=== PATIENT | female | born 1950 | race Caucasian/White ===

== ENCOUNTER 2016-11-29 13:23 | Inpatient (IN) | payer OTHER ==
[~2016-11-29] VITALS: Ht 160 cm; Wt 94.6 kg
[~2016-11-29 13:23] MED LIST: CARV3.122 PO; CLOP1TAB15 PO; DVN80 PO; FENO160T PO; FISH1CAP3 PO; INSU100I2 SC; INSUINJ4 SQ; NRV5 PO; ROSU40TA PO; TRIATAB3 PO
[2016-11-29] MEDS ORDERED: ACETAMINOPHEN 500 MG TAB PO STA ×2 (14:28→14:33)
[2016-11-29] MEDS ORDERED: ONDANSETRON INJ 2 MG/ML 2 ML VIAL IV STA (14:28)
[2016-11-29] MEDS ORDERED: NITROGLYCERIN OINT 2% 1GM PACKET EXT STA (14:33)
--- NOTE | 2016-11-29 14:51 | DIAGNOSTIC IMAGING REPORT ---
SINGLE VIEW CHEST CLINICAL HISTORY: Dyspnea. FINDINGS: An AP, portable, upright chest radiograph is compared to study dated 05/23/2016 and correlated with chest CT dated 07/28/2010. The examination is degraded by portable technique and patient rotation. The heart is top normal for projection and there is atherosclerotic calcification of the thoracic aorta. The pulmonary vasculature is noncongested. Emphysema and chronic interstitial thickening is similar to previous. No airspace consolidation, large pleural effusion, or pneumothorax is seen. There is minimal left basilar atelectasis. The skeletal structures are osteopenic. The bony thorax is grossly intact. IMPRESSION: Emphysema with no acute cardiopulmonary abnormality. Electronically signed by: Carlos A Nazario M.D. 11/29/2016 2:49 PM Dictated Date/Time: 11/29/2016 2:47 PM
[2016-11-29] MEDS ORDERED: OPTIRAY 320 IV PRN (15:00)
[2016-11-29 15:02] LABS: BASO % 0.2 %; BASO ABS # 0.02 K/uL (0-0.2); COMPLETE YES; EOS % 4.4 %; HEMATOCRIT 39.4 % (37-47); IG% 0.2 %; LYMPH % 12.8 %; LYMPH ABS # 1.32 K/uL (1.2-3.4); MEAN CELL VOLUME 82.6 fL (80-100); MEAN CORPUSCULAR HEMOGLOBIN 27.7 pg (25-34); MEAN CORPUSCULAR HGB CONC 33.5 g/dl (32-36); MEAN PLATELET VOLUME 11.7 fL (7.4-10.4); NEUT % 75.4 %; PLATELET COUNT 281 K/uL (130-400); RED BLOOD COUNT 4.77 M/uL (4.2-5.4); WHITE BLOOD COUNT 10.34 K/uL (4.8-10.8)
[2016-11-29 15:13] LABS: INR 1.1 (0.9-1.1); PARTIAL THROMBOPLASTIN RATIO 1.1; PROTHROMBIN TIME (PATIENT) 11.6 SECONDS (9.0-12.0)
[2016-11-29 15:19] LABS: BUN/CREATININE RATIO 29.9 (10-20); CALCIUM 9.3 mg/dl (8.5-10.1); CREATININE 1.8 mg/dl (0.60-1.20); POTASSIUM 4.1 mmol/L (3.5-5.1)
[2016-11-29] MEDS ORDERED: CARV3.122 PO (15:25)
[2016-11-29] MEDS ORDERED: INSU1.2I SQ (15:25)
[2016-11-29] MEDS ORDERED: DVN/160 PO (15:25)
[2016-11-29] MEDS ORDERED: HydrALAZINE HCL 20 MG/ML VIAL IV STA (15:33)
[2016-11-29 15:57] LABS: ALB/GLOB RATIO 0.7 (0.9-2)
[2016-11-29] MEDS ORDERED: NITROGLYCERIN 0.4 MG SL PER TAB CHARGE SL PRN (17:15)
[2016-11-29] MEDS ORDERED: ONDANSETRON INJ 2 MG/ML 2 ML VIAL IV PRN (17:15)
[2016-11-29] MEDS ORDERED: MoRPHine SULFATE 2 MG/ML CARP IV PRN (17:15)
[2016-11-29] MEDS ORDERED: POLYETHYLENE (MIRALAX) 17 GM PACK PO PRN (17:15)
[2016-11-29] MEDS ORDERED: ZOLPIDEM TARTRATE 5 MG TAB PO PRN (17:15)
--- NOTE | 2016-11-29 17:25 | EMERGENCY ROOM VISIT NOTE ---
History Report prepared by Fawn: David Lagos Under the Supervision of: Dr. Carlos A Johnson M.D. First contact with patient: 13:48 Chief Complaint: SHORTNESS OF BREATH Stated Complaint: SHORTNESS OF BREATH Nursing Triage Summary: pt arrived als from home reported sob with cough non productive in route pt developed upper gastric pain/ pt denies History of Present Illness The patient is a 66 year old female with a history of anxiety who presents to the Emergency Room via ambulance with complaints of persistent shortness of breath for the past two days. Today she is unable to lay flat. The patient has noticed increased shortness of breath with exertion. The patient also complains of coughing episodes that produce some phlegm for the past 1.5 weeks. She has not noticed increased leg swelling. She denies chest pain but notes a small area of pressure in her chest, which is worse when she pushes on it. The patient became nauseous en route to the ED. The patient denies any fevers, chills, vomiting, or urinary symptoms. The patient does not wear oxygen at home. The patient had an echocardiogram years ago in [place]. The patient had an ME in the past, which her current symptoms do not resemble. The patient has a history of hypertension. She did not miss her medications this morning. The patient has not had Nitroglycerin recently. She has a left renal artery stent. Source of History: patient Onset: yesterday Position: other (respiratory) Quality: other (short of breath) Timing: other (persistent) Modifying Factors (Worsening): exertion, other (laying flat) Associated Symptoms: + chest pain, + cough, + nausea, No chills, No fevers, No urinary symptoms, No vomiting Review of Systems See HPI for pertinent positives & negatives. A total of 10 systems reviewed and were otherwise negative. Past Medical & Surgical Medical Problems: (1) Chronic kidney disease (2) Diabetes mellitus (3) DVT prophylaxis (4) Hypertension Family History FH: heart disease Social History Smoking Status: Former Smoker Marital Status: Housing Status: lives with family Occupation Status: unemployed Current/Historical Medications Scheduled Carvedilol (Coreg), 3.125 MG PO BID Clopidogrel (Plavix), 75 MG PO DAILY Fenofibrate (Tricor), 160 MG PO DAILY Fish Oil-Cholecalciferol (Fish Oil + D3), 1 CAP PO DAILY Insulin Glargine (Toujeo Solostar), 16 UNITS SQ DAILY Rosuvastatin Calcium (Crestor), 40 MG PO HS Triamterene/Hctz (Triamterene/Hctz 37.5-25MG), 1 TAB PO DAILY Valsartan (Diovan), 160 MG PO DAILY Scheduled PRN Insulin Lispro (Human) (Humalog Kwikpen), UNITS SC UD PRN for BSG Coverage Allergies Coded Allergies: Penicillins (Verified Allergy, Mild, 11/29/16) Sulfa Drugs (Verified Allergy, Mild, RASH, 11/29/16) Meperidine (Verified Adverse Reaction, Intermediate, hallucinates, 11/29/16) Lisinopril (Unverified Adverse Reaction, Unknown, COUGHING, 11/29/16) Physical Exam Vital Signs Date Time Temp Pulse Resp B/P Pulse Ox O2 Delivery O2 Flow Rate FiO2 11/29/16 17:14 167/70 11/29/16 17:10 174/83 11/29/16 17:09 69 14 11/29/16 17:04 63/42 11/29/16 16:59 157/58 11/29/16 16:54 145/59 11/29/16 16:49 146/53 11/29/16 16:44 128/67 11/29/16 16:39 68 28 135/69 96 11/29/16 16:34 148/58 11/29/16 16:29 125/53 11/29/16 16:23 124/51 11/29/16 16:19 120/56 11/29/16 16:16 94 Nasal Cannula 2.0 11/29/16 16:15 119/59 11/29/16 16:14 124/53 11/29/16 16:09 71 22 94 11/29/16 16:09 94 2.0 11/29/16 16:04 70 14 124/61 97 11/29/16 15:59 69 19 140/51 95 11/29/16 15:54 70 18 161/54 96 11/29/16 15:51 152/61 11/29/16 15:49 66 19 169/67 96 11/29/16 15:44 64 20 189/71 96 11/29/16 15:39 64 18 96 11/29/16 15:34 65 22 96 11/29/16 15:29 207/82 11/29/16 15:28 66 19 96 11/29/16 15:23 67 24 97 11/29/16 15:18 66 20 98 11/29/16 15:14 245/115 11/29/16 15:13 73 18 98 11/29/16 15:08 64 18 97 11/29/16 15:03 68 18 98 11/29/16 14:59 237/99 11/29/16 14:58 71 23 97 11/29/16 14:55 233/78 11/29/16 14:43 68 23 94 11/29/16 14:38 72 23 94 11/29/16 14:35 229/98 11/29/16 14:33 69 20 95 11/29/16 14:28 68 21 93 11/29/16 14:23 69 19 94 11/29/16 14:18 70 20 95 11/29/16 14:13 68 24 93 11/29/16 14:08 70 20 94 11/29/16 14:03 70 27 94 11/29/16 13:58 72 20 242/89 94 11/29/16 13:53 73 17 93 11/29/16 13:48 72 17 95 11/29/16 13:43 69 11/29/16 13:43 71 25 93 11/29/16 13:37 36.8 73 20 217/91 93 Room Air 11/29/16 13:33 217/91 Physical Exam GENERAL: Patient is in no acute distress. HEENT: No acute trauma, normocephalic atraumatic, mucous membranes moist, no nasal congestion, no scleral icterus. NECK: No stridor, no adenopathy, no meningismus, trachea is midline. LUNGS: Clear to auscultation bilaterally, no wheeze, no rhonchi, breath sounds equal. HEART: Without murmurs gallops or rubs, regular rate and rhythm. ABDOMEN: Soft, nontender, bowel sounds positive, no hernias, no peritonitis. EXTREMITIES: No cyanosis or edema, full range of motion of all the joints without pain or difficulty, no signs for acute trauma. NEUROLOGIC: Oriented x 3, no acute motor or sensory deficits, no focal weakness. SKIN: No rash, no jaundice, no diaphoresis. Medical Decision & Procedures ER Provider Diagnostic Interpretation: X ray results and stated below per my interpretation and radiologist interpretation. Other radiology results and stated below per my review and radiologist interpretation: SINGLE VIEW CHEST CLINICAL HISTORY: Dyspnea. FINDINGS: An AP, portable, upright chest radiograph is compared to study dated 05/23/2016 and correlated with chest CT dated 07/28/2010. The examination is degraded by portable technique and patient rotation. The heart is top normal for projection and there is atherosclerotic calcification of the thoracic aorta. The pulmonary vasculature is noncongested. Emphysema and chronic interstitial thickening is similar to previous. No airspace consolidation, large pleural effusion, or pneumothorax is seen. There is minimal left basilar atelectasis. The skeletal structures are osteopenic. The bony thorax is grossly intact. IMPRESSION: Emphysema with no acute cardiopulmonary abnormality. Electronically signed by: Carlos A Nazario M.D. 11/29/2016 2:49 PM Dictated Date/Time: 11/29/2016 2:47 PM Laboratory Results 11/29/16 14:50 Red Blood Count 4.77, Mean Corpuscular Volume 82.6, Mean Corpuscular Hemoglobin 27.7, Mean Corpuscular Hemoglobin Concent 33.5, Mean Platelet Volume 11.7, Neutrophils (%) (Auto) 75.4, Lymphocytes (%) (Auto) 12.8, Monocytes (%) (Auto) 7.0, Eosinophils (%) (Auto) 4.4, Basophils (%) (Auto) 0.2, Neutrophils # (Auto) 7.80, Lymphocytes # (Auto) 1.32, Monocytes # (Auto) 0.72, Eosinophils # (Auto) 0.46, Basophils # (Auto) 0.02 11/29/16 14:50 Test 11/29/16 14:50 White Blood Count 10.34 K/uL (4.8-10.8) Red Blood Count 4.77 M/uL (4.2-5.4) Hemoglobin 13.2 g/dL (12.0-16.0) Hematocrit 39.4 % (37-47) Mean Corpuscular Volume 82.6 fL (80-100) Mean Corpuscular Hemoglobin 27.7 pg (25-34) Mean Corpuscular Hemoglobin Concent 33.5 g/dl (32-36) Platelet Count 281 K/uL (130-400) Mean Platelet Volume 11.7 fL (7.4-10.4) Neutrophils (%) (Auto) 75.4 % Lymphocytes (%) (Auto) 12.8 % Monocytes (%) (Auto) 7.0 % Eosinophils (%) (Auto) 4.4 % Basophils (%) (Auto) 0.2 % Neutrophils # (Auto) 7.80 K/uL (1.4-6.5) Lymphocytes # (Auto) 1.32 K/uL (1.2-3.4) Monocytes # (Auto) 0.72 K/uL (0.11-0.59) Eosinophils # (Auto) 0.46 K/uL (0-0.5) Basophils # (Auto) 0.02 K/uL (0-0.2) RDW Standard Deviation 42.6 fL (36.4-46.3) RDW Coefficient of Variation 14.2 % (11.5-14.5) Immature Granulocyte % (Auto) 0.2 % Immature Granulocyte # (Auto) 0.02 K/uL (0.00-0.02) Prothrombin Time 11.6 SECONDS (9.0-12.0) Prothromb Time International Ratio 1.1 (0.9-1.1) Activated Partial Thromboplast Time 28.1 SECONDS (21.0-31.0) Partial Thromboplastin Ratio 1.1 Anion Gap 9.0 mmol/L (3-11) Est Creatinine Clear Calc Drug Dose 33.8 ml/min Estimated GFR () 33.4 Estimated GFR (Non- 28.8 BUN/Creatinine Ratio 29.9 (10-20) Calcium Level 9.3 mg/dl (8.5-10.1) Total Bilirubin 0.4 mg/dl (0.2-1) Aspartate Amino Transf (AST/SGOT) 17 U/L (15-37) Alanine Aminotransferase (ALT/SGPT) 22 U/L (12-78) Alkaline Phosphatase 74 U/L (45-117) Troponin I 0.046 ng/ml (0-0.045) Pro-B-Type Natriuretic Peptide 3492 pg/ml (0-900) Total Protein 8.0 gm/dl (6.4-8.2) Albumin 3.3 gm/dl (3.4-5.0) Globulin 4.7 gm/dl (2.5-4.0) Albumin/Globulin Ratio 0.7 (0.9-2) Laboratory results reviewed by me. Medications Administered Medications (Trade) Dose Ordered Sig/Isaías Route Start Time Stop Time Status Last Admin Dose Admin Acetaminophen (Tylenol Tab) 1,000 mg NOW STAT PO 11/29/16 14:28 11/29/16 14:33 DC 11/29/16 14:28 1,000 MG Ondansetron HCl (Zofran Inj) 4 mg NOW STAT IV 11/29/16 14:28 11/29/16 14:34 DC 11/29/16 14:28 4 MG Nitroglycerin (Nitroglycerin 2% Oint) 1 inch NOW STAT EXT 11/29/16 14:33 11/29/16 14:34 DC 11/29/16 14:33 1 INCH Hydralazine HCl (HydrALAZINE INJ) 10 mg NOW STAT IV 11/29/16 15:33 11/29/16 15:34 DC 11/29/16 15:43 10 MG ECG Indication: SOB/dyspnea Rate (beats per minute): 72 Rhythm: normal sinus Findings: no ectopy, other (LVH) Comparison ECG Date: 25 May 2016 Change: no significant change Change: Unchanged from 25 May 2016. ED Course 1355: The patient was evaluated by my medical student. 1424: The patient was evaluated in room C11b. A complete history and physical exam was performed. 1428: Zofran 4 mg IV, Tylenol 1000 mg PO. 1433: Nitroglycerin 2% 1 inch EXT. 1533: Hydralazine 10 mg IV. 1539: The patient is doing fine. Her blood pressure has improved. 1620: Discussed the case with the [facility]. The patient will be evaluated. 1630: Updated the patient. She verbalized understanding and agreement of the treatment plan. Medical Decision Differential diagnosis includes CHF, acute bronchitis, pneumonia, pneumothorax, cardiac ischemia, ME, anemia, electrolyte imbalance, PE. There is no leukocytosis or worrisome anemia. Renal panel testing shows renal insufficiency but this is baseline. There is no hepatitis or coagulopathy. EKG shows a normal sinus rhythm with LVH, there is a very mild elevation to the cardiac troponin, this could be consistent with cardiac injury or strain. Chest x-ray does not show pneumonia or obvious CHF. BNP is elevated which would be consistent with fluid overload. The patient was given nitro paste, she was given IV hydralazine. She received oral Tylenol. The patient's blood pressure did come down and the nitroglycerin paste was removed. She was given a small amount of IV saline, 250 mL. The patient presents with shortness of breath and some chest pressure. She has a mild elevation to her cardiac troponin. Her blood pressure was high but is now controlled since being medicated. Given the circumstances, admission/ observation is warranted. I spoke with her and case management. The on-call hospitalist was consulted. Consults Time Called: 1615 Consulting Physician: [facility] Returned Call: [phone]: Discussed the case with [facility]. The patient will be evaluated. Impression Primary Impression: SOB (shortness of breath) Additional Impressions: Elevated troponin Precordial chest pain Scribe Attestation The scribe's documentation has been prepared under my direction and personally reviewed by me in its entirety. I confirm that the note above accurately reflects all work, treatment, procedures, and medical decision making performed by me. Departure Information Dispostion Being Evaluated By Hospitalist Referrals Shay Hammond M.D. (PCP) Patient Instructions My [facility] Problem Qualifiers
--- NOTE | 2016-11-29 18:20 | History and Physical ---
History & Physical Date & Time of Service: Nov 29, 2016 at 17:35 Chief Complaint: Shortness Of Breath Primary Care Physician: Shay Hammond M.D. History of Present Illness Source: patient, family Ms. Mcnulty is a 66yo female with a history of CAD s/p PCI with stent in 2009 as well as uncontrolled hypertension and previous renal artery stenting. She was most recently admitted here in April 2016 with a hypertensive emergency. She presented to the ER today complaining of exertional dyspnea and non-productive cough. She says that she actually felt unwell the past couple days. She said she had a sore throat prior to the onset of her shortness of breath. She says the dyspnea initially began with her feeling that she "was slowing down." She also describes having palpitations over the past few days. She denies having any chest pain or discomfort. Today, it became much worse. Even just walking down her hallway, she felt severely dyspneic and felt there "was water in my lungs." On arrival to the ER, she was noted to be hypertensive, with a BP as high as 245/115. Her initial labs were significant for a mildly elevated troponin and an elevated pro-BNP. CXR was read by radiology as showing no pulmonary vascular congestion. She was started on nitroglycerin paste without significant improvement in her symptoms or blood pressure. She was then given IV hydralazine and her blood pressure dropped to as low as 124/61 over the course of an hour. She was then started on a 250cc crystalloid bolus. On my interview, she is complaining of a discomfort in her chest on the left side, which she says is deep inside and "feels like something's not working right." She reports that this feeling is improved with belching and worse with deep breathing. At this point, she is being admitted for further evaluation. 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[email or web address]) Immunizations History of Influenza Vaccine: Yes History of Tetanus Vaccine?: Yes History of Pneumococcal: Yes History of Hepatitis B Vaccine: Unknown Multi-Drug Resistant Organisms History of MDRO: No Allergies Coded Allergies: Penicillins (Verified Allergy, Mild, 2/2/17) Sulfa Drugs (Verified Allergy, Mild, RASH, 11/29/16) Meperidine (Verified Adverse Reaction, Intermediate, hallucinates, 11/29/16) Lisinopril (Unverified Adverse Reaction, Unknown, COUGHING, 11/29/16) Home Medications Scheduled Carvedilol (Coreg), 3.125 MG PO BID Clopidogrel (Plavix), 75 MG PO DAILY Fenofibrate (Tricor), 160 MG PO DAILY Fish Oil-Cholecalciferol (Fish Oil + D3), 1 CAP PO DAILY Insulin Glargine (Toujeo Solostar), 16 UNITS SQ DAILY Rosuvastatin Calcium (Crestor), 40 MG PO HS Triamterene/Hctz (Triamterene/Hctz 37.5-25MG), 1 TAB PO DAILY Valsartan (Diovan), 160 MG PO DAILY Scheduled PRN Insulin Lispro (Human) (Humalog Kwikpen), UNITS SC UD PRN for BSG Coverage Review of Systems Constitutional: No chills, No fever, No sweats Eyes: No problem reported ENT: + sore throat Respiratory: + cough, + dyspnea on exertion, No sputum, No wheezing Cardiovascular: + palpitations, No chest pain, No edema Abdomen: No nausea, No pain, No vomiting Musculoskeletal: No problem reported Genitourinary - Female: No problem reported Neurologic: No numbness/tingling, No weakness Psychiatric: + anxiety (Describes always having a high stress level in her life ) Endocrine: No problem reported Hematologic / Lymphatic: No problem reported Integumentary: No problem reported Physical Exam Vital Signs Date Time Temp Pulse Resp B/P Pulse Ox O2 Delivery O2 Flow Rate FiO2 11/29/16 16:16 94 Nasal Cannula 2.0 11/29/16 16:09 94 2.0 11/29/16 16:04 70 14 124/61 97 11/29/16 15:59 69 19 140/51 95 11/29/16 15:54 70 18 161/54 96 11/29/16 15:51 152/61 11/29/16 15:49 66 19 169/67 96 11/29/16 15:44 64 20 189/71 96 11/29/16 15:39 64 18 96 11/29/16 15:34 65 22 96 11/29/16 15:29 207/82 11/29/16 15:28 66 19 96 11/29/16 15:23 67 24 97 11/29/16 15:18 66 20 98 11/29/16 15:14 245/115 11/29/16 15:13 73 18 98 11/29/16 15:08 64 18 97 11/29/16 15:03 68 18 98 11/29/16 14:59 237/99 11/29/16 14:58 71 23 97 11/29/16 14:55 233/78 11/29/16 14:43 68 23 94 11/29/16 14:38 72 23 94 11/29/16 14:35 229/98 11/29/16 14:33 69 20 95 11/29/16 14:28 68 21 93 11/29/16 14:23 69 19 94 11/29/16 14:18 70 20 95 11/29/16 14:13 68 24 93 11/29/16 14:08 70 20 94 11/29/16 14:03 70 27 94 11/29/16 13:58 72 20 242/89 94 11/29/16 13:53 73 17 93 11/29/16 13:48 72 17 95 11/29/16 13:43 69 11/29/16 13:43 71 25 93 11/29/16 13:37 36.8 73 20 217/91 93 Room Air 11/29/16 13:33 217/91 General Appearance: no apparent distress Eyes: PERRL, sclerae normal ENT: normal ENT inspection Neck: no JVD, no carotid bruits Respiratory/Chest: lungs clear, no respiratory distress Cardiovascular: regular rate, rhythm, no murmur Abdomen/GI: normal bowel sounds, non tender, soft, + pertinent finding (NO abdominal bruit appreciated) Extremities/Musculoskelatal: normal capillary refill, no pedal edema Neurologic/Psych: alert, oriented x 3 Skin: normal color, warm/dry Diagnostics Laboratory Results Results Past 24 Hours Test 11/29/16 14:50 11/29/16 17:20 Range/Units White Blood Count 10.34 4.8-10.8 K/uL Red Blood Count 4.77 4.2-5.4 M/uL Hemoglobin 13.2 12.0-16.0 g/dL Hematocrit 39.4 37-47 % Mean Corpuscular Volume 82.6 80-100 fL Mean Corpuscular Hemoglobin 27.7 25-34 pg Mean Corpuscular Hemoglobin Concent 33.5 32-36 g/dl Platelet Count 281 130-400 K/uL Mean Platelet Volume 11.7 7.4-10.4 fL Neutrophils (%) (Auto) 75.4 % Lymphocytes (%) (Auto) 12.8 % Monocytes (%) (Auto) 7.0 % Eosinophils (%) (Auto) 4.4 % Basophils (%) (Auto) 0.2 % Neutrophils # (Auto) 7.80 1.4-6.5 K/uL Lymphocytes # (Auto) 1.32 1.2-3.4 K/uL Monocytes # (Auto) 0.72 0.11-0.59 K/uL Eosinophils # (Auto) 0.46 0-0.5 K/uL Basophils # (Auto) 0.02 0-0.2 K/uL RDW Standard Deviation 42.6 36.4-46.3 fL RDW Coefficient of Variation 14.2 11.5-14.5 % Immature Granulocyte % (Auto) 0.2 % Immature Granulocyte # (Auto) 0.02 0.00-0.02 K/uL Prothrombin Time 11.6 9.0-12.0 SECONDS Prothromb Time International Ratio 1.1 0.9-1.1 Activated Partial Thromboplast Time 28.1 21.0-31.0 SECONDS Partial Thromboplastin Ratio 1.1 Sodium Level 138 136-145 mmol/L Potassium Level 4.1 3.5-5.1 mmol/L Chloride Level 103 98-107 mmol/L Carbon Dioxide Level 26 21-32 mmol/L Anion Gap 9.0 3-11 mmol/L Blood Urea Nitrogen 54 7-18 mg/dl Creatinine 1.80 0.60-1.20 mg/dl Est Creatinine Clear Calc Drug Dose 33.8 ml/min Estimated GFR () 33.4 Estimated GFR (Non- 28.8 BUN/Creatinine Ratio 29.9 10-20 Random Glucose 167 70-99 mg/dl Calcium Level 9.3 8.5-10.1 mg/dl Total Bilirubin 0.4 0.2-1 mg/dl Aspartate Amino Transf (AST/SGOT) 17 15-37 U/L Alanine Aminotransferase (ALT/SGPT) 22 12-78 U/L Alkaline Phosphatase 74 45-117 U/L Troponin I 0.046 0-0.045 ng/ml Pro-B-Type Natriuretic Peptide 3492 0-900 pg/ml Total Protein 8.0 6.4-8.2 gm/dl Albumin 3.3 3.4-5.0 gm/dl Globulin 4.7 2.5-4.0 gm/dl Albumin/Globulin Ratio 0.7 0.9-2 Diagnostic Radiology SINGLE VIEW CHEST CLINICAL HISTORY: Dyspnea. FINDINGS: An AP, portable, upright chest radiograph is compared to study dated 05/23/2016 and correlated with chest CT dated 07/28/2010. The examination is degraded by portable technique and patient rotation. The heart is top normal for projection and there is atherosclerotic calcification of the thoracic aorta. The pulmonary vasculature is noncongested. Emphysema and chronic interstitial thickening is similar to previous. No airspace consolidation, large pleural effusion, or pneumothorax is seen. There is minimal left basilar atelectasis. The skeletal structures are osteopenic. The bony thorax is grossly intact. IMPRESSION: Emphysema with no acute cardiopulmonary abnormality. EKG Normal sinus rhythm Left atrial enlargement Left ventricular hypertrophy with repolarization abnormality Abnormal ECG When compared with ECG of 25-MAY-2016 06:25, Premature atrial complexes are no longer Present Otherwise no significant change Confirmed by BRANDY RODRIGUEZ ([id number]) on 11/29/2016 3:08:43 PM Impression Assessment and Plan (1) Hypertensive emergency Status: Acute Assessment & Plan: Will avoid dropping blood pressure any further at this point. Will place her back on her usual home medications. She has a history of renal artery stenosis s/p stent. Will check renal artery dopplers now to assure not restenosed. Will check plasma metanephrines given repeated episodes of hypertensive urgency. I also had a long discussion with her regarding the need to exclude untreated sleep apnea as a cause for her uncontrolled BP. She had a sleep study in the past suggestive of mild AVELINO and a nocturnal pulse ox study in 04/2016 indicating she needed nocturnal oxygen. Will ask Nephrology to help guide her work up and management. (2) Elevated troponin Status: Acute Assessment & Plan: I suspect this is related to her uncontrolled hypertension. Doubt ACS at this point, but will trend troponins to exclude. Will ask Cardiology to evaluate her as well. She is already on a beta fartun, statin, ARB and Plavix. She is not on aspirin due to severe epistaxis in the past while on both asa and plavix. (3) SOB (shortness of breath) Status: Acute Assessment & Plan: I suspect this is due to uncontrolled hypertension and underlying lung disease. Her pro-BNP is elevated, but she clinically does not appear to have evidence for heart failure. She says she has never been diagnosed with heart failure in the past. She does have a history of smoking in the past, but is not formally diagnosed with COPD. Her previous CXRs are suggestive of chronic lung disease. She doesn't have any evidence for bronchoconstriction on exam that would need to be treated now, but she should have PFTs on an outpatient basis when her acute issues resolve to further elucidate her suspected pulmonary disease. (4) Chronic kidney disease Status: Chronic Assessment & Plan: Cr is 1.8. She appears to have CKD 3, nearly 4, at baseline. If her renal function remains stable overnight, will continue her ARB. She does not follow up with an outpatient manager stars. She is at very high risk of progression with uncontrolled BP and DM. Will ask Nephro to see. (5) Diabetes mellitus Status: Chronic Assessment & Plan: Will substitute Lantus for her usual Toujeo and aspart sliding scale for her usual lispro sliding scale. Pharm consult for glycemic management. (6) DVT prophylaxis Assessment & Plan: SCDs Level of Care Telemetry Resuscitation Status FULL RESUSCITATION VTE Prophylaxis VTE Risk Assessment Done? Y/N: Yes Risk Level: Low Given or contraindicated: SCD's Social Service Consult None Apply Additional Copies To Shay Hammond M.D.
[2016-11-29] MEDS ORDERED: GLUCOSE 10 TABS/TUBE PO PRN (18:45)
[2016-11-29] MEDS ORDERED: GLUCOSE 40% GEL 15 GM TUBE PO PRN (18:45)
[2016-11-29] MEDS ORDERED: DEXTROSE 50% 50 ML SYR IV PRN (18:45)
[2016-11-29] MEDS ORDERED: GLUCAGON FOR INJ 1 MG VIAL SQ PRN (18:45)
[2016-11-29 19:09] VITALS: BP 211/75; PULSE 73; TEMP 36.6; O2SAT 92
[2016-11-29] MEDS ORDERED: PHARMACY GLYCEMIC MGMT CONSULT PRN (19:52)
--- NOTE | 2016-11-29 20:13 | Pharmacy Progress Note ---
Glycemic Control Intl Consult Date of Service Nov 29, 2016. Scope Glycemic Pharmacist consulted by Dr. Danny De Souza on 11/29/16 for glycemic control and to write orders per LTAC, located within [facility] inpatient glycemic control protocol Objective Weight (Kilograms): 95.500 Accuchecks BSG (last 24hrs): Test 11/29/16 14:50 Random Glucose 167 mg/dl (70-99) Laboratory Data (last 24hrs) Test 11/29/16 14:50 Anion Gap 9.0 mmol/L BUN/Creatinine Ratio 29.9 Blood Urea Nitrogen 54 mg/dl Creatinine 1.80 mg/dl Potassium Level 4.1 mmol/L Sodium Level 138 mmol/L White Blood Count 10.34 K/uL Red Blood Count 4.77 M/uL Hemoglobin 13.2 g/dL Hematocrit 39.4 % Mean Corpuscular Volume 82.6 fL Mean Corpuscular Hemoglobin 27.7 pg Mean Corpuscular Hemoglobin Concent 33.5 g/dl Platelet Count 281 K/uL Mean Platelet Volume 11.7 fL Neutrophils (%) (Auto) 75.4 % Lymphocytes (%) (Auto) 12.8 % Monocytes (%) (Auto) 7.0 % Eosinophils (%) (Auto) 4.4 % Basophils (%) (Auto) 0.2 % Neutrophils # (Auto) 7.80 K/uL Lymphocytes # (Auto) 1.32 K/uL Monocytes # (Auto) 0.72 K/uL Eosinophils # (Auto) 0.46 K/uL Basophils # (Auto) 0.02 K/uL Recent Pertinent Medications Outpatient Anti-diabetic Regimen: * Humalog SS + Toujeo 16 units daily * A1c = 7.6 % from 12/30/15 * An updated A1c is ordered with tomorrow's AM labs Risk Factors for Insulin Resistance: * Diet: AHA, will add DM2 subtype to restrict carb intake Assessment & Plan ASSESSMENT: * ADA & AACE recommend a goal blood sugar range 140-180 mg/dl for the majority of critically ill & non-critically ill patients. However, more stringent targets may be selected in individual cases. * 66 yo female admitted with hypertensive emergency. * Will initiate weight based basal/bolus SQ insulin regimen. * Initial dose of Lantus reduced by 20% to account for transition from Toujeo. Further dosing will be adjusted based upon response. PLAN FOR INPATIENT GLYCEMIC CONTROL: * Start Lantus daily: * 7 units for BSG below 110mg/dl * 13 units for BSG 111mg/dl and greater * Novolog ACHS * Set correction factor to 25 mg/dl/unit * Set carb ratio to 1 unit per 8 grams CHO consumed * Set goal range to Low 110 mg/dL - High 150 mg/dL * Please note that the plan above was derived based on current level of insulin resistance and hospital stress. These recommendations are appropriate for inpatient admission only. Plan of care upon discharge will need to be reassessed to avoid potential outpatient hypo/hyperglycemia. Thank you.
[2016-11-29] MEDS ORDERED: COUGH DROP (SUGAR FREE) LOZ 24 LOZ/1 BOX ONE (20:45)
[2016-11-29] MEDS ORDERED: INSULIN GLARGINE SOLOSTAR 100 UNITS/ML 3 ML PEN SC SCH (21:00)
[2016-11-29] MEDS: INSULIN ASPART 100 UNITS/ML 3 ML PEN SC SCH (21:00)
[2016-11-29] MEDS: ROSUVASTATIN CALCIUM 20 MG TAB PO SCH (21:10)
[2016-11-29] MEDS: CARVEDILOL 3.125 MG TAB PO SCH (21:10)
[2016-11-29 22:29] VITALS: BP 211/75; PULSE 73; TEMP 36.6; O2SAT 92; BMI 37.3
[2016-11-29 23:52] VITALS: BP 113/70; PULSE 76; TEMP 36.5; O2SAT 95
[2016-11-30] VITALS (8 sets, daily range): BP systolic 123–221; BP diastolic 68–104; PULSE 63–77; TEMP 36.6–37; O2SAT 92–94; BMI 36.6
[2016-11-30 06:28] LABS: BASO % 0.4 %; BASO ABS # 0.03 K/uL (0-0.2); COMPLETE YES; EOS % 6.3 %; HEMATOCRIT 35.2 % (37-47); IG% 0.3 %; LYMPH % 17.2 %; LYMPH ABS # 1.23 K/uL (1.2-3.4); MEAN CELL VOLUME 82.4 fL (80-100); MEAN CORPUSCULAR HEMOGLOBIN 27.2 pg (25-34); MEAN PLATELET VOLUME 11.1 fL (7.4-10.4); MONO % 8.8 %; PLATELET COUNT 229 K/uL (130-400); RED BLOOD COUNT 4.27 M/uL (4.2-5.4); WHITE BLOOD COUNT 7.15 K/uL (4.8-10.8)
[2016-11-30 06:57] LABS: ESTIMATED AVERAGE GLUCOSE 206 mg/dl; HA1C FLAG Normal (Normal)
[2016-11-30 07:01] LABS: BUN/CREATININE RATIO 31.8 (10-20); CALCIUM 9.2 mg/dl (8.5-10.1); CREATININE 1.7 mg/dl (0.60-1.20); MAGNESIUM 1.9 mg/dl (1.8-2.4)
[2016-11-30 07:07] LABS: PHOSPHORUS 3.4 mg/dl (2.5-4.9)
[2016-11-30] MEDS ORDERED: INSULIN GLARGINE SQ SCH (09:00)
[2016-11-30] MEDS ORDERED: VALSARTAN 80 MG TAB PO SCH (09:00)
[2016-11-30] MEDS ORDERED: TRIAMTERENE/HCTZ 37.5/25MG TAB PO SCH (09:00)
[2016-11-30] MEDS: INSULIN GLARGINE SOLOSTAR 100 UNITS/ML 3 ML PEN SC SCH (09:55)
[2016-11-30] MEDS: INSULIN ASPART 100 UNITS/ML 3 ML PEN SC SCH ×5 (09:55→20:40)
[2016-11-30] MEDS: OMEGA-3 (PURIFIED FISH OIL) 1 GM CAP PO SCH (09:56)
[2016-11-30] MEDS: CLOPIDOGREL BISULFATE 75 MG TAB PO SCH (09:56)
[2016-11-30] MEDS: CARVEDILOL 3.125 MG TAB PO SCH ×2 (10:00→20:41)
--- NOTE | 2016-11-30 10:52 | DIAGNOSTIC IMAGING REPORT ---
DOPPLER ULTRASOUND OF THE RENAL ARTERIES CLINICAL HISTORY: Hypertensive emergency. COMPARISON STUDY: Abdominal CT dated 10/12/2014. TECHNIQUE: Doppler sonography of the renal arteries was performed to assess renal artery stenosis. Images are reviewed in the transverse and longitudinal planes. The Examination is significantly degraded by large body habitus and overlying bowel. FINDINGS: The kidneys demonstrate mild cortical atrophy and are without hydronephrosis. The right kidney measures 10.4 cm in length and the left kidney measures 10.5 cm in length. A 4 cm cyst arises from the right lower pole. On the right, intrarenal arterial resistive indices range from 0.45 to 0.78. Intrarenal arterial waveforms are normal with brisk upstrokes. The right renal artery was not visualized. On the left, intrarenal arterial resistive indices range from 0.56 to 0.71. Intrarenal arterial waveforms are normal with brisk upstrokes. The proximal and mid portions of the left renal artery were not visualized. The imaged distal left renal arterial waveform is normal, and velocities within the left renal artery measure up to 56 cm/sec. The left renal vein is patent. The abdominal aorta is patent. Velocities within the abdominal aorta measure up to 109 cm/s. IMPRESSION: 1. Nondiagnostic assessment of the right renal artery. The right renal artery was not visualized. 2. Visualized portions of the left renal artery are patent with normal velocities. 3. The kidneys demonstrate mild cortical atrophy. Electronically signed by: Carlos A Nazario M.D. 11/30/2016 10:50 AM Dictated Date/Time: 11/30/2016 10:45 AM
--- NOTE | 2016-11-30 11:02 | Hospitalist Progress Note ---
Hospitalist Progress Note Date of Service Nov 30, 2016. Subjective Pt evaluation today including: conversation w/ patient, physical exam, chart review, lab review, review of studies, review of inpatient medication list Pain: c/o headache this AM Denies chest pain/discomfort. Denies SOB but hasn't really been out of bed to exert herself. Medications Current Inpatient Medications Medications (Trade) Dose Ordered Sig/Isaías Route Start Time Stop Time Status Last Admin Dose Admin Ioversol (Optiray 320) 111 ml UD PRN IV 11/29/16 15:00 12/03/16 14:59 Acetaminophen (Tylenol Tab) 650 mg Q4H PRN PO 11/29/16 17:15 12/29/16 17:14 Zolpidem Tartrate (Ambien Tab) 5 mg HSZ PRN PO 11/29/16 17:15 12/29/16 17:14 Ondansetron HCl (Zofran Inj) 4 mg Q6H PRN IV 11/29/16 17:15 12/29/16 17:14 Nitroglycerin (Nitrostat Tab) 0.4 mg UD PRN SL 11/29/16 17:15 12/29/16 17:14 Morphine Sulfate (MoRPHine SULFATE INJ) 2 mg Q30M PRN IV 11/29/16 17:15 12/13/16 17:14 Polyethylene (Miralax Powder Packet) 17 gm DAILY PRN PO 11/29/16 17:15 12/29/16 17:14 Carvedilol (Coreg Tab) 3.125 mg BID PO 11/29/16 21:00 12/29/16 20:59 11/30/16 10:00 3.125 MG Clopidogrel Bisulfate (plAVix TAB) 75 mg DAILY PO 11/30/16 09:00 12/30/16 08:59 11/30/16 09:56 75 MG Rosuvastatin Calcium (Crestor Tab) 40 mg HS PO 11/29/16 21:00 12/29/16 20:59 11/29/16 21:10 40 MG Triamterene/HCTZ (Maxzide 37.5/25 Tab) 1 tab DAILY PO 11/30/16 09:00 12/30/16 08:59 11/30/16 09:56 1 TAB Miscellaneous Information (Order Awaiting Action) 1 ea QS N/A 11/30/16 00:00 12/30/16 00:00 Fish Oil ([place]-3 (Purified Fish Oil) Cap) 1 gm DAILY PO 11/30/16 09:00 12/30/16 08:59 11/30/16 09:56 1 GM Miscellaneous Information (Consult Glycemic Management Pharmacy) 1 ea UD PRN N/A 11/29/16 19:52 12/29/16 19:51 Insulin Aspart (novoLOG ASPART) SLIDING SCALE G... ACHS SC 11/29/16 21:00 12/29/16 20:59 11/30/16 09:55 5 UNITS Glucose (Glucose 40% Gel) 15-30 GRAMS 15 GRAMS... UD PRN PO 11/29/16 18:45 12/29/16 18:44 Glucose (Glucose Chew Tab) 4-8 Tablets 4 Tabl... UD PRN PO 11/29/16 18:45 12/29/16 18:44 Dextrose (Dextrose 50% 50ML Syringe) 25-50ML OF 50% DW IV FOR... UD PRN IV 11/29/16 18:45 12/29/16 18:44 Glucagon (Glucagon Inj) 1 mg UD PRN SQ 11/29/16 18:45 12/29/16 18:44 Insulin Glargine (Lantus Solostar Pen) 7 UNITS FOR BSG 110MG... DAILY SC 11/30/16 09:00 12/30/16 08:59 11/30/16 09:55 13 UNIT Valsartan (Diovan Tab) 160 mg DAILY PO 11/30/16 09:00 12/30/16 08:59 11/30/16 09:57 160 MG Objective Vital Signs Date Time Temp Pulse Resp B/P Pulse Ox O2 Delivery O2 Flow Rate FiO2 11/30/16 08:00 Room Air 11/30/16 07:35 36.6 66 16 160/81 94 Room Air 11/30/16 04:52 36.8 73 18 145/75 94 Room Air 11/30/16 04:00 Room Air 11/30/16 00:10 Room Air 11/29/16 23:52 36.5 76 16 113/70 95 Room Air 11/29/16 22:29 36.6 73 20 211/75 92 Room Air 11/29/16 19:09 36.6 73 20 211/75 92 Room Air 11/29/16 18:31 36.8 65 16 157/61 96 11/29/16 18:09 65 16 11/29/16 18:03 157/61 11/29/16 17:58 150/62 11/29/16 17:55 156/57 11/29/16 17:49 79/67 11/29/16 17:43 133/72 11/29/16 17:39 67 20 142/54 11/29/16 17:34 149/92 11/29/16 17:29 154/65 11/29/16 17:24 149/57 11/29/16 17:19 155/45 11/29/16 17:14 167/70 11/29/16 17:10 174/83 11/29/16 17:09 69 14 11/29/16 17:04 63/42 11/29/16 16:59 157/58 11/29/16 16:54 145/59 11/29/16 16:49 146/53 11/29/16 16:44 128/67 11/29/16 16:39 68 28 135/69 96 11/29/16 16:34 148/58 11/29/16 16:29 125/53 11/29/16 16:23 124/51 11/29/16 16:19 120/56 11/29/16 16:16 94 Nasal Cannula 2.0 11/29/16 16:15 119/59 11/29/16 16:14 124/53 11/29/16 16:09 71 22 94 11/29/16 16:09 94 2.0 11/29/16 16:04 70 14 124/61 97 11/29/16 15:59 69 19 140/51 95 11/29/16 15:54 70 18 161/54 96 11/29/16 15:51 152/61 11/29/16 15:49 66 19 169/67 96 11/29/16 15:44 64 20 189/71 96 11/29/16 15:39 64 18 96 11/29/16 15:34 65 22 96 11/29/16 15:29 207/82 11/29/16 15:28 66 19 96 11/29/16 15:23 67 24 97 11/29/16 15:18 66 20 98 11/29/16 15:14 245/115 11/29/16 15:13 73 18 98 11/29/16 15:08 64 18 97 11/29/16 15:03 68 18 98 11/29/16 14:59 237/99 11/29/16 14:58 71 23 97 11/29/16 14:55 233/78 11/29/16 14:43 68 23 94 11/29/16 14:38 72 23 94 11/29/16 14:35 229/98 11/29/16 14:33 69 20 95 11/29/16 14:28 68 21 93 11/29/16 14:23 69 19 94 11/29/16 14:18 70 20 95 11/29/16 14:13 68 24 93 11/29/16 14:08 70 20 94 11/29/16 14:03 70 27 94 11/29/16 13:58 72 20 242/89 94 11/29/16 13:53 73 17 93 11/29/16 13:48 72 17 95 11/29/16 13:43 69 11/29/16 13:43 71 25 93 11/29/16 13:37 36.8 73 20 217/91 93 Room Air 11/29/16 13:33 217/91 Physical Exam General Appearance: no apparent distress Eyes: sclerae normal Neck: no JVD Respiratory/Chest: lungs clear, no respiratory distress Cardiovascular: regular rate, rhythm Abdomen: non tender, soft Extremities: no pedal edema Neurologic/Psychiatric: no motor/sensory deficits, alert, oriented x 3 Skin: normal color, warm/dry Laboratory Results Last 24 Hours Test 11/29/16 14:50 11/29/16 20:47 11/29/16 21:10 11/30/16 06:13 White Blood Count 10.34 K/uL 7.15 K/uL Red Blood Count 4.77 M/uL 4.27 M/uL Hemoglobin 13.2 g/dL 11.6 g/dL Hematocrit 39.4 % 35.2 % Mean Corpuscular Volume 82.6 fL 82.4 fL Mean Corpuscular Hemoglobin 27.7 pg 27.2 pg Mean Corpuscular Hemoglobin Concent 33.5 g/dl 33.0 g/dl Platelet Count 281 K/uL 229 K/uL Mean Platelet Volume 11.7 fL 11.1 fL Neutrophils (%) (Auto) 75.4 % 67.0 % Lymphocytes (%) (Auto) 12.8 % 17.2 % Monocytes (%) (Auto) 7.0 % 8.8 % Eosinophils (%) (Auto) 4.4 % 6.3 % Basophils (%) (Auto) 0.2 % 0.4 % Neutrophils # (Auto) 7.80 K/uL 4.79 K/uL Lymphocytes # (Auto) 1.32 K/uL 1.23 K/uL Monocytes # (Auto) 0.72 K/uL 0.63 K/uL Eosinophils # (Auto) 0.46 K/uL 0.45 K/uL Basophils # (Auto) 0.02 K/uL 0.03 K/uL RDW Standard Deviation 42.6 fL 43.2 fL RDW Coefficient of Variation 14.2 % 14.4 % Immature Granulocyte % (Auto) 0.2 % 0.3 % Immature Granulocyte # (Auto) 0.02 K/uL 0.02 K/uL Prothrombin Time 11.6 SECONDS Prothromb Time International Ratio 1.1 Activated Partial Thromboplast Time 28.1 SECONDS Partial Thromboplastin Ratio 1.1 Sodium Level 138 mmol/L 141 mmol/L Potassium Level 4.1 mmol/L 4.0 mmol/L Chloride Level 103 mmol/L 105 mmol/L Carbon Dioxide Level 26 mmol/L 25 mmol/L Anion Gap 9.0 mmol/L 11.0 mmol/L Blood Urea Nitrogen 54 mg/dl 54 mg/dl Creatinine 1.80 mg/dl 1.70 mg/dl Est Creatinine Clear Calc Drug Dose 33.8 ml/min 35.4 ml/min Estimated GFR () 33.4 35.8 Estimated GFR (Non- 28.8 30.9 BUN/Creatinine Ratio 29.9 31.8 Random Glucose 167 mg/dl 154 mg/dl Calcium Level 9.3 mg/dl 9.2 mg/dl Total Bilirubin 0.4 mg/dl Aspartate Amino Transf (AST/SGOT) 17 U/L Alanine Aminotransferase (ALT/SGPT) 22 U/L Alkaline Phosphatase 74 U/L Troponin I 0.046 ng/ml 0.041 ng/ml 0.049 ng/ml Pro-B-Type Natriuretic Peptide 3492 pg/ml Total Protein 8.0 gm/dl Albumin 3.3 gm/dl Globulin 4.7 gm/dl Albumin/Globulin Ratio 0.7 Bedside Glucose 139 mg/dl Hepatitis C Antibody Screen NEG Estimated Average Glucose 206 mg/dl Hemoglobin A1c 8.8 % Phosphorus Level 3.4 mg/dl Magnesium Level 1.9 mg/dl Test 11/30/16 07:28 Bedside Glucose 159 mg/dl Assessment and Plan (1) Hypertensive emergency Assessment & Plan: Await further recommendations from Nephrology regarding need for further work up to exclude secondary cause. Plasma metanephrines and renal artery dopplers are pending. (2) Elevated troponin Assessment & Plan: Troponin elevated, but no MA pattern. This is probably related to severely uncontrolled hypertension. Cardiology consult pending. C/ w Plavix, statin, BB, ARB. She is not on aspirin due to severe epistaxis in the past while on both asa and plavix. (3) SOB (shortness of breath) Assessment & Plan: I suspect this is due to uncontrolled hypertension and possibly undiagnosed underlying lung disease. Her pro-BNP is elevated, but she clinically does not appear to have evidence for heart failure. She says she has never been diagnosed with heart failure in the past. She does have a history of smoking in the past, but is not formally diagnosed with COPD. Her previous CXRs are suggestive of chronic lung disease. She should have PFTs on an outpatient basis when her acute issues resolve to further elucidate her suspected pulmonary disease. (4) Chronic kidney disease Assessment & Plan: Cr stable. ARB continued. Nephro consult pending. (5) Diabetes mellitus Assessment & Plan: Reasonable control with Lantus and sliding scale aspart. Pharm on board for glycemic management. (6) DVT prophylaxis Assessment & Plan: SCDs Continued [facility] stay due to: abnormal vital signs Discharge planning: home
[2016-11-30] MEDS: ACETAMINOPHEN 325 MG TAB PO PRN (13:09)
--- NOTE | 2016-11-30 13:52 | Nephrology Consultation ---
Nephrology Consultation Date & Providers Date of Consultation: Nov 30, 2016. Primary Care Provider: Shay Hammond M.D. Referring Provider: Reason for Consultation Evaluation and management for hypertensive emergency. History of Present Illness Ayana Is a 66-year-old female with past medical history significant for hypertension, history of coronary artery disease, chronic kidney disease, renovascular disease admitted to the hospital with hypertensive emergency. Nephrologic consult was requested for further management. Electronic medical records including labs and imaging are reviewed in detail during patient's visit. Ayana has hypertension for many years, over last few months her blood pressure has been poorly-controlled. recently her Diovan was increased to 180 milligram daily almost 2 months ago, she did notice some improvement but blood pressure still was running high. Yesterday she presented to the ED as she was having significant shortness of breath and her blood pressure was running high. In ED her temp blood pressure was 207/82, she was having shortness of breath and chest x-ray showed no clear pulmonary congestion but emphysema. she was started on nitro home placed and hydralazine significant drop in her blood pressure over a short period of time. Nitro paste was removed and currently she is on p.r.n. hydralazine. she has been continued on Diovan 160, carvedilol 3.125 milligram twice a day and Maxzide. blood pressure still seems to be variable but it has improved. She had renal artery Doppler done, metanephrine was ordered. Creatinine was staying 1.7-1.8 and other electrolyte acceptable. She has history of stage 3 chronic kidney disease side, most likely secondary to renovascular disease. Baseline creatinine has been around 1.5-1.8, on admission creatinine was 1.8 which has been stable and 1.7 this morning. Previously she was seen in the office in 2014 for hypertension, chronic kidney disease and acute kidney injury however after 2 visit she discontinued care and she went to see [facility] nephrology and went for once and has not been seeing anyone since November 2014. Has history of coronary artery disease had a PTCA with stent in 2009. In 2010 as her blood pressure was running high she had an episode of hypertensive emergency with flash pulmonary edema. Cardiac catheterization at that time was unremarkable but she was found to have left renal artery stenosis and had a stent placed with improvement in blood pressure. But lately her blood pressure was again running high, her Diovan was increased to 160 milligram p.o. twice a day 2 months ago without significant improvement in blood pressure. At the beginning of the visit today I asked her whether she would be comfortable to see me or whether she would like to see a different comparative sociology professor but she wanted to continue the care for now. Allergies Coded Allergies: Sulfa Antibiotics (Verified Allergy, Intermediate, RASH, 11/30/16) Penicillins (Verified Allergy, Mild, 11/29/16) Meperidine (Verified Adverse Reaction, Intermediate, hallucinates, 11/29/16) Lisinopril (Verified Adverse Reaction, Mild, COUGHING, 11/30/16) Inpatient Medications Current Inpatient Medications Medications (Trade) Dose Ordered Sig/Isaías Route Start Time Stop Time Status Last Admin Dose Admin Ioversol (Optiray 320) 111 ml UD PRN IV 11/29/16 15:00 12/03/16 14:59 Acetaminophen (Tylenol Tab) 650 mg Q4H PRN PO 11/29/16 17:15 12/29/16 17:14 Zolpidem Tartrate (Ambien Tab) 5 mg HSZ PRN PO 11/29/16 17:15 12/29/16 17:14 Ondansetron HCl (Zofran Inj) 4 mg Q6H PRN IV 11/29/16 17:15 12/29/16 17:14 Nitroglycerin (Nitrostat Tab) 0.4 mg UD PRN SL 11/29/16 17:15 12/29/16 17:14 Morphine Sulfate (MoRPHine SULFATE INJ) 2 mg Q30M PRN IV 11/29/16 17:15 12/13/16 17:14 Polyethylene (Miralax Powder Packet) 17 gm DAILY PRN PO 11/29/16 17:15 12/29/16 17:14 Carvedilol (Coreg Tab) 3.125 mg BID PO 11/29/16 21:00 12/29/16 20:59 11/29/16 21:10 3.125 MG Clopidogrel Bisulfate (plAVix TAB) 75 mg DAILY PO 11/30/16 09:00 12/30/16 08:59 Rosuvastatin Calcium (Crestor Tab) 40 mg HS PO 11/29/16 21:00 12/29/16 20:59 11/29/16 21:10 40 MG Triamterene/HCTZ (Maxzide 37.5/25 Tab) 1 tab DAILY PO 11/30/16 09:00 12/30/16 08:59 Miscellaneous Information (Order Awaiting Action) 1 ea QS N/A 11/30/16 00:00 12/30/16 00:00 Fish Oil (Brice-3 (Purified Fish Oil) Cap) 1 gm DAILY PO 11/30/16 09:00 12/30/16 08:59 Miscellaneous Information (Consult Glycemic Management Pharmacy) 1 ea UD PRN N/A 11/29/16 19:52 12/29/16 19:51 Insulin Aspart (novoLOG ASPART) SLIDING SCALE G... ACHS SC 11/29/16 21:00 12/29/16 20:59 Glucose (Glucose 40% Gel) 15-30 GRAMS 15 GRAMS... UD PRN PO 11/29/16 18:45 12/29/16 18:44 Glucose (Glucose Chew Tab) 4-8 Tablets 4 Tabl... UD PRN PO 11/29/16 18:45 12/29/16 18:44 Dextrose (Dextrose 50% 50ML Syringe) 25-50ML OF 50% DW IV FOR... UD PRN IV 11/29/16 18:45 12/29/16 18:44 Glucagon (Glucagon Inj) 1 mg UD PRN SQ 11/29/16 18:45 12/29/16 18:44 Insulin Glargine (Lantus Solostar Pen) 7 UNITS FOR BSG 110MG... 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 Pertinent positives are noted above. All other systems are negative. Physical Exam Date Time Temp Pulse Resp B/P Pulse Ox O2 Delivery O2 Flow Rate FiO2 11/30/16 07:35 36.6 66 16 160/81 94 Room Air 11/30/16 04:52 36.8 73 18 145/75 94 Room Air 11/30/16 04:00 Room Air 11/30/16 00:10 Room Air 11/29/16 23:52 36.5 76 16 113/70 95 Room Air 11/29/16 22:29 36.6 73 20 211/75 92 Room Air 11/29/16 19:09 36.6 73 20 211/75 92 Room Air 11/29/16 18:31 36.8 65 16 157/61 96 11/29/16 18:09 65 16 11/29/16 18:03 157/61 11/29/16 17:58 150/62 11/29/16 17:55 156/57 11/29/16 17:49 79/67 11/29/16 17:43 133/72 11/29/16 17:39 67 20 142/54 11/29/16 17:34 149/92 11/29/16 17:29 154/65 11/29/16 17:24 149/57 11/29/16 17:19 155/45 11/29/16 17:14 167/70 11/29/16 17:10 174/83 11/29/16 17:09 69 14 11/29/16 17:04 63/42 11/29/16 16:59 157/58 11/29/16 16:54 145/59 11/29/16 16:49 146/53 11/29/16 16:44 128/67 11/29/16 16:39 68 28 135/69 96 11/29/16 16:34 148/58 11/29/16 16:29 125/53 11/29/16 16:23 124/51 11/29/16 16:19 120/56 11/29/16 16:16 94 Nasal Cannula 2.0 11/29/16 16:15 119/59 11/29/16 16:14 124/53 11/29/16 16:09 71 22 94 11/29/16 16:09 94 2.0 11/29/16 16:04 70 14 124/61 97 11/29/16 15:59 69 19 140/51 95 11/29/16 15:54 70 18 161/54 96 11/29/16 15:51 152/61 11/29/16 15:49 66 19 169/67 96 11/29/16 15:44 64 20 189/71 96 11/29/16 15:39 64 18 96 11/29/16 15:34 65 22 96 11/29/16 15:29 207/82 11/29/16 15:28 66 19 96 11/29/16 15:23 67 24 97 11/29/16 15:18 66 20 98 11/29/16 15:14 245/115 11/29/16 15:13 73 18 98 11/29/16 15:08 64 18 97 11/29/16 15:03 68 18 98 11/29/16 14:59 237/99 11/29/16 14:58 71 23 97 11/29/16 14:55 233/78 11/29/16 14:43 68 23 94 11/29/16 14:38 72 23 94 11/29/16 14:35 229/98 11/29/16 14:33 69 20 95 11/29/16 14:28 68 21 93 11/29/16 14:23 69 19 94 11/29/16 14:18 70 20 95 11/29/16 14:13 68 24 93 11/29/16 14:08 70 20 94 11/29/16 14:03 70 27 94 11/29/16 13:58 72 20 242/89 94 11/29/16 13:53 73 17 93 11/29/16 13:48 72 17 95 11/29/16 13:43 69 11/29/16 13:43 71 25 93 11/29/16 13:37 36.8 73 20 217/91 93 Room Air 11/29/16 13:33 217/91 GENERAL: Middle aged female, AAA x 3, healthy-appearing, not in any distress. HEENT: Atraumatic, normocephalic. NECK: Supple, no JVD, no carotid bruit appreciated. ENT: No sinus tenderness MOUTH and THROAT: Moist oral mucosa, no oral ulcer or pharyngeal erythema RESPIRATORY: Normal breathing efforts, no accessory muscle use, clear to auscultation bilaterally, no wheezes or rales. CARDIOVASCULAR: S1, S2 normal, rate rhythm regular. ABDOMEN: Soft, nontender, positive bowel sound. MUSCULOSKELETAL: No joint swelling, erythema or tenderness. Normal range of motion. SKIN: No skin rash EXTREMITY: No lower extremity edema NEURO: No gross focal neurological deficit, speech fluent. PSYCHIATRY: Normal mood and judgment Laboratory Results Last 24 Hours Test 11/29/16 14:50 11/29/16 20:47 11/29/16 21:10 11/30/16 06:13 White Blood Count 10.34 K/uL 7.15 K/uL Red Blood Count 4.77 M/uL 4.27 M/uL Hemoglobin 13.2 g/dL 11.6 g/dL Hematocrit 39.4 % 35.2 % Mean Corpuscular Volume 82.6 fL 82.4 fL Mean Corpuscular Hemoglobin 27.7 pg 27.2 pg Mean Corpuscular Hemoglobin Concent 33.5 g/dl 33.0 g/dl Platelet Count 281 K/uL 229 K/uL Mean Platelet Volume 11.7 fL 11.1 fL Neutrophils (%) (Auto) 75.4 % 67.0 % Lymphocytes (%) (Auto) 12.8 % 17.2 % Monocytes (%) (Auto) 7.0 % 8.8 % Eosinophils (%) (Auto) 4.4 % 6.3 % Basophils (%) (Auto) 0.2 % 0.4 % Neutrophils # (Auto) 7.80 K/uL 4.79 K/uL Lymphocytes # (Auto) 1.32 K/uL 1.23 K/uL Monocytes # (Auto) 0.72 K/uL 0.63 K/uL Eosinophils # (Auto) 0.46 K/uL 0.45 K/uL Basophils # (Auto) 0.02 K/uL 0.03 K/uL RDW Standard Deviation 42.6 fL 43.2 fL RDW Coefficient of Variation 14.2 % 14.4 % Immature Granulocyte % (Auto) 0.2 % 0.3 % Immature Granulocyte # (Auto) 0.02 K/uL 0.02 K/uL Prothrombin Time 11.6 SECONDS Prothromb Time International Ratio 1.1 Activated Partial Thromboplast Time 28.1 SECONDS Partial Thromboplastin Ratio 1.1 Sodium Level 138 mmol/L 141 mmol/L Potassium Level 4.1 mmol/L 4.0 mmol/L Chloride Level 103 mmol/L 105 mmol/L Carbon Dioxide Level 26 mmol/L 25 mmol/L Anion Gap 9.0 mmol/L 11.0 mmol/L Blood Urea Nitrogen 54 mg/dl 54 mg/dl Creatinine 1.80 mg/dl 1.70 mg/dl Est Creatinine Clear Calc Drug Dose 33.8 ml/min 35.4 ml/min Estimated GFR () 33.4 35.8 Estimated GFR (Non- 28.8 30.9 BUN/Creatinine Ratio 29.9 31.8 Random Glucose 167 mg/dl 154 mg/dl Calcium Level 9.3 mg/dl 9.2 mg/dl Total Bilirubin 0.4 mg/dl Aspartate Amino Transf (AST/SGOT) 17 U/L Alanine Aminotransferase (ALT/SGPT) 22 U/L Alkaline Phosphatase 74 U/L Troponin I 0.046 ng/ml 0.041 ng/ml 0.049 ng/ml Pro-B-Type Natriuretic Peptide 3492 pg/ml Total Protein 8.0 gm/dl Albumin 3.3 gm/dl Globulin 4.7 gm/dl Albumin/Globulin Ratio 0.7 Bedside Glucose 139 mg/dl Hepatitis C Antibody Screen NEG Estimated Average Glucose 206 mg/dl Hemoglobin A1c 8.8 % Phosphorus Level 3.4 mg/dl Magnesium Level 1.9 mg/dl Test 11/30/16 07:28 Bedside Glucose 159 mg/dl Impression (1) Stage 3 chronic kidney disease (2) Hypertensive emergency (3) Proteinuria (4) Diabetes mellitus Ayana Is a 66-year-old female with history of hypertension, coronary artery disease, stage 3 chronic kidney disease, renovascular disease status post left renal artery stent admitted to the hospital with hypertensive emergency and SOB. She received nitro paste and hydralazine with improvement in blood pressure but still her blood pressure above goal and has been variable. Currently she is otherwise asymptomatic. She has stage 3 chronic kidney disease , baseline creatinine around 1.5-1.8 and creatinine is at baseline on admission with other electrolyte acceptable. Has history of renovascular disease previously had left renal artery stent placed in 2010. Had coronary artery stent placed in 2009. She has been on carvedilol, of an and Maxzide at home but her blood pressure has been progressively running high over last few months. On admission her troponin was mildly elevated without any significant EKG changes. her shortness of breath resolved and denies any chest pain. Had renal artery Doppler done but the test was inconclusive as right renal artery could not be visualized but at left renal artery without any he stenosis. Also has history of diabetes with proteinuria and diabetes seems to be poorly-controlled. Differentials for hypertensive emergency including left renal artery restenosis or right renal artery stenosis, hyperaldosteronism, pheochromocytoma OR medication noncompliance. Patient reports taking medications serum regularly, other clinical feature is not suggestive of pheochromocytoma. Renal artery Doppler was nondiagnostic. No history of hypokalemia. Recommendations --Suggested increasing carvedilol but patient refused that as she previously could not tolerate higher dose of beta fartun --as blood pressure is seems to be improving, will monitor for now and if her continues to remain significantly elevated, next step would be to increase Diovan to maximum dose. --if needed, discontinue Maxzide and continue on hydrochlorothiazide and add spironolactone --may benefit from Direct vasodilators as blood pressure drops significantly with hydralazine --may need to consider CTA or angiogram for definitive evaluation of renal artery is as Doppler was inconclusive --will check TSH, aldosterone and random cortisol Thank you for allowing me to participate in your patient's care. Will follow. This chart was completed utilizing [employer] Speech and voice recognition software. Grammatical errors, random word insertions, pronoun errors and incomplete sentences are occasional consequences of this system. Any questions or concerns about the content, text or information contained within the body of this dictation should be addressed directly to the physician for clarification.
--- NOTE | 2016-11-30 15:44 | CARDIOLOGY CONSULTATION ---
DATE OF CONSULTATION: 11/30/2016 PRIMARY PHYSICIAN: Shay Hammond MD ATTENDING PHYSICIAN: Danny De Souza MD CONSULTATION: Dionisio Knott MD HISTORY OF PRESENT ILLNESS: The patient is a 66-year-old white female. She has a history of hypertension, dyslipidemia, type 2 diabetes mellitus, coronary artery disease, chronic kidney disease, and renal artery stenosis. The patient states that she was in her normal state of health until a few weeks ago. Since then, she has had progressively worsening dyspnea. Yesterday, the dyspnea markedly worsened. She had dyspnea walking only approximately 10-20 feet. She describes it as a "drowning in water." Because of this, she called emergency medical services and was brought to [facility]. On arrival to the Emergency Department, she was found to have a blood pressure of 217/91. She was given topical nitrates. This had no significant effect on her blood pressure. Subsequent blood pressure was as high as 245/115. She was then given intravenous hydralazine, which lowered her pressure to 124/61. She was subsequently admitted to the telemetry unit. She was placed on her usual outpatient antihypertensive medications and doses. Since admission, she states she has had resolution of her dyspnea. Over the past 2 weeks, she has had worsening orthopnea. Normally, she sleeps with 2 pillows. No definite PND. In the 4-5 days prior to admission, she has been experiencing palpitations. She describes these as premature beats. No sustained palpitations. No lightheadedness or syncope. No cerebrovascular complaints. She was not experiencing any headaches until receiving a topical nitrate yesterday. She denied any chest pain or any other anginal type pains. She states that she has been compliant with her medications. She admits to noncompliance with a low sodium diet. The patient's coronary artery disease history dates to August of 2012. While vacationing in [facility], she developed chest pressure radiating into both shoulders and her neck. She was evaluated at [facility]. She was told that she had elevation of cardiac enzymes. She underwent a cardiac catheterization and subsequent deployment of a coronary artery stent. This stent was deployed in a left posterolateral artery. The stent was a 3 x 23 mm Xience drug-eluting stent. She states that since this stent procedure, she has had no further complaints of any type of chest, shoulder, or neck discomfort. Again, while vacationing in [facility] in August of 2014, she had severe dyspnea. She was again evaluated and hospitalized at [facility]. At first, it was felt that she could have an acute coronary process. Cardiac catheterization was performed. She reports that her stent site was patent and no new coronary artery stenoses or occlusions were noted. She did have markedly elevated blood pressure at that time. Renal angiography was performed. She was found to have a severe ostial left renal artery stenosis. She then underwent deployment of a 5.5 x 15-mm stent in the left renal artery. This was a Herculink Elite stent. She was admitted to [facility] on 05/24/2016 with hypertensive emergency. At that time, her blood pressure was reported to be as high as 259/92 and 239/106. An echocardiogram performed during that admission revealed severe LVH, LV ejection fraction 65%, normal LV wall motion, and no significant valvular regurgitation. Evidence of left ventricular diastolic dysfunction. During the admission, her troponin I was elevated up to 0.050. The patient states that prior to 2 weeks ago, she has been feeling well and in her usual state of health. She was not experiencing any dyspnea at rest or with her normal activities. She did have 2-pillow orthopnea. Over the past several days, she has felt that she has retained fluid. She has swelling of her legs. She feels that she has had an increase in her abdominal girth. PAST MEDICAL HISTORY: 1. Coronary artery disease as above. 2. Renovascular disease as documented above. 3. Type 2 diabetes mellitus, insulin dependent. 4. Hypertension. 5. Dyslipidemia. 6. History of diverticulosis and diverticulitis. PAST SURGICAL HISTORY: 1. As above. 2. Colonoscopy with biopsy in December 2006. ALLERGIES AND ADVERSE DRUG REACTIONS: SULFA, PENICILLIN, LISINOPRIL AND ASPIRIN. WHILE ON DUAL ANTIPLATELET THERAPY WITH ASPIRIN AND CLOPIDOGREL, SHE HAD SEVERE AND RECURRENT NOSEBLEEDS. THESE RESOLVED WITH DISCONTINUATION OF ASPIRIN. EVEN ON A STAGGERED DOSE OF ASPIRIN EVERY FEW DAYS, SHE STILL HAD NOSEBLEEDS. SOCIAL HISTORY: The patient is a . Two adult sons. Former cigarette smoker. She does not drink alcohol. FAMILY HISTORY: She states her mother had a myocardial infarction when she was in her 40s. Family history of hypertension. MEDICATIONS: At time of admission were carvedilol 3.125 mg b.i.d., clopidogrel 75 mg daily, Tricor 160 mg daily, fish oil 1 cap daily, Glargine insulin 16 units subQ daily, rosuvastatin 40 mg at bedtime, triamterene/HCTZ 37.5/25 one daily, and valsartan 160 mg daily. CURRENT MEDICATIONS: Clopidogrel 75 mg daily, triamterene/HCTZ 37.5/25 one daily, fish oil 1 gram daily, Lantus insulin daily, valsartan 160 mg daily, carvedilol 3.125 mg daily, rosuvastatin 40 mg at bedtime, and several p.r.n. medications. REVIEW OF SYSTEMS: 1. As above. 2. No focal motor weakness. No acute visual changes. 3. Sore throat 2 weeks ago. This has since resolved. 4. Nonproductive cough. 5. Occasional nausea. No abdominal pain. 6. No symptoms of GI bleeding. 7. No other bleeding complaints. 8. Nocturia 2-3 times per night. This has been stable for the past 1-1/2 to 2 years. She denies any other urinary complaints. PHYSICAL EXAMINATION: GENERAL: The patient is sitting up in her bed. No distress. VITAL SIGNS: Most recent vital signs show temperature 36.8 orally, pulse 71, blood pressure 123/68, and pulse oximetry on room air 92%. HEAD: Normal. EYES: Pupils equal and round. Anicteric. Conjunctivae normal. NECK: No jugular venous distension. Carotids 2/2 bilaterally. Normal upstroke. No bruits. LUNGS: Clear. No rales or wheezes. Normal respiratory effort. HEART: PMI not palpable. No lifts or heaves. Regular rate and rhythm. S1 and S2 normal. No S3 or S4. Grade 1/6 systolic murmur at the second right intercostal space and left lower sternal border. No diastolic murmur or rub. ABDOMEN: Soft. Nontender. No palpable masses or organomegaly. No bruits. EXTREMITIES: 1+ pretibial edema bilaterally. No calf tenderness. No cyanosis or clubbing. PULSES: Distal pulses in all extremities strongly palpable. NEUROLOGICAL: Alert and oriented x3. Motor grossly intact. PSYCHIATRIC: Affect is normal. DATA: The electrocardiogram on 11/29/2016 reviewed by me. Sinus rhythm, left atrial enlargement, left ventricular hypertrophy with repolarization abnormalities. Prominent T inversions in I, aVL, II, and V4-V6. Chest x-ray reviewed by me. No evidence of congestive heart failure or infiltrate. Renal ultrasound performed today. Report states nondiagnostic assessment of right renal artery. It states that the right renal artery was not visualized. However, it was reported that infrarenal arterial waveforms were normal in the right renal artery. Visualized portions of left renal artery are patent with normal velocities. Mild cortical atrophy noted. LABORATORIES: On admission revealed BUN of 54 and creatinine 1.80. Today, BUN is 54 and creatinine 1.70. Sodium 141, potassium 4.0, carbon dioxide 25, random glucose 154, and magnesium 1.9. Hemoglobin A1c 8.8. Troponin I's have been 0.046, 0.041, and 0.049. Her creatinine in 2009 was as high as 1.5. In 2013, it was 1.67. In 2014, reported to as high as 2.30. In April of 2016, creatinine was 1.70 and 1.90. ASSESSMENT: 1. Severe hypertension on admission yesterday. This was accompanied with severe dyspnea. Physical exams performed by the Emergency Department physician and the admitting physician reported clear lung chaudhry. Chest x-ray without evidence of congestive heart failure. Her ProBNP was elevated at 3492. Since admission, her blood pressure has markedly improved. Most recent blood pressure late this morning was normal. This is on her usual outpatient antihypertensive medications and doses. Prior echocardiogram in April of 2016 revealed severe left ventricular hypertrophy and left ventricular diastolic dysfunction. With the hypertension yesterday, she had no accompanying symptoms of anginal type chest discomfort. No cerebrovascular complaints. 2. Elevated pro-BNP yesterday. This would not be unexpected in light of her known severe left ventricular hypertrophy and the severe hypertension yesterday. As stated above, no evidence of congestive heart failure in regards to pulmonary vascular congestion was noted on exams yesterday. Today, she has no evidence of pulmonary vascular congestion on exam. Chest x-ray without evidence of heart failure. Oxygen saturations are normal on room air. 3. No anginal type chest discomfort. In the past, she has had anginal type symptoms. She has a stent in her left posterolateral artery. Her electrocardiogram shows significant T inversions. However, these are consistent with repolarization abnormality from her left ventricular hypertrophy. She has significant voltage for left ventricular hypertrophy. The T-wave inversions are expected with secondary repolarization abnormalities with severe left ventricular hypertrophy. Her troponin I's are minimally elevated. This would not be unexpected in light of her severe left ventricular hypertrophy and the markedly elevated blood pressure yesterday. Both these would cause a significant myocardial oxygen demand. I do not suspect an acute coronary process. 4. No neurologic symptoms of any significance with her hypertension yesterday. She developed a headache after receiving topical nitrates yesterday. 5. Chronic kidney disease. Her creatinine today is actually at its baseline. 6. History of left renal artery stenosis treated with a stent. Ultrasound performed today shows no evidence of any significant stenosis in the left renal artery. RECOMMENDATIONS: 1. Repeat echocardiogram today. Reassess left ventricular wall thickness and wall motion. 2. Continue clopidogrel. She declines to receive any aspirin therapy. She states that the combination of both to clopidogrel and aspirin caused her to have excessive bleeding from her nose. 3. Continue rosuvastatin. 4. Management of antihypertensive doses by nephrology domestic travel consultant. It has been recommended by the nephrology consult that her valsartan be increased to 320 mg daily and that her diuretic be switched to hydrochlorothiazide/spironolactone. 5. Other than repeating the echocardiogram, no other cardiac testing at this time. 6. The patient requested that she have outpatient cardiology followup with me. She has not seen any assistant research scientist in the area. This will be arranged. Thank you for asking me to see this patient in cardiology consultation. OLVIN
[2016-11-30 17:17] LABS: URINE APPEARANCE CLOUDY (CLEAR); URINE BILIRUBIN NEG (NEG); URINE COLOR YELLOW; URINE NITRITE NEG (NEG); URINE SPECIFIC GRAVITY 1.017 (1.000-1.030); UROBILINOGEN NEG (NEG)
[2016-11-30 17:18] LABS: MANUAL MICROSCOPIC REQUIRED? NO; REVIEW REQ? NO
[2016-11-30 18:11] LABS: URINE PROTIEN/CREAT RATIO 0.7 (0-0.2); URINE TOTAL PROTEIN 58.5 mg/dl (0-11.9)
[2016-11-30] MEDS: ROSUVASTATIN CALCIUM 20 MG TAB PO SCH (20:41)
[2016-12-01] VITALS (11 sets, daily range): BP systolic 107–193; BP diastolic 53–108; PULSE 62–87; TEMP 36.6–37; O2SAT 91–95
[2016-12-01 07:12] LABS: BUN/CREATININE RATIO 31.2 (10-20); CALCIUM 9.5 mg/dl (8.5-10.1); CREATININE 1.7 mg/dl (0.60-1.20); MAGNESIUM 2.1 mg/dl (1.8-2.4); POTASSIUM 3.9 mmol/L (3.5-5.1)
[2016-12-01] MEDS: CARVEDILOL 3.125 MG TAB PO SCH ×2 (07:48→19:10)
[2016-12-01] MEDS: VALSARTAN 80 MG TAB PO SCH (07:48)
[2016-12-01] MEDS: FENOFIBRATE 160 MG TAB PO SCH (07:49)
[2016-12-01] MEDS: OMEGA-3 (PURIFIED FISH OIL) 1 GM CAP PO SCH (07:50)
[2016-12-01] MEDS: CLOPIDOGREL BISULFATE 75 MG TAB PO SCH (07:50)
[2016-12-01] MEDS: INSULIN ASPART 100 UNITS/ML 3 ML PEN SC SCH ×4 (08:12→21:05)
[2016-12-01] MEDS: INSULIN GLARGINE SOLOSTAR 100 UNITS/ML 3 ML PEN SC SCH ×2 (08:13→09:00)
[2016-12-01] MEDS ORDERED: SPIRONOLACTONE/HCTZ 25-25 PO SCH (09:00)
--- NOTE | 2016-12-01 11:50 | Nephrology Progress Note ---
Nephrology Progress Note Date of Service Dec 01, 2016. Chief Complaint F/U for hypertensive urgency. Subjective Ayana was seen and examined room this morning. Blood pressure been extremely variable yesterday she another episode when blood pressure systolic went above 200 and diastolic was 108 which been slightly improving. This morning she received Diovan 320 milligram blood pressure slightly improved after that. Electrolyte remain stable with stable renal function. Currently she asymptomatic, denies any further episode dyspnea or headache. Review of Systems A complete review of systems was performed. Pertinent positives are noted above. All other systems are negative. Vital Signs Last 8 Hrs Date Time Temp Pulse Resp B/P Pulse Ox O2 Delivery O2 Flow Rate FiO2 12/01/16 07:02 36.8 62 18 184/108 95 Room Air 12/01/16 04:25 36.8 72 18 161/92 94 Room Air 12/01/16 04:00 Room Air I & O 24-Hour Column 12/01/16 08:00 Intake Total 1235 ml Output Total 650 ml Balance 585 ml Last Recorded Weight Weight (Kilograms): 94.300 Physical Exam GENERAL: middle aged, female, AAA x 3, not in any distress. NECK: Supple, no JVD. RESPIRATORY: Normal breathing efforts, no accessory muscle use, clear to auscultation bilaterally, no wheezes or rales. CARDIOVASCULAR: S1, S2 normal, rate rhythm regular. EXTREMITY: No lower extremity edema NEURO: speech fluent. . 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[employer]) Laboratory Results Past 24 Hours 12/01/16 06:16 Test 11/30/16 12:18 11/30/16 16:13 11/30/16 16:35 11/30/16 20:07 Bedside Glucose 214 mg/dl (70-90) 149 mg/dl (70-90) 244 mg/dl (70-90) Urine Color YELLOW Urine Appearance CLOUDY (CLEAR) Urine pH 5.0 (4.5-7.5) Urine Specific [place] 1.017 (1.000-1.030) Urine Protein 1+ (NEG) Urine Glucose (UA) 3+ (NEG) Urine Ketones NEG (NEG) Urine Occult Blood NEG (NEG) Urine Nitrite NEG (NEG) Urine Bilirubin NEG (NEG) Urine Urobilinogen NEG (NEG) Urine Leukocyte Esterase NEG (NEG) Urine WBC (Auto) 1-5 /hpf (0-5) Urine RBC (Auto) 0-4 /hpf (0-4) Urine Hyaline Casts (Auto) 1-5 /lpf (0-5) Urine Epithelial Cells (Auto) 10-20 /lpf (0-5) Urine Bacteria (Auto) 1+ (NEG) Urine Random Creatinine 87.0 mg/dl Urine Random Total Protein 58.5 mg/dl (0-11.9) Urine Protein/Creatinine Ratio 0.7 (0-0.2) Test 12/01/16 06:16 12/01/16 07:25 Anion Gap 10.0 mmol/L (3-11) Est Creatinine Clear Calc Drug Dose 35.5 ml/min Estimated GFR () 35.8 Estimated GFR (Non- 30.9 BUN/Creatinine Ratio 31.2 (10-20) Calcium Level 9.5 mg/dl (8.5-10.1) Magnesium Level 2.1 mg/dl (1.8-2.4) Random Cortisol 18.86 mcg/dl Bedside Glucose 143 mg/dl (70-90) Allergies Coded Allergies: Sulfa Antibiotics (Verified Allergy, Intermediate, RASH, 11/30/16) Penicillins (Verified Allergy, Mild, 11/29/16) Meperidine (Verified Adverse Reaction, Intermediate, hallucinates, 11/29/16) Lisinopril (Verified Adverse Reaction, Mild, COUGHING, 11/30/16) Medications Current Inpatient Medications Medications (Trade) Dose Ordered Sig/Isaías Route Start Time Stop Time Status Last Admin Dose Admin Ioversol (Optiray 320) 111 ml UD PRN IV 11/29/16 15:00 12/03/16 14:59 Acetaminophen (Tylenol Tab) 650 mg Q4H PRN PO 11/29/16 17:15 12/29/16 17:14 11/30/16 13:09 650 MG Zolpidem Tartrate (Ambien Tab) 5 mg HSZ PRN PO 11/29/16 17:15 12/29/16 17:14 Ondansetron HCl (Zofran Inj) 4 mg Q6H PRN IV 11/29/16 17:15 12/29/16 17:14 Nitroglycerin (Nitrostat Tab) 0.4 mg UD PRN SL 11/29/16 17:15 12/29/16 17:14 Morphine Sulfate (MoRPHine SULFATE INJ) 2 mg Q30M PRN IV 11/29/16 17:15 12/13/16 17:14 Polyethylene (Miralax Powder Packet) 17 gm DAILY PRN PO 11/29/16 17:15 12/29/16 17:14 Carvedilol (Coreg Tab) 3.125 mg BID PO 11/29/16 21:00 12/29/16 20:59 12/01/16 07:48 3.125 MG Clopidogrel Bisulfate (plAVix TAB) 75 mg DAILY PO 11/30/16 09:00 12/30/16 08:59 12/01/16 07:50 75 MG Rosuvastatin Calcium (Crestor Tab) 40 mg HS PO 11/29/16 21:00 12/29/16 20:59 11/30/16 20:41 40 MG Fish Oil (Thida-3 (Purified Fish Oil) Cap) 1 gm DAILY PO 11/30/16 09:00 12/30/16 08:59 12/01/16 07:50 1 GM Miscellaneous Information (Consult Glycemic Management Pharmacy) 1 ea UD PRN N/A 11/29/16 19:52 12/29/16 19:51 Insulin Aspart (novoLOG ASPART) SLIDING SCALE G... ACHS SC 11/29/16 21:00 12/29/16 20:59 12/01/16 08:12 6 UNITS Glucose (Glucose 40% Gel) 15-30 GRAMS 15 GRAMS... UD PRN PO 11/29/16 18:45 12/29/16 18:44 Glucose (Glucose Chew Tab) 4-8 Tablets 4 Tabl... UD PRN PO 11/29/16 18:45 12/29/16 18:44 Dextrose (Dextrose 50% 50ML Syringe) 25-50ML OF 50% DW IV FOR... UD PRN IV 11/29/16 18:45 12/29/16 18:44 Glucagon (Glucagon Inj) 1 mg UD PRN SQ 11/29/16 18:45 12/29/16 18:44 Fenofibrate (Fenofibrate) 160 mg DAILY PO 12/01/16 09:00 12/31/16 08:59 12/01/16 07:49 160 MG Hydralazine HCl (HydrALAZINE INJ) 5 mg Q6H PRN IV. 12/01/16 00:00 12/31/16 00:00 Valsartan (Diovan Tab) 320 mg DAILY PO 12/01/16 09:00 12/31/16 08:59 12/01/16 07:48 320 MG HCTZ/ Spironolactone (Aldactazide 25/ 25 Tab) 1 tab DAILY PO 12/01/16 09:00 12/31/16 08:59 12/01/16 07:47 1 TAB Insulin Glargine (Lantus Solostar Pen) SEE PROTOCOL TEXT DAILY SC 12/01/16 09:00 12/31/16 08:59 Insulin Glargine (Lantus Solostar Pen) 3 unit TODAY@1200 SC 12/01/16 12:00 12/01/16 14:00 Impression (1) Stage 3 chronic kidney disease (2) Hypertensive emergency (3) Proteinuria (4) Diabetes mellitus Ayana Is a 66-year-old female with history of hypertension, coronary artery disease, stage 3 chronic kidney disease, renovascular disease status post left renal artery stent admitted to the hospital with hypertensive emergency and SOB. She received nitro paste and hydralazine with improvement in blood pressure but still her blood pressure above goal and has been variable. Currently she is otherwise asymptomatic. She has stage 3 chronic kidney disease , baseline creatinine around 1.5-1.8 and creatinine is at baseline on admission with other electrolyte acceptable. Has history of renovascular disease previously had left renal artery stent placed in 2010. Had coronary artery stent placed in 2009. She has been on carvedilol, of an and Maxzide at home but her blood pressure has been progressively running high over last few months. On admission her troponin was mildly elevated without any significant EKG changes. her shortness of breath resolved and denies any chest pain. Had renal artery Doppler done but the test was inconclusive as right renal artery could not be visualized but at left renal artery without any he stenosis. Also has history of diabetes with proteinuria and diabetes seems to be poorly-controlled. Differentials for hypertensive emergency including left renal artery restenosis or right renal artery stenosis, hyperaldosteronism, pheochromocytoma OR medication noncompliance. Patient reports taking medications serum regularly, other clinical feature is not suggestive of pheochromocytoma. Renal artery Doppler was nondiagnostic. No history of hypokalemia. Recommendations --continue on Diovan 320 milligram --start on chlorthalidone 25 milligram and increase spironolactone to 50 mg /d titrate dose to 100 if not controlled, may benefit from Direct vasodilators as blood pressure drops significantly with hydralazine and can be considered in future --may need to consider CTA or angiogram for definitive evaluation of rt renal artery is as Doppler was inconclusive but would considered that only workup for pheochromocytoma and other secondary causes negative and blood pressure continues to be above goal after maximizing optimal medical therapy. --pending aldosterone, workup for pheochromocytoma, normal TSH and random cortisol Will follow.
[2016-12-01] MEDS ORDERED: INSULIN GLARGINE SOLOSTAR 100 UNITS/ML 3 ML PEN SC SCH (12:00)
--- NOTE | 2016-12-01 12:19 | Hospitalist Progress Note ---
Hospitalist Progress Note Date of Service Dec 01, 2016. Subjective Pt evaluation today including: conversation w/ patient, physical exam, lab review, conversation w/ science consultant, review of inpatient medication list Medications Current Inpatient Medications Medications (Trade) Dose Ordered Sig/Isaías Route Start Time Stop Time Status Last Admin Dose Admin Ioversol (Optiray 320) 111 ml UD PRN IV 11/29/16 15:00 12/03/16 14:59 Acetaminophen (Tylenol Tab) 650 mg Q4H PRN PO 11/29/16 17:15 12/29/16 17:14 11/30/16 13:09 650 MG Zolpidem Tartrate (Ambien Tab) 5 mg HSZ PRN PO 11/29/16 17:15 12/29/16 17:14 Ondansetron HCl (Zofran Inj) 4 mg Q6H PRN IV 11/29/16 17:15 12/29/16 17:14 Nitroglycerin (Nitrostat Tab) 0.4 mg UD PRN SL 11/29/16 17:15 12/29/16 17:14 Morphine Sulfate (MoRPHine SULFATE INJ) 2 mg Q30M PRN IV 11/29/16 17:15 12/13/16 17:14 Polyethylene (Miralax Powder Packet) 17 gm DAILY PRN PO 11/29/16 17:15 12/29/16 17:14 Carvedilol (Coreg Tab) 3.125 mg BID PO 11/29/16 21:00 12/29/16 20:59 12/01/16 07:48 3.125 MG Clopidogrel Bisulfate (plAVix TAB) 75 mg DAILY PO 11/30/16 09:00 12/30/16 08:59 12/01/16 07:50 75 MG Rosuvastatin Calcium (Crestor Tab) 40 mg HS PO 11/29/16 21:00 12/29/16 20:59 11/30/16 20:41 40 MG Fish Oil ([place]-3 (Purified Fish Oil) Cap) 1 gm DAILY PO 11/30/16 09:00 12/30/16 08:59 12/01/16 07:50 1 GM Miscellaneous Information (Consult Glycemic Management Pharmacy) 1 ea UD PRN N/A 11/29/16 19:52 12/29/16 19:51 Insulin Aspart (novoLOG ASPART) SLIDING SCALE G... ACHS SC 11/29/16 21:00 12/29/16 20:59 12/01/16 08:12 6 UNITS Glucose (Glucose 40% Gel) 15-30 GRAMS 15 GRAMS... UD PRN PO 11/29/16 18:45 12/29/16 18:44 Glucose (Glucose Chew Tab) 4-8 Tablets 4 Tabl... UD PRN PO 11/29/16 18:45 12/29/16 18:44 Dextrose (Dextrose 50% 50ML Syringe) 25-50ML OF 50% DW IV FOR... UD PRN IV 11/29/16 18:45 12/29/16 18:44 Glucagon (Glucagon Inj) 1 mg UD PRN SQ 11/29/16 18:45 12/29/16 18:44 Fenofibrate (Fenofibrate) 160 mg DAILY PO 12/01/16 09:00 12/31/16 08:59 12/01/16 07:49 160 MG Hydralazine HCl (HydrALAZINE INJ) 5 mg Q6H PRN IV. 12/01/16 00:00 12/31/16 00:00 Valsartan (Diovan Tab) 320 mg DAILY PO 12/01/16 09:00 12/31/16 08:59 12/01/16 07:48 320 MG Insulin Glargine (Lantus Solostar Pen) SEE PROTOCOL TEXT DAILY SC 12/01/16 09:00 12/31/16 08:59 Insulin Glargine (Lantus Solostar Pen) 3 unit TODAY@1200 CA 12/01/16 12:00 12/01/16 14:00 Spironolactone (Aldactone Tab) 50 mg QAM PO 12/02/16 09:00 01/01/17 08:59 UNV Chlorthalidone (Hygroton Tab) 25 mg QAM PO 12/02/16 09:00 01/01/17 08:59 UNV Objective Vital Signs Date Time Temp Pulse Resp B/P Pulse Ox O2 Delivery O2 Flow Rate FiO2 12/01/16 11:20 36.6 64 20 177/91 95 12/01/16 10:37 187/87 12/01/16 08:00 Room Air 12/01/16 07:02 36.8 62 18 184/108 95 Room Air 12/01/16 04:25 36.8 72 18 161/92 94 Room Air 12/01/16 04:00 Room Air 12/01/16 00:17 12/01/16 00:01 62 164/85 12/01/16 00:00 Room Air 11/30/16 23:13 36.7 77 18 208/83 92 Room Air 221/104 11/30/16 23:08 221/104 11/30/16 23:08 208/83 11/30/16 20:36 63 184/83 11/30/16 20:00 Room Air 11/30/16 19:37 36.8 63 18 153/81 92 Room Air 11/30/16 16:00 Room Air 11/30/16 14:48 37.0 68 20 125/74 94 Physical Exam General Appearance: no apparent distress Respiratory/Chest: lungs clear, no respiratory distress Cardiovascular: regular rate, rhythm Abdomen: non tender, soft Extremities: no pedal edema Neurologic/Psychiatric: alert, oriented x 3 Skin: warm/dry Laboratory Results Last 24 Hours Test 11/30/16 12:18 11/30/16 16:13 11/30/16 16:35 11/30/16 20:07 Bedside Glucose 214 mg/dl 149 mg/dl 244 mg/dl Urine Color YELLOW Urine Appearance CLOUDY Urine pH 5.0 Urine Specific [place] 1.017 Urine Protein 1+ Urine Glucose (UA) 3+ Urine Ketones NEG Urine Occult Blood NEG Urine Nitrite NEG Urine Bilirubin NEG Urine Urobilinogen NEG Urine Leukocyte Esterase NEG Urine WBC (Auto) 1-5 /hpf Urine RBC (Auto) 0-4 /hpf Urine Hyaline Casts (Auto) 1-5 /lpf Urine Epithelial Cells (Auto) 10-20 /lpf Urine Bacteria (Auto) 1+ Urine Random Creatinine 87.0 mg/dl Urine Random Total Protein 58.5 mg/dl Urine Protein/Creatinine Ratio 0.7 Test 12/01/16 06:16 12/01/16 07:25 12/01/16 11:37 Sodium Level 141 mmol/L Potassium Level 3.9 mmol/L Chloride Level 105 mmol/L Carbon Dioxide Level 26 mmol/L Anion Gap 10.0 mmol/L Blood Urea Nitrogen 53 mg/dl Creatinine 1.70 mg/dl Est Creatinine Clear Calc Drug Dose 35.5 ml/min Estimated GFR () 35.8 Estimated GFR (Non- 30.9 BUN/Creatinine Ratio 31.2 Random Glucose 158 mg/dl Calcium Level 9.5 mg/dl Magnesium Level 2.1 mg/dl Random Cortisol 18.86 mcg/dl Bedside Glucose 143 mg/dl 191 mg/dl Diagnostic Results DOPPLER ULTRASOUND OF THE RENAL ARTERIES CLINICAL HISTORY: Hypertensive emergency. COMPARISON STUDY: Abdominal CT dated 10/12/2014. TECHNIQUE: Doppler sonography of the renal arteries was performed to assess renal artery stenosis. Images are reviewed in the transverse and longitudinal planes. The Examination is significantly degraded by large body habitus and overlying bowel. FINDINGS: The kidneys demonstrate mild cortical atrophy and are without hydronephrosis. The right kidney measures 10.4 cm in length and the left kidney measures 10.5 cm in length. A 4 cm cyst arises from the right lower pole. On the right, intrarenal arterial resistive indices range from 0.45 to 0.78. Intrarenal arterial waveforms are normal with brisk upstrokes. The right renal artery was not visualized. On the left, intrarenal arterial resistive indices range from 0.56 to 0.71. Intrarenal arterial waveforms are normal with brisk upstrokes. The proximal and mid portions of the left renal artery were not visualized. The imaged distal left renal arterial waveform is normal, and velocities within the left renal artery measure up to 56 cm/sec. The left renal vein is patent. The abdominal aorta is patent. Velocities within the abdominal aorta measure up to 109 cm/s. IMPRESSION: 1. Nondiagnostic assessment of the right renal artery. The right renal artery was not visualized. 2. Visualized portions of the left renal artery are patent with normal velocities. 3. The kidneys demonstrate mild cortical atrophy. Assessment and Plan (1) Hypertensive emergency Assessment & Plan: Metanephrines and marnie still pending. Renal artery dopplers inconclusive. Discussed with Nephro. If she doesn't respond to optimal doses of meds and pheo/marnie work ups negative, we should definitively exclude renal artery stenosis. This could be done with MRA to avoid contrast. (2) Elevated troponin Assessment & Plan: Cardio input appreciated. Troponin elevated due to severely uncontrolled hypertension and severe LVH. C/w Plavix, statin, BB, ARB. She is not on aspirin due to severe epistaxis in the past while on both asa and plavix. (3) Chronic kidney disease Assessment & Plan: Cr stable. She will need outpatient Nephrology follow up. (4) Diabetes mellitus Assessment & Plan: Reasonable control with Lantus and sliding scale aspart. Pharm on board for glycemic management. (5) DVT prophylaxis Assessment & Plan: SCDs Continued [facility] stay due to: abnormal vital signs Discharge planning: home
--- NOTE | 2016-12-01 13:21 | Pharmacy Progress Note ---
Glycemic Control: Progress Nt Date of Service Dec 01, 2016. Scope Glycemic Pharmacist consulted by Dr De Souza on 11/29/16 for glycemic control and to write orders per [facility] inpatient glycemic control protocol. Objective Accuchecks BSG (last 24hrs): Test 11/30/16 16:13 11/30/16 20:07 12/01/16 06:16 12/01/16 07:25 Bedside Glucose 149 mg/dl (70-90) 244 mg/dl (70-90) 143 mg/dl (70-90) Random Glucose 158 mg/dl (70-99) Test 12/01/16 11:37 Bedside Glucose 191 mg/dl (70-90) Laboratory Data (last 24hrs) Test 12/01/16 06:16 Anion Gap 10.0 mmol/L BUN/Creatinine Ratio 31.2 Blood Urea Nitrogen 53 mg/dl Creatinine 1.70 mg/dl Potassium Level 3.9 mmol/L Sodium Level 141 mmol/L HbA1c: Test 11/30/16 06:13 Hemoglobin A1c 8.8 % (4.5-5.6) H Recent Pertinent Medications Outpatient Anti-diabetic Regimen: * Toujeo 16 units SQ Daily * Humalog SSI per scale The patient is currently receiving: * Basal insulin: Lantus 13 units every 24 hours given in the morning * Correctional Insulin: Novolog Correction per scale ACHS Goal Range: Low 110 mg/dL - High 150 mg/dL Correction Factor: 25 mg/dL/unit * Prandial insulin: Per carb ratio of 1 unit per 8 grams CHO consumed Assessment & Plan ASSESSMENT: * 66yo T2DM female with sub-optimal degree of outpatient control per recent A1c of 8.8%, goal A1c should be less than 8% based on age and co-morbidities. * Pt is maintained on SQ basal bolus insulin regimen as an outpatient. Pt uses Toujeo, concentrated insulin glargine {U-300}, which is not-stocked/non- formulary. Pt changed to Lantus, standard concentration insulin glargine {U-100 } insulin for short term inpatient use. * Per the vacuum pan operator recommendation, when changing from Toujeo to Lantus, it is recommended to reduce the initial dose by ~ 20% which was done on 11/30/16 (13 units given). * AM fasting BSG slightly elevated at 143mg/dl --> OK to resume outpatient dosing at this time (16 units) * ADA & AACE recommend a goal blood sugar range 140-180 mg/dl for the majority of critically ill & non-critically ill patients. However, more stringent targets may be selected in individual cases. PLAN FOR INPATIENT GLYCEMIC CONTROL: * Increase Basal insulin with LANTUS 16 units SQ daily in AM * Give 13 units if BSG 120mg/dl or below * Correctional Insulin with NOVOLOG per scale ACHS or Q6hrs while NPO * Goal Range: Low 110 mg/dL - High 140 mg/dL * Correction Factor: 25 mg/dL/unit * Nutritional / Prandial insulin per carb ratio of 1 unit per 8 grams CHO consumed * Please note that the plan above was derived based on current level of insulin resistance and hospital stress. These recommendations are appropriate for inpatient admission only. Plan of care upon discharge will need to be reassessed to avoid potential outpatient hypo/hyperglycemia. Thank you.
--- NOTE | 2016-12-01 14:35 | ECHOCARDIOGRAM REPORT ---
*NOTICE TO RECEIVING [employer] This information is strictly Confidential and protected under [place] law. [place] law prohibits you from making any further disclosure of this information unless further disclosure is expressly permitted by the written consent of the person to whom it pertains or is authorized by law. A general authorization for the release of medical or other information is not sufficient for this purpose. Hospital accepts no responsibility if the information is made available to any other person, INCLUDING THE PATIENT. Interpretation Summary * Name: CAMPOS CRAWFORD Study Date: 12/01/2016 10:27 AM BP: 177/91 mmHg * Patient Location: [facility]\S\N289\S\1 HR: 66 * : 1950 (M/d/yyyy) Gender: Female Height: 63 in * Age: 66 yrs Ethnicity: [place] Weight: 206 lb * Ordering Physician: Dionisio Knott * Referring Physician: Self, Referred * Performed By: Makenna Mcgovern RCS * * Reason For Study: MALIGNANT HTN * BSA: 2.0 m2 * -- Conclusions -- * Compared with 05/24/16 study, mild reduction in LV systolic function, otherwise no significant change. * The left ventricle is normal in size. * Left ventricular systolic function is borderline reduced. * Ejection Fraction = 50-55%. * There is borderline global hypokinesis of the left ventricle. * There is severe concentric left ventricular hypertrophy. * Grade I diastolic dysfunction, (abnormal relaxation pattern). * There is mild mitral annular calcification. * There is mild mitral regurgitation. * The left atrium is borderline dilated. Procedure Details * A complete two-dimensional transthoracic echocardiogram was performed (2D, M-mode, Doppler and color flow Doppler). * The study was technically limited. Left Ventricle * The left ventricle is normal in size. * There is severe concentric left ventricular hypertrophy. * Left ventricular systolic function is borderline reduced. * Ejection Fraction = 50-55%. * There is borderline global hypokinesis of the left ventricle. Right Ventricle * The right ventricle is normal in size and function. Atria * The left atrium is borderline dilated. * Right atrial size is normal. Mitral Valve * There is mild mitral annular calcification. * The mitral valve is grossly normal. * There is mild mitral regurgitation. Tricuspid Valve * The tricuspid valve is normal in structure and function. * Significant tricuspid regurgitation is absent. Aortic Valve * The aortic valve is normal in structure and function. * There is no significant aortic regurgitation. Pulmonic Valve * The pulmonic valve is not well seen, but is grossly normal. * There is no significant pulmonary regurgitation. Great Vessels * The aortic root is normal size. * Aortic arch of normal dimension. * No obvious dissection could be visualized. * The pulmonary artery is normal size. Pericardium/Pleural * There is no pericardial effusion. Great Vessels * Normal inferior vena cava diameter and respiratory variation suggests normal central venous pressure. Left Ventricular Diastolic Function * Grade I diastolic dysfunction, (abnormal relaxation pattern). MMode 2D Measurements and Calculations IVSd 2.3 cm IVSs 2.9 cm LVIDd 5.5 cm LVIDs 3.6 cm LVPWd 1.4 cm LVPWs 1.7 cm IVS/LVPW 1.7 FS 34.3 % EDV(Teich) 147.5 ml ESV(Teich) 54.9 ml EF(Teich) 62.8 % EDV(cubed) 166.6 ml ESV(cubed) 47.2 ml EF(cubed) 71.7 % % IVS thick 22.8 % % LVPW thick 27.2 % LV mass(C)d 511.9 grams LV mass(C)dI 261.4 grams/m\S\2 LV mass(C)s 424.3 grams LV mass(C)sI 216.7 grams/m\S\2 SV(Teich) 92.6 ml SI(Teich) 47.3 ml/m\S\2 SV(cubed) 119.4 ml SI(cubed) 61.0 ml/m\S\2 Ao root diam 3.4 cm Ao root area 9.2 cm\S\2 LA dimension 4.0 cm LA/Ao 1.2 LVOT diam 2.0 cm LVOT area 3.1 cm\S\2 LVAd ap4 30.2 cm\S\2 LVLd ap4 8.8 cm EDV(MOD-sp4) 82.7 ml EDV(sp4-el) 88.0 ml LVAs ap4 22.5 cm\S\2 LVLs ap4 7.5 cm ESV(MOD-sp4) 57.0 ml ESV(sp4-el) 57.3 ml EF(MOD-sp4) 31.1 % EF(sp4-el) 34.9 % LVAd ap2 34.0 cm\S\2 LVLd ap2 8.5 cm EDV(MOD-sp2) 110.3 ml EDV(sp2-el) 115.8 ml LVAs ap2 24.7 cm\S\2 LVLs ap2 8.0 cm ESV(MOD-sp2) 64.3 ml ESV(sp2-el) 64.7 ml EF(MOD-sp2) 41.7 % EF(sp2-el) 44.1 % LVLd %diff -3.87 % EDV(MOD-bp) 98.7 ml LVLs %diff 6.5 % ESV(MOD-bp) 62.7 ml EF(MOD-bp) 36.5 % SV(MOD-sp4) 25.8 ml SI(MOD-sp4) 13.2 ml/m\S\2 SV(MOD-sp2) 46.0 ml SI(MOD-sp2) 23.5 ml/m\S\2 SV(MOD-bp) 36.0 ml SI(MOD-bp) 18.4 ml/m\S\2 SV(sp4-el) 30.7 ml SI(sp4-el) 15.7 ml/m\S\2 SV(sp2-el) 51.1 ml SI(sp2-el) 26.1 ml/m\S\2 Doppler Measurements and Calculations MV E max mercy 105.7 cm/sec MV A max mercy 137.5 cm/sec MV E/A 0.77 MV P1/2t max mercy 108.3 cm/sec MV P1/2t 101.4 msec MVA(P1/2t) 2.2 cm\S\2 MV dec slope 312.6 cm/sec\S\2 MV dec time 0.21 sec Ao V2 max 176.8 cm/sec Ao max PG 12.5 mmHg Ao max PG (full) 4.8 mmHg TRACIE(V,A) 2.4 cm\S\2 TRACIE(V,D) 2.4 cm\S\2 LV V1 max PG 7.7 mmHg LV V1 max 138.7 cm/sec MR max mercy 585.7 cm/sec MR max PG 137.2 mmHg PA V2 max 147.1 cm/sec PA max PG 8.7 mmHg
[2016-12-01] MEDS: ACETAMINOPHEN 325 MG TAB PO PRN (19:08)
[2016-12-01] MEDS: ROSUVASTATIN CALCIUM 20 MG TAB PO SCH (20:57)
[2016-12-02] VITALS (10 sets, daily range): BP systolic 135–212; BP diastolic 73–98; PULSE 65–74; TEMP 36.7; O2SAT 91–95
[2016-12-02] MEDS: HydrALAZINE HCL 20 MG/ML VIAL IV. PRN (04:34)
[2016-12-02 06:07] LABS: BASO % 0.4 %; BASO ABS # 0.03 K/uL (0-0.2); COMPLETE YES; EOS % 6.4 %; HEMATOCRIT 36.7 % (37-47); IG% 0.3 %; LYMPH % 25.4 %; LYMPH ABS # 1.83 K/uL (1.2-3.4); MEAN CELL VOLUME 83.6 fL (80-100); MEAN CORPUSCULAR HEMOGLOBIN 26.9 pg (25-34); MEAN CORPUSCULAR HGB CONC 32.2 g/dl (32-36); MEAN PLATELET VOLUME 11.3 fL (7.4-10.4); MONO % 7.6 %; NEUT % 59.9 %; PLATELET COUNT 237 K/uL (130-400); RED BLOOD COUNT 4.39 M/uL (4.2-5.4)
[2016-12-02] MEDS: ACETAMINOPHEN 325 MG TAB PO PRN ×2 (06:08→17:26)
[2016-12-02 06:42] LABS: BUN/CREATININE RATIO 29.8 (10-20); CALCIUM 8.9 mg/dl (8.5-10.1); CREATININE 1.7 mg/dl (0.60-1.20); MAGNESIUM 1.9 mg/dl (1.8-2.4); POTASSIUM 3.7 mmol/L (3.5-5.1)
[2016-12-02] MEDS: CARVEDILOL 3.125 MG TAB PO SCH ×2 (07:40→22:02)
[2016-12-02] MEDS: VALSARTAN 80 MG TAB PO SCH (07:41)
[2016-12-02] MEDS: FENOFIBRATE 160 MG TAB PO SCH (07:42)
[2016-12-02] MEDS: CHLORTHALIDONE 25 MG TAB PO SCH (07:43)
[2016-12-02] MEDS: OMEGA-3 (PURIFIED FISH OIL) 1 GM CAP PO SCH (07:44)
[2016-12-02] MEDS: CLOPIDOGREL BISULFATE 75 MG TAB PO SCH (07:44)
[2016-12-02] MEDS: INSULIN ASPART 100 UNITS/ML 3 ML PEN SC SCH ×4 (08:08→20:24)
[2016-12-02] MEDS: INSULIN GLARGINE SOLOSTAR 100 UNITS/ML 3 ML PEN SC SCH (08:09)
[2016-12-02] MEDS ORDERED: SPIRONOLACTONE 25 MG TAB PO SCH (09:00)
--- NOTE | 2016-12-02 11:36 | Nephrology Progress Note ---
Nephrology Progress Note Date of Service Dec 02, 2016. Chief Complaint F/U for hypertensive urgency. Subjective Ayana was seen and examined room this morning. Blood pressure continues to be elevated with systolic occasionally above 200 but she remain asymptomatic. Electrolyte remain stable with stable renal function. Currently she asymptomatic, denies any further episode dyspnea or headache. Review of Systems A complete review of systems was performed. Pertinent positives are noted above. All other systems are negative. Vital Signs Last 8 Hrs Date Time Temp Pulse Resp B/P Pulse Ox O2 Delivery O2 Flow Rate FiO2 12/02/16 08:00 Room Air 12/02/16 07:31 212/96 12/02/16 07:20 36.7 65 16 92 Room Air 12/02/16 06:04 66 170/78 12/02/16 04:29 66 190/98 12/02/16 04:19 202/73 12/02/16 04:18 36.7 66 16 210/92 95 Room Air 12/02/16 04:00 Room Air I & O 24-Hour Column 12/02/16 07:59 Intake Total 1315 ml Output Total 275 ml Balance 1040 ml Last Recorded Weight Weight (Kilograms): 94.600 Physical Exam GENERAL: middle aged, female, AAA x 3, not in any distress. NECK: Supple, no JVD. RESPIRATORY: Normal breathing efforts, no accessory muscle use, clear to auscultation bilaterally, no wheezes or rales. CARDIOVASCULAR: S1, S2 normal, rate rhythm regular. EXTREMITY: No lower extremity edema NEURO: speech fluent. 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[employer]) Laboratory Results Past 24 Hours 12/02/16 05:55 Red Blood Count 4.39, Mean Corpuscular Volume 83.6, Mean Corpuscular Hemoglobin 26.9, Mean Corpuscular Hemoglobin Concent 32.2, Mean Platelet Volume 11.3, Neutrophils (%) (Auto) 59.9, Lymphocytes (%) (Auto) 25.4, Monocytes (%) (Auto) 7.6, Eosinophils (%) (Auto) 6.4, Basophils (%) (Auto) 0.4, Neutrophils # (Auto) 4.31, Lymphocytes # (Auto) 1.83, Monocytes # (Auto) 0.55, Eosinophils # (Auto) 0.46, Basophils # (Auto) 0.03 12/02/16 05:55 Test 12/01/16 11:37 12/01/16 16:49 12/01/16 20:40 12/02/16 05:55 Bedside Glucose 191 mg/dl (70-90) 137 mg/dl (70-90) 161 mg/dl (70-90) White Blood Count 7.20 K/uL (4.8-10.8) Red Blood Count 4.39 M/uL (4.2-5.4) Hemoglobin 11.8 g/dL (12.0-16.0) Hematocrit 36.7 % (37-47) Mean Corpuscular Volume 83.6 fL (80-100) Mean Corpuscular Hemoglobin 26.9 pg (25-34) Mean Corpuscular Hemoglobin Concent 32.2 g/dl (32-36) Platelet Count 237 K/uL (130-400) Mean Platelet Volume 11.3 fL (7.4-10.4) Neutrophils (%) (Auto) 59.9 % Lymphocytes (%) (Auto) 25.4 % Monocytes (%) (Auto) 7.6 % Eosinophils (%) (Auto) 6.4 % Basophils (%) (Auto) 0.4 % Neutrophils # (Auto) 4.31 K/uL (1.4-6.5) Lymphocytes # (Auto) 1.83 K/uL (1.2-3.4) Monocytes # (Auto) 0.55 K/uL (0.11-0.59) Eosinophils # (Auto) 0.46 K/uL (0-0.5) Basophils # (Auto) 0.03 K/uL (0-0.2) RDW Standard Deviation 43.0 fL (36.4-46.3) RDW Coefficient of Variation 14.1 % (11.5-14.5) Immature Granulocyte % (Auto) 0.3 % Immature Granulocyte # (Auto) 0.02 K/uL (0.00-0.02) Anion Gap 12.0 mmol/L (3-11) Est Creatinine Clear Calc Drug Dose 35.5 ml/min Estimated GFR () 35.8 Estimated GFR (Non- 30.9 BUN/Creatinine Ratio 29.8 (10-20) Calcium Level 8.9 mg/dl (8.5-10.1) Magnesium Level 1.9 mg/dl (1.8-2.4) Test 12/02/16 07:33 Bedside Glucose 156 mg/dl (70-90) Allergies Coded Allergies: Sulfa Antibiotics (Verified Allergy, Intermediate, RASH, 11/30/16) Penicillins (Verified Allergy, Mild, 11/29/16) Meperidine (Verified Adverse Reaction, Intermediate, hallucinates, 11/29/16) Lisinopril (Verified Adverse Reaction, Mild, COUGHING, 11/30/16) Medications Current Inpatient Medications Medications (Trade) Dose Ordered Sig/Isaías Route Start Time Stop Time Status Last Admin Dose Admin Ioversol (Optiray 320) 111 ml UD PRN IV 11/29/16 15:00 12/03/16 14:59 Acetaminophen (Tylenol Tab) 650 mg Q4H PRN PO 11/29/16 17:15 12/29/16 17:14 12/02/16 06:08 650 MG Zolpidem Tartrate (Ambien Tab) 5 mg HSZ PRN PO 11/29/16 17:15 12/29/16 17:14 Ondansetron HCl (Zofran Inj) 4 mg Q6H PRN IV 11/29/16 17:15 12/29/16 17:14 Nitroglycerin (Nitrostat Tab) 0.4 mg UD PRN SL 11/29/16 17:15 12/29/16 17:14 Morphine Sulfate (MoRPHine SULFATE INJ) 2 mg Q30M PRN IV 11/29/16 17:15 12/13/16 17:14 Polyethylene (Miralax Powder Packet) 17 gm DAILY PRN PO 11/29/16 17:15 12/29/16 17:14 Carvedilol (Coreg Tab) 3.125 mg BID PO 11/29/16 21:00 12/29/16 20:59 12/02/16 07:40 3.125 MG Clopidogrel Bisulfate (plAVix TAB) 75 mg DAILY PO 11/30/16 09:00 12/30/16 08:59 12/02/16 07:44 75 MG Rosuvastatin Calcium (Crestor Tab) 40 mg HS PO 11/29/16 21:00 12/29/16 20:59 12/01/16 20:57 40 MG Fish Oil ([place]-3 (Purified Fish Oil) Cap) 1 gm DAILY PO 11/30/16 09:00 12/30/16 08:59 12/02/16 07:44 1 GM Miscellaneous Information (Consult Glycemic Management Pharmacy) 1 ea UD PRN N/A 11/29/16 19:52 12/29/16 19:51 Insulin Aspart (novoLOG ASPART) SLIDING SCALE G... ACHS SC 11/29/16 21:00 12/29/16 20:59 12/02/16 08:08 10 UNITS Glucose (Glucose 40% Gel) 15-30 GRAMS 15 GRAMS... UD PRN PO 11/29/16 18:45 12/29/16 18:44 Glucose (Glucose Chew Tab) 4-8 Tablets 4 Tabl... UD PRN PO 11/29/16 18:45 12/29/16 18:44 Dextrose (Dextrose 50% 50ML Syringe) 25-50ML OF 50% DW IV FOR... UD PRN IV 11/29/16 18:45 12/29/16 18:44 Glucagon (Glucagon Inj) 1 mg UD PRN SQ 11/29/16 18:45 12/29/16 18:44 Fenofibrate (Fenofibrate) 160 mg DAILY PO 12/01/16 09:00 12/31/16 08:59 12/02/16 07:42 160 MG Hydralazine HCl (HydrALAZINE INJ) 5 mg Q6H PRN IV. 12/01/16 00:00 12/31/16 00:00 12/02/16 04:34 5 MG Valsartan (Diovan Tab) 320 mg DAILY PO 12/01/16 09:00 12/31/16 08:59 12/02/16 07:41 320 MG Insulin Glargine (Lantus Solostar Pen) SEE PROTOCOL TEXT DAILY SC 12/01/16 09:00 12/31/16 08:59 12/02/16 08:09 16 UNIT Spironolactone (Aldactone Tab) 50 mg QAM PO 12/02/16 09:00 01/01/17 08:59 12/02/16 07:39 50 MG Chlorthalidone (Hygroton Tab) 25 mg QAM PO 12/02/16 09:00 01/01/17 08:59 12/02/16 07:43 25 MG Impression (1) Stage 3 chronic kidney disease (2) Hypertensive emergency (3) Proteinuria (4) Diabetes mellitus Ayana Is a 66-year-old female with history of hypertension, coronary artery disease, stage 3 chronic kidney disease, renovascular disease status post left renal artery stent admitted to the hospital with hypertensive emergency and SOB. She received nitro paste and hydralazine with improvement in blood pressure but still her blood pressure above goal and has been variable. Currently she is otherwise asymptomatic. She has stage 3 chronic kidney disease , baseline creatinine around 1.5-1.8 and creatinine is at baseline on admission with other electrolyte acceptable. Has history of renovascular disease previously had left renal artery stent placed in 2013. Had coronary artery stent placed in 2009. She has been on carvedilol, diovan and Maxzide at home but her blood pressure has been progressively running high over last few weeks. On admission her troponin was mildly elevated without any significant EKG changes. her shortness of breath resolved and denies any chest pain. Had renal artery Doppler done but the test was inconclusive as right renal artery could not be visualized but at left renal artery without any he stenosis. Also has history of diabetes with proteinuria and diabetes seems to be poorly-controlled. Echo with normal EF. Random cortisol. Differentials for hypertensive emergency including right renal artery stenosis, hyperaldosteronism, pheochromocytoma OR medication noncompliance. Patient reports taking medications serum regularly, other clinical feature is not suggestive of pheochromocytoma. Renal artery Doppler was nondiagnostic. No history of hypokalemia. Recommendations --continue on Diovan 320 milligram, chlorthalidone 25 milligram and increase spironolactone to 100 mg /d. Continue on prn hydralazine --will consider MRA as pt reluctant to consider CTA or angiogram for definitive evaluation of rt renal artery while we wait for w/u for pheochromocytoma and other secondary causes. Will follow.
--- NOTE | 2016-12-02 12:51 | Hospitalist Progress Note ---
Hospitalist Progress Note Date of Service Dec 02, 2016. Subjective Pt evaluation today including: conversation w/ patient, physical exam, lab review, conversation w/ absence management consultant, review of inpatient medication list BP still elevated this AM, but better at lunch time. She c/o vulvar itching and erythema. She reports multiple prior yeast infections. Medications Current Inpatient Medications Medications (Trade) Dose Ordered Sig/Isaías Route Start Time Stop Time Status Last Admin Dose Admin Ioversol (Optiray 320) 111 ml UD PRN IV 11/29/16 15:00 12/03/16 14:59 Acetaminophen (Tylenol Tab) 650 mg Q4H PRN PO 11/29/16 17:15 12/29/16 17:14 12/02/16 06:08 650 MG Zolpidem Tartrate (Ambien Tab) 5 mg HSZ PRN PO 11/29/16 17:15 12/29/16 17:14 Ondansetron HCl (Zofran Inj) 4 mg Q6H PRN IV 11/29/16 17:15 12/29/16 17:14 Nitroglycerin (Nitrostat Tab) 0.4 mg UD PRN SL 11/29/16 17:15 12/29/16 17:14 Morphine Sulfate (MoRPHine SULFATE INJ) 2 mg Q30M PRN IV 11/29/16 17:15 12/13/16 17:14 Polyethylene (Miralax Powder Packet) 17 gm DAILY PRN PO 11/29/16 17:15 12/29/16 17:14 Carvedilol (Coreg Tab) 3.125 mg BID PO 11/29/16 21:00 12/29/16 20:59 12/02/16 07:40 3.125 MG Clopidogrel Bisulfate (plAVix TAB) 75 mg DAILY PO 11/30/16 09:00 12/30/16 08:59 12/02/16 07:44 75 MG Rosuvastatin Calcium (Crestor Tab) 40 mg HS PO 11/29/16 21:00 12/29/16 20:59 12/01/16 20:57 40 MG Fish Oil (Johnson-3 (Purified Fish Oil) Cap) 1 gm DAILY PO 11/30/16 09:00 12/30/16 08:59 12/02/16 07:44 1 GM Miscellaneous Information (Consult Glycemic Management Pharmacy) 1 ea UD PRN N/A 11/29/16 19:52 12/29/16 19:51 Insulin Aspart (novoLOG ASPART) SLIDING SCALE G... ACHS SC 11/29/16 21:00 12/29/16 20:59 12/02/16 08:08 10 UNITS Glucose (Glucose 40% Gel) 15-30 GRAMS 15 GRAMS... UD PRN PO 11/29/16 18:45 12/29/16 18:44 Glucose (Glucose Chew Tab) 4-8 Tablets 4 Tabl... UD PRN PO 11/29/16 18:45 12/29/16 18:44 Dextrose (Dextrose 50% 50ML Syringe) 25-50ML OF 50% DW IV FOR... UD PRN IV 11/29/16 18:45 12/29/16 18:44 Glucagon (Glucagon Inj) 1 mg UD PRN SQ 11/29/16 18:45 12/29/16 18:44 Fenofibrate (Fenofibrate) 160 mg DAILY PO 12/01/16 09:00 12/31/16 08:59 12/02/16 07:42 160 MG Hydralazine HCl (HydrALAZINE INJ) 5 mg Q6H PRN IV. 12/01/16 00:00 12/31/16 00:00 12/02/16 04:34 5 MG Valsartan (Diovan Tab) 320 mg DAILY PO 12/01/16 09:00 12/31/16 08:59 12/02/16 07:41 320 MG Insulin Glargine (Lantus Solostar Pen) SEE PROTOCOL TEXT DAILY SC 12/01/16 09:00 12/31/16 08:59 12/02/16 08:09 16 UNIT Spironolactone (Aldactone Tab) 50 mg QAM PO 12/02/16 09:00 01/01/17 08:59 12/02/16 07:39 50 MG Chlorthalidone (Hygroton Tab) 25 mg QAM PO 12/02/16 09:00 01/01/17 08:59 12/02/16 07:43 25 MG Objective Vital Signs Date Time Temp Pulse Resp B/P Pulse Ox O2 Delivery O2 Flow Rate FiO2 12/02/16 11:54 36.7 66 16 135/85 95 Room Air 12/02/16 08:00 Room Air 12/02/16 07:31 212/96 12/02/16 07:20 36.7 65 16 92 Room Air 12/02/16 06:04 66 170/78 12/02/16 04:29 66 190/98 12/02/16 04:19 202/73 12/02/16 04:18 36.7 66 16 210/92 95 Room Air 12/02/16 04:00 Room Air 12/02/16 00:00 Room Air 12/01/16 23:08 36.7 73 18 107/53 91 Room Air 12/01/16 20:48 70 169/84 12/01/16 20:00 Room Air 12/01/16 19:00 37.0 79 20 193/98 95 Room Air 12/01/16 18:50 37.0 81 20 193/98 95 Room Air 12/01/16 16:00 Room Air 12/01/16 15:06 36.9 69 20 158/71 94 Physical Exam General Appearance: no apparent distress Eyes: sclerae normal Neck: no JVD Respiratory/Chest: lungs clear, no respiratory distress Cardiovascular: regular rate, rhythm Abdomen: normal bowel sounds, non tender, soft Extremities: no pedal edema Neurologic/Psychiatric: alert, oriented x 3 Skin: warm/dry Laboratory Results Last 24 Hours Test 12/01/16 16:49 12/01/16 20:40 12/02/16 05:55 12/02/16 07:33 Bedside Glucose 137 mg/dl 161 mg/dl 156 mg/dl White Blood Count 7.20 K/uL Red Blood Count 4.39 M/uL Hemoglobin 11.8 g/dL Hematocrit 36.7 % Mean Corpuscular Volume 83.6 fL Mean Corpuscular Hemoglobin 26.9 pg Mean Corpuscular Hemoglobin Concent 32.2 g/dl Platelet Count 237 K/uL Mean Platelet Volume 11.3 fL Neutrophils (%) (Auto) 59.9 % Lymphocytes (%) (Auto) 25.4 % Monocytes (%) (Auto) 7.6 % Eosinophils (%) (Auto) 6.4 % Basophils (%) (Auto) 0.4 % Neutrophils # (Auto) 4.31 K/uL Lymphocytes # (Auto) 1.83 K/uL Monocytes # (Auto) 0.55 K/uL Eosinophils # (Auto) 0.46 K/uL Basophils # (Auto) 0.03 K/uL RDW Standard Deviation 43.0 fL RDW Coefficient of Variation 14.1 % Immature Granulocyte % (Auto) 0.3 % Immature Granulocyte # (Auto) 0.02 K/uL Sodium Level 141 mmol/L Potassium Level 3.7 mmol/L Chloride Level 105 mmol/L Carbon Dioxide Level 24 mmol/L Anion Gap 12.0 mmol/L Blood Urea Nitrogen 51 mg/dl Creatinine 1.70 mg/dl Est Creatinine Clear Calc Drug Dose 35.5 ml/min Estimated GFR () 35.8 Estimated GFR (Non- 30.9 BUN/Creatinine Ratio 29.8 Random Glucose 159 mg/dl Calcium Level 8.9 mg/dl Magnesium Level 1.9 mg/dl Test 12/02/16 12:00 Bedside Glucose 249 mg/dl Assessment and Plan (1) Hypertensive emergency Assessment & Plan: Metanephrines and marnie still pending. Renal artery dopplers inconclusive. Discussed with Nephro. If her BP is still severely elevated tomorrow, will plan for further imaging to exclude renal artery stenosis on the right side. This could be done via MRA to avoid contrast. (2) Elevated troponin Assessment & Plan: Cardio input appreciated. Troponin elevated due to severely uncontrolled hypertension and severe LVH. C/w Plavix, statin, BB, ARB. She is not on aspirin due to severe epistaxis in the past while on both asa and plavix. (3) Chronic kidney disease Assessment & Plan: Cr stable. She will need outpatient Nephrology follow up. (4) Vulvovaginal candidiasis Assessment & Plan: Fluconazole 150mg x 1 dose. (5) Diabetes mellitus Assessment & Plan: Reasonable control with Lantus and sliding scale aspart. Pharm on board for glycemic management. (6) DVT prophylaxis Assessment & Plan: SCDs Continued [facility] stay due to: abnormal vital signs Discharge planning: home
[2016-12-02] MEDS ORDERED: FLUCONAZOLE 50 MG TAB PO ONE (13:30)
--- NOTE | 2016-12-02 15:17 | Pharmacy Progress Note ---
Glycemic Control: Progress Nt Date of Service Dec 02, 2016. Scope Glycemic Pharmacist consulted by Dr De Souza on 11/29/16 for glycemic control and to write orders per [facility] inpatient glycemic control protocol. Objective Accuchecks BSG (last 24hrs): Test 12/01/16 16:49 12/01/16 20:40 12/02/16 05:55 12/02/16 07:33 Bedside Glucose 137 mg/dl (70-90) 161 mg/dl (70-90) 156 mg/dl (70-90) Random Glucose 159 mg/dl (70-99) Test 12/02/16 12:00 Bedside Glucose 249 mg/dl (70-90) Laboratory Data (last 24hrs) Test 12/02/16 05:55 Anion Gap 12.0 mmol/L BUN/Creatinine Ratio 29.8 Blood Urea Nitrogen 51 mg/dl Creatinine 1.70 mg/dl Potassium Level 3.7 mmol/L Sodium Level 141 mmol/L White Blood Count 7.20 K/uL Red Blood Count 4.39 M/uL Hemoglobin 11.8 g/dL Hematocrit 36.7 % Mean Corpuscular Volume 83.6 fL Mean Corpuscular Hemoglobin 26.9 pg Mean Corpuscular Hemoglobin Concent 32.2 g/dl Platelet Count 237 K/uL Mean Platelet Volume 11.3 fL Neutrophils (%) (Auto) 59.9 % Lymphocytes (%) (Auto) 25.4 % Monocytes (%) (Auto) 7.6 % Eosinophils (%) (Auto) 6.4 % Basophils (%) (Auto) 0.4 % Neutrophils # (Auto) 4.31 K/uL Lymphocytes # (Auto) 1.83 K/uL Monocytes # (Auto) 0.55 K/uL Eosinophils # (Auto) 0.46 K/uL Basophils # (Auto) 0.03 K/uL HbA1c: Test 11/30/16 06:13 Hemoglobin A1c 8.8 % (4.5-5.6) H Recent Pertinent Medications Outpatient Anti-diabetic Regimen: * Toujeo 16 units SQ Daily * Humalog SSI per scale The patient is currently receiving: * Basal insulin: Lantus 16 units every 24 hours given in the morning * Correctional Insulin: Novolog Correction per scale ACHS Goal Range: Low 110 mg/dL - High 150 mg/dL Correction Factor: 25 mg/dL/unit * Prandial insulin: Per carb ratio of 1 unit per 8 grams CHO consumed Assessment & Plan ASSESSMENT: * 66yo T2DM female with sub-optimal degree of outpatient control per recent A1c of 8.8%, goal A1c should be less than 8% based on age and co-morbidities. * Pt is maintained on SQ basal bolus insulin regimen as an outpatient. Pt uses Toujeo, concentrated insulin glargine {U-300}, which is not-stocked/non- formulary. Pt changed to Lantus, standard concentration insulin glargine {U-100 } insulin for short term inpatient use. * Per the dye automation operator recommendation, when changing from Toujeo to Lantus, it is recommended to reduce the initial dose by ~ 20% which was done on 11/30/16 (13 units given). * AM fasting BSG slightly elevated at 143mg/dl on 12/01/16--> OK to resume outpatient dosing at this time (16 units) * Post-prandial BSGs slightly elevated --> will tighten CF/CR accordingly. * ADA & AACE recommend a goal blood sugar range 140-180 mg/dl for the majority of critically ill & non-critically ill patients. However, more stringent targets may be selected in individual cases. Will utilize more stringent target of 110-140mg/dl based on pt age. PLAN FOR INPATIENT GLYCEMIC CONTROL: * Continue Basal insulin with LANTUS 16 units SQ daily in AM * Give 13 units if BSG 120mg/dl or below * Tighten Correctional Insulin with NOVOLOG per scale ACHS or Q6hrs while NPO * Goal Range: Low 110 mg/dL - High 140 mg/dL * Correction Factor: 20 mg/dL/unit * Nutritional / Prandial insulin per carb ratio of 1 unit per 7 grams CHO consumed * Please note that the plan above was derived based on current level of insulin resistance and hospital stress. These recommendations are appropriate for inpatient admission only. Plan of care upon discharge will need to be reassessed to avoid potential outpatient hypo/hyperglycemia. Thank you.
[2016-12-02] MEDS: ROSUVASTATIN CALCIUM 20 MG TAB PO SCH (20:20)
[2016-12-03] VITALS (8 sets, daily range): BP systolic 119–200; BP diastolic 75–94; PULSE 66–72; TEMP 36.5–37.2; O2SAT 91–98; Ht 160 cm; Wt 94.6 kg
[2016-12-03] MEDS: ACETAMINOPHEN 325 MG TAB PO PRN (08:10)
[2016-12-03] MEDS: OMEGA-3 (PURIFIED FISH OIL) 1 GM CAP PO SCH (08:13)
[2016-12-03] MEDS: CLOPIDOGREL BISULFATE 75 MG TAB PO SCH (08:13)
[2016-12-03] MEDS: SPIRONOLACTONE 100 MG TAB PO SCH (08:14)
[2016-12-03] MEDS: FENOFIBRATE 160 MG TAB PO SCH (08:15)
[2016-12-03] MEDS: CHLORTHALIDONE 25 MG TAB PO SCH (08:16)
--- NOTE | 2016-12-03 08:22 | Hospitalist Progress Note ---
Hospitalist Progress Note Date of Service Dec 03, 2016. (Rose Rojas ., PALaureenC) Subjective Pt evaluation today including: conversation w/ patient, physical exam, chart review, lab review, review of studies, review of inpatient medication list Voiding: no voiding problems, no incontinence Patient states she is feeling well today. She is scheduled for an MRA sometime this afternoon. She is eating and drinking OK. +mild headache- given Tylenol. Patient denies any fever, chills, sweats, lightheadedness, dizziness, vision changes, CP, palpitations, edema, SOB, wheezing, cough, abdominal pain, nausea, vomiting, diarrhea, urinary symptoms, melena, numbness/tingling, weakness, muscle/joint pain, anxiety/depression, active bleeding, or new skin discoloration/changes. (Rose Rojas ., CED-C) Medications Current Inpatient Medications Medications (Trade) Dose Ordered Sig/Isaías Route Start Time Stop Time Status Last Admin Dose Admin Ioversol (Optiray 320) 111 ml UD PRN IV 11/29/16 15:00 12/03/16 14:59 Acetaminophen (Tylenol Tab) 650 mg Q4H PRN PO 11/29/16 17:15 12/29/16 17:14 12/03/16 08:10 650 MG Zolpidem Tartrate (Ambien Tab) 5 mg HSZ PRN PO 11/29/16 17:15 12/29/16 17:14 Ondansetron HCl (Zofran Inj) 4 mg Q6H PRN IV 11/29/16 17:15 12/29/16 17:14 Nitroglycerin (Nitrostat Tab) 0.4 mg UD PRN SL 11/29/16 17:15 12/29/16 17:14 Morphine Sulfate (MoRPHine SULFATE INJ) 2 mg Q30M PRN IV 11/29/16 17:15 12/13/16 17:14 Polyethylene (Miralax Powder Packet) 17 gm DAILY PRN PO 11/29/16 17:15 12/29/16 17:14 Clopidogrel Bisulfate (plAVix TAB) 75 mg DAILY PO 11/30/16 09:00 12/30/16 08:59 12/03/16 08:13 75 MG Rosuvastatin Calcium (Crestor Tab) 40 mg HS PO 11/29/16 21:00 12/29/16 20:59 12/02/16 20:20 40 MG Fish Oil (Jefferson-3 (Purified Fish Oil) Cap) 1 gm DAILY PO 11/30/16 09:00 12/30/16 08:59 12/03/16 08:13 1 GM Miscellaneous Information (Consult Glycemic Management Pharmacy) 1 ea UD PRN N/A 11/29/16 19:52 12/29/16 19:51 Insulin Aspart (novoLOG ASPART) SLIDING SCALE G... ACHS SC 11/29/16 21:00 12/29/16 20:59 12/03/16 08:31 8 UNITS Glucose (Glucose 40% Gel) 15-30 GRAMS 15 GRAMS... UD PRN PO 11/29/16 18:45 12/29/16 18:44 Glucose (Glucose Chew Tab) 4-8 Tablets 4 Tabl... UD PRN PO 11/29/16 18:45 12/29/16 18:44 Dextrose (Dextrose 50% 50ML Syringe) 25-50ML OF 50% DW IV FOR... UD PRN IV 11/29/16 18:45 12/29/16 18:44 Glucagon (Glucagon Inj) 1 mg UD PRN SQ 11/29/16 18:45 12/29/16 18:44 Fenofibrate (Fenofibrate) 160 mg DAILY PO 12/01/16 09:00 12/31/16 08:59 12/03/16 08:15 160 MG Hydralazine HCl (HydrALAZINE INJ) 5 mg Q6H PRN IV. 12/01/16 00:00 12/31/16 00:00 12/02/16 04:34 5 MG Insulin Glargine (Lantus Solostar Pen) SEE PROTOCOL TEXT DAILY SC 12/01/16 09:00 12/31/16 08:59 12/03/16 08:32 16 UNIT Chlorthalidone (Hygroton Tab) 25 mg QAM PO 12/02/16 09:00 01/01/17 08:59 12/03/16 08:16 25 MG Spironolactone (Aldactone Tab) 100 mg QAM PO 12/03/16 09:00 01/02/17 08:59 12/03/16 08:14 100 MG Valsartan (Diovan Tab) 320 mg DAILY@2000 PO 12/03/16 20:00 12/31/16 08:59 Carvedilol (Coreg Tab) 3.125 mg BID PO 12/03/16 10:00 01/02/17 09:59 12/03/16 09:13 3.125 MG (Rose Rojas, PA-C) Objective Vital Signs Date Time Temp Pulse Resp B/P Pulse Ox O2 Delivery O2 Flow Rate FiO2 12/03/16 07:43 37.2 66 18 120/87 97 Room Air 12/03/16 00:17 36.6 68 18 167/83 94 Room Air 12/03/16 00:00 91 Room Air 12/02/16 20:27 73 164/83 12/02/16 16:00 Room Air 12/02/16 15:59 36.7 74 20 179/85 91 Room Air 12/02/16 15:29 36.7 66 16 95 12/02/16 12:00 Room Air 12/02/16 11:54 36.7 66 16 135/85 95 Room Air (Rose Rojas ., PA-C) Physical Exam General Appearance: no apparent distress, + obese Eyes: normal inspection, PERRL ENT: hearing grossly normal Neck: supple Respiratory/Chest: lungs clear, no respiratory distress, no accessory muscle use Cardiovascular: regular rate, rhythm, + systolic murmur Abdomen: normal bowel sounds, non tender, soft Extremities: no pedal edema, no calf tenderness Neurologic/Psychiatric: alert, normal mood/affect, oriented x 3 Skin: normal color, warm/dry, no rash (Rose Rojas ., PA-C) Laboratory Results Last 24 Hours Test 12/02/16 12:00 12/02/16 16:21 12/02/16 19:55 12/03/16 04:44 Bedside Glucose 249 mg/dl 146 mg/dl 163 mg/dl Test 12/03/16 07:19 Bedside Glucose 150 mg/dl (Rose Rojas, PA-C) Assessment and Plan Hypertensive emergency, hx of renal artery stenosis s/p stent: - Renal artery Dopplers- Nondiagnostic assessment of the right renal artery. The right renal artery was not visualized. Visualized portions of the left renal artery are patent with normal velocities. The kidneys demonstrate mild cortical atrophy. - Consult Nephrology, appreciate recommendations. Will need outpatient f/u. - MRA pending - Continue on Diovan 320 milligram PO HS, Chlorthalidone 25 milligram PO daily, Spironolactone to 100 PO daily. Continue on PRN Hydralazine - Check TSH, aldosterone, metanephrines, and random cortisol AVELINO: - She had a sleep study in the past suggestive of mild AVELINO and a nocturnal pulse ox study in 04/2016 indicating she needed nocturnal oxygen. - Recommend f/u with PCP Elevated troponin, ?2/2 to uncontrolled HTN: - Trended troponin x3 - Consult cardiology, appreciate recommendations. Will need outpatient f/u. - ECHO- mild reduction in LV systolic function, otherwise no significant change. The left ventricle is normal in size. Left ventricular systolic function is borderline reduced. Ejection Fraction = 50-55%. There is borderline global hypokinesis of the left ventricle. There is severe concentric left ventricular hypertrophy. Grade I diastolic dysfunction, (abnormal relaxation pattern). There is mild mitral annular calcification. There is mild mitral regurgitation. The left atrium is borderline dilated. - Beta fartun, statin, ARB, and Plavix. She is not on Aspirin due to severe epistaxis in the past while on both ASA and Plavix. SOB, ?2/2 to uncontrolled HTN and underlying lung disease: - Pro-BNP is elevated, but she clinically does not appear to have evidence for heart failure. CXR- Emphysema with no acute cardiopulmonary abnormality. - hx of smoking, previous CXR suggestive of pulmonary disease. Recommend outpatient PFTs. She says she has never been diagnosed with heart failure in the past. She does have a history of smoking in the past, but is not formally diagnosed with COPD. Her previous CXRs are suggestive of chronic lung disease. She doesn't have any evidence for bronchoconstriction on exam that would need to be treated now, but she should have PFTs on an outpatient basis when her acute issues resolve to further elucidate her suspected pulmonary disease. Chronic kidney disease, stage 3: - Consulted nephrology - Follow BMP Diabetes mellitus: - Substitute Lantus for her usual Toujeo and aspart sliding scale for her usual lispro sliding scale - Pharm consult for glycemic management. - ha1c of 8.8 Vulvovaginal candidiasis: - Fluconazole 150mg x 1 dose Hyperlipidemia: - Continue Crestor and Fenofibrate DVT prophylaxis: - SCDs Code Status: - LEVEL I, FULL Dispo: - Discharge to home once medically stable. MRA today, check kidney function tomorrow AM- hopeful discharge tomorrow (12/04). (Rose Rojas ., PA-C) i personally examined pt and verified all andrews points w Obinna Rojas PAC feeling OK. no new sx. extensive discussion w pt and son in regards to hypertensive urgency, HTN, further w/u and ongoing treatment. >30mins face to face w pt and son answering questions nad, breathing unlabored, vitals noted -improving. MRA not reported when talking with family - later was reported, Obinna Rojas reviewed with them. hypertensive urgency - more stable -suspect refractory essential HTN, w/u for pheo pending -BP improving control w increased meds -strongly suspect psychosocial stressors playing a large role as well occlusive aortic vascular disease -BP control, plavix, crestor -likely ongoing outpt management but with severity of occlusion will ask for vascular opinion prior to discharge hypertensive cardiomyopathy -BP control, wanted to increase beta fartun but she notes excess fatigue at higher doses DVT proph -heparin SQ (Jesus Manuel Flores D.O.)
[2016-12-03] MEDS: INSULIN ASPART 100 UNITS/ML 3 ML PEN SC SCH ×4 (08:31→22:08)
[2016-12-03] MEDS: INSULIN GLARGINE SOLOSTAR 100 UNITS/ML 3 ML PEN SC SCH (08:32)
[2016-12-03 08:54] LABS: BUN/CREATININE RATIO 29.6 (10-20); CALCIUM 9.1 mg/dl (8.5-10.1); CREATININE 1.7 mg/dl (0.60-1.20); MAGNESIUM 1.9 mg/dl (1.8-2.4); POTASSIUM 4.1 mmol/L (3.5-5.1)
[2016-12-03] MEDS ORDERED: CARVEDILOL 3.125 MG TAB PO SCH (09:00)
[2016-12-03] MEDS: CARVEDILOL 3.125 MG TAB PO SCH ×2 (09:13→22:01)
[2016-12-03] MEDS ORDERED: LORAZEPAM INJ 0.5 MG in SYRINGE 0.25 ML IV PRN (10:15)
--- NOTE | 2016-12-03 11:39 | Pharmacy Progress Note ---
Glycemic Control: Progress Nt Date of Service Dec 03, 2016. Scope Glycemic Pharmacist consulted by Dr De Souza on 11/29/16 for glycemic control and to write orders per [facility] inpatient glycemic control protocol. Objective Accuchecks BSG (last 24hrs): Test 12/02/16 12:00 12/02/16 16:21 12/02/16 19:55 12/03/16 07:19 Bedside Glucose 249 mg/dl (70-90) 146 mg/dl (70-90) 163 mg/dl (70-90) 150 mg/dl (70-90) Test 12/03/16 08:00 12/03/16 11:15 Random Glucose 162 mg/dl (70-99) Bedside Glucose 254 mg/dl (70-90) Laboratory Data (last 24hrs) Test 12/03/16 08:00 Anion Gap 12.0 mmol/L BUN/Creatinine Ratio 29.6 Blood Urea Nitrogen 50 mg/dl Creatinine 1.70 mg/dl Potassium Level 4.1 mmol/L Sodium Level 139 mmol/L HbA1c: Test 11/30/16 06:13 Hemoglobin A1c 8.8 %(4.5-5.6) H Recent Pertinent Medications Outpatient Anti-diabetic Regimen: * Humalog sliding scale * Toujeo 16 units SQ daily * A1c = 8.8 % 11/30/16 The patient is currently receiving: * Basal insulin: Lantus 16 units every 24 hours * Correctional Insulin: NovoLog Correction per scale ACHS Goal Range: Low 110 mg/dL - High 140 mg/dL Correction Factor: 20 mg/dL/unit * Prandial insulin: Per carb ratio of 1 unit per 7 grams CHO consumed Risk Factors for Insulin Resistance: * Diet: T2DM/AHA Assessment & Plan Assessment & Plan ASSESSMENT: * 66yo T2DM female with sub-optimal degree of outpatient control per recent A1c of 8.8%, goal A1c should be less than 8% based on age and co-morbidities. * Pt is maintained on SQ basal bolus insulin regimen as an outpatient. Pt uses Toujeo, concentrated insulin glargine {U-300}, which is not-stocked/non- formulary. Pt changed to Lantus, standard concentration insulin glargine {U-100 } insulin for short term inpatient use. * Per the runway model recommendation, when changing from Toujeo to Lantus, it is recommended to reduce the initial dose by ~ 20% which was done on 11/30/16 (13 units given). * AM fasting BSG slightly elevated at 162mg/dl today -> give additional 3 units of Lantus with lunch and increase basal insulin to 19 units SQ daily * pre-lunch BSG elevated regularly, however other BSGs are near-goal. I hesitate to mikey one bsg per day. * ADA & AACE recommend a goal blood sugar range 140-180 mg/dl for the majority of critically ill & non-critically ill patients. However, more stringent targets may be selected in individual cases. Will utilize more stringent target of 110-140mg/dl based on pt age. PLAN FOR INPATIENT GLYCEMIC CONTROL: * Continue Basal insulin with LANTUS * give 3 units SQ x1 now * Increase daily dose to 19 units SQ daily * will need transitioned back to Toujeo at discharge * Correctional Insulin with NOVOLOG per scale ACHS or Q6hrs while NPO * Goal Range: Low 110 mg/dL - High 140 mg/dL * Correction Factor: 20 mg/dL/unit * Nutritional / Prandial insulin per carb ratio of 1 unit per 7 grams CHO consumed RECOMMENDATIONS FOR DISCHARGE: * pending * Please note that the plan above was derived based on current level of insulin resistance and hospital stress. These recommendations are appropriate for inpatient admission only. Plan of care upon discharge will need to be reassessed to avoid potential outpatient hypo/hyperglycemia. Thank you.
[2016-12-03] MEDS ORDERED: INSULIN GLARGINE SOLOSTAR 100 UNITS/ML 3 ML PEN SC SCH (11:45)
--- NOTE | 2016-12-03 11:52 | Nephrology Progress Note ---
Nephrology Progress Note Date of Service Dec 03, 2016. Chief Complaint F/U for hypertensive urgency. Subjective Ayana was seen and examined in her room this morning. Blood pressure seems to be improving but systolic blood pressure most of the time still above 160.. Electrolyte remain stable with stable renal function. Currently she asymptomatic, denies any further episode dyspnea or headache. Review of Systems A complete review of systems was performed. Pertinent positives are noted above. All other systems are negative. Vital Signs Last 8 Hrs Date Time Temp Pulse Resp B/P Pulse Ox O2 Delivery O2 Flow Rate FiO2 12/03/16 07:43 37.2 66 18 120/87 97 Room Air 12/03/16 00:17 36.6 68 18 167/83 94 Room Air I & O 24-Hour Column 12/03/16 08:00 Intake Total 800 ml Output Total 1200 ml Balance -400 ml Last Recorded Weight Weight (Kilograms): 94.600 Physical Exam GENERAL: middle aged, female, AAA x 3, not in any distress. NECK: Supple, no JVD. RESPIRATORY: Normal breathing efforts, no accessory muscle use, clear to auscultation bilaterally, no wheezes or rales. CARDIOVASCULAR: S1, S2 normal, rate rhythm regular. EXTREMITY: No lower extremity edema NEURO: speech fluent. 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[employer]) Laboratory Results Past 24 Hours Test 12/02/16 12:00 12/02/16 16:21 12/02/16 19:55 12/03/16 04:44 Bedside Glucose 249 mg/dl (70-90) 146 mg/dl (70-90) 163 mg/dl (70-90) Test 12/03/16 07:19 Bedside Glucose 150 mg/dl (70-90) Allergies Coded Allergies: Sulfa Antibiotics (Verified Allergy, Intermediate, RASH, 11/30/16) Penicillins (Verified Allergy, Mild, 11/29/16) Meperidine (Verified Adverse Reaction, Intermediate, hallucinates, 11/29/16) Lisinopril (Verified Adverse Reaction, Mild, COUGHING, 11/30/16) Medications Current Inpatient Medications Medications (Trade) Dose Ordered Sig/Isaías Route Start Time Stop Time Status Last Admin Dose Admin Ioversol (Optiray 320) 111 ml UD PRN IV 11/29/16 15:00 12/03/16 14:59 Acetaminophen (Tylenol Tab) 650 mg Q4H PRN PO 11/29/16 17:15 12/29/16 17:14 12/02/16 17:26 650 MG Zolpidem Tartrate (Ambien Tab) 5 mg HSZ PRN PO 11/29/16 17:15 12/29/16 17:14 Ondansetron HCl (Zofran Inj) 4 mg Q6H PRN IV 11/29/16 17:15 12/29/16 17:14 Nitroglycerin (Nitrostat Tab) 0.4 mg UD PRN SL 11/29/16 17:15 12/29/16 17:14 Morphine Sulfate (MoRPHine SULFATE INJ) 2 mg Q30M PRN IV 11/29/16 17:15 12/13/16 17:14 Polyethylene (Miralax Powder Packet) 17 gm DAILY PRN PO 11/29/16 17:15 12/29/16 17:14 Clopidogrel Bisulfate (plAVix TAB) 75 mg DAILY PO 11/30/16 09:00 12/30/16 08:59 12/02/16 07:44 75 MG Rosuvastatin Calcium (Crestor Tab) 40 mg HS PO 11/29/16 21:00 12/29/16 20:59 12/02/16 20:20 40 MG Fish Oil ([place]-3 (Purified Fish Oil) Cap) 1 gm DAILY PO 11/30/16 09:00 12/30/16 08:59 12/02/16 07:44 1 GM Miscellaneous Information (Consult Glycemic Management Pharmacy) 1 ea UD PRN N/A 11/29/16 19:52 12/29/16 19:51 Insulin Aspart (novoLOG ASPART) SLIDING SCALE G... ACHS SC 11/29/16 21:00 12/29/16 20:59 12/02/16 20:24 2 UNITS Glucose (Glucose 40% Gel) 15-30 GRAMS 15 GRAMS... UD PRN PO 11/29/16 18:45 12/29/16 18:44 Glucose (Glucose Chew Tab) 4-8 Tablets 4 Tabl... UD PRN PO 11/29/16 18:45 12/29/16 18:44 Dextrose (Dextrose 50% 50ML Syringe) 25-50ML OF 50% DW IV FOR... UD PRN IV 11/29/16 18:45 12/29/16 18:44 Glucagon (Glucagon Inj) 1 mg UD PRN SQ 11/29/16 18:45 12/29/16 18:44 Fenofibrate (Fenofibrate) 160 mg DAILY PO 12/01/16 09:00 12/31/16 08:59 12/02/16 07:42 160 MG Hydralazine HCl (HydrALAZINE INJ) 5 mg Q6H PRN IV. 12/01/16 00:00 12/31/16 00:00 12/02/16 04:34 5 MG Valsartan (Diovan Tab) 320 mg DAILY PO 12/01/16 09:00 12/31/16 08:59 12/02/16 07:41 320 MG Insulin Glargine (Lantus Solostar Pen) SEE PROTOCOL TEXT DAILY SC 12/01/16 09:00 12/31/16 08:59 12/02/16 08:09 16 UNIT Chlorthalidone (Hygroton Tab) 25 mg QAM PO 12/02/16 09:00 01/01/17 08:59 12/02/16 07:43 25 MG Spironolactone (Aldactone Tab) 100 mg QAM PO 12/03/16 09:00 01/02/17 08:59 Carvedilol (Coreg Tab) 6.25 mg BID PO 12/03/16 09:00 01/02/17 08:59 UNV Impression (1) Stage 3 chronic kidney disease (2) Hypertensive emergency (3) Proteinuria (4) Diabetes mellitus Ayana Is a 66-year-old female with history of hypertension, coronary artery disease, stage 3 chronic kidney disease, renovascular disease status post left renal artery stent admitted to the hospital with hypertensive emergency and SOB. She received nitro paste and hydralazine with improvement in blood pressure but still her blood pressure above goal and has been variable. Currently she is otherwise asymptomatic. She has stage 3 chronic kidney disease , baseline creatinine around 1.5-1.8 and creatinine is at baseline on admission with other electrolyte acceptable. Has history of renovascular disease previously had left renal artery stent placed in 2013. Had coronary artery stent placed in 2009. She has been on carvedilol, diovan and Maxzide at home but her blood pressure has been progressively running high over last few weeks. On admission her troponin was mildly elevated without any significant EKG changes. her shortness of breath resolved and denies any chest pain. Had renal artery Doppler done but the test was inconclusive as right renal artery could not be visualized but at left renal artery without any he stenosis. Also has history of diabetes with proteinuria and diabetes seems to be poorly-controlled. Echo with normal EF. Random cortisol. Differentials for hypertensive emergency including right renal artery stenosis, hyperaldosteronism, pheochromocytoma OR medication noncompliance. Patient reports taking medications serum regularly, other clinical feature is not suggestive of pheochromocytoma. Renal artery Doppler was nondiagnostic. No history of hypokalemia. Recommendations --continue on Diovan 320 milligram, will give in the evening, --continue chlorthalidone 25 milligram and increase spironolactone to 100 mg / d. Continue on prn hydralazine --wait for MRA and w/u for pheochromocytoma and other secondary causes. Will follow.
--- NOTE | 2016-12-03 13:24 | DIAGNOSTIC IMAGING REPORT ---
MR ANGIOGRAM OF THE ABDOMEN COMBO CLINICAL HISTORY: Hypertensive urgency. COMPARISON STUDY: Abdominal CT dated 10/12/2014. Renal artery ultrasound dated 11/30/2016. TECHNIQUE: MR angiogram of the abdomen is performed utilizing various T1 and T2-weighted sequences in the axial and coronal planes. Contrast-enhanced sequences are acquired following the IV administration of 15 cc of Magnevist. The examination is significantly degraded by large body habitus. 3-D reformats are created and assessed. FINDINGS: The abdominal aorta is normal in course and caliber noting advanced atherosclerotic calcification. There is high-grade stenosis seen in the distal abdominal aorta just above the aortic bifurcation. The minimum patent luminal diameter measures up to 5 mm. The iliac vessels are patent as imaged. There is no evidence of aortic dissection. The celiac trunk and superior mesenteric artery appear widely patent. The inferior mesenteric artery is not well visualized and may be occluded. There is susceptibility artifact at the origin of the left renal artery consistent with a known left renal artery stent. The patency of the stent cannot be assessed. The mid to distal left renal artery appear patent. There is atherosclerotic plaque and irregularity at the origin of the right renal artery. No significant stenosis is seen. The renal veins are patent bilaterally. The liver and spleen are grossly normal as visualized. A subcentimeter cyst is identified in the right hepatic lobe. The gallbladder is normal in appearance. No gallstones are identified. The pancreas is atrophic. The adrenal glands are grossly unremarkable. The kidneys demonstrate cortical atrophy and are without hydronephrosis. A 4 cm cyst arises from the lower pole of the right kidney. There is no evidence of abdominal or retroperitoneal lymphadenopathy. No bowel obstruction is seen. There is no pleural effusion. A small hiatal hernia is noted. The bony structures are intact as visualized. IMPRESSION: 1. There is no evidence of right renal artery stenosis. 2. A stent is noted in the proximal left renal artery. Patency of the stent cannot be assessed due to susceptibility artifact. The mid to distal left renal artery is patent. 3. There is advanced atherosclerotic plaque and irregularity throughout the abdominal aorta. There is focal high-grade stenosis in the distal abdominal aorta just above the iliac bifurcation. 4. The kidneys demonstrate cortical atrophy and are without hydronephrosis. 5. Additional findings as above. Dictated: 12/03/2016 12:40 PM Transcribed: 12/03/2016 1:24 PM VALERIA_Isra Electronically signed by: Carlos A Nazario M.D. 12/03/2016 1:42 PM Dictated Date/Time: 12/03/2016 12:40 PM
[2016-12-03] MEDS: VALSARTAN 80 MG TAB PO SCH (20:23)
[2016-12-03] MEDS: ROSUVASTATIN CALCIUM 20 MG TAB PO SCH (22:02)
[2016-12-03] MEDS: HEPARIN SOD 5000 UNIT/0.5 ML CARP SQ SCH (22:03)
[2016-12-04] VITALS (8 sets, daily range): BP systolic 113–191; BP diastolic 73–114; PULSE 70–80; TEMP 36.7–37.2; O2SAT 93–97
[2016-12-04] MEDS: ACETAMINOPHEN 325 MG TAB PO PRN ×2 (07:44→11:38)
[2016-12-04] MEDS: HydrALAZINE HCL 20 MG/ML VIAL IV. PRN (07:44)
[2016-12-04] MEDS: CHLORTHALIDONE 25 MG TAB PO SCH (07:50)
[2016-12-04] MEDS: OMEGA-3 (PURIFIED FISH OIL) 1 GM CAP PO SCH (07:51)
[2016-12-04] MEDS: SPIRONOLACTONE 100 MG TAB PO SCH (07:51)
[2016-12-04] MEDS: CLOPIDOGREL BISULFATE 75 MG TAB PO SCH (07:51)
[2016-12-04] MEDS: CARVEDILOL 3.125 MG TAB PO SCH ×2 (07:51→22:02)
[2016-12-04] MEDS: FENOFIBRATE 160 MG TAB PO SCH (07:52)
[2016-12-04] MEDS: INSULIN ASPART 100 UNITS/ML 3 ML PEN SC SCH ×2 (08:00→14:05)
[2016-12-04 08:44] LABS: BUN/CREATININE RATIO 28.9 (10-20); CALCIUM 9.1 mg/dl (8.5-10.1); CREATININE 1.7 mg/dl (0.60-1.20); POTASSIUM 4.2 mmol/L (3.5-5.1)
--- NOTE | 2016-12-04 10:33 | Surgery Consultation ---
Consultation Date of Service Dec 04, 2016. Chief Complaint distal aortic stenosis, renal art stenosis History of Present Illness The patient is a 66 year old female with hx of severe HTN, ckd, renal art stenosis s/p stent, CAD s/p coronary stent, seen in consultation today for distal aortic stenosis noted on MRA. Pt admitted with hypertensive urgency and SOB. Stent was evaluated by US and non diagnostic, MRA does not visualize stent well. Pt states hx of difficulty ambulating d/t "disc problems." She states she requires a stroller to lean on when ambulating on her block at home and still has to stop 2-3 times before she walks a city block. Describes discomfort as BL leg "tiredness." Denie MANDUJANO, fever, chills, chest pain, SOB presently, abd pain, N/V, rest pain, ulcerations, other complaints. Vitals Vital Signs Past 12 Hours Date Time Temp Pulse Resp B/P Pulse Ox O2 Delivery O2 Flow Rate FiO2 12/04/16 08:17 36.8 80 18 190/106 97 Room Air 191/114 12/04/16 08:00 95 Room Air 12/04/16 03:26 36.7 74 18 146/80 94 Room Air 12/04/16 00:45 96 Room Air 12/04/16 00:00 70 166/73 Allergies Coded Allergies: Sulfa Antibiotics (Verified Allergy, Intermediate, RASH, 11/30/16) Penicillins (Verified Allergy, Mild, 11/29/16) Meperidine (Verified Adverse Reaction, Intermediate, hallucinates, 11/29/16) Lisinopril (Verified Adverse Reaction, Mild, COUGHING, 11/30/16) Home Medications Scheduled Carvedilol (Coreg), 3.125 MG PO BID Clopidogrel (Plavix), 75 MG PO DAILY Fenofibrate (Tricor), 160 MG PO DAILY Fish Oil-Cholecalciferol (Fish Oil + D3), 1 CAP PO DAILY Insulin Glargine (Toujeo Solostar), 16 UNITS SQ DAILY Rosuvastatin Calcium (Crestor), 40 MG PO HS Triamterene/Hctz (Triamterene/Hctz 37.5-25MG), 1 TAB PO DAILY Valsartan (Diovan), 160 MG PO DAILY Scheduled PRN Insulin Lispro (Human) (Humalog Kwikpen), UNITS SC UD PRN for BSG Coverage Problem List Medical Problems: (1) Chronic kidney disease (2) Diabetes mellitus (3) DVT prophylaxis (4) Hypertension (5) Proteinuria (6) Stage 3 chronic kidney disease Surgical / Medical History Hx Cardiac Surgery: Yes (Heart Stent 2009) Hx Abdominal Surgery: No Hx Cancer Surgery: No Hx Thoracic Surgery: No Hx Orthopedic: No Hx Urinary Tract Surgery: No Past Medical/Surgical History: Angioplasty/Stent, Diabetes, High Cholesterol, Hypertension, Kidney Disease Family History FH: heart disease Social History Smoking Status: Former Smoker Hx Tobacco Use In Past Year?: No Hx Alcohol Use - Type & Amnt: No Hx Substance Use -Type & Amnt: No Review of Systems Constitutional: + malaise, No chills, No fever Skin: No change in color Eyes: No visual changes ENMT: No sore throat Respiratory: + BAPTISTE, + orthopnea, + short of breath, No cough, No hemoptysis Cardiovascular: + edema, + intermittent claudication, No chest pain, No palpitations, No syncope Gastrointestinal: No nausea, No vomiting Genitourinary - Female: No dysuria, No hematuria Neurologic: No dizziness, No headache, No numbness, No tingling Physical Exam Constitutional: General Apperance: well-nourished, well-developed, obese Level of Distress: NAD, chronically ill (mildly) Psychiatric: Mental Status: active & alert, normal mood, normal affect Orientation: oriented except where noted, to time, to place, to person Memory: recent memory normal, remote memory normal Head: normocephalic, atraumatic Eyes: EOM: EOMI ENMT: normal ENT inspection, hearing grossly normal Neck: supple, trachea midline Lungs: Respiratory effort: no dyspnea Auscultation: no rales/crackles, no rhonchi, decreased breath sounds Cardiovascular: Apical Impulse: not displaced Heart Auscultation: RRR, no murmurs, no rubs, no gallops Peripheral Pulses: Pulses: full and equal, in all extremities except if noted Bruits: none appreciated Carotid Pulse: normal on the left, normal on the right Radial Pulse: normal on the left, normal on the right Femoral Pulse: normal on the left, decreased on the right Posterior Tibialis Pulse: decreased on the left, decreased on the right Dorsalis Pedis Pulse: decreased on the left, decreased on the right Abdomen: Bowel Sounds: normal Inspection & Palpation: soft, non-distended, no tenderness, guarding & rebound Musculoskeletal: normal strength (5/5 throughout), normal tone Extremities: Upper Right: no cyanosis, no edema, no varicosities Upper Left: no cyanosis, no edema, no varicosities Lower Right: no cyanosis, no varicosities, no palpable cord, edema (+1) Lower Left: no cyanosis, no varicosities, no palpable cord, edema (+1) Neurologic: Cranial Nerves: grossly intact Sensation: grossly intact Assessment and Plan ASSESSMENT and PLAN: Aortoiliac disease Hx renal artery stenosis Carotid stenosis Pt relates hx of carotid stenosis by US, states was 80% on one side 8 yrs ago, and has not been checked since. Will order new US of carotids. Pt's claudication sx significant, may have some element of neuroclaudication as well. Pt's MRA does not visualize her renal stent d/t shadowing, and renal art US nondiagnostic. Recommend BLE arterial US. Will also discuss with Freddy whether reordering renal art US with pt being NPO would be beneficial.
[2016-12-04] MEDS: AMLODIPINE BESYLATE 5 MG TAB PO SCH (10:35)
[2016-12-04] MEDS: INSULIN GLARGINE SOLOSTAR 100 UNITS/ML 3 ML PEN SC SCH (10:39)
[2016-12-04] MEDS: HEPARIN SOD 5000 UNIT/0.5 ML CARP SQ SCH ×3 (10:40→22:03)
[2016-12-04] MEDS ORDERED: CONSULT PHARMACY STA (10:59)
--- NOTE | 2016-12-04 11:09 | Hospitalist Progress Note ---
Hospitalist Progress Note Date of Service Dec 04, 2016. (Rose Rojas ., NEO) Subjective Pt evaluation today including: conversation w/ patient, physical exam, chart review, lab review, conversation w/ valuation consultant, review of inpatient medication list Voiding: no voiding problems, no incontinence Patient states she is feeling well. +headache. She is eating and drinking OK. Patient denies any fever, chills, sweats, lightheadedness, dizziness, vision changes, CP, palpitations, edema, SOB, wheezing, cough, abdominal pain, nausea, vomiting, diarrhea, urinary symptoms, melena, numbness/tingling, weakness, muscle/joint pain, anxiety/depression, active bleeding, or new skin discoloration/changes. (Rose Rojas ., BOBC) Medications Current Inpatient Medications Medications (Trade) Dose Ordered Sig/Isaías Route Start Time Stop Time Status Last Admin Dose Admin Acetaminophen (Tylenol Tab) 650 mg Q4H PRN PO 11/29/16 17:15 12/29/16 17:14 12/04/16 07:44 650 MG Zolpidem Tartrate (Ambien Tab) 5 mg HSZ PRN PO 11/29/16 17:15 12/29/16 17:14 Ondansetron HCl (Zofran Inj) 4 mg Q6H PRN IV 11/29/16 17:15 12/29/16 17:14 Nitroglycerin (Nitrostat Tab) 0.4 mg UD PRN SL 11/29/16 17:15 12/29/16 17:14 Morphine Sulfate (MoRPHine SULFATE INJ) 2 mg Q30M PRN IV 11/29/16 17:15 12/13/16 17:14 Polyethylene (Miralax Powder Packet) 17 gm DAILY PRN PO 11/29/16 17:15 12/29/16 17:14 Clopidogrel Bisulfate (plAVix TAB) 75 mg DAILY PO 11/30/16 09:00 12/30/16 08:59 12/04/16 07:51 75 MG Rosuvastatin Calcium (Crestor Tab) 40 mg HS PO 11/29/16 21:00 12/29/16 20:59 12/03/16 22:02 40 MG Fish Oil ([place]-3 (Purified Fish Oil) Cap) 1 gm DAILY PO 11/30/16 09:00 12/30/16 08:59 2/7/17 07:51 1 GM Miscellaneous Information (Consult Glycemic Management Pharmacy) 1 ea UD PRN N/A 11/29/16 19:52 12/29/16 19:51 Insulin Aspart (novoLOG ASPART) SLIDING SCALE G... ACHS SC 11/29/16 21:00 12/29/16 20:59 12/04/16 08:00 7 UNITS Glucose (Glucose 40% Gel) 15-30 GRAMS 15 GRAMS... UD PRN PO 11/29/16 18:45 12/29/16 18:44 Glucose (Glucose Chew Tab) 4-8 Tablets 4 Tabl... UD PRN PO 11/29/16 18:45 12/29/16 18:44 Dextrose (Dextrose 50% 50ML Syringe) 25-50ML OF 50% DW IV FOR... UD PRN IV 11/29/16 18:45 12/29/16 18:44 Glucagon (Glucagon Inj) 1 mg UD PRN SQ 11/29/16 18:45 12/29/16 18:44 Fenofibrate (Fenofibrate) 160 mg DAILY PO 12/01/16 09:00 12/31/16 08:59 12/04/16 07:52 160 MG Hydralazine HCl (HydrALAZINE INJ) 5 mg Q6H PRN IV. 12/01/16 00:00 12/31/16 00:00 12/04/16 07:44 5 MG Chlorthalidone (Hygroton Tab) 25 mg QAM PO 12/02/16 09:00 01/01/17 08:59 12/04/16 07:50 25 MG Spironolactone (Aldactone Tab) 100 mg QAM PO 12/03/16 09:00 01/02/17 08:59 12/04/16 07:51 100 MG Valsartan (Diovan Tab) 320 mg DAILY@2000 PO 12/03/16 20:00 12/31/16 08:59 12/03/16 20:23 320 MG Carvedilol 3.125 mg 3.125 mg BID PO 12/03/16 10:00 01/02/17 09:59 12/04/16 07:51 3.125 MG Lorazepam/Syringe (Ativan Inj/ Syringe) 0.5 ml @ 0.5 mls/min ONE PRN IV 12/03/16 10:15 01/02/17 10:14 12/03/16 10:59 0.5 MLS/MIN Insulin Glargine (Lantus Solostar Pen) SEE PROTOCOL QAM SC 12/04/16 09:00 01/03/17 08:59 12/04/16 10:39 19 UNIT Heparin Sodium (Porcine) (Heparin Sq 5000 Unit/0.5ml) 5,000 unit Q12 SQ 12/03/16 21:00 01/02/17 20:59 12/04/16 10:40 5,000 UNIT Amlodipine Besylate (Norvasc Tab) 10 mg QAM PO 12/04/16 10:00 01/03/17 09:59 12/04/16 10:35 10 MG Miscellaneous Information (Pharmacy Consult) 1 ea NOW STAT N/A 12/04/16 10:59 12/04/16 11:00 UNV (Rose Rojas PA-C) Objective Vital Signs Date Time Temp Pulse Resp B/P Pulse Ox O2 Delivery O2 Flow Rate FiO2 12/04/16 08:17 36.8 80 18 190/106 97 Room Air 191/114 12/04/16 08:00 95 Room Air 12/04/16 03:26 36.7 74 18 146/80 94 Room Air 12/04/16 00:45 96 Room Air 12/04/16 00:00 70 166/73 12/03/16 21:58 68 192/93 12/03/16 20:22 71 200/94 98 Room Air 12/03/16 16:00 Room Air 12/03/16 15:16 36.5 72 18 119/75 93 Room Air 12/03/16 13:20 36.6 67 16 155/84 96 Room Air (Rose Rojas PA-C) Physical Exam General Appearance: no apparent distress, + obese Eyes: normal inspection, PERRL ENT: hearing grossly normal Neck: supple Respiratory/Chest: lungs clear, no respiratory distress, no accessory muscle use Cardiovascular: regular rate, rhythm, + systolic murmur Abdomen: normal bowel sounds, non tender, soft Extremities: no pedal edema, no calf tenderness Neurologic/Psychiatric: alert, normal mood/affect, oriented x 3 Skin: normal color, warm/dry, no rash (Rose Rojas ., PA-C) Laboratory Results Last 24 Hours Test 12/03/16 11:15 12/03/16 16:17 12/03/16 21:07 12/04/16 07:16 Bedside Glucose 254 mg/dl 280 mg/dl 230 mg/dl 144 mg/dl Test 12/04/16 07:35 Sodium Level 139 mmol/L Potassium Level 4.2 mmol/L Chloride Level 105 mmol/L Carbon Dioxide Level 23 mmol/L Anion Gap 11.0 mmol/L Blood Urea Nitrogen 49 mg/dl Creatinine 1.70 mg/dl Est Creatinine Clear Calc Drug Dose 35.6 ml/min Estimated GFR () 35.8 Estimated GFR (Non- 30.9 BUN/Creatinine Ratio 28.9 Random Glucose 159 mg/dl Calcium Level 9.1 mg/dl (Rose Rojas ., PA-C) Assessment and Plan Hypertensive emergency, hx of renal artery stenosis s/p stent: - Renal artery Dopplers- Nondiagnostic assessment of the right renal artery. The right renal artery was not visualized. Visualized portions of the left renal artery are patent with normal velocities. The kidneys demonstrate mild cortical atrophy. - Consult Nephrology, appreciate recommendations. Will need outpatient f/u. - MRA- There is no evidence of right renal artery stenosis. A stent is noted in the proximal left renal artery. Patency of the stent cannot be assessed due to susceptibility artifact. The mid to distal left renal artery is patent. There is advanced atherosclerotic plaque and irregularity throughout the abdominal aorta. There is focal high-grade stenosis in the distal abdominal aorta just above the iliac bifurcation. The kidneys demonstrate cortical atrophy and are without hydronephrosis. - Consult vascular surgery, appreciate recommendations -- Repeat abdominal U/S. Check carotid U/S as patient reports hx of 80% stenosis. - Continue on Diovan 320 milligram PO HS, Chlorthalidone 25 milligram PO daily, Spironolactone to 100 PO daily. Continue on PRN Hydralazine -- Add Amlodipine 10 mg PO daily due to consistently high BPs (12/04) - Check TSH, aldosterone, metanephrines, and random cortisol AVELINO: - She had a sleep study in the past suggestive of mild AVELINO and a nocturnal pulse ox study in 04/2016 indicating she needed nocturnal oxygen. - Recommend f/u with PCP Elevated troponin, ?2/2 to uncontrolled HTN: - Trended troponin x3 - Consult cardiology, appreciate recommendations. Will need outpatient f/u. - ECHO- mild reduction in LV systolic function, otherwise no significant change. The left ventricle is normal in size. Left ventricular systolic function is borderline reduced. Ejection Fraction = 50-55%. There is borderline global hypokinesis of the left ventricle. There is severe concentric left ventricular hypertrophy. Grade I diastolic dysfunction, (abnormal relaxation pattern). There is mild mitral annular calcification. There is mild mitral regurgitation. The left atrium is borderline dilated. - Beta fartun, statin, ARB, and Plavix. She is not on Aspirin due to severe epistaxis in the past while on both ASA and Plavix. SOB, ?2/2 to uncontrolled HTN and underlying lung disease: - Pro-BNP is elevated, but she clinically does not appear to have evidence for heart failure. CXR- Emphysema with no acute cardiopulmonary abnormality. - hx of smoking, previous CXR suggestive of pulmonary disease. Recommend outpatient PFTs. Chronic kidney disease, stage 3: - Consulted nephrology - Follow BMP Diabetes mellitus: - Substitute Lantus for her usual Toujeo and aspart sliding scale for her usual lispro sliding scale -- Per patient, allergic to NovoLog. Pharmacy consult to switch to Humalog sliding scale coverage (12/04) - Pharm consult for glycemic management. - ha1c of 8.8 Vulvovaginal candidiasis: - Fluconazole 150mg x 1 dose Hyperlipidemia: - Continue Crestor and Fenofibrate DVT prophylaxis: - SCDs Code Status: - LEVEL I, FULL Dispo: - Discharge to home once medically stable. (Rose Rojas ., PA-C) BP noted - added amlodipine - BP improved nicely. dw vascular surgery - input appreciated. d/w Obinna MARKS hypertensive urgency - improving on amlodipine - but since AM pressure still quite high - wnat to follow to ensure stability in improvement (Jesus Manuel Flores, D.Indira.)
--- NOTE | 2016-12-04 12:52 | Nephrology Progress Note ---
Nephrology Progress Note Date of Service Dec 04, 2016. Chief Complaint Accelerated hypertension Subjective No acute events overnight. Ayana was seen and evaluated in her hospital room this morning. She denies shortness of breath. She denies chest pain. She denies palpitations. She has leg cramps at night which wake her from sleep. She denies significant claudication but ambulation is limited due to OA/DJD. Overall, she feels well. She remains frustrated by accelerated blood pressure. She was agreeable to starting amlodipine if BP does not improve. I discussed the plan of care with Dr. Hayes as well. Ayana also states that novolog gives her nausea. Review of Systems A complete review of systems was performed. Pertinent positives are noted above. All other systems are negative. Vital Signs Last 8 Hrs Date Time Temp Pulse Resp B/P Pulse Ox O2 Delivery O2 Flow Rate FiO2 12/04/16 08:17 36.8 80 18 190/106 97 Room Air 191/114 12/04/16 08:00 95 Room Air I & O 24-Hour Column 12/04/16 07:59 Intake Total 2000 ml Balance 2000 ml Last Recorded Weight Weight (Kilograms): 94.600 Physical Exam General Appearance: no apparent distress, + obese Head: normocephalic, atraumatic Eyes: normal inspection, sclerae normal ENT: normal ENT inspection, pharynx normal Neck: supple, no JVD Respiratory/Chest: lungs clear, no respiratory distress, no accessory muscle use Cardiovascular: regular rate, rhythm, no gallop Abdomen/GI: non tender, soft Neurologic/Psych: alert, oriented x 3 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[employer]) Laboratory Results Past 24 Hours 12/04/16 07:35 Test 12/03/16 16:17 12/03/16 21:07 12/04/16 07:16 12/04/16 07:35 Bedside Glucose 280 mg/dl (70-90) 230 mg/dl (70-90) 144 mg/dl (70-90) Anion Gap 11.0 mmol/L (3-11) Est Creatinine Clear Calc Drug Dose 35.6 ml/min Estimated GFR () 35.8 Estimated GFR (Non- 30.9 BUN/Creatinine Ratio 28.9 (10-20) Calcium Level 9.1 mg/dl (8.5-10.1) Test 12/04/16 12:08 Bedside Glucose 260 mg/dl (70-90) Allergies Coded Allergies: Sulfa Antibiotics (Verified Allergy, Intermediate, RASH, 11/30/16) Penicillins (Verified Allergy, Mild, 11/29/16) Meperidine (Verified Adverse Reaction, Intermediate, hallucinates, 11/29/16) Lisinopril (Verified Adverse Reaction, Mild, COUGHING, 11/30/16) Medications Current Inpatient Medications Medications (Trade) Dose Ordered Sig/Isaías Route Start Time Stop Time Status Last Admin Dose Admin Acetaminophen (Tylenol Tab) 650 mg Q4H PRN PO 11/29/16 17:15 12/29/16 17:14 12/04/16 11:38 650 MG Zolpidem Tartrate (Ambien Tab) 5 mg HSZ PRN PO 11/29/16 17:15 12/29/16 17:14 Ondansetron HCl (Zofran Inj) 4 mg Q6H PRN IV 11/29/16 17:15 12/29/16 17:14 Nitroglycerin (Nitrostat Tab) 0.4 mg UD PRN SL 11/29/16 17:15 12/29/16 17:14 Morphine Sulfate (MoRPHine SULFATE INJ) 2 mg Q30M PRN IV 11/29/16 17:15 12/13/16 17:14 Polyethylene (Miralax Powder Packet) 17 gm DAILY PRN PO 11/29/16 17:15 12/29/16 17:14 Clopidogrel Bisulfate (plAVix TAB) 75 mg DAILY PO 11/30/16 09:00 12/30/16 08:59 12/04/16 07:51 75 MG Rosuvastatin Calcium (Crestor Tab) 40 mg HS PO 11/29/16 21:00 12/29/16 20:59 12/03/16 22:02 40 MG Fish Oil (Harvard-3 (Purified Fish Oil) Cap) 1 gm DAILY PO 11/30/16 09:00 12/30/16 08:59 12/04/16 07:51 1 GM Miscellaneous Information (Consult Glycemic Management Pharmacy) 1 ea UD PRN N/A 11/29/16 19:52 12/29/16 19:51 Glucose (Glucose 40% Gel) 15-30 GRAMS 15 GRAMS... UD PRN PO 11/29/16 18:45 12/29/16 18:44 Glucose (Glucose Chew Tab) 4-8 Tablets 4 Tabl... UD PRN PO 11/29/16 18:45 12/29/16 18:44 Dextrose (Dextrose 50% 50ML Syringe) 25-50ML OF 50% DW IV FOR... UD PRN IV 11/29/16 18:45 12/29/16 18:44 Glucagon (Glucagon Inj) 1 mg UD PRN SQ 11/29/16 18:45 12/29/16 18:44 Fenofibrate (Fenofibrate) 160 mg DAILY PO 12/01/16 09:00 12/31/16 08:59 12/04/16 07:52 160 MG Hydralazine HCl (HydrALAZINE INJ) 5 mg Q6H PRN IV. 12/01/16 00:00 12/31/16 00:00 12/04/16 07:44 5 MG Chlorthalidone (Hygroton Tab) 25 mg QAM PO 12/02/16 09:00 01/01/17 08:59 12/04/16 07:50 25 MG Spironolactone (Aldactone Tab) 100 mg QAM PO 12/03/16 09:00 01/02/17 08:59 12/04/16 07:51 100 MG Valsartan (Diovan Tab) 320 mg DAILY@2000 PO 12/03/16 20:00 12/31/16 08:59 12/03/16 20:23 320 MG Carvedilol 3.125 mg 3.125 mg BID PO 12/03/16 10:00 01/02/17 09:59 12/04/16 07:51 3.125 MG Lorazepam/Syringe (Ativan Inj/ Syringe) 0.5 ml @ 0.5 mls/min ONE PRN IV 12/03/16 10:15 01/02/17 10:14 12/03/16 10:59 0.5 MLS/MIN Insulin Glargine (Lantus Solostar Pen) SEE PROTOCOL QAM SC 12/04/16 09:00 01/03/17 08:59 12/04/16 10:39 19 UNIT Heparin Sodium (Porcine) (Heparin Sq 5000 Unit/0.5ml) 5,000 unit Q12 SQ 12/03/16 21:00 01/02/17 20:59 12/04/16 10:40 5,000 UNIT Amlodipine Besylate (Norvasc Tab) 10 mg QAM PO 12/04/16 10:00 01/03/17 09:59 12/04/16 10:35 10 MG Insulin Human Lispro (humaLOG) SLIDING SCALE ACHS SC 12/04/16 16:30 01/03/17 16:29 Impression (1) Stage 3 chronic kidney disease (2) Hypertensive emergency (3) Proteinuria (4) Diabetes mellitus Ayana is a 66-year-old female with history of hypertension, coronary artery disease, stage 3 chronic kidney disease, renovascular disease status post left renal artery stent admitted to the hospital with hypertensive emergency and SOB. She received nitro paste and hydralazine with improvement in blood pressure but still her blood pressure above goal and has been variable. Currently she is otherwise asymptomatic. She has stage 3 chronic kidney disease , baseline creatinine around 1.5-1.8 and creatinine is at baseline on admission with other electrolyte acceptable. Has history of renovascular disease previously had left renal artery stent placed in 2013. Had coronary artery stent placed in 2009. She has been on carvedilol, losartan and Maxzide at home but her blood pressure has been progressively running high over last few weeks. On admission her troponin was mildly elevated without any significant EKG changes. her shortness of breath resolved and denies any chest pain. Had renal artery Doppler done but the test was inconclusive as right renal artery could not be visualized but at left renal artery without any he stenosis. Also has history of diabetes with proteinuria and diabetes seems to be poorly-controlled. Echo with normal EF. Random cortisol. Patient reports taking medications serum regularly, other clinical feature is not suggestive of pheochromocytoma. Renal artery doppler was nondiagnostic. No history of hypokalemia. MRA reviewed this morning suggestive of arterial disease involving the iliacs and distal abdominal aorta with no appreciable YANDEL in areas visualized. Recommendations --Diovan 320 mg/d --Start amlodipine 10 mg daily --Chlorthalidone 25 mg/d and spironolactone 200 mg daily --Sodium restrict diet --Appreciate vascular consult. No renal artery angio pending additional monitoring and medical management.
--- NOTE | 2016-12-04 13:51 | Pharmacy Progress Note ---
Glycemic Control: Progress Nt Date of Service Dec 04, 2016. Scope Glycemic Pharmacist consulted by Dr De Souza on 11/29/16 for glycemic control and to write orders per [facility] inpatient glycemic control protocol. Objective Accuchecks BSG (last 24hrs): Test 12/03/16 16:17 12/03/16 21:07 12/04/16 07:16 12/04/16 07:35 Bedside Glucose 280 mg/dl (70-90) 230 mg/dl (70-90) 144 mg/dl (70-90) Random Glucose 159 mg/dl (70-99) Test 12/04/16 12:08 Bedside Glucose 260 mg/dl (70-90) Laboratory Data (last 24hrs) Test 12/04/16 07:35 Anion Gap 11.0 mmol/L BUN/Creatinine Ratio 28.9 Blood Urea Nitrogen 49 mg/dl Creatinine 1.70 mg/dl Potassium Level 4.2 mmol/L Sodium Level 139 mmol/L HbA1c: Test 11/30/16 06:13 Hemoglobin A1c 8.8 % (4.5-5.6) H Recent Pertinent Medications Outpatient Anti-diabetic Regimen: * Humalog sliding scale * Toujeo 16 units SQ daily * A1c = 8.8 % 11/30/16 The patient is currently receiving: * Basal insulin: Lantus 19 units every 24 hours * Correctional Insulin: NovoLog Correction per scale ACHS Goal Range: Low 110 mg/dL - High 140 mg/dL Correction Factor: 20 mg/dL/unit * Prandial insulin: Per carb ratio of 1 unit per 7 grams CHO consumed Risk Factors for Insulin Resistance: * Diet: T2DM/AHA Assessment & Plan Assessment & Plan ASSESSMENT: * 66yo T2DM female with sub-optimal degree of outpatient control per recent A1c of 8.8%, goal A1c should be less than 8% based on age and co-morbidities. * Pt is maintained on SQ basal bolus insulin regimen as an outpatient. Pt uses Toujeo, concentrated insulin glargine {U-300}, which is not-stocked/non- formulary. Pt changed to Lantus, standard concentration insulin glargine {U-100 } insulin for short term inpatient use. * Per the key entry operator recommendation, when changing from Toujeo to Lantus, it is recommended to reduce the initial dose by ~ 20% which was done on 11/30/16 (13 units given). * AM fasting BSG slightly elevated at 159mg/dl today -> increase basal insulin to 20 units SQ daily * pre-lunch BSG elevated regularly in addition to evening BSGs yesterday - tighten Cf/Cr * Provider would like to change NovoLog --> Humalog per pt request/allergy * ADA & AACE recommend a goal blood sugar range 140-180 mg/dl for the majority of critically ill & non-critically ill patients. However, more stringent targets may be selected in individual cases. Will utilize more stringent target of 110-140mg/dl based on pt age. PLAN FOR INPATIENT GLYCEMIC CONTROL: * Lantus 20 units SQ daily * will need transitioned back to Toujeo at discharge * Correctional Insulin with HUMALOG per scale ACHS or Q6hrs while NPO * Goal Range: Low 110 mg/dL - High 140 mg/dL * Correction Factor: 18 mg/dL/unit * Nutritional / Prandial insulin per carb ratio of 1 unit per 6 grams CHO consumed RECOMMENDATIONS FOR DISCHARGE: * may need additional insulin (basal?) at discharge as she is requiring more than her home dose of Toujeo currently. * Please note that the plan above was derived based on current level of insulin resistance and hospital stress. These recommendations are appropriate for inpatient admission only. Plan of care upon discharge will need to be reassessed to avoid potential outpatient hypo/hyperglycemia. Thank you.
[2016-12-04 14:32] LABS: NORMETANEPHRINE PLASMA 153 pg/mL (<=148); TOTAL METANEPHRINE PLASMA 153 pg/mL (<=205)
[2016-12-04] MEDS: INSULIN HUMAN LISPRO (humaLOG) 100 UNITS/ML VIAL SC SCH ×2 (18:54→21:00)
[2016-12-04] MEDS: VALSARTAN 80 MG TAB PO SCH (22:00)
[2016-12-04] MEDS: ROSUVASTATIN CALCIUM 20 MG TAB PO SCH (22:02)
--- NOTE | 2016-12-04 22:03 | DIAGNOSTIC IMAGING REPORT ---
BILATERAL CAROTID DOPPLER STUDY HISTORY: Carotid stenosis carotid stenosis COMPARISON: None. TECHNIQUE: Real-time, grayscale, and color Doppler sonography of the carotid arteries was performed. Imaging reviewed in the transverse and longitudinal planes. All measurements were calculated based on NASCET criteria. FINDINGS: Antegrade flow is seen in the bilateral vertebral arteries. The brachial pressures are hemodynamically similar. Moderate plaque dimension bilaterally The peak systolic velocity within the right ICA is 226. The right systolic ratio is 1.5. The peak systolic velocity within the left ICA is 127. The left systolic ratio is 0.7. IMPRESSION: 70-80% stenosis right internal carotid artery. 30% stenosis left internal carotid artery. Note is made of retrograde flow within the left vertebral vessel Electronically signed by: Sagar Rooney M.D. 12/04/2016 10:02 PM Dictated Date/Time: 12/04/2016 10:00 PM
--- NOTE | 2016-12-04 22:05 | DIAGNOSTIC IMAGING REPORT ---
ULTRASOUND ART DOP LOWER EXT BILAT CLINICAL HISTORY: PAD hypertension COMPARISON STUDY: None Findings: Biphasic and are triphasic waveforms within the bulk of the thighs. No significant velocity increase characteristics. Monophasic waveforms within the peroneal arteries bilaterally and anterior tibial artery on the right The following blood pressure indices were obtained. On the right, posterior tibial is 0.73 and dorsalis pedis is 0.67. On the left, posterior tibial is 0.68 and dorsalis pedis is 0.66. IMPRESSION: Moderate multifocal arterial occlusive change of the legs bilaterally. No evidence for a critical stenosis. Electronically signed by: Sagar Rooney M.D. 12/04/2016 10:04 PM Dictated Date/Time: 12/04/2016 10:02 PM
[2016-12-05] VITALS: BP 123/67; PULSE 82; TEMP 36.8; O2SAT 94
[2016-12-05 02:30] VITALS: O2SAT 94
[2016-12-05 07:25] VITALS: BP 161/81; PULSE 69; TEMP 36.8; O2SAT 94
[2016-12-05] MEDS: CLOPIDOGREL BISULFATE 75 MG TAB PO SCH (07:51)
[2016-12-05] MEDS: CARVEDILOL 3.125 MG TAB PO SCH (07:51)
[2016-12-05] MEDS: CHLORTHALIDONE 25 MG TAB PO SCH (07:54)
[2016-12-05] MEDS: FENOFIBRATE 160 MG TAB PO SCH (07:54)
[2016-12-05] MEDS: AMLODIPINE BESYLATE 5 MG TAB PO SCH (07:54)
[2016-12-05] MEDS: OMEGA-3 (PURIFIED FISH OIL) 1 GM CAP PO SCH (07:54)
[2016-12-05] MEDS: SPIRONOLACTONE 100 MG TAB PO SCH (07:54)
[2016-12-05] MEDS: HEPARIN SOD 5000 UNIT/0.5 ML CARP SQ SCH (08:36)
[2016-12-05] MEDS: INSULIN HUMAN LISPRO (humaLOG) 100 UNITS/ML VIAL SC SCH ×3 (08:41→17:11)
[2016-12-05] MEDS: INSULIN GLARGINE SOLOSTAR 100 UNITS/ML 3 ML PEN SC SCH (08:41)
[2016-12-05 08:44] LABS: BUN/CREATININE RATIO 28.9 (10-20); CALCIUM 8.9 mg/dl (8.5-10.1); CREATININE 1.8 mg/dl (0.60-1.20); POTASSIUM 4.2 mmol/L (3.5-5.1)
--- NOTE | 2016-12-05 12:55 | Discharge Summary ---
Discharge Summary Admission Date: Nov 29, 2016 at 17:17 Discharge Date: Dec 05, 2016 Discharge Disposition: Home Principal Diagnosis: HTN emergency Problems/Secondary Diagnoses: 1. CKD, stage III 2. Elevated troponin 3. SOB 4. Vulvovaginal candidiasis 5. Diabetes 6. Hyperlipidemia Immunizations: Have You Had Influenza Vaccine: Yes History of Tetanus Vaccine?: Yes History of Pneumococcal: Yes History of Hepatitis B Vaccine: Unknown Procedures: SINGLE VIEW CHEST CLINICAL HISTORY: Dyspnea. FINDINGS: An AP, portable, upright chest radiograph is compared to study dated 05/23/2016 and correlated with chest CT dated 07/28/2010. The examination is degraded by portable technique and patient rotation. The heart is top normal for projection and there is atherosclerotic calcification of the thoracic aorta. The pulmonary vasculature is noncongested. Emphysema and chronic interstitial thickening is similar to previous. No airspace consolidation, large pleural effusion, or pneumothorax is seen. There is minimal left basilar atelectasis. The skeletal structures are osteopenic. The bony thorax is grossly intact. IMPRESSION: Emphysema with no acute cardiopulmonary abnormality. Electronically signed by: Carlos A Nazario M.D. 11/29/2016 2:49 PM Dictated Date/Time: 11/29/2016 2:47 PM The status of this report is Signed. Draft = Not yet reviewed or approved by Radiologist. Signed = Reviewed and approved by Radiologist. DOPPLER ULTRASOUND OF THE RENAL ARTERIES CLINICAL HISTORY: Hypertensive emergency. COMPARISON STUDY: Abdominal CT dated 10/12/2014. TECHNIQUE: Doppler sonography of the renal arteries was performed to assess renal artery stenosis. Images are reviewed in the transverse and longitudinal planes. The Examination is significantly degraded by large body habitus and overlying bowel. FINDINGS: The kidneys demonstrate mild cortical atrophy and are without hydronephrosis. The right kidney measures 10.4 cm in length and the left kidney measures 10.5 cm in length. A 4 cm cyst arises from the right lower pole. On the right, intrarenal arterial resistive indices range from 0.45 to 0.78. Intrarenal arterial waveforms are normal with brisk upstrokes. The right renal artery was not visualized. On the left, intrarenal arterial resistive indices range from 0.56 to 0.71. Intrarenal arterial waveforms are normal with brisk upstrokes. The proximal and mid portions of the left renal artery were not visualized. The imaged distal left renal arterial waveform is normal, and velocities within the left renal artery measure up to 56 cm/sec. The left renal vein is patent. The abdominal aorta is patent. Velocities within the abdominal aorta measure up to 109 cm/s. IMPRESSION: 1. Nondiagnostic assessment of the right renal artery. The right renal artery was not visualized. 2. Visualized portions of the left renal artery are patent with normal velocities. 3. The kidneys demonstrate mild cortical atrophy. Electronically signed by: Carlos A Nazario M.D. 11/30/2016 10:50 AM Dictated Date/Time: 11/30/2016 10:45 AM The status of this report is Signed. Draft = Not yet reviewed or approved by Radiologist. Signed = Reviewed and approved by Radiologist. MR ANGIOGRAM OF THE ABDOMEN COMBO CLINICAL HISTORY: Hypertensive urgency. COMPARISON STUDY: Abdominal CT dated 10/12/2014. Renal artery ultrasound dated 11/30/2016. TECHNIQUE: MR angiogram of the abdomen is performed utilizing various T1 and T2-weighted sequences in the axial and coronal planes. Contrast-enhanced sequences are acquired following the IV administration of 15 cc of Magnevist. The examination is significantly degraded by large body habitus. 3-D reformats are created and assessed. FINDINGS: The abdominal aorta is normal in course and caliber noting advanced atherosclerotic calcification. There is high-grade stenosis seen in the distal abdominal aorta just above the aortic bifurcation. The minimum patent luminal diameter measures up to 5 mm. The iliac vessels are patent as imaged. There is no evidence of aortic dissection. The celiac trunk and superior mesenteric artery appear widely patent. The inferior mesenteric artery is not well visualized and may be occluded. There is susceptibility artifact at the origin of the left renal artery consistent with a known left renal artery stent. The patency of the stent cannot be assessed. The mid to distal left renal artery appear patent. There is atherosclerotic plaque and irregularity at the origin of the right renal artery. No significant stenosis is seen. The renal veins are patent bilaterally. The liver and spleen are grossly normal as visualized. A subcentimeter cyst is identified in the right hepatic lobe. The gallbladder is normal in appearance. No gallstones are identified. The pancreas is atrophic. The adrenal glands are grossly unremarkable. The kidneys demonstrate cortical atrophy and are without hydronephrosis. A 4 cm cyst arises from the lower pole of the right kidney. There is no evidence of abdominal or retroperitoneal lymphadenopathy. No bowel obstruction is seen. There is no pleural effusion. A small hiatal hernia is noted. The bony structures are intact as visualized. IMPRESSION: 1. There is no evidence of right renal artery stenosis. 2. A stent is noted in the proximal left renal artery. Patency of the stent cannot be assessed due to susceptibility artifact. The mid to distal left renal artery is patent. 3. There is advanced atherosclerotic plaque and irregularity throughout the abdominal aorta. There is focal high-grade stenosis in the distal abdominal aorta just above the iliac bifurcation. 4. The kidneys demonstrate cortical atrophy and are without hydronephrosis. 5. Additional findings as above. Dictated: 12/03/2016 12:40 PM Transcribed: 12/03/2016 1:24 PM VALERIA_Isra Electronically signed by: Carlos A Nazario M.D. 12/03/2016 1:42 PM Dictated Date/Time: 12/03/2016 12:40 PM The status of this report is Signed. Draft = Not yet reviewed or approved by Radiologist. Signed = Reviewed and approved by Radiologist. ULTRASOUND ART DOP LOWER EXT BILAT CLINICAL HISTORY: PAD hypertension COMPARISON STUDY: None Findings: Biphasic and are triphasic waveforms within the bulk of the thighs. No significant velocity increase characteristics. Monophasic waveforms within the peroneal arteries bilaterally and anterior tibial artery on the right The following blood pressure indices were obtained. On the right, posterior tibial is 0.73 and dorsalis pedis is 0.67. On the left, posterior tibial is 0.68 and dorsalis pedis is 0.66. IMPRESSION: Moderate multifocal arterial occlusive change of the legs bilaterally. No evidence for a critical stenosis. Electronically signed by: Sagar Rooney M.D. 12/04/2016 10:04 PM Dictated Date/Time: 12/04/2016 10:02 PM The status of this report is Signed. Draft = Not yet reviewed or approved by Radiologist. Signed = Reviewed and approved by Radiologist. BILATERAL CAROTID DOPPLER STUDY HISTORY: Carotid stenosis carotid stenosis COMPARISON: None. TECHNIQUE: Real-time, grayscale, and color Doppler sonography of the carotid arteries was performed. Imaging reviewed in the transverse and longitudinal planes. All measurements were calculated based on NASCET criteria. FINDINGS: Antegrade flow is seen in the bilateral vertebral arteries. The brachial pressures are hemodynamically similar. Moderate plaque dimension bilaterally The peak systolic velocity within the right ICA is 226. The right systolic ratio is 1.5. The peak systolic velocity within the left ICA is 127. The left systolic ratio is 0.7. IMPRESSION: 70-80% stenosis right internal carotid artery. 30% stenosis left internal carotid artery. Note is made of retrograde flow within the left vertebral vessel Electronically signed by: Sagar Rooney M.D. 12/04/2016 10:02 PM Dictated Date/Time: 12/04/2016 10:00 PM The status of this report is Signed. Draft = Not yet reviewed or approved by Radiologist. Signed = Reviewed and approved by Radiologist. ECHOCARDIOGRAM Interpretation Summary * Name: CAMPOS CRAWFORD Study Date: 12/01/2016 10:27 AM BP: 177/91 mmHg * Patient Location: [facility]\S\89\S\1 HR: 66 * : 1950 (M/d/yyyy) Gender: Female Height: 63 in * Age: 66 yrs Ethnicity: [place] Weight: 206 lb * Ordering Physician: Dionisio Knott * Referring Physician: Self, Referred * Performed By: Makenna Mcgovern RCS * * Reason For Study: MALIGNANT HTN * BSA: 2.0 m2 * -- Conclusions -- * Compared with 05/24/16 study, mild reduction in LV systolic function, otherwise no significant change. * The left ventricle is normal in size. * Left ventricular systolic function is borderline reduced. * Ejection Fraction = 50-55%. * There is borderline global hypokinesis of the left ventricle. * There is severe concentric left ventricular hypertrophy. * Grade I diastolic dysfunction, (abnormal relaxation pattern). * There is mild mitral annular calcification. * There is mild mitral regurgitation. * The left atrium is borderline dilated. Procedure Details * A complete two-dimensional transthoracic echocardiogram was performed (2D, M- mode, Doppler and color flow Doppler). * The study was technically limited. Left Ventricle * The left ventricle is normal in size. * There is severe concentric left ventricular hypertrophy. * Left ventricular systolic function is borderline reduced. * Ejection Fraction = 50-55%. * There is borderline global hypokinesis of the left ventricle. Right Ventricle * The right ventricle is normal in size and function. Atria * The left atrium is borderline dilated. * Right atrial size is normal. Mitral Valve * There is mild mitral annular calcification. * The mitral valve is grossly normal. * There is mild mitral regurgitation. Tricuspid Valve * The tricuspid valve is normal in structure and function. * Significant tricuspid regurgitation is absent. Aortic Valve * The aortic valve is normal in structure and function. * There is no significant aortic regurgitation. Pulmonic Valve * The pulmonic valve is not well seen, but is grossly normal. * There is no significant pulmonary regurgitation. Great Vessels * The aortic root is normal size. * Aortic arch of normal dimension. * No obvious dissection could be visualized. * The pulmonary artery is normal size. Pericardium/Pleural * There is no pericardial effusion. Great Vessels * Normal inferior vena cava diameter and respiratory variation suggests normal central venous pressure. Left Ventricular Diastolic Function * Grade I diastolic dysfunction, (abnormal relaxation pattern). MMode 2D Measurements and Calculations IVSd 2.3 cm IVSs 2.9 cm LVIDd 5.5 cm LVIDs 3.6 cm LVPWd 1.4 cm LVPWs 1.7 cm IVS/LVPW 1.7 FS 34.3 % EDV(Teich) 147.5 ml ESV(Teich) 54.9 ml EF(Teich) 62.8 % EDV(cubed) 166.6 ml ESV(cubed) 47.2 ml EF(cubed) 71.7 % % IVS thick 22.8 % % LVPW thick 27.2 % LV mass(C)d 511.9 grams LV mass(C)dI 261.4 grams/m\S\2 LV mass(C)s 424.3 grams LV mass(C)sI 216.7 grams/m\S\2 SV(Teich) 92.6 ml SI(Teich) 47.3 ml/m\S\2 SV(cubed) 119.4 ml SI(cubed) 61.0 ml/m\S\2 Ao root diam 3.4 cm Ao root area 9.2 cm\S\2 LA dimension 4.0 cm LA/Ao 1.2 LVOT diam 2.0 cm LVOT area 3.1 cm\S\2 LVAd ap4 30.2 cm\S\2 LVLd ap4 8.8 cm EDV(MOD-sp4) 82.7 ml EDV(sp4-el) 88.0 ml LVAs ap4 22.5 cm\S\2 LVLs ap4 7.5 cm ESV(MOD-sp4) 57.0 ml ESV(sp4-el) 57.3 ml EF(MOD-sp4) 31.1 % EF(sp4-el) 34.9 % LVAd ap2 34.0 cm\S\2 LVLd ap2 8.5 cm EDV(MOD-sp2) 110.3 ml EDV(sp2-el) 115.8 ml LVAs ap2 24.7 cm\S\2 LVLs ap2 8.0 cm ESV(MOD-sp2) 64.3 ml ESV(sp2-el) 64.7 ml EF(MOD-sp2) 41.7 % EF(sp2-el) 44.1 % LVLd %diff -3.87 % EDV(MOD-bp) 98.7 ml LVLs %diff 6.5 % ESV(MOD-bp) 62.7 ml EF(MOD-bp) 36.5 % SV(MOD-sp4) 25.8 ml SI(MOD-sp4) 13.2 ml/m\S\2 SV(MOD-sp2) 46.0 ml SI(MOD-sp2) 23.5 ml/m\S\2 SV(MOD-bp) 36.0 ml SI(MOD-bp) 18.4 ml/m\S\2 SV(sp4-el) 30.7 ml SI(sp4-el) 15.7 ml/m\S\2 SV(sp2-el) 51.1 ml SI(sp2-el) 26.1 ml/m\S\2 Doppler Measurements and Calculations MV E max mercy 105.7 cm/sec MV A max mercy 137.5 cm/sec MV E/A 0.77 MV P1/2t max mercy 108.3 cm/sec MV P1/2t 101.4 msec MVA(P1/2t) 2.2 cm\S\2 MV dec slope 312.6 cm/sec\S\2 MV dec time 0.21 sec Ao V2 max 176.8 cm/sec Ao max PG 12.5 mmHg Ao max PG (full) 4.8 mmHg TRACIE(V,A) 2.4 cm\S\2 TRACIE(V,D) 2.4 cm\S\2 LV V1 max PG 7.7 mmHg LV V1 max 138.7 cm/sec MR max mercy 585.7 cm/sec MR max PG 137.2 mmHg PA V2 max 147.1 cm/sec PA max PG 8.7 mmHg Created: Initialized: 12/01/16; 1435 <Electronically signed by Adriel Alcazar M.D.> Signed: 12/03/16 1111 Adriel Alcazar M.D. The status of this report is Signed. Draft = Not yet reviewed or approved by Group Worker. Signed = Reviewed and approved by Group Worker. Consultations: Nephrology- Dr. Haile and Dr. Sandoval Vascular surgery- Dr. Hayes and Tess Jiang Cardiology- Dr. Knott (Rose Rojas, PALaureenC) Medication Reconciliation New Medications: Insulin Glargine (Lantus Solostar) 100 Unit/Ml Inj 20 UNITS SC QAM, #600 UNITS Amlodipine Besylate (Amlodipine Besylate) 5 Mg Tab 10 MG PO QAM, #30 TAB brand necessary Chlorthalidone (Chlorthalidone) 25 Mg Tab 25 MG PO QAM for 30 Days, #30 TAB NS Spironolactone (Spironolactone) 100 Mg Tab 100 MG PO QAM for 30 Days, #30 TAB Valsartan (Diovan) 80 Mg Tab 320 MG PO DAILY@2000 for 30 Days, #120 TAB NS Continued Medications: Carvedilol (Coreg) 3.125 Mg Tab 3.125 MG PO BID, TAB Clopidogrel (Plavix) 75 Mg Tab 75 MG PO DAILY Fenofibrate (Tricor) 160 Mg Tab 160 MG PO DAILY, TAB Fish Oil-Cholecalciferol (Fish Oil + D3) 1 Cap Cap 1 CAP PO DAILY Insulin Lispro (Human) (Humalog Kwikpen) 100 Unit/Ml Inj UNITS SC UD PRN for BSG Coverage COVERAGE DIRECTED BY SLIDING SCALE Rosuvastatin Calcium (Crestor) 40 Mg Tab 40 MG PO HS, TAB Discontinued Medications: Insulin Glargine (Toujeo Solostar) 300 Unit/Ml Inj 16 UNITS SQ DAILY Triamterene/Hctz (Triamterene/Hctz 37.5-25MG) 1 Tab Tab 1 TAB PO DAILY, TAB Valsartan (Diovan) 160 Mg Tab 160 MG PO DAILY, TAB Discharge Exam Review of Systems: Constitutional: No chills, No fatigue, No fever, No sweats, No weakness Respiratory: No cough, No hemoptysis, No shortness of breath Cardiovascular: No chest pain, No edema, No palpitations Abdomen: No constipation, No diarrhea, No nausea, No pain, No vomiting Musculoskeletal: No calf pain, No joint pain, No muscle pain, No swelling Genitourinary - Female: No dysuria, No hematuria Neurologic: No numbness/tingling, No weakness Psychiatric: No anxiety, No depression symptoms Hematologic / Lymphatic: No abnormal bleeding/bruising Integumentary: No itch, No new/changing skin lesions, No rash Physical Exam: General Appearance: no apparent distress, + obese Eyes: normal inspection, PERRL ENT: hearing grossly normal Neck: supple Respiratory/Chest: lungs clear, no respiratory distress, no accessory muscle use Cardiovascular: regular rate, rhythm, + systolic murmur Abdomen / GI: normal bowel sounds, non tender, soft Extremities: no calf tenderness, no pedal edema Neurologic/Psychiatric: alert, normal mood/affect, oriented x 3 Skin: normal color, warm/dry, no rash (Rose Rojas, PA-C) Hospital Course Hypertensive emergency, hx of renal artery stenosis s/p stent: - Renal artery Dopplers- Nondiagnostic assessment of the right renal artery. The right renal artery was not visualized. Visualized portions of the left renal artery are patent with normal velocities. The kidneys demonstrate mild cortical atrophy. - Consult Nephrology, appreciate recommendations. Will need outpatient f/u. - MRA- There is no evidence of right renal artery stenosis. A stent is noted in the proximal left renal artery. Patency of the stent cannot be assessed due to susceptibility artifact. The mid to distal left renal artery is patent. There is advanced atherosclerotic plaque and irregularity throughout the abdominal aorta. There is focal high-grade stenosis in the distal abdominal aorta just above the iliac bifurcation. The kidneys demonstrate cortical atrophy and are without hydronephrosis. - Consult vascular surgery, appreciate recommendations -- Check carotid U/S and bilateral lower extremity U/S. - Continue on Diovan 320 milligram PO HS, Chlorthalidone 25 milligram PO daily, Spironolactone to 100 PO daily. Continue on PRN Hydralazine -- Add Amlodipine 10 mg PO daily due to consistently high BPs (12/04) - Check TSH, aldosterone, metanephrines, and random cortisol Prior to discharge, I spoke with Tess Weathers PA-C with vascular surgery; patient OK for discharge, they will arrange 6 month follow-up for patient. Per patient, Nephrology saw patient this AM, and will call patient will follow-up appointment. Patient is to take Diovan 320 milligram PO HS, Chlorthalidone 25 milligram PO daily, Spironolactone to 100 PO daily, and Amlodipine 10 mg PO daily. Discussed all mediations with patient. She expressed full understanding. All questions/concerns were answered. AVELINO: - She had a sleep study in the past suggestive of mild AVELINO and a nocturnal pulse ox study in 04/2016 indicating she needed nocturnal oxygen. - Recommend f/u with PCP to discuss further At discharge, it was highly encouraged patient talk with PCP to further evaluate the diagnosis of AVELINO, which could be contributing to worsening HTN. Elevated troponin, ?2/2 to uncontrolled HTN: - Trended troponin x3 - Consult cardiology, appreciate recommendations. Will need outpatient f/u. - ECHO- mild reduction in LV systolic function, otherwise no significant change. The left ventricle is normal in size. Left ventricular systolic function is borderline reduced. Ejection Fraction = 50-55%. There is borderline global hypokinesis of the left ventricle. There is severe concentric left ventricular hypertrophy. Grade I diastolic dysfunction, (abnormal relaxation pattern). There is mild mitral annular calcification. There is mild mitral regurgitation. The left atrium is borderline dilated. - Beta fartun, statin, ARB, and Plavix. She is not on Aspirin due to severe epistaxis in the past while on both ASA and Plavix. At discharge, patient to continue Coreg 3.125 mg PO BID, Valsartan 320 mg PO daily, and Plavix 75 mg PO daily. Talked with patient about wanting to follow- up with Dr. Knott outpatient, as she does not have a special effects person. Patient verbalized that she will set-up outpatient appointment. SOB, ?2/2 to uncontrolled HTN and underlying lung disease: - Pro-BNP is elevated, but she clinically does not appear to have evidence for heart failure. CXR- Emphysema with no acute cardiopulmonary abnormality. - hx of smoking, previous CXR suggestive of pulmonary disease. Recommend outpatient PFTs. Patient was encouraged to follow-up with her PCP to further evaluate. Chronic kidney disease, stage 3: - Consulted nephrology - Follow BMP Diabetes mellitus: - Substitute Lantus for her usual Toujeo and aspart sliding scale for her usual lispro sliding scale -- Per patient, allergic to NovoLog. Pharmacy consult to switch to Humalog sliding scale coverage (12/04) - Pharm consult for glycemic management. - ha1c of 8.8 At discharge, patient wanted to be switched back to Lantus. She took Lantus in the past with better glycemic control. Script given for 1 month of Lantus. Patient was instructed to follow-up with PCP. Vulvovaginal candidiasis: - Fluconazole 150mg x 1 dose Hyperlipidemia: - Continue Crestor and Fenofibrate Continue medications at discharge DVT prophylaxis: - SCDs Code Status: - LEVEL I, FULL Dispo: - Discharge to home Total Time Spent: Greater than 30 minutes This includes examination of the patient, discharge planning, medication reconciliation, and communication with other providers. (Rose Rojas, PA-C) i personally examined pt and verified all andrews points w Obinna Rojas PAC feeling better wants to go home,all questions answered to the best of my ability. outpt f/u explained vitals noted - see EMR, nad, breathing unlabored. hypertensive urgency - improved. home on meds as above, ambulatory monitoring and ongoing f/u w PCP and nephrology vascular disease - ongoing f/u w PCP and vascular surgery otherwise as above Total Time Spent: Greater than 30 minutes (Jesus Manuel Flores D.O.) Discharge Instructions Please refer to the electronic Patient Visit Report (Discharge Instructions) for additional information. (Rose Rojas, PA-C) Follow-Up Please follow-up with your PCP within 5-7 days Please follow-up with Nephrology as instructed by them Please follow-up with Vascular surgery as instructed by them Please follow-up with Cardiology as instructed by them Please follow-up/keep all of your subspecialty appointments (Rose Rojas, PA-C) Additional Copies To Shay Hammond M.D.
[2016-12-05] MEDS ORDERED: SPRN100 PO (13:13)
[2016-12-05] MEDS ORDERED: HYG25 PO (13:13)
[2016-12-05] MEDS ORDERED: INSDGIPEN SC (13:13)
[2016-12-05] MEDS ORDERED: DVN80 PO (13:13)
--- NOTE | 2016-12-05 13:36 | Discharge Instructions ---
Discharge Instructions Admission Reason for Admission: Hyertensive Emergecy Discharge Discharge Diagnosis / Problem: Hypertensive emergency Discharge Goals Goal(s): Decrease discomfort, Improve function, Improve disease control, Learn about illness, Diagnostic testing, Therapeutic intervention, Prevent Disease Progression Activity Recommendations Activity Limitations: resume your previous activity Instructions / Follow-Up Instructions / Follow-Up Hypertension Medications: 1. Diovan 320 milligram by mouth every night 2. Chlorthalidone 25 milligram by mouth daily 3. Spironolactone to 100 by mouth daily 4. Amlodipine 10 mg by mouth daily 5. DISCONTINUE Maxzide It is recommended you get a sleep study to evaluate if you have obstructive sleep apnea (AVELINO),which could be worsening your hypertension. Please follow-up with your PCP to further discuss/investigate AVELINO. At admission, you had complaints of shortness of breath. This could be due to uncontrolled hypertension, and/or an underlying lung disease due to history of smoking. It is recommended you have pulmonary function test in the future. Please follow-up with your PCP to further discuss/investigate this. Please call to schedule a follow-up appointment with Cardiology. Chronic kidney disease, stage III: You will need to follow-up with Nephrology as instructed by them. Per you, Software Design Analyst, Dr. Sandoval said you will be called for an appointment. If you do not here from their office within a week, please call to follow-up. Please continue to drink plenty of fluids. Drink enough fluids to keep your urine light yellow/clear in color. Diabetes Mellitus: 1. Lantus 20 units SQ daily 2. Continue home Humalog sliding scale 3. STOP Toujeo Our family living educator has given you her information to get in touch with her if ever needed. Please do not hesitate to do so. Carotid artery stenosis (narrowing): Please follow-up with Vascular Surgery as directed by them. Please continue all regular home medications as prescribed to you Please follow-up with your PCP within 5-7 days Please follow-up/keep all of your subspecialty appointments Current Hospital Diet Patient's current hospital diet: AHA Diet (Heart Healthy), Diabetes Type 2 Diet Discharge Diet Recommended Diet: AHA Diet (Heart Healthy), Diabetes Type 2 Diet Procedures Procedures Performed: 1. Chest x-ray 2. Renal ultrasound 3. Abdomen MRA 4. Bilateral lower extremity ultrasound 5. Carotid ultrasound Pending Studies Studies pending at discharge: no Laboratory Results Last 24 Hours Test 12/04/16 16:16 12/04/16 21:52 12/05/16 07:13 12/05/16 07:50 Bedside Glucose 238 mg/dl 139 mg/dl 153 mg/dl Sodium Level 137 mmol/L Potassium Level 4.2 mmol/L Chloride Level 104 mmol/L Carbon Dioxide Level 22 mmol/L Anion Gap 11.0 mmol/L Blood Urea Nitrogen 52 mg/dl Creatinine 1.80 mg/dl Est Creatinine Clear Calc Drug Dose 33.6 ml/min Estimated GFR () 33.4 Estimated GFR (Non- 28.8 BUN/Creatinine Ratio 28.9 Random Glucose 150 mg/dl Calcium Level 8.9 mg/dl Test 12/05/16 11:21 Bedside Glucose 193 mg/dl Hemoglobin A1c Test 11/30/16 06:13 Range/Units Estimated Average Glucose 206 mg/dl Hemoglobin A1c 8.8 H 4.5-5.6 % Medical Emergencies . Who to Call and When: Medical Emergencies: If at any time you feel your situation is an emergency, please call 911 immediately. . Non-Emergent Contact Non-Emergency issues call your: Primary Care Provider Call Non-Emergent contact if: you have a fever, your pain is not controlled, your pain is worsening, your pain is unusual for you, your pain is concerning you, you have any medication questions . . "Provider Documentation" section prepared by Rose Rojas. VTE Core Measure Inpt VTE Proph given/why not?: Unfractionated heparin SQ, SCD's
--- NOTE | 2016-12-05 14:59 | Nephrology Progress Note ---
Nephrology Progress Note Date of Service Dec 05, 2016. Chief Complaint Accelerated hypertension Subjective Ayana was seen and evaluated in her hospital room this morning. Overall, she felt well and denied any acute complaints. She is ambulating in room without difficulty. She denies any lightheadedness of dizziness. Blood pressure improved. She states that she will schedule a sleep study as an outpatient. She would like to follow up with me in the nephrology clinic but would prefer if we make the appointment. Review of Systems A complete review of systems was performed. Pertinent positives are noted above. All other systems are negative. Vital Signs Last 8 Hrs Date Time Temp Pulse Resp B/P Pulse Ox O2 Delivery O2 Flow Rate FiO2 12/05/16 09:54 Room Air 94 12/05/16 08:00 Room Air 12/05/16 07:25 36.8 69 24 161/81 94 Room Air I & O 24-Hour Column 12/05/16 07:59 Output Total 0 ml Balance 0 ml Last Recorded Weight Weight (Kilograms): 94.600 Physical Exam General Appearance: WD/WN, no apparent distress Head: normocephalic, atraumatic Eyes: normal inspection, sclerae normal ENT: normal ENT inspection, pharynx normal Neck: supple, no JVD Respiratory/Chest: lungs clear, no respiratory distress, no accessory muscle use Cardiovascular: regular rate, rhythm, no edema Back: no CVA tenderness Abdomen/GI: non tender, soft Extremities/Musculoskelatal: normal inspection, no pedal edema Neurologic/Psych: alert, oriented x 3 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[employer]) Laboratory Results Past 24 Hours 12/05/16 07:50 Test 12/04/16 16:16 12/04/16 21:52 12/05/16 07:13 12/05/16 07:50 Bedside Glucose 238 mg/dl (70-90) 139 mg/dl (70-90) 153 mg/dl (70-90) Anion Gap 11.0 mmol/L (3-11) Est Creatinine Clear Calc Drug Dose 33.6 ml/min Estimated GFR () 33.4 Estimated GFR (Non- 28.8 BUN/Creatinine Ratio 28.9 (10-20) Calcium Level 8.9 mg/dl (8.5-10.1) Test 2/8/17 11:21 Bedside Glucose 193 mg/dl (70-90) Allergies Coded Allergies: Sulfa Antibiotics (Verified Allergy, Intermediate, RASH, 11/30/16) Penicillins (Verified Allergy, Mild, 11/29/16) Meperidine (Verified Adverse Reaction, Intermediate, hallucinates, 11/29/16) Lisinopril (Verified Adverse Reaction, Mild, COUGHING, 11/30/16) Medications Current Inpatient Medications Medications (Trade) Dose Ordered Sig/Isaías Route Start Time Stop Time Status Last Admin Dose Admin Acetaminophen (Tylenol Tab) 650 mg Q4H PRN PO 11/29/16 17:15 12/29/16 17:14 12/04/16 11:38 650 MG Zolpidem Tartrate (Ambien Tab) 5 mg HSZ PRN PO 11/29/16 17:15 12/29/16 17:14 Ondansetron HCl (Zofran Inj) 4 mg Q6H PRN IV 11/29/16 17:15 12/29/16 17:14 Nitroglycerin (Nitrostat Tab) 0.4 mg UD PRN SL 11/29/16 17:15 12/29/16 17:14 Morphine Sulfate (MoRPHine SULFATE INJ) 2 mg Q30M PRN IV 11/29/16 17:15 12/13/16 17:14 Polyethylene (Miralax Powder Packet) 17 gm DAILY PRN PO 11/29/16 17:15 12/29/16 17:14 Clopidogrel Bisulfate (plAVix TAB) 75 mg DAILY PO 11/30/16 09:00 12/30/16 08:59 12/05/16 07:51 75 MG Rosuvastatin Calcium (Crestor Tab) 40 mg HS PO 11/29/16 21:00 12/29/16 20:59 12/04/16 22:02 40 MG Fish Oil ([place]-3 (Purified Fish Oil) Cap) 1 gm DAILY PO 11/30/16 09:00 12/30/16 08:59 12/05/16 07:54 1 GM Miscellaneous Information (Consult Glycemic Management Pharmacy) 1 ea UD PRN N/A 11/29/16 19:52 12/29/16 19:51 Glucose (Glucose 40% Gel) 15-30 GRAMS 15 GRAMS... UD PRN PO 11/29/16 18:45 12/29/16 18:44 Glucose (Glucose Chew Tab) 4-8 Tablets 4 Tabl... UD PRN PO 11/29/16 18:45 12/29/16 18:44 Dextrose (Dextrose 50% 50ML Syringe) 25-50ML OF 50% DW IV FOR... UD PRN IV 11/29/16 18:45 12/29/16 18:44 Glucagon (Glucagon Inj) 1 mg UD PRN SQ 11/29/16 18:45 12/29/16 18:44 Fenofibrate (Fenofibrate) 160 mg DAILY PO 12/01/16 09:00 12/31/16 08:59 12/05/16 07:54 160 MG Hydralazine HCl (HydrALAZINE INJ) 5 mg Q6H PRN IV. 12/01/16 00:00 12/31/16 00:00 12/04/16 07:44 5 MG Chlorthalidone (Hygroton Tab) 25 mg QAM PO 12/02/16 09:00 01/01/17 08:59 12/05/16 07:54 25 MG Spironolactone (Aldactone Tab) 100 mg QAM PO 12/03/16 09:00 01/02/17 08:59 12/05/16 07:54 100 MG Valsartan (Diovan Tab) 320 mg DAILY@2000 PO 12/03/16 20:00 12/31/16 08:59 12/04/16 22:00 320 MG Carvedilol 3.125 mg 3.125 mg BID PO 12/03/16 10:00 01/02/17 09:59 12/05/16 07:51 3.125 MG Lorazepam/Syringe (Ativan Inj/ Syringe) 0.5 ml @ 0.5 mls/min ONE PRN IV 12/03/16 10:15 01/02/17 10:14 12/03/16 10:59 0.5 MLS/MIN Insulin Glargine (Lantus Solostar Pen) SEE PROTOCOL QAM SC 12/04/16 09:00 01/03/17 08:59 12/05/16 08:41 20 UNIT Heparin Sodium (Porcine) (Heparin Sq 5000 Unit/0.5ml) 5,000 unit Q12 SQ 12/03/16 21:00 01/02/17 20:59 12/04/16 10:40 5,000 UNIT Amlodipine Besylate (Norvasc Tab) 10 mg QAM PO 12/04/16 10:00 01/03/17 09:59 12/05/16 07:54 10 MG Insulin Human Lispro (humaLOG) SLIDING SCALE ACHS SC 12/04/16 16:30 01/03/17 16:29 12/05/16 12:21 14 UNITS Impression (1) Stage 3 chronic kidney disease (2) Hypertensive emergency (3) Proteinuria (4) Diabetes mellitus Ayana is a 66-year-old female with history of hypertension, coronary artery disease, stage 3 chronic kidney disease, renovascular disease status post left renal artery stent admitted to the hospital with hypertensive emergency and SOB. She received nitro paste and hydralazine with improvement in blood pressure but still her blood pressure above goal and has been variable. Currently she is otherwise asymptomatic. She has stage 3 chronic kidney disease , baseline creatinine around 1.5-1.8 and creatinine is at baseline on admission with other electrolyte acceptable. Has history of renovascular disease previously had left renal artery stent placed in 2013. Had coronary artery stent placed in 2009. She has been on carvedilol, losartan and Maxzide at home but her blood pressure has been progressively running high over last few weeks. On admission her troponin was mildly elevated without any significant EKG changes. her shortness of breath resolved and denies any chest pain. Had renal artery Doppler done but the test was inconclusive as right renal artery could not be visualized but at left renal artery without any he stenosis. Also has history of diabetes with proteinuria and diabetes seems to be poorly-controlled. Echo with normal EF. Random cortisol. Patient reports taking medications serum regularly, other clinical feature is not suggestive of pheochromocytoma. Renal artery doppler was nondiagnostic. No history of hypokalemia. MRA suggestive of arterial disease involving the iliacs and distal abdominal aorta with no appreciable YANDEL in areas visualized. Recommendations --Diovan 320 mg/d --Amlodipine 10 mg daily --Chlorthalidone 25 mg/d and spironolactone 200 mg daily --Sodium restrict diet --Appreciate vascular consult. No renal artery angio pending additional monitoring and medical management. --Follow up in the nephrology clinic in 2 weeks (appointment request scheduled)
--- NOTE | 2016-12-05 15:16 | Progress Note ---
Progress Note Date of Service: Dec 05, 2016. Subjective 66 yo f with multiple medical problems, including YANDEL s/p renal stent, carotid stenosis, PAD, aortoiliac disease, seen in f/u today. Pt states feeling much better since HTN under control today. Denies any new complaints and states is looking forward to d/c. Problem List Medical Problems: (1) Abnormal ECG Status: Acute (2) Chronic kidney disease Status: Chronic (3) Elevated troponin Status: Acute (4) Hypertensive emergency Status: Acute (5) Precordial chest pain Status: Acute (6) SOB (shortness of breath) Status: Acute Objective Vital Signs Vital Signs Past 12 Hours Date Time Temp Pulse Resp B/P Pulse Ox O2 Delivery O2 Flow Rate FiO2 12/05/16 09:54 Room Air 94 12/05/16 08:00 Room Air 12/05/16 07:25 36.8 69 24 161/81 94 Room Air Exam CONST: A&O x4, NAD, obese, generally healthy appearing female EXT: +1 distal pulses, brisk cap refill. + femoral pulses. Intake & Output 8-Hour Column 12/04/16 12/05/16 12/05/16 16:00 00:00 08:00 Output Total 0 ml Balance 0 ml 24-Hour Column 12/05/16 08:00 Output Total 0 ml Balance 0 ml Laboratory and Microbiology Results Past 24 Hours Test 12/04/16 16:16 12/04/16 21:52 12/05/16 07:13 12/05/16 07:50 Range/Units Bedside Glucose 238 139 153 70-90 mg/dl Sodium Level 137 136-145 mmol/L Potassium Level 4.2 3.5-5.1 mmol/L Chloride Level 104 98-107 mmol/L Carbon Dioxide Level 22 21-32 mmol/L Anion Gap 11.0 3-11 mmol/L Blood Urea Nitrogen 52 7-18 mg/dl Creatinine 1.80 0.60-1.20 mg/dl Est Creatinine Clear Calc Drug Dose 33.6 ml/min Estimated GFR () 33.4 Estimated GFR (Non- 28.8 BUN/Creatinine Ratio 28.9 10-20 Random Glucose 150 70-99 mg/dl Calcium Level 8.9 8.5-10.1 mg/dl Test 12/05/16 11:21 Range/Units Bedside Glucose 193 70-90 mg/dl ASSESSMENT and PLAN: Carotid stenosis PAD aortoiliac stenosis YANDEL Pt doing much better. OK for d/c home from vascular standpoint. Will see in office in 6 months with carotid US, renal art US and aortoiliac US. All results discussed with pt, she is agreeable to plan. Please call if needed.
[2016-12-05 15:24] VITALS: BP 148/82; PULSE 69; TEMP 36.8; O2SAT 94
[2016-12-05 16:00] VITALS: O2SAT 93
[2016-12-05] MEDS ORDERED: NRV5 PO (16:44)
[2016-12-05 16:48] VITALS: BP 148/82; PULSE 69; TEMP 36.8; O2SAT 94
== END 2016-12-05 17:45 | disposition home or self-care (01) | DRG 305 ==
LOC: ENRESERVTM → ENRESERVDT → EDBD 13:23 → C.EDC 13:24 → C.MED 17:17 → C.MS2W 12-02 13:17
PROVIDERS: ADMIT Hospitalist; ATTEND Family Medicine
DX: I16.1 Hypertensive emergency (principal); N18.3 Chronic kidney disease, stage 3 (moderate); R79.89 Other specified abnormal findings of blood chemistry; B37.3 Candidiasis of vulva and vagina; E11.65 Type 2 diabetes mellitus with hyperglycemia; I25.10 Atherosclerotic heart disease of native coronary artery without angina pectoris; R80.9 Proteinuria, unspecified; Z87.891 Personal history of nicotine dependence; Z79.4 Long term (current) use of insulin; G47.33 Obstructive sleep apnea (adult) (pediatric); E78.5 Hyperlipidemia, unspecified; N28.1 Cyst of kidney, acquired; I13.10 Hypertensive heart and chronic kidney disease without heart failure, with stage 1 through stage 4 chronic kidney disease, or unspecified chronic kidney disease; E78.00 Pure hypercholesterolemia, unspecified; I73.9 Peripheral vascular disease, unspecified; I65.29 Occlusion and stenosis of unspecified carotid artery; I35.0 Nonrheumatic aortic (valve) stenosis

== ENCOUNTER → 2017-01-11 | Outpatient (CLI) | payer OTHER ==
[~2017-01-11] MED LIST changes: +AMLO-114 PO; +CIPR-255 PO; +HYG25 PO; +INSDGIPEN SC; +INSU100I SC; -INSUINJ4 SQ; +METR-163 PO; +ONDA4TAB46 PO; +OXYC-57 PO; +SPRN100 PO
[2017-01-11 14:50] LABS: ALT/SGPT 29 U/L (12-78); AST/SGOT 12 U/L (15-37); BLOOD UREA NITROGEN 56 mg/dl (7-18); BUN/CREATININE RATIO 32.8 (10-20); CALCIUM 9.4 mg/dl (8.5-10.1); CARBON DIOXIDE 24 mmol/L (21-32); CHLORIDE 107 mmol/L (98-107); GLUCOSE 132 mg/dl (70-99); MAGNESIUM 1.6 mg/dl (1.8-2.4); POTASSIUM 4.9 mmol/L (3.5-5.1); SODIUM 139 mmol/L (136-145)
[2017-01-11 14:52] LABS: BASO % 0.4 %; BASO ABS # 0.04 K/uL (0-0.2); COMPLETE YES; EOS % 2.5 %; HEMATOCRIT 38.5 % (37-47); IG% 0.5 %; LYMPH % 17.7 %; LYMPH ABS # 1.88 K/uL (1.2-3.4); MEAN CELL VOLUME 82.3 fL (80-100); MEAN CORPUSCULAR HEMOGLOBIN 27.4 pg (25-34); MEAN CORPUSCULAR HGB CONC 33.2 g/dl (32-36); MONO % 8.9 %; PLATELET COUNT 218 K/uL (130-400); RED BLOOD COUNT 4.68 M/uL (4.2-5.4)
[2017-01-11 14:53] LABS: ALB/GLOB RATIO 0.8 (0.9-2); ALKALINE PHOSPHATASE 94 U/L (45-117); PHOSPHORUS 4.4 mg/dl (2.5-4.9)
== END | disposition home or self-care (01) ==
LOC: C.LAB1850 12:50
PROVIDERS: ATTEND Internal Medicine Nephrology
DX: I12.9 Hypertensive chronic kidney disease with stage 1 through stage 4 chronic kidney disease, or unspecified chronic kidney disease (principal); I25.10 Atherosclerotic heart disease of native coronary artery without angina pectoris; N18.3 Chronic kidney disease, stage 3 (moderate); I70.1 Atherosclerosis of renal artery; E78.5 Hyperlipidemia, unspecified

== ENCOUNTER → 2017-04-18 | Outpatient (CLI) | payer OTHER ==
[2017-04-18 16:35] LABS: BLOOD UREA NITROGEN 88 mg/dl (7-18); BUN/CREATININE RATIO 31.5 (10-20); CALCIUM 9.5 mg/dl (8.5-10.1); CARBON DIOXIDE 17 mmol/L (21-32); CHLORIDE 109 mmol/L (98-107); GLUCOSE 126 mg/dl (70-99); POTASSIUM 5.4 mmol/L (3.5-5.1); SODIUM 136 mmol/L (136-145)
[2017-04-18 16:36] LABS: PHOSPHORUS 4.1 mg/dl (2.5-4.9)
== END | disposition home or self-care (01) ==
LOC: C.LAB1850 15:13
PROVIDERS: ATTEND Internal Medicine Nephrology
DX: N18.3 Chronic kidney disease, stage 3 (moderate) (principal)

== ENCOUNTER → 2017-04-19 | Outpatient (CLI) | payer OTHER ==
[2017-04-19 13:18] LABS: URINE APPEARANCE CLOUDY (CLEAR); URINE BILIRUBIN NEG (NEG); URINE COLOR YELLOW; URINE EPITHELIAL CELL AUTO 20-30 /lpf (0-5); URINE NITRITE NEG (NEG); URINE SPECIFIC GRAVITY 1.022 (1.000-1.030); UROBILINOGEN NEG (NEG); ZZUR CULT IF INDIC CLEAN CATCH YES
[2017-04-19 13:32] LABS: MANUAL MICROSCOPIC REQUIRED? NO; REVIEW REQ? YES
[2017-04-19 14:02] LABS: URINE PATH CASTS 0-3 GRANULAR CASTS /lpf (0)
== END | disposition home or self-care (01) ==
LOC: C.LAB1850 12:15
PROVIDERS: ATTEND Internal Medicine Nephrology
DX: N18.3 Chronic kidney disease, stage 3 (moderate) (principal)

== ENCOUNTER → 2017-04-19 | Outpatient (CLI) | payer OTHER ==
--- NOTE | 2017-04-19 14:15 | DIAGNOSTIC IMAGING REPORT ---
ULTRASOUND KIDNEYS AND BLADDER CLINICAL HISTORY: Acute renal insufficiency. COMPARISON STUDY: Abdominal CT dated 10/12/2014. TECHNIQUE: Real-time, grayscale, and color flow sonography of the kidneys and bladder is performed. Images are reviewed in the transverse and longitudinal planes. FINDINGS: Kidneys: The kidneys demonstrate cortical atrophy. The right kidney measures 10.8 x 5.0 x 5.8 cm and the left kidney measures 10.1 x 4.3 x 3.9 cm. There is no hydronephrosis. No definite shadowing renal calculi are identified. A 5.1 cm exophytic cyst is again seen arising from the right lower pole. There is no sonographic evidence of contour deforming renal mass lesion. No perinephric fluid is identified. Bladder: The bladder is partially decompressed and grossly unremarkable. Ureteral jets were not seen. IMPRESSION: 1. The kidneys are atrophic and without hydronephrosis. 2. The partially decompressed bladder is grossly normal in appearance. Electronically signed by: Carlos A Nazario M.D. 04/19/2017 2:13 PM Dictated Date/Time: 04/19/2017 2:12 PM
== END | disposition home or self-care (01) ==
LOC: C.ULTRBC 13:42
PROVIDERS: ATTEND Internal Medicine Nephrology
DX: N17.9 Acute kidney failure, unspecified (principal)

== ENCOUNTER → 2017-04-24 | Outpatient (CLI) | payer OTHER ==
[2017-04-24 12:42] LABS: BLOOD UREA NITROGEN 63 mg/dl (7-18); BUN/CREATININE RATIO 31.3 (10-20); CALCIUM 9.3 mg/dl (8.5-10.1); CARBON DIOXIDE 20 mmol/L (21-32); CHLORIDE 107 mmol/L (98-107); GLUCOSE 153 mg/dl (70-99); PHOSPHORUS 3.1 mg/dl (2.5-4.9); POTASSIUM 5.5 mmol/L (3.5-5.1); SODIUM 136 mmol/L (136-145)
== END | disposition home or self-care (01) ==
LOC: C.LAB1850 11:20
PROVIDERS: ATTEND Internal Medicine Nephrology
DX: N18.3 Chronic kidney disease, stage 3 (moderate) (principal)

== ENCOUNTER → 2017-05-14 | Outpatient (CLI) | payer OTHER ==
[2017-05-14 13:58] LABS: BLOOD UREA NITROGEN 49 mg/dl (7-18); GLUCOSE 145 mg/dl (70-99)
[2017-05-14 13:59] LABS: CALCIUM 9.4 mg/dl (8.5-10.1); CARBON DIOXIDE 31 mmol/L (21-32); CHLORIDE 102 mmol/L (98-107); POTASSIUM 3.5 mmol/L (3.5-5.1); SODIUM 139 mmol/L (136-145)
[2017-05-14 14:01] LABS: PHOSPHORUS 2.8 mg/dl (2.5-4.9)
== END | disposition home or self-care (01) ==
LOC: C.LAB1850 11:48
PROVIDERS: ATTEND Internal Medicine Nephrology
DX: N18.3 Chronic kidney disease, stage 3 (moderate) (principal)

== ENCOUNTER 2017-06-24 08:57 | Emergency (ER) | payer OTHER ==
[~2017-06-24] VITALS: Ht 161.3 cm; Wt 98.7 kg
[~2017-06-24 08:57] MED LIST changes: -AMLO-114 PO; -CIPR-255 PO; -INSU100I SC; -METR-163 PO; -ONDA4TAB46 PO; -OXYC-57 PO; -TRIATAB3 PO
[2017-06-24 09:00] VITALS: TEMP 36.8; Ht 161.3 cm; Wt 98.7 kg
[2017-06-24] MEDS ORDERED: TRIATAB3 PO (09:31)
[2017-06-24] MEDS ORDERED: INSU100I SC ×2 (09:31)
[2017-06-24] MEDS ORDERED: AMLO-114 PO (09:31)
[2017-06-24] MEDS ORDERED: SODIUM CHLORIDE 0.9% 1000ML 1,000 ML IV STA (09:36)
[2017-06-24] MEDS ORDERED: ONDANSETRON INJ 2 MG/ML 2 ML VIAL IV STA (09:36)
[2017-06-24] MEDS ORDERED: OPTIRAY 320 IV PRN (09:45)
[2017-06-24 10:14] LABS: BASO % 0.4 %; BASO ABS # 0.04 K/uL (0-0.2); COMPLETE YES; EOS % 2.2 %; HEMATOCRIT 36.8 % (37-47); IG% 0.4 %; LYMPH % 14.9 %; LYMPH ABS # 1.69 K/uL (1.2-3.4); MEAN CORPUSCULAR HEMOGLOBIN 26.7 pg (25-34); MEAN CORPUSCULAR HGB CONC 31.8 g/dl (32-36); MEAN PLATELET VOLUME 10.4 fL (7.4-10.4); MONO % 7.9 %; NEUT % 74.2 %; PLATELET COUNT 294 K/uL (130-400); RED BLOOD COUNT 4.38 M/uL (4.2-5.4); WHITE BLOOD COUNT 11.34 K/uL (4.8-10.8)
[2017-06-24 10:22] LABS: BUN/CREATININE RATIO 20.9 (10-20); CALCIUM 9.2 mg/dl (8.5-10.1); CREATININE 1.5 mg/dl (0.60-1.20); POTASSIUM 3.6 mmol/L (3.5-5.1)
[2017-06-24 10:43] LABS: URINE APPEARANCE CLEAR (CLEAR); URINE BILIRUBIN NEG (NEG); URINE COLOR YELLOW; URINE EPITHELIAL CELL AUTO 20-30 /lpf (0-5); URINE NITRITE NEG (NEG); URINE PH 5.5 (4.5-7.5); URINE SPECIFIC GRAVITY 1.015 (1.000-1.030); UROBILINOGEN NEG (NEG)
[2017-06-24] MEDS: MoRPHine SULFATE 10 MG/ML CARP/VIAL IV PRN ×2 (10:53→12:32)
[2017-06-24 11:06] LABS: MANUAL MICROSCOPIC REQUIRED? NO; REVIEW REQ? NO
[2017-06-24 11:19] VITALS: O2SAT 96
--- NOTE | 2017-06-24 13:01 | DIAGNOSTIC IMAGING REPORT ---
ABD/PELVIS IV AND ORAL CONT HISTORY: 67 years-old Female acute abdominal pain with associated nausea. COMPARISON: CT abdomen and pelvis 10/12/2014 TECHNIQUE: Multiple axial CT images of the abdomen and pelvis were obtained following the intravenous administration of 116 mL Optiray 320. Oral contrast also used. A dose lowering technique was used consistent with the principals of GENET. FINDINGS: There is mild dependent bibasilar atelectasis. No pneumoperitoneum is identified. Imaged inferior cardiac chambers are unremarkable with coronary arterial calcifications noted. 6 mm low attenuating lesion involving the posterior right hepatic lobe is unchanged and nonspecific, statistically benign. Spleen, gallbladder and adrenal glands are unremarkable. There is moderate pancreatic atrophy. Low attenuating lesions of the kidneys bilaterally suggests cysts, largest of which is within the inferior pole right kidney, 2.4 x 3.9 cm. The ureters and urinary bladder are unremarkable. Uterus and adnexa are within normal limits. There is moderate mixed plaquing of the abdominal aorta with left renal arterial stent present. There is no bulky adenopathy identified. There is no bowel obstruction. There is wall thickening extending from the mid to distal transverse colon into the splenic flexure to the level of the distal descending colon with mild to moderate surrounding inflammatory stranding. Multiple diverticula are noted within this region. There is mild gaseous distention of the colon. No perforation or abscess identified. Trace fluid tracking along the right paracolic gutter is likely reactive. The appendix appears normal. Note is made of diastases recti. The bones are moderately demineralized. Intervertebral disc space narrowing posterior annular disc bulge is seen at the initial 3. IMPRESSION: 1. Circumferential wall thickening with mild to moderate surrounding inflammatory stranding extends from the mid transverse colon to the distal descending colon with multiple colonic diverticula seen within this distribution. Differential considerations would include acute diverticulitis or colitis, likely from infectious or inflammatory etiology. No associated abscess, perforation or obstruction. 2. Additional incidental findings as above. The above report was generated using voice recognition software. It may contain grammatical, syntax or spelling errors. Electronically signed by: Kenan Fernandez M.D. 06/24/2017 12:59 PM Dictated Date/Time: 06/24/2017 12:51 PM
--- NOTE | 2017-06-24 13:31 | EMERGENCY ROOM VISIT NOTE ---
ED Visit Note First contact with patient: 09:14 I have seen and examined this patient with the PA and generally agree with the treatment plan as discussed. Patient well-appearing, pain controlled, vital signs stable. No evidence of perforation or abscess on CT. Patient requesting admission. No vomiting, no fevers, doubt bacteremia/sepsis.
[2017-06-24] MEDS ORDERED: METRONIDAZOLE 250 MG TAB PO STA (14:06)
[2017-06-24] MEDS ORDERED: CIPROFLOXACIN 500 MG TAB PO STA (14:06)
[2017-06-24] MEDS ORDERED: ONDA4TAB46 PO ×2 (14:22→15:12)
[2017-06-24] MEDS ORDERED: METR-163 PO ×2 (14:22→15:12)
[2017-06-24] MEDS ORDERED: OXYC-57 PO ×2 (14:22→15:12)
[2017-06-24] MEDS ORDERED: CIPR-255 PO ×2 (14:22→15:12)
[2017-06-24 15:17] VITALS: BP 160/71; PULSE 69; O2SAT 91
--- NOTE | 2017-06-24 16:36 | EMERGENCY ROOM VISIT NOTE ---
ED Visit Note First contact with patient: 09:14 Chief Complaint: My stomach hurts. History of Present Illness: Ms. Mcnulty is a 67 year-old white female who is brought into the ED via wheelchair complaining of diffuse lower abdominal pain. Historically patient reports a history of diverticulitis Patient reports a gradual onset of lower abdominal pain that started approximately one week ago. Then on Saturday, 3 days ago, her pain became severe and constant. She describes her pain as a cramping and fullness sensation. She rates her discomfort 10/10. Her pain is nonradiating. Her pain worsens with eating. She has not identified any alleviating factors related to the pain. She has not taken any medications for pain prior to arrival at the hospital. Associated with her pain she reports that she has been nauseated but has not vomited, decreased appetite, she has been having small episodes of watery/mushy stool and she has been having chills no susan fever. Patient denies sweats, skin eruptions, skin color changes, upper respiratory tract symptoms, shortness of breath, chest pain, rectal bleeding, black/tarry stools, urinary symptoms, hematuria, vaginal bleeding, vaginal discharge, back/ flank pain. Review of Systems: As noted above in history of present illness. All body systems were reviewed and found to be negative as noted above. Past Medical History: As previously noted, chronic kidney disease, diabetes, hypertension, stage III chronic kidney disease. Current Medications: Medications Dose Route/Sig Max Daily Dose Days Date Category Dose Instructions Humalog (Insulin Lispro (Human)) 100 Unit/Ml Inj 20 Units SC BID 06/24/17 Reported TAKE IN ADDITION TO SLIDING SCALE WITH LUNCH AND DINNER Humalog (Insulin Lispro (Human)) 100 Unit/Ml Inj 10 Units SC QAM 06/24/17 Reported TAKE IN ADDITION TO SLIDING SCALE WITH BREAKFAST Triamterene/Hctz 37.5-25MG (Triamterene/HCTZ) 1 Tab Tab 1 Tab PO DAILY 06/24/17 Reported BRAND MAXZIDE ONLY Norvasc (Amlodipine Besylate) 10 Mg Tab 10 Mg PO DAILY 06/24/17 Reported BRAND ONLY Lantus Solostar (Insulin Glargine) 100 Unit/Ml Inj 20 Units SC QAM 12/05/16 Rx Chlorthalidone 25 Mg Tab 25 Mg PO QAM 30 12/05/16 Rx Coreg (Carvedilol) 3.125 Mg Tab 3.125 Mg PO BID 11/29/16 Reported Humalog Kwikpen (Insulin Lispro (Human)) 100 Unit/Ml Inj Units SC UD PRN 05/23/16 Reported COVERAGE DIRECTED BY SLIDING SCALE Fish Oil + D3 (Fish Oil-Cholecalciferol) 1 Cap Cap 1 Cap PO DAILY 05/23/16 Reported Crestor (Rosuvastatin Calcium) 40 Mg Tab 40 Mg PO HS 05/23/16 Reported BRAND ONLY Plavix (Clopidogrel Bisulfate) 75 Mg Tab 75 Mg PO DAILY 02/16/11 Reported BRAND ONLY Allergies to Medications: Lisinopril, penicillin, sulfa, meperidine. Social History: Patient is not currently employed; she feels safe in her home environment; she denies tobacco use. Physical Examination: Vital Signs: Date Time Temp Pulse Resp B/P (MAP) Pulse Ox O2 Delivery O2 Flow Rate FiO2 06/24/17 15:17 69 160/71 91 06/24/17 12:34 67 198/76 99 06/24/17 11:19 96 Nasal Cannula 2.0 06/24/17 10:57 63 153/78 94 06/24/17 09:00 36.8 69 20 164/82 98 Room Air GENERAL: 67-year-old female in mild to moderate distress due to pain, nontoxic- appearing, afebrile and hemodynamically stable. NEUROLOGICAL: Awake, alert and oriented to person, place and time. Answering questions appropriately and following commands. Normal gait. Good hand eye coordination. SKIN: Warm, dry and pink. No soft tissue eruptions or trauma noted. HEENT: Atraumatic and normocephalic. PERRLA. Sclera white and conjunctiva pink. Oral cavity moist and pink. Pharynx is nonerythematous or edematous. Speech normal. No lymphadenopathy. Trachea midline. No jugular venous distention. BACK: No tenderness over the bony spine. No CVA tenderness. THORAX: Lungs sounds are clear to auscultation and equal bilaterally with symmetrical chest wall. No wheezing, rales or rhonchi. No crepitus, tenderness , subcutaneous air or deformities noted. HEART: Regular rate and rhythm. No gallops, rubs or murmurs are appreciated. ABDOMEN: Obese and soft moderate tenderness throughout the lower abdomen with slight rightward prominence. Positive bowel sounds in all quadrants. No guarding, rigidity or organomegaly. EXTREMITIES: Moves all extremities well on command and with purpose. All distal neurovascular statuses are intact and equal bilaterally. ED Course: Patient is assessed as noted above. Laboratory Testing: Test 06/24/17 09:17 06/24/17 10:00 Range/Units White Blood Count 11.34 4.8-10.8 K/uL Red Blood Count 4.38 4.2-5.4 M/uL Hemoglobin 11.7 12.0-16.0 g/dL Hematocrit 36.8 37-47 % Mean Corpuscular Volume 84.0 80-100 fL Mean Corpuscular Hemoglobin 26.7 25-34 pg Mean Corpuscular Hemoglobin Concent 31.8 32-36 g/dl Platelet Count 294 130-400 K/uL Mean Platelet Volume 10.4 7.4-10.4 fL Neutrophils (%) (Auto) 74.2 % Lymphocytes (%) (Auto) 14.9 % Monocytes (%) (Auto) 7.9 % Eosinophils (%) (Auto) 2.2 % Basophils (%) (Auto) 0.4 % Neutrophils # (Auto) 8.41 1.4-6.5 K/uL Lymphocytes # (Auto) 1.69 1.2-3.4 K/uL Monocytes # (Auto) 0.90 0.11-0.59 K/uL Eosinophils # (Auto) 0.25 0-0.5 K/uL Basophils # (Auto) 0.04 0-0.2 K/uL RDW Standard Deviation 42.1 36.4-46.3 fL RDW Coefficient of Variation 13.7 11.5-14.5 % Immature Granulocyte % (Auto) 0.4 % Immature Granulocyte # (Auto) 0.05 0.00-0.02 K/uL Sodium Level 137 136-145 mmol/L Potassium Level 3.6 3.5-5.1 mmol/L Chloride Level 104 98-107 mmol/L Carbon Dioxide Level 26 21-32 mmol/L Anion Gap 7.0 3-11 mmol/L Blood Urea Nitrogen 31 7-18 mg/dl Creatinine 1.50 0.60-1.20 mg/dl Est Creatinine Clear Calc Drug Dose 41.1 ml/min Estimated GFR () 41.4 Estimated GFR (Non- 35.7 BUN/Creatinine Ratio 20.9 10-20 Random Glucose 83 70-99 mg/dl Calcium Level 9.2 8.5-10.1 mg/dl Total Bilirubin 0.3 0.2-1 mg/dl Direct Bilirubin 0.1 0-0.2 mg/dl Aspartate Amino Transf (AST/SGOT) 9 15-37 U/L Alanine Aminotransferase (ALT/SGPT) 19 12-78 U/L Alkaline Phosphatase 142 45-117 U/L Total Protein 7.9 6.4-8.2 gm/dl Albumin 3.0 3.4-5.0 gm/dl Lipase 198 73-393 U/L Urine Color YELLOW Urine Appearance CLEAR CLEAR Urine pH 5.5 4.5-7.5 Urine Specific [place] 1.015 1.000-1.030 Urine Protein 2+ NEG Urine Glucose (UA) TRACE NEG Urine Ketones NEG NEG Urine Occult Blood NEG NEG Urine Nitrite NEG NEG Urine Bilirubin NEG NEG Urine Urobilinogen NEG NEG Urine Leukocyte Esterase NEG NEG Urine WBC (Auto) 1-5 0-5 /hpf Urine RBC (Auto) 0-4 0-4 /hpf Urine Hyaline Casts (Auto) 0 0-5 /lpf Urine Epithelial Cells (Auto) 20-30 0-5 /lpf Urine Bacteria (Auto) NEG NEG Contrast Abdominal/Pelvic CT: Was reviewed by myself and read by the radiologist and shows circumferential wall thickening with mild to moderate surrounding inflammatory stranding extends from the mid transverse colon to the distal descending colon with multiple colonic diverticula. No associated abscess, perforation or obstruction. Patient was hydrated with normal saline and she received a total of 8 mg of morphine IV for pain and 4 mg of Zofran IV for nausea. Patient was reassessed multiple times during her stay in the emergency department. Patient's case was reviewed with Dr. Horowitz; we agreed on diagnostic approach , treatment, disposition and plan. Patient was given 500 mg of ciprofloxacin by mouth and 500 mg of Flagyl by mouth. Patient's case was consulted with case management and Ms. Barry Rangel, gastroenterology; she recommended close office follow-up. I lengthy conversation with the patient about hospital observation/admission stay versus home treatment. Patient felt she needed to be brought in the hospital for observation. After discussing this with case management and my attending it was felt she didn't meet criteria for admission. She agreed to treatment at home with close outpatient follow-up. Patient was educated about today's findings and instructed on her treatment plan ; she verbalized understanding and agreement with this plan. Clinical Impression: Acute diverticulitis. Decision-Making: Initially my differential diagnosis I considered diverticulitis , bowel obstruction, constipation, colitis, gastroenteritis, appendicitis and other causes. Disposition: Patient was discharged home in stable condition; prior to departure she was reassessed and subjectively reported she was feeling better but continued to rate her discomfort 10/10. Plan: Patient was prescribed Percocet for pain, Zofran for nausea/vomiting and Cipro and Flagyl for antibiotic coverage; she was educated on the use of all these medications. She was given appropriate narcotic precautions and her name was checked in the state database and no red flags were noted. Patient was encouraged to follow-up with personal physician for recheck. Patient was encouraged return the ED for worsening symptoms, fevers, , bloody stools, bloody vomit or any new/concerning symptoms.
== END 2017-06-24 15:18 | disposition home or self-care (01) ==
LOC: C.EDB 09:00
DX: K57.92 Diverticulitis of intestine, part unspecified, without perforation or abscess without bleeding (principal); N18.3 Chronic kidney disease, stage 3 (moderate); I12.9 Hypertensive chronic kidney disease with stage 1 through stage 4 chronic kidney disease, or unspecified chronic kidney disease; E11.22 Type 2 diabetes mellitus with diabetic chronic kidney disease; Z79.4 Long term (current) use of insulin; Z79.899 Other long term (current) drug therapy; Z79.01 Long term (current) use of anticoagulants; E66.9 Obesity, unspecified; Z68.37 Body mass index [BMI] 37.0-37.9, adult

== ENCOUNTER → 2017-07-27 | Outpatient (CLI) | payer OTHER ==
[~2017-07-27] MED LIST changes: +AMLO-114 PO; +CIPR-255 PO; -DVN80 PO; -FENO160T PO; +INSU100I SC; +METR-163 PO; -NRV5 PO; +ONDA4TAB46 PO; +OXYC-57 PO; -SPRN100 PO; +TRIATAB3 PO
[2017-07-27 12:46] LABS: MEAN CORPUSCULAR HEMOGLOBIN 26.1 pg (25-34); MEAN CORPUSCULAR HGB CONC 31.5 g/dl (32-36); MEAN PLATELET VOLUME 10.8 fL (7.4-10.4); PLATELET COUNT 298 K/uL (130-400); RED BLOOD COUNT 4.94 M/uL (4.2-5.4); WHITE BLOOD COUNT 11.02 K/uL (4.8-10.8)
[2017-07-27 12:47] LABS: URINE APPEARANCE CLEAR (CLEAR); URINE BILIRUBIN NEG (NEG); URINE COLOR YELLOW; URINE NITRITE NEG (NEG); URINE SPECIFIC GRAVITY 1.021 (1.000-1.030); UROBILINOGEN NEG (NEG)
[2017-07-27 13:10] LABS: BLOOD UREA NITROGEN 51 mg/dl (7-18); BUN/CREATININE RATIO 28.4 (10-20); CALCIUM 9.2 mg/dl (8.5-10.1); CARBON DIOXIDE 29 mmol/L (21-32); CHLORIDE 103 mmol/L (98-107); GLUCOSE 80 mg/dl (70-99); PHOSPHORUS 3.3 mg/dl (2.5-4.9); POTASSIUM 3.7 mmol/L (3.5-5.1); SODIUM 139 mmol/L (136-145)
[2017-07-27 13:14] LABS: MANUAL MICROSCOPIC REQUIRED? NO; REVIEW REQ? NO
[2017-07-27 13:23] LABS: URINE PROTIEN/CREAT RATIO 2.4 (0-0.2); URINE TOTAL PROTEIN 151.1 mg/dl (0-11.9)
== END | disposition home or self-care (01) ==
LOC: C.LAB 12:06
PROVIDERS: ATTEND Internal Medicine Nephrology
DX: N18.3 Chronic kidney disease, stage 3 (moderate) (principal); E55.9 Vitamin D deficiency, unspecified; N25.81 Secondary hyperparathyroidism of renal origin; I12.9 Hypertensive chronic kidney disease with stage 1 through stage 4 chronic kidney disease, or unspecified chronic kidney disease

== ENCOUNTER → 2017-08-02 | Outpatient (CLI) | payer OTHER ==
[2017-08-02 13:42] LABS: ALT/SGPT 22 U/L (12-78); AST/SGOT 16 U/L (15-37); BLOOD UREA NITROGEN 49 mg/dl (7-18); BUN/CREATININE RATIO 28.8 (10-20); CALCIUM 9.3 mg/dl (8.5-10.1); CARBON DIOXIDE 30 mmol/L (21-32); CHLORIDE 102 mmol/L (98-107); CHOLESTEROL 148 mg/dl (0-200); GLUCOSE 109 mg/dl (70-99); POTASSIUM 3.9 mmol/L (3.5-5.1); SODIUM 140 mmol/L (136-145); TRIGLYCERIDES 198 mg/dl (0-150); VERY LOW DENSITY LIPOPROT CALC 40 mg/dl
[2017-08-02 13:51] LABS: ALB/GLOB RATIO 0.6 (0.9-2); ALKALINE PHOSPHATASE 138 U/L (45-117); HDL CHOLESTEROL 37 mg/dl; LDL CHOLESTEROL CALCULATED 71 mg/dl; THYROID STIMULATING HORMONE 0.945 uIu/ml (0.300-4.500)
== END | disposition home or self-care (01) ==
LOC: C.LAB1850 12:18
PROVIDERS: ATTEND Internal Medicine Endocrinology, Diabetes & Metabolism
DX: E55.9 Vitamin D deficiency, unspecified (principal); E11.9 Type 2 diabetes mellitus without complications

== ENCOUNTER → 2018-01-17 | Outpatient (CLI) | payer OTHER ==
[~2018-01-17] MED LIST changes: -METR-163 PO; -ONDA4TAB46 PO; -OXYC-57 PO
[2018-01-17 08:29] LABS: HEMATOCRIT 38.8 % (37-47); HEMOGLOBIN 13.1 g/dL (12.0-16.0); MEAN CORPUSCULAR HEMOGLOBIN 27.7 pg (25-34); MEAN CORPUSCULAR HGB CONC 33.8 g/dl (32-36); MEAN PLATELET VOLUME 10.5 fL (7.4-10.4); PLATELET COUNT 219 K/uL (130-400); RED CELL DISTRIBUTION WIDTH CV 14.8 % (11.5-14.5); WHITE BLOOD COUNT 10.22 K/uL (4.8-10.8)
[2018-01-17 08:52] LABS: ALBUMIN 2.7 gm/dl (3.4-5.0); ALKALINE PHOSPHATASE 129 U/L (45-117); ALT/SGPT 20 U/L (12-78); AST/SGOT 17 U/L (15-37); BLOOD UREA NITROGEN 38 mg/dl (7-18); CARBON DIOXIDE 27 mmol/L (21-32); CHOLESTEROL 128 mg/dl (0-200); GLUCOSE 111 mg/dl (70-99); LDL CHOLESTEROL CALCULATED 52 mg/dl; POTASSIUM 3.7 mmol/L (3.5-5.1); SODIUM 139 mmol/L (136-145); TOTAL PROTEIN 7.1 gm/dl (6.4-8.2)
[2018-01-17 09:14] LABS: HEMOGLOBIN A1C 9.2 % (4.5-5.6)
== END | disposition home or self-care (01) ==
LOC: C.LAB 07:56
PROVIDERS: ATTEND Family Medicine
DX: E78.2 Mixed hyperlipidemia (principal); E08.21 Diabetes mellitus due to underlying condition with diabetic nephropathy

== ENCOUNTER 2018-03-07 11:39 | Observation (INO) | payer OTHER ==
[~2018-03-07] VITALS: Ht 162.6 cm; Wt 102.1 kg
[2018-03-07] MEDS ORDERED: ACETAMINOPHEN 500 MG TAB PO STA (12:22)
--- NOTE | 2018-03-07 12:28 | EMERGENCY ROOM VISIT NOTE ---
History Report prepared by Fawn: Jose Saha Under the Supervision of: Dr. Adi Robert M.D. First contact with patient: 12:19 Chief Complaint: CARDIAC ASSESSMENT Stated Complaint: POSS HEART ATTACK Nursing Triage Summary: Pt states sharp stabbing pain on the right side and goes half way up her arm, denies any trama, states pain is a 10. states she has a dry cough. History of Present Illness The patient is a 68 year old female with a history of chronic kidney disease, diabetes, and hypertension who presents to the Emergency Room with complaints of worsening right-sided chest pain that started 2 weeks ago. She states that pain has been constant over the past week, but it waxes and wanes. The patient says that the pain ranges from an ache to a sharp stabbing pain. She notes that recently the pain now radiates down half her right arm. She states that she currently has the aching pain. The patient adds that she has had some nausea, in addition to a dry cough, but she is aware that the cough may be related to seasonal allergies. The patient adds that she currently feels short of breath which is not normal for her. She denies any vomiting or abdominal pain. The patient says that she takes Plavix once daily. She notes that she called her primary care physician's office a few days ago because she has been having some right breast soreness, and would like to schedule a mammogram. She says that she called the office again earlier today, and she noted the persistent pain, and the doctor told the patient to come here for evaluation. The patient states that she has not taken any medication for the pain today. Source of History: patient Onset: 2 weeks ago Position: chest (right) Quality: ache, sharp, stabbing, other (pain) Timing: worsening Associated Symptoms: + cough, + SOB, + nausea, No vomiting, No abdominal pain Note: Associated symptoms: Radiating pain down half of right arm. Right breast soreness. Review of Systems See HPI for pertinent positives and negatives. A total of ten systems were reviewed and were otherwise negative. Past Medical & Surgical Medical Problems: (1) Chronic kidney disease (2) Diabetes mellitus (3) DVT prophylaxis (4) Hypertension (5) Proteinuria (6) Stage 3 chronic kidney disease Family History FH: heart disease Social History Smoking Status: Never Smoker Marital Status: Housing Status: lives with family Occupation Status: other Current/Historical Medications Scheduled Carvedilol (Coreg), 6.25 MG PO HS Clopidogrel (Plavix), 75 MG PO DAILY Fish Oil-Cholecalciferol (Fish Oil + D3), 1 CAP PO DAILY Insulin Glargine (Lantus Solostar), 20 UNITS SC BID Insulin Lispro (Human) (Humalog), 10 UNITS SC QAM Insulin Lispro (Human) (Humalog), 20 UNITS SC BID Rosuvastatin Calcium (Crestor), 40 MG PO HS Triamterene/Hctz (Triamterene/Hctz 37.5-25MG), 1 TAB PO DAILY Scheduled PRN Insulin Lispro (Human) (Humalog Kwikpen), UNITS SC UD PRN for BSG Coverage Allergies Coded Allergies: Sulfa Antibiotics (Verified Allergy, Intermediate, RASH, 03/07/18) Penicillins (Verified Allergy, Mild, 03/07/18) Meperidine (Verified Adverse Reaction, Intermediate, hallucinates, 03/07/18 ) Lisinopril (Verified Adverse Reaction, Mild, COUGHING, 03/07/18) Physical Exam Vital Signs Date Time Temp Pulse Resp B/P (MAP) Pulse Ox O2 Delivery O2 Flow Rate FiO2 03/07/18 15:44 62 20 150/94 98 03/07/18 14:52 62 14 168/74 95 Room Air 03/07/18 13:41 72 24 210/80 98 Room Air 03/07/18 12:26 68 03/07/18 12:20 96 Room Air 03/07/18 12:13 96 Room Air 03/07/18 12:13 69 18 194/93 96 Room Air 03/07/18 11:41 36.8 74 18 210/94 92 Room Air Physical Exam GENERAL: Awake, alert, well-appearing, in no distress HENT: Normocephalic, atraumatic. Dry mucous membranes.. EYES: Normal conjunctiva. Sclera non-icteric. NECK: Supple. No nuchal rigidity. FROM. No JVD. No axillary LAD lymphadenopathy. RESPIRATORY: Clear to auscultation. CARDIAC: Regular rate, normal rhythm. Extremities warm and well perfused. Pulses equal. ABDOMEN: Soft, non-distended. No tenderness to palpation. No rebound or guarding. No masses. RECTAL: Deferred. MUSCULOSKELETAL: Mild reproducible right anterior chest wall tenderness, no appreciable masses or nodules. The back is symmetrical on inspection without obvious abnormality. There is no CVA tenderness to palpation. No joint edema. LOWER EXTREMITIES: Calves are equal size bilaterally and non-tender. No edema. No discoloration. NEURO: Normal sensorium. No sensory or motor deficits noted. SKIN: No rash or jaundice noted. Medical Decision & Procedures ER Provider Diagnostic Interpretation: X-ray: Per my interpretation, radiologist review. CHEST ONE VIEW PORTABLE CLINICAL HISTORY: 68 years-old Female presenting with CHEST PAIN. TECHNIQUE: Portable upright AP view of the chest was obtained. COMPARISON: 11/29/2016. FINDINGS: Atherosclerosis of aortic arch. Cardiac silhouette enlarged. Mild pulmonary vascular prominence. Mild bronchial wall thickening. No focal opacity. No large effusion or pneumothorax. Osseous structures normal. Upper abdomen normal. IMPRESSION: 1. Cardiomegaly with possible mild volume overload/congestive change. No susan pulmonary edema or other evidence of acute cardiopulmonary disease. Electronically signed by: Titi Galvin M.D. 03/07/2018 12:48 PM Dictated Date/Time: 03/07/2018 12:47 PM Laboratory Results 03/07/18 12:05 Red Blood Count 4.73, Mean Corpuscular Volume 83.1, Mean Corpuscular Hemoglobin 27.5, Mean Corpuscular Hemoglobin Concent 33.1, Mean Platelet Volume 11.4, Neutrophils (%) (Auto) 70.6, Lymphocytes (%) (Auto) 17.1, Monocytes (%) (Auto) 8.8, Eosinophils (%) (Auto) 2.8, Basophils (%) (Auto) 0.4, Neutrophils # (Auto) 7.50, Lymphocytes # (Auto) 1.82, Monocytes # (Auto) 0.93, Eosinophils # (Auto) 0.30, Basophils # (Auto) 0.04 03/07/18 12:05 Test 03/07/18 12:05 White Blood Count 10.62 K/uL (4.8-10.8) Red Blood Count 4.73 M/uL (4.2-5.4) Hemoglobin 13.0 g/dL (12.0-16.0) Hematocrit 39.3 % (37-47) Mean Corpuscular Volume 83.1 fL (80-100) Mean Corpuscular Hemoglobin 27.5 pg (25-34) Mean Corpuscular Hemoglobin Concent 33.1 g/dl (32-36) Platelet Count 246 K/uL (130-400) Mean Platelet Volume 11.4 fL (7.4-10.4) Neutrophils (%) (Auto) 70.6 % Lymphocytes (%) (Auto) 17.1 % Monocytes (%) (Auto) 8.8 % Eosinophils (%) (Auto) 2.8 % Basophils (%) (Auto) 0.4 % Neutrophils # (Auto) 7.50 K/uL (1.4-6.5) Lymphocytes # (Auto) 1.82 K/uL (1.2-3.4) Monocytes # (Auto) 0.93 K/uL (0.11-0.59) Eosinophils # (Auto) 0.30 K/uL (0-0.5) Basophils # (Auto) 0.04 K/uL (0-0.2) RDW Standard Deviation 45.3 fL (36.4-46.3) RDW Coefficient of Variation 14.9 % (11.5-14.5) Immature Granulocyte % (Auto) 0.3 % Immature Granulocyte # (Auto) 0.03 K/uL (0.00-0.02) Anion Gap 8.0 mmol/L (3-11) Est Creatinine Clear Calc Drug Dose 27.1 ml/min Estimated GFR () 24.2 Estimated GFR (Non- 20.9 BUN/Creatinine Ratio 23.1 (10-20) Calcium Level 8.6 mg/dl (8.5-10.1) Magnesium Level 1.6 mg/dl (1.8-2.4) Total Bilirubin 0.3 mg/dl (0.2-1) Direct Bilirubin < 0.1 mg/dl (0-0.2) Aspartate Amino Transf (AST/SGOT) 43 U/L (15-37) Alanine Aminotransferase (ALT/SGPT) 65 U/L (12-78) Alkaline Phosphatase 130 U/L (45-117) Pro-B-Type Natriuretic Peptide 1924 pg/ml (0-900) Total Protein 7.7 gm/dl (6.4-8.2) Albumin 3.0 gm/dl (3.4-5.0) Lipase 237 U/L (73-393) Laboratory results reviewed by me Medications Administered Medications (Trade) Dose Ordered Sig/Isaías Route Start Time Stop Time Status Last Admin Dose Admin Acetaminophen (Tylenol Tab) 1,000 mg NOW STAT PO 03/07/18 12:22 03/07/18 12:29 DC 03/07/18 12:50 1,000 MG Magnesium Sulfate (Magnesium Sulfate 1gm / D5W) 2 gm NOW STAT IV 03/07/18 13:17 03/07/18 13:21 DC 03/07/18 13:39 2 GM ECG Per My Interpretation Indication: chest pain Rate (beats per minute): 73 Rhythm: normal sinus Findings: no acute ischemic change, other (LVH with repolarization abnormality) Change: no significant change (from Dec 02 2016) ED Course 1220: The patient was evaluated in room C2B. A complete history and physical exam was performed. 1222: Tylenol Tab 1000 mg PO. 1317: Magnesium Sulfate 1 gm / D5W 2 gm IV. 1326: I reevaluated and updated the patient. 1346: Normodyne IV 10 mg. 1350: Upon reexamination, the patient was resting. I discussed the test results and treatment plan with her. The patient will be evaluated for further management. 1358: I discussed the patient with Dr. Up - [facility] [place] - he will evaluate the patient for further treatment. Medical Decision I reviewed the patient's past medical history, medications, and the nursing notes as described above. Differential diagnosis: Etiologies such as cardiac ischemia, aortic dissection, pulmonary embolism, pneumonia, pneumothorax, musculoskeletal, infections, pericarditis, myocarditis , esophageal rupture, gastrointestinal, as well as others were entertained. The patient is a 68 y/o woman with a pmhx of CAD s/p stent, CKD, renal artery stenosis s/p renal artery stent, uncontrolled HTN who presents to the emergency department with constant right anterior chest pain over the past week per HPI. On arrival the patient is in NAD, Hypertensive to SBP 200s and vital signs otherwise stable. EKG demonstrates known LVH and otherwise not acute ischemia. Cr 2.3 increased from 1.6 in December. Troponin elevated to 0.06 in the setting of prior history of chronic troponin elevation, however, prior elevations were 0.04 -0.05. BNP 1900 improved from prior. CXR with cardiomegaly without susan pulmonary edema. Oxygen saturation wnl on RA. Given patient's elevated BP, sx and lab results possibly related to her uncontrolled HTN. Thus, reasonable to admit patient for further cardiac r/o and BP control. Ordered for 10mg IV Labetolol. Case d/w Dr. Up, [facility] [place], who will evaluate the patient for admission. Medication Reconcilliation Current Medication List: was personally reviewed by me Blood Pressure Screening Patient's blood pressure: Elevated blood pressure Referred to hospitalist. Consults Time Called: [phone] Consulting Physician: Dr. Annel Garduno [facility] [place] [place] Returned Call: [phone] I discussed the patient with Dr. Annel DUENAS swatch paster - he will evaluate the patient for further treatment. Impression Primary Impression: Acute on chronic renal insufficiency Additional Impressions: Chest pain Elevated troponin Scribe Attestation The scribe's documentation has been prepared under my direction and personally reviewed by me in its entirety. I confirm that the note above accurately reflects all work, treatment, procedures, and medical decision making performed by me. Departure Information Dispostion Being Evaluated By Hospitalist Prescriptions Insulin Glargine (Lantus Solostar) 100 Unit/Ml Inj 20 UNITS SC BID, #600 UNITS Prov: Cecelia Mcintyre ., NEO 03/07/18 Referrals Shay Hammond M.D. (PCP) Patient Instructions [facility] Problem Qualifiers Additional Impressions:
[2018-03-07 12:37] LABS: BASO % 0.4 %; BASO ABS # 0.04 K/uL (0-0.2); EOS % 2.8 %; HEMATOCRIT 39.3 % (37-47); IG# 0.03 K/uL (0.00-0.02); LYMPH % 17.1 %; LYMPH ABS # 1.82 K/uL (1.2-3.4); MEAN CELL VOLUME 83.1 fL (80-100); MEAN CORPUSCULAR HEMOGLOBIN 27.5 pg (25-34); MEAN CORPUSCULAR HGB CONC 33.1 g/dl (32-36); MEAN PLATELET VOLUME 11.4 fL (7.4-10.4); MONO % 8.8 %; MONO ABS # 0.93 K/uL (0.11-0.59); NEUT % 70.6 %; PLATELET COUNT 246 K/uL (130-400); RED CELL DISTRIBUTION WIDTH CV 14.9 % (11.5-14.5); RED CELL DISTRIBUTION WIDTH SD 45.3 fL (36.4-46.3); WHITE BLOOD COUNT 10.62 K/uL (4.8-10.8)
[2018-03-07] MEDS ORDERED: CARV6.252 PO (12:44)
--- NOTE | 2018-03-07 12:49 | DIAGNOSTIC IMAGING REPORT ---
CHEST ONE VIEW PORTABLE CLINICAL HISTORY: 68 years-old Female presenting with CHEST PAIN. TECHNIQUE: Portable upright AP view of the chest was obtained. COMPARISON: 11/29/2016. FINDINGS: Atherosclerosis of aortic arch. Cardiac silhouette enlarged. Mild pulmonary vascular prominence. Mild bronchial wall thickening. No focal opacity. No large effusion or pneumothorax. Osseous structures normal. Upper abdomen normal. IMPRESSION: 1. Cardiomegaly with possible mild volume overload/congestive change. No susan pulmonary edema or other evidence of acute cardiopulmonary disease. Electronically signed by: Titi Galvin M.D. 03/07/2018 12:48 PM Dictated Date/Time: 03/07/2018 12:47 PM
[2018-03-07 13:09] LABS: ALKALINE PHOSPHATASE 130 U/L (45-117); ALT/SGPT 65 U/L (12-78); AST/SGOT 43 U/L (15-37); BLOOD UREA NITROGEN 54 mg/dl (7-18); CALCIUM 8.6 mg/dl (8.5-10.1); CARBON DIOXIDE 28 mmol/L (21-32); CREATININE 2.32 mg/dl (0.60-1.20); LIPASE 237 U/L (73-393); POTASSIUM 3.4 mmol/L (3.5-5.1); SODIUM 138 mmol/L (136-145); TOTAL PROTEIN 7.7 gm/dl (6.4-8.2)
[2018-03-07] MEDS ORDERED: MAGNESIUM SULFATE 1GM / D5W 1 GM BAG IV STA (13:17)
[2018-03-07] MEDS ORDERED: LABETALOL HCL IV 5 MG/ML 20ML IV STA (13:46)
[2018-03-07 13:52] LABS: GLUCOSE 249 mg/dl (70-99)
[2018-03-07] MEDS ORDERED: ONDANSETRON INJ 2 MG/ML 2 ML VIAL IV PRN (15:45)
[2018-03-07] MEDS ORDERED: ACETAMINOPHEN 325 MG TAB PO PRN (15:45)
[2018-03-07] MEDS ORDERED: CARBOHYDRATES FOR HYPOGLYCEMIA PO PRN (15:45)
[2018-03-07] MEDS ORDERED: GLUCOSE 10 TABS/TUBE PO PRN (15:45)
[2018-03-07] MEDS ORDERED: GLUCOSE 40% GEL 15 GM TUBE PO PRN (15:45)
[2018-03-07] MEDS ORDERED: GLUCAGON FOR INJ 1 MG VIAL SQ PRN (15:45)
[2018-03-07] MEDS ORDERED: MAGNESIUM HYDROXIDE SUSP 30 ML UDC PO PRN (15:45)
[2018-03-07] MEDS ORDERED: HydrALAZINE HCL 20 MG/ML VIAL IV. PRN (15:45)
[2018-03-07] MEDS ORDERED: POLYETHYLENE (MIRALAX) 17 GM PACK PO PRN (15:45)
[2018-03-07] MEDS ORDERED: ALUMINUM/MAGNESIUM/SIMETH (MAALOX MAX) 30 ML UDC PO PRN (15:45)
[2018-03-07] MEDS ORDERED: DEXTROSE 50% 50 ML SYR IV PRN (15:45)
[2018-03-07] MEDS ORDERED: INSDGIPEN SC (15:47)
--- NOTE | 2018-03-07 16:20 | History and Physical ---
History & Physical Date & Time of Service: March 07, 2018 at 15:59 Chief Complaint: Chest pain Primary Care Physician: Shay Hammond M.D. History of Present Illness Source: patient, family (daughter at bedside), clinic records, hospital records This is a 68 y/o female with a history of CAD, h/o MT s/p stent in 2009, HTN, HLD, DM II w/nephropathy, CKD stage III-IV, h/o renal artery stenosis s/p renal artery stent 2013, and lymphedema who presented to the ED on 03/07 with right sided chest pain. The patient states her chest pain started about 7-10 days ago and has been getting progressively worse. She currently complains of an 8/ 10 sharp pain in her right lateral chest/breast under the axilla. She states that the pain can also sometimes be achy. It at times radiates down her right arm to her elbow. She states the pain makes her short of breath and she has intermittent nausea, but denies diaphoresis, left sided chest pain, numbness and tingling. She states this feels nothing like her previous MT. The patient has a family history of breast cancer, and although she has not felt any lumps on her self breast exams, has been trying to get an outpatient mammogram. The patient notes that she has been very busy/running around a lot in the last few days and she has not been drinking enough water. She also notes increased sodium intake today, although she typically watches her diet. The patient denies fevers, chills, sweats, palpitations, claudication, wheezing, vomiting, abdominal pain, dysuria, hematuria, urinary retention, paralysis, weakness, numbness and tingling. Past Medical/Surgical History Medical Problems: (1) Abnormal ECG (2) Acute diverticulitis (3) Chronic kidney disease (4) Diabetes mellitus (5) DVT prophylaxis (6) Elevated troponin (7) Hypertension (8) Hypertensive emergency (9) Hypertensive emergency (10) Precordial chest pain (11) Proteinuria (12) SOB (shortness of breath) (13) Stage 3 chronic kidney disease (14) Vulvovaginal candidiasis CAD, h/o MT s/p stent HTN HLD DM II CKD stage III-IV h/o YANDEL s/p renal artery stent Lymphedema Family History Cancer (breast, lung) FH: heart disease Hypertension Social History Smoking Status: Former Smoker (remote history) Smokeless Tobacco Use: No Alcohol Use: none Drug Use: none Housing status: lives with family (grandson) Occupational Status: retired Immunizations History of Influenza Vaccine: Yes History of Tetanus Vaccine?: Yes History of Pneumococcal: Yes History of Hepatitis B Vaccine: Unknown Allergies Coded Allergies: Sulfa Antibiotics (Verified Allergy, Intermediate, RASH, 03/07/18) Penicillins (Verified Allergy, Mild, 03/07/18) Meperidine (Verified Adverse Reaction, Intermediate, hallucinates, 03/07/18 ) Lisinopril (Verified Adverse Reaction, Mild, COUGHING, 03/07/18) Home Medications Scheduled Carvedilol (Coreg), 6.25 MG PO HS Clopidogrel (Plavix), 75 MG PO DAILY Fish Oil-Cholecalciferol (Fish Oil + D3), 1 CAP PO DAILY Insulin Glargine (Lantus Solostar), 20 UNITS SC BID Insulin Lispro (Human) (Humalog), 10 UNITS SC QAM Insulin Lispro (Human) (Humalog), 20 UNITS SC BID Rosuvastatin Calcium (Crestor), 40 MG PO HS Triamterene/Hctz (Triamterene/Hctz 37.5-25MG), 1 TAB PO DAILY Scheduled PRN Insulin Lispro (Human) (Humalog Kwikpen), UNITS SC UD PRN for BSG Coverage Review of Systems Constitutional: No fever, No chills, No sweats Eyes: No worsening of vision, No eye pain, No diplopia ENT: No hearing loss, No nasal symptoms, No trouble swallowing Respiratory: +SOB w/pain. Dry, non-productive cough. No wheezing Cardiovascular: +Right chest pain. No claudication, No palpitations Abdomen: No pain, No nausea, No vomiting Musculoskeletal: No joint pain, No muscle pain, No swelling Genitourinary - Female: No dysuria, No urinary retention, No hematuria Neurologic: No paralysis, No weakness, No numbness/tingling Integumentary: No rash, No itch, No color change Physical Exam Vital Signs Date Time Temp Pulse Resp B/P (MAP) Pulse Ox O2 Delivery O2 Flow Rate FiO2 03/07/18 15:44 62 20 150/94 98 03/07/18 14:52 62 14 168/74 95 Room Air 03/07/18 13:41 72 24 210/80 98 Room Air 03/07/18 12:26 68 03/07/18 12:20 96 Room Air 03/07/18 12:13 96 Room Air 03/07/18 12:13 69 18 194/93 96 Room Air 03/07/18 11:41 36.8 74 18 210/94 92 Room Air General appearance: +Obese. Well-developed, well-nourished, no apparent distress Head: Normocephalic, atraumatic Eyes: Normal inspection, PERRL, EOMI ENT: Normal ENT inspection, hearing grossly normal, pharynx normal Neck: Supple, no JVD, trachea midline Respiratory/Chest: +Right lateral chest/breast TTP. Lungs clear to auscultation, normal breath sounds, no respiratory distress Cardiovascular: +Distant heart sounds. Regular rate & rhythm, no gallop, no murmur Abdomen/GI: Normal bowel sounds, non-tender, soft Extremities/Musculoskeletal: Normal inspection, no calf tenderness, no pedal edema Neurological/Psych: Alert, normal mood/affect, oriented x 3 Skin: Normal color, warm/dry, no rash Diagnostics Laboratory Results Results Past 24 Hours Test 03/07/18 12:05 Range/Units White Blood Count 10.62 4.8-10.8 K/uL Red Blood Count 4.73 4.2-5.4 M/uL Hemoglobin 13.0 12.0-16.0 g/dL Hematocrit 39.3 37-47 % Mean Corpuscular Volume 83.1 80-100 fL Mean Corpuscular Hemoglobin 27.5 25-34 pg Mean Corpuscular Hemoglobin Concent 33.1 32-36 g/dl Platelet Count 246 130-400 K/uL Mean Platelet Volume 11.4 7.4-10.4 fL Neutrophils (%) (Auto) 70.6 % Lymphocytes (%) (Auto) 17.1 % Monocytes (%) (Auto) 8.8 % Eosinophils (%) (Auto) 2.8 % Basophils (%) (Auto) 0.4 % Neutrophils # (Auto) 7.50 1.4-6.5 K/uL Lymphocytes # (Auto) 1.82 1.2-3.4 K/uL Monocytes # (Auto) 0.93 0.11-0.59 K/uL Eosinophils # (Auto) 0.30 0-0.5 K/uL Basophils # (Auto) 0.04 0-0.2 K/uL RDW Standard Deviation 45.3 36.4-46.3 fL RDW Coefficient of Variation 14.9 11.5-14.5 % Immature Granulocyte % (Auto) 0.3 % Immature Granulocyte # (Auto) 0.03 0.00-0.02 K/uL Sodium Level 138 136-145 mmol/L Potassium Level 3.4 3.5-5.1 mmol/L Chloride Level 102 98-107 mmol/L Carbon Dioxide Level 28 21-32 mmol/L Anion Gap 8.0 3-11 mmol/L Blood Urea Nitrogen 54 7-18 mg/dl Creatinine 2.32 0.60-1.20 mg/dl Est Creatinine Clear Calc Drug Dose 27.1 ml/min Estimated GFR () 24.2 Estimated GFR (Non- 20.9 BUN/Creatinine Ratio 23.1 10-20 Random Glucose 249 70-99 mg/dl Calcium Level 8.6 8.5-10.1 mg/dl Magnesium Level 1.6 1.8-2.4 mg/dl Total Bilirubin 0.3 0.2-1 mg/dl Direct Bilirubin < 0.1 0-0.2 mg/dl Aspartate Amino Transf (AST/SGOT) 43 15-37 U/L Alanine Aminotransferase (ALT/SGPT) 65 12-78 U/L Alkaline Phosphatase 130 45-117 U/L Troponin I 0.066 0-0.045 ng/ml Pro-B-Type Natriuretic Peptide 1924 0-900 pg/ml Total Protein 7.7 6.4-8.2 gm/dl Albumin 3.0 3.4-5.0 gm/dl Lipase 237 73-393 U/L Diagnostic Radiology Reviewed the following studies and agree with interpretation as follows: CHEST ONE VIEW PORTABLE CLINICAL HISTORY: 68 years-old Female presenting with CHEST PAIN. TECHNIQUE: Portable upright AP view of the chest was obtained. COMPARISON: 11/29/2016. FINDINGS: Atherosclerosis of aortic arch. Cardiac silhouette enlarged. Mild pulmonary vascular prominence. Mild bronchial wall thickening. No focal opacity. No large effusion or pneumothorax. Osseous structures normal. Upper abdomen normal. IMPRESSION: 1. Cardiomegaly with possible mild volume overload/congestive change. No susan pulmonary edema or other evidence of acute cardiopulmonary disease. EKG Reviewed EKG and agree with interpretation as follows: 73 bpm, NSR, LVH Impression Assessment and Plan CAD, h/o MT s/p stent in 2009, HTN, HLD, DM II w/nephropathy, CKD stage III-IV, h/o renal artery stenosis s/p renal artery stent 2013, and lymphedema who presented to the ED on 03/07 with right sided chest pain. Pt hypertensive on arrival with BP 210/94 on arrival. BP did improve on its own w/o intervention to 150/94. CXR shows possible mild fluid overload but no susan pulmonary edema. EKG shows no acute ischemic changes. Troponin mildly elevated at 0.066. Creatinine elevated above baseline at 2.32. Chest pain--appears to be more MSK as this is reproducible but w/elevated trop and h/o MT/CAD, will r/o ACS -Admit to telemetry for observation -Trend cardiac enzymes q8h x 3 -Check resting echocardiogram -Check fasting lipid panel -EKG q am and prn chest pain -Pt does not want any opioids or anything that will make her drowsy for pain. Tylenol prn and Lidoderm to right lateral chest -Could help facilitate outpatient mammogram, will leave to day team TIFFANY on CKD stage III-IV -Baseline creatinine 1.6-1.8 -Creatinine 2.32 on admission -Hold triamterene/HCTZ -Gentle IVF w/NSS + 20 KCl at 75 cc/hr x 2L -Continue to monitor -Elevated troponin may be due to kidney disease HTN urgency--improving -BP improving in ED w/o intervention (did not receive Labetalol dose) -Maxide on hold -Continue Coreg 6.25 mg PO hs (verified dose w/patient) -Cover with hydralazine 10 mg IV q6h prn SBP >180 Hypomagnesemia, mild hypokalemia -Magnesium 1.6 on admission, potassium 3.4 -Given mag sulfate 2 gm IV in ED. IVF as above w/KCl -Continue to monitor CAD, h/o MT s/p stent, HLD -Continue Plavix, Crestor 40 mg PO hs, Coreg DM II--last HgbA1c 9.2 on 01/17/18 -Continue Lantus 20 units SC BID -Insulin sliding scale -Check BSGs q ac and qhs H/o renal artery stenosis s/p renal artery stent--noted DVT prophylaxis -Heparin 5000 units SC q12h -TIFFANY granados and ALICIAs Code Status -Level I, FULL RESUSCITATION STATUS Supervising Note Dr. Yu I performed a history and physical examination on the patient. I reviewed above note and agree with it. I discussed plan with APC and patient. During my face to face encounter with the patient, I answered all of the patient's questions. Will continue to monitor patient's chest pain. However it appears to be musculoskeletal given the history. will trend trop. Resuscitation Status VTE Prophylaxis Will order VTE Prophylaxis: Yes
[2018-03-07 16:55] VITALS: BP 213/90; PULSE 64; TEMP 36.4; O2SAT 97; Ht 162.6 cm; Wt 102.1 kg
[2018-03-07] MEDS: INSULIN ASPART 100 UNITS/ML 3 ML PEN SC SCH ×2 (18:00→21:23)
[2018-03-07] MEDS ORDERED: IV FLUIDS COMPLETED PRN (18:15)
[2018-03-07 18:42] VITALS: BP 199/66; PULSE 65
[2018-03-07] MEDS: NSS + 20MEQ KCL 1000ML 1,000 ML IV SCH (18:44)
[2018-03-07 19:34] VITALS: BP 165/86; PULSE 58; TEMP 36.5; O2SAT 95
[2018-03-07 20:31] LABS: PTT PATIENT 27.3 SECONDS (21.0-31.0)
[2018-03-07 20:58] LABS: CKMB 11.9 ng/ml (0.5-3.6)
[2018-03-07] MEDS ORDERED: CARVEDILOL 6.25 MG TAB PO SCH (21:00)
[2018-03-07] MEDS ORDERED: ROSUVASTATIN CALCIUM 20 MG TAB PO SCH (21:00)
[2018-03-07] MEDS: INSULIN GLARGINE SOLOSTAR 100 UNITS/ML 3 ML PEN SC SCH (21:23)
[2018-03-08 00:08] VITALS: BP 121/84; PULSE 62; TEMP 36.3; O2SAT 93
[2018-03-08 03:39] VITALS: BP 196/78; PULSE 72; TEMP 36.6; O2SAT 94
[2018-03-08 04:50] LABS: HEMATOCRIT 36.4 % (37-47); MEAN PLATELET VOLUME 11.1 fL (7.4-10.4); PLATELET COUNT 198 K/uL (130-400); RED CELL DISTRIBUTION WIDTH CV 14.6 % (11.5-14.5); RED CELL DISTRIBUTION WIDTH SD 43.8 fL (36.4-46.3); WHITE BLOOD COUNT 8.42 K/uL (4.8-10.8)
[2018-03-08 04:51] VITALS: BP 175/78
[2018-03-08 05:21] LABS: CALCIUM 8.1 mg/dl (8.5-10.1); CREATININE 2.01 mg/dl (0.60-1.20); POTASSIUM 3.3 mmol/L (3.5-5.1)
[2018-03-08 05:22] LABS: CKMB 10.6 ng/ml (0.5-3.6)
[2018-03-08 07:02] VITALS: BP 148/91; PULSE 70; TEMP 36.9; O2SAT 93
[2018-03-08] MEDS: INSULIN ASPART 100 UNITS/ML 3 ML PEN SC SCH ×2 (08:06→12:21)
[2018-03-08] MEDS: INSULIN GLARGINE SOLOSTAR 100 UNITS/ML 3 ML PEN SC SCH (08:07)
[2018-03-08] MEDS: NSS + 20MEQ KCL 1000ML 1,000 ML IV SCH (08:08)
[2018-03-08] MEDS ORDERED: POTASSIUM CHLORIDE 20 MEQ TABCR PO ONE (09:00)
[2018-03-08] MEDS ORDERED: CLOPIDOGREL BISULFATE 75 MG TAB PO SCH (09:00)
[2018-03-08] MEDS ORDERED: HEPARIN SOD 5000 UNIT/0.5 ML CARP SQ SCH (09:00)
[2018-03-08] MEDS ORDERED: LIDODERM (LIDOCAINE) PATCH 5% TD SCH (09:00)
--- NOTE | 2018-03-08 12:11 | ECHOCARDIOGRAM REPORT ---
*NOTICE TO RECEIVING LIBERTARIAN AGENCY This information is strictly Confidential and protected under [place] law. [place] law prohibits you from making any further disclosure of this information unless further disclosure is expressly permitted by the written consent of the person to whom it pertains or is authorized by law. A general authorization for the release of medical or other information is not sufficient for this purpose. Hospital accepts no responsibility if the information is made available to any other person, INCLUDING THE PATIENT. Interpretation Summary * Name: CAMPOS CRAWFORD Study Date: 03/08/2018 09:23 AM BP: 175/78 mmHg * Patient Location: [facility] HR: 72 * : 1950 (M/d/yyyy) Gender: Female Height: 64 in * Age: 68 yrs Ethnicity: CA Weight: 225 lb * Ordering Physician: Cecelia Mcintyre * Referring Physician: Shay Hammond * Performed By: Dior Chavez RDCS * * Reason For Study: Chest Pain * BSA: 2.1 m2 * -- Conclusions -- * There is moderate concentric left ventricular hypertrophy. * Left ventricular systolic function is normal. * Grade I diastolic dysfunction, (abnormal relaxation pattern). * There is mild mitral annular calcification. * The inferior vena cava is mildly dilated. * Compared to an echocardiogram from 11/2016, there does not appear to be any significant change. Procedure Details * A complete two-dimensional transthoracic echocardiogram was performed (2D, M-mode, Doppler and color flow Doppler). Left Ventricle * The left ventricle is normal in size. * There is moderate concentric left ventricular hypertrophy. * Ejection Fraction = 50-55%. * Left ventricular systolic function is normal. * Grade I diastolic dysfunction, (abnormal relaxation pattern). * The left ventricular wall motion is normal. Right Ventricle * The right ventricle is normal in size and function. Atria * The left atrial size is normal. * Right atrial size is normal. Mitral Valve * There is mild mitral annular calcification. * Significant mitral regurgitation is absent. Tricuspid Valve * The tricuspid valve is not well visualized, but is grossly normal. * Significant tricuspid regurgitation is absent. Aortic Valve * The aortic valve is normal in structure and function. * No hemodynamically significant valvular aortic stenosis. * There is no significant aortic regurgitation. Pulmonic Valve * The pulmonic valve is not well visualized. Great Vessels * The aortic root is normal size. Pericardium/Pleural * There is no pericardial effusion. Great Vessels * The inferior vena cava is mildly dilated. MMode 2D Measurements and Calculations IVSd 1.8 cm IVSs 1.8 cm LVIDd 4.0 cm LVIDs 2.9 cm LVPWd 1.2 cm LVPWs 2.1 cm IVS/LVPW 1.4 FS 27.6 % EDV(Teich) 69.0 ml ESV(Teich) 31.6 ml EF(Teich) 54.2 % EDV(cubed) 62.9 ml ESV(cubed) 23.8 ml EF(cubed) 62.1 % % IVS thick 3.0 % % LVPW thick 72.1 % LV mass(C)d 229.9 grams LV mass(C)dI 111.8 grams/m\S\2 LV mass(C)s 243.9 grams LV mass(C)sI 118.6 grams/m\S\2 SV(Teich) 37.4 ml SI(Teich) 18.2 ml/m\S\2 SV(cubed) 39.1 ml SI(cubed) 19.0 ml/m\S\2 Ao root diam 2.7 cm Ao root area 5.9 cm\S\2 ACS 1.5 cm LA dimension 3.6 cm asc Aorta Diam 3.1 cm LA/Ao 1.3 LVAd ap4 27.6 cm\S\2 LVLd ap4 9.1 cm EDV(MOD-sp4) 71.1 ml EDV(sp4-el) 71.0 ml LVAs ap4 17.6 cm\S\2 LVLs ap4 7.7 cm ESV(MOD-sp4) 34.4 ml ESV(sp4-el) 34.3 ml EF(MOD-sp4) 51.7 % EF(sp4-el) 51.7 % LVAd ap2 26.1 cm\S\2 LVLd ap2 8.7 cm EDV(MOD-sp2) 65.9 ml EDV(sp2-el) 66.5 ml LVAs ap2 16.3 cm\S\2 LVLs ap2 8.0 cm ESV(MOD-sp2) 30.4 ml ESV(sp2-el) 28.2 ml EF(MOD-sp2) 53.9 % EF(sp2-el) 57.5 % LVLd %diff -4.74 % EDV(MOD-bp) 69.0 ml LVLs %diff 4.2 % ESV(MOD-bp) 33.1 ml EF(MOD-bp) 52.1 % SV(MOD-sp4) 36.7 ml SI(MOD-sp4) 17.9 ml/m\S\2 SV(MOD-sp2) 35.5 ml SI(MOD-sp2) 17.3 ml/m\S\2 SV(MOD-bp) 36.0 ml SI(MOD-bp) 17.5 ml/m\S\2 SV(sp4-el) 36.7 ml SI(sp4-el) 17.9 ml/m\S\2 SV(sp2-el) 38.2 ml SI(sp2-el) 18.6 ml/m\S\2 Doppler Measurements and Calculations MV E max mercy 94.8 cm/sec MV A max mercy 137.0 cm/sec MV E/A 0.69 MV dec time 0.19 sec Ao V2 max 156.2 cm/sec Ao max PG 10.0 mmHg Ao max PG (full) 3.5 mmHg LV V1 max PG 6.5 mmHg LV V1 max 127.5 cm/sec PA V2 max 131.6 cm/sec PA max PG 6.9 mmHg
[2018-03-08 12:14] VITALS: BP_SYST 181; BP_SYST 197; BP_DIAS 93; BP_DIAS 96; PULSE 72; TEMP 36.9; O2SAT 93
--- NOTE | 2018-03-08 13:02 | Discharge Instructions ---
Discharge Instructions Date of Service March 08, 2018. Admission Reason for Admission: Acute On Chroic Renal Insufficiency Discharge Discharge Diagnosis / Problem: Acute on Chronic Renal Insufficiency Discharge Goals Goal(s): Decrease discomfort, Improve function Activity Recommendations Activity Limitations: resume your previous activity . Instructions / Follow-Up Instructions / Follow-Up Follow up with Nephrology in 1 week to recheck lab work Followup with PCP in 1-2 weeks Current Hospital Diet Patient's current hospital diet: Low Sodium Diet (2gm Na), Diabetes Type 2 Diet Discharge Diet Recommended Diet: Low Sodium Diet (2gm Na), Diabetes Type 2 Diet Pending Studies Studies pending at discharge: no Laboratory Results Hemoglobin A1c Test 01/17/18 08:01 Range/Units Estimated Average Glucose 217 mg/dl Hemoglobin A1c 9.2 H 4.5-5.6 % Lipid Panel Test 03/08/18 04:26 Range/Units Triglycerides Level 236 H 0-150 mg/dl Cholesterol Level 105 0-200 mg/dl HDL Cholesterol 28 mg/dl Cholesterol/HDL Ratio 3.8 LDL Cholesterol, Calculated 30 mg/dl Medical Emergencies . Who to Call and When: Medical Emergencies: If at any time you feel your situation is an emergency, please call 911 immediately. . Non-Emergent Contact Non-Emergency issues call your: Primary Care Provider Call Non-Emergent contact if: you have any medication questions . . "Provider Documentation" section prepared by Farhat Yu. .
[2018-03-08 13:12] VITALS: BP 197/96; PULSE 72; TEMP 36.9; O2SAT 93
--- NOTE | 2018-03-11 10:32 | Discharge Summary ---
Discharge Summary Date of Service March 08, 2018. Discharge Summary Admission Date: March 07, 2018 at 15:58 Discharge Date: March 08, 2018 Discharge Disposition: Home Principal Diagnosis: Chest Pain Problems/Secondary Diagnoses: (1) Chronic kidney disease Status: Chronic Immunizations: Have You Had Influenza Vaccine: Yes History of Tetanus Vaccine?: Yes History of Pneumococcal: Yes History of Hepatitis B Vaccine: Unknown Procedures: Echocardiogram -- Conclusions -- * There is moderate concentric left ventricular hypertrophy. * Left ventricular systolic function is normal. * Grade I diastolic dysfunction, (abnormal relaxation pattern). * There is mild mitral annular calcification. * The inferior vena cava is mildly dilated. * Compared to an echocardiogram from 11/2016, there does not appear to be any significant change. Medication Reconciliation Continued Medications: Carvedilol (Coreg) 6.25 Mg Tab 6.25 MG PO HS, TAB Clopidogrel (Plavix) 75 Mg Tab 75 MG PO DAILY BRAND ONLY Fish Oil-Cholecalciferol (Fish Oil + D3) 1 Cap Cap 1 CAP PO DAILY Insulin Glargine (Lantus Solostar) 100 Unit/Ml Inj 20 UNITS SC BID, #600 UNITS Insulin Lispro (Human) (Humalog Kwikpen) 100 Unit/Ml Inj UNITS SC UD PRN for BSG Coverage COVERAGE DIRECTED BY SLIDING SCALE Insulin Lispro (Human) (Humalog) 100 Unit/Ml Inj 10 UNITS SC QAM TAKE IN ADDITION TO SLIDING SCALE WITH BREAKFAST Insulin Lispro (Human) (Humalog) 100 Unit/Ml Inj 20 UNITS SC BID TAKE IN ADDITION TO SLIDING SCALE WITH LUNCH AND DINNER Rosuvastatin Calcium (Crestor) 40 Mg Tab 40 MG PO HS, TAB BRAND ONLY Triamterene/Hctz (Triamterene/Hctz 37.5-25MG) 1 Tab Tab 1 TAB PO DAILY, TAB BRAND MAXZIDE ONLY Discharge Exam Review of Systems Constitutional: No fever, No chills, No sweats Eyes: No worsening of vision, No eye pain, No diplopia ENT: No hearing loss, No nasal symptoms, No trouble swallowing Respiratory: . No wheezing Cardiovascular: +Right chest pain. No claudication, No palpitations Abdomen: No pain, No nausea, No vomiting Musculoskeletal: No joint pain, No muscle pain, No swelling Genitourinary - Female: No dysuria, No urinary retention, No hematuria Neurologic: No paralysis, No weakness, No numbness/tingling Integumentary: No rash, No itch, No color change \ Physical Exam: General appearance: +Obese. Well-developed, well-nourished, no apparent distress Head: Normocephalic, atraumatic Eyes: Normal inspection, PERRL, EOMI ENT: Normal ENT inspection, hearing grossly normal, pharynx normal Neck: Supple, no JVD, trachea midline Respiratory/Chest: +Right lateral chest/breast TTP. Lungs clear to auscultation, normal breath sounds, no respiratory distress Cardiovascular: +Distant heart sounds. Regular rate & rhythm, no gallop, no murmur Abdomen/GI: Normal bowel sounds, non-tender, soft Extremities/Musculoskeletal: Normal inspection, no calf tenderness, no pedal edema Neurological/Psych: Alert, normal mood/affect, oriented x 3 Skin: Normal color, warm/dry, no rash Hospital Course CAD, h/o CO s/p stent in 2009, HTN, HLD, DM II w/nephropathy, CKD stage III-IV, h/o renal artery stenosis s/p renal artery stent 2013, and lymphedema who presented to the ED on 03/07 with right sided chest pain. Pt hypertensive on arrival with BP 210/94 on arrival. BP did improve on its own w/o intervention to 150/94. CXR shows possible mild fluid overload but no susan pulmonary edema. EKG shows no acute ischemic changes. Troponin mildly elevated at 0.066. Creatinine elevated above baseline at 2.32. Chest pain--appears to be more MSK as this is reproducible but w/elevated trop and h/o CO/CAD, will r/o ACS -Admitedt to telemetry for observation -Trended cardiac enzymes q8h x 3 Trop peaked at .07 -Check resting echocardiogram -Check fasting lipid panel -EKG q am and prn chest pain -Pt does not want any opioids or anything that will make her drowsy for pain. Tylenol prn and Lidoderm to right lateral chest -Could help facilitate outpatient mammogram, will defer to PCP -Patient responded to lidocaine patch which likely points more towards musculoskeletal than cardiac TIFFANY on CKD stage III-IV -Baseline creatinine 1.6-1.8 -Creatinine 2.32 on admission -Hold triamterene/HCTZ -Gentle IVF w/NSS + 20 KCl at 75 cc/hr x 2L -Continue to monitor -Elevated troponin may be due to kidney disease HTN urgency--improving -BP improving in ED w/o intervention (did not receive Labetalol dose) -Maxide on hold -Continue Coreg 6.25 mg PO hs (verified dose w/patient) -Cover with hydralazine 10 mg IV q6h prn SBP >180 -Patient refused any increased titration of her bP meds.' -Patient would like this to be deferred to her PCP. Hypomagnesemia, mild hypokalemia -Magnesium 1.6 on admission, potassium 3.4 -Given mag sulfate 2 gm IV in ED. IVF as above w/KCl -Continue to monitor -Resolved CAD, h/o CO s/p stent, HLD -Continue Plavix, Crestor 40 mg PO hs, Coreg DM II--last HgbA1c 9.2 on 01/17/18 -Continue Lantus 20 units SC BID -Insulin sliding scale -Check BSGs q ac and qhs H/o renal artery stenosis s/p renal artery stent--noted DVT prophylaxis -Heparin 5000 units SC q12h -TIFFANY granados and ALICIAs Code Status -Level I, FULL RESUSCITATION STATUS Total Time Spent: Greater than 30 minutes This includes examination of the patient, discharge planning, medication reconciliation, and communication with other providers. Discharge Instructions Please refer to the electronic Patient Visit Report (Discharge Instructions) for additional information. Follow-Up As noted in discharge instructions Additional Copies To Shay Hammond M.D.
== END 2018-03-08 15:20 | disposition home or self-care (01) ==
LOC: C.EDB 11:41 → C.2E 15:58 → ENRESERV 16:07
PROVIDERS: ADMIT Internal Medicine Sports Medicine; ATTEND Internal Medicine Sports Medicine
DX: R07.9 Chest pain, unspecified (principal); E83.42 Hypomagnesemia; E87.6 Hypokalemia; I12.9 Hypertensive chronic kidney disease with stage 1 through stage 4 chronic kidney disease, or unspecified chronic kidney disease; N18.9 Chronic kidney disease, unspecified; I25.10 Atherosclerotic heart disease of native coronary artery without angina pectoris; N18.4 Chronic kidney disease, stage 4 (severe); E11.21 Type 2 diabetes mellitus with diabetic nephropathy; I89.0 Lymphedema, not elsewhere classified; I25.2 Old myocardial infarction; Z98.61 Coronary angioplasty status; Z79.4 Long term (current) use of insulin; Z87.891 Personal history of nicotine dependence; Z88.2 Allergy status to sulfonamides; Z88.0 Allergy status to penicillin; Z82.49 Family history of ischemic heart disease and other diseases of the circulatory system

== ENCOUNTER 2019-11-06 12:53 | Inpatient (IN) ==
[2019-11-06 14:12] LABS: Basophils # (auto) 0.03 K/uL (0-0.2); Basophils % (auto) 0.3 %; Eosinophils # (auto) 0.61 K/uL (0-0.5); Eosinophils % (auto) 6.1 %; Hematocrit (blood only) 32.9 % (37-47); Hemoglobin 10.9 g/dL (12.0-16.0); Immature Granulocytes # (auto) 0.02 K/uL (0.00-0.02); Immature Granulocytes % (auto) 0.2 %; Lymphocytes # (auto) 1.57 K/uL (1.2-3.4); Lymphocytes % (auto) 15.7 %; Mean Corpuscular Hemoglobin 27.8 pg (25-34); Mean Corpuscular Hgb Conc 33.1 g/dL (32-36); Mean Corpuscular Volume 83.9 fL (80-100); Mean Platelet Volume 12.1 fL (7.4-10.4); Monocytes # (auto) 0.53 K/uL (0.11-0.59); Monocytes % (auto) 5.3 %; Neutrophils # (auto) 7.25 K/uL (1.4-6.5); Neutrophils % (auto) 72.4 %; Platelet Count 222 K/uL (130-400); Red Blood Count 3.92 M/uL (4.2-5.4); White Blood Count 10.01 K/uL (4.8-10.8)
[2019-11-06] MEDS ORDERED: cloNIDine HCL 0.1 MG TAB PO ONE (14:18)
--- NOTE | 2019-11-06 14:28 | Emergency Department Note ---
Entered by Cecelia Espinoza acting as a scribe for Danny Duran DO History of Present Illness General Chief complaint: Cardiac Assessment Time Seen by Provider: 11/06/19 13:59 Source: patient History of Present Illness Onset (ago): week(s) 3 Location: chest (central) Radiation: other (jaw (noticed this morning)) Pain Consistency: + constant Quality: + sharp (noticed today ) and + other ("pressure", "shooting") Associated symptoms: + shortness of breath, + weakness and + other (abnormal sensation in right side of abdomen (similar to indigestion during onset), constant belching since stent placement ) The patient is a 69 year old female with a history of [place], CAD, chronic heart failure with preserved ejection fraction, CHF, stent insertion of renal artery, severe left ventricular hypertrophy, stage 3 chronic kidney disease, DM, HTN, and hyperlipidemia who presents to the Emergency Room for a cardiac assessment. The patient states that she has been experiencing constant central chest pressure associated with shortness of breath for the past 3 weeks. Additionally she explains that she has been unable to get out of bed to function due to weakness. This morning, she noticed a sharp chest pain that began shooting into her jaw which prompted her ED visit today. The patient also complains of an abnormal sensation "not a pain, felt similar to indigestion during onset" on the right side of her abdomen. She explains that she has been continuously belching since her cardiac stent placement on 10/12/19 (performed in [place]). Of note, she takes a daily baby ASP and takes medications for hypertension. The patient offers no further concerns at this time. Home Medications Home Medications Medication Instructions Recorded Confirmed Type [id number] oil-D3 [Fish 1 cap PO DAILY 07/12/18 11/06/19 History Oil-Vit D3] pen needle, diabetic 32 gauge x #400 ea 05/29/19 10/23/19 Rx 1/4" insulin lispro 100 unit/mL See Rx Instructions SUBCUT 07/20/19 11/06/19 Rx subcutaneous cartridge .COMPLEX #75 ml rosuvastatin 40 mg tablet 40 mg PO HS 07/29/19 11/06/19 History blood sugar diagnostic #10 ea 08/04/19 10/23/19 History lancets #50 ea 08/04/19 10/23/19 History insulin glargine 100 unit/mL (3 0 units SUBCUT BID ml 10/09/19 11/06/19 History mL) subcutaneous pen furosemide 20 mg tablet 20 mg PO DAILY PRN #90 tab 10/15/19 11/06/19 Rx furosemide 40 mg tablet 40 mg PO DAILY #90 tab 10/15/19 11/06/19 Rx ticagrelor 90 mg tablet 90 mg PO BID 10/23/19 11/06/19 History aspirin [Giselle Chewable Aspirin] 81 mg PO BID 11/06/19 11/06/19 History carvedilol 0 mg PO QAM 11/06/19 11/06/19 History carvedilol 25 mg PO QPM 11/06/19 11/06/19 History Allergies Allergy/AdvReac Type Severity Reaction Status Date / Time Sulfa (Sulfonamide Allergy Intermediate RASH Verified 10/23/19 09:44 Antibiotics) Penicillins Allergy Mild Verified 10/23/19 09:44 meperidine AdvReac Intermediate hallucinate Verified 10/23/19 09:44 s lisinopril AdvReac Mild COUGHING Verified 10/23/19 09:44 Past Med/Surg History Medical History CAD (coronary artery disease) CHF (congestive heart failure) Chronic heart failure with preserved ejection fraction (HFpEF) CKD (chronic kidney disease) stage 3, GFR 30-59 ml/min Diabetes Diverticulosis Elevated troponin History of stent insertion of renal artery 2013 Hyperlipidemia Hypertension Lymphedema Renal artery stenosis Severe left ventricular hypertrophy Status post myocardial infarction Surgical History H/O heart artery stent 2010 Family History Other Hypertension Social History Preferred Language: Divehi Communication Ability: Effective Mail Rider Required: No Beliefs That Will Affect Care: None marital status: / Current Living Situation: Family Current Living Situation Comment: lives with grandson Feels Safe at Home: Yes Smoking Status: Former smoker Second Hand Exposure: No ; Hx Alcohol Use: No Hx Substance Use: No Review of Systems See HPI for pertinent positives & negatives. and A total of 10 systems reviewed and were otherwise negative Physical Exam Vital Signs Vital Signs - 24 hr 11/06/19 13:23 11/06/19 13:37 11/06/19 14:02 Temperature 36.9 C Temperature Source Oral Pulse Rate 51 L Pulse Rate from SpO2 Sensor Pulse Rhythm Regular Pulse Strength Normal Respiratory Rate 17 Respiratory Effort / Characteristics Spontaneous Short of Breath Spontaneous Short of Breath SOB on Exertion Respiratory Depth Normal Respiratory Pattern Regular Blood Pressure 229/83 H Blood Pressure Mean 131 Blood Pressure Position Sitting Pulse Oximetry 97 96 96 Oxygen Delivery Method Room Air Room Air Room Air Sepsis Recent Fever Within 48 Hours No Sepsis New/Unexplained Change in Mental Status No Sepsis Action Taken by Nursing No Action Required 11/06/19 15:00 11/06/19 15:31 11/06/19 16:00 Temperature Temperature Source Pulse Rate 52 L 51 L 53 L Pulse Rate from SpO2 Sensor 52 L 51 L 53 L Pulse Rhythm Pulse Strength Respiratory Rate 16 19 15 Respiratory Effort / Characteristics Respiratory Depth Respiratory Pattern Blood Pressure 220/80 H 134/76 128/62 Blood Pressure Mean 135 104 74 Blood Pressure Position Pulse Oximetry 98 96 96 Oxygen Delivery Method Sepsis Recent Fever Within 48 Hours Sepsis New/Unexplained Change in Mental Status Sepsis Action Taken by Nursing 11/06/19 16:04 11/06/19 16:30 Temperature Temperature Source Pulse Rate 52 L 49 L Pulse Rate from SpO2 Sensor 52 L 50 L Pulse Rhythm Pulse Strength Respiratory Rate 13 15 Respiratory Effort / Characteristics Respiratory Depth Respiratory Pattern Blood Pressure 123/61 110/63 Blood Pressure Mean 80 87 Blood Pressure Position Pulse Oximetry 91 97 Oxygen Delivery Method Sepsis Recent Fever Within 48 Hours Sepsis New/Unexplained Change in Mental Status Sepsis Action Taken by Nursing CONSTITUTIONAL/VITAL SIGNS: Reviewed / noted above. GENERAL: Non-toxic in appearance. INTEGUMENTARY: Warm, dry, and [place]. HEAD: Normocephalic. EYES: without scleral icterus or trauma. ENT/OROPHARYNX: clear and moist. LYMPHADENOPATHY/NECK: Is supple without lymphadenopathy or meningismus. RESPIRATORY: Lungs clear and equal. CARDIOVASCULAR: Regular rate and rhythm. GI/ABDOMEN: Soft and nontender. No organomegaly or pulsatile mass. No rebound or guarding. Normal bowel sounds. EXTREMITIES: Warm and well perfused. BACK: No CVA tenderness. NEUROLOGICAL: Intact without focal deficits. PSYCHIATRIC: normal affect. MUSCULOSKELETAL: Normally developed with good muscle tone. Course Course 1413: Past medical records reviewed. The patient was evaluated in room B05. A complete history and physical exam was performed. 1616: I spoke to Dr. Howell who will further evaluate the patient. 1625: I checked on the patient and updated her on plan to admit. The patient verbally expressed understanding and agreement of the treatment plan. The patient will be evaluated for further treatment. Administered Medications Sodium Chloride (Nss 1000ml) 500 mls @ 999 mls/hr IV .Q31M ONE Stop: 11/06/19 16:47 Last Admin: 11/06/19 16:30 Dose: 999 mls/hr Documented by: [id number] Discontinued Medications Clonidine HCl (Catapres) 0.2 mg PO NOW ONE Stop: 11/06/19 14:19 Last Admin: 11/06/19 14:52 Dose: 0.2 mg Documented by: [id number] Medical Decision Making Differential Diagnosis Differential diagnosis includes but is not limited to Cardiac Ischemia (STEMI, NSTEMI, Unstable Angina, etc), Aortic Dissection, Arrhythmia, Pulmonary Embolism, Pneumonia, Pneumothorax, MSK, Infectious, Pericarditis/Myocarditis, Esophageal Rupture, Gastrointestinal, amongst other pathologies entertained. Medical Records Attestation: I reviewed the patient's medical records. Home Medications Current Medication List: was personally reviewed by me Laboratory Data Attestation: I reviewed the patient's lab results. Result diagrams: 11/06/19 13:31 11/06/19 14:46 Lab Results 11/06/19 11/06/19 11/06/19 Range/Units 13:31 14:46 14:46 WBC 10.01 (4.8-10.8) K/uL RBC 3.92 L (4.2-5.4) M/uL Hgb 10.9 L (12.0-16.0) g/dL Hct 32.9 L (37-47) % MCV 83.9 (80-100) fL MCH 27.8 (25-34) pg MCHC 33.1 (32-36) g/dL RDW Std Deviation 46.0 (36.4-46.3) fL RDW Coeff of Ekaterina 15.0 H (11.5-14.5) % Plt Count 222 (130-400) K/uL MPV 12.1 H (7.4-10.4) fL Immature Gran % (Auto) 0.2 % Neut % (Auto) 72.4 % Lymph % (Auto) 15.7 % Garrard % (Auto) 5.3 % Eos % (Auto) 6.1 % Baso % (Auto) 0.3 % Immature Gran # (Auto) 0.02 (0.00-0.02) K/uL Neut # (Auto) 7.25 H (1.4-6.5) K/uL Lymph # (Auto) 1.57 (1.2-3.4) K/uL Garrard # (Auto) 0.53 (0.11-0.59) K/uL Eos # (Auto) 0.61 H (0-0.5) K/uL Baso # (Auto) 0.03 (0-0.2) K/uL PT 11.0 (9.0-12.0) Seconds INR 1.1 (0.9-1.1) APTT 25.9 (21.0-31.0) Seconds PTT Ratio 1.0 Sodium 140 (136-145) mmol/L Potassium 3.6 (3.5-5.1) mmol/L Chloride 109 H (98-107) mmol/L Carbon Dioxide 24 (21-32) mmol/L Anion Gap 7.0 (3-11) BUN 58 H (7-18) mg/dl Creatinine 2.70 H (0.6-1.2) mg/dl Est Cr Clr Drug Dosing 22.0 ml/min Est GFR ( Amer) 20.0 Est GFR (Non-Af Amer) 17.3 BUN/Creatinine Ratio 21.6 H (10-20) Glucose 128 H (70-99) mg/dl Calcium 9.0 (8.5-10.1) mg/dl Total Bilirubin 0.4 (0.2-1) mg/dl AST 62 H (15-37) U/L ALT 59 (12-78) U/L Alkaline Phosphatase 143 H (45-117) U/L Total Creatine Kinase 1787 H (26-192) U/L Troponin I 0.140 H* (0-0.045) ng/ml Total Protein 7.2 (6.4-8.2) gm/dl Albumin 2.9 L (3.4-5.0) gm/dl Globulin 4.3 H (2.5-4.0) gm/dl Albumin/Globulin Ratio 0.7 L (0.9-2) Lipase 151 (73-393) U/L Imaging Data Radiologist's Impression: Radiology results as stated below per my review and the radiologist's interpretation: XR chest 1V portable HISTORY: Atypical Chest Pain COMPARISON: Chest 09/03/2018. FINDINGS: The lungs are clear. Cardiac silhouette is mildly enlarged. No pleural effusions. No pneumothorax. IMPRESSION: Mild cardiomegaly. Otherwise, no acute process within the chest. ACT 112: Negative or not required by law. Electronically signed by: Donovan Mendez M.D. 11/06/2019 2:36 PM ECG Data Attestation: I personally reviewed and interpreted this ECG as follows: Indication: + chest pain Rate (beats per minute): 52 Rhythm: + sinus bradycardia ECG ST segments: + T-wave inversions (inferior, lateral) ECG Findings: no PVCs Comparison ECG Date: from (07/12/18) Change: the following changes noted (rate is decreased ) Blood Pressure Blood Pressure Findings: Elevated blood pressure Blood Pressure Disposition: further management by hospitalist RODRI Narrative This is a 69-year-old female who presents to the ED with a chief complaint of some pressure in her chest and feeling that she cannot get enough air for about 3 weeks. She states that her symptoms seem to be a little worse with exertion. The patient states that this morning she developed a sharp pain in her chest that radiated into her jaw. For this reason she came into the ED for evaluation. She also states that she has been burping a lot since her last stent was placed in the RCA on October 122018. The patient has an appointment to see Dr. Knott on Saturday. Her initial blood pressure was elevated. 229/83. Heart rate was 50. The patient's physical exam was otherwise unremarkable. She is not in any distress. She was given clonidine 0.2 mg p.o. for her blood pressure. The patient also reports a previous stent in the left circumflex artery?. The patient has an EKG that shows a sinus bradycardia at a rate of 52 with some T wave inversions anterior lateral. Her CBC was unremarkable. BUN is 58 and creatinine is 2.7. This is mostly chronic but slig htly worse than her baseline. Lipase was negative. Chest x-ray is negative for acute disease. Troponin is elevated at 0.140. The patient was significantly hypertensive initially during her stay. She was given clonidine 0.2 mg p.o. Her blood pressure improved with this. She will be seen by the hospitalist for further evaluation and care of her symptoms. Impression & Plan Elevated troponin, Chest pain, CRI (chronic renal insufficiency), Hypertensive emergency Discharge Plan Visit Data Chief Complaint: Cardiac Assessment Other Complaint: Abdominal Pain ED Provider: Danny Duran Discharge Problem: Elevated troponin, Chest pain, CRI (chronic renal insufficiency), Hypertensive emergency Patient Disposition: Being Evaluated by Hospitalist Forms Stand Alone Forms: Call Back Authorization, [facility] Prescriptions Prescriptions: No Action (DME) pen needle, diabetic [Novofine 32] 32 gauge x 1/4" needle See Dose Instructions .ROUTE .MEDSUPPLY Qty: 400 RF: 3 Humalog U-100 Insulin 100 unit/mL cartridge See Patient Comments SUBCUT .COMPLEX Qty: 75 RF: 3 furosemide 20 mg tablet 20 mg PO DAILY PRN (Reason: edema) Qty: 90 RF: 0 furosemide 40 mg tablet 40 mg PO DAILY Qty: 90 RF: 1 rosuvastatin [Crestor] 40 mg tablet 40 mg PO HS RF: 0 Brilinta 90 mg tablet 90 mg PO BID RF: 0 (DME) OneTouch Ultra Blue Test Strip strip See Dose Instructions .ROUTE .MEDSUPPLY Qty: 10 RF: 0 (DME) lancets [OneTouch UltraSoft Lancets] [facility] [place] See Dose Instructions .ROUTE .MEDSUPPLY Qty: 50 RF: 0 Lantus Solostar U-100 Insulin 100 unit/mL (3 mL) insulin pen 0 units SUBCUT BID RF: 0 [id number]-fish oil-D3 [Fish Oil-Vit D3] 360 mg-1,200 mg -1,000 unit Capsule 1 cap PO DAILY RF: 0 carvedilol 25 mg tablet 25 mg PO QPM RF: 0 carvedilol 3.125 mg tablet 0 mg PO QAM RF: 0 aspirin [Giselle Chewable Aspirin] 81 mg Tablet,Chewable 81 mg PO BID RF: 0 Referrals Referrals: Shay Hammond [Primary Care Provider] - Discharge Problem: Chest pain Qualifiers: Chest pain type: precordial pain Qualified Code(s): R07.2 - Precordial pain CRI (chronic renal insufficiency) Qualifiers: Chronic kidney disease stage: stage 4 (severe) Qualified Code(s): N18.4 - Chronic kidney disease, stage 4 (severe) The scribe's documentation has been prepared under my direction and personally reviewed by me in its entirety. I confirm that the note above accurately reflects all work, treatment, procedures, and medical decision making performed by me.
--- NOTE | 2019-11-06 14:38 | XRay Report ---
XR chest 1V portable HISTORY: Atypical Chest Pain COMPARISON: Chest 09/03/2018. FINDINGS: The lungs are clear. Cardiac silhouette is mildly enlarged. No pleural effusions. No pneumo thorax. IMPRESSION: Mild cardiomegaly. Otherwise, no acute process within the chest. ACT 112: Negative or not required by law. Electronically signed by: Donovan Mendez M.D. 11/06/2019 2:36 PM
[2019-11-06 15:14] LABS: INR 1.1 (0.9-1.1); Partial Thromboplastin Time 25.9 Seconds (21.0-31.0)
[2019-11-06 15:19] LABS: Albumin Level 2.9 gm/dl (3.4-5.0); BUN Creatinine Ratio 21.6 (10-20); Est GFR (Non-African American) 17.3; Potassium 3.6 mmol/L (3.5-5.1)
[2019-11-06 15:48] LABS: Albumin Globulin Ratio 0.7 (0.9-2); Bilirubin,Total 0.4 mg/dl (0.2-1); Globulin 4.3 gm/dl (2.5-4.0); Total Protein 7.2 gm/dl (6.4-8.2); Troponin I 0.14 ng/ml (0-0.045)
[2019-11-06] MEDS ORDERED: SODIUM CHLORIDE 0.9% 1000ML 500 ML IV ONE (16:17)
--- NOTE | 2019-11-06 16:51 | Electrocardiogram Report ---
Test Reason : Blood Pressure : / mmHG Vent. Rate : 052 BPM Atrial Rate : 052 BPM P-R Int : 166 ms QRS Dur : 094 ms QT Int : 528 ms P-R-T Axes : 059 -01 185 degrees QTc Int : 491 ms Sinus bradycardia Left ventricular hypertrophy with repolarization abnormality Prolonged QT Abnormal ECG When compared with ECG of 12-JUL-2018 08:12, Vent. rate has decreased BY 29 BPM Confirmed by Chris Ortiz ([id number]) on 11/06/2019 4:51:26 PM Referred By: Confirmed By:Chris Ortiz
[2019-11-06] MEDS ORDERED: CARBOHYDRATES FOR HYPOGLYCEMIA PO PRN (20:25)
[2019-11-06] MEDS ORDERED: GLUCAGON FOR INJ 1 MG VIAL SQ PRN (20:25)
[2019-11-06] MEDS ORDERED: cloNIDine HCL 0.1 MG TAB PO PRN (20:25)
[2019-11-06] MEDS ORDERED: GLUCOSE 40% GEL 15 GM TUBE PO PRN (20:25)
[2019-11-06] MEDS ORDERED: DEXTROSE 50% 50 ML SYRINGE IV PRN (20:25)
[2019-11-06] MEDS ORDERED: FUROSEMIDE 40 MG/4 ML VIAL IV STA (20:25)
[2019-11-06] MEDS ORDERED: GLUCOSE 10 TABS/TUBE PO PRN (20:25)
[2019-11-06] MEDS ORDERED: POLYETHYLENE (MIRALAX) 17 GM PACK PO PRN (20:25)
[2019-11-06] MEDS ORDERED: ALUMINUM/MAGNESIUM SUSP 30 ML UDC PO PRN (20:25)
[2019-11-06] MEDS ORDERED: OXYCODONE/ACETAMINOPHEN 5mg/325mg TAB PO PRN (20:25)
[2019-11-06] MEDS ORDERED: MAGNESIUM HYDROXIDE SUSP 30 ML UDC PO PRN (20:25)
[2019-11-06] MEDS ORDERED: FUROSEMIDE 40 MG in SYRINGE 0 ML IV SCH (20:45)
[2019-11-06 20:51] LABS: Basophils # (auto) 0.03 K/uL (0-0.2); Basophils % (auto) 0.3 %; Eosinophils # (auto) 0.71 K/uL (0-0.5); Hematocrit (blood only) 33.4 % (37-47); Hemoglobin 10.8 g/dL (12.0-16.0); Immature Granulocytes # (auto) 0.03 K/uL (0.00-0.02); Immature Granulocytes % (auto) 0.3 %; Lymphocytes # (auto) 1.73 K/uL (1.2-3.4); Lymphocytes % (auto) 17.1 %; Mean Corpuscular Hemoglobin 27.2 pg (25-34); Mean Corpuscular Hgb Conc 32.3 g/dL (32-36); Mean Corpuscular Volume 84.1 fL (80-100); Mean Platelet Volume 11.3 fL (7.4-10.4); Monocytes # (auto) 0.69 K/uL (0.11-0.59); Monocytes % (auto) 6.8 %; Neutrophils # (auto) 6.95 K/uL (1.4-6.5); Neutrophils % (auto) 68.5 %; Platelet Count 211 K/uL (130-400); RDW Coefficient of Variation 14.8 % (11.5-14.5); RDW Standard Deviation 45.4 fL (36.4-46.3); Red Blood Count 3.97 M/uL (4.2-5.4); White Blood Count 10.14 K/uL (4.8-10.8)
[2019-11-06] MEDS ORDERED: PHARMACY GLYCEMIC MGMT CONSULT PRN (20:53)
[2019-11-06] MEDS ORDERED: INSULIN ASPART 100 UNITS/ML 3 ML PEN SC SCH (21:00)
[2019-11-06] MEDS ORDERED: INSULIN GLARGINE SOLOSTAR 100 UNITS/ML 3 ML PEN SC ONE (21:00)
[2019-11-06 21:36] LABS: Thyroid Stimulating Hormone 1.35 uIu/ml (0.300-4.500); Troponin I 0.131 ng/ml (0-0.045)
--- NOTE | 2019-11-06 22:19 | History & Physical Report ---
Date of Service November 06, 2019 Assessment & Plan (1) Chest pain: Admit to telemetry for observation for chest pain Vital signs every 4 hours Trend troponin x3 with EKG TTE pending Consider consulting cardiology if symptoms persist DVT prophylaxis teds and SCD Full code Present on Admission?: Yes (2) Elevated troponin: Likely elevated due to hypertensive emergency when patient presented in the ER, in addition to poor clearance due to worsening CKD stage III. Demand ischemia. Patient blood pressure was 229/83 on the entrance to the ER. Her blood pressure was controlled with clonidine 0.2 mg x 1 Continue trending down troponin x3 with EKG Continue telemetry. Nitroglycerin 0.4 mg as needed as needed for angina. Present on Admission?: Yes (3) Hypertensive emergency: Patient was treated in the emergency room with clonidine 0.2 mg p.o. x1. That decrease her blood pressure to 134/76. Preferably will try to keep blood pressure below 160 and diastolic below 90. Continue home medicine aspirin 81 mg p.o. twice daily, carvedilol 25 mg p.o. every afternoon, Furosemide switched to 40 mg IV twice daily since patient also has developing exacerbation of congestive heart failure With volume overload. Present on Admission?: Yes (4) Chronic heart failure with preserved ejection fraction (HFpEF): Strict in and out, Daily weight BNP is elevated to 5767 partially due to developing congestive heart failure and due to poor kidney clearance with worsening CKD stage III. Low-salt diet Restrict p.o. fluids to 1200 mils per day P.o. furosemide switched to IV 20 mg twice daily. Monitor kidney function closely since patient on furosemide and if worsening decrease furosemide Present on Admission?: Yes (5) Diabetes mellitus: A1c pending Use two thirds of basal insulin from home dose and sliding scale insulin to prevent developing hypoglycemia while patient in the hospital. Accu-Cheks before meals and at bedtime. Deferred Glycemic control to pharmacy Present on Admission?: Yes (6) Hypertension: As discussed above Present on Admission?: Yes (7) CAD (coronary artery disease): Continue home medicine Carvedilol 25 mg p.o. every afternoon Rosuvastatin 40 mg p.o. nightly Ticagrelor 90 mg p.o. twice daily Fish oil 1 capsule p.o. daily Aspirin 81 mg p.o. twice daily Present on Admission?: Yes (8) Hyperlipidemia: Lipid panel pending Continue rosuvastatin 40 mg p.o. nightly and omega 3 fish oil 1 capsule p.o. daily Present on Admission?: Yes (9) Acute on chronic renal failure: Baseline creatinine/GFR is 2.14/22.9 and today 18 is worsening to 2.7/17.3. Avoid nephrotoxic agents Continue monitoring creatinine and GFR Consider consulting Dr. Danny Sandoval if renal function is worsening. Disposition Home with family Present on Admission?: Yes History of Present Illness Chief Complaint: Chest pain and abdominal pain Primary Care Provider: Shay Hammond The patient is a 69 years old female with past medical history of STEMI, coronary artery disease with [address] [facility] in [place], chronic heart failure with preserved ejection fraction, stent insertion to the left renal artery in 2013, severe left ventricular hypertrophy, stage III CKD, diabetes mellitus type 2, hypertension, and hyperlipidemia, who presents to the emergency room for a chest pain and shortness of breath that she is experiencing for 3 weeks. Patient reports generalized weakness and inability to get out of bed due to it. This morning patient noted a sharp chest pain that was shooting into her jaw and stomach. Patient reports mild digestion and belching since cardiac stent placement on October 12, [address] [facility]. This was a second and third stent that was placed recently and the first stent was placed 10 years ago in [facility]. Denies fever, chills, melena, near syncope, nausea, vomiting, dysuria, hematuria. EKG is reviewed and shows sinus bradycardia, left ventricular hypertrophy, with repolarization abnormality. Prolonged QT interval, abnormal EKG when compared with EKG on July 12, 2018 and decreased ventricular beat by 29 bpm. For patient chronic kidney insufficiency patient sees Dr. Danny Sandoval and last visit occurred on October 23, 2019. 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 Jimenez note he increased carvedilol to 25 mg nightly. He also recommended cardiovascular vascular evaluation and [facility] in [place]. He held angiotensin receptor blockers due to possibility to worsening her renal function. Labs are reviewed: WBC is 10.14, hemoglobin 10.8, hematocrit 33.4 platelets 211, PT 11, INR 1.1, APTT 25.9, sodium 140, potassium 3.6, chloride 109, anion gap 7, BUN 58, creatinine 2.7 from baseline 2.14, and GFR 17.3 from baseline 22.9, hemoglobin A1c as of September 07, 2019 6.5, AST 62, ALT 59, alkaline phosphatase 143, total creatinine kinase 1787, troponin 0.0140--> 0.131, BNP 5767, TSH 1.35, lipase 151 Albumin 2.9. Chest x-rays mild cardiomegaly, otherwise no acute process within the chest. Decision was made to admit patient to telemetry for chest pain for observation Allergies Allergy/AdvReac Type Severity Reaction Status Date / Time Sulfa (Sulfonamide Allergy Intermediate RASH Verified 10/23/19 09:44 Antibiotics) Penicillins Allergy Mild Verified 10/23/19 09:44 meperidine AdvReac Intermediate hallucinate Verified 10/23/19 09:44 s lisinopril AdvReac Mild COUGHING Verified 10/23/19 09:44 Home Medications Home Medications Medication Instructions Recorded Confirmed Type [id number] oil-D3 [Fish 1 cap PO DAILY 07/12/18 11/06/19 History Oil-Vit D3] pen needle, diabetic 32 gauge x #400 ea 05/29/19 10/23/19 Rx 1/4" insulin lispro 100 unit/mL See Rx Instructions SUBCUT 07/20/19 11/06/19 Rx subcutaneous cartridge .COMPLEX #75 ml rosuvastatin 40 mg tablet 40 mg PO HS 07/29/19 11/06/19 History blood sugar diagnostic #10 ea 08/04/19 10/23/19 History lancets #50 ea 08/04/19 10/23/19 History insulin glargine 100 unit/mL (3 0 units SUBCUT BID ml 10/09/19 11/06/19 History mL) subcutaneous pen furosemide 20 mg tablet 20 mg PO DAILY PRN #90 tab 10/15/19 11/06/19 Rx furosemide 40 mg tablet 40 mg PO DAILY #90 tab 10/15/19 11/06/19 Rx ticagrelor 90 mg tablet 90 mg PO BID 10/23/19 11/06/19 History aspirin [Giselle Chewable Aspirin] 81 mg PO BID 11/06/19 11/06/19 History carvedilol 0 mg PO QAM 11/06/19 11/06/19 History carvedilol 25 mg PO QPM 11/06/19 11/06/19 History Past Med/Surg History Medical History CAD (coronary artery disease) CHF (congestive heart failure) Chronic heart failure with preserved ejection fraction (HFpEF) CKD (chronic kidney disease) stage 3, GFR 30-59 ml/min Diabetes Diverticulosis Elevated troponin History of stent insertion of renal artery 2013 Hyperlipidemia Hypertension Lymphedema Renal artery stenosis Severe left ventricular hypertrophy Status post myocardial infarction Surgical History H/O heart artery stent 2010 Family History Other Hypertension Social History Preferred Language: Kenyan Communication Ability: Effective Staff Services Manager Required: No Beliefs That Will Affect Care: Christian Christian Beliefs: PATIENT STATES SHE NEEDS A PRIVATE ROOM FOR HER "CONGREGATION PRAYERS" marital status: / Current Living Situation: Family Current Living Situation Comment: lives with grandson Other Information That Helps Us Care for You: No Feels Safe at Home: Yes Safety Concerns: Feels Safe At This Time Smoking Status: Former smoker Second Hand Exposure: No ; Hx Alcohol Use: No Hx Substance Use: No Review of Systems Review of Systems: All systems reviewed & are unremarkable except as noted in HPI & below Physical Exam Constitutional: WD/WN, vitals as above well developed Eyes: PERRL, conjunctivae normal, anicteric sclerae ENMT: external ear and nose normal, oropharynx normal Neck: trachea midline, no thyromegaly Respiratory: normal respiratory effort, lungs clear to auscultation Cardiovascular: RRR, no murmur, no edema Vessels: dorsalis pedis pulses present Gastrointestinal (Abdomen): Inspection/Auscultation: abdomen normal to inspection and + abdomen distended Percussion/Palpation: + abdomen tender and abdomen soft Right upper quadrant tenderness, positive Hickman sign Musculoskeletal: no cyanosis or clubbing, extremities motor strength 5/5 Skin: no rashes, warm and dry Neurologic: patellar DTR's 2+ bilat, sensation intact Psychiatric: A+Ox3, euthymic affect Lymphatic: no cervical or axillary lymphadenopathy Results & Data Vital Signs (Past 12 Hours) Vital Signs Temp Pulse Resp BP Pulse Ox 11/06/19 18:00 53 L 16 168/77 H 98 11/06/19 17:31 54 L 16 155/69 H 97 11/06/19 17:00 50 L 13 134/61 97 11/06/19 16:42 53 L 18 121/61 98 11/06/19 16:30 49 L 15 110/63 97 11/06/19 16:04 52 L 13 123/61 91 11/06/19 16:00 53 L 15 128/62 96 11/06/19 15:31 51 L 19 134/76 96 11/06/19 15:00 52 L 16 220/80 H 98 11/06/19 14:02 96 11/06/19 13:37 96 11/06/19 13:23 36.9 C 51 L 17 229/83 H 97 Code Status & VTE Plan Code Status Full code VTE Prophylaxis Plan VTE Prophylaxis will be ordered: Yes PG Care Time/CCT Total # of Minutes Spent Total Time Spent with Patient: Total time spent is greater than 50% in coordination of care (as documented) at patient's floor/unit and/or counseling patient: (1) Chest pain Chest pain type: precordial pain Qualified Code(s): R07.2 - Precordial pain (2) CAD (coronary artery disease) Coronary Disease-Associated Artery/Lesion type: [place] artery [place] vs. transplanted heart: [place] heart Associated angina: without angina Qualified Code(s): I25.10 - Atherosclerotic heart disease of [place] coronary artery wit hout angina pectoris (3) Hyperlipidemia Hyperlipidemia type: unspecified Qualified Code(s): E78.5 - Hyperlipidemia, unspecified
[2019-11-06] MEDS ORDERED: NITROGLYCERIN SL 0.4 MG/TAB TAB SL PRN (22:49)
--- NOTE | 2019-11-06 23:04 | CT Scan Report ---
CT SCAN OF THE ABDOMEN AND PELVIS WITHOUT CONTRAST CLINICAL HISTORY: right upper quadrant pain COMPARISON STUDY: April 10, 2019 TECHNIQUE: CT scan of the abdomen and pelvis was performed from the lung bases to the proximal femurs . Images are reviewed in the axial, sagittal, and coronal planes. IV contrast was not administered fo r this examination. A dose lowering technique was utilized adhering to the principles of ALARA. CT DOSE: 1300.49 mGy.cm FINDINGS: Lower chest: There are coronary artery calcifications. There is a small pericardial effusion. There a re no significant pleural effusions. Liver: There is a stable 4 mm hypodensity within the right hepatic lobe. Gallbladder: Unremarkable. Spleen: Normal in size and attenuation. Pancreas: Unremarkable. Adrenal glands: There is minor adrenal gland thickening similar to the prior study. Kidneys: There is a 5 cm lower pole right renal cyst. There is no hydronephrosis. There is a 14 mm le ft renal cyst. There are nonobstructing renal calculi. No ureteral or bladder calculi are visualized. There is a left renal artery stent. Bowel: There are no transition zones to indicate bowel obstruction. The appendix appears normal. Ther e is pancolonic diverticulosis. There is no evidence of acute diverticulitis. Peritoneum: There is no intraperitoneal free air or abdominal ascites. There is a tiny fat-containing umbilical hernia. Vasculature: There is no evidence of abdominal aortic aneurysm. Adenopathy: Peripancreatic lymph nodes are the upper limits of normal in size. Pelvic viscera: The bladder, and pelvic viscera are unremarkable. Skeletal structures: No destructive osseous lesions are seen. IMPRESSION: 1. No acute abdominal or pelvic findings 2. No evidence of bowel obstruction. No evidence of free air 3. Normal appendix 4. Pandiverticulosis. No evidence of acute diverticulitis 5. Bilateral nephrolithiasis. No ureteral calculi identified ACT 112: Negative or not required by law. Electronically signed by: Koko Russell M.D. 11/06/2019 11:02 PM
[2019-11-06] MEDS: TICAGRELOR 90 MG TAB PO SCH (23:32)
[2019-11-06] MEDS: carvediloL 25 MG TAB PO SCH (23:32)
[2019-11-06] MEDS: ROSUVASTATIN CALCIUM 20 MG TAB PO SCH (23:33)
[2019-11-06] MEDS: ASPIRIN 81 MG ECTAB PO SCH (23:33)
[2019-11-07] MEDS ORDERED: INSULIN HUMAN LISPRO (humaLOG) 100 UNITS/ML VIAL SC ONE (00:45)
[2019-11-07 02:36] LABS: Basophils # (auto) 0.02 K/uL (0-0.2); Basophils % (auto) 0.2 %; Eosinophils # (auto) 0.59 K/uL (0-0.5); Eosinophils % (auto) 5.8 %; Hematocrit (blood only) 30.5 % (37-47); Hemoglobin 9.9 g/dL (12.0-16.0); Immature Granulocytes # (auto) 0.02 K/uL (0.00-0.02); Immature Granulocytes % (auto) 0.2 %; Lymphocytes # (auto) 1.59 K/uL (1.2-3.4); Lymphocytes % (auto) 15.7 %; Mean Corpuscular Hemoglobin 27.3 pg (25-34); Mean Corpuscular Hgb Conc 32.5 g/dL (32-36); Mean Corpuscular Volume 84.3 fL (80-100); Mean Platelet Volume 10.9 fL (7.4-10.4); Monocytes # (auto) 0.98 K/uL (0.11-0.59); Monocytes % (auto) 9.7 %; Neutrophils # (auto) 6.91 K/uL (1.4-6.5); Neutrophils % (auto) 68.4 %; Platelet Count 181 K/uL (130-400); RDW Coefficient of Variation 14.7 % (11.5-14.5); RDW Standard Deviation 45.8 fL (36.4-46.3); Red Blood Count 3.62 M/uL (4.2-5.4); White Blood Count 10.11 K/uL (4.8-10.8)
[2019-11-07 03:27] LABS: Albumin Level 2.5 gm/dl (3.4-5.0); BUN Creatinine Ratio 21.7 (10-20); Calcium 8.5 mg/dl (8.5-10.1); Creatinine Clr Calc Pharmacy 22.5 ml/min; Est GFR (African American) 20.5; Est GFR (Non-African American) 17.7; Potassium 3.2 mmol/L (3.5-5.1)
[2019-11-07 03:34] LABS: Albumin Globulin Ratio 0.6 (0.9-2); Bilirubin,Total 0.3 mg/dl (0.2-1); Total Protein 6.5 gm/dl (6.4-8.2); Troponin I 0.139 ng/ml (0-0.045)
--- NOTE | 2019-11-07 05:17 | Communication Note ---
Date of Service: November 07, 2019 S: At approximately 4:15 AM I was alerted to the patient's complaints of chest pressure, and associated right upper quadrant pain. The patient was given 0.4 mg of sublingual nitro prior to my arrival and an EKG was obtained. Upon my arrival the patient was in no acute distress, reporting her chest pressure had resolved, and still endorsing right upper quadrant pain. Patient specifically denied shortness of breath, chest pressure, chest pain, GERD-like symptoms, funny feeling down her left arm, or other concerning signs or symptoms related to a ACS type picture. O: Patient's most recent troponin was 0.139, will continue to trend. AFVSS General: No acute distress resting comfortably watching TV Neck: Trachea midline did not appreciate JVD Cardiac: Regular rate and rhythm, systolic ejection murmur present this is not new, normal S1 normal S2, I did not appreciate rubs or gallops. Negative pedal edema, negative calf tenderness. Upon palpating patient's sternum she responded painfully Respiratory: Clear to auscultation bilaterally without significant wheezes, rales, rhonchi. Symmetrical chest expansion bilaterally. GI: Right upper quadrant tenderness, negative tenderness on deep palpation, negative Hickman sign, negative rebound, negative guarding Neuro: Alert and oriented x4 Psych: Calm and cooperative A/P: 69-year-old female with a complex past medical history including acute on chronic renal failure, chronic heart failure with preserved ejection fraction, diabetes, CAD, who presented for evaluation of hypertensive urgency and chest pain reporting chest pain responsive to nitro and right upper quadrant abdominal pain #Chest pain Cardiac versus costochondritis. The fact that she states the pain is more of a chest pressure leads more towards a cardiac etiology however she did also respond to palpation of her sternum.. Regardless her pain responded to nitroglycerin, her vital signs are stable, there are no acute concerns, I do not believe this represents an ACS type picture. -Continue NTG as needed -Follow-up with cardiology in the morning -Continue to trend troponins #Right upper quadrant abdominal pain Etiology unknown, differential to include gas, gallbladder pain, or muscle spasm. There is no rebound or guarding, there is no peritoneal signs, I do not believe this represents an acute abdomen. -Pain control, patient has PRN oxycodone acetaminophen ordered, has not taken any -Monitor for signs or symptoms of increasing intensity, or progression to overt pain -Primary team can consider GI consult Jim Walker MD PGY 2, FCM This chart was completed utilizing [employer] voice recognition software. Grammatical errors, random word insertions, pronoun errors, and in complete sentences are an occasional consequence of the system. Any questions or concerns about the content, text, or information contained within the body of this dictation should be addressed directly to the physician for clarification. Resident Activity Tracking Resident Involvement: Resident Care Provided Care Provided: Adult Hospital Medicine
[2019-11-07 06:28] LABS: Estimated Average Glucose 146 mg/dl; Hemoglobin A1C 6.7 % (4.5-5.6)
[2019-11-07] MEDS ORDERED: PERFLUTREN LIPID MICROSPHERE (DEFINITY) IV ONE (07:44)
[2019-11-07] MEDS: carvediloL 25 MG TAB PO SCH ×2 (08:49→21:30)
[2019-11-07] MEDS: TICAGRELOR 90 MG TAB PO SCH ×2 (08:49→21:31)
[2019-11-07] MEDS: ASPIRIN 81 MG ECTAB PO SCH ×2 (08:49→21:30)
[2019-11-07] MEDS ORDERED: OMEGA-3 (PURIFIED FISH OIL) 1 GM CAP PO SCH (09:00)
[2019-11-07] MEDS ORDERED: carvediloL 25 MG TAB PO SCH (09:00)
[2019-11-07] MEDS: FUROSEMIDE 20 MG in SYRINGE 0 ML IV SCH ×2 (09:03→17:14)
[2019-11-07] MEDS: INSULIN HUMAN LISPRO (humaLOG) 100 UNITS/ML VIAL SC SCH ×4 (09:15→21:35)
--- NOTE | 2019-11-07 10:49 | Pharmacy Report ---
Glycemic Control Consultation - Date of Service November 07, 2019 - Scope Scope: Glycemic Pharmacist consulted by Dr Arroyo on 11/06 for glycemic control and to write orders per [facility] inpatient glycemic control protocol - Objective Weight: 96.8 kg Accuchecks BSG (last 24hrs): 11/06/19 11/06/19 11/07/19 14:46 23:30 00:29 Glucose 128 H POC Glucose 222 H 225 H 11/07/19 11/07/19 02:25 07:41 Glucose 136 H POC Glucose 116 H Laboratory Data (last 24hrs): 11/06/19 11/07/19 14:46 02:25 Potassium 3.6 3.2 L Carbon Dioxide 24 24 Anion Gap 7.0 4.0 Creatinine 2.70 H 2.65 H Est Cr Clr Drug Dosing 22.0 22.5 HbA1c: Hemoglobin A1c 6.7 % (4.5-5.6) H 11/07/19 02:25 - Recent Pertinent Medications Outpatient Anti-diabetic Regimen: * Humalog 10 units with breakfast, 20 units with lunch and dinner * Lantus BID per sliding scale - per patient, she does not always take this * A1c = 6.7 % 11/07/19 The patient is currently receiving: * Basal insulin: Lantus 20 units last night * Correctional Insulin: Novolog Correction per scale ACHS Goal Range: Low 110 mg/dL - High 140 mg/dL Correction Factor: 25 mg/dL/unit * Prandial insulin: Per carb ratio of 1 unit per 8 grams CHO consumed Risk Factors for Insulin Resistance: * Diet: T2DM - Assessment & Plan Assessment & Plan: ASSESSMENT: * 69 y/o F admitted for CP, hypertensive emergency and abdominal pain. PMH notable for T2DM, HFpEF, CKD. A1c well controlled; however, may not be reliable in CKD. Last dose of Lantus RECONDITIONING ASSOCIATE was 15 units on 11/04. BSGs were in range in the ED but increased to the 200s last night. She received 20 units of Lantus last night with fasting BSG of 116 mg/dL this AM. SCr remains elevated from baseline. * Dietitian notified me that patient refused carb counting and wanted a regular diet. Dietitian was going to speak with patient to obtain more information. Patient will require carb counting for appropriate insulin dosing. PLAN FOR INPATIENT GLYCEMIC CONTROL: * Basal insulin * Lantus qHS per the following scale: * 10 units for BSG < 140 * 20 units for BSG 140 or above (~0.3 units/kg based on adj body weight) * Bolus insulin - no change * Humalog (allergy to Novolog) per scale ACHS or Q6hrs while NPO * Goal Range: Low 110 mg/dL - High 140 mg/dL * Correction Factor: 25 mg/dL/unit * Nutritional / Prandial insulin per carb ratio of 1 unit per 8 grams CHO consumed * Please note that the plan above was derived based on current level of insulin resistance and hospital stress. These recommendations are appropriate for inpatient admission only. Plan of care upon discharge will need to be reassessed to avoid potential outpatient hypo/hyperglycemia. Thank you.
--- NOTE | 2019-11-07 11:10 | Hospitalist Progress Note ---
Date of Service November 07, 2019 Assessment & Plan (1) Chest pain: Continue on telemetry for observation for chest pain Vital signs every 4 hours Trend troponin x3 with EKG, trending down 0.131--> 0.139--> 0.115 TTE result pending Consult cardiology DVT prophylaxis teds and SCD Full code (2) Elevated troponin: Likely elevated due to hypertensive emergency when patient presented in the ER, in addition to poor clearance due to worsening CKD stage III. Demand ischemia. Patient blood pressure was 229/83 on the entrance to the ER. Her blood pressure was controlled with clonidine 0.2 mg x 1 Patient reports that blood pressure was too low with clonidine that she received yesterday Clonidine discontinued and instead started hydralazine 10 mg p.o. 4 times daily as needed for systolic blood pressure over 160 and diastolic blood pressure over 90. Continue telemetry. Nitroglycerin 0.4 mg as needed as needed for angina. (3) Hypertensive emergency: Patient was treated in the emergency room with clonidine 0.2 mg p.o. x1. That decrease her blood pressure to 134/76. Preferably will try to keep blood pressure below 160 and diastolic below 90, without trying to overdo it. Allow permissible hypertension. Continue home medicine aspirin 81 mg p.o. twice daily, carvedilol 25 mg p.o. every afternoon, Furosemide switched to 40 mg IV twice daily since patient also has developing exacerbation of congestive heart failure with volume overload. Continue monitoring strict in and outs and daily weight. (4) Chronic heart failure with preserved ejection fraction (HFpEF): Strict in and out, Daily weight BNP is elevated to 5767 partially due to developing congestive heart failure and due to poor kidney clearance with worsening CKD stage III. Low-salt diet Restrict p.o. fluids to 1200 mils per day P.o. furosemide switched to IV 20 mg twice daily. Monitor kidney function closely since patient on furosemide and if worsening decrease furosemide (5) Diabetes mellitus: A1c 6.7 Use two thirds of basal insulin from home dose and sliding scale insulin to prevent developing hypoglycemia while patient in the hospital. Accu-Cheks before meals and at bedtime. Deferred Glycemic control to pharmacy (6) Hypertension: As discussed above (7) CAD (coronary artery disease): Continue home medicine Carvedilol 25 mg p.o. every afternoon Rosuvastatin 40 mg p.o. nightly Ticagrelor 90 mg p.o. twice daily Fish oil 1 capsule p.o. daily increase to twice a day because patient's triglycerides are elevated. Patient would need tighter glycemic control. Aspirin 81 mg p.o. twice daily (8) Hyperlipidemia: Lipid panel : While patient total cholesterol is low proportion between good and bad cholesterol is 4. Patient would need to work on improving her good cholesterol, with either weight loss exercises and dieting. Placed dietitian consult. Continue rosuvastatin 40 mg p.o. nightly and omega 3 fish oil 1 capsule p.o. daily (9) Acute on chronic renal failure: Creatinine/GFR 2.7/17.3--> 2.65/17.7, improving. Continue current regimen. Avoid nephrotoxic agents Continue monitoring creatinine and GFR Consulted Dr. Danny Sandoval nephrology Disposition Home with family Subjective Patient seen and examined at the bedside. She reports that she is feeling much better this morning but continues to complain of right upper quadrant pain and feeling bloated. Patient reports having bowel movement last night and she states that it was satisfactory. CT scan of the abdomen and pelvis did not relieve any acute issue. Patient is afebrile overnight. P.o. intake is improving. Troponin is trending down. Creatinine is slowly improving as well. Patient denies fever, chills, chest pain, shortness of breath, frequency, urgen cy, syncope, near syncope, melena, hematuria, dysuria. Review of Systems Review of Systems: All systems reviewed & are unremarkable except as noted in HPI & below Physical Exam Constitutional: WD/WN, vitals as above well developed Eyes: PERRL, conjunctivae normal, anicteric sclerae ENMT: external ear and nose normal, oropharynx normal Neck: trachea midline, no thyromegaly Respiratory: normal respiratory effort, lungs clear to auscultation Cardiovascular: RRR, no murmur, no edema Vessels: dorsalis pedis pulses present Gastrointestinal (Abdomen): Inspection/Auscultation: abdomen normal to inspection and + abdomen distended Percussion/Palpation: + abdomen tender and abdomen soft Musculoskeletal: no cyanosis or clubbing, extremities motor strength 5/5 Skin: no rashes, warm and dry Neurologic: patellar DTR's 2+ bilat, sensation intact Psychiatric: A+Ox3, euthymic affect Lymphatic: no cervical or axillary lymphadenopathy Results & Data Vital Signs (Past 12 Hours) Vital Signs Temp Pulse Pulse Resp BP Pulse Ox 11/07/19 10:55 36.8 C 60 18 157/75 H 95 11/07/19 08:07 55 L 11/07/19 07:22 36.7 C 51 L 18 162/83 H 97 11/07/19 04:00 36.5 C 58 L 19 148/70 H 96 11/07/19 01:47 58 L 11/07/19 01:46 55 L PG Care Time/CCT Total # of Minutes Spent Total Time Spent with Patient: Total time spent is greater than 50% in coordination of care (as documented) at patient's floor/unit and/or counseling patient: (1) Chest pain Chest pain type: precordial pain Qualified Code(s): R07.2 - Precordial pain (2) CAD (coronary artery disease) Coronary Disease-Associated Artery/Lesion type: [place] artery [place] vs. transplanted heart: [place] heart Associated angina: without angina Qualified Code(s): I25.10 - Atherosclerotic heart disease of [place] coronary artery without angina pectoris (3) Hyperlipidemia Hyperlipidemia type: unspecified Qualified Code(s): E78.5 - Hyperlipidemia, unspecified
[2019-11-07] MEDS ORDERED: POTASSIUM CHLORIDE 20 MEQ TABCR PO STA (11:23)
[2019-11-07] MEDS: HydrALAZINE 10 MG TAB PO PRN ×2 (16:07→23:03)
--- NOTE | 2019-11-07 17:03 | Cardiology Consultation ---
Date of Consultation November 07, 2019 Assessment & Plan (1) Chest pain: (2) Elevated troponin: (3) Hypertensive emergency: (4) Chronic heart failure with preserved ejection fraction (HFpEF): (5) CAD (coronary artery disease): (6) H/O heart artery stent: (7) LVH (left ventricular hypertrophy): ASSESSMENT/PLAN: 1. Hypertensive emergency: Blood pressure significantly elevated on presentation and remains elevated. With her severe LVH, likely hypertensive heart disease, and known CAD, her severe hypertension is likely playing a role in her chest pain (presenting symptom). Considered calcium channel fartun but per Dr. Sandoval, she has not tolerated amlodipine in the past due to edema. Will defer blood pressure management overall to nephrology, Dr. Sandoval, who follows her closely as an outpatient as well. He plans on seeing her today as well. We have discussed her care. 2. Elevated troponin: She chronically has low level elevated troponin as far back as 2006. She did not present with acute coronary syndrome. Stable findings on echo. It is very unlikely that she thrombosed her RCA stent as she does not have ST elevations, new wall motion abnormalities, and ongoing symptoms. Likely due to her severe LVH, hypertension, and CKD, with underlying CAD. No indication for urgent cardiac catheterization at this time. 3. CAD s/p PCI (Cx and RCA): Chest pain possibly anginal but probably due to severe LVH in the setting of severe hypertension and underlying CAD. This does not likely represent acute coronary syndrome/unstable plaque/stent thrombosis. No indication for urgent cardiac catheterization. Recommend medical therapy with blood pressure optimization. Continue aspirin 81 mg daily indefinitely. Continue Brilinta for at least 1 year given prior PCI in September of 2019. Continue high-intensity statin therapy. She does not tolerate nitrate therapy. 4. Chronic diastolic CHF: She does not appear to be significantly hypervolemic. She did not present with a CHF exacerbation. Would continue diuretic therapy as this will also hopefully improve her blood pressure. Low-sodium diet. 5. Hypertensive heart disease/severe LVH: Blood pressure control important. 6. Chest pain: Plan as above. Recommend optimization of blood pressure. 7. Disposition: Cardiology will continue to follow. Please call with any other questions or concerns. Plan of care discussed with Dr. Sandoval of Nephrology and Dr. Arroyo of the primary hospitalist service. On discharge, she should follow-up with her primary film painter, Dr. Knott. 60 minutes spent, with greater than 50% of that time spent counseling patient, and coordinating care with other providers. Thank you for allowing me to participate in the care of your patient. Please call for any other questions or concerns. Sincerely, Julian Del Cid M.D. History of Present Illness Reason for Consultation: Chest pain Requesting Physician: Marlene Arroyo MD Attending Physician: Marlene Arroyo MD History of Present Illness Mrs. Mcnulty is a 69-year-old female with a history significant for CAD s/p PCI of circumflex (09/20/2010, 3 x 23 mm Xience) and RCA (10/12/2019 Promus 2.5 x 24 mm), renal artery stenosis s/p left renal artery stent (09/05/2014), hypertension, LVH, type 2 diabetes, dyslipidemia, CKD (Dr. Sandoval). Her primary film painter is Dr. Knott locally and Dr. Perez at [place]. She was recently seen by Dr. Perez at [place] and underwent cardiac catheterization on 10/12/2019 which led to mid RCA PCI with a 2.5 x 24 mm Promus DAVID. She states that she develops CKD following initial cardiac catheterization many years ago at [place] leading to circumflex stent on 09/20/2010. She has been experiencing dyspnea with exertion, which improved for only a few days following PCI of her mid RCA but then once again returned. Over the past 2 weeks her exercise tolerance has significantly decreased with increased dyspnea with exertion. She was admitted due to substernal chest pressure, occurring at rest. It has radiated to her jaw on 2 occasions. Symptoms began 2 days ago. She had an episode here as well. She describes the pain as substernal pressure but also has left-sided sharp pain as well. Symptoms would resolve within a few minutes after speaking to God and calming down. She did not take nitroglycerin as she has not tolerated in the past due to headaches. On presentation, she was significantly hypertensive with a blood pressure of 229/83. Her blood pressure drops significantly in the ER after medication for approximately 2 hours before once again becoming elevated throughout the rest of her hospital stay. Her most recent blood pressure was 192/82. She has also been experiencing right upper quadrant pain. She has been belching and feels full. She admits that she has some lower extremity swelling for which she takes Lasix at home. She is prescribed 40 mg daily with an additional 20 mg as needed but she has been taking 20 mg when she feels necessary, 40 mg for more weight gain than usual, and 60 mg for even more weight gain. She denies palpitations, syncope, near-syncope, or bleeding such as melena, hematochezia, or hematuria. She had with her today her stent cards which were reviewed. She has follow-up already scheduled with Dr. Knott and Dr. Perez, later this month. Review of systems: As above. Review of systems otherwise negative/unremarkable. Family history: Father had CAD. Social history: She denies tobacco or alcohol abuse. She is a . She has 2 sons. Her son and his family live with her, including her grandson A ndrew, who is present at the bedside. Allergies Allergy/AdvReac Type Severity Reaction Status Date / Time Sulfa (Sulfonamide Allergy Intermediate RASH Verified 10/23/19 09:44 Antibiotics) Penicillins Allergy Mild Unknown Verified 11/07/19 00:09 insulin aspart Allergy Hives Verified 11/07/19 00:09 [From Novolog U-100 Insulin aspart] meperidine AdvReac Intermediate hallucinate Verified 10/23/19 09:44 s lisinopril AdvReac Mild COUGHING Verified 10/23/19 09:44 Home Medications Home Medications Medication Instructions Recorded Confirmed Type [id number] oil-D3 [Fish 1 cap PO DAILY 07/12/18 11/06/19 History Oil-Vit D3] pen needle, diabetic 32 gauge x #400 ea 05/29/19 10/23/19 Rx 1/4" insulin lispro 100 unit/mL See Rx Instructions SUBCUT 07/20/19 11/06/19 Rx subcutaneous cartridge .COMPLEX #75 ml rosuvastatin 40 mg tablet 40 mg PO HS 07/29/19 11/06/19 History blood sugar diagnostic #10 ea 08/04/19 10/23/19 History lancets #50 ea 08/04/19 10/23/19 History insulin glargine 100 unit/mL (3 0 units SUBCUT BID ml 10/09/19 11/06/19 History mL) subcutaneous pen furosemide 20 mg tablet 20 mg PO DAILY PRN #90 tab 10/15/19 11/06/19 Rx furosemide 40 mg tablet 40 mg PO DAILY #90 tab 10/15/19 11/06/19 Rx ticagrelor 90 mg tablet 90 mg PO BID 10/23/19 11/06/19 History aspirin [Giselle Chewable Aspirin] 81 mg PO BID 11/06/19 11/06/19 History carvedilol 0 mg PO QAM 11/06/19 11/06/19 History carvedilol 25 mg PO QPM 11/06/19 11/06/19 History Patient History Medical History CAD (coronary artery disease) CHF (congestive heart failure) Chronic heart failure with preserved ejection fraction (HFpEF) CKD (chronic kidney disease) stage 3, GFR 30-59 ml/min Diabetes Diverticulosis Elevated troponin History of stent insertion of renal artery 2014 Hyperlipidemia Hypertension LVH (left ventricular hypertrophy) Lymphedema Renal artery stenosis Severe left ventricular hypertrophy Status post myocardial infarction Surgical History H/O heart artery stent Family History Other Hypertension Social History Preferred Language: Irish Communication Ability: Effective Disability Attorney Required: No Beliefs That Will Affect Care: Alevism Alevism Beliefs: PATIENT STATES SHE NEEDS A PRIVATE ROOM FOR HER "MOSQUE PRAYERS" marital status: / Current Living Situation: Family Current Living Situation Comment: lives with grandson Other Information That Helps Us Care for You: No Feels Safe at Home: Yes Safety Concerns: Feels Safe At This Time Smoking Status: Former smoker Second Hand Exposure: No ; Hx Alcohol Use: No Hx Substance Use: No Physical Exam Physical Exam: Gen.: No acute distress. Alert and oriented. HEENT: Anicteric sclera. Neck: No appreciable JVD. No bruits. Normal carotid upstrokes bilaterally. Cardiac: PMI was nondisplaced. No ventricular heave. Regular but bradycardic in the 50s. Normal S1-S2. 2/6 systolic ejection murmur. No rubs, or gallops. Pulmonary: Clear to auscultation bilaterally without wheezes, rales, or rhonchi. Abdomen: Soft, nondistended, with normoactive bowel sounds. No bruits noted. Right upper quadrant tenderness. Extremities: 2+ radial pulses bilaterally. 2+ posterior tibialis pulses bi laterally. Trace bilateral lower extremity edema. No cyanosis. Psychiatric: Affect appears appropriate. Results & Data Vital Signs (Past 12 Hours) Vital Signs Temp Pulse Pulse Resp BP Pulse Ox 11/07/19 16:07 192/82 H 11/07/19 16:02 36.6 C 51 L 18 178/90 H 98 11/07/19 14:54 56 L 11/07/19 10:55 36.8 C 60 18 157/75 H 95 11/07/19 08:07 55 L 11/07/19 07:22 36.7 C 51 L 18 162/83 H 97 Intake & Output 11/05/19 11/06/19 11/07/19 11/08/19 06:59 06:59 06:59 06:59 Intake Total 775 / 775 240 / 240 Output Total 600 / 600 Balance 175 / 175 240 / 240 Weight 96.8 kg Laboratory Results Laboratory Results - last 24 hr 11/06/19 11/06/19 11/06/19 20:41 20:41 23:30 WBC 10.14 RBC 3.97 L Hgb 10.8 L Hct 33.4 L MCV 84.1 MCH 27.2 MCHC 32.3 RDW Std Deviation 45.4 RDW Coeff of Ekaterina 14.8 H Plt Count 211 MPV 11.3 H Immature Gran % (Auto) 0.3 Neut % (Auto) 68.5 Lymph % (Auto) 17.1 [place] % (Auto) 6.8 Eos % (Auto) 7.0 Baso % (Auto) 0.3 Immature Gran # (Auto) 0.03 H Neut # (Auto) 6.95 H Lymph # (Auto) 1.73 [place] # (Auto) 0.69 H Eos # (Auto) 0.71 H Baso # (Auto) 0.03 Sodium Potassium Chloride Carbon Dioxide Anion Gap BUN Creatinine Est Cr Clr Drug Dosing Est GFR ( Amer) Est GFR (Non-Af Amer) BUN/Creatinine Ratio Glucose POC Glucose 222 H Estimat Average Glucose Hemoglobin A1c Calcium Total Bilirubin AST ALT Alkaline Phosphatase Troponin I 0.131 H* NT-Pro-B Natriuret Pep 5767 H Total Protein Albumin Globulin Albumin/Globulin Ratio Triglycerides Cholesterol LDL Cholesterol, Calc VLDL Cholesterol, Calc HDL Cholesterol Cholesterol/HDL Ratio TSH 1.350 11/07/19 11/07/19 11/07/19 00:29 02:25 02:25 WBC 10.11 RBC 3.62 L Hgb 9.9 L Hct 30.5 L MCV 84.3 MCH 27.3 MCHC 32.5 RDW Std Deviation 45.8 RDW Coeff of Ekaterina 14.7 H Plt Count 181 MPV 10.9 H Immature Gran % (Auto) 0.2 Neut % (Auto) 68.4 Lymph % (Auto) 15.7 [place] % (Auto) 9.7 Eos % (Auto) 5.8 Baso % (Auto) 0.2 Immature Gran # (Auto) 0.02 Neut # (Auto) 6.91 H Lymph # (Auto) 1.59 [place] # (Auto) 0.98 H Eos # (Auto) 0.59 H Baso # (Auto) 0.02 Sodium 140 Potassium 3.2 L Chloride 112 H Carbon Dioxide 24 Anion Gap 4.0 BUN 57 H Creatinine 2.65 H Est Cr Clr Drug Dosing 22.5 Est GFR ( Amer) 20.5 Est GFR (Non-Af Amer) 17.7 BUN/Creatinine Ratio 21.7 H Glucose 136 H POC Glucose 225 H Estimat Average Glucose Hemoglobin A1c Calcium 8.5 Total Bilirubin 0.3 AST 53 H ALT 56 Alkaline Phosphatase 120 H Troponin I 0.139 H* NT-Pro-B Natriuret Pep Total Protein 6.5 Albumin 2.5 L Globulin 4.0 Albumin/Globulin Ratio 0.6 L Triglycerides 194 H Cholesterol 84 LDL Cholesterol, Calc 22 VLDL Cholesterol, Calc 39 HDL Cholesterol 23 Cholesterol/HDL Ratio 4 TSH 11/07/19 11/07/19 11/07/19 02:25 07:41 09:16 WBC RBC Hgb Hct MCV MCH MCHC RDW Std Deviation RDW Coeff of Ekaterina Plt Count MPV Immature Gran % (Auto) Neut % (Auto) Lymph % (Auto) [place] % (Auto) Eos % (Auto) Baso % (Auto) Immature Gran # (Auto) Neut # (Auto) Lymph # (Auto) [place] # (Auto) Eos # (Auto) Baso # (Auto) Sodium Potassium Chloride Carbon Dioxide Anion Gap BUN Creatinine Est Cr Clr Drug Dosing Est GFR ( Amer) Est GFR (Non-Af Amer) BUN/Creatinine Ratio Glucose POC Glucose 116 H Estimat Average Glucose 146 Hemoglobin A1c 6.7 H Calcium Total Bilirubin AST ALT Alkaline Phosphatase Troponin I 0.115 H* NT-Pro-B Natriuret Pep Total Protein Albumin Globulin Albumin/Globulin Ratio Triglycerides Cholesterol LDL Cholesterol, Calc VLDL Cholesterol, Calc HDL Cholesterol Cholesterol/HDL Ratio TSH 11/07/19 11/07/19 11/07/19 11:38 14:51 16:20 WBC RBC Hgb Hct MCV MCH MCHC RDW Std Deviation RDW Coeff of Ekaterina Plt Count MPV Immature Gran % (Auto) Neut % (Auto) Lymph % (Auto) [place] % (Auto) Eos % (Auto) Baso % (Auto) Immature Gran # (Auto) Neut # (Auto) Lymph # (Auto) [place] # (Auto) Eos # (Auto) Baso # (Auto) Sodium Potassium Chloride Carbon Dioxide Anion Gap BUN Creatinine Est Cr Clr Drug Dosing Est GFR ( Amer) Est GFR (Non-Af Amer) BUN/Creatinine Ratio Glucose POC Glucose 259 H 126 H Estimat Average Glucose Hemoglobin A1c Calcium Total Bilirubin AST ALT Alkaline Phosphatase Troponin I 0.102 H* NT-Pro-B Natriuret Pep Total Protein Albumin Globulin Albumin/Globulin Ratio Triglycerides Cholesterol LDL Cholesterol, Calc VLDL Cholesterol, Calc HDL Cholesterol Cholesterol/HDL Ratio TSH Diagnostic Findings ECHO personally reviewed. Echo 11/07/2019: Normal LV size and systolic function. EF 65-70%. Severe con centric LVH. Mild aortic stenosis. Mild MR. RVSP 26. Telemetry personally reviewed: Sinus rhythm. No arrhythmia. ECGs personally reviewed: ECG 11/06/2019 at 3:46 p.m.: Sinus bradycardia 48 bpm. LVH with repolarization abnormality. ECG 11/06/2019 at 1:13 p.m.: Sinus bradycardia 52 bpm. LVH with repolarization abnormality ECG 11/07/2019 at 4:22 a.m.: Sinus bradycardia 52 bpm. LVH with repolarization abnormality Chest x-ray 11/06/2019: Mild cardiomegaly. No acute process within the chest per Radiology. Medications Administered Current Inpatient Medications Acetaminophen (Tylenol) 650 mg PO Q4H PRN PRN Reason: Pain or Fever Stop: 12/06/19 20:24 Al Hydrox/Mg Hydrox/Simethicone (Maalox) 15 ml PO Q4H PRN PRN Reason: Dyspepsia Stop: 12/06/19 20:24 Aspirin (Ecotrin Ectab) 81 mg PO BID [facility] Stop: 12/06/19 20:59 Last Admin: 11/07/19 08:49 Dose: 81 mg Documented by: Carvedilol (Coreg) 25 mg PO BID [facility] Stop: 12/06/19 20:59 Last Admin: 11/07/19 08:49 Dose: 6.25 mg Documented by: Dextrose (Dextrose 50%) 25 - 50 ml IV UD PRN; Protocol PRN Reason: Hypoglycemia Protocol Stop: 12/06/19 20:24 Fish Oil ([place]-3 (Purified Fish Oil)) 1 gm PO BID [facility] Stop: 12/07/19 20:59 Glucagon (Glucagen) 1 mg SQ UD PRN; Protocol PRN Reason: Hypoglycemia Protocol Stop: 12/06/19 20:24 Glucose (Dex4 Glucose) 4 - 8 tabs PO UD PRN; Protocol PRN Reason: Hypoglycemia Protocol Stop: 12/06/19 20:24 Glucose (Glucose 40%) 15 - 30 gm PO UD PRN; Protocol PRN Reason: Hypoglycemia Protocol Stop: 12/06/19 20:24 Hydralazine HCl (Apresoline) 10 mg PO QID PRN PRN Reason: bp greater than 160/90 Stop: 12/07/19 09:14 Last Admin: 11/07/19 16:07 Dose: 10 mg Documented by: Furosemide 20 mg/ Syringe 2 mls @ 4 mls/min IV [id number] [facility] Stop: 12/07/19 08:59 Last Admin: 11/07/19 17:14 Dose: 4 mls/min Documented by: Insulin Glargine (Lantus Solostar Pen) 0 units SC HS [facility]; Protocol Stop: 12/07/19 20:59 Insulin Human Lispro (Humalog) 0 units SC ACHS [facility]; Protocol Stop: 12/07/19 07:29 Last Admin: 11/07/19 13:13 Dose: 5 units Documented by: Magnesium Hydroxide (Milk Of Magnesia) 30 ml PO Q12H PRN PRN Reason: Constipation Stop: 12/06/19 20:24 Miscellaneous (Carbohydrates For Hypoglycemia) 15 - 30 gm PO UD PRN PRN Reason: Hypoglycemia Protocol Stop: 12/06/19 20:24 Miscellaneous Information (Consult Glycemic Management Pharmacy) 1 ea N/A UD PRN; Protocol PRN Reason: Consult Stop: 12/06/19 20:52 Nitroglycerin (Nitrostat) 0.4 mg SL PRN PRN PRN Reason: Angina Stop: 12/06/19 22:48 Last Admin: 11/07/19 04:01 Dose: 0.4 mg Documented by: Oxycodone/Acetaminophen (Percocet 5mg/325mg) 1 tab PO Q4H PRN PRN Reason: Pain Stop: 11/20/19 20:24 Polyethylene Glycol (Miralax Powder Packet) 17 gm PO DAILY PRN PRN Reason: Constipation Stop: 12/06/19 20:24 Rosuvastatin Calcium (Crestor) 40 mg PO HS [facility] Stop: 12/06/19 20:59 Last Admin: 11/06/19 23:33 Dose: 40 mg Documented by: Ticagrelor (Brilinta) 90 mg PO BID [facility] Stop: 12/06/19 20:59 Last Admin: 11/07/19 08:49 Dose: 90 mg Documented by: PG Care Time/CCT Total # of Minutes Spent Total Time Spent with Patient: Total time spent is greater than 50% in coordination of care (as documented) at patient's floor/unit and/or counseling patient: (1) Chest pain Chest pain type: precordial pain Qualified Code(s): R07.2 - Precordial pain (2) CAD (coronary artery disease) Coronary Disease-Associated Artery/Lesion type: [place] artery [place] vs. transplanted heart: [place] heart Associated angina: without angina Qualified Code(s): I25.10 - Atherosclerotic heart disease of [place] coronary artery without angina pectoris
--- NOTE | 2019-11-07 17:09 | Nephrology Consultation ---
Date of Consultation November 07, 2019 Assessment & Plan (1) Acute on chronic renal failure: In the setting of accelerated hypertension. Will continue medications as Rx'd and repeat a metabolic profile tomorrow AM. 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 I discussed this in detail today with the patient and her son (Jose). (2) CKD (chronic kidney disease) stage 3, GFR 30-59 ml/min: Ayana has CKD III-IV at baseline. Serum creatinine at baseline is approxim ately 2.2 mg/dL. 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 She follows routinely with me in the CKD clinic. She has had multiple episodes of TIFFANY. In the past, these have often been associated with accelerated hypertension and volume overload. (3) Renal artery stenosis: Follow up evaluation deferred at this time pending additional monitoring and medical management of TIFFANY and elevated creatinine. (4) CAD (coronary artery disease): Plan of care reviewed with Dr. Del Cid. Benefits of maximum tolerated dose of carvedilol reviewed with Aynaa. We are unfortunately limited by bradycardia. Ayana did not tolerate amlodipine well. She had a reasonable response to hydralazine this afternoon. She had responded well to diuretics and hydralazine during her prior admission to [facility]. Risks of increasing angina recognized. Close monitoring will be provided. (5) Chronic heart failure with preserved ejection fraction (HFpEF): Ultimately, will plan to restart losartan but deferred at this time pending improvement in kidney function. Spironolactone likewise deferred. (6) Hypertensive emergency: I have ordered an additional 50 mg PO hydralazine at this time. Will try to introduce scheduled hydralazine as tolerated. Ayana also has PRN clonidine ordered as needed. Ultimately, if we see improvement in renal function, I would like to restart an ARB or possibly spironolactone. We seem to have reached maximum tolerable dose of her beta-fartun. I would also like to continue furosemide to encourage a slightly negative fluid balance. History of Present Illness Reason for Consultation: Acute on chronic renal insufficiency, accelerated hypertension Requesting Physician: Marlene Arroyo MD Attending Physician: Marlene Arroyo MD History of Present Illness Ayana Mcnulty is a 69-year-old female with a significant history of chronic kidney disease, vascular disease, and hypertension. I recently saw Ayana for follow up in the outpatient nephrology clinic. At that time, she was doing reasonably well following recent PCI. Ayana was admitted to [facility] in [place] in early September with chest pain. She was admitted from October 12-. She underwent catheterization with PCI. A reported DAVID was placed to the RCA. She has unfortunately continued to struggle with persistent fatigue and activity limiting dyspnea since the procedure. In September, her daughter expressed concerns that Ayana was spending too much of her time in her room and in bed which is unusual. She was placed on Brilinta and aspirin following the intervention. Dr. Samir Perez performed the procedure and had encouraged Ayana to increase carvedilol to 25 mg twice daily. Ayana had been only taking the medication once daily prior. Taking the medication twice daily in the past had b een associated with what Ayana describes as a "sense of melancholy." She has been taking carvedilol 6.25 mg QAM and 25 mg QPM at home because this is what she has tolerated better. She has been taking furosemide 40 mg daily with an additional 20 mg as needed for weight gain or fluid retention. She states that she has not required more than 40 mg daily because she has continued to lose weight since her PCI. She has had at least a 5 lbs weight loss since early September. She denies any fluid retention. Creatinine javi to 3 mg/dL following her PCI but had improved to baseline 2.1 mg/dL at the end of September. In August, she had been experiencing fluctuations of blood pressure including some accelerated readings typically occur in the evenings. She was using carvedilol once per day. In the past, Ayana had been on amlodipine but was not able to tolerate the medication due to LE edema. She is not able to tolerate BEVERLEY inhibitors due to cough. Losartan was well tolerated previously but has been held due to history of TIFFANY. She does not tolerate nitroglycerin well due to headaches. She has had clonidine in the past and responded well to a dose in the ER yesterday. Unfortunately, she has had dry mouth and somnolence associated with the medication. She was also on spironolactone in the past but this was discontinued during a prior admission in the setting of hyperkalemia and TIFFANY. Renal US was reviewed in early July. 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 Ayana was admitted to [facility] from July 12-2017 with accelerated hypertension and volume overload. She presented with a 10 lbs weight gain, lower extremity edema and dyspnea. Accelerated BP readings improved with IV hydralazine and diuretics. Ayana was admitted to [facility] from 11/29/16-12/05/16 with hypertensive emergency and SOB. She developed TIFFANY consistent with prerenal azotemia and ATN. This has resolved. She had recurrent TIFFANY and hyperkalemia as an outpatient in March. Ayana follows with vascular surgery regarding YANDEL and PAD. She follows with Dr. Knott in the cardiology clinic locally. Cardiology consultation provided today by Dr. Del Cid. Ayana is a 69-year-old female with long-standing hypertension, obesity, diabetes mellitus type 2 without retinopathy, coronary artery disease, peripheral arterial disease, renal artery stenosis, and advanced CKD. Allergies Allergy/AdvReac Type Severity Reaction Status Date / Time Sulfa (Sulfonamide Allergy Intermediate RASH Verified 10/23/19 09:44 Antibiotics) Penicillins Allergy Mild Unknown Verified 11/07/19 00:09 insulin aspart Allergy Hives Verified 11/07/19 00:09 [From Novolog U-100 Insulin aspart] meperidine AdvReac Intermediate hallucinate Verified 10/23/19 09:44 s lisinopril AdvReac Mild COUGHING Verified 10/23/19 09:44 Home Medications Home Medications Medication Instructions Recorded Confirmed Type [id number] oil-D3 [Fish 1 cap PO DAILY 07/12/18 11/06/19 History Oil-Vit D3] pen needle, diabetic 32 gauge x #400 ea 05/29/19 10/23/19 Rx 1/4" insulin lispro 100 unit/mL See Rx Instructions SUBCUT 07/20/19 11/06/19 Rx subcutaneous cartridge .COMPLEX #75 ml rosuvastatin 40 mg tablet 40 mg PO HS 07/29/19 11/06/19 History blood sugar diagnostic #10 ea 08/04/19 10/23/19 History lancets #50 ea 08/04/19 10/23/19 History insulin glargine 100 unit/mL (3 0 units SUBCUT BID ml 10/09/19 11/06/19 History mL) subcutaneous pen furosemide 20 mg tablet 20 mg PO DAILY PRN #90 tab 10/15/19 11/06/19 Rx furosemide 40 mg tablet 40 mg PO DAILY #90 tab 10/15/19 11/06/19 Rx ticagrelor 90 mg tablet 90 mg PO BID 10/23/19 11/06/19 History aspirin [Giselle Chewable Aspirin] 81 mg PO BID 11/06/19 11/06/19 History carvedilol 0 mg PO QAM 11/06/19 11/06/19 History carvedilol 25 mg PO QPM 11/06/19 11/06/19 History Patient History Medical History CAD (coronary artery disease) CHF (congestive heart failure) Chronic heart failure with preserved ejection fraction (HFpEF) CKD (chronic kidney disease) stage 3, GFR 30-59 ml/min Diabetes Diverticulosis Elevated troponin History of stent insertion of renal artery 2013 Hyperlipidemia Hypertension Lymphedema Renal artery stenosis Severe left ventricular hypertrophy Status post myocardial infarction Surgical History H/O heart artery stent 2009 Family History Other Hypertension Social History Preferred Language: Portuguese Communication Ability: Effective Horticultural Technical Officer Required: No Beliefs That Will Affect Care: Yarsanism Yarsanism Beliefs: PATIENT STATES SHE NEEDS A PRIVATE ROOM FOR HER "BUDDHIST PRAYERS" marital status: / Current Living Situation: Family Current Living Situation Comment: lives with grandson Other Information That Helps Us Care for You: No Feels Safe at Home: Yes Safety Concerns: Feels Safe At This Time Smoking Status: Former smoker Second Hand Exposure: No ; Hx Alcohol Use: No Hx Substance Use: No Review of Systems Constitutional: + weight gain; no weight loss Eyes: no problem reported Ear, Nose, Mouth, Throat: no problem reported Respiratory: + dyspnea on exertion; no cough, no chest congestion and no wheezing Cardiovascular: + chest pain and + dyspnea on exertion; no orthopnea, no lightheadedness and no edema Gastrointestinal: + abdominal pain; no nausea, no change in bowel habits and n o diarrhea/loose stools Genitourinary: no problem reported Musculoskeletal: no problem reported Integumentary: no problem reported Neurologic: no dizziness, no headache(s) and no problem reported Psychiatric: no problem reported Endocrine: no problem reported Physical Exam Constitutional: well developed and + morbidly obese; not edematous Eyes: + anicteric sclerae; no conjunctival abnormality ENMT: Mouth: no oral mucosal abnormality and oral mucous membranes not dry Neck: normal visual inspection, trachea midline and + thick neck Respiratory: normal respiratory effort Auscultation: lungs clear to auscultation bilaterally and + diminished lung sounds Cardiovascular: Rate/Rhythm: regular rate Heart Sounds: normal S1 and normal S2 Vessels: + JVD Extremities: + edema Gastrointestinal (Abdomen): Percussion/Palpation: abdomen soft; abdomen nontender Musculoskeletal: Extremities: no cyanosis and no clubbing Skin: normal turgor; no lesions Neurologic: Motor/Sensory: no tremor and no asterixis Psychiatric: Orientation: alert and oriented x 3 Results & Data Vital Signs (Past 12 Hours) Vital Signs Temp Pulse Pulse Resp BP Pulse Ox 11/07/19 16:07 192/82 H 11/07/19 16:02 36.6 C 51 L 18 178/90 H 98 11/07/19 14:54 56 L 11/07/19 10:55 36.8 C 60 18 157/75 H 95 11/07/19 08:07 55 L 11/07/19 07:22 36.7 C 51 L 18 162/83 H 97 Laboratory Results Laboratory Results - last 24 hr 11/06/19 11/06/19 11/06/19 20:41 20:41 23:30 WBC 10.14 RBC 3.97 L Hgb 10.8 L Hct 33.4 L MCV 84.1 MCH 27.2 MCHC 32.3 RDW Std Deviation 45.4 RDW Coeff of Ekaterina 14.8 H Plt Count 211 MPV 11.3 H Immature Gran % (Auto) 0.3 Neut % (Auto) 68.5 Lymph % (Auto) 17.1 [place] % (Auto) 6.8 Eos % (Auto) 7.0 Baso % (Auto) 0.3 Immature Gran # (Auto) 0.03 H Neut # (Auto) 6.95 H Lymph # (Auto) 1.73 [place] # (Auto) 0.69 H Eos # (Auto) 0.71 H Baso # (Auto) 0.03 Sodium Potassium Chloride Carbon Dioxide Anion Gap BUN Creatinine Est Cr Clr Drug Dosing Est GFR ( Amer) Est GFR (Non-Af Amer) BUN/Creatinine Ratio Glucose POC Glucose 222 H Estimat Average Glucose Hemoglobin A1c Calcium Total Bilirubin AST ALT Alkaline Phosphatase Troponin I 0.131 H* NT-Pro-B Natriuret Pep 5767 H Total Protein Albumin Globulin Albumin/Globulin Ratio Triglycerides Cholesterol LDL Cholesterol, Calc VLDL Cholesterol, Calc HDL Cholesterol Cholesterol/HDL Ratio TSH 1.350 11/07/19 11/07/19 11/07/19 00:29 02:25 02:25 WBC 10.11 RBC 3.62 L Hgb 9.9 L Hct 30.5 L MCV 84.3 MCH 27.3 MCHC 32.5 RDW Std Deviation 45.8 RDW Coeff of Ekaterina 14.7 H Plt Count 181 MPV 10.9 H Immature Gran % (Auto) 0.2 Neut % (Auto) 68.4 Lymph % (Auto) 15.7 [place] % (Auto) 9.7 Eos % (Auto) 5.8 Baso % (Auto) 0.2 Immature Gran # (Auto) 0.02 Neut # (Auto) 6.91 H Lymph # (Auto) 1.59 [place] # (Auto) 0.98 H Eos # (Auto) 0.59 H Baso # (Auto) 0.02 Sodium 140 Potassium 3.2 L Chloride 112 H Carbon Dioxide 24 Anion Gap 4.0 BUN 57 H Creatinine 2.65 H Est Cr Clr Drug Dosing 22.5 Est GFR ( Amer) 20.5 Est GFR (Non-Af Amer) 17.7 BUN/Creatinine Ratio 21.7 H Glucose 136 H POC Glucose 225 H Estimat Average Glucose Hemoglobin A1c Calcium 8.5 Total Bilirubin 0.3 AST 53 H ALT 56 Alkaline Phosphatase 120 H Troponin I 0.139 H* NT-Pro-B Natriuret Pep Total Protein 6.5 Albumin 2.5 L Globulin 4.0 Albumin/Globulin Ratio 0.6 L Triglycerides 194 H Cholesterol 84 LDL Cholesterol, Calc 22 VLDL Cholesterol, Calc 39 HDL Cholesterol 23 Cholesterol/HDL Ratio 4 TSH 11/07/19 11/07/19 11/07/19 02:25 07:41 09:16 WBC RBC Hgb Hct MCV MCH MCHC RDW Std Deviation RDW Coeff of Ekaterina Plt Count MPV Immature Gran % (Auto) Neut % (Auto) Lymph % (Auto) [place] % (Auto) Eos % (Auto) Baso % (Auto) Immature Gran # (Auto) Neut # (Auto) Lymph # (Auto) [place] # (Auto) Eos # (Auto) Baso # (Auto) Sodium Potassium Chloride Carbon Dioxide Anion Gap BUN Creatinine Est Cr Clr Drug Dosing Est GFR ( Amer) Est GFR (Non-Af Amer) BUN/Creatinine Ratio Glucose POC Glucose 116 H Estimat Average Glucose 146 Hemoglobin A1c 6.7 H Calcium Total Bilirubin AST ALT Alkaline Phosphatase Troponin I 0.115 H* NT-Pro-B Natriuret Pep Total Protein Albumin Globulin Albumin/Globulin Ratio Triglycerides Cholesterol LDL Cholesterol, Calc VLDL Cholesterol, Calc HDL Cholesterol Cholesterol/HDL Ratio TSH 11/07/19 11/07/19 11/07/19 11:38 14:51 16:20 WBC RBC Hgb Hct MCV MCH MCHC RDW Std Deviation RDW Coeff of Ekaterina Plt Count MPV Immature Gran % (Auto) Neut % (Auto) Lymph % (Auto) [place] % (Auto) Eos % (Auto) Baso % (Auto) Immature Gran # (Auto) Neut # (Auto) Lymph # (Auto) [place] # (Auto) Eos # (Auto) Baso # (Auto) Sodium Potassium Chloride Carbon Dioxide Anion Gap BUN Creatinine Est Cr Clr Drug Dosing Est GFR ( Amer) Est GFR (Non-Af Amer) BUN/Creatinine Ratio Glucose POC Glucose 259 H 126 H Estimat Average Glucose Hemoglobin A1c Calcium Total Bilirubin AST ALT Alkaline Phosphatase Troponin I 0.102 H* NT-Pro-B Natriuret Pep Total Protein Albumin Globulin Albumin/Globulin Ratio Triglycerides Cholesterol LDL Cholesterol, Calc VLDL Cholesterol, Calc HDL Cholesterol Cholesterol/HDL Ratio TSH PG Care Time/CCT Total # of Minutes Spent Total Time Spent with Patient: Total time spent is greater than 50% in coordination of care (as documented) at patient's floor/unit and/or counseling patient: (1) CAD (coronary artery disease) Coronary Disease-Associated Artery/Lesion type: [place] artery [place] vs. transplanted heart: [place] heart Associated angina: without angina Qualified Code(s): I25.10 - Atherosclerotic heart disease of [place] coronary artery without angina pectoris
[2019-11-07] MEDS: HydrALAZINE TAB 50 MG TAB PO SCH (17:55)
[2019-11-07] MEDS ORDERED: HydrALAZINE TAB 50 MG TAB PO SCH (19:00)
[2019-11-07] MEDS ORDERED: NIFEdipine EXTENDED REL 30 MG TABCR PO STA (20:48)
[2019-11-07] MEDS ORDERED: INSULIN GLARGINE SOLOSTAR 100 UNITS/ML 3 ML PEN SC SCH (21:00)
--- NOTE | 2019-11-07 21:24 | Electrocardiogram Report ---
Test Reason : Blood Pressure : / mmHG Vent. Rate : 048 BPM Atrial Rate : 048 BPM P-R Int : 164 ms QRS Dur : 096 ms QT Int : 534 ms P-R-T Axes : 047 -12 165 degrees QTc Int : 477 ms Sinus bradycardia Left ventricular hypertrophy with repolarization abnormality Abnormal ECG When compared with ECG of 06-NOV-2019 13:13, ST no longer depressed in Anterior leads T wave inversion no longer evident in Anterior leads Confirmed by Kayode Del Cid ([id number]) on 11/07/2019 9:23:51 PM Referred By: REFERRED SELF Confirmed By:Kayode Del Cid
[2019-11-07] MEDS: ROSUVASTATIN CALCIUM 20 MG TAB PO SCH (21:31)
[2019-11-07] MEDS: OMEGA-3 (PURIFIED FISH OIL) 1 GM CAP PO SCH (21:31)
--- NOTE | 2019-11-07 21:56 | Electrocardiogram Report ---
Test Reason : Blood Pressure : / mmHG Vent. Rate : 052 BPM Atrial Rate : 052 BPM P-R Int : 168 ms QRS Dur : 098 ms QT Int : 538 ms P-R-T Axes : 066 -02 180 degrees QTc Int : 500 ms Sinus bradycardia Left ventricular hypertrophy with repolarization abnormality Prolonged QT Abnormal ECG When compared with ECG of 06-NOV-2019 15:46, No significant change was found Confirmed by Kayode Del Cid ([id number]) on 11/07/2019 9:56:14 PM Referred By: REFERRED SELF Confirmed By:Kayode Del Cid
[2019-11-08] MEDS: ACETAMINOPHEN 325 MG TAB PO PRN (02:09)
[2019-11-08 06:31] LABS: Basophils # (auto) 0.03 K/uL (0-0.2); Basophils % (auto) 0.3 %; Eosinophils # (auto) 0.64 K/uL (0-0.5); Eosinophils % (auto) 5.9 %; Hematocrit (blood only) 32.4 % (37-47); Hemoglobin 10.4 g/dL (12.0-16.0); Immature Granulocytes # (auto) 0.02 K/uL (0.00-0.02); Immature Granulocytes % (auto) 0.2 %; Lymphocytes # (auto) 1.83 K/uL (1.2-3.4); Lymphocytes % (auto) 16.8 %; Mean Corpuscular Hgb Conc 32.1 g/dL (32-36); Mean Corpuscular Volume 84.2 fL (80-100); Mean Platelet Volume 11.7 fL (7.4-10.4); Monocytes # (auto) 0.74 K/uL (0.11-0.59); Monocytes % (auto) 6.8 %; Neutrophils # (auto) 7.61 K/uL (1.4-6.5); Platelet Count 209 K/uL (130-400); RDW Coefficient of Variation 14.8 % (11.5-14.5); RDW Standard Deviation 45.3 fL (36.4-46.3); Red Blood Count 3.85 M/uL (4.2-5.4); White Blood Count 10.87 K/uL (4.8-10.8)
[2019-11-08 07:12] LABS: Albumin Level 2.6 gm/dl (3.4-5.0); BUN Creatinine Ratio 22.3 (10-20); Calcium 8.8 mg/dl (8.5-10.1); Creatinine Clr Calc Pharmacy 20.4 ml/min; Est GFR (African American) 18.5; Potassium 3.6 mmol/L (3.5-5.1)
[2019-11-08 07:15] LABS: Albumin Globulin Ratio 0.6 (0.9-2); Bilirubin,Total 0.4 mg/dl (0.2-1); Globulin 4.2 gm/dl (2.5-4.0); Total Protein 6.8 gm/dl (6.4-8.2)
[2019-11-08] MEDS: INSULIN HUMAN LISPRO (humaLOG) 100 UNITS/ML VIAL SC SCH ×4 (08:11→20:37)
[2019-11-08] MEDS: FUROSEMIDE 20 MG in SYRINGE 0 ML IV SCH (08:14)
[2019-11-08] MEDS: OMEGA-3 (PURIFIED FISH OIL) 1 GM CAP PO SCH ×2 (08:15→20:33)
[2019-11-08] MEDS: ASPIRIN 81 MG ECTAB PO SCH ×2 (08:15→20:32)
[2019-11-08] MEDS: carvediloL 25 MG TAB PO SCH (08:15)
[2019-11-08] MEDS: TICAGRELOR 90 MG TAB PO SCH ×2 (08:15→20:28)
[2019-11-08] MEDS: HydrALAZINE TAB 50 MG TAB PO SCH (08:16)
--- NOTE | 2019-11-08 10:18 | Pharmacy Report ---
Pharmacy Glycemic Short Note 2 - Date of Service November 08, 2019 - Glycemic Short BSG Results (Last 24 hours): 11/07/19 11/07/19 11/07/19 11:38 16:20 20:19 Glucose POC Glucose 259 H 126 H 168 H 11/08/19 11/08/19 05:58 07:19 Glucose 130 H POC Glucose 152 H OUTPATIENT ANTIDIABETIC REGIMEN: * Humalog 10 units with breakfast, 20 units with lunch and dinner * Lantus BID per sliding scale - per patient, she does not always take this * A1c = 6.7 % 11/07/19 The patient is currently receiving: * Basal insulin: Lantus 20 units qhs (with 1/2 dose for BSG < 140) * Correctional Insulin: Novolog Correction per scale ACHS Goal Range: Low 110 mg/dL - High 140 mg/dL Correction Factor: 25 mg/dL/unit * Prandial insulin: Per carb ratio of 1 unit per 8 grams CHO consumed - Assessment & Plan ASSESSMENT: 11/08 * BSGs stable over the past 24 hours * Patient received 20 units of basal and 13 units of prandial insulin * Clinical dietitian spoke with patient re: carb coverage with meals. Patient amenable to T1DM but did not want carb restriction with T2DM diet. Outpatient Humalog doses use CF 20, CR 7, so this is comparable to current inpatient dosing. She typically does not use correctional at HS but tolerated this last night so will continue for now. 11/07 * 69 y/o F admitted for CP, hypertensive emergency and abdominal pain. PMH notable for T2DM, HFpEF, CKD. A1c well controlled; however, may not be reliable in CKD. 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 BSGs were in range in the ED but increased to the 200s last night. She received 20 units of Lantus last night with fasting BSG of 116 mg/dL this AM. SCr remains elevated from baseline. * Dietitian notified me that patient refused carb counting and wanted a regular diet. Dietitian was going to speak with patient to obtain more information. Patient will require carb counting for appropriate insulin dosing. PLAN FOR INPATIENT GLYCEMIC CONTROL: * Basal insulin - change to set dose * Lantus 20 units SQ qHS * Bolus insulin * NovoLog per scale ACHS or Q6hrs while NPO * Goal Range: Low 110 mg/dL - High 140 mg/dL * Correction Factor: 25 mg/dL/unit * Nutritional / Prandial insulin per carb ratio of 1 unit per 8 grams CHO consumed PLAN FOR DISCHARGE: * A1c = 6.7% on 11/07/19 * Goal A1c < 7% based on age/comorbidities * Recommend to resume outpatient regimen on discharge
--- NOTE | 2019-11-08 11:02 | Cardiology Progress Note ---
Date of Service November 08, 2019 Assessment & Plan (1) Chest pain: (2) Elevated troponin: (3) Hypertensive emergency: (4) Chronic heart failure with preserved ejection fraction (HFpEF): (5) CAD (coronary artery disease): (6) H/O heart artery stent: (7) LVH (left ventricular hypertrophy): ASSESSMENT/PLAN: 1. Hypertensive emergency: Blood pressure improved this morning however she did receive a dose of Procardia overnight, hydralazine, and 25 mg of carvedilol in addition to her diuretic. Carvedilol was held this morning by nursing staff for heart rate of 59 bpm. Because she was not taking 25 mg twice daily at home, reportedly due to intolerance, will reduce carvedilol to 12.5 mg twice daily with first dose now. With her severe LVH, likely hypertensive heart disease, and known CAD, her severe hypertension is likely playing a role in her chest pain (presenting symptom). If she is willing to try low-dose calcium channel fartun as an outpatient such as nifedipine, it may offer antianginal benefit. It did improve her blood pressure here significantly. Nephrology is managing her antihypertensive agents at this time. 2. Elevated troponin: She chronically has low level elevated troponin as far back as 2006. She did not present with acute coronary syndrome. Stable findings on echo. It is very unlikely that she thrombosed her RCA stent as she does not have ST elevations, new wall motion abnormalities, and ongoing symptoms. Likely due to her severe LVH, hypertension, and CKD, with underlying CAD. No indication for urgent cardiac catheterization at this time. Continue to optimize her blood pressure. 3. CAD s/p PCI (Cx and RCA): Chest pain possibly anginal but probably due to severe LVH in the setting of severe hypertension and underlying CAD. This does not likely represent acute coronary syndrome/unstable plaque/stent thrombosis. No indication for urgent cardiac catheterization. Continue to optimize hypertensive regimen. Continue aspirin 81 mg daily indefinitely. Continue Brilinta for at least 1 year given prior PCI in September of 2019. Continue high- intensity statin therapy and beta-fartun therapy. She does not tolerate nitrate therapy. 4. Chronic diastolic CHF: She does not appear to be significantly hypervolemic. She did not present with a CHF exacerbation. Can continue home diuretic therapy. Low-sodium diet. 5. Hypertensive heart disease/severe LVH: Optimize blood pressure control. 6. Chest pain: Plan as above. Recommend optimization of blood pressure. 7. Disposition: Cardiology will continue to follow. Please call with any other questions or concerns. Plan of care discussed with Dr. Sandoval of Nephrology and Dr. Arroyo of the primary hospitalist service. When discharged, she should follow-up with her primary physical therapy coordinator, Dr. Knott. Subjective She feels better today. She denies any further chest discomfort. She denies shortness of breath or dyspnea with exertion. For hypertension last evening, she was given a dose of procardia and an additional hydralazine 10 mg p.o.. She states that she has not tolerated Procardia or amlodipine as an outpatient due to swelling and she does not wish to be on these medications. She also admitted to Dr. Sandoval of Nephrology that she has not been taking carvedilol 25 mg twice daily, but rather 6.25 mg in the morning and 25 mg in the evening. She informed him that she did not tolerate 25 mg twice daily of the carvedilol. She did not receive this morning's dose of carvedilol due to mild bradycardia in the upper 50s. She was seen earlier this morning. Her blood pressure this morning was normal however she received p.r.n. doses of medications last evening. Dr. Sandoval has Recommended regular dosing of hydralazine, while continuing diuretic and beta- fartun. She denies syncope. She believes that her lower extremity edema has improved. Right upper quadrant pain has resolved. She was alone in her hospital room. Review of systems: As above. Physical Exam Physical Exam: Gen.: No acute distress. Alert and oriented. HEENT: Anicteric sclera. Neck: No appreciable JVD. Cardiac: Regular. Normal S1-S2. 2/6 systolic ejection murmur. No rubs, or gallops. Pulmonary: Clear to auscultation bilaterally without wheezes, rales, or rhonchi. Abdomen: Soft, nondistended, with normoactive bowel sounds. No bruits noted. Right upper quadrant tenderness has improved but is still mildly present. Extremities: Trace bilateral lower extremity edema. No cyanosis. Psychiatric: Affect appears appropriate. Results & Data Vital Signs (Past 12 Hours) Vital Signs Temp Pulse Pulse Resp BP Pulse Ox 11/08/19 07:00 36.8 C 59 L 18 124/70 97 11/08/19 02:25 36.8 C 57 L 16 145/64 H 96 11/08/19 00:05 59 L 11/07/19 23:07 36.8 C 64 18 174/78 H 96 11/07/19 23:03 37.0 C 60 20 185/74 H 97 Intake & Output 11/06/19 11/07/19 11/08/19 11/09/19 06:59 06:59 06:59 06:59 Intake Total 775 / 775 660 / 660 Output Total 600 / 600 Balance 175 / 175 660 / 660 Weight 96.8 kg 96.3 kg Laboratory Results Laboratory Results - last 24 hr 11/07/19 11/07/19 11/07/19 11:38 14:51 16:20 WBC RBC Hgb Hct MCV MCH MCHC RDW Std Deviation RDW Coeff of Ekaterina Plt Count MPV Immature Gran % (Auto) Neut % (Auto) Lymph % (Auto) [place] % (Auto) Eos % (Auto) Baso % (Auto) Immature Gran # (Auto) Neut # (Auto) Lymph # (Auto) [place] # (Auto) Eos # (Auto) Baso # (Auto) Sodium Potassium Chloride Carbon Dioxide Anion Gap BUN Creatinine Est Cr Clr Drug Dosing Est GFR ( Amer) Est GFR (Non-Af Amer) BUN/Creatinine Ratio Glucose POC Glucose 259 H 126 H Calcium Total Bilirubin AST ALT Alkaline Phosphatase Troponin I 0.102 H* Total Protein Albumin Globulin Albumin/Globulin Ratio 11/07/19 11/07/19 11/08/19 20:15 20:19 05:58 WBC 10.87 H RBC 3.85 L Hgb 10.4 L Hct 32.4 L MCV 84.2 MCH 27.0 MCHC 32.1 RDW Std Deviation 45.3 RDW Coeff of Ekaterina 14.8 H Plt Count 209 MPV 11.7 H Immature Gran % (Auto) 0.2 Neut % (Auto) 70.0 Lymph % (Auto) 16.8 [place] % (Auto) 6.8 Eos % (Auto) 5.9 Baso % (Auto) 0.3 Immature Gran # (Auto) 0.02 Neut # (Auto) 7.61 H Lymph # (Auto) 1.83 [place] # (Auto) 0.74 H Eos # (Auto) 0.64 H Baso # (Auto) 0.03 Sodium Potassium Chloride Carbon Dioxide Anion Gap BUN Creatinine Est Cr Clr Drug Dosing Est GFR ( Amer) Est GFR (Non-Af Amer) BUN/Creatinine Ratio Glucose POC Glucose 168 H Calcium Total Bilirubin AST ALT Alkaline Phosphatase Troponin I 0.116 H* Total Protein Albumin Globulin Albumin/Globulin Ratio 11/08/19 11/08/19 05:58 07:19 WBC RBC Hgb Hct MCV MCH MCHC RDW Std Deviation RDW Coeff of Ekaterina Plt Count MPV Immature Gran % (Auto) Neut % (Auto) Lymph % (Auto) [place] % (Auto) Eos % (Auto) Baso % (Auto) Immature Gran # (Auto) Neut # (Auto) Lymph # (Auto) [place] # (Auto) Eos # (Auto) Baso # (Auto) Sodium 142 Potassium 3.6 Chloride 111 H Carbon Dioxide 23 Anion Gap 8.0 BUN 64 H Creatinine 2.88 H Est Cr Clr Drug Dosing 20.4 Est GFR ( Amer) 18.5 Est GFR (Non-Af Amer) 16.0 BUN/Creatinine Ratio 22.3 H Glucose 130 H POC Glucose 152 H Calcium 8.8 Total Bilirubin 0.4 AST 61 H ALT 63 Alkaline Phosphatase 127 H Troponin I Total Protein 6.8 Albumin 2.6 L Globulin 4.2 H Albumin/Globulin Ratio 0.6 L Diagnostic Findings Telemetry personally reviewed: Mostly sinus bradycardia. No arrhythmia. Medications Administered Current Inpatient Medications Acetaminophen (Tylenol) 650 mg PO Q4H PRN PRN Reason: Pain or Fever Stop: 12/06/19 20:24 Last Admin: 11/08/19 02:09 Dose: 650 mg Documented by: Al Hydrox/Mg Hydrox/Simethicone (Maalox) 15 ml PO Q4H PRN PRN Reason: Dyspepsia Stop: 12/06/19 20:24 Aspirin (Ecotrin Ectab) 81 mg PO BID [facility] Stop: 12/06/19 20:59 Last Admin: 11/08/19 08:15 Dose: 81 mg Documented by: Carvedilol (Coreg) 12.5 mg PO BID [facility] Stop: 12/08/19 11:14 Dextrose (Dextrose 50%) 25 - 50 ml IV UD PRN; Protocol PRN Reason: Hypoglycemia Protocol Stop: 12/06/19 20:24 Fish Oil ([place]-3 (Purified Fish Oil)) 1 gm PO BID [facility] Stop: 12/07/19 20:59 Last Admin: 11/08/19 08:15 Dose: 1 gm Documented by: Glucagon (Glucagen) 1 mg SQ UD PRN; Protocol PRN Reason: Hypoglycemia Protocol Stop: 12/06/19 20:24 Glucose (Dex4 Glucose) 4 - 8 tabs PO UD PRN; Protocol PRN Reason: Hypoglycemia Protocol Stop: 12/06/19 20:24 Glucose (Glucose 40%) 15 - 30 gm PO UD PRN; Protocol PRN Reason: Hypoglycemia Protocol Stop: 12/06/19 20:24 Hydralazine HCl (Apresoline) 10 mg PO QID PRN PRN Reason: bp greater than 160/90 Stop: 12/07/19 09:14 Last Admin: 11/07/19 23:03 Dose: 10 mg Documented by: Furosemide 20 mg/ Syringe 2 mls @ 4 mls/min IV BID17 [facility] Stop: 12/07/19 08:59 Last Admin: 11/08/19 08:14 Dose: 4 mls/min Documented by: Insulin Glargine (Lantus Solostar Pen) 20 units [facility]; Protocol Stop: 12/08/19 20:59 Insulin Human Lispro (Humalog) 0 units SC [facility]; Protocol Stop: 12/07/19 07:29 Last Admin: 11/08/19 08:11 Dose: 3 units Documented by: Magnesium Hydroxide (Milk Of Magnesia) 30 ml PO Q12H PRN PRN Reason: Constipation Stop: 12/06/19 20:24 Miscellaneous (Carbohydrates For Hypoglycemia) 15 - 30 gm PO UD PRN PRN Reason: Hypoglycemia Protocol Stop: 12/06/19 20:24 Miscellaneous Information (Consult Glycemic Management Pharmacy) 1 ea N/A UD PRN; Protocol PRN Reason: Consult Stop: 12/06/19 20:52 Nitroglycerin (Nitrostat) 0.4 mg SL PRN PRN PRN Reason: Angina Stop: 12/06/19 22:48 Last Admin: 11/07/19 04:01 Dose: 0.4 mg Documented by: Oxycodone/Acetaminophen (Percocet 5mg/325mg) 1 tab PO Q4H PRN PRN Reason: Pain Stop: 11/20/19 20:24 Polyethylene Glycol (Miralax Powder Packet) 17 gm PO DAILY PRN PRN Reason: Constipation Stop: 12/06/19 20:24 Rosuvastatin Calcium (Crestor) 40 mg PO HS [facility] Stop: 12/06/19 20:59 Last Admin: 11/07/19 21:31 Dose: 40 mg Documented by: Ticagrelor (Brilinta) 90 mg PO BID [facility] Stop: 12/06/19 20:59 Last Admin: 11/08/19 08:15 Dose: 90 mg Documented by: PG Care Time/CCT Total # of Minutes Spent Total Time Spent with Patient: Total time spent is greater than 50% in coordination of care (as documented) at patient's floor/unit and/or counseling patient: (1) Chest pain Chest pain type: precordial pain Qualified Code(s): R07.2 - Precordial pain (2) CAD (coronary artery disease) Coronary Disease-Associated Artery/Lesion type: [place] artery [place] vs. transplanted heart: [place] heart Associated angina: without angina Qualified Code(s): I25.10 - Atherosclerotic heart disease of [place] coronary artery without angina pectoris
--- NOTE | 2019-11-08 11:31 | Hospitalist Progress Note ---
Date of Service November 08, 2019 Assessment & Plan (1) Chest pain: Continue on telemetry for observation for chest pain Vital signs every 4 hours Trend troponin x3 with EKG, trending down 0.131--> 0.139--> 0.115 TTE result normal ventricular size and systolic function. Ejection fraction 65 to 70%. No regional wall motion abnormality. Severe concentric left ventricular hypertrophy. Mild aortic stenosis. Mild mitral regurgitation. Normal estimated right ventricular systolic pressure 26 mmHg compared to prior study of July 12, 2018 transvalvular aortic velocity gradient have increased. Appreciate cardiology recommendations DVT prophylaxis teds and SCD Full code (2) Elevated troponin: Likely elevated due to hypertensive emergency when patient presented in the ER, in addition to poor clearance due to worsening CKD stage III. Demand ischemia. Patient blood pressure was 229/83 on the entrance to the ER. Her blood pressure was controlled with clonidine 0.2 mg x 1 Continue hydralazine 10 mg p.o. 4 times daily as needed for systolic blood pressure over 160 and diastolic blood pressure over [address] Sandoval discontinue hydralazine 50 mg p.o. twice daily and started nifedipine 50 mg extended release p.o. every morning Dr. Del Cid recommended to titrate carvedilol 12.5 twice a day today. Nitroglycerin 0.4 mg as needed as needed for angina. (3) Hypertensive emergency: Patient was treated in the emergency room with clonidine 0.2 mg p.o. x1. That decrease her blood pressure to 134/76. Patient had another episode of hypertensive urgency last night when Procardia was given and 10 mg of hydralazine. Preferably will try to keep blood pressure below 160 and diastolic below 90, without trying to overdo it. Continue home medicine aspirin 81 mg p.o. twice daily, carvedilol 12.5 mg p.o. twice daily Furosemide switched to 20 mg IV twice daily. Discontinued hydralazine 50 mg p.o. daily and started to nifedipine 30 mg p.o. every morning Continue monitoring strict in and outs and daily weight. (4) Chronic heart failure with preserved ejection fraction (HFpEF): Strict in and out, Daily weight BNP is elevated to 5767 partially due to developing congestive heart failure and due to poor kidney clearance with worsening CKD stage III. Low-salt diet Restrict p.o. fluids to 1200 mils per day P.o. furosemide switched to IV 20 mg twice daily. Monitor kidney function closely since patient on furosemide and if worsening decrease furosemide (5) Diabetes mellitus: A1c 6.7 Use two thirds of basal insulin from home dose and sliding scale insulin to prevent developing hypoglycemia while patient in the hospital. Accu-Cheks before meals and at bedtime. Deferred Glycemic control to pharmacy (6) Hypertension: As discussed above (7) CAD (coronary artery disease): Continue home medicine Carvedilol 12.5 mg p.o. every afternoon Rosuvastatin 40 mg p.o. nightly Ticagrelor 90 mg p.o. twice daily Continue Fish oil 1 capsule p.o. twice daily. Patient would need tighter glycemic control. Aspirin 81 mg p.o. twice daily (8) Hyperlipidemia: Lipid panel : While patient total cholesterol is low proportion between good and bad cholesterol is 4. Patient would need to work on improving her good cholesterol, with either weight loss exercises and dieting. Placed dietitian consult. Continue rosuvastatin 40 mg p.o. nightly and omega 3 fish oil 1 capsule p.o. daily (9) Acute on chronic renal failure: Creatinine/GFR 2.7/17.3--> 2.65/17.7-->2.88/16 fluctuating Avoid nephrotoxic agents Continue monitoring creatinine and GFR Disposition Home with family Subjective Patient seen and examined at the bedside. She feels better today. Patient reports having bowel movement last night and she states that it was satisfactory. Patient had episode of hypotension last night. She was given dose of Procardia in addition to hydralazine 10 mg p.o. . Patient reports not tolerating Procardia or amlodipine very well due to swelling and she does not wish to continue this medication. Patient was taking 6.25 mg of carvedilol in the morning and 25 mg in the evening. Prior to that patient was on 25 twice daily which she did not call tolerated very well and developed bradycardia to upper 50s. Right now patient blood pressure is 124/70. Patient would like to ambulate into and it is ordered physical therapy. Patient is afebrile overnight. P.o. intake is improving. Troponin is trending down. Creatinine is slowly improving as well. Patient denies fever, chills, chest pain, shortness of breath, frequency, urgency, syncope, near syncope, melena, hematuria, dysuria. Review of Systems Review of Systems: All systems reviewed & are unremarkable except as noted in HPI & below Physical Exam Constitutional: WD/WN, vitals as above well developed Eyes: PERRL, conjunctivae normal, anicteric sclerae ENMT: external ear and nose normal, oropharynx normal Neck: trachea midline, no thyromegaly Respiratory: normal respiratory effort, lungs clear to auscultation Cardiovascular: RRR, no murmur, no edema Vessels: dorsalis pedis pulses present Gastrointestinal (Abdomen): Inspection/Auscultation: abdomen normal to inspection and + abdomen distended Percussion/Palpation: + abdomen tender and abdomen soft Musculoskeletal: no cyanosis or clubbing, extremities motor strength 5/5 Skin: no rashes, warm and dry Neurologic: patellar DTR's 2+ bilat, sensation intact Psychiatric: A+Ox3, euthymic affect Lymphatic: no cervical or axillary lymphadenopathy Results & Data Vital Signs (Past 12 Hours) Vital Signs Temp Pulse Pulse Resp BP Pulse Ox 11/08/19 07:00 36.8 C 59 L 18 124/70 97 11/08/19 02:25 36.8 C 57 L 16 145/64 H 96 11/08/19 00:05 59 L PG Care Time/CCT Total # of Minutes Spent Total Time Spent with Patient: Total time spent is greater than 50% in coordination of care (as documented) at patient's floor/unit and/or counseling patient: (1) CAD (coronary artery disease) Associated angina: without angina Coronary Disease-Associated Artery/Lesion type: [place] artery [place] vs. transplanted heart: [place] heart Qualified Code(s): I25.10 - Atherosclerotic heart disease of [place] coronary artery without angina pectoris (2) Hyperlipidemia Hyperlipidemia type: unspecified Qualified Code(s): E78.5 - Hyperlipidemia, unspecified (3) Chest pain Chest pain type: precordial pain Qualified Code(s): R07.2 - Precordial pain
--- NOTE | 2019-11-08 11:57 | Nephrology Progress Note ---
Date of Service November 08, 2019 Assessment & Plan (1) Acute on chronic renal failure: In the setting of accelerated hypertension. Document I/O's. Check UA/microscopy. Repeat a metabolic profile tomorrow AM. No role for [employer] at this time. (2) CKD (chronic kidney disease) stage 3, GFR 30-59 ml/min: Ayana has CKD III-IV at baseline. Serum creatinine at baseline is approximately 2.2 mg/dL. 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 She follows routinely with me in the CKD clinic. She has had multiple episodes of TIFFANY. In the past, these have often been associated with accelerated hypertension and volume overload. (3) Renal artery stenosis: Follow up evaluation deferred at this time pending additional monitoring and medical management of TIFFANY and elevated creatinine. (4) CAD (coronary artery disease): Plan of care reviewed with Dr. Del Cid. Benefits of maximum tolerated dose of carvedilol reviewed with Ayana. We are unfortunately limited by bradycardia. Plan to see how well she tolerates carvedilol 12.5 mg twice daily today.. (5) Chronic heart failure with preserved ejection fraction (HFpEF): Ultimately, will plan to restart losartan but deferred at this time pending improvement in kidney function. Spironolactone likewise deferred. (6) Hypertensive emergency: Carvedilol 12.5 mg twice daily. Continue nifedipine 30 mg daily. I would also like to continue furosemide 20 mg PO BID to encourage a slightly negative fluid balance. Subjective Ayana was seen and evaluated while sitting in a bedside chair this morning. She feels better today. She denies chest pain or dyspnea. She denies palpitations. LE edema increased slightly. Appetite is good. Review of Systems Review of Systems: All systems reviewed & are unremarkable except as noted in HPI & below Physical Exam Constitutional: well developed and + morbidly obese; not edematous Eyes: + anicteric sclerae; no conjunctival abnormality ENMT: Mouth: no oral mucosal abnormality and oral mucous membranes not dry Neck: normal visual inspection, trachea midline and + thick neck Respiratory: normal respiratory effort Auscultation: lungs clear to auscultation bilaterally and + diminished lung sounds Cardiovascular: Rate/Rhythm: regular rate Heart Sounds: normal S1 and normal S2 Vessels: + JVD Extremities: + edema Gastrointestinal (Abdomen): Percussion/Palpation: abdomen soft; abdomen nontender Musculoskeletal: Extremities: no cyanosis and no clubbing Skin: normal turgor; no lesions Neurologic: Motor/Sensory: no tremor and no asterixis Psychiatric: Orientation: alert and oriented x 3 Results & Data Vital Signs (Past 12 Hours) Vital Signs Temp Pulse Pulse Resp BP Pulse Ox 11/08/19 07:00 36.8 C 59 L 18 124/70 97 11/08/19 02:25 36.8 C 57 L 16 145/64 H 96 11/08/19 00:05 59 L Laboratory Results Laboratory Results - last 24 hr 11/07/19 11/07/19 11/07/19 14:51 16:20 20:15 WBC RBC Hgb Hct MCV MCH MCHC RDW Std Deviation RDW Coeff of Ekaterina Plt Count MPV Immature Gran % (Auto) Neut % (Auto) Lymph % (Auto) [place] % (Auto) Eos % (Auto) Baso % (Auto) Immature Gran # (Auto) Neut # (Auto) Lymph # (Auto) [place] # (Auto) Eos # (Auto) Baso # (Auto) Sodium Potassium Chloride Carbon Dioxide Anion Gap BUN Creatinine Est Cr Clr Drug Dosing Est GFR ( Amer) Est GFR (Non-Af Amer) BUN/Creatinine Ratio Glucose POC Glucose 126 H Calcium Total Bilirubin AST ALT Alkaline Phosphatase Troponin I 0.102 H* 0.116 H* Total Protein Albumin Globulin Albumin/Globulin Ratio 11/07/19 11/08/19 11/08/19 20:19 05:58 05:58 WBC 10.87 H RBC 3.85 L Hgb 10.4 L Hct 32.4 L MCV 84.2 MCH 27.0 MCHC 32.1 RDW Std Deviation 45.3 RDW Coeff of Ekaterina 14.8 H Plt Count 209 MPV 11.7 H Immature Gran % (Auto) 0.2 Neut % (Auto) 70.0 Lymph % (Auto) 16.8 [place] % (Auto) 6.8 Eos % (Auto) 5.9 Baso % (Auto) 0.3 Immature Gran # (Auto) 0.02 Neut # (Auto) 7.61 H Lymph # (Auto) 1.83 [place] # (Auto) 0.74 H Eos # (Auto) 0.64 H Baso # (Auto) 0.03 Sodium 142 Potassium 3.6 Chloride 111 H Carbon Dioxide 23 Anion Gap 8.0 BUN 64 H Creatinine 2.88 H Est Cr Clr Drug Dosing 20.4 Est GFR ( Amer) 18.5 Est GFR (Non-Af Amer) 16.0 BUN/Creatinine Ratio 22.3 H Glucose 130 H POC Glucose 168 H Calcium 8.8 Total Bilirubin 0.4 AST 61 H ALT 63 Alkaline Phosphatase 127 H Troponin I Total Protein 6.8 Albumin 2.6 L Globulin 4.2 H Albumin/Globulin Ratio 0.6 L 11/08/19 07:19 WBC RBC Hgb Hct MCV MCH MCHC RDW Std Deviation RDW Coeff of Ekaterina Plt Count MPV Immature Gran % (Auto) Neut % (Auto) Lymph % (Auto) [place] % (Auto) Eos % (Auto) Baso % (Auto) Immature Gran # (Auto) Neut # (Auto) Lymph # (Auto) [place] # (Auto) Eos # (Auto) Baso # (Auto) Sodium Potassium Chloride Carbon Dioxide Anion Gap BUN Creatinine Est Cr Clr Drug Dosing Est GFR ( Amer) Est GFR (Non-Af Amer) BUN/Creatinine Ratio Glucose POC Glucose 152 H Calcium Total Bilirubin AST ALT Alkaline Phosphatase Troponin I Total Protein Albumin Globulin Albumin/Globulin Ratio PG Care Time/CCT Total # of Minutes Spent Total Time Spent with Patient: Total time spent is greater than 50% in coordination of care (as documented) at patient's floor/unit and/or counseling patient: (1) CAD (coronary artery disease) Coronary Disease-Associated Artery/Lesion type: [place] artery [place] vs. transplanted heart: [place] heart Associated angina: without angina Qualified Code(s): I25.10 - Atherosclerotic heart disease of [place] coronary artery without angina pectoris
[2019-11-08] MEDS: carvediloL 12.5 MG TAB PO SCH ×2 (12:24→20:28)
[2019-11-08] MEDS: NIFEdipine EXTENDED REL 30 MG TABCR PO SCH (13:14)
[2019-11-08] MEDS ORDERED: FUROSEMIDE 20 MG TAB PO SCH (17:00)
[2019-11-08] MEDS: ROSUVASTATIN CALCIUM 20 MG TAB PO SCH (20:31)
[2019-11-08] MEDS: INSULIN GLARGINE SOLOSTAR 100 UNITS/ML 3 ML PEN SC SCH (20:37)
[2019-11-09 07:33] LABS: Basophils # (auto) 0.03 K/uL (0-0.2); Basophils % (auto) 0.3 %; Eosinophils # (auto) 0.55 K/uL (0-0.5); Eosinophils % (auto) 4.9 %; Hematocrit (blood only) 33.5 % (37-47); Hemoglobin 10.9 g/dL (12.0-16.0); Immature Granulocytes # (auto) 0.02 K/uL (0.00-0.02); Immature Granulocytes % (auto) 0.2 %; Lymphocytes # (auto) 1.39 K/uL (1.2-3.4); Lymphocytes % (auto) 12.4 %; Mean Corpuscular Hemoglobin 27.4 pg (25-34); Mean Corpuscular Hgb Conc 32.5 g/dL (32-36); Mean Corpuscular Volume 84.2 fL (80-100); Mean Platelet Volume 12.2 fL (7.4-10.4); Monocytes # (auto) 0.68 K/uL (0.11-0.59); Monocytes % (auto) 6.1 %; Neutrophils # (auto) 8.55 K/uL (1.4-6.5); Neutrophils % (auto) 76.1 %; Platelet Count 225 K/uL (130-400); RDW Standard Deviation 45.8 fL (36.4-46.3); Red Blood Count 3.98 M/uL (4.2-5.4); White Blood Count 11.22 K/uL (4.8-10.8)
[2019-11-09 08:13] LABS: Albumin Level 2.8 gm/dl (3.4-5.0); BUN Creatinine Ratio 21.6 (10-20); Calcium 8.9 mg/dl (8.5-10.1); Creatinine Clr Calc Pharmacy 17.6 ml/min; Est GFR (African American) 15.5; Est GFR (Non-African American) 13.4; Potassium 3.4 mmol/L (3.5-5.1)
[2019-11-09 08:16] LABS: Albumin Globulin Ratio 0.7 (0.9-2); Bilirubin,Total 0.3 mg/dl (0.2-1); Globulin 4.2 gm/dl (2.5-4.0)
[2019-11-09] MEDS: NIFEdipine EXTENDED REL 30 MG TABCR PO SCH (08:46)
[2019-11-09] MEDS: carvediloL 12.5 MG TAB PO SCH ×2 (08:46→21:06)
[2019-11-09] MEDS: OMEGA-3 (PURIFIED FISH OIL) 1 GM CAP PO SCH ×2 (08:46→21:04)
[2019-11-09] MEDS: ASPIRIN 81 MG ECTAB PO SCH ×2 (08:46→21:07)
[2019-11-09] MEDS: TICAGRELOR 90 MG TAB PO SCH ×2 (08:47→21:04)
[2019-11-09] MEDS: INSULIN HUMAN LISPRO (humaLOG) 100 UNITS/ML VIAL SC SCH ×4 (08:47→21:09)
[2019-11-09 09:16] LABS: Appearance Urine Turbid (Clear); Bacteria Urine Automated Negative (Negative); Bilirubin Urine Negative (Negative); Blood Urine 3+ (Negative); Color Urine Yellow; Epithelial Cell Urine Auto >30 /lpf (0-5); Glucose Urine UA Negative (Negative); Ketones Urine Negative (Negative); Leukocyte Esterase Urine Trace (Negative); Nitrite Urine Negative (Negative); Protein Urine 2+ (Negative); RBC Urine Automated 0-4 /hpf (0-4); Specific Gravity Urine 1.016 (1.000-1.030); Urobilinogen Urine Negative (Negative)
--- NOTE | 2019-11-09 09:18 | Pharmacy Report ---
Pharmacy Glycemic Short Note 2 - Date of Service November 09, 2019 - Glycemic Short BSG Results (Last 24 hours): 11/08/19 11/08/19 11/08/19 11:50 16:27 20:27 Glucose POC Glucose 178 H 171 H 137 H 11/09/19 11/09/19 06:54 07:24 Glucose 146 H POC Glucose 146 H OUTPATIENT ANTIDIABETIC REGIMEN: * Humalog 10 units with breakfast, 20 units with lunch and dinner * Lantus BID per sliding scale - per patient, she does not always take this * A1c = 6.7 % 11/07/19 The patient is currently receiving: * Basal insulin: Lantus 20 units qhs (with 1/2 dose for BSG < 140) * Correctional Insulin: Novolog Correction per scale ACHS Goal Range: Low 110 mg/dL - High 140 mg/dL Correction Factor: 25 mg/dL/unit * Prandial insulin: Per carb ratio of 1 unit per 8 grams CHO consumed - Assessment & Plan ASSESSMENT: 11/09 * BSGs well controlled over last 24 hrs * Fasting BSG 146 this AM with 20 units basal on board - this is near goal, thus will continue for now * Post-prandial BSGs well controlled yesterday with current CR / CF - will continue 11/08 * BSGs stable over the past 24 hours * Patient received 20 units of basal and 13 units of prandial insulin * Clinical dietitian spoke with patient re: carb coverage with meals. Patient amenable to T1DM but did not want carb restriction with T2DM diet. Outpatient Humalog doses use CF 20, CR 7, so this is comparable to current inpatient dosing. She typically does not use correctional at HS but tolerated this last night so will continue for now. 11/07 * 69 y/o F admitted for CP, hypertensive emergency and abdominal pain. PMH notable for T2DM, HFpEF, CKD. A1c well controlled; however, may not be reliable in CKD. Last dose of Lantus COMPLIANCE ASSISTANT was 15 units on 11/04. BSGs were in range in the ED but increased to the 200s last night. She received 20 units of Lantus last night with fasting BSG of 116 mg/dL this AM. SCr remains elevated from baseline. * Dietitian notified me that patient refused carb counting and wanted a regular diet. Dietitian was going to speak with patient to obtain more information. Patient will require carb counting for appropriate insulin dosing. PLAN FOR INPATIENT GLYCEMIC CONTROL: * Basal insulin - no change * Lantus 20 units SQ qHS * Bolus insulin - no change * NovoLog per scale ACHS or Q6hrs while NPO * Goal Range: Low 110 mg/dL - High 140 mg/dL * Correction Factor: 25 mg/dL/unit * Nutritional / Prandial insulin per carb ratio of 1 unit per 8 grams CHO consumed PLAN FOR DISCHARGE: * A1c = 6.7% on 11/07/19 * Goal A1c < 7% based on age/comorbidities * Recommend to resume outpatient regimen on discharge
--- NOTE | 2019-11-09 09:49 | Nephrology Progress Note ---
Date of Service November 09, 2019 Assessment & Plan (1) Acute on chronic renal failure: In the setting of accelerated hypertension. Document I/O's. Repeat urine microscopy pending. Renal artery duplex ordered for today. Document strict I/O's. (2) CKD (chronic kidney disease) stage 3, GFR 30-59 ml/min: Ayana has CKD III-IV at baseline. Serum creatinine at baseline is approximately 2.2 mg/dL. 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 She follows routinely with me in the CKD clinic. She has had multiple episodes of TIFFANY. In the past, these have often been associated with accelerated hypertension and volume overload. (3) Renal artery stenosis: RA duplex today. (4) CAD (coronary artery disease): Symptoms improved with management of accelerated hypertension. (5) Chronic heart failure with preserved ejection fraction (HFpEF): Ultimately, will plan to restart losartan but deferred at this time pending improvement in kidney function. Spironolactone likewise deferred. (6) Hypertensive emergency: Carvedilol 12.5 mg twice daily. Continue nifedipine 30 mg daily. Furosemide held this AM due to worsening renal function. Subjective No acute events overnight. Ayana feels reasonably well this morning. She was ambulating in the hallway with PT. LE edema persists. She denies any chest pain or palpitations. She denies significant dyspnea or orthopnea. She denies any urinary symptoms. She denies lightheadedness, dizziness, syncope or presyncope. Review of Systems Review of Systems: All systems reviewed & are unremarkable except as noted in HPI & below Physical Exam Constitutional: well developed and + morbidly obese; not edematous Eyes: + anicteric sclerae; no conjunctival abnormality ENMT: Mouth: no oral mucosal abnormality and oral mucous membranes not dry Neck: normal visual inspection, trachea midline and + thick neck Respiratory: normal respiratory effort Auscultation: lungs clear to auscultation bilaterally and + diminished lung sounds Cardiovascular: Rate/Rhythm: regular rate Heart Sounds: normal S1 and normal S2 Vessels: + JVD Extremities: + edema Gastrointestinal (Abdomen): Percussion/Palpation: abdomen soft; abdomen nontender Musculoskeletal: Extremities: no cyanosis and no clubbing Skin: normal turgor; no lesions Neurologic: Motor/Sensory: no tremor and no asterixis Psychiatric: Orientation: alert and oriented x 3 Results & Data Vital Signs (Past 12 Hours) Vital Signs Temp Pulse Pulse Resp BP Pulse Ox 11/09/19 07:37 36.3 C L 73 18 138/77 97 11/09/19 04:31 36.6 C 60 18 121/71 97 11/09/19 02:36 57 L 11/08/19 23:29 36.4 C L 61 18 126/77 95 Laboratory Results Laboratory Results - last 24 hr 11/08/19 11/08/19 11/08/19 11:50 16:27 20:27 WBC RBC Hgb Hct MCV MCH MCHC RDW Std Deviation RDW Coeff of Ekaterina Plt Count MPV Immature Gran % (Auto) Neut % (Auto) Lymph % (Auto) Kane % (Auto) Eos % (Auto) Baso % (Auto) Immature Gran # (Auto) Neut # (Auto) Lymph # (Auto) Kane # (Auto) Eos # (Auto) Baso # (Auto) Sodium Potassium Chloride Carbon Dioxide Anion Gap BUN Creatinine Est Cr Clr Drug Dosing Est GFR ( Amer) Est GFR (Non-Af Amer) BUN/Creatinine Ratio Glucose POC Glucose 178 H 171 H 137 H Calcium Total Bilirubin AST ALT Alkaline Phosphatase Total Protein Albumin Globulin Albumin/Globulin Ratio Urine Color Urine Appearance Urine pH Ur Specific Stuart Urine Protein Urine Glucose (UA) Urine Ketones Urine Blood Urine Nitrite Urine Bilirubin Urine Urobilinogen Ur Leukocyte Esterase Urine WBC (Auto) Urine RBC (Auto) U Hyaline Cast (Auto) U Epithel Cells (Auto) Urine Bacteria (Auto) Ur Renal Epithelial Cell Urine Crystals Calcium Oxalate Crystal Uric Acid Crystals Triple Phos Crystals Other Crystals Amorphous Sediment Granular Casts Waxy Casts RBC Casts WBC Casts Other Casts Urine Mucus Urine Other Urine Trichomonas Urine Yeast Urine Sperm Ur Oval Fat Bodies 11/09/19 11/09/19 11/09/19 06:54 06:54 07:24 WBC 11.22 H RBC 3.98 L Hgb 10.9 L Hct 33.5 L MCV 84.2 MCH 27.4 MCHC 32.5 RDW Std Deviation 45.8 RDW Coeff of Ekaterina 15.0 H Plt Count 225 MPV 12.2 H Immature Gran % (Auto) 0.2 Neut % (Auto) 76.1 Lymph % (Auto) 12.4 Kane % (Auto) 6.1 Eos % (Auto) 4.9 Baso % (Auto) 0.3 Immature Gran # (Auto) 0.02 Neut # (Auto) 8.55 H Lymph # (Auto) 1.39 Kane # (Auto) 0.68 H Eos # (Auto) 0.55 H Baso # (Auto) 0.03 Sodium 140 Potassium 3.4 L Chloride 107 Carbon Dioxide 23 Anion Gap 10.0 BUN 72 H Creatinine 3.34 H D Est Cr Clr Drug Dosing 17.6 Est GFR ( Amer) 15.5 Est GFR (Non-Af Amer) 13.4 BUN/Creatinine Ratio 21.6 H Glucose 146 H POC Glucose 146 H Calcium 8.9 Total Bilirubin 0.3 AST 74 H ALT 78 Alkaline Phosphatase 130 H Total Protein 7.0 Albumin 2.8 L Globulin 4.2 H Albumin/Globulin Ratio 0.7 L Urine Color Urine Appearance Urine pH Ur Specific Stuart Urine Protein Urine Glucose (UA) Urine Ketones Urine Blood Urine Nitrite Urine Bilirubin Urine Urobilinogen Ur Leukocyte Esterase Urine WBC (Auto) Urine RBC (Auto) U Hyaline Cast (Auto) U Epithel Cells (Auto) Urine Bacteria (Auto) Ur Renal Epithelial Cell Urine Crystals Calcium Oxalate Crystal Uric Acid Crystals Triple Phos Crystals Other Crystals Amorphous Sediment Granular Casts Waxy Casts RBC Casts WBC Casts Other Casts Urine Mucus Urine Other Urine Trichomonas Urine Yeast Urine Sperm Ur Oval Fat Bodies 11/09/19 11/09/19 09:00 09:00 WBC RBC Hgb Hct MCV MCH MCHC RDW Std Deviation RDW Coeff of Ekaterina Plt Count MPV Immature Gran % (Auto) Neut % (Auto) Lymph % (Auto) Kane % (Auto) Eos % (Auto) Baso % (Auto) Immature Gran # (Auto) Neut # (Auto) Lymph # (Auto) Kane # (Auto) Eos # (Auto) Baso # (Auto) Sodium Potassium Chloride Carbon Dioxide Anion Gap BUN Creatinine Est Cr Clr Drug Dosing Est GFR ( Amer) Est GFR (Non-Af Amer) BUN/Creatinine Ratio Glucose POC Glucose Calcium Total Bilirubin AST ALT Alkaline Phosphatase Total Protein Albumin Globulin Albumin/Globulin Ratio Urine Color Cancelled Yellow Urine Appearance Cancelled Turbid A Urine pH Cancelled 5.0 Ur Specific Stuart Cancelled 1.016 Urine Protein Cancelled 2+ H Urine Glucose (UA) Cancelled Negative Urine Ketones Cancelled Negative Urine Blood Cancelled 3+ H Urine Nitrite Cancelled Negative Urine Bilirubin Cancelled Negative Urine Urobilinogen Cancelled Negative Ur Leukocyte Esterase Cancelled Trace H Urine WBC (Auto) Cancelled Pending Urine RBC (Auto) Cancelled Pending U Hyaline Cast (Auto) Cancelled Pending U Epithel Cells (Auto) Cancelled Pending Urine Bacteria (Auto) Cancelled Pending Ur Renal Epithelial Cell Cancelled Urine Crystals Cancelled Calcium Oxalate Crystal Cancelled Uric Acid Crystals Cancelled Triple Phos Crystals Cancelled Other Crystals Cancelled Amorphous Sediment Cancelled Granular Casts Cancelled Waxy Casts Cancelled RBC Casts Cancelled WBC Casts Cancelled Other Casts Cancelled Urine Mucus Cancelled Urine Other Cancelled Urine Trichomonas Cancelled Urine Yeast Cancelled Pending Urine Sperm Cancelled Ur Oval Fat Bodies Cancelled PG Care Time/CCT Total # of Minutes Spent Total Time Spent with Patient: Total time spent is greater than 50% in coordination of care (as documented) at patient's floor/unit and/or counseling patient: (1) CAD (coronary artery disease) Coronary Disease-Associated Artery/Lesion type: [place] artery [place] vs. transplanted heart: [place] heart Associated angina: without angina Qualified Code(s): I25.10 - Atherosclerotic heart disease of [place] coronary artery without angina pectoris
[2019-11-09 09:50] LABS: Amorphous Sediment Urine Present (None Prsent)
--- NOTE | 2019-11-09 10:36 | Urology Consultation ---
Date of Consultation November 09, 2019 Assessment & Plan (1) Hematuria: 69yo F with PMHx CKD III, PR, CAD, CHF, s/p left renal stent placement, consulted for microscopic hematuria. Cr elevated today, appreciate nephrology recommendations. CT imaging from 11/06 reveals no ureteral stones, no hydronephrosis. Pt remains asymptomatic from perspective. Offered cytology due to history of tobacco use. Discussed risk factors for bladder cancer, she would like to hold off for now. Pt will benefit from outpatient workup for hematuria on nonurgent basis. Thank you for allowing us to participate in the acute care of Mrs. Mcnulty. Please reconsult us with additional questions, concerns or changes in patient status. History of Present Illness Reason for Consultation: hematuria Requesting Physician: Dr. Arroyo Attending Physician: Marlene Arroyo MD History of Present Illness 69yo F with PMHx of CKD III (baseline Cr 2.2), s/p Left renal artery stent, HTN, CHF, LVH, DM, admitted on 11/06 with CP, SOB and weakness. Nephrology consulted, trending Cr which was grossly elevated today to 3.3. We were consulted to assist with hematuria. CT imaging upon admission reveals bilateral small nonobstructing stones, bilateral renal cysts. No ureteral or bladder stones. No hydronephrosis. Pt states her urine is clear, has never seen gross hematuria, no clots. UA reveals +3 blood, RBC 0-4 on micro. Acknowledges urinary urgency, relates to diuretic administration. Denies dysuria, incomplete emptying. Denies trouble with UTIs. Denies personal or family hx of bladder or renal cancer. Remote tobacco use. Remote hx of evaluation by Dr. Weston for stones. States she follows with Dr. Sandoval closely, monitors known renal stones for many years. States they cause her no issues for many years, just "a pain in the neck because they're there". Allergies Allergy/AdvReac Type Severity Reaction Status Date / Time Sulfa (Sulfonamide Allergy Intermediate RASH Verified 10/23/19 09:44 Antibiotics) Penicillins Allergy Mild Unknown Verified 11/07/19 00:09 insulin aspart Allergy Hives Verified 11/07/19 00:09 [From Novolog U-100 Insulin aspart] meperidine AdvReac Intermediate hallucinate Verified 10/23/19 09:44 s lisinopril AdvReac Mild COUGHING Verified 10/23/19 09:44 Home Medications Home Medications Medication Instructions Recorded Confirmed Type [id number] oil-D3 [Fish 1 cap PO DAILY 07/12/18 11/06/19 History Oil-Vit D3] pen needle, diabetic 32 gauge x #400 ea 05/29/19 10/23/19 Rx 1/4" insulin lispro 100 unit/mL See Rx Instructions SUBCUT 07/20/19 11/06/19 Rx subcutaneous cartridge .COMPLEX #75 ml rosuvastatin 40 mg tablet 40 mg PO HS 07/29/19 11/06/19 History blood sugar diagnostic #10 ea 08/04/19 10/23/19 History lancets #50 ea 08/04/19 10/23/19 History insulin glargine 100 unit/mL (3 0 units SUBCUT BID ml 10/09/19 11/06/19 History mL) subcutaneous pen furosemide 20 mg tablet 20 mg PO DAILY PRN #90 tab 10/15/19 11/06/19 Rx furosemide 40 mg tablet 40 mg PO DAILY #90 tab 10/15/19 11/06/19 Rx ticagrelor 90 mg tablet 90 mg PO BID 10/23/19 11/06/19 History aspirin [Giselle Chewable Aspirin] 81 mg PO BID 11/06/19 11/06/19 History carvedilol 0 mg PO QAM 11/06/19 11/06/19 History carvedilol 25 mg PO QPM 11/06/19 11/06/19 History Patient History Medical History CAD (coronary artery disease) CHF (congestive heart failure) Chronic heart failure with preserved ejection fraction (HFpEF) CKD (chronic kidney disease) stage 3, GFR 30-59 ml/min Diabetes Diverticulosis Elevated troponin History of stent insertion of renal artery 2014 Hyperlipidemia Hypertension LVH (left ventricular hypertrophy) Lymphedema Renal artery stenosis Severe left ventricular hypertrophy Status post myocardial infarction Surgical History H/O heart artery stent Family History Other Hypertension Social History Preferred Language: Mexican Communication Ability: Effective [place] Required: No Beliefs That Will Affect Care: Jewish Jewish Beliefs: PATIENT STATES SHE NEEDS A PRIVATE ROOM FOR HER "TENRIISM PRAYERS" marital status: / Current Living Situation: Family Current Living Situation Comment: lives with grandson Other Information That Helps Us Care for You: No Feels Safe at Home: Yes Safety Concerns: Feels Safe At This Time Smoking Status: Former smoker Second Hand Exposure: No ; Hx Alcohol Use: No Hx Substance Use: No Review of Systems Review of Systems: All systems reviewed & are unremarkable except as noted in HPI & below Physical Exam Physical Exam: A&Ox3 Resp rate reg abd soft, nontender urine not observed Results & Data Vital Signs (Past 12 Hours) Vital Signs Temp Pulse Pulse Resp BP Pulse Ox 11/09/19 07:37 36.3 C L 73 18 138/77 97 11/09/19 04:31 36.6 C 60 18 121/71 97 11/09/19 02:36 57 L 11/08/19 23:29 36.4 C L 61 18 126/77 95 PG Care Time/CCT Total # of Minutes Spent Total Time Spent with Patient: Total time spent is greater than 50% in coordination of care (as documented) at patient's floor/unit and/or counseling patient:
--- NOTE | 2019-11-09 12:03 | Cardiology Progress Note ---
Date of Service November 09, 2019 Assessment & Plan (1) Chest pain: (2) Elevated troponin: (3) Hypertensive emergency: (4) Chronic heart failure with preserved ejection fraction (HFpEF): (5) CAD (coronary artery disease): (6) H/O heart artery stent: (7) LVH (left ventricular hypertrophy): ASSESSMENT/PLAN: 1. Hypertensive Emergency: Blood pressure looks much better over the past 24 hours. She is currently maintained on Procardia, Hydralazine, and Carvedilol. her Lasix was held today because of worsening renal function. She has severe LVH, likely hypertensive heart disease, and known underlying CAD -- we suspect her uncontrolled hypertension was playing a role in her chest pain (presenting symptom). Nephrology will continue managing her antihypertensive agents at this time. 2. Elevated Troponin, chronic: She chronically has low level elevated troponin as far back as 2006. She did not present with acute coronary syndrome. Stable findings on echo. It is very unlikely that she thrombosed her RCA stent as she does not have ST elevations, new wall motion abnormalities, and ongoing symptoms. Likely due to her severe LVH, hypertension, and CKD, with underlying CAD. No need for further ischemic workup at this time. Continue to optimize her blood pressure. 3. CAD s/p PCI (Cx and RCA): Chest pain (now resolved) --was possibly anginal but most likely secondary to severe LVH in the setting of severe hypertension and underlying CAD. This does not likely represent acute coronary syndrome/unstable plaque/stent thrombosis. Continue to optimize hypertensive regimen. Continue Aspirin 81 mg daily indefinitely. Continue Brilinta for at least 1 year given prior PCI in September of 2019. Continue high-intensity statin therapy and beta-fartun therapy. She has not tolerated nitrate therapy in the past. 4. Chronic Diastolic CHF: She does not appear to be significantly hypervolemic. She did not present with a CHF exacerbation. Can continue home diuretic therapy as renal function allows. Low-sodium diet. 5. Disposition: Cardiology will continue to follow. Please call with any other questions or concerns. When discharged, she should follow-up with her primary manager new product, Dr. Knott. Supervising Physician Co-Signing Physician Notes Julian Del Cid MD Subjective Mrs. Mcnulty has had significant improvement in her blood pressure readings over the past 24 hours. Her blood pressure readings have ranged between 114/70 to 138/77, and she has not had any recurrent chest discomfort whatsoever. She states that her breathing is at baseline and that she feels well. She thought she was going home today, but her creatinine has risen and she has developed swelling of her feet and legs. Nephrology will like to do further evaluation with a renal arterial ultrasound/renal ultrasound to rule out any recurrent renal artery stenosis or new stenotic lesions. Patient specifically denies any chest pain, heaviness, tightness, pressure, or discomfort. She denies any shortness of breath, dyspnea on exertion, orthopnea, or PND. She denies any palpitations, syncope, or near syncope. Some of this edema may be related to Procardia. Her Lasix was held today because of worsening renal function. Physical Exam Physical Exam: GENERAL: Patient in no acute distress. HEENT: Head is atraumatic, normocephalic. EOM's intact. Facies symmetric. No perioral cyanosis. NECK: No JVD. JVP is at the level of the clavicle sitting upright. Carotid upstrokes are + 2 bilaterally. No bruits are noted. CHEST/LUNGS: Clear to auscultation throughout all lung chaudhry. No wheezes, rales, or crackles. CVS: S1 and S2 are regular with a grade 2/6 basal systolic ejection murmur. No diastolic murmurs appreciated. PMI is nondisplaced. No lifts, heaves, or thrills. No abdominal aortic or renal bruits. ABDOMINAL EXAM: Bowel sounds are present. No masses, organomegaly, or tenderness. EXTREMITIES: No clubbing or cyanosis. Plus one bipedal and ankle edema, trace pretibial edema bilaterally. Intact posterior tibial and radial pulses bilaterally. NEUROLOGIC EXAM: Patient is awake, alert, and oriented. Pleasant and cooperative. Answers questions appropriately. Speech is clear. Normal movement in all 4 extremities. Gait pattern was not assessed. Results & Data Vital Signs (Past 12 Hours) Vital Signs Temp Pulse Pulse Resp BP Pulse Ox 11/09/19 11:43 36.7 C 58 L 20 158/90 H 99 11/09/19 07:37 36.3 C L 73 18 138/77 97 11/09/19 04:31 36.6 C 60 18 121/71 97 11/09/19 02:36 57 L Laboratory Results Laboratory Results - last 24 hr 11/08/19 11/08/19 11/08/19 11:50 16:27 20:27 WBC RBC Hgb Hct MCV MCH MCHC RDW Std Deviation RDW Coeff of Ekaterina Plt Count MPV Immature Gran % (Auto) Neut % (Auto) Lymph % (Auto) [place] % (Auto) Eos % (Auto) Baso % (Auto) Immature Gran # (Auto) Neut # (Auto) Lymph # (Auto) [place] # (Auto) Eos # (Auto) Baso # (Auto) Sodium Potassium Chloride Carbon Dioxide Anion Gap BUN Creatinine Est Cr Clr Drug Dosing Est GFR ( Amer) Est GFR (Non-Af Amer) BUN/Creatinine Ratio Glucose POC Glucose 178 H 171 H 137 H Calcium Total Bilirubin AST ALT Alkaline Phosphatase NT-Pro-B Natriuret Pep Total Protein Albumin Globulin Albumin/Globulin Ratio Urine Color Urine Appearance Urine pH Ur Specific [place] Urine Protein Urine Glucose (UA) Urine Ketones Urine Blood Urine Nitrite Urine Bilirubin Urine Urobilinogen Ur Leukocyte Esterase Urine WBC (Auto) Urine RBC (Auto) U Hyaline Cast (Auto) U Epithel Cells (Auto) Urine Bacteria (Auto) Ur Renal Epithelial Cell Urine Crystals Calcium Oxalate Crystal Uric Acid Crystals Triple Phos Crystals Other Crystals Amorphous Sediment Granular Casts Waxy Casts RBC Casts WBC Casts Other Casts Urine Mucus Urine Other Urine Trichomonas Urine Yeast Urine Sperm Ur Oval Fat Bodies 11/09/19 11/09/19 11/09/19 06:54 06:54 06:54 WBC 11.22 H RBC 3.98 L Hgb 10.9 L Hct 33.5 L MCV 84.2 MCH 27.4 MCHC 32.5 RDW Std Deviation 45.8 RDW Coeff of Ekaterina 15.0 H Plt Count 225 MPV 12.2 H Immature Gran % (Auto) 0.2 Neut % (Auto) 76.1 Lymph % (Auto) 12.4 [place] % (Auto) 6.1 Eos % (Auto) 4.9 Baso % (Auto) 0.3 Immature Gran # (Auto) 0.02 Neut # (Auto) 8.55 H Lymph # (Auto) 1.39 [place] # (Auto) 0.68 H Eos # (Auto) 0.55 H Baso # (Auto) 0.03 Sodium 140 Potassium 3.4 L Chloride 107 Carbon Dioxide 23 Anion Gap 10.0 BUN 72 H Creatinine 3.34 H D Est Cr Clr Drug Dosing 17.6 Est GFR ( Amer) 15.5 Est GFR (Non-Af Amer) 13.4 BUN/Creatinine Ratio 21.6 H Glucose 146 H POC Glucose Calcium 8.9 Total Bilirubin 0.3 AST 74 H ALT 78 Alkaline Phosphatase 130 H NT-Pro-B Natriuret Pep 2571 H Total Protein 7.0 Albumin 2.8 L Globulin 4.2 H Albumin/Globulin Ratio 0.7 L Urine Color Urine Appearance Urine pH Ur Specific [place] Urine Protein Urine Glucose (UA) Urine Ketones Urine Blood Urine Nitrite Urine Bilirubin Urine Urobilinogen Ur Leukocyte Esterase Urine WBC (Auto) Urine RBC (Auto) U Hyaline Cast (Auto) U Epithel Cells (Auto) Urine Bacteria (Auto) Ur Renal Epithelial Cell Urine Crystals Calcium Oxalate Crystal Uric Acid Crystals Triple Phos Crystals Other Crystals Amorphous Sediment Granular Casts Waxy Casts RBC Casts WBC Casts Other Casts Urine Mucus Urine Other Urine Trichomonas Urine Yeast Urine Sperm Ur Oval Fat Bodies 11/09/19 11/09/19 11/09/19 07:24 09:00 09:00 WBC RBC Hgb Hct MCV MCH MCHC RDW Std Deviation RDW Coeff of Ekaterina Plt Count MPV Immature Gran % (Auto) Neut % (Auto) Lymph % (Auto) [place] % (Auto) Eos % (Auto) Baso % (Auto) Immature Gran # (Auto) Neut # (Auto) Lymph # (Auto) [place] # (Auto) Eos # (Auto) Baso # (Auto) Sodium Potassium Chloride Carbon Dioxide Anion Gap BUN Creatinine Est Cr Clr Drug Dosing Est GFR ( Amer) Est GFR (Non-Af Amer) BUN/Creatinine Ratio Glucose POC Glucose 146 H Calcium Total Bilirubin AST ALT Alkaline Phosphatase NT-Pro-B Natriuret Pep Total Protein Albumin Globulin Albumin/Globulin Ratio Urine Color Cancelled Yellow Urine Appearance Cancelled Turbid A Urine pH Cancelled 5.0 Ur Specific [place] Cancelled 1.016 Urine Protein Cancelled 2+ H Urine Glucose (UA) Cancelled Negative Urine Ketones Cancelled Negative Urine Blood Cancelled 3+ H Urine Nitrite Cancelled Negative Urine Bilirubin Cancelled Negative Urine Urobilinogen Cancelled Negative Ur Leukocyte Esterase Cancelled Trace H Urine WBC (Auto) Cancelled 10-30 H Urine RBC (Auto) Cancelled 0-4 U Hyaline Cast (Auto) Cancelled 1-5 U Epithel Cells (Auto) Cancelled >30 H Urine Bacteria (Auto) Cancelled Negative Ur Renal Epithelial Cell Cancelled Urine Crystals Cancelled Calcium Oxalate Crystal Cancelled Uric Acid Crystals Cancelled Triple Phos Crystals Cancelled Other Crystals Cancelled Amorphous Sediment Cancelled Present A Granular Casts Cancelled 1-5 H Waxy Casts Cancelled RBC Casts Cancelled WBC Casts Cancelled Other Casts Cancelled Urine Mucus Cancelled Urine Other Cancelled Urine Trichomonas Cancelled Urine Yeast Cancelled Not Reportable Urine Sperm Cancelled Ur Oval Fat Bodies Cancelled Medications Administered Active Medications Generic Name Dose Route Start Last Admin Trade Name Freq PRN Reason Stop Dose Admin Acetaminophen 650 mg 11/06/19 20:25 11/08/19 02:09 Tylenol PO 12/06/19 20:24 650 mg Q4H PRN Administration Pain or Fever Al Hydrox/Mg Hydrox/Simethicone 15 ml 11/06/19 20:25 Maalox PO 12/06/19 20:24 Q4H PRN Dyspepsia Aspirin 81 mg 11/06/19 21:00 11/09/19 08:46 Ecotrin Ectab PO 12/06/19 20:59 81 mg BID YVONNE Administration Carvedilol 12.5 mg 11/08/19 11:15 11/09/19 08:46 Coreg PO 12/08/19 11:14 12.5 mg BID YVONNE Administration Dextrose 25 - 50 ml 11/06/19 20:25 Dextrose 50% IV 12/06/19 20:24 UD PRN Hypoglycemia Protocol Protocol Fish Oil 1 gm 11/07/19 21:00 11/09/19 08:46 [place]-3 (Purified Fish Oil) PO 12/07/19 20:59 1 gm BID VYONNE Administration Furosemide 20 mg 11/10/19 09:00 Lasix PO 12/10/19 08:59 QAM YVONNE Glucagon 1 mg 11/06/19 20:25 Glucagen SQ 12/06/19 20:24 UD PRN Hypoglycemia Protocol Protocol Glucose 4 - 8 tabs 11/06/19 20:25 Dex4 Glucose PO 12/06/19 20:24 UD PRN Hypoglycemia Protocol Protocol Glucose 15 - 30 gm 11/06/19 20:25 Glucose 40% PO 12/06/19 20:24 UD PRN Hypoglycemia Protocol Protocol Hydralazine HCl 10 mg 11/07/19 09:15 11/07/19 23:03 Apresoline PO 12/07/19 09:14 10 mg QID PRN Administration bp greater than 160/90 Insulin Glargine 20 units 11/08/19 21:00 11/08/19 20:37 Lantus Solostar Pen SC 12/08/19 20:59 20 units HS YVONNE Administration Protocol Insulin Human Lispro 0 units 11/07/19 07:30 11/09/19 08:47 Humalog SC 12/07/19 07:29 7 units ACHS YVONNE Administration Protocol Magnesium Hydroxide 30 ml 11/06/19 20:25 11/08/19 16:07 Milk Of Magnesia PO 12/06/19 20:24 30 ml Q12H PRN Administration Constipation Miscellaneous 15 - 30 gm 11/06/19 20:25 Carbohydrates For Hypoglycemia PO 12/06/19 20:24 UD PRN Hypoglycemia Protocol Miscellaneous Information 1 ea 11/06/19 20:53 Consult Glycemic Management Pharmacy N/A 12/06/19 20:52 UD PRN Consult Protocol Nifedipine 30 mg 11/08/19 12:00 11/09/19 08:46 Procardia Xl PO 12/08/19 11:59 30 mg QAM YVONNE Administration Nitroglycerin 0.4 mg 11/06/19 22:49 11/07/19 04:01 Nitrostat SL 12/06/19 22:48 0.4 mg PRN PRN Administration Angina Oxycodone/Acetaminophen 1 tab 11/06/19 20:25 Percocet 5mg/325mg PO 11/20/19 20:24 Q4H PRN Pain Polyethylene Glycol 17 gm 11/06/19 20:25 Miralax Powder Packet PO 12/06/19 20:24 DAILY PRN Constipation Rosuvastatin Calcium 40 mg 11/06/19 21:00 11/08/19 20:31 Crestor PO 12/06/19 20:59 40 mg HS YVONNE Administration Ticagrelor 90 mg 11/06/19 21:00 11/09/19 08:47 Brilinta PO 12/06/19 20:59 90 mg BID YVONNE Administration PG Care Time/CCT Total # of Minutes Spent Total Time Spent with Patient: Total time spent is greater than 50% in coordination of care (as documented) at patient's floor/unit and/or counseling patient: (1) Chest pain Chest pain type: precordial pain Qualified Code(s): R07.2 - Precordial pain (2) CAD (coronary artery disease) Coronary Disease-Associated Artery/Lesion type: [place] artery [place] vs. transplanted heart: [place] heart Associated angina: without angina Qualified Code(s): I25.10 - Atherosclerotic heart disease of [place] coronary artery without angina pectoris
--- NOTE | 2019-11-09 12:48 | Ultrasound Report ---
DOPPLER ULTRASOUND OF THE RENAL ARTERIES CLINICAL HISTORY: Acute renal insufficiency. Hypertension. COMPARISON STUDY: Abdominal CT dated 11/06/2019. TECHNIQUE: Doppler sonography of the renal arteries was performed to assess renal artery stenosis. Im ages are reviewed in the transverse and longitudinal planes. FINDINGS: The kidneys are atrophic and without hydronephrosis. The right kidney measures 11.0 cm in length and the left kidney measures 9.4 cm in length. A 5.6 cm cyst arises from the lower pole the right kidney. A 1.2 cm cyst is noted in the left lower pole. On the right, intrarenal arterial resistive indices measure 1.0 throughout. Intrarenal arterial wavef orms are normal with brisk upstrokes. The right renal arterial waveform is normal, and velocities wit hin the right renal artery measure up to 151 cm/sec. The right renal vein is patent. On the left, intrarenal arterial resistive indices measure 1.0 throughout. Intrarenal arterial wavef orms are normal with brisk upstrokes. The left renal arterial waveform is normal, and velocities with in the left renal artery measure up to 107 cm/sec. The left renal vein is patent. The patient's left renal stent is not well-visualized. The abdominal aorta is patent. Velocities within the abdominal aorta measure up to 130 cm/s. IMPRESSION: 1. The kidneys are atrophic and without hydronephrosis. 2. There is no sonographic evidence of renal artery stenosis. ACT 112: Negative or not required by law. Electronically signed by: Carlos A Nazario M.D. 11/09/2019 12:46 PM
[2019-11-09] MEDS ORDERED: POTASSIUM CHLORIDE 20 MEQ TABCR PO STA (13:26)
--- NOTE | 2019-11-09 13:29 | Hospitalist Progress Note ---
Date of Service November 09, 2019 Assessment & Plan (1) Chest pain: Continue on telemetry for observation for chest pain Vital signs every 4 hours Trend troponin x3 with EKG, trending down 0.131--> 0.139--> 0.115 TTE result normal ventricular size and systolic function. Ejection fraction 65 to 70%. No regional wall motion abnormality. Severe concentric left ventricular hypertrophy. Mild aortic stenosis. Mild mitral regurgitation. Normal estimated right ventricular systolic pressure 26 mmHg compared to prior study of July 12, 2018 transvalvular aortic velocity gradient have increased. Appreciate cardiology recommendations DVT prophylaxis teds and SCD Full code (2) Elevated troponin: Likely elevated due to hypertensive emergency when patient presented in the ER, in addition to poor clearance due to worsening CKD stage III. Demand ischemia. Patient blood pressure was 229/83 on the entrance to the ER. Her blood pressure was controlled with clonidine 0.2 mg x 1 Continue hydralazine 10 mg p.o. 4 times daily as needed for systolic blood pressure over 160 and diastolic blood pressure over 90. Continue telemetry. Dr. Sandoval continued nifedipine 30 mg extended release p.o. every morning Dr. Del Cid recommended to titrate carvedilol 12.5 twice a day today. Nitroglycerin 0.4 mg as needed as needed for angina. (3) Hypertensive emergency: Patient was treated in the emergency room with clonidine 0.2 mg p.o. x1. That decrease her blood pressure to 134/76. Patient had another episode of hypertensive urgency last night when Procardia was given and 10 mg of hydralazine. Preferably will try to keep blood pressure below 160 and diastolic below 90, without trying to overdo it. Continue home medicine aspirin 81 mg p.o. twice daily, carvedilol 12.5 mg p.o. twice daily Furosemide switched to 20 mg PO daily per Continue nifedipine 30 mg p.o. every morning Continue monitoring strict in and outs and daily weight. Renal artery stenosis: RA duplex today-pending (4) Chronic heart failure with preserved ejection fraction (HFpEF): Strict in and out, Daily weight BNP is elevated to 5767 partially due to developing congestive heart failure and due to poor kidney clearance with worsening CKD stage III. Low-salt diet Restrict p.o. fluids to 1200 mils per day P.o. furosemide switched to 20 mg PO daily (5) Diabetes mellitus: A1c 6.7 Use two thirds of basal insulin from home dose and sliding scale insulin to prevent developing hypoglycemia while patient in the hospital. Accu-Cheks before meals and at bedtime. Deferred Glycemic control to pharmacy (6) Hypertension: As discussed above (7) CAD (coronary artery disease): Continue home medicine Carvedilol 12.5 mg p.o. every afternoon Rosuvastatin 40 mg p.o. nightly Ticagrelor 90 mg p.o. twice daily Continue Fish oil 1 capsule p.o. twice daily. Patient would need tighter glycemic control. Aspirin 81 mg p.o. twice daily (8) Hyperlipidemia: Lipid panel : While patient total cholesterol is low proportion between good and bad cholesterol is 4. Patient would need to work on improving her good cholesterol, with either weight loss exercises and dieting. Placed dietitian consult. Continue rosuvastatin 40 mg p.o. nightly and omega 3 fish oil 1 capsule p.o. daily (9) Acute on chronic renal failure: Creatinine/GFR 2.7/17.3--> 2.65/17.7-->2.88/16 fluctuating Avoid nephrotoxic agents Continue monitoring creatinine and GFR Disposition Home with family Subjective No acute events overnight. Ayana feels reasonably well this morning. She was ambulating in the hallway with PT. LE edema persists. She denies any chest pain or palpitations. She denies significant dyspnea or orthopnea. She denies any urinary symptoms. She denies lightheadedness, dizziness, syncope or presyncope. Review of Systems Review of Systems: All systems reviewed & are unremarkable except as noted in HPI & below Physical Exam Constitutional: WD/WN, vitals as above well developed Eyes: PERRL, conjunctivae normal, anicteric sclerae ENMT: external ear and nose normal, oropharynx normal Neck: trachea midline, no thyromegaly Respiratory: normal respiratory effort, lungs clear to auscultation Cardiovascular: RRR, no murmur, no edema Vessels: dorsalis pedis pulses present Extremities: + pedal edema Gastrointestinal (Abdomen): Inspection/Auscultation: abdomen normal to inspection and + abdomen distended Percussion/Palpation: + abdomen tender and abdomen soft Musculoskeletal: no cyanosis or clubbing, extremities motor strength 5/5 Skin: no rashes, warm and dry Neurologic: patellar DTR's 2+ bilat, sensation intact Psychiatric: A+Ox3, euthymic affect Lymphatic: no cervical or axillary lymphadenopathy Results & Data Vital Signs (Past 12 Hours) Vital Signs Temp Pulse Pulse Resp BP Pulse Ox 11/09/19 11:43 36.7 C 58 L 20 158/90 H 99 11/09/19 07:37 36.3 C L 73 18 138/77 97 11/09/19 04:31 36.6 C 60 18 121/71 97 11/09/19 02:36 57 L PG Care Time/CCT Total # of Minutes Spent Total Time Spent with Patient: Total time spent is greater than 50% in coordination of care (as documented) at patient's floor/unit and/or counseling patient: (1) CAD (coronary artery disease) Associated angina: without angina Coronary Disease-Associated Artery/Lesion type: [place] artery [place] vs. transplanted heart: [place] heart Qualified Code(s): I25.10 - Atherosclerotic heart disease of [place] coronary artery without angina pectoris (2) Hyperlipidemia Hyperlipidemia type: unspecified Qualified Code(s): E78.5 - Hyperlipidemia, unspecified (3) Chest pain Chest pain type: precordial pain Qualified Code(s): R07.2 - Precordial pain
[2019-11-09] MEDS: ACETAMINOPHEN 325 MG TAB PO PRN (16:54)
[2019-11-09] MEDS: ROSUVASTATIN CALCIUM 20 MG TAB PO SCH (21:07)
[2019-11-09] MEDS: INSULIN GLARGINE SOLOSTAR 100 UNITS/ML 3 ML PEN SC SCH (21:09)
[2019-11-10 08:20] LABS: Basophils # (auto) 0.03 K/uL (0-0.2); Basophils % (auto) 0.3 %; Eosinophils # (auto) 0.52 K/uL (0-0.5); Eosinophils % (auto) 5.3 %; Hematocrit (blood only) 33.9 % (37-47); Hemoglobin 11.1 g/dL (12.0-16.0); Immature Granulocytes # (auto) 0.03 K/uL (0.00-0.02); Immature Granulocytes % (auto) 0.3 %; Lymphocytes # (auto) 1.59 K/uL (1.2-3.4); Lymphocytes % (auto) 16.2 %; Mean Corpuscular Hemoglobin 27.6 pg (25-34); Mean Corpuscular Hgb Conc 32.7 g/dL (32-36); Mean Corpuscular Volume 84.3 fL (80-100); Mean Platelet Volume 11.8 fL (7.4-10.4); Monocytes # (auto) 0.56 K/uL (0.11-0.59); Monocytes % (auto) 5.7 %; Neutrophils % (auto) 72.2 %; Platelet Count 241 K/uL (130-400); RDW Coefficient of Variation 15.1 % (11.5-14.5); RDW Standard Deviation 46.7 fL (36.4-46.3); Red Blood Count 4.02 M/uL (4.2-5.4); White Blood Count 9.83 K/uL (4.8-10.8)
--- NOTE | 2019-11-10 08:40 | Pharmacy Report ---
Pharmacy Glycemic Short Note 2 - Date of Service November 10, 2019 - Glycemic Short BSG Results (Last 24 hours): 11/09/19 11/09/19 11/09/19 12:01 16:50 20:31 POC Glucose 172 H 141 H 175 H 11/10/19 07:51 POC Glucose 128 H OUTPATIENT ANTIDIABETIC REGIMEN: * Humalog 10 units with breakfast, 20 units with lunch and dinner * Lantus BID per sliding scale - per patient, she does not always take this * A1c = 6.7 % 11/07/19 The patient is currently receiving: * Basal insulin: Lantus 20 units qhs (with 1/2 dose for BSG < 140) * Correctional Insulin: Novolog Correction per scale ACHS Goal Range: Low 110 mg/dL - High 140 mg/dL Correction Factor: 25 mg/dL/unit * Prandial insulin: Per carb ratio of 1 unit per 8 grams CHO consumed - Assessment & Plan ASSESSMENT: 11/10 * BSGs remain well controlled with current insulin orders - no changes today * Renal fxn appeared to have worsened yesterday, results of SCr not yet available this AM; if worsening renal fxn - may need to scale back insulin doses 11/09 * BSGs well controlled over last 24 hrs * Fasting BSG 146 this AM with 20 units basal on board - this is near goal, thus will continue for now * Post-prandial BSGs well controlled yesterday with current CR / CF - will continue 11/08 * BSGs stable over the past 24 hours * Patient received 20 units of basal and 13 units of prandial insulin * Clinical dietitian spoke with patient re: carb coverage with meals. Patient amenable to T1DM but did not want carb restriction with T2DM diet. Outpatient Humalog doses use CF 20, CR 7, so this is comparable to current inpatient dosing. She typically does not use correctional at HS but tolerated this last night so will continue for now. 11/07 * 69 y/o F admitted for CP, hypertensive emergency and abdominal pain. PMH notable for T2DM, HFpEF, CKD. A1c well controlled; however, may not be reliable in CKD. 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 BSGs were in range in the ED but increased to the 200s last night. She received 20 units of Lantus last night with fasting BSG of 116 mg/dL this AM. SCr remains elevated from baseline. * Dietitian notified me that patient refused carb counting and wanted a regular diet. Dietitian was going to speak with patient to obtain more information. Patient will require carb counting for appropriate insulin dosing. PLAN FOR INPATIENT GLYCEMIC CONTROL: * Basal insulin - no change * Lantus 20 units SQ qHS * Bolus insulin - no change * NovoLog per scale ACHS or Q6hrs while NPO * Goal Range: Low 110 mg/dL - High 140 mg/dL * Correction Factor: 25 mg/dL/unit * Nutritional / Prandial insulin per carb ratio of 1 unit per 8 grams CHO consumed PLAN FOR DISCHARGE: * A1c = 6.7% on 11/07/19 * Goal A1c < 7% based on age/comorbidities * Recommend to resume outpatient regimen on discharge if patient's clinical status / renal fxn return to baseline
[2019-11-10] MEDS: carvediloL 12.5 MG TAB PO SCH ×2 (08:50→21:10)
[2019-11-10] MEDS: OMEGA-3 (PURIFIED FISH OIL) 1 GM CAP PO SCH ×2 (08:50→21:10)
[2019-11-10] MEDS: NIFEdipine EXTENDED REL 30 MG TABCR PO SCH (08:50)
[2019-11-10] MEDS: INSULIN HUMAN LISPRO (humaLOG) 100 UNITS/ML VIAL SC SCH ×4 (08:50→21:12)
[2019-11-10] MEDS: FUROSEMIDE 20 MG TAB PO SCH (08:51)
[2019-11-10] MEDS: TICAGRELOR 90 MG TAB PO SCH (08:51)
[2019-11-10] MEDS: ASPIRIN 81 MG ECTAB PO SCH ×2 (08:53→21:09)
[2019-11-10 09:05] LABS: Albumin Level 2.8 gm/dl (3.4-5.0); BUN Creatinine Ratio 25.7 (10-20); Calcium 9.2 mg/dl (8.5-10.1); Creatinine Clr Calc Pharmacy 17.8 ml/min; Est GFR (African American) 15.6; Est GFR (Non-African American) 13.5; Potassium 4.1 mmol/L (3.5-5.1)
[2019-11-10] MEDS: ACETAMINOPHEN 325 MG TAB PO PRN (16:01)
[2019-11-10] MEDS ORDERED: CLOPIDOGREL BISULFATE 300 MG TAB PO STA (18:43)
--- NOTE | 2019-11-10 18:50 | Nephrology Progress Note ---
Date of Service November 10, 2019 Assessment & Plan (1) Acute on chronic renal failure: In the setting of accelerated hypertension. Clinical history and urine studies (granular casts) consistent with ATN. Unclear if Brilinta may have contributed. CK is elevated and rising. Brilinta switched to Plavix. Crestor held. Document I/O's. Repeat urine microscopy acellular Renal artery duplex negative for stenosis. Furosemide provided to encourage negative fluid balance, unfortunately creatinine has remains elevated and CK excessive. (2) CKD (chronic kidney disease) stage 3, GFR 30-59 ml/min: CKD III-IV at baseline. Serum creatinine at baseline is approximately 2.2 mg/dL. 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 Multiple episodes of TIFFANY with accelerated hypertension and volume overload. (3) Renal artery stenosis: RA duplex reviewed. (4) CAD (coronary artery disease): Brilinta switched to Plavix today. Cardiology consultation appreciated. (5) Chronic heart failure with preserved ejection fraction (HFpEF): Ultimately, will plan to restart losartan but deferred at this time pendi ng improvement in kidney function. Spironolactone likewise deferred. (6) Hypertensive emergency: Carvedilol 12.5 mg twice daily. Continue nifedipine 30 mg daily. Furosemide held yesterday due to worsening renal function. 20 mg Furosemide provided this AM. Subjective No acute events overnight. Ayana feels reasonably well this morning. She was ambulating in the hallway with PT. LE edema persists. She denies any chest pain or palpitations. She denies significant dyspnea or orthopnea. She denies any uri nary symptoms. She denies lightheadedness, dizziness, syncope or presyncope. Review of Systems Constitutional: + fatigue and + weakness; no body aches, no anorexia and no weight gain Eyes: no problem reported Ear, Nose, Mouth, Throat: no problem reported Respiratory: no dyspnea and no dyspnea on exertion Cardiovascular: + edema; no chest pain, no orthopnea, no palpitations and no lightheadedness Gastrointestinal: + constipation; no abdominal pain Genitourinary: no problem reported Musculoskeletal: + joint pain; no body aches Integumentary: no problem reported Neurologic: no problem reported Psychiatric: no problem reported Endocrine: no problem reported Physical Exam Constitutional: well developed and + morbidly obese; not edematous Eyes: + anicteric sclerae; no conjunctival abnormality ENMT: Mouth: no oral mucosal abnormality and oral mucous membranes not dry Neck: normal visual inspection, trachea midline and + thick neck Respiratory: normal respiratory effort Auscultation: lungs clear to auscultation bilaterally Cardiovascular: Rate/Rhythm: regular rate Heart Sounds: normal S1 and normal S2 Extremities: + edema Gastrointestinal (Abdomen): Percussion/Palpation: abdomen soft; abdomen nontender Musculoskeletal: Extremities: no cyanosis and no clubbing Skin: normal turgor; no lesions Neurologic: Motor/Sensory: no tremor and no asterixis Psychiatric: Orientation: alert and oriented x 3 Results & Data Vital Signs (Past 12 Hours) Vital Signs Temp Pulse Resp BP Pulse Ox 11/10/19 15:26 37.1 C 73 17 176/82 H 96 11/10/19 11:07 36.8 C 64 18 173/72 H 98 11/10/19 07:27 36.5 C 60 18 161/75 H 97 Laboratory Results Laboratory Results - last 24 hr 11/09/19 11/10/19 11/10/19 20:31 07:51 07:58 WBC RBC Hgb Hct MCV MCH MCHC RDW Std Deviation RDW Coeff of Ekaterina Plt Count MPV Immature Gran % (Auto) Neut % (Auto) Lymph % (Auto) [place] % (Auto) Eos % (Auto) Baso % (Auto) Immature Gran # (Auto) Neut # (Auto) Lymph # (Auto) [place] # (Auto) Eos # (Auto) Baso # (Auto) Sodium Potassium Chloride Carbon Dioxide Anion Gap BUN Creatinine Est Cr Clr Drug Dosing Est GFR ( Amer) Est GFR (Non-Af Amer) BUN/Creatinine Ratio Glucose POC Glucose 175 H 128 H Calcium Phosphorus Total Creatine Kinase 3085 H Albumin 11/10/19 11/10/19 11/10/19 07:58 07:58 11:38 WBC 9.83 RBC 4.02 L Hgb 11.1 L Hct 33.9 L MCV 84.3 MCH 27.6 MCHC 32.7 RDW Std Deviation 46.7 H RDW Coeff of Ekaterina 15.1 H Plt Count 241 MPV 11.8 H Immature Gran % (Auto) 0.3 Neut % (Auto) 72.2 Lymph % (Auto) 16.2 [place] % (Auto) 5.7 Eos % (Auto) 5.3 Baso % (Auto) 0.3 Immature Gran # (Auto) 0.03 H Neut # (Auto) 7.10 H Lymph # (Auto) 1.59 [place] # (Auto) 0.56 Eos # (Auto) 0.52 H Baso # (Auto) 0.03 Sodium 140 Potassium 4.1 D Chloride 109 H Carbon Dioxide 22 Anion Gap 9.0 BUN 85 H Creatinine 3.32 H Est Cr Clr Drug Dosing 17.8 Est GFR ( Amer) 15.6 Est GFR (Non-Af Amer) 13.5 BUN/Creatinine Ratio 25.7 H Glucose 138 H POC Glucose 169 H Calcium 9.2 Phosphorus 5.0 H Total Creatine Kinase Albumin 2.8 L 11/10/19 16:20 WBC RBC Hgb Hct MCV MCH MCHC RDW Std Deviation RDW Coeff of Ekaterina Plt Count MPV Immature Gran % (Auto) Neut % (Auto) Lymph % (Auto) [place] % (Auto) Eos % (Auto) Baso % (Auto) Immature Gran # (Auto) Neut # (Auto) Lymph # (Auto) [place] # (Auto) Eos # (Auto) Baso # (Auto) Sodium Potassium Chloride Carbon Dioxide Anion Gap BUN Creatinine Est Cr Clr Drug Dosing Est GFR ( Amer) Est GFR (Non-Af Amer) BUN/Creatinine Ratio Glucose POC Glucose 139 H Calcium Phosphorus Total Creatine Kinase Albumin PG Care Time/CCT Total # of Minutes Spent Total Time Spent with Patient: Total time spent is greater than 50% in coordination of care (as documented) at patient's floor/unit and/or counseling patient: (1) CAD (coronary artery disease) Coronary Disease-Associated Artery/Lesion type: [place] artery [place] vs. tra nsplanted heart: [place] heart Associated angina: without angina Qualified Code(s): I25.10 - Atherosclerotic heart disease of [place] coronary artery without angina pectoris
--- NOTE | 2019-11-10 18:58 | Hospitalist Progress Note ---
Date of Service November 10, 2019 Assessment & Plan (1) Chest pain: Chest pain resolved. TTE result normal ventricular size and systolic function. Ejection fraction 65 to 70%. No regional wall motion abnormality. Severe concentric left ventricular hypertrophy. Mild aortic stenosis. Mild mitral regurgitation. Normal estimated right ventricular systolic pressure 26 mmHg compared to prior study of July 12, 2018 transvalvular aortic velocity gradient have increased. Appreciate cardiology recommendations: Continue hydralazine, Procardia and carvedilol. Troponin is elevated chronically. Patient's troponin was elevated in 2006. Patient did not present with acute coronary syndrome. Likely due to severe LVH, hypertension, CKD stage III and underlying coronary artery disease. Cardiology concluded that no further ischemic work-up is needed at this time. Continue to optimize her blood pressure. They recommended to continue Brilinta for at least 1 year given prior PCI in September 2019. Patient also needs to continue aspirin 81 daily indefinitely. Even though cardiology recommended to continue high intensity statin therapy Rosuvastatin 40 mg p.o. daily we have to hold it since high CPK 3085. DVT prophylaxis teds and SCD Full code (2) Elevated troponin: Likely elevated due to hypertensive emergency when patient presented in the ER, in addition to poor clearance due to worsening CKD stage III. Demand ischemia. Patient blood pressure was 229/83 on the entrance to the ER. Her blood pressure was controlled with clonidine 0.2 mg x 1 Continue hydralazine 10 mg p.o. 4 times daily as needed for systolic blood pressure over 160 and diastolic blood pressure over 90. Continue telemetry. Dr. Sandoval continued nifedipine 30 mg extended release p.o. every morning Dr. Del Cid recommended to titrate carvedilol 12.5 twice a day. Nitroglycerin 0.4 mg as needed as needed for angina. (3) Hypertensive emergency: Resolved Renal artery stenosis: The kidneys are atrophic and without hydronephrosis. There is no sonographic evidence of renal artery stenosis (4) Chronic heart failure with preserved ejection fraction (HFpEF): Strict in and out, Daily weight BNP is elevated to 5767 -->2571 most likely partially due to developing congestive heart failure and due to poor kidney clearance with worsening CKD stage III. Low-salt diet Restrict p.o. fluids to 1200 mils per day which patient refused P.o. furosemide switched to 20 mg PO daily (5) Diabetes mellitus: A1c 6.7 Use two thirds of basal insulin from home dose and sliding scale insulin to prevent developing hypoglycemia while patient in the hospital. Accu-Cheks before meals and at bedtime. Deferred Glycemic control to pharmacy (6) Hypertension: As discussed above (7) CAD (coronary artery disease): Continue home medicine Carvedilol 12.5 mg p.o. every afternoon Rosuvastatin 40 mg p.o. nightly Ticagrelor 90 mg p.o. twice daily, patient insisted to stop it and switch to Plavix. Patient and her son are planning to have a conference with Dr. Perez from [facility] [place] in [place] Dr. Sandoval and hospitalist at 10 AM tomorrow. Continue Fish oil 1 capsule p.o. twice daily. Patient would need tighter glycemic control. Aspirin 81 mg p.o. twice daily (8) Hyperlipidemia: Lipid panel : While patient total cholesterol is low proportion between good and bad cholesterol is 4. Patient would need to work on improving her good cholesterol, with either weight loss exercises and dieting. Appreciate dietitian consult and recommendations. Continue rosuvastatin 40 mg p.o. nightly and omega 3 fish oil 1 capsule p.o. juaquin ly (9) Acute on chronic renal failure: Creatinine/GFR 2.7/17.3--> 2.65/17.7-->2.88/16-->3.32/13.5 fluctuating Avoid nephrotoxic agents Continue monitoring creatinine and GFR Disposition Home with family (10) Discharge planning issues: Once when patient is clinically stable she can be discharged home with her family. Present on Admission?: Yes Subjective No acute events overnight. Patient is slowly improving. She was cooperating with Physical and Occupational Therapy. She continues to have lower extremities edema. Patient refused to comply with p.o. intake restriction 2 days ago. P.o. intake is good. Patient denies fever, chills, chest pain, shortness of breath, lightheadedness, dizziness, syncope, presyncope, dyspnea, orthopnea, abdominal pain, urgency, frequency. All new results are reviewed with the patient and all questions answered. Review of Systems Review of Systems: All systems reviewed & are unremarkable except as noted in HPI & below Physical Exam Constitutional: WD/WN, vitals as above well developed Eyes: PERRL, conjunctivae normal, anicteric sclerae ENMT: external ear and nose normal, oropharynx normal Neck: trachea midline, no thyromegaly Respiratory: normal respiratory effort, lungs clear to auscultation Cardiovascular: RRR, no murmur, no edema Vessels: dorsalis pedis pulses present (1+ pitting edema bilaterally) Extremities: + pedal edema Gastrointestinal (Abdomen): normal bowel sounds, soft, nontender, no hepatosplenomegaly Inspection/Auscultation: abdomen normal to inspection; abdomen not distended Percussion/Palpation: abdomen nontender and + abdomen not soft Musculoskeletal: no cyanosis or clubbing, extremities motor strength 5/5 Skin: no rashes, warm and dry Neurologic: patellar DTR's 2+ bilat, sensation intact Psychiatric: A+Ox3, euthymic affect Lymphatic: no cervical or axillary lymphadenopathy Results & Data Vital Signs (Past 12 Hours) Vital Signs Temp Pulse Resp BP Pulse Ox 11/10/19 15:26 37.1 C 73 17 176/82 H 96 11/10/19 11:07 36.8 C 64 18 173/72 H 98 11/10/19 07:27 36.5 C 60 18 161/75 H 97 PG Care Time/CCT Total # of Minutes Spent Total Time Spent with Patient: Total time spent is greater than 50% in coordination of care (as documented) at patient's floor/unit and/or counseling patient: (1) Chest pain Chest pain type: precordial pain Qualified Code(s): R07.2 - Precordial pain (2) CAD (coronary artery disease) Coronary Disease-Associated Artery/Lesion type: [place] artery [place] vs. transplanted heart: [place] heart Associated angina: without angina Qualified Code(s): I25.10 - Atherosclerotic heart disease of [place] coronary artery without angina pectoris (3) Hyperlipidemia Hyperlipidemia type: unspecified Qualified Code(s): E78.5 - Hyperlipidemia, unspecified
[2019-11-10] MEDS: INSULIN GLARGINE SOLOSTAR 100 UNITS/ML 3 ML PEN SC SCH (21:11)
[2019-11-10 21:13] LABS: Appearance Urine Turbid (Clear); Bilirubin Urine Negative (Negative); Blood Urine 3+ (Negative); Color Urine Yellow; Epithelial Cell Urine Auto >30 /lpf (0-5); Glucose Urine UA Negative (Negative); Ketones Urine Negative (Negative); Leukocyte Esterase Urine Trace (Negative); Nitrite Urine Negative (Negative); Protein Urine 2+ (Negative); RBC Urine Automated 0-4 /hpf (0-4); Specific Gravity Urine 1.017 (1.000-1.030); Urobilinogen Urine Negative (Negative)
[2019-11-10 21:29] LABS: Amorphous Sediment Urine Present (None Prsent); Bacteria Urine Automated 1+ (Negative)
[2019-11-11 08:21] LABS: Basophils # (auto) 0.03 K/uL (0-0.2); Basophils % (auto) 0.3 %; Eosinophils # (auto) 0.54 K/uL (0-0.5); Eosinophils % (auto) 5.6 %; Hematocrit (blood only) 32.7 % (37-47); Hemoglobin 10.6 g/dL (12.0-16.0); Immature Granulocytes # (auto) 0.03 K/uL (0.00-0.02); Immature Granulocytes % (auto) 0.3 %; Lymphocytes # (auto) 1.42 K/uL (1.2-3.4); Lymphocytes % (auto) 14.8 %; Mean Corpuscular Hemoglobin 27.5 pg (25-34); Mean Corpuscular Hgb Conc 32.4 g/dL (32-36); Mean Corpuscular Volume 84.7 fL (80-100); Mean Platelet Volume 11.6 fL (7.4-10.4); Monocytes # (auto) 0.71 K/uL (0.11-0.59); Monocytes % (auto) 7.4 %; Neutrophils # (auto) 6.88 K/uL (1.4-6.5); Neutrophils % (auto) 71.6 %; Platelet Count 245 K/uL (130-400); RDW Coefficient of Variation 15.4 % (11.5-14.5); RDW Standard Deviation 47.4 fL (36.4-46.3); Red Blood Count 3.86 M/uL (4.2-5.4); White Blood Count 9.61 K/uL (4.8-10.8)
[2019-11-11] MEDS: ASPIRIN 81 MG ECTAB PO SCH ×2 (08:50→20:45)
[2019-11-11] MEDS: FUROSEMIDE 20 MG TAB PO SCH (08:50)
[2019-11-11] MEDS: NIFEdipine EXTENDED REL 30 MG TABCR PO SCH (08:50)
[2019-11-11] MEDS: CLOPIDOGREL BISULFATE 75 MG TAB PO SCH (08:50)
[2019-11-11 08:51] LABS: Albumin Level 2.8 gm/dl (3.4-5.0); BUN Creatinine Ratio 23.6 (10-20); Calcium 8.9 mg/dl (8.5-10.1); Est GFR (African American) 14.3; Est GFR (Non-African American) 12.3
[2019-11-11] MEDS: carvediloL 12.5 MG TAB PO SCH ×2 (08:51→20:45)
[2019-11-11] MEDS: OMEGA-3 (PURIFIED FISH OIL) 1 GM CAP PO SCH ×2 (08:51→20:46)
[2019-11-11] MEDS: INSULIN HUMAN LISPRO (humaLOG) 100 UNITS/ML VIAL SC SCH ×4 (08:51→20:46)
[2019-11-11 08:54] LABS: Albumin Globulin Ratio 0.7 (0.9-2); Bilirubin,Total 0.4 mg/dl (0.2-1); Globulin 4.3 gm/dl (2.5-4.0); Total Protein 7.1 gm/dl (6.4-8.2)
--- NOTE | 2019-11-11 09:14 | Cardiology Progress Note ---
Date of Service November 11, 2019 Assessment & Plan (1) Chest pain: (2) Elevated troponin: (3) Hypertensive emergency: (4) Chronic heart failure with preserved ejection fraction (HFpEF): (5) CAD (coronary artery disease): (6) H/O heart artery stent: (7) LVH (left ventricular hypertrophy): ASSESSMENT/PLAN: 1. Hypertensive Emergency: Blood pressure a bit more elevated yesterday and this morning compared to the previous day or 2. She is also no longer on her diuretic, which could account for increase in her blood pressure. Her diuretic is being managed by Nephrology. Continue Procardia and Carvedilol. She has severe LVH, likely hypertensive heart disease, and known underlying CAD, which likely accounted for her chest discomfort on presentation. She has not had any further chest discomfort. Nephrology will continue managing her antihypertensive agents at this time. 2. Elevated Troponin, chronic: She chronically has low level elevated troponin as far back as 2006. She did not present with acute coronary syndrome. Stable findings on echo. It is very unlikely that she thrombosed her RCA stent as she does not have ST elevations, new wall motion abnormalities, and ongoing symptoms. Likely due to her severe LVH, hypertension, and CKD, with underlying CAD. No need for further ischemic workup at this time. Continue blood pressure management. 3. CAD s/p PCI (Cx and RCA): Her chest pain was likely due to severe hypertension in the setting of severe LVH and underlying CAD. This does not likely represent acute coronary syndrome/unstable plaque/stent thrombosis. Continue to optimize hypertensive regimen. Continue Aspirin 81 mg daily indefinitely. She refused Brilinta yesterday. Dr. Sandoval of Nephrology contacted me last evening and we discussed Plavix. It was recommended to load her with 300 mg of Plavix x1 yesterday and then resume Plavix 75 mg today. Continue dual anti-platelet therapy as she has had recent PCI in September of 2019. Statin therapy is being held due to elevated CK levels. Continue beta-fartun therapy. She has not tolerated nitrate therapy in the past. 4. Chronic Diastolic CHF: Her legs are a bit more edematous today but she has not been on her usual daily Lasix due to her renal insufficiency. She also is now on calcium channel fartun which did cause some swelling in the past per her report. She did not present with a CHF exacerbation. Diuretic is now being managed by Nephrology given her worsening renal function. Low-sodium diet. 5. Elevated CK: Etiology uncertain. Could be from statin use however she has been on statin long-term. She states that there has not been any recent changes to her dose of Crestor. Hold Crestor for now. Further evaluation as per primary service. 6. Disposition: Cardiology will sign off at this time. Patient care has been discussed with Dr. Sandoval and also Dr. carbone the other primary hospitalist service. Please call with any other questions or concerns. When discharged, she should follow-up with her primary vascular manager, Dr. Knott. Subjective She feels better today. Yesterday she felt myalgias in her upper and lower extremities. The day prior to that she ambulated in the hallway without chest pain. She denies shortness of breath, syncope, near-syncope, palpitations. She states that her legs were more swollen yesterday normal. She denies bleeding. She has a family meeting today at 10:00 a.m. with multiple providers, including Cardiology from [facility] in [facility]. She was informed that I will be in the office at that time but have discussed any active issues from a cardiology standpoint with both Dr. Jaramillo and Dr. Sandoval, who will be attending a meeting. She was alone in her hospital room. Review of systems: As above. Physical Exam Physical Exam: Gen.: No acute distress. Alert and oriented. HEENT: Anicteric sclera. Neck: No appreciable JVD. Cardiac: Regular. No ectopy. Normal S1-S2. 2/6 systolic ejection murmur. No rubs, or gallops. Pulmonary: Clear to auscultation bilaterally without wheezes, rales, or rhonchi. Abdomen: Soft, nondistended, with normoactive bowel sounds. No bruits noted. Extremities: Trace bilateral lower extremity edema. No cyanosis. Psychiatric: Affect appears appropriate. Results & Data Vital Signs (Past 12 Hours) Vital Signs Temp Pulse Pulse Resp BP Pulse Ox 11/11/19 07:14 36.6 C 61 18 156/65 H 94 11/11/19 04:50 36.7 C 66 18 143/73 H 95 11/10/19 23:53 67 11/10/19 22:55 36.8 C 70 20 155/80 H 95 Intake & Output 11/09/19 11/10/19 11/11/19 11/12/19 06:59 06:59 06:59 06:59 Intake Total 815 / 815 535 / 535 870 / 870 Output Total 150 / 150 525 / 525 Balance 665 / 665 535 / 535 345 / 345 Weight 96.5 kg 92.3 kg Laboratory Results Laboratory Results - last 24 hr 11/10/19 11/10/19 11/10/19 07:58 11:38 16:20 WBC RBC Hgb Hct MCV MCH MCHC RDW Std Deviation RDW Coeff of Ekaterina Plt Count MPV Immature Gran % (Auto) Neut % (Auto) Lymph % (Auto) [place] % (Auto) Eos % (Auto) Baso % (Auto) Immature Gran # (Auto) Neut # (Auto) Lymph # (Auto) [place] # (Auto) Eos # (Auto) Baso # (Auto) Sodium Potassium Chloride Carbon Dioxide Anion Gap BUN Creatinine Est Cr Clr Drug Dosing Est GFR ( Amer) Est GFR (Non-Af Amer) BUN/Creatinine Ratio Glucose POC Glucose 169 H 139 H Calcium Total Bilirubin AST ALT Alkaline Phosphatase Total Creatine Kinase 3085 H Total Protein Albumin Globulin Albumin/Globulin Ratio Urine Color Urine Appearance Urine pH Ur Specific [place] Urine Protein Urine Glucose (UA) Urine Ketones Urine Blood Urine Nitrite Urine Bilirubin Urine Urobilinogen Ur Leukocyte Esterase Urine WBC (Auto) Urine RBC (Auto) U Hyaline Cast (Auto) U Epithel Cells (Auto) Urine Bacteria (Auto) Amorphous Sediment Granular Casts Urine Yeast 11/10/19 11/10/19 11/11/19 20:14 20:41 07:33 WBC RBC Hgb Hct MCV MCH MCHC RDW Std Deviation RDW Coeff of Ekaterina Plt Count MPV Immature Gran % (Auto) Neut % (Auto) Lymph % (Auto) [place] % (Auto) Eos % (Auto) Baso % (Auto) Immature Gran # (Auto) Neut # (Auto) Lymph # (Auto) [place] # (Auto) Eos # (Auto) Baso # (Auto) Sodium Potassium Chloride Carbon Dioxide Anion Gap BUN Creatinine Est Cr Clr Drug Dosing Est GFR ( Amer) Est GFR (Non-Af Amer) BUN/Creatinine Ratio Glucose POC Glucose 145 H 133 H Calcium Total Bilirubin AST ALT Alkaline Phosphatase Total Creatine Kinase Total Protein Albumin Globulin Albumin/Globulin Ratio Urine Color Yellow Urine Appearance Turbid A Urine pH 5.0 Ur Specific [place] 1.017 Urine Protein 2+ H Urine Glucose (UA) Negative Urine Ketones Negative Urine Blood 3+ H Urine Nitrite Negative Urine Bilirubin Negative Urine Urobilinogen Negative Ur Leukocyte Esterase Trace H Urine WBC (Auto) 5-10 H Urine RBC (Auto) 0-4 U Hyaline Cast (Auto) 1-5 U Epithel Cells (Auto) >30 H Urine Bacteria (Auto) 1+ H Amorphous Sediment Present A Granular Casts 1-5 H Urine Yeast Not Reportable 11/11/19 11/11/19 08:04 08:04 WBC 9.61 RBC 3.86 L Hgb 10.6 L Hct 32.7 L MCV 84.7 MCH 27.5 MCHC 32.4 RDW Std Deviation 47.4 H RDW Coeff of Ekaterina 15.4 H Plt Count 245 MPV 11.6 H Immature Gran % (Auto) 0.3 Neut % (Auto) 71.6 Lymph % (Auto) 14.8 [place] % (Auto) 7.4 Eos % (Auto) 5.6 Baso % (Auto) 0.3 Immature Gran # (Auto) 0.03 H Neut # (Auto) 6.88 H Lymph # (Auto) 1.42 [place] # (Auto) 0.71 H Eos # (Auto) 0.54 H Baso # (Auto) 0.03 Sodium 141 Potassium 4.0 Chloride 110 H Carbon Dioxide 23 Anion Gap 7.0 BUN 84 H Creatinine 3.57 H Est Cr Clr Drug Dosing 16.0 Est GFR ( Amer) 14.3 Est GFR (Non-Af Amer) 12.3 BUN/Creatinine Ratio 23.6 H Glucose 128 H POC Glucose Calcium 8.9 Total Bilirubin 0.4 AST 91 H ALT 102 H Alkaline Phosphatase 128 H Total Creatine Kinase Total Protein 7.1 Albumin 2.8 L Globulin 4.3 H Albumin/Globulin Ratio 0.7 L Urine Color Urine Appearance Urine pH Ur Specific [place] Urine Protein Urine Glucose (UA) Urine Ketones Urine Blood Urine Nitrite Urine Bilirubin Urine Urobilinogen Ur Leukocyte Esterase Urine WBC (Auto) Urine RBC (Auto) U Hyaline Cast (Auto) U Epithel Cells (Auto) Urine Bacteria (Auto) Amorphous Sediment Granular Casts Urine Yeast Diagnostic Findings Telemetry personally reviewed: Sinus rhythm. There was a Six beat ventricular run this morning at 5:15 a.m.. Medications Administered Current Inpatient Medications Acetaminophen (Tylenol) 650 mg PO Q4H PRN PRN Reason: Pain or Fever Stop: 12/06/19 20:24 Last Admin: 11/10/19 16:01 Dose: 650 mg Documented by: Al Hydrox/Mg Hydrox/Simethicone (Maalox) 15 ml PO Q4H PRN PRN Reason: Dyspepsia Stop: 12/06/19 20:24 Aspirin (Ecotrin Ectab) 81 mg PO BID [facility] Stop: 12/06/19 20:59 Last Admin: 11/11/19 08:50 Dose: 81 mg Documented by: Carvedilol (Coreg) 12.5 mg PO BID [facility] Stop: 12/08/19 11:14 Last Admin: 11/11/19 08:51 Dose: 12.5 mg Documented by: Clopidogrel Bisulfate (Plavix) 75 mg PO QAM [facility] Stop: 12/11/19 08:59 Last Admin: 11/11/19 08:50 Dose: 75 mg Documented by: Dextrose (Dextrose 50%) 25 - 50 ml IV UD PRN; Protocol PRN Reason: Hypoglycemia Protocol Stop: 12/06/19 20:24 Fish Oil ([place]-3 (Purified Fish Oil)) 1 gm PO BID [facility] Stop: 12/07/19 20:59 Last Admin: 11/11/19 08:51 Dose: 1 gm Documented by: Glucagon (Glucagen) 1 mg SQ UD PRN; Protocol PRN Reason: Hypoglycemia Protocol Stop: 12/06/19 20:24 Glucose (Dex4 Glucose) 4 - 8 tabs PO UD PRN; Protocol PRN Reason: Hypoglycemia Protocol Stop: 12/06/19 20:24 Glucose (Glucose 40%) 15 - 30 gm PO UD PRN; Protocol PRN Reason: Hypoglycemia Protocol Stop: 12/06/19 20:24 Hydralazine HCl (Apresoline) 10 mg PO QID PRN PRN Reason: bp greater than 160/90 Stop: 12/07/19 09:14 Last Admin: 11/07/19 23:03 Dose: 10 mg Documented by: Insulin Glargine (Lantus Solostar Pen) 20 units SC [facility]; Protocol Stop: 12/08/19 20:59 Last Admin: 11/10/19 21:11 Dose: 20 units Documented by: Insulin Human Lispro (Humalog) 0 units SC ACHS [facility]; Protocol Stop: 12/07/19 07:29 Last Admin: 11/11/19 08:51 Dose: 8 units Documented by: Magnesium Hydroxide (Milk Of Magnesia) 30 ml PO Q12H PRN PRN Reason: Constipation Stop: 12/06/19 20:24 Last Admin: 11/08/19 16:07 Dose: 30 ml Documented by: Miscellaneous (Carbohydrates For Hypoglycemia) 15 - 30 gm PO UD PRN PRN Reason: Hypoglycemia Protocol Stop: 12/06/19 20:24 Miscellaneous Information (Consult Glycemic Management Pharmacy) 1 ea N/A UD PRN; Protocol PRN Reason: Consult Stop: 12/06/19 20:52 [facility]ed[facility] ([facility]l) [facility] Stop: 12/08/19 11:59 Last Admin: 11/11/19 08:50 Dose: 30 mg Documented by: Nitroglycerin (Nitrostat) 0.4 mg SL PRN PRN PRN Reason: Angina Stop: 12/06/19 22:48 Last Admin: 11/07/19 04:01 Dose: 0.4 mg Documented by: Oxycodone/Acetaminophen (Percocet 5mg/325mg) 1 tab PO Q4H PRN PRN Reason: Pain Stop: 11/20/19 20:24 Polyethylene Glycol (Miralax Powder Packet) 17 gm PO DAILY PRN PRN Reason: Constipation Stop: 12/06/19 20:24 Rosuvastatin Calcium (Crestor) 40 mg PO HS [facility] Stop: 12/06/19 20:59 Last Admin: 11/09/19 21:07 Dose: 40 mg Documented by: PG Care Time/CCT Total # of Minutes Spent Total Time Spent with Patient: Total time spent is greater than 50% in coordination of care (as documented) at patient's floor/unit and/or counseling patient: (1) Chest pain Chest pain type: precordial pain Qualified Code(s): R07.2 - Precordial pain (2) CAD (coronary artery disease) Coronary Disease-Associated Artery/Lesion type: [place] artery [place] vs. transplanted heart: [place] heart Associated angina: without angina Qualified Code(s): I25.10 - Atherosclerotic heart disease of [place] coronary artery without angina pectoris
--- NOTE | 2019-11-11 11:09 | Hospitalist Progress Note ---
Date of Service November 11, 2019 Assessment & Plan (1) Acute kidney injury: in setting of CKD stage 3-4. TIFFANY - 2nd to recent attempts at diuresis? rhabdomyolysis? accelerated HTN/hypertensive emergency? combination? appreciate Dr Sandoval's consultation. holding statin due to rhabdomyolysis. holding lasix due to TIFFANY. lengthy discussion held with patient and son today - if volume status worsens in face of TIFFANY could need HD. BMP am. no evidence of obstructive process this admission. (2) Rhabdomyolysis: statin-induced? holding high-dose crestor. no recent falls. acquired myositis? did have elevated CPK in past as well. recheck CPK in am. (3) Stage 3 chronic kidney disease: baseline Cr 2.1 / 2.2 appreciate nephrology consultation (4) Elevated troponin: peak 0.14 likely myocardial demand ischemia in setting of accelerated HTN no ACS while here (5) Hypertensive emergency: improved/resolved may have contributed to acute kidney injury cont BB cont CCB adjust as needed (6) Chronic heart failure with preserved ejection fraction (HFpEF): chronic diastolic CHF current volume overloaded state is likely more so due to kidney disease rather than cardiac disease see above cont BB holding diuretics due to acute kidney injury (7) Severe left ventricular hypertrophy: 2nd to long-standing HTN (8) Diabetes mellitus: control fair/good w/ basal-bolus insulin nutrition consult pt's son reports poor diet outside hospital (9) History of stent insertion of renal artery: renal dopplers this admit - normal renal artery indices (10) Hyperlipidemia: HOLDING crestor as noted above (11) CAD (coronary artery disease): s/p RCA stent - [facility] in [facility] 09/2019 pt was concerned brilenta was causing numerous side effects she consulted w/ her [employer] product consultant at [facility] -advised to stop brilenta; change to plavix plavix load 11/10 now on plavix 75mg daily cont BB cont asa holding statin 2nd elevated CPK no ischemic symptoms at this time appreciate cardiology consult & recs (12) DVT prophylaxis: ambulating but high risk of DVT add heparin 5000 BID total time today 75 minutes including 50 minutes at bedside AND 25 minutes coordinating care (and discussing care with consultants) Subjective spent 50 minutes at the bedside yesterday first portion was my AM rounds assessment with patient; son was at bedside she reported her myalgias were improved however, she stated she was very weak relative to 2 days ago also now with orthopnea, dyspnea with minimal exertion and worsening LE edema 2nd portion of visit was a joint meeting between myself, Dr Jaime, son, patient and also a [employer] product consultant from [facility] in [facility] (linked in by phone) we discussed current issues, plan of care, concern of worsening renal function, etc pt would be open to HD if she ever needed it numerous questions answered patient does feel BETTER off the brilenta checked with pharmacy - no data on-line to suggest brilenta can cause rhabdomyol ysis Review of Systems Constitutional: + fatigue; no fever and no anorexia Respiratory: + dyspnea and + dyspnea on exertion; no cough Cardiovascular: + dyspnea on exertion, + orthopnea and + edema; no chest pain Gastrointestinal: no abdominal pain Physical Exam Constitutional: well developed, well nourished and + obese; no acute distress ENMT: external ear and nose normal, oropharynx normal Respiratory: no respiratory distress Auscultation: + diminished lung sounds (bases) and + rales (faint- bases); no wheezes Cardiovascular: Rate/Rhythm: regular rate and regular rhythm Heart Sounds: normal S1 and normal S2 Vessels: + JVD (mild), posterior tibial pulses present and dorsalis pedis pulses present Extremities: + edema (1-2+ b/l) Gastrointestinal (Abdomen): normal bowel sounds, soft, nontender, no hepatosplenomegaly Neurologic: moves all extremities (no proximal muscle weakness of either the shoulders or hips) Psychiatric: A+Ox3, euthymic affect Results & Data Vital Signs (Past 12 Hours) Vital Signs Temp Pulse Pulse Resp BP Pulse Ox 11/11/19 07:14 36.6 C 61 18 156/65 H 94 11/11/19 04:50 36.7 C 66 18 143/73 H 95 11/10/19 23:53 67 PG Care Time/CCT Total # of Minutes Spent Total Time Spent with Patient: Total time spent is greater than 50% in coordination of care (as documented) at patient's floor/unit and/or counseling patient: Prolonged Care Time Prolonged Care Time: Yes total time 75 minutes (1) Hyperlipidemia Hyperlipidemia type: unspecified Qualified Code(s): E78.5 - Hyperlipidemia, unspecified (2) CAD (coronary artery disease) Coronary Disease-Associated Artery/Lesion type: [place] artery [place] vs. transplanted heart: [place] heart Associated angina: without angina Qualified Code(s): I25.10 - Atherosclerotic heart disease of [place] coronary artery without angina pectoris (3) Rhabdomyolysis Rhabdomyolysis type: non-traumatic Qualified Code(s): M62.82 - Rhabdomyolysis
--- NOTE | 2019-11-11 12:27 | Nephrology Progress Note ---
Date of Service November 11, 2019 Assessment & Plan (1) Acute on chronic renal failure: Advanced CKD at baseline with multiple episodes of TIFFANY. Current TIFFANY, in the setting of accelerated hypertension and recent PCI, suggestive of ATN. Clinical history and urine studies (granular casts) consistent with ATN as well. I think it is unlikely Brilinta may have contributed but nevertheless Ayana did not feel well on the medication and it has appropriately been switched to Plavix. CK is elevated and rising. Crestor held. Ayana remains non-oliguric. Volume status is reasonable. Additional 20 mg furosemide was provided today. Electrolytes are acceptable. There is no current indication to start dialysis. I did discuss the possibility that kidney dysfunction may not improve. We discussed dialysis and Ayana continues to state that she would refuse. She is going to talk about this in more detail with her family. Her son will visit the local dialysis unit for additional education as well. Document I/O's. Imaging did not demonstrate obstruction. Urine microscopy acellular. Repeat metabolic profile and CK level in the AM. (2) CKD (chronic kidney disease) stage 3, GFR 30-59 ml/min: CKD III-IV at baseline. Serum creatinine at baseline is approximately 2.2 mg/dL. 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 Multiple episodes of TIFFANY with accelerated hypertension and volume overload. (3) Renal artery stenosis: RA duplex reviewed. (4) CAD (coronary artery disease): Cardiology consultation appreciated. Plan of care discussed with Dr. Perez today. (5) Chronic heart failure with preserved ejection fraction (HFpEF): Ultimately, will plan to restart losartan but deferred at this time pen ding improvement in kidney function. Spironolactone likewise deferred. (6) Hypertensive emergency: Carvedilol 12.5 mg twice daily. Continue nifedipine 30 mg daily. 20 mg Furosemide provided this AM. Subjective No acute events overnight. Ayana feels well today. She stated that she feels ready to go home. However, she continues to have notable limiting BAPTISTE. LE edema has significantly improved. I met with Ayana and her son Jose, as well as Dr. Hector this morning. Dr. Perez from [facility] joined the conversation by phone. We discussed the patient's status and the plan of care in detail. The severity of illness was explained and the plan of care moving forward was outlined. Ayana continues to state that she would refuse dialysis. Her son is looking for more information and I have arranged for him to visit the local dialysis unit in [place] today. Review of Systems Review of Systems: All systems reviewed & are unremarkable except as noted in HPI & below Physical Exam Constitutional: well developed and + morbidly obese; not edematous Eyes: + anicteric sclerae; no conjunctival abnormality ENMT: Mouth: no oral mucosal abnormality and oral mucous membranes not dry Neck: normal visual inspection, trachea midline and + thick neck Respiratory: normal respiratory effort Auscultation: lungs clear to auscultation bilaterally Cardiovascular: Rate/Rhythm: regular rate Heart Sounds: normal S1 and normal S2 Extremities: + edema Gastrointestinal (Abdomen): Percussion/Palpation: abdomen soft; abdomen nontender Musculoskeletal: Extremities: no cyanosis and no clubbing Skin: normal turgor; no lesions Neurologic: Motor/Sensory: no tremor and no asterixis Psychiatric: Orientation: alert and oriented x 3 Results & Data Vital Signs (Past 12 Hours) Vital Signs Temp Pulse Resp BP Pulse Ox 11/11/19 11:28 36.6 C 63 20 174/75 H 98 11/11/19 07:14 36.6 C 61 18 156/65 H 94 11/11/19 04:50 36.7 C 66 18 143/73 H 95 Laboratory Results Laboratory Results - last 24 hr 11/10/19 11/10/19 11/10/19 16:20 20:14 20:41 WBC RBC Hgb Hct MCV MCH MCHC RDW Std Deviation RDW Coeff of Ekaterina Plt Count MPV Immature Gran % (Auto) Neut % (Auto) Lymph % (Auto) [place] % (Auto) Eos % (Auto) Baso % (Auto) Immature Gran # (Auto) Neut # (Auto) Lymph # (Auto) [place] # (Auto) Eos # (Auto) Baso # (Auto) Sodium Potassium Chloride Carbon Dioxide Anion Gap BUN Creatinine Est Cr Clr Drug Dosing Est GFR ( Amer) Est GFR (Non-Af Amer) BUN/Creatinine Ratio Glucose POC Glucose 139 H 145 H Calcium Total Bilirubin AST ALT Alkaline Phosphatase Total Protein Albumin Globulin Albumin/Globulin Ratio Urine Color Yellow Urine Appearance Turbid A Urine pH 5.0 Ur Specific [place] 1.017 Urine Protein 2+ H Urine Glucose (UA) Negative Urine Ketones Negative Urine Blood 3+ H Urine Nitrite Negative Urine Bilirubin Negative Urine Urobilinogen Negative Ur Leukocyte Esterase Trace H Urine WBC (Auto) 5-10 H Urine RBC (Auto) 0-4 U Hyaline Cast (Auto) 1-5 U Epithel Cells (Auto) >30 H Urine Bacteria (Auto) 1+ H Amorphous Sediment Present A Granular Casts 1-5 H Urine Yeast Not Reportable 11/11/19 11/11/19 11/11/19 07:33 08:04 08:04 WBC 9.61 RBC 3.86 L Hgb 10.6 L Hct 32.7 L MCV 84.7 MCH 27.5 MCHC 32.4 RDW Std Deviation 47.4 H RDW Coeff of Ekaterina 15.4 H Plt Count 245 MPV 11.6 H Immature Gran % (Auto) 0.3 Neut % (Auto) 71.6 Lymph % (Auto) 14.8 [place] % (Auto) 7.4 Eos % (Auto) 5.6 Baso % (Auto) 0.3 Immature Gran # (Auto) 0.03 H Neut # (Auto) 6.88 H Lymph # (Auto) 1.42 [place] # (Auto) 0.71 H Eos # (Auto) 0.54 H Baso # (Auto) 0.03 Sodium 141 Potassium 4.0 Chloride 110 H Carbon Dioxide 23 Anion Gap 7.0 BUN 84 H Creatinine 3.57 H Est Cr Clr Drug Dosing 16.0 Est GFR ( Amer) 14.3 Est GFR (Non-Af Amer) 12.3 BUN/Creatinine Ratio 23.6 H Glucose 128 H POC Glucose 133 H Calcium 8.9 Total Bilirubin 0.4 AST 91 H ALT 102 H Alkaline Phosphatase 128 H Total Protein 7.1 Albumin 2.8 L Globulin 4.3 H Albumin/Globulin Ratio 0.7 L Urine Color Urine Appearance Urine pH Ur Specific [place] Urine Protein Urine Glucose (UA) Urine Ketones Urine Blood Urine Nitrite Urine Bilirubin Urine Urobilinogen Ur Leukocyte Esterase Urine WBC (Auto) Urine RBC (Auto) U Hyaline Cast (Auto) U Epithel Cells (Auto) Urine Bacteria (Auto) Amorphous Sediment Granular Casts Urine Yeast 11/11/19 11:25 WBC RBC Hgb Hct MCV MCH MCHC RDW Std Deviation RDW Coeff of Ek[place]ina Plt Count MPV Immature Gran % (Auto) Neut % (Auto) Lymph % (Auto) [place] % (Auto) Eos % (Auto) Baso % (Auto) Immature Gran # (Auto) Neut # (Auto) Lymph # (Auto) [place] # (Auto) Eos # (Auto) Baso # (Auto) Sodium Potassium Chloride Carbon Dioxide Anion Gap BUN Creatinine Est Cr Clr Drug Dosing Est GFR ( Amer) Est GFR (Non-Af Amer) BUN/Creatinine Ratio Glucose POC Glucose 168 H Calcium Total Bilirubin AST ALT Alkaline Phosphatase Total Protein Albumin Globulin Albumin/Globulin Ratio Urine Color Urine Appearance Urine pH Ur Specific [place] Urine Protein Urine Glucose (UA) Urine Ketones Urine Blood Urine Nitrite Urine Bilirubin Urine Urobilinogen Ur Leukocyte Esterase Urine WBC (Auto) Urine RBC (Auto) U Hyaline Cast (Auto) U Epithel Cells (Auto) Urine Bacteria (Auto) Amorphous Sediment Granular Casts Urine Yeast PG Care Time/CCT Total # of Minutes Spent Total Time Spent with Patient: Total time spent is greater than 50% in coordination of care (as documented) at patient's floor/unit and/or counseling patient: (1) CAD (coronary artery disease) Coronary Disease-Associated Artery/Lesion type: [place] artery [place] vs. transplanted heart: [place] heart Associated angina: without angina Qualified Code(s): I25.10 - Atherosclerotic heart disease of [place] coronary artery without angina pectoris
[2019-11-11] MEDS: INSULIN GLARGINE SOLOSTAR 100 UNITS/ML 3 ML PEN SC SCH (20:46)
[2019-11-12 07:33] LABS: Albumin Level 2.8 gm/dl (3.4-5.0); BUN Creatinine Ratio 25.6 (10-20); Calcium 8.8 mg/dl (8.5-10.1); Creatinine Clr Calc Pharmacy 17.4 ml/min; Est GFR (African American) 15.2; Est GFR (Non-African American) 13.1
[2019-11-12 07:48] LABS: Albumin Globulin Ratio 0.6 (0.9-2); Bilirubin,Total 0.3 mg/dl (0.2-1); Globulin 4.5 gm/dl (2.5-4.0); Total Protein 7.3 gm/dl (6.4-8.2)
[2019-11-12] MEDS: INSULIN HUMAN LISPRO (humaLOG) 100 UNITS/ML VIAL SC SCH ×3 (08:00→17:36)
[2019-11-12] MEDS: ASPIRIN 81 MG ECTAB PO SCH (08:01)
[2019-11-12] MEDS: OMEGA-3 (PURIFIED FISH OIL) 1 GM CAP PO SCH (08:01)
[2019-11-12] MEDS: NIFEdipine EXTENDED REL 30 MG TABCR PO SCH (08:01)
[2019-11-12] MEDS: carvediloL 12.5 MG TAB PO SCH (08:01)
[2019-11-12] MEDS: CLOPIDOGREL BISULFATE 75 MG TAB PO SCH (08:01)
[2019-11-12] MEDS ORDERED: FUROSEMIDE 20 MG TAB PO SCH (10:00)
--- NOTE | 2019-11-12 12:39 | Nephrology Progress Note ---
Date of Service November 12, 2019 Assessment & Plan (1) Acute on chronic renal failure: Advanced CKD at baseline with multiple episodes of TIFFANY. Current TIFFANY, in the setting of accelerated hypertension and recent PCI, suggestive of ATN. Clinical history and urine studies (granular casts) consistent with ATN as well. I think it is unlikely Brilinta may have contributed but nevertheless Ayana did not feel well on the medication and it has appropriately been switched to Plavix. CK is elevated which I suspect is related to her statin in combination with her acute on chronic renal dysfunction. Crestor held. Ayana remains non- oliguric. Volume status is reasonable. Additional 20 mg furosemide was provided today. Electrolytes are acceptable. There is no current indication to start dialysis. I did discuss the possibility that kidney dysfunction may not improve. We discussed dialysis and Ayana continues to state that she would refuse. She is going to talk about this in more detail with her family. Her son has visited the local dialysis unit and Ayana is agreeable to doing the same for more education after she is discharged. I discussed the plan of care with Dr. Hector this morning. Ayana insists on going home today. This is reasonable with close outpatient follow up. I suggest we continue nifedipine at least at 30 mg daily. I also suggest we continue furosemide 20 mg daily. I reviewed the case with Dr. Knott this morning as well. If BP is reasonable and kidney function stable this afternoon, I would be comfortable with discharge home today. I would like to see follow up labs on Saturday or Saturday next week and I will arrange for Ayana to see me in the clinic next Saturday or . (2) CKD (chronic kidney disease) stage 3, GFR 30-59 ml/min: CKD III-IV at baseline. Serum creatinine at baseline is approximately 2.2 mg/dL. 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 Multiple episodes of TIFFANY with accelerated hypertension and volume overload. (3) Renal artery stenosis: RA duplex reviewed. (4) CAD (coronary artery disease): Cardiology consultation appreciated. Plan of care discussed with Dr. Perez yesterday. (5) Chronic heart failure with preserved ejection fraction (HFpEF): (6) Hypertensive emergency: Carvedilol 12.5 mg twice daily. Continue nifedipine 30 mg daily (increase as needed). 20 mg Furosemide 20 mg daily. Subjective No acute events overnight. Ayana states that she feels well. Edema improved. She denies dyspnea. She is requesting to go home today. She states that this is the best she has felt in weeks. She is ambulating in the halls. Her appetite is good. She denies chest pain. She denies palpitations. Ayana continues to insist that she would refuse dialysis but she also states that she would entertain the possibility in the future at her family's wishes. Review of Systems Review of Systems: All systems reviewed & are unremarkable except as noted in HPI & below Physical Exam Constitutional: well developed and + morbidly obese; not edematous Eyes: + anicteric sclerae; no conjunctival abnormality ENMT: Mouth: no oral mucosal abnormality and oral mucous membranes not dry Neck: normal visual inspection and trachea midline Respiratory: normal respiratory effort Auscultation: lungs clear to auscultation bilaterally Cardiovascular: Rate/Rhythm: regular rate Heart Sounds: normal S1 and n ormal S2 Extremities: + edema Gastrointestinal (Abdomen): Percussion/Palpation: abdomen soft; abdomen nontender Musculoskeletal: Extremities: no cyanosis and no clubbing Skin: normal turgor; no lesions Neurologic: Motor/Sensory: no tremor and no asterixis Psychiatric: Orientation: alert and oriented x 3 Results & Data Vital Signs (Past 12 Hours) Vital Signs Temp Pulse Resp BP BP Pulse Ox 11/12/19 12:11 36.5 C 57 L 19 187/83 H 99 11/12/19 08:06 36.3 C L 59 L 19 157/74 H 98 11/12/19 04:25 36.6 C 70 17 113/62 91 Laboratory Results Laboratory Results - last 24 hr 11/11/19 11/11/19 11/12/19 16:33 19:57 06:46 Sodium 139 Potassium 4.0 Chloride 110 H Carbon Dioxide 21 Anion Gap 8.0 BUN 87 H Creatinine 3.40 H Est Cr Clr Drug Dosing 17.4 Est GFR ( Amer) 15.2 Est GFR (Non-Af Amer) 13.1 BUN/Creatinine Ratio 25.6 H Glucose 136 H POC Glucose 173 H 170 H Calcium 8.8 Total Bilirubin 0.3 AST 68 H ALT 103 H Alkaline Phosphatase 126 H Total Creatine Kinase 1773 H Total Protein 7.3 Albumin 2.8 L Globulin 4.5 H Albumin/Globulin Ratio 0.6 L 11/12/19 11/12/19 07:11 11:33 Sodium Potassium Chloride Carbon Dioxide Anion Gap BUN Creatinine Est Cr Clr Drug Dosing Est GFR ( Amer) Est GFR (Non-Af Amer) BUN/Creatinine Ratio Glucose POC Glucose 165 H 208 H Calcium Total Bilirubin AST ALT Alkaline Phosphatase Total Creatine Kinase Total Protein Albumin Globulin Albumin/Globulin Ratio PG Care Time/CCT Total # of Minutes Spent Total Time Spent with Patient: Total time spent is greater than 50% in coordination of care (as documented) at patient's floor/unit and/or counseling patient: (1) CAD (coronary artery disease) Coronary Disease-Associated Artery/Lesion type: [place] artery [place] vs. transplanted heart: [place] heart Associated angina: without angina Qualified Code(s): I25.10 - Atherosclerotic heart disease of [place] coronary artery without angina pectoris
[2019-11-12 14:25] LABS: BUN Creatinine Ratio 25.5 (10-20); Creatinine Clr Calc Pharmacy 18.7 ml/min; Est GFR (African American) 16.6; Est GFR (Non-African American) 14.3
--- NOTE | 2019-11-12 16:04 | Pharmacy Report ---
Pharmacy Glycemic Short Note 2 - Date of Service November 12, 2019 - Glycemic Short BSG Results (Last 24 hours): 11/11/19 11/11/19 11/12/19 16:33 19:57 06:46 Glucose 136 H POC Glucose 173 H 170 H 11/12/19 11/12/19 11/12/19 07:11 11:33 13:54 Glucose 148 H POC Glucose 165 H 208 H OUTPATIENT ANTIDIABETIC REGIMEN: * Humalog 10 units with breakfast, 20 units with lunch and dinner * Lantus BID per sliding scale - per patient, she does not always take this * A1c = 6.7 % 11/07/19 The patient is currently receiving: * Basal insulin: Lantus 20 units qhs (with 1/2 dose for BSG < 140) * Correctional Insulin: Novolog Correction per scale ACHS Goal Range: Low 110 mg/dL - High 140 mg/dL Correction Factor: 25 mg/dL/unit * Prandial insulin: Per carb ratio of 1 unit per 8 grams CHO consumed - Assessment & Plan ASSESSMENT: 11/12 * BSGs well controlled previous 24 hours although slightly above goal (all BSGs <180) * Fasting above goal this morning, 165, will increase lantus dose * Lunch BSG elevated today, yesterdays prandial sugars all slightly above goal, will tighten carb ratio 11/10 * BSGs remain well controlled with current insulin orders - no changes today * Renal fxn appeared to have worsened yesterday, results of SCr not yet available this AM; if worsening renal fxn - may need to scale back insulin doses 11/09 * BSGs well controlled over last 24 hrs * Fasting BSG 146 this AM with 20 units basal on board - this is near goal, thus will continue for now * Post-prandial BSGs well controlled yesterday with current CR / CF - will continue 11/08 * BSGs stable over the past 24 hours * Patient received 20 units of basal and 13 units of prandial insulin * Clinical dietitian spoke with patient re: carb coverage with meals. Patient amenable to T1DM but did not want carb restriction with T2DM diet. Outpatient Humalog doses use CF 20, CR 7, so this is comparable to current inpatient dosing. She typically does not use correctional at HS but tolerated this last night so will continue for now. 11/07 * 69 y/o F admitted for CP, hypertensive emergency and abdominal pain. PMH notable for T2DM, HFpEF, CKD. A1c well controlled; however, may not be reliable in CKD. 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 BSGs were in range in the ED but increased to the 200s last night. She received 20 units of Lantus last night with fasting BSG of 116 mg/dL this AM. SCr remains elevated from baseline. * Dietitian notified me that patient refused carb counting and wanted a regular diet. Dietitian was going to speak with patient to obtain more information. Patient will require carb counting for appropriate insulin dosing. PLAN FOR INPATIENT GLYCEMIC CONTROL: * Basal insulin - increase * Lantus 24 units SQ qHS * Bolus insulin - no change * NovoLog per scale ACHS or Q6hrs while NPO * Goal Range: Low 110 mg/dL - High 140 mg/dL * Correction Factor: 25 mg/dL/unit * Nutritional / Prandial insulin per carb ratio of 1 unit per 7 grams CHO consumed PLAN FOR DISCHARGE: * A1c = 6.7% on 11/07/19 * Goal A1c < 7% based on age/comorbidities * Recommend to resume outpatient regimen on discharge if patient's clinical status / renal fxn return to baseline
--- NOTE | 2019-11-12 18:03 | Discharge Summary ---
Date of Service November 12, 2019 Admission HPI Per Admitting Provider The patient is a 69 years old female with past medical history of STEMI, coronary artery disease with 3 stents placed at [facility] in [place], chronic heart failure with preserved ejection fraction, stent insertion to the left renal artery in 2013, severe left ventricular hypertrophy, stage III CKD, diabetes mellitus type 2, hypertension, and hyperlipidemia, who presents to the emergency room for a chest pain and shortness of breath that she is experiencing for 3 weeks. Patient reports generalized weakness and inability to get out of bed due to it. This morning patient noted a sharp chest pain that was shooting into her jaw and stomach. Patient reports mild digestion and belching since cardiac stent placement on October 12, 2019 and [facility]. This was a second and third stent that was placed recently and the first stent was placed 10 years ago in [facility]. Denies fever, chills, melena, near syncope, nausea, vomiting, dysuria, hematuria. EKG is reviewed and shows sinus bradycardia, left ventricular hypertrophy, with repolarization abnormality. Prolonged QT interval, abnormal EKG when compared with EKG on July 12, 2018 and decreased ventricular beat by 29 bpm. For patient chronic kidney insufficiency patient sees Dr. Danny Sandoval and last visit occurred on October 23, 2019. She also sees doctors old fundraising assistant with the last visit on October [address] Jimenez note he increased carvedilol to 25 mg nightly. He also recommended cardiovascular vascular evaluation and [facility] in [place]. He held angiotensin receptor blockers due to possibility to worsening her renal function. Labs are reviewed: WBC is 10.14, hemoglobin 10.8, hematocrit 33.4 platelets 211, PT 11, INR 1.1, APTT 25.9, sodium 140, potassium 3.6, chloride 109, anion gap 7, BUN 58, creatinine 2.7 from baseline 2.14, and GFR 17.3 from baseline 22.9, hemoglobin A1c as of September 07, 2019 6.5, AST 62, ALT 59, alkaline phosphatase 143, total creatinine kinase 1787, troponin 0.0140--> 0.131, BNP 5767, TSH 1.35, lipase 151 Albumin 2.9. Chest x-rays mild cardiomegaly, otherwise no acute process within the chest. Decision was made to admit patient to telemetry for chest pain for observation Discharge Exam Constitutional well developed, well nourished and + obese; no acute distress ENMT external ear and nose normal, oropharynx normal Respiratory no respiratory distress Auscultation: + diminished lung sounds (bases) and + rales (faint- bases); no wheezes Cardiovascular Rate/Rhythm: regular rate and regular rhythm Heart Sounds: normal S1 and normal S2 Vessels: + JVD (mild), posterior tibial pulses present and dorsalis pedis pulses present Extremities: + edema (1-2+ b/l) Gastrointestinal (Abdomen) normal bowel sounds, soft, nontender, no hepatosplenomegaly Neurologic moves all extremities (no proximal muscle weakness of either the shoulders or hips) Psychiatric A+Ox3, euthymic affect Discharge Data Allergies Allergy/AdvReac Type Severity Reaction Status Date / Time Sulfa (Sulfonamide Allergy Intermediate RASH Verified 10/23/19 09:44 Antibiotics) Penicillins Allergy Mild Unknown Verified 11/07/19 00:09 insulin aspart Allergy Hives Verified 11/07/19 00:09 [From Novolog U-100 Insulin aspart] meperidine AdvReac Intermediate hallucinate Verified 10/23/19 09:44 s lisinopril AdvReac Mild COUGHING Verified 10/23/19 09:44 Consultations 11/06/19 16:18 ED Decision to Admit Stat 11/07/19 11:06 Consult Cardiology Routine 11/07/19 11:10 Consult Nephrology Routine 11/07/19 16:57 Consult Health Information Management Routine 11/09/19 08:23 Consult Urology Routine Ordered Studies 11/06/19 22:22 CT abd pelvis wo con Stat 11/09/19 08:40 US duplex renal artery Routine Hospital Course (1) Acute kidney injury: in setting of CKD stage 3-4. TIFFANY - 2nd to recent attempts at diuresis? rhabdomyolysis? accelerated HTN/hypertensive emergency? combination? appreciate Dr Sandoval's consultation. holding statin due to rhabdomyolysis. holding lasix due to TIFFANY. lengthy discussion held with patient and son today - if volume status worsens in face of TIFFANY could need HD. BMP am. no evidence of obstructive process this admission. (2) Rhabdomyolysis: statin-induced? holding high-dose crestor. no recent falls. acquired myositis? did have elevated CPK in past as well. recheck CPK in am. (3) Stage 3 chronic kidney disease: baseline Cr 2.1 / 2.2 appreciate nephrology consultation (4) Elevated troponin: peak 0.14 likely myocardial demand ischemia in setting of accelerated HTN no ACS while here (5) Hypertensive emergency: improved/resolved may have contributed to acute kidney injury cont BB cont CCB adjust as needed (6) Chronic heart failure with preserved ejection fraction (HFpEF): chronic diastolic CHF current volume overloaded state is likely more so due to kidney disease rather than cardiac disease see above cont BB holding diuretics due to acute kidney injury (7) Severe left ventricular hypertrophy: 2nd to long-standing HTN (8) Diabetes mellitus: control fair/good w/ basal-bolus insulin nutrition consult pt's son reports poor diet outside hospital (9) History of stent insertion of renal artery: renal dopplers this admit - normal renal artery indices (10) Hyperlipidemia: HOLDING crestor as noted above (11) CAD (coronary artery disease): s/p RCA stent - [facility] in [facility] 09/2019 pt was concerned brilenta was causing numerous side effects she consulted w/ her fundraising assistant at [facility] -advised to stop brilenta; change to plavix plavix load 11/10 now on plavix 75mg daily cont BB cont asa holding statin 2nd elevated CPK no ischemic symptoms at this time appreciate cardiology consult & recs (12) DVT prophylaxis: ambulating but high risk of DVT add heparin 5000 BID total time today 75 minutes including 50 minutes at bedside AND 25 minutes coordinating care (and discussing care with consultants) Discharge Plan Discharge Items Patient Disposition: Home - Self-Care Reason For Visit: CHEST PAIN Discharge Diagnosis: 1. chest pain - no evidence of new heart attack 2. markedly elevated blood pressures / uncontrolled high blood pressure - improved 3. elevated CK level (muscle test) in the blood - improving; may have been due to your crestor medication; this was the likely cause of your muscle aches 4. acute kidney injury - improving; peak creatinine level was 3.57; improved to 3.1 at discharge; hopefully the creatinine will continue to fall closer to your "normal" level for you (about 2.1/2.2) 5. abnormal liver tests Activity: As commented below Activity Comment: no strenuous activities unless ok with your fundraising assistant Non-emergency contact: Primary Care Provider, Operator Control Room and Drilling Field Operator Call non-emergency contact if: you have any medication questions, your symptoms worsen, your pain is not controlled and you have a fever Follow-up/Referrals: Danny Sandoval DO [Physician] - 11/18/19 (Please, follow up with Dr. Sandoval on SaturdayNovember 18. *If you need to change this appointment, call the office at [phone].) Shay Hammond [Primary Care Provider] - 11/13/19 2:45 pm (Please, follow up with Dr. Hammond on SaturdayNovember 13 at 2:45 pm. *If you need to change this appointment, call the office at [phone].) Diet: Carb Consistent or DM2 and Heart Healthy Fluids: 1500ml (6 cups) Ambulatory Orders: Creatine Kinase (Routine) Timeframe: 20191116 Location: Determined by Patient Ordered By: Placido Jaramillo Hepatic Function (Liver) Panel (Routine) Timeframe: 20191116 Location: Determined by Patient Ordered By: Placido Jaramillo Addtl Attending Provider Instructions: You were treated for elevated blood pressures, swelling/edema, acute kidney injury, elevated CK level in the blood, and other issues. Fortunately your kidney function level - despite rising while hospitalized - is starting to come down. Your creatinine (kidney function level) is now 3.1. We are hopeful that the creatinine will return to your "normal level" (about 2.1 or 2.2) in the next week or so. The kidney function likely got worse this admission because of your uncontrolled high blood pressures and the elevated CK level in the blood stream. The elevated CK level is also improving at this time (was about 3000, now down to 1770). We are suspicious your crestor medication may have caused this level to rise. Recommendations - 1. STOP your crestor for now. 2. STOP the brilinta. 3. RESTART plavix 75mg daily. 4. START procardia xl 30mg once daily. 5. RESUME lasix (furosemide) water pill 20mg once daily. Take every morning starting on 11/13/19. 6. TAKE coreg (carvedilol) 12.5mg twice daily every day. 7. please have your outpatient blood work taken on 11/16/2019 as previously discussed. I sent prescriptions for plavix, procardia xl, lasix, and coreg to the pharmacy for you. Your liver function tests were also mildly elevated - possibly due to excess fluid in your body, possibly due to crestor, or potentially another cause. Recommend NO alcohol and NO tylenol until the liver tests are repeated next week. Please continue to check your blood pressures daily at home and give a list of these numbers to Dr Sandoval for his review. Check your weight EVERY MORNING ON THE SAME SCALE at home after using the toilet. If you notice weight gains of more than 2-3 pounds over 1-[address] Sandoval know right away. This is typically a sign of fluid retention. Follow-up -- see separate section Return to [facility] if -- * you have fever over 100.5 degrees * you are having chest pains * you are having worsening breathing/shortness of breath * you have rapidly worsening fluid/edema in your abdomen or feet/ankles/legs * any other concerns Pending Studies at Discharge: No Stand-Alone Forms: My [facility], Smoking Cessation Medications and DC Order Prescriptions: New clopidogrel [Plavix] 75 mg tablet 75 mg PO DAILY Qty: 30 RF: 5 nifedipine [Procardia XL] 30 mg Tablet Extended Release 24hr 30 mg PO QAM Qty: 30 RF: 5 furosemide [Lasix] 20 mg tablet 20 mg PO QAM Qty: 30 RF: 5 Continued (DME) pen needle, diabetic [Novofine 32] 32 gauge x 1/4" needle See Dose Instructions .ROUTE .MEDSUPPLY Qty: 400 RF: 3 Humalog U-100 Insulin 100 unit/mL cartridge See Patient Comments SUBCUT .COMPLEX Qty: 75 RF: 3 (DME) OneTouch Ultra Blue Test Strip strip See Dose Instructions .ROUTE .MEDSUPPLY Qty: 10 RF: 0 (DME) lancets [[facility]Touch UltraSoft Lancets] [facility] See Dose Instructions .ROUTE .MEDSUPPLY Qty: 50 RF: 0 Lantus Solostar U-100 Insulin 100 unit/mL (3 mL) insulin pen 0 units SUBCUT BID RF: 0 [id number] oil-D3 [Fish Oil-Vit D3] 360 mg-1,200 mg -1,000 unit Capsule 1 cap PO DAILY RF: 0 aspirin [Giselle Chewable Aspirin] 81 mg Tablet,Chewable 81 mg PO BID RF: 0 Changed carvedilol 25 mg tablet 12.5 mg PO BID Qty: 60 RF: 5 Discontinued furosemide 20 mg tablet 20 mg PO DAILY PRN (Reason: edema) Qty: 90 RF: 0 furosemide 40 mg tablet 40 mg PO DAILY Qty: 90 RF: 1 rosuvastatin [Crestor] 40 mg tablet 40 mg PO HS RF: 0 Brilinta 90 mg tablet 90 mg PO BID RF: 0 carvedilol 3.125 mg tablet 0 mg PO QAM RF: 0 Discharge Orders: Discharge Order (Routine); Ordered 11/12/19 Ordered By: Placido Gibbons/Other Patient Handouts: Tips Using Less Salt, Diabetes Healthy Meals, Diabetes Carbs, Heart Failure Diet Changes, A1C Admission Data Admit Date/Time: 11/08/19 15:01 Attending Provider: Placido Jaramillo Admit Provider: Marlene Arroyo Primary Care Provider: Shay Hammond Other Providers: Marlene Arroyo ; Danny Sandoval ; Kayode Del Cid ; Samuel Robertson Other Interventions: Discharge Summary Assessment (RN) Last Done: 11/12/19 16:14 :
[2019-11-12] MEDS ORDERED: INSULIN GLARGINE SOLOSTAR 100 UNITS/ML 3 ML PEN SC SCH (21:00)
== END 2019-11-12 19:50 | disposition home or self-care (01) | DRG 305 ==
LOC: 2W 12:53 → ED 12:53 → 2W 19:55 → SUATTDRO 11-08 15:01

== ENCOUNTER 2021-05-26 12:55 | Observation (INO) ==
[2021-05-26 13:39] LABS: Basophils # (auto) 0.04 K/uL (0-0.2); Basophils % (auto) 0.3 %; Eosinophils # (auto) 0.21 K/uL (0-0.5); Eosinophils % (auto) 1.7 %; Hematocrit (blood only) 38.3 % (37-47); Hemoglobin 12.6 g/dL (12.0-16.0); Immature Granulocytes # (auto) 0.09 K/uL (0.00-0.02); Immature Granulocytes % (auto) 0.7 %; Lymphocytes # (auto) 1.93 K/uL (1.2-3.4); Lymphocytes % (auto) 15.9 %; Mean Corpuscular Hemoglobin 28.5 pg (25-34); Mean Corpuscular Hgb Conc 32.9 g/dL (32-36); Mean Corpuscular Volume 86.7 fL (80-100); Mean Platelet Volume 11.7 fL (7.4-10.4); Monocytes # (auto) 0.81 K/uL (0.11-0.59); Monocytes % (auto) 6.7 %; Neutrophils # (auto) 9.09 K/uL (1.4-6.5); Neutrophils % (auto) 74.7 %; Platelet Count 247 K/uL (130-400); RDW Coefficient of Variation 14.5 % (11.5-14.5); Red Blood Count 4.42 M/uL (4.2-5.4); White Blood Count 12.17 K/uL (4.8-10.8)
--- NOTE | 2021-05-26 15:20 | XRay Report ---
XR chest 1V portable HISTORY: 71 years-old Female Chest Pain . Acute atypical chest pain COMPARISON: Chest radiograph 11/06/2019 TECHNIQUE: Portable AP view of the chest FINDINGS: Cardiac silhouette is enlarged. Mediastinal contours appear unchanged. No pneumothorax, pleural effus ion, airspace consolidation or overt pulmonary edema. Bones of the chest appear grossly intact. IMPRESSION: Cardiomegaly without acute process. ACT 112: Negative or not required by law. The above report was generated using voice recognition software. It may contain grammatical, syntax o r spelling errors. Electronically signed by: Isac Fernandez M.D. 05/26/2021 3:19 PM
--- NOTE | 2021-05-26 16:03 | Emergency Department Note ---
History of Present Illness General Chief complaint: Chest Pain Stated complaint: CHEST PAINS, FEELING PRESSURE, THINKS HAVING HEART Time Seen by Provider: 05/26/21 15:47 Source: patient and family Mode of arrival: ambulatory Limitations: no limitations History of Present Illness Patient is 71-year-old female who has history of cardiac disease, comes in after having chest pain. She says for the last 3 to 4 days she started feeling like s he has a headache and then she has jaw pain then squeezing in her chest and radiation down her arm. She has been belching a lot as well. She does have a history of stent x2 as well as GERD. She does feel short of breath during these episodes and gets nauseated with some diaphoresis. She says she was up all night with these type of symptoms. No fever no trauma or injury no abdominal pain no blood or melena stool. She has a history of renal insufficiency which she says was secondary to a contrast in the past. Home Medications Medication Instructions Recorded Confirmed Type valsartan 40 mg tablet 40 mg PO DAILY #90 tab 01/19/20 04/21/21 Rx carvedilol 12.5 mg tablet 12.5 mg PO .COMPLEX #270 tab 12/12/20 04/21/21 Rx calcitriol 0.25 mcg capsule 0.25 mcg PO .COMPLEX #90 cap 02/03/21 04/21/21 Rx aspirin 81 mg tablet,delayed 81 mg PO QAM 03/26/21 04/21/21 History release clopidogrel 75 mg tablet (Plavix) 75 mg PO QAM 03/26/21 04/21/21 History furosemide 20 mg tablet 40 mg PO QAM 03/26/21 04/21/21 History spironolactone 25 mg tablet 25 mg PO QAM 03/26/21 04/21/21 History sulfamethoxazole 400 See Rx Instructions PO .COMPLEX #3 04/06/21 04/21/21 Rx mg-trimethoprim 80 mg tablet tab (Bactrim) blood sugar diagnostic (OneTouch #400 ea 04/21/21 Rx Ultra Blue Test Strip) fluconazole 150 mg tablet 150 mg PO Q3D #2 tab 04/21/21 04/21/21 Rx (Diflucan) insulin glargine 100 unit/mL (3 10 unit SUBCUT BID #30 ml 04/21/21 Rx mL) subcutaneous pen (Lantus Solostar U-100 Insulin) lancets (OneTouch UltraSoft #400 ea 04/21/21 Rx Lancets) pen needle, diabetic 32 gauge x #400 ea 04/21/21 Rx 1/4" (Novofine 32) insulin lispro 100 unit/mL See Rx Instructions .ROUTE 04/28/21 Rx subcutaneous pen (Humalog KwikPen .COMPLEX #75 ml MDD 75 units (U-100) Insulin) Allergies Allergy/AdvReac Type Severity Reaction Status Date / Time insulin aspart Allergy Hives Verified 04/21/21 13:26 [From Novolog U-100 Insulin aspart] meperidine AdvReac Intermediate hallucinate Verified 04/21/21 13:26 s lisinopril AdvReac Mild COUGHING Verified 04/21/21 13:26 Past Med/Surg History Medical History CAD (coronary artery disease) Chronic heart failure with preserved ejection fraction (HFpEF) CKD (chronic kidney disease) Diverticulosis Elevated troponin History of stent insertion of renal artery 2013 Hyperlipidemia Hypertension Hypertensive emergency LVH (left ventricular hypertrophy) Lymphedema Renal artery stenosis Status post myocardial infarction Vulvovaginal candidiasis Surgical History H/O heart artery stent Family History Other Hypertension Social History Smoking Status: Former smoker Second Hand Exposure: No; Hx Alcohol Use: No Hx Substance Use: No Preferred Language: Macedonian Communication Ability: Effective 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 Beliefs That Will Affect Care: Sikhism Sikhism Beliefs: PATIENT STATES SHE NEEDS A PRIVATE ROOM FOR HER "HOAHAOISM PRAYERS" marital status: / Current Living Situation: Family Current Living Situation Comment: lives with grandson How many Children do You have: 2 Feels Safe at Home: Yes Assistive Devices: None Review of Systems A total of 10 systems reviewed and were otherwise negative Physical Exam Vital Signs Vital Signs - 24 hr 05/26/21 12:57 05/26/21 13:23 05/26/21 16:00 Temperature 36.6 C Temperature Source Oral Pulse Rate 60 Pulse Rate [Apical] 55 L Respiratory Rate 20 18 Blood Pressure 230/81 H Blood Pressure [Left Arm] 200/78 H Blood Pressure Mean 130 Blood Pressure Mean [Left Arm] 118 Blood Pressure Position [Left Arm] Lying Pulse Oximetry 96 97 97 Oxygen Delivery Method Room Air Room Air Room Air Sepsis Recent Fever Within 48 Hours No Sepsis New/Unexplained Change in Mental Status No Sepsis Action Taken by Nursing No Action Required 05/26/21 18:16 Temperature Temperature Source Pulse Rate Pulse Rate [Apical] 60 Respiratory Rate 18 Blood Pressure Blood Pressure [Left Arm] 208/80 H Blood Pressure Mean Blood Pressure Mean [Left Arm] 122 Blood Pressure Position [Left Arm] Semi-fowlers Pulse Oximetry 96 Oxygen Delivery Method Room Air Sepsis Recent Fever Within 48 Hours Sepsis New/Unexplained Change in Mental Status Sepsis Action Taken by Nursing General: Well developed well nourished older female who appears in no acute d istress, breathing comfortably on room air. Normal speech HEENT: Normal cephalic atraumatic. Pupils are equal round and reactive to light. Extraocular movements are intact. Oropharynx is pink with moist mucous membranes. No swelling of the mouth lips or tongue. Neck: Supple with a midline trachea. No meningeal signs or stiffness, no JVD or bruits. No Stridor. Chest: Clear to auscultation bilaterally. No wheezes or rhonchi. No increased work of breathing. Heart: Regular rate and rhythm without murmurs or gallops. Abdomen: Soft nontender, nondistended without rebound guarding or rigidity. Extremities: No cyanosis clubbing or edema. No calf tenderness or assymetry Spine/Back. Non tender to palpation. No CVA tenderness Skin: Good turgor without rashes. Neurologic exam: Cranial nerves two through 12 are intact. Motor and sensation are intact and symmetrical throughout. Medical Decision Making Differential Diagnosis Acute coronary syndrome, arrhythmia, CHF, PE, electrolyte or metabolic abnormality, aortic disease, infection, Covid Medical Records Attestation: I reviewed the patient's medical records. Home Medications Current Medication List: was personally reviewed by me Laboratory Data Attestation: I reviewed the patient's lab results. Result diagrams: 05/26/21 13:19 05/26/21 15:45 Lab Results 05/26/21 05/26/21 05/26/21 Range/Units 13:19 13:19 13:19 WBC 12.17 H (4.8-10.8) K/uL RBC 4.42 (4.2-5.4) M/uL Hgb 12.6 (12.0-16.0) g/dL Hct 38.3 (37-47) % MCV 86.7 (80-100) fL MCH 28.5 (25-34) pg MCHC 32.9 (32-36) g/dL RDW Std Deviation 46.0 (36.4-46.3) fL RDW Coeff of Ekaterina 14.5 (11.5-14.5) % Plt Count 247 (130-400) K/uL MPV 11.7 H (7.4-10.4) fL Immature Gran % (Auto) 0.7 % Neut % (Auto) 74.7 % Lymph % (Auto) 15.9 % [place] % (Auto) 6.7 % Eos % (Auto) 1.7 % Baso % (Auto) 0.3 % Neut # (Auto) 9.09 H (1.4-6.5) K/uL Lymph # (Auto) 1.93 (1.2-3.4) K/uL [place] # (Auto) 0.81 H (0.11-0.59) K/uL Eos # (Auto) 0.21 (0-0.5) K/uL Baso # (Auto) 0.04 (0-0.2) K/uL Immature Gran # (Auto) 0.09 H (0.00-0.02) K/uL PT Cancelled INR Cancelled APTT Cancelled PTT Ratio Cancelled Sodium Cancelled Potassium Cancelled Chloride Cancelled Carbon Dioxide Cancelled Anion Gap Cancelled BUN Cancelled Creatinine Cancelled Est Cr Clr Drug Dosing Cancelled Est GFR ( Amer) Cancelled Est GFR (Non-Af Amer) Cancelled BUN/Creatinine Ratio Cancelled Glucose Cancelled Calcium Cancelled Total Bilirubin Cancelled AST Cancelled ALT Cancelled Alkaline Phosphatase Cancelled Troponin I Cancelled Total Protein Cancelled Albumin Cancelled Globulin Cancelled Albumin/Globulin Ratio Cancelled COVID-19 Eval Order 05/26/21 05/26/21 05/26/21 Range/Units 15:45 15:45 17:05 WBC (4.8-10.8) K/uL RBC (4.2-5.4) M/uL Hgb (12.0-16.0) g/dL Hct (37-47) % MCV (80-100) fL MCH (25-34) pg MCHC (32-36) g/dL RDW Std Deviation (36.4-46.3) fL RDW Coeff of Ekaterina (11.5-14.5) % Plt Count (130-400) K/uL MPV (7.4-10.4) fL Immature Gran % (Auto) % Neut % (Auto) % Lymph % (Auto) % [place] % (Auto) % Eos % (Auto) % Baso % (Auto) % Neut # (Auto) (1.4-6.5) K/uL Lymph # (Auto) (1.2-3.4) K/uL [place] # (Auto) (0.11-0.59) K/uL Eos # (Auto) (0-0.5) K/uL Baso # (Auto) (0-0.2) K/uL Immature Gran # (Auto) (0.00-0.02) K/uL PT 10.1 INR 1.0 APTT 26.2 PTT Ratio 1.0 Sodium 134 L Potassium 4.0 Chloride 107 Carbon Dioxide 20 L Anion Gap 7.0 BUN 87 H Creatinine 3.29 H Est Cr Clr Drug Dosing 16.7 Est GFR ( Amer) 15.6 Est GFR (Non-Af Amer) 13.4 BUN/Creatinine Ratio 26.4 H Glucose 116 H Calcium 8.9 Total Bilirubin 0.4 AST 8 L ALT 17 Alkaline Phosphatase 93 Troponin I 0.029 Total Protein 7.3 Albumin 3.0 L Globulin 4.3 H Albumin/Globulin Ratio 0.7 L COVID-19 Eval Order Covid19 at [facility] Imaging Data Attestation: I personally reviewed and interpreted this imaging study as follows: My Impression: Chest x-raycardiomegaly without overt CHF or pneumonia or pneumothorax Radiologist's Impression: Chest X-Ray 05/26/21 13:09 XR chest 1V portable HISTORY: 71 years-old Female Chest Pain . Acute atypical chest pain COMPARISON: Chest radiograph 11/06/2019 TECHNIQUE: Portable AP view of the chest FINDINGS: Cardiac silhouette is enlarged. Mediastinal contours appear unchanged. No pneumothorax, pleural effusion, airspace consolidation or overt pulmonary edema. Bones of the chest appear grossly intact. IMPRESSION: Cardiomegaly without acute process. ACT 112: Negative or not required by law. The above report was generated using voice recognition software. It may contain grammatical, syntax or spelling errors. Electronically signed by: Isac Fernandez M.D. 05/26/2021 3:19 PM ECG Data Attestation: I personally reviewed and interpreted this ECG as follows: Indication: + chest pain Rate (beats per minute): 58 Rhythm: + sinus bradycardia ECG Intervals/blocks: + Normal QRS, + Normal QT and + Normal NM ECG [place]: + Normal ECG ST segments: + ST depression ECG Findings: + LVH; no PACs or no PVCs Comparison ECG Date: from (Previous EKG in MUSE) Change: the following changes noted (st and T wave the lateral abnormality more pronounced) Additional Comments: EKG #2: Sinus bradycardia rate of 55 LVH there are laterally probably repolarization abnormalities with ST and T wave abnormalities which appear unchanged. EKG #1 MDM Narrative This patient comes in as described above. She was placed on a cardiac cath technologist in room A3. She is here for treatment and evaluation of intermittent chest pain. She does have a cardiac history as well as a GI history. She is asymptomatic at present. IV access was established and blood work was obtained. Chest x-ray does not show any overt CHF. She has baseline renal insufficiency. EKGs may have some more pronounced ST and T wave abnormalities but no acute STEMI. Troponin is not elevated. She has no significant electrolyte or metabolic abnormality. She was reassessed frequently. She did take aspirin p rior to arrival. I do think she needs to be admitted/observe for her chest pain and have consulted the [facility] hospitalist group to see her in the ER for these measures. Continuous cardiac monitoring: Orders placed in EMR for continuous cardiac monitoring. Upon my interpretation she was noted to be sinus bradycardia with a rate of 55. Impression & Plan Chest pain, H/O heart artery stent, CKD (chronic kidney disease), SOB (shortness of breath) Discharge Plan Visit Data Chief Complaint: Chest Pain Stated Complaint: CHEST PAINS, FEELING PRESSURE, THINKS HAVING HEART ED Provider: Domingo Saenz Discharge Problem: Chest pain, H/O heart artery stent, CKD (chronic kidney disease), SOB (shortness of breath) Forms Stand Alone Forms: My [facility] Prescriptions Prescriptions: No Action valsartan 40 mg tablet 40 mg PO DAILY Qty: 90 RF: 2 Hold Instructions: Home Medication placed on hold at Doctor's office carvedilol 12.5 mg tablet 12.5 mg PO .COMPLEX Qty: 270 RF: 3 (DME) OneTouch Ultra Blue Test Strip Strip See Dose Instructions .ROUTE .MEDSUPPLY Qty: 400 RF: 3 (DME) lancets [OneTouch UltraSoft Lancets] Misc See Dose Instructions .ROUTE .MEDSUPPLY Qty: 400 RF: 3 (DME) pen needle, diabetic [Novofine 32] 32 gauge x 1/4" needle See Dose Instructions .ROUTE .MEDSUPPLY Qty: 400 RF: 3 Lantus Solostar U-100 Insulin 100 unit/mL (3 mL) insulin pen 10 unit SUBCUT BID Qty: 30 RF: 3 insulin lispro [Humalog KwikPen Insulin] 100 unit/mL insulin pen See Rx Instructions .ROUTE .COMPLEX MDD 75 units Qty: 75 RF: 1 calcitriol 0.25 mcg capsule 0.25 mcg PO .COMPLEX Qty: 90 RF: 3 Hold Instructions: Home Medication placed on hold at Doctor's office fluconazole [Diflucan] 150 mg tablet 150 mg PO Q3D Qty: 2 RF: 2 sulfamethoxazole-trimethoprim [Bactrim] 400-80 mg tablet See Rx Instructions PO .COMPLEX Qty: 3 RF: 0 aspirin [Aspir-81] 81 mg Tablet,Delayed Release (Dr/Ec) 81 mg PO QAM RF: 0 clopidogrel [Plavix] 75 mg tablet 75 mg PO QAM RF: 0 spironolactone 25 mg tablet 25 mg PO QAM RF: 0 furosemide 20 mg tablet 40 mg PO QAM RF: 0 Referrals Referrals: Shay Hammond [Primary Care Provider] -
[2021-05-26 16:06] LABS: Partial Thromboplastin Time 26.2 Seconds (21.0-31.0); Prothrombin Time 10.1 Seconds (9.0-12.0)
[2021-05-26 16:12] LABS: BUN Creatinine Ratio 26.4 (10-20); Calcium 8.9 mg/dl (8.5-10.1); Creatinine Clr Calc Pharmacy 16.7 ml/min; Est GFR (African American) 15.6 ml/min; Est GFR (Non-African American) 13.4 ml/min
[2021-05-26 16:17] LABS: Albumin Globulin Ratio 0.7 (0.9-2); Bilirubin,Total 0.4 mg/dl (0.2-1); Globulin 4.3 gm/dl (2.5-4.0); Total Protein 7.3 gm/dl (6.4-8.2); Troponin I 0.029 ng/ml (0-0.045)
[2021-05-26] MEDS ORDERED: carvediloL 25 MG TAB PO ONE (18:33)
[2021-05-26] MEDS ORDERED: NITROGLYCERIN 0.3 MG/1 TAB 100 TAB BTL SL PRN (18:33)
--- NOTE | 2021-05-26 18:35 | History & Physical Report ---
Date of Service May 26, 2021 Assessment & Plan (1) Hypertensive urgency: Plan: Given 25 mg Coreg p.o. now -Trend troponins Patient already bradycardic will consider oral hydralazine versus calcium channel fartun -10 mg hydralazine p.o. 3 times daily (2) Chronic heart failure with preserved ejection fraction (HFpEF): Plan: Repeat echocardiogram -At dry weight and at baseline creatinine (3) CKD (chronic kidney disease): Plan: Continue spironolactone -Creatinine near baseline Holding ARB in the setting of labile kidney function per nephrology notes (4) Chest pressure: Plan: Clinically this sounds more consistent being gastrointestinal in origin -Trial of Bentyl (5) Hyperlipidemia: Plan: Previously on Crestor 40 mg daily -Unclear why this was discontinued -LFTs within normal limits will restart (6) Flatulence, eructation, and gas pain: Plan: Bentyl (7) Antiplatelet or antithrombotic long-term use: Plan: Continue 81 mg aspirin Continue 75 mg Plavix (8) H/O heart artery stent: Plan: Continue aspirin Plavix (9) CAD (coronary artery disease): History of Present Illness Chief Complaint: Chest pressure Primary Care Provider: Shay Hammond Patient is a 71-year-old female with a history of stage IV chronic kidney disease, diabetes, chronic diastolic heart failure, known coronary artery disease status post PCI with stents in the RCA and circumflex who presents with 3-day history of what she describes as chest pressure not exactly pain she is presently feeling that pressure which is 3-5 out of 10 when it is at its worst it is "1000%" what makes the pain improve is actually drinking hot water and then belching. She has not been dizzy or lightheaded, she has not missed any of her medications. Review of prior records indicates she is seen at the heart failure clinic. She was also seen by nephrology on April 21, 2021, it was noted that her creatinine has been approximately 3.5 and is chronic kidney disease stage IV 3 a, she has a history of renovascular disease status post left renal artery stent and has subsequent resistant hypertension. She is recently stopped Calcitrol because she felt that she was developing cramps and is on 12.5 mg Coreg in the morning and 25 mg Coreg at night because she feels the 25 mg causes her to feel "slow" she was taken off her ARB therapy given her labile kidney function at her last nephrology visit. Cardiovascularly she underwent a cardiac cath on October 12, 2019 at [place]; according to February heart failure records her dry weight is 200 pounds her trigger rate is 203 today she is listed at 199 pounds. Allergies Allergy/AdvReac Type Severity Reaction Status Date / Time insulin aspart Allergy Hives Verified 04/21/21 13:26 [From Novolog U-100 Insulin aspart] meperidine AdvReac Intermediate hallucinate Verified 04/21/21 13:26 s lisinopril AdvReac Mild COUGHING Verified 04/21/21 13:26 Home Medications Medication Instructions Recorded Confirmed Type valsartan 40 mg tablet 40 mg PO DAILY #90 tab 01/19/20 04/21/21 Rx carvedilol 12.5 mg tablet 12.5 mg PO .COMPLEX #270 tab 12/12/20 04/21/21 Rx calcitriol 0.25 mcg capsule 0.25 mcg PO .COMPLEX #90 cap 02/03/21 04/21/21 Rx aspirin 81 mg tablet,delayed 81 mg PO QAM 03/26/21 04/21/21 History release clopidogrel 75 mg tablet (Plavix) 75 mg PO QAM 03/26/21 04/21/21 History furosemide 20 mg tablet 40 mg PO QAM 03/26/21 04/21/21 History spironolactone 25 mg tablet 25 mg PO QAM 03/26/21 04/21/21 History sulfamethoxazole 400 See Rx Instructions PO .COMPLEX #3 04/06/21 04/21/21 Rx mg-trimethoprim 80 mg tablet tab (Bactrim) blood sugar diagnostic (OneTouch #400 ea 04/21/21 Rx Ultra Blue Test Strip) fluconazole 150 mg tablet 150 mg PO Q3D #2 tab 04/21/21 04/21/21 Rx (Diflucan) insulin glargine 100 unit/mL (3 10 unit SUBCUT BID #30 ml 04/21/21 Rx mL) subcutaneous pen (Lantus Solostar U-100 Insulin) lancets (Fidelis SeniorCareTouch UltraSoft #400 ea 04/21/21 Rx Lancets) pen needle, diabetic 32 gauge x #400 ea 04/21/21 Rx 1/4" (Novofine 32) insulin lispro 100 unit/mL See Rx Instructions .ROUTE 04/28/21 Rx subcutaneous pen (Humalog QuinnPen .COMPLEX #75 ml MDD 75 units (U-100) Insulin) Past Med/Surg History Medical History CAD (coronary artery disease) Chronic heart failure with preserved ejection fraction (HFpEF) CKD (chronic kidney disease) Diverticulosis Elevated troponin History of stent insertion of renal artery 2014 Hyperlipidemia Hypertension Hypertensive emergency LVH (left ventricular hypertrophy) Lymphedema Renal artery stenosis Status post myocardial infarction Vulvovaginal candidiasis Surgical History H/O heart artery stent Family History Other Hypertension Social History Smoking Status: Former smoker Second Hand Exposure: No; Hx Alcohol Use: No Hx Substance Use: No Preferred Language: [place] Communication Ability: Effective Nut Packer Required: No Beliefs That Will Affect Care: Anglican Anglican Beliefs: PATIENT STATES SHE NEEDS A PRIVATE ROOM FOR HER "[employer] PRAYERS" marital status: / Current Living Situation: Family Current Living Situation Comment: lives with grandson How many Children do You have: 2 Feels Safe at Home: Yes Assistive Devices: None Review of Systems Review of Systems: All systems reviewed & are unremarkable except as noted in HPI & below Physical Exam Physical Exam: General: Obese female who appears her stated age I have reviewed the recorded vital signs Neurological: Moves all 4 extremities, Psychological: GCS 15 following complex commands Eyes: Pupils are equal, round and reactive to light, anicteric sclera. Symmetrical lids. HENT: Oropharynx Clear, moist Mucous Membranes. Neck: Supple. Symmetric. trachea midline. No thyromegaly. Cardiovascular: Normal peripheral perfusion. Distal pulses and capillary refill intact. No JVD. Respiratory: Respirations are non-labored, no accessory muscle use. Breath sounds are equal. Gastrointestinal: Soft. Non-distended. Lymphatic: No cervical lymphadenopathy. Musculoskeletal: No deformity. No clubbing nor cyanosis. Results & Data Results & Data ([facility]) Vital Signs (Past 12 Hours) Vital Signs Temp Pulse Pulse Resp BP BP Pulse Ox 05/26/21 18:16 60 18 208/80 H 96 05/26/21 16:00 55 L 18 200/78 H 97 05/26/21 13:23 97 05/26/21 12:57 36.6 C 60 20 230/81 H 96 Laboratory Results 05/26/21 05/26/21 05/26/21 Range/Units 17:05 17:05 15:45 WBC (4.8-10.8) K/uL RBC (4.2-5.4) M/uL Hgb (12.0-16.0) g/dL Hct (37-47) % MCV (80-100) fL MCH (25-34) pg MCHC (32-36) g/dL RDW Std Deviation (36.4-46.3) fL RDW Coeff of Ekaterina (11.5-14.5) % Plt Count (130-400) K/uL MPV (7.4-10.4) fL Immature Gran % (Auto) % Neut % (Auto) % Lymph % (Auto) % [place] % (Auto) % Eos % (Auto) % Baso % (Auto) % Neut # (Auto) (1.4-6.5) K/uL Lymph # (Auto) (1.2-3.4) K/uL [place] # (Auto) (0.11-0.59) K/uL Eos # (Auto) (0-0.5) K/uL Baso # (Auto) (0-0.2) K/uL Immature Gran # (Auto) (0.00-0.02) K/uL PT INR APTT PTT Ratio Sodium 134 L Potassium 4.0 Chloride 107 Carbon Dioxide 20 L Anion Gap 7.0 BUN 87 H Creatinine 3.29 H Est Cr Clr Drug Dosing 16.7 Est GFR ( Amer) 15.6 Est GFR (Non-Af Amer) 13.4 BUN/Creatinine Ratio 26.4 H Glucose 116 H Calcium 8.9 Total Bilirubin 0.4 AST 8 L ALT 17 Alkaline Phosphatase 93 Troponin I 0.029 Total Protein 7.3 Albumin 3.0 L Globulin 4.3 H Albumin/Globulin Ratio 0.7 L COVID-19 Eval Order Covid19 at [facility] SARS-CoV-2 (PCR) Pending 05/26/21 05/26/21 05/26/21 Range/Units 15:45 13:19 13:19 WBC (4.8-10.8) K/uL RBC (4.2-5.4) M/uL Hgb (12.0-16.0) g/dL Hct (37-47) % MCV (80-100) fL MCH (25-34) pg MCHC (32-36) g/dL RDW Std Deviation (36.4-46.3) fL RDW Coeff of Ekaterina (11.5-14.5) % Plt Count (130-400) K/uL MPV (7.4-10.4) fL Immature Gran % (Auto) % Neut % (Auto) % Lymph % (Auto) % [place] % (Auto) % Eos % (Auto) % Baso % (Auto) % Neut # (Auto) (1.4-6.5) K/uL Lymph # (Auto) (1.2-3.4) K/uL [place] # (Auto) (0.11-0.59) K/uL Eos # (Auto) (0-0.5) K/uL Baso # (Auto) (0-0.2) K/uL Immature Gran # (Auto) (0.00-0.02) K/uL PT 10.1 Cancelled INR 1.0 Cancelled APTT 26.2 Cancelled PTT Ratio 1.0 Cancelled Sodium Cancelled Potassium Cancelled Chloride Cancelled Carbon Dioxide Cancelled Anion Gap Cancelled BUN Cancelled Creatinine Cancelled Est Cr Clr Drug Dosing Cancelled Est GFR ( Amer) Cancelled Est GFR (Non-Af Amer) Cancelled BUN/Creatinine Ratio Cancelled Glucose Cancelled Calcium Cancelled Total Bilirubin Cancelled AST Cancelled ALT Cancelled Alkaline Phosphatase Cancelled Troponin I Cancelled Total Protein Cancelled Albumin Cancelled Globulin Cancelled Albumin/Globulin Ratio Cancelled COVID-19 Eval Order SARS-CoV-2 (PCR) 05/26/21 Range/Units 13:19 WBC 12.17 H (4.8-10.8) K/uL RBC 4.42 (4.2-5.4) M/uL Hgb 12.6 (12.0-16.0) g/dL Hct 38.3 (37-47) % MCV 86.7 (80-100) fL MCH 28.5 (25-34) pg MCHC 32.9 (32-36) g/dL RDW Std Deviation 46.0 (36.4-46.3) fL RDW Coeff of Ekaterina 14.5 (11.5-14.5) % Plt Count 247 (130-400) K/uL MPV 11.7 H (7.4-10.4) fL Immature Gran % (Auto) 0.7 % Neut % (Auto) 74.7 % Lymph % (Auto) 15.9 % [place] % (Auto) 6.7 % Eos % (Auto) 1.7 % Baso % (Auto) 0.3 % Neut # (Auto) 9.09 H (1.4-6.5) K/uL Lymph # (Auto) 1.93 (1.2-3.4) K/uL [place] # (Auto) 0.81 H (0.11-0.59) K/uL Eos # (Auto) 0.21 (0-0.5) K/uL Baso # (Auto) 0.04 (0-0.2) K/uL Immature Gran # (Auto) 0.09 H (0.00-0.02) K/uL PT INR APTT PTT Ratio Sodium Potassium Chloride Carbon Dioxide Anion Gap BUN Creatinine Est Cr Clr Drug Dosing Est GFR ( Amer) Est GFR (Non-Af Amer) BUN/Creatinine Ratio Glucose Calcium Total Bilirubin AST ALT Alkaline Phosphatase Troponin I Total Protein Albumin Globulin Albumin/Globulin Ratio COVID-19 Eval Order SARS-CoV-2 (PCR) Diagnostic Findings XR chest 1V portable HISTORY: 71 years-old Female Chest Pain . Acute atypical chest pain COMPARISON: Chest radiograph 11/06/2019 TECHNIQUE: Portable AP view of the chest FINDINGS: Cardiac silhouette is enlarged. Mediastinal contours appear unchanged. No pneumothorax, pleural effusion, airspace consolidation or overt pulmonary edema. Bones of the chest appear grossly intact. IMPRESSION: Cardiomegaly without acute process. ECG Additional Comments: Initial EKG dated 26 May 2021 at 1556 demonstrates a sinus bradycardia rate of 55 left ventricular hypertrophy pattern, nonspecific T wave abnormality, this was compared to EKG dated 07 November 2019 previously T waves were inverted inferiorly Code Status & VTE Plan Code Status Full code VTE Prophylaxis Plan VTE Prophylaxis will be ordered: Yes PG Care Time/CCT Total # of Minutes Spent Total Time Spent with Patient: Total time spent is greater than 50% in coordination of care (as documented) at patient's floor/unit and/or counseling patient: Coding Level of Care Code 11607 Initial Inpt Care Lvl 3 Diagnoses Chest pressure R07.89 Hypertensive urgency I16.0 Hyperlipidemia E78.5 Hyperlipidemia type: unspecified Flatulence, eructation, and gas pain R14.3; R14.1; R14.2 Chronic heart failure with preserved ejection fraction (HFpEF) I50.32 Antiplatelet or antithrombotic long-term use Z79.02 H/O heart artery stent Z95.5 CAD (coronary artery disease) I25.10 Coronary Disease-Associated Artery/Lesion type: [place] artery [place] vs. transplanted heart: [place] heart Associated angina: without angina CKD (chronic kidney disease) N18.9 Chronic kidney disease stage: unspecified stage (1) Hyperlipidemia Hyperlipidemia type: unspecified Qualified Code(s): E78.5 - Hyperlipidemia, unspecified (2) CAD (coronary artery disease) Coronary Disease-Associated Artery/Lesion type: [place] artery [place] vs. transplanted heart: [place] heart Associated angina: without angina Qualified Code(s): I25.10 - Atherosclerotic heart disease of [place] coronary artery without angina pectoris (3) CKD (chronic kidney disease) Chronic kidney disease stage: unspecified stage Qualified Code(s): N18.9 - Chronic kidney disease, unspecified
[2021-05-26] MEDS ORDERED: carvediloL 25 MG TAB PO SCH (21:57)
[2021-05-26] MEDS ORDERED: ONDANSETRON INJ 2 MG/ML 2 ML VIAL IV PRN (21:57)
[2021-05-26] MEDS ORDERED: CARBOHYDRATES FOR HYPOGLYCEMIA PO PRN (21:57)
[2021-05-26] MEDS ORDERED: GLUCOSE 40% GEL 15 GM TUBE PO PRN (21:57)
[2021-05-26] MEDS ORDERED: ACETAMINOPHEN 325 MG TAB PO PRN (21:57)
[2021-05-26] MEDS ORDERED: DEXTROSE 50% 50 ML SYRINGE IV PRN (21:57)
[2021-05-26] MEDS ORDERED: INSULIN ASPART 100 UNITS/ML 3 ML PEN SC SCH (21:57)
[2021-05-26] MEDS ORDERED: INSULIN GLARGINE SOLOSTAR 100 UNITS/ML 3 ML PEN SQ SCH (21:57)
[2021-05-26] MEDS ORDERED: GLUCAGON FOR INJ 1 MG VIAL SQ PRN (21:57)
[2021-05-26] MEDS ORDERED: GLUCOSE 10 TABS/TUBE PO PRN (21:57)
[2021-05-26] MEDS: HEPARIN SOD 5,000 UNIT/0.5 ML VIAL SQ SCH (23:43)
[2021-05-26] MEDS: hydrALAZINE 10 MG TAB PO SCH (23:45)
[2021-05-26] MEDS: DICYCLOMINE HCL 10 MG CAP PO SCH (23:45)
[2021-05-27] MEDS: INSULIN HUMAN REGULAR SC SCH ×4 (01:41→16:56)
[2021-05-27 04:14] LABS: Basophils # (auto) 0.02 K/uL (0-0.2); Basophils % (auto) 0.2 %; Eosinophils # (auto) 0.18 K/uL (0-0.5); Eosinophils % (auto) 1.7 %; Hematocrit (blood only) 35.3 % (37-47); Hemoglobin 11.6 g/dL (12.0-16.0); Immature Granulocytes # (auto) 0.09 K/uL (0.00-0.02); Immature Granulocytes % (auto) 0.8 %; Lymphocytes # (auto) 2.01 K/uL (1.2-3.4); Lymphocytes % (auto) 18.5 %; Mean Corpuscular Hemoglobin 28.4 pg (25-34); Mean Corpuscular Hgb Conc 32.9 g/dL (32-36); Mean Corpuscular Volume 86.3 fL (80-100); Mean Platelet Volume 11.4 fL (7.4-10.4); Monocytes % (auto) 6.5 %; Neutrophils # (auto) 7.84 K/uL (1.4-6.5); Neutrophils % (auto) 72.3 %; Platelet Count 224 K/uL (130-400); RDW Coefficient of Variation 14.6 % (11.5-14.5); RDW Standard Deviation 45.4 fL (36.4-46.3); Red Blood Count 4.09 M/uL (4.2-5.4); White Blood Count 10.84 K/uL (4.8-10.8)
[2021-05-27 04:31] LABS: Partial Thromboplastin Ratio 0.8; Partial Thromboplastin Time 20.8 Seconds (21.0-31.0)
[2021-05-27 04:32] LABS: Calcium 8.3 mg/dl (8.5-10.1); Creatinine Clr Calc Pharmacy 17.2 ml/min; Est GFR (African American) 15.7 ml/min; Est GFR (Non-African American) 13.6 ml/min; Magnesium 2.1 mg/dl (1.8-2.4); Phosphorus 5.3 mg/dl (2.5-4.9); Potassium 4.1 mmol/L (3.5-5.1)
[2021-05-27] MEDS ORDERED: hydrALAZINE 10 MG TAB PO ONE (04:55)
[2021-05-27] MEDS: HEPARIN SOD 5,000 UNIT/0.5 ML VIAL SQ SCH ×2 (05:47→13:33)
[2021-05-27 07:04] LABS: Estimated Average Glucose 166 mg/dl; Hemoglobin A1C 7.4 % (4.5-5.6)
--- NOTE | 2021-05-27 07:38 | Electrocardiogram Report ---
Test Reason : Blood Pressure : / mmHG Vent. Rate : 055 BPM Atrial Rate : 055 BPM P-R Int : 162 ms QRS Dur : 090 ms QT Int : 486 ms P-R-T Axes : 059 -19 148 degrees QTc Int : 464 ms Sinus bradycardia Left ventricular hypertrophy with repolarization abnormality T-wave inversion in Anterior leads , consider ischemia Abnormal ECG When compared with ECG of 07-NOV-2019 04:22, T wave inversion now evident in Anterior leads Confirmed by Adriel Alcazar ([id number]) on 05/27/2021 7:37:37 AM Referred By: REFERRED SELF Confirmed By:Adriel Alcazar
--- NOTE | 2021-05-27 07:52 | Electrocardiogram Report ---
Test Reason : Blood Pressure : / mmHG Vent. Rate : 066 BPM Atrial Rate : 066 BPM P-R Int : 170 ms QRS Dur : 096 ms QT Int : 470 ms P-R-T Axes : 057 -05 166 degrees QTc Int : 492 ms Normal sinus rhythm Left ventricular hypertrophy with repolarization abnormality T-wave inversion in Anterior leads , consider ischemia Prolonged QT Abnormal ECG When compared with ECG of 26-MAY-2021 15:56, No significant change was found Confirmed by Adriel Alcazar ([id number]) on 05/27/2021 7:51:39 AM Referred By: REFERRED SELF Confirmed By:Adriel Alcazar
[2021-05-27 08:31] VITALS: O2SAT 97
[2021-05-27] MEDS: hydrALAZINE 10 MG TAB PO SCH (08:51)
[2021-05-27] MEDS: DICYCLOMINE HCL 10 MG CAP PO SCH ×2 (08:52→13:33)
[2021-05-27] MEDS ORDERED: SPIRONOLACTONE 25 MG TAB PO SCH (09:00)
[2021-05-27] MEDS ORDERED: ROSUVASTATIN CALCIUM 20 MG TAB PO SCH (09:00)
[2021-05-27] MEDS ORDERED: FUROSEMIDE 40 MG TAB PO SCH (09:00)
[2021-05-27] MEDS ORDERED: ASPIRIN 81 MG ECTAB PO SCH (09:00)
[2021-05-27] MEDS ORDERED: carvediloL 12.5 MG TAB PO SCH (09:00)
[2021-05-27] MEDS ORDERED: CLOPIDOGREL BISULFATE 75 MG TAB PO SCH (09:00)
--- NOTE | 2021-05-27 09:05 | Hospitalist Progress Note ---
Date of Service May 27, 2021 Assessment & Plan (1) Hypertensive urgency: Plan: Troponins negative. Creatinine at baseline. No sign of end organ failure. Continue carvedilol 12.5mg PO QAM, 25mg PO QPM Continue hydralazine 10mg PO TID Continue furosemide 40mg PO daily Continue spironolactone 25mg PO daily No ACEi/ARB due to labile renal function (2) Chronic heart failure with preserved ejection fraction (HFpEF): Plan: TTE - At dry weight on current doses of furosemide and spironolactone (3) CKD (chronic kidney disease): Plan: Continue spironolactone -Creatinine near baseline Holding ARB in the setting of labile kidney function per nephrology notes (4) Chest pressure: Plan: Clinically this sounds more consistent being gastrointestinal in origin -Trial of Bentyl (5) Hyperlipidemia: Plan: Previously on Crestor 40 mg daily, stopped due to concern this caused prior rhabdomyolysis during inpatient stay in Oct 2019. Consider restarting this when well as an outpatient. (6) Flatulence, eructation, and gas pain: Plan: Bentyl (7) Antiplatelet or antithrombotic long-term use: Plan: Continue 81 mg aspirin Continue 75 mg Plavix (8) H/O heart artery stent: Plan: Continue aspirin Plavix (9) CAD (coronary artery disease): Admission and Anticipated Discharge Date Admission Date: May 26, 2021 Results & Data Results & Data ([facility]) Vital Signs (Past 12 Hours) Vital Signs Temp Pulse Pulse Resp BP BP BP 05/27/21 08:30 37.1 C 64 18 188/72 H 05/27/21 04:00 36.8 C 67 17 188/95 H 05/27/21 03:30 63 15 05/26/21 22:56 37 C 65 19 167/60 H 05/26/21 22:04 37.0 C 60 20 167/60 H 05/26/21 21:30 37 C 58 L 24 169/55 H 05/26/21 21:01 59 L 22 169/79 H Pulse Ox 05/27/21 08:30 97 05/27/21 04:00 93 05/27/21 03:30 05/26/21 22:56 93 05/26/21 22:04 96 05/26/21 21:30 95 05/26/21 21:01 97 PG Care Time/CCT Total # of Minutes Spent Total Time Spent with Patient: Total time spent is greater than 50% in coordination of care (as documented) at patient's floor/unit and/or counseling patient: Coding Diagnoses Hypertensive urgency I16.0 Chronic heart failure with preserved ejection fraction (HFpEF) I50.32 CKD (chronic kidney disease) N18.9 Chronic kidney disease stage: unspecified stage Chest pressure R07.89 Hyperlipidemia E78.5 Hyperlipidemia type: unspecified Flatulence, eructation, and gas pain R14.3; R14.1; R14.2 Antiplatelet or antithrombotic long-term use Z79.02 H/O heart artery stent Z95.5 CAD (coronary artery disease) I25.10 Coronary Disease-Associated Artery/Lesion type: [place] artery [place] vs. transplanted heart: [place] heart Associated angina: without angina (1) CKD (chronic kidney disease) Chronic kidney disease stage: unspecified stage Qualified Code(s): N18.9 - Chronic kidney disease, unspecified (2) Hyperlipidemia Hyperlipidemia type: unspecified Qualified Code(s): E78.5 - Hyperlipidemia, unspecified (3) CAD (coronary artery disease) Coronary Disease-Associated Artery/Lesion type: [place] artery [place] vs. transplanted heart: [place] heart Associated angina: without angina Qualified Code(s): I25.10 - Atherosclerotic heart disease of [place] coronary artery without angina pectoris
[2021-05-27] MEDS ORDERED: INSULIN GLARGINE SOLOSTAR 100 UNITS/ML 3 ML PEN SC SCH (09:30)
[2021-05-27] MEDS ORDERED: FAMOTIDINE 20 MG TAB PO SCH (10:00)
[2021-05-27] MEDS ORDERED: NIFEdipine 10 MG CAP PO SCH (11:30)
[2021-05-27] MEDS ORDERED: NIFEdipine EXTENDED REL 30 MG TABCR PO SCH ×2 (11:45→12:00)
--- NOTE | 2021-05-27 13:16 | XCELERA ---
[id number]
[2021-05-27 15:34] VITALS: BP 181/70; TEMP 98.2
[2021-05-27 17:44] VITALS: PULSE 58
--- NOTE | 2021-05-27 18:04 | Discharge Summary ---
Date of Service May 27, 2021 Admission HPI Per Admitting Provider Patient is a 71-year-old female with a history of stage IV chronic kidney disease, diabetes, chronic diastolic heart failure, known coronary artery disease status post PCI with stents in the RCA and circumflex who presents with 3-day history of what she describes as chest pressure not exactly pain she is presently feeling that pressure which is 3-5 out of 10 when it is at its worst it is "1000%" what makes the pain improve is actually drinking hot water and then belching. She has not been dizzy or lightheaded, she has not missed any of her medications. Review of prior records indicates she is seen at the heart failure clinic. She was also seen by nephrology on April 21, 2021, it was noted that her creatinine has been approximately 3.5 and is chronic kidney disease stage IV 3 a, she has a history of renovascular disease status post left renal artery stent and has subsequent resistant hypertension. She is recently stopped Calcitrol because she felt that she was developing cramps and is on 12.5 mg Coreg in the morning and 25 mg Coreg at night because she feels the 25 mg causes her to feel "slow" she was taken off her ARB therapy given her labile kidney function at her last nephrology visit. Cardiovascularly she underwent a cardiac cath on October 12, 2019 at [facility]; according to February heart failure records her dry weight is 200 pounds her trigger rate is 203 today she is listed at 199 pounds. Admission Exam Per Admitting Provider General: Obese female who appears her stated age I have reviewed the recorded vital signs Neurological: Moves all 4 extremities, Psychological: GCS 15 following complex commands Eyes: Pupils are equal, round and reactive to light, anicteric sclera. Symmetrical lids. HENT: Oropharynx Clear, moist Mucous Membranes. Neck: Supple. Symmetric. trachea midline. No thyromegaly. Cardiovascular: Normal peripheral perfusion. Distal pulses and capillary refill intact. No JVD. Respiratory: Respirations are non-labored, no accessory muscle use. Breath sounds are equal. Gastrointestinal: Soft. Non-distended. Lymphatic: No cervical lymphadenopathy. Musculoskeletal: No deformity. No clubbing nor cyanosis. Principal Diagnosis Gastro-esophageal reflux Hypertensive urgency Small pericardial effusion Discharge Exam Constitutional WD/WN, vitals as above + obese; no acute distress Eyes PERRL, conjunctivae normal, anicteric sclerae Respiratory normal respiratory effort, lungs clear to auscultation Cardiovascular Rate/Rhythm: regular rate and regular rhythm Extremities: normal capillary refill and + pedal edema (trace b/l ankles) Gastrointestinal (Abdomen) normal bowel sounds, soft, nontender, no hepatosplenomegaly Skin no rashes, warm and dry Neurologic moves all extremities and awake; not confused Psychiatric A+Ox3, euthymic affect Discharge Data Allergies Allergy/AdvReac Type Severity Reaction Status Date / Time heparin Allergy Hives Verified 05/29/21 23:23 insulin aspart Allergy Hives Verified 05/29/21 16:41 [From Novolog U-100 Insulin aspart] meperidine AdvReac Intermediate hallucinate Verified 05/29/21 16:41 s lisinopril AdvReac Mild COUGHING Verified 05/29/21 16:41 Consultations 05/26/21 17:36 ED Decision to Admit Stat Hospital Course (1) Hypertensive urgency: (2) Chronic heart failure with preserved ejection fraction (HFpEF): (3) CKD (chronic kidney disease): (4) Chest pressure: (5) Hyperlipidemia: (6) Flatulence, eructation, and gas pain: (7) Antiplatelet or antithrombotic long-term use: (8) H/O heart artery stent: (9) CAD (coronary artery disease): Ayana Mcnulty is a 71 year old female admitted to [facility] from May 26-2020 due to chest pressure. Serial troponins were negative and echocardiogram showed no wall motion abnormalities. Chest pressure worse on lying down and relieved by belching is more consistent with reflux and esophagitis than cardiovascular disease therefore she was started on famotidine and Bentyl for this which relieved her symptoms. She was also noted to have hypertensive urgency. Nifedipine increased 30 to 60mg PO daily. I recommended staying for further inpatient stay to help control her blood pressure but this was declined. She continue on her usual carvedilol, furosemide and spironolactone. Suspect her headache, bilateral jaw and arm pain are due to her hypertensive urgency. Echocardiogram showed a small pericardial effusion. Inflammatory markers were relatively low and no EKG changes consistent with pericarditis. Low suspicion this is causing her chest pressure. Suspect effusion due to uremia. 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 Total Time Total Time Spent Total Time Spent (In Minutes): 45 Discharge Plan Discharge Items Patient Disposition: Home - Self-Care Reason For Visit: CHEST PRESSURE Discharge Diagnosis: Gastro-esophageal reflux Hypertensive urgency Small pericardial effusion Activity: Resume your previous activity Non-emergency contact: Primary Care Provider Call non-emergency contact if: you have any medication questions and your symptoms worsen Follow-up/Referrals: Dionisio Knott Jr, MD, [facility] [Physician] - (2 weeks for pericardial effusion follow up) Shay Hammond [Primary Care Provider] - (within the next week) Diet: Carb Consistent or DM2 and Heart Healthy Addtl Attending Provider Instructions: You were admitted to [facility] from May 26-2020 due to chest pressure. Serial troponins were negative and echocardiogram showed no wall motion abnormalities. Chest pressure worse on lying down and relieved by belching is more consistent with reflux and esophagitis than cardiovascular disease therefore you were started on famotidine and Bentyl for this which appeared to relieve your symptoms. You were however noted to have very high blood pressures in the emergency room. For ongoing treatment of this recommend increasing your outpatient nifedipine dosing to 60mg as discussed with your barber shop operator. Recommended continued inpatient stay to get your blood pressure better controlled but this was declined. Please continue on your other routine anti-hypertensives with carvedilol, furosemide and spironolactone. Suspect your headache, bilateral jaw and arm pain are due to these very high blood pressures. Your echocardiogram did show a small pericardial effusion. Recommend following up with your payroll secretary for repeat echocardiogram to continue to watch this and repeat echocardiograms as needed. Low suspicion this is causing your chest pressure given above symptoms, no consistent changes on EKG and only mildly elevated inflammatory markers but not excluded. Suspect this effusion is due to high urea levels due to your chronic kidney disease. Pending Studies at Discharge: No Stand-Alone Forms: My [facility], Smoking Cessation Medications and DC Order Prescriptions: New dicyclomine 10 mg Capsule 10 mg PO TID PRN (Reason: Abdominal Discomfort) Qty: 12 RF: 0 famotidine 10 mg tablet 10 mg PO Q2D Qty: 14 RF: 0 nifedipine 60 mg tablet extended release 24hr 60 mg PO DAILY Qty: 30 RF: 0 Continued (DME) Luna InnovationsTouch Ultra Blue Test Strip Strip See Dose Instructions .ROUTE .MEDSUPPLY Qty: 400 RF: 3 (DME) lancets [OneTouch UltraSoft Lancets] Misc See Dose Instructions .ROUTE .MEDSUPPLY Qty: 400 RF: 3 (DME) pen needle, diabetic [Novofine 32] 32 gauge x 1/4" needle See Dose Instructions .ROUTE .MEDSUPPLY Qty: 400 RF: 3 aspirin 81 mg Tablet,Delayed Release (Dr/Ec) 81 mg PO QAM RF: 0 clopidogrel [Plavix] 75 mg tablet 75 mg PO QAM RF: 0 spironolactone 25 mg tablet 25 mg PO QAM RF: 0 furosemide 20 mg tablet 40 mg PO QAM RF: 0 kh-6-qhc-epa-fish oil-vit D3 [Fish Oil-Vit D3] 300-1,000-1,000 mg-mg-unit Capsule 1 cap PO QAM RF: 0 carvedilol 12.5 mg tablet 12.5 - 25 mg PO AMPM RF: 0 insulin lispro [Humalog KwikPen Insulin] 100 unit/mL insulin pen 0 unit subcut BIDM MDD 75 units RF: 0 Lantus Solostar U-100 Insulin 100 unit/mL (3 mL) insulin pen 20 unit SUBCUT QAM RF: 0 Discontinued nifedipine 30 mg tablet extended release 24hr 30 mg PO QAM RF: 0 No Action calcitriol 0.25 mcg capsule 0.25 mcg PO 3XWK Qty: 30 RF: 3 Discharge Orders: Discharge Order (Routine); Ordered 05/27/21 Ordered By: Placido Quezada Admission Data Admit Date/Time: 05/26/21 18:23 Attending Provider: Placido Quezada Admit Provider: Domingo Johnson Primary Care Provider: Shay Hammond Other Interventions: Discharge Summary Assessment (RN) Last Done: 05/27/21 17:42 Coding Level of Care Code D/C DAY MANAGEMENT >30 MINS Diagnoses Hypertensive urgency I16.0 Chronic heart failure with preserved ejection fraction (HFpEF) I50.32 CKD (chronic kidney disease) N18.9 Chronic kidney disease stage: unspecified stage Chest pressure R07.89 Hyperlipidemia E78.5 Hyperlipidemia type: unspecified Flatulence, eructation, and gas pain R14.3; R14.1; R14.2 Antiplatelet or antithrombotic long-term use Z79.02 H/O heart artery stent Z95.5 CAD (coronary artery disease) I25.10 Associated angina: without angina Coronary Disease-Associated Artery/Lesion type: crow artery Lummi vs. transplanted heart: crow heart
--- NOTE | 2021-05-28 19:02 | Communication Note ---
By CMS guidelines, a determination that the admission or continued stay is not medically necessary has been made by a member of the UR committee and a physician for this hospital stay, therefore a Code 44 will be completed and the Inpatient admission will be changed to outpatient. Placido Jaramillo MD Member, Utilization Review committee
== END 2021-05-27 18:42 | disposition home or self-care (01) ==
LOC: ED 12:55 → INTOOBSV 18:23 → SUATTDRO 18:23 → 1E 18:23 → 2S 05-27 05:17
DX: I13.0 Hypertensive heart and chronic kidney disease with heart failure and stage 1 through stage 4 chronic kidney disease, or unspecified chronic kidney disease; R07.89 Other chest pain; Z88.8 Allergy status to other drugs, medicaments and biological substances; Z79.02 Long term (current) use of antithrombotics/antiplatelets; I25.10 Atherosclerotic heart disease of native coronary artery without angina pectoris; Z20.822 Contact with and (suspected) exposure to COVID-19; N18.9 Chronic kidney disease, unspecified; E66.9 Obesity, unspecified; K21.9 Gastro-esophageal reflux disease without esophagitis; Z79.899 Other long term (current) drug therapy; Z79.82 Long term (current) use of aspirin; Z95.818 Presence of other cardiac implants and grafts; I16.0 Hypertensive urgency; R14.3 Flatulence; I25.2 Old myocardial infarction; Z68.36 Body mass index [BMI] 36.0-36.9, adult; I50.32 Chronic diastolic (congestive) heart failure; Z87.891 Personal history of nicotine dependence; I51.7 Cardiomegaly; E78.5 Hyperlipidemia, unspecified

== ENCOUNTER 2021-05-29 14:50 | Inpatient (IN) ==
--- NOTE | 2021-05-29 15:15 | Emergency Department Note ---
History of Present Illness General Chief complaint: Chest Pain Source: patient Mode of arrival: ambulatory Limitations: no limitations History of Present Illness This patient is a 71-year-old female who has a history of coronary artery disea se but also GERD and kidney problems, comes in after having episode of chest discomfort she is been belching and burping a lot she says it starts in her head and goes into her chest she was just admitted over the weekend and discharged on Saturday for similar complaint she said she was okay Saturday and Saturday but occurred again today. She was brought in by EMS they did give her aspirin 324 mg on route route. Her blood pressure was elevated at home today although they tell me it was better on route and not elevated. She denies any shortness of breath. No trauma or injury. No pain or swelling in her legs. Home Medications Medication Instructions Recorded Confirmed Type aspirin 81 mg tablet,delayed 81 mg PO QAM 03/26/21 05/29/21 History release clopidogrel 75 mg tablet (Plavix) 75 mg PO QAM 03/26/21 05/29/21 History furosemide 20 mg tablet 40 mg PO QAM 03/26/21 05/29/21 History spironolactone 25 mg tablet 25 mg PO QAM 03/26/21 05/29/21 History blood sugar diagnostic (OneTouch #400 ea 04/21/21 Rx Ultra Blue Test Strip) lancets (OneTouch UltraSoft #400 ea 04/21/21 Rx Lancets) pen needle, diabetic 32 gauge x #400 ea 04/21/21 Rx 1/4" (Novofine 32) calcitriol 0.25 mcg capsule 0.25 mcg PO 3XWK 05/26/21 05/29/21 History carvedilol 12.5 mg tablet 12.5 - 25 mg PO AMPM 05/26/21 05/29/21 History insulin glargine 100 unit/mL (3 20 unit SUBCUT QAM 05/26/21 05/29/21 History mL) subcutaneous pen (Lantus Solostar U-100 Insulin) insulin lispro 100 unit/mL 0 unit SUBCUT BIDM MDD 75 units 05/26/21 05/29/21 History subcutaneous pen (Humalog KwikPen (U-100) Insulin) hs-5-elm-epa-fish oil-vit D3 300 1 cap PO QAM 05/26/21 05/29/21 History mg-1,000 mg-1,000 unit capsule (Fish Oil-Vit D3) dicyclomine 10 mg capsule 10 mg PO TID PRN #12 cap 05/27/21 05/29/21 Rx famotidine 10 mg tablet 10 mg PO Q2D #14 tab 05/27/21 05/29/21 Rx nifedipine 60 mg tablet,extended 60 mg PO DAILY #30 tab 05/27/21 05/29/21 Rx release 24 hr Allergies Allergy/AdvReac Type Severity Reaction Status Date / Time insulin aspart Allergy Hives Verified 05/29/21 16:41 [From Novolog U-100 Insulin aspart] meperidine AdvReac Intermediate hallucinate Verified 05/29/21 16:41 s lisinopril AdvReac Mild COUGHING Verified 05/29/21 16:41 Past Med/Surg History Medical History CAD (coronary artery disease) Chronic heart failure with preserved ejection fraction (HFpEF) CKD (chronic kidney disease) Diverticulosis Elevated troponin History of stent insertion of renal artery 2013 Hyperlipidemia Hypertension Hypertensive emergency LVH (left ventricular hypertrophy) Lymphedema Renal artery stenosis Status post myocardial infarction Vulvovaginal candidiasis Surgical History H/O heart artery stent Family History Other Hypertension Social History Smoking Status: Never smoker Second Hand Exposure: No; Hx Alcohol Use: No Hx Substance Use: No Preferred Language: Welsh Communication Ability: Effective Process Environmental Technician Required: No Beliefs That Will Affect Care: Mandaeism Mandaeism Beliefs: [employer] marital status: Single Current Living Situation: Family Current Living Situation Comment: lives with grandson How many Children do You have: 2 Feels Safe at Home: Yes Assistive Devices: Glasses Review of Systems A total of 10 systems reviewed and were otherwise negative Physical Exam Vital Signs Vital Signs - 24 hr 05/29/21 15:07 05/29/21 15:10 05/29/21 15:32 Temperature 36.7 C Temperature Source Oral Pulse Rate 63 56 L 56 L Pulse Rate from SpO2 Sensor 56 L 55 L Pulse Rhythm Regular Pulse Strength Normal Respiratory Rate 16 19 15 Respiratory Effort / Characteristics Non-Labored Respiratory Depth Normal Respiratory Pattern Regular Blood Pressure 153/82 H 153/82 H Blood Pressure Mean 105 105 Blood Pressure Position Sitting Pulse Oximetry 98 99 98 Oxygen Delivery Method Room Air Sepsis Recent Fever Within 48 Hours No Sepsis New/Unexplained Change in Mental Status N/A Sepsis Action Taken by Nursing No Action Required 05/29/21 16:01 05/29/21 16:30 05/29/21 17:00 Temperature Temperature Source Pulse Rate 57 L 56 L 58 L Pulse Rate from SpO2 Sensor 57 L 57 L 58 L Pulse Rhythm Pulse Strength Respiratory Rate 17 21 16 Respiratory Effort / Characteristics Respiratory Depth Respiratory Pattern Blood Pressure 178/77 H Blood Pressure Mean 110 Blood Pressure Position Pulse Oximetry 98 98 96 Oxygen Delivery Method Sepsis Recent Fever Within 48 Hours Sepsis New/Unexplained Change in Mental Status Sepsis Action Taken by Nursing 05/29/21 17:31 05/29/21 18:01 05/29/21 18:30 Temperature Temperature Source Pulse Rate 58 L 57 L 66 Pulse Rate from SpO2 Sensor 58 L 57 L 61 Pulse Rhythm Pulse Strength Respiratory Rate 18 20 21 Respiratory Effort / Characteristics Respiratory Depth Respiratory Pattern Blood Pressure 177/83 H Blood Pressure Mean 114 Blood Pressure Position Pulse Oximetry 96 98 97 Oxygen Delivery Method Sepsis Recent Fever Within 48 Hours Sepsis New/Unexplained Change in Mental Status Sepsis Action Taken by Nursing 05/29/21 19:01 Temperature Temperature Source Pulse Rate 60 Pulse Rate from SpO2 Sensor 57 L Pulse Rhythm Pulse Strength Respiratory Rate 17 Respiratory Effort / Characteristics Respiratory Depth Respiratory Pattern Blood Pressure 187/87 H Blood Pressure Mean 120 Blood Pressure Position Pulse Oximetry 97 Oxygen Delivery Method Sepsis Recent Fever Within 48 Hours Sepsis New/Unexplained Change in Mental Status Sepsis Action Taken by Nursing General: Well developed well nourished older female who appears in no acute distress, breathing comfortably on room air. Normal speech HEENT: Normal cephalic atraumatic. Pupils are equal round and reactive to light. Extraocular movements are intact. Oropharynx is pink with moist mucous membranes. No swelling of the mouth lips or tongue. Neck: Supple with a midline trachea. No meningeal signs or stiffness, no JVD or bruits. No Stridor. Chest: Clear to auscultation bilaterally. No wheezes or rhonchi. No increased work of breathing. Heart: Regular rate and rhythm without murmurs or gallops. Abdomen: Soft nontender, nondistended without rebound guarding or rigidity. Extremities: No cyanosis clubbing or edema. No calf tenderness or assymetry Spine/Back. Non tender to palpation. No CVA tenderness Skin: Good turgor without rashes. Neurologic exam: Cranial nerves two through 12 are intact. Motor and sensation are intact and symmetrical throughout. Course Administered Medications Insulin Aspart (Insulin Aspart 100 Units/Ml 3 Ml Pen) 0 units SC ACHS YVONNE Stop: 06/28/21 21:59 Last Admin: 05/29/21 21:59 Dose: Not Given Documented by: [id number] Cosigned by: [id number] Medical Decision Making Differential Diagnosis Acute coronary syndrome, GERD, arrhythmia, electrolyte or metabolic abnormalities, infection Medical Records Attestation: I reviewed the patient's medical records. Home Medications Current Medication List: was personally reviewed by me Laboratory Data Attestation: I reviewed the patient's lab results. Result diagrams: 05/29/21 15:30 05/29/21 15:30 Lab Results 05/29/21 05/29/21 05/29/21 Range/Units 15:30 15:30 15:30 WBC 12.84 H (4.8-10.8) K/uL RBC 4.31 (4.2-5.4) M/uL Hgb 12.2 (12.0-16.0) g/dL Hct 37.1 (37-47) % MCV 86.1 (80-100) fL MCH 28.3 (25-34) pg MCHC 32.9 (32-36) g/dL RDW Std Deviation 45.5 (36.4-46.3) fL RDW Coeff of Ekaterina 14.5 (11.5-14.5) % Plt Count 249 (130-400) K/uL MPV 11.5 H (7.4-10.4) fL Immature Gran % (Auto) 0.8 % Neut % (Auto) 79.9 % Lymph % (Auto) 11.1 % Harmon % (Auto) 6.6 % Eos % (Auto) 1.4 % Baso % (Auto) 0.2 % Neut # (Auto) 10.26 H (1.4-6.5) K/uL Lymph # (Auto) 1.43 (1.2-3.4) K/uL Harmon # (Auto) 0.85 H (0.11-0.59) K/uL Eos # (Auto) 0.18 (0-0.5) K/uL Baso # (Auto) 0.02 (0-0.2) K/uL Immature Gran # (Auto) 0.10 H (0.00-0.02) K/uL PT 10.0 (9.0-12.0) Seconds INR 1.0 (0.9-1.1) APTT 26.2 (21.0-31.0) Seconds PTT Ratio 1.0 Sodium 136 (136-145) mmol/L Potassium 4.1 (3.5-5.1) mmol/L Chloride 106 (98-107) mmol/L Carbon Dioxide 20 L (21-32) mmol/L Anion Gap 10.0 (3-11) BUN 86 H (7-18) mg/dl Creatinine 3.60 H (0.6-1.2) mg/dl Est Cr Clr Drug Dosing 15.9 ml/min Est GFR ( Amer) 14.0 ml/min Est GFR (Non-Af Amer) 12.0 ml/min BUN/Creatinine Ratio 23.8 H (10-20) Glucose 273 H (70-99) mg/dl Calcium 8.5 (8.5-10.1) mg/dl Total Bilirubin 0.3 (0.2-1) mg/dl AST 10 L (15-37) U/L ALT 17 (12-78) U/L Alkaline Phosphatase 123 H (45-117) U/L Troponin I 0.019 (0-0.045) ng/ml Total Protein 7.6 (6.4-8.2) gm/dl Albumin 3.0 L (3.4-5.0) gm/dl Globulin 4.6 H (2.5-4.0) gm/dl Albumin/Globulin Ratio 0.7 L (0.9-2) Lipase 235 (73-393) U/L Specimen Hemolysis Imaging Data Attestation: I personally reviewed and interpreted this imaging study as follows: My Impression: Chest x-rayno acute infiltrate, failure, pneumothorax upon my interpretation Radiologist's Impression: Chest X-Ray 05/29/21 15:07 XR chest 1V portable HISTORY: 71 years-old Female Chest Pain acute atypical chest pain COMPARISON: 05/26/2021 TECHNIQUE: AP view of the chest FINDINGS: Cardiac silhouette is enlarged. Calcific plaque of the thoracic aorta. No pneumothorax, pleural effusion, airspace consolidation or overt pulmonary edema. Bones of the chest appear grossly intact. IMPRESSION: Cardiomegaly without acute process. ACT 112: Negative or not required by law. The above report was generated using voice recognition software. It may contain grammatical, syntax or spelling errors. Electronically signed by: Isac Fernandez M.D. 05/29/2021 3:24 PM ECG Data Attestation: I personally reviewed and interpreted this ECG as follows: Indication: + chest pain Rate (beats per minute): 58 Rhythm: + normal sinus ECG Intervals/blocks: + Normal QRS, + Normal QT and + Normal MN ECG [place]: + Normal ECG ST segments: + Normal ST segments ECG Findings: no PACs or no PVCs Comparison ECG Date: from (05/27/21) Change: no significant change MDM Narrative This patient comes in as scribed above. She is brought in by EMS. She was placed on a cardiac cath lab radiology technologist room C8. She is here for treatment and evaluation of chest pain. She was seen over the weekend with similar complaints and sent home from the hospital. IV access was established and blood work was obtained, EKG, chest x-ray obtained. She says she feels better after getting aspirin from the paramedics. She has baseline renal insufficiency which looks slightly worse. Her troponin is not elevated. EKG does not show any definite changes compared to previous. Chest x-ray does not show an acute failure. She is no significant electrolyte or metabolic abnormalities. She tells me that they wanted to keep her longer in the hospital but she wanted to go home and convince him to discharge her on Saturday. Do think she needs further cardiac work-up, given her cardiac history although her symptoms are somewhat atypical for cardiac disease, she still is at risk. I did consult Dr. Puente and the [facility] hospitalist team to see her. Continous cardiac monitoring: Orders placed in EMR for continuous cardiac cath lab radiology technologist. Upon my interpretation, the patient was noted to be normal sinus rhythm with a rate of 75 Impression & Plan Chest pain, H/O heart artery stent, CKD (chronic kidney disease), Antiplatelet or antithrombotic long-term use Discharge Plan Visit Data Chief Complaint: Chest Pain ED Provider: Domingo Saenz Discharge Problem: Chest pain, H/O heart artery stent, CKD (chronic kidney disease), Antiplatelet or antithrombotic long-term use Patient Disposition: Admitted As Inpatient Discharge Instructions Interventions: ED Discharge Assessment Last Done: 05/29/21 20:28
--- NOTE | 2021-05-29 15:26 | XRay Report ---
XR chest 1V portable HISTORY: 71 years-old Female Chest Pain acute atypical chest pain COMPARISON: 05/26/2021 TECHNIQUE: AP view of the chest FINDINGS: Cardiac silhouette is enlarged. Calcific plaque of the thoracic aorta. No pneumothorax, pleural effus ion, airspace consolidation or overt pulmonary edema. Bones of the chest appear grossly intact. IMPRESSION: Cardiomegaly without acute process. ACT 112: Negative or not required by law. The above report was generated using voice recognition software. It may contain grammatical, syntax o r spelling errors. Electronically signed by: Isac Fernandez M.D. 05/29/2021 3:24 PM
[2021-05-29 15:51] LABS: Basophils # (auto) 0.02 K/uL (0-0.2); Basophils % (auto) 0.2 %; Eosinophils # (auto) 0.18 K/uL (0-0.5); Eosinophils % (auto) 1.4 %; Hematocrit (blood only) 37.1 % (37-47); Hemoglobin 12.2 g/dL (12.0-16.0); Immature Granulocytes % (auto) 0.8 %; Lymphocytes # (auto) 1.43 K/uL (1.2-3.4); Lymphocytes % (auto) 11.1 %; Mean Corpuscular Hemoglobin 28.3 pg (25-34); Mean Corpuscular Hgb Conc 32.9 g/dL (32-36); Mean Corpuscular Volume 86.1 fL (80-100); Mean Platelet Volume 11.5 fL (7.4-10.4); Monocytes # (auto) 0.85 K/uL (0.11-0.59); Monocytes % (auto) 6.6 %; Neutrophils # (auto) 10.26 K/uL (1.4-6.5); Neutrophils % (auto) 79.9 %; Platelet Count 249 K/uL (130-400); RDW Coefficient of Variation 14.5 % (11.5-14.5); RDW Standard Deviation 45.5 fL (36.4-46.3); Red Blood Count 4.31 M/uL (4.2-5.4); White Blood Count 12.84 K/uL (4.8-10.8)
[2021-05-29 16:06] LABS: Partial Thromboplastin Time 26.2 Seconds (21.0-31.0)
[2021-05-29 16:53] LABS: Albumin Globulin Ratio 0.7 (0.9-2); BUN Creatinine Ratio 23.8 (10-20); Bilirubin,Total 0.3 mg/dl (0.2-1); Calcium 8.5 mg/dl (8.5-10.1); Creatinine Clr Calc Pharmacy 15.9 ml/min; Globulin 4.6 gm/dl (2.5-4.0); Potassium 4.1 mmol/L (3.5-5.1); Total Protein 7.6 gm/dl (6.4-8.2); Troponin I 0.019 ng/ml (0-0.045)
--- NOTE | 2021-05-29 19:19 | History & Physical Report ---
Date of Service May 29, 2021 Assessment & Plan (1) Chest pain: Plan: Considering patient had previously ruled out, I suspect this may not be cardiac chest pain. Consider GI distress. Will trend cardiac enzymes as before I did offer the patient a stress echo, she is currently refusing because she does not "feel she can handle it ". Will consult cardiology for further recommendations Patient is also requesting GI consultation, has a colonoscopy scheduled later in the year. (2) Hypertension: Plan: Patient's blood pressure is elevated I note that she is on nifedipine, carvedilol, spironolactone, and furosemide. Previously on ARB but this was discontinued secondary to her worsening renal function. Per documentation, was resistant to increases in her Coreg as she felt that they made her feel "slow ". During her last hospitalization her nifedipine had been increased to 60 mg daily. If patient is agreeable, start hydralazine 25 mg 3 times daily, monitor for side effects in addition with other medications. (3) Chronic heart failure with preserved ejection fraction (HFpEF): Plan: Patient is on medications as noted above Does not appear to be in acute CHF at this time. I did review her resting echo from 05/27, has hyperdynamic left ventricle with LVEF of 70%, mild to moderate mitral regurg (4) CKD (chronic kidney disease): Plan: Creatinine is at 3.6, this appears to be her baseline but there does appear to be a slow worsening over time. Patient follows with Dr. Sandoval. Consider consultation (5) Uncontrolled diabetes mellitus, with long-term current use of insulin: Plan: Patient is on Lantus which we will continue Diabetic diet Sliding scale for mealtime insulin History of Present Illness Chief Complaint: Chest pain Primary Care Provider: Shay Hammond This is a 71-year-old female with past medical history of stage IV chronic kidney disease, diabetes, chronic diastolic CHF that presents today complaining of chest pain. Patient is a good historian. Patient has been treated here for chest pressure. Patient was discharged, she tells me that she did not like her roommate with prompted her to leave the hospital. However, she felt she may have left too soon. I do see is from records that she did rule out at that time but had ongoing hypertension. Patient tells me that after her depression in the hospital she had no further issues over the weekend but started to have chest pain again earlier today. She is very specific that this is a "pressure" and not pain. She did note that belching did improve this somewhat. She denies of the symptoms of shortness of breath, palpitations, or diaphoresis. She had previously noted that she had gained several pounds prior to presentation last time which may have been related to her ongoing worsening renal function. At time my evaluation, she does not appear to be in any distress and denies any chest pain. However, she is significantly hypertensive on the monitor. Allergies Allergy/AdvReac Type Severity Reaction Status Date / Time insulin aspart Allergy Hives Verified 05/29/21 16:41 [From Novolog U-100 Insulin aspart] meperidine AdvReac Intermediate hallucinate Verified 05/29/21 16:41 s lisinopril AdvReac Mild COUGHING Verified 05/29/21 16:41 Home Medications Medication Instructions Recorded Confirmed Type aspirin 81 mg tablet,delayed 81 mg PO QAM 03/26/21 05/29/21 History release clopidogrel 75 mg tablet (Plavix) 75 mg PO QAM 03/26/21 05/29/21 History furosemide 20 mg tablet 40 mg PO QAM 03/26/21 05/29/21 History spironolactone 25 mg tablet 25 mg PO QAM 03/26/21 05/29/21 History blood sugar diagnostic (OneTouch #400 ea 04/21/21 Rx Ultra Blue Test Strip) lancets (OneTouch UltraSoft #400 ea 04/21/21 Rx Lancets) pen needle, diabetic 32 gauge x #400 ea 04/21/21 Rx 1/4" (Novofine 32) calcitriol 0.25 mcg capsule 0.25 mcg PO 3XWK 05/26/21 05/29/21 History carvedilol 12.5 mg tablet 12.5 - 25 mg PO AMPM 05/26/21 05/29/21 History insulin glargine 100 unit/mL (3 20 unit SUBCUT QAM 05/26/21 05/29/21 History mL) subcutaneous pen (Lantus Solostar U-100 Insulin) insulin lispro 100 unit/mL 0 unit SUBCUT BIDM MDD 75 units 05/26/21 05/29/21 History subcutaneous pen (Humalog KwikPen (U-100) Insulin) [id number] oil-vit D3 300 1 cap PO QAM 05/26/21 05/29/21 History mg-1,000 mg-1,000 unit capsule (Fish Oil-Vit D3) dicyclomine 10 mg capsule 10 mg PO TID PRN #12 cap 05/27/21 05/29/21 Rx famotidine 10 mg tablet 10 mg PO Q2D #14 tab 05/27/21 05/29/21 Rx nifedipine 60 mg tablet,extended 60 mg PO DAILY #30 tab 05/27/21 05/29/21 Rx release 24 hr Past Med/Surg History Medical History CAD (coronary artery disease) Chronic heart failure with preserved ejection fraction (HFpEF) CKD (chronic kidney disease) Diverticulosis Elevated troponin History of stent insertion of renal artery 2013 Hyperlipidemia Hypertension Hypertensive emergency LVH (left ventricular hypertrophy) Lymphedema Renal artery stenosis Status post myocardial infarction Vulvovaginal candidiasis Surgical History H/O heart artery stent Family History Other Hypertension Social History Smoking Status: Never smoker Second Hand Exposure: No; Hx Alcohol Use: No Hx Substance Use: No Preferred Language: Malay Communication Ability: Effective Mobility Architect Required: No Beliefs That Will Affect Care: Rastafarian Rastafarian Beliefs: Eastern Hoahaoism marital status: Single Current Living Situation: Family Current Living Situation Comment: lives with grandson How many Children do You have: 2 Feels Safe at Home: Yes Assistive Devices: Glasses Review of Systems Constitutional: no fever, no chills, no weakness, no weight loss and no weight gain Eyes: as per Subjective / HPI Respiratory: no cough, no chest congestion, no dyspnea and no dyspnea on exertion Cardiovascular: + chest pain; no radiating jaw, neck or arm pain, no orthopnea, no palpitations, no lightheadedness and no edema Gastrointestinal: no abdominal pain, no nausea, no vomiting, no constipation and no diarrhea/loose stools Genitourinary: no dysuria, no difficulty urinating, no urinary frequency, no urinary hesitancy, no urinary urgency and no flank pain Musculoskeletal: no back pain, no neck pain, no joint pain, no stiffness and no myalgia Integumentary: no rash Neurologic: no gait abnormality, no unsteadiness, no falls and no generalized weakness Physical Exam Constitutional: cooperative; no acute distress Neck: trachea midline, no thyromegaly Respiratory: normal respiratory effort Auscultation: lungs clear to auscultation bilaterally; no crackles, no rales, no rhonchi and no wheezes Cardiovascular: Rate/Rhythm: regular rate and regular rhythm Heart Sounds: normal S1 and normal S2 Gastrointestinal (Abdomen): Inspection/Auscultation: abdomen normal to inspection Percussion/Palpation: abdomen soft; abdomen nontender, no guarding, abdomen not rigid and no hepatosplenomegaly Skin: no rashes, warm and dry Results & Data Results & Data ([facility]) Vital Signs (Past 12 Hours) Vital Signs Temp Pulse Resp BP Pulse Ox 05/29/21 17:31 58 L 18 177/83 H 96 05/29/21 17:00 58 L 16 178/77 H 96 05/29/21 16:30 56 L 21 98 05/29/21 16:01 57 L 17 98 05/29/21 15:32 56 L 15 98 05/29/21 15:10 56 L 19 153/82 H 99 05/29/21 15:07 36.7 C 63 16 153/82 H 98 Laboratory Results Laboratory Results WBC 12.84 K/uL (4.8-10.8) H 05/29/21 15:30 RBC 4.31 M/uL (4.2-5.4) 05/29/21 15:30 Hgb 12.2 g/dL (12.0-16.0) 05/29/21 15:30 Hct 37.1 % (37-47) 05/29/21 15:30 MCV 86.1 fL (80-100) 05/29/21 15:30 MCH 28.3 pg (25-34) 05/29/21 15:30 MCHC 32.9 g/dL (32-36) 05/29/21 15:30 RDW Std Deviation 45.5 fL (36.4-46.3) 05/29/21 15:30 RDW Coeff of Ekaterina 14.5 % (11.5-14.5) 05/29/21 15:30 Plt Count 249 K/uL (130-400) 05/29/21 15:30 MPV 11.5 fL (7.4-10.4) H 05/29/21 15:30 Immature Gran % (Auto) 0.8 % 05/29/21 15:30 Neut % (Auto) 79.9 % 05/29/21 15:30 Lymph % (Auto) 11.1 % 05/29/21 15:30 [place] % (Auto) 6.6 % 05/29/21 15:30 Eos % (Auto) 1.4 % 05/29/21 15:30 Baso % (Auto) 0.2 % 05/29/21 15:30 Neut # (Auto) 10.26 K/uL (1.4-6.5) H 05/29/21 15:30 Lymph # (Auto) 1.43 K/uL (1.2-3.4) 05/29/21 15:30 [place] # (Auto) 0.85 K/uL (0.11-0.59) H 05/29/21 15:30 Eos # (Auto) 0.18 K/uL (0-0.5) 05/29/21 15:30 Baso # (Auto) 0.02 K/uL (0-0.2) 05/29/21 15:30 Immature Gran # (Auto) 0.10 K/uL (0.00-0.02) H 05/29/21 15:30 PT 10.0 Seconds (9.0-12.0) 05/29/21 15:30 INR 1.0 (0.9-1.1) 05/29/21 15:30 APTT 26.2 Seconds (21.0-31.0) 05/29/21 15:30 PTT Ratio 1.0 05/29/21 15:30 Sodium 136 mmol/L (136-145) 05/29/21 15:30 Potassium 4.1 mmol/L (3.5-5.1) 05/29/21 15:30 Chloride 106 mmol/L (98-107) 05/29/21 15:30 Carbon Dioxide 20 mmol/L (21-32) L 05/29/21 15:30 Anion Gap 10.0 (3-11) 05/29/21 15:30 BUN 86 mg/dl (7-18) H 05/29/21 15:30 Creatinine 3.60 mg/dl (0.6-1.2) H 05/29/21 15:30 Est Cr Clr Drug Dosing 15.9 ml/min 05/29/21 15:30 Est GFR ( Amer) 14.0 ml/min 05/29/21 15:30 Est GFR (Non-Af Amer) 12.0 ml/min 05/29/21 15:30 BUN/Creatinine Ratio 23.8 (10-20) H 05/29/21 15:30 Glucose 273 mg/dl (70-99) H 05/29/21 15:30 Calcium 8.5 mg/dl (8.5-10.1) 05/29/21 15:30 Total Bilirubin 0.3 mg/dl (0.2-1) 05/29/21 15:30 AST 10 U/L (15-37) L 05/29/21 15:30 ALT 17 U/L (12-78) 05/29/21 15:30 Alkaline Phosphatase 123 U/L (45-117) H 05/29/21 15:30 Troponin I 0.019 ng/ml (0-0.045) 05/29/21 15:30 Total Protein 7.6 gm/dl (6.4-8.2) 05/29/21 15:30 Albumin 3.0 gm/dl (3.4-5.0) L 05/29/21 15:30 Globulin 4.6 gm/dl (2.5-4.0) H 05/29/21 15:30 Albumin/Globulin Ratio 0.7 (0.9-2) L 05/29/21 15:30 Lipase 235 U/L (73-393) 05/29/21 15:30 Specimen Hemolysis 05/29/21 15:30 Impressions Chest X-Ray 05/29/21 15:07 XR chest 1V portable HISTORY: 71 years-old Female Chest Pain acute atypical chest pain COMPARISON: 05/26/2021 TECHNIQUE: AP view of the chest FINDINGS: Cardiac silhouette is enlarged. Calcific plaque of the thoracic aorta. No pneumothorax, pleural effusion, airspace consolidation or overt pulmonary edema. Bones of the chest appear grossly intact. IMPRESSION: Cardiomegaly without acute process. ACT 112: Negative or not required by law. The above report was generated using voice recognition software. It may contain grammatical, syntax or spelling errors. Electronically signed by: Isac Fernandez M.D. 05/29/2021 3:24 PM PG Care Time/CCT Total # of Minutes Spent Total Time Spent with Patient: Total time spent is greater than 50% in coordination of care (as documented) at patient's floor/unit and/or counseling patient: Coding Level of Care Code 30986 Initial Inpt Care Lvl 3 Diagnoses Chest pain R07.9 Chest pain type: unspecified Chronic heart failure with preserved ejection fraction (HFpEF) I50.32 CKD (chronic kidney disease) N18.9 Chronic kidney disease stage: unspecified stage Hypertension I10 Hypertension type: essential hypertension Uncontrolled diabetes mellitus, with long-term current use of insulin E11.65; Z79.4 (1) Chest pain Chest pain type: unspecified Qualified Code(s): R07.9 - Chest pain, unspecified (2) CKD (chronic kidney disease) Chronic kidney disease stage: unspecified stage Qualified Code(s): N18.9 - Chronic kidney disease, unspecified (3) Hypertension Hypertension type: essential hypertension Qualified Code(s): I10 - Essential (primary) hypertension
[2021-05-29] MEDS ORDERED: GLUCOSE 40% GEL 15 GM TUBE PO PRN (21:26)
[2021-05-29] MEDS ORDERED: DEXTROSE 50% 50 ML SYRINGE IV PRN (21:26)
[2021-05-29] MEDS ORDERED: GLUCAGON FOR INJ 1 MG VIAL SQ PRN (21:26)
[2021-05-29] MEDS ORDERED: GLUCOSE 10 TABS/TUBE PO PRN (21:26)
[2021-05-29] MEDS ORDERED: CARBOHYDRATES FOR HYPOGLYCEMIA PO PRN (21:26)
[2021-05-29] MEDS: INSULIN ASPART 100 UNITS/ML 3 ML PEN SC SCH (21:59)
[2021-05-29] MEDS: hydrALAZINE HCL 25 MG TAB PO SCH (22:33)
[2021-05-29] MEDS: HEPARIN SOD 5,000 UNIT/0.5 ML VIAL SQ SCH (22:33)
[2021-05-29] MEDS ORDERED: PNEUMOCOCCAL POLYSACCHARIDES 25 MCG/0.5 ML VIAL/SYR IM ONE (23:12)
[2021-05-29] MEDS ORDERED: hydrALAZINE HCL 25 MG TAB PO PRN (23:17)
--- NOTE | 2021-05-29 23:29 | Communication Note ---
Date of Service: May 29, 2021 Night made aware that patient refused her heparin due to allergy, has reportedly gotten hives in the past from it. Held heparin and started SCDs. Lovenox not an option given patient's kidney function. Will let day team decide if another DVT prophylaxis agent is more appropriate. Resident Activity Tracking Resident Involvement: Resident Care Provided Care Provided: Adult Hospital Medicine
[2021-05-30 03:12] LABS: Basophils # (auto) 0.03 K/uL (0-0.2); Basophils % (auto) 0.3 %; Eosinophils # (auto) 0.23 K/uL (0-0.5); Hematocrit (blood only) 37.6 % (37-47); Hemoglobin 12.4 g/dL (12.0-16.0); Immature Granulocytes # (auto) 0.09 K/uL (0.00-0.02); Immature Granulocytes % (auto) 0.8 %; Lymphocytes # (auto) 2.13 K/uL (1.2-3.4); Lymphocytes % (auto) 18.2 %; Mean Corpuscular Hemoglobin 28.6 pg (25-34); Mean Corpuscular Volume 86.8 fL (80-100); Mean Platelet Volume 11.1 fL (7.4-10.4); Monocytes # (auto) 0.72 K/uL (0.11-0.59); Monocytes % (auto) 6.1 %; Neutrophils # (auto) 8.51 K/uL (1.4-6.5); Neutrophils % (auto) 72.6 %; Platelet Count 238 K/uL (130-400); RDW Coefficient of Variation 14.6 % (11.5-14.5); RDW Standard Deviation 46.7 fL (36.4-46.3); Red Blood Count 4.33 M/uL (4.2-5.4); White Blood Count 11.71 K/uL (4.8-10.8)
[2021-05-30 03:38] LABS: Calcium 8.6 mg/dl (8.5-10.1); Creatinine Clr Calc Pharmacy 16.8 ml/min; Est GFR (African American) 14.9 ml/min; Est GFR (Non-African American) 12.9 ml/min; Magnesium 2.2 mg/dl (1.8-2.4); Potassium 3.9 mmol/L (3.5-5.1)
[2021-05-30 03:52] LABS: Troponin I 0.098 ng/ml (0-0.045)
--- NOTE | 2021-05-30 04:20 | Communication Note ---
Date of Service: May 30, 2021 Night was notified that patient had a 3rd troponin come back at 0.098 after the first two had been negative. Discussed with attending who recommended adding nitro-bid ext 2in q6h, getting a repeat EKG, making sure cardiology was consulted, and making sure we had a recent echo. Ordered the nitro-bid and repeat EKG - cardiology already consulted, already had echo from a few days ago. Resident Activity Tracking Resident Involvement: Resident Care Provided Care Provided: Adult Hospital Medicine
[2021-05-30] MEDS: NITROGLYCERIN 2% OINTMENT 30GM TUBE EXT SCH ×3 (04:41→18:20)
[2021-05-30] MEDS: ACETAMINOPHEN 325 MG TAB PO PRN ×3 (06:41→21:49)
[2021-05-30] MEDS: DICYCLOMINE HCL 10 MG CAP PO PRN ×4 (06:41→20:55)
[2021-05-30] MEDS: CLOPIDOGREL BISULFATE 75 MG TAB PO SCH (07:58)
[2021-05-30] MEDS: ASPIRIN 81 MG ECTAB PO SCH (07:59)
[2021-05-30] MEDS: FUROSEMIDE 40 MG TAB PO SCH (07:59)
[2021-05-30] MEDS: SPIRONOLACTONE 25 MG TAB PO SCH (07:59)
[2021-05-30] MEDS: NIFEdipine EXTENDED REL 30 MG TABCR PO SCH (07:59)
[2021-05-30] MEDS: hydrALAZINE HCL 25 MG TAB PO SCH ×3 (07:59→20:53)
[2021-05-30] MEDS: OMEGA-3 (PURIFIED FISH OIL) 1 GM CAP PO SCH (08:00)
[2021-05-30] MEDS: FAMOTIDINE 10 MG TABLET PO SCH (08:00)
[2021-05-30] MEDS: INSULIN ASPART 100 UNITS/ML 3 ML PEN SC SCH ×2 (08:45→12:07)
[2021-05-30] MEDS ORDERED: INSULIN GLARGINE SOLOSTAR 100 UNITS/ML 3 ML PEN SQ SCH (09:00)
--- NOTE | 2021-05-30 09:03 | Gastrointestinal Consultation ---
Date of Consultation May 30, 2021 Assessment & Plan (1) Chest pain: 71 year old female admitted w/ CP undergoing cardiac workup GI asked to evaluate as previous cardiac workup as negative Would recommend cardiac workup Can start PO PPI twice daily NPO after midnight If cardiac workup negative and cleared can have EGD Saturday Thank you for allowing us to participate in the care of this patient. Please call with any acute changes, questions or concerns. Please see addendum below with additional recommendation from my supervising physician. Supervising Physician Co-Signing Physician Notes I have seen and examined the patient with JACQUELINE Cabral whose note reflects our findings and plan. Patient with cardiac history last seen by cardiology in October. Having chest pain and pressure. Once cleared by cardiology, will plan for EGD to evaluate for esophagitis and PUD. History of Present Illness Reason for Consultation: chest pain Requesting Physician: Pilar Attending Physician: Placido Quezada MD History of Present Illness 71 year old female with history of stage IV chronic kidney disease, diabetes, chronic diastolic CHF that presents today complaining of chest pain - GI asked to evaluate for GERD. She notes intermittent chest pressure, squeezing radiating to her jaw and down both arms. This is associated with burping 1-2 episodes and then notes she sometimes feels better. She rarely gets reflux or regurgitation notes maybe 1-2 times a month. Baby ASA No other NSAIDs Denies ETOH Denies tobacco Allergies Allergy/AdvReac Type Severity Reaction Status Date / Time heparin Allergy Hives Verified 05/29/21 23:23 insulin aspart Allergy Hives Verified 05/29/21 16:41 [From Novolog U-100 Insulin aspart] meperidine AdvReac Intermediate hallucinate Verified 05/29/21 16:41 s lisinopril AdvReac Mild COUGHING Verified 05/29/21 16:41 Home Medications Medication Instructions Recorded Confirmed Type aspirin 81 mg tablet,delayed 81 mg PO QAM 03/26/21 05/29/21 History release clopidogrel 75 mg tablet (Plavix) 75 mg PO QAM 03/26/21 05/29/21 History furosemide 20 mg tablet 40 mg PO QAM 03/26/21 05/29/21 History spironolactone 25 mg tablet 25 mg PO QAM 03/26/21 05/29/21 History blood sugar diagnostic (OneTouch #400 ea 04/21/21 Rx Ultra Blue Test Strip) lancets (OneTouch UltraSoft #400 ea 04/21/21 Rx Lancets) pen needle, diabetic 32 gauge x #400 ea 04/21/21 Rx 1/4" (Novofine 32) calcitriol 0.25 mcg capsule 0.25 mcg PO 3XWK 05/26/21 05/29/21 History carvedilol 12.5 mg tablet 12.5 - 25 mg PO AMPM 05/26/21 05/29/21 History insulin glargine 100 unit/mL (3 20 unit SUBCUT QAM 05/26/21 05/29/21 History mL) subcutaneous pen (Lantus Solostar U-100 Insulin) insulin lispro 100 unit/mL 0 unit SUBCUT BIDM MDD 75 units 05/26/21 05/29/21 History subcutaneous pen (Humalog KwikPen (U-100) Insulin) [id number] oil-vit D3 300 1 cap PO QAM 05/26/21 05/29/21 History mg-1,000 mg-1,000 unit capsule (Fish Oil-Vit D3) dicyclomine 10 mg capsule 10 mg PO TID PRN #12 cap 05/27/21 05/29/21 Rx famotidine 10 mg tablet 10 mg PO Q2D #14 tab 05/27/21 05/29/21 Rx nifedipine 60 mg tablet,extended 60 mg PO DAILY #30 tab 05/27/21 05/29/21 Rx release 24 hr Patient History Medical History CAD (coronary artery disease) Chronic heart failure with preserved ejection fraction (HFpEF) CKD (chronic kidney disease) Diverticulosis Elevated troponin History of stent insertion of renal artery 2014 Hyperlipidemia Hypertension Hypertensive emergency LVH (left ventricular hypertrophy) Lymphedema Renal artery stenosis Status post myocardial infarction Vulvovaginal candidiasis Surgical History H/O heart artery stent Family History Other Hypertension Social History Smoking Status: Never smoker Second Hand Exposure: No; Hx Alcohol Use: No Hx Substance Use: No Preferred Language: Tajik Communication Ability: Effective Presto Log Operator Required: No Beliefs That Will Affect Care: Confucianism Confucianism Beliefs: Eastern Oriental Orthodox marital status: Single Current Living Situation: Family Current Living Situation Comment: lives with grandson How many Children do You have: 2 Feels Safe at Home: Yes Assistive Devices: Glasses Review of Systems Review of Systems: All systems reviewed & are unremarkable except as noted in HPI & below Physical Exam Constitutional: WD/WN, vitals as above Respiratory: normal respiratory effort, lungs clear to auscultation Cardiovascular: RRR, no murmur, no edema Gastrointestinal (Abdomen): normal bowel sounds, soft, nontender, no hepatosplenomegaly Skin: no rashes, warm and dry Results & Data ([facility]) Vital Signs (Past 12 Hours) Vital Signs Temp Pulse Pulse Resp BP Pulse Ox 05/30/21 06:59 36.8 C 64 18 170/79 H 97 05/30/21 04:13 36.5 C 63 18 147/82 H 97 05/30/21 00:01 62 05/29/21 23:44 36.6 C 64 17 178/83 H 97 05/29/21 22:36 183/75 H Laboratory Results 05/30/21 05/30/21 05/30/21 Range/Units 07:12 03:01 03:01 WBC 11.71 H (4.8-10.8) K/uL RBC 4.33 (4.2-5.4) M/uL Hgb 12.4 (12.0-16.0) g/dL Hct 37.6 (37-47) % MCV 86.8 (80-100) fL MCH 28.6 (25-34) pg MCHC 33.0 (32-36) g/dL RDW Std Deviation 46.7 H (36.4-46.3) fL RDW Coeff of Ekaterina 14.6 H (11.5-14.5) % Plt Count 238 (130-400) K/uL MPV 11.1 H (7.4-10.4) fL Immature Gran % (Auto) 0.8 % Neut % (Auto) 72.6 % Lymph % (Auto) 18.2 % [place] % (Auto) 6.1 % Eos % (Auto) 2.0 % Baso % (Auto) 0.3 % Neut # (Auto) 8.51 H (1.4-6.5) K/uL Lymph # (Auto) 2.13 (1.2-3.4) K/uL [place] # (Auto) 0.72 H (0.11-0.59) K/uL Eos # (Auto) 0.23 (0-0.5) K/uL Baso # (Auto) 0.03 (0-0.2) K/uL Immature Gran # (Auto) 0.09 H (0.00-0.02) K/uL PT (9.0-12.0) Seconds INR (0.9-1.1) APTT (21.0-31.0) Seconds PTT Ratio Sodium 139 (136-145) mmol/L Potassium 3.9 (3.5-5.1) mmol/L Chloride 110 H (98-107) mmol/L Carbon Dioxide 22 (21-32) mmol/L Anion Gap 8.0 (3-11) BUN 88 H (7-18) mg/dl Creatinine 3.40 H (0.6-1.2) mg/dl Est Cr Clr Drug Dosing 16.8 ml/min Est GFR ( Amer) 14.9 ml/min Est GFR (Non-Af Amer) 12.9 ml/min BUN/Creatinine Ratio 26.0 H (10-20) Glucose 144 H (70-99) mg/dl POC Glucose 226 H (70-99) mg/dl Calcium 8.6 (8.5-10.1) mg/dl Magnesium 2.2 (1.8-2.4) mg/dl Total Bilirubin (0.2-1) mg/dl AST (15-37) U/L ALT (12-78) U/L Alkaline Phosphatase (45-117) U/L Troponin I 0.098 H* (0-0.045) ng/ml Total Protein (6.4-8.2) gm/dl Albumin (3.4-5.0) gm/dl Globulin (2.5-4.0) gm/dl Albumin/Globulin Ratio (0.9-2) Lipase (73-393) U/L Specimen Hemolysis 05/29/21 05/29/21 05/29/21 Range/Units 21:46 21:01 15:30 WBC (4.8-10.8) K/uL RBC (4.2-5.4) M/uL Hgb (12.0-16.0) g/dL Hct (37-47) % MCV (80-100) fL MCH (25-34) pg MCHC (32-36) g/dL RDW Std Deviation (36.4-46.3) fL RDW Coeff of Ekaterina (11.5-14.5) % Plt Count (130-400) K/uL MPV (7.4-10.4) fL Immature Gran % (Auto) % Neut % (Auto) % Lymph % (Auto) % [place] % (Auto) % Eos % (Auto) % Baso % (Auto) % Neut # (Auto) (1.4-6.5) K/uL Lymph # (Auto) (1.2-3.4) K/uL [place] # (Auto) (0.11-0.59) K/uL Eos # (Auto) (0-0.5) K/uL Baso # (Auto) (0-0.2) K/uL Immature Gran # (Auto) (0.00-0.02) K/uL PT (9.0-12.0) Seconds INR (0.9-1.1) APTT (21.0-31.0) Seconds PTT Ratio Sodium 136 (136-145) mmol/L Potassium 4.1 (3.5-5.1) mmol/L Chloride 106 (98-107) mmol/L Carbon Dioxide 20 L (21-32) mmol/L Anion Gap 10.0 (3-11) BUN 86 H (7-18) mg/dl Creatinine 3.60 H (0.6-1.2) mg/dl Est Cr Clr Drug Dosing 15.9 ml/min Est GFR ( Amer) 14.0 ml/min Est GFR (Non-Af Amer) 12.0 ml/min BUN/Creatinine Ratio 23.8 H (10-20) Glucose 273 H (70-99) mg/dl POC Glucose 112 H (70-99) mg/dl Calcium 8.5 (8.5-10.1) mg/dl Magnesium (1.8-2.4) mg/dl Total Bilirubin 0.3 (0.2-1) mg/dl AST 10 L (15-37) U/L ALT 17 (12-78) U/L Alkaline Phosphatase 123 H (45-117) U/L Troponin I 0.022 0.019 (0-0.045) ng/ml Total Protein 7.6 (6.4-8.2) gm/dl Albumin 3.0 L (3.4-5.0) gm/dl Globulin 4.6 H (2.5-4.0) gm/dl Albumin/Globulin Ratio 0.7 L (0.9-2) Lipase 235 (73-393) U/L Specimen Hemolysis 05/29/21 05/29/21 Range/Units 15:30 15:30 WBC 12.84 H (4.8-10.8) K/uL RBC 4.31 (4.2-5.4) M/uL Hgb 12.2 (12.0-16.0) g/dL Hct 37.1 (37-47) % MCV 86.1 (80-100) fL MCH 28.3 (25-34) pg MCHC 32.9 (32-36) g/dL RDW Std Deviation 45.5 (36.4-46.3) fL RDW Coeff of Ekaterina 14.5 (11.5-14.5) % Plt Count 249 (130-400) K/uL MPV 11.5 H (7.4-10.4) fL Immature Gran % (Auto) 0.8 % Neut % (Auto) 79.9 % Lymph % (Auto) 11.1 % [place] % (Auto) 6.6 % Eos % (Auto) 1.4 % Baso % (Auto) 0.2 % Neut # (Auto) 10.26 H (1.4-6.5) K/uL Lymph # (Auto) 1.43 (1.2-3.4) K/uL [place] # (Auto) 0.85 H (0.11-0.59) K/uL Eos # (Auto) 0.18 (0-0.5) K/uL Baso # (Auto) 0.02 (0-0.2) K/uL Immature Gran # (Auto) 0.10 H (0.00-0.02) K/uL PT 10.0 (9.0-12.0) Seconds INR 1.0 (0.9-1.1) APTT 26.2 (21.0-31.0) Seconds PTT Ratio 1.0 Sodium (136-145) mmol/L Potassium (3.5-5.1) mmol/L Chloride (98-107) mmol/L Carbon Dioxide (21-32) mmol/L Anion Gap (3-11) BUN (7-18) mg/dl Creatinine (0.6-1.2) mg/dl Est Cr Clr Drug Dosing ml/min Est GFR ( Amer) ml/min Est GFR (Non-Af Amer) ml/min BUN/Creatinine Ratio (10-20) Glucose (70-99) mg/dl POC Glucose (70-99) mg/dl Calcium (8.5-10.1) mg/dl Magnesium (1.8-2.4) mg/dl Total Bilirubin (0.2-1) mg/dl AST (15-37) U/L ALT (12-78) U/L Alkaline Phosphatase (45-117) U/L Troponin I (0-0.045) ng/ml Total Protein (6.4-8.2) gm/dl Albumin (3.4-5.0) gm/dl Globulin (2.5-4.0) gm/dl Albumin/Globulin Ratio (0.9-2) Lipase (73-393) U/L Specimen Hemolysis (1) Chest pain Chest pain type: precordial pain Qualified Code(s): R07.2 - Precordial pain
[2021-05-30] MEDS ORDERED: PHARMACY GLYCEMIC MGMT CONSULT PRN (13:15)
--- NOTE | 2021-05-30 13:43 | Pharmacy Report ---
Pharmacy Glycemic Short Note 2 - Date of Service May 30, 2021 - Glycemic Short BSG Results (Last 24 hours): 05/29/21 05/29/21 05/30/21 15:30 21:01 03:01 Glucose 273 H 144 H POC Glucose 112 H 05/30/21 05/30/21 07:12 11:21 Glucose POC Glucose 226 H 177 H OUTPATIENT ANTIDIABETIC REGIMEN: * A1c 7.4% 05/30/21 * Lantus 20 units QAM; Humalog 10 units TIDM; correction w/ lunch and dinner ASSESSMENT: * Patient admitted with chest pain, plans for EGD tomorrow if cleared by cardiology, will be NPO after midnight * Fasting this AM was 226 mg/dL, outpatient lantus dose ordered this morning, wi ll add scale up to 10 additional units this evening if needed * Novolog switched to humalog d/t pt allergy, will tighten CF/CR closer to weight based stress of 2 and total outpatient daily dose stress of 2 * Will continue to monitor trends to make adjustments PLAN FOR INPATIENT GLYCEMIC CONTROL: * Hold outpatient oral diabetes medications * Basal insulin * Lantus 20 units this morning, 0-10 units this evening * Bolus insulin * NovoLog per scale ACHS or Q6hrs while NPO * Goal Range: Low 110 mg/dL - High 140 mg/dL * Correction Factor: 25 mg/dL/unit * Nutritional / Prandial insulin per carb ratio of 1 unit per 8 grams CHO consumed PLAN FOR DISCHARGE: * tbd
--- NOTE | 2021-05-30 13:58 | Hospitalist Progress Note ---
Date of Service May 30, 2021 Assessment & Plan (1) Chest pain: Plan: Refused dobutamine stress echo due to prior bad experience with this. Given lower likelihood of cardiovascular disease and CKD would advise against cardiac catheterization but will leave this up to cardiology since she has known coronary artery disease. Inflammatory markers not significantly impressive last admission and given improvement of chest tightness with belching and resolution of symptoms currently this did not fit with pericarditis but will repeat limited TTE to assess whether pericardial effusion is increasing. This was suspected to be due to uremia on last admission. Possibility remains this is due to hypertensive emergency which was discussed with her on last admission and recommended she stay but she refused ongoing admission and nifedipine was ultimately increased from 30->60mg. Will continue on hydralazine and nitro patch pending GI workup since her BP appears to be controlled on this. Most likely this is still gastric in origin. Started on Famotidine during last hospitalization due to presumption tightness was gastric given resolution with belching, worse with lying flat. Given renal function she was started on 10mg Q2D. (2) Hypertension: Plan: Refused to stay last hospitalization for optimization for this. Nifedipine increased last admission from 30 -> 60mg Better controlled now on hydralazine 25mg TID and nitroglycerin 2% paste 2 inches - > will switch to ISMN on discharge. (3) Chronic heart failure with preserved ejection fraction (HFpEF): Plan: Patient is on medications as noted above Does not appear to be in acute CHF at this time. I did review her resting echo from 05/27, has hyperdynamic left ventricle with L VEF of 70%, mild to moderate mitral regurg (4) CKD (chronic kidney disease): Plan: Creatinine is at 3.6, this appears to be her baseline but there does appear to be a slow worsening over time. Patient follows with Dr. Sandoval. (5) Uncontrolled diabetes mellitus, with long-term current use of insulin: Plan: Patient is on Lantus which we will continue Diabetic diet Sliding scale for mealtime insulin Consult pharmacy for glycemic control. (6) Pericardial effusion: Plan: Repeat limited TTE to assess size of this. Given intermittent nature of chest tightness I suspect pericarditis is unlikely the cause. Admission and Anticipated Discharge Date Admission Date: May 29, 2021 Subjective Now chest pain free. Back to her baseline. Chest pain similar to prior episode that she had during her last admission but much more severe on this occasion. No shortness of breath or palpitations. Worse lying flat. Relived with belching Small pleural effusion on Echo last admission but not felt to be contributory given patient symptoms. Suspect much more likely related to her hypertension vs. gastric. Reports having an MS at [facility] 2 years ago and had one stent placed. She did increase her nifedipine as ordered during last admission Blood pressure now better controlled on topical nitro and hydralazine. Review of Systems Review of Systems: All systems reviewed & are unremarkable except as noted in HPI & below Physical Exam Constitutional: WD/WN, vitals as above + obese Eyes: + anicteric sclerae; normal pupil size ENMT: external ear and nose normal, oropharynx normal Neck: trachea midline, no thyromegaly Respiratory: normal respiratory effort, lungs clear to auscultation Cardiovascular: RRR, no murmur, no edema Gastrointestinal (Abdomen): normal bowel sounds, soft, nontender, no hepatosplenomegaly Musculoskeletal: no cyanosis or clubbing, extremities motor strength 5/5 Skin: no rashes, warm and dry Neurologic: moves all extremities and awake; not confused Psychiatric: A+Ox3, euthymic affect Results & Data Results & Data ([facility]) Vital Signs (Past 12 Hours) Vital Signs Temp Pulse Pulse Resp BP BP Pulse Ox 05/30/21 11:22 36.6 C 60 18 148/81 H 97 05/30/21 10:03 128/69 189/76 H 05/30/21 08:00 67 05/30/21 06:59 36.8 C 64 18 170/79 H 97 05/30/21 04:13 36.5 C 63 18 147/82 H 97 PG Care Time/CCT Total # of Minutes Spent Total Time Spent with Patient: Total time spent is greater than 50% in coordination of care (as documented) at patient's floor/unit and/or counseling patient: Coding Level of Care Code 03304 Subseq Hosp Care Lvl 3 Diagnoses Chest pain R07.9 Chest pain type: unspecified Hypertension I10 Hypertension type: essential hypertension Chronic heart failure with preserved ejection fraction (HFpEF) I50.32 CKD (chronic kidney disease) N18.9 Chronic kidney disease stage: unspecified stage Uncontrolled diabetes mellitus, with long-term current use of insulin E11.65; Z79.4 Pericardial effusion I31.3 (1) CKD (chronic kidney disease) Chronic kidney disease stage: unspecified stage Qualified Code(s): N18.9 - Chronic kidney disease, unspecified (2) Chest pain Chest pain type: unspecified Qualified Code(s): R07.9 - Chest pain, unspec ified (3) Hypertension Hypertension type: essential hypertension Qualified Code(s): I10 - Essential (primary) hypertension
[2021-05-30] MEDS: INSULIN HUMAN LISPRO (humaLOG) 100 UNITS/ML VIAL SC SCH ×3 (14:09→21:00)
--- NOTE | 2021-05-30 15:02 | XCELERA ---
[id number] \\[id number]
--- NOTE | 2021-05-30 20:57 | Cardiology Consultation ---
Date of Consultation May 30, 2021 Assessment & Plan (1) Chest pain: (2) Pericardial effusion: (3) Hypertensive urgency: (4) Elevated troponin: (5) CAD (coronary artery disease): (6) Chronic heart failure with preserved ejection fraction (HFpEF): (7) H/O heart artery stent: ASSESSMENT/PLAN: 1. Chest pain: No actual pain but more of a sensation in her chest that is resolved with belching. She has had increased abdominal bloating, belching, and flatulence. Symptoms have improved with medications aimed at GI etiology. Symptoms are not consistent with angina. No ischemic evaluation necessary at this time. 2. Elevated troponin: Slight troponin elevation likely due to hypertensive urgency in the setting of severe concentric LVH and CKD. No anginal symptoms. No further evaluation necessary in this regard. 3. Hypertensive urgency: Blood pressure has improved with addition of hydralazine and nitrate therapy. Continue current regimen for now she is tolerating it well with acceptable blood pressure readings. Recommend reasonable blood pressure control for upcoming elective EGD. 4. CAD s/p PCI (RCA and Cx): No angina. Continue aspirin 81 mg daily indefinitely. Can hold Plavix if necessary for EGD but will leave to the discretion of GI. Continue beta-fartun. She had been on high-intensity statin therapy in the past and would recommend resuming. 5. CKD: Follows with Nephrology. 6. Renal artery stenosis s/p stent: Follows with Nephrology. 7. Pericardial effusion: Limited echo was ordered by hospitalist service. No hemodynamically significant effusion was noted. 8. Chronic heart failure with preserved EF: She does not appear to be significantly hypervolemic. Continue oral diuretic. Low-sodium diet. Follows in Heart failure program. 9. Disposition: Please call with any other questions or concerns. Patient care communicated with Dr. Quezada of the primary hospitalist service. Thank you for allowing me to participate in the care of your patient. Please call for any other questions or concerns. Sincerely, Julian Del Cid M.D. History of Present Illness Reason for Consultation: Chest pain/hypertension Requesting Physician: Dr. Espinosa Attending Physician: Placido Quezada MD History of Present Illness Mrs. Mcnulty is a 71-year-old female with a history significant for CAD s/p PCI of circumflex (09/20/2010, 3 x 23 mm Xience) and RCA (10/12/2019 Promus 2.5 x 24 mm), renal artery stenosis s/p left renal artery stent (09/05/2014), hypertension, LVH, type 2 diabetes, dyslipidemia, CKD (Dr. Sandoval). Her primary watch guard gate is Dr. Nikos herr and Dr. Perez at [facility]. She has had the following studies / procedures: 1. Cardiac catheterization 09/20/2010 [facility]: Circumflex stent. 2. Cardiac catheterization August 2014 [facility]: Patent circumflex stent. 3. Renal angiography August 2014 [facility]: Severe left renal artery stenosis s/p stent. 4. Cardiac catheterization 10/12/2019 [facility]: mid RCA PCI 2.5 x 24 mm Promus DAVID. 5. Echo 11/07/2019 [facility]: Normal LV size and systolic function. EF 65-70%. Severe concentric LVH. Mild aortic stenosis. Mild MR. RVSP 26. 6. Echo 05/27/2021: Hyperdynamic LV systolic function. EF > 70%. Severe concentric LVH. MAC. Mild MR. Small pericardial effusion. She was recently hospitalized and discharged on 05/27/2021. She had been experiencing bloating, belching, nausea, and a crowding sensation near her heart. She states that her symptoms improved significantly with dicyclomine but she ran out of the medication before her pharmacy could fill her prescription. She re-presented and was admitted on 05/29/2021. Her symptoms remained similar with slight nausea, belching, and a crowding sensation near her heart that improves with belching. Her symptoms overall have been intermittently occurring for the past 1 week. She also has noted increased flatulence, abdominal bloating and distention. The symptoms are nothing like her prior angina per her report. She also has been having issues with hypertension and nifedipine was increased during her last hospital stay. She was once again significantly hypertensive during this hospital stay with systolic pressures charted in the 190s. Her systolic pressure was as high as 240 during April hospitalization. She states at home prior to her GI symptoms, she noted systolic blood pressure on average ranging 120-140. She has been seen by GI today with planned EGD tomorrow if no significant cardiac issues occurring. She has had decreased edema recently after increasing her diuretics. She denies shortness of breath, angina, syncope, near-syncope, or bleeding. Review of systems: As above. Review of systems otherwise negative/unremarkable. Family history: Father had CAD. Social history: She denies tobacco or alcohol abuse. She is a . She has 2 sons. Her son and his family live with her, including her grandson Bo. She was unaccompanied in her hospital room. Allergies Allergy/AdvReac Type Severity Reaction Status Date / Time heparin Allergy Hives Verified 05/29/21 23:23 insulin aspart Allergy Hives Verified 05/29/21 16:41 [From Novolog U-100 Insulin aspart] meperidine AdvReac Intermediate hallucinate Verified 05/29/21 16:41 s lisinopril AdvReac Mild COUGHING Verified 05/29/21 16:41 Home Medications Medication Instructions Recorded Confirmed Type aspirin 81 mg tablet,delayed 81 mg PO QAM 03/26/21 05/29/21 History release clopidogrel 75 mg tablet (Plavix) 75 mg PO QAM 03/26/21 05/29/21 History furosemide 20 mg tablet 40 mg PO QAM 03/26/21 05/29/21 History spironolactone 25 mg tablet 25 mg PO QAM 03/26/21 05/29/21 History blood sugar diagnostic (OneTouch #400 ea 04/21/21 Rx Ultra Blue Test Strip) lancets (OneTouch UltraSoft #400 ea 04/21/21 Rx Lancets) pen needle, diabetic 32 gauge x #400 ea 04/21/21 Rx 1/4" (Novofine 32) calcitriol 0.25 mcg capsule 0.25 mcg PO 3XWK 05/26/21 05/29/21 History carvedilol 12.5 mg tablet 12.5 - 25 mg PO AMPM 05/26/21 05/29/21 History insulin glargine 100 unit/mL (3 20 unit SUBCUT QAM 05/26/21 05/29/21 History mL) subcutaneous pen (Lantus Solostar U-100 Insulin) insulin lispro 100 unit/mL 0 unit SUBCUT BIDM MDD 75 units 05/26/21 05/29/21 History subcutaneous pen (Humalog KwikPen (U-100) Insulin) [id number] oil-vit D3 300 1 cap PO QAM 05/26/21 05/29/21 History mg-1,000 mg-1,000 unit capsule (Fish Oil-Vit D3) dicyclomine 10 mg capsule 10 mg PO TID PRN #12 cap 05/27/21 05/29/21 Rx famotidine 10 mg tablet 10 mg PO Q2D #14 tab 05/27/21 05/29/21 Rx nifedipine 60 mg tablet,extended 60 mg PO DAILY #30 tab 05/27/21 05/29/21 Rx release 24 hr Patient History Medical History CAD (coronary artery disease) Chronic heart failure with preserved ejection fraction (HFpEF) CKD (chronic kidney disease) Diverticulosis Elevated troponin History of stent insertion of renal artery 2014 Hyperlipidemia Hypertension Hypertensive emergency LVH (left ventricular hypertrophy) Lymphedema Renal artery stenosis Status post myocardial infarction Vulvovaginal candidiasis Surgical History H/O heart artery stent Family History Other Hypertension Social History Smoking Status: Never smoker Second Hand Exposure: No; Hx Alcohol Use: No Hx Substance Use: No Preferred Language: Fijian Communication Ability: Effective Shipping And Receiving Associate Required: No Beliefs That Will Affect Care: Restorationist Restorationist Beliefs: [employer] marital status: Single Current Living Situation: Family Current Living Situation Comment: lives with grandson How many Children do You have: 2 Feels Safe at Home: Yes Assistive Devices: Glasses Physical Exam Physical Exam: Gen.: No acute distress. Alert and oriented. HEENT: Anicteric sclera. Neck: Thick neck. No bruits. Normal carotid upstrokes bilaterally. Cardiac: PMI was nonpalpable. No ventricular heave. Regular rate and rhythm. Normal S1-S2. 2/6 systolic murmur. No rubs, or gallops. Pulmonary: Clear to auscultation bilaterally without wheezes, rales, or rhonchi. Abdomen: Soft, nontender, nondistended, with hyperactive bowel sounds. No bruits noted. Extremities: 2+ radial pulses bilaterally. 2+ posterior tibialis pulses bilaterally. Trace bilateral lower extremity edema. No cyanosis. Psychiatric: Affect appears appropriate. Results & Data ([facility]) Vital Signs (Past 12 Hours) Vital Signs Temp Pulse Pulse Resp BP BP Pulse Ox 05/30/21 18:37 36.7 C 61 18 133/77 99 05/30/21 16:00 62 05/30/21 15:13 36.8 C 62 18 139/80 98 05/30/21 11:22 36.6 C 60 18 148/81 H 97 05/30/21 10:03 128/69 189/76 H Laboratory Results Laboratory Results - last 24 hr 05/29/21 05/29/21 05/30/21 21:01 21:46 03:01 WBC 11.71 H RBC 4.33 Hgb 12.4 Hct 37.6 MCV 86.8 MCH 28.6 MCHC 33.0 RDW Std Deviation 46.7 H RDW Coeff of Ekaterina 14.6 H Plt Count 238 MPV 11.1 H Immature Gran % (Auto) 0.8 Neut % (Auto) 72.6 Lymph % (Auto) 18.2 Douglas % (Auto) 6.1 Eos % (Auto) 2.0 Baso % (Auto) 0.3 Neut # (Auto) 8.51 H Lymph # (Auto) 2.13 Douglas # (Auto) 0.72 H Eos # (Auto) 0.23 Baso # (Auto) 0.03 Immature Gran # (Auto) 0.09 H Sodium Potassium Chloride Carbon Dioxide Anion Gap BUN Creatinine Est Cr Clr Drug Dosing Est GFR ( Amer) Est GFR (Non-Af Amer) BUN/Creatinine Ratio Glucose POC Glucose 112 H Calcium Magnesium Troponin I 0.022 05/30/21 05/30/21 05/30/21 03:01 07:12 09:23 WBC RBC Hgb Hct MCV MCH MCHC RDW Std Deviation RDW Coeff of Ekaterina Plt Count MPV Immature Gran % (Auto) Neut % (Auto) Lymph % (Auto) Douglas % (Auto) Eos % (Auto) Baso % (Auto) Neut # (Auto) Lymph # (Auto) Douglas # (Auto) Eos # (Auto) Baso # (Auto) Immature Gran # (Auto) Sodium 139 Potassium 3.9 Chloride 110 H Carbon Dioxide 22 Anion Gap 8.0 BUN 88 H Creatinine 3.40 H Est Cr Clr Drug Dosing 16.8 Est GFR ( Amer) 14.9 Est GFR (Non-Af Amer) 12.9 BUN/Creatinine Ratio 26.0 H Glucose 144 H POC Glucose 226 H Calcium 8.6 Magnesium 2.2 Troponin I 0.098 H* 0.060 H* 05/30/21 05/30/21 05/30/21 11:21 16:16 20:44 WBC RBC Hgb Hct MCV MCH MCHC RDW Std Deviation RDW Coeff of Ekaterina Plt Count MPV Immature Gran % (Auto) Neut % (Auto) Lymph % (Auto) Douglas % (Auto) Eos % (Auto) Baso % (Auto) Neut # (Auto) Lymph # (Auto) Douglas # (Auto) Eos # (Auto) Baso # (Auto) Immature Gran # (Auto) Sodium Potassium Chloride Carbon Dioxide Anion Gap BUN Creatinine Est Cr Clr Drug Dosing Est GFR ( Amer) Est GFR (Non-Af Amer) BUN/Creatinine Ratio Glucose POC Glucose 177 H 140 H 80 Calcium Magnesium Troponin I Diagnostic Findings Telemetry personally reviewed: Sinus rhythm. No arrhythmia. Echo 05/30/2021: Limited echo. EF 65-70%. Severe concentric LVH. Trace pericardial effusion. ECG personally reviewed 05/30/2021 at 6:33 a.m.: Sinus rhythm 70 beats per minute. LVH with repolarization abnormality. Prolonged QT. Medications Administered Current Inpatient Medications Acetaminophen (Acetaminophen 325 Mg Tab) 650 mg PO Q4H PRN PRN Reason: Pain or Fever Stop: 06/28/21 21:25 Last Admin: 05/30/21 14:58 Dose: 650 mg Documented by: Aspirin (Aspirin 81 Mg Ectab) 81 mg PO [facility] Stop: 06/29/21 08:59 Last Admin: 05/30/21 07:59 Dose: 81 mg Documented by: Calcitriol (Calcitriol 0.25 Mcg Capsule) 0.25 mcg PO MoWeFr@0900 [facility] Stop: 06/30/21 08:59 Clopidogrel Bisulfate (Clopidogrel Bisulfate 75 Mg Tab) 75 mg PO [facility] Stop: 06/29/21 08:59 Last Admin: 05/30/21 07:58 Dose: 75 mg Documented by: Dextrose (Dextrose 50% 50 Ml Syringe) 25 - 50 ml IV UD PRN; Protocol PRN Reason: Hypoglycemia Protocol Stop: 06/28/21 21:25 Dicyclomine HCl (Dicyclomine Hcl 10 Mg Cap) 10 mg PO TID PRN PRN Reason: Abdominal Discomfort Stop: 06/28/21 21:25 Last Admin: 05/30/21 20:55 Dose: 10 mg Documented by: Famotidine (Famotidine 10 Mg Tablet) 10 mg PO Q2D [facility] Stop: 06/29/21 08:59 Last Admin: 05/30/21 08:00 Dose: 10 mg Documented by: Fish Oil ([place]-3 (Purified Fish Oil) 1 Gm Cap) 1 gm PO QAM [facility] Stop: 06/29/21 08:59 Last Admin: 05/30/21 08:00 Dose: 1 gm Documented by: Furosemide (Furosemide 40 Mg Tab) 40 mg PO QAM [facility] Stop: 06/29/21 08:59 Last Admin: 05/30/21 07:59 Dose: 40 mg Documented by: Glucagon (Glucagon For Inj 1 Mg Vial) 1 mg SQ UD PRN; Protocol PRN Reason: Hypoglycemia Protocol Stop: 06/28/21 21:25 Glucose (Glucose 10 Tabs/Tube) 4 - 8 tabs PO UD PRN; Protocol PRN Reason: Hypoglycemia Protocol Stop: 06/28/21 21:25 Glucose (Glucose 40% Gel 15 Gm Tube) 15 - 30 gm PO UD PRN; Protocol PRN Reason: Hypoglycemia Protocol Stop: 06/28/21 21:25 Heparin Sodium (Porcine) (Heparin Sod 5,000 Unit/0.5 Ml Vial) 5,000 units SQ Q8 [facility]ONNE Stop: 06/28/21 21:59 Last Admin: 05/29/21 22:33 Dose: Not Given Documented by: Hydralazine HCl (Hydralazine Hcl 25 Mg Tab) 25 mg PO TID [facility] Stop: 06/28/21 21:59 Last Admin: 05/30/21 20:53 Dose: 25 mg Documented by: Hydralazine HCl (Hydralazine Hcl 25 Mg Tab) 25 mg PO Q4H PRN PRN Reason: Hypertension Stop: 06/28/21 23:16 Insulin Glargine (Insulin Glargine Solostar 100 Units/Ml 3 Ml Pen) 20 units SQ QAM [facility] Stop: 06/29/21 08:59 Last Admin: 05/30/21 08:45 Dose: 20 units Documented by: Insulin Human Lispro (Insulin Human Lispro (Humalog) 100 Units/Ml Vial) 0 units SC ACHS [facility] Stop: 06/29/21 13:29 Last Admin: 05/30/21 21:00 Dose: Not Given Documented by: Insulin Human Lispro (Insulin Human Lispro (Humalog) 100 Units/Ml Vial) 0 units SC TODAY@0000,0400 [facility] Stop: 05/31/21 04:01 Miscellaneous (Carbohydrates For Hypoglycemia ) 15 - 30 gm PO UD PRN PRN Reason: Hypoglycemia Protocol Stop: 06/28/21 21:25 Miscellaneous Information (Pharmacy Glycemic Mgmt Consult) 0 ea N/A UD PRN PRN Reason: Consult Stop: 06/29/21 13:14 Nifedipine (Nifedipine Extended Rel 30 Mg Tabcr) 60 mg PO DAILY [facility]VONNE Stop: 06/29/21 08:59 Last Admin: 05/30/21 07:59 Dose: 60 mg Documented by: Nitroglycerin (Nitroglycerin 2% Ointment 30gm Tube) 2 inch EXT Q6 YVONNE Stop: 06/29/21 04:29 Last Admin: 05/30/21 18:20 Dose: 2 inch Documented by: Spironolactone (Spironolactone 25 Mg Tab) 25 mg PO QAM [facility]VONNE Stop: 06/29/21 08:59 Last Admin: 05/30/21 07:59 Dose: 25 mg Documented by: PG Care Time/CCT Total # of Minutes Spent Total Time Spent with Patient: Total time spent is greater than 50% in coordination of care (as documented) at patient's floor/unit and/or counseling patient: Coding Level of Care Code 72504 Initial Inpt Care Lvl 3 Diagnoses Chest pain R07.2 Chest pain type: precordial pain Pericardial effusion I31.3 Hypertensive urgency I16.0 Elevated troponin R77.8 CAD (coronary artery disease) I25.10 Coronary Disease-Associated Artery/Lesion type: [place] artery [place] vs. transplanted heart: [place] heart Associated angina: without angina Chronic heart failure with preserved ejection fraction (HFpEF) I50.32 H/O heart artery stent Z95.5 (1) Chest pain Chest pain type: precordial pain Qualified Code(s): R07.2 - Precordial pain (2) CAD (coronary artery disease) Coronary Disease-Associated Artery/Lesion type: [place] artery [place] vs. transplanted heart: [place] heart Associated angina: without angina Qualified Code(s): I25.10 - Atherosclerotic heart disease of [place] coronary artery without angina pectoris
[2021-05-30] MEDS: INSULIN GLARGINE SOLOSTAR 100 UNITS/ML 3 ML PEN SQ SCH (20:59)
[2021-05-31] MEDS: INSULIN HUMAN LISPRO (humaLOG) 100 UNITS/ML VIAL SC SCH ×6 (00:01→21:33)
[2021-05-31] MEDS: NITROGLYCERIN 2% OINTMENT 30GM TUBE EXT SCH ×4 (00:04→17:15)
[2021-05-31] MEDS ORDERED: INSULIN GLARGINE SOLOSTAR 100 UNITS/ML 3 ML PEN SQ ONE (08:15)
[2021-05-31] MEDS: DICYCLOMINE HCL 10 MG CAP PO PRN (08:43)
[2021-05-31] MEDS: hydrALAZINE HCL 25 MG TAB PO SCH ×3 (08:43→21:32)
[2021-05-31] MEDS: NIFEdipine EXTENDED REL 30 MG TABCR PO SCH (08:44)
[2021-05-31] MEDS: CALCITRIOL 0.25 MCG CAPSULE PO SCH (08:44)
[2021-05-31] MEDS: OMEGA-3 (PURIFIED FISH OIL) 1 GM CAP PO SCH (08:44)
[2021-05-31] MEDS: FUROSEMIDE 40 MG TAB PO SCH (08:44)
[2021-05-31] MEDS: ASPIRIN 81 MG ECTAB PO SCH (08:44)
[2021-05-31] MEDS: SPIRONOLACTONE 25 MG TAB PO SCH (08:44)
--- NOTE | 2021-05-31 08:45 | Communication Note ---
Date of Service: May 31, 2021 No GI concerns vocalized. Pt is NPO for EGD this today. All questions regarding procedure answered. Please see EGD report once completed for further recomm endations.
[2021-05-31] MEDS ORDERED: LORazepam 1 MG TAB PO PRN (09:04)
--- NOTE | 2021-05-31 09:13 | Cardiology Progress Note ---
Date of Service May 31, 2021 Assessment & Plan (1) Flatulence, eructation, and gas pain: (2) Elevated troponin: (3) Hypertensive urgency: (4) CAD (coronary artery disease): (5) Pericardial effusion: Plan: ASSESSMENT/PLAN: 1. Chest pain: No actual pain but more of a "crowding" sensation in her chest that resolves with belching. She has had increased abdominal bloating, belching, and flatulence. Symptoms have resolved with current GI medications. Symptoms are not consistent with angina. No ischemic evaluation necessary at this time. EGD is planned for today. 2. Elevated troponin: Slight troponin elevation likely due to hypertensive urgency in the setting of severe concentric LVH and CKD. No anginal symptoms. No further evaluation necessary in this regard. 3. Hypertensive urgency: Blood pressure improved yesterday with the addition of Hydralazine and Nitrate therapy. Patient's BP was in the 130's systolically yesterday. BP was elevated this morning but she just received her medications about 15 minutes ago. Repeat systolic BP was 159 mmHg. Continue current regimen for now she is tolerating it. Continue to monitor blood pressure closely. Recommend reasonable blood pressure control for upcoming elective EGD. 4. CAD s/p PCI (RCA and Cx): No angina. Continue Aspirin 81 mg daily indefinitely. Can hold Plavix if necessary for EGD but will leave to the discretion of GI. Continue beta-fartun. She had been on high-intensity statin therapy in the past and would recommend resuming. 5. CKD: Follows with Nephrology. 6. Renal artery stenosis s/p stent: Follows with Nephrology. 7. Pericardial effusion: Limited echo was ordered by hospitalist service. No hemodynamically significant effusion was noted. 8. Chronic heart failure with preserved EF: She is not having any symptoms suggestive of heart failure. She appears euvolemic. Continue oral diuretic. Low-sodium diet. Follows in [facility] Heart Failure program. Admission and Anticipated Discharge Date Admission Date: May 29, 2021 Subjective Mrs. Mcnulty is feeling much better. The medicines are helping -- she is not having any gas buildup, chest discomfort, or the need to belch. She is anxious to have her endoscopy done and she is also anxious about the procedure. Patient's BP was in the 130's systolically yesterday. BP was elevated this morning but she just received her medications at approximately 8:45 a.m.. Repeat systolic BP was 159 mmHg. Physical Exam Physical Exam: GENERAL: Patient in no acute distress. HEENT: Head is atraumatic, normocephalic. EOM's intact. Facies symmetric. No perioral cyanosis. NECK: No JVD. JVP is at the level of the clavicle sitting upright. Carotid upstrokes are + 2 bilaterally. No bruits are noted. CHEST/LUNGS: Clear to auscultation throughout all lung chaudhry. No wheezes, ral es, or crackles. CVS: S1 and S2 are regular with a grade 2/6 basal systolic murmur. No diastolic murmurs. No gallops or rubs. PMI is nonpalpable. No lifts, heaves, or thrills. No abdominal aortic or renal bruits. ABDOMINAL EXAM: Bowel sounds are present. No masses, organomegaly, or tenderness. EXTREMITIES: No clubbing or cyanosis. No edema. Intact radial pulses bilaterally. NEUROLOGIC EXAM: Patient is awake, alert, and oriented. Pleasant and cooperative. Answers questions appropriately. Speech is clear. TELEMETRY: -- Normal sinus rhythm at normal rates. Results & Data ([facility]) Vital Signs (Past 12 Hours) Vital Signs Temp Pulse Pulse Resp BP Pulse Ox 05/31/21 08:11 36.7 C 68 18 183/83 H 99 05/31/21 04:32 36.7 C 62 20 159/82 H 96 05/30/21 23:46 67 05/30/21 23:15 36.7 C 72 18 139/77 95 Laboratory Results Laboratory Results - last 24 hr 05/30/21 05/30/21 05/30/21 09:23 11:21 16:16 POC Glucose 177 H 140 H Troponin I 0.060 H* 05/30/21 05/30/21 05/31/21 20:44 23:52 03:51 POC Glucose 80 155 H 104 H Troponin I 05/31/21 08:01 POC Glucose 121 H Troponin I Medications Administered Medications aspirin 81 mg tablet,delayed release 81 mg PO QA 03/26/21 [History Confirmed 05/29/21] clopidogrel 75 mg tablet (Plavix) 75 mg PO QA 03/26/21 [History Confirmed 05/29/21] furosemide 20 mg tablet 40 mg PO QA 03/26/21 [History Confirmed 05/29/21] spironolactone 25 mg tablet 25 mg PO QAM 03/26/21 [History Confirmed 05/29/21] blood sugar diagnostic (OneTouch Ultra Blue Test Strip) #400 ea 04/21/21 [Rx] lancets (OneTouch UltraSoft Lancets) #400 ea 04/21/21 [Rx] pen needle, diabetic 32 gauge x 1/4" (Novofine 32) #400 ea 04/21/21 [Rx] calcitriol 0.25 mcg capsule 0.25 mcg PO 3XWK 05/26/21 [History Confirmed 05/29/21] carvedilol 12.5 mg tablet 12.5 - 25 mg PO AMPM 05/26/21 [History Confirmed 05/29/21] insulin glargine 100 unit/mL (3 mL) subcutaneous pen (Lantus Solostar U-100 Insulin) 20 unit SUBCUT QAM 05/26/21 [History Confirmed 05/29/21] insulin lispro 100 unit/mL subcutaneous pen (Humalog KwikPen (U-100) Insulin) 0 unit SUBCUT BIDM MDD 75 units 05/26/21 [History Confirmed 05/29/21] cs-8-hjk-epa-fish oil-vit D3 300 mg-1,000 mg-1,000 unit capsule (Fish Oil-Vit D3) 1 cap PO QAM 05/26/21 [History Confirmed 05/29/21] dicyclomine 10 mg capsule 10 mg PO TID PRN #12 cap 05/27/21 [Rx Confirmed 05/29/21] famotidine 10 mg tablet 10 mg PO Q2D #14 tab 05/27/21 [Rx Confirmed 05/29/21] nifedipine 60 mg tablet,extended release 24 hr 60 mg PO DAILY #30 tab 05/27/21 [Rx Confirmed 05/29/21] Home Medications Acetaminophen (Acetaminophen 325 Mg Tab) 650 mg PO Q4H PRN PRN Reason: Pain or Fever Stop: 06/28/21 21:25 Last Admin: 05/30/21 21:49 Dose: 650 mg Documented by: Aspirin (Aspirin 81 Mg Ectab) [facility] Stop: 06/29/21 08:59 Last Admin: 05/31/21 08:44 Dose: 81 mg Documented by: Calcitriol (Calcitriol 0.25 Mcg Capsule) 0.25 mcg PO [id number]@0900 [facility] Stop: 06/30/21 08:59 Last Admin: 05/31/21 08:44 Dose: 0.25 mcg Documented by: Clopidogrel Bisulfate (Clopidogrel Bisulfate 75 Mg Tab) 75 mg PO QAM [facility] Stop: 06/29/21 08:59 Last Admin: 05/30/21 07:58 Dose: 75 mg Documented by: Dextrose (Dextrose 50% 50 Ml Syringe) 25 - 50 ml IV UD PRN; Protocol PRN Reason: Hypoglycemia Protocol Stop: 06/28/21 21:25 Dicyclomine HCl (Dicyclomine Hcl 10 Mg Cap) 10 mg PO TID PRN PRN Reason: Abdominal Discomfort Stop: 06/28/21 21:25 Last Admin: 05/31/21 08:43 Dose: 10 mg Documented by: Famotidine (Famotidine 10 Mg Tablet) 10 mg PO Q2D [facility] Stop: 06/29/21 08:59 Last Admin: 05/30/21 08:00 Dose: 10 mg Documented by: Fish Oil ([place]-3 (Purified Fish Oil) 1 Gm Cap) 1 gm PO QAM [facility] Stop: 06/29/21 08:59 Last Admin: 05/31/21 08:44 Dose: 1 gm Documented by: Furosemide (Furosemide 40 Mg Tab) 40 mg PO QAM [facility] Stop: 06/29/21 08:59 Last Admin: 05/31/21 08:44 Dose: 40 mg Documented by: Glucagon (Glucagon For Inj 1 Mg Vial) 1 mg SQ UD PRN; Protocol PRN Reason: Hypoglycemia Protocol Stop: 06/28/21 21:25 Glucose (Glucose 10 Tabs/Tube) 4 - 8 tabs PO UD PRN; Protocol PRN Reason: Hypoglycemia Protocol Stop: 06/28/21 21:25 Glucose (Glucose 40% Gel 15 Gm Tube) 15 - 30 gm PO UD PRN; Protocol PRN Reason: Hypoglycemia Protocol Stop: 06/28/21 21:25 Heparin Sodium (Porcine) (Heparin Sod 5,000 Unit/0.5 Ml Vial) 5,000 units SQ Q8 [facility] Stop: 06/28/21 21:59 Last Admin: 05/29/21 22:33 Dose: Not Given Documented by: Hydralazine HCl (Hydralazine Hcl 25 Mg Tab) 25 mg PO TID YVONNE Stop: 06/28/21 21:59 Last Admin: 05/31/21 08:43 Dose: 25 mg Documented by: Hydralazine HCl (Hydralazine Hcl 25 Mg Tab) 25 mg PO Q4H PRN PRN Reason: Hypertension Stop: 06/28/21 23:16 Insulin Human Lispro (Insulin Human Lispro (Humalog) 100 Units/Ml Vial) 0 units SC ACHS YVONNE Stop: 06/29/21 13:29 Last Admin: 05/30/21 21:00 Dose: Not Given Documented by: Lorazepam (Lorazepam 1 Mg Tab) 1 mg PO Q8H PRN PRN Reason: Anxiety Stop: 06/30/21 09:03 Miscellaneous (Carbohydrates For Hypoglycemia ) 15 - 30 gm PO UD PRN PRN Reason: Hypoglycemia Protocol Stop: 06/28/21 21:25 Miscellaneous Information (Pharmacy Glycemic Mgmt Consult) 0 ea N/A UD PRN PRN Reason: Consult Stop: 06/29/21 13:14 Nifedipine (Nifedipine Extended Rel 30 Mg Tabcr) 60 mg PO DAILY YVONNE Stop: 06/29/21 08:59 Last Admin: 05/31/21 08:44 Dose: 60 mg Documented by: Nitroglycerin (Nitroglycerin 2% Ointment 30gm Tube) 2 inch EXT Q6 YVONNE Stop: 06/29/21 04:29 Last Admin: 05/31/21 05:17 Dose: 2 inch Documented by: Spironolactone (Spironolactone 25 Mg Tab) 25 mg PO QAM YVONNE Stop: 06/29/21 08:59 Last Admin: 05/31/21 08:44 Dose: 25 mg Documented by: PG Care Time/CCT Total # of Minutes Spent Total Time Spent with Patient: Total time spent is greater than 50% in coordination of care (as documented) at patient's floor/unit and/or counseling patient: Coding Level of Care Code 58771 Subseq Hosp Care Lvl 3 Diagnoses Flatulence, eructation, and gas pain R14.3; R14.1; R14.2 Elevated troponin R77.8 Hypertensive urgency I16.0 CAD (coronary artery disease) I25.10 Associated angina: without angina Coronary Disease-Associated Artery/Lesion type: [place] artery [place] vs. transplanted heart: [place] heart Pericardial effusion I31.3 (1) CAD (coronary artery disease) Associated angina: without angina Coronary Disease-Associated Artery/Lesion type: [place] artery [place] vs. transplanted heart: [place] heart Qualified Code(s): I25.10 - Atherosclerotic heart disease of [place] coronary artery without angina pectoris
--- NOTE | 2021-05-31 10:52 | Anesthesiology Consultation ---
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 initiated Consults Requested none History Surgery Operation Date: 05/31/21 16:15 Proposed Procedures p Esophagogastroduodenoscopy Dr Franco - Elise Franco, DO Height/Weight Height: 5 ft 3 in Weight: 97.3 kg Allergies Allergy/AdvReac Type Severity Reaction Status Date / Time heparin Allergy Hives Verified 05/29/21 23:23 insulin aspart Allergy Hives Verified 05/29/21 16:41 [From Novolog U-100 Insulin aspart] meperidine AdvReac Intermediate hallucinate Verified 05/29/21 16:41 s lisinopril AdvReac Mild COUGHING Verified 05/29/21 16:41 Medications Home Medications Medication Instructions Recorded Confirmed Last Taken aspirin 81 mg tablet,delayed 81 mg PO QAM 03/26/21 05/29/21 05/29/21 release clopidogrel 75 mg tablet (Plavix) 75 mg PO QAM 03/26/21 05/29/21 05/29/21 furosemide 20 mg tablet 40 mg PO QAM 03/26/21 05/29/21 05/29/21 spironolactone 25 mg tablet 25 mg PO QAM 03/26/21 05/29/21 05/29/21 blood sugar diagnostic (OneTouch #400 ea 04/21/21 Unknown Ultra Blue Test Strip) lancets (OneTouch UltraSoft #400 ea 04/21/21 Unknown Lancets) pen needle, diabetic 32 gauge x #400 ea 04/21/21 Unknown /" (Novofine 32) carvedilol 12.5 mg tablet 12.5 - 25 mg PO AMPM 05/26/21 05/29/21 05/29/21 08:00 insulin glargine 100 unit/mL (3 20 unit SUBCUT QAM 05/26/21 05/29/21 05/29/21 mL) subcutaneous pen (Lantus Solostar U-100 Insulin) insulin lispro 100 unit/mL 0 unit SUBCUT BIDM MDD 75 units 05/26/21 05/29/21 05/29/21 08:00 subcutaneous pen (Humalog KwikPen (U-100) Insulin) [id number]-epa-fish oil-vit D3 300 1 cap PO QAM 05/26/21 05/29/21 05/29/21 mg-1,000 mg-1,000 unit capsule (Fish Oil-Vit D3) dicyclomine 10 mg capsule 10 mg PO TID PRN #12 cap 05/27/21 05/29/21 05/29/21 08:00 famotidine 10 mg tablet 10 mg PO Q2D #14 tab 05/27/21 05/29/21 Unknown nifedipine 60 mg tablet,extended 60 mg PO DAILY #30 tab 05/27/21 05/29/21 05/29/21 release 24 hr calcitriol 0.25 mcg capsule 0.25 mcg PO 3XWK #30 cap 05/31/21 Unknown Active Medications Generic Name Dose Route Start Last Admin Trade Name Freq PRN Reason Stop Dose Admin Acetaminophen 650 mg 05/29/21 21:26 05/30/21 21:49 Acetaminophen 325 Mg Tab PO 06/28/21 21:25 650 mg Q4H PRN Administration Pain or Fever Aspirin 81 mg 05/30/21 09:00 05/31/21 08:44 Aspirin 81 Mg Ectab PO 06/29/21 08:59 81 mg QAM YVONNE Administration Calcitriol 0.25 mcg 05/31/21 09:00 05/31/21 08:44 Calcitriol 0.25 Mcg Capsule PO 06/30/21 08:59 0.25 mcg MoWeFr@0900 YVONNE Administration Clopidogrel Bisulfate 75 mg 05/30/21 09:00 05/30/21 07:58 Clopidogrel Bisulfate 75 Mg Tab PO 06/29/21 08:59 75 mg QAM YVONNE Administration Dicyclomine HCl 10 mg 05/29/21 21:26 05/31/21 08:43 Dicyclomine Hcl 10 Mg Cap PO 06/28/21 21:25 10 mg TID PRN Administration Abdominal Discomfort Famotidine 10 mg 05/30/21 09:00 05/30/21 08:00 Famotidine 10 Mg Tablet PO 06/29/21 08:59 10 mg Q2D YVONNE Administration Fish Oil 1 gm 05/30/21 09:00 05/31/21 08:44 [place]-3 (Purified Fish Oil) 1 Gm Cap PO 06/29/21 08:59 1 gm QAM YVONNE Administration Furosemide 40 mg 05/30/21 09:00 05/31/21 08:44 Furosemide 40 Mg Tab PO 06/29/21 08:59 40 mg QAM YVONNE Administration Heparin Sodium (Porcine) 5,000 units 05/29/21 22:00 05/29/21 22:33 Heparin Sod 5,000 Unit/0.5 Ml Vial SQ 06/28/21 21:59 Not Given Q8 YVONNE Hydralazine HCl 25 mg 05/29/21 22:00 05/31/21 08:43 Hydralazine Hcl 25 Mg Tab PO 06/28/21 21:59 25 mg TID YVONNE Administration Insulin Human Lispro 0 units 05/30/21 13:30 05/31/21 09:14 Insulin Human Lispro (Humalog) 100 Units/Ml Vial SC 06/29/21 13:29 Not Given ACHS YVONNE Nifedipine 60 mg 05/30/21 09:00 05/31/21 08:44 Nifedipine Extended Rel 30 Mg Tabcr PO 06/29/21 08:59 60 mg DAILY YVONNE Administration Nitroglycerin 2 inch 05/30/21 04:30 05/31/21 05:17 Nitroglycerin 2% Ointment 30gm Tube EXT 06/29/21 04:29 2 inch Q6 YVONNE Administration Spironolactone 25 mg 05/30/21 09:00 05/31/21 08:44 Spironolactone 25 Mg Tab PO 06/29/21 08:59 25 mg QAM YVONNE Administration NPO Date Last Intake of Fluids: 05/30/21 Time Last Intake of Fluids: 22:00 Last Intake of Fluids Comment: sip with meds this am Date Last Intake of Solids: 05/30/21 Time Last Intake of Solids: 17:00 Past Medical History Medical History CAD (coronary artery disease) Chronic heart failure with preserved ejection fraction (HFpEF) CKD (chronic kidney disease) Diverticulosis Elevated troponin History of stent insertion of renal artery 2014 Hyperlipidemia Hypertension Hypertensive emergency LVH (left ventricular hypertrophy) Lymphedema Renal artery stenosis Status post myocardial infarction Vulvovaginal candidiasis Past Family History Family History Other Hypertension Past Surgical History Surgical History H/O heart artery stent Social History Smoking Status: Never smoker Hx Alcohol Use: No Hx Substance Use: No Physical Exam Vital Signs Last Vital Signs Temp 36.7 C 05/31/21 08:11 Pulse 68 05/31/21 08:11 Resp 18 05/31/21 08:11 BP 183/83 H 05/31/21 08:11 Pulse Ox 99 05/31/21 08:11 Testing Laboratory Results 05/30/21 03:01 05/30/21 03:01 PT 10.0 Seconds (9.0-12.0) 05/29/21 15:30 INR 1.0 (0.9-1.1) 05/29/21 15:30 APTT 26.2 Seconds (21.0-31.0) 05/29/21 15:30 05/31/21 05/31/21 05/30/21 08:01 03:51 23:52 POC Glucose 121 H 104 H 155 H Electrocardiogram Date: 05/31/21 Normal sinus rhythm Left ventricular hypertrophy with repolarization abnormality Prolonged QT Abnormal ECG When compared with ECG of 30-MAY-2021 06:33, (unconf irmed) No significant change was found Chest X-Ray Date: 05/29/21 XR chest 1V portable HISTORY: 71 years-old Female Chest Pain acute atypical chest pain COMPARISON: 05/26/2021 TECHNIQUE: AP view of the chest FINDINGS: Cardiac silhouette is enlarged. Calcific plaque of the thoracic aorta. No pneumothorax, pleural effusion, airspace consolidation or overt pulmonary edema. Bones of the chest appear grossly intact. IMPRESSION: Cardiomegaly without acute process. Echocardiogram Date: 05/30/21 EF: 65-70 LV Function: normal RWMA: + none
--- NOTE | 2021-05-31 11:03 | History & Physical Report ---
Date of Service May 31, 2021 Assessment & Plan (1) Chest pain: Plan: EGD today Cleared by cardiology Admission and Anticipated Discharge Date Admission Date: May 29, 2021 History of Present Illness Chief Complaint: chest pain Primary Care Provider: Shay Hammond chest pain Allergies Allergy/AdvReac Type Severity Reaction Status Date / Time heparin Allergy Hives Verified 05/29/21 23:23 insulin aspart Allergy Hives Verified 05/29/21 16:41 [From Novolog U-100 Insulin aspart] meperidine AdvReac Intermediate hallucinate Verified 05/29/21 16:41 s lisinopril AdvReac Mild COUGHING Verified 05/29/21 16:41 Home Medications Medication Instructions Recorded Confirmed Type aspirin 81 mg tablet,delayed 81 mg PO QAM 03/26/21 05/29/21 History release clopidogrel 75 mg tablet (Plavix) 75 mg PO QAM 03/26/21 05/29/21 History furosemide 20 mg tablet 40 mg PO QAM 03/26/21 05/29/21 History spironolactone 25 mg tablet 25 mg PO QAM 03/26/21 05/29/21 History blood sugar diagnostic (OneTouch #400 ea 04/21/21 Rx Ultra Blue Test Strip) lancets (OneTouch UltraSoft #400 ea 04/21/21 Rx Lancets) pen needle, diabetic 32 gauge x #400 ea 04/21/21 Rx 1/4" (Novofine 32) carvedilol 12.5 mg tablet 12.5 - 25 mg PO AMPM 05/26/21 05/29/21 History insulin glargine 100 unit/mL (3 20 unit SUBCUT QAM 05/26/21 05/29/21 History mL) subcutaneous pen (Lantus Solostar U-100 Insulin) insulin lispro 100 unit/mL 0 unit SUBCUT BIDM MDD 75 units 05/26/21 05/29/21 History subcutaneous pen (Humalog KwikPen (U-100) Insulin) dw-9-jfr-epa-fish oil-vit D3 300 1 cap PO QAM 05/26/21 05/29/21 History mg-1,000 mg-1,000 unit capsule (Fish Oil-Vit D3) dicyclomine 10 mg capsule 10 mg PO TID PRN #12 cap 05/27/21 05/29/21 Rx famotidine 10 mg tablet 10 mg PO Q2D #14 tab 05/27/21 05/29/21 Rx nifedipine 60 mg tablet,extended 60 mg PO DAILY #30 tab 05/27/21 05/29/21 Rx release 24 hr calcitriol 0.25 mcg capsule 0.25 mcg PO 3XWK #30 cap 05/31/21 Rx Past Med/Surg History Medical History CAD (coronary artery disease) Chronic heart failure with preserved ejection fraction (HFpEF) CKD (chronic kidney disease) Diverticulosis Elevated troponin History of stent insertion of renal artery 2013 Hyperlipidemia Hypertension Hypertensive emergency LVH (left ventricular hypertrophy) Lymphedema Renal artery stenosis Status post myocardial infarction Vulvovaginal candidiasis Surgical History H/O heart artery stent Family History Other Hypertension Social History Smoking Status: Never smoker Second Hand Exposure: No; Hx Alcohol Use: No Hx Substance Use: No Preferred Language: Azeri Communication Ability: Effective Pretzel 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 Required: No Beliefs That Will Affect Care: Buddhism Buddhism Beliefs: Eastern Mormon marital status: Single Current Living Situation: Family Current Living Situation Comment: lives with grandson How many Children do You have: 2 Feels Safe at Home: Yes Assistive Devices: Glasses Review of Systems All systems reviewed & are unremarkable except as noted in HPI & below Physical Exam Constitutional: WD/WN, vitals as above Respiratory: normal respiratory effort, lungs clear to auscultation Cardiovascular: RRR, no murmur, no edema Gastrointestinal (Abdomen): normal bowel sounds, soft, nontender, no hepatosplenomegaly Results & Data ([facility]) Vital Signs (Past 12 Hours) Vital Signs Temp Pulse Pulse Resp BP Pulse Ox 05/31/21 10:54 36.4 C L 69 18 189/115 H 98 05/31/21 08:11 36.7 C 68 18 183/83 H 99 05/31/21 04:32 36.7 C 62 20 159/82 H 96 05/30/21 23:46 67 05/30/21 23:15 36.7 C 72 18 139/77 95 Code Status & VTE Plan VTE Prophylaxis Plan VTE Prophylaxis will be ordered: Yes (1) Chest pain Chest pain type: precordial pain Qualified Code(s): R07.2 - Precordial pain
--- NOTE | 2021-05-31 11:40 | GI REPORT ---
Patient Name: Ayana Mcnulty Procedure Date: 05/31/2021 11:05 AM Date of : 1950 Admit Type: Inpatient Age: 71 Gender: Female Attending MD: Elise Franco DO Procedure: Upper GI endoscopy Providers: Elise Franco DO Referring MD: Placido Quezada Md Indications: Epigastric abdominal pain, Chest pain (non cardiac) Medicines: Propofol per Anesthesia Complications: No immediate complications. Estimated blood loss: Minimal. Estimated Blood Loss: Estimated blood loss was minimal. Procedure: Pre-Anesthesia Assessment: - Prior to the procedure, a History and Physical was performed, and patient medications, allergies and sensitivities were reviewed. The patient's tolerance of previous anesthesia was reviewed. - The risks and benefits of the procedure and the sedation options and risks were discussed with the patient. All questions were answered and informed consent was obtained. - Patient identification and proposed procedure were verified prior to the procedure by the physician and the nurse. The procedure was verified in the pre-procedure area in the procedure room. - Mental Status Examination: alert and oriented. Airway Examination: normal oropharyngeal airway and neck mobility. Respiratory Examination: clear to auscultation. CV Examination: normal. Abdominal Examination: bowel sounds present, abdomen soft and non-tender, no masses or organomegaly noted. - ASA Grade Assessment: III - A patient with severe systemic disease. After obtaining informed consent, the endoscope was passed under direct vision. Throughout the procedure, the patient's blood pressure, pulse, and oxygen saturations were monitored continuously. The Endoscope was introduced through the mouth, and advanced to the second part of duodenum. The upper GI endoscopy was accomplished without difficulty. The patient tolerated the procedure well. Findings: The esophagus was normal. Multiple small erosions with no bleeding and no stigmata of recent bleeding were found in the entire examined stomach. Biopsies were taken with a cold forceps for Helicobacter pylori testing. Verification of patient identification for the specimen was done by the physician and nurse using the patient's name and date. Estimated blood loss was minimal. The examined duodenum was normal. Impression: - Normal esophagus. - Multiple gastric erosions and erosive gastropathy with no bleeding and no stigmata of recent bleeding. Biopsied. - No fresh or altered blood. - Normal examined duodenum. Recommendation: - Await pathology results. - Follow an antireflux regimen. - Use a proton pump inhibitor PO BID. - [facility] care. Elise Franco D.O. Elise Franco, 05/31/2021 11:40:29 AM This report has been signed electronically. Note Initiated On: 05/31/2021 11:05 AM Number of Addenda: 0 I attest to the content of the Intraoperative Record and orders documented therein, exceptions below {[id number]}
[2021-05-31] MEDS ORDERED: LIDOCAINE 2% 2 ML VIAL/AMP(20MG/ML) INFIL ONE (11:47)
[2021-05-31] MEDS ORDERED: ONDANSETRON INJ 2 MG/ML 2 ML VIAL ONE (11:47)
[2021-05-31] MEDS ORDERED: PROPOFOL IV EMULSION 10 MG/ML 20 ML VIAL IV ONE (11:47)
--- NOTE | 2021-05-31 12:12 | Anesthesiology Progress Note ---
Date of Service May 31, 2021 Anesthesia Post Procedure Vital Signs Vital Signs: Temp Pulse Pulse Resp BP BP Pulse Ox 05/31/21 11:37 61 18 213/83 H 96 05/31/21 10:54 36.4 C L 69 18 189/115 H 98 05/31/21 08:11 36.7 C 68 18 183/83 H 99 05/31/21 04:32 36.7 C 62 20 159/82 H 96 05/30/21 23:46 67 05/30/21 23:15 36.7 C 72 18 139/77 95 05/30/21 18:37 36.7 C 61 18 133/77 99 05/30/21 16:00 62 05/30/21 15:13 36.8 C 62 18 139/80 98 Transfer of Care Handoff Completed per policy Notes Mental Status: alert / awake / arousable and participated in evaluation Patient Amnestic to Procedure: Yes Nausea / Vomiting: adequately controlled Pain: adequately controlled Airway Patency, RR, SpO2: stable & adequate BP & HR: stable & adequate Hydration State: stable & adequate Anesthetic Complications: no major complications apparent and Pt Satisfied with anesthetic care
[2021-05-31] MEDS: PANTOprazole 40 MG TAB PO SCH ×2 (12:28→21:32)
[2021-05-31] MEDS: CLOPIDOGREL BISULFATE 75 MG TAB PO SCH (12:28)
--- NOTE | 2021-05-31 14:16 | Pharmacy Report ---
Pharmacy Glycemic Short Note 2 - Date of Service May 31, 2021 - Glycemic Short BSG Results (Last 24 hours): 05/30/21 05/30/21 05/30/21 16:16 20:44 23:52 POC Glucose 140 H 80 155 H 05/31/21 05/31/21 05/31/21 03:51 08:01 12:23 POC Glucose 104 H 121 H 111 H OUTPATIENT ANTIDIABETIC REGIMEN: * Lantus 20 units QAM * Humalog 10 units TIDM; correction w/ lunch and dinner * HbA1c 7.4% (05/30/21) ASSESSMENT: 05/31: * Ayana received a total of 36 units of insulin yesterday * 20 units basal + 16 units bolus * BSGs were: [phone] * Fasting BSG was 121 mg/dL this AM * Patient was NPO for an EGD today; therefore, AM basal was cut in half * Will continue with HS basal scale 05/30: * Patient admitted with chest pain, plans for EGD tomorrow if cleared by cardiology, will be NPO after midnight * Fasting this AM was 226 mg/dL, outpatient lantus dose ordered this morning, will add scale up to 10 additional units this evening if needed * Novolog switched to humalog d/t pt allergy, will tighten CF/CR closer to weight based stress of 2 and total outpatient daily dose stress of 2 * Will continue to monitor trends to make adjustments PLAN FOR INPATIENT GLYCEMIC CONTROL: * Basal insulin * Lantus 10 units SC x 1 this AM * Lantus 0-10 units SC x 1 this PM (see eMAR for more details) * Bolus insulin * NovoLog per scale ACHS or Q6hrs while NPO * Goal Range: Low 110 mg/dL - High 140 mg/dL * Correction Factor: 25 mg/dL/unit * Nutritional / Prandial insulin per carb ratio of 1 unit per 8 grams CHO consumed PLAN FOR DISCHARGE: * To be determined
--- NOTE | 2021-05-31 18:05 | Hospitalist Progress Note ---
Date of Service May 31, 2021 Assessment & Plan (1) Gastritis: Plan: Multiple gastric erosions and erosive gastropathy on EGD Follow up with GI for pathology Pantoprazole 40mg PO BID (2) Chest pain: Plan: Secondary to gastric erosions as above (3) Pericardial effusion: Plan: Repeat limited TTE to assess size of this - no change (4) Hypertension: Plan: Refused to stay last hospitalization for optimization for this. Nifedipine increased last admission from 30 -> 60mg Better controlled now on hydralazine 25mg TID and nitroglycerin 2% paste 2 inches Increased after EGD today although will avoid overtreatment with her anxiety (5) Chronic heart failure with preserved ejection fraction (HFpEF): Plan: Patient is on medications as noted above Does not appear to be in acute CHF at this time. TTE 05/27, has hyperdynamic left ventricle with LVEF of 70%, mild to moderate mitral regurg (6) CKD (chronic kidney disease): Plan: Creatinine is at 3.6, this appears to be her baseline but there does appear to be a slow worsening over time. Patient follows with Dr. Sandoval. (7) Uncontrolled diabetes mellitus, with long-term current use of insulin: Plan: Patient is on Lantus which we will continue Diabetic diet Sliding scale for mealtime insulin Consult pharmacy for glycemic control. Admission and Anticipated Discharge Date Admission Date: May 29, 2021 Subjective Chest pain resolved, no palpitations, dizziness, vision changes, shortness of breath. Discussed care with her son and patient and willing to stay to control her blood pressure. Review of Systems Review of Systems: All systems reviewed & are unremarkable except as noted in HPI & below Physical Exam Constitutional: WD/WN, vitals as above + obese Eyes: + anicteric sclerae; normal pupil size Respiratory: normal respiratory effort, lungs clear to auscultation Cardiovascular: RRR, no murmur, no edema Gastrointestinal (Abdomen): normal bowel sounds, soft, nontender, no hepatosplenomegaly Musculoskeletal: no cyanosis or clubbing, extremities motor strength 5/5 Skin: no rashes, warm and dry Neurologic: moves all extremities and awake; not confused Psychiatric: A+Ox3, euthymic affect Results & Data Results & Data ([facility]) Vital Signs (Past 12 Hours) Vital Signs Temp Pulse Pulse Resp BP Pulse Ox 05/31/21 16:02 36.9 C 66 18 143/75 H 95 05/31/21 15:25 67 05/31/21 13:58 135/79 05/31/21 12:50 71 22 191/67 H 96 05/31/21 12:30 76 20 204/74 H 94 05/31/21 12:07 63 18 203/83 H 96 05/31/21 11:52 62 18 213/83 H 97 05/31/21 11:37 61 18 161/61 H 96 05/31/21 10:54 36.4 C L 69 18 189/115 H 98 05/31/21 08:11 36.7 C 68 18 183/83 H 99 PG Care Time/CCT Total # of Minutes Spent Total Time Spent with Patient: Total time spent is greater than 50% in coordination of care (as documented) at patient's floor/unit and/or counseling patient: Coding Level of Care Code 25969 Subseq Hosp Care Lvl 2 Diagnoses Chest pain R07.9 Chest pain type: unspecified Hypertension I10 Hypertension type: essential hypertension Chronic heart failure with preserved ejection fraction (HFpEF) I50.32 CKD (chronic kidney disease) N18.9 Chronic kidney disease stage: unspecified stage Uncontrolled diabetes mellitus, with long-term current use of insulin E11.65; Z79.4 Pericardial effusion I31.3 Gastritis K29.70 (1) CKD (chronic kidney disease) Chronic kidney disease stage: unspecified stage Qualified Code(s): N18.9 - Chronic kidney disease, unspecified (2) Chest pain Chest pain type: unspecified Qualified Code(s): R07.9 - Chest pain, unspecified (3) Hypertension Hypertension type: essential hypertension Qualified Code(s): I10 - Essential (primary) hypertension
[2021-05-31] MEDS: INSULIN GLARGINE SOLOSTAR 100 UNITS/ML 3 ML PEN SQ SCH (21:33)
[2021-05-31] MEDS: ACETAMINOPHEN 325 MG TAB PO PRN (21:38)
[2021-06-01] MEDS: NITROGLYCERIN 2% OINTMENT 30GM TUBE EXT SCH ×2 (00:23→06:03)
[2021-06-01] MEDS ORDERED: METOCLOPRAMIDE HCL INJ 5 MG/ML 2 ML VIAL IV PRN (04:40)
--- NOTE | 2021-06-01 05:40 | Electrocardiogram Report ---
Test Reason : Blood Pressure : / mmHG Vent. Rate : 058 BPM Atrial Rate : 058 BPM P-R Int : 156 ms QRS Dur : 098 ms QT Int : 470 ms P-R-T Axes : 052 -12 162 degrees QTc Int : 461 ms Sinus bradycardia Left ventricular hypertrophy with repolarization abnormality Abnormal ECG When compared with ECG of 27-MAY-2021 04:17, No significant change was found Confirmed by Kayode Del Cid ([id number]) on 06/01/2021 5:40:02 AM Referred By: REFERRED SELF Confirmed By:Kayode Del Cid
[2021-06-01 05:50] LABS: Basophils # (auto) 0.04 K/uL (0-0.2); Basophils % (auto) 0.3 %; Eosinophils # (auto) 0.18 K/uL (0-0.5); Eosinophils % (auto) 1.5 %; Hematocrit (blood only) 36.9 % (37-47); Hemoglobin 12.1 g/dL (12.0-16.0); Immature Granulocytes % (auto) 0.8 %; Lymphocytes # (auto) 1.93 K/uL (1.2-3.4); Lymphocytes % (auto) 16.1 %; Mean Corpuscular Hemoglobin 28.8 pg (25-34); Mean Corpuscular Hgb Conc 32.8 g/dL (32-36); Mean Corpuscular Volume 87.9 fL (80-100); Mean Platelet Volume 10.9 fL (7.4-10.4); Monocytes # (auto) 1.12 K/uL (0.11-0.59); Monocytes % (auto) 9.3 %; Neutrophils # (auto) 8.63 K/uL (1.4-6.5); Platelet Count 262 K/uL (130-400); RDW Coefficient of Variation 14.6 % (11.5-14.5); RDW Standard Deviation 47.4 fL (36.4-46.3)
--- NOTE | 2021-06-01 06:09 | Electrocardiogram Report ---
Test Reason : Blood Pressure : / mmHG Vent. Rate : 070 BPM Atrial Rate : 070 BPM P-R Int : 164 ms QRS Dur : 098 ms QT Int : 458 ms P-R-T Axes : 065 -06 166 degrees QTc Int : 494 ms Normal sinus rhythm Left ventricular hypertrophy with repolarization abnormality Prolonged QT Abnormal ECG When compared with ECG of 29-MAY-2021 15:13, No significant change was found Confirmed by Kayode Del Cid ([id number]) on 06/01/2021 6:09:21 AM Referred By: REFERRED SELF Confirmed By:Kayode Del Cid
[2021-06-01 06:19] LABS: Albumin Level 2.8 gm/dl (3.4-5.0); BUN Creatinine Ratio 21.9 (10-20); Calcium 8.5 mg/dl (8.5-10.1); Creatinine Clr Calc Pharmacy 15.3 ml/min; Est GFR (African American) 13.5 ml/min; Est GFR (Non-African American) 11.7 ml/min; Potassium 4.3 mmol/L (3.5-5.1)
[2021-06-01 06:21] LABS: Albumin Globulin Ratio 0.8 (0.9-2); Bilirubin,Total 0.3 mg/dl (0.2-1); Globulin 3.7 gm/dl (2.5-4.0); Total Protein 6.5 gm/dl (6.4-8.2)
[2021-06-01] MEDS: FUROSEMIDE 40 MG TAB PO SCH (08:28)
[2021-06-01] MEDS: hydrALAZINE HCL 25 MG TAB PO SCH ×3 (08:28→21:04)
[2021-06-01] MEDS: ACETAMINOPHEN 325 MG TAB PO PRN (08:28)
[2021-06-01] MEDS: PANTOprazole 40 MG TAB PO SCH ×2 (08:28→21:05)
[2021-06-01] MEDS: SPIRONOLACTONE 25 MG TAB PO SCH (08:28)
[2021-06-01] MEDS: NIFEdipine EXTENDED REL 30 MG TABCR PO SCH (08:29)
[2021-06-01] MEDS: ASPIRIN 81 MG ECTAB PO SCH (08:29)
[2021-06-01] MEDS: DICYCLOMINE HCL 10 MG CAP PO PRN (08:29)
[2021-06-01] MEDS: FAMOTIDINE 10 MG TABLET PO SCH (08:29)
[2021-06-01] MEDS: OMEGA-3 (PURIFIED FISH OIL) 1 GM CAP PO SCH (08:29)
[2021-06-01] MEDS: CLOPIDOGREL BISULFATE 75 MG TAB PO SCH (08:29)
[2021-06-01] MEDS: INSULIN HUMAN LISPRO (humaLOG) 100 UNITS/ML VIAL SC SCH ×4 (08:51→20:49)
[2021-06-01] MEDS ORDERED: carvediloL 12.5 MG TAB PO SCH (09:00)
[2021-06-01] MEDS ORDERED: INSULIN GLARGINE SOLOSTAR 100 UNITS/ML 3 ML PEN SQ SCH ×2 (09:00→16:30)
[2021-06-01] MEDS: ISOSORBIDE MONO EXTENDED REL 60 MG TABCR PO SCH (09:41)
[2021-06-01] MEDS ORDERED: FUROSEMIDE 40 MG TAB PO ONE (11:30)
--- NOTE | 2021-06-01 11:37 | Cardiology Progress Note ---
Date of Service June 01, 2021 Assessment & Plan (1) Hypertensive urgency: (2) CAD (coronary artery disease): (3) Elevated troponin: (4) Pericardial effusion: (5) Chronic heart failure with preserved ejection fraction (HFpEF): (6) H/O heart artery stent: Plan: ASSESSMENT/PLAN: 1. Hypertensive urgency: Blood pressure overall improved but was better controlled 2 days ago in the evening. Blood pressure remains elevated today. She has not been receiving her carvedilol and therefore was reordered. This should help improve her blood pressure. If blood pressure remains elevated in the next few days, could consider increasing hydralazine or nifedipine. 2. Elevated troponin: Slight troponin elevation likely due to hypertensive urgency in the setting of severe concentric LVH and CKD. No anginal symptoms. No further evaluation necessary in this regard. 3. CAD s/p PCI (RCA and Cx): No angina. Continue Aspirin 81 mg daily indefinitely. Has chronically been on Plavix. Continue beta-fartun. Unclear why she is no longer taking high-intensity statin therapy. If no contraindication and no intolerance in the past, would resume high-intensity statin therapy. 4. Chronic heart failure with preserved EF: She is not having any symptoms suggestive of heart failure. Edema a bit more pronounced today. Could be due to having her feet down most of the day as she has been sedentary while in the hospital. She typically would take another dose of Lasix at home. Additional Lasix 40 mg p.o. x1 ordered. Elevate feet while sitting. Encouraged ambulation as tolerated. Continue oral diuretic. Low-sodium diet. Follows in [facility] Heart Failure program. 5. CKD: Follows with Nephrology. 6. Renal artery stenosis s/p stent: Follows with Nephrology. 7. Pericardial effusion: No hemodynamically significant effusion was noted. 8. Nausea: As per primary service. 9. Disposition: Patient care communicated with Dr. Quezada of the primary hospitalist service. Admission and Anticipated Discharge Date Admission Date: May 29, 2021 Subjective She denies chest pain, shortness of breath, syncope, near-syncope, palpitations, or bleeding. She is still having some belching, but improved overall. She had some nausea at approximately 3:00 a.m. this morning and also headache. She believes it is due to Protonix which was initiated last evening. She was asked to discuss this with Dr. Quezada. She believes that her edema is worsening and typically at home she would take an additional Lasix. Review of systems: As above. Physical Exam Physical Exam: Gen.: No acute distress. Alert and oriented. HEENT: Anicteric sclera. Neck: Thick neck. Cardiac: PMI was nonpalpable. No ventricular heave. Regular. Normal S1-S2. 2/6 systolic murmur. No rubs, or gallops. Pulmonary: Clear to auscultation bilaterally without wheezes, rales, or rhonchi. Abdomen: Soft, nontender, nondistended, with hyperactive bowel sounds. No bruits noted. Extremities: 2+ radial pulses bilaterally. 2+ posterior tibialis pulses bilaterally. Trace to 1+ bilateral lower extremity edema. No cyanosis. Psychiatric: Affect appears appropriate. Results & Data ([facility]) Vital Signs (Past 12 Hours) Vital Signs Temp Pulse Pulse Resp BP Pulse Ox 06/01/21 08:20 36.7 C 80 18 176/82 H 96 06/01/21 08:00 67 06/01/21 03:57 36.7 C 69 16 162/82 H 96 05/31/21 23:46 71 Intake & Output 05/30/21 05/31/21 06/01/21 06/02/21 06:59 06:59 06:59 06:59 Intake Total 100 / 100 870 / 870 200 / 200 Output Total 0 / 0 202 / 202 Balance 100 / 100 870 / 870 -2 / -2 Weight 214 lb 8.156 oz 208 lb 1.862 oz Laboratory Results Laboratory Results - last 24 hr 05/31/21 05/31/21 05/31/21 12:23 16:30 20:55 WBC RBC Hgb Hct MCV MCH MCHC RDW Std Deviation RDW Coeff of Ekaterina Plt Count MPV Immature Gran % (Auto) Neut % (Auto) Lymph % (Auto) [place] % (Auto) Eos % (Auto) Baso % (Auto) Neut # (Auto) Lymph # (Auto) [place] # (Auto) Eos # (Auto) Baso # (Auto) Immature Gran # (Auto) Sodium Potassium Chloride Carbon Dioxide Anion Gap BUN Creatinine Est Cr Clr Drug Dosing Est GFR ( Amer) Est GFR (Non-Af Amer) BUN/Creatinine Ratio Glucose POC Glucose 111 H 165 H 106 H Calcium Total Bilirubin AST ALT Alkaline Phosphatase Total Protein Albumin Globulin Albumin/Globulin Ratio 06/01/21 06/01/21 06/01/21 05:32 05:32 07:51 WBC 12.00 H RBC 4.20 Hgb 12.1 Hct 36.9 L MCV 87.9 MCH 28.8 MCHC 32.8 RDW Std Deviation 47.4 H RDW Coeff of Ekaterina 14.6 H Plt Count 262 MPV 10.9 H Immature Gran % (Auto) 0.8 Neut % (Auto) 72.0 Lymph % (Auto) 16.1 [place] % (Auto) 9.3 Eos % (Auto) 1.5 Baso % (Auto) 0.3 Neut # (Auto) 8.63 H Lymph # (Auto) 1.93 [place] # (Auto) 1.12 H Eos # (Auto) 0.18 Baso # (Auto) 0.04 Immature Gran # (Auto) 0.10 H Sodium 137 Potassium 4.3 Chloride 108 H Carbon Dioxide 22 Anion Gap 7.0 BUN 81 H Creatinine 3.69 H Est Cr Clr Drug Dosing 15.3 Est GFR ( Amer) 13.5 Est GFR (Non-Af Amer) 11.7 BUN/Creatinine Ratio 21.9 H Glucose 142 H POC Glucose 149 H Calcium 8.5 Total Bilirubin 0.3 AST 9 L ALT 17 Alkaline Phosphatase 104 Total Protein 6.5 Albumin 2.8 L Globulin 3.7 Albumin/Globulin Ratio 0.8 L Diagnostic Findings EGD 05/31/2021: Multiple gastric erosions and erosive gastropathy without bleeding. Telemetry personally reviewed: Sinus rhythm with 1 episode of ventricular tachycardia x4 beats at 10:47 a.m. today. Medications Administered Current Inpatient Medications Acetaminophen (Acetaminophen 325 Mg Tab) 650 mg PO Q4H PRN PRN Reason: Pain or Fever Stop: 06/28/21 21:25 Last Admin: 06/01/21 08:28 Dose: 650 mg Documented by: Aspirin (Aspirin 81 Mg Ectab) 81 mg PO QAM [facility] Stop: 06/29/21 08:59 Last Admin: 06/01/21 08:29 Dose: 81 mg Documented by: Calcitriol (Calcitriol 0.25 Mcg Capsule) 0.25 mcg PO MoWeFr@0900 [facility] Stop: 06/30/21 08:59 Last Admin: 05/31/21 08:44 Dose: 0.25 mcg Documented by: Carvedilol (Carvedilol 25 Mg Tab) 25 mg PO QPM [facility] Stop: 07/01/21 20:59 Carvedilol (Carvedilol 12.5 Mg Tab) 12.5 mg PO QAM [facility] Stop: 07/02/21 08:59 Clopidogrel Bisulfate (Clopidogrel Bisulfate 75 Mg Tab) 75 mg PO QAM [facility] Stop: 06/29/21 08:59 Last Admin: 06/01/21 08:29 Dose: 75 mg Documented by: Dextrose (Dextrose 50% 50 Ml Syringe) 25 - 50 ml IV UD PRN; Protocol PRN Reason: Hypoglycemia Protocol Stop: 06/28/21 21:25 Dicyclomine HCl (Dicyclomine Hcl 10 Mg Cap) 10 mg PO TID PRN PRN Reason: Abdominal Discomfort Stop: 06/28/21 21:25 Last Admin: 06/01/21 08:29 Dose: 10 mg Documented by: Famotidine (Famotidine 10 Mg Tablet) 10 mg PO Q2D [facility] Stop: 06/29/21 08:59 Last Admin: 06/01/21 08:29 Dose: 10 mg Documented by: Fish Oil ([place]-3 (Purified Fish Oil) 1 Gm Cap) 1 gm PO [facility] Stop: 06/29/21 08:59 Last Admin: 06/01/21 08:29 Dose: 1 gm Documented by: Furosemide (Furosemide 40 Mg Tab) 40 mg PO QAM [facility] Stop: 06/29/21 08:59 Last Admin: 06/01/21 08:28 Dose: 40 mg Documented by: Glucagon (Glucagon For Inj 1 Mg Vial) 1 mg SQ UD PRN; Protocol PRN Reason: Hypoglycemia Protocol Stop: 06/28/21 21:25 Glucose (Glucose 10 Tabs/Tube) 4 - 8 tabs PO UD PRN; Protocol PRN Reason: Hypoglycemia Protocol Stop: 06/28/21 21:25 Glucose (Glucose 40% Gel 15 Gm Tube) 15 - 30 gm PO UD PRN; Protocol PRN Reason: Hypoglycemia Protocol Stop: 06/28/21 21:25 Heparin Sodium (Porcine) (Heparin Sod 5,000 Unit/0.5 Ml Vial) 5,000 units SQ Q8 [facility] Stop: 06/28/21 21:59 Last Admin: 05/29/21 22:33 Dose: Not Given Documented by: Hydralazine HCl (Hydralazine Hcl 25 Mg Tab) 25 mg PO TID [facility] Stop: 06/28/21 21:59 Last Admin: 06/01/21 08:28 Dose: 25 mg Documented by: Hydralazine HCl (Hydralazine Hcl 25 Mg Tab) 25 mg PO Q4H PRN PRN Reason: Hypertension Stop: 06/28/21 23:16 Insulin Human Lispro (Insulin Human Lispro (Humalog) 100 Units/Ml Vial) 0 units SC ACHS [facility] Stop: 06/29/21 13:29 Last Admin: 06/01/21 08:51 Dose: 9 units Documented by: Isosorbide Mononitrate (Isosorbide [place] Extended Rel 60 Mg Tabcr) 60 mg PO QAM [facility] Stop: 07/01/21 08:59 Last Admin: 06/01/21 09:41 Dose: 60 mg Documented by: Lorazepam (Lorazepam 1 Mg Tab) 1 mg PO Q8H PRN PRN Reason: Anxiety Stop: 06/30/21 09:03 Metoclopramide HCl (Metoclopramide Hcl Inj 5 Mg/Ml 2 Ml Vial) 10 mg IV Q6H PRN PRN Reason: Nausea Stop: 07/01/21 04:39 Miscellaneous (Carbohydrates For Hypoglycemia ) 15 - 30 gm PO UD PRN PRN Reason: Hypoglycemia Protocol Stop: 06/28/21 21:25 Miscellaneous Information (Pharmacy Glycemic Mgmt Consult) 0 ea N/A UD PRN PRN Reason: Consult Stop: 06/29/21 13:14 Nifedipine (Nifedipine Extended Rel 30 Mg Tabcr) 60 mg PO DAILY [facility] Stop: 06/29/21 08:59 Last Admin: 06/01/21 08:29 Dose: 60 mg Documented by: Pantoprazole Sodium (Pantoprazole 40 Mg Tab) 40 mg PO BID [facility] Stop: 06/30/21 12:14 Last Admin: 06/01/21 08:28 Dose: 40 mg Documented by: Spironolactone (Spironolactone 25 Mg Tab) 25 mg PO QAM [facility] Stop: 06/29/21 08:59 Last Admin: 06/01/21 08:28 Dose: 25 mg Documented by: PG Care Time/CCT Total # of Minutes Spent Total Time Spent with Patient: Total time spent is greater than 50% in coordination of care (as documented) at patient's floor/unit and/or counseling patient: Coding Level of Care Code 56151 Subseq Hosp Care Lvl 3 Diagnoses Elevated troponin R77.8 Hypertensive urgency I16.0 CAD (coronary artery disease) I25.10 Coronary Disease-Associated Artery/Lesion type: [place] artery [place] vs. transplanted heart: [place] heart Associated angina: without angina Pericardial effusion I31.3 Chronic heart failure with preserved ejection fraction (HFpEF) I50.32 H/O heart artery stent Z95.5 (1) CAD (coronary artery disease) Coronary Disease-Associated Artery/Lesion type: [place] artery [place] vs. transplanted heart: [place] heart Associated angina: without angina Qualified Code(s): I25.10 - Atherosclerotic heart disease of [place] coronary artery without angina pectoris
--- NOTE | 2021-06-01 12:18 | Pharmacy Report ---
Pharmacy Glycemic Short Note 2 - Date of Service June 01, 2021 - Glycemic Short BSG Results (Last 24 hours): 05/31/21 05/31/21 05/31/21 12:23 16:30 20:55 Glucose POC Glucose 111 H 165 H 106 H 06/01/21 06/01/21 06/01/21 05:32 07:51 11:43 Glucose 142 H POC Glucose 149 H 190 H OUTPATIENT ANTIDIABETIC REGIMEN: * Lantus 20 units QAM * Humalog 10 units TIDM; correction w/ lunch and dinner * HbA1c 7.4% (05/30/21) ASSESSMENT: 06/01: * Ayana received a total of 25 units of insulin yesterday (she was NPO during the morning) * 10 units basal + 15 units bolus * BSGs ranged from 106 - 165 mg/dL * Fasting BSG was slgihtly elevated this AM: 149 mg/dL * likely due to partial dose of basal insulin on 06/01 AM for NPO status * will titrate basal back to home dose * Post prandial BSGs were at/near goal. No changes to novolog today. 05/31: * Ayana received a total of 36 units of insulin yesterday * 20 units basal + 16 units bolus * BSGs were: [id number] * Fasting BSG was 121 mg/dL this AM * Patient was NPO for an EGD today; therefore, AM basal was cut in half * Will continue with HS basal scale 05/30: * Patient admitted with chest pain, plans for EGD tomorrow if cleared by cardiology, will be NPO after midnight * Fasting this AM was 226 mg/dL, outpatient lantus dose ordered this morning, will add scale up to 10 additional units this evening if needed * Novolog switched to humalog d/t pt allergy, will tighten CF/CR closer to weight based stress of 2 and total outpatient daily dose stress of 2 * Will continue to monitor trends to make adjustments PLAN FOR INPATIENT GLYCEMIC CONTROL: * Basal insulin * Lantus 15 units SC x 1 this AM * Lantus 0-5 units SC x 1 this PM (see eMAR for more details) * May resume 20 units SQ qam on 06/02 * Bolus insulin * NovoLog per scale ACHS or Q6hrs while NPO * Goal Range: Low 110 mg/dL - High 140 mg/dL * Correction Factor: 25 mg/dL/unit * Nutritional / Prandial insulin per carb ratio of 1 unit per 8 grams CHO consumed PLAN FOR DISCHARGE: * A1c = 7.4% (05/27/21) * A1c is acceptable based on patient age and comorbidities. Recommend continuation of current regimen.
[2021-06-01] MEDS ORDERED: ONDANSETRON INJ 2 MG/ML 2 ML VIAL IV PRN (13:56)
[2021-06-01] MEDS: HEPARIN SOD 5,000 UNIT/0.5 ML VIAL SQ SCH ×2 (15:11→21:04)
--- NOTE | 2021-06-01 18:05 | Nephrology Consultation ---
Date of Consultation June 01, 2021 Assessment & Plan (1) Acute kidney injury superimposed on CKD: Non-oliguric. Electrolytes acceptable. No emergent indication for dialysis. Medications appropriately dosed for kidney dysfunction. UA/micro ordered. Document I/O's and repeat metabolic profile tomorrow AM. (2) CKD (chronic kidney disease), stage IV: Goals of care reviewed in detail today. Calcitriol as Rx. 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 Nifedipine or spironolactone may be increased as needed if BP remains elevated. Cardiology consultation and cardiac risk factor goals reviewed. Low sodium diet. No evidence of decompensated CHF at this time. (4) Hypertensive urgency: Volume status acceptable. BP improved. Tolerating current therapy well. Defer additional renovascular imaging now. History of Present Illness Reason for Consultation: TIFFANY/CKD, hypertension Requesting Physician: Placido Quezada MD Attending Physician: Placido Quezada MD History of Present Illness Mrs. Ayana Mcnulty is a 71-year-old female with chronic kidney disease IV A3. Baseline creatinine ~3.5 mg/dL. Medical history includes significant vascular disease including renovascular disease and CAD. Left renal artery stent placed in 2013. She has resistant hypertension and multiple prior hospitalizations with accelerated hypertension. Ayana has had recurrent symptomatic accelerated hypertension. I have followed Ayana in the nephrology clinic for several years. We have discussed potential future need for dialysis in detail. Ayana was recently hospitalized from April from May 26 to May 27. She was admitted with elevated BP readings and felodipine was increased. Ayana was encouraged to stay for additional evaluation by the hospitalist but requested discharge. She returned to the hospital with dyspepsia and chest pain on May 29. She has accelerated hypertension. Cardiology and GI consultation obtained. EGD demonstrated multiple gastric erosions and erosive gastropathy. Ayana is being treated with pantoprazole. Ayana continues to have intermittent nausea but otherwise feels well. She notes that she was having fluid retention post recent hospital discharge and had increase furosemide to 80 mg daily for 24 hours. Overall she feels well now without additional chest pain or pressure. Carvedilol was held on admission and BP has improved since restarting the medication. Allergies Allergy/AdvReac Type Severity Reaction Status Date / Time heparin Allergy Hives Verified 05/29/21 23:23 insulin aspart Allergy Hives Verified 05/29/21 16:41 [From Novolog U-100 Insulin aspart] meperidine AdvReac Intermediate hallucinate Verified 05/29/21 16:41 s lisinopril AdvReac Mild COUGHING Verified 05/29/21 16:41 Home Medications Medication Instructions Recorded Confirmed Type aspirin 81 mg tablet,delayed 81 mg PO QAM 03/26/21 05/29/21 History release clopidogrel 75 mg tablet (Plavix) 75 mg PO QAM 03/26/21 05/29/21 History furosemide 20 mg tablet 40 mg PO QAM 03/26/21 05/29/21 History spironolactone 25 mg tablet 25 mg PO QAM 03/26/21 05/29/21 History blood sugar diagnostic (OneTouch #400 ea 04/21/21 Rx Ultra Blue Test Strip) lancets (Karisma KidzTouch UltraSoft #400 ea 04/21/21 Rx Lancets) pen needle, diabetic 32 gauge x #400 ea 04/21/21 Rx 1/4" (Novofine 32) carvedilol 12.5 mg tablet 12.5 - 25 mg PO AMPM 05/26/21 05/29/21 History insulin glargine 100 unit/mL (3 20 unit SUBCUT QAM 05/26/21 05/29/21 History mL) subcutaneous pen (Lantus Solostar U-100 Insulin) insulin lispro 100 unit/mL 0 unit SUBCUT BIDM MDD 75 units 05/26/21 05/29/21 History subcutaneous pen (Humalog KwikPen (U-100) Insulin) [id number] oil-vit D3 300 1 cap PO QAM 05/26/21 05/29/21 History mg-1,000 mg-1,000 unit capsule (Fish Oil-Vit D3) dicyclomine 10 mg capsule 10 mg PO TID PRN #12 cap 05/27/21 05/29/21 Rx famotidine 10 mg tablet 10 mg PO Q2D #14 tab 05/27/21 05/29/21 Rx nifedipine 60 mg tablet,extended 60 mg PO DAILY #30 tab 05/27/21 05/29/21 Rx release 24 hr calcitriol 0.25 mcg capsule 0.25 mcg PO 3XWK #30 cap 05/31/21 Rx Patient History Medical History CAD (coronary artery disease) Chronic heart failure with preserved ejection fraction (HFpEF) CKD (chronic kidney disease) Diverticulosis Elevated troponin History of stent insertion of renal artery 2014 Hyperlipidemia Hypertension Hypertensive emergency LVH (left ventricular hypertrophy) Lymphedema Renal artery stenosis Status post myocardial infarction Vulvovaginal candidiasis Surgical History H/O heart artery stent Family History Other Hypertension Social History Smoking Status: Never smoker Second Hand Exposure: No; Hx Alcohol Use: No Hx Substance Use: No Preferred Language: Faroese Communication Ability: Effective Sample Sawyer Required: No Beliefs That Will Affect Care: Scientology Scientology Beliefs: Eastern Christian marital status: Single Current Living Situation: Family Current Living Situation Comment: lives with grandson How many Children do You have: 2 Feels Safe at Home: Yes Assistive Devices: Glasses Review of Systems Review of Systems: All systems reviewed & are unremarkable except as noted in HPI & below Gastrointestinal: + constipation Physical Exam Constitutional: well developed and + obese; no acute distress Eyes: no scleral abnormality and no corneal abnormality ENMT: Mouth: no oral mucosal abnormality and oral mucous membranes not dry Neck: normal visual inspection and trachea midline Respiratory: normal respiratory effort Auscultation: lungs clear to auscultation bilaterally Cardiovascular: Rate/Rhythm: regular rate Heart Sounds: normal S1 and normal S2 Extremities: no edema Musculoskeletal: Extremities: no cyanosis and no clubbing Skin: normal turgor; no lesions Neurologic: Motor/Sensory: no tremor and no asterixis Psychiatric: Orientation: alert and oriented x 3 Results & Data ([facility]) Vital Signs (Past 12 Hours) Vital Signs Temp Pulse Pulse Resp BP Pulse Ox 06/01/21 16:35 36.6 C 67 18 125/74 96 06/01/21 15:19 67 06/01/21 11:59 36.8 C 67 18 155/79 H 97 06/01/21 08:20 36.7 C 80 18 176/82 H 96 06/01/21 08:00 67 Laboratory Results Laboratory Results - last 24 hr 0806/01/21 06/01/21 20:55 05:32 05:32 WBC 12.00 H RBC 4.20 Hgb 12.1 Hct 36.9 L MCV 87.9 MCH 28.8 MCHC 32.8 RDW Std Deviation 47.4 H RDW Coeff of Ekaterina 14.6 H Plt Count 262 MPV 10.9 H Immature Gran % (Auto) 0.8 Neut % (Auto) 72.0 Lymph % (Auto) 16.1 Wallace % (Auto) 9.3 Eos % (Auto) 1.5 Baso % (Auto) 0.3 Neut # (Auto) 8.63 H Lymph # (Auto) 1.93 Wallace # (Auto) 1.12 H Eos # (Auto) 0.18 Baso # (Auto) 0.04 Immature Gran # (Auto) 0.10 H Sodium 137 Potassium 4.3 Chloride 108 H Carbon Dioxide 22 Anion Gap 7.0 BUN 81 H Creatinine 3.69 H Est Cr Clr Drug Dosing 15.3 Est GFR ( Amer) 13.5 Est GFR (Non-Af Amer) 11.7 BUN/Creatinine Ratio 21.9 H Glucose 142 H POC Glucose 106 H Calcium 8.5 Total Bilirubin 0.3 AST 9 L ALT 17 Alkaline Phosphatase 104 Total Protein 6.5 Albumin 2.8 L Globulin 3.7 Albumin/Globulin Ratio 0.8 L 06/01/21 06/01/21 06/01/21 07:51 11:43 17:14 WBC RBC Hgb Hct MCV MCH MCHC RDW Std Deviation RDW Coeff of Ekaterina Plt Count MPV Immature Gran % (Auto) Neut % (Auto) Lymph % (Auto) Wallace % (Auto) Eos % (Auto) Baso % (Auto) Neut # (Auto) Lymph # (Auto) Wallace # (Auto) Eos # (Auto) Baso # (Auto) Immature Gran # (Auto) Sodium Potassium Chloride Carbon Dioxide Anion Gap BUN Creatinine Est Cr Clr Drug Dosing Est GFR ( Amer) Est GFR (Non-Af Amer) BUN/Creatinine Ratio Glucose POC Glucose 149 H 190 H 112 H Calcium Total Bilirubin AST ALT Alkaline Phosphatase Total Protein Albumin Globulin Albumin/Globulin Ratio PG Care Time/CCT Total # of Minutes Spent Total Time Spent with Patient: Total time spent is greater than 50% in coordination of care (as documented) at patient's floor/unit and/or counseling patient: Coding Level of Care Code 26859 Inpt Consult Level 4 Diagnoses Hypertensive urgency I16.0 Acute kidney injury superimposed on CKD N17.9; N18.9 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
[2021-06-01 20:36] LABS: Appearance Urine Cloudy (Clear); Bacteria Urine Automated Negative (Negative); Bilirubin Urine Negative (Negative); Blood Urine Negative (Negative); Color Urine Yellow; Epithelial Cell Urine Auto >30 /lpf (0-5); Glucose Urine UA Trace (Negative); Ketones Urine Negative (Negative); Leukocyte Esterase Urine Trace (Negative); Nitrite Urine Negative (Negative); Protein Urine 2+ (Negative); Specific Gravity Urine 1.011 (1.000-1.030); Urobilinogen Urine Negative (Negative)
[2021-06-01 20:47] LABS: RBC Urine Automated 0-4 /hpf (0-4)
[2021-06-01] MEDS ORDERED: carvediloL 25 MG TAB PO SCH (21:00)
--- NOTE | 2021-06-01 21:30 | Hospitalist Progress Note ---
Date of Service June 01, 2021 Assessment & Plan (1) Gastritis: Plan: Multiple gastric erosions and erosive gastropathy on EGD Follow up with GI for pathology Pantoprazole 40mg PO BID Can discontinue famotidine on discharge. (2) Chest pain: Plan: Secondary to gastric erosions as above (3) Hypertensive emergency: Plan: Hypertensive emergency with increased troponin Refused to stay last hospitalization for optimization for this. Nifedipine increased last admission from 30 -> 60mg Started on hydralazine 25mg TID, switch nitroglycerin paste with ISMN 60mg PO daily Carvedilol held on admission, restarted this morning by cardiology (4) Pericardial effusion: Plan: Repeat limited TTE to assess size of this - no change (5) Chronic heart failure with preserved ejection fraction (HFpEF): Plan: Patient is on medications as noted above Does not appear to be in acute CHF at this time. TTE 05/27, has hyperdynamic left ventricle with LVEF of 70%, mild to moderate mitral regurg (6) CKD (chronic kidney disease): Plan: Creatinine at baseline, slow worsening over time. Patient follows with Dr. Sandoval, will consult to help with hypertension management. (7) Uncontrolled diabetes mellitus, with long-term current use of insulin: Plan: Patient is on Lantus which we will continue Diabetic diet Sliding scale for mealtime insulin Consult pharmacy for glycemic control. Plan: VTE prophylaxis - heparin 5000 units Q8H Disposition - can transfer to medical Admission and Anticipated Discharge Date Admission Date: May 29, 2021 Subjective No recurrence in chest pain. Having more belching and associated nausea. No dizziness, lightheadedness or vision changes. No abdominal pain. Review of Systems Review of Systems: All systems reviewed & are unremarkable except as noted in HPI & below Physical Exam Constitutional: WD/WN, vitals as above + obese Eyes: + anicteric sclerae; normal pupil size Respiratory: normal respiratory effort, lungs clear to auscultation Cardiovascular: Rate/Rhythm: regular rate and regular rhythm Extremities: + pedal edema (trace b/l equal pitting) Gastrointestinal (Abdomen): Inspection/Auscultation: normal bowel sounds; abdomen not distended Percussion/Palpation: abdomen soft; abdomen nontender Neurologic: moves all extremities and awake; not confused Psychiatric: A+Ox3, euthymic affect Results & Data Results & Data ([facility]) Vital Signs (Past 12 Hours) Vital Signs Temp Pulse Pulse Resp BP Pulse Ox 06/01/21 19:56 37.1 C 66 18 141/74 H 96 06/01/21 16:35 36.6 C 67 18 125/74 96 06/01/21 15:19 67 06/01/21 11:59 36.8 C 67 18 155/79 H 97 PG Care Time/CCT Total # of Minutes Spent Total Time Spent with Patient: Total time spent is greater than 50% in coordination of care (as documented) at patient's floor/unit and/or counseling patient: Coding Level of Care Code 62115 Subseq Hosp Care Lvl 2 Diagnoses Gastritis K29.70 Chest pain R07.9 Chest pain type: unspecified Pericardial effusion I31.3 Chronic heart failure with preserved ejection fraction (HFpEF) I50.32 CKD (chronic kidney disease) N18.9 Chronic kidney disease stage: unspecified stage Uncontrolled diabetes mellitus, with long-term current use of insulin E11.65; Z79.4 Hypertensive emergency I16.1 (1) Chest pain Chest pain type: unspecified Qualified Code(s): R07.9 - Chest pain, unspecified (2) CKD (chronic kidney disease) Chronic kidney disease stage: unspecified stage Qualified Code(s): N18.9 - Chronic kidney disease, unspecified
[2021-06-02] MEDS ORDERED: hydrALAZINE HCL 25 MG TAB PO SCH
[2021-06-02] MEDS: HEPARIN SOD 5,000 UNIT/0.5 ML VIAL SQ SCH ×2 (05:08→16:07)
--- NOTE | 2021-06-02 06:38 | Electrocardiogram Report ---
Test Reason : Blood Pressure : / mmHG Vent. Rate : 060 BPM Atrial Rate : 060 BPM P-R Int : 160 ms QRS Dur : 098 ms QT Int : 490 ms P-R-T Axes : 059 -07 166 degrees QTc Int : 490 ms Normal sinus rhythm Left ventricular hypertrophy with repolarization abnormality Prolonged QT Abnormal ECG When compared with ECG of 30-MAY-2021 06:33, No significant change was found Confirmed by Kayode Del Cid ([id number]) on 06/02/2021 6:38:28 AM Referred By: REFERRED SELF Confirmed By:Kayode Del Cid
[2021-06-02 08:12] LABS: BUN Creatinine Ratio 21.1 (10-20); Calcium 8.4 mg/dl (8.5-10.1); Creatinine Clr Calc Pharmacy 14.2 ml/min; Est GFR (African American) 12.4 ml/min; Est GFR (Non-African American) 10.7 ml/min; Potassium 4.5 mmol/L (3.5-5.1)
[2021-06-02] MEDS ORDERED: INSULIN GLARGINE SOLOSTAR 100 UNITS/ML 3 ML PEN SQ SCH (09:00)
[2021-06-02] MEDS: OMEGA-3 (PURIFIED FISH OIL) 1 GM CAP PO SCH (09:48)
[2021-06-02] MEDS: CALCITRIOL 0.25 MCG CAPSULE PO SCH (09:49)
[2021-06-02] MEDS: carvediloL 12.5 MG TAB PO SCH ×2 (09:49→09:51)
[2021-06-02] MEDS: hydrALAZINE HCL 25 MG TAB PO SCH ×2 (09:49→16:08)
[2021-06-02] MEDS: SPIRONOLACTONE 25 MG TAB PO SCH (09:49)
[2021-06-02] MEDS: NIFEdipine EXTENDED REL 30 MG TABCR PO SCH (09:50)
[2021-06-02] MEDS: PANTOprazole 40 MG TAB PO SCH (09:51)
[2021-06-02] MEDS: CLOPIDOGREL BISULFATE 75 MG TAB PO SCH (09:52)
[2021-06-02] MEDS: ISOSORBIDE MONO EXTENDED REL 60 MG TABCR PO SCH (09:52)
[2021-06-02] MEDS: ASPIRIN 81 MG ECTAB PO SCH (09:53)
[2021-06-02] MEDS: INSULIN HUMAN LISPRO (humaLOG) 100 UNITS/ML VIAL SC SCH ×2 (09:54→12:16)
[2021-06-02] MEDS: FUROSEMIDE 40 MG TAB PO SCH (10:00)
--- NOTE | 2021-06-02 12:48 | Nephrology Progress Note ---
Date of Service June 02, 2021 Assessment & Plan (1) Acute kidney injury superimposed on CKD: Plan: Non-oliguric. Electrolytes acceptable. No emergent indication for dialysis. Medications appropriately dosed for kidney dysfunction. Urine microscopy acellular. Opted to defer adjustment in diuretics today. Ayana may be slightly intravascularly depleted but overall volume status acceptable and BP improved. I told her this morning that ultimately kidney dysfunction is advanced and there may not be much more that can be offered to prevent progression. She expressed understanding. We have discussed potential future indications for dialysis in detail. Document I/O's and repeat metabolic profile tomorrow AM. (2) CKD (chronic kidney disease), stage IV: Plan: Goals of care reviewed in detail today. Calcitriol as Rx. 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 Cardiology consultation and cardiac risk factor goals reviewed. Low sodium diet. No evidence of decompensated CHF at this time. (4) Hypertensive urgency: Plan: Volume status acceptable. BP improved. Tolerating current therapy well. Defer additional renovascular imaging now. Admission and Anticipated Discharge Date Admission Date: May 29, 2021 Subjective No acute events overnight. No chest pain. Some persistent dyspepsia. No edema. Constipation improved. Overall Ayana feels well. She was hoping to be discharged home today but agreeable to stay for additional evaluation. She was also reticent to decrease furosemide due to issues with fluid retention in the past. Review of Systems Constitutional: no weight loss, no weight gain and no problem reported Eyes: no problem reported Ear, Nose, Mouth, Throat: no problem reported Respiratory: no problem reported Cardiovascular: no problem reported Gastrointestinal: no problem reported Musculoskeletal: no problem reported Integumentary: no problem reported Neurologic: no problem reported Psychiatric: no problem reported Endocrine: no problem reported Hematologic / Lymphatic: no problem reported Physical Exam Constitutional: well developed and + obese; no acute distress Eyes: no scleral abnormality and no corneal abnormality ENMT: Mouth: no oral mucosal abnormality and oral mucous membranes not dry Neck: normal visual inspection and trachea midline Respiratory: normal respiratory effort Auscultation: lungs clear to auscultation bilaterally Cardiovascular: Rate/Rhythm: regular rate Heart Sounds: normal S1 and normal S2 Extremities: no edema Musculoskeletal: Extremities: no cyanosis and no clubbing Skin: normal turgor; no lesions Neurologic: Motor/Sensory: no tremor and no asterixis Psychiatric: Orientation: alert and oriented x 3 Results & Data ([facility]) Vital Signs (Past 12 Hours) Vital Signs Temp Pulse Pulse Resp BP Pulse Ox 06/02/21 11:56 36.4 C L 73 18 164/80 H 95 06/02/21 11:55 65 06/02/21 08:01 36.5 C 67 16 136/73 95 06/02/21 05:15 36.6 C 71 16 136/71 92 Laboratory Results Laboratory Results - last 24 hr 06/01/21 06/01/21 06/01/21 17:14 20:22 20:38 Sodium Potassium Chloride Carbon Dioxide Anion Gap BUN Creatinine Est Cr Clr Drug Dosing Est GFR ( Amer) Est GFR (Non-Af Amer) BUN/Creatinine Ratio Glucose POC Glucose 112 H 125 H Calcium Urine Color Yellow Urine Appearance Cloudy A Urine pH 5.0 Ur Specific [place] 1.011 Urine Protein 2+ H Urine Glucose (UA) Trace H Urine Ketones Negative Urine Blood Negative Urine Nitrite Negative Urine Bilirubin Negative Urine Urobilinogen Negative Ur Leukocyte Esterase Trace H Urine WBC (Auto) 1-5 Urine RBC (Auto) 0-4 U Hyaline Cast (Auto) 1-5 U Epithel Cells (Auto) >30 H Urine Bacteria (Auto) Negative 06/02/21 06/02/21 06/02/21 07:28 07:46 11:40 Sodium 135 L Potassium 4.5 Chloride 108 H Carbon Dioxide 19 L Anion Gap 9.0 BUN 83 H Creatinine 3.96 H Est Cr Clr Drug Dosing 14.2 Est GFR ( Amer) 12.4 Est GFR (Non-Af Amer) 10.7 BUN/Creatinine Ratio 21.1 H Glucose 183 H POC Glucose 193 H 185 H Calcium 8.4 L Urine Color Urine Appearance Urine pH Ur Specific [place] Urine Protein Urine Glucose (UA) Urine Ketones Urine Blood Urine Nitrite Urine Bilirubin Urine Urobilinogen Ur Leukocyte Esterase Urine WBC (Auto) Urine RBC (Auto) U Hyaline Cast (Auto) U Epithel Cells (Auto) Urine Bacteria (Auto) PG Care Time/CCT Total # of Minutes Spent Total Time Spent with Patient: Total time spent is greater than 50% in coordination of care (as documented) at patient's floor/unit and/or counseling patient: Coding Level of Care Code 49910 Subseq Hosp Care Lvl 3 Diagnoses Acute kidney injury superimposed on CKD N17.9; N18.9 CKD (chronic kidney disease), stage IV N18.4 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
--- NOTE | 2021-06-02 12:49 | Pharmacy Report ---
Pharmacy Glycemic Short Note 2 - Date of Service June 02, 2021 - Glycemic Short BSG Results (Last 24 hours): 06/01/21 06/01/21 06/01/21 11:43 17:14 20:38 Glucose POC Glucose 190 H 112 H 125 H 06/02/21 06/02/21 07:28 07:46 Glucose 183 H POC Glucose 193 H OUTPATIENT ANTIDIABETIC REGIMEN: * Lantus 20 units QAM * Humalog 10 units TIDM; correction w/ lunch and dinner * HbA1c 7.4% (05/30/21) ASSESSMENT: 06/02 * Pt has received 39 units of insulin over the past 24hrs * 15 units of basal with Lantus * 24 units of bolus with NovoLog * BSGs [id number] mg/dl * AM fasting BSG is elevated at 193 mg/dl. Most likely d/t reduced basal insulin dosing x 2 days. Will increase Lantus back to outpatient dosing of 20 units daily and titrate based on BSG trends * No changes needed to CF/CR- post-prandial BSGs are in goal range. 06/01: * Ayana received a total of 25 units of insulin yesterday (she was NPO during the morning) * 10 units basal + 15 units bolus * BSGs ranged from 106 - 165 mg/dL * Fasting BSG was slgihtly elevated this AM: 149 mg/dL * likely due to partial dose of basal insulin on 06/01 AM for NPO status * will titrate basal back to home dose * Post prandial BSGs were at/near goal. No changes to novolog today. 05/31: * Ayana received a total of 36 units of insulin yesterday * 20 units basal + 16 units bolus * BSGs were: [id number] * Fasting BSG was 121 mg/dL this AM * Patient was NPO for an EGD today; therefore, AM basal was cut in half * Will continue with HS basal scale 05/30: * Patient admitted with chest pain, plans for EGD tomorrow if cleared by cardiology, will be NPO after midnight * Fasting this AM was 226 mg/dL, outpatient lantus dose ordered this morning, will add scale up to 10 additional units this evening if needed * Novolog switched to humalog d/t pt allergy, will tighten CF/CR closer to weight based stress of 2 and total outpatient daily dose stress of 2 * Will continue to monitor trends to make adjustments PLAN FOR INPATIENT GLYCEMIC CONTROL: * Basal insulin * Lantus 20 units SQ AM * Bolus insulin * NovoLog per scale ACHS or Q6hrs while NPO * Goal Range: Low 110 mg/dL - High 140 mg/dL * Correction Factor: 25 mg/dL/unit * Nutritional / Prandial insulin per carb ratio of 1 unit per 8 grams CHO consumed PLAN FOR DISCHARGE: * A1c = 7.4% (05/27/21) * A1c is acceptable based on patient age and comorbidities. Recommend continuation of current regimen.
--- NOTE | 2021-06-02 12:52 | Hospitalist Progress Note ---
Date of Service June 02, 2021 Assessment & Plan (1) Gastritis: Plan: Multiple gastric erosions and erosive gastropathy on EGD Follow up with GI for pathology Pantoprazole 40mg PO BID Can discontinue famotidine on discharge. (2) Chest pain: Plan: Secondary to gastric erosions as above (3) Hypertensive emergency: Plan: Hypertensive emergency with increased troponin Refused to stay last hospitalization for optimization for this. Nifedipine increased last admission from 30 -> 60mg Started on hydralazine 25mg TID, switch nitroglycerin paste with ISMN 60mg PO daily Carvedilol held on admission, restarted this morning by cardiology (4) Pericardial effusion: Plan: Repeat limited TTE to assess size of this - no change (5) Chronic heart failure with preserved ejection fraction (HFpEF): Plan: Patient is on medications as noted above Does not appear to be in acute CHF at this time. TTE 05/27, has hyperdynamic left ventricle with LVEF of 70%, mild to moderate mitral regurg (6) CKD (chronic kidney disease): Plan: Creatinine at baseline, slow worsening over time. Patient follows with Dr. Sandoval, will consult to help with hypertension management. (7) Uncontrolled diabetes mellitus, with long-term current use of insulin: Plan: Patient is on Lantus which we will continue Diabetic diet Sliding scale for mealtime insulin Consult pharmacy for glycemic control. Plan: VTE prophylaxis - heparin 5000 units Q8H Disposition - can transfer to medical Admission and Anticipated Discharge Date Admission Date: May 29, 2021 Results & Data Results & Data ([facility]) Vital Signs (Past 12 Hours) Vital Signs Temp Pulse Pulse Resp BP Pulse Ox 06/02/21 11:56 36.4 C L 73 18 164/80 H 95 06/02/21 11:55 65 06/02/21 08:01 36.5 C 67 16 136/73 95 06/02/21 05:15 36.6 C 71 16 136/71 92 PG Care Time/CCT Total # of Minutes Spent Total Time Spent with Patient: Total time spent is greater than 50% in coordination of care (as documented) at patient's floor/unit and/or counseling patient: Coding Diagnoses Gastritis K29.70 Chest pain R07.9 Chest pain type: unspecified Hypertensive emergency I16.1 Pericardial effusion I31.3 Chronic heart failure with preserved ejection fraction (HFpEF) I50.32 CKD (chronic kidney disease) N18.9 Chronic kidney disease stage: unspecified stage Uncontrolled diabetes mellitus, with long-term current use of insulin E11.65; Z79.4 (1) Chest pain Chest pain type: unspecified Qualified Code(s): R07.9 - Chest pain, unspecified (2) CKD (chronic kidney disease) Chronic kidney disease stage: unspecified stage Qualified Code(s): N18.9 - Chronic kidney disease, unspecified
[2021-06-02] MEDS ORDERED: FUROSEMIDE 40 MG TAB PO ONE (13:00)
[2021-06-03] MEDS ORDERED: INSULIN GLARGINE SOLOSTAR 100 UNITS/ML 3 ML PEN SQ SCH (09:00)
--- NOTE | 2021-06-19 06:45 | Discharge Summary ---
Date of Service June 02, 2021 Admission HPI Per Admitting Provider This patient is a 71-year-old female who has a history of coronary artery disease but also GERD and kidney problems, comes in after having episode of chest discomfort she is been belching and burping a lot she says it starts in her head and goes into her chest she was just admitted over the weekend and discharged on Saturday for similar complaint she said she was okay Saturday and Saturday but occurred again today. She was brought in by EMS they did give her aspirin 324 mg on route route. Her blood pressure was elevated at home today although they tell me it was better on route and not elevated. She denies any shortness of breath. No trauma or injury. No pain or swelling in her legs. Principal Diagnosis Hypertensive emergency Gastritis Discharge Exam Constitutional WD/WN, vitals as above + obese; no acute distress Eyes PERRL, conjunctivae normal, anicteric sclerae Respiratory normal respiratory effort, lungs clear to auscultation Cardiovascular Rate/Rhythm: regular rate and regular rhythm Extremities: normal capillary refill and + pedal edema (trace b/l ankles) Gastrointestinal (Abdomen) normal bowel sounds, soft, nontender, no hepatosplenomegaly Skin no rashes, warm and dry Neurologic moves all extremities and awake; not confused Psychiatric A+Ox3, euthymic affect Discharge Data Allergies Allergy/AdvReac Type Severity Reaction Status Date / Time heparin Allergy Hives Verified 06/12/21 16:36 insulin aspart Allergy Hives Verified 06/12/21 16:36 [From Novolog U-100 Insulin aspart] meperidine AdvReac Intermediate hallucinate Verified 06/12/21 16:36 s lisinopril AdvReac Mild COUGHING Verified 06/12/21 16:36 Consultations 05/29/21 17:23 ED Decision to Admit Stat 05/29/21 21:26 Consult Cardiology Routine Consult Gastroenterology Routine 06/01/21 13:49 Consult Nephrology Routine Procedures Performed Operation Date: 05/31/21 16:15 Actual Procedures p EGD Biopsy Cytology - Elise Franco, Hospital Course (1) Gastritis: (2) Chest pain: (3) Hypertensive emergency: (4) Pericardial effusion: (5) Chronic heart failure with preserved ejection fraction (HFpEF): (6) CKD (chronic kidney disease): (7) Uncontrolled diabetes mellitus, with long-term current use of insulin: Ayana Mcnulty is a 71 year old female admitted to [facility] from May 29 to 2020 due to chest pain and hypertensive emerg ency. Her chest pain is most likely reflux related and gastric erosions seen on endoscopy performed by Dr Franco on May 31, 2021. She was started on pantoprazole 40mg twice a day for this with resolution of her symptoms. She will also continue on previously prescribed famotidine for the next week and then discontinue this. Her stay was prolonged to help with blood pressure management coordinated with her energy manager Dr Sandoval. Blood pressure now much better controlled with addition of isosorbide mononitrate and hydralazine in addition to your other blood pressure medication. She will follow up with her energy manager next week for ongoing management of this. Initial plan to continue inpatient stay but after moving rooms to the medical floor she requested discharge home. Her blood pressure appears much better than when she was recently discharged last admission therefore appears reasonable for discharge as long as she keeps close follow up with Dr Sandoval. Total Time Total Time Spent Total Time Spent (In Minutes): 40 Discharge Plan Discharge Items Patient Disposition: Home - Self-Care Reason For Visit: CHEST PAIN, HYPERTENSION Discharge Diagnosis: Hypertensive emergency Gastritis Activity: Resume your previous activity Non-emergency contact: Primary Care Provider Call non-emergency contact if: you have any medication questions and your symptoms worsen Follow-up/Referrals: Danny Sandoval DO [Physician] - Shay Hammond [Primary Care Provider] - Elise Franco DO [Physician] - (approximately 4 weeks) Diet: Carb Consistent or DM2 and Heart Healthy Addtl Attending Provider Instructions: You were admitted to [facility] from May 29 to 2020 due to chest pain and hypertensive emergency. Your chest pain is most likely reflux related and gastric erosions seen on endoscopy. Recommend starting pantoprazole 40mg twice a day for this and following up with gastroenterology. Use previously prescribed famotidine for the next week and then discontinue this. For your blood pressure - management was co-ordinated with your energy manager Dr Sandoval and you have been started on isosorbide mononitrate and hydralazine in addition to your other blood pressure medication. Please follow up with your energy manager next week for ongoing management of this. Pending Studies at Discharge: No Stand-Alone Forms: My [facility], Smoking Cessation Medications and DC Order Prescriptions: Continued clopidogrel [Plavix] 75 mg tablet 75 mg PO QAM RF: 0 furosemide 20 mg tablet 40 mg PO QAM RF: 0 [id number]-fish oil-vit D3 [Fish Oil-Vit D3] 300-1,000-1,000 mg-mg-unit Capsule 1 cap PO QAM RF: 0 insulin lispro [Humalog KwikPen Insulin] 100 unit/mL insulin pen 0 unit subcut BIDM MDD 75 units RF: 0 No Action Lantus Solostar U-100 Insulin 100 unit/mL (3 mL) insulin pen 20 unit SUBCUT QAM Qty: 30 RF: 3 hydralazine 25 mg tablet 25 mg PO TID Qty: 90 RF: 3 dicyclomine 10 mg capsule 10 mg PO TID PRN (Reason: Abdominal Discomfort) Qty: 12 RF: 0 isosorbide mononitrate 60 mg tablet extended release 24 hr 60 mg PO QAM Qty: 30 RF: 3 pantoprazole 40 mg tablet,delayed release (DR/EC) 40 mg PO BID Qty: 60 RF: 3 nifedipine 60 mg tablet extended release 24hr 60 mg PO DAILY Qty: 30 RF: 3 spironolactone 25 mg tablet 25 mg PO QAM Qty: 90 RF: 3 Eliquis 5 mg (74 tabs) tablets,dose pack 5 - 10 mg PO BID Qty: 74 RF: 0 metoprolol succinate [Toprol XL] 25 mg Tablet Extended Release 24 Hr 25 mg PO QAM 30 Days Qty: 30 RF: 0 Discharge Orders: Discharge Order (Routine); Ordered 06/02/21 Ordered By: Placido Gibbons/Other Patient Handouts: Lifestyle Changes for Controlling GERD, GERD Dc, Hypertension Dc Admission Data Admit Date/Time: 05/29/21 19:21 Attending Provider: Placido Quezada Admit Provider: Rajesh Espinosa Primary Care Provider: Shay Hammond Other Providers: Rajesh Espinosa ; Kayode Del Cid ; Abdelrahman Vinson ; Danny Sandoval Other Interventions: Discharge Summary Assessment (RN) Last Done: 06/02/21 15:23 Coding Level of Care Code D/C DAY MANAGEMENT >30 MINS Diagnoses Gastritis K29.70 Chest pain R07.9 Chest pain type: unspecified Hypertensive emergency I16.1 Pericardial effusion I31.3 Chronic heart failure with preserved ejection fraction (HFpEF) I50.32 CKD (chronic kidney disease) N18.9 Chronic kidney disease stage: unspecified stage Uncontrolled diabetes mellitus, with long-term current use of insulin E11.65; Z79.4
== END 2021-06-02 16:37 | disposition home or self-care (01) | DRG 392 ==
LOC: ED 14:50 → 2S 19:21 → SUATTDRO 19:21 → 2S 20:28 → 3W 06-02 10:15
DX: I50.32 Chronic diastolic (congestive) heart failure; Z79.4 Long term (current) use of insulin; K31.9 Disease of stomach and duodenum, unspecified; K29.70 Gastritis, unspecified, without bleeding; Z87.891 Personal history of nicotine dependence; E66.9 Obesity, unspecified; Z79.899 Other long term (current) drug therapy; E11.9 Type 2 diabetes mellitus without complications; K21.9 Gastro-esophageal reflux disease without esophagitis; N17.9 Acute kidney failure, unspecified; Z79.82 Long term (current) use of aspirin; I13.0 Hypertensive heart and chronic kidney disease with heart failure and stage 1 through stage 4 chronic kidney disease, or unspecified chronic kidney disease; E78.5 Hyperlipidemia, unspecified; Z20.822 Contact with and (suspected) exposure to COVID-19; Z88.8 Allergy status to other drugs, medicaments and biological substances; N18.4 Chronic kidney disease, stage 4 (severe); Z95.5 Presence of coronary angioplasty implant and graft; R79.89 Other specified abnormal findings of blood chemistry; Z68.36 Body mass index [BMI] 36.0-36.9, adult; I25.2 Old myocardial infarction; Z95.818 Presence of other cardiac implants and grafts; R14.3 Flatulence; Z79.02 Long term (current) use of antithrombotics/antiplatelets; K25.9 Gastric ulcer, unspecified as acute or chronic, without hemorrhage or perforation; I25.10 Atherosclerotic heart disease of native coronary artery without angina pectoris; I51.7 Cardiomegaly; I31.3 Pericardial effusion (noninflammatory); I16.0 Hypertensive urgency; R07.89 Other chest pain

== ENCOUNTER 2021-06-12 14:01 | Inpatient (IN) ==
[2021-06-12] MEDS ORDERED: ACETAMINOPHEN 500 MG TAB PO STA (14:33)
--- NOTE | 2021-06-12 14:38 | Emergency Department Note ---
Impression & Plan DVT (deep venous thrombosis), Acute pain of left foot, Pedal edema, Leukocytosis ED Provider Note NAME: CAMPOS CRAWFORD AGE: 71 SEX: F : 1950 ARRIVES VIA: Ambulance INFORMANT: [Patient] ED PROVIDER(S): [Carlos A Johnson MD] CHIEF COMPLAINT: Foot pain HISTORY OF PRESENT ILLNESS: The patient is a 71-year-old female presents with 3 days of severe bilateral foot pain, the left is more so painful than the right. She has noticed some redness to the base of the left first toe. Her feet are both swollen. There has been no fever, no shortness of breath. No cough or cold or congestion. She denies any trauma to the ankle or feet. She has no history of gout. She states the left foot is so painful, she can not really walk. REVIEW OF SYSTEMS: See HPI for pertinent positives and negatives. A total of ten systems were reviewed and were otherwise negative. PMHx/PSHx: See Below SOCIAL HISTORY: See Below. PHYSICAL EXAM: GENERAL: Patient is in no acute distress. HEENT: No acute trauma, normocephalic atraumatic, mucous membranes moist, no nasal congestion, no scleral icterus. NECK: No stridor, no adenopathy, no meningismus, trachea is midline. LUNGS: Clear to auscultation bilaterally, no wheeze, no rhonchi, breath sounds equal. HEART: 2/6 systolic murmur, regular rate and rhythm. ABDOMEN: Soft, nontender, bowel sounds positive, no hernias, no peritonitis. EXTREMITIES: No cyanosis. Bilateral pedal edema. The left first toe is erythematous at its base and there is pain to move this MTP joint. There is no ascending erythema. There is no gross deformity to either ankle or foot. All toes bilaterally are warm without evidence for delayed capillary refill. Just touching her feet causes discomfort especially on the left. NEUROLOGIC: Oriented x 3, no acute motor or sensory deficits, no focal weakness. SKIN: No jaundice, no diaphoresis. DIFFERENTIAL DIAGNOSIS: Edema, neuropathy, fracture, dislocation, sprain, strain, contusion, gout, cellulitis, septic joint, DVT, among others. EMERGENCY DEPARTMENT COURSE/PROCEDURES: MEDICAL DECISION MAKING: There is a moderate leukocytosis at 17,000, this could be consistent with infection. Patient had a very mild anemia. There was a normal platelet count. Creatinine was high at 3.63, the patient has a history of renal insufficiency/failure. No concerning electrolyte abnormality in need of emergent correction. Lactic acid level was not elevated making sepsis less likely. Uric acid level was high at 11, this certainly makes the possibility of gout more likely. No worrisome liver enzyme elevation. The patient appeared to be in a euthyroid state. Covid test is pending. Lower extremity ultrasound shows a left lower leg DVT. There was no clot in the right leg. Left foot film showed some soft tissue swelling and a possible fracture. A CT of the left foot was done, there was no fracture. Right foot film showed no fractures. On exam, the patient had edema to both lower extremities. There was some erythema near the base of the left fifth toe. The patient was given IV ceftriaxone as empiric antibiotic therapy. She received oral Tylenol for pain. The patient has a DVT. She needs anticoagulation and was just in the hospital for gastritis. She is a risky anticoagulation. She has a leukocytosis with some erythema to her left foot. Gout is a consideration, cellulitis is a consideration. Given all her findings, I do think a hospital stay is warranted. The patient is adamant that she is unable to walk because of all her pain. I spoke to case management, the on-call hospitalist has been consulted. Past Med/Surg History Medical History CAD (coronary artery disease) Chronic heart failure with preserved ejection fraction (HFpEF) CKD (chronic kidney disease) Diverticulosis Elevated troponin History of stent insertion of renal artery 2014 Hyperlipidemia Hypertension Hypertensive emergency LVH (left ventricular hypertrophy) Lymphedema Renal artery stenosis Status post myocardial infarction Vulvovaginal candidiasis Surgical History H/O heart artery stent Family History Other Hypertension Social History Smoking Status: Never smoker Second Hand Exposure: No; Hx Alcohol Use: No Hx Substance Use: No Preferred Language: Salvadorean Communication Ability: Effective Supervisor Order Takers Required: No Beliefs That Will Affect Care: Spiritism Spiritism Beliefs: Eastern Quaker marital status: Single Current Living Situation: Family Current Living Situation Comment: lives with grandson How many Children do You have: 2 Feels Safe at Home: Yes Assistive Devices: Glasses Allergies Allergies Allergy/AdvReac Type Severity Reaction Status Date / Time heparin Allergy Hives Verified 06/12/21 16:36 insulin aspart Allergy Hives Verified 06/12/21 16:36 [From Novolog U-100 Insulin aspart] meperidine AdvReac Intermediate hallucinate Verified 06/12/21 16:36 s lisinopril AdvReac Mild COUGHING Verified 06/12/21 16:36 Home Meds Home Medications Medication Instructions Recorded Confirmed aspirin 81 mg tablet,delayed 81 mg PO QAM 03/26/21 06/12/21 release clopidogrel 75 mg tablet (Plavix) 75 mg PO QAM 03/26/21 06/12/21 furosemide 20 mg tablet 40 mg PO QAM 03/26/21 06/12/21 carvedilol 12.5 mg tablet 12.5 - 25 mg PO AMPM 05/26/21 06/12/21 insulin lispro 100 unit/mL 0 unit SUBCUT BIDM MDD 75 units 05/26/21 06/12/21 subcutaneous pen (Humalog KwikPen (U-100) Insulin) [id number] oil-vit D3 300 1 cap PO QAM 05/26/21 06/12/21 mg-1,000 mg-1,000 unit capsule (Fish Oil-Vit D3) Previous Rx's Medication Instructions Recorded calcitriol 0.25 mcg capsule 0.25 mcg PO 3XWK #30 cap 05/31/21 insulin glargine 100 unit/mL (3 20 unit SUBCUT QAM #30 ml 06/05/21 mL) subcutaneous pen (Lantus Solostar U-100 Insulin) dicyclomine 10 mg capsule 10 mg PO TID PRN #12 cap 06/07/21 famotidine 10 mg tablet 10 mg PO Q2D #14 tab 06/07/21 hydralazine 25 mg tablet 25 mg PO TID #90 tab 06/07/21 isosorbide mononitrate 60 mg 60 mg PO QAM #30 tab 06/07/21 tablet,extended release 24 hr nifedipine 60 mg tablet,extended 60 mg PO DAILY #30 tab 06/07/21 release 24 hr pantoprazole 40 mg tablet,delayed 40 mg PO BID #60 tab 06/07/21 release spironolactone 25 mg tablet 25 mg PO QAM #90 tab 06/07/21 Results & Data (ED) Vital Signs Vital Signs - 24 hr 06/12/21 14:10 06/12/21 17:00 Temperature 37.4 C Temperature Source Oral Pulse Rate 68 Pulse Rate [Right Finger] 69 Respiratory Rate 18 18 Respiratory Effort / Characteristics Non-Labored Spontaneous Respiratory Depth Normal Blood Pressure 158/62 H Blood Pressure [Left Arm] 98/41 L Blood Pressure Mean 94 Blood Pressure Mean [Left Arm] 60 Blood Pressure Position [Left Arm] Lying Pulse Oximetry 98 97 Oxygen Delivery Method Room Air Room Air Sepsis Recent Fever Within 48 Hours No Sepsis New/Unexplained Change in Mental Status No Sepsis Action Taken by Nursing No Action Required Home Medications Current Medication List: was personally reviewed by me Laboratory Data Attestation: I reviewed the patient's lab results. Result diagrams: 06/12/21 15:04 06/12/21 15:04 Lab Results 06/12/21 06/12/21 06/12/21 Range/Units 15:04 15:04 15:04 WBC 17.02 H (4.8-10.8) K/uL RBC 3.76 L (4.2-5.4) M/uL Hgb 10.9 L (12.0-16.0) g/dL Hct 33.1 L (37-47) % MCV 88.0 (80-100) fL MCH 29.0 (25-34) pg MCHC 32.9 (32-36) g/dL RDW Std Deviation 46.5 H (36.4-46.3) fL RDW Coeff of Ekaterina 14.4 (11.5-14.5) % Plt Count 322 (130-400) K/uL MPV 11.2 H (7.4-10.4) fL Immature Gran % (Auto) 1.0 % Neut % (Auto) 82.0 % Lymph % (Auto) 6.2 % [place] % (Auto) 9.5 % Eos % (Auto) 1.1 % Baso % (Auto) 0.2 % Neut # (Auto) 13.97 H (1.4-6.5) K/uL Lymph # (Auto) 1.05 L (1.2-3.4) K/uL [place] # (Auto) 1.62 H (0.11-0.59) K/uL Eos # (Auto) 0.18 (0-0.5) K/uL Baso # (Auto) 0.03 (0-0.2) K/uL Immature Gran # (Auto) 0.17 H (0.00-0.02) K/uL Sodium 138 (136-145) mmol/L Potassium 4.0 (3.5-5.1) mmol/L Chloride 109 H (98-107) mmol/L Carbon Dioxide 21 (21-32) mmol/L Anion Gap 8.0 (3-11) BUN 73 H (7-18) mg/dl Creatinine 3.63 H (0.6-1.2) mg/dl Est Cr Clr Drug Dosing 15.7 ml/min Est GFR ( Amer) 13.8 ml/min Est GFR (Non-Af Amer) 11.9 ml/min BUN/Creatinine Ratio 20.2 H (10-20) Glucose 212 H (70-99) mg/dl Lactate 1.0 (0.4-2.0) mmol/L Uric Acid 11.0 H (2.6-7.2) mg/dl Calcium 8.6 (8.5-10.1) mg/dl Magnesium 2.1 (1.8-2.4) mg/dl Total Bilirubin 0.4 (0.2-1) mg/dl AST 8 L (15-37) U/L ALT 11 L (12-78) U/L Alkaline Phosphatase 103 (45-117) U/L Total Creatine Kinase 35 (26-192) U/L Total Protein 7.4 (6.4-8.2) gm/dl Albumin 2.4 L (3.4-5.0) gm/dl Globulin 5.0 H (2.5-4.0) gm/dl Albumin/Globulin Ratio 0.5 L (0.9-2) TSH 0.832 (0.300-4.500) uIu/ml COVID-19 Eval Order 06/12/21 Range/Units 17:45 WBC (4.8-10.8) K/uL RBC (4.2-5.4) M/uL Hgb (12.0-16.0) g/dL Hct (37-47) % MCV (80-100) fL MCH (25-34) pg MCHC (32-36) g/dL RDW Std Deviation (36.4-46.3) fL RDW Coeff of Ekaterina (11.5-14.5) % Plt Count (130-400) K/uL MPV (7.4-10.4) fL Immature Gran % (Auto) % Neut % (Auto) % Lymph % (Auto) % [place] % (Auto) % Eos % (Auto) % Baso % (Auto) % Neut # (Auto) (1.4-6.5) K/uL Lymph # (Auto) (1.2-3.4) K/uL [place] # (Auto) (0.11-0.59) K/uL Eos # (Auto) (0-0.5) K/uL Baso # (Auto) (0-0.2) K/uL Immature Gran # (Auto) (0.00-0.02) K/uL Sodium (136-145) mmol/L Potassium (3.5-5.1) mmol/L Chloride (98-107) mmol/L Carbon Dioxide (21-32) mmol/L Anion Gap (3-11) BUN (7-18) mg/dl Creatinine (0.6-1.2) mg/dl Est Cr Clr Drug Dosing ml/min Est GFR ( Amer) ml/min Est GFR (Non-Af Amer) ml/min BUN/Creatinine Ratio (10-20) Glucose (70-99) mg/dl Lactate (0.4-2.0) mmol/L Uric Acid (2.6-7.2) mg/dl Calcium (8.5-10.1) mg/dl Magnesium (1.8-2.4) mg/dl Total Bilirubin (0.2-1) mg/dl AST (15-37) U/L ALT (12-78) U/L Alkaline Phosphatase (45-117) U/L Total Creatine Kinase (26-192) U/L Total Protein (6.4-8.2) gm/dl Albumin (3.4-5.0) gm/dl Globulin (2.5-4.0) gm/dl Albumin/Globulin Ratio (0.9-2) TSH (0.300-4.500) uIu/ml COVID-19 Eval Order Covid19 at [facility] Administered Medications Discontinued Medications Acetaminophen (Acetaminophen 500 Mg Tab) 1,000 mg PO NOW STA Stop: 06/12/21 14:34 Last Admin: 06/12/21 15:27 Dose: 1,000 mg Documented by: [id number] Ceftriaxone Sodium (Rocephin) 2,000 mg in 70 mls @ 140 mls/hr IV NOW STA Stop: 06/12/21 17:37 Last Admin: 06/12/21 17:44 Dose: 140 mls/hr Documented by: [id number] Imaging Data Radiologist's Impression: Foot X-Ray 06/12/21 14:33 XR foot LT min 3V routine HISTORY: 71 years-old Female pain, can not walk acute pain of the left foot COMPARISON: None TECHNIQUE: 3 views of the left foot FINDINGS: Mild diffuse soft tissue swelling. Mild multifocal osteoarthritis. Type I accessory navicular. No acute fracture or dislocation. Moderate sized enthesophytes of the calcaneus. Ill-defined linear lucency involves the fourth metatarsal neck. IMPRESSION: 1. Soft tissue swelling without definite acute fracture. 2. Transversely oriented linear lucency involving the fourth metatarsal neck is favored to be artifactual. A subtle acute nondisplaced fracture is considered less likely. ACT 112: Negative or not required by law. The above report was generated using voice recognition software. It may contain grammatical, syntax or spelling errors. Electronically signed by: Isac Fernandez M.D. 06/12/2021 3:13 PM Foot X-Ray 06/12/21 14:33 RIGHT FOOT 3 VIEWS CLINICAL HISTORY: Right foot pain. FINDINGS: 3 views of the right foot are compared to study dated 03/26/2021. The skeletal structures are osteopenic. No acute fracture is identified. There are tiny dorsal and plantar calcaneal enthesophytes. Mild osteoarthritic change is noted at the first metatarsophalangeal joint. Soft tissue edema seen throughout the forefoot, greatest dorsally. IMPRESSION: Soft tissue swelling with no fracture identified. Electronically signed by: Carlos A Nazario M.D. 06/12/2021 3:04 PM Venous Doppler Study 06/12/21 14:33 BILATERAL LOWER EXTREMITY VENOUS DOPPLER HISTORY: Bilateral leg swelling COMPARISON STUDY: None. FINDINGS: There is normal compressibility, flow, and augmentation within the the right lower extremity deep venous system. Nonocclusive thrombus within one of 2 left peroneal veins. The left common femoral, superficial femoral, popliteal, anterior tibial, posterior tibial veins are patent. IMPRESSION: 1. No DVT within the right lower extremity. 2. Nonocclusive deep vein thrombosis seen within one of 2 left peroneal veins. ACT 112: Negative or not required by law. Electronically signed by: Donovan Mendez M.D. 06/12/2021 4:[address] 06/12/21 15:[address] DOSE: 199.06 mGy.cm HISTORY: Left foot pain. Possible fourth metatarsal fracture on prior radiograph. TECHNIQUE: Multiaxial CT images of the left foot were performed and reformatted in the sagittal and coronal plane without the use of contrast. A dose lowering technique was utilized adhering to the principles of ALARA. COMPARISON: Left foot radiograph 06/12/2021. FINDINGS: Subcutaneous edema within the foot most pronounced along the dorsal lateral aspect. No acute fracture or dislocation. Specifically, the fourth metatarsal is intact. Mild degenerative changes within the left foot at the DIP and PIP joints. The flexor, extensor, and peroneal tendons appear intact. IMPRESSION: Subcutaneous edema within the left foot. No acute fractures. ACT 112: Negative or not required by law. Electronically signed by: Donovan Mendez M.D. 06/12/2021 4:37 PM Discharge Plan Visit Data Chief Complaint: Foot Injury/Pain ED Provider: Carlos A Johnson Discharge Problem: DVT (deep venous thrombosis), Acute pain of left foot, Pedal edema, Leukocytosis Patient Disposition: Admitted As Inpatient Condition: Fair Forms Stand Alone Forms: [facility] [employer] Prescriptions Prescriptions: No Action calcitriol 0.25 mcg capsule 0.25 mcg PO 3XWK Qty: 30 RF: 3 Lantus Solostar U-100 Insulin 100 unit/mL (3 mL) insulin pen 20 unit SUBCUT QAM Qty: 30 RF: 3 famotidine 10 mg tablet 10 mg PO Q2D Qty: 14 RF: 1 hydralazine 25 mg tablet 25 mg PO TID Qty: 90 RF: 3 dicyclomine 10 mg capsule 10 mg PO TID PRN (Reason: Abdominal Discomfort) Qty: 12 RF: 0 isosorbide mononitrate 60 mg tablet extended release 24 hr 60 mg PO QAM Qty: 30 RF: 3 pantoprazole 40 mg tablet,delayed release (DR/EC) 40 mg PO BID Qty: 60 RF: 3 nifedipine 60 mg tablet extended release 24hr 60 mg PO DAILY Qty: 30 RF: 3 spironolactone 25 mg tablet 25 mg PO QAM Qty: 90 RF: 3 aspirin 81 mg Tablet,Delayed Release (Dr/Ec) 81 mg PO QAM RF: 0 clopidogrel [Plavix] 75 mg tablet 75 mg PO QAM RF: 0 furosemide 20 mg tablet 40 mg PO QAM RF: 0 [id number]-epa-fish oil-vit D3 [Fish Oil-Vit D3] 300-1,000-1,000 mg-mg-unit Capsule 1 cap PO QAM RF: 0 carvedilol 12.5 mg tablet 12.5 - 25 mg PO AMPM RF: 0 insulin lispro [Humalog KwikPen Insulin] 100 unit/mL insulin pen 0 unit subcut BIDM MDD 75 units RF: 0 Referrals Referrals: Shay Hammond [Primary Care Provider] -
--- NOTE | 2021-06-12 15:05 | XRay Report ---
RIGHT FOOT 3 VIEWS CLINICAL HISTORY: Right foot pain. FINDINGS: 3 views of the right foot are compared to study dated 03/26/2021. The skeletal structures ar e osteopenic. No acute fracture is identified. There are tiny dorsal and plantar calcaneal enthesophy elida. Mild osteoarthritic change is noted at the first metatarsophalangeal joint. Soft tissue edema se en throughout the forefoot, greatest dorsally. IMPRESSION: Soft tissue swelling with no fracture identified. Electronically signed by: Carlos A Nazario M.D. 06/12/2021 3:04 PM
--- NOTE | 2021-06-12 15:14 | XRay Report ---
XR foot LT min 3V routine HISTORY: 71 years-old Female pain, can not walk acute pain of the left foot COMPARISON: None TECHNIQUE: 3 views of the left foot FINDINGS: Mild diffuse soft tissue swelling. Mild multifocal osteoarthritis. Type I accessory navicular. No acu te fracture or dislocation. Moderate sized enthesophytes of the calcaneus. Ill-defined linear lucency involves the fourth metatarsal neck. IMPRESSION: 1. Soft tissue swelling without definite acute fracture. 2. Transversely oriented linear lucency involving the fourth metatarsal neck is favored to be artifac tual. A subtle acute nondisplaced fracture is considered less likely. ACT 112: Negative or not required by law. The above report was generated using voice recognition software. It may contain grammatical, syntax o r spelling errors. Electronically signed by: Isac Fernandez M.D. 06/12/2021 3:13 PM
[2021-06-12 15:24] LABS: Basophils # (auto) 0.03 K/uL (0-0.2); Basophils % (auto) 0.2 %; Eosinophils # (auto) 0.18 K/uL (0-0.5); Eosinophils % (auto) 1.1 %; Hematocrit (blood only) 33.1 % (37-47); Hemoglobin 10.9 g/dL (12.0-16.0); Immature Granulocytes # (auto) 0.17 K/uL (0.00-0.02); Lymphocytes # (auto) 1.05 K/uL (1.2-3.4); Lymphocytes % (auto) 6.2 %; Mean Corpuscular Hgb Conc 32.9 g/dL (32-36); Mean Platelet Volume 11.2 fL (7.4-10.4); Monocytes # (auto) 1.62 K/uL (0.11-0.59); Monocytes % (auto) 9.5 %; Neutrophils # (auto) 13.97 K/uL (1.4-6.5); Platelet Count 322 K/uL (130-400); RDW Coefficient of Variation 14.4 % (11.5-14.5); RDW Standard Deviation 46.5 fL (36.4-46.3); Red Blood Count 3.76 M/uL (4.2-5.4); White Blood Count 17.02 K/uL (4.8-10.8)
[2021-06-12 15:42] LABS: Albumin Level 2.4 gm/dl (3.4-5.0); BUN Creatinine Ratio 20.2 (10-20); Calcium 8.6 mg/dl (8.5-10.1); Creatinine Clr Calc Pharmacy 15.7 ml/min; Est GFR (African American) 13.8 ml/min; Est GFR (Non-African American) 11.9 ml/min; Magnesium 2.1 mg/dl (1.8-2.4)
[2021-06-12 15:55] LABS: Albumin Globulin Ratio 0.5 (0.9-2); Bilirubin,Total 0.4 mg/dl (0.2-1); Thyroid Stimulating Hormone 0.832 uIu/ml (0.300-4.500); Total Protein 7.4 gm/dl (6.4-8.2)
--- NOTE | 2021-06-12 16:27 | Ultrasound Report ---
BILATERAL LOWER EXTREMITY VENOUS DOPPLER HISTORY: Bilateral leg swelling COMPARISON STUDY: None. FINDINGS: There is normal compressibility, flow, and augmentation within the the right lower extremit y deep venous system. Nonocclusive thrombus within one of 2 left peroneal veins. The left common femo ral, superficial femoral, popliteal, anterior tibial, posterior tibial veins are patent. IMPRESSION: 1. No DVT within the right lower extremity. 2. Nonocclusive deep vein thrombosis seen within one of 2 left peroneal veins. ACT 112: Negative or not required by law. Electronically signed by: Donovan Mendez M.D. 06/12/2021 4:26 PM
--- NOTE | 2021-06-12 16:38 | CT Scan Report ---
LEFT FOOT CT CT DOSE: 199.06 mGy.cm HISTORY: Left foot pain. Possible fourth metatarsal fracture on prior radiograph. TECHNIQUE: Multiaxial CT images of the left foot were performed and reformatted in the sagittal and c oronal plane without the use of contrast. A dose lowering technique was utilized adhering to the roger Rain. COMPARISON: Left foot radiograph 06/12/2021. FINDINGS: Subcutaneous edema within the foot most pronounced along the dorsal lateral aspect. No acut e fracture or dislocation. Specifically, the fourth metatarsal is intact. Mild degenerative changes w ithin the left foot at the DIP and PIP joints. The flexor, extensor, and peroneal tendons appear inta ct. IMPRESSION: Subcutaneous edema within the left foot. No acute fractures. ACT 112: Negative or not required by law. Electronically signed by: Donovan Mendez M.D. 06/12/2021 4:37 PM
[2021-06-12] MEDS ORDERED: cefTRIAXone SODIUM 2,000 MG/70 ML BAG IV STA (17:08)
--- NOTE | 2021-06-12 19:00 | History & Physical Report ---
Date of Service June 12, 2021 History of Present Illness Primary Care Provider: Shay Hammond Allergies Allergy/AdvReac Type Severity Reaction Status Date / Time heparin Allergy Hives Verified 06/12/21 16:36 insulin aspart Allergy Hives Verified 06/12/21 16:36 [From Novolog U-100 Insulin aspart] meperidine AdvReac Intermediate hallucinate Verified 06/12/21 16:36 s lisinopril AdvReac Mild COUGHING Verified 06/12/21 16:36 Home Medications Medication Instructions Recorded Confirmed Type aspirin 81 mg tablet,delayed 81 mg PO QAM 03/26/21 06/12/21 History release clopidogrel 75 mg tablet (Plavix) 75 mg PO QAM 03/26/21 06/12/21 History furosemide 20 mg tablet 40 mg PO QAM 03/26/21 06/12/21 History carvedilol 12.5 mg tablet 12.5 - 25 mg PO AMPM 05/26/21 06/12/21 History insulin lispro 100 unit/mL 0 unit SUBCUT BIDM MDD 75 units 05/26/21 06/12/21 History subcutaneous pen (Humalog KwikPen (U-100) Insulin) [id number]-fish oil-vit D3 300 1 cap PO QAM 05/26/21 06/12/21 History mg-1,000 mg-1,000 unit capsule (Fish Oil-Vit D3) calcitriol 0.25 mcg capsule 0.25 mcg PO 3XWK #30 cap 05/31/21 06/12/21 Rx insulin glargine 100 unit/mL (3 20 unit SUBCUT QAM #30 ml 06/05/21 06/12/21 Rx mL) subcutaneous pen (Lantus Solostar U-100 Insulin) dicyclomine 10 mg capsule 10 mg PO TID PRN #12 cap 06/07/21 06/12/21 Rx famotidine 10 mg tablet 10 mg PO Q2D #14 tab 06/07/21 06/12/21 Rx hydralazine 25 mg tablet 25 mg PO TID #90 tab 06/07/21 06/12/21 Rx isosorbide mononitrate 60 mg 60 mg PO QAM #30 tab 06/07/21 06/12/21 Rx tablet,extended release 24 hr nifedipine 60 mg tablet,extended 60 mg PO DAILY #30 tab 06/07/21 06/12/21 Rx release 24 hr pantoprazole 40 mg tablet,delayed 40 mg PO BID #60 tab 06/07/21 06/12/21 Rx release spironolactone 25 mg tablet 25 mg PO QAM #90 tab 06/07/21 06/12/21 Rx Past Med/Surg History Medical History CAD (coronary artery disease) Chronic heart failure with preserved ejection fraction (HFpEF) CKD (chronic kidney disease) Diverticulosis Elevated troponin History of stent insertion of renal artery 2013 Hyperlipidemia Hypertension Hypertensive emergency LVH (left ventricular hypertrophy) Lymphedema Renal artery stenosis Status post myocardial infarction Vulvovaginal candidiasis Surgical History H/O heart artery stent Family History Other Hypertension Social History Smoking Status: Never smoker Second Hand Exposure: No; Hx Alcohol Use: No Hx Substance Use: No Preferred Language: South Korean Communication Ability: Effective Route Service Manager Required: No Beliefs That Will Affect Care: Yarsanism Yarsanism Beliefs: Eastern Anglican marital status: Single Current Living Situation: Family Current Living Situation Comment: lives with grandson How many Children do You have: 2 Feels Safe at Home: Yes Assistive Devices: Glasses Results & Data Results & Data ([facility]) Vital Signs (Past 12 Hours) Vital Signs Temp Pulse Pulse Resp BP BP Pulse Ox 06/12/21 17:00 69 18 98/41 L 97 06/12/21 14:10 37.4 C 68 18 158/62 H 98 Code Status & VTE Plan VTE Prophylaxis Plan VTE Prophylaxis will be ordered: Yes Supervising Physician Co-Signing Physician Notes Discussed with NEO, agree with her note above. Patient here for foot pain, consideration to cellulitis versus gout versus another cause. In addition, patient was found to have a nonocclusive thrombus in the left peroneal vein. Plan for patient to come in for treatment of cellulitis, we are going to continue Rocephin to start the emergency room. We are also going to try a dose of colchicine to see if this improves patient's symptoms. Patient has a stated allergy to heparin. As she is at high risk of bleeds and she has on a dual antiplatelet therapy and had a previous history of GI ulceration, will hold off on full dose anticoagulation. Continue to follow a left portal vein thrombosis, if it does propagate we may need to readdress this prior to discharge. Continue medications for gastritis. Continue to monitor hypertension, blood pressure is acceptable today at 160/59. PG Care Time/CCT Total # of Minutes Spent Total Time Spent with Patient: Total time spent is greater than 50% in coordination of care (as documented) at patient's floor/unit and/or counseling p atient: Coding Level of Care Code 04648 Initial Inpt Care Lvl 3
--- NOTE | 2021-06-12 20:46 | History & Physical Report ---
Date of Service June 12, 2021 Assessment & Plan (1) Acute pain of left foot: Plan: - DDx - gout vs cellulitis vs DVT vs swelling - Reports some relief with Tylenol and will continue PRN - Colchicine 0.6 mg x 1 dose only given renal function and assess improvement - uric acid is elevated however is a CKD patient; unlikely to aspirate that area - Will also continue Rocephin 1 g daily for possibility of infection - WBC is chronic however continues to trend up which could be infection vs inflammatory -- There are mild breaks in the skin of that foot at possibly a cause for cellulitis? (2) DVT (deep venous thrombosis): Plan: - Imaging does not reveal fracture - U/S reveals a non-occlussive DVT in on of the two left peroneal veins -- Patient is currently on Plavix and ASA; recent admission for gastric ulcers however these did not show any signs of bleeding and patient reports no melena/bloody stools -- May be high risk of bleeding given co-morbidities - given the location in the peroneal vein it can allow for monitoring with repeat U/S in 2 days to assess changes or resolution vs considering chemical anticoagulation (3) CKD (chronic kidney disease), stage IV: Plan: - Stable; Baseline Cr 3.5-3.9 - Follows with Dr. Sandoval - will continue renal dosing and avoid nephrotoxins - Calcitriol mcg MWF (4) Pericardial effusion: Plan: - Stable - evaluated on previous admission with echocardiogram (5) Hyperlipidemia: (6) Chronic heart failure with preserved ejection fraction (HFpEF): Plan: - EF 65-70% - Continue Carvedilol 12.5 mg AM and 25 mg PM; Lasix 40 mg daily; Isosorbide mo nonitrate 60 mg daily; Spironolactone 25 mg daily (7) CAD (coronary artery disease): Plan: - Continue ASA 81 mg daily and Plavix 75 mg daily (8) Hypertension: Plan: - Chronically high - continue home medications - Carvedilol; Hydralazine; Nifedipine - H/O YANDEL with stent and CKD contributing to BP control issues (9) Gastric ulcer: Plan: - Recently evaluated by EGD - no evidence of active or recent bleeding - Continue famotidine 10 mg Q2D; Pantoprazole 40 mg BID (10) Type 2 diabetes mellitus: Plan: - Continue insulin regimen and consult glycemic control History of Present Illness Chief Complaint: Bilateral Foot Pain x 3 days Primary Care Provider: Shay Hammond Ms. Mcnulty is a 71 y/o female with PMHx of CAD S/P [place] with Stent, Diastolic CHF, CKD Stage IV, YANDEL S/P Stent, HLD, HTN, T2DM, and Pericardial Effusion who presents to the ED c/o bilateral foot pain x 3 days. States both feet are bothersome however the L is greater than R. She notes she did hit her L pinky toe prior to this pain. Pain has been gradually increasing over the course of the past 3 days and now feels she cannot walk on it. She also noted the redness at the base of her great toe that started the same time as the pain. She reports the edema of her feet is not normal for her. She does report one episode of chills about 2 days ago. She does take diuretics and reports taking her medicati ons today. Allergies Allergy/AdvReac Type Severity Reaction Status Date / Time heparin Allergy Hives Verified 06/12/21 16:36 insulin aspart Allergy Hives Verified 06/12/21 16:36 [From Novolog U-100 Insulin aspart] meperidine AdvReac Intermediate hallucinate Verified 06/12/21 16:36 s lisinopril AdvReac Mild COUGHING Verified 06/12/21 16:36 Home Medications Medication Instructions Recorded Confirmed Type aspirin 81 mg tablet,delayed 81 mg PO QAM 03/26/21 06/12/21 History release clopidogrel 75 mg tablet (Plavix) 75 mg PO QAM 03/26/21 06/12/21 History furosemide 20 mg tablet 40 mg PO QAM 03/26/21 06/12/21 History carvedilol 12.5 mg tablet 12.5 - 25 mg PO AMPM 05/26/21 06/12/21 History insulin lispro 100 unit/mL 0 unit SUBCUT BIDM MDD 75 units 05/26/21 06/12/21 History subcutaneous pen (Humalog KwikPen (U-100) Insulin) [id number] oil-vit D3 300 1 cap PO QAM 05/26/21 06/12/21 History mg-1,000 mg-1,000 unit capsule (Fish Oil-Vit D3) calcitriol 0.25 mcg capsule 0.25 mcg PO 3XWK #30 cap 05/31/21 06/12/21 Rx insulin glargine 100 unit/mL (3 20 unit SUBCUT QAM #30 ml 06/05/21 06/12/21 Rx mL) subcutaneous pen (Lantus Solostar U-100 Insulin) dicyclomine 10 mg capsule 10 mg PO TID PRN #12 cap 06/07/21 06/12/21 Rx famotidine 10 mg tablet 10 mg PO Q2D #14 tab 06/07/21 06/12/21 Rx hydralazine 25 mg tablet 25 mg PO TID #90 tab 06/07/21 06/12/21 Rx isosorbide mononitrate 60 mg 60 mg PO QAM #30 tab 06/07/21 06/12/21 Rx tablet,extended release 24 hr nifedipine 60 mg tablet,extended 60 mg PO DAILY #30 tab 06/07/21 06/12/21 Rx release 24 hr pantoprazole 40 mg tablet,delayed 40 mg PO BID #60 tab 06/07/21 06/12/21 Rx release spironolactone 25 mg tablet 25 mg PO QAM #90 tab 06/07/21 06/12/21 Rx Past Med/Surg History Medical History CAD (coronary artery disease) Chronic heart failure with preserved ejection fraction (HFpEF) CKD (chronic kidney disease) Diverticulosis Elevated troponin History of stent insertion of renal artery 2013 Hyperlipidemia Hypertension Hypertensive emergency LVH (left ventricular hypertrophy) Lymphedema Renal artery stenosis Status post myocardial infarction Vulvovaginal candidiasis Surgical History H/O heart artery stent Family History Other Hypertension Social History Smoking Status: Never smoker Second Hand Exposure: No; Hx Alcohol Use: No Hx Substance Use: No Preferred Language: Luxem[place]ish Communication Ability: Effective 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 Beliefs That Will Affect Care: Worship Worship Beliefs: [place] marital status: Single Current Living Situation: Family Current Living Situation Comment: lives with grandson How many Children do You have: 2 Feels Safe at Home: Yes Assistive Devices: Glasses Review of Systems Constitutional: + chills (one episode two days ago - currently resolved); no fever Eyes: no worsening vision Ear, Nose, Mouth, Throat: no nasal congestion and no sore throat Respiratory: no cough and no dyspnea Cardiovascular: + edema; no chest pain, no dyspnea and no orthopnea Gastrointestinal: no abdominal pain, no nausea, no vomiting, no constipation, no diarrhea/loose stools, no blood in stools and no melena Genitourinary: no dysuria Musculoskeletal: + joint pain (L great toe) Integumentary: + erythema Neurologic: no tingling and no numbness Physical Exam Constitutional: WD/WN, vitals as above Eyes: + anicteric sclerae; no conjunctival abnormality ENMT: external ear and nose normal, oropharynx normal Neck: trachea midline, no thyromegaly Respiratory: normal respiratory effort, lungs clear to auscultation Cardiovascular: Rate/Rhythm: regular rate and regular rhythm Heart Sounds: normal S1, normal S2 and + murmur Vessels: no JVD Extremities: + pedal edema Gastrointestinal (Abdomen): normal bowel sounds, soft, nontender, no hepatosplenomegaly Skin: mild erythema around the base and medial aspect of L great toe; mild warmth to touch; tenderness to palp Neurologic: moves all extremities Psychiatric: A+Ox3, euthymic affect Results & Data Results & Data ([facility]) Vital Signs (Past 12 Hours) Vital Signs Temp Pulse Pulse Resp BP BP Pulse Ox 06/12/21 19:30 64 18 134/54 L 94 06/12/21 19:00 63 18 116/59 L 95 06/12/21 17:00 69 18 98/41 L 97 06/12/21 14:10 37.4 C 68 18 158/62 H 98 Code Status & VTE Plan VTE Prophylaxis Plan VTE Prophylaxis will be ordered: Yes Supervising Physician Co-Signing Physician Notes Discussed with NEO, agree with her note above. Patient here for foot pain, consideration to cellulitis versus gout versus another cause. In addition, patient was found to have a nonocclusive thrombus in the left peroneal vein. Plan for patient to come in for treatment of cellulitis, we are going to continue Rocephin to start the emergency room. We are also going to try a dose of colchicine to see if this improves patient's symptoms. Patient has a stated allergy to heparin. As she is at high risk of bleeds and she has on a dual antiplatelet therapy and had a previous history of GI ulceration, will hold off on full dose anticoagulation. Continue to follow a left portal vein thrombosis, if it does propagate we may need to readdress this prior to discharge. Continue medications for gastritis. Continue to monitor hypertension, blood pressure is acceptable today at 160/59. PG Care Time/CCT Total # of Minutes Spent Total Time Spent with Patient: Total time spent is greater than 50% in coordination of care (as documented) at patient's floor/unit and/or counseling patient: Coding Level of Care Code 03041 Initial Inpt Care Lvl 3 Diagnoses DVT (deep venous thrombosis) I82.452 Affected thrombotic vein of extremity: peroneal Chronicity: acute DVT location: lower extremity Laterality: left CKD (chronic kidney disease), stage IV N18.4 Pericardial effusion I31.3 Hyperlipidemia E78.5 Hyperlipidemia type: unspecified Chronic heart failure with preserved ejection fraction (HFpEF) I50.32 CAD (coronary artery disease) I25.10 Coronary Disease-Associated Artery/Lesion type: [place] artery [place] vs. transplanted heart: [place] heart Associated angina: without angina Hypertension I10 Hypertension type: essential hypertension Gastric ulcer K25.9 Acute pain of left foot M79.672 Type 2 diabetes mellitus E11.9 (1) DVT (deep venous thrombosis) Affected thrombotic vein of extremity: peroneal Chronicity: acute DVT location: lower extremity Laterality: left Qualified Code(s): I82.452 - Acute embolism and thrombosis of left peroneal vein (2) Hyperlipidemia Hyperlipidemia type: unspecified Qualified Code(s): E78.5 - Hyperlipidemia, unspecified (3) CAD (coronary artery disease) Coronary Disease-Associated Artery/Lesion type: [place] artery [place] vs. transplanted heart: [place] heart Associated angina: without angina Qualified Code(s): I25.10 - Atherosclerotic heart disease of [place] coronary artery without angina pectoris (4) Hypertension Hypertension type: essential hypertension Qualified Code(s): I10 - Essential (primary) hypertension
[2021-06-12] MEDS ORDERED: cefTRIAXone SODIUM 1,000 MG in DEXTROSE 5% 50 ML IV SCH (21:26)
[2021-06-12] MEDS ORDERED: POLYETHYLENE (MIRALAX) 17 GM PACK PO PRN (21:26)
[2021-06-12] MEDS ORDERED: MAGNESIUM HYDROXIDE SUSP 30 ML UDC PO PRN (21:26)
[2021-06-12] MEDS ORDERED: DICYCLOMINE HCL 10 MG CAP PO PRN (21:26)
[2021-06-12] MEDS ORDERED: PHARMACY GLYCEMIC MGMT CONSULT PRN (21:26)
[2021-06-12] MEDS ORDERED: ALUMINUM/MAGNESIUM SUSP 30 ML UDC PO PRN (21:26)
[2021-06-12] MEDS ORDERED: GLUCOSE 10 TABS/TUBE PO PRN (21:26)
[2021-06-12] MEDS ORDERED: GLUCAGON FOR INJ 1 MG VIAL SQ PRN (21:26)
[2021-06-12] MEDS ORDERED: CARBOHYDRATES FOR HYPOGLYCEMIA PO PRN (21:26)
[2021-06-12] MEDS ORDERED: GLUCOSE 40% GEL 15 GM TUBE PO PRN (21:26)
[2021-06-12] MEDS ORDERED: DEXTROSE 50% 50 ML SYRINGE IV PRN (21:26)
[2021-06-12] MEDS ORDERED: COLCHICINE 0.6 MG TAB PO ONE (21:26)
[2021-06-12] MEDS: hydrALAZINE HCL 25 MG TAB PO SCH (22:14)
[2021-06-12] MEDS: PANTOprazole 40 MG TAB PO SCH (22:14)
[2021-06-13] MEDS ORDERED: INSULIN ASPART 100 UNITS/ML 3 ML PEN SC SCH
[2021-06-13] MEDS: INSULIN HUMAN LISPRO (humaLOG) 100 UNITS/ML VIAL SC SCH ×5 (00:24→21:11)
[2021-06-13] MEDS: carvediloL 25 MG TAB PO SCH ×3 (00:46→21:10)
[2021-06-13] MEDS ORDERED: INSULIN HUMAN LISPRO (humaLOG) 100 UNITS/ML VIAL SC SCH (04:00)
[2021-06-13] MEDS ORDERED: NON-FORMULARY MEDICATION (Insulin Lispro [Humalog Kwikpen Insulin] 100 unit/mL insulin pen SQ SCH (08:00)
[2021-06-13 08:51] LABS: Hemoglobin 10.5 g/dL (12.0-16.0); Mean Corpuscular Hemoglobin 28.5 pg (25-34); Mean Corpuscular Hgb Conc 32.8 g/dL (32-36); Platelet Count 319 K/uL (130-400); RDW Coefficient of Variation 14.4 % (11.5-14.5); RDW Standard Deviation 46.1 fL (36.4-46.3); Red Blood Count 3.68 M/uL (4.2-5.4); White Blood Count 12.43 K/uL (4.8-10.8)
[2021-06-13] MEDS ORDERED: ACETAMINOPHEN 500 MG TAB PO ONE (09:14)
[2021-06-13 09:23] LABS: BUN Creatinine Ratio 19.8 (10-20); Creatinine Clr Calc Pharmacy 15.6 ml/min; Est GFR (Non-African American) 12.1 ml/min; Potassium 3.9 mmol/L (3.5-5.1)
[2021-06-13] MEDS: hydrALAZINE HCL 25 MG TAB PO SCH ×3 (10:05→21:10)
[2021-06-13] MEDS: carvediloL 12.5 MG TAB PO SCH (10:05)
[2021-06-13] MEDS: PANTOprazole 40 MG TAB PO SCH ×2 (10:06→21:10)
[2021-06-13] MEDS: ASPIRIN 81 MG ECTAB PO SCH (10:06)
[2021-06-13] MEDS: ISOSORBIDE MONO EXTENDED REL 60 MG TABCR PO SCH (10:06)
[2021-06-13] MEDS: FUROSEMIDE 40 MG TAB PO SCH (10:06)
[2021-06-13] MEDS: CLOPIDOGREL BISULFATE 75 MG TAB PO SCH (10:06)
[2021-06-13] MEDS: INSULIN GLARGINE SOLOSTAR 100 UNITS/ML 3 ML PEN SQ SCH (10:07)
[2021-06-13] MEDS: SPIRONOLACTONE 25 MG TAB PO SCH (10:07)
[2021-06-13] MEDS: NIFEdipine EXTENDED REL 30 MG TABCR PO SCH (10:07)
[2021-06-13] MEDS: OMEGA-3 (PURIFIED FISH OIL) 1 GM CAP PO SCH (10:07)
[2021-06-13] MEDS ORDERED: FUROSEMIDE 20 MG TAB PO ONE (12:22)
--- NOTE | 2021-06-13 16:26 | Pharmacy Report ---
Pharmacy Glycemic Short Note 2 - Date of Service June 13, 2021 - Glycemic Short BSG Results (Last 24 hours): 06/13/21 06/13/21 06/13/21 00:22 03:52 08:09 Glucose POC Glucose 207 H 152 H 130 H 06/13/21 06/13/21 08:34 12:04 Glucose 128 H POC Glucose 193 H OUTPATIENT ANTIDIABETIC REGIMEN: * Lantus 20 units qAM * Humalog 10 units TIDM * A1c 7.4% 05/27/21 ASSESSMENT: * Patient started on home lantus, fasting this morning within goal range will continue * Novolog started at weight based stress of 2, will tighten if needed PLAN FOR INPATIENT GLYCEMIC CONTROL: * Hold outpatient oral diabetes medications * Basal insulin * Lantus 20 units SQ QAM * Bolus insulin * NovoLog per scale ACHS or Q6hrs while NPO * Goal Range: Low 110 mg/dL - High 140 mg/dL * Correction Factor: 25 mg/dL/unit * Nutritional / Prandial insulin per carb ratio of 1 unit per 8 grams CHO consumed
[2021-06-13] MEDS: cefTRIAXone SODIUM 2,000 MG in DEXTROSE 5% 50 ML IV SCH (18:33)
--- NOTE | 2021-06-13 19:17 | Hospitalist Progress Note ---
Date of Service June 13, 2021 Assessment & Plan (1) Acute pain of left foot: Plan: - DDx - gout vs cellulitis vs DVT vs swelling - Reports some relief with Tylenol and will continue PRN - Colchicine 0.6 mg x 1 dose only given renal function and assess improvement - uric acid is elevated however is a CKD patient; unlikely to aspirate that area - Continue Rocephin 1 g daily for possibility of infection - WBC is chronically elevated but now is starting to decrease since initiation of Abx -- There are mild breaks in the skin of that foot at possibly a cause for cellulitis? - Does take diuretics - will increase Lasix as needed for swelling; additional dosage given this afternoon and will monitor (2) DVT (deep venous thrombosis): Plan: - Imaging does not reveal fracture - U/S reveals a non-occlussive DVT in on of the two left peroneal veins -- Patient is currently on Plavix and ASA; recent admission for gastric ulcers however these did not show any signs of bleeding and patient reports no melena/bloody stools -- May be high risk of bleeding given co-morbidities - given the location in the peroneal vein it can allow for monitoring with repeat U/S in 2 days to assess changes or resolution vs considering chemical anticoagulation - Will dicuss with cardiology to consider removing one anti-platelet in favor of anticoagulation (3) CKD (chronic kidney disease), stage IV: Plan: - Stable; Baseline Cr 3.5-3.9 - Follows with Dr. Sandoval - will continue renal dosing and avoid nephrotoxins - Calcitriol MWF (4) Pericardial effusion: Plan: - Stable - evaluated on previous admission with echocardiogram (5) Chronic heart failure with preserved ejection fraction (HFpEF): Plan: - EF 65-70% - Continue Carvedilol 12.5 mg AM and 25 mg PM; Lasix 40 mg daily; Isosorbide mononitrate 60 mg daily; Spironolactone 25 mg daily - Overall appears euvolemic but having pedal edema that worsens with dangling legs - will add additional dose of Lasix as she does utilize PRN dosing at home and monitor (6) CAD (coronary artery disease): Plan: - Stent placement in 2011; Stable - Continue ASA 81 mg daily and Plavix 75 mg daily - to discuss regimen with cardiology (7) Hypertension: Plan: - Chronically high but improved - continue home medications - Carvedilol; Hydr alazine; Nifedipine - H/O YANDEL with stent and CKD contributing to BP control issues (8) Gastric ulcer: Plan: - Recently evaluated by EGD - no evidence of active or recent bleeding - Continue famotidine 10 mg Q2D; Pantoprazole 40 mg BID (9) Type 2 diabetes mellitus: Plan: - Continue insulin regimen and consult glycemic control Admission and Anticipated Discharge Date Admission Date: June 12, 2021 Subjective Reports her pain in her feet are improving today. Having increased pedal edema after sitting in the chair all morning with legs dangly. Erythema of base of the L toe slightly improved. Verbalizes no other complaints at this time Review of Systems Constitutional: no fever and no chills Ear, Nose, Mouth, Throat: no nasal congestion and no sore throat Respiratory: no cough and no dyspnea Cardiovascular: + edema; no chest pain, no dyspnea and no orthopnea Gastrointestinal: no abdominal pain, no nausea, no vomiting, no constipation, no diarrhea/loose stools, no blood in stools and no melena Genitourinary: no dysuria Musculoskeletal: + joint pain (L great toe - improving) Integumentary: + erythema (reducing) Neurologic: no tingling and no numbness Physical Exam Constitutional: WD/WN, vitals as above Eyes: + anicteric sclerae; no conjunctival abnormality Neck: trachea midline, no thyromegaly Respiratory: normal respiratory effort, lungs clear to auscultation Cardiovascular: Rate/Rhythm: regular rate and regular rhythm Heart Sounds: normal S1, normal S2 and + murmur Vessels: no JVD Extremities: + pedal e mic Gastrointestinal (Abdomen): normal bowel sounds, soft, nontender, no hepatosplenomegaly Skin: reducing erythema to the L base of the great toe; not warm to touch; mildy tender to palp Neurologic: moves all extremities Psychiatric: A+Ox3, euthymic affect Results & Data Results & Data ([facility]) Vital Signs (Past 12 Hours) Vital Signs Temp Pulse Resp BP Pulse Ox 06/13/21 15:46 36.6 C 65 16 127/71 96 06/13/21 09:00 37.0 C 66 16 120/65 92 PG Care Time/CCT Total # of Minutes Spent Total Time Spent with Patient: Total time spent is greater than 50% in coordination of care (as documented) at patient's floor/unit and/or counseling patient: Coding Level of Care Code 05196 Subseq Hosp Care Lvl 2 Diagnoses Acute pain of left foot M79.672 DVT (deep venous thrombosis) I82.452 Affected thrombotic vein of extremity: peroneal Chronicity: acute DVT location: lower extremity Laterality: left CKD (chronic kidney disease), stage IV N18.4 Pericardial effusion I31.3 Chronic heart failure with preserved ejection fraction (HFpEF) I50.32 CAD (coronary artery disease) I25.10 Coronary Disease-Associated Artery/Lesion type: [place] artery [place] vs. transplanted heart: [place] heart Associated angina: without angina Hypertension I10 Hypertension type: essential hypertension Gastric ulcer K25.9 Type 2 diabetes mellitus E11.9 (1) DVT (deep venous thrombosis) Affected thrombotic vein of extremity: peroneal Chronicity: acute DVT location: lower extremity Laterality: left Qualified Code(s): I82.452 - Acute embolism and thrombosis of left peroneal vein (2) CAD (coronary artery disease) Coronary Disease-Associated Artery/Lesion type: [place] artery [place] vs. transplanted heart: [place] heart Associated angina: without angina Qualified Code(s): I25.10 - Atherosclerotic heart disease of [place] coronary artery without angina pectoris (3) Hypertension Hypertension type: essential hypertension Qualified Code(s): I10 - Essential (primary) hypertension
[2021-06-13] MEDS: ACETAMINOPHEN 325 MG TAB PO PRN (23:23)
[2021-06-14] MEDS: NIFEdipine EXTENDED REL 30 MG TABCR PO SCH (09:08)
[2021-06-14] MEDS: CALCITRIOL 0.25 MCG CAPSULE PO SCH (09:08)
[2021-06-14] MEDS: carvediloL 12.5 MG TAB PO SCH (09:09)
[2021-06-14] MEDS: FAMOTIDINE 10 MG TABLET PO SCH (09:09)
[2021-06-14] MEDS: ISOSORBIDE MONO EXTENDED REL 60 MG TABCR PO SCH (09:09)
[2021-06-14] MEDS: OMEGA-3 (PURIFIED FISH OIL) 1 GM CAP PO SCH (09:09)
[2021-06-14] MEDS: hydrALAZINE HCL 25 MG TAB PO SCH ×3 (09:10→22:30)
[2021-06-14] MEDS: SPIRONOLACTONE 25 MG TAB PO SCH (09:10)
[2021-06-14] MEDS: CLOPIDOGREL BISULFATE 75 MG TAB PO SCH (09:10)
[2021-06-14] MEDS: PANTOprazole 40 MG TAB PO SCH ×2 (09:10→22:30)
[2021-06-14] MEDS: FUROSEMIDE 40 MG TAB PO SCH (09:10)
[2021-06-14] MEDS: ASPIRIN 81 MG ECTAB PO SCH (09:10)
[2021-06-14] MEDS: INSULIN GLARGINE SOLOSTAR 100 UNITS/ML 3 ML PEN SQ SCH (09:15)
[2021-06-14] MEDS: INSULIN HUMAN LISPRO (humaLOG) 100 UNITS/ML VIAL SC SCH ×4 (09:15→21:30)
--- NOTE | 2021-06-14 14:13 | Ultrasound Report ---
US venous doppler LE LT HISTORY: 71 years-old Female Assess for peroneal thrombus propagation acute pain and swelling of the left lower leg COMPARISON: None TECHNIQUE: Multiple real-time sonographic images of the left lower extremity deep venous structures w ere obtained assessing grayscale appearance, color and spectral flow FINDINGS: Occlusive deep venous thrombus involves one of the duplicated peroneal veins which is long segment ex tending proximal to distal. Otherwise unremarkable exam. IMPRESSION: Left lower extremity deep venous thrombus as above. ACT 112: Negative or not required by law. The above report was generated using voice recognition software. It may contain grammatical, syntax o r spelling errors. Electronically signed by: Isac Fernandez M.D. 06/14/2021 2:12 PM
[2021-06-14] MEDS ORDERED: FUROSEMIDE 40 MG TAB PO STA (16:00)
[2021-06-14] MEDS: cefTRIAXone SODIUM 2,000 MG in DEXTROSE 5% 50 ML IV SCH (18:15)
[2021-06-14] MEDS: APIXABAN 5 MG TABLET PO SCH (18:22)
--- NOTE | 2021-06-14 19:23 | Hospitalist Progress Note ---
Date of Service June 14, 2021 Assessment & Plan (1) Acute pain of left foot: Plan: - Pain nearly resolved of the toe and erythema almost completely gone - DDx - gout vs cellulitis vs DVT vs swelling - Reports some relief with Tylenol and will continue PRN - Colchicine 0.6 mg x 1 dose only given renal function and assess improvement - uric acid is elevated however is a CKD patient; unlikely to aspirate that area - Continue Rocephin 1 g daily for possibility of infection - WBC is chronically elevated but now is starting to decrease since initiation of Abx -- There are mild breaks in the skin of that foot at possibly a cause for cellulitis? - Does take diuretics - will increase Lasix as needed for swelling; additional dosage given this afternoon and will monitor (2) DVT (deep venous thrombosis): Plan: - Imaging does not reveal fracture - Initial U/S reveals a non-occlussive DVT in on of the two left peroneal veins -- Patient is currently on Plavix and ASA; recent admission for gastric ulcers however these did not show any signs of bleeding and patient reports no melena/bloody stools -- Initial consideration for routine US to assess - repeat U/S on May reveals the DVT is now occlusive and likely going to further propagate - Discussed with cardiology and will hold ASA while utilizing Eliquis - Eliquis 10 mg BID x 7 days then 5 mg BID x 3 months - will need to monitor for bleeding/renal function (3) CKD (chronic kidney disease), stage IV: Plan: - Stable; Baseline Cr 3.5-3.9 - Follows with Dr. Sandoval - will continue renal dosing and avoid nephrotoxins - Calcitriol MWF - AM labs (4) Pericardial effusion: Plan: - Stable - evaluated on previous admission with echocardiogram (5) Chronic heart failure with preserved ejection fraction (HFpEF): Plan: - EF 65-70% - Continue Carvedilol 12.5 mg AM and 25 mg PM; Lasix 40 mg daily; Isosorbide mononitrate 60 mg daily; Spironolactone 25 mg daily - Overall appears euvolemic but having pedal edema that worsens with dangling legs - will add additional dose of Lasix as she does utilize PRN dosing at home and monitor (6) CAD (coronary artery disease): Plan: - Stent placement in 2011; Stable - Plavix 75 mg daily; hold ASA (7) Hypertension: Plan: - Continue home medications - Carvedilol; Hydralazine; Nifedipine - H/O YANDEL with stent and CKD contributing to BP control issues (8) Gastric ulcer: Plan: - Recently evaluated by EGD - no evidence of active or recent bleeding - Continue famotidine 10 mg Q2D; Pantoprazole 40 mg BID (9) Type 2 diabetes mellitus: Plan: - Continue insulin regimen and consult glycemic control Disposition: - Will monitor with AC initiation in setting of recent gastric ulcers; will work on reducing swelling and discomfort of ankles - possible DC on Saturday Admission and Anticipated Discharge Date Admission Date: June 12, 2021 Subjective Reports the pain in her feet are much improved since arriving. Swelling remains with L > R. US reveals DVT is now occlusive and will start anticoagulation. Tolerating diet, no bowel/bladder issues. Verbalizes no new complaints at this time. Review of Systems Constitutional: no fever and no chills Eyes: no worsening vision Ear, Nose, Mouth, Throat: no nasal congestion and no sore throat Respiratory: no cough and no dyspnea Cardiovascular: + edema (bilateral feet/ankles - L > R); no chest pain, no dyspnea and no orthopnea Gastrointestinal: no abdominal pain, no nausea, no vomiting, no constipation, no diarrhea/loose stools, no blood in stools and no melena Genitourinary: no dysuria Musculoskeletal: + joint pain (L great toe - improving) Integumentary: + erythema (reducing - almost resolved) Neurologic: no tingling and no numbness Physical Exam Constitutional: WD/WN, vitals as above Eyes: + anicteric sclerae; no conjunctival abnormality ENMT: external ear and nose normal, oropharynx normal Neck: trachea midline, no thyromegaly Respiratory: normal respiratory effort, lungs clear to auscultation Cardiovascular: Rate/Rhythm: regular rate and regular rhythm Heart Sounds: normal S1, normal S2 and + murmur Vessels: no JVD Extremities: + pedal edema Gastrointestinal (Abdomen): normal bowel sounds, soft, nontender, no hepatosplenomegaly Neurologic: moves all extremities Psychiatric: A+Ox3, euthymic affect Results & Data Results & Data ([facility]) Vital Signs (Past 12 Hours) Vital Signs Temp Pulse Resp BP Pulse Ox 06/14/21 15:17 36.8 C 60 16 126/67 96 06/14/21 07:18 36.7 C 80 16 125/59 L 96 PG Care Time/CCT Total # of Minutes Spent Total Time Spent with Patient: Total time spent is greater than 50% in coordination of care (as documented) at patient's floor/unit and/or counseling patient: Coding Level of Care Code 94015 Subseq Hosp Care Lvl 3 Diagnoses Acute pain of left foot M79.672 DVT (deep venous thrombosis) I82.452 Affected thrombotic vein of extremity: peroneal Chronicity: acute DVT location: lower extremity Laterality: left CKD (chronic kidney disease), stage IV N18.4 Pericardial effusion I31.3 Chronic heart failure with preserved ejection fraction (HFpEF) I50.32 CAD (coronary artery disease) I25.10 Coronary Disease-Associated Artery/Lesion type: [place] artery [place] vs. transplanted heart: [place] heart Associated angina: without angina Hypertension I10 Hypertension type: essential hypertension Gastric ulcer K25.9 Type 2 diabetes mellitus E11.9 (1) DVT (deep venous thrombosis) Affected thrombotic vein of extremity: peroneal Chronicity: acute DVT locat ion: lower extremity Laterality: left Qualified Code(s): I82.452 - Acute emb olism and thrombosis of left peroneal vein (2) CAD (coronary artery disease) Coronary Disease-Associated Artery/Lesion type: [place] artery [place] vs. transplanted heart: [place] heart Associated angina: without angina Qualified Code(s): I25.10 - Atherosclerotic heart disease of [place] coronary artery without angina pectoris (3) Hypertension Hypertension type: essential hypertension Qualified Code(s): I10 - Essential (primary) hypertension
[2021-06-14] MEDS: carvediloL 25 MG TAB PO SCH (22:31)
[2021-06-15] MEDS: CLOPIDOGREL BISULFATE 75 MG TAB PO SCH (07:27)
[2021-06-15] MEDS: carvediloL 12.5 MG TAB PO SCH (07:27)
[2021-06-15] MEDS: APIXABAN 5 MG TABLET PO SCH ×2 (07:27→20:45)
[2021-06-15] MEDS: FUROSEMIDE 40 MG TAB PO SCH (07:28)
[2021-06-15] MEDS: hydrALAZINE HCL 25 MG TAB PO SCH ×3 (07:28→20:45)
[2021-06-15] MEDS: OMEGA-3 (PURIFIED FISH OIL) 1 GM CAP PO SCH (07:28)
[2021-06-15] MEDS: SPIRONOLACTONE 25 MG TAB PO SCH (07:29)
[2021-06-15] MEDS: NIFEdipine EXTENDED REL 30 MG TABCR PO SCH (07:29)
[2021-06-15] MEDS: ISOSORBIDE MONO EXTENDED REL 60 MG TABCR PO SCH (07:29)
[2021-06-15] MEDS: PANTOprazole 40 MG TAB PO SCH ×2 (07:29→20:42)
[2021-06-15] MEDS: INSULIN HUMAN LISPRO (humaLOG) 100 UNITS/ML VIAL SC SCH ×4 (09:12→20:38)
[2021-06-15] MEDS: INSULIN GLARGINE SOLOSTAR 100 UNITS/ML 3 ML PEN SQ SCH (09:13)
[2021-06-15 10:29] LABS: Hematocrit (blood only) 34.1 % (37-47); Hemoglobin 11.1 g/dL (12.0-16.0); Mean Corpuscular Hemoglobin 28.1 pg (25-34); Mean Corpuscular Hgb Conc 32.6 g/dL (32-36); Mean Corpuscular Volume 86.3 fL (80-100); Mean Platelet Volume 10.8 fL (7.4-10.4); Platelet Count 368 K/uL (130-400); RDW Coefficient of Variation 14.4 % (11.5-14.5); RDW Standard Deviation 45.6 fL (36.4-46.3); Red Blood Count 3.95 M/uL (4.2-5.4); White Blood Count 11.95 K/uL (4.8-10.8)
--- NOTE | 2021-06-15 11:46 | Pharmacy Report ---
Pharmacy Glycemic Short Note 2 - Date of Service June 15, 2021 - Glycemic Short BSG Results (Last 24 hours): 06/14/21 06/14/21 06/14/21 12:07 16:56 20:49 POC Glucose 218 H 152 H 115 H 06/15/21 08:01 POC Glucose 149 H OUTPATIENT ANTIDIABETIC REGIMEN: * Lantus 20 units qAM * Humalog 10 units TIDM * A1c 7.4% 05/27/21 ASSESSMENT: 06/15/21 * Pt has received 41 units of insulin over the past 24hrs * 20 units of basal with Lantus * 21 units of bolus with HumaLog * BSGs 115-218 mg/dl * Fasting BSG 149mg/dl, continue basal * Only 1 blood sugar out of goal range, continue CF/CR at this time 06/13/21 * Patient started on home lantus, fasting this morning within goal range will continue * Novolog started at weight based stress of 2, will tighten if needed PLAN FOR INPATIENT GLYCEMIC CONTROL: * Basal insulin * Lantus 20 units SQ QAM * Bolus insulin * HumaLog per scale ACHS or Q6hrs while NPO * Goal Range: Low 110 mg/dL - High 140 mg/dL * Correction Factor: 25 mg/dL/unit * Nutritional / Prandial insulin per carb ratio of 1 unit per 8 grams CHO consumed DISCHARGE RECOMMENDATIONS: * A1c 7.4%, continue basal bolus insulin and follow-up with outpatient provider to titrate to goal blood sugar.
[2021-06-15] MEDS ORDERED: FUROSEMIDE 40 MG TAB PO ONE (17:00)
[2021-06-15] MEDS: carvediloL 25 MG TAB PO SCH (17:58)
[2021-06-15] MEDS: ACETAMINOPHEN 325 MG TAB PO PRN (18:00)
[2021-06-15] MEDS: cefTRIAXone SODIUM 2,000 MG in DEXTROSE 5% 50 ML IV SCH (18:00)
--- NOTE | 2021-06-15 18:36 | Hospitalist Progress Note ---
Date of Service June 15, 2021 Assessment & Plan (1) Acute pain of left foot: Plan: - Pain nearly resolved of the toe and erythema gone - DDx - gout vs cellulitis vs DVT vs swelling - Tylenol PRN - Colchicine 0.6 mg x 1 dose given previously - uric acid is elevated however is a CKD patient; unlikely to aspirate that area - Continue Rocephin daily for possibility of infection - WBC is chronically elevated but now is starting to decrease since initiation of Abx -- There are mild breaks in the skin of that foot at possibly a cause for cellulitis? - Does take diuretics - will increase Lasix as needed for swelling (2) DVT (deep venous thrombosis): Plan: - Imaging does not reveal fracture - Initial U/S reveals a non-occlussive DVT in on of the two left peroneal veins -- Patient is currently on Plavix and ASA; recent admission for gastric ulcers however these did not show any signs of bleeding and patient reports no melena/bloody stools -- Initial consideration for routine US to assess - repeat U/S on May reveals the DVT is now occlusive and likely going to further propagate - Discussed with cardiology and will hold ASA while utilizing Eliquis - Eliquis 10 mg BID x 7 days then 5 mg BID x 3 months - will need to monitor for bleeding/renal function (3) CKD (chronic kidney disease), stage IV: Plan: - Stable; Baseline Cr 3.5-3.9 - Follows with Dr. Sandoval - will continue renal dosing and avoid nephrotoxins - Calcitriol MWF - AM labs (4) Pericardial effusion: Plan: - Stable - evaluated on previous admission with echocardiogram (5) Chronic heart failure with preserved ejection fraction (HFpEF): Plan: - EF 65-70% - Continue Carvedilol 12.5 mg AM and 25 mg PM; Lasix 40 mg daily; Isosorbide mononitrate 60 mg daily; Spironolactone 25 mg daily - Overall appears euvolemic but having pedal edema that worsens with dangling legs - will add additional dose of Lasix as she does utilize PRN dosing at home and monitor (6) CAD (coronary artery disease): Plan: - Stent placement in 2011; Stable - Plavix 75 mg daily; hold ASA (7) Hypertension: Plan: - Continue home medications - Carvedilol; Hydralazine; Nifedipine - H/O YANDEL with stent and CKD contributing to BP control issues (8) Gastric ulcer: Plan: - Recently evaluated by EGD - no evidence of active or recent bleeding - Continue famotidine 10 mg Q2D; Pantoprazole 40 mg BID (9) Type 2 diabetes mellitus: Plan: - Continue insulin regimen and consult glycemic control Disposition: - Will monitor with AC initiation in setting of recent gastric ulcers; will work on reducing swelling and discomfort of ankles - DC on Saturday - Do not anticipate home needs at this time Admission and Anticipated Discharge Date Admission Date: June 12, 2021 Subjective Pt doing well this AM. Still with pedal edema with L > R. So far tolerating anticoagulation without issue. Attempted to do more walking in the hallway/room today. Anticipate return home tomorrow Review of Systems Constitutional: no fever and no chills Eyes: no worsening vision Ear, Nose, Mouth, Throat: no nasal congestion and no sore throat Respiratory: no cough and no dyspnea Cardiovascular: + edema (bilateral feet/ankles - L > R); no chest pain, no dyspnea and no orthopnea Gastrointestinal: no abdominal pain, no nausea, no vomiting, no constipation, no diarrhea/loose stools, no blood in stools and no melena Genitourinary: no dysuria Integumentary: no erythema (reducing - almost resolved) Neurologic: no tingling and no numbness Physical Exam Constitutional: WD/WN, vitals as above Eyes: + anicteric sclerae; no conjunctival abnormality ENMT: external ear and nose normal, oropharynx normal Neck: trachea midline, no thyromegaly Respiratory: normal respiratory effort, lungs clear to auscultation Cardiovascular: Rate/Rhythm: regular rate and regular rhythm Heart Sounds: normal S1, normal S2 and + murmur Vessels: no JVD Extremities: + pedal edema Gastrointestinal (Abdomen): normal bowel sounds, soft, nontender, no hepatosplenomegaly Neurologic: moves all extremities Psychiatric: A+Ox3, euthymic affect Results & Data Results & Data ([facility]) Vital Signs (Past 12 Hours) Vital Signs Temp Pulse Resp BP BP Pulse Ox 06/15/21 17:06 36.8 C 75 16 125/63 94 06/15/21 13:23 122/76 06/15/21 07:20 36.8 C 70 16 123/68 96 PG Care Time/CCT Total # of Minutes Spent Total Time Spent with Patient: Total time spent is greater than 50% in coordination of care (as documented) at patient's floor/unit and/or counseling patient: Coding Level of Care Code 47658 Subseq Hosp Care Lvl 2 Diagnoses Acute pain of left foot M79.672 DVT (deep venous thrombosis) I82.452 Affected thrombotic vein of extremity: peroneal Chronicity: acute DVT location: lower extremity Laterality: left CKD (chronic kidney disease), stage IV N18.4 Pericardial effusion I31.3 Chronic heart failure with preserved ejection fraction (HFpEF) I50.32 CAD (coronary artery disease) I25.10 Coronary Disease-Associated Artery/Lesion type: [place] artery [place] vs. transplanted heart: [place] heart Associated angina: without angina Hypertension I10 Hypertension type: essential hypertension Gastric ulcer K25.9 Type 2 diabetes mellitus E11.9 (1) DVT (deep venous thrombosis) Affected thrombotic vein of extremity: peroneal Chronicity: acute DVT location: lower extremity Laterality: left Qualified Code(s): I82.452 - Acute embolism and thrombosis of left peroneal vein (2) CAD (coronary artery disease) Coronary Disease-Associated Artery/Lesion type: [place] artery [place] vs. transplanted heart: [place] heart Associated angina: without angina Qualified Code(s): I25.10 - Atherosclerotic heart disease of [place] coronary artery without angina pectoris (3) Hypertension Hypertension type: essential hypertension Qualified Code(s): I10 - Essential (primary) hypertension
[2021-06-16] MEDS: ACETAMINOPHEN 325 MG TAB PO PRN ×2 (02:05→14:14)
[2021-06-16] MEDS ORDERED: NITROGLYCERIN SL 0.4 MG/TAB TAB SL PRN (02:40)
[2021-06-16] MEDS ORDERED: METOPROLOL TARTRATE 1 MG/ML VIAL IV STA ×2 (02:52→03:30)
[2021-06-16] MEDS: carvediloL 25 MG TAB PO SCH ×2 (03:07→20:29)
[2021-06-16 08:09] LABS: BUN Creatinine Ratio 18.9 (10-20); Calcium 8.8 mg/dl (8.5-10.1); Creatinine Clr Calc Pharmacy 12.6 ml/min; Est GFR (African American) 10.8 ml/min; Est GFR (Non-African American) 9.3 ml/min; Potassium 4.3 mmol/L (3.5-5.1)
[2021-06-16] MEDS: APIXABAN 5 MG TABLET PO SCH ×2 (08:43→20:28)
[2021-06-16] MEDS: CALCITRIOL 0.25 MCG CAPSULE PO SCH (08:47)
[2021-06-16] MEDS: carvediloL 12.5 MG TAB PO SCH (08:48)
[2021-06-16] MEDS: CLOPIDOGREL BISULFATE 75 MG TAB PO SCH (08:49)
[2021-06-16] MEDS: OMEGA-3 (PURIFIED FISH OIL) 1 GM CAP PO SCH (08:50)
[2021-06-16] MEDS: FAMOTIDINE 10 MG TABLET PO SCH (08:50)
[2021-06-16] MEDS: hydrALAZINE HCL 25 MG TAB PO SCH ×3 (08:52→20:29)
[2021-06-16] MEDS: ISOSORBIDE MONO EXTENDED REL 60 MG TABCR PO SCH (08:53)
[2021-06-16] MEDS: NIFEdipine EXTENDED REL 30 MG TABCR PO SCH (08:54)
[2021-06-16] MEDS: PANTOprazole 40 MG TAB PO SCH ×2 (08:56→20:31)
[2021-06-16] MEDS: INSULIN GLARGINE SOLOSTAR 100 UNITS/ML 3 ML PEN SQ SCH (09:30)
[2021-06-16] MEDS: INSULIN HUMAN LISPRO (humaLOG) 100 UNITS/ML VIAL SC SCH ×4 (09:36→20:30)
[2021-06-16] MEDS: SPIRONOLACTONE 25 MG TAB PO SCH (10:12)
--- NOTE | 2021-06-16 13:31 | Electrocardiogram Report ---
Test Reason : Blood Pressure : / mmHG Vent. Rate : 131 BPM Atrial Rate : 133 BPM P-R Int : 000 ms QRS Dur : 088 ms QT Int : 296 ms P-R-T Axes : 000 -10 171 degrees QTc Int : 437 ms Atrial fibrillation with rapid ventricular response Voltage criteria for left ventricular hypertrophy Marked ST abnormality, possible inferolateral subendocardial injury Abnormal ECG When compared with ECG of 16-JUN-2021 02:19, (unconfirmed) No significant change was found Confirmed by Chris Ortiz ([id number]) on 06/16/2021 1:30:45 PM Referred By: REFERRED SELF Confirmed By:Chris Ortiz
--- NOTE | 2021-06-16 13:31 | Electrocardiogram Report ---
Test Reason : Blood Pressure : / mmHG Vent. Rate : 125 BPM Atrial Rate : 120 BPM P-R Int : 000 ms QRS Dur : 092 ms QT Int : 304 ms P-R-T Axes : 000 -06 175 degrees QTc Int : 438 ms Atrial fibrillation with rapid ventricular response Voltage criteria for left ventricular hypertrophy T wave abnormality, consider inferolateral ischemia Abnormal ECG When compared with ECG of 31-MAY-2021 05:03, Atrial fibrillation has replaced Sinus rhythm Vent. rate has increased BY [address] now depressed in Anterior leads Nonspecific T wave abnormality has replaced inverted T waves in Anterior leads Confirmed by Chris Ortiz ([id number]) on 06/16/2021 1:30:29 PM Referred By: REFERRED SELF Confirmed By:Chris Ortiz
--- NOTE | 2021-06-16 13:36 | Ultrasound Report ---
ULTRASOUND LEFT LOWER EXTREMITY VENOUS CLINICAL HISTORY: Leg pain and edema. DVT. COMPARISON STUDY: Left lower extremity venous ultrasound dated 06/14/2021 TECHNIQUE: Real-time, grayscale, and color Doppler sonography of the deep veins of the left lower ext remity was performed from the inguinal crease to the calf. Compression and augmentation were utilized . FINDINGS: Deep venous thrombosis is again seen in the left calf within one of the peroneal veins. The remaining calf vessels are clear as visualized. No above knee deep venous thrombosis is identified. The common femoral, superficial femoral, and popliteal veins are patent and normally compressible. Th e greater saphenous vein and the profunda femoris vein at the junction with the common femoral vein a re clear. IMPRESSION: 1. Unchanged deep venous thrombosis in the left calf as compared to study performed 2 days previously . 2. No above knee deep venous thrombosis is identified.. ACT 112: Negative or not required by law. Electronically signed by: Carlos A Nazario M.D. 06/16/2021 1:35 PM
[2021-06-16] MEDS: cefTRIAXone SODIUM 2,000 MG in DEXTROSE 5% 50 ML IV SCH (17:54)
--- NOTE | 2021-06-16 18:22 | Hospitalist Progress Note ---
Date of Service June 16, 2021 Assessment & Plan (1) Acute pain of left foot: Plan: - Pain improving and better mobility of feet/ankles - DDx - gout vs cellulitis vs DVT vs swelling - Tylenol PRN - Colchicine 0.6 mg x 1 dose given previously - uric acid is elevated however is a CKD patient; unlikely to aspirate that area - Continue Rocephin daily for possibility of infection likely can convert to orals and finish course -- There are mild breaks in the skin of that foot at possibly a cause for cellulitis? (2) DVT (deep venous thrombosis): Plan: - Imaging does not reveal fracture - Initial U/S reveals a non-occlussive DVT in on of the two left peroneal veins -- Patient is currently on Plavix and ASA; recent admission for gastric ulcers however these did not show any signs of bleeding and patient reports no melena/bloody stools -- Initial consideration for routine US to assess - repeat U/S on May reveals the DVT is now occlusive and likely going to further propagate - Discussed with cardiology and will hold ASA while utilizing Eliquis - Eliquis 10 mg BID x 7 days then 5 mg BID x 3 months - will need to monitor for bleeding/renal function (3) CKD (chronic kidney disease), stage IV: Plan: - Increased to 4.45 and will hold diuretics and re-assess labs in AM; Baseline Cr 3.5-3.9 - Follows with Dr. Sandoval and discussed the case - will continue renal dosing and avoid nephrotoxins - Calcitriol MWF - AM labs (4) Pericardial effusion: Plan: - Stable - evaluated on previous admission with echocardiogram (5) Chronic heart failure with preserved ejection fraction (HFpEF): Plan: - EF 65-70% - Continue Carvedilol 12.5 mg AM and 25 mg PM; Lasix 40 mg daily currently on hold; Isosorbide mononitrate 60 mg daily; Spironolactone 25 mg daily currently on hold - Overall appears euvolemic but having pedal edema that worsens with dangling legs (6) CAD (coronary artery disease): Plan: - Stent placement in 2011; Stable - Plavix 75 mg daily; hold ASA (7) Hypertension: Plan: - Continue home medications - Carvedilol; Hydralazine; Nifedipine - H/O YANDEL with stent and CKD contributing to BP control issues (8) Gastric ulcer: Plan: - Recently evaluated by EGD - no evidence of active or recent bleeding - Continue famotidine 10 mg Q2D; Pantoprazole 40 mg BID (9) Type 2 diabetes mellitus: Plan: - Continue insulin regimen and consult glycemic control Disposition: - Assess renal function - once improved can D/C possibly or Saturday - Do not anticipate home needs at this time Admission and Anticipated Discharge Date Admission Date: June 12, 2021 Subjective Reports her ankle/foot pain is improving and able to flex her ankles more and the swelling is improving. L is still greater than R. She had an episode of AFib RVR overnight. Apparently she has been refusing most of her evening Coreg. Likely the cause of the episode. She has been on Coreg for years but states it makes her feel sluggish and in slow motion and that is why she takes a reduced dose in the AM. She would like to speak with cardiology in regards to options (possible Metoprolol). She also states her BP has been lower in the evenings so she has been holding that medication. However, states she does get this episodes occasionally at home even when taking the medication. Maybe needs a dose titration? Her Cr did rise today but electrolytes are stable and discussed with Dr. Sandoval. Review of Systems Constitutional: no fever and no chills Eyes: no worsening vision Ear, Nose, Mouth, Throat: no nasal congestion and no sore throat Respiratory: no cough and no dyspnea Cardiovascular: + edema (R predominantly resolved; still with LLE edema but improving); no chest pain, no dyspnea and no orthopnea Gastrointestinal: no abdominal pain, no nausea, no vomiting, no constipation, no diarrhea/loose stools, no blood in stools and no melena Genitourinary: no dysuria Musculoskeletal: no joint pain Integumentary: no erythema Neurologic: no tingling and no numbness Physical Exam Constitutional: WD/WN, vitals as above Eyes: + anicteric sclerae; no conjunctival abnormality ENMT: external ear and nose normal, oropharynx normal Neck: trachea midline, no thyromegaly Respiratory: normal respiratory effort, lungs clear to auscultation Cardiovascular: Rate/Rhythm: regular rate and regular rhythm Heart Sounds: normal S1, normal S2 and + murmur Vessels: no JVD Extremities: + pedal edema (L foot) Gastrointestinal (Abdomen): normal bowel sounds, soft, nontender, no hepatosplenomegaly Neurologic: moves all extremities Psychiatric: A+Ox3, euthymic affect Results & Data Results & Data ([facility]) Vital Signs (Past 12 Hours) Vital Signs Temp Pulse Pulse Resp BP Pulse Ox 06/16/21 15:45 37.0 C 71 18 100/57 L 92 06/16/21 07:36 36.7 C 66 16 114/72 93 PG Care Time/CCT Total # of Minutes Spent Total Time Spent with Patient: Total time spent is greater than 50% in coordination of care (as documented) at patient's floor/unit and/or counseling patient: Coding Level of Care Code 85677 Subseq Hosp Care Lvl 3 Diagnoses Acute pain of left foot M79.672 DVT (deep venous thrombosis) I82.452 Affected thrombotic vein of extremity: peroneal Chronicity: acute DVT location: lower extremity Laterality: left CKD (chronic kidney disease), stage IV N18.4 Pericardial effusion I31.3 Chronic heart failure with preserved ejection fraction (HFpEF) I50.32 CAD (coronary artery disease) I25.10 Coronary Disease-Associated Artery/Lesion type: [place] artery [place] vs. transplanted heart: [place] heart Associated angina: without angina Hypertension I10 Hypertension type: essential hypertension Gastric ulcer K25.9 Type 2 diabetes mellitus E11.9 (1) DVT (deep venous thrombosis) Affected thrombotic vein of extremity: peroneal Chronicity: acute DVT location: lower extremity Laterality: left Qualified Code(s): I82.452 - Acute embolism and thrombosis of left peroneal vein (2) CAD (coronary artery disease) Coronary Disease-Associated Artery/Lesion type: [place] artery [place] vs. transplanted heart: [place] heart Associated angina: without angina Qualified Code(s): I25.10 - Atherosclerotic heart disease of [place] coronary artery without angina pectoris (3) Hypertension Hypertension type: essential hypertension Qualified Code(s): I10 - Essential (primary) hypertension
[2021-06-17 07:37] LABS: Hematocrit (blood only) 31.8 % (37-47); Hemoglobin 10.5 g/dL (12.0-16.0); Mean Corpuscular Hemoglobin 28.7 pg (25-34); Mean Corpuscular Volume 86.9 fL (80-100); Mean Platelet Volume 10.6 fL (7.4-10.4); Platelet Count 386 K/uL (130-400); RDW Coefficient of Variation 14.3 % (11.5-14.5); RDW Standard Deviation 45.4 fL (36.4-46.3); Red Blood Count 3.66 M/uL (4.2-5.4); White Blood Count 12.49 K/uL (4.8-10.8)
[2021-06-17 07:54] LABS: BUN Creatinine Ratio 21.3 (10-20); Calcium 8.5 mg/dl (8.5-10.1); Creatinine Clr Calc Pharmacy 14.6 ml/min; Est GFR (African American) 12.8 ml/min; Est GFR (Non-African American) 11.1 ml/min; Potassium 3.8 mmol/L (3.5-5.1)
[2021-06-17] MEDS: INSULIN HUMAN LISPRO (humaLOG) 100 UNITS/ML VIAL SC SCH ×4 (08:55→20:52)
[2021-06-17] MEDS: INSULIN GLARGINE SOLOSTAR 100 UNITS/ML 3 ML PEN SQ SCH (08:55)
[2021-06-17] MEDS: hydrALAZINE HCL 25 MG TAB PO SCH ×3 (08:55→20:51)
[2021-06-17] MEDS: PANTOprazole 40 MG TAB PO SCH ×2 (08:55→20:51)
[2021-06-17] MEDS: CLOPIDOGREL BISULFATE 75 MG TAB PO SCH (08:56)
[2021-06-17] MEDS: ISOSORBIDE MONO EXTENDED REL 60 MG TABCR PO SCH (08:56)
[2021-06-17] MEDS: OMEGA-3 (PURIFIED FISH OIL) 1 GM CAP PO SCH (08:56)
[2021-06-17] MEDS: APIXABAN 5 MG TABLET PO SCH ×2 (08:56→20:51)
[2021-06-17] MEDS: carvediloL 12.5 MG TAB PO SCH (08:56)
[2021-06-17] MEDS: NIFEdipine EXTENDED REL 30 MG TABCR PO SCH (08:56)
--- NOTE | 2021-06-17 10:23 | Cardiology Consultation ---
Date of Consultation June 17, 2021 Assessment & Plan (1) Paroxysmal atrial fibrillation: (2) Chronic heart failure with preserved ejection fraction (HFpEF): (3) CAD (coronary artery disease): (4) Hypertension: (5) Pericardial effusion: 1. Paroxysmal atrial fibrillation: Based on her history she has had arrhythmias for many years, perhaps 30 years, although that would not make sense for atrial fibrillation although it is conceivable. Since it was evaluated in the past I would think she would have been told about it and would be aware of it if she had atrial fibrillation, but since I do not have records I cannot be sure. Perhaps she had some type of SVT. We do not know the burden, I would feel more comfortable if I knew how much atrial fibrillation she has including the duration and whether there is some initiating event such as SVT. That may guide therapy. I recommend a 30-day event recorder, this can be done at discharge, since she will be on anticoagulation anyhow and has had this for a long time I think it is safe to send her home and do an outpatient evaluation. 2. Congestive heart failure: She has diastolic CHF, atrial fibrillation probably is not helpful but if her burden is low perhaps this is not a significant issue. 3. Coronary disease: She has known coronary disease but the atrial fibrillation does not seem to cause angina, still it would be better to have her heart rate under better control during it and we should go up on her medications. Especially since she has resting hypertension as well. 4. Hypertension: She has hypertension at times, although at other times it is not elevated. It appears to be quite labile and it appears to be primarily s ystolic hypertension. Negative inotropes may be good therapy for this, she is on carvedilol but this may drop her blood pressure more than a drug like metoprolol and she does not have a reduced ejection fraction where the alpha blocking effect of carvedilol would be beneficial. I would consider switching carvedilol to metoprolol succinate and try to titrate the dose to achieve rate control during atrial fibrillation. Of course this will require some type of long-term monitoring as well as relatively frequent episodes to see whether we have adequate rate control. 5. Pericardial effusion: She seems to have a stable pericardial effusion, at least as of several weeks ago, I do not think we need another echocardiogram to evaluate it. Since this is a longstanding arrhythmia I do not think it is related to her pericardial effusion (such as pericarditis, etc.). History of Present Illness Reason for Consultation: Rapid atrial fibrillation Attending Physician: Jose Rangel DO History of Present Illness This is a 71-year-old woman who has a history of hypertension, diabetes mellitus and dyslipidemia as well as coronary artery disease including intervention of the circumflex on September 20, 2010 and of the right coronary artery on October 12, 2019. She also has renal artery stenosis with a stent September 05, 2014. More recently she had catheterization October 12, 2019 where she had a mid right coronary artery stent placed. A recent echocardiogram from May 27, 2021 showed hyperdynamic left ventricular function with severe concentric left ventricular hypertrophy and a small pericardial effusion. A follow-up May 30, 2021 was unchanged. She was recently hospitalized from May 29, 2021 through June 02, 2021 for gastritis, hypertension, chronic kidney disease and congestive heart failure. She then presented to the emergency room on June 12, 2016 with bilateral foot pain, left greater than right she appeared to have a nonocclusive thrombus in the left peroneal vein, however given the high risk of bleeding she was not placed on anticoagulation initially however subsequently was started on Eliquis and aspirin was discontinued. She was also treated with antibiotics. Her pain has improved significantly. She developed atrial fibrillation in the all round butcher hours of June 16, 2021. The heart rate was rapid (around 130 bpm) at that time. She tells me that it was recommended that she go down to the second floor, but she has been there before and declined that transfer. I do not know how long she was in the arrhythmia, she thought the total time might have been about 45 minutes, based on her vital signs it appears longer than that, probably over 2 hours but then this resolved. She has not felt it since then she tells me she is acutely aware of it although does not have severe symptoms. Interestingly she describes having her heart "dancing" for many years, she tells me perhaps 30 years or more, and it sounds as though she may have had an evaluation in the past but she does not really recognize atrial fibrillation. Perhaps she had SVT, I do not see an arrhythmia history in her chart. She gets this somewhat sporadically (at least based on symptoms) and is not very bothered by it but the heart rate is fast. She has never had presyncope or syncope with it and generally she relaxes and goes away. It does not sound as though she has been on an anticoagulant before, she says she has been however she means platelet inhibitors not anticoagulants. Allergies Allergy/AdvReac Type Severity Reaction Status Date / Time heparin Allergy Hives Verified 06/12/21 16:36 insulin aspart Allergy Hives Verified 06/12/21 16:36 [From Novolog U-100 Insulin aspart] meperidine AdvReac Intermediate hallucinate Verified 06/12/21 16:36 s lisinopril AdvReac Mild COUGHING Verified 06/12/21 16:36 Home Medications Medication Instructions Recorded Confirmed Type aspirin 81 mg tablet,delayed 81 mg PO QAM 03/26/21 06/12/21 History release clopidogrel 75 mg tablet (Plavix) 75 mg PO QAM 03/26/21 06/12/21 History furosemide 20 mg tablet 40 mg PO QAM 03/26/21 06/12/21 History carvedilol 12.5 mg tablet 12.5 - 25 mg PO AMPM 05/26/21 06/12/21 History insulin lispro 100 unit/mL 0 unit SUBCUT BIDM MDD 75 units 05/26/21 06/12/21 History subcutaneous pen (Humalog KwikPen (U-100) Insulin) [id number] oil-vit D3 300 1 cap PO QAM 05/26/21 06/12/21 History mg-1,000 mg-1,000 unit capsule (Fish Oil-Vit D3) calcitriol 0.25 mcg capsule 0.25 mcg PO 3XWK #30 cap 05/31/21 06/12/21 Rx insulin glargine 100 unit/mL (3 20 unit SUBCUT QAM #30 ml 06/05/21 06/12/21 Rx mL) subcutaneous pen (Lantus Solostar U-100 Insulin) dicyclomine 10 mg capsule 10 mg PO TID PRN #12 cap 06/07/21 06/12/21 Rx famotidine 10 mg tablet 10 mg PO Q2D #14 tab 06/07/21 06/12/21 Rx hydralazine 25 mg tablet 25 mg PO TID #90 tab 06/07/21 06/12/21 Rx isosorbide mononitrate 60 mg 60 mg PO QAM #30 tab 06/07/21 06/12/21 Rx tablet,extended release 24 hr nifedipine 60 mg tablet,extended 60 mg PO DAILY #30 tab 06/07/21 06/12/21 Rx release 24 hr pantoprazole 40 mg tablet,delayed 40 mg PO BID #60 tab 06/07/21 06/12/21 Rx release spironolactone 25 mg tablet 25 mg PO QAM #90 tab 06/07/21 06/12/21 Rx apixaban 5 mg (74 tabs) tablets in 5 - 10 mg PO BID #74 ea 06/14/21 Rx a dose pack (Eliquis) Patient History Medical History CAD (coronary artery disease) Chronic heart failure with preserved ejection fraction (HFpEF) CKD (chronic kidney disease) Diverticulosis Elevated troponin History of stent insertion of renal artery 2013 Hyperlipidemia Hypertension Hypertensive emergency LVH (left ventricular hypertrophy) Lymphedema Renal artery stenosis Status post myocardial infarction Vulvovaginal candidiasis Surgical History H/O heart artery stent Family History Other Hypertension Social History Smoking Status: Never smoker Second Hand Exposure: No; Hx Alcohol Use: No Hx Substance Use: No Preferred Language: Indonesian Communication Ability: Effective Delivery Driver/Supervisor Required: No Beliefs That Will Affect Care: None marital status: Single Current Living Situation: Family Current Living Situation Comment: lives with grandson How many Children do You have: 2 Feels Safe at Home: Yes Assistive Devices: Glasses Review of Systems Review of Systems: A review of systems was performed and is notable as in the HPI Physical Exam Physical Exam: Constitutional: Alert, cooperative and in no distress. HEENT: Unremarkable Neck: No jugular venous distention, carotid pulses are normal and equal bi laterally without bruits. Pulmonary: Clear to auscultation bilaterally. Cardiac: Regular rhythm with a grade 2/6 holosystolic murmur at the apex, no gallop or rub. Abdomen: Soft, nontender with normal bowel sounds. Extremities: No edema on the right, the left is mildly swollen and somewhat tender. Distal pulses intact. Neurologic: No focal findings. Gait was not tested. Skin: No rash, ecchymoses or petechiae. Results & Data ([facility]) Vital Signs (Past 12 Hours) Vital Signs Temp Pulse Pulse Resp BP Pulse Ox 06/17/21 07:31 36.9 C 65 16 153/83 H 94 06/16/21 22:44 36.5 C 63 17 120/66 94 Laboratory Results CBC 06/17/21 Range/Units 07:24 WBC 12.49 H (4.8-10.8) K/uL RBC 3.66 L (4.2-5.4) M/uL Hgb 10.5 L (12.0-16.0) g/dL Hct 31.8 L (37-47) % Plt Count 386 (130-400) K/uL Comprehensive Metabolic Panel 06/17/21 Range/Units 07:24 Sodium 140 (136-145) mmol/L Potassium 3.8 (3.5-5.1) mmol/L Chloride 110 H (98-107) mmol/L Carbon Dioxide 20 L (21-32) mmol/L BUN 82 H (7-18) mg/dl Creatinine 3.86 H D (0.6-1.2) mg/dl Glucose 147 H (70-99) mg/dl Calcium 8.5 (8.5-10.1) mg/dl Intake and Output 06/16/21 06/17/21 06/17/21 22:59 06:59 14:59 Intake Total 70 / 430 Balance 70 / 430 Intake: IV 70 / 70 cefTRIAXone SODIUM 2,000 mg In 70 / 70 Dextrose 5% 50 ml @ 140 mls/hr IV Q24H [facility] Rx#:[id number] PG Care Time/CCT Total # of Minutes Spent Total Time Spent with Patient: Total time spent is greater than 50% in coordination of care (as documented) at patient's floor/unit and/or counseling patient: Coding Level of Care Code 59505 Initial Inpt Care Lvl 3 Diagnoses Paroxysmal atrial fibrillation I48.0 Chronic heart failure with preserved ejection fraction (HFpEF) I50.32 CAD (coronary artery disease) I25.10 Associated angina: without angina Coronary Disease-Associated Artery/Lesion type: [place] artery [place] vs. transplanted heart: [place] heart Hypertension I10 Hypertension type: essential hypertension Pericardial effusion I31.3 (1) CAD (coronary artery disease) Associated angina: without angina Coronary Disease-Associated Artery/Lesion type: [place] artery [place] vs. transplanted heart: [place] heart Qualified Code(s): I25.10 - Atherosclerotic heart disease of [place] coronary artery without angina pectoris (2) Hypertension Hypertension type: essential hypertension Qualified Code(s): I10 - Essential (primary) hypertension
[2021-06-17] MEDS: METOPROLOL SUCC 25MG EXT REL TAB PO SCH (17:51)
--- NOTE | 2021-06-17 18:53 | Hospitalist Progress Note ---
Date of Service June 17, 2021 Assessment & Plan (1) Acute pain of left foot: Plan: - Pain improved and better mobility of feet/ankles - DDx - gout vs cellulitis vs DVT vs swelling - Tylenol PRN - Colchicine 0.6 mg x 1 dose given previously - uric acid was elevated; unlikely to aspirate that area - Stop Rocephin as completed 5 day course -- There are mild breaks in the skin of that foot at possibly a cause for infection (2) DVT (deep venous thrombosis): Plan: - Imaging does not reveal fracture - Initial U/S reveals a non-occlussive DVT in one of the two left peroneal veins -- Patient was on Plavix and ASA; recent admission for gastric ulcers however these did not show any signs of bleeding and patient reports no melena/bloody stools -- Initial consideration for routine US to assess - repeat U/S on May reveals the DVT is now occlusive and likely going to further propagate - Discussed with cardiology and will hold ASA while utilizing Eliquis - Eliquis 10 mg BID x 7 days then 5 mg BID x 3 months - will need to monitor for bleeding/renal function (3) Paroxysmal atrial fibrillation: Plan: - Had a run of A Fib with RVR while in the hospital - aborted with IV Metoprolol - Pt reports multiple episodes over the years of a "dancing heart" - discussed the case with Dr. Montgomery - Initially planned for move to monitored bed however patient would like to stay in her current room - she does examine in NSR and can monitor HR - Plan for outpatient 30 day monitor - Stop Coreg and start Toprol XL 25 mg daily and can monitor as outpatient and titrate accordingly - may allow better HR control with less effect on BP as she was having low normals at night - She will be on Eliquis (DVT dosing initially) which will cover while undergoing 30 day monitoring - dependent on monitor findings could determine need for longer AC (4) CKD (chronic kidney disease), stage IV: Plan: - Increased to 4.45 possibly in setting of A Fib RVR and will hold diuretics and re-assess labs in AM - did improve to 3.86 on today's labs; Baseline Cr 3.5-3.9 - Follows with Dr. Sandoval and discussed the case on 16 June - will continue renal dosing and avoid nephrotoxins - Calcitriol MWF - AM labs (5) Pericardial effusion: Plan: - Stable - evaluated on previous admission with echocardiogram (6) Chronic heart failure with preserved ejection fraction (HFpEF): Plan: - EF 65-70% - Stop Carvedilol 12.5 mg AM and 25 mg PM; Lasix 40 mg daily currently on hold; Isosorbide mononitrate 60 mg daily; Spironolactone 25 mg daily currently on hold - Overall appears euvolemic but having pedal edema that worsens with dangling legs - however this has been improving (7) CAD (coronary artery disease): Plan: - Stent placement in 2011; Stable - Plavix 75 mg daily; hold ASA (8) Hypertension: Plan: - Continue home medications - Hydralazine; Nifedipine - H/O YANDEL with stent and CKD contributing to BP control issues (9) Gastric ulcer: Plan: - Recently evaluated by EGD - no evidence of active or recent bleeding - Continue famotidine 10 mg Q2D; Pantoprazole 40 mg BID (10) Type 2 diabetes mellitus: Plan: - Continue insulin regimen and consult glycemic control Disposition: - Assess renal function and Toprol XL tolerance - once improved can D/C possibly Saturday or Saturday - Do not anticipate home needs at this time Admission and Anticipated Discharge Date Admission Date: June 12, 2021 Subjective Reports doing well today. No feelings of palpitations today. HR has been stable and examines in NSR. RLE edema completely resolved. LLE with edema but improved. Pain is improved and no further redness of the R toe. Renal function improved overnight. Electrolytes remain stable. Will assess renal function in AM. Discussed care with cycling instructor with outpatient arrangements being made. Review of Systems Constitutional: no fever and no chills Ear, Nose, Mouth, Throat: no nasal congestion and no sore throat Respiratory: no cough and no dyspnea Cardiovascular: + edema (R resolved; still with LLE edema but improving/stabilizing); no chest pain, no dyspnea and no orthopnea Gastrointestinal: no abdominal pain, no nausea, no vomiting, no constipation, no diarrhea/loose stools, no blood in stools and no melena + stool darker today but had prune juice over past couple days Genitourinary: no dysuria Musculoskeletal: no joint pain Integumentary: no erythema Neurologic: no tingling and no numbness Physical Exam Constitutional: WD/WN, vitals as above Eyes: + anicteric sclerae; no conjunctival abnormality Neck: trachea midline Respiratory: normal respiratory effort, lungs clear to auscultation Cardiovascular: Rate/Rhythm: regular rate and regular rhythm Heart Sounds: normal S1, normal S2 and + murmur Vessels: no JVD Extremities: + pedal edema (L foot - improving) Gastrointestinal (Abdomen): normal bowel sounds, soft, nontender, no hepatosplenomegaly Skin: No erythema or warmth of the R big toe Neurologic: moves all extremities Psychiatric: A+Ox3, euthymic affect Results & Data Results & Data ([facility]) Vital Signs (Past 12 Hours) Vital Signs Temp Pulse Pulse Resp BP BP Pulse Ox 06/17/21 17:52 71 153/79 H 06/17/21 15:35 36.7 C 67 16 132/78 92 06/17/21 07:31 36.9 C 65 16 153/83 H 94 PG Care Time/CCT Total # of Minutes Spent Total Time Spent with Patient: Total time spent is greater than 50% in coordination of care (as documented) at patient's floor/unit and/or counseling patient: Coding Level of Care Code 35580 Subseq Hosp Care Lvl 3 Diagnoses Acute pain of left foot M79.672 DVT (deep venous thrombosis) I82.452 Affected thrombotic vein of extremity: peroneal Chronicity: acute DVT location: lower extremity Laterality: left CKD (chronic kidney disease), stage IV N18.4 Pericardial effusion I31.3 Chronic heart failure with preserved ejection fraction (HFpEF) I50.32 CAD (coronary artery disease) I25.10 Coronary Disease-Associated Artery/Lesion type: [place] artery [place] vs. transplanted heart: [place] heart Associated angina: without angina Hypertension I10 Hypertension type: essential hypertension Gastric ulcer K25.9 Type 2 diabetes mellitus E11.9 Paroxysmal atrial fibrillation I48.0 (1) DVT (deep venous thrombosis) Affected thrombotic vein of extremity: peroneal Chronicity: acute DVT location: lower extremity Laterality: left Qualified Code(s): I82.452 - Acute embolism and thrombosis of left peroneal vein (2) CAD (coronary artery disease) Coronary Disease-Associated Artery/Lesion type: [place] artery [place] vs. transplanted heart: [place] heart Associated angina: without angina Qualified Code(s): I25.10 - Atherosclerotic heart disease of [place] coronary artery with out angina pectoris (3) Hypertension Hypertension type: essential hypertension Qualified Code(s): I10 - Essential (primary) hypertension
[2021-06-18 08:41] LABS: Hematocrit (blood only) 31.5 % (37-47); Hemoglobin 10.6 g/dL (12.0-16.0); Mean Corpuscular Hgb Conc 33.7 g/dL (32-36); Mean Corpuscular Volume 86.1 fL (80-100); Mean Platelet Volume 10.4 fL (7.4-10.4); Platelet Count 407 K/uL (130-400); RDW Coefficient of Variation 14.5 % (11.5-14.5); RDW Standard Deviation 45.8 fL (36.4-46.3); Red Blood Count 3.66 M/uL (4.2-5.4); White Blood Count 14.79 K/uL (4.8-10.8)
[2021-06-18] MEDS: PANTOprazole 40 MG TAB PO SCH (08:58)
[2021-06-18] MEDS: APIXABAN 5 MG TABLET PO SCH (08:58)
[2021-06-18] MEDS: METOPROLOL SUCC 25MG EXT REL TAB PO SCH (08:58)
[2021-06-18] MEDS: CLOPIDOGREL BISULFATE 75 MG TAB PO SCH (09:00)
[2021-06-18] MEDS: OMEGA-3 (PURIFIED FISH OIL) 1 GM CAP PO SCH (09:00)
[2021-06-18] MEDS: FAMOTIDINE 10 MG TABLET PO SCH (09:01)
[2021-06-18] MEDS: ISOSORBIDE MONO EXTENDED REL 60 MG TABCR PO SCH (09:01)
[2021-06-18] MEDS: hydrALAZINE HCL 25 MG TAB PO SCH ×2 (09:02→13:28)
[2021-06-18] MEDS: NIFEdipine EXTENDED REL 30 MG TABCR PO SCH (09:03)
[2021-06-18] MEDS: INSULIN HUMAN LISPRO (humaLOG) 100 UNITS/ML VIAL SC SCH ×3 (09:04→17:49)
[2021-06-18] MEDS: INSULIN GLARGINE SOLOSTAR 100 UNITS/ML 3 ML PEN SQ SCH (09:05)
[2021-06-18 09:13] LABS: BUN Creatinine Ratio 21.9 (10-20); Calcium 9.1 mg/dl (8.5-10.1); Creatinine Clr Calc Pharmacy 15.9 ml/min; Est GFR (African American) 14.2 ml/min; Est GFR (Non-African American) 12.3 ml/min
--- NOTE | 2021-06-18 18:24 | Discharge Summary ---
Date of Service June 18, 2021 Admission HPI Per Admitting Provider Ms. Mcnulty is a 71 y/o female with PMHx of CAD S/P OK with Stent, Diastolic CHF, CKD Stage IV, YANDEL S/P Stent, HLD, HTN, T2DM, and Pericardial Effusion who presents to the ED c/o bilateral foot pain x 3 days. States both feet are bothersome however the L is greater than R. She notes she did hit her L pinky toe prior to this pain. Pain has been gradually increasing over the course of the past 3 days and now feels she cannot walk on it. She also noted the redness at the base of her great toe that started the same time as the pain. She reports the edema of her feet is not normal for her. She does report one episode of chills about 2 days ago. She does take diuretics and reports taking her medications today. Principal Diagnosis Peroneal Vein DVT; Paroxysmal Atrial Fibrillation Discharge Exam Constitutional WD/WN, vitals as above Eyes + anicteric sclerae; no conjunctival abnormality ENMT external ear and nose normal, oropharynx normal Neck trachea midline, no thyromegaly trachea midline Respiratory normal respiratory effort, lungs clear to auscultation Cardiovascular Rate/Rhythm: regular rate and regular rhythm Heart Sounds: normal S1, normal S2 and + murmur Vessels: no JVD Edema noted to LLE but improved; RLE resolved of edema Gastrointestinal (Abdomen) normal bowel sounds, soft, nontender, no hepatosplenomegaly Neurologic moves all extremities Psychiatric A+Ox3, euthymic affect Discharge Data Allergies Allergy/AdvReac Type Severity Reaction Status Date / Time heparin Allergy Hives Verified 06/12/21 16:36 insulin aspart Allergy Hives Verified 06/12/21 16:36 [From Novolog U-100 Insulin aspart] meperidine AdvReac Intermediate hallucinate Verified 06/12/21 16:36 s lisinopril AdvReac Mild COUGHING Verified 06/12/21 16:36 Consultations 06/12/21 17:33 ED Decision to Admit Stat 06/16/21 18:12 Consult Cardiology Routine Ordered Studies Foot X-Ray 06/12/21 14:33 XR foot LT min 3V routine HISTORY: 71 years-old Female pain, can not walk acute pain of the left foot COMPARISON: None TECHNIQUE: 3 views of the left foot FINDINGS: Mild diffuse soft tissue swelling. Mild multifocal osteoarthritis. Type I accessory navicular. No acute fracture or dislocation. Moderate sized enthesophytes of the calcaneus. Ill-defined linear lucency involves the fourth metatarsal neck. IMPRESSION: 1. Soft tissue swelling without definite acute fracture. 2. Transversely oriented linear lucency involving the fourth metatarsal neck is favored to be artifactual. A subtle acute nondisplaced fracture is considered less likely. ACT 112: Negative or not required by law. The above report was generated using voice recognition software. It may contain grammatical, syntax or spelling errors. Electronically signed by: Isac Fernandez M.D. 06/12/2021 3:13 PM Foot X-Ray 06/12/21 14:33 RIGHT FOOT 3 VIEWS CLINICAL HISTORY: Right foot pain. FINDINGS: 3 views of the right foot are compared to study dated 03/26/2021. The skeletal structures are osteopenic. No acute fracture is identified. There are tiny dorsal and plantar calcaneal enthesophytes. Mild osteoarthritic change is noted at the first metatarsophalangeal joint. Soft tissue edema seen throughout the forefoot, greatest dorsally. IMPRESSION: Soft tissue swelling with no fracture identified. Electronically signed by: Carlos A Nazario M.D. 06/12/2021 3:04 PM Venous Doppler Study 06/12/21 14:33 BILATERAL LOWER EXTREMITY VENOUS DOPPLER HISTORY: Bilateral leg swelling COMPARISON STUDY: None. FINDINGS: There is normal compressibility, flow, and augmentation within the the right lower extremity deep venous system. Nonocclusive thrombus within one of 2 left peroneal veins. The left common femoral, superficial femoral, popliteal, anterior tibial, posterior tibial veins are patent. IMPRESSION: 1. No DVT within the right lower extremity. 2. Nonocclusive deep vein thrombosis seen within one of 2 left peroneal veins. ACT 112: Negative or not required by law. Electronically signed by: Donovan Mendez M.D. 06/12/2021 4:[address] 06/12/21 15:[address] DOSE: 199.06 mGy.cm HISTORY: Left foot pain. Possible fourth metatarsal fracture on prior radiograph. TECHNIQUE: Multiaxial CT images of the left foot were performed and reformatted in the sagittal and coronal plane without the use of contrast. A dose lowering technique was utilized adhering to the principles of ALARA. COMPARISON: Left foot radiograph 06/12/2021. FINDINGS: Subcutaneous edema within the foot most pronounced along the dorsal lateral aspect. No acute fracture or dislocation. Specifically, the fourth metatarsal is intact. Mild degenerative changes within the left foot at the DIP and PIP joints. The flexor, extensor, and peroneal tendons appear intact. IMPRESSION: Subcutaneous edema within the left foot. No acute fractures. ACT 112: Negative or not required by law. Electronically signed by: Donovan Mendez M.D. 06/12/2021 4:37 PM Venous Doppler Study 06/14/21 11:01 US venous doppler LE LT HISTORY: 71 years-old Female Assess for peroneal thrombus propagation acute pain and swelling of the left lower leg COMPARISON: None TECHNIQUE: Multiple real-time sonographic images of the left lower extremity deep venous structures were obtained assessing grayscale appearance, color and spectral flow FINDINGS: Occlusive deep venous thrombus involves one of the duplicated peroneal veins which is long segment extending proximal to distal. Otherwise unremarkable exam. IMPRESSION: Left lower extremity deep venous thrombus as above. ACT 112: Negative or not required by law. The above report was generated using voice recognition software. It may contain grammatical, syntax or spelling errors. Electronically signed by: Isac Fernandez M.D. 06/14/2021 2:12 PM Venous Doppler Study 06/16/21 11:39 ULTRASOUND LEFT LOWER EXTREMITY VENOUS CLINICAL HISTORY: Leg pain and edema. DVT. COMPARISON STUDY: Left lower extremity venous ultrasound dated 06/14/2021 TECHNIQUE: Real-time, grayscale, and color Doppler sonography of the deep veins of the left lower extremity was performed from the inguinal crease to the calf. Compression and augmentation were utilized. FINDINGS: Deep venous thrombosis is again seen in the left calf within one of the peroneal veins. The remaining calf vessels are clear as visualized. No above knee deep venous thrombosis is identified. The common femoral, superficial femoral, and popliteal veins are patent and normally compressible. The greater saphenous vein and the profunda femoris vein at the junction with the common femoral vein are clear. IMPRESSION: 1. Unchanged deep venous thrombosis in the left calf as compared to study performed 2 days previously. 2. No above knee deep venous thrombosis is identified.. ACT 112: Negative or not required by law. Electronically signed by: Carlos A Nazario M.D. 06/16/2021 1:35 PM Hospital Course (1) Acute pain of left foot: - Pain improved and better mobility of feet/ankles - DDx - gout vs cellulitis vs DVT vs swelling - Tylenol PRN - Colchicine 0.6 mg x 1 dose given previously - uric acid was elevated; unlikely to aspirate that area - Stop Rocephin as completed 5 day course -- There are mild breaks in the skin of that foot at possibly a cause for infection (2) DVT (deep venous thrombosis): - Imaging does not reveal fracture - Initial U/S reveals a non-occlussive DVT in one of the two left peroneal veins -- Patient was on Plavix and ASA; recent admission for gastric ulcers however these did not show any signs of bleeding and patient reports no melena/bloody stools -- Initial consideration for routine US to assess - repeat U/S on May reveals the DVT is now occlusive and therefore likely going to further propagate - Discussed with cardiology and will hold ASA while utilizing Eliquis - Eliquis 10 mg BID x 7 days then 5 mg BID x 3 months - will need to monitor for bleeding/renal function (3) Paroxysmal atrial fibrillation: - Had a run of A Fib with RVR while in the hospital - aborted with IV Metoprolol - Pt reports multiple episodes over the years of a "dancing heart" - discussed the case with Dr. Montgomery - Initially planned for move to monitored bed however patient would like to stay in her current room - she does examine in NSR and can monitor HR - Plan for outpatient 30 day monitor - Stop Coreg and start Toprol XL 25 mg daily and can monitor as outpatient and titrate accordingly - may allow better HR control with less effect on BP as she was having low normals at night - She will be on Eliquis (DVT dosing initially) which will cover while undergoing 30 day monitoring - dependent on monitor findings could determine need for longer AC (4) CKD (chronic kidney disease), stage IV: - Increased to 4.45 possibly in setting of A Fib RVR and held diuretics - did improve to 3.54 on today's labs; Baseline Cr 3.5-3.9 - Follows with Dr. Sandoval and discussed the case on 16 June - will continue renal dosing and avoid nephrotoxins - Calcitriol MWF - She stopped this as it was causing muscle aches and does not use it at home (5) Pericardial effusion: - Stable - evaluated on previous admission with echocardiogram (6) Chronic heart failure with preserved ejection fraction (HFpEF): - EF 65-70% - Stopped Carvedilol 12.5 mg AM and 25 mg PM; Lasix 40 mg daily can resume tomorrow; Isosorbide mononitrate 60 mg daily; Spironolactone 25 mg daily can be resumed tomorrow - Overall appears euvolemic but having pedal edema that worsens with dangling legs - however this has been improving (7) CAD (coronary artery disease): - Stent placement in 2011; Stable - Plavix 75 mg daily; hold ASA while on AC (8) Hypertension: - Continue home medications - Hydralazine; Nifedipine - H/O YANDEL with stent and CKD contributing to BP control issues (9) Gastric ulcer: - Recently evaluated by EGD - no evidence of active or recent bleeding - Can stop famotidine 10 mg Q2D; Continue Pantoprazole 40 mg BID - Follow-up with [facility] as previously arranged (10) Type 2 diabetes mellitus: - Continue home regimen Total Time Total Time Spent Total Time Spent (In Minutes): Greater than 30 minutes Discharge Plan Discharge Items Patient Disposition: Home - Self-Care Reason For Visit: POSSIBLE CELLULITIS; PERONEAL DVT Discharge Diagnosis: Blood Clot in Leg and Atrial Fibrillation Activity: Per Instructions section Lifting: Gradually increase as tolerated Bathing: No limitations Exercise/Sports: Gradually increase as tolerated Driving/Machine Use: No limitations Weightbearing: Full weightbearing Non-emergency contact: Primary Care Provider Call non-emergency contact if: you have any medication questions, your symptoms worsen, your pain is worsening and you have a fever Follow-up/Referrals: Shay Hammond [Primary Care Provider] - (SPOKE TO DR Piedra HIMSELF ON 06/19/21. HE WILL CONTACT THE PATIENT.) Diet: Carb Consistent or DM2 Addtl Attending Provider Instructions: Pain in Foot: - There is a couple reasons why you would have pain in your foot. The toe was swollen and red with an elevated uric acid which is a sign of gout. Having a history of kidney impairment can put you at risk for gout. Luckily it responded to a dose of colchicine. - We also covered you with a course of antibiotics as the skin could have been infection. Luckily this resolved very nicely and we do not need to do any more antibiotics - The blood clot in the leg could have caused the pain and swelling as well. This leg will likely stay swollen for a bit of time until it recovers. You should try and elevate your legs when you can to help gravity pull some of the fluid out of the feet. Blood Clot: - You have a blood clot in the left peroneal vein. This is the small branch of vein that travels down from the calf to the ankle. - Sometimes we can just watch this however a repeat ultrasound shows that it got a bit bigger and we will need blood thinners. - You were placed on Eliquis. For the first seven days you take 10 mg twice a day -- Take the 10 mg twice a day until 20 June. On 21 June you will switch over to 5 mg twice a day for 3 months. You will need to follow-up with your family doctor with ongoing prescriptions -- The Eliquis will come in a starter pack. Since you had a few days in the hospital you will have more pills then you need initially. Today is Day 5 of 7 of the increased dose - As with any blood thinner you need to be careful with falls or injuries. If you cut yourself apply firm pressure for at least 5 minutes. If bleeding does not stop you need to go to the ER - Stop your Aspirin and only take Plavix while you are on your blood thinner (Eliquis) Paroxysmal Atrial Fibrillation: - You were found to have a rhythm called atrial fibrillation. Given your history of "heart dancing" we do not know if this has been going on awhile - Dr. Montgomery from your cardiology group wants to do a monitor to see how often this is happening. This will get mailed to you possibly Saturday/. If you do not receive it please call their office - STOP YOUR CARVEDILOL (COREG) - You were started on Metoprolol succinate (Toprol XL) 25 mg just once daily. This medication is to help heart rate control but is also a blood pressure medication. - As you use your monitor and follow-up with cardiology, they may increase this if need be. But for now this will be the dose to start - If you are found to have a lot of this rhythm, they may want you to stay on your blood thinner to help prevent stroke. This will be determined after you wear the monitor Kidney Function: - Your kidney number (creatinine) is 3.54 which is better then it was on your last hospital stay. Your electrolytes are good as well. This will have to be routinely monitored with Dr. Sandoval. - This number did bump up when you had your racing heart but has since resolved - You may resume your diuretics (Furosemide and Spironolactone) tomorrow. - I would avoid taking extra doses of the diuretics for a couple days. Unless you feel like you are getting short of breath. Continue your daily weights to monitor Stomach Ulcers: - You can stop the Famotidine. CONTINUE THE PANTOPRAZOLE twice a day for the ulcers unless your GI doctor stops them. I have put in a request to schedule a follow-up appointment with your family doctor. They usually call the offices on Saturday and should then contact you. If you have not heard from your family doctor's office by mid-week. Please call their office and state you were just hospitalized. I will send my hospital summary over to their office as well so they can see what we found while in the hospital. Pending Studies at Discharge: No Stand-Alone Forms: My [facility] [employer], Smoking Cessation Medications and DC Order Prescriptions: New Eliquis 5 mg (74 tabs) tablets,dose pack 5 - 10 mg PO BID Qty: 74 RF: 0 metoprolol succinate [Toprol XL] 25 mg Tablet Extended Release 24 Hr 25 mg PO QAM 30 Days Qty: 30 RF: 0 Continued Lantus Solostar U-100 Insulin 100 unit/mL (3 mL) insulin pen 20 unit SUBCUT QAM Qty: 30 RF: 3 hydralazine 25 mg tablet 25 mg PO TID Qty: 90 RF: 3 dicyclomine 10 mg capsule 10 mg PO TID PRN (Reason: Abdominal Discomfort) Qty: 12 RF: 0 isosorbide mononitrate 60 mg tablet extended release 24 hr 60 mg PO QAM Qty: 30 RF: 3 pantoprazole 40 mg tablet,delayed release (DR/EC) 40 mg PO BID Qty: 60 RF: 3 nifedipine 60 mg tablet extended release 24hr 60 mg PO DAILY Qty: 30 RF: 3 spironolactone 25 mg tablet 25 mg PO QAM Qty: 90 RF: 3 clopidogrel [Plavix] 75 mg tablet 75 mg PO QAM RF: 0 furosemide 20 mg tablet 40 mg PO QAM RF: 0 [id number] oil-vit D3 [Fish Oil-Vit D3] 300-1,000-1,000 mg-mg-unit Capsule 1 cap PO QAM RF: 0 insulin lispro [Humalog KwikPen Insulin] 100 unit/mL insulin pen 0 unit subcut BIDM MDD 75 units RF: 0 Discontinued calcitriol 0.25 mcg capsule 0.25 mcg PO 3XWK Qty: 30 RF: 3 famotidine 10 mg tablet 10 mg PO Q2D Qty: 14 RF: 1 aspirin 81 mg Tablet,Delayed Release (Dr/Ec) 81 mg PO QAM RF: 0 carvedilol 12.5 mg tablet 12.5 - 25 mg PO AMPM RF: 0 Discharge Orders: Discharge Order (Routine); Ordered 06/18/21 Ordered By: Pilar Gibbons/Other Patient Handouts: Discharge Instructions for Atrial ..., DVT Dc Admission Data Admit Date/Time: 06/12/21 18:56 Attending Provider: Jose Rangel Admit Provider: Rajesh Espinosa Primary Care Provider: Shay Hammond Other Providers: Rajesh Espinosa ; Chris Ortiz Other Interventions: Discharge Summary Assessment (RN) Last Done: 06/18/21 17:20 Supervising Physician Co-Signing Physician Notes Attending note: patient seen and examined with Pilar Joshi PA-C. I agree with her discharge summary. I personally reviewed the labs and imaging findings. patient doing better, pain significantly reduced in foot, treating peroneal DVT with Eliquis which will also cover anticoagulation for afib Cr is coming down, nearly at baseline, appreciate input from Dr. Sandoval - Left leg DVT: treat with Eliquis 10mg BID x 7 days then 5mg BID, treat for 3 months - Afib: rates better controlled, switched Coreg to Toprol 25mg daily, Eliquis for anticoagulation - CKD stage IV: close to needing HD, her primary care nurse has been discussing this with her for month, preparing her Cr did rise up to 4.4, coming back down now, < 4, making urine, electrolytes stable follow up with nephrology Coding Level of Care Code D/C DAY MANAGEMENT >30 MINS Diagnoses Acute pain of left foot M79.672 DVT (deep venous thrombosis) I82.452 Affected thrombotic vein of extremity: peroneal Chronicity: acute DVT location: lower extremity Laterality: left Paroxysmal atrial fibrillation I48.0 CKD (chronic kidney disease), stage IV N18.4 Pericardial effusion I31.3 Chronic heart failure with preserved ejection fraction (HFpEF) I50.32 CAD (coronary artery disease) I25.10 Associated angina: without angina Coronary Disease-Associated Artery/Lesion type: [place]re[place]ski artery [place] vs. transplanted heart: andreafski heart Hypertension I10 Hypertension type: essential hypertension Gastric ulcer K25.9 Type 2 diabetes mellitus E11.9
== END 2021-06-18 18:02 | disposition home or self-care (01) | DRG 300 ==
LOC: ED 14:01 → SUATTDRO 18:56 → 3N 18:56
DX: Z79.4 Long term (current) use of insulin; I31.3 Pericardial effusion (noninflammatory); D64.9 Anemia, unspecified; I25.2 Old myocardial infarction; I25.10 Atherosclerotic heart disease of native coronary artery without angina pectoris; L03.116 Cellulitis of left lower limb; I82.452 Acute embolism and thrombosis of left peroneal vein; I50.32 Chronic diastolic (congestive) heart failure; K57.90 Diverticulosis of intestine, part unspecified, without perforation or abscess without bleeding; N18.4 Chronic kidney disease, stage 4 (severe); M10.9 Gout, unspecified; Z95.5 Presence of coronary angioplasty implant and graft; I13.0 Hypertensive heart and chronic kidney disease with heart failure and stage 1 through stage 4 chronic kidney disease, or unspecified chronic kidney disease

== ENCOUNTER 2021-06-24 16:15 | Observation (INO) ==
[2021-06-24] MEDS ORDERED: ACETAMINOPHEN 1000 MG/100 ML IV IV STA (16:50)
--- NOTE | 2021-06-24 16:56 | Emergency Department Note ---
Impression & Plan Left leg pain, DVT (deep venous thrombosis), Left leg swelling, Tenosynovitis, Failure of outpatient treatment ED Provider Note NAME: CAMPOS CRAWFORD AGE: 71 SEX: F : 1950 ARRIVES VIA: Ambulance INFORMANT: [Patient] ED PROVIDER(S): [Carlos A Johnson MD] CHIEF COMPLAINT: Left ankle and foot pain. HISTORY OF PRESENT ILLNESS: The patient is a 71-year-old female who presents with increasing left foot and ankle pain for 3 days. She was admitted to our hospital for a DVT in this leg. She had a negative x-ray of the foot and a negative CT of the foot. The patient states that the pain is increasing and she states that she is concerned there could be a missed fracture. She is also worried that the clot in the leg has extended. She is currently on Eliquis. There has been no fever. No chills. There has been some increased swelling noted to the ankle and foot. She states that even with a walker, she can barely put any weight on the foot. The pain at times is quite severe although, she does not want anything more than Tylenol for pain. REVIEW OF SYSTEMS: See HPI for pertinent positives and negatives. A total of ten systems were reviewed and were otherwise negative. PMHx/PSHx: See Below SOCIAL HISTORY: See Below. PHYSICAL EXAM: GENERAL: Patient is in no acute distress. HEENT: No acute trauma, normocephalic atraumatic, mucous membranes moist, no nasal congestion, no scleral icterus. NECK: No stridor, no adenopathy, no meningismus, trachea is midline. LUNGS: Clear to auscultation bilaterally, no wheeze, no rhonchi, breath sounds equal. HEART: 2/6 systolic murmur, regular rate and rhythm. ABDOMEN: Soft, nontender, bowel sounds positive, no hernias, no peritonitis. EXTREMITIES: No cyanosis. There is some edema to the left ankle and foot. There is pain to palpate the foot and ankle. No real focal area of discomfort. There is some erythema to the base of the first toe at the MTP joint. Movement of this joint does cause some pain. No evidence for distal extremity neurovascular compromise. NEUROLOGIC: Oriented x 3, no acute motor or sensory deficits, no focal weakness. SKIN: No rash, no jaundice, no diaphoresis. DIFFERENTIAL DIAGNOSIS: Worsening DVT, failed outpatient treatment, cellulitis, stress fracture, missed fracture, gout, neurovascular compromise, compartment syndrome, among others. EMERGENCY DEPARTMENT COURSE/PROCEDURES: MEDICAL DECISION MAKING: There is a moderate leukocytosis which would be consistent with infection. No w orrisome anemia. There is a normal platelet count. Sed rate is quite high at 112. There is evidence for renal insufficiency but this is baseline when looking back at previous testing. Uric acid level is elevated at 9.7. There were some subtle liver enzyme elevations. C-reactive protein was quite high at over 7. Covid testing is pending. Left leg ultrasound shows that her DVT is basically unchanged. Left ankle and foot MRIs were performed. There was soft tissue swelling, tenosynovitis and a joint effusion. There was no fracture. The patient was given IV Tylenol for pain, she was given IV Unasyn for antibiotic coverage. She was given oral hydralazine as she was due for this medication. The patient has worsening left leg/foot pain and swelling. Her inflammatory markers are quite high. Her white count is rising. I am concerned about underlying infection. Gout is a concern as well. She cannot walk on the foot anymore and I do think a hospital stay is warranted. 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 The on-call hospitalist was consulted. Past Med/Surg History Medical History Acute pain of left foot CAD (coronary artery disease) Chronic heart failure with preserved ejection fraction (HFpEF) CKD (chronic kidney disease) Diverticulosis Elevated troponin History of stent insertion of renal artery 2014 Hyperlipidemia Hypertension Hypertensive emergency Leukocytosis LVH (left ventricular hypertrophy) Lymphedema Pedal edema Renal artery stenosis Status post myocardial infarction Vulvovaginal candidiasis Surgical History H/O heart artery stent Family History Other Hypertension Social History Smoking Status: Never smoker Second Hand Exposure: No; Hx Alcohol Use: No Hx Substance Use: No Preferred Language: Swedish Communication Ability: Effective Housing Inspectors Required: No Beliefs That Will Affect Care: None marital status: Single Current Living Situation: Family Current Living Situation Comment: lives with grandson How many Children do You have: 2 Feels Safe at Home: Yes Assistive Devices: Walker Allergies Allergies Allergy/AdvReac Type Severity Reaction Status Date / Time heparin Allergy Hives Verified 06/24/21 17:35 insulin aspart Allergy Hives Verified 06/24/21 17:35 [From Novolog U-100 Insulin aspart] meperidine AdvReac Intermediate hallucinate Verified 06/24/21 17:35 s lisinopril AdvReac Mild COUGHING Verified 06/24/21 17:35 Home Meds Home Medications Medication Instructions Recorded Confirmed clopidogrel 75 mg tablet (Plavix) 75 mg PO QAM 03/26/21 06/24/21 insulin lispro 100 unit/mL 0 unit SUBCUT TIDM MDD 75 units 05/26/21 06/24/21 subcutaneous pen (Humalog KwikPen (U-100) Insulin) [id number]-epa-fish oil-vit D3 300 1 cap PO QAM 05/26/21 06/24/21 mg-1,000 mg-1,000 unit capsule (Fish Oil-Vit D3) apixaban 5 mg (74 tabs) tablets in 5 mg PO BID 06/24/21 06/24/21 a dose pack (Eliquis) furosemide 40 mg tablet 40 mg PO DAILY 06/24/21 06/24/21 nifedipine 60 mg tablet,extended 60 mg PO DAILY 06/24/21 06/24/21 release 24 hr (Procardia XL) Previous Rx's Medication Instructions Recorded insulin glargine 100 unit/mL (3 20 unit SUBCUT QAM #30 ml 06/05/21 mL) subcutaneous pen (Lantus Solostar U-100 Insulin) dicyclomine 10 mg capsule 10 mg PO TID PRN #12 cap 06/07/21 hydralazine 25 mg tablet 25 mg PO TID #90 tab 06/07/21 isosorbide mononitrate 60 mg 60 mg PO QAM #30 tab 06/07/21 tablet,extended release 24 hr pantoprazole 40 mg tablet,delayed 40 mg PO BID #60 tab 06/07/21 release spironolactone 25 mg tablet 25 mg PO QAM #90 tab 06/07/21 metoprolol succinate 25 mg 25 mg PO QAM 30 Days #30 tab 06/18/21 tablet,extended release 24 hr (Toprol XL) Results & Data (ED) Vital Signs Vital Signs - 24 hr 06/24/21 16:18 06/24/21 16:30 06/24/21 17:27 Temperature 37.0 C Temperature Source Oral Pulse Rate 70 68 69 Pulse Rate from SpO2 Sensor 68 69 Respiratory Rate 16 23 21 Blood Pressure 137/75 236/89 H 199/85 H Blood Pressure Mean 95 138 123 Blood Pressure Position Sitting Pulse Oximetry 96 96 95 Oxygen Delivery Method Room Air Sepsis Recent Fever Within 48 Hours No Sepsis New/Unexplained Change in Mental Status No Sepsis Action Taken by Nursing No Action Required 06/24/21 17:30 06/24/21 18:01 06/24/21 20:07 Temperature Temperature Source Pulse Rate 71 70 67 Pulse Rate from SpO2 Sensor 71 65 Respiratory Rate 22 20 22 Blood Pressure 218/83 H 190/75 H 224/89 H Blood Pressure Mean 128 113 134 Blood Pressure Position Pulse Oximetry 95 96 98 Oxygen Delivery Method Room Air Room Air Sepsis Recent Fever Within 48 Hours Sepsis New/Unexplained Change in Mental Status Sepsis Action Taken by Shelter Medications Current Medication List: was personally reviewed by me Laboratory Data Attestation: I reviewed the patient's lab results. Result diagrams: 06/24/21 17:12 06/24/21 17:12 Lab Results 06/24/21 06/24/21 06/24/21 Range/Units 17:12 17:12 17:12 WBC 15.65 H (4.8-10.8) K/uL RBC 4.09 L (4.2-5.4) M/uL Hgb 11.7 L (12.0-16.0) g/dL Hct 35.8 L (37-47) % MCV 87.5 (80-100) fL MCH 28.6 (25-34) pg MCHC 32.7 (32-36) g/dL RDW Std Deviation 47.2 H (36.4-46.3) fL RDW Coeff of Ekaterina 14.8 H (11.5-14.5) % Plt Count 373 (130-400) K/uL MPV 10.8 H (7.4-10.4) fL Immature Gran % (Auto) 1.2 % Neut % (Auto) 77.5 % Lymph % (Auto) 9.6 % [place] % (Auto) 9.9 % Eos % (Auto) 1.5 % Baso % (Auto) 0.3 % Neut # (Auto) 12.12 H (1.4-6.5) K/uL Lymph # (Auto) 1.51 (1.2-3.4) K/uL [place] # (Auto) 1.55 H (0.11-0.59) K/uL Eos # (Auto) 0.24 (0-0.5) K/uL Baso # (Auto) 0.05 (0-0.2) K/uL Immature Gran # (Auto) 0.18 H (0.00-0.02) K/uL ESR 112 H (0-30) mm/hr Sodium 134 L (136-145) mmol/L Potassium 4.0 (3.5-5.1) mmol/L Chloride 105 (98-107) mmol/L Carbon Dioxide 21 (21-32) mmol/L Anion Gap 8.0 (3-11) BUN 72 H (7-18) mg/dl Creatinine 3.45 H (0.6-1.2) mg/dl Est Cr Clr Drug Dosing 16.1 ml/min Est GFR ( Amer) 14.7 ml/min Est GFR (Non-Af Amer) 12.7 ml/min BUN/Creatinine Ratio 20.7 H (10-20) Glucose 226 H (70-99) mg/dl Uric Acid 9.7 H (2.6-7.2) mg/dl Calcium 9.4 (8.5-10.1) mg/dl Total Bilirubin 0.3 (0.2-1) mg/dl AST 8 L (15-37) U/L ALT 16 (12-78) U/L Alkaline Phosphatase 146 H (45-117) U/L C-Reactive Protein 7.21 H (0-0.29) mg/dl Total Protein 7.9 (6.4-8.2) gm/dl Albumin 2.6 L (3.4-5.0) gm/dl Globulin 5.3 H (2.5-4.0) gm/dl Albumin/Globulin Ratio 0.5 L (0.9-2) COVID-19 Eval Order 06/24/21 Range/Units 20:08 WBC (4.8-10.8) K/uL RBC (4.2-5.4) M/uL Hgb (12.0-16.0) g/dL Hct (37-47) % MCV (80-100) fL MCH (25-34) pg MCHC (32-36) g/dL RDW Std Deviation (36.4-46.3) fL RDW Coeff of Ekaterina (11.5-14.5) % Plt Count (130-400) K/uL MPV (7.4-10.4) fL Immature Gran % (Auto) % Neut % (Auto) % Lymph % (Auto) % [place] % (Auto) % Eos % (Auto) % Baso % (Auto) % Neut # (Auto) (1.4-6.5) K/uL Lymph # (Auto) (1.2-3.4) K/uL [place] # (Auto) (0.11-0.59) K/uL Eos # (Auto) (0-0.5) K/uL Baso # (Auto) (0-0.2) K/uL Immature Gran # (Auto) (0.00-0.02) K/uL ESR (0-30) mm/hr Sodium (136-145) mmol/L Potassium (3.5-5.1) mmol/L Chloride (98-107) mmol/L Carbon Dioxide (21-32) mmol/L Anion Gap (3-11) BUN (7-18) mg/dl Creatinine (0.6-1.2) mg/dl Est Cr Clr Drug Dosing ml/min Est GFR ( Amer) ml/min Est GFR (Non-Af Amer) ml/min BUN/Creatinine Ratio (10-20) Glucose (70-99) mg/dl Uric Acid (2.6-7.2) mg/dl Calcium (8.5-10.1) mg/dl Total Bilirubin (0.2-1) mg/dl AST (15-37) U/L ALT (12-78) U/L Alkaline Phosphatase (45-117) U/L C-Reactive Protein (0-0.29) mg/dl Total Protein (6.4-8.2) gm/dl Albumin (3.4-5.0) gm/dl Globulin (2.5-4.0) gm/dl Albumin/Globulin Ratio (0.9-2) COVID-19 Eval Order Covid19 at [facility] Administered Medications Discontinued Medications Acetaminophen (Acetaminophen 1000 Mg/100 Ml Iv) 1,000 mg IV NOW STA Stop: 06/24/21 16:51 Last Admin: 06/24/21 17:12 Dose: 1,000 mg Documented by: [id number] Hydralazine HCl (Hydralazine Hcl 25 Mg Tab) 25 mg PO NOW STA Stop: 06/24/21 20:33 Last Admin: 06/24/21 20:47 Dose: 25 mg Documented by: [id number] Ampicillin Sodium/Sulbactam Sodium 3,000 mg/ Sodium Chloride 108 mls @ 200 mls/hr IV NOW STA; Protocol Stop: 06/24/21 20:33 Last Admin: 06/24/21 20:20 Dose: 200 mls/hr Documented by: [id number] Imaging Data Radiologist's Impression: Ankle MRI 06/24/21 16:50 MRI OF THE LEFT FOOT WITHOUT IV CONTRAST; MRI OF THE LEFT ANKLE WITHOUT IV CONTRAST CLINICAL HISTORY: Left foot pain and swelling. COMPARISON STUDY: Radiographs and CT of the left foot dated 06/12/2021. TECHNIQUE: MRI of the left foot and MRI of the left ankle are performed utilizing various T1 and T2 sequences in the axial, sagittal, and coronal planes. IV contrast was not administered for these examinations. FINDINGS: There is nonspecific marrow edema within the fifth middle and distal phalanges with no definite fracture identified. No additional foci of marrow e mic are seen throughout the foot or ankle. There is no definitive evidence of fracture. The ankle mortise is intact. No osteochondral defect is seen in the talar dome. There is a large ankle joint effusion. The Achilles tendon is normal in morphology and signal intensity. The anterior, posterior, and peroneal tendons are intact. There is tenosynovitis of the peroneus longus tendon, as well as significant tenosynovitis of the tibialis posterior, flexor digitorum longus, and the flexor hallucis longus. The anterior talofibular ligament is intact. There is age indeterminant tearing of the anterior tibiofibular ligament which is likely chronic. The deltoid ligament appears intact. Suspect age i ndeterminant tearing of the calcaneofibular ligament. Superficial and deep soft tissue edema is present throughout the foot and ankle, greatest along the dorsal aspect of the foot. The plantar fascia is intact. The Lisfranc ligament appears maintained. The joint spaces of the foot are preserved. There is nonspecific myositis of the regional musculature. There is no evidence of organized fluid collection to suggest abscess. IMPRESSION: 1. There is no clear evidence of fracture involving the left foot or ankle. 2. Nonspecific marrow edema is seen within the middle and distal phalanges of the fifth toe. No fracture line is identified. Correlate for point tenderness. 3. Ankle joint effusion. 4. Diffuse soft tissue edema is seen throughout the foot and ankle. Correlate clinically for evidence of synovitis. No organized fluid collection is seen to suggest abscess. 5. The ankle tendons are intact, noting significant tenosynovitis of the peroneus longest tendon as well as the flexor tendons. 6. There is nonspecific myositis of the regional musculature. 7. There is age indeterminant/possibly chronic tearing of the anterior tibiofibular and calcaneofibular ligaments. Electronically signed by: Carlos A Nazario M.D. 06/24/2021 7:42 PM Foot MRI 06/24/21 16:50 MRI OF THE LEFT FOOT WITHOUT IV CONTRAST; MRI OF THE LEFT ANKLE WITHOUT IV CONTRAST CLINICAL HISTORY: Left foot pain and swelling. COMPARISON STUDY: Radiographs and CT of the left foot dated 06/12/2021. TECHNIQUE: MRI of the left foot and MRI of the left ankle are performed utilizing various T1 and T2 sequences in the axial, sagittal, and coronal planes. IV contrast was not administered for these examinations. FINDINGS: There is nonspecific marrow edema within the fifth middle and distal phalanges with no definite fracture identified. No additional foci of marrow edema are seen throughout the foot or ankle. There is no definitive evidence of fracture. The ankle mortise is intact. No osteochondral defect is seen in the talar dome. There is a large ankle joint effusion. The Achilles tendon is normal in morphology and signal intensity. The anterior, posterior, and peroneal tendons are intact. There is tenosynovitis of the peroneus longus tendon, as well as significant tenosynovitis of the tibialis posterior, flexor digitorum longus, and the flexor hallucis longus. The anterior talofibular ligament is intact. There is age indeterminant tearing of the anterior tibiofibular ligament which is likely chronic. The deltoid ligament appears intact. Suspect age indeterminant tearing of the calcaneofibular ligament. Superficial and deep soft tissue edema is present throughout the foot and ankle, greatest along the dorsal aspect of the foot. The plantar fascia is intact. The Lisfranc ligament appears maintained. The joint spaces of the foot are preserved. There is nonspecific myositis of the regional musculature. There is no evidence of organized fluid collection to suggest abscess. IMPRESSION: 1. There is no clear evidence of fracture involving the left foot or ankle. 2. Nonspecific marrow edema is seen within the middle and distal phalanges of the fifth toe. No fracture line is identified. Correlate for point tenderness. 3. Ankle joint effusion. 4. Diffuse soft tissue edema is seen throughout the foot and ankle. Correlate clinically for evidence of synovitis. No organized fluid collection is seen to suggest abscess. 5. The ankle tendons are intact, noting significant tenosynovitis of the peroneus longest tendon as well as the flexor tendons. 6. There is nonspecific myositis of the regional musculature. 7. There is age indeterminant/possibly chronic tearing of the anterior tibiofibular and calcaneofibular ligaments. Electronically signed by: Carlos A Nazario M.D. 06/24/2021 7:42 PM Venous Doppler Study 06/24/21 16:50 ULTRASOUND LEFT LOWER EXTREMITY VENOUS CLINICAL HISTORY: Leg pain and swelling. DVT. COMPARISON STUDY: Left lower extremity venous ultrasounds dated 06/16/2021 and 06/14/2021 TECHNIQUE: Real-time, grayscale, and color Doppler sonography of the deep veins of the left lower extremity was performed from the inguinal crease to the calf. Compression and augmentation were utilized. FINDINGS: Occlusive deep venous thrombosis is again seen in the left calf within one of the peroneal veins. The remaining calf vessels are clear as visualized. No above knee deep venous thrombosis is identified. The common femoral, superficial femoral, and popliteal veins are patent and normally compressible. The greater saphenous vein and the profunda femoris vein at the junction with the common femoral vein are clear. IMPRESSION: 1. Unchanged deep venous thrombosis in the left calf as compared to recent prior studies. 2. No above knee deep venous thrombosis is identified.. ACT 112: Negative or not required by law. Electronically signed by: Carlos A Nazario M.D. 06/24/2021 7:43 PM Discharge Plan Visit Data Chief Complaint: Foot Injury/Pain Stated Complaint: blood clot ED Provider: Carlos A Johnson Discharge Problem: Left leg pain, DVT (deep venous thrombosis), Left leg swelling, Tenosynovitis, Failure of outpatient treatment Patient Disposition: Admitted As Inpatient Condition: Fair Forms Stand Alone Forms: [facility] Prescriptions Prescriptions: No Action Lantus Solostar U-100 Insulin 100 unit/mL (3 mL) insulin pen 20 unit SUBCUT QAM Qty: 30 RF: 3 hydralazine 25 mg tablet 25 mg PO TID Qty: 90 RF: 3 dicyclomine 10 mg capsule 10 mg PO TID PRN (Reason: Abdominal Discomfort) Qty: 12 RF: 0 isosorbide mononitrate 60 mg tablet extended release 24 hr 60 mg PO QAM Qty: 30 RF: 3 pantoprazole 40 mg tablet,delayed release (DR/EC) 40 mg PO BID Qty: 60 RF: 3 spironolactone 25 mg tablet 25 mg PO QAM Qty: 90 RF: 3 clopidogrel [Plavix] 75 mg tablet 75 mg PO QAM RF: 0 gp-2-fwn-epa-fish oil-vit D3 [Fish Oil-Vit D3] 300-1,000-1,000 mg-mg-unit Capsule 1 cap PO QAM RF: 0 insulin lispro [Humalog KwikPen Insulin] 100 unit/mL insulin pen 0 unit subcut TIDM MDD 75 units RF: 0 metoprolol succinate [Toprol XL] 25 mg Tablet Extended Release 24 Hr 25 mg PO QAM 30 Days Qty: 30 RF: 0 furosemide 40 mg tablet 40 mg PO DAILY RF: 0 nifedipine [Procardia XL] 60 mg tablet extended release 24hr 60 mg PO DAILY RF: 0 Eliquis 5 mg (74 tabs) tablets,dose pack 5 mg PO BID RF: 0 Referrals Referrals: Shay Hammond [Primary Care Provider] -
[2021-06-24 17:26] LABS: Basophils # (auto) 0.05 K/uL (0-0.2); Basophils % (auto) 0.3 %; Eosinophils # (auto) 0.24 K/uL (0-0.5); Eosinophils % (auto) 1.5 %; Hematocrit (blood only) 35.8 % (37-47); Hemoglobin 11.7 g/dL (12.0-16.0); Immature Granulocytes # (auto) 0.18 K/uL (0.00-0.02); Immature Granulocytes % (auto) 1.2 %; Lymphocytes # (auto) 1.51 K/uL (1.2-3.4); Lymphocytes % (auto) 9.6 %; Mean Corpuscular Hemoglobin 28.6 pg (25-34); Mean Corpuscular Hgb Conc 32.7 g/dL (32-36); Mean Corpuscular Volume 87.5 fL (80-100); Mean Platelet Volume 10.8 fL (7.4-10.4); Monocytes # (auto) 1.55 K/uL (0.11-0.59); Monocytes % (auto) 9.9 %; Neutrophils # (auto) 12.12 K/uL (1.4-6.5); Neutrophils % (auto) 77.5 %; Platelet Count 373 K/uL (130-400); RDW Coefficient of Variation 14.8 % (11.5-14.5); RDW Standard Deviation 47.2 fL (36.4-46.3); Red Blood Count 4.09 M/uL (4.2-5.4); White Blood Count 15.65 K/uL (4.8-10.8)
[2021-06-24 17:55] LABS: Albumin Level 2.6 gm/dl (3.4-5.0); BUN Creatinine Ratio 20.7 (10-20); C Reactive Protein 7.21 mg/dl (0-0.29); Calcium 9.4 mg/dl (8.5-10.1); Creatinine Clr Calc Pharmacy 16.1 ml/min; Est GFR (African American) 14.7 ml/min; Est GFR (Non-African American) 12.7 ml/min
[2021-06-24 18:01] LABS: Albumin Globulin Ratio 0.5 (0.9-2); Bilirubin,Total 0.3 mg/dl (0.2-1); Globulin 5.3 gm/dl (2.5-4.0); Total Protein 7.9 gm/dl (6.4-8.2); Uric Acid 9.7 mg/dl (2.6-7.2)
--- NOTE | 2021-06-24 19:43 | Magnetic Resonance Report ---
MRI OF THE LEFT FOOT WITHOUT IV CONTRAST; MRI OF THE LEFT ANKLE WITHOUT IV CONTRAST CLINICAL HISTORY: Left foot pain and swelling. COMPARISON STUDY: Radiographs and CT of the left foot dated 06/12/2021. TECHNIQUE: MRI of the left foot and MRI of the left ankle are performed utilizing various T1 and T2 s equences in the axial, sagittal, and coronal planes. IV contrast was not administered for these exami nations. FINDINGS: There is nonspecific marrow edema within the fifth middle and distal phalanges with no defi nite fracture identified. No additional foci of marrow edema are seen throughout the foot or ankle. T here is no definitive evidence of fracture. The ankle mortise is intact. No osteochondral defect is s een in the talar dome. There is a large ankle joint effusion. The Achilles tendon is normal in morpho logy and signal intensity. The anterior, posterior, and peroneal tendons are intact. There is tenosyn ovitis of the peroneus longus tendon, as well as significant tenosynovitis of the tibialis posterior, flexor digitorum longus, and the flexor hallucis longus. The anterior talofibular ligament is intact . There is age indeterminant tearing of the anterior tibiofibular ligament which is likely chronic. T he deltoid ligament appears intact. Suspect age indeterminant tearing of the calcaneofibular ligament . Superficial and deep soft tissue edema is present throughout the foot and ankle, greatest along the dorsal aspect of the foot. The plantar fascia is intact. The Lisfranc ligament appears maintained. T he joint spaces of the foot are preserved. There is nonspecific myositis of the regional musculature. There is no evidence of organized fluid collection to suggest abscess. IMPRESSION: 1. There is no clear evidence of fracture involving the left foot or ankle. 2. Nonspecific marrow edema is seen within the middle and distal phalanges of the fifth toe. No fract ure line is identified. Correlate for point tenderness. 3. Ankle joint effusion. 4. Diffuse soft tissue edema is seen throughout the foot and ankle. Correlate clinically for evidence of synovitis. No organized fluid collection is seen to suggest abscess. 5. The ankle tendons are intact, noting significant tenosynovitis of the peroneus longest tendon as w ell as the flexor tendons. 6. There is nonspecific myositis of the regional musculature. 7. There is age indeterminant/possibly chronic tearing of the anterior tibiofibular and calcaneofibul ar ligaments. Electronically signed by: Carlos A Nazario M.D. 06/24/2021 7:42 PM
--- NOTE | 2021-06-24 19:44 | Ultrasound Report ---
ULTRASOUND LEFT LOWER EXTREMITY VENOUS CLINICAL HISTORY: Leg pain and swelling. DVT. COMPARISON STUDY: Left lower extremity venous ultrasounds dated 06/16/2021 and 06/14/2021 TECHNIQUE: Real-time, grayscale, and color Doppler sonography of the deep veins of the left lower ext remity was performed from the inguinal crease to the calf. Compression and augmentation were utilized . FINDINGS: Occlusive deep venous thrombosis is again seen in the left calf within one of the peroneal veins. The remaining calf vessels are clear as visualized. No above knee deep venous thrombosis is id entified. The common femoral, superficial femoral, and popliteal veins are patent and normally compre ssible. The greater saphenous vein and the profunda femoris vein at the junction with the common femo ral vein are clear. IMPRESSION: 1. Unchanged deep venous thrombosis in the left calf as compared to recent prior studies. 2. No above knee deep venous thrombosis is identified.. ACT 112: Negative or not required by law. Electronically signed by: Carlos A Nazario M.D. 06/24/2021 7:43 PM
[2021-06-24] MEDS ORDERED: AMPICILLIN/SULBACTAM SOD 3,000 MG in 0.9 % SODIUM CHLORIDE 100 ML IV STA (20:01)
[2021-06-24] MEDS ORDERED: hydrALAZINE HCL 25 MG TAB PO STA (20:32)
--- NOTE | 2021-06-24 21:22 | History & Physical Report ---
Date of Service June 24, 2021 By CMS guidelines, a determination that the admission or continued stay is not medically necessary has been made by a member of the UR committee and a physician for this hospital stay, therefore a Code 44 will be completed and the Inpatient admission will be changed to outpatient. Assessment & Plan (1) Gout attack: Plan: Patient is a 71 year old female with PMHx DM2, Atrial fibrillation, HLD, CAD x2 stent, GERD, HTN, recent LLE DVT who presents with 3 day history of L foot and ankle swelling and pain. Patient was recently admitted from 06/12-06/18/21 for similar concerns and had been treated with CTX, a dose of colchicine, and started on Eliquis for her DVT. L foot/ankle pain secondary to Gout vs Tenosynovitis -Suspect at this time that pain is more secondary to a gout attack over infection -Current Uric aid level 9.7 this admission -MRI Foot/Ankle without evidence of acute fracture. Noting concerns of synovitis in addition to tenosynovitis of the peroneus longest and flexor tendons. -Recent admission from 06/12-06/18/21 for similar symptoms and treated with CTX and colchicine at that time -Due to patient's renal function, will avoid further colchicine or NSAIDs -Start Solu-medrol 20mg q8h IV, likely transition to PO prednisone at discharge for acute gout flair -Consider starting patient on Uloric once flare resolved for long-term gout prevention -Discussed with patient in regards to dietary changes at home (reducing beef, shellfish, etc intake). Patient will likely require further counseling prior to discharge -Received 1 dose of Unasyn in the ED, will hold on further abx at this time, though can consider CTX for tenosynovitis if symptoms do not improve with antiinflammatories DVT -Repeat Venous doppler noting "Occlusive deep venous thrombosis is again seen in the left calf within one of the peroneal veins" -Continue Eliquis 5mg BID Hypertension and HFpEF -With current hypertensive urgency of 217/80 without features of headache, visual changes, neck pain -Will give 25mg Metoprolol tartrate tonight in addition to the 25mg Hydralazine given in the ED -Continue home Lasix 40mg Qd -Continue home Hydralazine 25mg TID -Continue home Isosorbide Mononitrate 60mg QD -Continue home Nifedipine 60mg QD -Continue home Spironolactone 25mg QD -Continue home Metoprolol Succinate 25mg QD - may require further up-titration for BP control as HR allows CAD -Continue home Plavix -Continue to hold ASA while on Eliquis GERD -Continue home Pantoprazole CKD Stage IV -Cr 3.45, near baseline -Continue to monitor with diuretic use DM2 -SSI and basal bolus while inpatient -Will request glycemic consult while patient is on steroids Dispo: Med/Surg FEN: DM2 diet DVT: Eliquis BID Code: Full (2) Left leg pain: (3) DVT (deep venous thrombosis): (4) Left leg swelling: (5) Tenosynovitis: (6) Type 2 diabetes mellitus: (7) Gastric ulcer: (8) CKD (chronic kidney disease), stage IV: History of Present Illness Chief Complaint: L foot and ankle pain/swelling Primary Care Provider: Shay Hammond Patient is a 71 year old female with PMHx DM2, Atrial fibrillation, HLD, CAD x2 stent, GERD, HTN, recent LLE DVT who presents with 3 day history of L foot and ankle swelling and pain. Patient was recently admitted from 06/12-06/18/21 for similar concerns and had been treated with CTX, a dose of colchicine, and started on Eliquis for her DVT. Patient states that the first couple of days after discharge she felt well, however, her pain resumed again worse in the posterior ankle and the great toe in the L foot. She notes that she was concerned that the clot may have been worsening and came to the ED for reevaluation. She state she has been able to walk on the foot, however, it is limited by pain and she has been using a walker to help take pressure off of the foot. She does endorse a diet which includes beef and seafood. Denies any alcohol use. Currently notes that her L foot pain is a "126/10" but would prefer tylenol for pain management in lieu of other analgesics. She denies any fever, chills, SOB, chest pain, abdominal pain, headache, visual changes, upper or lower extremity weakness. Med Hx: DM2, Atrial fibrillation, HLD, CAD x2 stent, GERD, HTN, recent LLE DVT Surg Hx: Cardiac stent x2, R renal artery stent x1 Soc Hx: Denies tobacco, alcohol, or illicit drug use Fam Hx: Denies family history of gout or DVTs/PEs Allergies Allergy/AdvReac Type Severity Reaction Status Date / Time heparin Allergy Hives Verified 06/24/21 17:35 insulin aspart Allergy Hives Verified 06/24/21 17:35 [From Novolog U-100 Insulin aspart] meperidine AdvReac Intermediate hallucinate Verified 06/24/21 17:35 s lisinopril AdvReac Mild COUGHING Verified 06/24/21 17:35 Home Medications Medication Instructions Recorded Confirmed Type clopidogrel 75 mg tablet (Plavix) 75 mg PO QAM 03/26/21 06/24/21 History insulin lispro 100 unit/mL 0 unit SUBCUT TIDM MDD 75 units 05/26/21 06/24/21 History subcutaneous pen (Humalog KwikPen (U-100) Insulin) [id number] oil-vit D3 300 1 cap PO QAM 05/26/21 06/24/21 History mg-1,000 mg-1,000 unit capsule (Fish Oil-Vit D3) insulin glargine 100 unit/mL (3 20 unit SUBCUT QAM #30 ml 06/05/21 06/24/21 Rx mL) subcutaneous pen (Lantus Solostar U-100 Insulin) dicyclomine 10 mg capsule 10 mg PO TID PRN #12 cap 06/07/21 06/24/21 Rx hydralazine 25 mg tablet 25 mg PO TID #90 tab 06/07/21 06/24/21 Rx isosorbide mononitrate 60 mg 60 mg PO QAM #30 tab 06/07/21 06/24/21 Rx tablet,extended release 24 hr pantoprazole 40 mg tablet,delayed 40 mg PO BID #60 tab 06/07/21 06/24/21 Rx release spironolactone 25 mg tablet 25 mg PO QAM #90 tab 06/07/21 06/24/21 Rx metoprolol succinate 25 mg 25 mg PO QAM 30 Days #30 tab 06/18/21 06/24/21 Rx tablet,extended release 24 hr (Toprol XL) apixaban 5 mg (74 tabs) tablets in 5 mg PO BID 06/24/21 06/24/21 History a dose pack (Eliquis) furosemide 40 mg tablet 40 mg PO DAILY 06/24/21 06/24/21 History nifedipine 60 mg tablet,extended 60 mg PO DAILY 06/24/21 06/24/21 History release 24 hr (Procardia XL) prednisone 10 mg tablet See Rx Instructions .ROUTE 06/25/21 Rx .COMPLEX #10 tab Past Med/Surg History Medical History Acute pain of left foot CAD (coronary artery disease) Chronic heart failure with preserved ejection fraction (HFpEF) CKD (chronic kidney disease) Diverticulosis Elevated troponin History of stent insertion of renal artery 2014 Hyperlipidemia Hypertension Hypertensive emergency Leukocytosis LVH (left ventricular hypertrophy) Lymphedema Pedal edema Renal artery stenosis Status post myocardial infarction Vulvovaginal candidiasis Surgical History H/O heart artery stent Family History Other Hypertension Social History Smoking Status: Never smoker Second Hand Exposure: No; Hx Alcohol Use: No Hx Substance Use: No Preferred Language: Ukrainian Communication Ability: Effective Digital Designer Required: No Beliefs That Will Affect Care: None marital status: Single Current Living Situation: Family Current Living Situation Comment: Lives with grandson How many Children do You have: 2 Other Information That Helps Us Care for You: No Feels Safe at Home: Yes Safety Concerns: Feels Safe At This Time Assistive Devices: Glasses Assistive Devices Comment: reading classes Review of Systems Review of Systems: ROS as above in subjective Physical Exam Constitutional: well developed, well nourished and cooperative; no acute distress Eyes: PERRL, conjunctivae normal, anicteric sclerae ENMT: external ear and nose normal, oropharynx normal Neck: trachea midline, no thyromegaly Respiratory: normal respiratory effort; no cough Auscultation: lungs clear to auscultation bilaterally; no diminished lung sounds, no crackles, no rales and no wheezes Cardiovascular: Rate/Rhythm: regular rate and regular rhythm Heart Sounds: normal S1, normal S2 and + murmur (2-3/6 [place] ); no cardiac rub Vessels: no JVD Extremities: + calf tenderness (L calf tenderness ) and + edema Gastrointestinal (Abdomen): Inspection/Auscultation: abdomen normal to inspection and normal bowel sounds; abdomen not distended Percussion/Palpation: abdomen soft; abdomen nontender, no guarding and abdomen not rigid Musculoskeletal: no cyanosis or clubbing, extremities motor strength 5/5 Head/Neck/Chest: normocephalic and head atraumatic L ankle swollen and tender to palpation, worse in the posterior aspect along the achilles tendon. Dorsalis pedis and tibialis anterior pulses palpable Sensation intact Strength testing 5/5, limited secondary to pain with dorsiflexion and plantarflexion of the L foot Tenderness at the L foot MTP Skin: no rashes, warm and dry Psychiatric: A+Ox3, euthymic affect Results & Data Results & Data ([facility]) Vital Signs (Past 12 Hours) Vital Signs Temp Pulse Resp BP Pulse Ox 06/24/21 20:07 67 22 224/89 H 98 06/24/21 18:01 70 20 190/75 H 96 06/24/21 17:30 71 22 218/83 H 95 06/24/21 17:27 69 21 199/85 H 95 06/24/21 16:30 68 23 236/89 H 96 06/24/21 16:18 37.0 C 70 16 137/75 96 Laboratory Results Laboratory Results - last 24 hr 06/24/21 06/24/21 06/24/21 17:12 17:12 17:12 WBC 15.65 H RBC 4.09 L Hgb 11.7 L Hct 35.8 L MCV 87.5 MCH 28.6 MCHC 32.7 RDW Std Deviation 47.2 H RDW Coeff of Ekaterina 14.8 H Plt Count 373 MPV 10.8 H Immature Gran % (Auto) 1.2 Neut % (Auto) 77.5 Lymph % (Auto) 9.6 [place] % (Auto) 9.9 Eos % (Auto) 1.5 Baso % (Auto) 0.3 Neut # (Auto) 12.12 H Lymph # (Auto) 1.51 [place] # (Auto) 1.55 H Eos # (Auto) 0.24 Baso # (Auto) 0.05 Immature Gran # (Auto) 0.18 H ESR 112 H Sodium 134 L Potassium 4.0 Chloride 105 Carbon Dioxide 21 Anion Gap 8.0 BUN 72 H Creatinine 3.45 H Est Cr Clr Drug Dosing 16.1 Est GFR ( Amer) 14.7 Est GFR (Non-Af Amer) 12.7 BUN/Creatinine Ratio 20.7 H Glucose 226 H Uric Acid 9.7 H Calcium 9.4 Total Bilirubin 0.3 AST 8 L ALT 16 Alkaline Phosphatase 146 H C-Reactive Protein 7.21 H Total Protein 7.9 Albumin 2.6 L Globulin 5.3 H Albumin/Globulin Ratio 0.5 L Procalcitonin COVID-19 Eval Order SARS-CoV-2 (PCR) 06/24/21 06/24/21 06/24/21 17:17 20:08 20:08 WBC RBC Hgb Hct MCV MCH MCHC RDW Std Deviation RDW Coeff of Ekaterina Plt Count MPV Immature Gran % (Auto) Neut % (Auto) Lymph % (Auto) [place] % (Auto) Eos % (Auto) Baso % (Auto) Neut # (Auto) Lymph # (Auto) [place] # (Auto) Eos # (Auto) Baso # (Auto) Immature Gran # (Auto) ESR Sodium Potassium Chloride Carbon Dioxide Anion Gap BUN Creatinine Est Cr Clr Drug Dosing Est GFR ( Amer) Est GFR (Non-Af Amer) BUN/Creatinine Ratio Glucose Uric Acid Calcium Total Bilirubin AST ALT Alkaline Phosphatase C-Reactive Protein Total Protein Albumin Globulin Albumin/Globulin Ratio Procalcitonin < 0.05 COVID-19 Eval Order Covid19 at [facility] SARS-CoV-2 (PCR) NEGATIVE Diagnostic Findings Impressions Ankle MRI 06/24/21 16:50 MRI OF THE LEFT FOOT WITHOUT IV CONTRAST; MRI OF THE LEFT ANKLE WITHOUT IV CONTRAST CLINICAL HISTORY: Left foot pain and swelling. COMPARISON STUDY: Radiographs and CT of the left foot dated 06/12/2021. TECHNIQUE: MRI of the left foot and MRI of the left ankle are performed utilizing various T1 and T2 sequences in the axial, sagittal, and coronal planes. IV contrast was not administered for these examinations. FINDINGS: There is nonspecific marrow edema within the fifth middle and distal phalanges with no definite fracture identified. No additional foci of marrow edema are seen throughout the foot or ankle. There is no definitive evidence of fracture. The ankle mortise is intact. No osteochondral defect is seen in the talar dome. There is a large ankle joint effusion. The Achilles tendon is normal in morphology and signal intensity. The anterior, posterior, and peroneal tendons are intact. There is tenosynovitis of the peroneus longus tendon, as well as significant tenosynovitis of the tibialis posterior, flexor digitorum longus, and the flexor hallucis longus. The anterior talofibular ligament is intact. There is age indeterminant tearing of the anterior tibiofibular ligament which is likely chronic. The deltoid ligament appears intact. Suspect age indeterminant tearing of the calcaneofibular ligament. Superficial and deep soft tissue edema is present throughout the foot and ankle, greatest along the dorsal aspect of the foot. The plantar fascia is intact. The Lisfranc ligament appears maintained. The joint spaces of the foot are preserved. There is nonspecific myositis of the regional musculature. There is no evidence of organized fluid collection to suggest abscess. IMPRESSION: 1. There is no clear evidence of fracture involving the left foot or ankle. 2. Nonspecific marrow edema is seen within the middle and distal phalanges of the fifth toe. No fracture line is identified. Correlate for point tenderness. 3. Ankle joint effusion. 4. Diffuse soft tissue edema is seen throughout the foot and ankle. Correlate clinically for evidence of synovitis. No organized fluid collection is seen to suggest abscess. 5. The ankle tendons are intact, noting significant tenosynovitis of the peroneus longest tendon as well as the flexor tendons. 6. There is nonspecific myositis of the regional musculature. 7. There is age indeterminant/possibly chronic tearing of the anterior tibiofibular and calcaneofibular ligaments. Electronically signed by: Carlos A Nazario M.D. 06/24/2021 7:42 PM Foot MRI 06/24/21 16:50 MRI OF THE LEFT FOOT WITHOUT IV CONTRAST; MRI OF THE LEFT ANKLE WITHOUT IV CONTRAST CLINICAL HISTORY: Left foot pain and swelling. COMPARISON STUDY: Radiographs and CT of the left foot dated 06/12/2021. TECHNIQUE: MRI of the left foot and MRI of the left ankle are performed utilizing various T1 and T2 sequences in the axial, sagittal, and coronal planes. IV contrast was not administered for these examinations. FINDINGS: There is nonspecific marrow edema within the fifth middle and distal phalanges with no definite fracture identified. No additional foci of marrow edema are seen throughout the foot or ankle. There is no definitive evidence of fracture. The ankle mortise is intact. No osteochondral defect is seen in the talar dome. There is a large ankle joint effusion. The Achilles tendon is normal in morphology and signal intensity. The anterior, posterior, and peroneal tendons are intact. There is tenosynovitis of the peroneus longus tendon, as well as significant tenosynovitis of the tibialis posterior, flexor digitorum longus, and the flexor hallucis longus. The anterior talofibular ligament is intact. There is age indeterminant tearing of the anterior tibiofibular ligament which is likely chronic. The deltoid ligament appears intact. Suspect age indeterminant tearing of the calcaneofibular ligament. Superficial and deep soft tissue edema is present throughout the foot and ankle, greatest along the dorsal aspect of the foot. The plantar fascia is intact. The Lisfranc ligament appears maintained. The joint spaces of the foot are preserved. There is nonspecific myositis of the regional musculature. There is no evidence of organized fluid collection to suggest abscess. IMPRESSION: 1. There is no clear evidence of fracture involving the left foot or ankle. 2. Nonspecific marrow edema is seen within the middle and distal phalanges of the fifth toe. No fracture line is identified. Correlate for point tenderness. 3. Ankle joint effusion. 4. Diffuse soft tissue edema is seen throughout the foot and ankle. Correlate clinically for evidence of synovitis. No organized fluid collection is seen to suggest abscess. 5. The ankle tendons are intact, noting significant tenosynovitis of the peroneus longest tendon as well as the flexor tendons. 6. There is nonspecific myositis of the regional musculature. 7. There is age indeterminant/possibly chronic tearing of the anterior tibiofibular and calcaneofibular ligaments. Electronically signed by: Carlos A Nazario M.D. 06/24/2021 7:42 PM Venous Doppler Study 06/24/21 16:50 ULTRASOUND LEFT LOWER EXTREMITY VENOUS CLINICAL HISTORY: Leg pain and swelling. DVT. COMPARISON STUDY: Left lower extremity venous ultrasounds dated 06/16/2021 and 06/14/2021 TECHNIQUE: Real-time, grayscale, and color Doppler sonography of the deep veins of the left lower extremity was performed from the inguinal crease to the calf. Compression and augmentation were utilized. FINDINGS: Occlusive deep venous thrombosis is again seen in the left calf within one of the peroneal veins. The remaining calf vessels are clear as visualized. No above knee deep venous thrombosis is identified. The common femoral, superficial femoral, and popliteal veins are patent and normally compressible. The greater saphenous vein and the profunda femoris vein at the junction with the common femoral vein are clear. IMPRESSION: 1. Unchanged deep venous thrombosis in the left calf as compared to recent prior studies. 2. No above knee deep venous thrombosis is identified.. ACT 112: Negative or not required by law. Electronically signed by: Carlos A Nazario M.D. 06/24/2021 7:43 PM Supervising Physician Co-Signing Physician Notes Attending addendum: I have physically seen this patient, have supervised the medical residents activities, and agree with the H&P unless as otherwise noted. Assessment and Plan: Acute gout attacks/secondary cellulitis- Uric acid level 9.7 upon admission MRI foot/ankle without evidence of fracture Unable to prescribe colchicine or NSAIDs due to renal function Start Solu-Medrol 20 mg IV every 8 hours Would consider trial of Uloric Dietary discussions DVT, persistent- Continue Eliquis 5 mg p.o. twice daily Remaining orders and notations as noted Resident Activity Tracking Resident Involvement: Resident Care Provided Care Provided: Adult Hospital Medicine (1) DVT (deep venous thrombosis) Affected thrombotic vein of extremity: unspecified vein of extremity Chronicity: acute DVT location: lower extremity Laterality: left Qualified Code(s): I82.402 - Acute embolism and thrombosis of unspecified deep veins of left lower extremity
[2021-06-24] MEDS ORDERED: METOPROLOL TARTRATE 50 MG TAB PO STA (21:42)
[2021-06-24] MEDS ORDERED: METHYLPREDNISOLONE IV SCH (22:43)
[2021-06-24] MEDS ORDERED: CARBOHYDRATES FOR HYPOGLYCEMIA PO PRN (22:43)
[2021-06-24] MEDS ORDERED: GLUCAGON FOR INJ 1 MG VIAL SQ PRN (22:43)
[2021-06-24] MEDS ORDERED: DEXTROSE 5% IV SCH (22:43)
[2021-06-24] MEDS ORDERED: ACETAMINOPHEN 325 MG TAB PO PRN (22:43)
[2021-06-24] MEDS ORDERED: PHARMACY GLYCEMIC MGMT CONSULT PRN (22:43)
[2021-06-24] MEDS ORDERED: ONDANSETRON INJ 2 MG/ML 2 ML VIAL IV PRN (22:43)
[2021-06-24] MEDS ORDERED: DEXTROSE 50% 50 ML SYRINGE IV PRN (22:43)
[2021-06-24] MEDS ORDERED: GLUCOSE 40% GEL 15 GM TUBE PO PRN (22:43)
[2021-06-24] MEDS ORDERED: GLUCOSE 10 TABS/TUBE PO PRN (22:43)
[2021-06-24] MEDS ORDERED: INSULIN HUMAN REGULAR SC SCH (23:30)
[2021-06-24] MEDS ORDERED: INSULIN GLARGINE SOLOSTAR 100 UNITS/ML 3 ML PEN SC ONE (23:30)
[2021-06-24] MEDS ORDERED: INSULIN ASPART 100 UNITS/ML 3 ML PEN SC SCH (23:30)
[2021-06-24] MEDS: PANTOprazole 40 MG TAB PO SCH (23:45)
[2021-06-24] MEDS: APIXABAN 5 MG TABLET PO SCH (23:45)
[2021-06-24] MEDS: methylPREDNISolone 20 MG in SYRINGE 0 ML IV SCH (23:45)
[2021-06-25] MEDS: INSULIN HUMAN LISPRO (humaLOG) 100 UNITS/ML VIAL SC SCH ×3 (00:13→12:50)
[2021-06-25] MEDS ORDERED: INSULIN HUMAN REGULAR SC ONE (04:00)
[2021-06-25] MEDS ORDERED: INSULIN HUMAN LISPRO (humaLOG) 100 UNITS/ML VIAL SC SCH (04:00)
[2021-06-25 08:04] LABS: Basophils # (auto) 0.02 K/uL (0-0.2); Basophils % (auto) 0.1 %; Eosinophils # (auto) 0.01 K/uL (0-0.5); Eosinophils % (auto) 0.1 %; Hematocrit (blood only) 33.1 % (37-47); Hemoglobin 10.8 g/dL (12.0-16.0); Immature Granulocytes # (auto) 0.07 K/uL (0.00-0.02); Immature Granulocytes % (auto) 0.4 %; Lymphocytes # (auto) 1.06 K/uL (1.2-3.4); Lymphocytes % (auto) 6.4 %; Mean Corpuscular Hemoglobin 28.1 pg (25-34); Mean Corpuscular Hgb Conc 32.6 g/dL (32-36); Mean Corpuscular Volume 86.2 fL (80-100); Mean Platelet Volume 10.5 fL (7.4-10.4); Monocytes # (auto) 0.19 K/uL (0.11-0.59); Monocytes % (auto) 1.2 %; Neutrophils # (auto) 15.17 K/uL (1.4-6.5); Neutrophils % (auto) 91.8 %; Platelet Count 346 K/uL (130-400); RDW Coefficient of Variation 14.8 % (11.5-14.5); RDW Standard Deviation 46.8 fL (36.4-46.3); Red Blood Count 3.84 M/uL (4.2-5.4); White Blood Count 16.52 K/uL (4.8-10.8)
[2021-06-25 08:33] LABS: Calcium 9.2 mg/dl (8.5-10.1); Creatinine Clr Calc Pharmacy 15.7 ml/min; Est GFR (African American) 14.2 ml/min; Est GFR (Non-African American) 12.3 ml/min; Potassium 4.6 mmol/L (3.5-5.1)
[2021-06-25] MEDS ORDERED: METOPROLOL SUCC 25MG EXT REL TAB PO SCH (09:00)
[2021-06-25] MEDS ORDERED: SPIRONOLACTONE 25 MG TAB PO SCH (09:00)
[2021-06-25] MEDS ORDERED: ISOSORBIDE MONO EXTENDED REL 60 MG TABCR PO SCH (09:00)
[2021-06-25] MEDS ORDERED: INSULIN GLARGINE SOLOSTAR 100 UNITS/ML 3 ML PEN SC SCH ×2 (09:00→21:00)
[2021-06-25] MEDS ORDERED: CLOPIDOGREL BISULFATE 75 MG TAB PO SCH (09:00)
[2021-06-25] MEDS ORDERED: NIFEdipine EXTENDED REL 30 MG TABCR PO SCH (09:00)
[2021-06-25] MEDS ORDERED: FUROSEMIDE 40 MG TAB PO SCH (09:00)
[2021-06-25] MEDS: PANTOprazole 40 MG TAB PO SCH (09:34)
[2021-06-25] MEDS: hydrALAZINE HCL 25 MG TAB PO SCH ×2 (09:34→14:57)
[2021-06-25] MEDS: methylPREDNISolone 20 MG in SYRINGE 0 ML IV SCH (09:34)
[2021-06-25] MEDS: APIXABAN 5 MG TABLET PO SCH (09:34)
--- NOTE | 2021-06-25 10:25 | Hospitalist Progress Note ---
Date of Service June 25, 2021 Assessment & Plan (1) Gout attack: Plan: Patient is a 71 year old female with PMHx DM2, Atrial fibrillation, HLD, CAD x2 stent, GERD, HTN, recent LLE DVT who presents with 3 day history of L foot and ankle swelling and pain. Patient was recently admitted from 06/12-06/18/21 for similar concerns and had been treated with CTX (for presumed cellulitis), a dose of colchicine, and started on Eliquis for her DVT. Pain at Base of LEFT Great Toe, Lateral Malleolus - Likely Secondary to Gout with Non-infectious Tenosynovitis -Recent admission from 06/12-06/18/21 for similar symptoms and treated with CTX and colchicine at that time -On exam, patient does have some tenderness at the base of the great first toe exacerbated by resisted dorsiflexion - radiates to lateral malleolus -In setting of CKD, high-purine diet, and high UA level (9.7) on admission, suspect this is secondary to gout -MRI Foot/Ankle without evidence of acute fracture. Noting concerns of synovitis in addition to tenosynovitis of the peroneus longest and flexor tendons. --> At this time, lower suspicion that this is infectious. No findings on exam concerning for such. Mild leukocytosis noted. --> s/p Unasyn x 1 in ED; will hold on further ABX for now, can consider CFTX if needed -Much improved s/p Solumedrol IV q8h --> will transition to Prednisone taper beginning at 40mg daily x 7 days -Consider starting patient on Uloric once flare resolved for long-term gout prevention (discuss initiation as outpatient) -Discussed with patient in regards to dietary changes at home (reducing beef, shellfish, etc intake). DVT -Repeat Venous doppler noting "Occlusive deep venous thrombosis is again seen in the left calf within one of the peroneal veins" -Continue Eliquis 5mg BID Hypertension and HFpEF: Improving -Initially presented with hypertensive urgency (SBPs >200, DBPs 80-100) without symptoms of end-organ damange -BPs downtrending with increased pain control -Continue home Lasix, hydralazine, isosorbide mononitrate, nifedipine, spironolactone, metoprolol succinate -Additional doses of hydralazine, Lopressor p.r.n. while here CAD -Continue home Plavix -Continue to hold ASA while on Eliquis GERD -Continue home Pantoprazole CKD Stage IV -Cr 3.45, near baseline -Continue to monitor with diuretic use DM2 -SSI and basal bolus while inpatient -Will request glycemic consult while patient is on steroids Dispo: Med/Surg FEN: DM2 diet DVT: Eliquis BID Code: Full (2) Left leg pain: (3) DVT (deep venous thrombosis): (4) Left leg swelling: (5) Tenosynovitis: (6) Type 2 diabetes mellitus: (7) Gastric ulcer: (8) CKD (chronic kidney disease), stage IV: Admission and Anticipated Discharge Date Admission Date: June 24, 2021 Subjective No acute events overnight. At the bedside this morning, patient reports feeling "much better" compared to last night. She actually denies any pain when lying in bed right now. She said she had gotten up before to go to the restroom, and did not experience any pain with that either. Previously, she was reporting significant benefit with walking around or any sort of weightbearing. She denies any history of similar things happening before her previous hospitalization. She denies any recent fevers or night sweats. Says she has chills occasionally at home, however she has related this to the frequent use of air-conditioning. She denies any cough. She denies rash or joint pains elsewhere. Review of Systems Review of Systems: As per HPI Physical Exam Physical Exam: General: Well and relaxed appearing 71-year-old female who is lying back in her hospital bed upon my arrival. She is freely conversive alert throughout our conversation. HEENT: NCAT. Eyes - Sclera are white, anicteric, and without injection. Mouth - MMM with no tonsillar edema or exudates. Cardiac: Normal rate and regular rhythm; S1 and S2 present with grade 1 out of 6 systolic ejection murmur best heard over the right sternal border. Pulmonary: Good respiratory effort with symmetric expansion of the chest. No use of accessory muscles. Lungs were clear to auscultation bilaterally with no crackles or wheezes. Abdominal: Normoactive bowel sounds. Abdomen was soft, nondistended, and non- tender to palpation. Extremities: Examination of the left foot reveals mildly increased edema from the visual perspective when compared to the right. There is no erythema or rash. On initial palpation, there is no tenderness on either the dorsal or plantar surfaces of the foot. There is no tenderness adjacent to the medial malleolus. There is mild tenderness just inferior to the lateral malleolus, extending anteriorly. Dorsiflexion plantarflexion are 5 out of 5 bilaterally. Resisted dorsiflexion of the great toe does elicit pain extending towards her lateral malleolus. Results & Data Results & Data ([facility]) Vital Signs (Past 12 Hours) Vital Signs Temp Pulse Pulse Resp BP BP Pulse Ox 06/25/21 07:30 36.7 C 62 20 176/69 H 93 06/24/21 23:45 62 194/73 H 06/24/21 22:25 36.5 C 67 18 222/80 H 94 Resident Activity Tracking Resident Involvement: Resident Care Provided Care Provided: Adult Hospital Medicine (1) DVT (deep venous thrombosis) Affected thrombotic vein of extremity: unspecified vein of extremity Chronic ity: acute DVT location: lower extremity Laterality: left Qualified Code(s): I82.402 - Acute embolism and thrombosis of unspecified deep veins of left lower extremity
--- NOTE | 2021-06-25 13:35 | Pharmacy Report ---
Pharmacy Glycemic Short Note 2 - Date of Service June 25, 2021 - Glycemic Short BSG Results (Last 24 hours): 06/24/21 06/24/21 06/25/21 17:12 23:21 03:39 Glucose 226 H POC Glucose 173 H 226 H 06/25/21 06/25/21 06/25/21 07:50 08:34 12:28 Glucose 179 H POC Glucose 172 H 264 H OUTPATIENT ANTIDIABETIC REGIMEN: * Lantus 20 units QAM * Humalog sliding scale ASSESSMENT: * 71 y/o F admitted for possible gout vs. Tenosynovitis. Patient with history of Type 2 diabetes managed at home on basal bolus insulin. * Plan to continue on basal bolus insulin while admitted. Pt was recently an in- patient here and pharmacy was consulted for glycemic control at that time. Will use that data to guide dosing during current admission. * IV solu medrol q8h was started last night. This most likely caused the elevated BSGs earlier today and last night. Solu medrol was discontinued later this morning. Initially, Novolog CF and CR was tightened for lunch but now loosened back up again since IV steroid is stopped. * Continued basal Lantus at home dose. Patient had refused the additional Lantus dose that was ordered last night to cover for the IV steroid. PLAN FOR INPATIENT GLYCEMIC CONTROL: * Basal insulin * Lantus 20 units SQ QAM * Bolus insulin * NovoLog per scale ACHS or Q6hrs while NPO * Goal Range: Low 110 mg/dL - High 140 mg/dL * Correction Factor: 25 mg/dL/unit * Nutritional / Prandial insulin per carb ratio of 1 unit per 8 grams CHO consumed PLAN FOR DISCHARGE: * HbA1c = 7.4% on 05/27/21 indicates well controlled diabetes in this patient given her age and co-morbidities. * Recommend continue on home Lantus and Humalog sliding scale dosing on discharge as long as patient is not reporting any hypoglycemia.
--- NOTE | 2021-06-25 14:04 | Discharge Summary ---
Date of Service June 25, 2021 Admission HPI Per Admitting Provider Patient is a 71 year old female with PMHx DM2, Atrial fibrillation, HLD, CAD x2 stent, GERD, HTN, recent LLE DVT who presents with 3 day history of L foot and ankle swelling and pain. Patient was recently admitted from 06/12-06/18/21 for similar concerns and had been treated with CTX, a dose of colchicine, and started on Eliquis for her DVT. Patient states that the first couple of days after discharge she felt well, however, her pain resumed again worse in the posterior ankle and the great toe in the L foot. She notes that she was concerned that the clot may have been worsening and came to the ED for reevaluation. She state she has been able to walk on the foot, however, it is limited by pain and she has been using a walker to help take pressure off of the foot. She does endorse a diet which includes beef and seafood. Denies any alcohol use. Currently notes that her L foot pain is a "126/10" but would prefer tylenol for pain management in lieu of other analgesics. She denies any fever, chills, SOB, chest pain, abdominal pain, headache, visual changes, upper or lower extremity weakness. Med Hx: DM2, Atrial fibrillation, HLD, CAD x2 stent, GERD, HTN, recent LLE DVT Surg Hx: Cardiac stent x2, R renal artery stent x1 Soc Hx: Denies tobacco, alcohol, or illicit drug use Fam Hx: Denies family history of gout or DVTs/PEs Admission Exam Per Admitting Provider Constitutional: well developed, well nourished and cooperative; no acute distress Eyes: PERRL, conjunctivae normal, anicteric sclerae ENMT: external ear and nose normal, oropharynx normal Neck: trachea midline, no thyromegaly Respiratory: normal respiratory effort; no cough Auscultation: lungs clear to auscultation bilaterally; no diminished lung sounds, no crackles, no rales and no wheezes Cardiovascular: Rate/Rhythm: regular rate and regular rhythm Heart Sounds: normal S1, normal S2 and + murmur (2-3/6 [place] ); no cardiac rub Vessels: no JVD Extremities: + calf tenderness (L calf tenderness ) and + edema Gastrointestinal (Abdomen): Inspection/Auscultation: abdomen normal to inspection and normal bowel sounds; abdomen not distended Percussion/Palpation: abdomen soft; abdomen nontender, no guarding and abdomen not rigid Musculoskeletal: no cyanosis or clubbing, extremities motor strength 5/5 Head/Neck/Chest: normocephalic and head atraumatic L ankle swollen and tender to palpation, worse in the posterior aspect along the achilles tendon. Dorsalis pedis and tibialis anterior pulses palpable Sensation intact Strength testing 5/5, limited secondary to pain with dorsiflexion and plantarflexion of the L foot Tenderness at the L foot MTP Skin: no rashes, warm and dry Psychiatric: A+Ox3, euthymic affect Principal Diagnosis acute gout flare tenosynovitis Discharge Exam General: Well and relaxed appearing 71-year-old female who is lying back in her hospital bed upon my arrival. She is freely conversive alert throughout our conversation. HEENT: NCAT. Eyes - Sclera are white, anicteric, and without injection. Mouth - MMM with no tonsillar edema or exudates. Cardiac: Normal rate and regular rhythm; S1 and S2 present with grade 1 out of 6 systolic ejection murmur best heard over the right sternal border. Pulmonary: Good respiratory effort with symmetric expansion of the chest. No use of accessory muscles. Lungs were clear to auscultation bilaterally with no crackles or wheezes. Abdominal: Normoactive bowel sounds. Abdomen was soft, nondistended, and non- tender to palpation. Extremities: Examination of the left foot reveals mildly increased edema from the visual perspective when compared to the right. There is no erythema or rash. On initial palpation, there is no tenderness on either the dorsal or plantar surfaces of the foot. There is no tenderness adjacent to the medial malleolus. There is mild tenderness just inferior to the lateral malleolus, extending anteriorly. Dorsiflexion plantarflexion are 5 out of 5 bilaterally. Resisted dorsiflexion of the great toe does elicit pain extending towards her la teral malleolus. Discharge Data Allergies Allergy/AdvReac Type Severity Reaction Status Date / Time heparin Allergy Hives Verified 06/24/21 17:35 insulin aspart Allergy Hives Verified 06/24/21 17:35 [From Novolog U-100 Insulin aspart] meperidine AdvReac Intermediate hallucinate Verified 06/24/21 17:35 s lisinopril AdvReac Mild COUGHING Verified 06/24/21 17:35 Consultations 06/24/21 20:02 ED Decision to Admit Stat Ordered Studies MRI OF THE LEFT FOOT WITHOUT IV CONTRAST; MRI OF THE LEFT ANKLE WITHOUT IV CONTRAST (06/25) CLINICAL HISTORY: Left foot pain and swelling. COMPARISON STUDY: Radiographs and CT of the left foot dated 06/12/2021. TECHNIQUE: MRI of the left foot and MRI of the left ankle are performed utilizing various T1 and T2 sequences in the axial, sagittal, and coronal planes. IV contrast was not administered for these examinations. FINDINGS: There is nonspecific marrow edema within the fifth middle and distal phalanges with no definite fracture identified. No additional foci of marrow edema are seen throughout the foot or ankle. There is no definitive evidence of fracture. The ankle mortise is intact. No osteochondral defect is seen in the talar dome. There is a large ankle joint effusion. The Achilles tendon is normal in morphology and signal intensity. The anterior, posterior, and peroneal tendons are intact. There is tenosynovitis of the peroneus longus tendon, as well as significant tenosynovitis of the tibialis posterior, flexor digitorum longus, and the flexor hallucis longus. The anterior talofibular ligament is intact. There is age indeterminant tearing of the anterior tibiofibular ligament which is likely chronic. The deltoid ligament appears intact. Suspect age indeterminant tearing of the calcaneofibular ligament. Superficial and deep soft tissue edema is present throughout the foot and ankle, greatest along the dorsal aspect of the foot. The plantar fascia is intact. The Lisfranc ligament appears maintained. The joint spaces of the foot are preserved. There is nonspecific myositis of the regional musculature. There is no evidence of organized fluid collection to suggest abscess. IMPRESSION: 1. There is no clear evidence of fracture involving the left foot or ankle. 2. Nonspecific marrow edema is seen within the middle and distal phalanges of the fifth toe. No fracture line is identified. Correlate for point tenderness. 3. Ankle joint effusion. 4. Diffuse soft tissue edema is seen throughout the foot and ankle. Correlate clinically for evidence of synovitis. No organized fluid collection is seen to suggest abscess. 5. The ankle tendons are intact, noting significant tenosynovitis of the peroneus longest tendon as well as the flexor tendons. 6. There is nonspecific myositis of the regional musculature. 7. There is age indeterminant/possibly chronic tearing of the anterior tibiofibular and calcaneofibular ligaments. ---- ULTRASOUND LEFT LOWER EXTREMITY VENOUS (06/24) CLINICAL HISTORY: Leg pain and swelling. DVT. COMPARISON STUDY: Left lower extremity venous ultrasounds dated 06/16/2021 and 06/14/2021 TECHNIQUE: Real-time, grayscale, and color Doppler sonography of the deep veins of the left lower extremity was performed from the inguinal crease to the calf. Compression and augmentation were utilized. FINDINGS: Occlusive deep venous thrombosis is again seen in the left calf within one of the peroneal veins. The remaining calf vessels are clear as visualized. No above knee deep venous thrombosis is identified. The common femoral, superficial femoral, and popliteal veins are patent and normally compressible. The greater saphenous vein and the profunda femoris vein at the junction with the common femoral vein are clear. IMPRESSION: 1. Unchanged deep venous thrombosis in the left calf as compared to recent prior studies. 2. No above knee deep venous thrombosis is identified.. Hospital Course (1) Gout attack: Patient is a 71 year old female with PMHx DM2, Atrial fibrillation, HLD, CAD x2 stent, GERD, HTN, recent LLE DVT who presents with 3 day history of L foot and ankle swelling and pain. Patient was recently admitted from 06/12- 06/18/21 for similar concerns and had been treated with CTX (for presumed cellulitis), a dose of colchicine, and started on Eliquis for her DVT. Pain at Base of LEFT Great Toe, Lateral Malleolus - Suspect Secondary to Gout with Non-infectious Tenosynovitis -Recent admission from 06/12-06/18/21 for similar symptoms and treated with CTX and colchicine at that time -On exam, patient does have some tenderness at the base of the great first toe exacerbated by resisted dorsiflexion - radiates to lateral malleolus -In setting of CKD, high-purine diet, Lasix, and high UA level (9.7) on admission, suspect this is secondary to gout -MRI Foot/Ankle without evidence of acute fracture. Noting concerns of synovitis in addition to tenosynovitis of the peroneus longest and flexor tendons. --> Do not suspect this is infectious based on clinical appearance, rapid improvement with short course of steroid -Much improved s/p Solumedrol IV q8h --> will transition to Prednisone taper beginning at 40mg daily x 7 days on discharge -Consider starting patient on Uloric (given CKD) once flare resolved for long-te rm gout prevention -Dietary counselling provided to patient prior to discharge DVT -Repeat Venous doppler noting "Occlusive deep venous thrombosis is again seen in the left calf within one of the peroneal veins" -Continue Eliquis 5mg BID Hypertension and HFpEF: Improving on D/C -Initially presented with hypertensive urgency (SBPs >200, DBPs 80-100) without symptoms of end-organ damage -BPs downtrending with increased pain control -Continue home Lasix, hydralazine, isosorbide mononitrate, nifedipine, spironolactone, metoprolol succinate -Additional doses of hydralazine, Lopressor p.r.n. while here CAD -Continue home Plavix -Continue to hold ASA while on Eliquis GERD -Continue home Pantoprazole CKD Stage IV -Cr 3.45, near baseline -Continue to monitor with diuretic use DM2 -SSI and basal bolus while inpatient. Continue SSI on d/c. -Recommend close follow-up of BSGs while on steroids. Code: Full (2) Left leg pain: (3) DVT (deep venous thrombosis): (4) Left leg swelling: (5) Tenosynovitis: (6) Type 2 diabetes mellitus: (7) Gastric ulcer: (8) CKD (chronic kidney disease), stage IV: Total Time Total Time Spent Total Time Spent (In Minutes): 30 Discharge Plan Discharge Items Patient Disposition: Home - Self-Care Reason For Visit: GOUT VS TENOSYNOVITIS Discharge Diagnosis: acute gout flare Condition on Discharge: Fair Activity: Per Instructions section Non-emergency contact: Primary Care Provider Call non-emergency contact if: you have any medication questions, your symptoms worsen, your pain is worsening and your temperature is above 101 Follow-up/Referrals: Shay Hammond [Primary Care Provider] - Diet: Regular and Other - See Diet Comment Diet Comment: Gout diet (low purine foods) - see handouts Addtl Attending Provider Instructions: You were seen in [facility] for evaluation of acute left foot pain. Upon your arrival here, you underwent several studies to determine the cause of this pain. You underwent an MRI, which did demonstrate some inflammatory changes within your foot. Thankfully, based off your physical exam and responsiveness to steroids, there do not seem to be any indications for developing infection at this time. The most likely cause of your pain is thoug ht to be due to gout. You demonstrated a great response with intravenous steroids. Upon discharge, you will be prescribed a steroid taper to help with your pain. Please keep close track of your blood sugars while on this steroid (prednisone) and utilize your sliding scale to keep your sugars within goal range (100-140 mg/dL) Please follow-up with your PCP within 1 week to review this visit and the medications. At that visit, you can begin discussions about medications that can be utilized to help prevent future attacks of gout and review your blood sugars. In the interim, if you begin developing fevers, chills, night sweats, worsening pain within your left foot, development of rash, and inability to bare weight, or other worrisome symptoms, please seek medical attention; if your symptoms are severe, please report to the ER for immediate evaluation It was a pleasure for caring for you while you were here, and we wish you all the best in your recovery. Pending Studies at Discharge: No Stand-Alone Forms: [facility] [employer], Smoking Cessation Medications and DC Order Prescriptions: New prednisone 10 mg tablet See Rx Instructions mg .ROUTE .COMPLEX Qty: 10 RF: 0 Continued Lantus Solostar U-100 Insulin 100 unit/mL (3 mL) insulin pen 20 unit SUBCUT QAM Qty: 30 RF: 3 hydralazine 25 mg tablet 25 mg PO TID Qty: 90 RF: 3 dicyclomine 10 mg capsule 10 mg PO TID PRN (Reason: Abdominal Discomfort) Qty: 12 RF: 0 isosorbide mononitrate 60 mg tablet extended release 24 hr 60 mg PO QAM Qty: 30 RF: 3 pantoprazole 40 mg tablet,delayed release (DR/EC) 40 mg PO BID Qty: 60 RF: 3 spironolactone 25 mg tablet 25 mg PO QAM Qty: 90 RF: 3 clopidogrel [Plavix] 75 mg tablet 75 mg PO QAM RF: 0 [id number] oil-vit D3 [Fish Oil-Vit D3] 300-1,000-1,000 mg-mg-unit Capsule 1 cap PO QAM RF: 0 insulin lispro [Humalog KwikPen Insulin] 100 unit/mL insulin pen 0 unit subcut TIDM MDD 75 units RF: 0 metoprolol succinate [Toprol XL] 25 mg Tablet Extended Release 24 Hr 25 mg PO QAM 30 Days Qty: 30 RF: 0 furosemide 40 mg tablet 40 mg PO DAILY RF: 0 nifedipine [Procardia XL] 60 mg tablet extended release 24hr 60 mg PO DAILY RF: 0 Eliquis 5 mg (74 tabs) tablets,dose pack 5 mg PO BID RF: 0 Discharge Orders: Discharge Order (Routine); Ordered 06/25/21 Ordered By: Jesus Manuel Gibbons/Other Patient Handouts: Treating Gout Attacks, CKD Dc, Eating to Prevent Gout, ED Gout, ED Gout Diet Admission Data Admit Date/Time: 06/24/21 21:42 Attending Provider: Jackie Duvall Admit Provider: Jesus Manuel Grasia Primary Care Provider: Shay Hammond Other Providers: Remberto Duarte Other Interventions: Discharge Summary Assessment (RN) Last Done: 06/25/21 15:13 Supervising Physician Co-Signing Physician Notes Resident Physician Supervision Note: I independently interviewed and examined the patient and verified the andrews history and physical, reviewed labs and image studies and agree with resident Dr. Garsia findings and care plan.
--- NOTE | 2021-06-25 14:07 | Communication Note ---
Date of Service: June 25, 2021 By CMS guidelines, a determination that the admission or continued stay is not medically necessary has been made by a member of the UR committee and a ph ysician for this hospital stay, therefore a Code 44 will be completed and the Inpatient admission will be changed to outpatient.
--- NOTE | 2021-06-25 19:34 | Billing Data ---
Date of Service June 25, 2021 Coding Level of Care Code 10371 Initial Inpt Care Lvl 3
[2021-06-26] MEDS ORDERED: predniSONE 20 MG TAB PO SCH (09:00)
== END 2021-06-25 16:25 | disposition home or self-care (01) ==
LOC: ED 16:15 → INTOOBSV 21:42 → 3N 21:42 → SUATTDRO 21:42 → 3N 23:00

== ENCOUNTER 2021-11-25 10:05 | Inpatient (IN) ==
[~2021-11-25 10:05] MED LIST changes: -AMLO-114 PO; -CARV3.122 PO; -CIPR-255 PO; -CLOP1TAB15 PO; -FISH1CAP3 PO; -HYG25 PO; +Heparin IV Adult Wt-Based Standard *NO* Bolus Protocol IV ONE; -INSDGIPEN SC; -INSU100I SC; -INSU100I2 SC; -ROSU40TA PO; -TRIATAB3 PO
--- NOTE | 2021-11-25 10:26 | Emergency Department Note ---
Impression & Plan Chest pain ADMIT ED Provider Note HPI: The patient is a 71-year-old female with history of type 2 diabetes, paroxysmal atrial fibrillation, diastolic heart failure with preserved ejection fraction, presents emergency department with a chief complaint of chest pain is been ongoing since last night. Patient states that she is felt that she has had "too much fluid". She states that this is because some shortness of breath since last night. She states that she had some sharp pains in the left side of her chest. Patient states that she was given sublingual nitroglycerin as well as an aspirin in route via EMS and this seems to have resolved her shortness of breath and chest pain. On arrival here to the ED she is hypertensive at 231/120, she is conversational and otherwise in no acute distress. She does not exhibit any increased work of breathing. She denies any recent fevers, states she has had a slight cough. ROS: -Pulmonary: Shortness of breath -Cardio: Chest pain *10 point review systems was conducted and is otherwise negative unless stated above *Outpatient medications and allergy history reviewed PE: General: Obese, alert, NAD HEENT: Normocephalic, atraumatic Eyes: Extraocular eye movement is intact, no scleral erythema Pulmonary: Diminished bilaterally without crackles or wheezing Cardio: Regular rate and rhythm GI: Abdomen is soft, nontender : No suprapubic tenderness MSK: No evidence of trauma or malformation of the extremities, 2+ edema of the bilateral lower extremities Skin: No evidence of rash Neuro: Alert, no focal deficits Psychiatric: Cooperative color television console monitor: - An order was placed for continuous cardiac monitoring - Patient was noted to be in sinus rhythm with rate of 75 EKG: Rate: 74 Rhythm: Normal sinus rhythm Intervals: QTC 508 ms, otherwise within normal limits ST changes: No ST elevation Time: 1016 Medical Decision Making: The patient is a 71-year-old female with history of diastolic heart failure with preserved ejection fraction, paroxysmal atrial fibrillation, stage IV chronic kidney disease, presents the emergency department chief complaint shortness of breath and chest pain. On arrival here to the ED the patient is status post nitroglycerin as well as aspirin in the field. She states that her work of breathing is improved but she is noted to have a blood pressure of 230 systolic. She is otherwise in no acute distress on arrival. Lab work was initiated which does show a creatinine elevation to 5.7, this appears to be slightly worse than the patient's baseline although her last creatinine in August was greater than 6 most of been in a lower range. Potassium slightly low at 3.2, oral repletion was ordered in the ED.Troponin is elevated 0.07 in the setting of chronic kidney disease. Blood pressure was elevated greater than 230 systolic on arrival therefore the patient was given IV labetalol and a dose of IV Lasix as chest x-ray also shows pulmonary edema. On my reassessment she states she is feeling improved but still does have some mild chest discomfort. Given her history of CAD in conjunction with her multiple comorbidities I do think she is appropriate for admission for ACS rule out and possibly nephrology consultation. Patient is in agreement the above plan, [facility] hospitalist group will be consulted for admission. * CRITICAL CARE TIME: ( 33 ) minutes -Stabilization of dyspnea with hypertensive urgency requiring IV medications for blood pressure control, time spent at the bedside, interpretation of diagnostic studies, discussion with other healthcare providers and arrangement of admission Diagnosis: 1. Hypertensive urgency 2. Acute on chronic kidney disease 3. Elevated troponin 4. Hypokalemia Disposition: Admission Sagar Sutton DO Emergency Medicine Past Med/Surg History Medical History Acute pain of left foot CAD (coronary artery disease) Chronic heart failure with preserved ejection fraction (HFpEF) CKD (chronic kidney disease) Diverticulosis Elevated troponin Failure of outpatient treatment History of stent insertion of renal artery Hyperlipidemia Hypertension Hypertensive emergency Leukocytosis LVH (left ventricular hypertrophy) Lymphedema Pedal edema Renal artery stenosis Status post myocardial infarction Vulvovaginal candidiasis Surgical History H/O heart artery stent Family History Other Hypertension Social History Smoking Status: Never smoker Second Hand Exposure: No; Hx Alcohol Use: No Hx Substance Use: No Preferred Language: Macedonian Communication Ability: Effective Personal Financial Advisor Required: No Beliefs That Will Affect Care: None marital status: Single Current Living Situation: Family Current Living Situation Comment: Lives with grandson How many Children do You have: 2 Feels Safe at Home: Yes Assistive Devices: Glasses Allergies Allergies Allergy/AdvReac Type Severity Reaction Status Date / Time heparin Allergy Hives Verified 09/15/21 14:32 insulin aspart Allergy Hives Verified 09/15/21 14:32 [From Novolog U-100 Insulin aspart] meperidine AdvReac Intermediate hallucinate Verified 09/15/21 14:32 s lisinopril AdvReac Mild COUGHING Verified 09/15/21 14:32 Home Meds Home Medications Medication Instructions Recorded Confirmed insulin lispro 100 unit/mL 0 unit SUBCUT TIDM MDD 75 units 05/26/21 09/15/21 subcutaneous pen (Humalog KwikPen (U-100) Insulin) [id number] oil-vit D3 300 1 cap PO QAM 05/26/21 09/15/21 mg-1,000 mg-1,000 unit capsule (Fish Oil-Vit D3) Previous Rx's Medication Instructions Recorded insulin glargine 100 unit/mL (3 20 unit SUBCUT QAM #30 ml 06/05/21 mL) subcutaneous pen (Lantus Solostar U-100 Insulin) apixaban 5 mg tablet (Eliquis) 5 mg PO BID #180 tab 07/21/21 metoprolol succinate 25 mg 25 mg PO DAILY #90 tab 07/21/21 tablet,extended release 24 hr nifedipine 60 mg tablet,extended 60 mg PO DAILY #90 tab 07/21/21 release 24 hr (Procardia XL) allopurinol 100 mg tablet 100 mg PO DAILY #90 tab 08/10/21 hydralazine 50 mg tablet 50 mg PO TID #270 tab 08/10/21 calcitriol 0.25 mcg capsule 0.25 mcg PO DAILY #90 cap 09/15/21 clopidogrel 75 mg tablet (Plavix) 75 mg PO QAM #90 tab 09/15/21 furosemide 40 mg tablet 40 mg PO DAILY #180 tab 09/19/21 furosemide 40 mg tablet 80 mg PO DAILY #180 tab 09/19/21 isosorbide mononitrate 60 mg 60 mg PO QAM #90 tab 10/24/21 tablet,extended release 24 hr dicyclomine 10 mg capsule 10 mg PO TID PRN #90 cap 10/31/21 Results & Data (ED) Vital Signs Vital Signs - 24 hr 11/25/21 10:20 11/25/21 10:29 11/25/21 10:31 Temperature 36.7 C Temperature Source Oral Pulse Rate 69 67 Respiratory Rate 22 22 Respiratory Effort / Characteristics Short of Breath SOB on Exertion Labored Short of Breath SOB on Exertion Respiratory Depth Normal Respiratory Pattern Regular Blood Pressure 231/120 H Blood Pressure Mean 157 Pulse Oximetry 96 96 Oxygen Delivery Method Room Air Room Air Room Air Sepsis Recent Fever Within 48 Hours No Sepsis New/Unexplained Change in Mental Status No Sepsis Action Taken by Nursing No Action Required Laboratory Data Result diagrams: 11/25/21 10:42 11/25/21 10:42 Lab Results 11/25/21 11/25/21 11/25/21 Range/Units 10:42 10:42 10:42 WBC 14.23 H (4.8-10.8) K/uL RBC 3.62 L (4.2-5.4) M/uL Hgb 10.3 L (12.0-16.0) g/dL Hct 32.5 L (37-47) % MCV 89.8 (80-100) fL MCH 28.5 (25-34) pg MCHC 31.7 L (32-36) g/dL RDW Std Deviation 54.0 H (36.4-46.3) fL RDW Coeff of Ekaterina 16.5 H (11.5-14.5) % Plt Count 320 (130-400) K/uL MPV 10.4 (7.4-10.4) fL Immature Gran % (Auto) 0.8 % Neut % (Auto) 81.8 % Lymph % (Auto) 7.8 % Evans % (Auto) 6.7 % Eos % (Auto) 2.5 % Baso % (Auto) 0.4 % Neut # (Auto) 11.62 H (1.4-6.5) K/uL Lymph # (Auto) 1.11 L (1.2-3.4) K/uL Evans # (Auto) 0.96 H (0.11-0.59) K/uL Eos # (Auto) 0.36 (0-0.5) K/uL Baso # (Auto) 0.06 (0-0.2) K/uL Immature Gran # (Auto) 0.12 H (0.00-0.02) K/uL PT 11.2 (9.0-12.0) Seconds INR 1.1 (0.9-1.1) APTT 34.2 H (21.0-31.0) Seconds PTT Ratio 1.3 Sodium 140 (136-145) mmol/L Potassium 3.2 L (3.5-5.1) mmol/L Chloride 107 (98-107) mmol/L Carbon Dioxide 22 (21-32) mmol/L Anion Gap 11 (3-11) BUN 72 H (6-23) mg/dl Creatinine 5.72 H* (0.6-1.2) mg/dl Est Cr Clr Drug Dosing 9.7 ml/min Est GFR ( Amer) 8.0 ml/min Est GFR (Non-Af Amer) 6.9 ml/min BUN/Creatinine Ratio 12.6 (10-20) Glucose 110 H (70-99(Fasting)) mg/dl Calcium 8.9 (8.5-10.1) mg/dl Total Bilirubin 0.4 (0.2-1.0) mg/dl AST 10 L (13-39) U/L ALT 7 (7-52) U/L Alkaline Phosphatase 106 H (34-104) U/L Troponin I 0.07 H* (0-0.04) ng/ml B-Natriuretic Peptide (0-100) pg/ml Total Protein 6.7 (6.0-8.3) gm/dl Albumin 3.3 L (3.4-5.0) gm/dl Globulin 3.4 (2.5-4.0) gm/dl Albumin/Globulin Ratio 1.0 (0.9-2) Lipase 62 (11-82) U/L 11/25/21 Range/Units 10:42 WBC (4.8-10.8) K/uL RBC (4.2-5.4) M/uL Hgb (12.0-16.0) g/dL Hct (37-47) % MCV (80-100) fL MCH (25-34) pg MCHC (32-36) g/dL RDW Std Deviation (36.4-46.3) fL RDW Coeff of Ekaterina (11.5-14.5) % Plt Count (130-400) K/uL MPV (7.4-10.4) fL Immature Gran % (Auto) % Neut % (Auto) % Lymph % (Auto) % Evans % (Auto) % Eos % (Auto) % Baso % (Auto) % Neut # (Auto) (1.4-6.5) K/uL Lymph # (Auto) (1.2-3.4) K/uL Evans # (Auto) (0.11-0.59) K/uL Eos # (Auto) (0-0.5) K/uL Baso # (Auto) (0-0.2) K/uL Immature Gran # (Auto) (0.00-0.02) K/uL PT (9.0-12.0) Seconds INR (0.9-1.1) APTT (21.0-31.0) Seconds PTT Ratio Sodium (136-145) mmol/L Potassium (3.5-5.1) mmol/L Chloride (98-107) mmol/L Carbon Dioxide (21-32) mmol/L Anion Gap (3-11) BUN (6-23) mg/dl Creatinine (0.6-1.2) mg/dl Est Cr Clr Drug Dosing ml/min Est GFR ( Amer) ml/min Est GFR (Non-Af Amer) ml/min BUN/Creatinine Ratio (10-20) Glucose (70-99(Fasting)) mg/dl Calcium (8.5-10.1) mg/dl Total Bilirubin (0.2-1.0) mg/dl AST (13-39) U/L ALT (7-52) U/L Alkaline Phosphatase (34-104) U/L Troponin I (0-0.04) ng/ml B-Natriuretic Peptide 443 H (0-100) pg/ml Total Protein (6.0-8.3) gm/dl Albumin (3.4-5.0) gm/dl Globulin (2.5-4.0) gm/dl Albumin/Globulin Ratio (0.9-2) Lipase (11-82) U/L Administered Medications Discontinued Medications Furosemide (Furosemide 40 Mg/4 Ml Vial) 40 mg IV ONE ONE Stop: 11/25/21 10:38 Last Admin: 11/25/21 11:01 Dose: 40 mg Documented by: [id number] Labetalol HCl (Labetalol Hcl Iv 5 Mg/Ml 20ml) 10 mg IV NOW STA Stop: 11/25/21 10:37 Last Admin: 01/29/22 11:01 Dose: 10 mg Documented by: [id number] Cosigned by: [id number] Potassium Chloride (Potassium Chloride Crtab 20 Meq Tabcr) 40 meq PO NOW STA Stop: 11/25/21 11:36 Last Admin: 11/25/21 11:43 Dose: 40 meq Documented by: [id number] Imaging Data Radiologist's Impression: Chest X-Ray 11/25/21 10:07 XR chest 1V portable HISTORY: 71 years-old Female Chest Pain . Acute atypical chest pain COMPARISON: 05/29/2021 TECHNIQUE: Portable AP view of the chest FINDINGS: Cardiac silhouette is enlarged. Pulmonary vascular congestion with interstitial coarsening. Trace pleural effusions. Mild left basilar consolidation. No pneumothorax. Degenerative changes of the shoulders and spine. IMPRESSION: 1. Cardiomegaly with pulmonary vascular congestion and interstitial coarsening suggestive of pulmonary edema. 2. Trace pleural effusions with mild left lung base consolidation. ACT 112: Negative or not required by law. The above report was generated using voice recognition software. It may contain grammatical, syntax or spelling errors. Electronically signed by: Isac Fernandez M.D. 11/25/2021 10:29 AM Discharge Plan Visit Data Chief Complaint: Chest Pain ED Provider: Sagar Sutton Discharge Problem: Chest pain Forms Stand Alone Forms: [facility] Prescriptions Prescriptions: No Action Lantus Solostar U-100 Insulin 100 unit/mL (3 mL) insulin pen 20 unit SUBCUT QAM Qty: 30 RF: 3 metoprolol succinate 25 mg tablet extended release 24 hr 25 mg PO DAILY Qty: 90 RF: 3 nifedipine [Procardia XL] 60 mg tablet extended release 24hr 60 mg PO DAILY Qty: 90 RF: 3 Eliquis 5 mg tablet 5 mg PO BID Qty: 180 RF: 3 furosemide 40 mg tablet 80 mg PO DAILY Qty: 180 RF: 3 furosemide 40 mg tablet 40 mg PO DAILY Qty: 180 RF: 3 isosorbide mononitrate 60 mg tablet extended release 24 hr 60 mg PO QAM Qty: 90 RF: 3 dicyclomine 10 mg capsule 10 mg PO TID PRN (Reason: Abdominal Discomfort) Qty: 90 RF: 2 calcitriol 0.25 mcg capsule 0.25 mcg PO DAILY Qty: 90 RF: 2 clopidogrel [Plavix] 75 mg tablet 75 mg PO QAM Qty: 90 RF: 3 hydralazine 50 mg tablet 50 mg PO TID Qty: 270 RF: 3 allopurinol 100 mg tablet 100 mg PO DAILY Qty: 90 RF: 2 [id number]-epa-fish oil-vit D3 [Fish Oil-Vit D3] 300-1,000-1,000 mg-mg-unit Capsule 1 cap PO QAM RF: 0 insulin lispro [Humalog KwikPen Insulin] 100 unit/mL insulin pen 0 unit subcut TIDM MDD 75 units RF: 0 Referrals Referrals: Shay Hammond DO [Primary Care Provider] - Discharge Problem: Chest pain Qualifiers: Chest pain type: unspecified Qualified Code(s): R07.9 - Chest pain, unspecified
--- NOTE | 2021-11-25 10:31 | XRay Report ---
XR chest 1V portable HISTORY: 71 years-old Female Chest Pain . Acute atypical chest pain COMPARISON: 05/29/2021 TECHNIQUE: Portable AP view of the chest FINDINGS: Cardiac silhouette is enlarged. Pulmonary vascular congestion with interstitial coarsening. Trace ple ural effusions. Mild left basilar consolidation. No pneumothorax. Degenerative changes of the shoulde rs and spine. IMPRESSION: 1. Cardiomegaly with pulmonary vascular congestion and interstitial coarsening suggestive of pulmonar y edema. 2. Trace pleural effusions with mild left lung base consolidation. ACT 112: Negative or not required by law. The above report was generated using voice recognition software. It may contain grammatical, syntax o r spelling errors. Electronically signed by: Isac Fernandez M.D. 11/25/2021 10:29 AM
[2021-11-25] MEDS ORDERED: LABETALOL HCL IV 5 MG/ML 20ML IV STA (10:36)
[2021-11-25] MEDS ORDERED: FUROSEMIDE 40 MG/4 ML VIAL IV ONE (10:37)
[2021-11-25 10:54] LABS: Basophils # (auto) 0.06 K/uL (0-0.2); Basophils % (auto) 0.4 %; Eosinophils # (auto) 0.36 K/uL (0-0.5); Eosinophils % (auto) 2.5 %; Hematocrit (blood only) 32.5 % (37-47); Hemoglobin 10.3 g/dL (12.0-16.0); Immature Granulocytes # (auto) 0.12 K/uL (0.00-0.02); Immature Granulocytes % (auto) 0.8 %; Lymphocytes # (auto) 1.11 K/uL (1.2-3.4); Lymphocytes % (auto) 7.8 %; Mean Corpuscular Hemoglobin 28.5 pg (25-34); Mean Corpuscular Hgb Conc 31.7 g/dL (32-36); Mean Corpuscular Volume 89.8 fL (80-100); Mean Platelet Volume 10.4 fL (7.4-10.4); Monocytes # (auto) 0.96 K/uL (0.11-0.59); Monocytes % (auto) 6.7 %; Neutrophils # (auto) 11.62 K/uL (1.4-6.5); Neutrophils % (auto) 81.8 %; Platelet Count 320 K/uL (130-400); RDW Coefficient of Variation 16.5 % (11.5-14.5); Red Blood Count 3.62 M/uL (4.2-5.4); White Blood Count 14.23 K/uL (4.8-10.8)
[2021-11-25 11:12] LABS: INR 1.1 (0.9-1.1); Partial Thromboplastin Ratio 1.3; Partial Thromboplastin Time 34.2 Seconds (21.0-31.0); Prothrombin Time 11.2 Seconds (9.0-12.0)
[2021-11-25 11:28] LABS: Albumin Level 3.3 gm/dl (3.4-5.0); BUN Creatinine Ratio 12.6 (10-20); Bilirubin,Total 0.4 mg/dl (0.2-1.0); Calcium 8.9 mg/dl (8.5-10.1); Creatinine Clr Calc Pharmacy 9.7 ml/min; Est GFR (Non-African American) 6.9 ml/min; Globulin 3.4 gm/dl (2.5-4.0); Potassium 3.2 mmol/L (3.5-5.1); Total Protein 6.7 gm/dl (6.0-8.3); Troponin I 0.07 ng/ml (0-0.04)
[2021-11-25] MEDS ORDERED: POTASSIUM CHLORIDE CRTAB 20 MEQ TABCR PO STA (11:35)
--- NOTE | 2021-11-25 11:41 | Electrocardiogram Report ---
Test Reason : Blood Pressure : / mmHG Vent. Rate : 074 BPM Atrial Rate : 074 BPM P-R Int : 164 ms QRS Dur : 102 ms QT Int : 458 ms P-R-T Axes : 051 000 169 degrees QTc Int : 508 ms Normal sinus rhythm Left ventricular hypertrophy with repolarization abnormality Prolonged QT Abnormal ECG When compared with ECG of 16-JUN-2021 02:47, Sinus rhythm has replaced Atrial fibrillation Vent. rate has decreased BY [address] no longer depressed in Anterior leads Confirmed by Chris Ortiz ([id number]) on 11/25/2021 11:40:41 AM Referred By: REFERRED SELF Confirmed By:Chris Ortiz
--- NOTE | 2021-11-25 12:02 | History & Physical Report ---
Date of Service November 25, 2021 Assessment & Plan (1) Shortness of breath: Plan: -Most likely due to fluid overload, CXR showed cardiomegaly and pulmonary vascular congestion and interstitial coarsening suggestive of pulmonary edema. CXR also showed trace pleural effusions mild left lung base consolidation however patient does not have fever/chills or nonproductive cough, white blood cell count appears to be chronically elevated. -Patient is not requiring supplemental oxygen at this time. -Monitor response to diuresis. (2) Chronic heart failure with preserved ejection fraction (HFpEF): Plan: -Patient takes 40 mg of Lasix daily. She took 80 mg as well as 25 mg spironolactone yesterday. -Received 40 mg IV Lasix in ED. We will repeat this dose later this evening. -Hold spironolactone. -Followed by heart failure group. Dry weight 200 lb. -Daily weights, low-sodium diet, water fluid restriction, follow BMP. (3) Elevated troponin: Plan: -Elevated 0.07 in the setting of CKD stage IV. -EKG showed normal sinus rhythm, left ventricular hypertrophy with repolarization abnormality, prolonged QT -Trend troponins Q6 x2, EKGs to be done with troponin lab draws. (4) CKD (chronic kidney disease), stage IV: Plan: -BUN 72, creatinine 5.72. BUN at baseline, baseline creatinine seems to be between 3 and 4. Creatinine 5.17 was actually decreased from her reading in August where it was 6.12. -Followed by nephrology, per August, discussed trajectory of her kidney dysfunction in detail and potential future indications for dialysis. -Avoid nephrotoxic agents, renally dose all medications. -S/p renal stent in 2013. (5) Hypokalemia: Plan: -K+ 3.2. -Received 40 mEq in ED. -Recheck BMP every 6 in AM. (6) Type 2 diabetes mellitus: Plan: -Presenting glucose 110. -Continue Lantus 20 units every morning. -Accu-Cheks with sliding scale insulin. (7) Paroxysmal atrial fibrillation: Plan: -NSR today -Rate controlled with metoprolol. -Previously on eliquis 5 mg twice daily. Patient took first dose already. Will D/C, consider heparin drip without bolus starting tomorrow a.m. (8) CAD (coronary artery disease): Plan: -S/p PCI of circumflex (09/20/2010) and RCA (10/12/2019) -Preserved EF (65-70% 05/2020). -Continue aspirin 81 mg daily. Continue Plavix 75 mg daily. Continue beta- fartun. She had been on Crestor 40 mg daily in the past. It is not clear at this time on why this was discontinued. (9) Hypertension: Plan: -231/120 upon arrival. States she took her a.m. meds. -We will continue home meds--> hydralazine 50 mg PO TID, metoprolol 25 mg PO QD, nifedipine 60 mg PO QD. -Hydralazine 5 mg IV ordered as needed if systolic blood pressure > 200. (10) Hyperlipidemia: Plan: -She had been on Crestor 40 mg daily in the past. It is not clear at this time on why this was discontinued. (11) Gastric ulcer: Plan: -Seen on last admission. Patient takes PPI daily. -Continue Protonix 40 mg daily. (12) DVT prophylaxis: Plan: -SCDs ordered. -Patient took her home dose of Eliquis today. Will D/C due to renal function. -Heparin IV drip without bolus beginning tomorrow. History of Present Illness Chief Complaint: SOB since last night Primary Care Provider: Shay Hammond DO Patient is a 71 y/o female with PMH of CAD, CKD4, HTN, HLD, DM2, paroxysmal atrial fibrillation, HFpEF, and gastric ulcers who presents today from home via EMS with chest pain and SOB that has been ongoing since last night.Patient states she checks her weights daily and noticed an increase by 3 pounds in the last 48 hours as well as increased swelling in her lower extremities and abdomen. She attempted to manage this on her own by increasing her Lasix dose from 40 daily to 80 daily. She also took spironolactone 25 mg, which she states she does not take regularly. This did not alleviate her fluid retention, and last evening around 9 PM she developed shortness of breath and stabbing chest pain. States that this is commonly how she presents when she is fluid overloaded. At baseline she has a degree of orthopnea, however over the last few days she has required more pillows to sleep with. She denies fever/chills, headache, body aches, productive cough, rhinorrhea, chest tightness, palpitations, neck/jaw/arm numbness or tingling, abdominal pain, nausea, vomiting, diarrhea, constipation. Patient was given sublingual nitroglycerin as well as an aspirin in route via EMS and this seems to have resolved her shortness of breath and chest pain. She also received labetalol for elevated blood pressure. On arrival here to the ED she is hypertensive at 231/120. BUN 72, creatinine 5.72, troponin 0.07, BNP 443. Patient received 40 mg IV Lasix as well as 40 no equivalent potassium in ED. Hospital team was called for admission and further management. Allergies Allergy/AdvReac Type Severity Reaction Status Date / Time heparin Allergy Intermediate Hives Verified 11/25/21 13:50 insulin aspart Allergy Intermediate Hives Verified 11/25/21 13:50 [From Novolog U-100 Insulin aspart] meperidine AdvReac Intermediate hallucinate Verified 11/25/21 11:55 s lisinopril AdvReac Mild COUGHING Verified 11/25/21 11:55 Home Medications Medication Instructions Recorded Confirmed Type insulin lispro 100 unit/mL 0 unit SUBCUT TIDM MDD 75 units 05/26/21 11/25/21 History subcutaneous pen (Humalog KwikPen (U-100) Insulin) vs-0-pks-epa-fish oil-vit D3 300 1 cap PO QAM 05/26/21 11/25/21 History mg-1,000 mg-1,000 unit capsule (Fish Oil-Vit D3) insulin glargine 100 unit/mL (3 20 unit SUBCUT QAM #30 ml 06/05/21 11/25/21 Rx mL) subcutaneous pen (Lantus Solostar U-100 Insulin) apixaban 5 mg tablet (Eliquis) 5 mg PO BID #180 tab 07/21/21 11/25/21 Rx hydralazine 50 mg tablet 50 mg PO TID #270 tab 08/10/21 11/25/21 Rx clopidogrel 75 mg tablet (Plavix) 75 mg PO QAM #90 tab 09/15/21 11/25/21 Rx isosorbide mononitrate 60 mg 60 mg PO QAM #90 tab 10/24/21 11/25/21 Rx tablet,extended release 24 hr dicyclomine 10 mg capsule 10 mg PO TID PRN #90 cap 10/31/21 11/25/21 Rx allopurinol 100 mg tablet 100 mg PO QAM 11/25/21 11/25/21 History calcitriol 0.25 mcg capsule 0.25 mcg PO QAM 11/25/21 11/25/21 History furosemide 40 mg tablet 40 mg PO QAM 11/25/21 11/25/21 History metoprolol succinate 25 mg 25 mg PO QAM 11/25/21 11/25/21 History tablet,extended release 24 hr nifedipine 60 mg tablet,extended 60 mg PO QAM 11/25/21 11/25/21 History release 24 hr (Procardia XL) spironolactone 25 mg tablet 25 mg PO DAILY PRN 11/25/21 11/25/21 History Past Med/Surg History Medical History Acute pain of left foot CAD (coronary artery disease) Chronic heart failure with preserved ejection fraction (HFpEF) CKD (chronic kidney disease) Diverticulosis Elevated troponin Failure of outpatient treatment History of stent insertion of renal artery 2014 Hyperlipidemia Hypertension Hypertensive emergency Leukocytosis LVH (left ventricular hypertrophy) Lymphedema Pedal edema Renal artery stenosis Status post myocardial infarction Vulvovaginal candidiasis Surgical History H/O heart artery stent Family History Other Hypertension Social History Smoking Status: Former smoker Second Hand Exposure: No; Do You Dip or Chew Tobacco: No; Hx Alcohol Use: No Hx Substance Use: No Preferred Language: Frisian Communication Ability: Effective Data Coder Operator Required: No Beliefs That Will Affect Care: Faith Faith Beliefs: [employer] marital status: Single Current Living Situation: Family Current Living Situation Comment: Lives with grandson How many Children do You have: 2 Other Information That Helps Us Care for You: No Feels Safe at Home: Yes Safety Concerns: Feels Safe At This Time Assistive Devices: Glasses Review of Systems Review of Systems: Constitutional: No fever, sweats or chills Eyes: No diplopia, no worsening or blurred vision ENT: normal hearing, no trouble swallowing Respiratory: Repeat reports shortness of breath at rest and exertion No cough, no sputum. Cardiovascular: Reports stabbing chest pain, denies tightness or palpitations Abdomen: No pain, nausea, vomiting, diarrhea or constipation Musculoskeletal: Reports bilateral lower extremity edema; no joint pain, calf pain. Neurologic: No weakness, numbness/tingling, or balance problems Psychiatric: No anxiety or depression Skin: No rash or itch Physical Exam Physical Exam: General: awake, alert, no apparent distress, able to compensate without difficulty. Head: Normocephalic, atraumatic ENT: PERRL, EOMI, no pharyngeal exudate, mucous membranes moist Chest: Clear to auscultation, on room air, no adventitious breath sounds Cardiac: Regular rate and rhythm, no murmur, normal peripheral pulses, good capillary refill Abdominal: NABS x 4 quadrants, soft, nontender to palpation, no rebound, guarding or tenderness Extremities: 2+ peripheral bilateral lower extremity edema; No erythema, calfs nontender to palpation Psych: Normal mood and affect Neuro: AAO x 3, strength intact bilaterally and rated 5/5, no motor deficits, speech is clear, no peripheral sensory deficits Skin: no rash or erythema Results & Data Results & Data ([facility]) Vital Signs (Past 12 Hours) Vital Signs Temp Pulse Resp BP Pulse Ox 11/25/21 10:29 67 22 96 11/25/21 10:20 36.7 C 69 22 231/120 H 96 Laboratory Results Abnormal lab results 11/25/21 11/25/21 11/25/21 Range/Units 10:42 10:42 10:42 WBC 14.23 H (4.8-10.8) K/uL RBC 3.62 L (4.2-5.4) M/uL Hgb 10.3 L (12.0-16.0) g/dL Hct 32.5 L (37-47) % MCHC 31.7 L (32-36) g/dL RDW Std Deviation 54.0 H (36.4-46.3) fL RDW Coeff of Ekaterina 16.5 H (11.5-14.5) % Neut # (Auto) 11.62 H (1.4-6.5) K/uL Lymph # (Auto) 1.11 L (1.2-3.4) K/uL Rhea # (Auto) 0.96 H (0.11-0.59) K/uL Immature Gran # (Auto) 0.12 H (0.00-0.02) K/uL APTT 34.2 H (21.0-31.0) Seconds Potassium 3.2 L (3.5-5.1) mmol/L BUN 72 H (6-23) mg/dl Creatinine 5.72 H* (0.6-1.2) mg/dl Glucose 110 H (70-99(Fasting)) mg/dl AST 10 L (13-39) U/L Alkaline Phosphatase 106 H (34-104) U/L Troponin I 0.07 H* (0-0.04) ng/ml B-Natriuretic Peptide (0-100) pg/ml Albumin 3.3 L (3.4-5.0) gm/dl 11/25/21 Range/Units 10:42 WBC (4.8-10.8) K/uL RBC (4.2-5.4) M/uL Hgb (12.0-16.0) g/dL Hct (37-47) % MCHC (32-36) g/dL RDW Std Deviation (36.4-46.3) fL RDW Coeff of Ekaterina (11.5-14.5) % Neut # (Auto) (1.4-6.5) K/uL Lymph # (Auto) (1.2-3.4) K/uL Rhea # (Auto) (0.11-0.59) K/uL Immature Gran # (Auto) (0.00-0.02) K/uL APTT (21.0-31.0) Seconds Potassium (3.5-5.1) mmol/L BUN (6-23) mg/dl Creatinine (0.6-1.2) mg/dl Glucose (70-99(Fasting)) mg/dl AST (13-39) U/L Alkaline Phosphatase (34-104) U/L Troponin I (0-0.04) ng/ml B-Natriuretic Peptide 443 H (0-100) pg/ml Albumin (3.4-5.0) gm/dl Diagnostic Findings Chest X-Ray 11/25/21 10:07 XR chest 1V portable HISTORY: 71 years-old Female Chest Pain . Acute atypical chest pain COMPARISON: 05/29/2021 TECHNIQUE: Portable AP view of the chest FINDINGS: Cardiac silhouette is enlarged. Pulmonary vascular congestion with interstitial coarsening. Trace pleural effusions. Mild left basilar consolidation. No pneumothorax. Degenerative changes of the shoulders and spine. IMPRESSION: 1. Cardiomegaly with pulmonary vascular congestion and interstitial coarsening suggestive of pulmonary edema. 2. Trace pleural effusions with mild left lung base consolidation. ECG Additional Comments: Normal sinus rhythm Left ventricular hypertrophy with repolarization abnormality Prolonged QT Abnormal ECG When compared with ECG of 16-JUN-2021 02:47, Sinus rhythm has replaced Atrial fibrillation Vent. rate has decreased BY [address] no longer depressed in Anterior leads Code Status & VTE Plan Code Status Full Code Supervising Physician Co-Signing Physician Notes I personally saw and examined the patient. I verified all andrews points and agree with Becka Lee PA-C with the following exceptions and/or additions: 71 year old female with uncontrolled resistant hypertension and CKD with new onset shortness of breath. Repeated episodes with shortness of breath and pulmonary edema in the past realted to TIFFANY and elevated BP. Similar elevated troponin in setting of hypertension during May admission. O/E A&Ox3, HS 1+2, 2/6 systolic murmur, Chest bibasal fine crackles, pedal edema 1+ pretibial, Abdo SNT, BS +ve A/P Chest pain - multiple episodes of similar pain related to GERD vs. hypertensive emergency. Previously on pantoprazole and famotidine - unclear why she is still not taking this. Will restart on pantoprazole 40mg PO daily. Low suspicion of ACS unless troponin uptrending despite prior DAVID placed in 2019. Hypertensive urgency - possible emergency given pulmonary edema and elevated troponin although given similar episodes with complete resolution will admit to med/surg unless troponins are uptrending. EKG without acute ischemic changes. Continue her usual medications with switching Lasix 40mg PO daily to 40mg IV BID and additional hydralazine IV PRN for sBP > 200 and will slowly lower BP over the next 24-48 hours. Renin/aldosterone levels as none previously on file with AM labs. Acute on chronic heart failure with preserved ejection fraction - pulmonary edema primarily secondary to CKD, no need to repeat TTE, Lasix as above, strict I&OS, daily weights, low Na, fluid restricted diet CKD stage 5 - appears to have progressed since last hospitalization. Heading towards [facility] per prior nephrology notes. Patient reports venous mapping in . Given possibility patient is failing diuretics therapy will consult nephrology as may need to [facility] for fluid management. Paroxysmal atrial fibrillation - given CKD stage 5 will hold apixaban and switch to IV heparin standard without bolus in AM. Pending decision regarding [facility] and Hypokalemia - Replacement as above, Repeat BMP in AM PG Care Time/CCT Total # of Minutes Spent Total Time Spent with Patient: Total time spent is greater than 50% in coordination of care (as documented) at patient's floor/unit and/or counseling patient: Coding Level of Care Code 68758 Initial Inpt Care Lvl 3 Diagnoses CKD (chronic kidney disease), stage IV N18.4 Type 2 diabetes mellitus E11.9 Paroxysmal atrial fibrillation I48.0 Chronic heart failure with preserved ejection fraction (HFpEF) I50.32 CAD (coronary artery disease) I25.10 Associated angina: without angina Coronary Disease-Associated Artery/Lesion type: [place] artery [place] vs. transplanted heart: [place] heart Hyperlipidemia E78.5 Hyperlipidemia type: unspecified Hypertension I10 Hypertension type: essential hypertension Elevated troponin R77.8 Gastric ulcer K25.9 Shortness of breath R06.02 DVT prophylaxis Z29.9 Hypokalemia E87.6 (1) CAD (coronary artery disease) Associated angina: without angina Coronary Disease-Associated Artery/Lesion type: [place] artery [place] vs. transplanted heart: [place] heart Qualified Code(s): I25.10 - Atherosclerotic heart disease of [place] coronary artery without angina pectoris (2) Hyperlipidemia Hyperlipidemia type: unspecified Qualified Code(s): E78.5 - Hyperlipidemia, unspecified (3) Hypertension Hypertension type: essential hypertension Qualified Code(s): I10 - Essential (primary) hypertension
[2021-11-25] MEDS ORDERED: hydrALAZINE HCL 20 MG/ML VIAL IV ONE (13:05)
[2021-11-25 13:54] LABS: BUN Creatinine Ratio 12.8 (10-20); Calcium 8.9 mg/dl (8.5-10.1); Creatinine Clr Calc Pharmacy 9.3 ml/min; Est GFR (African American) 7.6 ml/min; Est GFR (Non-African American) 6.6 ml/min
[2021-11-25] MEDS ORDERED: PANTOprazole 40 MG TAB PO ONE (14:00)
[2021-11-25] MEDS ORDERED: CARBOHYDRATES FOR HYPOGLYCEMIA PO PRN (16:07)
[2021-11-25] MEDS ORDERED: GLUCOSE 10 TABS/TUBE PO PRN (16:07)
[2021-11-25] MEDS ORDERED: GLUCOSE 40% GEL 15 GM TUBE PO PRN (16:07)
[2021-11-25] MEDS ORDERED: POLYETHYLENE (MIRALAX) 17 GM PACK PO PRN (16:07)
[2021-11-25] MEDS ORDERED: hydrALAZINE HCL 20 MG/ML VIAL IV PRN (16:07)
[2021-11-25] MEDS ORDERED: ONDANSETRON INJ 2 MG/ML 2 ML VIAL IV PRN (16:07)
[2021-11-25] MEDS ORDERED: GLUCAGON FOR INJ 1 MG VIAL SQ PRN (16:07)
[2021-11-25] MEDS ORDERED: DEXTROSE 50% 50 ML SYRINGE IV PRN (16:07)
[2021-11-25] MEDS ORDERED: FUROSEMIDE 40 MG TAB PO PRN (16:18)
[2021-11-25] MEDS ORDERED: INSULIN ASPART PER UNIT SC SCH (16:30)
[2021-11-25] MEDS ORDERED: FUROSEMIDE 40 MG TAB PO SCH (17:00)
[2021-11-25] MEDS: hydrALAZINE TAB 50 MG TAB PO SCH ×2 (17:11→21:46)
[2021-11-25 17:54] LABS: Basophils # (auto) 0.03 K/uL (0-0.2); Basophils % (auto) 0.2 %; Eosinophils # (auto) 0.32 K/uL (0-0.5); Eosinophils % (auto) 2.5 %; Hematocrit (blood only) 33.5 % (37-47); Hemoglobin 10.7 g/dL (12.0-16.0); Immature Granulocytes # (auto) 0.09 K/uL (0.00-0.02); Immature Granulocytes % (auto) 0.7 %; Lymphocytes # (auto) 1.55 K/uL (1.2-3.4); Mean Corpuscular Hemoglobin 28.8 pg (25-34); Mean Corpuscular Volume 90.3 fL (80-100); Mean Platelet Volume 10.7 fL (7.4-10.4); Monocytes # (auto) 0.79 K/uL (0.11-0.59); Monocytes % (auto) 6.1 %; Neutrophils # (auto) 10.18 K/uL (1.4-6.5); Neutrophils % (auto) 78.5 %; Platelet Count 336 K/uL (130-400); RDW Coefficient of Variation 16.6 % (11.5-14.5); Red Blood Count 3.71 M/uL (4.2-5.4); White Blood Count 12.96 K/uL (4.8-10.8)
[2021-11-25 18:06] LABS: INR 1.1 (0.9-1.1); Partial Thromboplastin Ratio 1.3; Partial Thromboplastin Time 33.5 Seconds (21.0-31.0); Prothrombin Time 11.1 Seconds (9.0-12.0)
[2021-11-25] MEDS: INSULIN LISPRO 100 UNIT/ML SC SCH ×2 (18:24→21:48)
[2021-11-25 18:37] LABS: Mean Corpuscular Hgb Conc 31.9 g/dL (32-36)
[2021-11-25] MEDS: NITROGLYCERIN 2% OINTMENT 30GM TUBE EXT SCH (21:44)
[2021-11-26] MEDS: NITROGLYCERIN 2% OINTMENT 30GM TUBE EXT SCH ×2 (04:04→10:05)
[2021-11-26 06:03] LABS: Basophils # (auto) 0.04 K/uL (0-0.2); Basophils % (auto) 0.3 %; Eosinophils # (auto) 0.39 K/uL (0-0.5); Hematocrit (blood only) 31.7 % (37-47); Hemoglobin 10.1 g/dL (12.0-16.0); Immature Granulocytes # (auto) 0.09 K/uL (0.00-0.02); Immature Granulocytes % (auto) 0.7 %; Lymphocytes % (auto) 12.9 %; Mean Corpuscular Hemoglobin 28.8 pg (25-34); Mean Corpuscular Hgb Conc 31.9 g/dL (32-36); Mean Corpuscular Volume 90.3 fL (80-100); Monocytes # (auto) 0.92 K/uL (0.11-0.59); Neutrophils # (auto) 10.03 K/uL (1.4-6.5); Neutrophils % (auto) 76.1 %; Platelet Count 341 K/uL (130-400); RDW Coefficient of Variation 16.7 % (11.5-14.5); Red Blood Count 3.51 M/uL (4.2-5.4); White Blood Count 13.17 K/uL (4.8-10.8)
[2021-11-26 06:12] LABS: Partial Thromboplastin Ratio 1.2; Partial Thromboplastin Time 30.5 Seconds (21.0-31.0)
[2021-11-26 06:54] LABS: Troponin I 0.07 ng/ml (0-0.04)
[2021-11-26 07:08] LABS: BUN Creatinine Ratio 11.8 (10-20); Calcium 8.4 mg/dl (8.5-10.1); Creatinine Clr Calc Pharmacy 9.4 ml/min; Est GFR (African American) 7.7 ml/min; Est GFR (Non-African American) 6.6 ml/min; Magnesium 2.1 mg/dl (1.7-2.4); Potassium 3.6 mmol/L (3.5-5.1)
[2021-11-26] MEDS: NIFEdipine EXTENDED REL 30 MG TABCR PO SCH (07:38)
[2021-11-26] MEDS: allopurinoL 100 MG TAB PO SCH (07:38)
[2021-11-26] MEDS: CALCITRIOL 0.25 MCG CAPSULE PO SCH (07:38)
[2021-11-26] MEDS: ISOSORBIDE MONO EXTENDED REL 60 MG TABCR PO SCH (07:38)
[2021-11-26] MEDS: PANTOprazole 40 MG TAB PO SCH (07:38)
[2021-11-26] MEDS: hydrALAZINE TAB 50 MG TAB PO SCH ×3 (07:39→22:16)
[2021-11-26] MEDS: [UNRECOGNIZED DRUG - OTHER] PO SCH (07:39)
[2021-11-26] MEDS: INSULIN LISPRO 100 UNIT/ML SC SCH ×4 (08:56→22:31)
[2021-11-26] MEDS: INSULIN GLARGINE SOLOSTAR 100 UNITS/ML 3 ML PEN SQ SCH (08:57)
[2021-11-26] MEDS ORDERED: METOPROLOL SUCC 25MG EXT REL TAB PO SCH (09:00)
[2021-11-26] MEDS ORDERED: FUROSEMIDE 40 MG/4 ML VIAL IV SCH (09:00)
[2021-11-26] MEDS ORDERED: HEPARIN SODIUM/DEXTROSE 25,000 UNITS/500 ML BAG IV SCH ×2 (09:00)
--- NOTE | 2021-11-26 11:53 | Nephrology Consultation ---
Date of Consultation November 26, 2021 Assessment & Plan (1) Stage 5 chronic kidney disease not on chronic dialysis: (2) Hypertensive urgency: (3) Proteinuria: (4) Anemia due to chronic kidney disease: (5) Metabolic acidosis: 71 y o F with stage 5 CKD with history of renovascular disease, hypertension and diabetes, baseline creatinine lately staying around 5.7-6. Admitted to the hospital yesterday with chest pain, progressive respiratory distress with volume overload. Started on IV diuretics with slight improvement in volume status however still volume overloaded and has mild respiratory distress. Has multiple stigmata of advanced CKD/ end-stage renal disease including anemia, metabolic acidosis. she had dialysis education and decided to do [facility] and currently waiting for vascular surgery appointment for AV fistula placement. -- Had long discussion with Ayana today about the current situation of her kidney function, volume status as well as need for renal replacement therapy. We discussed multiple options including preferred option would be to get a tunneled catheter and start on hemodialysis as her volume overload is mainly because of her advanced renal failure and decreased urine output. She may briefly respond to higher dose of diuretic however do not expect renal function to get any better than this and she may continue to have problem with volume overload leading to respiratory failure or acute coronary event. However she is reluctant to have a tunnel catheter and do dialysis at this time. She would like to wait for AV fistula to be placed and ready and explained that that can take somewhere from 4-5 months at minimum. -- will increase the diuretics to Lasix 80 milligram IV twice a day starting this afternoon and continue to monitor urine output, electrolyte, renal function and respiratory status. If there is significant improvement in volume status, will consider changing diuretics to orally however she will most likely need higher dose of diuretics than what she was at home. She will probably need at least 80 milligram twice a day orally. Will need close monitoring of renal function and electrolyte. -- Right arm nephrology precaution, no IV line for blood pressure check, save veins for AV fistula placement in future. -- will get vein mapping done while she is here -- will hold off on TRAE at this time, once blood pressure better controlled will give TRAE -- check iron study -- start on sodium bicarbonate 650 milligram twice a day -- increase metoprolol to 50 milligram daily and hydralazine 100 milligram t.i.d. --continue Calcitriol will follow Thank you for allowing me to participate in your patient's care. It was a pleasure to see Ayana up History of Present Illness Reason for Consultation: Stage 5 CKD, volume overload, metabolic acidosis and anemia, Evaluation for need for renal replacement therapy. Attending Physician: Elizabeth Schreiber MD History of Present Illness Ayana Mcnulty is a 71-year-old female with past medical history significant for stage 4/5 CKD, hypertension, diabetes, coronary artery disease, renovascular disease admitted to the hospital with progressive shortness of breath, volume overload and chest pain. Nephrology consult was requested for management of advanced CKD/ ESRD, volume overload, electrolyte abnormality and evaluation for possible need for renal replacement therapy. EMR records are reviewed in detail during patient's visit. Ayana presented to ER yesterday with progressive dyspnea, volume overload and chest pain over last few days. On admission EKG was negative for any acute ST-T changes. Troponins were just mildly elevated and stayed at stable. Chest x-ray showed trace bilateral pleural effusion, cardiomegaly and pulmonary vascular congestion. She was also noted to be in hypertensive urgency with systolic blood pressure above 200. EN route to hospital nitro paste was placed and her chest pain improved. She was given IV diuretics and she reports increased urine output through the night. Currently she feels respiratory status slightly improved however she was getting easily short of breath while talking. Her blood pressure slightly improved and this morning still elevated at 180 4/80. She has diastolic CHF with preserved EF, has been following with [facility]. Her estimated dry weight is 198-200 pounds. At home she was on Lasix 40 milligrams p.o. daily. As she has been getting short of breath over last few days she increased her Lasix to 80 milligram daily without much improvement. She was also taking spironolactone 25 milligram which she reports taking as needed. Has stage 4/5 CKD secondary to renovascular disease, hypertensive and diabetic nephropathy. Previously had intervention for right renal artery stenosis in 2013. Last renal imaging and Doppler in November 18 and showed bilateral atrophic kidney no renal artery stenosis. Baseline creatinine has been staying around 3.5-3.04.0 but since mid August 2021 creatinine has been staying around 5.7-6. Has moderate degree proteinuria. She has been following with Dr. Sandoval at [facility]. She had dialysis education and referred to vascular surgery for AV fistula. Even though she considered peritoneal dialysis once however currently she is not considering peritoneal dialysis because of high risk of intra-abdominal infection and plan to do in center hemodialysis when needed. Her blood pressure has always been poorly controlled, currently she is on h ydralazine, metoprolol, nifedipine and Lasix. Was also on spironolactone 25 milligram daily which she was taking as needed. History of coronary artery disease, status post stent before. This morning she feels her symptom somewhat improved, shortness of Breath is not as bad and chest pain resolved. She reports increased voiding over night although at home she has not been urinating as much. Allergies Allergy/AdvReac Type Severity Reaction Status Date / Time heparin Allergy Intermediate Hives Verified 11/25/21 13:50 insulin aspart Allergy Intermediate Hives Verified 11/25/21 13:50 [From Novolog U-100 Insulin aspart] meperidine AdvReac Intermediate hallucinate Verified 11/25/21 11:55 s lisinopril AdvReac Mild COUGHING Verified 11/25/21 11:55 Home Medications Medication Instructions Recorded Confirmed Type insulin lispro 100 unit/mL 0 unit SUBCUT TIDM MDD 75 units 05/26/21 11/25/21 History subcutaneous pen (Humalog KwikPen (U-100) Insulin) [id number]-[id number]-fish oil-vit D3 300 1 cap PO QAM 05/26/21 11/25/21 History mg-1,000 mg-1,000 unit capsule (Fish Oil-Vit D3) insulin glargine 100 unit/mL (3 20 unit SUBCUT QAM #30 ml 06/05/21 11/25/21 Rx mL) subcutaneous pen (Lantus Solostar U-100 Insulin) apixaban 5 mg tablet (Eliquis) 5 mg PO BID #180 tab 07/21/21 11/25/21 Rx hydralazine 50 mg tablet 50 mg PO TID #270 tab 08/10/21 11/25/21 Rx clopidogrel 75 mg tablet (Plavix) 75 mg PO QAM #90 tab 09/15/21 11/25/21 Rx isosorbide mononitrate 60 mg 60 mg PO QAM #90 tab 10/24/21 11/25/21 Rx tablet,extended release 24 hr dicyclomine 10 mg capsule 10 mg PO TID PRN #90 cap 10/31/21 11/25/21 Rx allopurinol 100 mg tablet 100 mg PO QAM 11/25/21 11/25/21 History calcitriol 0.25 mcg capsule 0.25 mcg PO QAM 11/25/21 11/25/21 History furosemide 40 mg tablet 40 mg PO QAM 11/25/21 11/25/21 History metoprolol succinate 25 mg 25 mg PO QAM 11/25/21 11/25/21 History tablet,extended release 24 hr nifedipine 60 mg tablet,extended 60 mg PO QAM 11/25/21 11/25/21 History release 24 hr (Procardia XL) spironolactone 25 mg tablet 25 mg PO DAILY PRN 11/25/21 11/25/21 History Patient History Medical History (Updated 11/26/21 @ 11:45 by Agnieszka Haile MD) Acute pain of left foot Anemia due to chronic kidney disease CAD (coronary artery disease) Chronic heart failure with preserved ejection fraction (HFpEF) CKD (chronic kidney disease) Diverticulosis Elevated troponin Failure of outpatient treatment History of stent insertion of renal artery 2013 Hyperlipidemia Hypertension Hypertensive emergency Hypertensive urgency Leukocytosis LVH (left ventricular hypertrophy) Lymphedema Metabolic acidosis Pedal edema Renal artery stenosis Stage 5 chronic kidney disease not on chronic dialysis Status post myocardial infarction Vulvovaginal candidiasis Surgical History H/O heart artery stent Family History Other Hypertension Social History Smoking Status: Former smoker Second Hand Exposure: No; Do You Dip or Chew Tobacco: No; Hx Alcohol Use: No Hx Substance Use: No Preferred Language: German Communication Ability: Effective Final Finisher Required: No Beliefs That Will Affect Care: Moravian Moravian Beliefs: Eastern Zoroastrian marital status: Single Current Living Situation: Family Current Living Situation Comment: Lives with grandson How many Children do You have: 2 Other Information That Helps Us Care for You: No Feels Safe at Home: Yes Safety Concerns: Feels Safe At This Time Assistive Devices: Glasses Review of Systems Review of Systems: Detailed review of system was otherwise unremarkable except mentioned in HPI Physical Exam Constitutional: WD/WN, vitals as above no acute distress Eyes: + anicteric sclerae ENMT: Ears: no hearing impairment Neck: normal visual inspection Thyroid: no thyromegaly Respiratory: + labored breathing; no respiratory distress and no cough Auscultation: + diminished lung sounds and + crackles Cardiovascular: Rate/Rhythm: regular rate and regular rhythm Heart Sounds: normal S1 and normal S2 Extremities: + edema Gastrointestinal (Abdomen): Inspection/Auscultation: abdomen normal to inspection and normal bowel sounds Percussion/Palpation: abdomen soft; abdomen nontender Musculoskeletal: Extremities: extremities normal to inspection Skin: no rashes Neurologic: no focal motor deficits and not confused Psychiatric: Orientation: alert and oriented x 3 Affect: euthymic affect Results & Data ([facility]) Vital Signs (Past 12 Hours) Vital Signs Temp Pulse Resp BP Pulse Ox 11/26/21 07:30 36.8 C 77 20 184/80 H 96 PG Care Time/CCT Total # of Minutes Spent Total Time Spent with Patient: Total time spent is greater than 50% in coordination of care (as documented) at patient's floor/unit and/or counseling patient: Coding Level of Care Code 80243 Initial Inpt Care Lvl 3 Diagnoses Stage 5 chronic kidney disease not on chronic dialysis N18.5 Hypertensive urgency I16.0 Proteinuria R80.9 Anemia due to chronic kidney disease N18.9; D63.1 Metabolic acidosis E87.2
--- NOTE | 2021-11-26 12:51 | Hospitalist Progress Note ---
Date of Service November 26, 2021 Assessment & Plan (1) Metabolic acidosis: (2) Hypertensive urgency: (3) Anemia due to chronic kidney disease: (4) Stage 5 chronic kidney disease not on chronic dialysis: (5) Elevated troponin: (6) Renal artery stenosis: (7) Type 2 diabetes mellitus: (8) Paroxysmal atrial fibrillation: (9) Gastric ulcer: (10) Acute on chronic heart failure with preserved ejection fraction: Plan: 71F admitted 11/25 with hypertensive urgency and volume overload in the setting of CKD5, HTN, DM, renovascular disease. HTN Urgency Chronically difficult to control BPs Presented with BP 230/120s with chest pain and dyspnea & volume overload Likely due to progressive renal function decline EKG without acute ischemia, stable flat troponemia as below. CXR pulmonary edema c/w HFpEF exacerbation as below Home meds:hydralazine 50 mg PO TID, metoprolol succ 25 mg PO QD, nifedipine 60 mg PO QD. PLAN - Increase hydralazine from 50 to 100mg PO TID - Stop metoprolol succinate 25mg. Start carvedilol 12.5mg BID - Continue nifedipine 60mg PO QD. - Continue imdur 60mg daily. Stop nitropaste - Can add ARB if potassium stays low/normal & additional agent needed (no lisinopril d/t cough) - Hydralazine 5 mg IV ordered as needed if systolic blood pressure > 200. Acute on Chronic HFpEF Acute exacerbation of HFpEF due to HTN urgency & progressive renal dysfunction Dry weight 200lb. Follows with CHF clinic Furosemide 40-80mg daily at home + spironolactone Last echo 05/2021: LVEF 65-70%, severe LVH, stable trace pericardial effusion CXR on admission with pulmonary edema/effusions - HTN control as above - IV furosemide 80mg BID Proteinuric CKD5, H/o renal artery stenosis s/p LRA stent 2013 - Suspected diabetic. Planning for dialysis. Awaiting AV fistula placement. - Baseline Cr 6, GFR <10 - with Anemia bHgb 10-11. Neph planning TRAE once HTN better controlled - with Metabolic acidosis (new today) HCO3 19. Start sodium bicarb 650 BID per n ephro - No Electrolyte derangements - BMD: Continue calcitriol - with Volume overload in s/o HFpEF + CKD5 - furosemide as above - Avoid nephrotoxic agents, renally dose all medications. - Neph consult appreciated - recommended tunneled catheter for IHD initiation but patient prefers to wait for AVF creation - will medically manage for now. Planning vein mapping this admission. Outpatient appt already set up for Dr Hayes per patient Troponemia Stable troponemia 0.07 on 3 serial measurements. Due to CKD. Presented with chest pain but EKG w/o acute ischemia & lack of rise in troponin not consistent with cardiac ischemia as etiology Chest pain resolved before nitropaste applied per patient. Stop nitropaste as above. HLD, CAD c/b PA s/p PCI 2009 & 2018 CAD c/b PA s/p PCI Lcx 08/2010 & RCA 09/2019 - Continue asa, plavix - Switch metop to carvedilol as above - Resume statin - atorvastatin 80 rather than rosuva given CKD5 T2DM A1c 04/29 On home lantus 20 qAM + lispro SSI - Continue lantus 20U qAM + lispro ac/hs pAfib, h/o DVT L calf 05/2021 - Continue home metoprolol - Home eliquis stopped due to renal function. - Continue hep gtt - Eliquis vs coumadin for AC on discharge Gastric ulcers - Continue pantoprazole 40 Gout - Continue allopurinol DVT ppx: heparin gtt as above Diet: renal Dispo: TBD, came from home Admission and Anticipated Discharge Date Admission Date: November 25, 2021 Subjective feeling better SOB improved no ongoing chest pain (resolved before nitropaste applied) ongoing leg swelling but improving labs stable remains significantly hypertensive Review of Systems Review of Systems: Urinating well No MANDUJANO blurry vision chest pain intermittent SOB constipation - taking prune juice LE edema (improving gradually) No abdominal pain N/V Physical Exam Physical Exam: General: Well appearing, sitting up comfortably, NAD CV: Normal rate, regular rhythm. Harsh systolic murmur Resp: Breathing comfortably on room air. No wheezes. Bibasilar crackles present. Normal WOB Abd: Soft, nontender, distended Ext: Warm, well perfused. 2+ pitting edema of b/l LE Neuro: alert oriented answering questions appropriately Results & Data Results & Data ([facility]) Vital Signs (Past 12 Hours) Vital Signs Temp Pulse Resp BP Pulse Ox 11/26/21 07:30 98.2 F 77 20 184/80 H 96 PG Care Time/CCT Total # of Minutes Spent Total Time Spent with Patient: Total time spent is greater than 50% in coordination of care (as documented) at patient's floor/unit and/or counseling patient: Coding Level of Care Code 12031 Subseq Hosp Care Lvl 3 Diagnoses Metabolic acidosis E87.2 Hypertensive urgency I16.0 Anemia due to chronic kidney disease N18.9; D63.1 Stage 5 chronic kidney disease not on chronic dialysis N18.5 Elevated troponin R77.8 Renal artery stenosis I70.1 Type 2 diabetes mellitus E11.9 Paroxysmal atrial fibrillation I48.0 Gastric ulcer K25.9 Acute on chronic heart failure with preserved ejection fraction I50.33
[2021-11-26] MEDS: ATORVASTATIN 40 MG TAB PO SCH (14:05)
[2021-11-26] MEDS: FUROSEMIDE 40 MG/4 ML VIAL IV SCH (15:16)
[2021-11-26 16:30] LABS: Partial Thromboplastin Ratio 1.7; Partial Thromboplastin Time 44.4 Seconds (21.0-31.0)
[2021-11-26] MEDS ORDERED: HEPARIN- STOP ORDER ONE (17:00)
[2021-11-26] MEDS: DICYCLOMINE HCL 10 MG CAP PO PRN (17:39)
[2021-11-26] MEDS: carvediloL 12.5 MG TAB PO SCH (22:16)
[2021-11-26] MEDS: SODIUM BICARBONATE 650 MG TAB PO SCH (22:16)
[2021-11-26] MEDS: APIXABAN 5 MG TABLET PO SCH (22:17)
[2021-11-27] MEDS: FUROSEMIDE 40 MG/4 ML VIAL IV SCH (05:34)
[2021-11-27] MEDS: DICYCLOMINE HCL 10 MG CAP PO PRN ×2 (05:46→23:19)
[2021-11-27 07:20] LABS: Basophils # (auto) 0.03 K/uL (0-0.2); Basophils % (auto) 0.3 %; Eosinophils # (auto) 0.32 K/uL (0-0.5); Eosinophils % (auto) 2.8 %; Hematocrit (blood only) 30.6 % (37-47); Hemoglobin 9.7 g/dL (12.0-16.0); Immature Granulocytes # (auto) 0.08 K/uL (0.00-0.02); Immature Granulocytes % (auto) 0.7 %; Lymphocytes # (auto) 1.37 K/uL (1.2-3.4); Lymphocytes % (auto) 12.2 %; Mean Corpuscular Hemoglobin 28.7 pg (25-34); Mean Corpuscular Hgb Conc 31.7 g/dL (32-36); Mean Corpuscular Volume 90.5 fL (80-100); Mean Platelet Volume 10.7 fL (7.4-10.4); Monocytes # (auto) 0.74 K/uL (0.11-0.59); Monocytes % (auto) 6.6 %; Neutrophils # (auto) 8.71 K/uL (1.4-6.5); Neutrophils % (auto) 77.4 %; Platelet Count 308 K/uL (130-400); RDW Coefficient of Variation 16.6 % (11.5-14.5); RDW Standard Deviation 54.7 fL (36.4-46.3); Red Blood Count 3.38 M/uL (4.2-5.4); White Blood Count 11.25 K/uL (4.8-10.8)
[2021-11-27 07:41] LABS: Partial Thromboplastin Ratio 1.2; Partial Thromboplastin Time 31.1 Seconds (21.0-31.0)
[2021-11-27 07:46] LABS: Estimated Average Glucose 146 mg/dl; Hemoglobin A1C 6.7 % (4.5-5.6)
[2021-11-27 08:00] LABS: Ferritin 119.3 ng/ml (8-388)
--- NOTE | 2021-11-27 08:11 | Ultrasound Report ---
ULTRASOUND RIGHT UPPER EXTREMITY FOR VENOUS MAPPING Clinical history: Right upper extremity venous mapping. COMPARISON STUDY: No priors. FINDINGS: Real-time grayscale and color Doppler sonography of the right upper extremity veins was per formed for the purpose of venous mapping. The right basilic and cephalic veins are patent and normall y compressible. The basilic vein ranges in caliber from 0.3 cm in the proximal upper extremity to 0.3 cm in the antecubital fossa. The basilic vein measures up to 0.3 cm in caliber in the forearm. The c ephalic vein ranges from 0.3 cm at the shoulder to 0.6 cm in the antecubital fossa. The cephalic vein measures up to 0.3 cm in the forearm. IMPRESSION: Right upper extremity venous mapping measurements as above. Electronically signed by: Carlos A Nazario M.D. 11/27/2021 8:10 AM
[2021-11-27 08:23] LABS: Creatinine Clr Calc Pharmacy 9.1 ml/min; Est GFR (African American) 7.4 ml/min; Est GFR (Non-African American) 6.4 ml/min
[2021-11-27 08:25] LABS: Calcium 8.3 mg/dl (8.5-10.1); Phosphorus 5.2 mg/dl (2.5-4.9); Potassium 3.3 mmol/L (3.5-5.1)
[2021-11-27] MEDS ORDERED: EPOETIN ALFA 20,000 UNITS/ML VIAL SQ ONE (08:45)
[2021-11-27] MEDS: INSULIN LISPRO 100 UNIT/ML SC SCH ×4 (08:49→20:35)
[2021-11-27] MEDS: INSULIN GLARGINE SOLOSTAR 100 UNITS/ML 3 ML PEN SQ SCH (08:50)
[2021-11-27] MEDS ORDERED: METOPROLOL SUCC 50MG EXT REL TAB PO SCH ×2 (09:00→10:30)
[2021-11-27] MEDS ORDERED: ONDANSETRON INJ 2 MG/ML 2 ML VIAL IV PRN (09:55)
[2021-11-27] MEDS: ATORVASTATIN 40 MG TAB PO SCH (10:01)
[2021-11-27] MEDS: ISOSORBIDE MONO EXTENDED REL 60 MG TABCR PO SCH (10:01)
[2021-11-27] MEDS: CALCITRIOL 0.25 MCG CAPSULE PO SCH (10:02)
[2021-11-27] MEDS: APIXABAN 5 MG TABLET PO SCH ×2 (10:03→20:15)
[2021-11-27] MEDS: NIFEdipine EXTENDED REL 30 MG TABCR PO SCH (10:03)
[2021-11-27] MEDS: allopurinoL 100 MG TAB PO SCH (10:03)
[2021-11-27] MEDS: PANTOprazole 40 MG TAB PO SCH (10:04)
[2021-11-27] MEDS: [UNRECOGNIZED DRUG - OTHER] PO SCH (10:04)
[2021-11-27] MEDS: carvediloL 12.5 MG TAB PO SCH (10:07)
[2021-11-27] MEDS: hydrALAZINE TAB 50 MG TAB PO SCH ×3 (10:07→20:15)
[2021-11-27] MEDS: SODIUM BICARBONATE 650 MG TAB PO SCH (10:07)
[2021-11-27] MEDS: FUROSEMIDE 80 MG TAB PO SCH (10:25)
--- NOTE | 2021-11-27 10:29 | Nephrology Progress Note ---
Date of Service November 27, 2021 Assessment & Plan (1) Stage 5 chronic kidney disease not on chronic dialysis: (2) Hypertensive urgency: (3) Proteinuria: (4) Anemia due to chronic kidney disease: (5) Metabolic acidosis: Plan: 71 y o F with stage 5 CKD with history of renovascular disease, hypertension and diabetes, baseline creatinine lately staying around 5.7-6. Admitted to the hospital yesterday with chest pain, progressive respiratory distress with volume overload. Started on IV diuretics with slight improvement in volume status however still volume overloaded and has mild respiratory distress. Has multiple stigmata of advanced CKD/ end-stage renal disease including anemia, metabolic acidosis. she had dialysis education and decided to do in center hemodialysis and currently waiting for vascular surgery appointment for AV fistula placement. Volume status and blood pressure improved. she complain of multiple symptoms she feels related to medication changes and wanted to go back to her home dose. --Change Lasix to 80 mg p.o. once a day, hydralazine back to 50 t.i.d. Metoprolol was increased to 50 mg yesterday however she never received it and looks like it was already discontinued. She was taking metoprolol 25 at home but currently she is on carvedilol. Carvedilol should be discontinued and she should be back to metoprolol 25 mg daily as per her request. -- she requested it to change the fluid restriction as it was ordered on admission. --Recommended sodium bicarbonate, Epogen and IV iron infusion however she refused all of those at this time. --continue Calcitriol Will follow Admission and Anticipated Discharge Date Admission Date: November 25, 2021 Ivis Piña was seen and evaluated in her room this morning. She was upset and "not happy" and complain of multiple symptoms including nausea, left lower back pain since yesterday and she feels that this is because of some new medication. She feels like her respiratory status improved significantly and she is getting off of extra fluid. She feels current Lasix dose is too much for her. She did not want any new medication and wanted to change that all of the medication back to her home dose. Blood pressure improved, renal function worsened slightly, has multiple electrolyte abnormality. Hemoglobin dropped to 9.7. Review of Systems Review of Systems: detailed review of system was negative except mentioned above. Physical Exam Constitutional: WD/WN, vitals as above no acute distress Eyes: + anicteric sclerae ENMT: Ears: no hearing impairment Neck: normal visual inspection Respiratory: no respiratory distress and no cough Cardiovascular: Rate/Rhythm: regular rate and regular rhythm Heart Sounds: normal S1 and normal S2 Extremities: + edema Musculoskeletal: Extremities: extremities normal to inspection Skin: no rashes Neurologic: no focal motor deficits and not confused Psychiatric: Orientation: alert and oriented x 3 Results & Data ([facility]) Vital Signs (Past 12 Hours) Vital Signs Temp Pulse Resp BP Pulse Ox 11/27/21 07:38 36.5 C 68 16 143/73 H 96 PG Care Time/CCT Total # of Minutes Spent Total Time Spent with Patient: Total time spent is greater than 50% in coordination of care (as documented) at patient's floor/unit and/or counseling patient: Coding Level of Care Code 74517 Subseq Hosp Care Lvl 3 Diagnoses Stage 5 chronic kidney disease not on chronic dialysis N18.5 Hypertensive urgency I16.0 Proteinuria R80.9 Anemia due to chronic kidney disease N18.9; D63.1 Metabolic acidosis E87.2
--- NOTE | 2021-11-27 14:42 | Hospitalist Progress Note ---
Date of Service November 27, 2021 Assessment & Plan (1) Metabolic acidosis: (2) Hypertensive urgency: (3) Anemia due to chronic kidney disease: (4) Stage 5 chronic kidney disease not on chronic dialysis: (5) Elevated troponin: (6) Renal artery stenosis: (7) Type 2 diabetes mellitus: (8) Paroxysmal atrial fibrillation: (9) Gastric ulcer: (10) Acute on chronic heart failure with preserved ejection fraction: Plan: 71F admitted 11/25 with hypertensive urgency and volume overload in the setting of CKD5, HTN, DM, renovascular disease. HTN Urgency Chronically difficult to control BPs Presented with BP 230/120s with chest pain and dyspnea & volume overload Likely due to progressive renal function decline EKG without acute ischemia, stable flat troponemia as below. CXR pulmonary edema c/w HFpEF exacerbation as below Home meds:hydralazine 50 mg PO TID, metoprolol succ 25 mg PO QD, nifedipine 60 mg PO QD. PLAN - Appreciate nephrology help in this, switched back to home meds of metoprolol and hydralazine - Continue nifedipine 60mg PO QD. - Continue imdur 60mg daily. - Lasix per nephrology management switched back to 80mg PO daily - Hydralazine 5 mg IV ordered as needed if systolic blood pressure > 200. - renin/aldosterone labs pending Acute on Chronic HFpEF Acute exacerbation of HFpEF due to HTN urgency & progressive renal dysfunction Dry weight 200lb. Follows with CHF clinic Furosemide 40-80mg daily at home + spironolactone Last echo 05/2021: LVEF 65-70%, severe LVH, stable trace pericardial effusion CXR on admission with pulmonary edema/effusions - HTN control as above - Lasix 80mg PO daily as above Proteinuric CKD5, H/o renal artery stenosis s/p LRA stent 2013 - Suspected diabetic. Planning for dialysis. Awaiting AV fistula placement. - Baseline Cr 6, GFR <10 - with Anemia bHgb 10-11. Neph planning TRAE once HTN better controlled - with Metabolic acidosis (new today) HCO3 19. Start sodium bicarb 650 BID per nephro - No Electrolyte derangements - BMD: Continue calcitriol - with Volume overload in s/o HFpEF + CKD5 - furosemide as above - Avoid nephrotoxic agents, renally dose all medications. - Neph consult appreciated - recommended tunneled catheter for IHD initiation but patient prefers to wait for AVF creation - will medically manage for now. Planning vein mapping this admission. Outpatient appt already set up for Dr Danial alexander per patient Chest pain Suspect related to her chronic gastritis and not taking PPI at home. Continue pantoprazole 40mg PO daily Stable troponemia 0.07 on 3 serial measurements. Due to CKD. Presented with chest pain but EKG w/o acute ischemia & lack of rise in troponin not consistent with cardiac ischemia as etiology Chest pain resolved before nitropaste applied per patient. Stop nitropaste as above. HLD, CAD c/b [place] s/p PCI 2009 & 2018 CAD c/b [place] s/p PCI Lcx 08/2010 & RCA 09/2019 - Continue asa, plavix - Resume statin - atorvastatin 80 rather than rosuva given CKD5 T2DM A1c 04/29 On home lantus 20 qAM + lispro SSI - Continue lantus 20U qAM + lispro ac/hs pAfib, h/o DVT L calf 05/2021 - Continue home metoprolol - Home eliquis stopped due to renal function. - Continue hep gtt - Eliquis vs coumadin for AC on discharge Gastric ulcers - Continue pantoprazole 40mg PO daily Gout - Continue allopurinol DVT ppx: Eliquis restarted Diet: low Na, T2DM Dispo: TBD, came from home Admission and Anticipated Discharge Date Admission Date: November 25, 2021 Subjective Patient declining multiple interventions recommended by nephrology. She has been feeling nauseous and feels her fluid situation is much improved from admission therefore wishes to go back on her usual medications at this time. Increased dose of lasix prescribed by nephrology. We discussed the reasons for changes in medications but since she was mainly her for her hypervolemic state and this has improved she does not wish to change much else at this time. Requests fluid restriction is removed which seems reasonable since she will not be sticking to this at home therefore needs to tailor medications towards a non-fluid restricted amount that she takes in. No abdominal pain or change in bowels associated with her nausea. Nausea easily resolved with ondansetron given and she is feeling improved already. Review of Systems Review of Systems: All systems reviewed & are unremarkable except as noted in Subjective Physical Exam Constitutional: + obese; no acute distress Respiratory: normal respiratory effort Auscultation: + crackles (bibasal); no wheezes Cardiovascular: Rate/Rhythm: regular rate and regular rhythm Heart Sounds: no murmur Extremities: normal capillary refill and + pedal edema (1+ b/l pre tibial similar to admission, pt reports improved) Gastrointestinal (Abdomen): Inspection/Auscultation: normal bowel sounds Percussion/Palpation: abdomen soft; abdomen nontender, no guarding and abdomen not rigid Skin: no rashes, warm and dry Psychiatric: A+Ox3, euthymic affect Results & Data Results & Data ([facility]) Vital Signs (Past 12 Hours) Vital Signs Temp Pulse Pulse Resp BP Pulse Ox 11/27/21 14:39 36.8 C 66 16 146/74 H 93 11/27/21 07:38 36.5 C 68 16 143/73 H 96 PG Care Time/CCT Total # of Minutes Spent Total Time Spent with Patient: Total time spent is greater than 50% in coordination of care (as documented) at patient's floor/unit and/or counseling patient: Coding Level of Care Code 86457 Subseq Hosp Care Lvl 2 Diagnoses Metabolic acidosis E87.2 Hypertensive urgency I16.0 Anemia due to chronic kidney disease N18.9; D63.1 Stage 5 chronic kidney disease not on chronic dialysis N18.5 Elevated troponin R77.8 Renal artery stenosis I70.1 Type 2 diabetes mellitus E11.9 Paroxysmal atrial fibrillation I48.0 Gastric ulcer K25.9 Acute on chronic heart failure with preserved ejection fraction I50.33
[2021-11-28 07:34] LABS: Basophils # (auto) 0.03 K/uL (0-0.2); Basophils % (auto) 0.2 %; Eosinophils # (auto) 0.28 K/uL (0-0.5); Eosinophils % (auto) 2.2 %; Hematocrit (blood only) 31.8 % (37-47); Immature Granulocytes # (auto) 0.09 K/uL (0.00-0.02); Immature Granulocytes % (auto) 0.7 %; Lymphocytes # (auto) 1.58 K/uL (1.2-3.4); Lymphocytes % (auto) 12.3 %; Mean Corpuscular Hemoglobin 28.6 pg (25-34); Mean Corpuscular Hgb Conc 31.4 g/dL (32-36); Mean Corpuscular Volume 90.9 fL (80-100); Mean Platelet Volume 10.4 fL (7.4-10.4); Monocytes # (auto) 0.72 K/uL (0.11-0.59); Monocytes % (auto) 5.6 %; Neutrophils # (auto) 10.14 K/uL (1.4-6.5); Platelet Count 326 K/uL (130-400); RDW Coefficient of Variation 16.8 % (11.5-14.5); RDW Standard Deviation 55.6 fL (36.4-46.3); White Blood Count 12.84 K/uL (4.8-10.8)
[2021-11-28 07:48] LABS: Partial Thromboplastin Ratio 1.3; Partial Thromboplastin Time 33.8 Seconds (21.0-31.0)
[2021-11-28 08:05] LABS: Albumin Level 3.3 gm/dl (3.4-5.0); BUN Creatinine Ratio 12.6 (10-20); Calcium 8.8 mg/dl (8.5-10.1); Creatinine Clr Calc Pharmacy 8.8 ml/min; Est GFR (African American) 7.2 ml/min; Est GFR (Non-African American) 6.2 ml/min; Phosphorus 6.4 mg/dl (2.5-4.9); Potassium 3.7 mmol/L (3.5-5.1)
[2021-11-28] MEDS: DICYCLOMINE HCL 10 MG CAP PO PRN (08:24)
[2021-11-28] MEDS: allopurinoL 100 MG TAB PO SCH (08:24)
[2021-11-28] MEDS: NIFEdipine EXTENDED REL 30 MG TABCR PO SCH (08:24)
[2021-11-28] MEDS: ATORVASTATIN 40 MG TAB PO SCH (08:24)
[2021-11-28] MEDS: PANTOprazole 40 MG TAB PO SCH (08:25)
[2021-11-28] MEDS: APIXABAN 5 MG TABLET PO SCH ×2 (08:25→19:57)
[2021-11-28] MEDS: ISOSORBIDE MONO EXTENDED REL 60 MG TABCR PO SCH (08:25)
[2021-11-28] MEDS: METOPROLOL SUCC 25MG EXT REL TAB PO SCH (08:25)
[2021-11-28] MEDS: FUROSEMIDE 80 MG TAB PO SCH (08:26)
[2021-11-28] MEDS: CALCITRIOL 0.25 MCG CAPSULE PO SCH (08:26)
[2021-11-28] MEDS: [UNRECOGNIZED DRUG - OTHER] PO SCH (08:27)
[2021-11-28] MEDS: hydrALAZINE TAB 50 MG TAB PO SCH ×3 (08:27→19:57)
[2021-11-28] MEDS: INSULIN GLARGINE SOLOSTAR 100 UNITS/ML 3 ML PEN SQ SCH (08:29)
[2021-11-28] MEDS: INSULIN LISPRO 100 UNIT/ML SC SCH ×4 (08:31→21:02)
--- NOTE | 2021-11-28 10:53 | Nephrology Progress Note ---
Date of Service November 28, 2021 Assessment & Plan (1) Stage 5 chronic kidney disease not on chronic dialysis: (2) Hypertensive urgency: (3) Proteinuria: (4) Anemia due to chronic kidney disease: (5) Metabolic acidosis: Plan: 71 y o F with stage 5 CKD with history of renovascular disease, hypertension and diabetes, baseline creatinine lately staying around 5.7-6. Admitted to the hospital yesterday with chest pain, progressive respiratory distress with volume overload. Started on IV diuretics with slight improvement in volume status however still volume overloaded and has mild respiratory distress. Has multiple stigmata of advanced CKD/ end-stage renal disease including anemia, metabolic acidosis. she had dialysis education and decided to do in center hemodialysis and currently waiting for vascular surgery appointment for AV fistula placement. Volume status and blood pressure improved. Creatinine slightly worsened with persistent metabolic acidosis and low hemoglobin. --Continue Lasix 80 mg once a day as per patient preference, monitor intake and output daily. --renal function and electrolyte in am, discharge pending improvement in renal function electrolyte. --continue Calcitriol Will follow Admission and Anticipated Discharge Date Admission Date: November 25, 2021 Ivis Piña was seen and evaluated in her room this morning. She feeling a lot better today, nausea resolved, left mid back pain seems to have improved somewhat, she feels she is ready to be discharged and looking for to get discharged tomorrow. Has been voiding normally however intake and output measurement shows only 500 mL of urine output over last 24 hours but she feels she has been urinating much more. Blood pressure improved and staying relatively stable. Slight worsening of creatinine noted today to 6.2, continues to have metabolic acidosis. Hemoglobin stabilized at 10.0. Review of Systems Review of Systems: detailed review of system was negative except mentioned above. Physical Exam Constitutional: WD/WN, vitals as above no acute distress Eyes: + anicteric sclerae ENMT: Ears: no hearing impairment Neck: normal visual inspection Respiratory: no respiratory distress and no cough Cardiovascular: Rate/Rhythm: regular rate and regular rhythm Heart Sounds: normal S1 and normal S2 Extremities: + edema Musculoskeletal: Extremities: extremities normal to inspection Skin: no rashes Neurologic: no focal motor deficits and not confused Psychiatric: Orientation: alert and oriented x 3 Results & Data ([facility]) Vital Signs (Past 12 Hours) Vital Signs Temp Pulse Resp BP Pulse Ox 11/28/21 07:39 36.9 C 65 17 155/75 H 91 PG Care Time/CCT Total # of Minutes Spent Total Time Spent with Patient: Total time spent is greater than 50% in coordination of care (as documented) at patient's floor/unit and/or counseling patient: Coding Level of Care Code 74778 Subseq Hosp Care Lvl 3 Diagnoses Stage 5 chronic kidney disease not on chronic dialysis N18.5 Hypertensive urgency I16.0 Proteinuria R80.9 Anemia due to chronic kidney disease N18.9; D63.1 Metabolic acidosis E87.2
--- NOTE | 2021-11-28 12:50 | Hospitalist Progress Note ---
Date of Service November 28, 2021 Assessment & Plan (1) Metabolic acidosis: (2) Hypertensive urgency: (3) Anemia due to chronic kidney disease: (4) Stage 5 chronic kidney disease not on chronic dialysis: (5) Elevated troponin: (6) Renal artery stenosis: (7) Type 2 diabetes mellitus: (8) Paroxysmal atrial fibrillation: (9) Gastric ulcer: (10) Acute on chronic heart failure with preserved ejection fraction: Plan: 71F admitted 11/25 with hypertensive urgency and volume overload in the setting of CKD5, HTN, DM, renovascular disease. HTN Urgency Chronically difficult to control BPs Presented with BP 230/120s with chest pain and dyspnea & volume overload Likely due to progressive renal function decline EKG without acute ischemia, stable flat troponemia as below. CXR pulmonary edema c/w HFpEF exacerbation as below Home meds:hydralazine 50 mg PO TID, metoprolol succ 25 mg PO QD, nifedipine 60 mg PO QD. PLAN - Appreciate nephrology help in this, switched back to home meds of metoprolol and hydralazine - Continue nifedipine 60mg PO QD. - Continue imdur 60mg daily. - Lasix per nephrology management switched back to 80mg PO daily - Hydralazine 5 mg IV ordered as needed if systolic blood pressure > 200. - renin/aldosterone labs pending - BMP daily, concerning increasing Cr that she is not going to manage fluid status for long as outpatient, refusing sodium bicarb and EPO Acute on Chronic HFpEF Acute exacerbation of HFpEF due to HTN urgency & progressive renal dysfunction Dry weight 200lb. Follows with CHF clinic Furosemide 40-80mg daily at home + spironolactone Last echo 05/2021: LVEF 65-70%, severe LVH, stable trace pericardial effusion CXR on admission with pulmonary edema/effusions - HTN control as above - Lasix 80mg PO daily as above Proteinuric CKD5, H/o renal artery stenosis s/p LRA stent 2013 - Suspected diabetic. Planning for dialysis. Awaiting AV fistula placement. - Baseline Cr 6, GFR <10 - with Anemia bHgb 10-11. Neph planning TRAE once HTN better controlled - with Metabolic acidosis (new today) HCO3 19. Start sodium bicarb 650 BID per nephro - No Electrolyte derangements - BMD: Continue calcitriol - with Volume overload in s/o HFpEF + CKD5 - furosemide as above - Avoid nephrotoxic agents, renally dose all medications. - Neph consult appreciated - recommended tunneled catheter for IHD initiation but patient prefers to wait for AVF creation - will medically manage for now. Planning vein mapping this admission. Outpatient appt already set up for Dr Hayes per patient Chest pain Suspect related to her chronic gastritis and not taking PPI at home. Continue pantoprazole 40mg PO daily Stable troponemia 0.07 on 3 serial measurements. Due to CKD. Presented with chest pain but EKG w/o acute ischemia & lack of rise in troponin not consistent with cardiac ischemia as etiology Chest pain resolved before nitropaste applied per patient. Stop nitropaste as above. HLD, CAD c/b [place] s/p PCI 2009 & 2018 CAD c/b [place] s/p PCI Lcx 08/2010 & RCA 09/2019 - Continue asa, plavix - Resume statin - atorvastatin 80 rather than rosuva given CKD5 T2DM A1c 04/29 On home lantus 20 qAM + lispro SSI - Continue lantus 20U qAM + lispro ac/hs pAfib, h/o DVT L calf 05/2021 - Continue home metoprolol - Home eliquis stopped due to renal function. - Continue hep gtt - Eliquis vs coumadin for AC on discharge Gastric ulcers - Continue pantoprazole 40mg PO daily Gout - Continue allopurinol DVT ppx: Eliquis restarted Diet: low Na, T2DM Dispo: TBD, came from home Admission and Anticipated Discharge Date Admission Date: November 25, 2021 Subjective No change in symptoms. Shortness of breath and chest pain resolved. Patient very reluctant to try different medications. Appreciate nephrology management of her BP and CKD, concerning Cr getting worse however no idication for urgent dialysis. Patient wishes to go to a dialysis center and discuss this with her family before committing. Review of Systems Review of Systems: All systems reviewed & are unremarkable except as noted in Subjective Physical Exam Constitutional: + obese; no acute distress Respiratory: normal respiratory effort Auscultation: + crackles (bibasal); no wheezes Cardiovascular: Rate/Rhythm: regular rate and regular rhythm Heart Sounds: no murmur Extremities: normal capillary refill and + pedal edema (1+ b/l pre tibial similar to admission, pt reports improved) Gastrointestinal (Abdomen): Inspection/Auscultation: normal bowel sounds Percussion/Palpation: abdomen soft; abdomen nontender, no guarding and abdomen not rigid Skin: no rashes, warm and dry Psychiatric: A+Ox3, euthymic affect Results & Data Results & Data ([facility]) Vital Signs (Past 12 Hours) Vital Signs Temp Pulse Resp BP Pulse Ox 11/28/21 07:39 36.9 C 65 17 155/75 H 91 PG Care Time/CCT Total # of Minutes Spent Total Time Spent with Patient: Total time spent is greater than 50% in coordination of care (as documented) at patient's floor/unit and/or counseling patient: Coding Level of Care Code 89591 Subseq Hosp Care Lvl 2 Diagnoses Metabolic acidosis E87.2 Hypertensive urgency I16.0 Anemia due to chronic kidney disease N18.9; D63.1 Stage 5 chronic kidney disease not on chronic dialysis N18.5 Elevated troponin R77.8 Renal artery stenosis I70.1 Type 2 diabetes mellitus E11.9 Paroxysmal atrial fibrillation I48.0 Gastric ulcer K25.9 Acute on chronic heart failure with preserved ejection fraction I50.33
[2021-11-29 06:46] LABS: Basophils # (auto) 0.04 K/uL (0-0.2); Basophils % (auto) 0.3 %; Eosinophils # (auto) 0.32 K/uL (0-0.5); Eosinophils % (auto) 2.1 %; Hemoglobin 9.7 g/dL (12.0-16.0); Immature Granulocytes # (auto) 0.08 K/uL (0.00-0.02); Immature Granulocytes % (auto) 0.5 %; Lymphocytes # (auto) 1.66 K/uL (1.2-3.4); Lymphocytes % (auto) 10.8 %; Mean Corpuscular Hemoglobin 28.4 pg (25-34); Mean Corpuscular Hgb Conc 31.3 g/dL (32-36); Mean Corpuscular Volume 90.6 fL (80-100); Mean Platelet Volume 11.1 fL (7.4-10.4); Monocytes # (auto) 1.26 K/uL (0.11-0.59); Monocytes % (auto) 8.2 %; Neutrophils # (auto) 11.94 K/uL (1.4-6.5); Neutrophils % (auto) 78.1 %; Platelet Count 361 K/uL (130-400); RDW Coefficient of Variation 16.7 % (11.5-14.5); RDW Standard Deviation 55.4 fL (36.4-46.3); Red Blood Count 3.42 M/uL (4.2-5.4)
[2021-11-29 06:59] LABS: Partial Thromboplastin Ratio 1.3; Partial Thromboplastin Time 35.1 Seconds (21.0-31.0)
[2021-11-29 07:50] LABS: Albumin Level 3.3 gm/dl (3.4-5.0); BUN Creatinine Ratio 13.3 (10-20); Calcium 8.5 mg/dl (8.5-10.1); Creatinine Clr Calc Pharmacy 8.5 ml/min; Est GFR (African American) 6.8 ml/min; Est GFR (Non-African American) 5.9 ml/min; Phosphorus 6.5 mg/dl (2.5-4.9); Potassium 3.7 mmol/L (3.5-5.1)
[2021-11-29] MEDS: APIXABAN 5 MG TABLET PO SCH (08:12)
[2021-11-29] MEDS: hydrALAZINE TAB 50 MG TAB PO SCH ×3 (08:12→19:52)
[2021-11-29] MEDS: PANTOprazole 40 MG TAB PO SCH ×2 (08:13→21:30)
[2021-11-29] MEDS: CALCITRIOL 0.25 MCG CAPSULE PO SCH (08:13)
[2021-11-29] MEDS: FUROSEMIDE 80 MG TAB PO SCH (08:13)
[2021-11-29] MEDS: METOPROLOL SUCC 25MG EXT REL TAB PO SCH (08:13)
[2021-11-29] MEDS: allopurinoL 100 MG TAB PO SCH (08:13)
[2021-11-29] MEDS: NIFEdipine EXTENDED REL 30 MG TABCR PO SCH (08:14)
[2021-11-29] MEDS: ATORVASTATIN 40 MG TAB PO SCH (08:14)
[2021-11-29] MEDS: ISOSORBIDE MONO EXTENDED REL 60 MG TABCR PO SCH (08:14)
[2021-11-29] MEDS: [UNRECOGNIZED DRUG - OTHER] PO SCH (08:15)
[2021-11-29] MEDS: INSULIN LISPRO 100 UNIT/ML SC SCH ×4 (08:19→21:03)
[2021-11-29] MEDS: INSULIN GLARGINE SOLOSTAR 100 UNITS/ML 3 ML PEN SQ SCH (08:19)
--- NOTE | 2021-11-29 12:00 | Nephrology Progress Note ---
Date of Service November 29, 2021 Assessment & Plan (1) Stage 5 chronic kidney disease not on chronic dialysis: (2) Hypertensive urgency: (3) Proteinuria: (4) Anemia due to chronic kidney disease: (5) Metabolic acidosis: Plan: 71 y o F with stage 5 CKD with history of renovascular disease, hypertension and diabetes, baseline creatinine lately staying around 5.7-6. Admitted to the hospital yesterday with chest pain, progressive respiratory distress with volume overload. Started on IV diuretics with slight improvement in volume status however still volume overloaded and has mild respiratory distress. Has multiple stigmata of advanced CKD/ end-stage renal disease including anemia, metabolic acidosis. she had dialysis education and decided to do in center hemodialysis and currently waiting for vascular surgery appointment for AV fistula placement. Respiratory status stable, urine output around 750 over last 24 hour and blood pressure continues to stay remained elevated. Renal function slowly but progressively worsening with creatinine up to 6.5, bicarb 18 and phosphate 6.5. Hemoglobin also staying low at 9.7. --Explained that although there is no emergency need for dialysis however with progressive worsening of renal function, multiple electrolyte abnormality and low hemoglobin and current eGFR around 5 to 8, best option would be to start on dialysis via tunneled dialysis catheter to avoid going into any emergencies including volume overload causing respiratory failure, acute coronary event with anemia and metabolic acidosis, electrolyte abnormality causing fatal and non fatal cardiac arrhythmia and others. Patient is reluctant to consider dialysis at this time as she feels she more needs more time to discuss with her family and she is very very reluctant to have tunneled dialysis catheter. Explained that since she does not have a AV fistula yet, it will be at least 4-5 months before she has a functioning AV fistula and I do not believe we can wait that long as she has history of repeated episodes of volume overload requiring hospitalization. As currently volume status and respiratory status acceptable we talked about other options such as holding diuretics for a day or 2 while monitoring her volume status in inpatient setting however she is reluctant to do so as she is concerned she may end up having problem with volume overload which is certainly a possibility. We plan on keeping the diuretics at 80 mg daily and repeating lab tomorrow. Patient mentioned that whatever the lab shows tomorrow she is ready to go home tomorrow. She would like to discuss further with her primary refractory mixer Dr. Sandoval, advised her to have her nurse page Dr. Sandoval to call her back to discuss further. --Continue Lasix 80 mg once a day as per patient preference, monitor intake and output daily. -- recommend changing Eliquis to 2.5 mg twice a day if patient is agreeable. again she refused bicarbonate, TRAE, Venofer. With phosphate 6.5 she should be also on phosphate binder with meal. Would recommend Renvela 1 tablet t.i.d. w ith meal if she is agreeable. the --continue Calcitriol Will follow Admission and Anticipated Discharge Date Admission Date: November 25, 2021 Ivis Piña was seen and evaluated in her room this morning. She is feeling well,, nausea resolved. Has been voiding normally however intake and output measurement shows 750 mL of urine output over last 24 hours. Blood pressure has been high. Continued worsening of renal function, creatinine up to 6.5, BUN 87 with multi ple electrolyte abnormality including metabolic acidosis and hyperphosphatemia. Hemoglobin staying relatively low at 9.7. Review of Systems Review of Systems: detailed review of system was negative except mentioned above. Physical Exam Constitutional: WD/WN, vitals as above no acute distress Eyes: + anicteric sclerae ENMT: Ears: no hearing impairment Neck: normal visual inspection Respiratory: no respiratory distress and no cough Auscultation: lungs clear to auscultation bilaterally Cardiovascular: Rate/Rhythm: regular rate and regular rhythm Heart Sounds: normal S1 and normal S2 Extremities: + edema Skin: no rashes Neurologic: no focal motor deficits and not confused Psychiatric: Orientation: alert and oriented x 3 Affect: euthymic affect Results & Data ([facility]) Vital Signs (Past 12 Hours) Vital Signs Temp Pulse Pulse Resp BP Pulse Ox 11/29/21 08:17 74 171/81 H 93 11/29/21 07:33 36.9 C 59 L 20 160/81 H 96 11/29/21 05:52 36.7 C 69 20 167/72 H 95 11/29/21 05:30 94 PG Care Time/CCT Total # of Minutes Spent Total Time Spent with Patient: Total time spent is greater than 50% in coordination of care (as documented) at patient's floor/unit and/or counseling patient: Coding Level of Care Code 61709 Subseq Hosp Care Lvl 3 Diagnoses Stage 5 chronic kidney disease not on chronic dialysis N18.5 Hypertensive urgency I16.0 Proteinuria R80.9 Anemia due to chronic kidney disease N18.9; D63.1 Metabolic acidosis E87.2
[2021-11-29] MEDS ORDERED: ALUMINUM/MAGNESIUM SUSP 30 ML UDC PO STA (15:39)
[2021-11-29] MEDS: APIXABAN 2.5 MG TAB PO SCH (19:52)
--- NOTE | 2021-11-29 20:38 | Hospitalist Progress Note ---
Date of Service November 29, 2021 Assessment & Plan (1) Metabolic acidosis: (2) Hypertensive urgency: (3) Anemia due to chronic kidney disease: (4) Stage 5 chronic kidney disease not on chronic dialysis: (5) Elevated troponin: (6) Renal artery stenosis: (7) Type 2 diabetes mellitus: (8) Paroxysmal atrial fibrillation: (9) Gastric ulcer: (10) Acute on chronic heart failure with preserved ejection fraction: Plan: 71F admitted 11/25 with hypertensive urgency and volume overload in the setting of CKD5, HTN, DM, renovascular disease. HTN Urgency Chronically difficult to control BPs Presented with BP 230/120s with chest pain and dyspnea & volume overload Likely due to progressive renal function decline EKG without acute ischemia, stable flat troponemia as below. CXR pulmonary edema c/w HFpEF exacerbation as below Home meds:hydralazine 50 mg PO TID, metoprolol succ 25 mg PO QD, nifedipine 60 mg PO QD. PLAN - Appreciate nephrology help in this, switched back to home meds of metoprolol and hydralazine - Continue nifedipine 60mg PO QD. - Continue imdur 60mg daily. - Lasix per nephrology management switched back to 80mg PO daily - Hydralazine 5 mg IV ordered as needed if systolic blood pressure > 200. - renin/aldosterone labs pending - BMP daily, concerning increasing Cr that she is not going to manage fluid status for long as outpatient, refusing sodium bicarb and EPO per nephrology but appears to be open to these interventions with me but will await discussion with her regular railway head tender Dr Jaime Hess on Chronic HFpEF Acute exacerbation of HFpEF due to HTN urgency & progressive renal dysfunction Dry weight 200lb. Follows with CHF clinic Furosemide 40-80mg daily at home + spironolactone Last echo 05/2021: LVEF 65-70%, severe LVH, stable trace pericardial effusion CXR on admission with pulmonary edema/effusions - HTN control as above - Lasix 80mg PO daily as above Proteinuric CKD5, H/o renal artery stenosis s/p LRA stent 2013 - Suspected diabetic. Planning for dialysis. Awaiting AV fistula placement. - Baseline Cr 6, GFR <10 - with Anemia bHgb 10-11. Neph planning TRAE once HTN better controlled - with Metabolic acidosis (new today) HCO3 19. Start sodium bicarb 650 BID per nephro - No Electrolyte derangements - BMD: Continue calcitriol - with Volume overload in s/o HFpEF + CKD5 - furosemide as above - Avoid nephrotoxic agents, renally dose all medications. - Neph consult appreciated - recommended tunneled catheter for IHD initiation but patient prefers to wait for AVF creation - will medically manage for now. Planning vein mapping this admission. Outpatient appt already set up for Dr Hayes per patient Chest pain Suspect related to her chronic gastritis and not taking PPI at home. Continue pantoprazole 40mg PO - increased to BID 2/2 Stable troponemia 0.07 on 3 serial measurements. Due to CKD. Presented with chest pain but EKG w/o acute ischemia & lack of rise in troponin not consistent with cardiac ischemia as etiology Chest pain resolved before nitropaste applied per patient. HLD, CAD c/b MT s/p PCI 2009 & 2018 CAD c/b MT s/p PCI Lcx 08/2010 & RCA 09/2019 - Continue asa, plavix - Resume statin - atorvastatin 80 rather than rosuva given CKD5 T2DM A1c 04/29 On home lantus 20 qAM + lispro SSI - Continue lantus 20U qAM + lispro ac/hs pAfib, h/o DVT L calf 05/2021 - Continue home metoprolol - Home eliquis reduced to 2.5mg PO BID - as discussed with cardiology (Dr Ortiz) and nephrology Gastric ulcers - Continue pantoprazole 40mg PO BID Gout - Continue allopurinol DVT ppx: Eliquis restarted Diet: low Na, T2DM Dispo: TBD, came from home Admission and Anticipated Discharge Date Admission Date: November 25, 2021 Subjective No current symptoms. Cr increasing and patient resistant to all medicine changes. Handley much worse on increased dose of hydralazine and switching metoprolol to carvedilol. Having a lot of burping and gas today and offered simethicone but reportedly tried this before and made her worse. We will increase her pantoprazole back to 40mg PO BID which she was on in May. She wishes to discuss her care with her long time railway head tender Dr Sandoval who I spoke to today. He will call her later to discuss getting a tunnelled catheter. I explained I would feel a discharge at this time would be against medically advice as she has a high change of coming back hypervolemic and with an MT or worse if she was not set up with dialysis to manage her fluid balance given her worsening renal failure this could be days of weeks but not long enough for an AV fistula to mature. She has missed multiple follow up appointment with her railway head tender as discussed with Dr Sandoval. Discussed anticoagulation with cardiology Dr Ortiz and recommended reduction to 2.5mg PO BID. Review of Systems Review of Systems: All systems reviewed & are unremarkable except as noted in Subjective Physical Exam Constitutional: + obese; no acute distress Respiratory: normal respiratory effort Cardiovascular: Rate/Rhythm: regular rate and regular rhythm Heart Sounds: no murmur Extremities: normal capillary refill and + pedal edema (1+ b/l pre tibial similar to admission, pt reports improved) Gastrointestinal (Abdomen): Inspection/Auscultation: normal bowel sounds Percussion/Palpation: abdomen soft; abdomen nontender, no guarding and abdomen not rigid Skin: no rashes, warm and dry Psychiatric: A+Ox3, euthymic affect Results & Data Results & Data ([facility]) Vital Signs (Past 12 Hours) Vital Signs Pulse BP 11/29/21 19:50 70 152/79 H PG Care Time/CCT Total # of Minutes Spent Total Time Spent: 50 Total Time Spent with Patient: Total time spent is greater than 50% in coordination of care (as documented) at patient's floor/unit and/or counseling patient: Coding Level of Care Code 66376 Subseq Hosp Care Lvl 2 Diagnoses Metabolic acidosis E87.2 Hypertensive urgency I16.0 Anemia due to chronic kidney disease N18.9; D63.1 Stage 5 chronic kidney disease not on chronic dialysis N18.5 Elevated troponin R77.8 Renal artery stenosis I70.1 Type 2 diabetes mellitus E11.9 Paroxysmal atrial fibrillation I48.0 Gastric ulcer K25.9 Acute on chronic heart failure with preserved ejection fraction I50.33
[2021-11-30 07:37] LABS: Partial Thromboplastin Ratio 1.3; Partial Thromboplastin Time 34.7 Seconds (21.0-31.0)
[2021-11-30 07:55] LABS: Albumin Level 3.2 gm/dl (3.4-5.0); BUN Creatinine Ratio 14.3 (10-20); Calcium 8.3 mg/dl (8.5-10.1); Creatinine Clr Calc Pharmacy 8.8 ml/min; Est GFR (African American) 7.1 ml/min; Est GFR (Non-African American) 6.1 ml/min; Phosphorus 6.9 mg/dl (2.5-4.9); Potassium 3.5 mmol/L (3.5-5.1)
[2021-11-30] MEDS: INSULIN LISPRO 100 UNIT/ML SC SCH ×4 (08:28→21:11)
[2021-11-30] MEDS: ISOSORBIDE MONO EXTENDED REL 60 MG TABCR PO SCH (08:29)
[2021-11-30] MEDS: INSULIN GLARGINE SOLOSTAR 100 UNITS/ML 3 ML PEN SQ SCH (08:29)
[2021-11-30] MEDS: PANTOprazole 40 MG TAB PO SCH ×2 (08:30→21:12)
[2021-11-30] MEDS: APIXABAN 2.5 MG TAB PO SCH (08:30)
[2021-11-30] MEDS: hydrALAZINE TAB 50 MG TAB PO SCH ×3 (08:30→21:12)
[2021-11-30] MEDS: ATORVASTATIN 40 MG TAB PO SCH (08:31)
[2021-11-30] MEDS: CALCITRIOL 0.25 MCG CAPSULE PO SCH (08:31)
[2021-11-30] MEDS: METOPROLOL SUCC 25MG EXT REL TAB PO SCH (08:31)
[2021-11-30] MEDS: FUROSEMIDE 80 MG TAB PO SCH (08:32)
[2021-11-30] MEDS: allopurinoL 100 MG TAB PO SCH (08:32)
[2021-11-30] MEDS: NIFEdipine EXTENDED REL 30 MG TABCR PO SCH (08:33)
[2021-11-30] MEDS: [UNRECOGNIZED DRUG - OTHER] PO SCH (08:33)
[2021-11-30 09:13] LABS: Basophils # (auto) 0.03 K/uL (0-0.2); Basophils % (auto) 0.2 %; Eosinophils # (auto) 0.21 K/uL (0-0.5); Eosinophils % (auto) 1.7 %; Hematocrit (blood only) 30.8 % (37-47); Hemoglobin 9.9 g/dL (12.0-16.0); Immature Granulocytes # (auto) 0.08 K/uL (0.00-0.02); Immature Granulocytes % (auto) 0.6 %; Lymphocytes # (auto) 1.21 K/uL (1.2-3.4); Lymphocytes % (auto) 9.7 %; Mean Corpuscular Hemoglobin 28.5 pg (25-34); Mean Corpuscular Hgb Conc 32.1 g/dL (32-36); Mean Corpuscular Volume 88.8 fL (80-100); Mean Platelet Volume 10.8 fL (7.4-10.4); Monocytes # (auto) 1.02 K/uL (0.11-0.59); Monocytes % (auto) 8.2 %; Neutrophils # (auto) 9.92 K/uL (1.4-6.5); Neutrophils % (auto) 79.6 %; Platelet Count 334 K/uL (130-400); RDW Coefficient of Variation 16.6 % (11.5-14.5); RDW Standard Deviation 53.6 fL (36.4-46.3); Red Blood Count 3.47 M/uL (4.2-5.4); White Blood Count 12.47 K/uL (4.8-10.8)
--- NOTE | 2021-11-30 10:37 | Nephrology Progress Note ---
Date of Service November 30, 2021 Assessment & Plan (1) ESRD needing dialysis: (2) Hypertensive urgency: (3) Proteinuria: (4) Anemia due to chronic kidney disease: (5) Metabolic acidosis: (6) Hyperphosphatemia: Plan: 71 y o F with ESRD with history of renovascular disease, hypertension and diabetes, baseline creatinine lately staying around 5.7-6. Admitted to the hospitalwith chest pain, progressive respiratory distress with volume overload. Started on IV diuretics with slight improvement in volume status however still volume overloaded. Has multiple stigmata of advanced CKD/ end-stage renal disease including anemia, metabolic acidosis. she had dialysis education and decided to do in center hemodialysis and currently waiting for vascular surgery appointment for AV fistula placement. Renal function progressively worsened with multiple electrolyte abnormality, volume overload elevated blood pressure. --decided to get TDC and start on HD after discussion with Dr. Sandoval. Plan for TDC tomorrow and first HD. --Continue Lasix 80 mg once a day as per patient preference, monitor intake and output daily. --case management consulted to set up out pt HD at [facility]. --recommend starting on Renvela 1 tab TIDM --continue Calcitriol Will follow Admission and Anticipated Discharge Date Admission Date: November 25, 2021 Ivis Piña was seen and evaluated in her room this morning. She is feeling well,, nausea resolved. Blood pressure has been high. Continued worsening of renal function with multiple electrolyte abnormality including metabolic acidosis and hyperphosphatemia. Dr. Sandoval discussed with pt and family and she is now agreeable to start on HD. Review of Systems Review of Systems: detailed review of system was negative except mentioned above. Physical Exam Constitutional: WD/WN, vitals as above no acute distress Eyes: + anicteric sclerae ENMT: Ears: no hearing impairment Neck: normal visual inspection Respiratory: no respiratory distress and no cough Auscultation: lungs clear to auscultation bilaterally Cardiovascular: Rate/Rhythm: regular rate and regular rhythm Heart Sounds: normal S1 and normal S2 Extremities: + edema Skin: no rashes Neurologic: no focal motor deficits and not confused Psychiatric: Orientation: alert and oriented x 3 Affect: euthymic affect Results & Data ([facility]) Vital Signs (Past 12 Hours) Vital Signs Temp Pulse Resp BP Pulse Ox 11/30/21 07:35 37 C 75 20 161/79 H 95 02/02/22 22:46 37.1 C 67 18 123/73 90 PG Care Time/CCT Total # of Minutes Spent Total Time Spent with Patient: Total time spent is greater than 50% in coordination of care (as documented) at patient's floor/unit and/or counseling patient: Coding Level of Care Code 51950 Subseq Hosp Care Lvl 3 Diagnoses Hypertensive urgency I16.0 Proteinuria R80.9 Anemia due to chronic kidney disease N18.9; D63.1 Metabolic acidosis E87.2 ESRD needing dialysis N18.6; Z99.2 Hyperphosphatemia E83.39
--- NOTE | 2021-11-30 10:51 | Hospitalist Progress Note ---
Date of Service November 30, 2021 Assessment & Plan (1) ESRD needing dialysis: Plan: Mrs. Mcnulty is a 71 year old female with a history of Type 2 DM, HFpEF, Hypertension, Hyperlipidemia, CAD s/p Coronary Stent, PUD, Paroxysmal Atrial Fibrillation, and Stage 5 CKD with a need to start dialysis who presented on 11/25/21 with SOB, decreased urinary output despite use of oral Lasix, worsening renal failure with multiple electrolyte abnormalities, and metabolic acidosis. At the present time, the patient offers no complaints and is awaiting a tunnel dialysis catheter placement and her initial hemodialysis (both are planned for tomorrow). As per nephrology: "Renal function progressively worsened with multiple electrolyte abnormality, volume overload elevated blood pressure. -- Patient has decided to get TDC and start on HD after discussion with Dr. Sandoval. Plan for TDC tomorrow and first HD. -- Continue Lasix 80 mg once a day as per patient preference, monitor intake and output daily. -- Case management consulted to set up out pt HD at [facility]. -- Recommend starting on Renvela 1 tab TIDM -- Continue Calcitriol." (2) Hypertensive urgency: Plan: BP has ranged between 123/73 to 161/79 over the past 24 hours. -- Continue Toprol XL 25 mg daily. -- Continue Hydralazine 50 mg t.i.d.. -- IV Hydralazine as needed. -- Continue Nifedipine XL 60 mg daily. -- Continue Imdur ER 60 mg daily. -- Continue Lasix 80 mg daily. -- 2 gram low sodium diet. (3) Anemia due to chronic kidney disease: Plan: Dialysis is planned for tomorrow. -- Current Hgb is 9.9 g/dL. -- Manage as per nephrology. (4) Elevated troponin: Plan: History of CAD s/p LCx stent. No angina pectoris, elevated Troponin I 0.07 x 3 likely secondary to advanced renal disease. -- This is not an acute coronary syndrome. -- Continue Toprol XL 25 mg daily. -- Continue Hydralazine 50 mg t.i.d.. -- IV Hydralazine as needed. -- Continue Nifedipine XL 60 mg daily. -- Continue Imdur ER 60 mg daily. -- Continue Lasix 80 mg daily. -- 2 gram low sodium diet. -- Continue Plavix 75 mg daily. -- Continue Atorvastatin 80 mg daily. (5) Type 2 diabetes mellitus: Plan: -- Insulin requiring type 2 DM. -- BSG checks, insulin. (6) Paroxysmal atrial fibrillation: Plan: Currently in NSR. -- Continue Toprol XL 25 mg daily. -- Continue Eliquis 2.5 mg b.i.d.. (7) Acute on chronic heart failure with preserved ejection fraction: Plan: -- Volume status improved, approaching euvolemic state. -- Dialysis will make managing her volume status easier. Admission and Anticipated Discharge Date Admission Date: November 25, 2021 Supervising Physician Co-Signing Physician Notes chart reviewed agree stacey mason pa-c Subjective Mrs. Mcnulty is a 71 year old female with a history of Type 2 DM, HFpEF, Hypertension, Hyperlipidemia, CAD s/p Coronary Stent, PUD, Paroxysmal Atrial Fibrillation, and Stage 5 CKD with a need to start dialysis who presented on 11/25/21 with SOB, decreased urinary output despite use of oral Lasix, worsening renal failure with multiple electrolyte abnormalities, and metabolic acidosis. At the present time, the patient offers no complaints and is awaiting a tunnel dialysis catheter placement and her initial hemodialysis (both are planned for tomorrow). Patient denies any nausea, vomiting, abdominal pain, chest pain, or SOB. She denies any orthopnea or PND. She ate breakfast this morning. Review of Systems Review of Systems: 10 point ROS completed and is negative with the exception of what is mentioned in the HPI. Physical Exam Physical Exam: GENERAL: Patient in no acute distress. HEENT: Head is atraumatic, normocephalic. EOM's intact. Facies symmetric. No perioral cyanosis. NECK: No JVD. JVP is not elevated. Carotid upstrokes are + 2 bilaterally. CHEST/LUNGS: Clear to auscultation throughout all lung chaudhry. No wheezes, rales, or crackles. CVS: S1 and S2 are regular with a grade 2/6 basal systolic ejection murmur. No diastolic murmurs appreciated. PMI is nondisplaced. No lifts, heaves, or thrills. No abdominal aortic or renal bruits. ABDOMINAL EXAM: Bowel sounds are present. No masses, organomegaly, or tenderness. EXTREMITIES: No clubbing or cyanosis. Trace pretibial edema bilaterally. Intact radial pulses bilaterally. NEUROLOGIC EXAM: Patient is awake, alert, and oriented. Pleasant and cooperative. Answers questions appropriately. Speech is clear. Normal movement in all 4 extremities. Gait pattern was not assessed. Results & Data Results & Data ([facility]) Vital Signs (Past 12 Hours) Vital Signs Temp Pulse Resp BP Pulse Ox 11/30/21 07:35 37 C 75 20 161/79 H 95 Laboratory Results Laboratory Results - last 24 hr 11/29/21 11/29/21 11/29/21 11:59 17:07 20:48 WBC RBC Hgb Hct MCV MCH MCHC RDW Std Deviation RDW Coeff of Ekaterina Plt Count MPV Immature Gran % (Auto) Neut % (Auto) Lymph % (Auto) [place] % (Auto) Eos % (Auto) Baso % (Auto) Neut # (Auto) Lymph # (Auto) [place] # (Auto) Eos # (Auto) Baso # (Auto) Immature Gran # (Auto) APTT PTT Ratio Sodium Potassium Chloride Carbon Dioxide Anion Gap BUN Creatinine Est Cr Clr Drug Dosing Est GFR ( Amer) Est GFR (Non-Af Amer) BUN/Creatinine Ratio Glucose POC Glucose 153 H 139 H 129 H Calcium Phosphorus Albumin Hep Bs Antigen Hep Bs Antibody Hep Bs Antibody, Quant Hep B Core IgM Ab 11/30/21 11/30/21 11/30/21 06:57 06:57 08:09 WBC RBC Hgb Hct MCV MCH MCHC RDW Std Deviation RDW Coeff of Ekaterina Plt Count MPV Immature Gran % (Auto) Neut % (Auto) Lymph % (Auto) [place] % (Auto) Eos % (Auto) Baso % (Auto) Neut # (Auto) Lymph # (Auto) [place] # (Auto) Eos # (Auto) Baso # (Auto) Immature Gran # (Auto) APTT 34.7 H PTT Ratio 1.3 Sodium 136 Potassium 3.5 Chloride 103 Carbon Dioxide 18 L Anion Gap 15 H BUN 90 H Creatinine 6.29 H* Est Cr Clr Drug Dosing 8.8 Est GFR ( Amer) 7.1 Est GFR (Non-Af Amer) 6.1 BUN/Creatinine Ratio 14.3 Glucose 157 H POC Glucose 144 H Calcium 8.3 L Phosphorus 6.9 H Albumin 3.2 L Hep Bs Antigen Hep Bs Antibody Hep Bs Antibody, Quant Hep B Core IgM Ab 11/30/21 11/30/21 11/30/21 08:25 11:09 11:09 WBC 12.47 H RBC 3.47 L Hgb 9.9 L Hct 30.8 L MCV 88.8 MCH 28.5 MCHC 32.1 RDW Std Deviation 53.6 H RDW Coeff of Ekaterina 16.6 H Plt Count 334 MPV 10.8 H Immature Gran % (Auto) 0.6 Neut % (Auto) 79.6 Lymph % (Auto) 9.7 [place] % (Auto) 8.2 Eos % (Auto) 1.7 Baso % (Auto) 0.2 Neut # (Auto) 9.92 H Lymph # (Auto) 1.21 [place] # (Auto) 1.02 H Eos # (Auto) 0.21 Baso # (Auto) 0.03 Immature Gran # (Auto) 0.08 H APTT PTT Ratio Sodium Potassium Chloride Carbon Dioxide Anion Gap BUN Creatinine Est Cr Clr Drug Dosing Est GFR ( Amer) Est GFR (Non-Af Amer) BUN/Creatinine Ratio Glucose POC Glucose Calcium Phosphorus Albumin Hep Bs Antigen Pending Hep Bs Antibody Pending Hep Bs Antibody, Quant Pending Hep B Core IgM Ab Pending Diagnostic Findings CXR 11/25/21: Cardiac silhouette is enlarged. Pulmonary vascular congestion with interstitial coarsening. Trace pleural effusions. Mild left basilar consolidation. No pneumothorax. Degenerative changes of the shoulders and spine. IMPRESSION: 1. Cardiomegaly with pulmonary vascular congestion and interstitial coarsening suggestive of pulmonary edema. 2. Trace pleural effusions with mild left lung base consolidation. Medications Administered Medications insulin lispro 100 unit/mL subcutaneous pen (Humalog KwikPen (U-100) Insulin) 0 unit SUBCUT TIDM MDD 75 units 05/26/21 [History Confirmed 11/25/21] ok-[id number]-fish oil-vit D3 300 mg-1,000 mg-1,000 unit capsule (Fish Oil-Vit D3) 1 cap PO QAM 05/26/21 [History Confirmed 11/25/21] insulin glargine 100 unit/mL (3 mL) subcutaneous pen (Lantus Solostar U-100 Insulin) 20 unit SUBCUT QAM #30 ml 06/05/21 [Rx Confirmed 11/25/21] apixaban 5 mg tablet (Eliquis) 5 mg PO BID #180 tab 07/21/21 [Rx Confirmed 11/25/21] hydralazine 50 mg tablet 50 mg PO TID #270 tab 08/10/21 [Rx Confirmed 11/25/21] clopidogrel 75 mg tablet (Plavix) 75 mg PO QAM #90 tab 09/15/21 [Rx Confirmed 11/25/21] isosorbide mononitrate 60 mg tablet,extended release 24 hr 60 mg PO QAM #90 tab 10/24/21 [Rx Confirmed 11/25/21] dicyclomine 10 mg capsule 10 mg PO TID PRN #90 cap 10/31/21 [Rx Confirmed 11/25/21] allopurinol 100 mg tablet 100 mg PO QA 11/25/21 [History Confirmed 11/25/21] calcitriol 0.25 mcg capsule 0.25 mcg PO QA 11/25/21 [History Confirmed 11/25/21] furosemide 40 mg tablet 40 mg PO QA 11/25/21 [History Confirmed 11/25/21] metoprolol succinate 25 mg tablet,extended release 24 hr 25 mg PO [facility] 11/25/21 [History Confirmed 11/25/21] nifedipine 60 mg tablet,extended release 24 hr (Procardia XL) 60 mg PO QA 11/25/21 [History Confirmed 11/25/21] spironolactone 25 mg tablet 25 mg PO DAILY PRN 11/25/21 [History Confirmed 11/25/21] Home Medications Acetaminophen (Acetaminophen 500 Mg Tab) 500 mg PO Q6H PRN PRN Reason: Headache Stop: 12/26/21 16:48 Al Hydrox/Mg Hydrox/Simethicone (Aluminum/Magnesium Susp 30 Ml Udc) 15 ml PO Q6H PRN PRN Reason: Dyspepsia Stop: 12/25/21 20:25 Allopurinol ([facility] 100 Mg Tab) [facility] Stop: 12/26/21 08:59 Last Admin: 11/30/21 08:32 Dose: 100 mg Documented by: Apixaban (Apixaban 2.5 Mg Tab) 2.5 mg PO BID [facility] Stop: 12/29/21 20:59 Last Admin: 11/30/21 08:30 Dose: 2.5 mg Documented by: Atorvastatin Calcium (Atorvastatin 40 Mg Tab) [facility] [place] Stop: 12/26/21 12:44 Last Admin: 11/30/21 08:31 Dose: 80 mg Documented by: Calcitriol (Calcitriol 0.25 Mcg Capsule) 0.25 mcg [facility] [place] Stop: 12/26/21 08:59 Last Admin: 11/30/21 08:31 Dose: 0.25 mcg Documented by: Clopidogrel Bisulfate (Pt Own Med (Brand Only): Clopidogrel Bisulfate 75 Mg Tab) 75 mg PO [facility]; Protocol Stop: 12/26/21 08:59 Last Admin: 11/30/21 08:33 Dose: 75 mg Documented by: Dextrose (Dextrose 50% 50 Ml Syringe) 25 - 50 ml IV UD PRN; Protocol PRN Reason: Hypoglycemia Protocol Stop: 12/25/21 16:06 Dicyclomine HCl (Dicyclomine Hcl 10 Mg Cap) 10 mg PO TID PRN PRN Reason: Abdominal Discomfort Stop: 12/25/21 16:06 Last Admin: 11/27/21 23:19 Dose: 10 mg Documented by: Furosemide (Furosemide 80 Mg Tab) 80 mg PO [facility] Stop: 12/27/21 09:44 Last Admin: 11/30/21 08:32 Dose: 80 mg Documented by: Glucagon (Glucagon For Inj 1 Mg Vial) 1 mg SQ UD PRN; Protocol PRN Reason: Hypoglycemia Protocol Stop: 12/25/21 16:06 Glucose (Glucose 10 Tabs/Tube) 4 - 8 tabs PO UD PRN; Protocol PRN Reason: Hypoglycemia Protocol Stop: 12/25/21 16:06 Glucose (Glucose 40% Gel 15 Gm Tube) 15 - 30 gm PO UD PRN; Protocol PRN Reason: Hypoglycemia Protocol Stop: 12/25/21 16:06 Hydralazine HCl (Hydralazine Hcl 20 Mg/Ml Vial) 5 mg IV Q6H PRN PRN Reason: Hypertension Stop: 12/25/21 16:06 Hydralazine HCl (Hydralazine Tab 50 Mg Tab) 50 mg PO TID [facility] Stop: 12/27/21 13:59 Last Admin: 11/30/21 08:30 Dose: 50 mg Documented by: Insulin Glargine (Insulin Glargine Solostar 100 Units/Ml 3 Ml Pen) 20 units SQ [facility] Stop: 12/26/21 08:59 Last Admin: 11/30/21 08:29 Dose: 20 units Documented by: Insulin Human Lispro (Pt's Own- Insulin Lispro 100 Units/Ml Pen) 0 units SC ACHS [facility] Stop: 12/25/21 17:44 Last Admin: 11/30/21 08:28 Dose: 5 units Documented by: Isosorbide Mononitrate (Isosorbide [place] Extended Rel 60 Mg Tabcr) 60 mg PO QAM [facility] Stop: 12/26/21 08:59 Last Admin: 11/30/21 08:29 Dose: 60 mg Documented by: Metoprolol Succinate (Metoprolol Succ 25mg Ext Rel Tab) [facility] [place] Stop: 12/28/21 08:59 Last Admin: 11/30/21 08:31 Dose: 25 mg Documented by: Miscellaneous (Carbohydrates For Hypoglycemia ) 15 - 30 gm PO UD PRN PRN Reason: Hypoglycemia Protocol Stop: 12/25/21 16:06 Nifedipine (Nifedipine Extended Rel 30 Mg Tabcr) 60 mg PO [facility] Stop: 12/26/21 08:59 Last Admin: 11/30/21 08:33 Dose: 60 mg Documented by: Ondansetron HCl (Ondansetron Inj 2 Mg/Ml 2 Ml Vial) 4 mg IV Q4H PRN PRN Reason: Nausea Stop: 12/27/21 09:54 Last Admin: 11/27/21 10:26 Dose: 4 mg Documented by: Pantoprazole Sodium (Pantoprazole 40 Mg Tab) 40 mg PO BID [facility] Stop: 12/29/21 20:59 Last Admin: 11/30/21 08:30 Dose: 40 mg Documented by: PG Care Time/CCT Total # of Minutes Spent Total Time Spent with Patient: Total time spent is greater than 50% in coordination of care (as documented) at patient's floor/unit and/or counseling patient:35 Coding Level of Care Code 28776 Subseq Hosp Care Lvl 3 Diagnoses ESRD needing dialysis N18.6; Z99.2 Hypertensive urgency I16.0 Anemia due to chronic kidney disease N18.9; D63.1 Elevated troponin R77.8 Type 2 diabetes mellitus E11.9 Paroxysmal atrial fibrillation I48.0 Acute on chronic heart failure with preserved ejection fraction I50.33 Time Spent (min) 65
[2021-11-30] MEDS: ALUMINUM/MAGNESIUM SUSP 30 ML UDC PO PRN ×2 (12:55→22:23)
--- NOTE | 2021-11-30 15:13 | Consultation ---
Date of Consultation November 30, 2021 Assessment & Plan (1) ESRD needing dialysis: Recommended placing a PermCath for dialysis access. This was discussed with the patient. I have discussed the risks options and benefits of the procedure with the patient. The patient understands the risks options and benefits and agrees to the procedure. This will be done in the a.m. tomorrow. Thank you very much for letting us participate in the care of this patient. History of Present Illness Reason for Consultation: Acute renal failure Attending Physician: Jesus Manuel Flores DO History of Present Illness This is a 71-year-old female who has a history of renal insufficiency. She is now an end-stage renal disease in need of dialysis. She has no access for dialysis. PermCath was recommended for dialysis access. Allergies Allergy/AdvReac Type Severity Reaction Status Date / Time heparin Allergy Intermediate Hives Verified 11/25/21 13:50 insulin aspart Allergy Intermediate Hives Verified 11/25/21 13:50 [From Novolog U-100 Insulin aspart] meperidine AdvReac Intermediate hallucinate Verified 11/25/21 11:55 s lisinopril AdvReac Mild COUGHING Verified 11/25/21 11:55 Home Medications Medication Instructions Recorded Confirmed Type insulin lispro 100 unit/mL 0 unit SUBCUT TIDM MDD 75 units 05/26/21 11/25/21 History subcutaneous pen (Humalog KwikPen (U-100) Insulin) [id number] oil-vit D3 300 1 cap PO QAM 05/26/21 11/25/21 History mg-1,000 mg-1,000 unit capsule (Fish Oil-Vit D3) insulin glargine 100 unit/mL (3 20 unit SUBCUT QAM #30 ml 06/05/21 11/25/21 Rx mL) subcutaneous pen (Lantus Solostar U-100 Insulin) apixaban 5 mg tablet (Eliquis) 5 mg PO BID #180 tab 07/21/21 11/25/21 Rx hydralazine 50 mg tablet 50 mg PO TID #270 tab 08/10/21 11/25/21 Rx clopidogrel 75 mg tablet (Plavix) 75 mg PO QAM #90 tab 09/15/21 11/25/21 Rx isosorbide mononitrate 60 mg 60 mg PO QAM #90 tab 10/24/21 11/25/21 Rx tablet,extended release 24 hr dicyclomine 10 mg capsule 10 mg PO TID PRN #90 cap 10/31/21 11/25/21 Rx allopurinol 100 mg tablet 100 mg PO QAM 11/25/21 11/25/21 History calcitriol 0.25 mcg capsule 0.25 mcg PO QAM 11/25/21 11/25/21 History furosemide 40 mg tablet 40 mg PO QAM 11/25/21 11/25/21 History metoprolol succinate 25 mg 25 mg PO QAM 11/25/21 11/25/21 History tablet,extended release 24 hr nifedipine 60 mg tablet,extended 60 mg PO QAM 11/25/21 11/25/21 History release 24 hr (Procardia XL) spironolactone 25 mg tablet 25 mg PO DAILY PRN 11/25/21 11/25/21 History Patient History Medical History Acute pain of left foot Anemia due to chronic kidney disease CAD (coronary artery disease) Chronic heart failure with preserved ejection fraction (HFpEF) CKD (chronic kidney disease) Diverticulosis Elevated troponin ESRD needing dialysis Failure of outpatient treatment History of stent insertion of renal artery 2013 Hyperlipidemia Hyperphosphatemia Hypertension Hypertensive emergency Hypertensive urgency Leukocytosis LVH (left ventricular hypertrophy) Lymphedema Metabolic acidosis Pedal edema Renal artery stenosis Stage 5 chronic kidney disease not on chronic dialysis Status post myocardial infarction Vulvovaginal candidiasis Surgical History H/O heart artery stent Family History Other Hypertension Social History Smoking Status: Former smoker Second Hand Exposure: No; Do You Dip or Chew Tobacco: No; Hx Alcohol Use: No Hx Substance Use: No Preferred Language: Ethiopian Communication Ability: Effective Operations Associate Required: No Beliefs That Will Affect Care: Mandaen Mandaen Beliefs: Eastern Restorationism marital status: Single Current Living Situation: Family Current Living Situation Comment: Lives with grandson How many Children do You have: 2 Other Information That Helps Us Care for You: No Feels Safe at Home: Yes Safety Concerns: Feels Safe At This Time Assistive Devices: None Review of Systems Review of Systems: All systems reviewed & are unremarkable except as noted in HPI & below Physical Exam Constitutional: WD/WN, vitals as above Respiratory: normal respiratory effort, lungs clear to auscultation Cardiovascular: RRR, no murmur, no edema Gastrointestinal (Abdomen): Inspection/Auscultation: abdomen normal to inspection; abdomen not distended and no abdominal edema Percussion/Palpation: abdomen soft; abdomen nontender Musculoskeletal: no cyanosis or clubbing, extremities motor strength 5/5 Neurologic: CN's II-XI intact bilaterally and moves all extremities Psychiatric: Orientation: alert and oriented x 3 Results & Data ([facility]) Vital Signs (Past 12 Hours) Vital Signs Temp Pulse Resp BP Pulse Ox 11/30/21 14:54 37.2 C 78 20 189/83 H 94 11/30/21 07:35 37 C 75 20 161/79 H 95
[2021-12-01] MEDS ORDERED: Nursing to Pharmacy Communication SCH (03:30)
[2021-12-01] MEDS: INSULIN LISPRO 100 UNIT/ML SC SCH ×6 (06:08→21:11)
[2021-12-01 07:37] LABS: Basophils # (auto) 0.04 K/uL (0-0.2); Basophils % (auto) 0.3 %; Eosinophils % (auto) 2.2 %; Hematocrit (blood only) 30.1 % (37-47); Hemoglobin 9.8 g/dL (12.0-16.0); Immature Granulocytes # (auto) 0.09 K/uL (0.00-0.02); Immature Granulocytes % (auto) 0.7 %; Lymphocytes # (auto) 1.37 K/uL (1.2-3.4); Lymphocytes % (auto) 10.1 %; Mean Corpuscular Hemoglobin 28.8 pg (25-34); Mean Corpuscular Hgb Conc 32.6 g/dL (32-36); Mean Corpuscular Volume 88.5 fL (80-100); Mean Platelet Volume 11.3 fL (7.4-10.4); Monocytes # (auto) 1.24 K/uL (0.11-0.59); Monocytes % (auto) 9.1 %; Neutrophils # (auto) 10.55 K/uL (1.4-6.5); Neutrophils % (auto) 77.6 %; Platelet Count 334 K/uL (130-400); RDW Coefficient of Variation 16.6 % (11.5-14.5); RDW Standard Deviation 53.4 fL (36.4-46.3); White Blood Count 13.59 K/uL (4.8-10.8)
[2021-12-01 07:43] LABS: Partial Thromboplastin Ratio 1.3; Partial Thromboplastin Time 34.1 Seconds (21.0-31.0)
[2021-12-01 08:03] LABS: Albumin Level 3.3 gm/dl (3.4-5.0); BUN Creatinine Ratio 14.4 (10-20); Calcium 8.7 mg/dl (8.5-10.1); Creatinine Clr Calc Pharmacy 8.4 ml/min; Est GFR (African American) 6.8 ml/min; Est GFR (Non-African American) 5.9 ml/min; Phosphorus 6.9 mg/dl (2.5-4.9); Potassium 3.3 mmol/L (3.5-5.1)
[2021-12-01] MEDS ORDERED: ceFAZolin 2000MG 2,000 MG/15 ML SYR IV ONE (08:07)
--- NOTE | 2021-12-01 08:07 | History & Physical Bridge Note ---
Date of Service December 01, 2021 History & Physical Bridge Note Patient for permcath insertion today. I have discussed the risks options and benefits of the procedure with the patient. The patient understands the risks options and benefits and agrees to the procedure. I have examined the patient, reviewed the History & Physical and in the interval since the performance of the History & Physical I have noted the following changes of clinical significance: no changes noted
[2021-12-01 08:15] LABS: Hepatitis B Surface Antibody Non-Immune
[2021-12-01 08:23] LABS: Hepatitis B Surf Ag Rflx Conf Neg (Neg)
[2021-12-01] MEDS ORDERED: fentaNYL citrate 100 MCG/2 ML VIAL ONE (09:06)
[2021-12-01] MEDS ORDERED: MIDAZOLAM HCL 1 MG/ML 2ML VIAL ONE (09:07)
[2021-12-01] MEDS ORDERED: LIDOCAINE 1% LOCAL 20 ML VIAL ONE (09:07)
--- NOTE | 2021-12-01 09:36 | Pre Anesthesia Assessment ---
Date of Service December 01, 2021 Pre Sedation Assessment Vital Signs Temp Pulse Resp BP Pulse Ox 12/01/21 08:07 37 C 78 20 152/89 H 97 11/30/21 20:53 37 C 71 18 134/77 90 11/30/21 14:54 37.2 C 78 20 189/83 H 94 Cardiovascular RRR, no murmur, no edema Respiratory normal respiratory effort, lungs clear to auscultation Pre-Sedation Airway Assessment Smoking Status: Former smoker Hx Sleep Apnea: No Short, Thick Neck: No Thyromental Distance: > or= 3.5 Finger Breadths Oral Cavity: + WNL Mallampati Class: II ASA: ASA4 NPO Status Date of Last Intake of Fluids: 11/30/21 Time of Last Intake of Fluids: 21:00 Date of Last Intake of Solid Food: 11/30/21 Time of Last Intake of Solid Foods: 17:00 Procedure Planning Contraindications for Sedation: none Current Medications Reviewed: Yes Notes The planned sedation has been discussed with the patient. Informed Consent was obtained. I have identified the patient, determined the appropriateness of sedation and have assessed the patient immediately prior to the procedure. All medicine(s) and interventions are by my order.
--- NOTE | 2021-12-01 10:13 | Operative Report ---
Post Operative Report Pre & Post Diagnosis Operation Date: 12/01/21 08:50 Pre-Op Diagnosis: acute renal failure Post-Op Diagnosis: acute renal failure I identified the patient and participated in the time-out.: Yes Procedure Operation Date: 12/01/21 08:50 Actual Procedures p Insertion of Perm cath, right internal jugular approach, ultrasound localiztion of right internal jugular veing, fluorscopy for positioning, moderate sedation [id number](Right) - Fredy Hayes MD Surgeon Fredy Hayes MD Psychologist [employer] none Estimated Blood Loss 5 Findings Consistent with Post-Op Diagnosis Specimens none Anesthesia Type RN Sedation Complications none Disposition Accompanied Patient To Recovery: No Disposition: Recovery Room Indications This is a 71-year-old female who has had chronic renal insufficiency and is now progressed to end-stage renal disease in need of dialysis. This is of an acute nature. PermCath was recommended for access. I have discussed the risks options and benefits of the procedure with the patient. The patient understands the risks options and benefits and agrees to the procedure. Description of Procedure Patient was taken to the angio suite and placed in the supine position. The right side of the neck and chest wall were prepped and draped in a sterile manner. The patient was identified and a timeout performed. Local anesthesia was then administered to the appropriate areas of the neck and chest wall. Ultrasound was then used to locate the right internal jugular vein. The vein compressed easily, had no filing defects, and was patent. The vein was then punctured under direct ultrasound imaging. A guidewire was then passed centrally under fluoroscopic imaging. A stab wound was then made in the anterior chest wall and a 19 cm permcath was passed from the stab wound on the chest wall to the puncture site on the neck. The puncture site was then dilated till the 14Fr peel away sheath was inserted. The permcath was then inserted through the sheath to a central position in the distal superior vena cava. The peel away sheath was then removed. The catheter was then sutured in place using nylon sutures. The puncture was then closed using a 4-0 Vicryl subcuticular suture. Dermabond was used for a dressing on the puncture site. Both ports aspirated and flushed easily and were then packed with heparin. A sterile dressing was applied to the catheter. The patient left the operation room in satisfactory condition and tolerated the procedure well. All needle and sponge counts were correct at the end of the procedure. I attest to the content of the Intraoperative Record and any orders documented therein. Any exceptions are noted below.
--- NOTE | 2021-12-01 10:16 | Post Anesthesia Assessment ---
Date of Service December 01, 2021 Post Sedation Assessment Vital Signs Temp Pulse Pulse Resp BP Pulse Ox 12/01/21 10:11 77 16 184/86 H 96 12/01/21 10:07 78 16 173/90 H 97 12/01/21 10:02 77 16 180/92 H 96 12/01/21 09:57 77 16 182/99 H 96 12/01/21 09:52 78 16 178/79 H 96 12/01/21 09:49 79 16 181/81 H 96 12/01/21 08:07 37 C 78 20 152/89 H 97 11/30/21 20:53 37 C 71 18 134/77 90 11/30/21 14:54 37.2 C 78 20 189/83 H 94 Recovery Score Activity: Moves 4 extremities Respiration: Deep Breath/Cough Circulation: +/-20% PreAnes Value Consciousness: Fully Awake Oxygen Saturation: <90% w/ supp O2 Post Anesthesia Score: 8 Discharge Sedation Level of Care: Fast Track Phase II Post Sedation Plan On clinical assessment, the patient appears to have tolerated the sedation without complications. Patient is recovering as anticipated. Patient will continue to be monitored by nursing and may be discharged when sedation discharge criteria are met per below protocol. Upon Completions of procedure up to 15 minutes continue every 5 minute vital signs and the P.A.R. score; then discharge to a Phase I or Fast Track to Phase II per the following guidelines: * Discharge Patient to appropriate Phase II area if PAR is 8 or greater or return to pre- procedure baseline. The post - procedure orders will be as directed. * If PAR score is less than 8 or not return to pre-procedure baseline then patient will follow Phase I monitoring till PAR is reached for Phase II. The Phase I may be done in procedure room or may call to secure a Phase I area. * If naloxone or flumazenil are used for reversal, hold in Phase I for continued monitoring from when last reversal dose was given for a minimum of 60 minutes or longer pending the nurse and/or physician discretion of patient condition before discharge to Phase II. Please call the Sedation Physician to re-evaluate and complete post-note for discharge to Phase II area. Do NOT discharge from procedure sedation or Phase 1 until post- sedation evaluation note is complete by procedure /sedation MD Sedation Discharge Instructions to be given to the patient at discharge to home.
[2021-12-01] MEDS: ATORVASTATIN 40 MG TAB PO SCH (10:35)
[2021-12-01] MEDS: ISOSORBIDE MONO EXTENDED REL 60 MG TABCR PO SCH (10:35)
[2021-12-01] MEDS: FUROSEMIDE 80 MG TAB PO SCH (10:36)
[2021-12-01] MEDS: METOPROLOL SUCC 25MG EXT REL TAB PO SCH (10:37)
[2021-12-01] MEDS: CALCITRIOL 0.25 MCG CAPSULE PO SCH (10:37)
[2021-12-01] MEDS: hydrALAZINE TAB 50 MG TAB PO SCH ×3 (10:37→21:10)
[2021-12-01] MEDS: PANTOprazole 40 MG TAB PO SCH ×2 (10:38→21:11)
[2021-12-01] MEDS: allopurinoL 100 MG TAB PO SCH (10:38)
[2021-12-01] MEDS: NIFEdipine EXTENDED REL 30 MG TABCR PO SCH (10:38)
[2021-12-01] MEDS: [UNRECOGNIZED DRUG - OTHER] PO SCH (10:41)
[2021-12-01] MEDS: INSULIN GLARGINE SOLOSTAR 100 UNITS/ML 3 ML PEN SQ SCH (10:42)
--- NOTE | 2021-12-01 11:17 | Nephrology Progress Note ---
Date of Service December 01, 2021 Assessment & Plan (1) ESRD needing dialysis: (2) Hypertensive urgency: (3) Proteinuria: (4) Anemia due to chronic kidney disease: (5) Metabolic acidosis: (6) Hyperphosphatemia: Plan: 71 y o F with ESRD with history of renovascular disease, hypertension and diabetes, baseline creatinine lately staying around 5.7-6. Admitted to the hospitalwith chest pain, progressive respiratory distress with volume overload. Started on IV diuretics with slight improvement in volume status however still volume overloaded. Has multiple stigmata of advanced CKD/ end-stage renal disease including anemia, metabolic acidosis. she had dialysis education and decided to do in center hemodialysis and currently waiting for vascular surgery appointment for AV fistula placement. Renal function progressively worsened with multiple electrolyte abnormality, volume overload elevated blood pressure. Had TDC this morning. -- the plan for 1st dialysis treatment today for 2 hours with low blood flow. If tolerated, will schedule for 3 hours dialysis tomorrow. --Continue Lasix 80 mg once a day. -- outpatient dialysis being set up at [facility]. --recommend starting on Renvela 1 tab TIDM --continue Calcitriol Will follow Admission and Anticipated Discharge Date Admission Date: November 25, 2021 Subjective Ayana was seen this morning, she just had tunneled dialysis catheter placed and back from OR. Having some bleeding at the tunnel catheter site, dressing soaked but denied any pain. No shortness of breath. Blood pressure remained elevated. Review of Systems Review of Systems: detailed review of system was negative except mentioned above. Physical Exam Constitutional: WD/WN, vitals as above no acute distress Eyes: + anicteric sclerae ENMT: Ears: no hearing impairment Neck: normal visual inspection Respiratory: no respiratory distress and no cough Auscultation: lungs clear to auscultation bilaterally Cardiovascular: Rate/Rhythm: regular rate and regular rhythm Heart Sounds: normal S1 and normal S2 Extremities: + edema and + vascular access device (rt IJ TDC) Skin: no rashes Neurologic: no focal motor deficits and not confused Psychiatric: Orientation: alert and oriented x 3 Affect: euthymic affect Results & Data ([facility]) Vital Signs (Past 12 Hours) Vital Signs Temp Pulse Pulse Resp BP Pulse Ox 12/01/21 10:58 36.9 C 73 18 178/104 H 90 12/01/21 10:28 36.8 C 75 16 163/86 H 91 12/01/21 10:16 79 16 159/112 H 95 12/01/21 10:11 77 16 184/86 H 96 12/01/21 10:07 78 16 173/90 H 97 12/01/21 10:02 77 16 180/92 H 96 12/01/21 09:57 77 16 182/99 H 96 12/01/21 09:52 78 16 178/79 H 96 12/01/21 09:49 79 16 181/81 H 96 12/01/21 08:07 37 C 78 20 152/89 H 97 PG Care Time/CCT Total # of Minutes Spent Total Time Spent with Patient: Total time spent is greater than 50% in coordination of care (as documented) at patient's floor/unit and/or counseling patient: Coding Level of Care Code 08315 Subseq Hosp Care Lvl 3 Diagnoses ESRD needing dialysis N18.6; Z99.2 Hypertensive urgency I16.0 Proteinuria R80.9 Anemia due to chronic kidney disease N18.9; D63.1 Metabolic acidosis E87.2 Hyperphosphatemia E83.39
--- NOTE | 2021-12-01 14:36 | Hospitalist Progress Note ---
Date of Service December 01, 2021 Assessment & Plan (1) ESRD needing dialysis: Plan: Mrs. Mcnulty is a 71 year old female with a history of Type 2 DM, HFpEF, Hypertension, Hyperlipidemia, CAD s/p Coronary Stent, PUD, Paroxysmal Atrial Fibrillation, and Stage 5 CKD with a need to start dialysis who presented on 11/25/21 with SOB, decreased urinary output despite use of oral Lasix, worsening renal failure with multiple electrolyte abnormalities, and metabolic acidosis. She underwent placement of a perm cath this morning, complicated by post- procedural bleeding (now resolved). She is currently undergoing her initial hemodialysis treatment -- and so far is tolerating it well, BP stable. Another hemodialysis treatment is planned for tomorrow as well. As per nephrology: Renal function progressively worsened with multiple electrolyte abnormality, volume overload elevated blood pressure. -- 1st dialysis treatment today for 2 hours with low blood flow. If tolerated, will schedule for 3 hours dialysis tomorrow. -- Continue Lasix 80 mg once a day. -- Outpatient dialysis being set up at [facility]. -- Continue Renvela 1 tab TID. -- Continue Calcitriol. (2) Hypertensive urgency: Plan: BP is elevated throughout the day today. Should come down with dialysis treatment. -- Continue Toprol XL 25 mg daily. -- Continue Hydralazine 50 mg t.i.d.. -- IV Hydralazine as needed. -- Continue Nifedipine XL 60 mg daily. -- Continue Imdur ER 60 mg daily. -- Continue Lasix 80 mg daily. -- 2 gram low sodium diet. (3) Anemia due to chronic kidney disease: Plan: Initial Dialysis Treatment is happening now and another is planned for tomorrow. -- Hgb 12/01/21 is 9.9 g/dL. -- Management as per nephrology. (4) Elevated troponin: Plan: History of CAD s/p LCx stent. No angina pectoris, elevated Troponin I 0.07 x 3 likely secondary to advanced renal disease. -- This is not an acute coronary syndrome. -- Continue Toprol XL 25 mg daily. -- Continue Hydralazine 50 mg t.i.d.. -- IV Hydralazine as needed. -- Continue Nifedipine XL 60 mg daily. -- Continue Imdur ER 60 mg daily. -- Continue Lasix 80 mg daily. -- 2 gram low sodium diet. -- Continue Plavix 75 mg daily. -- Continue Atorvastatin 80 mg daily. (5) Type 2 diabetes mellitus: Plan: -- Insulin requiring type 2 DM. -- BSG checks, insulin. (6) Paroxysmal atrial fibrillation: Plan: Currently in NSR. -- Continue Toprol XL 25 mg daily. -- Continue Eliquis 2.5 mg b.i.d.. (7) Acute on chronic heart failure with preserved ejection fraction: Plan: -- Volume status improved, approaching euvolemic state. -- Dialysis will make managing her volume status easier. Admission and Anticipated Discharge Date Admission Date: November 25, 2021 Supervising Physician Co-Signing Physician Notes chart reviewed agree stacey mason pa-c Subjective Mrs. Mcnulty is a 71 year old female with a history of Type 2 DM, HFpEF, Hypertension, Hyperlipidemia, CAD s/p Coronary Stent, PUD, Paroxysmal Atrial Fibrillation, and Stage 5 CKD with a need to start dialysis who presented on 11/25/21 with SOB, decreased urinary output despite use of oral Lasix, worsening renal failure with multiple electrolyte abnormalities, and metabolic acidosis. The patient offers no complaints today. She underwent placement of a perm cath this morning, complicated by post-procedural bleeding (now resolved). She is currently undergoing her initial hemodialysis treatment -- and so far is tolerating it well, BP stable. Another hemodialysis treatment is planned for tomorrow as well. Patient denies any nausea, vomiting, abdominal pain, chest pain, or SOB. She denies any orthopnea or PND. As per Nephrology: -- 1st dialysis treatment today for 2 hours with low blood flow. If tolerated, will schedule for 3 hours dialysis tomorrow. -- Continue Lasix 80 mg once a day. -- Outpatient dialysis being set up at [facility]. -- Start Renvela 1 tab TID. -- Continue Calcitriol. Review of Systems Review of Systems: 10 point ROS completed and is negative with the exception of what is mentioned in the HPI. Physical Exam Physical Exam: GENERAL: Patient in no acute distress. HEENT: Head is atraumatic, normocephalic. EOM's intact. Facies symmetric. No perioral cyanosis. NECK: No JVD. JVP is not elevated. Carotid upstrokes are + 2 bilaterally.Perm cath is present in the right supraclavicular fossa, dressing intact, no active bleeding. CHEST/LUNGS: Clear to auscultation throughout all lung chaudhry. No wheezes, rales, or crackles. CVS: S1 and S2 are regular at 78 bpm with a grade 2/6 basal systolic ejection murmur. No diastolic murmurs appreciated. PMI is nondisplaced. No lifts, heaves, or thrills. No abdominal aortic or renal bruits. ABDOMINAL EXAM: Bowel sounds are present. No masses, organomegaly, or tenderness. EXTREMITIES: No clubbing or cyanosis. Trace pretibial edema bilaterally. Intact radial pulses bilaterally. NEUROLOGIC EXAM: Patient is awake, alert, and oriented. Pleasant and cooperative. Answers questions appropriately. Speech is clear. Normal movement in all 4 extremities. Gait pattern was not assessed. Results & Data Results & Data ([facility]) Vital Signs (Past 12 Hours) Vital Signs Temp Pulse Pulse Resp BP Pulse Ox 12/01/21 13:30 36.4 C L 85 17 152/77 H 93 12/01/21 12:05 36.7 C 73 16 165/96 H 90 12/01/21 11:35 36.6 C 73 20 179/94 H 99 12/01/21 10:58 36.9 C 73 18 178/104 H 90 12/01/21 10:28 36.8 C 75 16 163/86 H 91 12/01/21 10:16 79 16 159/112 H 95 12/01/21 10:11 77 16 184/86 H 96 12/01/21 10:07 78 16 173/90 H 97 12/01/21 10:02 77 16 180/92 H 96 12/01/21 09:57 77 16 182/99 H 96 12/01/21 09:52 78 16 178/79 H 96 12/01/21 09:49 79 16 181/81 H 96 12/01/21 08:07 37 C 78 20 152/89 H 97 Laboratory Results Laboratory Results - last 24 hr 11/30/21 11/30/21 11/30/21 11:09 11:09 16:53 WBC RBC Hgb Hct MCV MCH MCHC RDW Std Deviation RDW Coeff of Ekaterina Plt Count MPV Immature Gran % (Auto) Neut % (Auto) Lymph % (Auto) Ware % (Auto) Eos % (Auto) Baso % (Auto) Neut # (Auto) Lymph # (Auto) Ware # (Auto) Eos # (Auto) Baso # (Auto) Immature Gran # (Auto) APTT PTT Ratio Sodium Potassium Chloride Carbon Dioxide Anion Gap BUN Creatinine Est Cr Clr Drug Dosing Est GFR ( Amer) Est GFR (Non-Af Amer) BUN/Creatinine Ratio Glucose POC Glucose 99 Calcium Phosphorus Albumin Hep Bs Antigen Neg Hep Bs Antibody Non-Immune Hep Bs Antibody, Quant 3.90 L Hep B Core IgM Ab NON-REACTIVE 11/30/21 11/30/21 12/01/21 20:49 23:43 05:57 WBC RBC Hgb Hct MCV MCH MCHC RDW Std Deviation RDW Coeff of Ekaterina Plt Count MPV Immature Gran % (Auto) Neut % (Auto) Lymph % (Auto) Ware % (Auto) Eos % (Auto) Baso % (Auto) Neut # (Auto) Lymph # (Auto) Ware # (Auto) Eos # (Auto) Baso # (Auto) Immature Gran # (Auto) APTT PTT Ratio Sodium Potassium Chloride Carbon Dioxide Anion Gap BUN Creatinine Est Cr Clr Drug Dosing Est GFR ( Amer) Est GFR (Non-Af Amer) BUN/Creatinine Ratio Glucose POC Glucose 123 H 114 H 108 H Calcium Phosphorus Albumin Hep Bs Antigen Hep Bs Antibody Hep Bs Antibody, Quant Hep B Core IgM Ab 12/01/21 12/01/21 12/01/21 07:07 07:07 07:07 WBC 13.59 H RBC 3.40 L Hgb 9.8 L Hct 30.1 L MCV 88.5 MCH 28.8 MCHC 32.6 RDW Std Deviation 53.4 H RDW Coeff of Ekaterina 16.6 H Plt Count 334 MPV 11.3 H Immature Gran % (Auto) 0.7 Neut % (Auto) 77.6 Lymph % (Auto) 10.1 Ware % (Auto) 9.1 Eos % (Auto) 2.2 Baso % (Auto) 0.3 Neut # (Auto) 10.55 H Lymph # (Auto) 1.37 Ware # (Auto) 1.24 H Eos # (Auto) 0.30 Baso # (Auto) 0.04 Immature Gran # (Auto) 0.09 H APTT 34.1 H PTT Ratio 1.3 Sodium 138 Potassium 3.3 L Chloride 103 Carbon Dioxide 20 L Anion Gap 15 H BUN 94 H Creatinine 6.53 H* Est Cr Clr Drug Dosing 8.4 Est GFR ( Amer) 6.8 Est GFR (Non-Af Amer) 5.9 BUN/Creatinine Ratio 14.4 Glucose 112 H POC Glucose Calcium 8.7 Phosphorus 6.9 H Albumin 3.3 L Hep Bs Antigen Hep Bs Antibody Hep Bs Antibody, Quant Hep B Core IgM Ab 12/01/21 12/01/21 12:03 12:35 WBC RBC Hgb Hct MCV MCH MCHC RDW Std Deviation RDW Coeff of Ekaterina Plt Count MPV Immature Gran % (Auto) Neut % (Auto) Lymph % (Auto) Ware % (Auto) Eos % (Auto) Baso % (Auto) Neut # (Auto) Lymph # (Auto) Ware # (Auto) Eos # (Auto) Baso # (Auto) Immature Gran # (Auto) APTT PTT Ratio Sodium Potassium Chloride Carbon Dioxide Anion Gap BUN Creatinine Est Cr Clr Drug Dosing Est GFR ( Amer) Est GFR (Non-Af Amer) BUN/Creatinine Ratio Glucose POC Glucose 130 H 118 H Calcium Phosphorus Albumin Hep Bs Antigen Hep Bs Antibody Hep Bs Antibody, Quant Hep B Core IgM Ab PG Care Time/CCT Total # of Minutes Spent Total Time Spent with Patient: Total time spent is greater than 50% in coordination of care (as documented) at patient's floor/unit and/or counseling patient:25 Coding Level of Care Code 39816 Subseq Hosp Care Lvl 3 Diagnoses ESRD needing dialysis N18.6; Z99.2 Hypertensive urgency I16.0 Anemia due to chronic kidney disease N18.9; D63.1 Elevated troponin R77.8 Type 2 diabetes mellitus E11.9 Paroxysmal atrial fibrillation I48.0 Acute on chronic heart failure with preserved ejection fraction I50.33 Time Spent (min) 43
[2021-12-01] MEDS ORDERED: POLYETHYLENE (MIRALAX) 17 GM PACK PO PRN (14:39)
[2021-12-01] MEDS: ALUMINUM/MAGNESIUM SUSP 30 ML UDC PO PRN (20:47)
[2021-12-01] MEDS: APIXABAN 2.5 MG TAB PO SCH (21:11)
[2021-12-02 07:48] LABS: Basophils # (auto) 0.04 K/uL (0-0.2); Basophils % (auto) 0.3 %; Eosinophils # (auto) 0.25 K/uL (0-0.5); Eosinophils % (auto) 1.8 %; Hematocrit (blood only) 29.7 % (37-47); Hemoglobin 9.6 g/dL (12.0-16.0); Immature Granulocytes # (auto) 0.04 K/uL (0.00-0.02); Immature Granulocytes % (auto) 0.3 %; Lymphocytes # (auto) 1.96 K/uL (1.2-3.4); Lymphocytes % (auto) 13.9 %; Mean Corpuscular Hemoglobin 28.8 pg (25-34); Mean Corpuscular Hgb Conc 32.3 g/dL (32-36); Mean Corpuscular Volume 89.2 fL (80-100); Mean Platelet Volume 11.4 fL (7.4-10.4); Monocytes # (auto) 1.08 K/uL (0.11-0.59); Monocytes % (auto) 7.7 %; Neutrophils # (auto) 10.72 K/uL (1.4-6.5); Platelet Count 342 K/uL (130-400); RDW Coefficient of Variation 16.5 % (11.5-14.5); RDW Standard Deviation 53.3 fL (36.4-46.3); Red Blood Count 3.33 M/uL (4.2-5.4); White Blood Count 14.09 K/uL (4.8-10.8)
[2021-12-02 08:00] LABS: Partial Thromboplastin Ratio 1.2; Partial Thromboplastin Time 32.8 Seconds (21.0-31.0)
[2021-12-02] MEDS: NIFEdipine EXTENDED REL 30 MG TABCR PO SCH (08:02)
[2021-12-02] MEDS: FUROSEMIDE 80 MG TAB PO SCH (08:02)
[2021-12-02] MEDS: METOPROLOL SUCC 25MG EXT REL TAB PO SCH (08:03)
[2021-12-02] MEDS: ISOSORBIDE MONO EXTENDED REL 60 MG TABCR PO SCH (08:03)
[2021-12-02] MEDS: CALCITRIOL 0.25 MCG CAPSULE PO SCH (08:03)
[2021-12-02] MEDS: PANTOprazole 40 MG TAB PO SCH ×2 (08:03→20:55)
[2021-12-02] MEDS: allopurinoL 100 MG TAB PO SCH (08:03)
[2021-12-02] MEDS: hydrALAZINE TAB 50 MG TAB PO SCH ×3 (08:04→20:56)
[2021-12-02] MEDS: ATORVASTATIN 40 MG TAB PO SCH (08:04)
[2021-12-02] MEDS: [UNRECOGNIZED DRUG - OTHER] PO SCH (08:05)
[2021-12-02] MEDS: APIXABAN 2.5 MG TAB PO SCH ×2 (08:05→20:55)
[2021-12-02 08:17] LABS: Albumin Level 3.2 gm/dl (3.4-5.0); BUN Creatinine Ratio 12.4 (10-20); Calcium 8.4 mg/dl (8.5-10.1); Est GFR (African American) 9.4 ml/min; Est GFR (Non-African American) 8.1 ml/min; Phosphorus 4.4 mg/dl (2.5-4.9); Potassium 3.3 mmol/L (3.5-5.1)
[2021-12-02] MEDS: INSULIN LISPRO 100 UNIT/ML SC SCH ×4 (08:39→20:56)
[2021-12-02] MEDS: INSULIN GLARGINE SOLOSTAR 100 UNITS/ML 3 ML PEN SQ SCH (08:39)
--- NOTE | 2021-12-02 12:31 | Nephrology Progress Note ---
Date of Service December 02, 2021 Assessment & Plan (1) ESRD needing dialysis: (2) Acute on chronic heart failure with preserved ejection fraction: (3) Anemia due to chronic kidney disease: (4) Hypertensive urgency: (5) Hyperphosphatemia: Plan: Ayana has advanced CKD that has progressed to ESRD. TDC placed by Dr. Hayes on 12/01. First dialysis treatment completed 12/01. Ayana tolerated the treatment well. Orders for her second treatment today were entered into the EHR and reviewed with the dialysis nurse. Ayana was seen and evaluated during hemodialysis. TDC functioning well. Pressure dressing has been applied to exit site and remains dry. H/H stable. TRAE therapy deferred today. Volume status improving. Anticipate some continued improvement in BP with additional UF. Importance of dietary fluid and sodium restriction discussed with patient. She remains non-oliguric on furosemide 80 mg daily. Medications appropriately dosed for IHD. I discussed outpatient arrangements for HD post-discharge at [facility] with Staff at [facility] this AM. They are able to accommodate Ayana on December 05. If she is not able to make at 5:30 AM chair time, a time later in the day can be offered and the community nurse will be in contact with Sade petty on Saturday. Transportation for dialysis treatments needs to be understood. I told Ayana that she will need to relay and discuss her transportation concerns with her family and case management at the hospital prior to discharge. She expressed understanding. Once there is confirmation that she will have transportation on Saturday and pending there are no issues with the remaining hour of her dialysis treatment as well as no additional bleeding concerns from the catheter exit site, I suspect that she will be ready for discharge. Continue calcitriol 0.25 QAM. Admission and Anticipated Discharge Date Admission Date: November 25, 2021 Subjective Bleeding from TDC exit site noted overnight. Controlled with pressure dressing currently. Ayana was seen and evaluated during hemodialysis this AM. She is tolerating HD well. First treatment completed yesterday without complications. Overall, Ayana feels well. She hopes to be discharged home this weekend. Unfortunately, she is concerned about arrangements for transportation for dialysis. She told me that a 5:30 AM chair time will not work for her on Saturday. She has concerns about being able to drive herself for treatments and is not certain that her family will be able to drive her. I relayed these concerns to staff at [facility]. Review of Systems Constitutional: no weight loss, no weight gain and no problem reported Eyes: no problem reported Ear, Nose, Mouth, Throat: no problem reported Respiratory: no problem reported Cardiovascular: no problem reported Gastrointestinal: no problem reported Musculoskeletal: no problem reported Integumentary: no problem reported Neurologic: no problem reported Psychiatric: no problem reported Endocrine: no problem reported Hematologic / Lymphatic: no problem reported Physical Exam Constitutional: WD/WN, vitals as above no acute distress Eyes: + anicteric sclerae ENMT: Ears: no hearing impairment Neck: normal visual inspection Respiratory: no respiratory distress and no cough Auscultation: lungs clear to auscultation bilaterally Cardiovascular: Rate/Rhythm: regular rate and regular rhythm Heart Sounds: normal S1 and normal S2 Extremities: + edema and + vascular access device (rt IJ TDC) Skin: no rashes Neurologic: no focal motor deficits and not confused Psychiatric: Orientation: alert and oriented x 3 Affect: euthymic affect Results & Data ([facility]) Vital Signs (Past 12 Hours) Vital Signs Temp Pulse Pulse Pulse Resp BP BP 12/02/21 11:40 77 177/93 H 12/02/21 11:20 72 171/89 H 12/02/21 11:00 70 186/93 H 12/02/21 10:40 65 174/50 H 12/02/21 10:20 73 155/90 H 12/02/21 10:00 66 111/80 12/02/21 09:40 68 163/75 H 12/02/21 09:29 36.9 C 64 12/02/21 07:49 37.1 C 73 16 173/84 H 12/02/21 03:45 37.2 C 77 18 152/82 H 12/02/21 00:52 197/92 H Pulse Ox 12/02/21 11:40 12/02/21 11:20 12/02/21 11:00 12/02/21 10:40 12/02/21 10:20 12/02/21 10:00 12/02/21 09:40 12/02/21 09:29 12/02/21 07:49 92 12/02/21 03:45 90 12/02/21 00:52 Laboratory Results Laboratory Results - last 24 hr 02/02/1612/01/21 12/01/21 12:35 17:02 20:48 WBC RBC Hgb Hct MCV MCH MCHC RDW Std Deviation RDW Coeff of Ekaterina Plt Count MPV Immature Gran % (Auto) Neut % (Auto) Lymph % (Auto) [place] % (Auto) Eos % (Auto) Baso % (Auto) Neut # (Auto) Lymph # (Auto) [place] # (Auto) Eos # (Auto) Baso # (Auto) Immature Gran # (Auto) APTT PTT Ratio Sodium Potassium Chloride Carbon Dioxide Anion Gap BUN Creatinine Est Cr Clr Drug Dosing Est GFR ( Amer) Est GFR (Non-Af Amer) BUN/Creatinine Ratio Glucose POC Glucose 118 H 144 H 132 H Calcium Phosphorus Albumin 12/02/21 12/02/21 12/02/21 07:16 07:16 07:16 WBC 14.09 H RBC 3.33 L Hgb 9.6 L Hct 29.7 L MCV 89.2 MCH 28.8 MCHC 32.3 RDW Std Deviation 53.3 H RDW Coeff of Ekaterina 16.5 H Plt Count 342 MPV 11.4 H Immature Gran % (Auto) 0.3 Neut % (Auto) 76.0 Lymph % (Auto) 13.9 [place] % (Auto) 7.7 Eos % (Auto) 1.8 Baso % (Auto) 0.3 Neut # (Auto) 10.72 H Lymph # (Auto) 1.96 [place] # (Auto) 1.08 H Eos # (Auto) 0.25 Baso # (Auto) 0.04 Immature Gran # (Auto) 0.04 H APTT 32.8 H PTT Ratio 1.2 Sodium 139 Potassium 3.3 L Chloride 103 Carbon Dioxide 24 Anion Gap 12 H BUN 62 H D Creatinine 4.99 H* D Est Cr Clr Drug Dosing 11.0 Est GFR ( Amer) 9.4 Est GFR (Non-Af Amer) 8.1 BUN/Creatinine Ratio 12.4 Glucose 103 H POC Glucose Calcium 8.4 L Phosphorus 4.4 D Albumin 3.2 L 12/02/21 08:15 WBC RBC Hgb Hct MCV MCH MCHC RDW Std Deviation RDW Coeff of Ekaterina Plt Count MPV Immature Gran % (Auto) Neut % (Auto) Lymph % (Auto) [place] % (Auto) Eos % (Auto) Baso % (Auto) Neut # (Auto) Lymph # (Auto) [place] # (Auto) Eos # (Auto) Baso # (Auto) Immature Gran # (Auto) APTT PTT Ratio Sodium Potassium Chloride Carbon Dioxide Anion Gap BUN Creatinine Est Cr Clr Drug Dosing Est GFR ( Amer) Est GFR (Non-Af Amer) BUN/Creatinine Ratio Glucose POC Glucose 107 H Calcium Phosphorus Albumin PG Care Time/CCT Total # of Minutes Spent Total Time Spent with Patient: Total time spent is greater than 50% in coordination of care (as documented) at patient's floor/unit and/or counseling patient: Coding Level of Care Code 02315 Subseq Hosp Care Lvl 3 Diagnoses ESRD needing dialysis N18.6; Z99.2 Acute on chronic heart failure with preserved ejection fraction I50.33 Anemia due to chronic kidney disease N18.9; D63.1 Hypertensive urgency I16.0 Hyperphosphatemia E83.39
--- NOTE | 2021-12-02 13:53 | Hospitalist Progress Note ---
Date of Service December 02, 2021 Assessment & Plan (1) ESRD needing dialysis: Plan: Mrs. Mcnulty is a 71 year old female with a history of Type 2 DM, HFpEF, Hypertension, Hyperlipidemia, CAD s/p Coronary Stent, PUD, Paroxysmal Atrial Fibrillation, and Stage 5 CKD with a need to start dialysis who presented on 11/25/21 with SOB, decreased urinary output despite use of oral Lasix, worsening renal failure with multiple electrolyte abnormalities, and metabolic acidosis. She underwent placement of a perm cath this morning, complicated by post- procedural bleeding (now resolved). She is currently undergoing her initial hemodialysis treatment -- and so far is tolerating it well, BP stable. Another hemodialysis treatment is planned for tomorrow as well. As per nephrology: Renal function progressively worsened with multiple electrolyte abnormality, volume overload elevated blood pressure. - 1st dialysis treatment / for 2 hours with low blood flow. Tolerated well, underwent 3 hours dialysis today. - Continue Lasix 80 mg once a day. - Outpatient dialysis being set up at [facility]. - Continue Renvela 1 tab TID. - Continue Calcitriol. (2) Hypertensive urgency: Plan: BP is elevated throughout the day today. Should come down with dialysis treatment. - Continue Toprol XL 25 mg daily. - Continue Hydralazine 50 mg t.i.d.. - IV Hydralazine as needed. - Continue Nifedipine XL 60 mg daily. - Continue Imdur ER 60 mg daily. - Continue Lasix 80 mg daily. - 2 gram low sodium diet. (3) Anemia due to chronic kidney disease: Plan: - Hgb 12/01/21 is 9.9 g/dL. - Management as per nephrology. (4) Elevated troponin: Plan: History of CAD s/p LCx stent. No angina pectoris, elevated Troponin I 0.07 x 3 likely secondary to advanced renal disease. - This is not an acute coronary syndrome. - Continue Toprol XL 25 mg daily. - Continue Hydralazine 50 mg t.i.d.. - IV Hydralazine as needed. - Continue Nifedipine XL 60 mg daily. - Continue Imdur ER 60 mg daily. - Continue Lasix 80 mg daily. - 2 gram low sodium diet. - Continue Plavix 75 mg daily. - Continue Atorvastatin 80 mg daily. (5) Type 2 diabetes mellitus: Plan: - Insulin requiring type 2 DM. - BSG checks, insulin. (6) Paroxysmal atrial fibrillation: Plan: Currently examines in afib but w/ CVR - Continue Toprol XL 25 mg daily. - Continue Eliquis 2.5 mg b.i.d.. (7) Acute on chronic heart failure with preserved ejection fraction: Plan: - Volume status improved, approaching euvolemic state. - Dialysis will make managing her volume status easier. Plan: Continue HD as per nephrology D/c planning -- can d/c when suitable arrangements for her to continue outpatient dialysis can be made Admission and Anticipated Discharge Date Admission Date: November 25, 2021 Subjective Pt seen on rounds late this afternoon as she was at dialysis this morning. She states HD went well today. Only c/o of mild indigestion, requesting Maalox. Denies dyspnea, cough, chest pain, nausea, pruritis. Bleeding from TDC exit site noted overnight. Controlled with pressure dressing currently. Nephrology following, documented some concerns that she has re: dialysis, mainly transportation. She told software security consultant that a 5:30 AM chair time will not work for her on Saturday. She has concerns about being able to drive herself for treatments and is not certain that her family will be able to drive her. I relayed these concerns to staff at [facility]. Review of Systems Review of Systems: CONSTITUTIONAL: Denies weight loss/gain, fever and chills, fatigue, malaise, generalized weakness. HEENT: Denies changes in vision and hearing. RESPIRATORY: Denies SOB, cough, wheezing. CV: Denies palpitations, CP, lower extremity edema, orthopnea, PND. GI: Denies abdominal pain, nausea, vomiting and diarrhea. : Denies dysuria and urinary frequency, urgency, hesitancy. MUSCULOSKELETAL: Denies myalgia and joint pain. SKIN: Denies rash and pruritus. NEUROLOGICAL: Denies headache, syncope, focal weakness, numbness, tingling. PSYCHIATRIC: Denies recent changes in mood. Denies anxiety and depression. Physical Exam Physical Exam: GENERAL: 71 yo well-developed, well-nourished WF. NAD. LUNGS: Clear to auscultation bilaterally. No accessory muscle use. No W/R/R. CARDIOVASCULAR: Irrregularly irregular w/ 2/6 [place]. No JVD. ABDOMEN: Soft, non-tender and non-distended. No palpable masses. Bowel sounds normoactive x 4 quad. EXTREMITIES: trace LE edema. Non-tender. Peripheral pulses +2/4. NEUROLOGIC: A&O x3. PSYCHIATRIC: Cooperative. Appropriate mood and affect. SKIN: Warm, dry, intact. No rashes or lesions. perm cath site on right side of chest dressed. Results & Data Results & Data ([facility]) Vital Signs (Past 12 Hours) Vital Signs Temp Pulse Pulse Pulse Resp BP BP 12/02/21 13:18 73 181/87 H 12/02/21 12:55 36.9 C 78 215/103 H 12/02/21 12:20 78 189/90 H 12/02/21 12:00 78 184/93 H 12/02/21 11:40 77 177/93 H 12/02/21 11:20 72 171/89 H 12/02/21 11:00 70 186/93 H 12/02/21 10:40 65 174/50 H 12/02/21 10:20 73 155/90 H 12/02/21 10:00 66 111/80 12/02/21 09:40 68 163/75 H 12/02/21 09:29 36.9 C 64 12/02/21 07:49 37.1 C 73 16 173/84 H 12/02/21 03:45 37.2 C 77 18 152/82 H Pulse Ox 12/02/21 13:18 12/02/21 12:55 12/02/21 12:20 12/02/21 12:00 12/02/21 11:40 12/02/21 11:20 12/02/21 11:00 12/02/21 10:40 12/02/21 10:20 12/02/21 10:00 12/02/21 09:40 12/02/21 09:29 12/02/21 07:49 92 12/02/21 03:45 90 Laboratory Results 12/02/21 07:16 12/02/21 07:16 PG Care Time/CCT Total # of Minutes Spent Total Time Spent with Patient: Total time spent is greater than 50% in coordination of care (as documented) at patient's floor/unit and/or counseling patient: Coding Level of Care Code 18441 Subseq Hosp Care Lvl 2 Diagnoses ESRD needing dialysis N18.6; Z99.2 Hypertensive urgency I16.0 Anemia due to chronic kidney disease N18.9; D63.1 Elevated troponin R77.8 Type 2 diabetes mellitus E11.9 Paroxysmal atrial fibrillation I48.0 Acute on chronic heart failure with preserved ejection fraction I50.33
[2021-12-02] MEDS ORDERED: ALUMINUM/MAGNESIUM SUSP 30 ML UDC PO PRN (17:00)
[2021-12-02] MEDS: ALUMINUM/MAGNESIUM SUSP 30 ML UDC PO PRN (17:11)
[2021-12-03 07:17] LABS: Basophils # (auto) 0.04 K/uL (0-0.2); Basophils % (auto) 0.3 %; Eosinophils # (auto) 0.23 K/uL (0-0.5); Eosinophils % (auto) 1.7 %; Hematocrit (blood only) 28.5 % (37-47); Immature Granulocytes # (auto) 0.07 K/uL (0.00-0.02); Immature Granulocytes % (auto) 0.5 %; Lymphocytes # (auto) 1.68 K/uL (1.2-3.4); Lymphocytes % (auto) 12.6 %; Mean Corpuscular Hemoglobin 28.8 pg (25-34); Mean Corpuscular Hgb Conc 31.6 g/dL (32-36); Mean Corpuscular Volume 91.1 fL (80-100); Mean Platelet Volume 11.1 fL (7.4-10.4); Monocytes # (auto) 1.45 K/uL (0.11-0.59); Monocytes % (auto) 10.8 %; Neutrophils # (auto) 9.91 K/uL (1.4-6.5); Neutrophils % (auto) 74.1 %; Platelet Count 296 K/uL (130-400); RDW Coefficient of Variation 16.2 % (11.5-14.5); RDW Standard Deviation 53.7 fL (36.4-46.3); Red Blood Count 3.13 M/uL (4.2-5.4); White Blood Count 13.38 K/uL (4.8-10.8)
[2021-12-03 07:42] LABS: Alanine Aminotransferase < 3 U/L (7-52); Anion Gap 11 (3-11); Aspartate Aminotransferase 10 U/L (13-39); BUN Creatinine Ratio 9.3 (10-20); Blood Urea Nitrogen 34 mg/dl (6-23); Calcium 8.1 mg/dl (8.5-10.1); Carbon Dioxide 26 mmol/L (21-32); Chloride 100 mmol/L (98-107); Est GFR (African American) 13.8 ml/min; Est GFR (Non-African American) 11.9 ml/min; Glucose 113 mg/dl (70-99(Fasting)); Potassium 3.2 mmol/L (3.5-5.1); Sodium 137 mmol/L (136-145)
[2021-12-03] MEDS ORDERED: POTASSIUM CHLORIDE CRTAB 20 MEQ TABCR PO STA (08:19)
[2021-12-03] MEDS: hydrALAZINE TAB 50 MG TAB PO SCH ×2 (08:35→14:00)
[2021-12-03] MEDS: APIXABAN 2.5 MG TAB PO SCH (08:36)
[2021-12-03] MEDS: ISOSORBIDE MONO EXTENDED REL 60 MG TABCR PO SCH (08:36)
[2021-12-03] MEDS: ATORVASTATIN 40 MG TAB PO SCH (08:36)
[2021-12-03] MEDS: FUROSEMIDE 80 MG TAB PO SCH (08:37)
[2021-12-03] MEDS: PANTOprazole 40 MG TAB PO SCH (08:37)
[2021-12-03] MEDS: METOPROLOL SUCC 25MG EXT REL TAB PO SCH (08:37)
[2021-12-03] MEDS: allopurinoL 100 MG TAB PO SCH (08:37)
[2021-12-03] MEDS: NIFEdipine EXTENDED REL 30 MG TABCR PO SCH (08:38)
[2021-12-03] MEDS: INSULIN GLARGINE SOLOSTAR 100 UNITS/ML 3 ML PEN SQ SCH (08:38)
[2021-12-03] MEDS: INSULIN LISPRO 100 UNIT/ML SC SCH ×3 (08:41→17:15)
[2021-12-03] MEDS: [UNRECOGNIZED DRUG - OTHER] PO SCH (08:42)
[2021-12-03] MEDS: CALCITRIOL 0.25 MCG CAPSULE PO SCH (08:43)
[2021-12-03] MEDS: ACETAMINOPHEN 500 MG TAB PO PRN ×2 (08:46→15:06)
--- NOTE | 2021-12-03 11:26 | Nephrology Progress Note ---
Date of Service December 03, 2021 Assessment & Plan (1) ESRD needing dialysis: (2) Acute on chronic heart failure with preserved ejection fraction: (3) Anemia due to chronic kidney disease: (4) Hypertensive urgency: (5) Hyperphosphatemia: Plan: Ayana has ESRD due to vascular disease and hypertension. TDC placed by Dr. Hayes on 12/01. First dialysis treatment completed 12/01 and second treatment yesterday. Adequate clearance and volume status is acceptable. TDC functioned well. H/H stable. Volume status improving. Anticipate some continued improvement in BP with additional UF. Importance of dietary fluid and sodium restriction has been reviewed. She remains non-oliguric on furosemide 80 mg daily. Medications appropriately dosed for IHD. Continue calcitriol 0.25 QAM. Continue furosemide + spironolactone as Rx. Apixaban restarted now that bleeding from exit site has stopped. Ayana said that she will have transportation to dialysis on Saturday but would not be able to make a 5 AM start time. [facility] will be able to accommodate later in the day and the digital community manager plans to contact Ayana tomorrow to confirm a time. With this understanding, Ayana is stable for discharge from a nephrology standpoint today. Recommendations were relayed to Dr. Hawkins. Admission and Anticipated Discharge Date Admission Date: November 25, 2021 Subjective No acute events overnight. Muscle cramp on the left flank reported overnight. Improvement this morning with use of a heating pad and Tylenol. Tolerated HD well. Clearance acceptable. Ayana contacted her family by phone during our meeting this AM. They are comfortable with Ayana possibly going home today. Review of Systems Review of Systems: All systems reviewed & are unremarkable except as noted in HPI & below Physical Exam Constitutional: WD/WN, vitals as above no acute distress Eyes: + anicteric sclerae ENMT: Ears: no hearing impairment Neck: normal visual inspection Respiratory: no respiratory distress and no cough Auscultation: lungs clear to auscultation bilaterally Cardiovascular: Rate/Rhythm: regular rate and regular rhythm Heart Sounds: normal S1 and normal S2 Extremities: + edema and + vascular access device (rt IJ TDC) Skin: no rashes Neurologic: no focal motor deficits and not confused Psychiatric: Orientation: alert and oriented x 3 Affect: euthymic affect Results & Data ([facility]) Vital Signs (Past 12 Hours) Vital Signs Temp Pulse Resp BP Pulse Ox 12/03/21 07:54 37.1 C 78 16 165/87 H 91 Laboratory Results Laboratory Results - last 24 hr 12/02/21 12/02/21 12/02/21 13:08 16:51 20:33 WBC RBC Hgb Hct MCV MCH MCHC RDW Std Deviation RDW Coeff of Ekaterina Plt Count MPV Immature Gran % (Auto) Neut % (Auto) Lymph % (Auto) [place] % (Auto) Eos % (Auto) Baso % (Auto) Neut # (Auto) Lymph # (Auto) [place] # (Auto) Eos # (Auto) Baso # (Auto) Immature Gran # (Auto) Sodium Potassium Chloride Carbon Dioxide Anion Gap BUN Creatinine Est Cr Clr Drug Dosing Est GFR ( Amer) Est GFR (Non-Af Amer) BUN/Creatinine Ratio Glucose POC Glucose 114 H 155 H 119 H Calcium Magnesium AST ALT 12/03/21 12/03/21 12/03/21 06:50 06:50 06:50 WBC 13.38 H RBC 3.13 L Hgb 9.0 L Hct 28.5 L MCV 91.1 MCH 28.8 MCHC 31.6 L RDW Std Deviation 53.7 H RDW Coeff of Ekaterina 16.2 H Plt Count 296 MPV 11.1 H Immature Gran % (Auto) 0.5 Neut % (Auto) 74.1 Lymph % (Auto) 12.6 [place] % (Auto) 10.8 Eos % (Auto) 1.7 Baso % (Auto) 0.3 Neut # (Auto) 9.91 H Lymph # (Auto) 1.68 [place] # (Auto) 1.45 H Eos # (Auto) 0.23 Baso # (Auto) 0.04 Immature Gran # (Auto) 0.07 H Sodium 137 Potassium 3.2 L Chloride 100 Carbon Dioxide 26 Anion Gap 11 BUN 34 H D Creatinine 3.64 H D Est Cr Clr Drug Dosing 15.0 Est GFR ( Amer) 13.8 Est GFR (Non-Af Amer) 11.9 BUN/Creatinine Ratio 9.3 L Glucose 113 H POC Glucose Calcium 8.1 L Magnesium 1.9 AST 10 L ALT < 3 L 12/03/21 07:51 WBC RBC Hgb Hct MCV MCH MCHC RDW Std Deviation RDW Coeff of Ekaterina Plt Count MPV Immature Gran % (Auto) Neut % (Auto) Lymph % (Auto) [place] % (Auto) Eos % (Auto) Baso % (Auto) Neut # (Auto) Lymph # (Auto) [place] # (Auto) Eos # (Auto) Baso # (Auto) Immature Gran # (Auto) Sodium Potassium Chloride Carbon Dioxide Anion Gap BUN Creatinine Est Cr Clr Drug Dosing Est GFR ( Amer) Est GFR (Non-Af Amer) BUN/Creatinine Ratio Glucose POC Glucose 116 H Calcium Magnesium AST ALT PG Care Time/CCT Total # of Minutes Spent Total Time Spent with Patient: Total time spent is greater than 50% in coordination of care (as documented) at patient's floor/unit and/or counseling patient: Coding Level of Care Code 42171 Subseq Hosp Care Lvl 3 Diagnoses ESRD needing dialysis N18.6; Z99.2 Acute on chronic heart failure with preserved ejection fraction I50.33 Anemia due to chronic kidney disease N18.9; D63.1 Hypertensive urgency I16.0 Hyperphosphatemia E83.39
--- NOTE | 2021-12-03 12:18 | Discharge Summary ---
Date of Service December 03, 2021 Admission HPI Per Admitting Provider Patient is a 71 y/o female with PMH of CAD, CKD4, HTN, HLD, DM2, paroxysmal atrial fibrillation, HFpEF, and gastric ulcers who presents today from home via EMS with chest pain and SOB that has been ongoing since last night.Patient states she checks her weights daily and noticed an increase by 3 pounds in the last 48 hours as well as increased swelling in her lower extremities and abdomen. She attempted to manage this on her own by increasing her Lasix dose from 40 daily to 80 daily. She also took spironolactone 25 mg, which she states she does not take regularly. This did not alleviate her fluid retention, and last evening around 9 PM she developed shortness of breath and stabbing chest pain. States that this is commonly how she presents when she is fluid overloaded. At baseline she has a degree of orthopnea, however over the last few days she has required more pillows to sleep with. She denies fever/chills, headache, body aches, productive cough, rhinorrhea, chest tightness, palpitations, neck/jaw/arm numbness or tingling, abdominal pain, nausea, vomiting, diarrhea, constipation. Patient was given sublingual nitroglycerin as well as an aspirin in route via EMS and this seems to have resolved her shortness of breath and chest pain. She also received labetalol for elevated blood pressure. On arrival here to the ED she is hypertensive at 231/120. BUN 72, creatinine 5.72, troponin 0.07, BNP 443. Patient received 40 mg IV Lasix as well as 40 no equivalent potassium in ED. Hospital team was called for admission and further management. Principal Diagnosis 1. Acute on chronic CHF w/ preserved EF 2. Elevated troponin in the setting of severe CKD 3. ESRD, newly started hemodialysis Discharge Exam GENERAL: 71 yo well-developed, well-nourished WF. NAD. LUNGS: Clear to auscultation bilaterally. No accessory muscle use. No W/R/R. CARDIOVASCULAR: RRR w/ 2/6 [place]. No JVD. ABDOMEN: Soft, non-tender and non-distended. No palpable masses. Bowel sounds normoactive x 4 quad. EXTREMITIES: trace LE edema. Non-tender. Peripheral pulses +2/4. NEUROLOGIC: A&O x3. PSYCHIATRIC: Cooperative. Appropriate mood and affect. SKIN: Warm, dry, intact. No rashes or lesions. perm cath site on right side of chest dressed. Discharge Data Allergies Allergy/AdvReac Type Severity Reaction Status Date / Time heparin Allergy Intermediate Hives Verified 11/25/21 13:50 insulin aspart Allergy Intermediate Hives Verified 11/25/21 13:50 [From Novolog U-100 Insulin aspart] meperidine AdvReac Intermediate hallucinate Verified 11/25/21 11:55 s lisinopril AdvReac Mild COUGHING Verified 11/25/21 11:55 Consultations 11/25/21 11:46 ED Decision to Admit Stat 11/25/21 20:30 Consult Nephrology Routine 11/30/21 10:04 Consult Vascular Surgery Routine Procedures Performed Operation Date: 12/01/21 08:50 Actual Procedures p Insertion of Perm cath, right internal jugular approach, ultrasound localiztion of right internal jugular vein, fluorscopy for positioning, moderate sedation [id number](Right) - Fredy Hayes MD Ordered Studies Chest X-Ray 11/25/21 10:07 XR chest 1V portable HISTORY: 71 years-old Female Chest Pain . Acute atypical chest pain COMPARISON: 05/29/2021 TECHNIQUE: Portable AP view of the chest FINDINGS: Cardiac silhouette is enlarged. Pulmonary vascular congestion with interstitial coarsening. Trace pleural effusions. Mild left basilar consolidation. No pneumothorax. Degenerative changes of the shoulders and spine. IMPRESSION: 1. Cardiomegaly with pulmonary vascular congestion and interstitial coarsening suggestive of pulmonary edema. 2. Trace pleural effusions with mild left lung base consolidation. ACT 112: Negative or not required by law. The above report was generated using voice recognition software. It may contain grammatical, syntax or spelling errors. Electronically signed by: Isac Fernandez M.D. 11/25/2021 10:29 AM Extremity Venous Study 11/26/21 11:53 ULTRASOUND RIGHT UPPER EXTREMITY FOR VENOUS MAPPING Clinical history: Right upper extremity venous mapping. COMPARISON STUDY: No priors. FINDINGS: Real-time grayscale and color Doppler sonography of the right upper extremity veins was performed for the purpose of venous mapping. The right basilic and cephalic veins are patent and normally compressible. The basilic vein ranges in caliber from 0.3 cm in the proximal upper extremity to 0.3 cm in the antecubital fossa. The basilic vein measures up to 0.3 cm in caliber in the forearm. The cephalic vein ranges from 0.3 cm at the shoulder to 0.6 cm in the antecubital fossa. The cephalic vein measures up to 0.3 cm in the forearm. IMPRESSION: Right upper extremity venous mapping measurements as above. Electronically signed by: Carlos A Nazario M.D. 11/27/2021 8:10 AM Hospital Course (1) ESRD needing dialysis: Mrs. Mcnulty is a 71 year old female with a history of Type 2 DM, HFpEF, Hypertension, Hyperlipidemia, CAD s/p Coronary Stent, PUD, Paroxysmal Atrial Fibrillation, and Stage 5 CKD with a need to start dialysis who presented on 11/25/21 with SOB, decreased urinary output despite use of oral Lasix, worsening renal failure with multiple electrolyte abnormalities, and metabolic acidosis. She underwent placement of a perm cath, complicated by post-procedural bleeding (now resolved). As per nephrology: Renal function progressively worsened with multiple electrolyte abnormality, volume overload elevated blood pressure. - 1st dialysis treatment 12/01 for 2 hours with low blood flow. Tolerated well, underwent 3 hours dialysis on 12/02 which she tolerated. - Continue Lasix 80 mg once a day. - Outpatient dialysis being set up at [facility]; plan for next treatment is Tuesday 12/05. - Continue Renvela 1 tab TID. - Continue Calcitriol. (2) Hypertensive urgency: BP is elevated throughout the day today. Should come down with dialysis treatment. - Continue Toprol XL 25 mg daily. - Continue Hydralazine 50 mg t.i.d. - IV Hydralazine as needed. - Continue Nifedipine XL 60 mg daily. - Continue Imdur ER 60 mg daily. - Continue Lasix 80 mg daily. - 2 gram low sodium diet. (3) Anemia due to chronic kidney disease: - Hgb 12/01/21 is 9.9 g/dL. - Management as per nephrology. (4) Elevated troponin: History of CAD s/p LCx stent. No angina pectoris, elevated Troponin I 0.07 x 3 likely secondary to advanced renal disease. - This is not an acute coronary syndrome. - Continue Toprol XL 25 mg daily. - Continue Hydralazine 50 mg t.i.d.. - IV Hydralazine as needed. - Continue Nifedipine XL 60 mg daily. - Continue Imdur ER 60 mg daily. - Continue Lasix 80 mg daily. - 2 gram low sodium diet. - Continue Plavix 75 mg daily. - Continue Atorvastatin 80 mg daily. (5) Type 2 diabetes mellitus: - Insulin requiring type 2 DM. - BSG checks, insulin. (6) Paroxysmal atrial fibrillation: Rate controlled. - Continue Toprol XL 25 mg daily. - Continue Eliquis 2.5 mg b.i.d.. (7) Acute on chronic heart failure with preserved ejection fraction: - Volume status improved, now at dry weight. - Dialysis will make managing her volume status easier. (8) Hypokalemia: - Replacement of KCl 40 meq PO x1 ordered for K+ of 3.2 At this time patient is medically and hemodynamically stable for discharge home. Advise continuing medications as outlined on discharge med reconciliation. Follow-up for next hemodialysis treatment on 12/05/2021. Follow-up with nephrology as an outpatient. Above plan of care has been discussed with Dr. Hawkins who is also seen and evaluated this patient prior to discharge. He is in agreement with the aforementioned. Total Time Total Time Spent Total Time Spent (In Minutes): >30 minutes Discharge Plan Discharge Items Patient Disposition: Home - Self-Care Reason For Visit: SOB Discharge Diagnosis: End stage renal disease, now on dialysis Activity: As commented below Activity Comment: As tolerated Non-emergency contact: Primary Care Provider and Manager [employer] Call non-emergency contact if: you have any medication questions and your symptoms worsen Follow-up/Referrals: Agnieszka Haile MD [Physician] - Shay Hammond DO [Primary Care Provider] - Diet: Carb Consistent or DM2 and Dialysis Renal Addtl Attending Provider Instructions: Take all medications as directed Follow-up with nephrology as scheduled Plan for next dialysis treatment on Saturday. They will be in touch with you regarding a time. Follow-up with your primary care physician within 1 week. Pending Studies at Discharge: No Stand-Alone Forms: My [employer], Smoking Cessation Medications and DC Order Prescriptions: New atorvastatin 40 mg Tablet 80 mg PO QAM Qty: 60 RF: 0 Eliquis 2.5 mg Tablet 2.5 mg PO BID Qty: 60 RF: 0 Continued Lantus Solostar U-100 Insulin 100 unit/mL (3 mL) insulin pen 20 unit SUBCUT QAM Qty: 30 RF: 3 isosorbide mononitrate 60 mg tablet extended release 24 hr 60 mg PO QAM Qty: 90 RF: 3 dicyclomine 10 mg capsule 10 mg PO TID PRN (Reason: Abdominal Discomfort) Qty: 90 RF: 2 clopidogrel [Plavix] 75 mg tablet 75 mg PO QAM Qty: 90 RF: 3 hydralazine 50 mg tablet 50 mg PO TID Qty: 270 RF: 3 allopurinol 100 mg tablet 100 mg PO QAM RF: 0 nifedipine [Procardia XL] 60 mg tablet extended release 24hr 60 mg PO QAM RF: 0 metoprolol succinate 25 mg tablet extended release 24 hr 25 mg PO QAM RF: 0 calcitriol 0.25 mcg capsule 0.25 mcg PO QAM RF: 0 er-0-tiu-epa-fish oil-vit D3 [Fish Oil-Vit D3] 300-1,000-1,000 mg-mg-unit Capsule 1 cap PO QAM RF: 0 insulin lispro [Humalog KwikPen Insulin] 100 unit/mL insulin pen 0 unit subcut TIDM MDD 75 units RF: 0 Changed furosemide 40 mg tablet 80 mg PO QAM Qty: 60 RF: 0 Discontinued Eliquis 5 mg tablet 5 mg PO BID Qty: 180 RF: 3 spironolactone 25 mg tablet 25 mg PO DAILY PRN (Reason: Edema) RF: 0 Discharge Orders: Discharge Order (Routine); Ordered 12/03/21 Ordered By: Taya Gibbons/Other Patient Handouts: Managing Type 2 Diabetes Admission Data Admit Date/Time: 11/25/21 12:52 Attending Provider: Juan Carlos Hawkins Admit Provider: Placido Quezada Primary Care Provider: Shay Hammond Other Providers: Placido Quezada ; Agnieszka Haile Eugene J Other Interventions: Discharge Summary Assessment (RN) Last Done: 12/03/21 13:41 Coding Level of Care Code D/C DAY MANAGEMENT >30 MINS Diagnoses ESRD needing dialysis N18.6; Z99.2 Hypertensive urgency I16.0 Anemia due to chronic kidney disease N18.9; D63.1 Elevated troponin R77.8 Type 2 diabetes mellitus E11.9 Paroxysmal atrial fibrillation I48.0 Acute on chronic heart failure with preserved ejection fraction I50.33 Hypokalemia E87.6
[2021-12-05 18:29] LABS: Renin Activity 6.99 ng/mL/h (0.25-5.82)
== END 2021-12-03 17:30 | disposition home or self-care (01) | DRG 291 ==
LOC: ED 10:05 → SUATTDRO 12:52 → 3E 12:52

== ENCOUNTER 2022-07-11 20:14 | Inpatient (IN) ==
[2022-07-11 21:22] LABS: Partial Thromboplastin Ratio 0.8; Partial Thromboplastin Time 20.9 Seconds (21.0-31.0); Prothrombin Time 10.9 Seconds (9.0-12.0)
[2022-07-11 21:46] LABS: Basophils # (auto) 0.07 K/uL (0-0.2); Basophils % (auto) 0.5 %; Eosinophils # (auto) 1.08 K/uL (0-0.50); Eosinophils % (auto) 7.9 %; Hematocrit (blood only) 30.6 % (34.1-44.9); Immature Granulocytes # (auto) 0.15 K/uL (0.00-0.02); Immature Granulocytes % (auto) 1.1 %; Lymphocytes # (auto) 1.31 K/uL (1.2-3.4); Lymphocytes % (auto) 9.5 %; Mean Corpuscular Hemoglobin 29.7 pg (25.0-34.0); Mean Corpuscular Hgb Conc 32.7 g/dL (32.0-36.0); Mean Corpuscular Volume 90.8 fL (80.0-100.0); Mean Platelet Volume 11.7 fL (9.4-12.3); Monocytes # (auto) 1.48 K/uL (0.24-0.82); Monocytes % (auto) 10.8 %; Neutrophils # (auto) 9.63 K/uL (1.4-6.5); Neutrophils % (auto) 70.2 %; Platelet Count 267 K/uL (130-400); RDW Coefficient of Variation 14.2 % (11.5-14.5); RDW Standard Deviation 46.7 fL (36.4-46.3); Red Blood Count 3.37 M/uL (3.93-5.22); White Blood Count 13.72 K/ul (4.8-10.8)
[2022-07-11 21:58] LABS: Alanine Aminotransferase 11 U/L (7-52); Albumin Globulin Ratio 0.7 (0.9-2); Albumin Level 2.9 gm/dl (3.4-5.0); Alkaline Phosphatase 125 U/L (34-104); Anion Gap 23 (3-11); Aspartate Aminotransferase 16 U/L (13-39); BUN Creatinine Ratio 7.9 (10-20); Bilirubin,Total 0.6 mg/dl (0.2-1.0); Blood Urea Nitrogen 62 mg/dl (6-23); Calcium 8.1 mg/dl (8.5-10.1); Carbon Dioxide 20 mmol/L (21-32); Chloride 93 mmol/L (98-107); Est GFR (African American) 5.4 ml/min; Est GFR (Non-African American) 4.6 ml/min; Globulin 4.2 gm/dl (2.5-4.0); Glucose 141 mg/dl (70-99(Fasting)); Magnesium 1.4 mg/dl (1.7-2.4); Phosphorus 6.5 mg/dl (2.5-4.9); Potassium 3.2 mmol/L (3.5-5.1); Sodium 136 mmol/L (136-145); Total Protein 7.1 gm/dl (6.0-8.3); Troponin I High Sensitivity 78.8 pg/ml (0-14)
[2022-07-11] MEDS ORDERED: hydrALAZINE HCL 25 MG TAB PO STA (22:02)
[2022-07-11] MEDS ORDERED: ACETAMINOPHEN 1,000 MG/100 ML VIAL IV STA (22:02)
[2022-07-11] MEDS ORDERED: MAGNESIUM SULFATE / D5W 1 GM/100 ML BAG IV STA (22:10)
--- NOTE | 2022-07-12 00:55 | History & Physical Report ---
Date of Service July 12, 2022 Assessment & Plan (1) Atrial fibrillation with RVR: Plan: Ayana Mcnulty is a 72-year-old female with past medical history of end-stage renal disease on hemodialysis, A. fib on Eliquis, hyperlipidemia, type 2 diabetes who presented due to anterior chest pain that had been going on for the past 2 days. Chest pain/A. fib with RVR Most likely chest pain is in the context of RVR EKG A. fib with RVR, some nonspecific ST abnormalities but no overt elevations Did have a mild troponin elevation to 78 with recheck at 96.3, but she does have end-stage renal disease on hemodialysis Continue to trend troponins Heart rate now controlled at 60s Sees [facility] etiology in the outpatient setting consult placed Continue Eliquis 2.5 mg p.o. twice daily, metoprolol succinate 25 mg p.o. daily ESRD on hemodialysis She does peritoneal dialysis on a daily basis skipped dialysis today Sees [facility] nephrology consult CAD/hypertension Continue metoprolol, isosorbide mononitrate, atorvastatin, Plavix, furosemide HFpEF Continue home furosemide Can consider giving additional IV diuretic DM2 Hold home regimen Sliding scale with bolus while admitted DVT prophylaxis: Anticoagulated on Eliquis Diet: Heart healthy DM2 Dispo: Telemetry CODE STATUS: Full (2) Type 2 diabetes mellitus: (3) ESRD needing dialysis: (4) Hyperlipidemia: (5) CAD (coronary artery disease): (6) Hypertension: (7) Chronic heart failure with preserved ejection fraction (HFpEF): History of Present Illness Primary Care Provider: Elizabeth Schreiber MD Ayana Mcnulty is a 72-year-old female with past medical history of end-stage renal disease on hemodialysis, A. fib on Eliquis, hyperlipidemia, type 2 diabetes who presented due to anterior chest pain that had been going on for the past 2 days. She she reported that the pain does come and go to a certain extent, but that she does feel a discomfort all the time. The pain has been midsternal radiating to both sides of the chest. She has also felt some associated shortness of breath. She states that she has also had some back pain after she was getting out of bed and made a twisting movement that ended up hurting her back. She went to her chiropractor but did not get much relief from this. Of note, patient does do peritoneal dialysis on a daily basis by her self and states she did not have her dialysis today. She denies nausea, vomiting, abdominal pain, weakness, numbness, headache, dizziness, swelling, fever, chills, rash. In the ED, patient had EKG showing A. fib with RVR and some nonspecific ST abnormalities but no obvious ST depressions. Chest x-ray did show some vascular congestion, there is some free air underneath the right diaphragm which is likely related to her peritoneal dialysis. Lab work showed troponin of 78 initially with repeat at 96.3, white count of 13.72, anemia with hemoglobin of 10, hypokalemia of 3.2, hypomagnesemia of 1.4, hyperphosphatemia 6.5. She received hydralazine 25 mg p.o. x1, magnesium 1 g IV x1, acetaminophen 1000 mg IV x1. Allergies Allergy/AdvReac Type Severity Reaction Status Date / Time heparin Allergy Intermediate Hives Verified 07/11/22 23:51 insulin aspart Allergy Intermediate Hives Verified 07/11/22 23:51 [From Novolog U-100 Insulin aspart] meperidine AdvReac Intermediate hallucinate Verified 07/11/22 23:51 s lisinopril AdvReac Mild COUGHING Verified 07/11/22 23:51 Home Medications Medication Instructions Recorded Confirmed Type [id number]-epa-fish oil-vit D3 300 1 cap PO QAM 05/26/21 07/11/22 History mg-1,000 mg-1,000 unit capsule (Fish Oil-Vit D3) clopidogrel 75 mg tablet (Plavix) 75 mg PO QAM #90 tabs 09/15/21 07/11/22 Rx isosorbide mononitrate 60 mg 60 mg PO QAM #90 tabs 10/24/21 07/11/22 Rx tablet,extended release 24 hr dicyclomine 10 mg capsule 10 mg PO TID PRN Abdominal 10/31/21 07/11/22 Rx Discomfort #90 caps calcitriol 0.25 mcg capsule 0.25 mcg PO QAM 11/25/21 07/11/22 History metoprolol succinate 25 mg 25 mg PO QAM 11/25/21 07/11/22 History tablet,extended release 24 hr nifedipine 60 mg tablet,extended 60 mg PO QAM 11/25/21 07/11/22 History release 24 hr (Procardia XL) apixaban 2.5 mg tablet (Eliquis) 2.5 mg PO BID #60 tabs 12/03/21 07/11/22 Rx atorvastatin 40 mg tablet (Lipitor) 80 mg PO QAM 04/09/22 07/11/22 History furosemide 80 mg tablet 80 mg PO QAM 04/09/22 07/11/22 History insulin glargine 100 unit/mL (3 10 unit subcut BID 04/09/22 07/11/22 History mL) subcutaneous pen (Lantus Solostar U-100 Insulin) allopurinol 100 mg tablet 100 mg PO QAM #90 tabs 05/01/22 07/11/22 Rx (Zyloprim) OneTouch Ultra Test (blood sugar #300 ea 06/18/22 07/11/22 Rx diagnostic) hydralazine 50 mg tablet 50 mg PO TID 07/11/22 07/11/22 History insulin lispro 100 unit/mL 10 unit subcut QAM 07/11/22 07/11/22 History subcutaneous pen Past Med/Surg History Medical History Abdominal pain Ongoing -- following with [facility]. Anemia due to chronic kidney disease Atrial fibrillation Occurred during hospital stay in [facility] ~2020. Treated with medication at the time. No problems since. Follows with Dr. Knott CAD (coronary artery disease) S/p stent to LCx 2009 and RCA in 2018 Carotid artery disease Carotid duplex 08/19/2018 = 5059% stenosis on the right internal carotid artery. No significant stenosis in the left internal carotid artery. Chronic back pain Significant x 2 years Has seen pain management - s/p epidural injections- only lasted 6 weeks for pain relief Chronic heart failure with preserved ejection fraction (HFpEF) Deep vein thrombosis (~05/2021) Unknown cause Degenerative disc disease Diabetes mellitus, type 2 IDDM Glucose stable and controlled per patient ESRD needing dialysis Started in Nov 2021 Hemodialysis patient Diaylsis in [place]: Saturday, Saturday, Saturday through [facility] History of stent insertion of renal artery 2013 Hyperlipidemia Hypertension Lymphedema Obesity Osteoarthritis Renal artery stenosis S/p renal stent 2013 Status post myocardial infarction Subclavian artery stenosis Per 08/19/18 carotid duplex- Normal flow in the innominate and right subclavian arteries. >50% stenosis of the proximal left subclavian artery with retrograde flow in the left vertebral artery and >40 mmHg difference in brachial systolic pressures (right >left). Surgical History H/O heart artery stent x2, last stent placed ~2016. History of cardiac cath x2, most recent done about 5 years ago in [place]. History of colonoscopy History of esophagogastroduodenoscopy (EGD) S/P arteriovenous (AV) fistula creation right (Dr Hayes) 12/2021 S/P epidural steroid injection Family History Other Hypertension No family history of adverse response to anesthesia Social History Smoking Status: Never smoker Second Hand Exposure: Yes (hx); Hx Alcohol Use: No Hx Substance Use: No Preferred Language: Yi Communication Ability: Effective Visual Impairment: No Limitations Special Police Required: No Beliefs That Will Affect Care: None marital status: Single Current Living Situation: Family Current Living Situation Comment: Grandson How many Children do You have: 2 Feels Safe at Home: Yes Safety Concerns: Feels Safe At This Time Assistive Devices: Glasses Review of Systems Review of Systems: Per HPI Physical Exam Physical Exam: GENERAL: A&Ox3. NAD. HEENT: PERRL, EOMI. Moist mucous membranes. NECK: No JVD. No lymphadenopathy. CHEST/LUNGS: CTAB A/P. No crackles, wheezes, rales, rhonchi. HEART: Irregularly irregular. Holosystolic murmur best heard at right sternal border. No carotid bruits. ABDOMEN: NT/ND, soft. BS+ x4 EXTREMITIES: No cyanosis, no clubbing, no edema SKIN: Warm and dry. No rashes or lesions. PSYCHIATRIC: Euthymic affect, no SI, no pressured speech, no hallucinations NEUROLOGIC: No FND. CN II-XII grossly intact. Results & Data Results & Data ([facility]) Vital Signs (Past 12 Hours) Vital Signs Temp Pulse Pulse Resp BP BP Pulse Ox 07/12/22 00:00 99 H 26 H 110/66 95 07/11/22 22:00 116 H 20 157/67 H 99 07/11/22 21:31 94 07/11/22 21:03 95 07/11/22 21:02 95 07/11/22 21:02 117 H 20 181/95 H 95 07/11/22 20:15 36.6 C 108 H 22 148/77 H 90 O2 Del Method O2 Flow Rate 07/12/22 00:00 Nasal Cannula 2 07/11/22 22:00 Nasal Cannula 2 07/11/22 21:31 Room Air, Nasal Cannula 07/11/22 21:03 Room Air 07/11/22 21:02 Room Air 07/11/22 21:02 Room Air 07/11/22 20:15 Room Air Supervising Physician Co-Signing Physician Notes Attending addendum: I have physically seen this patient, have supervised the medical residents activities, and agree with the H&P unless as otherwise noted. Assessment and Plan: Atrial fibrillation with RVR/CAD/hypertension/HFpEF- The patient will be admitted to telemetry for serial cardiac enzymes, serial EKG's, cardiac rhythm monitoring and a 2-D echocardiogram with Dopplers. Troponin 78, with recheck to 96.3 Continue Eliquis 2.5 mg p.o. twice daily,Metoprolol succinate 25 mg p.o. daily, isosorbide mononitrate, clopidogrel, furosemide Blood pressure 5 mg IV every 4 hours as needed heart rate greater than 110 ESR and HD- Patient skipped dialysis today Consult nephrology for resumption of dialysis Hypomagnesemia- Magnesium 1.4 Give 1 g mag sulfate IV, recheck laboratories in a.m. Hyperlipidemia- Continue atorvastatin Diabetes mellitus- Placed on Accu-Cheks with NovoLog coverage Remaining orders and notations as noted Resident Activity Tracking Resident Involvement: Resident Care Provided Care Provided: Adult Hospital Medicine (1) CAD (coronary artery disease) Associated angina: without angina Coronary Disease-Associated Artery/Lesion type: [place] artery [place] vs. transplanted heart: [place] heart Qualified Code(s): I25.10 - Atherosclerotic heart disease of [place] coronary artery without angina pectoris (2) Hyperlipidemia Hyperlipidemia type: unspecified Qualified Code(s): E78.5 - Hyperlipidemia, unspecified (3) Hypertension Hypertension type: essential hypertension Qualified Code(s): I10 - Essential (primary) hypertension
--- NOTE | 2022-07-12 02:34 | Emergency Department Note ---
Impression & Plan Atrial fibrillation with RVR, Chest pain, Elevated troponin, ESRD on peritoneal dialysis, Hypomagnesemia ED Provider Note NAME: CAMPOS CRAWFORD AGE: 72 SEX: F ARRIVES VIA: Walk-In INFORMANT: Patient ED PROVIDER(S): Adi Robert MD CHIEF COMPLAINT: chest pain PLAN: Disposition: Admit MEDICAL DECISION MAKING: The patient is a pleasant 72-year-old woman with a past medical history of end- stage renal disease on peritoneal dialysis at night at home, CAD, hypertension, hyperlipidemia who presents to the emergency department for evaluation of upper anterior chest pain that has been constant for the past couple of days. She reports that tonight she felt that the symptoms were persisting and concerned her that something was wrong. She denies any fevers, chills, cough, congestion, GI or symptoms. She reports increased pain when she takes deep breaths. Denies any nausea, vomiting, diarrhea. On arrival, the patient is fatigued appearing but no acute distress, afebrile heart rate in the 100s in atrial fibrillation, blood pressure rising to 180s/90s but in the setting of being due for pain which was given and BP subsequently improved. Vital signs otherwise stable. The patient's O2 saturation will drift down intermittently to 88% on room air and so was placed on 2 L nasal cannula. He has diminished breath sounds at the bases. She has 1+ bilateral lower extremity edema. Abdomen is benign. Peritoneal dialysis site is clean dry and intact EKG demonstrates atrial fibrillation with ST abnormalities without overt ST elevation. Chest x-ray demonstrates venous congestion with interstitial thickening per my preliminary review., Note is made of suspected free air underneath the right diaphragm in the setting of the patient's peritoneal dialysis. The patient was reexamined and continues to have no abdominal tenderness or abdominal pain. She does admit that she may not be consistent in clamping her catheter effectively when performing her peritoneal dialysis. WBC 13.7K, nonspecific and similar to prior values. H/H 10/30.6, similar to prior range values. Platelets within normal limits. Chemistry without metabolic acidosis. Creatinine 7.8 in setting of the patient's end-stage renal disease due for her nocturnal peritoneal dialysis. Potassium 3.2. Magnesium 1.4 with repletion provided. LFTs are unremarkable. Initial high-sensitivity troponin 78 with delta 2-hour high-sensitivity troponin 96, nonspecific and in setting of the patient's end-stage renal disease as well as atrial fibrillation with RVR. RNA, SCOTT test was negative. Patient did report feeling improved after IV APAP. However, given the patient's uptrending troponin in the setting of her symptoms she did agree with plan admission for further management. Case was discussed with Dr. Duarte, [facility] hospitalist, who will evaluate the patient for admission. Triage Nursing notes reviewed and agree them. Prior medical records reviewed Vital Signs: reviewed and remarkable for tachycardia, hypertension. Differential diagnosis: Cardiac ischemia, aortic dissection, pulmonary embolism, pneumothorax, pneumonia, pericarditis, myocarditis, esophageal rupture, GERD, cholecystitis, pancreatitis, musculoskeletal, as well as other pathologies. ER treatment provided: See below. Diagnostics interpreted by me: ECG: Atrial fibrillation with RVR, 123 bpm, marked ST abnormality, no overt ST elevation. QTc 420, QRS 102. Cardiac Monitoring: An order for continuous cardiac monitoring was placed and demonstrated Atrial fibrillation with RVR, 123 bpm, no ectopy. Laboratory studies: See below Imaging studies: See below Consultation(s): Case was discussed with Dr. Duarte [facility] hospitalist, who will evaluate the patient for admission. HPI: The patient is a pleasant 72-year-old woman with a past medical history of end-stage renal disease on peritoneal dialysis at night at home, CAD, hypertension, hyperlipidemia who presents to the emergency department for ev aluation of upper anterior chest pain that has been constant for the past couple of days. She reports that tonight she felt that the symptoms were persisting and concerned her that something was wrong. She denies any fevers, chills, cough, congestion, GI or symptoms. She reports increased pain when she takes deep breaths. Denies any nausea, vomiting, diarrhea. ROS: See above HPI for pertinent positives & negatives. A total of 10 systems reviewed and were otherwise negative. VITALS:See Below PHYSICAL EXAMINATION: GENERAL: Awake, alert, fatigued-appearing, in no distress HENT: Normocephalic, atraumatic. Oropharynx unremarkable. EYES: Normal conjunctiva. Sclera non-icteric. NECK: Supple. No nuchal rigidity. FROM. No JVD. RESPIRATORY: Diminished at bases and otherwise clear to auscultation. CARDIAC: Tachycardic rate, irregular rhythm. Extremities warm and well perfused. Pulses equal. ABDOMEN: Soft, non-distended. No tenderness to palpation. No rebound or guarding. No masses. RECTAL: Deferred. MUSCULOSKELETAL: Chest examination reveals mild anterior CW tenderness. The back is symmetrical on inspection without obvious abnormality. There is no CVA tenderness to palpation. No joint edema. LOWER EXTREMITIES: Calves are equal size bilaterally and non-tender. 1+ BLE edema. No discoloration. NEURO: Normal sensorium. No sensory or motor deficits noted. SKIN: No rash or jaundice noted. ED COURSE: Critical Care: I have personally spent greater than 35 minutes of critical care time in the direct management of this patient. This includes bedside care, interpretation of diagnostic studies, and testing, discussion with consultants, patient, and family members, and other required patient management activities. This 35 minutes is in excess of all separately billable procedures. Adi Robert MD Past Med/Surg History Medical History Abdominal pain Ongoing -- following with [facility]. Anemia due to chronic kidney disease Atrial fibrillation Occurred during hospital stay in [facility] ~2020. Treated with medication at the time. No problems since. Follows with Dr. Knott CAD (coronary artery disease) S/p stent to LCx 2009 and RCA in 2019 Carotid artery disease Carotid duplex 08/19/2018 = 5059% stenosis on the right internal carotid artery. No significant stenosis in the left internal carotid artery. Chronic back pain Significant x 2 years Has seen pain management - s/p epidural injections- only lasted 6 weeks for pain relief Chronic heart failure with preserved ejection fraction (HFpEF) Deep vein thrombosis (~05/2021) Unknown cause Degenerative disc disease Diabetes mellitus, type 2 IDDM Glucose stable and controlled per patient ESRD needing dialysis Started in Nov 2021 Hemodialysis patient Diaylsis in [place]: Saturday, Saturday, Saturday through [facility] History of stent insertion of renal artery 2013 Hyperlipidemia Hypertension Lymphedema Obesity Osteoarthritis Renal artery stenosis S/p renal stent 2013 Status post myocardial infarction Subclavian artery stenosis Per 08/19/18 carotid duplex- Normal flow in the innominate and right subclavian arteries. >50% stenosis of the proximal left subclavian artery with retrograde flow in the left vertebral artery and >40 mmHg difference in brachial systolic pressures (right >left). Surgical History H/O heart artery stent x2, last stent placed ~2017. History of cardiac cath x2, most recent done about 5 years ago in [place]. History of colonoscopy History of esophagogastroduodenoscopy (EGD) S/P arteriovenous (AV) fistula creation right (Dr Hayes) 12/2021 S/P epidural steroid injection Family History Other Hypertension No family history of adverse response to anesthesia Social History Smoking Status: Never smoker Second Hand Exposure: Yes (hx); Hx Alcohol Use: No Hx Substance Use: No Preferred Language: Welsh Communication Ability: Effective Visual Impairment: No Limitations Immigration Services Officer Required: No Beliefs That Will Affect Care: None marital status: Single Current Living Situation: Family Current Living Situation Comment: Grandson How many Children do You have: 2 Feels Safe at Home: Yes Safety Concerns: Feels Safe At This Time Assistive Devices: Glasses Allergies Allergies Allergy/AdvReac Type Severity Reaction Status Date / Time heparin Allergy Intermediate Hives Verified 07/11/22 23:51 insulin aspart Allergy Intermediate Hives Verified 07/11/22 23:51 [From Novolog U-100 Insulin aspart] meperidine AdvReac Intermediate hallucinate Verified 07/11/22 23:51 s lisinopril AdvReac Mild COUGHING Verified 07/11/22 23:51 Home Meds Home Medications Medication Instructions Recorded Confirmed [id number] oil-vit D3 300 1 cap PO QAM 05/26/21 07/11/22 mg-1,000 mg-1,000 unit capsule (Fish Oil-Vit D3) calcitriol 0.25 mcg capsule 0.25 mcg PO QAM 11/25/21 07/11/22 metoprolol succinate 25 mg 25 mg PO QAM 11/25/21 07/11/22 tablet,extended release 24 hr nifedipine 60 mg tablet,extended 60 mg PO QAM 11/25/21 07/11/22 release 24 hr (Procardia XL) atorvastatin 40 mg tablet (Lipitor) 80 mg PO QAM 04/09/22 07/11/22 furosemide 80 mg tablet 80 mg PO QAM 04/09/22 07/11/22 insulin glargine 100 unit/mL (3 10 unit subcut BID 04/09/22 07/11/22 mL) subcutaneous pen (Lantus Solostar U-100 Insulin) hydralazine 50 mg tablet 50 mg PO TID 07/11/22 07/11/22 insulin lispro 100 unit/mL 10 unit subcut QAM 07/11/22 07/11/22 subcutaneous pen Previous Rx's Medication Instructions Recorded clopidogrel 75 mg tablet (Plavix) 75 mg PO QAM #90 tabs 09/15/21 isosorbide mononitrate 60 mg 60 mg PO QAM #90 tabs 10/24/21 tablet,extended release 24 hr dicyclomine 10 mg capsule 10 mg PO TID PRN Abdominal 10/31/21 Discomfort #90 caps apixaban 2.5 mg tablet (Eliquis) 2.5 mg PO BID #60 tabs 12/03/21 allopurinol 100 mg tablet 100 mg PO QAM #90 tabs 05/01/22 (Zyloprim) OneTouch Ultra Test (blood sugar #300 ea 06/18/22 diagnostic) Results & Data (ED) Vital Signs Vital Signs - 24 hr 07/11/22 20:15 07/11/22 21:02 07/11/22 21:02 Temperature 36.6 C Temperature Source Temporal Artery Scan Pulse Rate 108 H Pulse Rate [Apical] 117 H Pulse Rhythm Irregular Pulse Rhythm [Apical] Irregular Respiratory Rate 22 20 Respiratory Effort / Characteristics Non-Labored Spontaneous Respiratory Depth Normal Blood Pressure 148/77 H Blood Pressure [Left Arm] 181/95 H Blood Pressure Mean 100 Blood Pressure Mean [Left Arm] 123 Pulse Oximetry 90 95 95 Oxygen Delivery Method Room Air Room Air Room Air Oxygen Flow Rate Sepsis Recent Fever Within 48 Hours No Sepsis New/Unexplained Change in Mental Status No Sepsis Action Taken by Nursing No Action Required Oxygen Flow Rate - Titration Pulse Oximetry Post Tiitration 07/11/22 21:03 07/11/22 21:31 07/11/22 22:00 Temperature Temperature Source Pulse Rate Pulse Rate [Apical] 116 H Pulse Rhythm Pulse Rhythm [Apical] Respiratory Rate 20 Respiratory Effort / Characteristics Respiratory Depth Blood Pressure Blood Pressure [Left Arm] 157/67 H Blood Pressure Mean Blood Pressure Mean [Left Arm] 97 Pulse Oximetry 95 94 99 Oxygen Delivery Method Room Air Room Air Nasal Cannula Nasal Cannula Oxygen Flow Rate 2 Sepsis Recent Fever Within 48 Hours Sepsis New/Unexplained Change in Mental Status Sepsis Action Taken by Nursing Oxygen Flow Rate - Titration 2 Pulse Oximetry Post Tiitration 98 07/12/22 00:00 Temperature Temperature Source Pulse Rate Pulse Rate [Apical] 99 H Pulse Rhythm Pulse Rhythm [Apical] Respiratory Rate 26 H Respiratory Effort / Characteristics Respiratory Depth Blood Pressure Blood Pressure [Left Arm] 110/66 Blood Pressure Mean Blood Pressure Mean [Left Arm] 80 Pulse Oximetry 95 Oxygen Delivery Method Nasal Cannula Oxygen Flow Rate 2 Sepsis Recent Fever Within 48 Hours Sepsis New/Unexplained Change in Mental Status Sepsis Action Taken by Nursing Oxygen Flow Rate - Titration Pulse Oximetry Post Tiitration Laboratory Data Attestation: I reviewed the patient's lab results. Result diagrams: 07/12/22 06:40 07/12/22 11:42 Lab Results 07/11/22 07/11/22 07/11/22 Range/Units 20:53 20:53 20:53 WBC Cancelled RBC Cancelled Hgb Cancelled Hct Cancelled MCV Cancelled MCH Cancelled MCHC Cancelled RDW Std Deviation Cancelled RDW Coeff of Ekaterina Cancelled Plt Count Cancelled MPV Cancelled Immature Gran % (Auto) Cancelled Neut % (Auto) Cancelled Lymph % (Auto) Cancelled Bradley % (Auto) Cancelled Eos % (Auto) Cancelled Baso % (Auto) Cancelled Neut # (Auto) Cancelled Lymph # (Auto) Cancelled Bradley # (Auto) Cancelled Eos # (Auto) Cancelled Baso # (Auto) Cancelled Immature Gran # (Auto) Cancelled Absolute Nucleated RBC Cancelled Nucleated RBC % (auto) Cancelled Neutrophils % (Manual) Cancelled Band Neutrophils % Cancelled Lymphocytes % (Manual) Cancelled Prolymphocyte % Cancelled Reactive Lymphs % (Man) Cancelled Monocytes % (Manual) Cancelled Eosinophils % (Manual) Cancelled Basophils % (Manual) Cancelled Metamyelocytes % (Man) Cancelled Myelocytes % (Man) Cancelled Promyelocytes % (Man) Cancelled Blast Cells % (Manual) Cancelled Plasma Cell % (Manual) Cancelled Other Cells % Cancelled Nucleated RBC % Cancelled Neutrophils # (Manual) Cancelled Band Neutrophils # Cancelled Total Absolute Neuts Cancelled Lymphocytes # (Manual) Cancelled Prolymphocyte # Cancelled Reactive Lymphs # Cancelled Total Abs Lymphocytes Cancelled Monocytes # (Manual) Cancelled Eosinophils # (Manual) Cancelled Basophils # (Manual) Cancelled Metamyelocytes # (Man) Cancelled Myelocytes # (Manual) Cancelled Promyelocytes # (Man) Cancelled Blast Cells # (Man) Cancelled Plasma Cell # (Manual) Cancelled Other Cells # Cancelled Nucleated RBCs # (Man) Cancelled Hypersegmented Neuts Cancelled Hyposegmented Neuts Cancelled Hypogranular Neuts Cancelled Large Granular Lymphs Cancelled # Lrg Granular Lymphs Cancelled Hairy Cells Cancelled Smudge Cells Cancelled Toxic Granulation Cancelled Toxic Vacuolation Cancelled Dohle Bodies Cancelled [place] Rods Cancelled Platelet Estimate Cancelled Hypogranular Platelets Cancelled Clumped Platelets Cancelled Giant Platelets Cancelled Platelet Satelliting Cancelled RBC Morphology Cancelled Polychromasia Cancelled Hypochromasia Cancelled Poikilocytosis Cancelled Basophilic Stippling Cancelled Anisocytosis Cancelled Microcytosis Cancelled Macrocytosis Cancelled Spherocytes Cancelled Pappenheimer Bodies Cancelled Sickle Cells Cancelled Target Cells Cancelled Tear Drop Cells Cancelled Ovalocytes Cancelled Stomatocytes Cancelled Albright-Bunch Bodies Cancelled Echinocytes Cancelled Acanthocytes (Spur) Cancelled Rouleaux Cancelled RBC Agglutinates Cancelled Schistocytes Cancelled Sezary Cell Cancelled PT 10.9 (9.0-12.0) Seconds INR 1.0 (0.9-1.1) APTT 20.9 L (21.0-31.0) Seconds PTT Ratio 0.8 Sodium 136 (136-145) mmol/L Potassium 3.2 L (3.5-5.1) mmol/L Chloride 93 L (98-107) mmol/L Carbon Dioxide 20 L (21-32) mmol/L Anion Gap 23 H (3-11) BUN 62 H (6-23) mg/dl Creatinine 7.87 H* (0.6-1.2) mg/dl Est Cr Clr Drug Dosing Not Reportable Est GFR ( Amer) 5.4 ml/min Est GFR (Non-Af Amer) 4.6 ml/min BUN/Creatinine Ratio 7.9 L (10-20) Glucose 141 H (70-99(Fasting)) mg/dl Calcium 8.1 L (8.5-10.1) mg/dl Phosphorus 6.5 H (2.5-4.9) mg/dl Magnesium 1.4 L (1.7-2.4) mg/dl Total Bilirubin 0.6 (0.2-1.0) mg/dl AST 16 (13-39) U/L ALT 11 (7-52) U/L Alkaline Phosphatase 125 H (34-104) U/L Troponin I High Sens 78.8 H* (0-14) pg/ml Total Protein 7.1 (6.0-8.3) gm/dl Albumin 2.9 L (3.4-5.0) gm/dl Globulin 4.2 H (2.5-4.0) gm/dl Albumin/Globulin Ratio 0.7 L (0.9-2) SARS-CoV-2, RNA, NAAT (NEGATIVE) Blood Parasites ID Cancelled 07/11/22 07/11/22 07/11/22 Range/Units 21:36 22:50 23:17 WBC 13.72 H RBC 3.37 L Hgb 10.0 L Hct 30.6 L MCV 90.8 MCH 29.7 MCHC 32.7 RDW Std Deviation 46.7 H RDW Coeff of Ekaterina 14.2 Plt Count 267 MPV 11.7 Immature Gran % (Auto) 1.1 Neut % (Auto) 70.2 Lymph % (Auto) 9.5 Bradley % (Auto) 10.8 Eos % (Auto) 7.9 Baso % (Auto) 0.5 Neut # (Auto) 9.63 H Lymph # (Auto) 1.31 Bradley # (Auto) 1.48 H Eos # (Auto) 1.08 H Baso # (Auto) 0.07 Immature Gran # (Auto) 0.15 H Absolute Nucleated RBC Nucleated RBC % (auto) Neutrophils % (Manual) Band Neutrophils % Lymphocytes % (Manual) Prolymphocyte % Reactive Lymphs % (Man) Monocytes % (Manual) Eosinophils % (Manual) Basophils % (Manual) Metamyelocytes % (Man) Myelocytes % (Man) Promyelocytes % (Man) Blast Cells % (Manual) Plasma Cell % (Manual) Other Cells % Nucleated RBC % Neutrophils # (Manual) Band Neutrophils # Total Absolute Neuts Lymphocytes # (Manual) Prolymphocyte # Reactive Lymphs # Total Abs Lymphocytes Monocytes # (Manual) Eosinophils # (Manual) Basophils # (Manual) Metamyelocytes # (Man) Myelocytes # (Manual) Promyelocytes # (Man) Blast Cells # (Man) Plasma Cell # (Manual) Other Cells # Nucleated RBCs # (Man) Hypersegmented Neuts Hyposegmented Neuts Hypogranular Neuts Large Granular Lymphs # Lrg Granular Lymphs Hairy Cells Smudge Cells Toxic Granulation Toxic Vacuolation Dohle Bodies [place] Rods Platelet Estimate Hypogranular Platelets Clumped Platelets Giant Platelets Platelet Satelliting RBC Morphology Polychromasia Hypochromasia Poikilocytosis Basophilic Stippling Anisocytosis Microcytosis Macrocytosis Spherocytes Pappenheimer Bodies Sickle Cells Target Cells Tear Drop Cells Ovalocytes Stomatocytes Albright-Bunch Bodies Echinocytes Acanthocytes (Spur) Rouleaux RBC Agglutinates Schistocytes Sezary Cell PT (9.0-12.0) Seconds INR (0.9-1.1) APTT (21.0-31.0) Seconds PTT Ratio Sodium (136-145) mmol/L Potassium (3.5-5.1) mmol/L Chloride (98-107) mmol/L Carbon Dioxide (21-32) mmol/L Anion Gap (3-11) BUN (6-23) mg/dl Creatinine (0.6-1.2) mg/dl Est Cr Clr Drug Dosing Est GFR ( Amer) ml/min Est GFR (Non-Af Amer) ml/min BUN/Creatinine Ratio (10-20) Glucose (70-99(Fasting)) mg/dl Calcium (8.5-10.1) mg/dl Phosphorus (2.5-4.9) mg/dl Magnesium (1.7-2.4) mg/dl Total Bilirubin (0.2-1.0) mg/dl AST (13-39) U/L ALT (7-52) U/L Alkaline Phosphatase (34-104) U/L Troponin I High Sens 96.3 H* D (0-14) pg/ml Total Protein (6.0-8.3) gm/dl Albumin (3.4-5.0) gm/dl Globulin (2.5-4.0) gm/dl Albumin/Globulin Ratio (0.9-2) SARS-CoV-2, RNA, NAAT NEGATIVE (NEGATIVE) Blood Parasites ID Administered Medications Allopurinol (Allopurinol 100 Mg Tab) 100 mg PO QAM [facility] Stop: 08/11/22 08:59 Last Admin: 07/12/22 09:16 Dose: 100 mg Documented By: SD Apixaban (Apixaban 2.5 Mg Tab) 2.5 mg PO BID YVONNE Stop: 08/11/22 08:59 Last Admin: 07/12/22 09:15 Dose: 2.5 mg Documented By: SD Atorvastatin Calcium (Atorvastatin 40 Mg Tab) 80 mg PO QAM [facility] Stop: 08/11/22 08:59 Last Admin: 07/12/22 09:15 Dose: 80 mg Documented By: SD Calcitriol (Calcitriol 0.25 Mcg Capsule) 0.25 mcg PO QAM [facility] Stop: 08/11/22 08:59 Last Admin: 07/12/22 09:14 Dose: 0.25 mcg Documented By: SD Clopidogrel Bisulfate (Pom - Clopidogrel Bisulfate 75 Mg Tab) 75 mg PO QAM [facility] Stop: 08/11/22 08:59 Last Admin: 07/12/22 09:19 Dose: 75 mg Documented By: SD Dicyclomine HCl (Dicyclomine Hcl 10 Mg Cap) 10 mg PO TID PRN PRN Reason: Abdominal Discomfort Stop: 08/11/22 02:56 Last Admin: 07/12/22 09:15 Dose: 10 mg Documented By: SD Fish Oil ([place]-3 (Purified Fish Oil) 1 Gm Cap) 1 gm PO QAM [facility] Stop: 08/11/22 08:59 Last Admin: 07/12/22 09:15 Dose: 1 gm Documented By: SD Hydralazine HCl (Hydralazine Tab 50 Mg Tab) 50 mg PO TID YVONNE Stop: 08/11/22 08:59 Last Admin: 07/12/22 12:18 Dose: 50 mg Documented By: Admin: 07/12/22 09:15 Dose: 50 mg Documented By: SD Insulin Glargine (Lantus Per Unit Charge) 10 units SQ BID YVONNE Stop: 08/11/22 08:59 Last Admin: 07/12/22 09:15 Dose: 10 units Documented By: SD Co-signed By: CG Insulin Human Regular (Insulin Human Regular) 0 units SC ACHS [facility] Stop: 08/11/22 07:29 Last Admin: 07/12/22 12:07 Dose: 4 units Documented By: SD Co-signed By: HALIMA Admin: 07/12/22 09:15 Dose: 3 units Documented By: SD Co-signed By: HALIMA Isosorbide Mononitrate (Isosorbide Bradley Extended Rel 60 Mg Tabcr) 60 mg PO QAM YVONNE Stop: 08/11/22 08:59 Last Admin: 07/12/22 09:15 Dose: 60 mg Documented By: CA Metoprolol Tartrate (Metoprolol Tartrate 25 Mg Tab) 25 mg PO BID YVONNE Stop: 08/11/22 11:14 Last Admin: 07/12/22 12:16 Dose: 25 mg Documented By: SD Nifedipine (Nifedipine Extended Rel 30 Mg Tabcr) 60 mg PO QAM YVONNE Stop: 08/11/22 08:59 Last Admin: 07/12/22 09:15 Dose: 60 mg Documented By: SD Discontinued Medications Hydralazine HCl (Hydralazine Hcl 25 Mg Tab) 25 mg PO NOW STA Stop: 07/11/22 22:03 Last Admin: 07/11/22 22:24 Dose: 25 mg Documented By: AN Acetaminophen (Ofirmev) 1,000 mg in 100 mls @ 400 mls/hr IV NOW STA Stop: 07/11/22 22:16 Last Infusion: 07/11/22 22:45 Dose: 0 mls/hr Documented By: Admin: 07/11/22 22:24 Dose: 400 mls/hr Documented By: AN Magnesium Sulfate/Dextrose (Magnesium Sulfate / D5w) 1 gm in 100 mls @ 100 mls/hr IV NOW STA Stop: 07/11/22 23:09 Last Infusion: 07/12/22 00:55 Dose: 0 mls/hr Documented By: Admin: 07/11/22 22:25 Dose: 100 mls/hr Documented By: AN Metoprolol Succinate (Metoprolol Succ 25mg Ext Rel Tab) 25 mg PO QAM YVONNE Stop: 08/11/22 08:59 Last Admin: 07/12/22 09:15 Dose: 25 mg Documented By: SD Potassium Chloride (Potassium Chloride Crtab 20 Meq Tabcr) 20 meq PO NOW STA Stop: 07/12/22 08:58 Last Admin: 07/12/22 09:21 Dose: 20 meq Documented By: SD Potassium Chloride (Potassium Chloride Crtab 20 Meq Tabcr) 20 meq PO NOW STA Stop: 07/12/22 10:07 Last Admin: 07/12/22 11:12 Dose: 20 meq Documented By: CA Imaging Data Radiologist's Impression: Chest X-Ray 07/11/22 21:45 XR chest 1V portable CLINICAL HISTORY: Chest pain. COMPARISON STUDY: Chest radiograph December 25, 2021. FINDINGS: Note is made of a small curvilinear lucency under the right hemidiaph ragm. Cardiomegaly is noted. There is mild pulmonary edema. A small left pleural effusion is noted with left basilar opacity. There is no pneumothorax. IMPRESSION: 1. Small curvilinear lucency under the right hemidiaphragm. This favors a small amount of pneumoperitoneum. By report, the patient has a peritoneal dialysis catheter which could account for this finding. However, correlation with abdominal symptoms is recommended. If indicated, a CT of the abdomen and pelvis could be obtained. This finding will be called/faxed to the ordering provider at time of dictation. 2. Cardiomegaly with mild interstitial pulmonary edema. 3. Small left pleural effusion with left basilar opacity which reflects consolidation or atelectasis. Radiographic follow up is recommended. ACT 112: Negative or not required by law. Electronically signed by: Fransico Headley M.D. 07/12/2022 9:28 AM Discharge Plan Visit Data Chief Complaint: Chest Pain Stated Complaint: CHEST PAIN, SOB ED Provider: Adi Robert Discharge Problem: Atrial fibrillation with RVR, Chest pain, Elevated troponin, ESRD on peritoneal dialysis, Hypomagnesemia Patient Disposition: Admitted As Inpatient Discharge Instructions Interventions: ED Discharge Assessment Last Done: 07/12/22 03:10
[2022-07-12] MEDS ORDERED: GLUCAGON FOR INJ 1 MG VIAL SQ PRN (02:57)
[2022-07-12] MEDS ORDERED: GLUCOSE 10 TAB/TUBE PO PRN (02:57)
[2022-07-12] MEDS ORDERED: ACETAMINOPHEN 325 MG TAB PO PRN (02:57)
[2022-07-12] MEDS ORDERED: CARBOHYDRATES FOR HYPOGLYCEMIA PO PRN (02:57)
[2022-07-12] MEDS ORDERED: ONDANSETRON INJ 2 MG/ML 2 ML VIAL IV PRN (02:57)
[2022-07-12] MEDS ORDERED: POLYETHYLENE (MIRALAX) 17 GM PACK PO PRN (02:57)
[2022-07-12] MEDS ORDERED: GLUCOSE 40% GEL 15 GM TUBE PO PRN (02:57)
[2022-07-12] MEDS ORDERED: DICYCLOMINE HCL 10 MG CAP PO PRN (02:57)
[2022-07-12] MEDS ORDERED: DEXTROSE 50% 50 ML SYRINGE IV PRN (02:57)
[2022-07-12] MEDS ORDERED: PNEUMOCOCCAL POLYSACCHARIDES 25 MCG/0.5 ML VIAL/SYR IM ONE (03:48)
[2022-07-12 06:58] LABS: Basophils # (auto) 0.08 K/uL (0-0.2); Basophils % (auto) 0.7 %; Hematocrit (blood only) 29.8 % (34.1-44.9); Hemoglobin 9.9 g/dl (12.0-16.0); Immature Granulocytes # (auto) 0.12 K/uL (0.00-0.02); Immature Granulocytes % (auto) 1.1 %; Lymphocytes # (auto) 1.18 K/uL (1.2-3.4); Lymphocytes % (auto) 10.6 %; Mean Corpuscular Hemoglobin 30.2 pg (25.0-34.0); Mean Corpuscular Hgb Conc 33.2 g/dL (32.0-36.0); Mean Corpuscular Volume 90.9 fL (80.0-100.0); Mean Platelet Volume 11.5 fL (9.4-12.3); Monocytes # (auto) 1.29 K/uL (0.24-0.82); Monocytes % (auto) 11.6 %; Neutrophils # (auto) 7.48 K/uL (1.4-6.5); Platelet Count 264 K/uL (130-400); RDW Standard Deviation 46.5 fL (36.4-46.3); Red Blood Count 3.28 M/uL (3.93-5.22); White Blood Count 11.15 K/ul (4.8-10.8)
[2022-07-12] MEDS ORDERED: PHARMACY GLYCEMIC MGMT CONSULT PRN (06:59)
[2022-07-12 07:35] LABS: BUN Creatinine Ratio 7.7 (10-20); Creatinine Clr Calc Pharmacy 6.2 ml/min; Est GFR (Non-African American) 4.3 ml/min; Magnesium 1.8 mg/dl (1.7-2.4); Phosphorus 7.9 mg/dl (2.5-4.9); Potassium 2.8 mmol/L (3.5-5.1)
[2022-07-12 08:01] LABS: Troponin I High Sensitivity 79.5 pg/ml (0-14)
--- NOTE | 2022-07-12 08:01 | Hospitalist Progress Note ---
Date of Service July 12, 2022 Assessment & Plan (1) Atrial fibrillation with RVR: Plan: Ayana Mcnulty is a 72-year-old female with past medical history of CAD, ESRD on daily peritoneal dialysis, paroxysmal A. fib on Eliquis, hyperlipidemia, type 2 diabetes, gastric ulcer, who presented due dyspnea and chest tightness likely secondary to tachycardia, afib w/ RVR vs multifocal atrial tachycardia. Tachycardia, intermittent. 70s-130s Most likely chest pain is in the context of tachycardia. Considering afib w/ RVR vs multifocal atrial tachycardia. Will follow on telemetry Cardiology is consulted: recommends changing from metoprolol succinate 25 qam to tartrate 25mg BID Mild hstrop elevation, peaked in the 90s, does have end-stage renal disease on peritoneal dialysis. Continue Eliquis and metoprolol as above for presumed afib ESRD on daily peritoneal dialysis Missed 07/11/22 dialysis session Sees [facility] nephrology consult Follow BMP Hypokalemia 2.8, repleting w/ 20 meq PO KCl due to ESRD. Will f/u nephrology recs. CAD/hypertension Continue metoprolol, isosorbide mononitrate, atorvastatin, Plavix, furosemide (on hold) HFpEF Hold home PO lasix 80mg PO daily for now given the hypokalemia DM2 Hold home regimen Sliding scale with basal while admitted DVT prophylaxis: Anticoagulated on Eliquis Diet: Heart healthy, DM2, dialysis renal diet Dispo: PCU CODE STATUS: Full (2) Type 2 diabetes mellitus: (3) ESRD needing dialysis: (4) Hyperlipidemia: (5) CAD (coronary artery disease): (6) Hypertension: (7) Chronic heart failure with preserved ejection fraction (HFpEF): Admission and Anticipated Discharge Date Admission Date: July 12, 2022 Supervising Physician Co-Signing Physician Notes I personally examined the patient and verified all andrews points of history and exam, discussed case, and agree with decision making with Dr Garcia. Feeling better. Discussed with cardiology. Input greatly appreciated. viatls noted nad heent nc at mmm breathing unlabored no accessory muscle use good effort. Still tachycardic on monitor. Tach arrhythmiabeta-blockade. Rate control. Symptoms are improving. Otherwise as above. Subjective Currently, symptoms are milder than at admission. Still has some chest tightness. No dyspnea at the moment. Presented for a few days of dyspnea and palpitations. Review of Systems Review of Systems: All systems reviewed & are unremarkable except as noted in HPI & below Physical Exam Physical Exam: General: Grossly A&O. NAD. Cooperative. HEENT: Atraumatic, normocephalic. EOMI Pulm: CTAB. -wheezes, -rales, -rhonchi. Diminished at bases. No respiratory distress. Cardiac: IIR 80s. Loud blowing systolic murmur loudest at aortic retion.. BLE ankles slightly puffy appearance, no pitting. R ankle slightly warmer to touch. Abdominal: Nontender, nondistended, soft. Integ: Warm, dry, intact. Results & Data Results & Data ([facility]) Vital Signs (Past 12 Hours) Vital Signs Temp Pulse Pulse Resp BP BP Pulse Ox 07/12/22 02:57 07/12/22 04:39 36.7 C 64 18 145/78 H 97 07/12/22 02:47 36.6 C 98 H 17 129/93 94 07/12/22 03:11 103 H 07/12/22 00:00 99 H 26 H 110/66 95 07/11/22 22:00 116 H 20 157/67 H 99 07/11/22 21:31 94 07/11/22 21:03 95 07/11/22 21:02 95 07/11/22 21:02 117 H 20 181/95 H 95 07/11/22 20:15 36.6 C 108 H 22 148/77 H 90 Pulse Ox O2 Del Method O2 Del Method O2 Flow Rate O2 Flow Rate 07/12/22 02:57 94 Nasal Cannula 2 07/12/22 04:39 07/12/22 02:47 Nasal Cannula 2 07/12/22 03:11 07/12/22 00:00 Nasal Cannula 2 07/11/22 22:00 Nasal Cannula 2 07/11/22 21:31 Room Air, Nasal Cannula 07/11/22 21:03 Room Air 07/11/22 21:02 Room Air 07/11/22 21:02 Room Air 07/11/22 20:15 Room Air Resident Activity Tracking Resident Involvement: Resident Care Provided Care Provided: Adult Hospital Medicine (1) CAD (coronary artery disease) Associated angina: without angina Coronary Disease-Associated Artery/Lesion type: [place] artery [place] vs. transplanted heart: [place] heart Qualified Code(s): I25.10 - Atherosclerotic heart disease of [place] coronary artery without angina pectoris (2) Hyperlipidemia Hyperlipidemia type: unspecified Qualified Code(s): E78.5 - Hyperlipidemia, unspecified (3) Hypertension Hypertension type: essential hypertension Qualified Code(s): I10 - Essential (primary) hypertension
[2022-07-12] MEDS ORDERED: POTASSIUM CHLORIDE CRTAB 20 MEQ TABCR PO STA ×2 (08:57→10:06)
[2022-07-12] MEDS ORDERED: METOPROLOL SUCC 25MG EXT REL TAB PO SCH (09:00)
[2022-07-12] MEDS ORDERED: FUROSEMIDE 80 MG TAB PO SCH (09:00)
[2022-07-12] MEDS: CALCITRIOL 0.25 MCG CAPSULE PO SCH (09:14)
[2022-07-12] MEDS: LANTUS PER UNIT CHARGE SQ SCH ×2 (09:15→20:14)
[2022-07-12] MEDS: APIXABAN 2.5 MG TAB PO SCH ×2 (09:15→20:53)
[2022-07-12] MEDS: OMEGA-3 (PURIFIED FISH OIL) 1 GM CAP PO SCH (09:15)
[2022-07-12] MEDS: INSULIN HUMAN REGULAR SC SCH ×4 (09:15→20:10)
[2022-07-12] MEDS: ISOSORBIDE MONO EXTENDED REL 60 MG TABCR PO SCH (09:15)
[2022-07-12] MEDS: ATORVASTATIN 40 MG TAB PO SCH (09:15)
[2022-07-12] MEDS: hydrALAZINE TAB 50 MG TAB PO SCH ×3 (09:15→20:08)
[2022-07-12] MEDS: NIFEdipine EXTENDED REL 30 MG TABCR PO SCH (09:15)
[2022-07-12] MEDS: allopurinoL 100 MG TAB PO SCH (09:16)
[2022-07-12] MEDS: CLOPIDOGREL BISULFATE 75 MG PO SCH (09:19)
--- NOTE | 2022-07-12 09:29 | XRay Report ---
XR chest 1V portable CLINICAL HISTORY: Chest pain. COMPARISON STUDY: Chest radiograph December 25, 2021. FINDINGS: Note is made of a small curvilinear lucency under the right hemidiaphragm. Cardiomegaly is noted. There is mild pulmonary edema. A small left pleural effusion is noted with left basilar opacit y. There is no pneumothorax. IMPRESSION: 1. Small curvilinear lucency under the right hemidiaphragm. This favors a small amount of pneumoperit oneum. By report, the patient has a peritoneal dialysis catheter which could account for this findin g. However, correlation with abdominal symptoms is recommended. If indicated, a CT of the abdomen and pelvis could be obtained. This finding will be called/faxed to the ordering provider at time of dict ation. 2. Cardiomegaly with mild interstitial pulmonary edema. 3. Small left pleural effusion with left basilar opacity which reflects consolidation or atelectasis. Radiographic follow up is recommended. ACT 112: Negative or not required by law. Electronically signed by: Fransico Headley M.D. 07/12/2022 9:28 AM
--- NOTE | 2022-07-12 11:04 | Cardiology Consultation ---
Date of Consultation July 12, 2022 Assessment & Plan (1) Multifocal atrial tachycardia: (2) Paroxysmal atrial fibrillation: (3) Chest pain: (4) Pericardial effusion: (5) CAD (coronary artery disease): (6) H/O heart artery stent: (7) Hyperlipidemia: (8) Hypertension: (9) Elevated troponin: Plan ASSESSMENT/PLAN: 1. Chest pain: Chest pain is atypical, occurring at rest. Unclear if the chest pain is related to the elevated heart rates as she seemed to feel better when her heart rate was better controlled overnight. Symptoms could represent pericarditis as well. Will first attempt to better control heart rate and reassess chest discomfort. If continues to have issues, could consider pericarditis therapy. 2. Elevated troponin: Presentation is not consistent with acute coronary syndrome. Very mild elevated troponins likely due to demand ischemia in the setting of end-stage renal disease, tachycardia, with known CAD. Ischemic evaluation not necessary at this time. 3. Possible multifocal atrial tachycardia: She has multiple P wave morphologies and rapid atrial runs. Cannot exclude short runs of atrial fibrillation but ECG demonstrates such runs although much shorter with multiple P wave morphologies, suggesting possible multifocal atrial tachycardia. Recommend titrating beta- fartun. She does not recall ever trying a higher dose of metoprolol succinate 25 mg daily. We will replace metoprolol succinate with metoprolol tartrate 25 mg twice daily starting this morning. Can further titrate as necessary. Monitor for bradycardia if remains in sinus rhythm. We discussed the diagnosis. If necessary, could consider antiarrhythmic therapy in the future. 4. Paroxysmal atrial fibrillation: She carries a diagnosis of A. fib. She is on anticoagulation therapy for stroke risk reduction. Could consider Eliquis 5 mg twice daily, although unclear data with peritoneal dialysis and Eliquis. She had been on 5 mg twice daily in the past according to records. Continue rate control strategy. 5. CAD s/p PCI (RCA and Cx): Atypical chest pain as noted above. On clopidogrel as her antiplatelet therapy. From a cardiac standpoint, while on Eliquis, aspirin 81 mg daily would be sufficient. Continue beta-fartun. She had been on high-intensity statin therapy in the past and would recommend resuming. Will start atorvastatin 40 mg daily. 6. ESRD on PD: Follows with Nephrology. 7. Renal artery stenosis s/p stent: Follows with Nephrology. 8. Pericardial effusion: Chronic pericardial effusion. Does not appear to have hemodynamic significance at this time. 9. Hypertension: Blood pressure normotensive to mildly hypertensive. No c hanges made at this time other than adjusting beta-fartun as above. 10. Disposition: Patient care discussed with Dr. Flores of the primary hospitalist service. Dr. Ortiz will be resuming her care tomorrow. Follows with Dr. Knott as an outpatient. Thank you for allowing me to participate in the care of your patient. Please call for any other questions or concerns. Sincerely, Julian Del Cid M.D. History of Present Illness Reason for Consultation: "Chest pain, afib with RVR" Requesting Physician: Bipin Rodríguez Attending Physician: Jesus Manuel Flores DO History of Present Illness Mrs. Mcnulty is a 72-year-old female with a history significant for CAD s/p PCI of circumflex (09/20/2010, 3 x 23 mm Xience) and RCA (10/12/2019 Promus 2.5 x 24 mm), renal artery stenosis s/p left renal artery stent (09/05/2014), hypertension, LVH, type 2 diabetes, dyslipidemia, ESRD(Dr. Sandoval) on PD, right upper extremity AV fistula which has thrombosed, and paroxysmal atrial fibrillation. Her primary investment accounting clerk is Dr. Knott locally and Dr. Perez at [place]. She also follows with Natalie Pompa of the heart failure program. She has had the following studies / procedures: 1. Cardiac catheterization 09/20/2010 [facility]: Circumflex stent. 2. Cardiac catheterization August 2014 [place]: Patent circumflex stent. 3. Renal angiography August 2014 [facility]: Severe left renal artery stenosis s/p stent. 4. Cardiac catheterization 10/12/2019 [facility]: mid RCA PCI 2.5 x 24 mm Promus DAVID. 5. Echo 11/07/2019 [facility]: Normal LV size and systolic function. EF 65-70%. Severe concentric LVH. Mild aortic stenosis. Mild MR. RVSP 26. 6. Echo 05/27/2021: Hyperdynamic LV systolic function. EF > 70%. Severe concentric LVH. MAC. Mild MR. Small pericardial effusion. 7. Echo 07/12/2020 to [facility]: Normal LV size, systolic function, wall motion. EF 60 to 65%. Severe concentric LVH. Moderate left atrial dilation. Moderate AAS. Small to moderate pericardial effusion without echocardiographic evidence of tamponade physiology. She was admitted on 07/12/2022 after presenting with chest discomfort intermittently for 2 days. She describes the chest discomfort as a substernal chest discomfort that occurs intermittently and at times can radiate to the neck. She feels as though her heart rate is elevated, noting symptoms in her head. At home she noted that her heart rate was ranging 120s to 130s. She also notes palpitations described as a racing sensation that occurs with any exertion. She has shortness of breath at any time, including orthopnea the past few days. Upon questioning, her chest pain appears to have a pleuritic component with worsening while laying supine. She denies exertional chest pain. She typically performs peritoneal dialysis at night. She admits that she missed PD the night prior to presentation. She still has urine output but less than her usual amount in the past before dialysis. She has chronic lower extremity edema which she believes is stable. She tries to maintain a low-sodium diet. She reports kidney transplantation evaluation later this month. While she was evaluated this morning, she denied any active chest pain. She was not short of breath during the examination. She has not had any melena, hematochezia, hematuria, or other bleeding. She denies any recent fevers. She does have mild nausea at times but no vomiting. She denies diarrhea. Review of systems:As above. Review of systems otherwise negative/unremarkable. Family history: Father had CAD. Social history:She denies tobacco or alcohol abuse. She is a . She has 2 sons (Jose). Her grandson, Bo, lives with her. She was unaccompanied in her hospital room. Allergies Allergy/AdvReac Type Severity Reaction Status Date / Time heparin Allergy Intermediate Hives Verified 07/11/22 23:51 insulin aspart Allergy Intermediate Hives Verified 07/11/22 23:51 [From Novolog U-100 Insulin aspart] meperidine AdvReac Intermediate hallucinate Verified 07/11/22 23:51 s lisinopril AdvReac Mild COUGHING Verified 07/11/22 23:51 Home Medications Medication Instructions Recorded Confirmed Type [id number] oil-vit D3 300 1 cap PO QAM 05/26/21 07/11/22 History mg-1,000 mg-1,000 unit capsule (Fish Oil-Vit D3) clopidogrel 75 mg tablet (Plavix) 75 mg PO QAM #90 tabs 09/15/21 07/11/22 Rx isosorbide mononitrate 60 mg 60 mg PO QAM #90 tabs 10/24/21 07/11/22 Rx tablet,extended release 24 hr dicyclomine 10 mg capsule 10 mg PO TID PRN Abdominal 10/31/21 07/11/22 Rx Discomfort #90 caps calcitriol 0.25 mcg capsule 0.25 mcg PO QAM 11/25/21 07/11/22 History metoprolol succinate 25 mg 25 mg PO QAM 11/25/21 07/11/22 History tablet,extended release 24 hr nifedipine 60 mg tablet,extended 60 mg PO QAM 11/25/21 07/11/22 History release 24 hr (Procardia XL) apixaban 2.5 mg tablet (Eliquis) 2.5 mg PO BID #60 tabs 12/03/21 07/11/22 Rx atorvastatin 40 mg tablet (Lipitor) 80 mg PO QAM 04/09/22 07/11/22 History furosemide 80 mg tablet 80 mg PO QAM 04/09/22 07/11/22 History insulin glargine 100 unit/mL (3 10 unit subcut BID 04/09/22 07/11/22 History mL) subcutaneous pen (Lantus Solostar U-100 Insulin) allopurinol 100 mg tablet 100 mg PO QAM #90 tabs 05/01/22 07/11/22 Rx (Zyloprim) OneTouch Ultra Test (blood sugar #300 ea 06/18/22 07/11/22 Rx diagnostic) hydralazine 50 mg tablet 50 mg PO TID 07/11/22 07/11/22 History insulin lispro 100 unit/mL 10 unit subcut QAM 07/11/22 07/11/22 History subcutaneous pen Patient History Medical History Abdominal pain Ongoing -- following with [facility]. Anemia due to chronic kidney disease Atrial fibrillation Occurred during hospital stay in [facility] ~2020. Treated with medication at the time. No problems since. Follows with Dr. Knott CAD (coronary artery disease) S/p stent to LCx 2009 and RCA in 2019 Carotid artery disease Carotid duplex 08/19/2018 = 5059% stenosis on the right internal carotid artery. No significant stenosis in the left internal carotid artery. Chronic back pain Significant x 2 years Has seen pain management - s/p epidural injections- only lasted 6 weeks for pain relief Chronic heart failure with preserved ejection fraction (HFpEF) Deep vein thrombosis (~05/2021) Unknown cause Degenerative disc disease Diabetes mellitus, type 2 IDDM Glucose stable and controlled per patient ESRD needing dialysis Started in Nov 2021 Hemodialysis patient Diaylsis in [place]: Saturday, Saturday, Saturday through History of stent insertion of renal artery 2013 Hyperlipidemia Hypertension Lymphedema Obesity Osteoarthritis Renal artery stenosis S/p renal stent 2013 Status post myocardial infarction Subclavian artery stenosis Per 08/19/18 carotid duplex- Normal flow in the innominate and right subclavian arteries. >50% stenosis of the proximal left subclavian artery with retrograde flow in the left vertebral artery and >40 mmHg difference in brachial systolic pressures (right >left). Surgical History H/O heart artery stent x2, last stent placed ~2016. History of cardiac cath x2, most recent done about 5 years ago in [place]. History of colonoscopy History of esophagogastroduodenoscopy (EGD) S/P arteriovenous (AV) fistula creation right (Dr Hayes) 12/2021 S/P epidural steroid injection Family History Other Hypertension No family history of adverse response to anesthesia Social History Smoking Status: Never smoker Second Hand Exposure: Yes (hx); Hx Alcohol Use: No Hx Substance Use: No Preferred Language: Yoruba Communication Ability: Effective Visual Impairment: No Limitations Assembler Tractor Required: No Beliefs That Will Affect Care: None marital status: Single Current Living Situation: Family Current Living Situation Comment: Grandson How many Children do You have: 2 Feels Safe at Home: Yes Safety Concerns: Feels Safe At This Time Assistive Devices: Glasses Physical Exam Physical Exam: Gen.: No acute distress. Alert and oriented. HEENT: Anicteric sclera. Neck: Thick neck. Mild JVD. Bilateral carotid bruit vs radiation of cardiac murmur. Normal carotid upstrokes bilaterally. Cardiac: PMI was nonpalpable. No ventricular heave. Regular with episodic irregular tachycardia. Normal S1-S2. 2/6 systolic murmur. No rubs or gallops. Pulmonary: Clear to auscultation bilaterally without wheezes, rales, or rhonchi. Abdomen: Soft, nontender, nondistended, with hyperactive bowel sounds. No bruits noted. Extremities: Right upper extremity AV fistula with palpable thrill and audibe bruit. 2+ left radial pulse. 2+ posterior tibialis pulses bilaterally. Trace bilateral lower extremity edema. No cyanosis. Psychiatric: Affect appears appropriate. Results & Data ([facility]) Vital Signs (Past 12 Hours) Vital Signs Temp Pulse Pulse Resp BP Pulse Ox Pulse Ox 07/12/22 08:00 37.1 C 91 H 16 155/89 H 95 07/12/22 02:57 94 07/12/22 04:39 36.7 C 64 18 145/78 H 97 07/12/22 02:47 36.6 C 98 H 17 129/93 94 07/12/22 03:11 103 H 07/12/22 00:00 99 H 26 H 110/66 95 O2 Del Method O2 Del Method O2 Flow Rate O2 Flow Rate 07/12/22 08:00 Nasal Cannula 2 07/12/22 02:57 Nasal Cannula 2 07/12/22 04:39 07/12/22 02:47 Nasal Cannula 2 07/12/22 03:11 07/12/22 00:00 Nasal Cannula 2 Intake & Output 07/10/22 07/11/22 07/12/22 07/13/22 06:59 06:59 06:59 06:59 Intake Total 200 / 200 Balance 200 / 200 Weight 183 lb 9.615 oz Laboratory Results Laboratory Results - last 24 hr 07/11/22 07/11/22 07/11/22 20:53 20:53 20:53 WBC Cancelled RBC Cancelled Hgb Cancelled Hct Cancelled MCV Cancelled MCH Cancelled MCHC Cancelled RDW Std Deviation Cancelled RDW Coeff of Ekaterina Cancelled Plt Count Cancelled MPV Cancelled Immature Gran % (Auto) Cancelled Neut % (Auto) Cancelled Lymph % (Auto) Cancelled Ida % (Auto) Cancelled Eos % (Auto) Cancelled Baso % (Auto) Cancelled Neut # (Auto) Cancelled Lymph # (Auto) Cancelled Ida # (Auto) Cancelled Eos # (Auto) Cancelled Baso # (Auto) Cancelled Immature Gran # (Auto) Cancelled Absolute Nucleated RBC Cancelled Nucleated RBC % (auto) Cancelled Neutrophils % (Manual) Cancelled Band Neutrophils % Cancelled Lymphocytes % (Manual) Cancelled Prolymphocyte % Cancelled Reactive Lymphs % (Man) Cancelled Monocytes % (Manual) Cancelled Eosinophils % (Manual) Cancelled Basophils % (Manual) Cancelled Metamyelocytes % (Man) Cancelled Myelocytes % (Man) Cancelled Promyelocytes % (Man) Cancelled Blast Cells % (Manual) Cancelled Plasma Cell % (Manual) Cancelled Other Cells % Cancelled Nucleated RBC % Cancelled Neutrophils # (Manual) Cancelled Band Neutrophils # Cancelled Total Absolute Neuts Cancelled Lymphocytes # (Manual) Cancelled Prolymphocyte # Cancelled Reactive Lymphs # Cancelled Total Abs Lymphocytes Cancelled Monocytes # (Manual) Cancelled Eosinophils # (Manual) Cancelled Basophils # (Manual) Cancelled Metamyelocytes # (Man) Cancelled Myelocytes # (Manual) Cancelled Promyelocytes # (Man) Cancelled Blast Cells # (Man) Cancelled Plasma Cell # (Manual) Cancelled Other Cells # Cancelled Nucleated RBCs # (Man) Cancelled Hypersegmented Neuts Cancelled Hyposegmented Neuts Cancelled Hypogranular Neuts Cancelled Large Granular Lymphs Cancelled # Lrg Granular Lymphs Cancelled Hairy Cells Cancelled Smudge Cells Cancelled Toxic Granulation Cancelled Toxic Vacuolation Cancelled Dohle Bodies Cancelled [place] Rods Cancelled Platelet Estimate Cancelled Hypogranular Platelets Cancelled Clumped Platelets Cancelled Giant Platelets Cancelled Platelet Satelliting Cancelled RBC Morphology Cancelled Polychromasia Cancelled Hypochromasia Cancelled Poikilocytosis Cancelled Basophilic Stippling Cancelled Anisocytosis Cancelled Microcytosis Cancelled Macrocytosis Cancelled Spherocytes Cancelled Pappenheimer Bodies Cancelled Sickle Cells Cancelled Target Cells Cancelled Tear Drop Cells Cancelled Ovalocytes Cancelled Stomatocytes Cancelled Albright-Crowder Bodies Cancelled Echinocytes Cancelled Acanthocytes (Spur) Cancelled Rouleaux Cancelled RBC Agglutinates Cancelled Schistocytes Cancelled Sezary Cell Cancelled PT 10.9 INR 1.0 APTT 20.9 L PTT Ratio 0.8 Sodium 136 Potassium 3.2 L Chloride 93 L Carbon Dioxide 20 L Anion Gap 23 H BUN 62 H Creatinine 7.87 H* Est Cr Clr Drug Dosing Not Reportable Est GFR ( Amer) 5.4 Est GFR (Non-Af Amer) 4.6 BUN/Creatinine Ratio 7.9 L Glucose 141 H POC Glucose Calcium 8.1 L Phosphorus 6.5 H Magnesium 1.4 L Total Bilirubin 0.6 AST 16 ALT 11 Alkaline Phosphatase 125 H Troponin I High Sens 78.8 H* Total Protein 7.1 Albumin 2.9 L Globulin 4.2 H Albumin/Globulin Ratio 0.7 L SARS-CoV-2, RNA, NAAT Blood Parasites ID Cancelled 07/11/22 07/11/22 07/11/22 21:36 22:50 23:17 WBC 13.72 H RBC 3.37 L Hgb 10.0 L Hct 30.6 L MCV 90.8 MCH 29.7 MCHC 32.7 RDW Std Deviation 46.7 H RDW Coeff of Ekaterina 14.2 Plt Count 267 MPV 11.7 Immature Gran % (Auto) 1.1 Neut % (Auto) 70.2 Lymph % (Auto) 9.5 Ida % (Auto) 10.8 Eos % (Auto) 7.9 Baso % (Auto) 0.5 Neut # (Auto) 9.63 H Lymph # (Auto) 1.31 Ida # (Auto) 1.48 H Eos # (Auto) 1.08 H Baso # (Auto) 0.07 Immature Gran # (Auto) 0.15 H Absolute Nucleated RBC Nucleated RBC % (auto) Neutrophils % (Manual) Band Neutrophils % Lymphocytes % (Manual) Prolymphocyte % Reactive Lymphs % (Man) Monocytes % (Manual) Eosinophils % (Manual) Basophils % (Manual) Metamyelocytes % (Man) Myelocytes % (Man) Promyelocytes % (Man) Blast Cells % (Manual) Plasma Cell % (Manual) Other Cells % Nucleated RBC % Neutrophils # (Manual) Band Neutrophils # Total Absolute Neuts Lymphocytes # (Manual) Prolymphocyte # Reactive Lymphs # Total Abs Lymphocytes Monocytes # (Manual) Eosinophils # (Manual) Basophils # (Manual) Metamyelocytes # (Man) Myelocytes # (Manual) Promyelocytes # (Man) Blast Cells # (Man) Plasma Cell # (Manual) Other Cells # Nucleated RBCs # (Man) Hypersegmented Neuts Hyposegmented Neuts Hypogranular Neuts Large Granular Lymphs # Lrg Granular Lymphs Hairy Cells Smudge Cells Toxic Granulation Toxic Vacuolation Dohle Bodies [place] Rods Platelet Estimate Hypogranular Platelets Clumped Platelets Giant Platelets Platelet Satelliting RBC Morphology Polychromasia Hypochromasia Poikilocytosis Basophilic Stippling Anisocytosis Microcytosis Macrocytosis Spherocytes Pappenheimer Bodies Sickle Cells Target Cells Tear Drop Cells Ovalocytes Stomatocytes Albright-Crowder Bodies Echinocytes Acanthocytes (Spur) Rouleaux RBC Agglutinates Schistocytes Sezary Cell PT INR APTT PTT Ratio Sodium Potassium Chloride Carbon Dioxide Anion Gap BUN Creatinine Est Cr Clr Drug Dosing Est GFR ( Amer) Est GFR (Non-Af Amer) BUN/Creatinine Ratio Glucose POC Glucose Calcium Phosphorus Magnesium Total Bilirubin AST ALT Alkaline Phosphatase Troponin I High Sens 96.3 H* D Total Protein Albumin Globulin Albumin/Globulin Ratio SARS-CoV-2, RNA, NAAT NEGATIVE Blood Parasites ID 07/12/22 07/12/22 07/12/22 03:08 06:40 06:40 WBC 11.15 H RBC 3.28 L Hgb 9.9 L Hct 29.8 L MCV 90.9 MCH 30.2 MCHC 33.2 RDW Std Deviation 46.5 H RDW Coeff of Ekaterina 14.0 Plt Count 264 MPV 11.5 Immature Gran % (Auto) 1.1 Neut % (Auto) 67.0 Lymph % (Auto) 10.6 Ida % (Auto) 11.6 Eos % (Auto) 9.0 Baso % (Auto) 0.7 Neut # (Auto) 7.48 H Lymph # (Auto) 1.18 L Ida # (Auto) 1.29 H Eos # (Auto) 1.00 H Baso # (Auto) 0.08 Immature Gran # (Auto) 0.12 H Absolute Nucleated RBC Nucleated RBC % (auto) Neutrophils % (Manual) Band Neutrophils % Lymphocytes % (Manual) Prolymphocyte % Reactive Lymphs % (Man) Monocytes % (Manual) Eosinophils % (Manual) Basophils % (Manual) Metamyelocytes % (Man) Myelocytes % (Man) Promyelocytes % (Man) Blast Cells % (Manual) Plasma Cell % (Manual) Other Cells % Nucleated RBC % Neutrophils # (Manual) Band Neutrophils # Total Absolute Neuts Lymphocytes # (Manual) Prolymphocyte # Reactive Lymphs # Total Abs Lymphocytes Monocytes # (Manual) Eosinophils # (Manual) Basophils # (Manual) Metamyelocytes # (Man) Myelocytes # (Manual) Promyelocytes # (Man) Blast Cells # (Man) Plasma Cell # (Manual) Other Cells # Nucleated RBCs # (Man) Hypersegmented Neuts Hyposegmented Neuts Hypogranular Neuts Large Granular Lymphs # Lrg Granular Lymphs Hairy Cells Smudge Cells Toxic Granulation Toxic Vacuolation Dohle Bodies [place] Rods Platelet Estimate Hypogranular Platelets Clumped Platelets Giant Platelets Platelet Satelliting RBC Morphology Polychromasia Hypochromasia Poikilocytosis Basophilic Stippling Anisocytosis Microcytosis Macrocytosis Spherocytes Pappenheimer Bodies Sickle Cells Target Cells Tear Drop Cells Ovalocytes Stomatocytes Albright-Crowder Bodies Echinocytes Acanthocytes (Spur) Rouleaux RBC Agglutinates Schistocytes Sezary Cell PT INR APTT PTT Ratio Sodium 134 L Potassium 2.8 L Chloride 95 L Carbon Dioxide 22 Anion Gap 17 H BUN 64 H Creatinine 8.32 H* D Est Cr Clr Drug Dosing 6.2 Est GFR ( Amer) 5.0 Est GFR (Non-Af Amer) 4.3 BUN/Creatinine Ratio 7.7 L Glucose 127 H POC Glucose 142 H Calcium 8.0 L Phosphorus 7.9 H Magnesium 1.8 Total Bilirubin AST ALT Alkaline Phosphatase Troponin I High Sens 79.5 H* D Total Protein Albumin Globulin Albumin/Globulin Ratio SARS-CoV-2, RNA, NAAT Blood Parasites ID 07/12/22 07/12/22 07/12/22 07:44 11:40 11:42 WBC RBC Hgb Hct MCV MCH MCHC RDW Std Deviation RDW Coeff of Ekaterina Plt Count MPV Immature Gran % (Auto) Neut % (Auto) Lymph % (Auto) Ida % (Auto) Eos % (Auto) Baso % (Auto) Neut # (Auto) Lymph # (Auto) Ida # (Auto) Eos # (Auto) Baso # (Auto) Immature Gran # (Auto) Absolute Nucleated RBC Nucleated RBC % (auto) Neutrophils % (Manual) Band Neutrophils % Lymphocytes % (Manual) Prolymphocyte % Reactive Lymphs % (Man) Monocytes % (Manual) Eosinophils % (Manual) Basophils % (Manual) Metamyelocytes % (Man) Myelocytes % (Man) Promyelocytes % (Man) Blast Cells % (Manual) Plasma Cell % (Manual) Other Cells % Nucleated RBC % Neutrophils # (Manual) Band Neutrophils # Total Absolute Neuts Lymphocytes # (Manual) Prolymphocyte # Reactive Lymphs # Total Abs Lymphocytes Monocytes # (Manual) Eosinophils # (Manual) Basophils # (Manual) Metamyelocytes # (Man) Myelocytes # (Manual) Promyelocytes # (Man) Blast Cells # (Man) Plasma Cell # (Manual) Other Cells # Nucleated RBCs # (Man) Hypersegmented Neuts Hyposegmented Neuts Hypogranular Neuts Large Granular Lymphs # Lrg Granular Lymphs Hairy Cells Smudge Cells Toxic Granulation Toxic Vacuolation Dohle Bodies [place] Rods Platelet Estimate Hypogranular Platelets Clumped Platelets Giant Platelets Platelet Satelliting RBC Morphology Polychromasia Hypochromasia Poikilocytosis Basophilic Stippling Anisocytosis Microcytosis Macrocytosis Spherocytes Pappenheimer Bodies Sickle Cells Target Cells Tear Drop Cells Ovalocytes Stomatocytes Albright-Crowder Bodies Echinocytes Acanthocytes (Spur) Rouleaux RBC Agglutinates Schistocytes Sezary Cell PT INR APTT PTT Ratio Sodium Potassium Chloride Carbon Dioxide Anion Gap BUN Creatinine Est Cr Clr Drug Dosing Est GFR ( Amer) Est GFR (Non-Af Amer) BUN/Creatinine Ratio Glucose POC Glucose 155 H 194 H Calcium Phosphorus Magnesium Total Bilirubin AST ALT Alkaline Phosphatase Troponin I High Sens 65.4 H* D Total Protein Albumin Globulin Albumin/Globulin Ratio SARS-CoV-2, RNA, NAAT Blood Parasites ID 07/12/22 11:42 WBC RBC Hgb Hct MCV MCH MCHC RDW Std Deviation RDW Coeff of Ekaterina Plt Count MPV Immature Gran % (Auto) Neut % (Auto) Lymph % (Auto) Ida % (Auto) Eos % (Auto) Baso % (Auto) Neut # (Auto) Lymph # (Auto) Ida # (Auto) Eos # (Auto) Baso # (Auto) Immature Gran # (Auto) Absolute Nucleated RBC Nucleated RBC % (auto) Neutrophils % (Manual) Band Neutrophils % Lymphocytes % (Manual) Prolymphocyte % Reactive Lymphs % (Man) Monocytes % (Manual) Eosinophils % (Manual) Basophils % (Manual) Metamyelocytes % (Man) Myelocytes % (Man) Promyelocytes % (Man) Blast Cells % (Manual) Plasma Cell % (Manual) Other Cells % Nucleated RBC % Neutrophils # (Manual) Band Neutrophils # Total Absolute Neuts Lymphocytes # (Manual) Prolymphocyte # Reactive Lymphs # Total Abs Lymphocytes Monocytes # (Manual) Eosinophils # (Manual) Basophils # (Manual) Metamyelocytes # (Man) Myelocytes # (Manual) Promyelocytes # (Man) Blast Cells # (Man) Plasma Cell # (Manual) Other Cells # Nucleated RBCs # (Man) Hypersegmented Neuts Hyposegmented Neuts Hypogranular Neuts Large Granular Lymphs # Lrg Granular Lymphs Hairy Cells Smudge Cells Toxic Granulation Toxic Vacuolation Dohle Bodies [place] Rods Platelet Estimate Hypogranular Platelets Clumped Platelets Giant Platelets Platelet Satelliting RBC Morphology Polychromasia Hypochromasia Poikilocytosis Basophilic Stippling Anisocytosis Microcytosis Macrocytosis Spherocytes Pappenheimer Bodies Sickle Cells Target Cells Tear Drop Cells Ovalocytes Stomatocytes Albright-Crowder Bodies Echinocytes Acanthocytes (Spur) Rouleaux RBC Agglutinates Schistocytes Sezary Cell PT INR APTT PTT Ratio Sodium 133 L Potassium 3.1 L Chloride 94 L Carbon Dioxide 20 L Anion Gap 19 H BUN 65 H Creatinine 8.40 H* Est Cr Clr Drug Dosing 6.2 Est GFR ( Amer) 5.0 Est GFR (Non-Af Amer) 4.3 BUN/Creatinine Ratio 7.7 L Glucose 183 H POC Glucose Calcium 8.1 L Phosphorus Magnesium Total Bilirubin AST ALT Alkaline Phosphatase Troponin I High Sens Total Protein Albumin Globulin Albumin/Globulin Ratio SARS-CoV-2, RNA, NAAT Blood Parasites ID Diagnostic Findings Telemetry personally reviewed: There are periods of sinus, with PACs. P wave morphologies appear to differ, with at least 3 separate morphologies at times. She also has short supraventricular runs that at times appear irregular. Possible multifocal atrial tachycardia versus atrial fibrillation or other atrial runs. No ventricular arrhythmia noted. ECGs personally reviewed: ECG 07/11/2022 at 2026: Multifocal atrial tachycardia 123 bpm. LVH with repolarization abnormality. ECG 07/12/2022 at 3:49 AM: Sinus rhythm with frequent PACs versus wandering atrial pacemaker at 80 bpm. LVH with repolarization abnormality. Echo reviewed as noted above in HPI. Chest x-ray 07/11/2022: Mild interstitial pulmonary edema per radiology. Small left pleural effusion with left basilar opacity which reflects consolidation or atelectasis per radiology. Chart reviewed. Medications Administered Current Inpatient Medications Acetaminophen (Acetaminophen 325 Mg Tab) 650 mg PO Q4H PRN PRN Reason: Pain or Fever Stop: 08/11/22 02:56 Allopurinol (Allopurinol 100 Mg Tab) 100 mg PO QAM YVONNE Stop: 08/11/22 08:59 Last Admin: 07/12/22 09:16 Dose: 100 mg Apixaban (Apixaban 2.5 Mg Tab) 2.5 mg PO BID YVONNE Stop: 08/11/22 08:59 Last Admin: 07/12/22 09:15 Dose: 2.5 mg Atorvastatin Calcium ([facility]vastatin 40 Mg Tab) [facility] [place]: 08/11/22 08:59 Last Admin: 07/12/22 09:15 Dose: 80 mg Calcitriol (Calcitriol 0.25 Mcg Capsule) 0.25 mcg [facility] [place]: 08/11/22 08:59 Last Admin: 07/12/22 09:14 Dose: 0.25 mcg Clopidogrel Bisulfate (Pom - Clopidogrel Bisulfate 75 Mg Tab) [facility] [place]: 08/11/22 08:59 Last Admin: 07/12/22 09:19 Dose: 75 mg Dextrose (Dextrose 50% 50 Ml Syringe) 25 - 50 ml IV UD PRN; Protocol PRN Reason: Hypoglycemia Protocol Stop: 08/11/22 02:56 Dicyclomine HCl (Dicyclomine Hcl 10 Mg Cap) 10 mg PO TID PRN PRN Reason: Abdominal Discomfort Stop: 08/11/22 02:56 Last Admin: 07/12/22 09:15 Dose: 10 mg Fish Oil (Bradford-3 (Purified Fish Oil) 1 Gm Cap) 1 gm PO QAM YVONNE Stop: 08/11/22 08:59 Last Admin: 07/12/22 09:15 Dose: 1 gm Furosemide (Furosemide 80 Mg Tab) 80 mg PO QAM YVONNE Stop: 08/11/22 08:59 Glucagon (Glucagon For Inj 1 Mg Vial) 1 mg SQ UD PRN; Protocol PRN Reason: Hypoglycemia Protocol Stop: 08/11/22 02:56 Glucose (Glucose 40% Gel 15 Gm Tube) 15 - 30 gm PO UD PRN; Protocol PRN Reason: Hypoglycemia Protocol Stop: 08/11/22 02:56 Glucose (Glucose 10 Tab/Tube) 4 - 8 tab PO UD PRN; Protocol PRN Reason: Hypoglycemia Treatment Stop: 08/11/22 02:56 Hydralazine HCl (Hydralazine Tab 50 Mg Tab) 50 mg PO TID [facility] Stop: 08/11/22 08:59 Last Admin: 07/12/22 12:18 Dose: 50 mg Insulin Glargine (Lantus Per Unit Charge) 10 units SQ BID [facility] Stop: 08/11/22 08:59 Last Admin: 07/12/22 09:15 Dose: 10 units Insulin Human Regular (Insulin Human Regular) 0 units SC ACHS [facility] Stop: 08/11/22 07:29 Last Admin: 07/12/22 12:07 Dose: 4 units Isosorbide Mononitrate (Isosorbide Ida Extended Rel 60 Mg Tabcr) 60 mg PO QAM [facility] Stop: 08/11/22 08:59 Last Admin: 07/12/22 09:15 Dose: 60 mg Metoprolol Tartrate (Metoprolol Tartrate 25 Mg Tab) 25 mg PO BID [facility] Stop: 08/11/22 11:14 Last Admin: 07/12/22 12:16 Dose: 25 mg Miscellaneous (Carbohydrates For Hypoglycemia ) 15 - 30 gm PO UD PRN PRN Reason: Hypoglycemia Protocol Stop: 08/11/22 02:56 Miscellaneous Information (Pharmacy Glycemic Mgmt Consult) 1 each N/A UD PRN PRN Reason: Consult Stop: 08/11/22 06:58 Nifedipine (Nifedipine Extended Rel 30 Mg Tabcr) 60 mg PO QAM [facility] Stop: 08/11/22 08:59 Last Admin: 07/12/22 09:15 Dose: 60 mg Ondansetron HCl (Ondansetron Inj 2 Mg/Ml 2 Ml Vial) 4 mg IV Q6H PRN PRN Reason: Nausea Stop: 08/11/22 02:56 Polyethylene Glycol (Polyethylene (Miralax) 17 Gm Pack) 17 gm PO DAILY PRN PRN Reason: Constipation Stop: 08/11/22 02:56 PG Care Time/CCT Total # of Minutes Spent Total Time Spent with Patient: Total time spent is greater than 50% in coordination of care (as documented) at patient's floor/unit and/or counseling patient: Coding Level of Care Code 90040 Initial Inpt Care Lvl 3 Diagnoses Multifocal atrial tachycardia I47.1 Paroxysmal atrial fibrillation I48.0 Chest pain R07.9 Pericardial effusion I31.3 CAD (coronary artery disease) I25.10 Associated angina: without angina Coronary Disease-Associated Artery/Lesion type: [place] artery [place] vs. transplanted heart: [place] heart H/O heart artery stent Z95.5 Hyperlipidemia E78.5 Hyperlipidemia type: unspecified Hypertension I10 Hypertension type: essential hypertension Elevated troponin R77.8 (1) CAD (coronary artery disease) Associated angina: without angina Coronary Disease-Associated Artery/Lesion type: [place] artery [place] vs. transplanted heart: [place] heart Qualified Code(s): I25.10 - Atherosclerotic heart disease of [place] coronary artery without angina pectoris (2) Hyperlipidemia Hyperlipidemia type: unspecified Qualified Code(s): E78.5 - Hyperlipidemia, unspecified (3) Hypertension Hypertension type: essential hypertension Qualified Code(s): I10 - Essential (primary) hypertension
[2022-07-12] MEDS: METOPROLOL TARTRATE 25 MG TAB PO SCH ×2 (12:16→20:53)
--- NOTE | 2022-07-12 12:29 | Nephrology Consultation ---
Date of Consultation July 12, 2022 Assessment & Plan (1) ESRD needing dialysis: * Will provide NCCPD tonight according to outpatient orders except will attempt 2.5 L fill volume * PRP in am (2) Hypokalemia: * Patient is nonoliguric and remains on loop diuretic therapy * Low potassium is likely contributing to atrial fibrillation * Will supplement serum potassium * Patient will likely require scheduled KCl (3) Atrial fibrillation with RVR: * Recommend titration of Metoprolol to control rate (4) Pericardial effusion: * On exam patient has cardiac murmur vs rub * No diffuse ST elevation on ECG * Will check echocardiogram to assess pericardial effusion and check for valvular disease (5) Anemia due to chronic kidney disease: * Will order iron studies and consider TRAE in am History of Present Illness Reason for Consultation: ESKD on NCCPD Attending Physician: Jesus Manuel Flores, History of Present Illness Ms. Mcnulty is a 72 year old white female who is seen at the request of the [facility] Hospitalist Service to provide NCCPD therapy and assist w/ medical management. Medical records in the EMR were reviewed today and are summarized as follows: Ms. 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 She started HD via R IJ THC 12/01/21. She subsequently underwent PD catheter insertion 04/17/22 and then transition from IHD to NCCPD 06/22/22 following the removal of her IJ THC. Ms. Mcnulty reports that her NCCPD has been smooth. She denies fever, abdominal pain, difficulty draining or cloudy effluent. She does note that her clearances have been below target and her fill volume was recently increased to 2.3 L. Her current NCCPD regimen is 4 dwells/night, 2.3 L vol, mixture 1.5% + 2.5% delflex, LBO 2300 cc. Ms. Mcnulty presented to the [facility] last evening for evaluation of chest discomfort. She c/o retrosternal chest discomfort without radiation and not associated w/ exertion. It is made mildly worse w/ deep inspiration. ECG revealed atrial fibrillation w/ HR 123 bpm, troponin 78, CXR w/ mild vascular congestion, serum potassium 2.8. PMH: ESKD due to renal vascular disease (s/p renal artery stent 2013), R arm AVF created 01/16 - thrombosed, AODM, hyperlipidemia, ASCVD (s/p stent x2), PVD w/ subclavian artery stenosis, obesity, gout Allergies Allergy/AdvReac Type Severity Reaction Status Date / Time heparin Allergy Intermediate Hives Verified 07/11/22 23:51 insulin aspart Allergy Intermediate Hives Verified 07/11/22 23:51 [From Novolog U-100 Insulin aspart] meperidine AdvReac Intermediate hallucinate Verified 07/11/22 23:51 s lisinopril AdvReac Mild COUGHING Verified 07/11/22 23:51 Home Medications Medication Instructions Recorded Confirmed Type qq-1-dyc-epa-fish oil-vit D3 300 1 cap PO QAM 05/26/21 07/11/22 History mg-1,000 mg-1,000 unit capsule (Fish Oil-Vit D3) clopidogrel 75 mg tablet (Plavix) 75 mg PO QAM #90 tabs 09/15/21 07/11/22 Rx isosorbide mononitrate 60 mg 60 mg PO QAM #90 tabs 10/24/21 07/11/22 Rx tablet,extended release 24 hr dicyclomine 10 mg capsule 10 mg PO TID PRN Abdominal 10/31/21 07/11/22 Rx Discomfort #90 caps calcitriol 0.25 mcg capsule 0.25 mcg PO QAM 11/25/21 07/11/22 History metoprolol succinate 25 mg 25 mg PO QAM 11/25/21 07/11/22 History tablet,extended release 24 hr nifedipine 60 mg tablet,extended 60 mg PO QAM 11/25/21 07/11/22 History release 24 hr (Procardia XL) apixaban 2.5 mg tablet (Eliquis) 2.5 mg PO BID #60 tabs 12/03/21 07/11/22 Rx atorvastatin 40 mg tablet (Lipitor) 80 mg PO QAM 04/09/22 07/11/22 History furosemide 80 mg tablet 80 mg PO QAM 04/09/22 07/11/22 History insulin glargine 100 unit/mL (3 10 unit subcut BID 04/09/22 07/11/22 History mL) subcutaneous pen (Lantus Solostar U-100 Insulin) allopurinol 100 mg tablet 100 mg PO QAM #90 tabs 05/01/22 07/11/22 Rx (Zyloprim) OneTouch Ultra Test (blood sugar #300 ea 06/18/22 07/11/22 Rx diagnostic) hydralazine 50 mg tablet 50 mg PO TID 07/11/22 07/11/22 History insulin lispro 100 unit/mL 10 unit subcut QAM 07/11/22 07/11/22 History subcutaneous pen Patient History Medical History Abdominal pain Ongoing -- following with [facility]. Anemia due to chronic kidney disease Atrial fibrillation Occurred during hospital stay in [facility] ~2020. Treated with medication at the time. No problems since. Follows with Dr. Knott CAD (coronary artery disease) S/p stent to LCx 2009 and RCA in 2018 Carotid artery disease Carotid duplex 08/19/2018 = 5059% stenosis on the right internal carotid artery. No significant stenosis in the left internal carotid artery. Chronic back pain Significant x 2 years Has seen pain management - s/p epidural injections- only lasted 6 weeks for pain relief Chronic heart failure with preserved ejection fraction (HFpEF) Deep vein thrombosis (~05/2021) Unknown cause Degenerative disc disease Diabetes mellitus, type 2 IDDM Glucose stable and controlled per patient ESRD needing dialysis Started in Nov 2021 Hemodialysis patient Diaylsis in [place]: Saturday, Saturday, Saturday through History of stent insertion of renal artery 2013 Hyperlipidemia Hypertension Lymphedema Obesity Osteoarthritis Renal artery stenosis S/p renal stent 2013 Status post myocardial infarction Subclavian artery stenosis Per 08/19/18 carotid duplex- Normal flow in the innominate and right subclavian arteries. >50% stenosis of the proximal left subclavian artery with retrograde flow in the left vertebral artery and >40 mmHg difference in brachial systolic pressures (right >left). Surgical History H/O heart artery stent x2, last stent placed ~2016. History of cardiac cath x2, most recent done about 5 years ago in [place]. History of colonoscopy History of esophagogastroduodenoscopy (EGD) S/P arteriovenous (AV) fistula creation right (Dr Hayes) 12/2021 S/P epidural steroid injection Family History Other Hypertension No family history of adverse response to anesthesia Social History Smoking Status: Never smoker Second Hand Exposure: Yes (hx); Hx Alcohol Use: No Hx Substance Use: No Preferred Language: Upper Sorbian Communication Ability: Effective Visual Impairment: No Limitations Senior Painter Required: No Beliefs That Will Affect Care: None marital status: Single Current Living Situation: Family Current Living Situation Comment: Grandson How many Children do You have: 2 Feels Safe at Home: Yes Safety Concerns: Feels Safe At This Time Assistive Devices: Glasses Review of Systems 2 Constitutional: no fever Eyes: no problem reported Ear, Nose, Mouth, Throat: no problem reported Respiratory: no cough and no dyspnea Cardiovascular: + chest pain Gastrointestinal: no abdominal pain, no nausea, no vomiting and no diarrhea/loose stools Genitourinary: no dysuria Neurologic: no confusion Physical Exam Constitutional: not in distress Eyes: PERRL, conjunctivae normal, anicteric sclerae ENMT: external ear and nose normal, oropharynx normal Neck: trachea midline, no thyromegaly Respiratory: normal respiratory effort, lungs clear to auscultation Cardiovascular: Rate/Rhythm: + tachycardic and + irregularly irregular Heart Sounds: + murmur Extremities: + AV fistula (thrombosed); no edema Gastrointestinal (Abdomen): Inspection/Auscultation: normal bowel sounds (RLQ PD exit site w/ clean dry dressing in place) Percussion/Palpation: abdomen soft; abdomen nontender and no guarding Neurologic: awake; not confused Results & Data ([facility]) Vital Signs (Past 12 Hours) Vital Signs Temp Pulse Pulse Resp BP Pulse Ox Pulse Ox 07/12/22 08:00 37.1 C 91 H 16 155/89 H 95 07/12/22 02:57 94 07/12/22 04:39 36.7 C 64 18 145/78 H 97 07/12/22 02:47 36.6 C 98 H 17 129/93 94 07/12/22 03:11 103 H O2 Del Method O2 Del Method O2 Flow Rate O2 Flow Rate 07/12/22 08:00 Nasal Cannula 2 07/12/22 02:57 Nasal Cannula 2 07/12/22 04:39 07/12/22 02:47 Nasal Cannula 2 07/12/22 03:11 Laboratory Results Laboratory Tests 07/11/22 07/11/22 07/12/22 20:53 23:17 06:40 WBC Hgb Hct Plt Count Sodium 134 L Potassium 2.8 L Chloride 95 L Carbon Dioxide 22 BUN 64 H Creatinine 8.32 H* D Glucose 127 H Calcium 8.0 L Phosphorus 7.9 H Magnesium 1.8 Troponin I High Sens 78.8 H* 96.3 H* D 79.5 H* D 07/12/22 06:40 WBC 11.15 H Hgb 9.9 L Hct 29.8 L Plt Count 264 Sodium Potassium Chloride Carbon Dioxide BUN Creatinine Glucose Calcium Phosphorus Magnesium Troponin I High Sens PG Care Time/CCT Total # of Minutes Spent Total Time Spent with Patient: Total time spent is greater than 50% in coordination of care (as documented) at patient's floor/unit and/or counseling patient: Coding Level of Care Code 77265 Inpt Consult Level 5 Diagnoses ESRD needing dialysis N18.6; Z99.2 Hypokalemia E87.6 Atrial fibrillation with RVR I48.91 Pericardial effusion I31.3 Anemia due to chronic kidney disease N18.9; D63.1
[2022-07-12 12:39] LABS: BUN Creatinine Ratio 7.7 (10-20); Calcium 8.1 mg/dl (8.5-10.1); Creatinine Clr Calc Pharmacy 6.2 ml/min; Est GFR (Non-African American) 4.3 ml/min; Potassium 3.1 mmol/L (3.5-5.1)
--- NOTE | 2022-07-12 13:30 | XCELERA ---
[id number]\[id number]
--- NOTE | 2022-07-12 13:52 | Pharmacy Report ---
Pharmacy Glycemic Short Note 2 - Date of Service July 12, 2022 - Glycemic Short BSG Results (Last 24 hours): 07/11/22 07/12/22 07/12/22 20:53 03:08 06:40 Glucose 141 H 127 H POC Glucose 142 H 07/12/22 07/12/22 07/12/22 07:44 11:40 11:42 Glucose 183 H POC Glucose 155 H 194 H OUTPATIENT ANTIDIABETIC REGIMEN: * Lantus 10 units BID * Humalog 10 units with breakfast ASSESSMENT: * Ms Mcnulty is a 72 y/o F with a PMH of T2DM on peritoneal dialysis who presents with Afib with RVR. * Patient has allergy to Novolog (HIVES) so will utilize Regular insulin for mealtime insulin. * For now, will continue home regimen of Lantus 10 units BID (this is below weight-based stress of 2 so reasonable). * Novolog weight-based stress of 2. PLAN FOR INPATIENT GLYCEMIC CONTROL: * Basal insulin * Lantus 10 units SQ BID * Bolus insulin * Regular per scale ACHS or Q6hrs while NPO * Goal Range: Low 110 mg/dL - High 140 mg/dL * Correction Factor: 30 mg/dL/unit * Nutritional / Prandial insulin per carb ratio of 1 unit per 9 grams CHO consumed
--- NOTE | 2022-07-12 21:26 | Electrocardiogram Report ---
Test Reason : Blood Pressure : / mmHG Vent. Rate : 123 BPM Atrial Rate : 156 BPM P-R Int : 000 ms QRS Dur : 102 ms QT Int : 294 ms P-R-T Axes : 000 -04 178 degrees QTc Int : 420 ms Possible Multifocal atrial tachycardia Voltage criteria for left ventricular hypertrophy Marked ST abnormality, possible inferolateral subendocardial injury Abnormal ECG When compared with ECG of 25-DEC-2021 11:17, Vent. rate has increased BY 55 BPM Confirmed by Kayode Del Cid ([id number]) on 07/12/2022 9:26:01 PM Referred By: REFERRED SELF Confirmed By:Kayode Del Cid
--- NOTE | 2022-07-12 21:41 | Electrocardiogram Report ---
Test Reason : Blood Pressure : / mmHG Vent. Rate : 080 BPM Atrial Rate : 080 BPM P-R Int : 172 ms QRS Dur : 104 ms QT Int : 432 ms P-R-T Axes : 054 -14 158 degrees QTc Int : 498 ms Possible wandering atrial pacemaker Left ventricular hypertrophy with repolarization abnormality Prolonged QT Abnormal ECG When compared with ECG of 11-JUL-2022 20:27, Vent. rate has decreased BY 43 BPM Confirmed by Kayode Del Cid ([id number]) on 07/12/2022 9:41:21 PM Referred By: REFERRED SELF Confirmed By:Kayode Del Cid
--- NOTE | 2022-07-13 04:04 | Billing Data ---
Date of Service July 13, 2022 Coding Level of Care Code 22751 Initial Inpt Care Lvl 3
--- NOTE | 2022-07-13 07:36 | Hospitalist Progress Note ---
Date of Service July 13, 2022 Assessment & Plan (1) Atrial fibrillation with RVR: Plan: Ayana Mcnulty is a 72-year-old female with past medical history of CAD, ESRD on daily peritoneal dialysis, paroxysmal A. fib on Eliquis, hyperlipidemia, type 2 diabetes, gastric ulcer, who presented due dyspnea and chest tightness likely secondary to tachycardia, afib w/ RVR vs multifocal atrial tachycardia. Atrial Fibrillation vs. Multifocal Atrial Tachycardia - Tachycardia, intermittent. 70s-130s - Telemetry shows runs of afib, but also p waves with multiple morphologies suggestive of multifocal atrial tachycardia. - NSR this morning with a rate 60-80 Cardiology is consulted: recommends changing from metoprolol succinate 25 qam to tartrate 25mg BID Mild hs trop elevation, peaked in the 90s, does have end-stage renal disease on peritoneal dialysis. Continue Eliquis 2.5 BID Chest Pain - Etiology could be due to tachycardia, pain has improved with rate control ESRD on daily peritoneal dialysis Missed 07/11/22 dialysis session - Had a session last night, will plan to have another session tonight [facility] nephrology consulted Follow BMP Hypokalemia K= 3.2 today; will replete - KCl 20meq in morning per nephrology recommendations Anemia - most likely secondary to CKD - dose of Epogen per nephrology recommendations CAD/hypertension Continue metoprolol, isosorbide mononitrate, atorvastatin, Plavix, furosemide (on hold) HFpEF Hold home PO lasix 80mg PO daily for now given the hypokalemia DM2 Hold home regimen Sliding scale with basal while admitted DVT prophylaxis: Anticoagulated on Eliquis Diet: Heart healthy, DM2, dialysis renal diet Dispo: PCU CODE STATUS: Full (2) Type 2 diabetes mellitus: (3) ESRD needing dialysis: (4) Hyperlipidemia: (5) CAD (coronary artery disease): (6) Hypertension: (7) Chronic heart failure with preserved ejection fraction (HFpEF): Admission and Anticipated Discharge Date Admission Date: July 12, 2022 Supervising Physician Co-Signing Physician Notes I personally examined the patient and verified all andrews points of history and exam, discussed case, and agree with decision making with Dr Mayorga Physically feeling better. Very anxious about going home. Discussed plans, she expressed good understanding. Case discussed with cardiology as well. nely noted nad heent nc at mmm breathing unlabored no accessory muscle use good effort. Rate now controlled. Tachyarrhythmiabeta-blockade. Rate control. Symptoms are improving. Stable for transfer to medical, replace potassium, follow closely as outpatientmaintain inpatient overnight given her fever, transitioning to what she would be doing at home to allow her to build confidence that she will be okay. Otherwise as above. Subjective No events overnight. Feeling well this morning. Chest pain has improved; still has intermittently. Denies dyspnea, lower extremity edema. Tolerated PD well last night. Review of Systems Review of Systems: As per HPI Physical Exam Physical Exam: Constitutional: well-appearing, no acute distress HEENT: NCAT, no conjunctival injection CV: regular rhythm, no murmur appreciated, extremities well-perfused, no LE edema Resp: CTABL, no wheezes/rales/rhonchi appreciated, no increased work of br eathing GI: soft, nondistended, nontender, BS normoactive MSK: no gross deformities appreciated Skin: warm, dry, no rash appreciated Neuro: alert, oriented, no focal neurologic deficit appreciated Results & Data Results & Data ([facility]) Vital Signs (Past 12 Hours) Vital Signs Temp Pulse Pulse Resp BP Pulse Ox Pulse Ox 07/13/22 07:17 37 C 66 12 110/76 90 07/13/22 07:00 65 07/13/22 03:30 37.1 C 79 18 101/67 90 07/13/22 02:57 90 07/12/22 23:37 36.7 C 52 L 18 122/70 95 07/12/22 20:06 37.2 C 110 H 20 111/67 95 O2 Del Method O2 Del Method O2 Flow Rate O2 Flow Rate 07/13/22 07:17 Nasal Cannula 07/13/22 07:00 07/13/22 03:30 Nasal Cannula 2 07/13/22 02:57 Nasal Cannula 2 07/12/22 23:37 Nasal Cannula 2 07/12/22 20:06 Nasal Cannula 2 Resident Activity Tracking Resident Involvement: Resident Care Provided Care Provided: Adult Hospital Medicine (1) CAD (coronary artery disease) Associated angina: without angina Coronary Disease-Associated Artery/Lesion type: [place] artery [place] vs. transplanted heart: [place] heart Qualified Code(s): I25.10 - Atherosclerotic heart disease of [place] coronary artery without angina pectoris (2) Hyperlipidemia Hyperlipidemia type: unspecified Qualified Code(s): E78.5 - Hyperlipidemia, unspecified (3) Hypertension Hypertension type: essential hypertension Qualified Code(s): I10 - Essential (primary) hypertension
[2022-07-13] MEDS: INSULIN HUMAN REGULAR SC SCH ×4 (08:08→20:44)
[2022-07-13 08:31] LABS: Basophils % (auto) 0.9 %; Eosinophils # (auto) 1.21 K/uL (0-0.50); Hematocrit (blood only) 28.4 % (34.1-44.9); Hemoglobin 9.4 g/dl (12.0-16.0); Immature Granulocytes # (auto) 0.13 K/uL (0.00-0.02); Immature Granulocytes % (auto) 1.2 %; Lymphocytes # (auto) 1.35 K/uL (1.2-3.4); Lymphocytes % (auto) 12.3 %; Mean Corpuscular Hemoglobin 29.5 pg (25.0-34.0); Mean Corpuscular Hgb Conc 33.1 g/dL (32.0-36.0); Mean Platelet Volume 11.8 fL (9.4-12.3); Monocytes # (auto) 1.22 K/uL (0.24-0.82); Monocytes % (auto) 11.1 %; Neutrophils # (auto) 6.97 K/uL (1.4-6.5); Neutrophils % (auto) 63.5 %; Platelet Count 328 K/uL (130-400); RDW Standard Deviation 45.2 fL (36.4-46.3); Red Blood Count 3.19 M/uL (3.93-5.22); White Blood Count 10.98 K/ul (4.8-10.8)
--- NOTE | 2022-07-13 08:41 | Nephrology Progress Note ---
Date of Service July 13, 2022 Assessment & Plan (1) ESRD needing dialysis: Plan: * Will provide NCCPD tonight according to outpatient orders except will attempt 2.3 L fill volume * PRP in am * If discharge is anticipated, please have patient resume home peritoneal dialysis using 2300 cc fill volumes and ask her to call the home therapy washhouse hand when she returns home for ongoing monitoring (2) Hypokalemia: Plan: * Patient is nonoliguric and remains on loop diuretic therapy * Low potassium is likely contributing to atrial fibrillation * Will supplement serum potassium * Will schedule KCl 20 mEq each morning (3) Atrial fibrillation with RVR: Plan: * Cardiology has changed from Metoprolol Succinate to Metoprolol Tartrate 25 mg po BID * HR now controlled * Echocardiogram 07/12/22: LVEF 60-65%, moderate , small to moderate pericardial effusion without tamponade physiology. Compared to 05/27/21, has progressed (4) Pericardial effusion: Plan: * On exam patient has cardiac murmur vs rub * No diffuse ST elevation on ECG * Chest discomfort subjectively improved following rate control of atrial fibrillation * Will attempt to improve dialysis clearances by increasing dwell volume to 2300 cc (5) Anemia due to chronic kidney disease: Plan: * [employer] stores are acceptable * Will provide one dose Epogen today Admission and Anticipated Discharge Date Admission Date: July 12, 2022 Subjective Currently, symptoms are milder than at admission. Still has some chest tightness. No dyspnea at the moment. Presented for a few days of dyspnea and palpitations. Review of Systems Constitutional: no fever Eyes: no problem reported Ear, Nose, Mouth, Throat: no problem reported Respiratory: no cough and no dyspnea Cardiovascular: + chest pain Gastrointestinal: no abdominal pain, no nausea, no vomiting and no diarrhea/loose stools Genitourinary: no dysuria Neurologic: no confusion Physical Exam Constitutional: not in distress Eyes: PERRL, conjunctivae normal, anicteric sclerae ENMT: external ear and nose normal, oropharynx normal Neck: trachea midline, no thyromegaly Respiratory: normal respiratory effort, lungs clear to auscultation Cardiovascular: Rate/Rhythm: + tachycardic and + irregularly irregular Heart Sounds: + murmur Extremities: + AV fistula (thrombosed); no edema Gastrointestinal (Abdomen): Inspection/Auscultation: normal bowel sounds (RLQ PD exit site w/ clean dry dressing in place) Percussion/Palpation: abdomen soft; abdomen nontender and no guarding Neurologic: awake; not confused Results & Data ([facility] [place]) Vital Signs (Past 12 Hours) Vital Signs Temp Pulse Pulse Resp BP Pulse Ox Pulse Ox 07/13/22 07:30 36.9 C 74 16 07/13/22 07:17 37 C 66 12 110/76 90 07/13/22 07:00 65 07/13/22 03:30 37.1 C 79 18 101/67 90 07/13/22 02:57 90 07/12/22 23:37 36.7 C 52 L 18 122/70 95 O2 Del Method O2 Del Method O2 Flow Rate O2 Flow Rate 07/13/22 07:30 07/13/22 07:17 Nasal Cannula 07/13/22 07:00 07/13/22 03:30 Nasal Cannula 2 07/13/22 02:57 Nasal Cannula 2 07/12/22 23:37 Nasal Cannula 2 Laboratory Results Laboratory Tests 07/13/22 08:01 WBC 10.98 H Hgb 9.4 L Hct 28.4 L Plt Count 328 Laboratory Tests 07/13/22 07/13/22 08:01 08:01 Sodium 135 L Potassium 3.2 L Chloride 96 L BUN 65 H Creatinine 8.33 H* Glucose 118 H Calcium 8.2 L Transferrin % Sat 22 Ferritin 1100.7 H PG Care Time/CCT Total # of Minutes Spent Total Time Spent with Patient: Total time spent is greater than 50% in coordination of care (as documented) at patient's floor/unit and/or counseling patient: Coding Level of Care Code 48194 Subseq Hosp Care Lvl 3 Diagnoses ESRD needing dialysis N18.6; Z99.2 Hypokalemia E87.6 Atrial fibrillation with RVR I48.91 Pericardial effusion I31.3 Anemia due to chronic kidney disease N18.9; D63.1
[2022-07-13 08:55] LABS: Iron 34 mcg/dl (35-150); Total Iron Binding Cap Calc 152 mcg/dl (250-450); Transferrin (FE) Percent Satur 22 % (15-50); Unsaturated Iron Binding Cap 118 mcg/dl (155-355)
[2022-07-13 09:01] LABS: BUN Creatinine Ratio 7.8 (10-20); Calcium 8.2 mg/dl (8.5-10.1); Creatinine Clr Calc Pharmacy 6.2 ml/min; Est GFR (Non-African American) 4.3 ml/min; Magnesium 1.8 mg/dl (1.7-2.4); Potassium 3.2 mmol/L (3.5-5.1)
[2022-07-13 09:13] LABS: Ferritin 1100.7 ng/ml (8-388)
[2022-07-13] MEDS: APIXABAN 2.5 MG TAB PO SCH ×2 (09:18→20:42)
[2022-07-13] MEDS: METOPROLOL TARTRATE 25 MG TAB PO SCH ×2 (09:19→21:30)
[2022-07-13] MEDS: hydrALAZINE TAB 50 MG TAB PO SCH ×3 (09:19→20:42)
[2022-07-13] MEDS: OMEGA-3 (PURIFIED FISH OIL) 1 GM CAP PO SCH (09:19)
[2022-07-13] MEDS: ISOSORBIDE MONO EXTENDED REL 60 MG TABCR PO SCH (09:20)
[2022-07-13] MEDS: CALCITRIOL 0.25 MCG CAPSULE PO SCH (09:20)
[2022-07-13] MEDS: CLOPIDOGREL BISULFATE 75 MG PO SCH (09:20)
[2022-07-13] MEDS: allopurinoL 100 MG TAB PO SCH (09:20)
[2022-07-13] MEDS: ATORVASTATIN 40 MG TAB PO SCH (09:20)
[2022-07-13] MEDS: NIFEdipine EXTENDED REL 30 MG TABCR PO SCH (09:20)
[2022-07-13] MEDS: LANTUS PER UNIT CHARGE SQ SCH ×2 (09:34→20:49)
--- NOTE | 2022-07-13 12:15 | Cardiology Progress Note ---
Date of Service July 13, 2022 Assessment & Plan (1) Paroxysmal atrial fibrillation: Plan: -remains on metoprolol tartrate 50 mg b.i.d. -1 episode of atrial fibrillation last evening lasting approximately 5 hours. -continue Eliquis as long-term anticoagulant. (2) Chest pain: Plan: -atypical chest discomfort has resolved. -no further cardiac evaluation necessary at this time. (3) CAD (coronary artery disease): Plan: -s/p LCx stent August 2010, RCA stent September 2019. -continue medical management. (4) Hypertension: Plan: -adequate control on current regimen. (5) Aortic stenosis: Plan: -moderate in degree on current echocardiogram. Admission and Anticipated Discharge Date Admission Date: July 12, 2022 Subjective The patient is resting comfortably in bed without complaints of chest pain, d yspnea, or palpitations. We have had long discussion regarding her hypokalemia. Physical Exam Physical Exam: In general is well-developed well-nourished female in no acute distress. HEENT exam is negative. Neck is supple with mildly delayed carotid upstrokes. A transmitted murmurs noted bilaterally. Jugular is pressure is flat at 90. Cardiovascular exam reveals a regular rhythm with a 2/6 crescendo decrescendo systolic murmur heard loudest at the base. S2 is audible at the apex. Lungs are clear without rales, rhonchi or wheezes. Abdomen is soft and nontender without bruits. Extremities note a right upper extremity thrill and bruit. There is no peripheral edema. 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 She did have an episode of atrial fibrillation last evening from approximately 6:00 p.m. to 11:00 p.m. PG Care Time/CCT Total # of Minutes Spent Total Time Spent with Patient: Total time spent is greater than 50% in coordination of care (as documented) at patient's floor/unit and/or counseling patient: Coding Level of Care Code 10234 Subseq Hosp Care Lvl 3 Diagnoses Paroxysmal atrial fibrillation I48.0 Chest pain R07.9 CAD (coronary artery disease) I25.10 Coronary Disease-Associated Artery/Lesion type: [place] artery [place] vs. transplanted heart: [place] heart Associated angina: without angina Hypertension I10 Hypertension type: essential hypertension Aortic stenosis I35.0 (1) CAD (coronary artery disease) Coronary Disease-Associated Artery/Lesion type: [place] artery [place] vs. transplanted heart: [place] heart Associated angina: without angina Qualified Code(s): I25.10 - Atherosclerotic heart disease of [place] coronary artery without angina pectoris (2) Hypertension Hypertension type: essential hypertension Qualified Code(s): I10 - Essential (primary) hypertension
[2022-07-13] MEDS: POTASSIUM CHLORIDE CRTAB 20 MEQ TABCR PO SCH (13:08)
--- NOTE | 2022-07-13 13:29 | Pharmacy Report ---
Pharmacy Glycemic Short Note 2 - Date of Service July 13, 2022 - Glycemic Short BSG Results (Last 24 hours): 07/12/22 07/12/22 07/13/22 16:34 20:04 07:21 Glucose POC Glucose 119 H 246 H 120 H 07/13/22 07/13/22 08:01 11:13 Glucose 118 H POC Glucose 185 H OUTPATIENT ANTIDIABETIC REGIMEN: * Lantus 10 units BID * Humalog 10 units with breakfast ASSESSMENT: * Ms Mcnulty's BSGs yesterday were [phone] mg/dL. Fasting today is 120 mg/dL. * Patient received 31 units of insulin yesterday (20 units of basal and 11 units of bolus). * Reduce basal by 20% as fasting trended down by 30 points. Regimen also basal heavy. * Loosen CF as patient overcorrected at dinner and tighten CR. BACKGROUND * Ms Mcnulty is a 72 y/o F with a PMH of T2DM on peritoneal dialysis who presents with Afib with RVR. * Patient has allergy to Novolog (HIVES) so will utilize Regular insulin for mealtime insulin. * For now, will continue home regimen of Lantus 10 units BID (this is below weight-based stress of 2 so reasonable). * Novolog weight-based stress of 2. PLAN FOR INPATIENT GLYCEMIC CONTROL: * Basal insulin * Lantus 8 units SQ BID * Bolus insulin * Regular per scale ACHS or Q6hrs while NPO * Goal Range: Low 110 mg/dL - High 140 mg/dL * Correction Factor: 35 mg/dL/unit * Nutritional / Prandial insulin per carb ratio of 1 unit per 7 grams CHO co nsumed
--- NOTE | 2022-07-13 17:18 | Billing Data ---
Date of Service July 13, 2022 Coding Level of Care Code 15155 Subseq Hosp Care Lvl 2
--- NOTE | 2022-07-14 07:33 | Hospitalist Progress Note ---
Date of Service July 14, 2022 Assessment & Plan (1) Atrial fibrillation with RVR: Plan: Ayana Mcnulty is a 72-year-old female with past medical history of CAD, ESRD on daily peritoneal dialysis, paroxysmal A. fib on Eliquis, hyperlipidemia, type 2 diabetes, gastric ulcer, who presented due dyspnea and chest tightness likely secondary to tachycardia, afib w/ RVR vs multifocal atrial tachycardia now clinically improving. Atrial Fibrillation vs. Multifocal Atrial Tachycardia - Tachycardia, intermittent. 70s-130s upon admission - Telemetry shows runs of afib, but also p waves with multiple morphologies suggestive of multifocal atrial tachycardia. - NSR this morning with a rate 60-80, no longer on tele Cardiology is consulted: recommends changing from metoprolol succinate 25 qam to tartrate 25mg BID Mild hs trop elevation, peaked in the 90s, does have end-stage renal disease on peritoneal dialysis. Continue Eliquis 2.5 BID Aortic Stenosis (moderate) Previous ECHO showed mild . Most recent ECHO shows moderate - murmur on PE with palpable radial thrill. Follow with cards outpatient. Chest Pain - Etiology could be due to tachycardia, pain has improved with rate control ESRD on daily peritoneal dialysis Missed 07/11/22 dialysis session - Had a session last night, will plan to have another session tonight [facility] [place] nephrology consulted Follow BMP Hypokalemia K= 3.2 today; will replete??? - KCl 20meq in morning per nephrology recommendations Anemia - most likely secondary to CKD - dose of Epogen per nephrology recommendations CAD/hypertension Continue metoprolol, isosorbide mononitrate, atorvastatin, Plavix, furosemide (on hold) HFpEF Hold home PO lasix 80mg PO daily for now given the hypokalemia -EF 60-65% DM2 Hold home regimen Sliding scale with basal while admitted DVT prophylaxis: Anticoagulated on Eliquis Diet: Heart healthy, DM2, dialysis renal diet Dispo: med surg CODE STATUS: Full (2) Type 2 diabetes mellitus: (3) ESRD needing dialysis: (4) Hyperlipidemia: (5) CAD (coronary artery disease): (6) Hypertension: (7) Chronic heart failure with preserved ejection fraction (HFpEF): Admission and Anticipated Discharge Date Admission Date: July 12, 2022 Subjective Feeling well this morning. Chest pain has improved; still has intermittently. Had an episode of chest tightness last night, was started on NC 2 L which helped to resolve symptoms. Denies dyspnea, lower extremity edema. Patient would like to know the results of her ECHO. Review of Systems Review of Systems: See above. Physical Exam Physical Exam: Constitutional: well-appearing, no acute distress HEENT: NCAT, no conjunctival injection CV: regular rhythm, crescendo-decrescendo systolic murmur with palpable right radial thrill. Extremities well-perfused, no LE edema Resp: CTAB, no wheezes/rales/rhonchi appreciated, no increased work of breathing GI: soft, nondistended, nontender, BS normoactive MSK: no gross deformities appreciated Skin: warm, dry, no rash appreciated Neuro: alert, oriented, no focal neurologic deficit appreciated Results & Data Results & Data ([facility]) Vital Signs (Past 12 Hours) Vital Signs Temp Pulse Resp BP Pulse Ox O2 Del Method 07/13/22 20:39 36.6 C 83 18 105/63 92 Room Air Laboratory Results 07/14/22 07/14/22 07/14/22 Range/Units 08:43 08:43 08:20 WBC 11.62 H (4.8-10.8) K/ul RBC 2.92 L (3.93-5.22) M/uL Hgb 8.7 L (12.0-16.0) g/dl Hct 26.6 L (34.1-44.9) % MCV 91.1 (80.0-100.0) fL MCH 29.8 (25.0-34.0) pg MCHC 32.7 (32.0-36.0) g/dL RDW Std Deviation 47.7 H (36.4-46.3) fL RDW Coeff of Ekaterina 14.3 (11.5-14.5) % Plt Count 333 (130-400) K/uL MPV 11.5 (9.4-12.3) fL Sodium 136 (136-145) mmol/L Potassium 3.2 L (3.5-5.1) mmol/L Chloride 98 (98-107) mmol/L Carbon Dioxide 23 (21-32) mmol/L Anion Gap 15 H (3-11) BUN 64 H (6-23) mg/dl Creatinine 7.66 H* D (0.6-1.2) mg/dl Est Cr Clr Drug Dosing 6.9 ml/min Est GFR ( Amer) 5.6 ml/min Est GFR (Non-Af Amer) 4.8 ml/min BUN/Creatinine Ratio 8.4 L (10-20) Glucose 109 H (70-99(Fasting)) mg/dl POC Glucose 120 H (70-99) mg/dl Calcium 8.2 L (8.5-10.1) mg/dl Hep Bs Antigen Hep Bs Ag Confirmation Hep Bs Antibody, Quant 07/13/22 07/13/22 07/13/22 Range/Units 20:31 16:39 11:13 WBC (4.8-10.8) K/ul RBC (3.93-5.22) M/uL Hgb (12.0-16.0) g/dl Hct (34.1-44.9) % MCV (80.0-100.0) fL MCH (25.0-34.0) pg MCHC (32.0-36.0) g/dL RDW Std Deviation (36.4-46.3) fL RDW Coeff of Ekaterina (11.5-14.5) % Plt Count (130-400) K/uL MPV (9.4-12.3) fL Sodium (136-145) mmol/L Potassium (3.5-5.1) mmol/L Chloride (98-107) mmol/L Carbon Dioxide (21-32) mmol/L Anion Gap (3-11) BUN (6-23) mg/dl Creatinine (0.6-1.2) mg/dl Est Cr Clr Drug Dosing ml/min Est GFR ( Amer) ml/min Est GFR (Non-Af Amer) ml/min BUN/Creatinine Ratio (10-20) Glucose (70-99(Fasting)) mg/dl POC Glucose 262 H 106 H 185 H (70-99) mg/dl Calcium (8.5-10.1) mg/dl Hep Bs Antigen Hep Bs Ag Confirmation Hep Bs Antibody, Quant 07/13/22 Range/Units 08:12 WBC (4.8-10.8) K/ul RBC (3.93-5.22) M/uL Hgb (12.0-16.0) g/dl Hct (34.1-44.9) % MCV (80.0-100.0) fL MCH (25.0-34.0) pg MCHC (32.0-36.0) g/dL RDW Std Deviation (36.4-46.3) fL RDW Coeff of Ekaterina (11.5-14.5) % Plt Count (130-400) K/uL MPV (9.4-12.3) fL Sodium (136-145) mmol/L Potassium (3.5-5.1) mmol/L Chloride (98-107) mmol/L Carbon Dioxide (21-32) mmol/L Anion Gap (3-11) BUN (6-23) mg/dl Creatinine (0.6-1.2) mg/dl Est Cr Clr Drug Dosing ml/min Est GFR ( Amer) ml/min Est GFR (Non-Af Amer) ml/min BUN/Creatinine Ratio (10-20) Glucose (70-99(Fasting)) mg/dl POC Glucose (70-99) mg/dl Calcium (8.5-10.1) mg/dl Hep Bs Antigen Pending Hep Bs Ag Confirmation Pending Hep Bs Antibody, Quant Pending Diagnostic Findings ECHO 07/12/22 Normal left ventricular size and systolic function. EF 60-65%. No regional wall motion abnormalities. Severe concentric left ventricular hypertrophy. Moderate left atrial dilation. Moderate aortic stenosis. Small to moderate pericardial effusion without echocardiographic evidence of tamponade physiology. Compared to prior study on 05/27/21 aortic stenosis is now moderate. (1) CAD (coronary artery disease) Associated angina: without angina Coronary Disease-Associated Artery/Lesion type: [place] artery [place] vs. transplanted heart: [place] heart Qualified Code(s): I25.10 - Atherosclerotic heart disease of [place] coronary artery without angina pectoris (2) Hyperlipidemia Hyperlipidemia type: unspecified Qualified Code(s): E78.5 - Hyperlipidemia, unspecified (3) Hypertension Hypertension type: essential hypertension Qualified Code(s): I10 - Essential (primary) hypertension
[2022-07-14] MEDS: CLOPIDOGREL BISULFATE 75 MG PO SCH (08:17)
[2022-07-14] MEDS: allopurinoL 100 MG TAB PO SCH (09:06)
[2022-07-14] MEDS: CALCITRIOL 0.25 MCG CAPSULE PO SCH (09:06)
[2022-07-14] MEDS: APIXABAN 2.5 MG TAB PO SCH (09:06)
[2022-07-14] MEDS: ATORVASTATIN 40 MG TAB PO SCH (09:07)
[2022-07-14] MEDS: ISOSORBIDE MONO EXTENDED REL 60 MG TABCR PO SCH (09:07)
[2022-07-14] MEDS: METOPROLOL TARTRATE 25 MG TAB PO SCH (09:07)
[2022-07-14] MEDS: OMEGA-3 (PURIFIED FISH OIL) 1 GM CAP PO SCH (09:07)
[2022-07-14] MEDS: hydrALAZINE TAB 50 MG TAB PO SCH ×2 (09:07→13:40)
[2022-07-14] MEDS: NIFEdipine EXTENDED REL 30 MG TABCR PO SCH (09:08)
[2022-07-14 09:16] LABS: Hematocrit (blood only) 26.6 % (34.1-44.9); Hemoglobin 8.7 g/dl (12.0-16.0); Mean Corpuscular Hemoglobin 29.8 pg (25.0-34.0); Mean Corpuscular Hgb Conc 32.7 g/dL (32.0-36.0); Mean Corpuscular Volume 91.1 fL (80.0-100.0); Mean Platelet Volume 11.5 fL (9.4-12.3); Platelet Count 333 K/uL (130-400); RDW Coefficient of Variation 14.3 % (11.5-14.5); RDW Standard Deviation 47.7 fL (36.4-46.3); Red Blood Count 2.92 M/uL (3.93-5.22); White Blood Count 11.62 K/ul (4.8-10.8)
[2022-07-14 09:29] LABS: BUN Creatinine Ratio 8.4 (10-20); Calcium 8.2 mg/dl (8.5-10.1); Creatinine Clr Calc Pharmacy 6.9 ml/min; Est GFR (African American) 5.6 ml/min; Est GFR (Non-African American) 4.8 ml/min; Potassium 3.2 mmol/L (3.5-5.1)
[2022-07-14] MEDS: LANTUS PER UNIT CHARGE SQ SCH (10:09)
[2022-07-14] MEDS: INSULIN HUMAN REGULAR SC SCH ×2 (10:10→13:40)
[2022-07-14] MEDS: POTASSIUM CHLORIDE CRTAB 20 MEQ TABCR PO SCH (10:14)
[2022-07-14] MEDS ORDERED: EPOETIN ALFA 20,000 UNITS/ML VIAL SQ ONE (11:00)
--- NOTE | 2022-07-14 12:14 | Nephrology Progress Note ---
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 She subsequently underwent PD catheter insertion 04/17/22 and then transition from IHD to NCCPD 06/22/22 following the removal of her IJ THC. NCCPD regimen is 4 dwells/night, 2.3 L vol, mixture 1.5% + 2.5% delflex, LBO 2300 cc. Ms. Mcnulty presented to the ER with chest discomfort, ECG revealed atrial fibrillation w/ HR 123 bpm, troponin 78, CXR w/ mild vascular congestion, serum potassium 2.8. Evaluated by Cardiology, changed the metoprolol to metoprolol tartrate twice a day, blood pressure has been stable, heart rate well controlled. Peritoneal dialysis has been uneventful. Has hypokalemia, on potassium supplement. Hemoglobin below 9. otherwise asymptomatic. -- Will give 1 dose of Epogen 00215 units subQ today. -- continue on peritoneal dialysis with cycler with current PD regimen. If she is discharged, she will continue the current prescription at home. Admission and Anticipated Discharge Date Admission Date: July 12, 2022 Ivis Piña was seen and examined this morning. She denied any specific symptoms or concerns. Blood pressure acceptable. Volume status acceptable. Potassium low, has been getting supplement. Hemoglobin low. Had peritoneal dialysis overnight, without any complication or concerns. Review of Systems Review of Systems: Detailed review of system was done and pertinent positives and negatives are mentioned above. Physical Exam Constitutional: WD/WN, vitals as above no acute distress Eyes: + anicteric sclerae Neck: normal visual inspection Respiratory: Auscultation: lungs clear to auscultation bilaterally Cardiovascular: Rate/Rhythm: regular rate and regular rhythm Heart Sounds: normal S1 and normal S2 Extremities: no edema Skin: no rashes Neurologic: no focal motor deficits Psychiatric: Orientation: alert and oriented x 3 Results & Data ([facility]) Vital Signs (Past 12 Hours) Vital Signs Temp Pulse Pulse Resp BP Pulse Ox O2 Del Method 07/14/22 08:10 36.7 C 60 18 09/17/22 09:13 61 133/72 96 Nasal Cannula 07/14/22 07:47 36.7 C 60 18 145/75 H 97 Nasal Cannula O2 Flow Rate 07/14/22 08:10 07/14/22 09:13 2 07/14/22 07:47 2 PG Care Time/CCT Total # of Minutes Spent Total Time Spent with Patient: Total time spent is greater than 50% in coordination of care (as documented) at patient's floor/unit and/or counseling patient: Coding Level of Care Code 34375 Subseq Hosp Care Lvl 3 Diagnoses ESRD on peritoneal dialysis N18.6; Z99.2 Chest pain R07.9 Elevated troponin R77.8 Atrial fibrillation with RVR I48.91 Hypokalemia E87.6 Anemia due to chronic kidney disease N18.9; D63.1
--- NOTE | 2022-07-14 13:49 | Discharge Summary ---
Date of Service July 14, 2022 Admission HPI Per Admitting Provider Ayana Mcnulty is a 72-year-old female with past medical history of end-stage renal disease on hemodialysis, A. fib on Eliquis, hyperlipidemia, type 2 diabetes who presented due to anterior chest pain that had been going on for the past 2 days. She she reported that the pain does come and go to a certain extent, but that she does feel a discomfort all the time. The pain has been midsternal radiating to both sides of the chest. She has also felt some associated shortness of breath. She states that she has also had some back pain after she was getting out of bed and made a twisting movement that ended up hurting her back. She went to her chiropractor but did not get much relief from this. Of note, patient does do peritoneal dialysis on a daily basis by her self and states she did not have her dialysis today. She denies nausea, vomiting, abdominal pain, weakness, numbness, headache, dizziness, swelling, fever, chills, rash. In the ED, patient had EKG showing A. fib with RVR and some nonspecific ST abnormalities but no obvious ST depressions. Chest x-ray did show some vascular congestion, there is some free air underneath the right diaphragm which is likely related to her peritoneal dialysis. Lab work showed troponin of 78 initially with repeat at 96.3, white count of 13.72, anemia with hemoglobin of 10, hypokalemia of 3.2, hypomagnesemia of 1.4, hyperphosphatemia 6.5. She received hydralazine 25 mg p.o. x1, magnesium 1 g IV x1, acetaminophen 1000 mg IV x1. Admission Exam Per Admitting Provider GENERAL: A&Ox3. NAD. HEENT: PERRL, EOMI. Moist mucous membranes. NECK: No JVD. No lymphadenopathy. CHEST/LUNGS: CTAB A/P. No crackles, wheezes, rales, rhonchi. HEART: Irregularly irregular. Holosystolic murmur best heard at right sternal border. No carotid bruits. ABDOMEN: NT/ND, soft. BS+ x4 EXTREMITIES: No cyanosis, no clubbing, no edema SKIN: Warm and dry. No rashes or lesions. PSYCHIATRIC: Euthymic affect, no SI, no pressured speech, no hallucinations NEUROLOGIC: No FND. CN II-XII grossly intact. Principal Diagnosis Chest Pain Discharge Exam Constitutional: well-appearing, no acute distress HEENT: NCAT, no conjunctival injection CV: regular rhythm, crescendo-decrescendo systolic murmur with palpable right radial thrill. Extremities well-perfused, no LE edema Resp: CTAB, no wheezes/rales/rhonchi appreciated, no increased work of breathing GI: soft, nondistended, nontender, BS normoactive MSK: no gross deformities appreciated Skin: warm, dry, no rash appreciated Neuro: alert, oriented, no focal neurologic deficit appreciated Discharge Data Allergies Allergy/AdvReac Type Severity Reaction Status Date / Time heparin Allergy Intermediate Hives Verified 07/11/22 23:51 insulin aspart Allergy Intermediate Hives Verified 07/11/22 23:51 [From Novolog U-100 Insulin aspart] meperidine AdvReac Intermediate hallucinate Verified 07/11/22 23:51 s lisinopril AdvReac Mild COUGHING Verified 07/11/22 23:51 Consultations 07/12/22 00:38 ED Decision to Admit Stat 07/12/22 02:57 Consult Nephrology Routine 07/12/22 06:31 Consult Cardiology Routine Ordered Studies Chest X-Ray 07/11/22 21:45 XR chest 1V portable CLINICAL HISTORY: Chest pain. COMPARISON STUDY: Chest radiograph December 25, 2021. FINDINGS: Note is made of a small curvilinear lucency under the right hemidiaphragm. Cardiomegaly is noted. There is mild pulmonary edema. A small left pleural effusion is noted with left basilar opacity. There is no pneumothorax. IMPRESSION: 1. Small curvilinear lucency under the right hemidiaphragm. This favors a small amount of pneumoperitoneum. By report, the patient has a peritoneal dialysis catheter which could account for this finding. However, correlation with abdominal symptoms is recommended. If indicated, a CT of the abdomen and pelvis could be obtained. This finding will be called/faxed to the ordering provider at time of dictation. 2. Cardiomegaly with mild interstitial pulmonary edema. 3. Small left pleural effusion with left basilar opacity which reflects consolidation or atelectasis. Radiographic follow up is recommended. ACT 112: Negative or not required by law. Electronically signed by: Fransico Headley M.D. 07/12/2022 9:28 AM Hospital Course (1) Atrial fibrillation with RVR: Ayana Mcnulty is a 72-year-old female with past medical history of CAD, ESRD on daily peritoneal dialysis, paroxysmal A. fib on Eliquis, hyperlipidemia, type 2 diabetes, gastric ulcer, who presented due dyspnea and chest tightness likely secondary to tachycardia, afib w/ RVR vs multifocal atrial tachycardia now clinically improving and ready for discharge. Atrial Fibrillation vs. Multifocal Atrial Tachycardia - Tachycardia, intermittent. 70s-130s upon admission - Telemetry shows runs of afib, but also p waves with multiple morphologies suggestive of multifocal atrial tachycardia. - NSR this morning with a rate 60-80, no longer on tele Cardiology was consulted: recommended changing from metoprolol succinate 25 qam to tartrate 25mg BID Mild hs trop elevation, peaked in the 90s, does have end-stage renal disease on peritoneal dialysis. Continue Eliquis 2.5 BID Will discharge patient on metoprolol tartrate 25mg BID. Follow up with cards. Continue Eliquis 2.5 BID. Aortic Stenosis (moderate) Previous ECHO showed mild . Most recent ECHO shows moderate - murmur on PE with palpable radial thrill. Follow with cards outpatient. Chest Pain - resolved - Etiology could be due to tachycardia, pain resolved improved with rate control ESRD on daily peritoneal dialysis Missed 07/11/22 dialysis session, nephro was consulted during her hospital stay. - Continue with daily PD at home Hypokalemia Patient was hypokalemic during her stay. Discharged home with 20 mEq of K QD per nephro recs. F/u BMP 07/16. Lasix was held in the setting of hypokalemia, can resume upon discharge at home dose. Anemia - most likely secondary to CKD - dose of Epogen per nephrology recommendations CAD/hypertension Continue metoprolol, isosorbide mononitrate, atorvastatin, Plavix, furosemide HFpEF Hold home PO lasix 80mg PO daily for now given the hypokalemia, resume upon discharge -EF 60-65% DM2 Hold home regimen Sliding scale with basal while admitted, restart home regimen upon discharge DVT prophylaxis: Anticoagulated on Eliquis Diet: Heart healthy, DM2, dialysis renal diet Dispo: home CODE STATUS: Full (2) Type 2 diabetes mellitus: (3) ESRD needing dialysis: (4) Hyperlipidemia: (5) CAD (coronary artery disease): (6) Hypertension: (7) Chronic heart failure with preserved ejection fraction (HFpEF): Total Time Total Time Spent Total Time Spent (In Minutes): <30 Discharge Plan Discharge Items Patient Disposition: Home - Self-Care Reason For Visit: AFIB W/ RVR Discharge Diagnosis: Chest Pain Activity: Per Instructions section Non-emergency contact: Primary Care Provider and Unit Receptionist Call non-emergency contact if: you have any medication questions and your symptoms worsen Follow-up/Referrals: Elizabeth Schreiber MD [Primary Care Provider] - Diet: Dialysis Renal, Heart Healthy and Low Sodium (2gm) Addtl Attending Provider Instructions: Atrial fibrillation -The main thing that brought her to the hospital was fast heart rates related to atrial fibrillation. As we discussed, A. fib is a very common diagnosis as we get olderit generally happens because the conduction system in our atria start to wear out. The atria the top part of the heartthere is where the electrical signal for each heartbeat initially gets generated. That signal gets transmitted through wires in the atria, slowed down for a moment, and then 3 wires in the ventriclescreating a nice "beatbeat" with the top part of her heart beating first, and the bottom part bleeding second. With atrial fibrillation, the wiring in the top part of the heart starts to wear out. Fortunately, as a failsafe, we are built so that all cardiac muscle cells can transmit electricity. However, whenever the wiring is wearing out, this will occur by electricity jumping from cell to cell, rather than in a more coordinated fashion. This allows the atria to quiver, and that in turn sends many more signals per seconds to the ventricles then with a normal rhythm. This what then leads to the heart racing. Fortunately yours was extremely easy to controlwith just a small increase in the metoprolol from daily to twice a day. -Generally speaking, these atrial rhythm problems do often show some degree of progression just from aging and "wear and tear"there was not much of anything that really was truly an inciting factor. The discussion about your potassium being a bit low does relate to this, however, as low potassium can allow somebody's heart to race a bit more easily. Fortunately, again, your heart rate was very easy to control. -We will have you take the metoprolol twice a day for the foreseeable future. As you follow-up with Dr. Knott/Nehemias in the office, they will adjust the medication if needed. Low potassium -As we discussed, normally we have to be careful with a patient on dialysis when we replace potassium, as it is often the case that "a little goes a long way" and people retain more potassium than someone not on dialysis. Thus far, that has not been the case with youhowever, as we continue to replace your potassium we will go slowlydoing a much lower dose than we would if you had normal kidney functionand we would have you get repeat lab work (basic metabolic panelBMP) on Saturday. -For now, continue to take potassium 20 mill equivalents daily and then get lab work Saturday as above noted Chest pain -As we discussed, with your heart racing fairly fast, persistently, hereand certainly racing for a while before coming to the hospital, it more or less function as a "very long stress test". -Despite your heart going quite fast for quite long, your troponin levels showed only a nominal degree of elevation at worstwhich is far more consistent with a heart going fast than a heart lacking blood flow. Further, the echocardiogram did not show any findings consistent with a heart attack or lack of blood flow. -As we discussed, the chest pain was most likely 2 things: Your aortic valve is moderately tight, and frequently when her heart is racing and pushing against a somewhat tight valve, that can create chest pain. Also, when her heart is racing fairly fast it does not always have enough time to fill with blood, creating a little bit of traffic jam of blood/fluid into our lungs, which can also create chest pain like you are feeling. Further, today your chest pain actually appeared to be related to your rib cage/thoracic muscleswhich probably was subsequent to your breathing and overall tension while your heart was racingbut fortunately none of the causes of chest pain were due to blockage to your heart muscle/lack of blood flow. Follow-up with Dr. Knott in 1-2 weeks to make sure things are going well / heart rates have been good, you're tolerating the slight increase in metoprolol well have labwork checked Saturday with results to Dr Sandoval and Dr Knott for your potassium (basic metabolic panel, BMP) Pending Studies at Discharge: No Stand-Alone Forms: My [facility], Smoking Cessation Medications and DC Order Prescriptions: New metoprolol tartrate 25 mg Tablet 25 mg PO BID Qty: 60 0RF potassium chloride 20 mEq tablet extended release 20 meq PO DAILY Qty: 30 0RF Continued isosorbide mononitrate 60 mg tablet extended release 24 hr 60 mg PO QAM Qty: 90 3RF dicyclomine 10 mg capsule 10 mg PO TID PRN (Reason: Abdominal Discomfort) Qty: 90 2RF allopurinol [Zyloprim] 100 mg tablet 100 mg PO QAM Qty: 90 3RF (DME) OneTouch Ultra Test Strip See Rx Instructions .Route Qty: 300 3RF Rx Instructions: Test Blood Sugars Three Times a Day clopidogrel [Plavix] 75 mg tablet 75 mg PO QAM Qty: 90 3RF Rx Instructions: Brand name only nifedipine [Procardia XL] 60 mg tablet extended release 24hr 60 mg PO QAM calcitriol 0.25 mcg capsule 0.25 mcg PO QAM Eliquis 2.5 mg Tablet 2.5 mg PO BID Qty: 60 0RF atorvastatin [Lipitor] 40 mg tablet 80 mg PO QAM furosemide 80 mg tablet 80 mg PO QAM insulin glargine [Lantus Solostar U-100 Insulin] 100 unit/mL (3 mL) insulin pen 10 unit SUBCUT BID [id number]-fish oil-vit D3 [Fish Oil-Vit D3] 300-1,000-1,000 mg-mg-unit Capsule 1 cap PO QAM hydralazine 50 mg tablet 50 mg PO TID insulin lispro 100 unit/mL Insulin Pen 10 unit SUBCUT QAM Discontinued metoprolol succinate 25 mg tablet extended release 24 hr 25 mg PO QAM Discharge Orders: Discharge Order (Routine); Ordered 07/14/22 Ordered By: Jesus Manuel Flores Admission Data Admit Date/Time: 07/12/22 01:54 Attending Provider: Jesus Manuel Flores Admit Provider: Bipin Rodríguez Primary Care Provider: Elizabeth Schreiber Other Providers: Remberto Duarte ; Matthew Baer ; Adriel Alcazar ; Chris Ortiz ; Terry Rogers ; Luis Aparicio ; Dionisio Knott Jr ; Kayode Del Cid ; Violeta Arredondo ; Daniela Huffman ; Samuel Mercer ; Luis Alberto Wilson ; Homero Helms ; Natalie Gomez ; Becky Amin ; Markie Ferris ; Aaron Fry ; David Barajas ; Terry Larios V. ; Rafael Cuevas Other Interventions: Discharge Summary Assessment (RN) Last Done: 07/14/22 16:47 Supervising Physician Co-Signing Physician Notes I personally examined the patient and verified all andrews points of history and exam, discussed case, and agree with decision making with Dr Bonner no new problems, feels up to going home. Discussed diagnoses. Answered all questions to the best my ability. viatls noted nad heent nc at mmm breathing unlabored no accessory muscle use good effort. Rate now controlled. Chest wall pain reproducible with inter costal muscles fairly tight, thoracic paraspinal muscles fairly tightbalanced ligamentous tension and direct myofascial done with some improvement. Tachyarrhythmiabeta-blockade. Rate controlled. Symptoms improved overall. Stable for transfer to medical, replace potassium, follow closely as outpatientlabs again on Saturday. Gentle OMT done for T-spine/rib somatic dysfunction otherwise as above Resident Activity Tracking Resident Involvement: Resident Care Provided Care Provided: Adult Hospital Medicine
[2022-07-14 14:47] LABS: HBSAG NON-REACTIVE (NON-REACTIVE); Hepatitis B Surface Ab, Quant <5 mIU/mL (> OR = 10)
--- NOTE | 2022-07-14 16:56 | Billing Data ---
Date of Service July 14, 2022 Coding Level of Care Code D/C DAY MANAGEMENT <30 MINS
== END 2022-07-14 16:00 | disposition home or self-care (01) | DRG 308 ==
LOC: ED 20:14 → SUATTDRO 07-12 01:54 → 2S 07-12 01:54 → 3W 07-13 18:32

== ENCOUNTER 2022-11-08 22:40 | Inpatient (IN) ==
--- NOTE | 2022-11-08 23:23 | Emergency Department Note ---
Impression & Plan Breath shortness, Peritoneal dialysis status, Edema, Anemia ED Provider Note NAME: CAMPOS CRAWFORD AGE: 72 SEX: F : 1950 ARRIVES VIA: Ambulance INFORMANT: Patient ED PROVIDER(S): Jesus Manuel Madrid DO CHIEF COMPLAINT: shortness of breath HPI: Patient is a 72-year-old female who presents to the ER for shortness of breath. She has a past medical history of paroxysmal A. fib, aortic stenosis, end-stage renal disease on PD who presents to the ER for shortness of breath. She does take her Eliquis. She notes that they changed her PD fluid on Saturday. On Saturday she started with shortness of breath. Worse with laying down. She is noticing swelling in the bilateral lower extremities. No belly pain, nausea, vomiting, or diarrhea. She still makes a small amount of urine. No other exacerbating or remitting factors. PAST MEDICAL HISTORY:See Below PAST SURGICAL HISTORY:See Below FAMILY HISTORY:See Below SOCIAL HISTORY:See Below HOME MEDICATIONS:See Below ALLERGIES:See Below VITALS:See Below PHYSICAL EXAMINATION: GENERAL: Sitting up in bed, alert, well appearing, well nourished, no distress, non-toxic EYE EXAM: normal conjunctiva. OROPHARYNX: no exudate, no erythema, lips, buccal mucosa, and tongue normal and mucous membranes are moist NECK: supple, no nuchal rigidity, no adenopathy, non-tender LUNGS: Diminished at the bases. Normal chest wall mechanics HEART: no murmurs, S1 normal and S2 normal ABDOMEN: abdomen soft, non-tender, normo-active bowel sounds, no masses, no rebound or guarding. UPPER EXTREMITIES: upper extremities are grossly normal. LOWER EXTREMITIES: Pitting edema in the bilateral lower extremities NEURO EXAM: Normal sensorium, cranial nerves II-XII grossly intact, normal speech, no gross weakness of arms, no gross weakness of legs. MEDICAL DECISION MAKING: Patient is a 72-year-old female who presents the ER for shortness of breath and swelling in the legs. IV was established blood was obtained. Patient was found to be hypoxic and placed on 2 L nasal cannula. IV was established blood work was obtained. Labs show mild leukocytosis 18,000. Persistent anemia at 8.3. BMP with mild hyponatremia 132. Creatinine 8.2 with mild anion gap of 17. Troponin elevated likely secondary to the CKD. Lipase is normal. No belly pa in. No fevers. Uncertain of the true cause of leukocytosis. Chest x-ray was unremarkable. External records were reviewed. Patient was covered with 2 g Rocephin to be on the safe side discussed with Ernestina Walker for further evaluation. Triage Nursing notes reviewed. Limited review of prior medical records performed Vital Signs: reviewed and remarkable for no significant abnormalities Differential diagnosis: Differential diagnoses includes but is not limited to gastritis, peptic ulcer disease, GERD, gallbladder disease, pancreatitis, small bowel obstruction, appendicitis, diverticulitis, hernia, urinary tract infection, perforation, trauma, infectious. ER treatment provided: See below Diagnostics interpreted by me include EKG and cardiac monitoring as listed below: -Cardiac Monitoring: An order was placed for continuous cardiac monitoring. The monitor shows a rate of 80 with sinus rhythm. -ECG: Sinus rhythm rate 78 Left axis No PVCs T wave inversion in the high lateral leads QTC 471 -Laboratory studies:Interpreted by me as stated above in MDM and shown below. Imaging studies: Xrays: As interpreted by me: Portable AP upright 1 view of the chest Shows mild cephalization CTs show: none Consultation(s): Discussed with Ernestina Walker for further evaluation in regards to the patient's presentation and work-up Procedures:none Critical Care: I have personally spent 32 minutes of critical care time in the direct management of this patient. This includes bedside care, interpretation of diagnostic studies, and testing, discussion with consultants, patient, and family members, and other required patient management activities. This 32 minutes is in excess of all separately billable procedures. Past Med/Surg History Medical History Abdominal pain Anemia due to chronic kidney disease Atrial fibrillation CAD (coronary artery disease) Carotid artery disease Chronic back pain Chronic heart failure with preserved ejection fraction (HFpEF) Deep vein thrombosis (~05/2021) Degenerative disc disease Diabetes mellitus, type 2 Hemodialysis patient History of stent insertion of renal artery Hyperlipidemia Hypertension Lymphedema Obesity Osteoarthritis Renal artery stenosis Status post myocardial infarction Subclavian artery stenosis Surgical History H/O heart artery stent History of cardiac cath History of colonoscopy History of esophagogastroduodenoscopy (EGD) S/P arteriovenous (AV) fistula creation S/P epidural steroid injection Family History Other Hypertension No family history of adverse response to anesthesia Social History Smoking Status: Smoker, status unknown Second Hand Exposure: Yes (hx); Hx Alcohol Use: No Hx Substance Use: No Preferred Language: Lithuanian Communication Ability: Effective Visual Impairment: No Limitations Customer Experience Intern Required: No Beliefs That Will Affect Care: None marital status: Single Current Living Situation: Family Current Living Situation Comment: Grandson How many Children do You have: 2 Feels Safe at Home: Yes Assistive Devices: Walker Allergies Allergies Allergy/AdvReac Type Severity Reaction Status Date / Time heparin Allergy Intermediate Hives Verified 07/26/22 11:31 insulin aspart Allergy Intermediate Hives Verified 07/26/22 11:31 [From Novolog U-100 Insulin aspart] meperidine AdvReac Intermediate hallucinate Verified 07/26/22 11:31 s lisinopril AdvReac Mild COUGHING Verified 07/26/22 11:31 Home Meds Home Medications Medication Instructions Recorded Confirmed calcitriol 0.25 mcg capsule 0.25 mcg PO QAM 11/25/21 11/08/22 insulin glargine 100 unit/mL (3 10 unit subcut BID 04/09/22 11/09/22 mL) subcutaneous pen (Lantus Solostar U-100 Insulin) insulin lispro 100 unit/mL 10 unit subcut QAM 07/11/22 11/09/22 subcutaneous pen atorvastatin 80 mg tablet 80 mg PO QAM 11/08/22 11/08/22 metoprolol tartrate 25 mg tablet 25 mg PO BID 11/08/22 11/08/22 vit B complx, C-iron 8 mg-folic 1 tab PO DAILY 11/08/22 11/08/22 acid 800 mcg-D3 1,000 unit-zinc tablet (ProRenal) nifedipine 60 mg tablet,extended 60 mg PO . SEE BELOW 11/09/22 11/09/22 release 24 hr (Procardia XL) Previous Rx's Medication Instructions Recorded isosorbide mononitrate 60 mg 60 mg PO QAM #90 tabs 10/24/21 tablet,extended release 24 hr dicyclomine 10 mg capsule 10 mg PO TID PRN Abdominal 10/31/21 Discomfort #90 caps apixaban 2.5 mg tablet (Eliquis) 2.5 mg PO BID #60 tabs 12/03/21 allopurinol 100 mg tablet 100 mg PO QAM #90 tabs 05/01/22 (Zyloprim) OneTouch Ultra Test (blood sugar #300 ea 06/18/22 diagnostic) diphenoxylate-atropine 2.5 1 tab PO BID PRN diarrhea #30 tabs 07/24/22 mg-0.025 mg tablet (Lomotil) flash glucose scanning reader #1 ea 08/03/22 (FreeStyle Makayla 2 [place]) flash glucose sensor (FreeStyle #2 ea 08/03/22 Makayla 2 Sensor kit) potassium chloride 20 mEq 20 meq PO DAILY #90 tabs 08/09/22 tablet,extended release clopidogrel 75 mg tablet (Plavix) 75 mg PO QAM #90 tabs 09/13/22 Results & Data (ED) Vital Signs Vital Signs - 24 hr 11/08/22 22:31 11/08/22 22:52 11/09/22 00:01 Temperature 36.7 C Temperature Source Oral Pulse Rate 84 86 Pulse Rate from SpO2 Sensor 79 Pulse Rhythm Regular Regular Pulse Strength Normal Respiratory Rate 16 20 Respiratory Effort / Characteristics Non-Labored Respiratory Depth Normal Blood Pressure 210/83 H 205/84 H Blood Pressure Mean 125 124 Pulse Oximetry 95 94 95 Oxygen Delivery Method Room Air Nasal Cannula Oxygen Flow Rate 4 Sepsis Recent Fever Within 48 Hours No Sepsis New/Unexplained Change in Mental Status N/A Sepsis Action Taken by Nursing No Action Required 11/09/22 00:02 11/09/22 00:30 Temperature Temperature Source Pulse Rate Pulse Rate from SpO2 Sensor 81 84 Pulse Rhythm Pulse Strength Respiratory Rate 20 Respiratory Effort / Characteristics Respiratory Depth Blood Pressure 189/85 H 161/67 H Blood Pressure Mean 119 98 Pulse Oximetry 96 97 Oxygen Delivery Method Oxygen Flow Rate Sepsis Recent Fever Within 48 Hours Sepsis New/Unexplained Change in Mental Status Sepsis Action Taken by Nursing Laboratory Data 11/08/22 23:50 11/08/22 23:50 Lab Results 11/08/22 11/08/22 Range/Units 23:50 23:50 WBC 18.35 H (4.8-10.8) K/ul RBC 2.74 L (3.93-5.22) M/uL Hgb 8.3 L (12.0-16.0) g/dl Hct 25.3 L (34.1-44.9) % MCV 92.3 (80.0-100.0) fL MCH 30.3 (25.0-34.0) pg MCHC 32.8 (32.0-36.0) g/dL RDW Std Deviation 54.8 H (36.4-46.3) fL RDW Coeff of Ekaterina 16.2 H (11.5-14.5) % Plt Count 338 (130-400) K/uL MPV 11.2 (9.4-12.3) fL Immature Gran % (Auto) 0.9 % Neut % (Auto) 87.4 % Lymph % (Auto) 5.1 % [place] % (Auto) 4.9 % Eos % (Auto) 1.3 % Baso % (Auto) 0.4 % Neut # (Auto) 16.04 H (1.4-6.5) K/uL Lymph # (Auto) 0.93 L (1.2-3.4) K/uL [place] # (Auto) 0.89 H (0.24-0.82) K/uL Eos # (Auto) 0.24 (0-0.50) K/uL Baso # (Auto) 0.08 (0-0.2) K/uL Immature Gran # (Auto) 0.17 H (0.00-0.02) K/uL Sodium 132 L (136-145) mmol/L Potassium 4.0 (3.5-5.1) mmol/L Chloride 93 L (98-107) mmol/L Carbon Dioxide 22 (21-32) mmol/L Anion Gap 17 H (3-11) BUN 63 H (6-23) mg/dl Creatinine 8.20 H* (0.6-1.2) mg/dl Est Cr Clr Drug Dosing 6.3 ml/min Est GFR ( Amer) 5.1 ml/min Est GFR (Non-Af Amer) 4.4 ml/min BUN/Creatinine Ratio 7.7 L (10-20) Glucose 279 H (70-99(Fasting)) mg/dl Calcium 8.2 L (8.5-10.1) mg/dl Total Bilirubin 0.3 (0.2-1.0) mg/dl AST 27 (13-39) U/L ALT 23 (7-52) U/L Alkaline Phosphatase 149 H (34-104) U/L Troponin I High Sens 413.3 H* (0-14) pg/ml Total Protein 6.9 (6.0-8.3) gm/dl Albumin 2.9 L (3.4-5.0) gm/dl Globulin 4.0 (2.5-4.0) gm/dl Albumin/Globulin Ratio 0.7 L (0.9-2) Lipase 53 (11-82) U/L Administered Medications Discontinued Medications Apixaban (Apixaban 2.5 Mg Tab) 2.5 mg PO ONE STA Stop: 11/09/22 00:17 Last Admin: 11/09/22 00:29 Dose: Not Given Documented By: WILLIAM Hydralazine HCl (Hydralazine Hcl 20 Mg/Ml Vial) 5 mg IV NOW STA Stop: 11/09/22 00:13 Last Admin: 11/09/22 00:23 Dose: 5 mg Documented By: WILLIAM Discharge Plan Visit Data Chief Complaint: Shortness of Breath/Dyspnea Stated Complaint: FLUID RETENTION/SHORT OF BREATH ED Provider: Jesus Manuel Madrid Discharge Problem: Breath shortness, Peritoneal dialysis status, Edema, Anemia Forms Stand Alone Forms: My [facility] [place] [employer] Prescriptions Prescriptions: No Action isosorbide mononitrate 60 mg tablet extended release 24 hr 60 mg PO QAM Qty: 90 3RF dicyclomine 10 mg capsule 10 mg PO TID PRN (Reason: Abdominal Discomfort) Qty: 90 2RF allopurinol [Zyloprim] 100 mg tablet 100 mg PO QAM Qty: 90 3RF (DME) OneTouch Ultra Test Strip See Rx Instructions .Route Qty: 300 3RF Rx Instructions: Test Blood Sugars Three Times a Day potassium chloride 20 mEq tablet extended release 20 meq PO DAILY Qty: 90 3RF clopidogrel [Plavix] 75 mg tablet 75 mg PO QAM Qty: 90 3RF Rx Instructions: Brand name only (DME) FreeStyle Makayla 2 [place] Misc See Rx Instructions .MEDSUPPLY Qty: 1 0RF Rx Instructions: As directed (DME) FreeStyle Makayla 2 Sensor Kit See Rx Instructions .MEDSUPPLY Qty: 2 11RF Rx Instructions: As directed to check blood sugars diphenoxylate-atropine [Lomotil] 2.5-0.025 mg tablet 1 tab PO BID PRN (Reason: diarrhea) Qty: 30 3RF calcitriol 0.25 mcg capsule 0.25 mcg PO QAM Eliquis 2.5 mg Tablet 2.5 mg PO BID Qty: 60 0RF insulin glargine [Lantus Solostar U-100 Insulin] 100 unit/mL (3 mL) insulin pen 10 unit SUBCUT BID Rx Instructions: pt taking prn...hasnt been needing much lately insulin lispro 100 unit/mL Insulin Pen 10 unit SUBCUT QAM Rx Instructions: pt taking prn..hasnt been needing much lately metoprolol tartrate 25 mg tablet 25 mg PO BID ProRenal 8 mg iron-800 mcg-1,000 unit tablet 1 tab PO DAILY atorvastatin 80 mg tablet 80 mg PO QAM nifedipine [Procardia XL] 60 mg tablet extended release 24hr 60 mg PO . SEE BELOW Rx Instructions: pt realized she doesnt have this med..thinks she may be supposed to be taking it ? Referrals Referrals: PCP,NO [Physician] -
[2022-11-08 23:57] LABS: Basophils # (auto) 0.08 K/uL (0-0.2); Basophils % (auto) 0.4 %; Eosinophils # (auto) 0.24 K/uL (0-0.50); Eosinophils % (auto) 1.3 %; Hematocrit (blood only) 25.3 % (34.1-44.9); Hemoglobin 8.3 g/dl (12.0-16.0); Immature Granulocytes # (auto) 0.17 K/uL (0.00-0.02); Immature Granulocytes % (auto) 0.9 %; Lymphocytes # (auto) 0.93 K/uL (1.2-3.4); Lymphocytes % (auto) 5.1 %; Mean Corpuscular Hemoglobin 30.3 pg (25.0-34.0); Mean Corpuscular Hgb Conc 32.8 g/dL (32.0-36.0); Mean Corpuscular Volume 92.3 fL (80.0-100.0); Mean Platelet Volume 11.2 fL (9.4-12.3); Monocytes # (auto) 0.89 K/uL (0.24-0.82); Monocytes % (auto) 4.9 %; Neutrophils # (auto) 16.04 K/uL (1.4-6.5); Neutrophils % (auto) 87.4 %; Platelet Count 338 K/uL (130-400); RDW Coefficient of Variation 16.2 % (11.5-14.5); RDW Standard Deviation 54.8 fL (36.4-46.3); Red Blood Count 2.74 M/uL (3.93-5.22); White Blood Count 18.35 K/ul (4.8-10.8)
--- NOTE | 2022-11-09 00:07 | History & Physical Report ---
Date of Service November 08, 2022 Assessment & Plan (1) Breath shortness: Plan: 72yo female with a history of ESRD (on peritoneal dialysis), paroxysmal atrial fibrillation, HTN, HLD, CAD (s/p stent), T2DM, HFpEF, aortic stenosis, anemia of chronic disease, and gout presents with a few-day history of SOB and LE edema. Shortness of breath, LE edema, ESRD on dialysis Patient presents with SOB and LE edema in the setting of ESRD on nightly peritoneal dialysis Initial vitals were notable for elevated BP (180-220s/80s) Initial labs were notable for leukocytosis (18.4), anemia (8.3), mild hyponatremia (132), AG (17), elevated creatinine (8.2 - baseline ~5-6), elevated alkphos (149), and elevated hsTroponin (as noted below) Suspect symptoms are secondary to a worsening of renal failure Nephrology consulted Lasix 20mg IV (x1) administered Procalcitonin pending Trend CBC, BMP Elevated troponin c/f NSTEMI On admission, hsTroponin elevated to 413, repeat value 663 EKG: NSR, no overt sign of ischemic change Patient without CP at this time Will continue patient's home eliquis given that patient has a reported hives reaction to heparin Cardiology consulted Echo ordered Trend hsTroponin q2h until peak & fall DM2 HbA1c 6.0% (01/2022), repeat value ordered Patient's home regimen held on admission Continue BSG checks, sliding-scale insulin, hypoglycemic protocol pAF: home eliquis HFpEF: home metoprolol, hold home lasix HTN: home nifedipine, metoprolol HLD, CAD s/p stent: home clopidogrel, atorvastatin, imdur Gout: home allopurinol FEN: NPO pending possible catheterization Code status: DNI (chest compressions OK, defibrillation OK) DVT ppx: home eliquis Consults: nephrology, cardiology PT/OT: ordered Dispo: med/telemetry (2) Acute kidney injury superimposed on CKD: (3) Acute on chronic diastolic (congestive) heart failure: (4) Anemia due to chronic kidney disease: (5) Antiplatelet or antithrombotic long-term use: (6) Aortic stenosis: (7) Atrial fibrillation: (8) CAD (coronary artery disease): (9) Elevated troponin: (10) ESRD on peritoneal dialysis: (11) Gout attack: (12) H/O heart artery stent: (13) Hyperlipidemia: (14) Hypertension: (15) Paroxysmal atrial fibrillation: (16) Peritoneal dialysis status: (17) Type 2 diabetes mellitus: History of Present Illness Primary Care Provider: NO PCP 72yo female with a history of ESRD (on peritoneal dialysis), paroxysmal atrial fibrillation, HTN, HLD, CAD (s/p stent), IDDM2, HFpEF, aortic stenosis, anemia of chronic disease, and gout presents with a few-day history of SOB and LE [place] a. Symptoms started gradually. Patient notes associated nausea and vomiting about once per day over the past three days. Patient is still making a small amount of urine. Patient denies fever, chills, vision changes, CP, abdominal pain, hematochezia, melena, lightheadedness, dizziness, numbness, tingling, or other symptoms. Denies recent illness and recent travel. Upon arrival, vitals were notable for elevated BP (180-220s/80s); no tachycardia, no tachypnea, patient afebrile, spO2 adequate on 4L NC. Initial labs were notable for leukocytosis (18.4), anemia (8.3), mild hyponatremia (132), AG (17), elevated creatinine (8.2 - baseline ~5-6), elevated alkphos (149), and elevated hsTroponin (413); platelets wnl, Tbili not elevated. EKG: NSR, LVH, no overt ischemic change Surrogate decision-maker in case of an emergency: virginie Mcnulty (cell: [phone]) Allergies Allergy/AdvReac Type Severity Reaction Status Date / Time heparin Allergy Intermediate Hives Verified 07/26/22 11:31 insulin aspart Allergy Intermediate Hives Verified 07/26/22 11:31 [From Novolog U-100 Insulin aspart] meperidine AdvReac Intermediate hallucinate Verified 07/26/22 11:31 s lisinopril AdvReac Mild COUGHING Verified 07/26/22 11:31 Home Medications Medication Instructions Recorded Confirmed Type isosorbide mononitrate 60 mg 60 mg PO QAM #90 tabs 10/24/21 11/08/22 Rx tablet,extended release 24 hr dicyclomine 10 mg capsule 10 mg PO TID PRN Abdominal 10/31/21 11/08/22 Rx Discomfort #90 caps calcitriol 0.25 mcg capsule 0.25 mcg PO QAM 11/25/21 11/08/22 History apixaban 2.5 mg tablet (Eliquis) 2.5 mg PO BID #60 tabs 12/03/21 11/08/22 Rx insulin glargine 100 unit/mL (3 10 unit subcut BID 04/09/22 11/09/22 History mL) subcutaneous pen (Lantus Solostar U-100 Insulin) allopurinol 100 mg tablet 100 mg PO QAM #90 tabs 05/01/22 11/08/22 Rx (Zyloprim) OneTouch Ultra Test (blood sugar #300 ea 06/18/22 11/09/22 Rx diagnostic) insulin lispro 100 unit/mL 10 unit subcut QAM 07/11/22 11/09/22 History subcutaneous pen diphenoxylate-atropine 2.5 1 tab PO BID PRN diarrhea #30 tabs 07/24/22 11/08/22 Rx mg-0.025 mg tablet (Lomotil) flash glucose scanning reader #1 ea 08/03/22 11/09/22 Rx (FreeStyle Makayla 2 [place]) flash glucose sensor (FreeStyle #2 ea 08/03/22 11/09/22 Rx Makayla 2 Sensor kit) potassium chloride 20 mEq 20 meq PO DAILY #90 tabs 08/09/22 11/08/22 Rx tablet,extended release clopidogrel 75 mg tablet (Plavix) 75 mg PO QAM #90 tabs 09/13/22 11/08/22 Rx atorvastatin 80 mg tablet 80 mg PO QAM 11/08/22 11/08/22 History metoprolol tartrate 25 mg tablet 25 mg PO BID 11/08/22 11/08/22 History vit B complx, C-iron 8 mg-folic 1 tab PO DAILY 11/08/22 11/08/22 History acid 800 mcg-D3 1,000 unit-zinc tablet (ProRenal) nifedipine 60 mg tablet,extended 60 mg PO . SEE BELOW 11/09/22 11/09/22 History release 24 hr (Procardia XL) Past Med/Surg History Medical History Abdominal pain Ongoing -- following with [facility]. Anemia due to chronic kidney disease Atrial fibrillation Occurred during hospital stay in [facility] ~2020. Treated with medication at the time. No problems since. Follows with Dr. Knott CAD (coronary artery disease) S/p stent to LCx 2009 and RCA in 2018 Carotid artery disease Carotid duplex 08/19/2018 = 5059% stenosis on the right internal carotid artery. No significant stenosis in the left internal carotid artery. Chronic back pain Significant x 2 years Has seen pain management - s/p epidural injections- only lasted 6 weeks for pain relief Chronic heart failure with preserved ejection fraction (HFpEF) Deep vein thrombosis (~05/2021) Unknown cause Degenerative disc disease Diabetes mellitus, type 2 IDDM Glucose stable and controlled per patient Hemodialysis patient Diaylsis in [place]: Saturday, Saturday, Saturday through [facility] History of stent insertion of renal artery 2013 Hyperlipidemia Hypertension Lymphedema Obesity Osteoarthritis Renal artery stenosis S/p renal stent 2013 Status post myocardial infarction Subclavian artery stenosis Per 08/19/18 carotid duplex- Normal flow in the innominate and right subclavian arteries. >50% stenosis of the proximal left subclavian artery with retrograde flow in the left vertebral artery and >40 mmHg difference in brachial systolic pressures (right >left). Surgical History H/O heart artery stent x2, last stent placed ~2016. History of cardiac cath x2, most recent done about 5 years ago in [place]. History of colonoscopy History of esophagogastroduodenoscopy (EGD) S/P arteriovenous (AV) fistula creation right (Dr Hayes) 12/2021 S/P epidural steroid injection Family History Other Hypertension No family history of adverse response to anesthesia Social History Smoking Status: Never smoker Second Hand Exposure: No; Hx Alcohol Use: No Hx Substance Use: No Preferred Language: Thai Communication Ability: Effective Visual Impairment: No Limitations Psych Sales Specialist Required: No Beliefs That Will Affect Care: None marital status: Single Current Living Situation: Family Current Living Situation Comment: lives with grandson How many Children do You have: 2 Feels Safe at Home: Yes Assistive Devices: Glasses Physical Exam Physical Exam: Constitutional: well-appearing, no acute distress HEENT: NCAT, no conjunctival injection CV: regular rhythm, no murmur appreciated, extremities well-perfused, 2+ LE pitting edema bilaterally Resp: CTABL, no wheezes/rales/rhonchi appreciated, no increased work of breathing GI: soft, nondistended, nontender, BS normoactive Neuro: alert, oriented, no focal neurologic deficit appreciated Supervising Physician Co-Signing Physician Notes Patient seen and examined, chart reviewed, case discussed with Dr. Madrigal and I agree with the assessment and plan as above. In brief, patient is a 72yo female with ESRD on PD, PAF, HTN, HLP, CAD presenting with progressive dyspnea and edema. On exam she is afebrile, HD stable, NAD HEENT - NC/AT, PERRL, MMM Heart - +S1/S2, regular, no m/r/g Lungs - CTA with diminished in bases Abd - +BS, soft, NT/ND, PD port sites with no erythema, edema or drainage Ext - +edema Labs and images reviewed Assessment/Plan - 72yo female with ESRD on PD presenting with progressive edema and SOB -Lasix given -Nephrology consulted, ?need to change PD parameters -Remainder as above Resident Activity Tracking Resident Involvement: Resident Care Provided and Principal Solutions Architect Coverage Note Care Provided: Adult Hospital Medicine (1) CAD (coronary artery disease) Associated angina: without angina Coronary Disease-Associated Artery/Lesion type: [place] artery [place] vs. transplanted heart: [place] heart Qualified Code(s): I25.10 - Atherosclerotic heart disease of [place] coronary artery without angina pectoris (2) Hyperlipidemia Hyperlipidemia type: unspecified Qualified Code(s): E78.5 - Hyperlipidemia, unspecified (3) Hypertension Hypertension type: essential hypertension Qualified Code(s): I10 - Essential (primary) hypertension
[2022-11-09] MEDS ORDERED: hydrALAZINE HCL 20 MG/ML VIAL IV STA (00:12)
[2022-11-09] MEDS ORDERED: GLUCOSE 40% GEL 15 GM TUBE PO PRN (00:15)
[2022-11-09] MEDS ORDERED: GLUCOSE 10 TAB/TUBE PO PRN (00:15)
[2022-11-09] MEDS ORDERED: DEXTROSE 50% 50 ML SYRINGE IV PRN (00:15)
[2022-11-09] MEDS ORDERED: GLUCAGON FOR INJ 1 MG VIAL SQ PRN (00:15)
[2022-11-09] MEDS ORDERED: CARBOHYDRATES FOR HYPOGLYCEMIA PO PRN (00:15)
[2022-11-09] MEDS ORDERED: APIXABAN 2.5 MG TAB PO STA (00:16)
[2022-11-09 00:27] LABS: Albumin Globulin Ratio 0.7 (0.9-2); Albumin Level 2.9 gm/dl (3.4-5.0); BUN Creatinine Ratio 7.7 (10-20); Bilirubin,Total 0.3 mg/dl (0.2-1.0); Calcium 8.2 mg/dl (8.5-10.1); Creatinine Clr Calc Pharmacy 6.3 ml/min; Est GFR (African American) 5.1 ml/min; Est GFR (Non-African American) 4.4 ml/min; Total Protein 6.9 gm/dl (6.0-8.3); Troponin I High Sensitivity 413.3 pg/ml (0-14)
[2022-11-09 02:14] LABS: Influenza A virus by PCR Negative (Neg); Influenza B virus by PCR Negative (Neg); RSV by PCR Negative (Neg); SARS CoV2 RNA(COVID-19) Ceph NEGATIVE (Negative)
[2022-11-09 02:28] LABS: Hematocrit (blood only) 29.2 % (34.1-44.9); Hemoglobin 9.8 g/dl (12.0-16.0); Mean Corpuscular Hemoglobin 30.7 pg (25.0-34.0); Mean Corpuscular Hgb Conc 33.6 g/dL (32.0-36.0); Mean Corpuscular Volume 91.5 fL (80.0-100.0); Mean Platelet Volume 11.1 fL (9.4-12.3); Platelet Count 308 K/uL (130-400); RDW Coefficient of Variation 15.9 % (11.5-14.5); RDW Standard Deviation 53.2 fL (36.4-46.3); Red Blood Count 3.19 M/uL (3.93-5.22); White Blood Count 20.67 K/ul (4.8-10.8)
[2022-11-09 02:42] LABS: INR 1.1 (0.9-1.1); Prothrombin Time 11.8 Seconds (9.0-12.0)
[2022-11-09] MEDS ORDERED: FUROSEMIDE INJ 20 MG/2 ML VIAL IV STA (03:00)
[2022-11-09 03:08] LABS: Albumin Globulin Ratio 0.7 (0.9-2); Albumin Level 2.7 gm/dl (3.4-5.0); BUN Creatinine Ratio 7.6 (10-20); Bilirubin,Total 0.3 mg/dl (0.2-1.0); Calcium 8.5 mg/dl (8.5-10.1); Creatinine Clr Calc Pharmacy 6.1 ml/min; Est GFR (African American) 4.9 ml/min; Est GFR (Non-African American) 4.3 ml/min; Magnesium 1.4 mg/dl (1.7-2.4); Phosphorus 7.3 mg/dl (2.5-4.9); Potassium 3.6 mmol/L (3.5-5.1); Total Protein 6.7 gm/dl (6.0-8.3)
[2022-11-09] MEDS ORDERED: ONDANSETRON INJ 2 MG/ML 2 ML VIAL ONE (04:12)
--- NOTE | 2022-11-09 06:49 | XRay Report ---
XR chest 1V portable CLINICAL HISTORY: Chest pain, nonspecific COMPARISON STUDY: Chest radiograph July 11, 2022. FINDINGS: There is no pneumothorax. Cardiomegaly is unchanged. Blunting of left costophrenic angle is likely due to epicardial fat pad or a trace left pleural effusion. There is no consolidation to sugg est pneumonia. There is no evidence for overt pulmonary edema. IMPRESSION: No acute cardiopulmonary findings. Cardiomegaly. ACT 112: Negative or not required by law. Electronically signed by: Fransico Headley M.D. 11/09/2022 6:47 AM
[2022-11-09] MEDS: APIXABAN 2.5 MG TAB PO SCH ×2 (08:33→21:32)
[2022-11-09] MEDS: allopurinoL 100 MG TAB PO SCH (08:33)
[2022-11-09] MEDS: CLOPIDOGREL BISULFATE 75 MG TAB PO SCH (08:34)
[2022-11-09] MEDS: ATORVASTATIN 40 MG TAB PO SCH (08:34)
[2022-11-09] MEDS: ISOSORBIDE MONO EXTENDED REL 60 MG TABCR PO SCH (08:35)
[2022-11-09] MEDS: METOPROLOL TARTRATE 25 MG TAB PO SCH ×2 (08:35→22:43)
--- NOTE | 2022-11-09 10:26 | XCELERA ---
[id number] \\[id number]
[2022-11-09] MEDS: MAGNESIUM SULFATE / D5W 1 GM/100 ML BAG IV SCH ×3 (10:36→17:55)
[2022-11-09] MEDS: INSULIN ASPART PER UNIT SC SCH ×4 (10:37→23:54)
--- NOTE | 2022-11-09 10:52 | Cardiology Consultation ---
Date of Consultation November 09, 2022 Assessment & Plan (1) Breath shortness: (2) Chronic heart failure with preserved ejection fraction (HFpEF): (3) CAD (coronary artery disease): (4) Elevated troponin: (5) Atrial fibrillation: (6) Anticoagulant long-term use: (7) Hypertension: (8) Aortic stenosis: Plan 1. Shortness of breath: She appears to have significant fluid retention, although her weight is not elevated based on prior measurements. I do not believe she can be diuresed, we probably have to rely on dialysis to remove fluid. Although her chest x-ray does not show pulmonary edema her BNP is elevated and I think she does have shortness of breath based on cogestive heart failure. 2. Congestive heart failure: She does not appear to have an acute myocardial infarction to suggest a cause for CHF. I believe it is fluid overload although her weight laura not increased substantially. Her left ventricular function remains normal and her wall motion is normal. She does have LVH and diastolic dysfunction. 3. Coronary disease: She has known coronary artery disease, although there could be progression I do not think it is the primary cause of her presentation and do not think we should evaluate it at this time. 4. Elevated troponin: Her troponin is elevated but it peaked at a little over 600 and is trending down on her most recent measurement. I suspect it is on the basis of congestive heart failure and demand ischemia and I do not think invasive evaluation is indicated at this time. 5. Atrial fibrillation: She has a history of paroxysmal atrial fibrillation but we have not identified that on this admission and it probably is not related to her presentation. 6. Anticoagulation: She is on Eliquis, she should remain on an anticoagulant. 7. Hypertension: For the most part she is hypertensive and she does have significant left ventricular hypertrophy. Better control of her blood pressure would probably be indicated over the long run. She is on relatively low-dose metoprolol and this could be increased. This might also help with rate control during atrial fibrillation. I will leave that up to the primary service and nephrology however. 8. Aortic stenosis: She does have significant and possibly progressive aortic stenosis, but still there is no indication for intervention at this time. History of Present Illness Reason for Consultation: CHF, elevated troponin Attending Physician: Eloina Cota MD History of Present Illness This is a 72-year-old woman who normally follows with Dr. Knott in our office and has a history of diabetes mellitus, hypertension (with left renal artery stent in 2013), dyslipidemia, end-stage kidney disease on dialysis. She also has a history of paroxysmal atrial fibrillation and known coronary artery disease (RCA stent September 2019, left circumflex stent August 2010) as well as moderate aortic stenosis. She presented July 12, 2022 with atrial fibrillation with a rapid ventricular rate although did not have a lot of palpitations, she did however have substernal chest discomfort and shortness of breath. Her troponin was elevated to around 90 but this was felt consistent with her presentation and demand ischemia. Her beta-blockade was increased and she remained on reduced dose Eliquis and was discharged on July 14, 2022. She presents now with symptoms of shortness of breath and lower extremity edema. Her blood pressure was significantly elevated in the emergency room and she has an elevated high-sensitivity troponin which was 413 on presentation and increased to 662 2-1/2 hours later. Her chest x-ray does not show pulmonary edema however her BNP was over 3000. Her electrocardiogram showed sinus rhythm with left ventricular hypertrophy and repolarization abnormalities but similar to prior tracings. An echocardiogram done November 09, 2022 shows severe left ventricular hypertrophy with a preserved left ventricular ejection fraction, moderate to borderline severe aortic stenosis and mild to moderate mitral regurgitation. There were no wall motion abnormalities identified. At the time of my interview she is sitting in her bedside chair, she appears comfortable and tells me that she feels better than on presentation. She describes several days of progressive shortness of breath and predominantly right leg edema, she believes this was in part because she was told to "carry 1000 mL) of peritoneal fluid. She denies chest discomfort. Allergies Allergy/AdvReac Type Severity Reaction Status Date / Time heparin Allergy Intermediate Hives Verified 07/26/22 11:31 insulin aspart Allergy Intermediate Hives Verified 07/26/22 11:31 [From Novolog U-100 Insulin aspart] meperidine AdvReac Intermediate hallucinate Verified 07/26/22 11:31 s lisinopril AdvReac Mild COUGHING Verified 07/26/22 11:31 Home Medications Medication Instructions Recorded Confirmed Type isosorbide mononitrate 60 mg 60 mg PO QAM #90 tabs 10/24/21 11/08/22 Rx tablet,extended release 24 hr dicyclomine 10 mg capsule 10 mg PO TID PRN Abdominal 10/31/21 11/08/22 Rx Discomfort #90 caps calcitriol 0.25 mcg capsule 0.25 mcg PO QAM 11/25/21 11/08/22 History apixaban 2.5 mg tablet (Eliquis) 2.5 mg PO BID #60 tabs 12/03/21 11/08/22 Rx insulin glargine 100 unit/mL (3 10 unit subcut BID 04/09/22 11/09/22 History mL) subcutaneous pen (Lantus Solostar U-100 Insulin) allopurinol 100 mg tablet 100 mg PO QAM #90 tabs 05/01/22 11/08/22 Rx (Zyloprim) OneTouch Ultra Test (blood sugar #300 ea 06/18/22 11/09/22 Rx diagnostic) insulin lispro 100 unit/mL 10 unit subcut QAM 07/11/22 11/09/22 History subcutaneous pen diphenoxylate-atropine 2.5 1 tab PO BID PRN diarrhea #30 tabs 07/24/22 11/08/22 Rx mg-0.025 mg tablet (Lomotil) flash glucose scanning reader #1 ea 08/03/22 11/09/22 Rx (FreeStyle Makayla 2 [place]) flash glucose sensor (FreeStyle #2 ea 08/03/22 11/09/22 Rx Makayla 2 Sensor kit) potassium chloride 20 mEq 20 meq PO DAILY #90 tabs 08/09/22 11/08/22 Rx tablet,extended release clopidogrel 75 mg tablet (Plavix) 75 mg PO QAM #90 tabs 09/13/22 11/08/22 Rx atorvastatin 80 mg tablet 80 mg PO QAM 11/08/22 11/08/22 History metoprolol tartrate 25 mg tablet 25 mg PO BID 11/08/22 11/08/22 History vit B complx, C-iron 8 mg-folic 1 tab PO DAILY 11/08/22 11/08/22 History acid 800 mcg-D3 1,000 unit-zinc tablet (ProRenal) nifedipine 60 mg tablet,extended 60 mg PO . SEE BELOW 11/09/22 11/09/22 History release 24 hr (Procardia XL) Patient History Medical History Abdominal pain Ongoing -- following with [facility]. Anemia due to chronic kidney disease Atrial fibrillation Occurred during hospital stay in [facility] ~2020. Treated with medication at the time. No problems since. Follows with Dr. Knott CAD (coronary artery disease) S/p stent to LCx 2009 and RCA in 2018 Carotid artery disease Carotid duplex 08/19/2018 = 5059% stenosis on the right internal carotid artery. No significant stenosis in the left internal carotid artery. Chronic back pain Significant x 2 years Has seen pain management - s/p epidural injections- only lasted 6 weeks for pain relief Chronic heart failure with preserved ejection fraction (HFpEF) Deep vein thrombosis (~05/2021) Unknown cause Degenerative disc disease Diabetes mellitus, type 2 IDDM Glucose stable and controlled per patient Hemodialysis patient Diaylsis in [place]: Saturday, Saturday, Saturday through History of stent insertion of renal artery 2013 Hyperlipidemia Hypertension Lymphedema Obesity Osteoarthritis Renal artery stenosis S/p renal stent 2013 Status post myocardial infarction Subclavian artery stenosis Per 08/19/18 carotid duplex- Normal flow in the innominate and right subclavian arteries. >50% stenosis of the proximal left subclavian artery with retrograde flow in the left vertebral artery and >40 mmHg difference in brachial systolic pressures (right >left). Surgical History H/O heart artery stent x2, last stent placed ~2016. History of cardiac cath x2, most recent done about 5 years ago in [place]. History of colonoscopy History of esophagogastroduodenoscopy (EGD) S/P arteriovenous (AV) fistula creation right (Dr Hayes) 12/2021 S/P epidural steroid injection Family History Other Hypertension No family history of adverse response to anesthesia Social History Smoking Status: Never smoker Second Hand Exposure: No; Hx Alcohol Use: No Hx Substance Use: No Preferred Language: British Communication Ability: Effective Visual Impairment: No Limitations Poleyard Supervisor Required: No Beliefs That Will Affect Care: None marital status: Single Current Living Situation: Family Current Living Situation Comment: lives with grandson How many Children do You have: 2 Other Information That Helps Us Care for You: No Feels Safe at Home: Yes Safety Concerns: Feels Safe At This Time Assistive Devices: Glasses Review of Systems Review of Systems: All systems reviewed & are unremarkable except as noted in HPI & below Gastrointestinal: Some anorexia Physical Exam Physical Exam: Constitutional: Alert, cooperative and in no distress. HEENT: Unremarkable Neck: No jugular venous distention, carotid pulses are normal and equal bilaterally without bruits. Pulmonary: Decreased breath sounds but no rales on auscultation bilaterally. Cardiac: Regular rhythm with a grade 2/6 crescendo decrescendo murmur at the base, no gallop or rub. Abdomen: Soft, nontender with normal bowel sounds. Extremities: +1 right and +1 left pretibial edema. Neurologic: No focal findings. Gait was not tested. Skin: No rash, ecchymoses or petechiae. Results & Data ([facility]) Vital Signs (Past 12 Hours) Vital Signs Pulse Pulse Resp BP BP Pulse Ox O2 Del Method 11/09/22 08:39 83 26 H 177/80 H 96 Room Air 11/09/22 06:01 89 19 135/68 96 11/09/22 05:13 88 26 H 133/72 95 11/09/22 04:30 84 95 11/09/22 04:02 90 19 160/95 H 100 11/09/22 03:31 85 14 157/53 H 99 11/09/22 02:30 88 26 H 163/87 H 97 11/09/22 02:01 82 21 150/94 H 96 11/09/22 03:40 85 16 157/53 H 99 Nasal Cannula 11/09/22 01:31 82 27 H 176/82 H 95 11/09/22 01:00 85 29 H 97 11/09/22 00:31 161/67 H 96 11/09/22 00:30 20 161/67 H 97 11/09/22 00:20 Nasal Cannula 11/09/22 00:20 Nasal Cannula 11/09/22 00:02 189/85 H 96 11/09/22 00:01 205/84 H 95 11/08/22 22:52 86 20 94 Nasal Cannula O2 Flow Rate 11/09/22 08:39 11/09/22 06:01 11/09/22 05:13 11/09/22 04:30 11/09/22 04:02 11/09/22 03:31 11/09/22 02:30 11/09/22 02:01 11/09/22 03:40 2 11/09/22 01:31 11/09/22 01:00 11/09/22 00:31 11/09/22 00:30 11/09/22 00:20 4 11/09/22 00:20 4 11/09/22 00:02 11/09/22 00:01 11/08/22 22:52 4 Laboratory Results Cardiac Enzymes 11/08/22 11/08/22 11/09/22 Range/Units 23:50 23:58 02:14 AST 27 19 (13-39) U/L Troponin I High Sens 413.3 H* (0-14) pg/ml B-Natriuretic Peptide 3010 H (0-100) pg/ml 11/09/22 Range/Units 02:14 AST (13-39) U/L Troponin I High Sens 662.5 H* D (0-14) pg/ml B-Natriuretic Peptide (0-100) pg/ml Coagulation 11/08/22 11/09/22 Range/Units 23:58 02:14 PT 11.8 (9.0-12.0) Seconds B-Natriuretic Peptide 3010 H (0-100) pg/ml CBC 11/08/22 11/09/22 Range/Units 23:50 02:14 WBC 18.35 H 20.67 H (4.8-10.8) K/ul RBC 2.74 L 3.19 L (3.93-5.22) M/uL Hgb 8.3 L 9.8 L (12.0-16.0) g/dl Hct 25.3 L 29.2 L (34.1-44.9) % Plt Count 338 308 (130-400) K/uL Neut # (Auto) 16.04 H (1.4-6.5) K/uL Lymph # (Auto) 0.93 L (1.2-3.4) K/uL Mcdonald # (Auto) 0.89 H (0.24-0.82) K/uL Eos # (Auto) 0.24 (0-0.50) K/uL Baso # (Auto) 0.08 (0-0.2) K/uL Comprehensive Metabolic Panel 11/08/22 11/09/22 Range/Units 23:50 02:14 Sodium 132 L 134 L (136-145) mmol/L Potassium 4.0 3.6 (3.5-5.1) mmol/L Chloride 93 L 95 L (98-107) mmol/L Carbon Dioxide 22 23 (21-32) mmol/L BUN 63 H 64 H (6-23) mg/dl Creatinine 8.20 H* 8.44 H* (0.6-1.2) mg/dl Glucose 279 H 210 H (70-99(Fasting)) mg/dl Calcium 8.2 L 8.5 (8.5-10.1) mg/dl AST 27 19 (13-39) U/L ALT 23 21 (7-52) U/L Alkaline Phosphatase 149 H 134 H (34-104) U/L Total Protein 6.9 6.7 (6.0-8.3) gm/dl Albumin 2.9 L 2.7 L (3.4-5.0) gm/dl Intake and Output 11/08/22 11/09/22 11/09/22 22:59 06:59 14:59 Other: Weight 79.3 kg 78.9 kg Weight Measurement Method Built in [facility] Built in [facility] Diagnostic Findings Telemetry: Sinus rhythm, no significant arrhythmia PG Care Time/CCT Total # of Minutes Spent Total Time Spent with Patient: Total time spent is greater than 50% in coordination of care (as documented) at patient's floor/unit and/or counseling patient: Coding Level of Care Code OFFICE CONSULT LVL 5, 55 MIN Diagnoses Breath shortness R06.02 Chronic heart failure with preserved ejection fraction (HFpEF) I50.32 CAD (coronary artery disease) I25.10 Associated angina: without angina Coronary Disease-Associated Artery/Lesion type: [place] artery [place] vs. transplanted heart: [place] heart Elevated troponin R77.8 Atrial fibrillation I48.91 Anticoagulant long-term use Z79.01 Hypertension I10 Hypertension type: essential hypertension Aortic stenosis I35.0 (1) CAD (coronary artery disease) Associated angina: without angina Coronary Disease-Associated Artery/Lesion type: [place] artery [place] vs. transplanted heart: [place] heart Qualified Code(s): I25.10 - Atherosclerotic heart disease of [place] coronary artery without angina pectoris (2) Hypertension Hypertension type: essential hypertension Qualified Code(s): I10 - Essential (primary) hypertension
[2022-11-09] MEDS ORDERED: FLUCONAZOLE 50 MG TAB PO ONE (10:56)
--- NOTE | 2022-11-09 12:12 | Nephrology Consultation ---
Date of Consultation November 09, 2022 Assessment & Plan (1) ESRD on peritoneal dialysis: * Outpatient NCCPD regimen: 4 exchanges/night, 1 hr 45 min dwell, 2.7 L vol, 2.5% delflex, LBO 1000 cc * Patient refuses LBO * Will change to combination 2.5% + 4.25% delflex tonight due to patient's HTN and LE swelling (2) Dyspnea: * Patient was breathing comfortably on RA at the time of my evaluation * CXR film reviewed - no CHF, infiltrate * Laboratory results show mild leukocytosis but patient has tested negative for RSV/COVID/influenza in the EMD (3) Hypertension: * SBP 150 - 180 mm Hg since admission. Will attempt UF w/ NCCPD tonight and monitor BP response (4) Aortic stenosis: * TTE is pending. Note that 07/19 Echo revealed progression of stenosis to "moderate" (5) Atrial fibrillation: * Continue Metoprolol and Apixaban (6) Right leg swelling: * Will check LE doppler, but unlikely DVT given chronic anticoagulation therapy (7) Weakness: * Will need PT evaluation (8) Yeast infection of the vagina: * Patient c/o vaginal yeast infection. Will provide one dose Fluconazole 150 mg History of Present Illness Reason for Consultation: ESKD on NCCPD Attending Physician: Eloina Cota MD History of Present Illness Ms. Mcnulty is a 72 year old female who is seen at the request of the hospitalist service to provide NCCPD therapy and assist w/ medical management. Medical records in the EMR were reviewed today and are summarized as follows: Ms. 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 She started HD via R IJ THC 12/01/21. She subsequently underwent PD catheter insertion 04/17/22 and then transition from IHD to NCCPD 06/22/22 following the removal of her IJ THC. Ms. Mcnulty reports that her NCCPD has been smooth. She denies fever, abdominal pain, difficulty draining or cloudy effluent. She does note that her clearances have been below target and her fill volume was recently increased to 2.7 L with a 1L LBO. Her current NCCPD regimen is 4 exchanges/night, 1 hr 45 min dwell, 2.7 L vol, 2.5% delflex, LBO 1000 cc. Ms. Mcnulty presented to the EMD last evening for evaluation of dyspnea and weakness. She denies any recent ill contacts, fever, productive cough, pleurisy or angina. She did not dialyze last evening due to weakness. She reports that she has not been performing the LBO. Ms. Mcnulty notes that her BP has been trending up. She has R > L LE swelling and she has difficulty ambulating due to weakness. She requests transfer to [facility] for inpatient physical therapy. EMD testing for influenza/RSV/COVID is negative. CXR shows no infiltrate PMH: ESKD due to renal vascular disease (s/p renal artery stent 2013), R arm AVF created 01/16 - thrombosed, AODM, hyperlipidemia, ASCVD (s/p stent x2), PVD w/ subclavian artery stenosis, obesity, gout Allergies Allergies Allergy/AdvReac Type Severity Reaction Status Date / Time heparin Allergy Intermediate Hives Verified 07/26/22 11:31 insulin aspart Allergy Intermediate Hives Verified 07/26/22 11:31 [From Novolog U-100 Insulin aspart] meperidine AdvReac Intermediate hallucinate Verified 07/26/22 11:31 s lisinopril AdvReac Mild COUGHING Verified 07/26/22 11:31 Home Medications Medication Instructions Recorded Confirmed Type isosorbide mononitrate 60 mg 60 mg PO QAM #90 tabs 10/24/21 11/08/22 Rx tablet,extended release 24 hr dicyclomine 10 mg capsule 10 mg PO TID PRN Abdominal 10/31/21 11/08/22 Rx Discomfort #90 caps calcitriol 0.25 mcg capsule 0.25 mcg PO QAM 11/25/21 11/08/22 History apixaban 2.5 mg tablet (Eliquis) 2.5 mg PO BID #60 tabs 12/03/21 11/08/22 Rx insulin glargine 100 unit/mL (3 10 unit subcut BID 04/09/22 11/09/22 History mL) subcutaneous pen (Lantus Solostar U-100 Insulin) allopurinol 100 mg tablet 100 mg PO QAM #90 tabs 05/01/22 11/08/22 Rx (Zyloprim) OneTouch Ultra Test (blood sugar #300 ea 06/18/22 11/09/22 Rx diagnostic) insulin lispro 100 unit/mL 10 unit subcut QAM 07/11/22 11/09/22 History subcutaneous pen diphenoxylate-atropine 2.5 1 tab PO BID PRN diarrhea #30 tabs 07/24/22 11/08/22 Rx mg-0.025 mg tablet (Lomotil) flash glucose scanning reader #1 ea 08/03/22 11/09/22 Rx (FreeStyle Makayla 2 [place]) flash glucose sensor (FreeStyle #2 ea 08/03/22 11/09/22 Rx Makayla 2 Sensor kit) potassium chloride 20 mEq 20 meq PO DAILY #90 tabs 08/09/22 11/08/22 Rx tablet,extended release clopidogrel 75 mg tablet (Plavix) 75 mg PO QAM #90 tabs 09/13/22 11/08/22 Rx atorvastatin 80 mg tablet 80 mg PO QAM 11/08/22 11/08/22 History metoprolol tartrate 25 mg tablet 25 mg PO BID 11/08/22 11/08/22 History vit B complx, C-iron 8 mg-folic 1 tab PO DAILY 11/08/22 11/08/22 History acid 800 mcg-D3 1,000 unit-zinc tablet (ProRenal) nifedipine 60 mg tablet,extended 60 mg PO . SEE BELOW 11/09/22 11/09/22 History release 24 hr (Procardia XL) Patient History Medical History Abdominal pain Ongoing -- following with [facility] Gastro. Anemia due to chronic kidney disease Atrial fibrillation Occurred during hospital stay in [facility] ~2020. Treated with medication at the [facility]. No problems since. Follows with Dr. Knott CAD (coronary artery disease) S/p stent to LCx 2009 and RCA in 2018 Carotid artery disease Carotid duplex 08/19/2018 = 5059% stenosis on the right internal carotid artery. No significant stenosis in the left internal carotid artery. Chronic back pain Significant x 2 years Has seen pain management - s/p epidural injections- only lasted 6 weeks for pain relief Chronic heart failure with preserved ejection fraction (HFpEF) Deep vein thrombosis (~05/2021) Unknown cause Degenerative disc disease Diabetes mellitus, type 2 IDDM Glucose stable and controlled per patient Hemodialysis patient Diaylsis in [place]: Saturday, Saturday, Saturday through [facility] History of stent insertion of renal artery 2013 Hyperlipidemia Hypertension Lymphedema Obesity Osteoarthritis Renal artery stenosis S/p renal stent 2013 Status post myocardial infarction Subclavian artery stenosis Per 08/19/18 carotid duplex- Normal flow in the innominate and right ramsey bclavian arteries. >50% stenosis of the proximal left subclavian artery with retrograde flow in the left vertebral artery and >40 mmHg difference in brachial systolic pressures (right >left). Surgical History H/O heart artery stent x2, last stent placed ~2016. History of cardiac cath x2, most recent done about 5 years ago in [place]. History of colonoscopy History of esophagogastroduodenoscopy (EGD) S/P arteriovenous (AV) fistula creation right (Dr Hayes) 12/2021 S/P epidural steroid injection Family History Other Hypertension No family history of adverse response to anesthesia Social History Smoking Status: Never smoker Second Hand Exposure: No; Hx Alcohol Use: No Hx Substance Use: No Preferred Language: Polish Communication Ability: Effective Visual Impairment: No Limitations Rough Patcher Required: No Beliefs That Will Affect Care: None marital status: Single Current Living Situation: Family Current Living Situation Comment: lives with grandson How many Children do You have: 2 Other Information That Helps Us Care for You: No Feels Safe at Home: Yes Safety Concerns: Feels Safe At This Time Assistive Devices: Glasses Review of Systems Constitutional: no fever Eyes: no problem reported Ear, Nose, Mouth, Throat: no problem reported Respiratory: + dyspnea; no cough, no hemoptysis and no sputum production Cardiovascular: no chest pain Gastrointestinal: no abdominal pain, no nausea, no vomiting and no diarrhea/loose stools Genitourinary: no dysuria Neurologic: no confusion Physical Exam Constitutional: not in distress Eyes: PERRL, conjunctivae normal, anicteric sclerae ENMT: external ear and nose normal, oropharynx normal Neck: trachea midline, no thyromegaly Respiratory: normal respiratory effort, lungs clear to auscultation Cardiovascular: Rate/Rhythm: regular rate and regular rhythm Heart Sounds: + murmur Extremities: + edema (1+ pretibial edema R leg) and + AV fistula (t hrombosed) Gastrointestinal (Abdomen): Inspection/Auscultation: normal bowel sounds (RLQ PD exit site w/ clean dry dressing in place) Percussion/Palpation: abdomen soft; abdomen nontender and no guarding Neurologic: awake; not confused Results & Data (MN) Vital Signs (Past 12 Hours) Vital Signs Pulse Pulse Resp BP BP Pulse Ox Pulse Ox 11/09/22 11:09 97 11/09/22 10:38 75 24 158/82 H 98 11/09/22 08:39 83 26 H 177/80 H 96 11/09/22 06:01 89 19 135/68 96 11/09/22 05:13 88 26 H 133/72 95 11/09/22 04:30 84 95 11/09/22 04:02 90 19 160/95 H 100 11/09/22 03:31 85 14 157/53 H 99 11/09/22 02:30 88 26 H 163/87 H 97 11/09/22 02:01 82 21 150/94 H 96 11/09/22 03:40 85 16 157/53 H 99 11/09/22 01:31 82 27 H 176/82 H 95 11/09/22 01:00 85 29 H 97 11/09/22 00:31 161/67 H 96 11/09/22 00:30 20 161/67 H 97 11/09/22 00:20 11/09/22 00:20 11/09/22 00:02 189/85 H 96 11/09/22 00:01 205/84 H 95 Pulse Ox Pulse Ox O2 Del Method O2 Flow Rate O2 Flow Rate O2 Flow Rate O2 Flow Rate 11/09/22 11:09 100 93 0 2 0 11/09/22 10:38 Nasal Cannula 2 11/09/22 08:39 Room Air 11/09/22 06:01 11/09/22 05:13 11/09/22 04:30 11/09/22 04:02 11/09/22 03:31 11/09/22 02:30 11/09/22 02:01 11/09/22 03:40 Nasal Cannula 2 11/09/22 01:31 11/09/22 01:00 11/09/22 00:31 11/09/22 00:30 11/09/22 00:20 Nasal Cannula 4 11/09/22 00:20 Nasal Cannula 4 11/09/22 00:02 11/09/22 00:01 Laboratory Results Laboratory Tests 11/08/22 11/09/22 11/09/22 23:50 02:14 02:14 WBC 20.67 H Hgb 9.8 L Hct 29.2 L Plt Count 308 Sodium 134 L Potassium 3.6 Chloride 95 L Carbon Dioxide 23 BUN 64 H Creatinine 8.44 H* Glucose 210 H Phosphorus 7.3 H Magnesium 1.4 L Troponin I High Sens 413.3 H* Albumin 2.7 L SARS-CoV-2 (PCR) Influenza Type A (PCR) Influenza Type B (PCR) RSV (RT-PCR) SARS-CoV-2, RNA, NAAT 11/09/22 11/09/22 11/09/22 02:14 Unknown Unknown WBC Hgb Hct Plt Count Sodium Potassium Chloride Carbon Dioxide BUN Creatinine Glucose Phosphorus Magnesium Troponin I High Sens 662.5 H* D Albumin SARS-CoV-2 (PCR) NEGATIVE Influenza Type A (PCR) Negative Influenza Type B (PCR) Negative RSV (RT-PCR) Negative SARS-CoV-2, RNA, NAAT NEGATIVE PG Care Time/CCT Total # of Minutes Spent Total Time Spent with Patient: Total time spent is greater than 50% in coordination of care (as documented) at patient's floor/unit and/or counseling patient: Coding Level of Care Code INP/OBS CONSULT LVL 5, 80 MIN Diagnoses ESRD on peritoneal dialysis N18.6; Z99.2 Dyspnea R06.00 Hypertension I10 Hypertension type: essential hypertension Aortic stenosis I35.0 Atrial fibrillation I48.91 Right leg swelling M79.89 Weakness R53.1 Yeast infection of the vagina B37.31 (1) Hypertension Hypertension type: essential hypertension Qualified Code(s): I10 - Essential (primary) hypertension
--- NOTE | 2022-11-09 14:02 | Electrocardiogram Report ---
Test Reason : Blood Pressure : / mmHG Vent. Rate : 078 BPM Atrial Rate : 078 BPM P-R Int : 144 ms QRS Dur : 088 ms QT Int : 414 ms P-R-T Axes : 055 -14 165 degrees QTc Int : 471 ms Poor data quality, interpretation may be adversely affected Normal sinus rhythm Possible Left atrial enlargement Left ventricular hypertrophy with repolarization abnormality Abnormal ECG When compared with ECG of 12-JUL-2022 03:49, Atrial bigeminy is no longer present Confirmed by Luis Aparicio ([id number]) on 11/09/2022 2:01:57 PM Referred By: REFERRED SELF Confirmed By:Luis Aparicio
--- NOTE | 2022-11-09 14:45 | Ultrasound Report ---
BILATERAL LOWER EXTREMITY VENOUS DOPPLER HISTORY: Acute pain and swelling of the lower legs. History of DVT involving the left peroneal vein. RLE swelling, assess for DVT COMPARISON STUDY: 06/24/2021 FINDINGS: There is normal flow, and augmentation within the bilateral lower extremity deep venous sys tems. Study is limited secondary to patient unable to tolerate compression of some of the deep venous structures. IMPRESSION: No DVT identified within the right or left lower extremity. ACT 112: Negative or not required by law. Electronically signed by: Isac Fernandez M.D. 11/09/2022 2:44 PM
--- NOTE | 2022-11-09 14:47 | Hospitalist Progress Note ---
Date of Service November 09, 2022 Assessment & Plan (1) Breath shortness: Plan: 72yo female with a history of ESRD (on peritoneal dialysis), paroxysmal atrial fibrillation, HTN, HLD, CAD (s/p stent), T2DM, HFpEF, aortic stenosis, anemia of chronic disease, and gout presents with a few-day history of SOB and LE edema. Shortness of breath, LE edema, ESRD on dialysis Patient presents with SOB and LE edema in the setting of ESRD on nightly peritoneal dialysis Initial vitals were notable for elevated BP (180-220s/80s) Initial labs were notable for leukocytosis (18.4), anemia (8.3), mild hyponatremia (132), AG (17), elevated creatinine (8.2 - baseline ~5-6), elevated alkphos (149), and elevated hsTroponin (as noted below). Flu/RSV/COVID-negative Suspect symptoms are secondary to a worsening of renal failure and volume overload Leukocytosis slightly worse today up to 20, afebrile-check blood cultures. No evidence of peritonitis clinically Nephrology consulted Lasix 20mg IV (x1) administered on admission, but nephrology adjusting PD Procalcitonin negative Chest x-ray negative Trend CBC, BMP , And follow blood cultures Elevated troponin-myocardial demand ischemia On admission, hsTroponin elevated to 413, repeat value 663 and back down again to 545 EKG: NSR, no overt sign of ischemic change Patient without CP at this time secondary to myocardial demand ischemia Will continue patient's home eliquis given that patient has a reported hives reaction to heparin Cardiology consulted-appreciate consultation Echo here is pending -Replace magnesium Trend hsTroponin q2h until peak & fall DM2 HbA1c 6.0% (01/2022), repeat value ordered Patient's home regimen held on admission Continue BSG checks, sliding-scale insulin, hypoglycemic protocol Vaginal yeast infection-start clotrimazole in addition to p.o. fluconazole pAF: home eliquis HFpEF: home metoprolol, hold home lasix HTN: home nifedipine, metoprolol HLD, CAD s/p stent: home clopidogrel, atorvastatin, imdur Gout: home allopurinol FEN: NPO pending possible catheterization Code status: DNI (chest compressions OK, defibrillation OK) DVT ppx: home eliquis Consults: nephrology, cardiology PT/OT: ordered Dispo: med/telemetry (2) Acute kidney injury superimposed on CKD: (3) Acute on chronic diastolic (congestive) heart failure: (4) Anemia due to chronic kidney disease: (5) Antiplatelet or antithrombotic long-term use: (6) Aortic stenosis: (7) Atrial fibrillation: (8) CAD (coronary artery disease): (9) Elevated troponin: (10) ESRD on peritoneal dialysis: (11) Gout attack: (12) H/O heart artery stent: (13) Hyperlipidemia: (14) Hypertension: (15) Paroxysmal atrial fibrillation: (16) Peritoneal dialysis status: (17) Type 2 diabetes mellitus: Admission and Anticipated Discharge Date Admission Date: November 09, 2022 Subjective Patient reports her shortness of breath is improved. Still with bilateral leg swelling. Her biggest complaint is vaginal itching and burning consistent with similar occurrences of vaginal yeast infections. She says she recently took oral antibiotics for a urinary tract infection. She is requesting topical clotrimazole in addition to the fluconazole ordered by nephrology earlier today. Denies any abdominal pains. No nausea. Review of Systems Review of Systems: All systems reviewed & are unremarkable except as noted in HPI & below Physical Exam Constitutional: WD/WN, vitals as above ENMT: external ear and nose normal, oropharynx normal Neck: trachea midline, no thyromegaly Respiratory: normal respiratory effort, lungs clear to auscultation Cardiovascular: RRR, no murmur, no edema Chest (Breasts): Chest: normal inspection of chest Gastrointestinal (Abdomen): Inspection/Auscultation: normal bowel sounds; + abdomen abnormal to inspection (Peritoneal dialysis catheter present in RLQ) Percussion/Palpation: abdomen nontender Musculoskeletal: Extremities: extremities normal to inspection; no cyanosis and no clubbing Skin: no rashes, warm and dry Neurologic: moves all extremities and awake; no focal motor deficits Psychiatric: A+Ox3, euthymic affect Lymphatic: no lymphedema Results & Data Results & Data ([facility]) Vital Signs (Past 12 Hours) Vital Signs Pulse Pulse Resp BP BP Pulse Ox Pulse Ox 11/09/22 11:09 97 11/09/22 10:38 75 24 158/82 H 98 11/09/22 08:39 83 26 H 177/80 H 96 11/09/22 06:01 89 19 135/68 96 11/09/22 05:13 88 26 H 133/72 95 11/09/22 04:30 84 95 11/09/22 04:02 90 19 160/95 H 100 11/09/22 03:31 85 14 157/53 H 99 11/09/22 03:40 85 16 157/53 H 99 Pulse Ox Pulse Ox O2 Del Method O2 Flow Rate O2 Flow Rate O2 Flow Rate O2 Flow Rate 11/09/22 11:09 100 93 0 2 0 11/09/22 10:38 Nasal Cannula 2 11/09/22 08:39 Room Air 11/09/22 06:01 11/09/22 05:13 11/09/22 04:30 11/09/22 04:02 11/09/22 03:31 11/09/22 03:40 Nasal Cannula 2 Laboratory Results 11/09/22 11/09/22 11/09/22 Range/Units Unknown Unknown Unknown WBC (4.8-10.8) K/ul RBC (3.93-5.22) M/uL Hgb (12.0-16.0) g/dl Hct (34.1-44.9) % MCV (80.0-100.0) fL MCH (25.0-34.0) pg MCHC (32.0-36.0) g/dL RDW Std Deviation (36.4-46.3) fL RDW Coeff of Ekaterina (11.5-14.5) % Plt Count (130-400) K/uL MPV (9.4-12.3) fL Immature Gran % (Auto) % Neut % (Auto) % Lymph % (Auto) % [place] % (Auto) % Eos % (Auto) % Baso % (Auto) % Neut # (Auto) (1.4-6.5) K/uL Lymph # (Auto) (1.2-3.4) K/uL [place] # (Auto) (0.24-0.82) K/uL Eos # (Auto) (0-0.50) K/uL Baso # (Auto) (0-0.2) K/uL Immature Gran # (Auto) (0.00-0.02) K/uL PT (9.0-12.0) Seconds INR (0.9-1.1) Sodium (136-145) mmol/L Potassium (3.5-5.1) mmol/L Chloride (98-107) mmol/L Carbon Dioxide (21-32) mmol/L Anion Gap (3-11) BUN (6-23) mg/dl Creatinine (0.6-1.2) mg/dl Est Cr Clr Drug Dosing ml/min Est GFR ( Amer) ml/min Est GFR (Non-Af Amer) ml/min BUN/Creatinine Ratio (10-20) Glucose (70-99(Fasting)) mg/dl POC Glucose (70-99) mg/dl Calcium (8.5-10.1) mg/dl Phosphorus (2.5-4.9) mg/dl Magnesium (1.7-2.4) mg/dl Total Bilirubin (0.2-1.0) mg/dl AST (13-39) U/L ALT (7-52) U/L Alkaline Phosphatase (34-104) U/L Troponin I High Sens (0-14) pg/ml B-Natriuretic Peptide (0-100) pg/ml Total Protein (6.0-8.3) gm/dl Albumin (3.4-5.0) gm/dl Globulin (2.5-4.0) gm/dl Albumin/Globulin Ratio (0.9-2) Lipase (11-82) U/L Procalcitonin 0.17 (0-0.5) ng/ml SARS-CoV-2 (PCR) NEGATIVE (Negative) Hep Bs Antigen Hep Bs Ag Confirmation Hep Bs Antibody, Quant Influenza Type A (PCR) Negative (Neg) Influenza Type B (PCR) Negative (Neg) RSV (RT-PCR) Negative (Neg) SARS-CoV-2, RNA, NAAT NEGATIVE (NEGATIVE) 11/09/22 11/09/22 11/09/22 Range/Units 21:28 20:06 20:04 WBC (4.8-10.8) K/ul RBC (3.93-5.22) M/uL Hgb (12.0-16.0) g/dl Hct (34.1-44.9) % MCV (80.0-100.0) fL MCH (25.0-34.0) pg MCHC (32.0-36.0) g/dL RDW Std Deviation (36.4-46.3) fL RDW Coeff of Ekaterina (11.5-14.5) % Plt Count (130-400) K/uL MPV (9.4-12.3) fL Immature Gran % (Auto) % Neut % (Auto) % Lymph % (Auto) % [place] % (Auto) % Eos % (Auto) % Baso % (Auto) % Neut # (Auto) (1.4-6.5) K/uL Lymph # (Auto) (1.2-3.4) K/uL [place] # (Auto) (0.24-0.82) K/uL Eos # (Auto) (0-0.50) K/uL Baso # (Auto) (0-0.2) K/uL Immature Gran # (Auto) (0.00-0.02) K/uL PT (9.0-12.0) Seconds INR (0.9-1.1) Sodium (136-145) mmol/L Potassium (3.5-5.1) mmol/L Chloride (98-107) mmol/L Carbon Dioxide (21-32) mmol/L Anion Gap (3-11) BUN (6-23) mg/dl Creatinine (0.6-1.2) mg/dl Est Cr Clr Drug Dosing ml/min Est GFR ( Amer) ml/min Est GFR (Non-Af Amer) ml/min BUN/Creatinine Ratio (10-20) Glucose (70-99(Fasting)) mg/dl POC Glucose 331 H* 380 H* 360 H* (70-99) mg/dl Calcium (8.5-10.1) mg/dl Phosphorus (2.5-4.9) mg/dl Magnesium (1.7-2.4) mg/dl Total Bilirubin (0.2-1.0) mg/dl AST (13-39) U/L ALT (7-52) U/L Alkaline Phosphatase (34-104) U/L Troponin I High Sens (0-14) pg/ml B-Natriuretic Peptide (0-100) pg/ml Total Protein (6.0-8.3) gm/dl Albumin (3.4-5.0) gm/dl Globulin (2.5-4.0) gm/dl Albumin/Globulin Ratio (0.9-2) Lipase (11-82) U/L Procalcitonin (0-0.5) ng/ml SARS-CoV-2 (PCR) (Negative) Hep Bs Antigen Hep Bs Ag Confirmation Hep Bs Antibody, Quant Influenza Type A (PCR) (Neg) Influenza Type B (PCR) (Neg) RSV (RT-PCR) (Neg) SARS-CoV-2, RNA, NAAT (NEGATIVE) 11/09/22 11/09/22 11/09/22 Range/Units 16:32 14:56 13:01 WBC (4.8-10.8) K/ul RBC (3.93-5.22) M/uL Hgb (12.0-16.0) g/dl Hct (34.1-44.9) % MCV (80.0-100.0) fL MCH (25.0-34.0) pg MCHC (32.0-36.0) g/dL RDW Std Deviation (36.4-46.3) fL RDW Coeff of Ekaterina (11.5-14.5) % Plt Count (130-400) K/uL MPV (9.4-12.3) fL Immature Gran % (Auto) % Neut % (Auto) % Lymph % (Auto) % [place] % (Auto) % Eos % (Auto) % Baso % (Auto) % Neut # (Auto) (1.4-6.5) K/uL Lymph # (Auto) (1.2-3.4) K/uL [place] # (Auto) (0.24-0.82) K/uL Eos # (Auto) (0-0.50) K/uL Baso # (Auto) (0-0.2) K/uL Immature Gran # (Auto) (0.00-0.02) K/uL PT (9.0-12.0) Seconds INR (0.9-1.1) Sodium (136-145) mmol/L Potassium (3.5-5.1) mmol/L Chloride (98-107) mmol/L Carbon Dioxide (21-32) mmol/L Anion Gap (3-11) BUN (6-23) mg/dl Creatinine (0.6-1.2) mg/dl Est Cr Clr Drug Dosing ml/min Est GFR ( Amer) ml/min Est GFR (Non-Af Amer) ml/min BUN/Creatinine Ratio (10-20) Glucose (70-99(Fasting)) mg/dl POC Glucose 157 H 164 H (70-99) mg/dl Calcium (8.5-10.1) mg/dl Phosphorus (2.5-4.9) mg/dl Magnesium (1.7-2.4) mg/dl Total Bilirubin (0.2-1.0) mg/dl AST (13-39) U/L ALT (7-52) U/L Alkaline Phosphatase (34-104) U/L Troponin I High Sens (0-14) pg/ml B-Natriuretic Peptide (0-100) pg/ml Total Protein (6.0-8.3) gm/dl Albumin (3.4-5.0) gm/dl Globulin (2.5-4.0) gm/dl Albumin/Globulin Ratio (0.9-2) Lipase (11-82) U/L Procalcitonin (0-0.5) ng/ml SARS-CoV-2 (PCR) (Negative) Hep Bs Antigen Pending Hep Bs Ag Confirmation Pending Hep Bs Antibody, Quant Pending Influenza Type A (PCR) (Neg) Influenza Type B (PCR) (Neg) RSV (RT-PCR) (Neg) SARS-CoV-2, RNA, NAAT (NEGATIVE) 11/09/22 11/09/22 11/09/22 Range/Units 10:36 08:55 02:14 WBC (4.8-10.8) K/ul RBC (3.93-5.22) M/uL Hgb (12.0-16.0) g/dl Hct (34.1-44.9) % MCV (80.0-100.0) fL MCH (25.0-34.0) pg MCHC (32.0-36.0) g/dL RDW Std Deviation (36.4-46.3) fL RDW Coeff of Ekaterina (11.5-14.5) % Plt Count (130-400) K/uL MPV (9.4-12.3) fL Immature Gran % (Auto) % Neut % (Auto) % Lymph % (Auto) % [place] % (Auto) % Eos % (Auto) % Baso % (Auto) % Neut # (Auto) (1.4-6.5) K/uL Lymph # (Auto) (1.2-3.4) K/uL [place] # (Auto) (0.24-0.82) K/uL Eos # (Auto) (0-0.50) K/uL Baso # (Auto) (0-0.2) K/uL Immature Gran # (Auto) (0.00-0.02) K/uL PT (9.0-12.0) Seconds INR (0.9-1.1) Sodium (136-145) mmol/L Potassium (3.5-5.1) mmol/L Chloride (98-107) mmol/L Carbon Dioxide (21-32) mmol/L Anion Gap (3-11) BUN (6-23) mg/dl Creatinine (0.6-1.2) mg/dl Est Cr Clr Drug Dosing ml/min Est GFR ( Amer) ml/min Est GFR (Non-Af Amer) ml/min BUN/Creatinine Ratio (10-20) Glucose (70-99(Fasting)) mg/dl POC Glucose 175 H (70-99) mg/dl Calcium (8.5-10.1) mg/dl Phosphorus (2.5-4.9) mg/dl Magnesium (1.7-2.4) mg/dl Total Bilirubin (0.2-1.0) mg/dl AST (13-39) U/L ALT (7-52) U/L Alkaline Phosphatase (34-104) U/L Troponin I High Sens 545.9 H* 662.5 H* D (0-14) pg/ml B-Natriuretic Peptide (0-100) pg/ml Total Protein (6.0-8.3) gm/dl Albumin (3.4-5.0) gm/dl Globulin (2.5-4.0) gm/dl Albumin/Globulin Ratio (0.9-2) Lipase (11-82) U/L Procalcitonin (0-0.5) ng/ml SARS-CoV-2 (PCR) (Negative) Hep Bs Antigen Hep Bs Ag Confirmation Hep Bs Antibody, Quant Influenza Type A (PCR) (Neg) Influenza Type B (PCR) (Neg) RSV (RT-PCR) (Neg) SARS-CoV-2, RNA, NAAT (NEGATIVE) 11/09/22 11/09/22 11/09/22 Range/Units 02:14 02:14 02:14 WBC 20.67 H (4.8-10.8) K/ul RBC 3.19 L (3.93-5.22) M/uL Hgb 9.8 L (12.0-16.0) g/dl Hct 29.2 L (34.1-44.9) % MCV 91.5 (80.0-100.0) fL MCH 30.7 (25.0-34.0) pg MCHC 33.6 (32.0-36.0) g/dL RDW Std Deviation 53.2 H (36.4-46.3) fL RDW Coeff of Ekaterina 15.9 H (11.5-14.5) % Plt Count 308 (130-400) K/uL MPV 11.1 (9.4-12.3) fL Immature Gran % (Auto) % Neut % (Auto) % Lymph % (Auto) % [place] % (Auto) % Eos % (Auto) % Baso % (Auto) % Neut # (Auto) (1.4-6.5) K/uL Lymph # (Auto) (1.2-3.4) K/uL [place] # (Auto) (0.24-0.82) K/uL Eos # (Auto) (0-0.50) K/uL Baso # (Auto) (0-0.2) K/uL Immature Gran # (Auto) (0.00-0.02) K/uL PT 11.8 (9.0-12.0) Seconds INR 1.1 (0.9-1.1) Sodium 134 L (136-145) mmol/L Potassium 3.6 (3.5-5.1) mmol/L Chloride 95 L (98-107) mmol/L Carbon Dioxide 23 (21-32) mmol/L Anion Gap 16 H (3-11) BUN 64 H (6-23) mg/dl Creatinine 8.44 H* (0.6-1.2) mg/dl Est Cr Clr Drug Dosing 6.1 ml/min Est GFR ( Amer) 4.9 ml/min Est GFR (Non-Af Amer) 4.3 ml/min BUN/Creatinine Ratio 7.6 L (10-20) Glucose 210 H (70-99(Fasting)) mg/dl POC Glucose (70-99) mg/dl Calcium 8.5 (8.5-10.1) mg/dl Phosphorus 7.3 H (2.5-4.9) mg/dl Magnesium 1.4 L (1.7-2.4) mg/dl Total Bilirubin 0.3 (0.2-1.0) mg/dl AST 19 (13-39) U/L ALT 21 (7-52) U/L Alkaline Phosphatase 134 H (34-104) U/L Troponin I High Sens (0-14) pg/ml B-Natriuretic Peptide (0-100) pg/ml Total Protein 6.7 (6.0-8.3) gm/dl Albumin 2.7 L (3.4-5.0) gm/dl Globulin 4.0 (2.5-4.0) gm/dl Albumin/Globulin Ratio 0.7 L (0.9-2) Lipase (11-82) U/L Procalcitonin (0-0.5) ng/ml SARS-CoV-2 (PCR) (Negative) Hep Bs Antigen Hep Bs Ag Confirmation Hep Bs Antibody, Quant Influenza Type A (PCR) (Neg) Influenza Type B (PCR) (Neg) RSV (RT-PCR) (Neg) SARS-CoV-2, RNA, NAAT (NEGATIVE) 11/08/22 11/08/22 11/08/22 Range/Units 23:58 23:50 23:50 WBC 18.35 H (4.8-10.8) K/ul RBC 2.74 L (3.93-5.22) M/uL Hgb 8.3 L (12.0-16.0) g/dl Hct 25.3 L (34.1-44.9) % MCV 92.3 (80.0-100.0) fL MCH 30.3 (25.0-34.0) pg MCHC 32.8 (32.0-36.0) g/dL RDW Std Deviation 54.8 H (36.4-46.3) fL RDW Coeff of Ekaterina 16.2 H (11.5-14.5) % Plt Count 338 (130-400) K/uL MPV 11.2 (9.4-12.3) fL Immature Gran % (Auto) 0.9 % Neut % (Auto) 87.4 % Lymph % (Auto) 5.1 % [place] % (Auto) 4.9 % Eos % (Auto) 1.3 % Baso % (Auto) 0.4 % Neut # (Auto) 16.04 H (1.4-6.5) K/uL Lymph # (Auto) 0.93 L (1.2-3.4) K/uL [place] # (Auto) 0.89 H (0.24-0.82) K/uL Eos # (Auto) 0.24 (0-0.50) K/uL Baso # (Auto) 0.08 (0-0.2) K/uL Immature Gran # (Auto) 0.17 H (0.00-0.02) K/uL PT (9.0-12.0) Seconds INR (0.9-1.1) Sodium 132 L (136-145) mmol/L Potassium 4.0 (3.5-5.1) mmol/L Chloride 93 L (98-107) mmol/L Carbon Dioxide 22 (21-32) mmol/L Anion Gap 17 H (3-11) BUN 63 H (6-23) mg/dl Creatinine 8.20 H* (0.6-1.2) mg/dl Est Cr Clr Drug Dosing 6.3 ml/min Est GFR ( Amer) 5.1 ml/min Est GFR (Non-Af Amer) 4.4 ml/min BUN/Creatinine Ratio 7.7 L (10-20) Glucose 279 H (70-99(Fasting)) mg/dl POC Glucose (70-99) mg/dl Calcium 8.2 L (8.5-10.1) mg/dl Phosphorus (2.5-4.9) mg/dl Magnesium (1.7-2.4) mg/dl Total Bilirubin 0.3 (0.2-1.0) mg/dl AST 27 (13-39) U/L ALT 23 (7-52) U/L Alkaline Phosphatase 149 H (34-104) U/L Troponin I High Sens 413.3 H* (0-14) pg/ml B-Natriuretic Peptide 3010 H (0-100) pg/ml Total Protein 6.9 (6.0-8.3) gm/dl Albumin 2.9 L (3.4-5.0) gm/dl Globulin 4.0 (2.5-4.0) gm/dl Albumin/Globulin Ratio 0.7 L (0.9-2) Lipase 53 (11-82) U/L Procalcitonin (0-0.5) ng/ml SARS-CoV-2 (PCR) (Negative) Hep Bs Antigen Hep Bs Ag Confirmation Hep Bs Antibody, Quant Influenza Type A (PCR) (Neg) Influenza Type B (PCR) (Neg) RSV (RT-PCR) (Neg) SARS-CoV-2, RNA, NAAT (NEGATIVE) PG Care Time/CCT Total # of Minutes Spent Total Time Spent with Patient: Total time spent is greater than 50% in coordination of care (as documented) at patient's floor/unit and/or counseling patient: Coding Level of Care Code 93380 SUB INP/OBS CARE 3/50MIN Diagnoses Breath shortness R06.02 Acute kidney injury superimposed on CKD N17.9; N18.9 Acute on chronic diastolic (congestive) heart failure I50.33 Anemia due to chronic kidney disease N18.9; D63.1 Antiplatelet or antithrombotic long-term use Z79.02 Aortic stenosis I35.0 Atrial fibrillation I48.91 CAD (coronary artery disease) I25.10 Associated angina: without angina Coronary Disease-Associated Artery/Lesion type: [place] artery [place] vs. transplanted heart: [place] heart Elevated troponin R77.8 ESRD on peritoneal dialysis N18.6; Z99.2 Gout attack M10.9 H/O heart artery stent Z95.5 Hyperlipidemia E78.5 Hyperlipidemia type: unspecified Hypertension I10 Hypertension type: essential hypertension Paroxysmal atrial fibrillation I48.0 Peritoneal dialysis status Z99.2 Type 2 diabetes mellitus E11.9 (1) CAD (coronary artery disease) Associated angina: without angina Coronary Disease-Associated Artery/Lesion type: [place] artery [place] vs. transplanted heart: [place] heart Qualified Code(s): I25.10 - Atherosclerotic heart disease of [place] coronary artery without angina pectoris (2) Hyperlipidemia Hyperlipidemia type: unspecified Qualified Code(s): E78.5 - Hyperlipidemia, unspecified (3) Hypertension Hypertension type: essential hypertension Qualified Code(s): I10 - Essential (primary) hypertension
[2022-11-09] MEDS: INSULIN LISPRO 100 UNITS/ML PEN SC SCH (21:29)
[2022-11-09] MEDS: CLOTRIMAZOLE VAGINAL CR 7 APPLN/45 GM TUBE PV SCH (21:31)
[2022-11-09] MEDS: ACETAMINOPHEN 325 MG TAB PO PRN (23:47)
[2022-11-09] MEDS: ONDANSETRON INJ 2 MG/ML 2 ML VIAL IV PRN (23:48)
[2022-11-10 00:56] LABS: A calco-baum cmplx NotReported Not Detected (NotDetected); Bact fragilis Not Reported Not Detected (NotDetected); C auris Not Reported Not Detected (NotDetected); CTX-M Resistant Gene Not Detected (NotDetected); Calbicans Not Reported Not Detected (NotDetected); Candida glabrata Not Reported Not Detected (NotDetected); Candida krusei Not Reported Not Detected (NotDetected); Cneoformans/gatti Not Reported Not Detected (NotDetected); Cparapsilosis Not Reported Not Detected (NotDetected); Ctropicalis Not Reported Not Detected (NotDetected); E cloacae compx Not Reported Not Detected (NotDetected); Efaecalis Not Reported Not Detected (NotDetected); Efaecium Not Reported Not Detected (NotDetected); Enterobacterales DETECTED (NotDetected); Enterobacterales Not Reported DETECTED (NotDetected); Escherichia coli Not Reported DETECTED (NotDetected); H influenzae Not Reported Not Detected (NotDetected); IMP Resistant Gene Not Detected (NotDetected); K aerogenes Not Reported Not Detected (NotDetected); KPC Resistant Gene Not Detected (NotDetected); Koxytoca Not Reported Not Detected (NotDetected); Kpneumoniae grp Not Reported Not Detected (NotDetected); Lmonocyt Not Reported Not Detected (NotDetected); N meningitidis Not Reported Not Detected (NotDetected); NDM Resistant Gene Not Detected (NotDetected); OXA 48 Like Resistant Gene Not Detected (NotDetected); P aeruginosa Not Reported Not Detected (NotDetected); Proteus spp Not Reported Not Detected (NotDetected); Salmonella spp Not Reported Not Detected (NotDetected); Smarcescens Not Reported Not Detected (NotDetected); Staph lugdunensis Not Reported Not Detected (NotDetected); Staph spp. Not Reported Not Detected (NotDetected); Staphaureus Not Reported Not Detected (NotDetected); Staphepi Not Reported Not Detected (NotDetected); Stenmaltophilia Not Reported Not Detected (NotDetected); Strep agal(GrpB) Not Reported Not Detected (NotDetected); Strep pneum Not Reported Not Detected (NotDetected); Strep pyog (GrpA) Not Reported Not Detected (NotDetected); Strep spp Not Reported Not Detected (NotDetected); VIM Resistant Gene Not Detected (NotDetected); mcr-1 Colistin Resistant Gene Not Detected (NotDetected)
--- NOTE | 2022-11-10 01:18 | Communication Note ---
Date of Service: November 10, 2022 Notified that patient's labs revealing gram negative bacilli. Additionally, patient is febrile (Tmax 38.4 C). Started patient on Zosyn, renally dosed at 2.25g IV q8h, and Tylenol prn for fever/pain. Repeat blood cx ordered. Resident Activity Tracking Resident Involvement: Resident Care Provided Care Provided: Adult [facility] Medicine
[2022-11-10] MEDS ORDERED: PIPERACILLIN/TAZOBACTAM 3.375 GM in DEXTROSE 5% 100 ML IV ONE (01:30)
--- NOTE | 2022-11-10 02:09 | Billing Data ---
Date of Service November 09, 2022 Coding Level of Care Code 51932 INT INP/OBS CARE
[2022-11-10] MEDS: INSULIN LISPRO 100 UNITS/ML PEN SC SCH ×4 (08:17→20:51)
[2022-11-10] MEDS: ACETAMINOPHEN 325 MG TAB PO PRN ×3 (08:17→20:48)
[2022-11-10] MEDS: APIXABAN 2.5 MG TAB PO SCH ×2 (08:18→20:47)
[2022-11-10] MEDS: ATORVASTATIN 40 MG TAB PO SCH (08:18)
[2022-11-10] MEDS: allopurinoL 100 MG TAB PO SCH (08:18)
[2022-11-10] MEDS: METOPROLOL TARTRATE 25 MG TAB PO SCH ×2 (08:19→20:47)
[2022-11-10] MEDS: CLOPIDOGREL BISULFATE 75 MG TAB PO SCH (08:19)
[2022-11-10] MEDS: ISOSORBIDE MONO EXTENDED REL 60 MG TABCR PO SCH (08:19)
[2022-11-10] MEDS: CLOTRIMAZOLE VAGINAL CR 7 APPLN/45 GM TUBE PV SCH (08:21)
[2022-11-10 10:44] LABS: Hematocrit (blood only) 26.7 % (34.1-44.9); Mean Corpuscular Hemoglobin 30.7 pg (25.0-34.0); Mean Corpuscular Hgb Conc 33.7 g/dL (32.0-36.0); Mean Corpuscular Volume 91.1 fL (80.0-100.0); Mean Platelet Volume 11.4 fL (9.4-12.3); Platelet Count 296 K/uL (130-400); RDW Coefficient of Variation 15.7 % (11.5-14.5); RDW Standard Deviation 52.7 fL (36.4-46.3); Red Blood Count 2.93 M/uL (3.93-5.22); White Blood Count 24.53 K/ul (4.8-10.8)
[2022-11-10 11:27] LABS: Albumin Globulin Ratio 0.7 (0.9-2); Albumin Level 2.7 gm/dl (3.4-5.0); BUN Creatinine Ratio 7.4 (10-20); Bilirubin,Total 0.5 mg/dl (0.2-1.0); Calcium 8.6 mg/dl (8.5-10.1); Creatinine Clr Calc Pharmacy 6.1 ml/min; Est GFR (Non-African American) 4.3 ml/min; Globulin 3.7 gm/dl (2.5-4.0); Total Protein 6.4 gm/dl (6.0-8.3)
[2022-11-10] MEDS: PIPERACILLIN/TAZOBACTAM 3.375 GM in DEXTROSE 5% 100 ML IV SCH ×2 (11:32→22:51)
[2022-11-10 11:42] LABS: Appearance Urine Turbid (Clear); Bacteria Urine Automated Negative (Negative); Bilirubin Urine Negative (Negative); Blood Urine 3+ (Negative); Color Urine Yellow; Epithelial Cell Urine Auto >30 /lpf (0-5); Glucose Urine UA 1+ (Negative); Ketones Urine Negative (Negative); Leukocyte Esterase Urine 3+ (Negative); Nitrite Urine Negative (Negative); Protein Urine 3+ (Negative); RBC Urine Automated >30 /hpf (0-4); Specific Gravity Urine 1.018 (1.000-1.030); Urobilinogen Urine Negative (Negative); WBC Urine Automated >30 /hpf (0-5); pH Urine 5.5 (4.5-7.5)
--- NOTE | 2022-11-10 11:44 | Cardiology Progress Note ---
Date of Service November 10, 2022 Assessment & Plan (1) Dyspnea: (2) Acute on chronic diastolic (congestive) heart failure: (3) CAD (coronary artery disease): (4) Elevated troponin: (5) Atrial fibrillation: (6) Anticoagulant long-term use: (7) Hypertension: Plan 1. Shortness of breath: She appears to have had significant fluid retention, her charted weights are not consistent enough to be of value. I do not believe she can be diuresed, we probably have to rely on dialysis to remove fluid. Although her chest x-ray does not show pulmonary edema her BNP is elevated and I think she does have shortness of breath probably due to congestive heart failure. 2. Congestive heart failure: She does not appear to have an acute myocardial infarction to suggest a cause for CHF. I believe it is fluid overload although her weight has not increased substantially, however her recorded weights are too variable to help assess her fluid status. Her left ventricular function remains normal and her wall motion is normal. She does have LVH and diastolic dysfunction. It is hard to tell but I suspect she needs to lose a little more fluid. 3. Coronary disease: She has known coronary artery disease, although there could be progression I do not think it is the primary cause of her presentation and do not think we should evaluate it at this time. 4. Elevated troponin: Her troponin was elevated but it peaked at a little over 600 and then trended down on her most recent measurement. I suspect it is on the basis of congestive heart failure and demand ischemia and I do not think invasive evaluation is indicated at this time. 5. Atrial fibrillation: She has a history of paroxysmal atrial fibrillation but we have not identified that on this admission and it probably is not related to her presentation. 6. Anticoagulation: She is on Eliquis, she should remain on an anticoagulant. 7. Hypertension: For the most part she is hypertensive and she does have significant left ventricular hypertrophy. Today her blood pressure is under good control however. Better control of her blood pressure would probably be indicated over the long run. She is on relatively low-dose metoprolol and this could be increased. This might also help with rate control during atrial fi brillation. I will leave that up to the primary service and nephrology however. 8. Aortic stenosis: She does have significant and possibly progressive aortic stenosis, but still there is no indication for intervention at this time. Admission and Anticipated Discharge Date Admission Date: November 09, 2022 Subjective She is feeling better today, her breathing is better. She tells me that her legs are weak and she cannot stand up by herself however. Denies chest discom fort. Physical Exam Physical Exam: Constitutional: Alert, cooperative and in no distress. HEENT: Unremarkable Neck: No jugular venous distention, carotid pulses are normal and equal bilaterally without bruits. Pulmonary: Decreased breath sounds but no rales on auscultation bilaterally. Cardiac: Regular rhythm with a grade 2/6 crescendo decrescendo murmur at the base, no gallop or rub. Abdomen: Soft, nontender with normal bowel sounds. Extremities: +1 right and +1 left pretibial edema. Neurologic: No focal findings. Gait was not tested. Skin: No rash, ecchymoses or petechiae. Results & Data ([facility]) Vital Signs (Past 12 Hours) Vital Signs Temp Pulse Pulse Pulse Resp BP Pulse Ox 11/10/22 09:20 37 C 89 20 11/10/22 08:02 37.0 C 89 20 131/81 93 11/10/22 07:35 70 11/10/22 07:17 11/10/22 02:54 11/10/22 02:49 36.8 C 63 18 121/71 91 11/10/22 01:53 36.9 C 71 18 100/64 92 11/10/22 01:08 37.7 C H 11/09/22 23:43 38.4 C H 109 H 18 162/82 H 92 O2 Del Method 11/10/22 09:20 11/10/22 08:02 Room Air 11/10/22 07:35 11/10/22 07:17 Room Air 11/10/22 02:54 Room Air 11/10/22 02:49 Room Air 11/10/22 01:53 Room Air 11/10/22 01:08 11/09/22 23:43 Room Air Laboratory Results Cardiac Enzymes 11/10/22 Range/Units 10:25 AST 18 (13-39) U/L CBC 11/10/22 Range/Units 10:25 WBC 24.53 H (4.8-10.8) K/ul RBC 2.93 L (3.93-5.22) M/uL Hgb 9.0 L (12.0-16.0) g/dl Hct 26.7 L (34.1-44.9) % Plt Count 296 (130-400) K/uL Comprehensive Metabolic Panel 11/10/22 Range/Units 10:25 Sodium 133 L (136-145) mmol/L Potassium 4.0 (3.5-5.1) mmol/L Chloride 92 L (98-107) mmol/L Carbon Dioxide 24 (21-32) mmol/L BUN 62 H (6-23) mg/dl Creatinine 8.40 H* (0.6-1.2) mg/dl Glucose 152 H (70-99(Fasting)) mg/dl Calcium 8.6 (8.5-10.1) mg/dl AST 18 (13-39) U/L ALT 20 (7-52) U/L Alkaline Phosphatase 105 H (34-104) U/L Total Protein 6.4 (6.0-8.3) gm/dl Albumin 2.7 L (3.4-5.0) gm/dl Intake and Output 11/09/22 11/10/22 11/10/22 22:59 06:59 14:59 Intake Total 320 / 655 235 / 655 Output Total 1815 / 1815 Balance 320 / 655 235 / 655 -181 / -1815 Intake: IV 200 / 415 115 / 415 Magnesium Sulfate / D5w 1 gm In 200 / 300 100 ml @ 50 mls/hr IV Q2H [facility] Rx#:[id number] Piperacillin/Tazobactam 3.375 115 / 115 gm In Dextrose 5% 100 ml @ 230 mls/hr IV ONE ONE Rx#:[id number] Oral 120 / 240 120 / 240 Output: Peritoneal Dialysis 1815 Ultrafiltration Amount Other: Weight 78.9 kg 82.1 kg Weight Measurement Method Built in [facility] Diagnostic Findings Telemetry: Sinus rhythm, no significant arrhythmia PG Care Time/CCT Total # of Minutes Spent Total Time Spent with Patient: Total time spent is greater than 50% in coordination of care (as documented) at patient's floor/unit and/or counseling patient: Coding Level of Care Code 64532 SUB INP/OBS CARE 2/35MIN Diagnoses Dyspnea R06.00 Acute on chronic diastolic (congestive) heart failure I50.33 CAD (coronary artery disease) I25.10 Coronary Disease-Associated Artery/Lesion type: [place] artery [place] vs. transplanted heart: [place] heart Associated angina: without angina Elevated troponin R77.8 Atrial fibrillation I48.91 Anticoagulant long-term use Z79.01 Hypertension I10 Hypertension type: essential hypertension (1) CAD (coronary artery disease) Coronary Disease-Associated Artery/Lesion type: [place] artery [place] vs. transplanted heart: [place] heart Associated angina: without angina Qualified Code(s): I25.10 - Atherosclerotic heart disease of [place] coronary artery without angina pectoris (2) Hypertension Hypertension type: essential hypertension Qualified Code(s): I10 - Essential (primary) hypertension
[2022-11-10 13:25] LABS: Estimated Average Glucose 180 mg/dl; Hemoglobin A1C 7.9 % (4.5-5.6)
--- NOTE | 2022-11-10 13:56 | Nephrology Progress Note ---
Date of Service November 10, 2022 Assessment & Plan (1) ESRD on peritoneal dialysis: Plan: * Outpatient NCCPD regimen: 4 exchanges/night, 1 hr 45 min dwell, 2.7 L vol, 2.5% delflex, LBO 1000 cc * Approprite diuresis overnight with added 4.5%. * Patient refuses LBO * Continue combination 2.5% + 4.25% delflex tonight due to patient's HTN and LE swelling * Ayana denies any concerning feature of peritonitis. Effluent this morning clear. Fluid will be sent for cell count and culture tomorrow given + blood culture. * Zosyn appropriately dosed for PD (2) Dyspnea: Plan: * Patient was breathing comfortably on RA at the time of my evaluation * CXR film reviewed - no CHF, infiltrate * Laboratory results show mild leukocytosis but patient has tested negative for RSV/COVID/influenza in the EMD * Improving with diuresis (3) Hypertension: Plan: * BP acceptable * Tolerating current therapy well (4) Aortic stenosis: Plan: * Cardiology consultation appreciated (5) Atrial fibrillation: Plan: * Controlled with Metoprolol * Anticoagulated with apixaban (6) Right leg swelling: Plan: * Chronic, attributed to venous insufficiency * Duplex negative (7) Weakness: Plan: * Will need PT evaluation (8) Yeast infection of the vagina: Plan: * Fluconazole 150 mg x 1 provided yesterday for vaginal yeast infection (9) Anemia: Plan: * Chronic, stable * Maintained on Micera as outpatient * Update iron profile with next labs (10) Positive blood culture: Plan: * 1/2 +GNR yesterday * No obvious source, denies evidence of peritonitis * Will send next effluent * Follow up cultures pending * Started on Zosyn Admission and Anticipated Discharge Date Admission Date: November 09, 2022 Subjective No acute events overnight. Ayana is feeling better this morning. She tolerated PD well. Net UF 1.8 L. Denies any fevers or chills. Denies cloudy effluent or fibrin. No concerning history of touch contamination. No chest pain or palpitations. Reports some persistent GI symptoms including loose stools on a daily basis for several weeks. Ayana is taking dicyclomine of a regular basis at home for abdominal discomfort. Review of Systems Review of Systems: All systems reviewed & are unremarkable except as noted in HPI & below Physical Exam 2 Constitutional: not in distress Eyes: PERRL, conjunctivae normal, anicteric sclerae ENMT: external ear and nose normal, oropharynx normal Neck: trachea midline, no thyromegaly Respiratory: normal respiratory effort, lungs clear to auscultation Cardiovascular: Rate/Rhythm: regular rate and regular rhythm Heart Sounds: + murmur Extremities: + edema (1+ pretibial edema R leg) and + AV fistula (thrombosed) Gastrointestinal (Abdomen): Inspection/Auscultation: normal bowel sounds (RLQ PD exit site w/ clean dry dressing in place) Percussion/Palpation: abdomen soft; abdomen nontender and no guarding Neurologic: awake; not confused Results & Data ([facility]) Vital Signs (Past 12 Hours) Vital Signs Temp Pulse Pulse Pulse Resp BP Pulse Ox 11/10/22 12:50 36.7 C 70 18 108/77 93 11/10/22 09:20 37 C 89 20 11/10/22 08:02 37.0 C 89 20 131/81 93 11/10/22 07:35 70 11/10/22 07:17 11/10/22 02:54 11/10/22 02:49 36.8 C 63 18 121/71 91 11/10/22 01:53 36.9 C 71 18 100/64 92 O2 Del Method 11/10/22 12:50 Room Air 11/10/22 09:20 11/10/22 08:02 Room Air 11/10/22 07:35 11/10/22 07:17 Room Air 11/10/22 02:54 Room Air 11/10/22 02:49 Room Air 11/10/22 01:53 Room Air Laboratory Results Laboratory Results - last 24 hr 11/09/22 11/09/22 11/09/22 10:36 14:56 16:32 WBC RBC Hgb Hct MCV MCH MCHC RDW Std Deviation RDW Coeff of Ekaterina Plt Count MPV Sodium Potassium Chloride Carbon Dioxide Anion Gap BUN Creatinine Est Cr Clr Drug Dosing Est GFR ( Amer) Est GFR (Non-Af Amer) BUN/Creatinine Ratio Glucose POC Glucose 157 H Estimat Average Glucose Hemoglobin A1c Calcium Total Bilirubin AST ALT Alkaline Phosphatase Total Protein Albumin Globulin Albumin/Globulin Ratio Urine Color Urine Appearance Urine pH Ur Specific [place] Urine Protein Urine Glucose (UA) Urine Ketones Urine Blood Urine Nitrite Urine Bilirubin Urine Urobilinogen Ur Leukocyte Esterase Urine WBC (Auto) Urine RBC (Auto) U Hyaline Cast (Auto) U Epithel Cells (Auto) Urine Bacteria (Auto) Ur Renal Epithelial Cell Urine Crystals Enterobacterales (PCR) DETECTED A E. coli (PCR) DETECTED A Hep Bs Antigen Pending Hep Bs Ag Confirmation Pending Hep Bs Antibody, Quant Pending mcr-1 [place] Res Gene PCR Not Detected blaIMP Car res Gene PCR Not Detected KPC-Carbap Res Gene PCR Not Detected blaNDM Car Res Gene PCR Not Detected OXA-48 Carbapenem Resis Gene (PCR) Not Detected blaVIM Car Res Gene PCR Not Detected CTX-M Gene Resistance (PCR) Not Detected Bld Cult ID Panel PCR See PCR Comment 11/09/22 11/09/22 11/09/22 20:04 20:06 21:28 WBC RBC Hgb Hct MCV MCH MCHC RDW Std Deviation RDW Coeff of Ekaterina Plt Count MPV Sodium Potassium Chloride Carbon Dioxide Anion Gap BUN Creatinine Est Cr Clr Drug Dosing Est GFR ( Amer) Est GFR (Non-Af Amer) BUN/Creatinine Ratio Glucose POC Glucose 360 H* 380 H* 331 H* Estimat Average Glucose Hemoglobin A1c Calcium Total Bilirubin AST ALT Alkaline Phosphatase Total Protein Albumin Globulin Albumin/Globulin Ratio Urine Color Urine Appearance Urine pH Ur Specific [place] Urine Protein Urine Glucose (UA) Urine Ketones Urine Blood Urine Nitrite Urine Bilirubin Urine Urobilinogen Ur Leukocyte Esterase Urine WBC (Auto) Urine RBC (Auto) U Hyaline Cast (Auto) U Epithel Cells (Auto) Urine Bacteria (Auto) Ur Renal Epithelial Cell Urine Crystals Enterobacterales (PCR) E. coli (PCR) Hep Bs Antigen Hep Bs Ag Confirmation Hep Bs Antibody, Quant mcr-1 [place] Res Gene PCR blaIMP Car res Gene PCR KPC-Carbap Res Gene PCR blaNDM Car Res Gene PCR OXA-48 Carbapenem Resis Gene (PCR) blaVIM Car Res Gene PCR CTX-M Gene Resistance (PCR) Bld Cult ID Panel PCR 11/10/22 11/10/22 11/10/22 08:01 10:25 10:25 WBC 24.53 H RBC 2.93 L Hgb 9.0 L Hct 26.7 L MCV 91.1 MCH 30.7 MCHC 33.7 RDW Std Deviation 52.7 H RDW Coeff of Ekaterina 15.7 H Plt Count 296 MPV 11.4 Sodium 133 L Potassium 4.0 Chloride 92 L Carbon Dioxide 24 Anion Gap 17 H BUN 62 H Creatinine 8.40 H* Est Cr Clr Drug Dosing 6.1 Est GFR ( Amer) 5.0 Est GFR (Non-Af Amer) 4.3 BUN/Creatinine Ratio 7.4 L Glucose 152 H POC Glucose 117 H Estimat Average Glucose Hemoglobin A1c Calcium 8.6 Total Bilirubin 0.5 AST 18 ALT 20 Alkaline Phosphatase 105 H Total Protein 6.4 Albumin 2.7 L Globulin 3.7 Albumin/Globulin Ratio 0.7 L Urine Color Urine Appearance Urine pH Ur Specific [place] Urine Protein Urine Glucose (UA) Urine Ketones Urine Blood Urine Nitrite Urine Bilirubin Urine Urobilinogen Ur Leukocyte Esterase Urine WBC (Auto) Urine RBC (Auto) U Hyaline Cast (Auto) U Epithel Cells (Auto) Urine Bacteria (Auto) Ur Renal Epithelial Cell Urine Crystals Enterobacterales (PCR) E. coli (PCR) Hep Bs Antigen Hep Bs Ag Confirmation Hep Bs Antibody, Quant mcr-1 [place] Res Gene PCR blaIMP Car res Gene PCR KPC-Carbap Res Gene PCR blaNDM Car Res Gene PCR OXA-48 Carbapenem Resis Gene (PCR) blaVIM Car Res Gene PCR CTX-M Gene Resistance (PCR) Bld Cult ID Panel PCR 11/10/22 11/10/22 11/10/22 10:25 11:18 12:21 WBC RBC Hgb Hct MCV MCH MCHC RDW Std Deviation RDW Coeff of Ekaterina Plt Count MPV Sodium Potassium Chloride Carbon Dioxide Anion Gap BUN Creatinine Est Cr Clr Drug Dosing Est GFR ( Amer) Est GFR (Non-Af Amer) BUN/Creatinine Ratio Glucose POC Glucose 273 H Estimat Average Glucose 180 Hemoglobin A1c 7.9 H Calcium Total Bilirubin AST ALT Alkaline Phosphatase Total Protein Albumin Globulin Albumin/Globulin Ratio Urine Color Yellow Urine Appearance Turbid A Urine pH 5.5 Ur Specific [place] 1.018 Urine Protein 3+ H Urine Glucose (UA) 1+ H Urine Ketones Negative Urine Blood 3+ H Urine Nitrite Negative Urine Bilirubin Negative Urine Urobilinogen Negative Ur Leukocyte Esterase 3+ H Urine WBC (Auto) >30 H Urine RBC (Auto) >30 H U Hyaline Cast (Auto) Not Reportable U Epithel Cells (Auto) >30 H Urine Bacteria (Auto) Negative Ur Renal Epithelial Cell Not Reportable Urine Crystals Not Reportable Enterobacterales (PCR) E. coli (PCR) Hep Bs Antigen Hep Bs Ag Confirmation Hep Bs Antibody, Quant mcr-1 [place] Res Gene PCR blaIMP Car res Gene PCR KPC-Carbap Res Gene PCR blaNDM Car Res Gene PCR OXA-48 Carbapenem Resis Gene (PCR) blaVIM Car Res Gene PCR CTX-M Gene Resistance (PCR) Bld Cult ID Panel PCR PG Care Time/CCT Total # of Minutes Spent Total Time Spent with Patient: Total time spent is greater than 50% in coordination of care (as documented) at patient's floor/unit and/or counseling patient: Coding Level of Care Code 74273 SUB INP/OBS CARE 3/50MIN Diagnoses ESRD on peritoneal dialysis N18.6; Z99.2 Dyspnea R06.00 Hypertension I10 Hypertension type: essential hypertension Aortic stenosis I35.0 Atrial fibrillation I48.91 Right leg swelling M79.89 Weakness R53.1 Yeast infection of the vagina B37.31 Anemia D64.9 Positive blood culture R78.81 (1) Hypertension Hypertension type: essential hypertension Qualified Code(s): I10 - Essential (primary) hypertension
--- NOTE | 2022-11-10 16:35 | Hospitalist Progress Note ---
Date of Service November 10, 2022 Assessment & Plan (1) Septicemia: Plan: 72yo female with a history of ESRD (on peritoneal dialysis), paroxysmal atrial fibrillation, HTN, HLD, CAD (s/p stent), T2DM, HFpEF, aortic stenosis, anemia of chronic disease, and gout presents with a few-day history of SOB and LE edema. On arrival she was found to have a significant leukocytosis. She had recently been treated for a UTI and was complaining of vaginal yeast infection symptoms. She denies abdominal pains. Blood cultures obtained upon admission After admission, she then spiked a fever and was growing E. coli in the blood cultures. With tachycardia, leukocytosis, and bacteremia as a source, likely UTI and less likely from peritonitis as she does not have clinical symptoms of peritonitis -Continue Zosyn -Repeat blood cultures until sterile -Check urinalysis and urine culture -Check peritoneal fluid culture -Tylenol as needed for fevers -Follow CBC, BMP in the morning -Consider abdominal imaging (2) Breath shortness: Plan: Related to sepsis Chest x-ray without significant abnormalities Could also be some volume overload-managed by dialysis (3) Anemia due to chronic kidney disease: Plan: Hemoglobin low but stable at 9.0 Checking iron studies in the morning Likely anemia of chronic disease (4) Yeast infection of the vagina: Plan: Continue clotrimazole vaginal suppositories x7 days Received 1 dose of fluconazole 150 Mg p.o. x1 on 11/09 Symptoms are improving (5) Aortic stenosis: Plan: With murmur on exam, echocardiogram here with moderate to severe aortic stenosis Follow as an outpatient with cardiology (6) Atrial fibrillation: Plan: Paroxysmal Is in sinus rhythm here Continue Eliquis although I suspect dosing could be increased to 5 Mg p.o. twice daily-we will check with cardiology and/or nephrology Continue metoprolol 25 Mg p.o. twice daily and consider uptitrating dose if able to as per cardiology (7) CAD (coronary artery disease): Plan: With a history of RCA stent 09/2018, left circumflex stent 08/2010 Continue home apixaban, atorvastatin, Plavix, isosorbide, metoprolol With elevated troponin peaking at 663 shortly after admission, likely myocardial demand ischemia in the setting of sepsis Echocardiogram here without wall motion abnormalities, but with severe LVH, moderate-severe aortic stenosis (8) ESRD on peritoneal dialysis: Plan: Continue peritoneal dialysis with no daytime dwell as per nephrology due to patient preference Follow labs Continue Nephrocaps, calcitriol (9) Hyperlipidemia: Plan: Continue statin (10) Hypertension: Plan: Blood pressures controlled Continue metoprolol, isosorbide Holding home nifedipine (11) Type 2 diabetes mellitus: Plan: With significant hyperglycemia due to sepsis, now improved Continue insulin and adjust-tighten down goal range Restart home Lantus Hemoglobin A1c fairly well-controlled 7.6% Plan DVT prophylaxis Eliquis Disposition-continued stay on medical floor telemetry Consult PT/OT Admission and Anticipated Discharge Date Admission Date: November 09, 2022 Subjective Patient spiked a fever overnight and blood cultures turned positive for E. coli on [employer] PCR. When I saw her earlier in the day she reported she was feeling much better was starting to have chills again. Her shortness of breath was resolved but later in the evening I got a call that her oxygen requirement was going up as her fever was spiking. She also was wheezing and received nebulizer treatment. She denies ongoing abdominal pains. Did have 1 loose stool today. No chest pains. Her vaginal yeast infection symptoms seem to be improving. Telemetry with normal sinus rhythm with rates in the 70s to 80s Review of Systems Review of Systems: All systems reviewed & are unremarkable except as noted in HPI & below Physical Exam Constitutional: WD/WN, vitals as above ENMT: external ear and nose normal, oropharynx normal Neck: trachea midline, no thyromegaly Respiratory: normal respiratory effort, lungs clear to auscultation Cardiovascular: Rate/Rhythm: regular rate and regular rhythm Heart Sounds: + murmur (3/6 [place] at the RUSB) Extremities: + edema (1+ pitting edema to the proximal tibia bilaterally) Chest (Breasts): Chest: normal inspection of chest Gastrointestinal (Abdomen): Inspection/Auscultation: normal bowel sounds; + abdomen abnormal to inspection (Peritoneal dialysis catheter present in RLQ) Percussion/Palpation: abdomen nontender Musculoskeletal: Extremities: extremities normal to inspection; no cyanosis and no clubbing Skin: no rashes, warm and dry Neurologic: moves all extremities and awake; no focal motor deficits Psychiatric: A+Ox3, euthymic affect Results & Data Results & Data ([facility]) Vital Signs (Past 12 Hours) Vital Signs Temp Pulse Pulse Pulse Resp BP Pulse Ox 11/10/22 12:50 36.7 C 70 18 108/77 93 11/10/22 09:20 37 C 89 20 11/10/22 08:02 37.0 C 89 20 131/81 93 11/10/22 07:35 70 11/10/22 07:17 O2 Del Method 11/10/22 12:50 Room Air 11/10/22 09:20 11/10/22 08:02 Room Air 11/10/22 07:35 11/10/22 07:17 Room Air Laboratory Results 11/10/22 11/10/22 11/10/22 Range/Units 16:48 12:21 11:18 WBC (4.8-10.8) K/ul RBC (3.93-5.22) M/uL Hgb (12.0-16.0) g/dl Hct (34.1-44.9) % MCV (80.0-100.0) fL MCH (25.0-34.0) pg MCHC (32.0-36.0) g/dL RDW Std Deviation (36.4-46.3) fL RDW Coeff of Ekaterina (11.5-14.5) % Plt Count (130-400) K/uL MPV (9.4-12.3) fL Sodium (136-145) mmol/L Potassium (3.5-5.1) mmol/L Chloride (98-107) mmol/L Carbon Dioxide (21-32) mmol/L Anion Gap (3-11) BUN (6-23) mg/dl Creatinine (0.6-1.2) mg/dl Est Cr Clr Drug Dosing ml/min Est GFR ( Amer) ml/min Est GFR (Non-Af Amer) ml/min BUN/Creatinine Ratio (10-20) Glucose (70-99(Fasting)) mg/dl POC Glucose 128 H 273 H (70-99) mg/dl Estimat Average Glucose mg/dl Hemoglobin A1c (4.5-5.6) % Calcium (8.5-10.1) mg/dl Total Bilirubin (0.2-1.0) mg/dl AST (13-39) U/L ALT (7-52) U/L Alkaline Phosphatase (34-104) U/L Total Protein (6.0-8.3) gm/dl Albumin (3.4-5.0) gm/dl Globulin (2.5-4.0) gm/dl Albumin/Globulin Ratio (0.9-2) Urine Color Yellow Urine Appearance Turbid A (Clear) Urine pH 5.5 (4.5-7.5) Ur Specific [place] 1.018 (1.000-1.030) Urine Protein 3+ H (Negative) Urine Glucose (UA) 1+ H (Negative) Urine Ketones Negative (Negative) Urine Blood 3+ H (Negative) Urine Nitrite Negative (Negative) Urine Bilirubin Negative (Negative) Urine Urobilinogen Negative (Negative) Ur Leukocyte Esterase 3+ H (Negative) Urine WBC (Auto) >30 H (0-5) /hpf Urine RBC (Auto) >30 H (0-4) /hpf U Hyaline Cast (Auto) Not Reportable U Epithel Cells (Auto) >30 H (0-5) /lpf Urine Bacteria (Auto) Negative (Negative) Ur Renal Epithelial Cell Not Reportable Urine Crystals Not Reportable Enterobacterales (PCR) (NotDetected) E. coli (PCR) (NotDetected) mcr-1 [place] Res Gene PCR (NotDetected) blaIMP Car res Gene PCR (NotDetected) KPC-Carbap Res Gene PCR (NotDetected) blaNDM Car Res Gene PCR (NotDetected) OXA-48 Carbapenem Resis Gene (PCR) (NotDetected) blaVIM Car Res Gene PCR (NotDetected) CTX-M Gene Resistance (PCR) (NotDetected) Bld Cult ID Panel PCR (NotDetected) 11/10/22 11/10/22 11/10/22 Range/Units 10:25 10:25 10:25 WBC 24.53 H (4.8-10.8) K/ul RBC 2.93 L (3.93-5.22) M/uL Hgb 9.0 L (12.0-16.0) g/dl Hct 26.7 L (34.1-44.9) % MCV 91.1 (80.0-100.0) fL MCH 30.7 (25.0-34.0) pg MCHC 33.7 (32.0-36.0) g/dL RDW Std Deviation 52.7 H (36.4-46.3) fL RDW Coeff of Ekaterina 15.7 H (11.5-14.5) % Plt Count 296 (130-400) K/uL MPV 11.4 (9.4-12.3) fL Sodium 133 L (136-145) mmol/L Potassium 4.0 (3.5-5.1) mmol/L Chloride 92 L (98-107) mmol/L Carbon Dioxide 24 (21-32) mmol/L Anion Gap 17 H (3-11) BUN 62 H (6-23) mg/dl Creatinine 8.40 H* (0.6-1.2) mg/dl Est Cr Clr Drug Dosing 6.1 ml/min Est GFR ( Amer) 5.0 ml/min Est GFR (Non-Af Amer) 4.3 ml/min BUN/Creatinine Ratio 7.4 L (10-20) Glucose 152 H (70-99(Fasting)) mg/dl POC Glucose (70-99) mg/dl Estimat Average Glucose 180 mg/dl Hemoglobin A1c 7.9 H (4.5-5.6) % Calcium 8.6 (8.5-10.1) mg/dl Total Bilirubin 0.5 (0.2-1.0) mg/dl AST 18 (13-39) U/L ALT 20 (7-52) U/L Alkaline Phosphatase 105 H (34-104) U/L Total Protein 6.4 (6.0-8.3) gm/dl Albumin 2.7 L (3.4-5.0) gm/dl Globulin 3.7 (2.5-4.0) gm/dl Albumin/Globulin Ratio 0.7 L (0.9-2) Urine Color Urine Appearance (Clear) Urine pH (4.5-7.5) Ur Specific [place] (1.000-1.030) Urine Protein (Negative) Urine Glucose (UA) (Negative) Urine Ketones (Negative) Urine Blood (Negative) Urine Nitrite (Negative) Urine Bilirubin (Negative) Urine Urobilinogen (Negative) Ur Leukocyte Esterase (Negative) Urine WBC (Auto) (0-5) /hpf Urine RBC (Auto) (0-4) /hpf U Hyaline Cast (Auto) U Epithel Cells (Auto) (0-5) /lpf Urine Bacteria (Auto) (Negative) Ur Renal Epithelial Cell Urine Crystals Enterobacterales (PCR) (NotDetected) E. coli (PCR) (NotDetected) mcr-1 [place] Res Gene PCR (NotDetected) blaIMP Car res Gene PCR (NotDetected) KPC-Carbap Res Gene PCR (NotDetected) blaNDM Car Res Gene PCR (NotDetected) OXA-48 Carbapenem Resis Gene (PCR) (NotDetected) blaVIM Car Res Gene PCR (NotDetected) CTX-M Gene Resistance (PCR) (NotDetected) Bld Cult ID Panel PCR (NotDetected) 11/10/22 11/09/22 11/09/22 Range/Units 08:01 21:28 20:06 WBC (4.8-10.8) K/ul RBC (3.93-5.22) M/uL Hgb (12.0-16.0) g/dl Hct (34.1-44.9) % MCV (80.0-100.0) fL MCH (25.0-34.0) pg MCHC (32.0-36.0) g/dL RDW Std Deviation (36.4-46.3) fL RDW Coeff of Ekaterina (11.5-14.5) % Plt Count (130-400) K/uL MPV (9.4-12.3) fL Sodium (136-145) mmol/L Potassium (3.5-5.1) mmol/L Chloride (98-107) mmol/L Carbon Dioxide (21-32) mmol/L Anion Gap (3-11) BUN (6-23) mg/dl Creatinine (0.6-1.2) mg/dl Est Cr Clr Drug Dosing ml/min Est GFR ( Amer) ml/min Est GFR (Non-Af Amer) ml/min BUN/Creatinine Ratio (10-20) Glucose (70-99(Fasting)) mg/dl POC Glucose 117 H 331 H* 380 H* (70-99) mg/dl Estimat Average Glucose mg/dl Hemoglobin A1c (4.5-5.6) % Calcium (8.5-10.1) mg/dl Total Bilirubin (0.2-1.0) mg/dl AST (13-39) U/L ALT (7-52) U/L Alkaline Phosphatase (34-104) U/L Total Protein (6.0-8.3) gm/dl Albumin (3.4-5.0) gm/dl Globulin (2.5-4.0) gm/dl Albumin/Globulin Ratio (0.9-2) Urine Color Urine Appearance (Clear) Urine pH (4.5-7.5) Ur Specific [place] (1.000-1.030) Urine Protein (Negative) Urine Glucose (UA) (Negative) Urine Ketones (Negative) Urine Blood (Negative) Urine Nitrite (Negative) Urine Bilirubin (Negative) Urine Urobilinogen (Negative) Ur Leukocyte Esterase (Negative) Urine WBC (Auto) (0-5) /hpf Urine RBC (Auto) (0-4) /hpf U Hyaline Cast (Auto) U Epithel Cells (Auto) (0-5) /lpf Urine Bacteria (Auto) (Negative) Ur Renal Epithelial Cell Urine Crystals Enterobacterales (PCR) (NotDetected) E. coli (PCR) (NotDetected) mcr-1 [place] Res Gene PCR (NotDetected) blaIMP Car res Gene PCR (NotDetected) KPC-Carbap Res Gene PCR (NotDetected) blaNDM Car Res Gene PCR (NotDetected) OXA-48 Carbapenem Resis Gene (PCR) (NotDetected) blaVIM Car Res Gene PCR (NotDetected) CTX-M Gene Resistance (PCR) (NotDetected) Bld Cult ID Panel PCR (NotDetected) 11/09/22 11/09/22 Range/Units 20:04 10:36 WBC (4.8-10.8) K/ul RBC (3.93-5.22) M/uL Hgb (12.0-16.0) g/dl Hct (34.1-44.9) % MCV (80.0-100.0) fL MCH (25.0-34.0) pg MCHC (32.0-36.0) g/dL RDW Std Deviation (36.4-46.3) fL RDW Coeff of Ekaterina (11.5-14.5) % Plt Count (130-400) K/uL MPV (9.4-12.3) fL Sodium (136-145) mmol/L Potassium (3.5-5.1) mmol/L Chloride (98-107) mmol/L Carbon Dioxide (21-32) mmol/L Anion Gap (3-11) BUN (6-23) mg/dl Creatinine (0.6-1.2) mg/dl Est Cr Clr Drug Dosing ml/min Est GFR ( Amer) ml/min Est GFR (Non-Af Amer) ml/min BUN/Creatinine Ratio (10-20) Glucose (70-99(Fasting)) mg/dl POC Glucose 360 H* (70-99) mg/dl Estimat Average Glucose mg/dl Hemoglobin A1c (4.5-5.6) % Calcium (8.5-10.1) mg/dl Total Bilirubin (0.2-1.0) mg/dl AST (13-39) U/L ALT (7-52) U/L Alkaline Phosphatase (34-104) U/L Total Protein (6.0-8.3) gm/dl Albumin (3.4-5.0) gm/dl Globulin (2.5-4.0) gm/dl Albumin/Globulin Ratio (0.9-2) Urine Color Urine Appearance (Clear) Urine pH (4.5-7.5) Ur Specific [place] (1.000-1.030) Urine Protein (Negative) Urine Glucose (UA) (Negative) Urine Ketones (Negative) Urine Blood (Negative) Urine Nitrite (Negative) Urine Bilirubin (Negative) Urine Urobilinogen (Negative) Ur Leukocyte Esterase (Negative) Urine WBC (Auto) (0-5) /hpf Urine RBC (Auto) (0-4) /hpf U Hyaline Cast (Auto) U Epithel Cells (Auto) (0-5) /lpf Urine Bacteria (Auto) (Negative) Ur Renal Epithelial Cell Urine Crystals Enterobacterales (PCR) DETECTED A (NotDetected) E. coli (PCR) DETECTED A (NotDetected) mcr-1 [place] Res Gene PCR Not Detected (NotDetected) blaIMP Car res Gene PCR Not Detected (NotDetected) KPC-Carbap Res Gene PCR Not Detected (NotDetected) blaNDM Car Res Gene PCR Not Detected (NotDetected) OXA-48 Carbapenem Resis Gene (PCR) Not Detected (NotDetected) blaVIM Car Res Gene PCR Not Detected (NotDetected) CTX-M Gene Resistance (PCR) Not Detected (NotDetected) Bld Cult ID Panel PCR See PCR Comment (NotDetected) PG Care Time/CCT Total # of Minutes Spent Total Time Spent with Patient: Total time spent is greater than 50% in coordination of care (as documented) at patient's floor/unit and/or counseling patient: Coding Level of Care Code 71830 SUB INP/OBS CARE 3/50MIN Diagnoses Septicemia A41.9 Breath shortness R06.02 Anemia due to chronic kidney disease N18.9; D63.1 Yeast infection of the vagina B37.31 Aortic stenosis I35.0 Atrial fibrillation I48.91 CAD (coronary artery disease) I25.10 Associated angina: without angina Coronary Disease-Associated Artery/Lesion type: [place] artery [place] vs. transplanted heart: [place] heart ESRD on peritoneal dialysis N18.6; Z99.2 Hyperlipidemia E78.5 Hyperlipidemia type: unspecified Hypertension I10 Hypertension type: essential hypertension Type 2 diabetes mellitus E11.9 (1) CAD (coronary artery disease) Associated angina: without angina Coronary Disease-Associated Artery/Lesion type: [place] artery [place] vs. transplanted heart: [place] heart Qualified Code(s): I25.10 - Atherosclerotic heart disease of [place] coronary artery without angina pectoris (2) Hyperlipidemia Hyperlipidemia type: unspecified Qualified Code(s): E78.5 - Hyperlipidemia, unspecified (3) Hypertension Hypertension type: essential hypertension Qualified Code(s): I10 - Essential (primary) hypertension
[2022-11-10] MEDS: ONDANSETRON INJ 2 MG/ML 2 ML VIAL IV PRN (16:36)
[2022-11-10] MEDS ORDERED: ALBUT/IPRATROP 3MG/0.5MG NEB 3 ML VIAL NEB PRN (17:54)
[2022-11-10] MEDS: LANTUS PER UNIT CHARGE SQ SCH (20:51)
[2022-11-11] MEDS: ACETAMINOPHEN 325 MG TAB PO PRN ×2 (05:58→18:10)
[2022-11-11] MEDS: LANTUS PER UNIT CHARGE SQ SCH ×2 (09:06→20:47)
[2022-11-11] MEDS: CALCITRIOL 0.25 MCG CAPSULE PO SCH (09:07)
[2022-11-11] MEDS: NEPHROCAPS PO SCH (09:07)
[2022-11-11] MEDS: ATORVASTATIN 40 MG TAB PO SCH (09:08)
[2022-11-11] MEDS: CLOPIDOGREL BISULFATE 75 MG TAB PO SCH (09:08)
[2022-11-11] MEDS: METOPROLOL TARTRATE 25 MG TAB PO SCH ×2 (09:08→20:45)
[2022-11-11] MEDS: allopurinoL 100 MG TAB PO SCH (09:08)
[2022-11-11] MEDS: ISOSORBIDE MONO EXTENDED REL 60 MG TABCR PO SCH (09:09)
[2022-11-11] MEDS: APIXABAN 2.5 MG TAB PO SCH ×2 (09:09→20:45)
[2022-11-11] MEDS: CLOTRIMAZOLE VAGINAL CR 7 APPLN/45 GM TUBE PV SCH (09:09)
[2022-11-11] MEDS: INSULIN LISPRO 100 UNITS/ML PEN SC SCH ×5 (09:11→20:47)
[2022-11-11] MEDS: PIPERACILLIN/TAZOBACTAM 3.375 GM in DEXTROSE 5% 100 ML IV SCH (10:53)
[2022-11-11 11:53] LABS: Hematocrit (blood only) 29.1 % (34.1-44.9); Hemoglobin 9.7 g/dl (12.0-16.0); Mean Corpuscular Hemoglobin 30.6 pg (25.0-34.0); Mean Corpuscular Hgb Conc 33.3 g/dL (32.0-36.0); Mean Corpuscular Volume 91.8 fL (80.0-100.0); Mean Platelet Volume 11.7 fL (9.4-12.3); Platelet Count 294 K/uL (130-400); RDW Coefficient of Variation 15.9 % (11.5-14.5); RDW Standard Deviation 53.8 fL (36.4-46.3); Red Blood Count 3.17 M/uL (3.93-5.22); White Blood Count 19.09 K/ul (4.8-10.8)
[2022-11-11 12:09] LABS: Albumin Level 2.7 gm/dl (3.4-5.0); BUN Creatinine Ratio 7.4 (10-20); Calcium 8.7 mg/dl (8.5-10.1); Creatinine Clr Calc Pharmacy 6.5 ml/min; Est GFR (African American) 5.3 ml/min; Est GFR (Non-African American) 4.6 ml/min; Phosphorus 8.1 mg/dl (2.5-4.9); Potassium 3.8 mmol/L (3.5-5.1)
[2022-11-11] MEDS ORDERED: EPOETIN ALFA 20,000 UNITS/ML VIAL SQ ONE (13:00)
--- NOTE | 2022-11-11 13:01 | Nephrology Progress Note ---
Date of Service November 11, 2022 Assessment & Plan (1) ESRD on peritoneal dialysis: Plan: * Outpatient [facility] regimen: 4 exchanges/night, 1 hr 45 min dwell, 2.7 L vol, 2.5% delflex, LBO 1000 cc * Negative an additional 1.3 L overnight * Patient refuses LBO * Continue combination 2.5% + 4.25% delflex tonight due to patient's HTN and LE swelling * Ayana denies any concerning feature of peritonitis. Fluid has been sent for cell count, gram stain, and culture. * Ceftriaxone appropriately dosed for PD (2) Dyspnea: Plan: * Improved * CXR film reviewed - no CHF, infiltrate * Laboratory results show mild leukocytosis but patient has tested negative for RSV/COVID/influenza in the EMD * Improving with diuresis suggesting volume overload as contributing factor (3) Hypertension: Plan: * BP acceptable * Tolerating current therapy well (4) Aortic stenosis: Plan: * Cardiology consultation reviewed and TTE. severe with TRACIE 0.69 cm2 and V 426 cm/s. Will require continued outpatient follow up. (5) Atrial fibrillation: Plan: * Controlled with Metoprolol * Anticoagulated with apixaban (6) Right leg swelling: Plan: * Chronic, attributed to venous insufficiency * Duplex negative (7) Weakness: Plan: * PT/OT (8) Yeast infection of the vagina: Plan: * Fluconazole 150 mg x 1 provided on admission for vaginal yeast infection * Symptoms improving (9) Anemia: Plan: * Chronic, stable * Tsat 22 * Epogen 50197 units SQ today (10) Positive blood culture: Plan: * Espinal sensitive E coli * Zosyn switched to ceftriaxone * Thankfully, findings of peritonitis have not been noted; however, fluid has been sent * Urine +GNR, likely source of bacteremia Admission and Anticipated Discharge Date Admission Date: November 09, 2022 Subjective Tmax 38.1. Continue to feel cold. Denies rigors. Remains very tired. Did not sleep well. Appetite is poor. No BM. Passing gas and does not feel constipated. No abdominal pain. Denies dysuria. Denies pain. Tolerated HD overnight without complications. Effluent remains clear. Continues to express interest in rehab prior to returning home for weakness and debility. Review of Systems Review of Systems: All systems reviewed & are unremarkable except as noted in HPI & below Physical Exam Constitutional: well developed; no acute distress Eyes: sclerae not anicteric ENMT: external ear and nose normal, oropharynx normal Neck: trachea midline, no thyromegaly Respiratory: normal respiratory effort, lungs clear to auscultation Cardiovascular: Rate/Rhythm: regular rate and regular rhythm Heart Sounds: + murmur Extremities: + edema (1+ pretibial edema R leg) and + AV fistula (thrombosed) Gastrointestinal (Abdomen): Inspection/Auscultation: normal bowel sounds (RLQ PD exit site w/ clean dry dressing in place) Percussion/Palpation: abdomen soft; abdomen nontender and no guarding Neurologic: awake; not confused Results & Data ([facility]) Vital Signs (Past 12 Hours) Vital Signs Temp Pulse Pulse Pulse Resp BP Pulse Ox 11/11/22 11:44 37.2 C 73 20 140/81 99 11/11/22 08:00 11/11/22 09:10 36.8 C 70 20 11/11/22 07:26 36.8 C 70 20 126/65 97 11/11/22 07:25 75 11/11/22 03:00 37 C 76 20 100/57 L 96 11/11/22 01:06 O2 Del Method O2 Flow Rate 11/11/22 11:44 Nasal Cannula 2 11/11/22 08:00 Room Air 11/11/22 09:10 11/11/22 07:26 Nasal Cannula 2 11/11/22 07:25 11/11/22 03:00 Room Air 11/11/22 01:06 Nasal Cannula 2 Laboratory Results Laboratory Results - last 24 hr 11/10/22 11/10/22 11/10/22 10:25 11:18 16:48 WBC RBC Hgb Hct MCV MCH MCHC RDW Std Deviation RDW Coeff of Ekaterina Plt Count MPV Sodium Potassium Chloride Carbon Dioxide Anion Gap BUN Creatinine Est Cr Clr Drug Dosing Est GFR ( Amer) Est GFR (Non-Af Amer) BUN/Creatinine Ratio Glucose POC Glucose 128 H Estimat Average Glucose 180 Hemoglobin A1c 7.9 H Calcium Phosphorus Iron TIBC Unsaturated IBC Transferrin % Sat Ferritin Albumin Urine WBC (Auto) >30 H Urine RBC (Auto) >30 H U Hyaline Cast (Auto) Not Reportable U Epithel Cells (Auto) >30 H Urine Bacteria (Auto) Negative Ur Renal Epithelial Cell Not Reportable Urine Crystals Not Reportable Fluid Neutrophils % Fluid Comment Peritoneal Color Peritoneal Appearance 11/10/22 11/10/22 11/10/22 20:19 20:21 22:47 WBC RBC Hgb Hct MCV MCH MCHC RDW Std Deviation RDW Coeff of Ekaterina Plt Count MPV Sodium Potassium Chloride Carbon Dioxide Anion Gap BUN Creatinine Est Cr Clr Drug Dosing Est GFR ( Amer) Est GFR (Non-Af Amer) BUN/Creatinine Ratio Glucose POC Glucose 385 H* 376 H* 359 H* Estimat Average Glucose Hemoglobin A1c Calcium Phosphorus Iron TIBC Unsaturated IBC Transferrin % Sat Ferritin Albumin Urine WBC (Auto) Urine RBC (Auto) U Hyaline Cast (Auto) U Epithel Cells (Auto) Urine Bacteria (Auto) Ur Renal Epithelial Cell Urine Crystals Fluid Neutrophils % Fluid Comment Peritoneal Color Peritoneal Appearance 11/10/22 11/11/22 11/11/22 22:49 02:47 02:49 WBC RBC Hgb Hct MCV MCH MCHC RDW Std Deviation RDW Coeff of Ekaterina Plt Count MPV Sodium Potassium Chloride Carbon Dioxide Anion Gap BUN Creatinine Est Cr Clr Drug Dosing Est GFR ( Amer) Est GFR (Non-Af Amer) BUN/Creatinine Ratio Glucose POC Glucose 355 H* 310 H* 304 H* Estimat Average Glucose Hemoglobin A1c Calcium Phosphorus Iron TIBC Unsaturated IBC Transferrin % Sat Ferritin Albumin Urine WBC (Auto) Urine RBC (Auto) U Hyaline Cast (Auto) U Epithel Cells (Auto) Urine Bacteria (Auto) Ur Renal Epithelial Cell Urine Crystals Fluid Neutrophils % Fluid Comment Peritoneal Color Peritoneal Appearance 11/11/22 11/11/22 11/11/22 07:25 11:27 11:27 WBC 19.09 H RBC 3.17 L Hgb 9.7 L Hct 29.1 L MCV 91.8 MCH 30.6 MCHC 33.3 RDW Std Deviation 53.8 H RDW Coeff of Ekaterina 15.9 H Plt Count 294 MPV 11.7 Sodium 133 L Potassium 3.8 Chloride 90 L Carbon Dioxide 25 Anion Gap 18 H BUN 59 H Creatinine 8.00 H* D Est Cr Clr Drug Dosing 6.5 Est GFR ( Amer) 5.3 Est GFR (Non-Af Amer) 4.6 BUN/Creatinine Ratio 7.4 L Glucose 220 H POC Glucose 107 H Estimat Average Glucose Hemoglobin A1c Calcium 8.7 Phosphorus 8.1 H Iron 34 L TIBC 156 L Unsaturated IBC 122 L Transferrin % Sat 22 Ferritin Pending Albumin 2.7 L Urine WBC (Auto) Urine RBC (Auto) U Hyaline Cast (Auto) U Epithel Cells (Auto) Urine Bacteria (Auto) Ur Renal Epithelial Cell Urine Crystals Fluid Neutrophils % Fluid Comment Peritoneal Color Peritoneal Appearance 11/11/22 11/11/22 11:39 11:40 WBC RBC Hgb Hct MCV MCH MCHC RDW Std Deviation RDW Coeff of Ekaterina Plt Count MPV Sodium Potassium Chloride Carbon Dioxide Anion Gap BUN Creatinine Est Cr Clr Drug Dosing Est GFR ( Amer) Est GFR (Non-Af Amer) BUN/Creatinine Ratio Glucose POC Glucose 199 H Estimat Average Glucose Hemoglobin A1c Calcium Phosphorus Iron TIBC Unsaturated IBC Transferrin % Sat Ferritin Albumin Urine WBC (Auto) Urine RBC (Auto) U Hyaline Cast (Auto) U Epithel Cells (Auto) Urine Bacteria (Auto) Ur Renal Epithelial Cell Urine Crystals Fluid Neutrophils % Pending Fluid Comment Peritoneal Color Pending Peritoneal Appearance Pending PG Care Time/CCT Total # of Minutes Spent Total Time Spent with Patient: Total time spent is greater than 50% in coordination of care (as documented) at patient's floor/unit and/or counseling patient: Coding Level of Care Code 06703 SUB INP/OBS CARE 3/50MIN Diagnoses ESRD on peritoneal dialysis N18.6; Z99.2 Dyspnea R06.00 Hypertension I10 Hypertension type: essential hypertension Aortic stenosis I35.0 Atrial fibrillation I48.91 Right leg swelling M79.89 Weakness R53.1 Yeast infection of the vagina B37.31 Anemia D64.9 Positive blood culture R78.81 (1) Hypertension Hypertension type: essential hypertension Qualified Code(s): I10 - Essential (primary) hypertension
[2022-11-11 13:06] LABS: Appearance Peritoneal Fluid Hazy; Color Peritoneal Fluid Colorless; Eosinophils, Fluid 4 %; Lymphocytes, Fluid 19 %; Mono,Macrophage,Mesothelial 50 %; Neutrophils, Fluid 27 %; RBC Peritoneal Fluid Auto < 2000 /uL; WBC Peritoneal Fluid Auto 14 /ul (0-300)
[2022-11-11] MEDS: cefTRIAXone SODIUM 2,000 MG in DEXTROSE 5% 50 ML IV SCH (13:27)
--- NOTE | 2022-11-11 13:40 | Hospitalist Progress Note ---
Date of Service November 11, 2022 Assessment & Plan (1) Septicemia: Plan: 72yo female with a history of ESRD (on peritoneal dialysis), paroxysmal atrial fibrillation, HTN, HLD, CAD (s/p stent), T2DM, HFpEF, aortic stenosis, anemia of chronic disease, and gout presents with a few-day history of SOB and LE edema. On arrival she was found to have a significant leukocytosis. She had recently been treated for a UTI and was complaining of vaginal yeast infection symptoms. She denies abdominal pains. Blood cultures obtained after admission due to significant leukocytosis After admission, she then spiked a fever and was growing E. coli in the blood cultures. Now urine culture with gram-negative rods With tachycardia, leukocytosis, and bacteremia as a source, with UTI and less likely from peritonitis as she does not have clinical symptoms of peritonitis Peritoneal fluid culture collected on 11/11-we will follow Overall much improved on 11/11 with no further fever and leukocytosis downtrending -Discontinue Zosyn and convert to ceftriaxone given pansensitive E. coli and blood cultures -Repeat blood cultures until sterile-no growth to date on cultures from 11/10 -Tylenol as needed for fevers -Follow CBC, BMP in the morning (2) Breath shortness: Plan: Related to sepsis Chest x-ray without significant abnormalities Could also be some volume overload-managed by dialysis With some hypoxia while spiking fever 11/10-now resolved (3) Anemia due to chronic kidney disease: Plan: Hemoglobin low but stable at 9.0 iron studies here are adequate Likely anemia of chronic disease (4) Yeast infection of the vagina: Plan: Continue clotrimazole vaginal suppositories x7 days Received 1 dose of fluconazole 150 Mg p.o. x1 on 11/09 Symptoms are improving (5) Aortic stenosis: Plan: With murmur on exam, echocardiogram here with moderate to severe aortic stenosis Follow as an outpatient with cardiology (6) Atrial fibrillation: Plan: Paroxysmal Is in sinus rhythm here Continue Eliquis although I suspect dosing could be increased to 5 Mg p.o. twice daily-we will check with cardiology and/or nephrology Continue metoprolol 25 Mg p.o. twice daily and consider uptitrating dose if able to as per cardiology (7) CAD (coronary artery disease): Plan: With a history of RCA stent 09/2018, left circumflex stent 08/2010 Continue home apixaban, atorvastatin, Plavix, isosorbide, metoprolol With elevated troponin peaking at 663 shortly after admission, likely myocardial demand ischemia in the setting of sepsis Echocardiogram here without wall motion abnormalities, but with severe LVH, moderate-severe aortic stenosis (8) ESRD on peritoneal dialysis: Plan: Continue peritoneal dialysis with no daytime dwell as per nephrology due to patient preference Follow labs Continue Nephrocaps, calcitriol (9) Hyperlipidemia: Plan: Continue statin (10) Hypertension: Plan: Blood pressures controlled Continue metoprolol, isosorbide Holding home nifedipine (11) Type 2 diabetes mellitus: Plan: With significant hyperglycemia due to sepsis, now improved Continue insulin and adjust-tighten down goal range Restart home Lantus Hemoglobin A1c fairly well-controlled 7.6% Plan DVT prophylaxis Eliquis Disposition-continued stay on medical floor with telemetry, improving. Consult PT/OT-pending. Need to see if needs rehab Could discharge in the next 1 to 2 days if repeat blood cultures remain negative, peritoneal fluid cultures resulted, and volume overload improved Admission and Anticipated Discharge Date Admission Date: November 09, 2022 Subjective Pt reports feeling better. Wants to know if she can have a milkshake. No SOB. Is still on O2 at 2LNC but POx 99%-asked RN to remove. No abd pains. is eating. Tele with NSR, PACs, rates in 70s Review of Systems Review of Systems: All systems reviewed & are unremarkable except as noted in HPI & below Physical Exam Constitutional: WD/WN, vitals as above Eyes: + anicteric sclerae Neck: trachea midline, no thyromegaly Respiratory: normal respiratory effort, lungs clear to auscultation Cardiovascular: RRR, no murmur, no edema Rate/Rhythm: regular rate and regular rhythm Heart Sounds: + murmur (3/6 [place] at the RUSB) Extremities: + edema (trace pitting edema to the proximal tibia bilaterally,improved) Chest (Breasts): Chest: normal inspection of chest Gastrointestinal (Abdomen): Inspection/Auscultation: normal bowel sounds; + abdomen abnormal to inspection (Peritoneal dialysis catheter present in RLQ) Percussion/Palpation: abdomen nontender Musculoskeletal: Extremities: extremities normal to inspection; no cyanosis and no clubbing Skin: no rashes, warm and dry Neurologic: moves all extremities and awake; no focal motor deficits Psychiatric: A+Ox3, euthymic affect Results & Data Results & Data ([facility]) Vital Signs (Past 12 Hours) Vital Signs Temp Pulse Pulse Pulse Resp BP Pulse Ox 11/11/22 11:44 37.2 C 73 20 140/81 99 11/11/22 08:00 11/11/22 09:10 36.8 C 70 20 11/11/22 07:26 36.8 C 70 20 126/65 97 11/11/22 07:25 75 11/11/22 03:00 37 C 76 20 100/57 L 96 O2 Del Method O2 Flow Rate 11/11/22 11:44 Nasal Cannula 2 11/11/22 08:00 Room Air 11/11/22 09:10 11/11/22 07:26 Nasal Cannula 2 11/11/22 07:25 11/11/22 03:00 Room Air Laboratory Results 11/11/22 11/11/22 11/11/22 Range/Units 11:40 11:39 11:27 WBC (4.8-10.8) K/ul RBC (3.93-5.22) M/uL Hgb (12.0-16.0) g/dl Hct (34.1-44.9) % MCV (80.0-100.0) fL MCH (25.0-34.0) pg MCHC (32.0-36.0) g/dL RDW Std Deviation (36.4-46.3) fL RDW Coeff of Ekaterina (11.5-14.5) % Plt Count (130-400) K/uL MPV (9.4-12.3) fL Sodium 133 L (136-145) mmol/L Potassium 3.8 (3.5-5.1) mmol/L Chloride 90 L (98-107) mmol/L Carbon Dioxide 25 (21-32) mmol/L Anion Gap 18 H (3-11) BUN 59 H (6-23) mg/dl Creatinine 8.00 H* D (0.6-1.2) mg/dl Est Cr Clr Drug Dosing 6.5 ml/min Est GFR ( Amer) 5.3 ml/min Est GFR (Non-Af Amer) 4.6 ml/min BUN/Creatinine Ratio 7.4 L (10-20) Glucose 220 H (70-99(Fasting)) mg/dl POC Glucose 199 H (70-99) mg/dl Calcium 8.7 (8.5-10.1) mg/dl Phosphorus 8.1 H (2.5-4.9) mg/dl Iron 34 L (35-150) mcg/dl TIBC 156 L (250-450) mcg/dl Unsaturated IBC 122 L (155-355) mcg/dl Transferrin % Sat 22 (15-50) % Ferritin 1965.0 H (8-388) ng/ml Albumin 2.7 L (3.4-5.0) gm/dl Fluid Neutrophils % 27 % Fluid Lymphocytes % 19 % Fluid Eosinophils % 4 % Fluid Meso/Macro/Coffey % 50 % Fluid Comment Peritoneal Color Colorless Peritoneal Appearance Hazy Peritoneal WBC (Auto) 14 (0-300) /ul Peritoneal RBC (Auto) < 2000 /uL 11/11/22 11/11/22 11/11/22 Range/Units 11:27 07:25 02:49 WBC 19.09 H (4.8-10.8) K/ul RBC 3.17 L (3.93-5.22) M/uL Hgb 9.7 L (12.0-16.0) g/dl Hct 29.1 L (34.1-44.9) % MCV 91.8 (80.0-100.0) fL MCH 30.6 (25.0-34.0) pg MCHC 33.3 (32.0-36.0) g/dL RDW Std Deviation 53.8 H (36.4-46.3) fL RDW Coeff of Ekaterina 15.9 H (11.5-14.5) % Plt Count 294 (130-400) K/uL MPV 11.7 (9.4-12.3) fL Sodium (136-145) mmol/L Potassium (3.5-5.1) mmol/L Chloride (98-107) mmol/L Carbon Dioxide (21-32) mmol/L Anion Gap (3-11) BUN (6-23) mg/dl Creatinine (0.6-1.2) mg/dl Est Cr Clr Drug Dosing ml/min Est GFR ( Amer) ml/min Est GFR (Non-Af Amer) ml/min BUN/Creatinine Ratio (10-20) Glucose (70-99(Fasting)) mg/dl POC Glucose 107 H 304 H* (70-99) mg/dl Calcium (8.5-10.1) mg/dl Phosphorus (2.5-4.9) mg/dl Iron (35-150) mcg/dl TIBC (250-450) mcg/dl Unsaturated IBC (155-355) mcg/dl Transferrin % Sat (15-50) % Ferritin (8-388) ng/ml Albumin (3.4-5.0) gm/dl Fluid Neutrophils % % Fluid Lymphocytes % % Fluid Eosinophils % % Fluid Meso/Macro/Coffey % % Fluid Comment Peritoneal Color Peritoneal Appearance Peritoneal WBC (Auto) (0-300) /ul Peritoneal RBC (Auto) /uL 11/11/22 11/10/22 11/10/22 Range/Units 02:47 22:49 22:47 WBC (4.8-10.8) K/ul RBC (3.93-5.22) M/uL Hgb (12.0-16.0) g/dl Hct (34.1-44.9) % MCV (80.0-100.0) fL MCH (25.0-34.0) pg MCHC (32.0-36.0) g/dL RDW Std Deviation (36.4-46.3) fL RDW Coeff of Ekaterina (11.5-14.5) % Plt Count (130-400) K/uL MPV (9.4-12.3) fL Sodium (136-145) mmol/L Potassium (3.5-5.1) mmol/L Chloride (98-107) mmol/L Carbon Dioxide (21-32) mmol/L Anion Gap (3-11) BUN (6-23) mg/dl Creatinine (0.6-1.2) mg/dl Est Cr Clr Drug Dosing ml/min Est GFR ( Amer) ml/min Est GFR (Non-Af Amer) ml/min BUN/Creatinine Ratio (10-20) Glucose (70-99(Fasting)) mg/dl POC Glucose 310 H* 355 H* 359 H* (70-99) mg/dl Calcium (8.5-10.1) mg/dl Phosphorus (2.5-4.9) mg/dl Iron (35-150) mcg/dl TIBC (250-450) mcg/dl Unsaturated IBC (155-355) mcg/dl Transferrin % Sat (15-50) % Ferritin (8-388) ng/ml Albumin (3.4-5.0) gm/dl Fluid Neutrophils % % Fluid Lymphocytes % % Fluid Eosinophils % % Fluid Meso/Macro/Coffey % % Fluid Comment Peritoneal Color Peritoneal Appearance Peritoneal WBC (Auto) (0-300) /ul Peritoneal RBC (Auto) /uL 11/10/22 11/10/22 11/10/22 Range/Units 20:21 20:19 16:48 WBC (4.8-10.8) K/ul RBC (3.93-5.22) M/uL Hgb (12.0-16.0) g/dl Hct (34.1-44.9) % MCV (80.0-100.0) fL MCH (25.0-34.0) pg MCHC (32.0-36.0) g/dL RDW Std Deviation (36.4-46.3) fL RDW Coeff of Ekaterina (11.5-14.5) % Plt Count (130-400) K/uL MPV (9.4-12.3) fL Sodium (136-145) mmol/L Potassium (3.5-5.1) mmol/L Chloride (98-107) mmol/L Carbon Dioxide (21-32) mmol/L Anion Gap (3-11) BUN (6-23) mg/dl Creatinine (0.6-1.2) mg/dl Est Cr Clr Drug Dosing ml/min Est GFR ( Amer) ml/min Est GFR (Non-Af Amer) ml/min BUN/Creatinine Ratio (10-20) Glucose (70-99(Fasting)) mg/dl POC Glucose 376 H* 385 H* 128 H (70-99) mg/dl Calcium (8.5-10.1) mg/dl Phosphorus (2.5-4.9) mg/dl Iron (35-150) mcg/dl TIBC (250-450) mcg/dl Unsaturated IBC (155-355) mcg/dl Transferrin % Sat (15-50) % Ferritin (8-388) ng/ml Albumin (3.4-5.0) gm/dl Fluid Neutrophils % % Fluid Lymphocytes % % Fluid Eosinophils % % Fluid Meso/Macro/Coffey % % Fluid Comment Peritoneal Color Peritoneal Appearance Peritoneal WBC (Auto) (0-300) /ul Peritoneal RBC (Auto) /uL PG Care Time/CCT Total # of Minutes Spent Total Time Spent with Patient: Total time spent is greater than 50% in coordination of care (as documented) at patient's floor/unit and/or counseling patient: Coding Level of Care Code 03473 SUB INP/OBS CARE 2/35MIN Diagnoses Septicemia A41.9 Breath shortness R06.02 Anemia due to chronic kidney disease N18.9; D63.1 Yeast infection of the vagina B37.31 Aortic stenosis I35.0 Atrial fibrillation I48.91 CAD (coronary artery disease) I25.10 Associated angina: without angina Coronary Disease-Associated Artery/Lesion type: [place] artery [place] vs. transplanted heart: [place] heart ESRD on peritoneal dialysis N18.6; Z99.2 Hyperlipidemia E78.5 Hyperlipidemia type: unspecified Hypertension I10 Hypertension type: essential hypertension Type 2 diabetes mellitus E11.9 (1) CAD (coronary artery disease) Associated angina: without angina Coronary Disease-Associated Artery/Lesion type: [place] artery [place] vs. transplanted heart: [place] heart Qualified Code(s): I25.10 - Atherosclerotic heart disease of [place] coronary artery without angina pectoris (2) Hyperlipidemia Hyperlipidemia type: unspecified Qualified Code(s): E78.5 - Hyperlipidemia, unspecified (3) Hypertension Hypertension type: essential hypertension Qualified Code(s): I10 - Essential (primary) hypertension
[2022-11-11 19:52] LABS: HBSAG NON-REACTIVE (NON-REACTIVE); Hepatitis B Surface Ab, Quant 39 mIU/mL (> OR = 10)
[2022-11-12] MEDS: ACETAMINOPHEN 325 MG TAB PO PRN ×3 (02:48→20:29)
[2022-11-12] MEDS: INSULIN LISPRO 100 UNITS/ML PEN SC SCH ×6 (04:33→22:42)
[2022-11-12 07:39] LABS: Basophils # (auto) 0.08 K/uL (0-0.2); Basophils % (auto) 0.5 %; Eosinophils # (auto) 0.44 K/uL (0-0.50); Eosinophils % (auto) 2.6 %; Hematocrit (blood only) 25.1 % (34.1-44.9); Hemoglobin 8.4 g/dl (12.0-16.0); Immature Granulocytes # (auto) 0.19 K/uL (0.00-0.02); Immature Granulocytes % (auto) 1.1 %; Lymphocytes # (auto) 1.33 K/uL (1.2-3.4); Lymphocytes % (auto) 7.9 %; Mean Corpuscular Hemoglobin 30.5 pg (25.0-34.0); Mean Corpuscular Hgb Conc 33.5 g/dL (32.0-36.0); Mean Corpuscular Volume 91.3 fL (80.0-100.0); Mean Platelet Volume 11.7 fL (9.4-12.3); Monocytes % (auto) 10.1 %; Neutrophils # (auto) 13.03 K/uL (1.4-6.5); Neutrophils % (auto) 77.8 %; Platelet Count 315 K/uL (130-400); RDW Coefficient of Variation 15.8 % (11.5-14.5); RDW Standard Deviation 52.2 fL (36.4-46.3); Red Blood Count 2.75 M/uL (3.93-5.22); White Blood Count 16.77 K/ul (4.8-10.8)
[2022-11-12 07:59] LABS: Albumin Globulin Ratio 0.7 (0.9-2); Albumin Level 2.7 gm/dl (3.4-5.0); BUN Creatinine Ratio 7.6 (10-20); Bilirubin,Total 0.4 mg/dl (0.2-1.0); Calcium 8.4 mg/dl (8.5-10.1); Creatinine Clr Calc Pharmacy 6.8 ml/min; Est GFR (African American) 5.6 ml/min; Est GFR (Non-African American) 4.8 ml/min; Magnesium 1.9 mg/dl (1.7-2.4); Potassium 3.6 mmol/L (3.5-5.1); Total Protein 6.7 gm/dl (6.0-8.3)
[2022-11-12] MEDS: LANTUS PER UNIT CHARGE SQ SCH ×2 (08:48→20:28)
[2022-11-12] MEDS: APIXABAN 2.5 MG TAB PO SCH ×2 (08:52→20:30)
[2022-11-12] MEDS: METOPROLOL TARTRATE 25 MG TAB PO SCH ×2 (08:52→20:30)
[2022-11-12] MEDS: CALCITRIOL 0.25 MCG CAPSULE PO SCH (08:53)
[2022-11-12] MEDS: CLOPIDOGREL BISULFATE 75 MG TAB PO SCH (08:53)
[2022-11-12] MEDS: allopurinoL 100 MG TAB PO SCH (08:53)
[2022-11-12] MEDS: ATORVASTATIN 40 MG TAB PO SCH (08:53)
[2022-11-12] MEDS: ISOSORBIDE MONO EXTENDED REL 60 MG TABCR PO SCH (08:54)
[2022-11-12] MEDS: NEPHROCAPS PO SCH (08:54)
[2022-11-12] MEDS: CLOTRIMAZOLE VAGINAL CR 7 APPLN/45 GM TUBE PV SCH (08:54)
[2022-11-12] MEDS: cefTRIAXone SODIUM 2,000 MG in DEXTROSE 5% 50 ML IV SCH (12:14)
--- NOTE | 2022-11-12 16:51 | Nephrology Progress Note ---
Date of Service November 12, 2022 Assessment & Plan (1) ESRD on peritoneal dialysis: (2) Bacteremia: (3) Anemia: (4) Hypertension: Plan 72yof with ESRD (on peritoneal dialysis), paroxysmal atrial fibrillation, HTN, HLD, CAD (s/p stent), IDDM2, HFpEF, aortic stenosis, anemia admitted with presents with a few-day history of SOB and LE edema, associated with nausea and vomiting found to have bacteremia. PD has been uneventful, no sign of peritonitis. --continue current PD Rx with Delflex 2.5 alternate with 4.5, aim for >1 L UF --TRAE for Hb <10. --dose meds for eGFR <10 Will follow Admission and Anticipated Discharge Date Admission Date: November 09, 2022 Ivis Piña was seen and evaluated this morning. She has been otherwise feeling well, denies any shortness of breath or chest pain. PD was uneventful overnight, had around 1200 UF. Blood pressure well controlled. Review of Systems Review of Systems: Detail ROS was unremarkable. Physical Exam Constitutional: WD/WN, vitals as above no acute distress Eyes: + anicteric sclerae ENMT: Ears: no hearing impairment Neck: normal visual inspection Respiratory: normal respiratory effort; no respiratory distress Auscultation: lungs clear to auscultation bilaterally Cardiovascular: Rate/Rhythm: regular rate and regular rhythm Heart Sounds: normal S1 and normal S2 Extremities: no edema Skin: no rashes Neurologic: no focal motor deficits and not confused Psychiatric: Orientation: alert and oriented x 3 Results & Data ([facility]) Vital Signs (Past 12 Hours) Vital Signs Temp Pulse Pulse Pulse Resp BP Pulse Ox 11/12/22 15:15 37.1 C 70 18 122/62 92 11/12/22 11:28 36.8 C 78 18 110/64 94 11/12/22 10:46 11/12/22 07:53 37.8 C H 66 20 11/12/22 07:30 80 11/12/22 07:15 36.8 C 69 18 135/82 92 O2 Del Method 11/12/22 15:15 Room Air 11/12/22 11:28 Room Air 11/12/22 10:46 Room Air 11/12/22 07:53 11/12/22 07:30 11/12/22 07:15 Room Air PG Care Time/CCT Total # of Minutes Spent Total Time Spent with Patient: Total time spent is greater than 50% in coordination of care (as documented) at patient's floor/unit and/or counseling patient: Coding Level of Care Code 00395 SUB INP/OBS CARE 235MIN Diagnoses ESRD on peritoneal dialysis N18.6; Z99.2 Bacteremia R78.81 Anemia D64.9 Hypertension I10 Hypertension type: essential hypertension (1) Hypertension Hypertension type: essential hypertension Qualified Code(s): I10 - Essential (primary) hypertension
--- NOTE | 2022-11-12 18:57 | Hospitalist Progress Note ---
Date of Service November 12, 2022 Assessment & Plan (1) Septicemia: Plan: 72yo female with a history of ESRD (on peritoneal dialysis), paroxysmal atrial fibrillation, HTN, HLD, CAD (s/p stent), T2DM, HFpEF, aortic stenosis, anemia of chronic disease, and gout presents with a few-day history of SOB and LE edema. On arrival she was found to have a significant leukocytosis. She had recently been treated for a UTI and was complaining of vaginal yeast infection symptoms. She denies abdominal pains. Blood cultures obtained after admission due to significant leukocytosis After admission, she then spiked a fever and was growing E. coli in the blood cultures. Now urine culture with pansens E. coli Repeat BCx 11/10-now 10/29 sets with GNR as well. Of note, repeat blood cultures were drawn within 12 hours of starting antibiotics. With tachycardia, leukocytosis, and bacteremia as a source, with UTI and less likely from peritonitis as she does not have clinical symptoms of peritonitis Peritoneal fluid culture collected on 11/11-preliminarily negative Overall much improved on 11/11 with no further fever except low grade temps and leukocytosis continues to be downtrending -Discontinued Zosyn and converted to ceftriaxone on 11/11 given pansensitive E. coli and blood cultures -Repeat blood cultures until sterile-will repeat again on 11/12 -Tylenol as needed for fevers -Follow CBC, BMP in the morning -given persistently positive BCxs (although repeat BCxs drawn within 12 hours of first dose of antibiotic), RBCs on UA, some left sided crampy abd pain--> check CT abd/pel to assess for stone/pyelo-this cannot be performed until the morning as she is currently on peritoneal dialysis with dwell in place the evening when I saw her (2) Breath shortness: Plan: Related to sepsis-now resolved Chest x-ray without significant abnormalities Could also be some volume overload-managed by dialysis With some hypoxia while spiking fever 11/10-now resolved (3) Anemia due to chronic kidney disease: Plan: Hemoglobin low but stable at 8.4 iron studies here are adequate Likely anemia of chronic disease To be managed by nephrology Follow CBC (4) Yeast infection of the vagina: Plan: Continue clotrimazole vaginal suppositories x7 days Received 1 dose of fluconazole 150 Mg p.o. x1 on 1/13 Symptoms are improving (5) Aortic stenosis: Plan: With murmur on exam, echocardiogram here with moderate to severe aortic stenosis Follow as an outpatient with cardiology (6) Atrial fibrillation: Plan: Paroxysmal Is in sinus rhythm here with some bursts of Afib to the 130s off and on Continue Eliquis although I suspect dosing could be increased to 5 Mg p.o. twice daily-we will check with cardiology and/or nephrology Continue metoprolol 25 Mg p.o. twice daily and consider uptitrating dose if able to as per cardiology. BPs have been soft at times so not sure if will be able to increase dose (7) CAD (coronary artery disease): Plan: With a history of RCA stent 09/2018, left circumflex stent 08/2010 Continue home apixaban, atorvastatin, Plavix, isosorbide, metoprolol With elevated troponin peaking at 663 shortly after admission, likely myocardial demand ischemia in the setting of sepsis Echocardiogram here without wall motion abnormalities, but with severe LVH, moderate-severe aortic stenosis (8) ESRD on peritoneal dialysis: Plan: Continue peritoneal dialysis with no daytime dwell as per nephrology due to patient preference Follow labs Continue Nephrocaps, calcitriol (9) Hyperlipidemia: Plan: Continue statin (10) Hypertension: Plan: Blood pressures controlled Continue metoprolol, isosorbide Holding home nifedipine which can also worsen peripheral edema but also held for soft blood pressures (11) Type 2 diabetes mellitus: Plan: With significant hyperglycemia due to sepsis, now improved Continue insulin with Lantus and NovoLog Hemoglobin A1c fairly well-controlled 7.6% (12) Edema: Plan: Venous Doppler negative on admission Likely due to volume overload from end-stage renal disease-managed with dialysis Also on nifedipine which can cause peripheral edema-held for now On [employer]iqu[employer] Family strongly requesting to repeat a venous Doppler again prior to discharge just to be sure she doesn't have a DVT Plan DVT prophylaxis Eliquis Disposition-continued stay on medical floor with telemetry, improving. Consult PT/OT-needs rehab and patient is agreeable-they would like a referral [facility]-Case management consult/order placed for this Could discharge in 2-3 days if repeat blood cultures remain negative, peritoneal fluid cultures resulted, and volume overload improved discussed her care extensively at the bedside with her son and [id number] Admission and Anticipated Discharge Date Admission Date: November 09, 2022 Subjective Patient reports feeling very weak. Still some low-grade temps but overall improving. No further shortness of breath. Family is concerned about her peripheral edema and requesting a repeat venous Doppler prior to discharge despite the fact that she remains on Eliquis and already had a negative venous Doppler a few days ago. She does admit to some left-sided crampy abdominal pains. Telemetry with some paroxysmal runs of rapid A. fib to the 130s lasting only a couple minutes at a time. Otherwise normal sinus rhythm with rates in 70s to 80s She is tolerating peritoneal dialysis. She is now agreeable to rehab placement Review of Systems Review of Systems: All systems reviewed & are unremarkable except as noted in HPI & below Physical Exam Constitutional: WD/WN, vitals as above Eyes: + anicteric sclerae Neck: trachea midline, no thyromegaly Respiratory: normal respiratory effort, lungs clear to auscultation Cardiovascular: RRR, no murmur, no edema Rate/Rhythm: regular rate and regular rhythm Heart Sounds: + murmur (3/6 [place] at the RUSB) Extremities: + edema (1+ pitting edema to the proximal tibia bilaterally,improved) Chest (Breasts): Chest: normal inspection of chest Gastrointestinal (Abdomen): Inspection/Auscultation: normal bowel sounds; + abdomen abnormal to inspection (Peritoneal dialysis catheter present in RLQ) Percussion/Palpation: abdomen nontender Musculoskeletal: Extremities: extremities normal to inspection; no cyanosis and no clubbing Skin: no rashes, warm and dry Neurologic: moves all extremities and awake; no focal motor deficits Psychiatric: A+Ox3, euthymic affect Results & Data Results & Data ([facility]) Vital Signs (Past 12 Hours) Vital Signs Temp Pulse Pulse Pulse Resp BP Pulse Ox 11/12/22 18:44 37.4 C 70 20 123/76 11/12/22 16:56 71 11/12/22 15:15 37.1 C 70 18 122/62 92 11/12/22 11:28 36.8 C 78 18 110/64 94 11/12/22 10:46 11/12/22 07:53 37.8 C H 66 20 11/12/22 07:30 80 11/12/22 07:15 36.8 C 69 18 135/82 92 O2 Del Method 11/12/22 18:44 11/12/22 16:56 11/12/22 15:15 Room Air 11/12/22 11:28 Room Air 11/12/22 10:46 Room Air 11/12/22 07:53 11/12/22 07:30 11/12/22 07:15 Room Air Laboratory Results Labs reviewed PG Care Time/CCT Total # of Minutes Spent Total Time Spent with Patient: Total time spent is greater than 50% in coordination of care (as documented) at patient's floor/unit and/or counseling patient: Coding Level of Care Code 80594 SUB INP/OBS CARE 3/50MIN Diagnoses Septicemia A41.9 Breath shortness R06.02 Anemia due to chronic kidney disease N18.9; D63.1 Yeast infection of the vagina B37.31 Aortic stenosis I35.0 Atrial fibrillation I48.91 CAD (coronary artery disease) I25.10 Associated angina: without angina Coronary Disease-Associated Artery/Lesion type: [place] artery [place] vs. transplanted heart: [place] heart ESRD on peritoneal dialysis N18.6; Z99.2 Hyperlipidemia E78.5 Hyperlipidemia type: unspecified Hypertension I10 Hypertension type: essential hypertension Type 2 diabetes mellitus E11.9 Edema R60.9 (1) CAD (coronary artery disease) Associated angina: without angina Coronary Disease-Associated Artery/Lesion type: [place] artery [place] vs. transplanted heart: [place] heart Qualified Code(s): I25.10 - Atherosclerotic heart disease of [place] coronary artery without angina pectoris (2) Hyperlipidemia Hyperlipidemia type: unspecified Qualified Code(s): E78.5 - Hyperlipidemia, unspecified (3) Hypertension Hypertension type: essential hypertension Qualified Code(s): I10 - Essential (primary) hypertension
[2022-11-13] MEDS: ACETAMINOPHEN 325 MG TAB PO PRN ×2 (05:33→19:18)
[2022-11-13 07:23] LABS: Basophils # (auto) 0.11 K/uL (0-0.2); Basophils % (auto) 0.7 %; Eosinophils # (auto) 0.56 K/uL (0-0.50); Eosinophils % (auto) 3.4 %; Hematocrit (blood only) 24.9 % (34.1-44.9); Hemoglobin 8.3 g/dl (12.0-16.0); Immature Granulocytes # (auto) 0.25 K/uL (0.00-0.02); Immature Granulocytes % (auto) 1.5 %; Lymphocytes # (auto) 1.31 K/uL (1.2-3.4); Mean Corpuscular Hemoglobin 30.5 pg (25.0-34.0); Mean Corpuscular Hgb Conc 33.3 g/dL (32.0-36.0); Mean Corpuscular Volume 91.5 fL (80.0-100.0); Mean Platelet Volume 11.5 fL (9.4-12.3); Monocytes # (auto) 1.82 K/uL (0.24-0.82); Monocytes % (auto) 11.2 %; Neutrophils # (auto) 12.23 K/uL (1.4-6.5); Neutrophils % (auto) 75.2 %; Nucleated RBC # (auto) 0.04 K/uL (0-0); Nucleated RBC % (auto) 0.2 %; Platelet Count 288 K/uL (130-400); RDW Coefficient of Variation 15.2 % (11.5-14.5); RDW Standard Deviation 50.9 fL (36.4-46.3); Red Blood Count 2.72 M/uL (3.93-5.22); White Blood Count 16.28 K/ul (4.8-10.8)
[2022-11-13 08:09] LABS: Albumin Globulin Ratio 0.7 (0.9-2); Albumin Level 2.6 gm/dl (3.4-5.0); BUN Creatinine Ratio 7.1 (10-20); Bilirubin,Total 0.3 mg/dl (0.2-1.0); Calcium 8.1 mg/dl (8.5-10.1); Creatinine Clr Calc Pharmacy 6.2 ml/min; Est GFR (African American) 5.1 ml/min; Est GFR (Non-African American) 4.4 ml/min; Globulin 3.8 gm/dl (2.5-4.0); Magnesium 1.9 mg/dl (1.7-2.4); Potassium 3.3 mmol/L (3.5-5.1); Total Protein 6.4 gm/dl (6.0-8.3)
[2022-11-13] MEDS: INSULIN LISPRO 100 UNITS/ML PEN SC SCH ×4 (09:31→21:02)
[2022-11-13] MEDS: CLOTRIMAZOLE VAGINAL CR 7 APPLN/45 GM TUBE PV SCH (09:35)
[2022-11-13] MEDS: LANTUS PER UNIT CHARGE SQ SCH ×2 (09:35→21:02)
[2022-11-13] MEDS: APIXABAN 2.5 MG TAB PO SCH ×2 (09:36→21:02)
[2022-11-13] MEDS: ATORVASTATIN 40 MG TAB PO SCH (09:36)
[2022-11-13] MEDS: ISOSORBIDE MONO EXTENDED REL 60 MG TABCR PO SCH (09:36)
[2022-11-13] MEDS: allopurinoL 100 MG TAB PO SCH (09:36)
[2022-11-13] MEDS: NEPHROCAPS PO SCH (09:36)
[2022-11-13] MEDS: METOPROLOL TARTRATE 25 MG TAB PO SCH (09:36)
[2022-11-13] MEDS: CLOPIDOGREL BISULFATE 75 MG TAB PO SCH (09:36)
[2022-11-13] MEDS: CALCITRIOL 0.25 MCG CAPSULE PO SCH (09:36)
[2022-11-13] MEDS: cefTRIAXone SODIUM 2,000 MG in DEXTROSE 5% 50 ML IV SCH (12:19)
--- NOTE | 2022-11-13 12:48 | Nephrology Progress Note ---
Date of Service November 13, 2022 Assessment & Plan (1) ESRD on peritoneal dialysis: (2) Bacteremia: (3) Anemia: (4) Hypertension: Plan 72yof with ESRD (on peritoneal dialysis), paroxysmal atrial fibrillation, HTN, HLD, CAD (s/p stent), IDDM2, HFpEF, aortic stenosis, anemia admitted with presents with a few-day history of SOB and LE edema, associated with nausea and vomiting found to have bacteremia. PD has been uneventful, no sign of peritonitis. --continue current PD Rx with Delflex 2.5 alternate with 4.5, she has been having decent UF with the current prescription. --TRAE for Hb <10. --dose meds for eGFR <10 --waiting on Rehab DC. Will follow Admission and Anticipated Discharge Date Admission Date: November 09, 2022 Ivis Piña was seen and evaluated this morning. She denies any shortness of breath or chest pain but main concern is profound weakness specially in bilateral lower extremity and frustrated with inability to stand or walk for long time which has been slowly worsening over last 6-9 months. She is due for MRI of her lower back next month. PD was uneventful overnight, continues to have decent UF with current PD Rx. Blood pressure well controlled. Review of Systems Review of Systems: Detail ROS was unremarkable. Physical Exam Constitutional: WD/WN, vitals as above no acute distress Respiratory: normal respiratory effort; no respiratory distress Auscultation: lungs clear to auscultation bilaterally Cardiovascular: Rate/Rhythm: regular rate and regular rhythm Heart Sounds: normal S1 and normal S2 Extremities: + edema (slight rt LE edema) Skin: no rashes Neurologic: no focal motor deficits and not confused Psychiatric: Orientation: alert and oriented x 3 Results & Data ([facility]) Vital Signs (Past 12 Hours) Vital Signs Temp Pulse Pulse Pulse Resp BP Pulse Ox 11/13/22 11:16 36.4 C L 70 18 151/74 H 99 11/13/22 09:00 37.0 C 66 18 11/13/22 09:42 11/13/22 07:17 37.0 C 67 18 120/71 90 11/13/22 07:04 72 11/13/22 04:00 36.6 C 69 18 154/82 H 92 O2 Del Method 11/13/22 11:16 Room Air 11/13/22 09:00 11/13/22 09:42 Room Air 11/13/22 07:17 Room Air 11/13/22 07:04 11/13/22 04:00 Room Air PG Care Time/CCT Total # of Minutes Spent Total Time Spent with Patient: Total time spent is greater than 50% in coordination of care (as documented) at patient's floor/unit and/or counseling patient: Coding Level of Care Code 70119 SUB INP/OBS CARE 3/50MIN Diagnoses ESRD on peritoneal dialysis N18.6; Z99.2 Bacteremia R78.81 Anemia D64.9 Hypertension I10 Hypertension type: essential hypertension (1) Hypertension Hypertension type: essential hypertension Qualified Code(s): I10 - Essential (primary) hypertension
[2022-11-13] MEDS ORDERED: POTASSIUM CHLORIDE 10 MEQ TABCR PO STA (13:01)
--- NOTE | 2022-11-13 13:32 | Cardiology Progress Note ---
Date of Service November 13, 2022 Assessment & Plan (1) Dyspnea: (2) Acute on chronic diastolic (congestive) heart failure: (3) CAD (coronary artery disease): (4) Elevated troponin: (5) Atrial fibrillation: (6) Anticoagulant long-term use: (7) Hypertension: Plan 1. Shortness of breath: She appears to have had significant fluid retention, that has improved considerably with dialysis. 2. Congestive heart failure: She does not appear to have an acute myocardial infarction to suggest a cause for CHF. I believe it is fluid overload although her weight has not increased substantially, however her recorded weights are too variable to help assess her fluid status. Her left ventricular function remains normal and her wall motion is normal. She does have LVH and diastolic dysfunction. She will probably need to establish a new dry weight. 3. Coronary disease: She has known coronary artery disease, although there could be progression I do not think it is the primary cause of her presentation and do not think we should evaluate it at this time. 4. Elevated troponin: Her troponin was elevated but it peaked at a little over 600 and then trended down on her subsequent measurement. I suspect it is on the basis of congestive heart failure and demand ischemia and I do not think invasive evaluation is indicated at this time. 5. Atrial fibrillation: She has a history of paroxysmal atrial fibrillation but we have not identified significant atrial fibrillation on this admission. She has very brief episodes of what appeared to be PAT, likely this is a cause of her atrial fibrillation in the past and normally we cannot specifically treat this. None of these episodes are prolonged enough that I would classify them as atrial fibrillation, they were only a few seconds. I would just continue observation but increasing the beta-fartun may help. 6. Anticoagulation: She is on Eliquis, she should remain on an anticoagulant. I would defer the dose to nephrology. 7. Hypertension: For the most part she is hypertensive and she does have significant left ventricular hypertrophy. Better control of her blood pressure would probably be indicated over the long run. She is on relatively low-dose metoprolol and I will increase this. This might also help with rate control during atrial fibrillation. 8. Aortic stenosis: She does have significant and possibly progressive aortic stenosis, but still there is no indication for intervention at this time. Admission and Anticipated Discharge Date Admission Date: November 09, 2022 Subjective She is complaining of weakness, but no cardiovascular symptoms. No palpitations. Physical Exam Physical Exam: Constitutional: Al ert, cooperative a nd in no distress. HEENT: Unremarkab le Neck: No jugula r venous distentio n, carotid pulses are normal and equ al bilaterally wit hout bruits. Pulmo nary: Decreased br eath sounds but no rales on ausculta tion bilaterally. Cardiac: Regular r hythm with a grade 2/6 crescendo dec rescendo murmur at the base, no gall op or rub. Abdomen : Soft, nontender with normal bowel sounds. Extremitie s: +1 right and +1 left pretibial ed jazmín. Neurologic: N o focal findings. Gait was not teste d. Skin: No rash, ecchymoses or jagdish chiae. Results & Data ([facility]) Vital Signs (Past 12 Hours) Vital Signs Temp Pulse Pulse Pulse Resp BP Pulse Ox 11/13/22 11:16 36.4 C L 70 18 151/74 H 99 11/13/22 09:00 37.0 C 66 18 11/13/22 09:42 11/13/22 07:17 37.0 C 67 18 120/71 90 11/13/22 07:04 72 11/13/22 04:00 36.6 C 69 18 154/82 H 92 O2 Del Method 11/13/22 11:16 Room Air 11/13/22 09:00 11/13/22 09:42 Room Air 11/13/22 07:17 Room Air 11/13/22 07:04 11/13/22 04:00 Room Air Laboratory Results Cardiac Enzymes 11/13/22 Range/Units 06:45 AST 57 H (13-39) U/L CBC 11/13/22 Range/Units 06:45 WBC 16.28 H (4.8-10.8) K/ul RBC 2.72 L (3.93-5.22) M/uL Hgb 8.3 L (12.0-16.0) g/dl Hct 24.9 L (34.1-44.9) % Plt Count 288 (130-400) K/uL Neut # (Auto) 12.23 H (1.4-6.5) K/uL Lymph # (Auto) 1.31 (1.2-3.4) K/uL [place] # (Auto) 1.82 H (0.24-0.82) K/uL Eos # (Auto) 0.56 H (0-0.50) K/uL Baso # (Auto) 0.11 (0-0.2) K/uL Comprehensive Metabolic Panel 11/13/22 Range/Units 06:45 Sodium 135 L (136-145) mmol/L Potassium 3.3 L (3.5-5.1) mmol/L Chloride 93 L (98-107) mmol/L Carbon Dioxide 25 (21-32) mmol/L BUN 59 H (6-23) mg/dl Creatinine 8.28 H* D (0.6-1.2) mg/dl Glucose 138 H (70-99(Fasting)) mg/dl Calcium 8.1 L (8.5-10.1) mg/dl AST 57 H (13-39) U/L ALT 63 H (7-52) U/L Alkaline Phosphatase 137 H (34-104) U/L Total Protein 6.4 (6.0-8.3) gm/dl Albumin 2.6 L (3.4-5.0) gm/dl Intake and Output 11/12/22 11/13/22 11/13/22 22:59 06:59 14:59 Intake Total 250 / 320 190 / 190 Output Total 1809 / 1809 Balance 250 / -1359 -1619 / -1619 Intake: IV 70 / 70 cefTRIAXone SODIUM 2,000 mg In 70 / 70 Dextrose 5% 50 ml @ 100 mls/hr IV Q24H [facility] Rx#:[id number] Oral 250 / 250 120 / 120 Output: Peritoneal Dialysis 1808 / 1808 Ultrafiltration Amount # Bowel Movements Other: Other Intake Source BITES and SIPS Weight 82.2 kg 81.7 kg 81.7 kg Weight Measurement Method Standing Scale Standing Scale Patient Weight 11/14/22 06:59 Weight 81.7 kg Diagnostic Findings Telemetry: Sinus rhythm, occasional very brief episodes of PAT, several seconds in duration. PG Care Time/CCT Total # of Minutes Spent Total Time Spent with Patient: Total time spent is greater than 50% in coordination of care (as documented) at patient's floor/unit and/or counseling patient: Coding Level of Care Code 92586 SUB INP/OBS CARE 2/35MIN Diagnoses Dyspnea R06.00 Acute on chronic diastolic (congestive) heart failure I50.33 CAD (coronary artery disease) I25.10 Associated angina: without angina Coronary Disease-Associated Artery/Lesion type: [place] vs. transplanted heart: [place] heart Elevated troponin R77.8 Atrial fibrillation I48.91 Anticoagulant long-term use Z79.01 Hypertension I10 Hypertension type: essential hypertension (1) CAD (coronary artery disease) Associated angina: without angina Coronary Disease-Associated Artery/Lesion type: [place] vs. transplanted heart: [place] heart Qualified Co de(s): I25.10 - Atherosclerotic heart disease of [place] coronary artery without angina pectoris (2) Hypertension Hypertension type: essential hypertension Qualified Code(s): I10 - Essential (primary) hypertension
--- NOTE | 2022-11-13 13:41 | CT Scan Report ---
ABDOMEN AND PELVIS CT WITHOUT CONTRAST CT DOSE: 872.81 mGycm HISTORY: Acute urinary tract infection with bacteremia E. coli UTI/bacteremia,assess for stone TECHNIQUE: Multiaxial CT images of the abdomen and pelvis were performed without contrast. A dose lo wering technique was utilized adhering to the principles of ALARA. COMPARISON STUDY: CT abdomen pelvis 12/25/2021 FINDINGS: Cardiomegaly. Extensive coronary artery and aortic calcifications. Mild intralobular and br onchial wall thickening. Moderate amount of pneumoperitoneum. Unremarkable unenhanced spleen. Mildly atrophic pancreas. Adrenal gland thickening suggestive of hyperplasia. Unremarkable gallbladder. 6 cm hypodense focus of the right hepatic lobe on image 18 series 2 is too small to characterize, likely a cyst. There is at least mild atrophy of the kidneys with bilateral renal vascular calcifications. 4.[address] of the inferior pole right kidney. 1.9 cm cyst of the superior pole left kidney. Mild to moderate left-sided hydroureteronephrosis with perinephric and periureteral stranding. Mild urothelial thicken ing of the left renal pelvis and collecting system. Possible punctate left renal calculi. No obstruct ing stone or lesion identified. Decompressed or bladder with air in the bladder lumen. Unremarkable u terus and adnexa. No bowel obstruction. Moderate colonic diverticulosis. Scattered large and small bowel air-fluid leve ls. The appendix appears noninflamed. Trace pelvic ascites. A peritoneal dialysis catheter is coiled within the mid pelvis. Small fat filled umbilical hernia. Degenerative changes of the spine, pelvis a nd hips. IMPRESSION: 1. No bowel obstruction or bowel wall thickening. Normal appendix. 2. Moderate amount of pneumoperitoneum within the abdomen and pelvis. This finding may be secondary t o the patient's indwelling peritoneal dialysis catheter. A perforated viscus may also be considered. Correlate with interventional/operative history. 3. Colonic diverticulosis without acute diverticulitis. 4. Mild left-sided hydroureteronephrosis without obstructing stone or lesion identified. Additionally , there is perinephric and perirenal stranding with urothelial thickening. Correlate with urinalysis to exclude recently passed calculus versus ascending infection. 5. Trace pelvic ascites. 6. Cardiomegaly with questioned mild pulmonary edema. 7. Additional findings as above. ACT 112: Negative or not required by law. The above report was generated using voice recognition software. It may contain grammatical, syntax o r spelling errors. Electronically signed by: Isac Fernandez M.D. 11/13/2022 1:40 PM
--- NOTE | 2022-11-13 19:27 | Hospitalist Progress Note ---
Date of Service November 13, 2022 Assessment & Plan (1) Septicemia: Plan: 2nd to e.coli. source - urine, as urine cx with e.coli as well. CT a/p today with left-sided kidney findings likely due to pyelonephritis; can't rule out a recently passed stone based on CT findings as well. Fortunately no obstructing kidney stone seen. Repeat blood cultures 11/12/22 negative to date. Initially on IV Zosyn --> ceftriaxone on 11/11/22. Will need total of 14 days of Rx from date of negative cultures. (2) Breath shortness: Plan: 2nd to #1 2nd to volume overload/pulmonary edema improving (3) Anemia due to chronic kidney disease: Plan: H/h low but stable cont to trend (4) Yeast infection of the vagina: Plan: Continue clotrimazole vaginal suppositories x 7 days Received 1 dose of fluconazole 150 Mg p.o. x 1 on 11/09 improved (5) Aortic stenosis: Plan: moderate to severe aortic stenosis on echo Follow as an outpatient with cardiology (6) Atrial fibrillation: Plan: Paroxysmal No runs overnight Continue Eliquis BID Continue metoprolol - dose increased to 50mg BID today by cardiology (7) CAD (coronary artery disease): Plan: With a history of RCA stent 09/2018, left circumflex stent 08/2010 Continue home apixaban, atorvastatin, Plavix, isosorbide, metoprolol Echocardiogram here without wall motion abnormalities, but with severe LVH, moderate-severe aortic stenosis Mildly elevated troponin likely due to myocardial demand ischemia rather than ACS (8) ESRD on peritoneal dialysis: Plan: Continue peritoneal dialysis with no daytime dwell as per nephrology due to patient preference Follow labs Continue Nephrocaps, calcitriol Appreciate nephrology assistance (9) Hyperlipidemia: Plan: Continue statin (10) Hypertension: Plan: Continue metoprolol, isosorbide Holding home nifedipine (11) Type 2 diabetes mellitus: Plan: Cont Lantus and NovoLog - adjust latter due to pre-prandial hyperglycemia Hemoglobin A1c 7.6% (12) Edema: Plan: Venous Dopplers negative on admission Likely due to volume overload from end-stage renal disease - continue PD Also on nifedipine which can cause peripheral edema - now on hold (13) Lower extremity weakness: Plan: present for 9 months per her recollection b/l legs spinal stenosis? deconditioning? other? check MRI lumbar spine - r/o spinal stenosis, etc check vitamin B12 level PT, OT to rehab post-discharge Plan DVT prophylaxis - Cora chavezo - [facility] at d/c ? Admission and Anticipated Discharge Date Admission Date: November 09, 2022 Subjective tele stable overnight; NSR patient reports her breathing is better in comparison to admission she has had intermittent discomfort over her left flank for some period of time - she can't pinpoint how long does have chronic low back pain - previously seen by Dr Pena from pain management was to have an MRI of her lumbar spine in November? 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 Review of Systems Review of Systems: gen - no fevers; appetite fair cv - no chest pain; mild orthopnea present pulm - dyspnea improved GI - no vomiting Physical Exam Physical Exam: gen - NAD, awake, alert neck - no JVD heart - RRR, s1 s2, 2/6 systolic murmur RUSB lungs - minimal rales bases abd - soft NT ND BS+; PD catheter clean ext - 2-3+ edema right leg, trace on left, pulses 2+ b/l neuro - DTRs 1+ b/l patellar and achilles reflexes; distal strength - dorsiflexion/plantarflexion 5/5; hip flexion b/l about 4/5 strength; no proximal muscle weakness of arms Results & Data Results & Data ([facility]) Vital Signs (Past 12 Hours) Vital Signs Temp Pulse Pulse Pulse Resp BP Pulse Ox 11/13/22 18:05 36.9 C 84 18 148/69 H 11/13/22 15:48 36.6 C 64 18 145/77 H 93 11/13/22 15:19 69 11/13/22 11:16 36.4 C L 70 18 151/74 H 99 11/13/22 09:00 37.0 C 66 18 11/13/22 09:42 O2 Del Method 11/13/22 18:05 11/13/22 15:48 Room Air 11/13/22 15:19 11/13/22 11:16 Room Air 11/13/22 09:00 11/13/22 09:42 Room Air Laboratory Results Laboratory Results - last 24 hr 11/12/22 11/13/22 11/13/22 20:21 06:45 06:45 WBC 16.28 H RBC 2.72 L Hgb 8.3 L Hct 24.9 L MCV 91.5 MCH 30.5 MCHC 33.3 RDW Std Deviation 50.9 H RDW Coeff of Ekaterina 15.2 H Plt Count 288 MPV 11.5 Immature Gran % (Auto) 1.5 Neut % (Auto) 75.2 Lymph % (Auto) 8.0 Dundy % (Auto) 11.2 Eos % (Auto) 3.4 Baso % (Auto) 0.7 Neut # (Auto) 12.23 H Lymph # (Auto) 1.31 Dundy # (Auto) 1.82 H Eos # (Auto) 0.56 H Baso # (Auto) 0.11 Immature Gran # (Auto) 0.25 H Absolute Nucleated RBC 0.04 H Nucleated RBC % (auto) 0.2 Sodium 135 L Potassium 3.3 L Chloride 93 L Carbon Dioxide 25 Anion Gap 17 H BUN 59 H Creatinine 8.28 H* D Est Cr Clr Drug Dosing 6.2 Est GFR ( Amer) 5.1 Est GFR (Non-Af Amer) 4.4 BUN/Creatinine Ratio 7.1 L Glucose 138 H POC Glucose 342 H* Calcium 8.1 L Magnesium 1.9 Total Bilirubin 0.3 AST 57 H ALT 63 H Alkaline Phosphatase 137 H Total Protein 6.4 Albumin 2.6 L Globulin 3.8 Albumin/Globulin Ratio 0.7 L 11/13/22 11/13/22 11/13/22 07:33 11:21 16:33 WBC RBC Hgb Hct MCV MCH MCHC RDW Std Deviation RDW Coeff of Ekaterina Plt Count MPV Immature Gran % (Auto) Neut % (Auto) Lymph % (Auto) Dundy % (Auto) Eos % (Auto) Baso % (Auto) Neut # (Auto) Lymph # (Auto) Dundy # (Auto) Eos # (Auto) Baso # (Auto) Immature Gran # (Auto) Absolute Nucleated RBC Nucleated RBC % (auto) Sodium Potassium Chloride Carbon Dioxide Anion Gap BUN Creatinine Est Cr Clr Drug Dosing Est GFR ( Amer) Est GFR (Non-Af Amer) BUN/Creatinine Ratio Glucose POC Glucose 134 H 214 H 85 Calcium Magnesium Total Bilirubin AST ALT Alkaline Phosphatase Total Protein Albumin Globulin Albumin/Globulin Ratio PG Care Time/CCT Total # of Minutes Spent Total Time Spent with Patient: Total time spent is greater than 50% in coordination of care (as documented) at patient's floor/unit and/or counseling patient: Coding Level of Care Code 56600 SUB INP/OBS CARE 3/50MIN Diagnoses Septicemia A41.9 Breath shortness R06.02 Anemia due to chronic kidney disease N18.9; D63.1 Yeast infection of the vagina B37.31 Aortic stenosis I35.0 Atrial fibrillation I48.91 CAD (coronary artery disease) I25.10 Associated angina: without angina Coronary Disease-Associated Artery/Lesion type: [place] artery [place] vs. transplanted heart: [place] heart ESRD on peritoneal dialysis N18.6; Z99.2 Hyperlipidemia E78.5 Hyperlipidemia type: unspecified Hypertension I10 Hypertension type: essential hypertension Type 2 diabetes mellitus E11.9 Edema R60.9 Lower extremity weakness R29.898 (1) CAD (coronary artery disease) Associated angina: without angina Coronary Disease-Associated Artery/Lesion type: [place] artery [place] vs. transplanted heart: [place] heart Qualified Code(s): I25.10 - Atherosclerotic heart disease of [place] coronary artery without angina pectoris (2) Hyperlipidemia Hyperlipidemia type: unspecified Qualified Code(s): E78.5 - Hyperlipidemia, unspecified (3) Hypertension Hypertension type: essential hypertension Qualified Code(s): I10 - Essential (primary) hypertension
[2022-11-13] MEDS: METOPROLOL TARTRATE 50 MG TAB PO SCH (21:02)
[2022-11-14 08:24] LABS: Basophils # (auto) 0.15 K/uL (0-0.2); Basophils % (auto) 0.8 %; Eosinophils % (auto) 3.2 %; Hematocrit (blood only) 26.5 % (34.1-44.9); Hemoglobin 8.9 g/dl (12.0-16.0); Immature Granulocytes # (auto) 0.46 K/uL (0.00-0.02); Immature Granulocytes % (auto) 2.5 %; Lymphocytes # (auto) 1.58 K/uL (1.2-3.4); Lymphocytes % (auto) 8.5 %; Mean Corpuscular Hemoglobin 30.5 pg (25.0-34.0); Mean Corpuscular Hgb Conc 33.6 g/dL (32.0-36.0); Mean Corpuscular Volume 90.8 fL (80.0-100.0); Monocytes # (auto) 1.71 K/uL (0.24-0.82); Monocytes % (auto) 9.2 %; Neutrophils # (auto) 14.18 K/uL (1.4-6.5); Neutrophils % (auto) 75.8 %; Nucleated RBC # (auto) 0.07 K/uL (0-0); Nucleated RBC % (auto) 0.4 %; Platelet Count 333 K/uL (130-400); RDW Coefficient of Variation 15.5 % (11.5-14.5); RDW Standard Deviation 51.4 fL (36.4-46.3); Red Blood Count 2.92 M/uL (3.93-5.22); White Blood Count 18.68 K/ul (4.8-10.8)
[2022-11-14] MEDS ORDERED: LORazepam 2 MG/1 ML VIAL IV STA (08:36)
[2022-11-14] MEDS: ATORVASTATIN 40 MG TAB PO SCH (08:38)
[2022-11-14] MEDS: allopurinoL 100 MG TAB PO SCH (08:38)
[2022-11-14] MEDS: METOPROLOL TARTRATE 50 MG TAB PO SCH ×2 (08:38→22:27)
[2022-11-14] MEDS: APIXABAN 2.5 MG TAB PO SCH ×2 (08:38→22:28)
[2022-11-14] MEDS: ISOSORBIDE MONO EXTENDED REL 60 MG TABCR PO SCH (08:38)
[2022-11-14] MEDS: NEPHROCAPS PO SCH (08:39)
[2022-11-14] MEDS: CALCITRIOL 0.25 MCG CAPSULE PO SCH (08:39)
[2022-11-14] MEDS: CLOPIDOGREL BISULFATE 75 MG TAB PO SCH (08:39)
[2022-11-14] MEDS: CLOTRIMAZOLE VAGINAL CR 7 APPLN/45 GM TUBE PV SCH (08:39)
[2022-11-14] MEDS: INSULIN LISPRO 100 UNITS/ML PEN SC SCH ×4 (08:46→22:31)
[2022-11-14] MEDS: LANTUS PER UNIT CHARGE SQ SCH ×2 (08:46→22:32)
[2022-11-14 11:09] LABS: Albumin Globulin Ratio 0.6 (0.9-2); Albumin Level 2.6 gm/dl (3.4-5.0); BUN Creatinine Ratio 6.7 (10-20); Bilirubin,Total 0.3 mg/dl (0.2-1.0); Calcium 8.7 mg/dl (8.5-10.1); Creatinine Clr Calc Pharmacy 5.8 ml/min; Est GFR (African American) 4.7 ml/min; Globulin 4.5 gm/dl (2.5-4.0); Potassium 3.6 mmol/L (3.5-5.1); Total Protein 7.1 gm/dl (6.0-8.3)
[2022-11-14] MEDS: cefTRIAXone SODIUM 2,000 MG in DEXTROSE 5% 50 ML IV SCH (12:35)
--- NOTE | 2022-11-14 13:51 | Magnetic Resonance Report ---
MR lumbar spine wo con CLINICAL HISTORY: 72 years-old Female with b/l leg weakness. Chronic low back pain with lower extrem ity weakness. COMPARISON: CT abdomen and pelvis 11/13/2022 TECHNIQUE: Multiplanar, multi sequence MRI of the lumbar spine was performed without intravenous cont rast. FINDINGS: Motion degraded exam. Conus medullaris terminates at the L1 level. No acute fracture, subluxation, si gnificant marrow edema or marrow replacing process. Bilateral renal cysts are redemonstrated. Left-si ded hydroureteronephrosis is again noted. No paravertebral edema. Mild to moderate intervertebral dis c space narrowing with mild spondylitic spurring and moderate to severe facet arthrosis. Mild Modic t ype I and II endplate degeneration at the L2-L3 level. T12-L1: Mild spondylitic spurring with moderate facet arthrosis. No central canal or neural foramina l narrowing. L1-L2: Mild to moderate intervertebral disc space narrowing and spondylitic spurring with small circ umferential annular disc bulge. Ligamentum flavum thickening with moderate facet arthrosis. No centra l canal or neural foraminal narrowing. L2-L3: Moderate to severe intervertebral disc space narrowing with spondylitic spurring and small ci rcumferential annular disc bulge. Ligamentum flavum thickening with moderate facet arthrosis. Mild ce ntral canal stenosis, AP dimension of the thecal sac measuring approximately 9.5 mm. Mild narrowing o f the lateral recesses. Mild to moderate right with mild left neural foraminal narrowing. L3-L4: Mild spondylitic spurring. Ligamentum flavum thickening with moderate facet arthrosis. The ce ntral canal is patent. Mild right with [id number] left neural foraminal narrowing. L4-L5: Mild spondylitic spurring. Ligamentum flavum thickening with severe facet arthrosis. Mild linda tral canal stenosis, AP dimension of the thecal sac measuring 9 mm. Moderate left with mild to modera te right neural foraminal narrowing. L5-S1: Mild to moderate intervertebral disc space narrowing with spondylitic spurring, small posteri or annular disc bulge with central disc protrusion. Ligamentum flavum thickening with moderate facet arthrosis. The central canal is patent. Mild right with aquy-ya-ovpnkdst left neural foraminal narrow ing. IMPRESSION: 1. No acute fracture. 2. Discogenic degeneration with facet arthrosis as detailed level by level above. No high-grade centr al canal or neural foraminal narrowing. ACT 112: Negative or not required by law. The above report was generated using voice recognition software. It may contain grammatical, syntax o r spelling errors. Dictated: 11/14/2022 1:09 PM Transcribed: 11/14/2022 1:28 PM Meg [id number] [email or web address] Electronically signed by: Isac Fernandez M.D. 11/14/2022 1:49 PM
--- NOTE | 2022-11-14 14:02 | Nephrology Progress Note ---
Date of Service November 14, 2022 Assessment & Plan (1) ESRD on peritoneal dialysis: (2) Bacteremia: (3) Anemia: (4) Hypertension: Plan 72yof with ESRD (on peritoneal dialysis), paroxysmal atrial fibrillation, HTN, HLD, CAD (s/p stent), IDDM2, HFpEF, aortic stenosis, anemia admitted with presents with a few-day history of SOB and LE edema, associated with nausea and vomiting found to have bacteremia. PD has been uneventful, no sign of peritonitis. Overall stable. --continue current PD Rx with Delflex 2.5 alternate with 4.5, she has been having decent UF with the current prescription. --TRAE for Hb <10. --dose meds for eGFR <10 --waiting on Rehab DC. Will follow Admission and Anticipated Discharge Date Admission Date: November 09, 2022 Ivis Piña was seen and evaluated this morning. She denies any shortness of breath or chest pain. PD was uneventful overnight, continues to have decent UF around 1500 ml with current PD Rx. Blood pressure well controlled. Review of Systems Review of Systems: Detail ROS was unremarkable. Physical Exam Constitutional: WD/WN, vitals as above no acute distress Respiratory: normal respiratory effort; no respiratory distress Auscultation: lungs clear to auscultation bilaterally Cardiovascular: Rate/Rhythm: regular rate and regular rhythm Heart Sounds: normal S1 and normal S2 Extremities: + edema (slight rt LE edema) Skin: no rashes Neurologic: no focal motor deficits and not confused Psychiatric: Orientation: alert and oriented x 3 Results & Data ([facility]) Vital Signs (Past 12 Hours) Vital Signs Temp Pulse Pulse Resp BP BP Pulse Ox 11/14/22 12:09 36.3 C L 62 18 118/70 93 11/14/22 11:22 11/14/22 08:32 67 11/14/22 08:00 37.3 C 65 19 11/14/22 08:03 37.3 C 65 19 152/70 H 94 11/14/22 02:56 36.9 C 65 123/74 95 O2 Del Method 11/14/22 12:09 Room Air 11/14/22 11:22 Room Air 11/14/22 08:32 11/14/22 08:00 11/14/22 08:03 Room Air 11/14/22 02:56 Room Air PG Care Time/CCT Total # of Minutes Spent Total Time Spent with Patient: Total time spent is greater than 50% in coordination of care (as documented) at patient's floor/unit and/or counseling patient: Coding Level of Care Code 29577 SUB INP/OBS CARE 2/35MIN Diagnoses ESRD on peritoneal dialysis N18.6; Z99.2 Bacteremia R78.81 Anemia D64.9 Hypertension I10 Hypertension type: essential hypertension (1) Hypertension Hypertension type: essential hypertension Qualified Code(s): I10 - Essential (primary) hypertension
--- NOTE | 2022-11-14 19:47 | XRay Report ---
XR hip LT min 2V, XR hip RT min 2V CLINICAL HISTORY: difficulty walking; assess for OA. Bilateral hip pain. COMPARISON STUDY: Left hip 07/05/2014. FINDINGS: No fracture or dislocation within the right or left hip. Mild vascular calcifications are n oted. The visualized pelvic bones are intact. Mild osteoarthritis within the left hip demonstrated by mild cartilage space narrowing and small marginal osteophytes. There is a partially visualized abe ter within the pelvis. IMPRESSION: 1. No fractures identified within the right or left hip. 2. Mild osteoarthritis within the left hip, unchanged. ACT 112: Negative or not required by law. Electronically signed by: Donovan Mendez M.D. 11/14/2022 7:46 PM
--- NOTE | 2022-11-14 21:01 | Hospitalist Progress Note ---
Date of Service November 14, 2022 Assessment & Plan (1) Septicemia: Plan: 2nd to e.coli. source - urine, as urine cx with e.coli as well. CT a/p with left-sided kidney findings likely due to pyelonephritis; can't rule out a recently passed stone based on CT findings as well. Fortunately no obstructing kidney stone seen. Repeat blood cultures 11/12/22 cont to be negative to date. Initially on IV Zosyn --> now IV ceftriaxone on 11/11/22. Will need total of 14 days of Rx from date of negative cultures. Thus, today is day #3. Should be able to transition to cipro PO -- will have to speak with pharmacy about dosing given her PD status. (2) Breath shortness: Plan: 2nd to #1 2nd to volume overload/pulmonary edema improving/resolved (3) Anemia due to chronic kidney disease: Plan: H/h low but stable cont to trend (4) Yeast infection of the vagina: Plan: Continue clotrimazole vaginal suppositories x 7 days Received 1 dose of fluconazole 150 Mg p.o. x 1 on 11/09 improved (5) Aortic stenosis: Plan: moderate to severe aortic stenosis on echo Follow as an outpatient with cardiology (6) Atrial fibrillation: Plan: Paroxysmal Again no runs overnight Continue Eliquis BID Continue metoprolol - dose increased to 50mg BID today by cardiology and tolerating that dose increase (7) CAD (coronary artery disease): Plan: With a history of RCA stent 09/2018, left circumflex stent 08/2010 Continue home apixaban, atorvastatin, Plavix, isosorbide, metoprolol Echocardiogram here without wall motion abnormalities, but with severe LVH, moderate-severe aortic stenosis Mildly elevated troponin likely due to myocardial demand ischemia rather than ACS (8) ESRD on peritoneal dialysis: Plan: Continue peritoneal dialysis with no daytime dwell as per nephrology due to patient preference Follow labs Continue Nephrocaps, calcitriol Appreciate nephrology assistance (9) Hyperlipidemia: Plan: Continue statin (10) Hypertension: Plan: Continue metoprolol, isosorbide Holding home nifedipine due to her c/o LE edema which is quite bothersome to her (11) Type 2 diabetes mellitus: Plan: Cont Lantus and NovoLog - adjusted latter due to pre-prandial hyperglycemia Hemoglobin A1c 7.6% (12) Edema: Plan: Venous Dopplers negative on admission Likely due to volume overload from end-stage renal disease - continue PD Also on nifedipine which can cause peripheral edema - now on hold (13) Lower extremity weakness: Plan: present for 9 months per her recollection; per daughter only 3+ [address] it is b/l legs, worse on right MRI lumbar spine with DJD and only mild spinal stenosis at a couple of levels; nothing on MRI to explain the severity of her weakness B12 level low-normal but likely not low enough to explain weakness; [id number] give PO replacement check a CPK in am, although her exam and complaints are not c/w myopathy or myositis consider MRI brain to r/o old CVA as cause hip x-rays without mod-severe DJD contributing to "legs giving out" at minimum has deconditioning given chronicity of her complaints and her limited physical activity on day to day basis at home cont PT/OT will go to [facility] post-d/c if MRI brain is obtained and is negative will send to neurology post-d/c for additional w/u could she have diabetic neuropathy contributing to complaints? Plan DVT prophylaxis - [facility] dispo - [facility] at d/c daughter extensively updated at bedside today Admission and Anticipated Discharge Date Admission Date: November 09, 2022 Subjective patient able to tolerate MRI laid flat in the machine and had no major orthopnea denies cough eating ok edema right leg improved main complaint is her walking and leg weakness during this conversation her daughter walked into the room yesterday Ms Mcnulty had told me she "hadn't walked for 9 months" daughter disputed that time frame, stating it was closer to 3 months? again pt reports her "legs give out" when she tries to stand and walk; right leg is worse than left leg she denies any significant hip, groin or knee pain Review of Systems Review of Systems: gen - no fevers or chills cv - no chest pain pulm - no cough, no wheezing GI - no abd pain, nausea or emesis Physical Exam Physical Exam: gen - NAD, awake, alert - looks good neck - no JVD heart - RRR, s1 s2, 2/6 systolic murmur RUSB lungs - CTA b/l abd - soft NT ND BS+ ext - 1-2+ edema right leg, trace on left, pulses 2+ b/l neuro - b/l arm strength & handgrip 5/5; DTRs upper exts 1+; hip flexion on right about 4/5; left hip flexion 5/5; dorsiflexion/plantarflexion of both feet & ankles 5/5 musculo - minimally restricted ROM of b/l hips with internal/external rotation and hip flexion; no pain with these passive maneuvers. Mild crepitus of right knee, none left knee. No pain with passive movement of either knee. Results & Data Results & Data ([facility]) Vital Signs (Past 12 Hours) Vital Signs Temp Pulse Pulse Resp BP Pulse Ox O2 Del Method 11/14/22 19:00 36.6 C 61 20 183/76 H 95 Room Air 11/14/22 18:51 36.9 C 66 19 138/76 11/14/22 16:26 36.9 C 66 19 138/76 93 Room Air 11/14/22 15:31 70 11/14/22 12:09 36.3 C L 62 18 118/70 93 Room Air 11/14/22 11:22 Room Air Laboratory Results Laboratory Results - last 24 hr 11/14/22 11/14/22 11/14/22 07:31 08:06 08:06 WBC 18.68 H RBC 2.92 L Hgb 8.9 L Hct 26.5 L MCV 90.8 MCH 30.5 MCHC 33.6 RDW Std Deviation 51.4 H RDW Coeff of Ekaterina 15.5 H Plt Count 333 MPV 11.0 Immature Gran % (Auto) 2.5 Neut % (Auto) 75.8 Lymph % (Auto) 8.5 Jefferson % (Auto) 9.2 Eos % (Auto) 3.2 Baso % (Auto) 0.8 Neut # (Auto) 14.18 H Lymph # (Auto) 1.58 Jefferson # (Auto) 1.71 H Eos # (Auto) 0.60 H Baso # (Auto) 0.15 Immature Gran # (Auto) 0.46 H Absolute Nucleated RBC 0.07 H Nucleated RBC % (auto) 0.4 Sodium 136 Potassium 3.6 Chloride 94 L Carbon Dioxide 23 Anion Gap 19 H BUN 59 H Creatinine 8.85 H* D Est Cr Clr Drug Dosing 5.8 Est GFR ( Amer) 4.7 Est GFR (Non-Af Amer) 4.0 BUN/Creatinine Ratio 6.7 L Glucose 144 H POC Glucose 143 H Calcium 8.7 Total Bilirubin 0.3 AST 59 H ALT 73 H Alkaline Phosphatase 165 H Total Protein 7.1 Albumin 2.6 L Globulin 4.5 H Albumin/Globulin Ratio 0.6 L Vitamin B12 11/14/22 11/14/22 11/14/22 08:06 11:26 16:40 WBC RBC Hgb Hct MCV MCH MCHC RDW Std Deviation RDW Coeff of Ekaterina Plt Count MPV Immature Gran % (Auto) Neut % (Auto) Lymph % (Auto) Jefferson % (Auto) Eos % (Auto) Baso % (Auto) Neut # (Auto) Lymph # (Auto) Jefferson # (Auto) Eos # (Auto) Baso # (Auto) Immature Gran # (Auto) Absolute Nucleated RBC Nucleated RBC % (auto) Sodium Potassium Chloride Carbon Dioxide Anion Gap BUN Creatinine Est Cr Clr Drug Dosing Est GFR ( Amer) Est GFR (Non-Af Amer) BUN/Creatinine Ratio Glucose POC Glucose 133 H 148 H Calcium Total Bilirubin AST ALT Alkaline Phosphatase Total Protein Albumin Globulin Albumin/Globulin Ratio Vitamin B12 276 11/14/22 20:20 WBC RBC Hgb Hct MCV MCH MCHC RDW Std Deviation RDW Coeff of Ekaterina Plt Count MPV Immature Gran % (Auto) Neut % (Auto) Lymph % (Auto) Jefferson % (Auto) Eos % (Auto) Baso % (Auto) Neut # (Auto) Lymph # (Auto) Jefferson # (Auto) Eos # (Auto) Baso # (Auto) Immature Gran # (Auto) Absolute Nucleated RBC Nucleated RBC % (auto) Sodium Potassium Chloride Carbon Dioxide Anion Gap BUN Creatinine Est Cr Clr Drug Dosing Est GFR ( Amer) Est GFR (Non-Af Amer) BUN/Creatinine Ratio Glucose POC Glucose 219 H Calcium Total Bilirubin AST ALT Alkaline Phosphatase Total Protein Albumin Globulin Albumin/Globulin Ratio Vitamin B12 Diagnostic Findings Lumbar Spine MRI 11/14/22 00:00 MR lumbar spine wo con CLINICAL HISTORY: 72 years-old Female with b/l leg weakness. Chronic low back pain with lower extremity weakness. COMPARISON: CT abdomen and pelvis 11/13/2022 TECHNIQUE: Multiplanar, multi sequence MRI of the lumbar spine was performed without intravenous contrast. FINDINGS: Motion degraded exam. Conus medullaris terminates at the L1 level. No acute fracture, subluxation, significant marrow edema or marrow replacing process. Bilateral renal cysts are redemonstrated. Left-sided hydroureteronephrosis is again noted. No paravertebral edema. Mild to moderate intervertebral disc space narrowing with mild spondylitic spurring and moderate to severe facet arthrosis. Mild Modic type I and II endplate degeneration at the L2-L3 level. T12-L1: Mild spondylitic spurring with moderate facet arthrosis. No central canal or neural foraminal narrowing. L1-L2: Mild to moderate intervertebral disc space narrowing and spondylitic spurring with small circumferential annular disc bulge. Ligamentum flavum thickening with moderate facet arthrosis. No central canal or neural foraminal narrowing. L2-L3: Moderate to severe intervertebral disc space narrowing with spondylitic spurring and small circumferential annular disc bulge. Ligamentum flavum thickening with moderate facet arthrosis. Mild central canal stenosis, AP dimension of the thecal sac measuring approximately 9.5 mm. Mild narrowing of the lateral recesses. Mild to moderate right with mild left neural foraminal narrowing. L3-L4: Mild spondylitic spurring. Ligamentum flavum thickening with moderate facet arthrosis. The central canal is patent. Mild right with [id number] left neural foraminal narrowing. L4-L5: Mild spondylitic spurring. Ligamentum flavum thickening with severe facet arthrosis. Mild central canal stenosis, AP dimension of the thecal sac measuring 9 mm. Moderate left with mild to moderate right neural foraminal narrowing. L5-S1: Mild to moderate intervertebral disc space narrowing with spondylitic spurring, small posterior annular disc bulge with central disc protrusion. Ligamentum flavum thickening with moderate facet arthrosis. The central canal is patent. Mild right with [id number] left neural foraminal narrowing. IMPRESSION: 1. No acute fracture. 2. Discogenic degeneration with facet arthrosis as detailed level by level above. No high-grade central canal or neural foraminal narrowing. ACT 112: Negative or not required by law. The above report was generated using voice recognition software. It may contain grammatical, syntax or spelling errors. Dictated: 11/14/2022 1:09 PM Transcribed: 11/14/2022 1:28 PM Meg [id number] [email or web address] Electronically signed by: Isac Fernandez M.D. 11/14/2022 1:49 PM Hip X-Ray 11/14/22 17:46 XR hip LT min 2V, XR hip RT min 2V CLINICAL HISTORY: difficulty walking; assess for OA. Bilateral hip pain. COMPARISON STUDY: Left hip 07/05/2014. FINDINGS: No fracture or dislocation within the right or left hip. Mild vascular calcifications are noted. The visualized pelvic bones are intact. Mild osteoarthritis within the left hip demonstrated by mild cartilage space narrowing and small marginal osteophytes. There is a partially visualized catheter within the pelvis. IMPRESSION: 1. No fractures identified within the right or left hip. 2. Mild osteoarthritis within the left hip, unchanged. ACT 112: Negative or not required by law. Electronically signed by: Donovan Mendez M.D. 11/14/2022 7:46 PM Hip X-Ray 11/14/22 17:46 XR hip LT min 2V, XR hip RT min 2V CLINICAL HISTORY: difficulty walking; assess for OA. Bilateral hip pain. COMPARISON STUDY: Left hip 07/05/2014. FINDINGS: No fracture or dislocation within the right or left hip. Mild vascular calcifications are noted. The visualized pelvic bones are intact. Mild osteoarthritis within the left hip demonstrated by mild cartilage space narrowing and small marginal osteophytes. There is a partially visualized cat heter within the pelvis. IMPRESSION: 1. No fractures identified within the right or left hip. 2. Mild osteoarthritis within the left hip, unchanged. ACT 112: Negative or not required by law. Electronically signed by: Donovan Mendez M.D. 11/14/2022 7:46 PM PG Care Time/CCT Total # of Minutes Spent Total Time Spent with Patient: Total time spent is greater than 50% in coordination of care (as documented) at patient's floor/unit and/or counseling patient: Coding Level of Care Code 52433 SUB INP/OBS CARE 3/50MIN Diagnoses Septicemia A41.9 Breath shortness R06.02 Anemia due to chronic kidney disease N18.9; D63.1 Yeast infection of the vagina B37.31 Aortic stenosis I35.0 Atrial fibrillation I48.91 CAD (coronary artery disease) I25.10 Associated angina: without angina Coronary Disease-Associated Artery/Lesion type: [place] artery [place] vs. transplanted heart: [place] heart ESRD on peritoneal dialysis N18.6; Z99.2 Hyperlipidemia E78.5 Hyperlipidemia type: unspecified Hypertension I10 Hypertension type: essential hypertension Type 2 diabetes mellitus E11.9 Edema R60.9 Lower extremity weakness R29.898 (1) CAD (coronary artery disease) Associated angina: without angina Coronary Disease-Associated Artery/Lesion type: [place] artery [place] vs. transplanted heart: [place] heart Qualified Code(s): I25.10 - Atherosclerotic heart disease of [place] coronary artery without angina pectoris (2) Hyperlipidemia Hyperlipidemia type: unspecified Qualified Code(s): E78.5 - Hyperlipidemia, unspecified (3) Hypertension Hypertension type: essential hypertension Qualified Code(s): I10 - Essential (primary) hypertension
[2022-11-15] MEDS ORDERED: LORazepam 0.5 MG TAB PO ONE (05:58)
[2022-11-15] MEDS: NEPHROCAPS PO SCH (08:10)
[2022-11-15] MEDS: APIXABAN 2.5 MG TAB PO SCH ×2 (08:10→22:06)
[2022-11-15] MEDS: CLOTRIMAZOLE VAGINAL CR 7 APPLN/45 GM TUBE PV SCH (08:10)
[2022-11-15] MEDS: ATORVASTATIN 40 MG TAB PO SCH (08:11)
[2022-11-15] MEDS: CALCITRIOL 0.25 MCG CAPSULE PO SCH (08:11)
[2022-11-15] MEDS: ISOSORBIDE MONO EXTENDED REL 60 MG TABCR PO SCH (08:11)
[2022-11-15] MEDS: CLOPIDOGREL BISULFATE 75 MG TAB PO SCH (08:11)
[2022-11-15] MEDS: allopurinoL 100 MG TAB PO SCH (08:11)
[2022-11-15] MEDS: METOPROLOL TARTRATE 50 MG TAB PO SCH ×2 (08:11→22:06)
[2022-11-15] MEDS: LANTUS PER UNIT CHARGE SQ SCH ×2 (08:14→22:19)
[2022-11-15] MEDS: INSULIN LISPRO 100 UNITS/ML PEN SC SCH ×4 (08:14→22:19)
[2022-11-15] MEDS ORDERED: LORazepam 2 MG/1 ML VIAL IV STA (09:02)
[2022-11-15 09:45] LABS: Total Protein 6.6 gm/dl (6.0-8.3)
--- NOTE | 2022-11-15 11:22 | Magnetic Resonance Report ---
MR brain wo con HISTORY: 72 years-old Female b/l leg weaknes, RLE>LLE acute weakness COMPARISON: Brain MRI 07/31/2010 TECHNIQUE: Multiplanar multisequence MRI of the brain was obtained without the use of IV contrast FINDINGS: No restricted diffusion. Degenerative changes of the imaged cervical spine. The study is motion degra ded. Partially empty sella. No pathologic blooming artifact. Motion degraded exam. No acute intracran ial hemorrhage, midline shift, abnormal extra axial collection, hydrocephalus or intracranial mass id entified. Mild involutional changes. Mild to moderate T2/FLAIR hyperintense foci throughout the white matter, progressed from the prior study. Cerebral venous sinuses and major arterial flow voids appear patent. The skull, orbits and soft tissu es are unremarkable. Trace right mastoid effusion. Left mastoid air cells and paranasal sinuses are g enerally clear. IMPRESSION: 1. No acute intracranial abnormality. No acute or subacute infarct. 2. Involutional changes with chronic microvascular ischemic disease. ACT 112: Negative or not required by law. The above report was generated using voice recognition software. It may contain grammatical, syntax o r spelling errors. Electronically signed by: Isac Fernandez M.D. 11/15/2022 11:20 AM
[2022-11-15] MEDS: cefTRIAXone SODIUM 2,000 MG in DEXTROSE 5% 50 ML IV SCH (12:05)
[2022-11-15 13:33] LABS: Albumin Level 2.5 gm/dl (3.4-5.0); Bilirubin,Total 0.3 mg/dl (0.2-1.0)
[2022-11-15] MEDS: ACETAMINOPHEN 325 MG TAB PO PRN ×2 (14:51→22:03)
--- NOTE | 2022-11-15 15:40 | Nephrology Progress Note ---
Date of Service November 15, 2022 Assessment & Plan (1) ESRD on peritoneal dialysis: (2) Bacteremia: (3) Anemia: (4) Hypertension: Plan 72yof with ESRD (on peritoneal dialysis), paroxysmal atrial fibrillation, HTN, HLD, CAD (s/p stent), IDDM2, HFpEF, aortic stenosis, anemia admitted with presents with a few-day history of SOB and LE edema, associated with nausea and vomiting found to have bacteremia. PD has been uneventful, no sign of peritonitis. Overall stable, PD has been uneventful. --continue current PD Rx with Delflex 2.5 alternate with 4.5, she has been having decent UF with the current prescription. --Epogen 97860 units x 1 dose --dose meds for eGFR <10 --waiting on Rehab DC. Will follow Admission and Anticipated Discharge Date Admission Date: November 09, 2022 Ivis Piña was seen and evaluated this morning. She denies any shortness of breath or chest pain. PD was uneventful overnight, continues to have decent UF around 1 600 ml with current PD Rx. Blood pressure well controlled. Abdominal pain resolved. Lower back MRI with no acute findings. Review of Systems Review of Systems: Detail ROS was unremarkable. Physical Exam Constitutional: WD/WN, vitals as above no acute distress Eyes: + anicteric sclerae ENMT: Ears: no hearing impairment Neck: normal visual inspection Respiratory: normal respiratory effort; no respiratory distress Auscultation: lungs clear to auscultation bilaterally Cardiovascular: Rate/Rhythm: regular rate and regular rhythm Heart Sounds: normal S1 and normal S2 Extremities: + edema (slight rt LE edema) Skin: no rashes Neurologic: no focal motor deficits and not confused Psychiatric: Orientation: alert and oriented x 3 Results & Data ([facility]) Vital Signs (Past 12 Hours) Vital Signs Temp Pulse Pulse Pulse Resp BP Pulse Ox 11/15/22 15:33 36.8 C 63 18 127/58 L 97 11/15/22 15:17 60 11/15/22 11:53 36.6 C 58 L 18 123/71 90 11/15/22 10:46 11/15/22 10:42 60 11/15/22 08:00 36.6 C 80 18 11/15/22 07:48 36.6 C 60 18 150/72 H 96 O2 Del Method 11/15/22 15:33 Room Air 11/15/22 15:17 11/15/22 11:53 Room Air 11/15/22 10:46 Room Air 11/15/22 10:42 11/15/22 08:00 11/15/22 07:48 Room Air PG Care Time/CCT Total # of Minutes Spent Total Time Spent with Patient: Total time spent is greater than 50% in coordination of care (as documented) at patient's floor/unit and/or counseling patient: Coding Level of Care Code 19757 SUB INP/OBS CARE 2/35MIN Diagnoses ESRD on peritoneal dialysis N18.6; Z99.2 Bacteremia R78.81 Anemia D64.9 Hypertension I10 Hypertension type: essential hypertension (1) Hypertension Hypertension type: essential hypertension Qualified Code(s): I10 - Essential (primary) hypertension
[2022-11-15] MEDS ORDERED: EPOETIN ALFA 20,000 UNITS/ML VIAL SQ STA (15:41)
--- NOTE | 2022-11-15 19:55 | Hospitalist Progress Note ---
Date of Service November 15, 2022 Assessment & Plan (1) Elevated CPK: Plan: In 10/2019 the patient had rhabdomyolysis / elevated CPK and at that time it was thought to be statin induced. CPK normalized OFF the statin. She was symptomatic at that time with myalgias, weakness, etc. It appears she was started on statin therapy in 2021 again, exact date uncertain. Her LE weakness began sometime within the last 6-9 months. Her CPK is mildly elevated today. 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 Will HOLD statin. Send HMG-CoA reductase inhibitor antibody which, if +, would suggest statin- induced myopathy. repeat CPK and LFTs in am. Post-discharge would send to neurology and rheumatology for follow-up of this issue. MRI brain and MRI lumbar spine without findings to account for her LE weakness. (2) Lower extremity weakness: Plan: present for 9 months per her recollection; per daughter only 3+ months either way it is b/l legs, a little worse on right. she has difficulty climbing steps, moving her legs from the bed to the floor, etc. MRI lumbar spine with DJD and only mild spinal stenosis at a couple of levels; nothing on MRI to explain the severity of her weakness B12 level low-normal but likely not low enough to explain weakness; [id number] give PO replacement CPK mildly elevated - see #1 above. MRI brain without old (or new) CVA to account for symptoms. hip x-rays without mod-severe DJD contributing to "legs giving out" at minimum has deconditioning given chronicity of her complaints and her limited physical activity on day to day basis at home however, the elevated CPK may suggest the problem as noted in #1 above diabetic neuropathy could also be contributing to symptoms cont PT/OT will go to [facility] post-d/c post discharge would send to rheum and neurology for additional w/u as needed (3) Septicemia: Plan: 2nd to e.coli. source - urine, as urine cx with e.coli as well. CT a/p with left-sided kidney findings likely due to pyelonephritis; can't rule out a recently passed stone based on CT findings as well. Fortunately no obstructing kidney stone seen. Repeat blood cultures 11/12/22 cont to be negative to date. Initially on IV Zosyn --> now IV ceftriaxone since 11/11/22. Will need total of 14 days of Rx from date of negative cultures. Thus, today is day #4. Could consider transition to once daily Cipro, but in light of recurrent cultures being positive, would favor IV rocephin. Could consider ID consultation for such. (4) Breath shortness: Plan: 2nd to volume overload/pulmonary edema resolved with serial, daily PD treatments appreciate nephrology assistance (5) Anemia due to chronic kidney disease: Plan: H/h low but stable cont to trend (6) Yeast infection of the vagina: Plan: Continue clotrimazole vaginal suppositories x 7 days Received 1 dose of fluconazole 150 Mg p.o. x 1 on 11/09 improved - no recent complaints (7) Aortic stenosis: Plan: moderate to severe aortic stenosis on echo Follow as an outpatient with cardiology (8) Atrial fibrillation: Plan: Paroxysmal Again no runs overnight Continue Eliquis BID Continue metoprolol - dose increased to 50mg BID today by cardiology and tolerating that dose increase (9) CAD (coronary artery disease): Plan: With a history of RCA stent 09/2018, left circumflex stent 08/2010 Continue home apixaban, atorvastatin, Plavix, isosorbide, metoprolol Echocardiogram here without wall motion abnormalities, but with severe LVH, moderate-severe aortic stenosis Mildly elevated troponin likely due to myocardial demand ischemia rather than ACS (10) ESRD on peritoneal dialysis: Plan: Continue peritoneal dialysis with no daytime dwell as per nephrology due to patient preference Follow labs Continue Nephrocaps, calcitriol Appreciate nephrology assistance (11) Hyperlipidemia: Plan: HOLD STATIN as in #1 above (12) Hypertension: Plan: Continue metoprolol, isosorbide Holding home nifedipine due to her c/o LE edema which is quite bothersome to her (13) Type 2 diabetes mellitus: Plan: Cont Lantus and NovoLog - adjusted latter due to pre-prandial hyperglycemia Hemoglobin A1c 7.6% (14) Edema: Plan: Venous Dopplers negative on admission Likely due to volume overload from end-stage renal disease - continue PD Also on nifedipine which can cause peripheral edema - now on hold (15) Abnormal LFTs: Plan: 2nd to statin? passive congestion from volume overload? other? liver on CT a/p without pathology serial LFTs hold statin (16) Leukocytosis: Plan: WBC count has been elevated chronically going back to 2019 will order a formal peripheral smear by pathology in the AM to date no smudge cells, etc on differential Plan DVT prophylaxis - Cora dispo - [facility] at d/c daughter extensively updated at bedside yesterday Admission and Anticipated Discharge Date Admission Date: November 09, 2022 Subjective patient w/o any new specific complaints was upset that she had the MRI brain this am without her permission or notification we had lengthy discussion about this and that it was ordered due to her LE weakness x months discussed that MRI did not show old or new stroke or other pathology we discussed that her lipitor was started in early 2021 and perhaps the lipitor was the cause of her b/l LE weakness tele overnight stable Review of Systems Review of Systems: gen - eating ok; no fevers or chills cv - no chest pain; edema improved RLE pulm - dyspnea resolved musculo - no myalgias; chronic back pain unchanged neuro - ongoing prox muscle weakness both legs Physical Exam Physical Exam: gen - NAD, awake, alert, sitting in chair neck - no JVD heart - RRR, s1 s2, 2/6 systolic murmur RUSB lungs - CTA b/l abd - soft NT ND BS+ ext - 1+ edema right leg, none on left, pulses 2+ b/l neuro - b/l arm strength & handgrip 5/5; hip flexion on right about 4/5; left hip flexion 4/5; dorsiflexion/plantarflexion of both feet & ankles 5/5 psych - a/o x 3, agitated Results & Data Results & Data ([facility]) Vital Signs (Past 12 Hours) Vital Signs Temp Pulse Pulse Pulse Resp BP Pulse Ox 11/15/22 16:55 36.7 C 68 18 131/61 11/15/22 15:33 36.8 C 63 18 127/58 L 97 11/15/22 15:17 60 11/15/22 11:53 36.6 C 58 L 18 123/71 90 11/15/22 10:46 11/15/22 10:42 60 11/15/22 08:00 36.6 C 80 18 O2 Del Method 11/15/22 16:55 11/15/22 15:33 Room Air 11/15/22 15:17 11/15/22 11:53 Room Air 11/15/22 10:46 Room Air 11/15/22 10:42 11/15/22 08:00 Laboratory Results Laboratory Results - last 24 hr 11/14/22 11/15/22 11/15/22 20:20 07:35 07:48 POC Glucose 219 H 136 H Total Bilirubin 0.3 Direct Bilirubin 0.0 AST 59 H ALT 77 H Alkaline Phosphatase 156 H Total Creatine Kinase 348 H Total Protein 6.6 Albumin 2.5 L 11/15/22 11/15/22 11:40 16:23 POC Glucose 199 H 177 H Total Bilirubin Direct Bilirubin AST ALT Alkaline Phosphatase Total Creatine Kinase Total Protein Albumin PG Care Time/CCT Total # of Minutes Spent Total Time Spent with Patient: Total time spent is greater than 50% in coordination of care (as documented) at patient's floor/unit and/or counseling patient: Coding Level of Care Code 76898 SUB INP/OBS CARE 3/50MIN Diagnoses Elevated CPK R74.8 Lower extremity weakness R29.898 Septicemia A41.9 Breath shortness R06.02 Anemia due to chronic kidney disease N18.9; D63.1 Yeast infection of the vagina B37.31 Aortic stenosis I35.0 Atrial fibrillation I48.91 CAD (coronary artery disease) I25.10 Associated angina: without angina Coronary Disease-Associated Artery/Lesion type: [place] artery [place] vs. transplanted heart: [place] heart ESRD on peritoneal dialysis N18.6; Z99.2 Hyperlipidemia E78.5 Hyperlipidemia type: unspecified Hypertension I10 Hypertension type: essential hypertension Type 2 diabetes mellitus E11.9 Edema R60.9 Abnormal LFTs R79.89 Leukocytosis D72.829 (1) CAD (coronary artery disease) Associated angina: without angina Coronary Disease-Associated Artery/Lesion type: [place] artery [place] vs. transplanted heart: [place] heart Qualified Code(s): I25.10 - Atherosclerotic heart disease of [place] coronary artery without angina pectoris (2) Hyperlipidemia Hyperlipidemia type: unspecified Qualified Code(s): E78.5 - Hyperlipidemia, unspecified (3) Hypertension Hypertension type: essential hypertension Qualified Code(s): I10 - Essential (primary) hypertension
[2022-11-16 07:02] LABS: Hematocrit (blood only) 29.6 % (34.1-44.9); Hemoglobin 9.8 g/dl (12.0-16.0); Mean Corpuscular Hemoglobin 30.7 pg (25.0-34.0); Mean Corpuscular Hgb Conc 33.1 g/dL (32.0-36.0); Mean Corpuscular Volume 92.8 fL (80.0-100.0); Mean Platelet Volume 11.1 fL (9.4-12.3); Nucleated RBC # (auto) 0.25 K/uL (0-0); Nucleated RBC % (auto) 1.2 %; Platelet Count 364 K/uL (130-400); RDW Coefficient of Variation 15.7 % (11.5-14.5); RDW Standard Deviation 51.6 fL (36.4-46.3); Red Blood Count 3.19 M/uL (3.93-5.22); White Blood Count 21.06 K/ul (4.8-10.8)
[2022-11-16 08:23] LABS: Albumin Level 2.7 gm/dl (3.4-5.0); Bilirubin,Total 0.3 mg/dl (0.2-1.0); Calcium 8.6 mg/dl (8.5-10.1); Potassium 3.3 mmol/L (3.5-5.1)
[2022-11-16 08:34] LABS: Albumin Globulin Ratio 0.6 (0.9-2); Creatinine Clr Calc Pharmacy 6.1 ml/min; Est GFR (African American) 4.9 ml/min; Est GFR (Non-African American) 4.2 ml/min; Globulin 4.3 gm/dl (2.5-4.0)
[2022-11-16 08:37] LABS: Basophils # (auto) 0.15 K/uL (0-0.2); Basophils % (auto) 0.7 %; Eosinophils # (auto) 0.71 K/uL (0-0.50); Eosinophils % (auto) 3.4 %; Immature Granulocytes # (auto) 0.86 K/uL (0.00-0.02); Immature Granulocytes % (auto) 4.1 %; Lymphocytes # (auto) 2.12 K/uL (1.2-3.4); Lymphocytes % (auto) 10.1 %; Monocytes # (auto) 1.65 K/uL (0.24-0.82); Monocytes % (auto) 7.9 %; Neutrophils # (auto) 15.48 K/uL (1.4-6.5); Neutrophils % (auto) 73.8 %
[2022-11-16] MEDS: METOPROLOL TARTRATE 50 MG TAB PO SCH ×2 (08:59→21:54)
[2022-11-16] MEDS: CALCITRIOL 0.25 MCG CAPSULE PO SCH (08:59)
[2022-11-16] MEDS: allopurinoL 100 MG TAB PO SCH (08:59)
[2022-11-16] MEDS: NEPHROCAPS PO SCH (08:59)
[2022-11-16] MEDS: CLOTRIMAZOLE VAGINAL CR 7 APPLN/45 GM TUBE PV SCH (08:59)
[2022-11-16] MEDS: ISOSORBIDE MONO EXTENDED REL 60 MG TABCR PO SCH (08:59)
[2022-11-16] MEDS: CLOPIDOGREL BISULFATE 75 MG TAB PO SCH (08:59)
[2022-11-16] MEDS: APIXABAN 2.5 MG TAB PO SCH ×2 (08:59→21:54)
[2022-11-16] MEDS: INSULIN LISPRO 100 UNITS/ML PEN SC SCH ×4 (09:03→21:55)
[2022-11-16] MEDS: LANTUS PER UNIT CHARGE SQ SCH ×2 (09:06→21:55)
[2022-11-16] MEDS ORDERED: POTASSIUM CHLORIDE CRTAB 20 MEQ TABCR PO STA (09:46)
[2022-11-16] MEDS: CIPROFLOXACIN 500 MG TAB PO SCH (10:25)
[2022-11-16] MEDS: ADVANCED PROBIOTIC 1250 MG CAPSULE PO SCH (10:25)
--- NOTE | 2022-11-16 15:09 | Nephrology Progress Note ---
Date of Service November 16, 2022 Assessment & Plan (1) ESRD on peritoneal dialysis: (2) Bacteremia: (3) Anemia: (4) Hypertension: Plan 72yof with ESRD (on peritoneal dialysis), paroxysmal atrial fibrillation, HTN, HLD, CAD (s/p stent), IDDM2, HFpEF, aortic stenosis, anemia admitted with presents with a few-day history of SOB and LE edema, associated with nausea and vomiting found to have bacteremia. PD has been uneventful, no sign of peritonitis. Overall stable, PD has been uneventful. --continue current PD Rx with Delflex 2.5 alternate with 4.5, she has been having decent UF with the current prescription. --Epogen 76682 units x 1 dose --dose meds for eGFR <10 --waiting on Rehab DC. Will follow Admission and Anticipated Discharge Date Admission Date: November 09, 2022 Ivis Piña was resting this morning during visit. labs and vital signs reviewed, blood pressure stable had decent dialysis overnight, acceptable ultrafiltration. Had MRI brain for lower extremity weakness which was unremarkable. Results & Data ([facility]) Vital Signs (Past 12 Hours) Vital Signs Temp Pulse Pulse Pulse Resp BP Pulse Ox 11/16/22 11:33 36.5 C 56 L 20 119/71 99 11/16/22 08:10 36.6 C 60 20 11/16/22 08:16 36.6 C 60 20 150/77 H 95 11/16/22 07:52 63 11/16/22 07:00 75 O2 Del Method 11/16/22 11:33 Room Air 11/16/22 08:10 11/16/22 08:16 Room Air 11/16/22 07:52 11/16/22 07:00 PG Care Time/CCT Total # of Minutes Spent Total Time Spent with Patient: Total time spent is greater than 50% in coordination of care (as documented) at patient's floor/unit and/or counseling patient: Coding Level of Care Code 16535 SUB INP/OBS CARE 2/35MIN Diagnoses ESRD on peritoneal dialysis N18.6; Z99.2 Bacteremia R78.81 Anemia D64.9 Hypertension I10 Hypertension type: essential hypertension (1) Hypertension Hypertension type: essential hypertension Qualified Code(s): I10 - Essential (primary) hypertension
[2022-11-16] MEDS: ACETAMINOPHEN 325 MG TAB PO PRN (18:32)
--- NOTE | 2022-11-16 20:13 | Hospitalist Progress Note ---
Date of Service November 16, 2022 Assessment & Plan (1) Elevated CPK: Plan: In 10/2019 the patient had rhabdomyolysis / elevated CPK and at that time it was thought to be statin induced. CPK normalized OFF the statin. She was symptomatic at that time with myalgias, weakness, etc. It appears she was started on statin therapy in 2021 again, exact date uncertain. Her LE weakness began sometime within the last 6-9 months. Her CPK is 469 today. 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 Cont to HOLD statin. Sent HMG-CoA reductase inhibitor antibody which, if +, would suggest statin- induced myopathy. Aldolase level pending. Post-discharge would send to neurology and rheumatology for follow-up of this issue. MRI brain and MRI lumbar spine without findings to account for her LE weakness. (2) Lower extremity weakness: Plan: present for 9 months per her recollection; per daughter only 3+ months either way it is b/l legs, a little worse on right. she has difficulty climbing steps, moving her legs from the bed to the floor, etc. MRI lumbar spine with DJD and only mild spinal stenosis at a couple of levels; nothing on MRI to explain the severity of her weakness B12 level low-normal but likely not low enough to explain weakness; [id number] give PO replacement CPK mildly elevated - see #1 above. MRI brain without old (or new) CVA to account for symptoms. hip x-rays without mod-severe DJD contributing to "legs giving out" at minimum has deconditioning given chronicity of her complaints and her limited physical activity on day to day basis at home however, the elevated CPK may suggest the problem as noted in #1 above diabetic neuropathy could also be contributing to symptoms cont PT/OT will go to [facility] post-d/c post discharge would send to rheum and neurology for additional w/u as needed (3) Septicemia: Plan: 2nd to e.coli. source - urine, as urine cx with e.coli as well. CT a/p with left-sided kidney findings likely due to pyelonephritis; can't rule out a recently passed stone based on CT findings as well. Fortunately no obstructing kidney stone seen. Repeat blood cultures 11/12/22 cont to be negative to date. Initially on IV Zosyn --> then IV ceftriaxone since 11/11/22 --> now transitioning to cipro PO daily today. Will need total of 14 days of Rx from date of negative cultures (11/12/22). Thus, today is day #5 of abx. (4) Breath shortness: Plan: 2nd to volume overload/pulmonary edema resolved with serial, daily PD treatments appreciate nephrology assistance (5) Anemia due to chronic kidney disease: Plan: H/h low but stable cont to trend Peripheral smear report noted from today pathology advises the BCR/ABL ([place] Chromosome) to r/o CML due to chronic leukocytosis will order this before discharge (6) Yeast infection of the vagina: Plan: Completed clotrimazole vaginal suppositories x 7 days Received 1 dose of fluconazole 150 Mg p.o. x 1 on 11/09 improved - no recent complaints (7) Aortic stenosis: Plan: moderate to severe aortic stenosis on echo Follow as an outpatient with cardiology (8) Atrial fibrillation: Plan: Paroxysmal Again no runs overnight Continue Eliquis BID Continue metoprolol 50mg BID (9) CAD (coronary artery disease): Plan: With a history of RCA stent 09/2018, left circumflex stent 08/2010 Continue home apixaban, atorvastatin, Plavix, isosorbide, metoprolol Echocardiogram here without wall motion abnormalities, but with severe LVH, moderate-severe aortic stenosis Mildly elevated troponin likely due to myocardial demand ischemia rather than ACS (10) ESRD on peritoneal dialysis: Plan: Continue peritoneal dialysis with no daytime dwell as per nephrology due to patient preference Follow labs Continue Nephrocaps, calcitriol Appreciate nephrology assistance (11) Hyperlipidemia: Plan: HOLD STATIN as in #1 above (12) Hypertension: Plan: Continue metoprolol, isosorbide Holding home nifedipine due to her c/o LE edema which is quite bothersome to her (13) Type 2 diabetes mellitus: Plan: Cont Lantus and NovoLog Hemoglobin A1c 7.6% (14) Edema: Plan: Venous Dopplers negative on admission Likely due to volume overload from end-stage renal disease - continue PD Also on nifedipine which can cause peripheral edema - now on hold Albumin also low which will contribute (15) Abnormal LFTs: Plan: 2nd to statin? passive congestion from volume overload? 2nd to rocephin? other med? viral? liver on CT a/p without pathology serial LFTs cont to rise modestly I discussed this with patient and will repeat LFTs again in am (16) Leukocytosis: Plan: WBC count has been elevated chronically going back to 2019 peripheral smear by pathology noted today - see "anemia" above to date no smudge cells, etc on differential Plan DVT prophylaxis - Eliquis dispo - [facility] at d/c ...once CPK continues to improve and LFTs are improving Admission and Anticipated Discharge Date Admission Date: November 09, 2022 Subjective no issues overnight feeling ok we had a lengthy discussion about her elevated CPK and elevated LFTs tele wnl overnight Review of Systems Review of Systems: gen - no fevers or chills pulm - no cough or dyspnea GI - no abd pain CV - no chest pain, no orthopnea Physical Exam Physical Exam: gen - NAD, lying in bed comfortably neck - no JVD heart - RRR, s1 s2, 2/6 systolic murmur RUSB lungs - CTA b/l abd - soft NT ND BS+; PD catheter site clean/dry ext - 1+ edema right leg, none on left, pulses 2+ b/l psych - a/o x 3 Results & Data Results & Data ([facility]) Vital Signs (Past 12 Hours) Vital Signs Temp Pulse Pulse Pulse Resp BP Pulse Ox 11/16/22 18:34 36.5 C 67 16 130/74 11/16/22 16:17 36.8 C 66 16 125/73 95 11/16/22 15:39 61 11/16/22 11:33 36.5 C 56 L 20 119/71 99 11/16/22 08:16 36.6 C 60 20 150/77 H 95 O2 Del Method 11/16/22 18:34 11/16/22 16:17 Room Air 11/16/22 15:39 11/16/22 11:33 Room Air 11/16/22 08:16 Room Air Laboratory Results Laboratory Results - last 24 hr 11/15/22 11/16/22 11/16/22 20:17 06:10 06:10 WBC RBC Hgb Hct MCV MCH MCHC RDW Std Deviation RDW Coeff of Ekaterina Plt Count MPV Immature Gran % (Auto) Neut % (Auto) Lymph % (Auto) [place] % (Auto) Eos % (Auto) Baso % (Auto) Neut # (Auto) Lymph # (Auto) [place] # (Auto) Eos # (Auto) Baso # (Auto) Immature Gran # (Auto) Absolute Nucleated RBC Nucleated RBC % (auto) Peripher Smr Path Cons Sodium Potassium Chloride Carbon Dioxide Anion Gap BUN Creatinine Est Cr Clr Drug Dosing Est GFR ( Amer) Est GFR (Non-Af Amer) BUN/Creatinine Ratio Glucose POC Glucose 277 H Calcium Total Bilirubin AST ALT Alkaline Phosphatase Total Creatine Kinase Total Protein Albumin Globulin Albumin/Globulin Ratio Aldolase Pending Ref Lab Test Result Pending 11/16/22 11/16/22 11/16/22 06:10 06:10 06:10 WBC 21.06 H RBC 3.19 L Hgb 9.8 L Hct 29.6 L MCV 92.8 MCH 30.7 MCHC 33.1 RDW Std Deviation 51.6 H RDW Coeff of Ekaterina 15.7 H Plt Count 364 MPV 11.1 Immature Gran % (Auto) 4.1 Neut % (Auto) 73.8 Lymph % (Auto) 10.1 [place] % (Auto) 7.9 Eos % (Auto) 3.4 Baso % (Auto) 0.7 Neut # (Auto) 15.48 H Lymph # (Auto) 2.12 [place] # (Auto) 1.65 H Eos # (Auto) 0.71 H Baso # (Auto) 0.15 Immature Gran # (Auto) 0.86 H Absolute Nucleated RBC 0.25 H Nucleated RBC % (auto) 1.2 Peripher Smr Path Cons Cancelled Sodium 137 Potassium 3.3 L Chloride 96 L Carbon Dioxide 25 Anion Gap 16 H BUN 68 H Creatinine 8.54 H* D Est Cr Clr Drug Dosing 6.1 Est GFR ( Amer) 4.9 Est GFR (Non-Af Amer) 4.2 BUN/Creatinine Ratio 8.0 L Glucose 120 H POC Glucose Calcium 8.6 Total Bilirubin 0.3 AST 90 H ALT 112 H Alkaline Phosphatase 205 H Total Creatine Kinase 469 H Total Protein 7.0 Albumin 2.7 L Globulin 4.3 H Albumin/Globulin Ratio 0.6 L Aldolase Ref Lab Test Result 11/16/22 11/16/22 11/16/22 07:47 11:43 16:41 WBC RBC Hgb Hct MCV MCH MCHC RDW Std Deviation RDW Coeff of Ekaterina Plt Count MPV Immature Gran % (Auto) Neut % (Auto) Lymph % (Auto) [place] % (Auto) Eos % (Auto) Baso % (Auto) Neut # (Auto) Lymph # (Auto) [place] # (Auto) Eos # (Auto) Baso # (Auto) Immature Gran # (Auto) Absolute Nucleated RBC Nucleated RBC % (auto) Peripher Smr Path Cons Sodium Potassium Chloride Carbon Dioxide Anion Gap BUN Creatinine Est Cr Clr Drug Dosing Est GFR ( Amer) Est GFR (Non-Af Amer) BUN/Creatinine Ratio Glucose POC Glucose 148 H 183 H 211 H Calcium Total Bilirubin AST ALT Alkaline Phosphatase Total Creatine Kinase Total Protein Albumin Globulin Albumin/Globulin Ratio Aldolase Ref Lab Test Result PG Care Time/CCT Total # of Minutes Spent Total Time Spent with Patient: Total time spent is greater than 50% in coordination of care (as documented) at patient's floor/unit and/or counseling patient: Coding Level of Care Code 93438 SUB INP/OBS CARE 2/35MIN Diagnoses Elevated CPK R74.8 Lower extremity weakness R29.898 Septicemia A41.9 Breath shortness R06.02 Anemia due to chronic kidney disease N18.9; D63.1 Yeast infection of the vagina B37.31 Aortic stenosis I35.0 Atrial fibrillation I48.91 CAD (coronary artery disease) I25.10 Associated angina: without angina Coronary Disease-Associated Artery/Lesion type: [place] artery [place] vs. transplanted heart: [place] heart ESRD on peritoneal dialysis N18.6; Z99.2 Hyperlipidemia E78.5 Hyperlipidemia type: unspecified Hypertension I10 Hypertension type: essential hypertension Type 2 diabetes mellitus E11.9 Edema R60.9 Abnormal LFTs R79.89 Leukocytosis D72.829 (1) CAD (coronary artery disease) Associated angina: without angina Coronary Disease-Associated Artery/Lesion type: [place] artery [place] vs. transplanted heart: [place] heart Qualified Code(s): I25.10 - Atherosclerotic heart disease of [place] coronary artery without angina pectoris (2) Hyperlipidemia Hyperlipidemia type: unspecified Qualified Code(s): E78.5 - Hyperlipidemia, unspecified (3) Hypertension Hypertension type: essential hypertension Qualified Code(s): I10 - Essential (primary) hypertension
[2022-11-17 07:46] LABS: Hematocrit (blood only) 27.9 % (34.1-44.9); Hemoglobin 9.4 g/dl (12.0-16.0); Mean Corpuscular Hemoglobin 30.9 pg (25.0-34.0); Mean Corpuscular Hgb Conc 33.7 g/dL (32.0-36.0); Mean Corpuscular Volume 91.8 fL (80.0-100.0); Nucleated RBC # (auto) 0.19 K/uL (0-0); Platelet Count 356 K/uL (130-400); RDW Coefficient of Variation 15.5 % (11.5-14.5); RDW Standard Deviation 49.3 fL (36.4-46.3); Red Blood Count 3.04 M/uL (3.93-5.22); White Blood Count 19.93 K/ul (4.8-10.8)
[2022-11-17 08:43] LABS: Albumin Level 2.7 gm/dl (3.4-5.0); Bilirubin,Total 0.3 mg/dl (0.2-1.0); Calcium 8.7 mg/dl (8.5-10.1); Potassium 3.5 mmol/L (3.5-5.1)
[2022-11-17 08:50] LABS: Albumin Globulin Ratio 0.7 (0.9-2); BUN Creatinine Ratio 8.7 (10-20); Creatinine Clr Calc Pharmacy 5.9 ml/min; Est GFR (African American) 4.9 ml/min; Est GFR (Non-African American) 4.2 ml/min; Globulin 3.9 gm/dl (2.5-4.0); Total Protein 6.6 gm/dl (6.0-8.3)
[2022-11-17] MEDS: CLOPIDOGREL BISULFATE 75 MG TAB PO SCH (09:30)
[2022-11-17] MEDS: ADVANCED PROBIOTIC 1250 MG CAPSULE PO SCH (09:30)
[2022-11-17] MEDS: METOPROLOL TARTRATE 50 MG TAB PO SCH ×2 (09:30→21:18)
[2022-11-17] MEDS: allopurinoL 100 MG TAB PO SCH (09:30)
[2022-11-17] MEDS: CIPROFLOXACIN 500 MG TAB PO SCH (09:30)
[2022-11-17] MEDS: NEPHROCAPS PO SCH (09:30)
[2022-11-17] MEDS: CALCITRIOL 0.25 MCG CAPSULE PO SCH (09:30)
[2022-11-17] MEDS: APIXABAN 2.5 MG TAB PO SCH ×2 (09:30→21:18)
[2022-11-17] MEDS: ISOSORBIDE MONO EXTENDED REL 60 MG TABCR PO SCH (09:30)
[2022-11-17] MEDS: INSULIN LISPRO 100 UNITS/ML PEN SC SCH ×4 (09:33→21:19)
[2022-11-17] MEDS: LANTUS PER UNIT CHARGE SQ SCH ×2 (09:41→21:19)
--- NOTE | 2022-11-17 10:43 | Nephrology Progress Note ---
Date of Service November 17, 2022 Assessment & Plan (1) ESRD on peritoneal dialysis: (2) Bacteremia: (3) Anemia: (4) Hypertension: Plan 72yof with ESRD (on peritoneal dialysis), paroxysmal atrial fibrillation, HTN, HLD, CAD (s/p stent), IDDM2, HFpEF, aortic stenosis, anemia admitted with presents with a few-day history of SOB and LE edema, associated with nausea and vomiting found to have bacteremia. PD has been uneventful, no sign of peritonitis. Overall stable, PD has been uneventful. --continue current PD Rx with Delflex 2.5 alternate with 4.5, she has been having decent UF with the current prescription. --Epogen 93592 units x 1 dose given on 11/15/22 --dose meds for eGFR <10 --waiting on Rehab DC. Will follow Admission and Anticipated Discharge Date Admission Date: November 09, 2022 Ivis Piña was not seen physically as she was resting this morning during visit. labs and vital signs reviewed, blood pressure stable had decent dialysis overnight, acceptable ultrafiltration had 1500 ml. Had MRI brain for lower extremity weakness which was unremarkable. Results & Data ([facility]) Vital Signs (Past 12 Hours) Vital Signs Temp Pulse Pulse Pulse Resp BP Pulse Ox 11/17/22 08:00 36.6 C 62 18 11/17/22 08:48 36.6 C 62 17 119/74 96 11/17/22 03:22 36.5 C 59 L 18 107/67 96 11/16/22 23:27 36.6 C 72 16 143/77 H 93 O2 Del Method 11/17/22 08:00 11/17/22 08:48 Room Air 11/17/22 03:22 Room Air 11/16/22 23:27 Room Air PG Care Time/CCT Total # of Minutes Spent Total Time Spent with Patient: Total time spent is greater than 50% in coordination of care (as documented) at patient's floor/unit and/or counseling patient: Coding Level of Care Code 16712 SUB INP/OBS CARE 2/35MIN Diagnoses ESRD on peritoneal dialysis N18.6; Z99.2 Bacteremia R78.81 Anemia D64.9 Hypertension I10 Hypertension type: essential hypertension (1) Hypertension Hypertension type: essential hypertension Qualified Code(s): I10 - Essential (primary) hypertension
--- NOTE | 2022-11-17 17:03 | Ultrasound Report ---
US gallbladder CLINICAL HISTORY: abnl liver function tests TECHNIQUE: Multiple real-time sonographic images of the right upper quadrant were obtained. Comparison: None available at the time of this dictation. FINDINGS: The liver is diffusely homogenous with normal contour and echogenicity. No focal mass lesions are see n. No intrahepatic ductal dilatation is seen. No gallstones or sludge are identified within the g allbladder. The gallbladder wall is not thickened. There is no pericholecystic fluid present. A sonog raphic Hickman's sign was not elicited by the optical store manager. The common duct measures 0.4 cm in diamet er at the level of the hepatic artery. The visualized portions of the pancreas appear normal. Right kidney measures approximately 7.7 cm in length, the atrophic. No ascites or free fluid is seen in Iverson's pouch. IMPRESSION: No acute abnormalities are seen. The gallbladder is normal. ACT 112: Negative or not required by law. Electronically signed by: Jose Lacy M.D. 11/17/2022 5:01 PM
[2022-11-17] MEDS: ACETAMINOPHEN 325 MG TAB PO PRN (19:15)
[2022-11-17] MEDS ORDERED: MELATONIN 3 MG TAB PO PRN (20:28)
[2022-11-18 07:04] LABS: Albumin Level 2.6 gm/dl (3.4-5.0); Bilirubin,Total 0.2 mg/dl (0.2-1.0); Calcium 8.4 mg/dl (8.5-10.1); Potassium 3.7 mmol/L (3.5-5.1)
[2022-11-18 07:12] LABS: Albumin Globulin Ratio 0.7 (0.9-2); BUN Creatinine Ratio 9.8 (10-20); Creatinine Clr Calc Pharmacy 6.5 ml/min; Est GFR (African American) 5.3 ml/min; Est GFR (Non-African American) 4.6 ml/min; Globulin 3.7 gm/dl (2.5-4.0); Total Protein 6.3 gm/dl (6.0-8.3)
[2022-11-18] MEDS ORDERED: CYANOCOBALAMIN (B-12) 500 MCG TABLET PO SCH (09:00)
[2022-11-18] MEDS: INSULIN LISPRO 100 UNITS/ML PEN SC SCH ×2 (09:08→13:02)
[2022-11-18] MEDS: METOPROLOL TARTRATE 50 MG TAB PO SCH (09:10)
[2022-11-18] MEDS: CALCITRIOL 0.25 MCG CAPSULE PO SCH (09:10)
[2022-11-18] MEDS: CIPROFLOXACIN 500 MG TAB PO SCH (09:10)
[2022-11-18] MEDS: allopurinoL 100 MG TAB PO SCH (09:10)
[2022-11-18] MEDS: ADVANCED PROBIOTIC 1250 MG CAPSULE PO SCH (09:10)
[2022-11-18] MEDS: APIXABAN 2.5 MG TAB PO SCH (09:10)
[2022-11-18] MEDS: ISOSORBIDE MONO EXTENDED REL 60 MG TABCR PO SCH (09:10)
[2022-11-18] MEDS: NEPHROCAPS PO SCH (09:10)
[2022-11-18] MEDS: CLOPIDOGREL BISULFATE 75 MG TAB PO SCH (09:10)
[2022-11-18] MEDS: LANTUS PER UNIT CHARGE SQ SCH (09:13)
[2022-11-18] MEDS: ACETAMINOPHEN 325 MG TAB PO PRN (09:14)
--- NOTE | 2022-11-18 09:22 | Hospitalist Progress Note ---
Date of Service November 17, 2022 Assessment & Plan (1) Elevated CPK: Plan: In 10/2019 the patient had rhabdomyolysis / elevated CPK and at that time it was thought to be statin induced. CPK normalized OFF the statin. She was symptomatic at that time with myalgias, weakness, etc. It appears she was started on statin therapy in 2021 again, exact date uncertain. Her LE weakness began sometime within the last 6-9 months. Her CPK today is 293, down from peak of 469 yesterday. 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 Cont to HOLD statin. Sent HMG-CoA reductase inhibitor antibody which, if +, would suggest statin- induced myopathy. Stent Aldolase level. Post-discharge would send to neurology and rheumatology for follow-up of this issue. MRI brain and MRI lumbar spine without findings to account for her LE weakness. (2) Lower extremity weakness: Plan: present for 9 months per her recollection; per daughter only 3+ months either way it is b/l legs, a little worse on right. she has difficulty climbing steps, moving her legs from the bed to the floor, etc. MRI lumbar spine with DJD and only mild spinal stenosis at a couple of levels; nothing on MRI to explain the severity of her weakness B12 level low-normal but likely not low enough to explain weakness; [id number] give PO replacement CPK mildly elevated - see #1 above. MRI brain without old (or new) CVA to account for symptoms. hip x-rays without mod-severe DJD contributing to "legs giving out" at minimum has deconditioning given chronicity of her complaints and her limited physical activity on day to day basis at home however, the elevated CPK may suggest the problem as noted in #1 above diabetic neuropathy could also be contributing to symptoms cont PT/OT will go to [facility] post-d/c - tomorrow if LFTs and CPK cont to improve and RUQ u/s is wnl? post discharge would send to rheum and neurology for additional w/u as needed (3) Septicemia: Plan: 2nd to e.coli. source - urine, as urine cx with e.coli as well. CT a/p with left-sided kidney findings likely due to pyelonephritis; can't rule out a recently passed stone based on CT findings as well. Fortunately no obstructing kidney stone seen. Repeat blood cultures 11/12/22 cont to be negative to date. Initially on IV Zosyn --> then IV ceftriaxone since 11/11/22 --> day #2 of cipro PO daily. Will need total of 14 days of Rx from date of negative cultures (11/12/22). Thus, today is day #6 of abx. (4) Breath shortness: Plan: resolved 2nd to volume overload/pulmonary edema resolved with serial, daily PD treatments appreciate nephrology assistance (5) Anemia due to chronic kidney disease: Plan: H/h stable cont to trend Peripheral smear report noted from 11/17/22 pathology advises the BCR/ABL (Wolbach Chromosome) to r/o CML due to chronic leukocytosis will order this w/ tomorrow's labs (6) Yeast infection of the vagina: Plan: Completed clotrimazole vaginal suppositories x 7 days Received 1 dose of fluconazole 150 Mg p.o. x 1 on 11/09 (7) Aortic stenosis: Plan: moderate to severe aortic stenosis on echo Follow as an outpatient with cardiology (8) Atrial fibrillation: Plan: Paroxysmal Continue Eliquis BID Continue metoprolol 50mg BID (9) CAD (coronary artery disease): Plan: With a history of RCA stent 09/2018, left circumflex stent 08/2010 Continue home apixaban, atorvastatin, Plavix, isosorbide, metoprolol Echocardiogram here without wall motion abnormalities, but with severe LVH, moderate-severe aortic stenosis Mildly elevated troponin likely due to myocardial demand ischemia rather than ACS (10) ESRD on peritoneal dialysis: Plan: Continue peritoneal dialysis nightly Follow labs Continue Nephrocaps, calcitriol Appreciate nephrology assistance (11) Hyperlipidemia: Plan: HOLD STATIN as in #1 above (12) Hypertension: Plan: Continue metoprolol, isosorbide Holding home nifedipine - will not resume at d/c (13) Type 2 diabetes mellitus: Plan: Cont Lantus and NovoLog - adjust latter Hemoglobin A1c 7.6% (14) Edema: Plan: Venous Dopplers negative on admission Likely due to volume overload from end-stage renal disease - continue PD Also on nifedipine which can cause peripheral edema - now on hold Albumin also low which will contribute (15) Abnormal LFTs: Plan: 2nd to statin? passive congestion from volume overload? 2nd to rocephin? other med? viral? liver on CT a/p without pathology serial LFTs cont to rise modestly will obtain RUQ u/s to check liver/GB repeat LFTs am cont to hold statin (16) Leukocytosis: Plan: WBC count has been elevated chronically going back to 2019 peripheral smear by pathology noted will send BCR/ABL tomorrow am to date no smudge cells, etc on differential Plan DVT prophylaxis - Eliquis dispo - [facility] at d/c - will not need insurance auth tomorrow for d/c? Admission and Anticipated Discharge Date Admission Date: November 09, 2022 Subjective slept poorly overnight feeling tired today legs feel about the same or slightly better eating ok no dyspnea we discussed getting a RUQ u/s to look at liver/GB due to rising LFTs - she is agreeable tele overnight wnl Review of Systems Review of Systems: gen - no fevers; just tired/fatigued cv - no cp, no orthopnea; RLE edema improving pulm - no dyspnea GI - no RUQ abd pain or post-prandial pain/nausea Physical Exam Physical Exam: gen - NAD, lying in bed comfortably neck - no JVD mouth - MMM heart - RRR, s1 s2, 2/6 systolic murmur RUSB lungs - CTA b/l abd - soft NT ND BS+; PD catheter site clean/dry ext - <1+ edema right leg, none on left, pulses 2+ b/l psych - a/o x 3 Results & Data Results & Data ([facility]) Vital Signs (Past 12 Hours) Vital Signs Temp Pulse Pulse Pulse Pulse Resp BP 11/17/22 18:27 67 11/17/22 17:15 36.5 C 63 18 131/68 11/17/22 15:56 36.3 C L 59 L 18 121/72 11/17/22 11:30 36.6 C 68 16 111/55 L Pulse Ox O2 Del Method 11/17/22 15:56 97 Room Air 11/17/22 11:30 97 Room Air Laboratory Results CPK 293 LFTs noted (mildly worse today) PG Care Time/CCT Total # of Minutes Spent Total Time Spent with Patient: Total time spent is greater than 50% in coordination of care (as documented) at patient's floor/unit and/or counseling patient: Coding Level of Care Code 15473 SUB INP/OBS CARE 2/35MIN Diagnoses Elevated CPK R74.8 Lower extremity weakness R29.898 Septicemia A41.9 Breath shortness R06.02 Anemia due to chronic kidney disease N18.9; D63.1 Yeast infection of the vagina B37.31 Aortic stenosis I35.0 Atrial fibrillation I48.91 CAD (coronary artery disease) I25.10 Coronary Disease-Associated Artery/Lesion type: [place] artery [place] vs. transplanted heart: [place] heart Associated angina: without angina ESRD on peritoneal dialysis N18.6; Z99.2 Hyperlipidemia E78.5 Hyperlipidemia type: unspecified Hypertension I10 Hypertension type: essential hypertension Type 2 diabetes mellitus E11.9 Edema R60.9 Abnormal LFTs R79.89 Leukocytosis D72.829 (1) CAD (coronary artery disease) Coronary Disease-Associated Artery/Lesion type: [place] artery [place] vs. transplanted heart: [place] heart Associated angina: without angina Qualified Code(s): I25.10 - Atherosclerotic heart disease of [place] coronary artery without angina pectoris (2) Hyperlipidemia Hyperlipidemia type: unspecified Qualified Code(s): E78.5 - Hyperlipidemia, unspecified (3) Hypertension Hypertension type: essential hypertension Qualified Code(s): I10 - Essential (primary) hypertension
--- NOTE | 2022-11-18 10:43 | Nephrology Progress Note ---
Date of Service November 18, 2022 Assessment & Plan (1) ESRD on peritoneal dialysis: (2) Bacteremia: (3) Anemia: (4) Hypertension: Plan 72yof with ESRD (on peritoneal dialysis), paroxysmal atrial fibrillation, HTN, HLD, CAD (s/p stent), IDDM2, HFpEF, aortic stenosis, anemia admitted with presents with a few-day history of SOB and LE edema, associated with nausea and vomiting found to have bacteremia. PD has been uneventful, no sign of peritonitis. Overall stable, PD has been uneventful. Waiting on Rehab DC. --continue current PD Rx with Delflex 2.5 alternate with 4.5, she has been having decent UF with the current prescription. --Epogen 72058 units x 1 dose given on 11/15/22 --dose meds for eGFR <10 Will follow Admission and Anticipated Discharge Date Admission Date: November 09, 2022 Ivis Piña was seen and evaluate this am. labs and vital signs reviewed, blood pressure stable had decent dialysis overnight, acceptable ultrafiltration. Denies any concerns. Review of Systems Review of Systems: Detail ROS was unremarkable. Physical Exam Constitutional: WD/WN, vitals as above no acute distress Eyes: + anicteric sclerae ENMT: Ears: no hearing impairment Neck: normal visual inspection Respiratory: normal respiratory effort; no respiratory distress Auscultation: lungs clear to auscultation bilaterally Cardiovascular: Rate/Rhythm: regular rate and regular rhythm Heart Sounds: normal S1 and normal S2 Extremities: + edema (slight rt LE edema) Skin: no rashes Neurologic: no focal motor deficits and not confused Psychiatric: Orientation: alert and oriented x 3 Results & Data ([facility] [place]) Vital Signs (Past 12 Hours) Vital Signs Temp Pulse Pulse Pulse Pulse Resp BP 11/18/22 08:03 58 L 11/18/22 07:45 36.5 C 60 18 11/18/22 07:45 36.5 C 69 17 109/68 11/18/22 02:51 36.4 C L 61 20 110/57 L Pulse Ox O2 Del Method 11/18/22 08:03 11/18/22 07:45 11/18/22 07:45 95 Room Air 11/18/22 02:51 95 Room Air PG Care Time/CCT Total # of Minutes Spent Total Time Spent with Patient: Total time spent is greater than 50% in coordination of care (as documented) at patient's floor/unit and/or counseling patient: Coding Level of Care Code 76210 SUB INP/OBS CARE MIN Diagnoses ESRD on peritoneal dialysis N18.6; Z99.2 Bacteremia R78.81 Anemia D64.9 Hypertension I10 Hypertension type: essential hypertension (1) Hypertension Hypertension type: essential hypertension Qualified Code(s): I10 - Essential (primary) hypertension
--- NOTE | 2022-11-18 13:46 | Discharge Summary ---
Date of Service November 18, 2022 Admission HPI Per Admitting Provider 72yo female with a history of ESRD (on peritoneal dialysis), paroxysmal atrial fibrillation, HTN, HLD, CAD (s/p stent), IDDM2, HFpEF, aortic stenosis, anemia of chronic disease, and gout presents with a few-day history of SOB and LE edema. Symptoms started gradually. Patient notes associated nausea and vomiting about once per day over the past three days. Patient is still making a small amount of urine. Patient denies fever, chills, vision changes, CP, abdominal pain, hematochezia, melena, lightheadedness, dizziness, numbness, tingling, or other symptoms. Denies recent illness and recent travel. Upon arrival, vitals were notable for elevated BP (180-220s/80s); no tachycardia, no tachypnea, patient afebrile, spO2 adequate on 4L NC. Initial labs were notable for leukocytosis (18.4), anemia (8.3), mild hyponatremia (132), AG (17), elevated creatinine (8.2 - baseline ~5-6), elevated alkphos (149), and elevated hsTroponin (413); platelets wnl, Tbili not elevated. EKG: NSR, LVH, no overt ischemic change Surrogate decision-maker in case of an emergency: virginie Mcnulty (cell: [phone]) Principal Diagnosis 1. pulmonary edema due to ESRD 2. e.coli septicemia/bacteremia 3. UTI with left-sided pyelonephritis 4. chronic lower extremity weakness with elevated CPK - myopathy? 5. ESRD on peritoneal dialysis Discharge Exam gen - NAD, lying in bed comfortably neck - no JVD mouth - MMM heart - RRR, s1 s2, 2/6 systolic murmur RUSB lungs - CTA b/l abd - soft NT ND BS+; PD catheter site clean/dry ext - <1+ edema right leg, none on left, pulses 2+ b/l psych - a/o x 3 neuro - strength of b/l arms 5/5; b/l hip flexion about 4/5; distal strength, dorsiflexion/plantarflexion of ankles - 5/5 b/l Discharge Data Allergies Allergy/AdvReac Type Severity Reaction Status Date / Time heparin Allergy Intermediate Hives Verified 07/26/22 11:31 insulin aspart Allergy Intermediate Hives Verified 07/26/22 11:31 [From Novolog U-100 Insulin aspart] meperidine AdvReac Intermediate hallucinate Verified 07/26/22 11:31 s lisinopril AdvReac Mild COUGHING Verified 07/26/22 11:31 Consultations [facility] Nephrology [facility] Cardiology PT, OT Procedures Performed Echocardiogram - * EF 60-65% * severe LVH * no wall motion abnormalities * moderate to borderline severe aortic stenosis * mild to moderate mitral regurgitation Peripheral smear by pathology due to chronic Leukocytosis Nightly peritoneal dialysis Ordered Studies Chest X-Ray 11/08/22 22:52 XR chest 1V portable CLINICAL HISTORY: Chest pain, nonspecific COMPARISON STUDY: Chest radiograph July 11, 2022. FINDINGS: There is no pneumothorax. Cardiomegaly is unchanged. Blunting of left costophrenic angle is likely due to epicardial fat pad or a trace left pleural effusion. There is no consolidation to suggest pneumonia. There is no evidence for overt pulmonary edema. IMPRESSION: No acute cardiopulmonary findings. Cardiomegaly. ACT 112: Negative or not required by law. Electronically signed by: Fransico Headley M.D. 11/09/2022 6:47 AM Venous Doppler Study 11/09/22 10:50 BILATERAL LOWER EXTREMITY VENOUS DOPPLER HISTORY: Acute pain and swelling of the lower legs. History of DVT involving the left peroneal vein. RLE swelling, assess for DVT COMPARISON STUDY: 06/24/2021 FINDINGS: There is normal flow, and augmentation within the bilateral lower extremity deep venous systems. Study is limited secondary to patient unable to tolerate compression of some of the deep venous structures. IMPRESSION: No DVT identified within the right or left lower extremity. ACT 112: Negative or not required by law. Electronically signed by: Isac Fernandez M.D. 11/09/2022 2:44 PM Abdomen/Pelvis CT 11/13/22 08:[address] WITHOUT CONTRAST CT DOSE: 872.81 mGycm HISTORY: Acute urinary tract infection with bacteremia E. coli UTI/bacteremia,assess for stone TECHNIQUE: Multiaxial CT images of the abdomen and pelvis were performed without contrast. A dose lowering technique was utilized adhering to the principles of ALARA. COMPARISON STUDY: CT abdomen pelvis 12/25/2021 FINDINGS: Cardiomegaly. Extensive coronary artery and aortic calcifications. Mild intralobular and bronchial wall thickening. Moderate amount of pneumoperitoneum. Unremarkable unenhanced spleen. Mildly atrophic pancreas. Adrenal gland thickening suggestive of hyperplasia. Unremarkable gallbladder. 6 cm hypodense focus of the right hepatic lobe on image 18 series 2 is too small to characterize, likely a cyst. There is at least mild atrophy of the kidneys with bilateral renal vascular calcifications. 4.[address] of the inferior pole right kidney. 1.9 cm cyst of the superior pole left kidney. Mild to moderate left-sided hydroureteronephrosis with perinephric and periureteral stranding. Mild urothelial thickening of the left renal pelvis and collecting system. Possible punctate left renal calculi. No obstructing stone or lesion identified. Decompressed or bladder with air in the bladder lumen. Unremarkable uterus and adnexa. No bowel obstruction. Moderate colonic diverticulosis. Scattered large and small bowel air-fluid levels. The appendix appears noninflamed. Trace pelvic ascites. A peritoneal dialysis catheter is coiled within the mid pelvis. Small fat filled umbilical hernia. Degenerative changes of the spine, pelvis and hips. IMPRESSION: 1. No bowel obstruction or bowel wall thickening. Normal appendix. 2. Moderate amount of pneumoperitoneum within the abdomen and pelvis. This finding may be secondary to the patient's indwelling peritoneal dialysis catheter. A perforated viscus may also be considered. Correlate with interventional/operative history. 3. Colonic diverticulosis without acute diverticulitis. 4. Mild left-sided hydroureteronephrosis without obstructing stone or lesion identified. Additionally, there is perinephric and perirenal stranding with urothelial thickening. Correlate with urinalysis to exclude recently passed calculus versus ascending infection. 5. Trace pelvic ascites. 6. Cardiomegaly with questioned mild pulmonary edema. 7. Additional findings as above. ACT 112: Negative or not required by law. The above report was generated using voice recognition software. It may contain grammatical, syntax or spelling errors. Electronically signed by: Isac Fernandez M.D. 11/13/2022 1:40 PM Lumbar Spine MRI 11/14/22 00:00 MR lumbar spine wo con CLINICAL HISTORY: 72 years-old Female with b/l leg weakness. Chronic low back pain with lower extremity weakness. COMPARISON: CT abdomen and pelvis 11/13/2022 TECHNIQUE: Multiplanar, multi sequence MRI of the lumbar spine was performed without intravenous contrast. FINDINGS: Motion degraded exam. Conus medullaris terminates at the L1 level. No acute fracture, subluxation, significant marrow edema or marrow replacing process. Bilateral renal cysts are redemonstrated. Left-sided hydroureteronephrosis is again noted. No paravertebral edema. Mild to moderate intervertebral disc space narrowing with mild spondylitic spurring and moderate to severe facet arthrosis. Mild Modic type I and II endplate degeneration at the L2-L3 level. T12-L1: Mild spondylitic spurring with moderate facet arthrosis. No central canal or neural foraminal narrowing. L1-L2: Mild to moderate intervertebral disc space narrowing and spondylitic spurring with small circumferential annular disc bulge. Ligamentum flavum thickening with moderate facet arthrosis. No central canal or neural foraminal narrowing. L2-L3: Moderate to severe intervertebral disc space narrowing with spondylitic spurring and small circumferential annular disc bulge. Ligamentum flavum thickening with moderate facet arthrosis. Mild central canal stenosis, AP dimension of the thecal sac measuring approximately 9.5 mm. Mild narrowing of the lateral recesses. Mild to moderate right with mild left neural foraminal narrowing. L3-L4: Mild spondylitic spurring. Ligamentum flavum thickening with moderate facet arthrosis. The central canal is patent. Mild right with [id number] left neural foraminal narrowing. L4-L5: Mild spondylitic spurring. Ligamentum flavum thickening with severe facet arthrosis. Mild central canal stenosis, AP dimension of the thecal sac measuring 9 mm. Moderate left with mild to moderate right neural foraminal narrowing. L5-S1: Mild to moderate intervertebral disc space narrowing with spondylitic spurring, small posterior annular disc bulge with central disc protrusion. Ligamentum flavum thickening with moderate facet arthrosis. The central canal is patent. Mild right with [id number] left neural foraminal narrowing. IMPRESSION: 1. No acute fracture. 2. Discogenic degeneration with facet arthrosis as detailed level by level above. No high-grade central canal or neural foraminal narrowing. ACT 112: Negative or not required by law. The above report was generated using voice recognition software. It may contain grammatical, syntax or spelling errors. Dictated: 11/14/2022 1:09 PM Transcribed: 11/14/2022 1:28 PM Meg [id number] VALERIA_Royce Electronically signed by: Isac Fernandez M.D. 11/14/2022 1:49 PM Hip X-Ray 11/14/22 17:46 XR hip LT min 2V, XR hip RT min 2V CLINICAL HISTORY: difficulty walking; assess for OA. Bilateral hip pain. COMPARISON STUDY: Left hip 07/05/2014. FINDINGS: No fracture or dislocation within the right or left hip. Mild vascular calcifications are noted. The visualized pelvic bones are intact. Mild osteoarthritis within the left hip demonstrated by mild cartilage space narrowing and small marginal osteophytes. There is a partially visualized catheter within the pelvis. IMPRESSION: 1. No fractures identified within the right or left hip. 2. Mild osteoarthritis within the left hip, unchanged. ACT 112: Negative or not required by law. Electronically signed by: Donovan Mendez M.D. 11/14/2022 7:46 PM Hip X-Ray 11/14/22 17:46 XR hip LT min 2V, XR hip RT min 2V CLINICAL HISTORY: difficulty walking; assess for OA. Bilateral hip pain. COMPARISON STUDY: Left hip 07/05/2014. FINDINGS: No fracture or dislocation within the right or left hip. Mild vascular calcifications are noted. The visualized pelvic bones are intact. Mild osteoarthritis within the left hip demonstrated by mild cartilage space narrowing and small marginal osteophytes. There is a partially visualized catheter within the pelvis. IMPRESSION: 1. No fractures identified within the right or left hip. 2. Mild osteoarthritis within the left hip, unchanged. ACT 112: Negative or not required by law. Electronically signed by: Donovan Mendez M.D. 11/14/2022 7:46 PM Brain MRI 11/15/22 07:30 MR brain wo con HISTORY: 72 years-old Female b/l leg weaknes, RLE>LLE acute weakness COMPARISON: Brain MRI 07/31/2010 TECHNIQUE: Multiplanar multisequence MRI of the brain was obtained without the use of IV contrast FINDINGS: No restricted diffusion. Degenerative changes of the imaged cervical spine. The study is motion degraded. Partially empty sella. No pathologic blooming artifact. Motion degraded exam. No acute intracranial hemorrhage, midline shift, abnormal extra axial collection, hydrocephalus or intracranial mass identified. Mild involutional changes. Mild to moderate T2/FLAIR hyperintense foci throughout the white matter, progressed from the prior study. Cerebral venous sinuses and major arterial flow voids appear patent. The skull, orbits and soft tissues are unremarkable. Trace right mastoid effusion. Left mastoid air cells and paranasal sinuses are generally clear. IMPRESSION: 1. No acute intracranial abnormality. No acute or subacute infarct. 2. Involutional changes with chronic microvascular ischemic disease. ACT 112: Negative or not required by law. The above report was generated using voice recognition software. It may contain grammatical, syntax or spelling errors. Electronically signed by: Isac Fernandez M.D. 11/15/2022 11:20 AM Gallbladder Ultrasound 11/17/22 14:27 US gallbladder CLINICAL HISTORY: abnl liver function tests TECHNIQUE: Multiple real-time sonographic images of the right upper quadrant were obtained. Comparison: None available at the time of this dictation. FINDINGS: The liver is diffusely homogenous with normal contour and echogenicity. No focal mass lesions are seen. No intrahepatic ductal dilatation is seen. No gallstones or sludge are identified within the gallbladder. The gallbladder wall is not thickened. There is no pericholecystic fluid present. A sonographic Hickman's sign was not elicited by the aeronautical engineering officer. The common duct measures 0.4 cm in diameter at the level of the hepatic artery. The visualized portions of the pancreas appear normal. Right kidney measures approximately 7.7 cm in length, the atrophic. No ascites or free fluid is seen in Iverson's pouch. IMPRESSION: No acute abnormalities are seen. The gallbladder is normal. ACT 112: Negative or not required by law. Electronically signed by: Jose Lacy M.D. 11/17/2022 5:01 PM Hospital Course (1) Septicemia: 2nd to e.coli. source - urine, as urine cx with e.coli as well. CT a/p with left-sided kidney findings likely due to pyelonephritis; can't rule out a recently passed stone based on CT findings as well but much less likely. Fortunately no obstructing kidney stone seen. Repeat blood cultures 11/12/22 negative. Initially on IV Zosyn --> then IV ceftriaxone starting 11/11/22 --> then transitioned to cipro PO daily. Will need total of 14 days of Rx from date of negative cultures (11/12/22). Thus, she completed 7 days of IV/PO antibiotics there, then will complete 7 days of PO cipro while at rehab. (2) Pyelonephritis of left kidney: UTI/pyelonephritis with septicemia - 2nd to e.coli. Resolving. Rx - 14 days of IV/PO antibiotic therapy, first day of Rx beginning 11/12/22. (3) Acute noncardiogenic pulmonary edema: This was the cause of her shortness of breath. The pulmonary edema was due to ESRD status. Her pulmonary edema and O2 requirement resolved with serial PD treatments as managed by [facility] Nephrology. (4) Breath shortness: resolved 2nd to #3 above (5) Elevated CPK: In 10/2019 the patient had rhabdomyolysis / elevated CPK and at that time it was thought to be statin induced. CPK normalized OFF the statin. She was symptomatic at that time with myalgias, weakness, etc. It appears she was started on statin therapy in 2021 again, exact date uncertain. Her LE weakness began sometime within the last 6-9 months. Her LE weakness is due to proximal muscle weakness of the hips. Her CPK peaked at 469. The level dropped to 236 prior to discharge while OFF her statin agent. Her LFTs were also elevated during this hospital stay. Uncertain if some of the high LFTs were due to the mild elevation in CPK. She could have a statin-induced myopathy which may explain #6 below. Cont to HOLD statin. Sent HMG-CoA reductase inhibitor antibody which, if +, would suggest statin- induced myopathy. Sent Aldolase level. Both labs were pending at discharge. Post-discharge would recommend sending to neurology and rheumatology for follow- up of this issue. Of Note -- MRI brain and MRI lumbar spine without findings to account for her LE weakness. (6) Lower extremity weakness: present for 9 months per the patient's recollection; per daughter only 3+ months. either way it is b/l legs, a little worse on right. she has difficulty climbing steps, moving her legs from the bed to the floor, etc. MRI lumbar spine with DJD and only mild spinal stenosis at a couple of levels; nothing on MRI to explain the severity of her weakness. B12 level low-normal but likely not low enough to explain weakness; [id number] giving PO replacement. CPK mildly elevated - see #1 above. MRI brain without old (or new) CVA to account for symptoms. hip x-rays without mod-severe DJD contributing to "legs giving out" at minimum has deconditioning given chronicity of her complaints and her limited physical activity on day to day basis at home. however, the elevated CPK may suggest the problem as noted in #5 above. diabetic neuropathy could also be contributing to symptoms. cont PT/OT will go to [facility] post-d/c. post discharge would send to rheumatology and neurology for additional work-up as mentioned in #5 above. (7) Anemia due to chronic kidney disease: Hemoglobin ranged 8-10 during the visit. Peripheral smear report noted from 11/17/22. Pathology advises the BCR/ABL ([place] [facility]) to r/o CML due to chronic leukocytosis. This was dispatched and was pending at time of discharge. Recommend f/u with hematology at the [facility]. (8) Yeast infection of the vagina: Completed clotrimazole vaginal suppositories x 7 days Received 1 dose of fluconazole 150 Mg p.o. x 1 on 11/09 Resolved (9) Aortic stenosis: moderate to severe aortic stenosis on echo Follow as an outpatient with cardiology (10) Atrial fibrillation: Paroxysmal Continue Eliquis BID Continue metoprolol 50mg BID (11) CAD (coronary artery disease): With a history of RCA stent 09/2018, left circumflex stent 08/2010 Continue home apixaban, atorvastatin, Plavix, isosorbide, metoprolol Echocardiogram here without wall motion abnormalities, but with severe LVH, moderate-severe aortic stenosis Mildly elevated troponin likely due to myocardial demand ischemia rather than ACS (12) ESRD on peritoneal dialysis: Continue peritoneal dialysis nightly Managed by [facility] Nephrology while here Continue Nephrocaps, calcitriol (13) Hyperlipidemia: HOLD STATIN as stated in #5 above (14) Hypertension: Continue metoprolol, isosorbide Holding home nifedipine - will not resume at d/c - due to concerns it may have contributed to LE edema (15) Type 2 diabetes mellitus: Cont Lantus and Humalog Hemoglobin A1c 7.6% (16) Edema: Venous Dopplers negative for DVT Likely due to volume overload from end-stage renal disease - continue Peritoneal Dialysis nightly Also on nifedipine which can cause peripheral edema - now on hold Albumin also low which will contribute Improved with daily PD treatments while here (17) Abnormal LFTs: 2nd to statin? 2nd to rocephin? other medication? passive congestion from recent volume overload? mildly increased CPK/rhabdomyoslysis? viral? liver on CT a/p without pathology RUQ u/s without liver pathology or gall bladder pathology LFTs peaked then began to fall continue to hold statin at discharge repeat CPK and LFTs within 3-5 days of discharge to ensure stability (18) Leukocytosis: WBC count has been elevated chronically going back to 2019 peripheral smear by pathology recommended to send BCR/ABL testing this was dispatched and pending at discharge to date no smudge cells, etc on differential advise f/u with hematology post-discharge for this chronic issue of note - WBC count ranged 16 to 24 while here (19) Abnormal abdominal CT scan: The patient's CT abd/pelvis showed a moderate amount of pneumoperitoneum within the abdomen and pelvis. She never had signs of peritonitis during the visit, no abdominal pain, and peritoneal fluid was negative for SBP. This finding was likely due to the presence of her chronic PD catheter for peritoneal dialysis rather than perforated viscus, etc. Plan transferring to [facility] at discharge Total Time Total Time Spent Total Time Spent (In Minutes): 45 Discharge Plan Discharge Items Patient Disposition: Transfer Acute Care Hospital Reason For Visit: Shortness of breath Discharge Diagnosis: 1. Shortness of breath - due to pulmonary edema of the lungs from end-stage re nal disease 2. Bacteremia due to E.coli UTI/left-sided pyelonephritis 3. Chronic leukocytosis - follow-up with hematology/oncology needed 4. Elevated CPK level - due to lipitor use? 5. Chronic leg weakness bilaterally - due to #4? - follow-up needed with rheumatology and neurology via [facility] 6. h/o atrial fibrillation 7. End-stage renal disease on peritoneal dialysis 8. Aortic Stenosis - cardiology follow-up needed 9. Right leg edema - no evidence of DVT blood clot 10. Type 2 diabetes 11. Coronary Artery Disease 12. Abnormal liver function tests - resolving - due to lipitor? due to rocephin? Activity: Resume your previous activity Non-emergency contact: Primary Care Provider, Specialist and Studio Designer Call non-emergency contact if: you have any medication questions and your symptoms worsen Follow-up/Referrals: Alverto Shine MD [Physician] - (2-3 weeks - bilateral lower extremity weakness - myopathy due to statins? other?) Danny Sandoval DO [Physician] - (1 week - ESRD on PD) Elizabeth Schreiber MD [Primary Care Provider] - 11/26/22 10:00 am (see Dr Schreiber after discharge from [facility] ) Natalie Gomez PA-C [Physician Steeplech[employer] Jockey] - (3-4 weeks ) Perico Blackwell DO [Physician] - (2-3 weeks - bilateral lower extremity weakness - due to myopathy from statins?) Diet: Carb Consistent or DM2 and Dialysis Renal Fluids: 1500ml (6 cups) Addtl Attending Provider Instructions: Mrs Mcnulty - You were hospitalized for shortness of breath. This was due to fluid build-up in the lungs as a result of your end-stage renal disease. The [facility] Nephrology team made adjustments to your peritoneal dialysis and your breathing improved nicely. We also found evidence of blood stream infection due to e.coli. This was due to a urinary tract infection as well as left-sided kidney i nfection. Your blood stream infection has resolved as repeat cultures later in the stay were negative (the blood is sterile again). Cultures from your peritoneal fluid were negative - that is, there was no infection of the fluid in your abdomen from the dialysis process. You received IV then oral antibiotics throughout your entire stay. You have 1 week left of antibiotics to take. In addition to the above you complained of several months of bilateral leg weakness. The weakness is coming from the muscles around both hips. Your muscle test in the blood was elevated (this test is called "CPK"). This may be due to use of statin drugs (lipitor). You had a similar problem with another statin drug in 2019. The CPK level improved after we stopped the lipitor. Over the next few weeks it will be VERY IMPORTANT to follow-up with both [facility] Neurology and [facility] Rheumatology to determine if indeed your weakness is from the statin drug or from some other condition. We checked an MRI brain - this was normal. We checked a lumbar spine MRI - this showed considerable arthritis, but the spinal canal was open and the spinal cord was not being compromised. Due to your prior gastric ulcers/erosions in 2020 on upper endoscopy, and the use of plavix with Eliquis, I would suggest going back to taking pantoprazole 40mg once daily every morning. Finally, for several years, your white blood cell count has been elevated. I would recommend consultation with a software project manager for this in the near-future. A blood test for this issue is currently pending. Follow-up - see separate section Recommendations for [facility] - 1. Check BSGs ac/hs 2. CBC, BMP, LFTs, and CPK in 3 days for stability 3. Repeat urine culture at conclusion of ciprofloxacin course to ensure the urinary tract infection has fully resolved Pending Studies at Discharge: Yes Studies:: BCR/ABL blood test for chronic leukocytosis; Aldolase and [id number] Inhibitor antibody (work-up for elevated CPK/myopathy) Stand-Alone Forms: My [facility] Skilled Items Patient informed of condition?: Yes DNR: No Discharge Level of Care: Acute rehab Communicable Disease: No Discharge Prognosis: Stable Lines: None Urinary Catheter: No Medications and DC Order Prescriptions: New melatonin 3 mg Tablet 3 mg PO HS PRN (Reason: sleep) Qty: 30 0RF cyanocobalamin (vitamin B-12) 500 mcg Tablet 1,000 mcg PO QAM Qty: 60 0RF insulin lispro [Humalog KwikPen Insulin] 100 unit/mL Insulin Pen 1 sliding scale dose SC ACHS Qty: 1 0RF Rx Instructions: --Goal BSG Range: Low 120mg/dL, High 160mg/dL --Correction Factor: 15 mg/dL/unit --Carbohydrate ratio = 5 g/unit pantoprazole [Protonix] 40 mg tablet,delayed release (DR/EC) 40 mg PO QAM Qty: 30 0RF Continued isosorbide mononitrate 60 mg tablet extended release 24 hr 60 mg PO QAM Qty: 90 3RF dicyclomine 10 mg capsule 10 mg PO TID PRN (Reason: Abdominal Discomfort) Qty: 90 2RF allopurinol [Zyloprim] 100 mg tablet 100 mg PO QAM Qty: 90 3RF (DME) OneTouch Ultra Test Strip See Rx Instructions .Route Qty: 300 3RF Rx Instructions: Test Blood Sugars Three Times a Day potassium chloride 20 mEq tablet extended release 20 meq PO DAILY Qty: 90 3RF clopidogrel [Plavix] 75 mg tablet 75 mg PO QAM Qty: 90 3RF Rx Instructions: Brand name only (DME) FreeStyle Makayla 2 [place] Misc See Rx Instructions .MEDSUPPLY Qty: 1 0RF Rx Instructions: As directed (DME) FreeStyle Makayla 2 Sensor Kit See Rx Instructions .MEDSUPPLY Qty: 2 11RF Rx Instructions: As directed to check blood sugars diphenoxylate-atropine [Lomotil] 2.5-0.025 mg tablet 1 tab PO BID PRN (Reason: diarrhea) Qty: 30 3RF calcitriol 0.25 mcg capsule 0.25 mcg PO QAM Eliquis 2.5 mg Tablet 2.5 mg PO BID Qty: 60 0RF insulin glargine [Lantus Solostar U-100 Insulin] 100 unit/mL (3 mL) insulin pen 10 unit SUBCUT BID Rx Instructions: pt taking prn...hasnt been needing much lately metoprolol tartrate 25 mg tablet 25 mg PO BID ProRenal 8 mg iron-800 mcg-1,000 unit tablet 1 tab PO DAILY Discontinued insulin lispro 100 unit/mL Insulin Pen 10 unit SUBCUT QAM Rx Instructions: pt taking prn..hasnt been needing much lately atorvastatin 80 mg tablet 80 mg PO QAM nifedipine [Procardia XL] 60 mg tablet extended release 24hr 60 mg PO . SEE BELOW Rx Instructions: pt realized she doesnt have this med..thinks she may be supposed to be taking it ? Discharge Orders: Discharge Order (Routine); Ordered 11/18/22 Ordered By: Placido Jaramillo Admission Data Admit Date/Time: 11/09/22 03:08 Attending Provider: Placido Jaramillo Admit Provider: Rich Madrigal Primary Care Provider: Elizabeth Schreiber Other Providers: Rafael Cuevas ; Jackelin Walker ; Luis Aparicio ; [facility] [employer] [facility] Coding Level of Care Code HOSP INP/OBS DISCH >30 MIN Diagnoses Septicemia A41.9 Pyelonephritis of left kidney N12 Acute noncardiogenic pulmonary edema J81.0 Breath shortness R06.02 Elevated CPK R74.8 Lower extremity weakness R29.898 Anemia due to chronic kidney disease N18.9; D63.1 Yeast infection of the vagina B37.31 Aortic stenosis I35.0 Atrial fibrillation I48.91 CAD (coronary artery disease) I25.10 Associated angina: without angina Coronary Disease-Associated Artery/Lesion type: [place] artery [place] vs. transplanted heart: [place] heart ESRD on peritoneal dialysis N18.6; Z99.2 Hyperlipidemia E78.5 Hyperlipidemia type: unspecified Hypertension I10 Hypertension type: essential hypertension Type 2 diabetes mellitus E11.9 Edema R60.9 Abnormal LFTs R79.89 Leukocytosis D72.[address] scan R93.5
--- NOTE | 2022-11-23 14:24 | Coding Query ---
To promote full compliance with coding requirements relating to patient care, provider participation is requested in all cases of medical biller coder uncertainty. Please assist us with the question(s) below: Coding Question(s): The diagnosis(es) below was documented in the cardiology notes, H&P and beginning of visit hospitalist progress notes then subsequently fell off all further documentation. Please indicate if it is still a possible diagnosis or ruled out. Physician's Response(s): ACUTE ON CHRONIC DIASTOLIC HEART FAILURE ( ) Diagnosed and POA ( ) Diagnosed and not POA ( ) Ruled out ( x ) Other (please specify) - volume overload issues are due to ESRD CHRONIC DIASTOLIC HEART FAILURE (if acute ruled out) ( ) Diagnosed and POA ( ) Diagnosed and not POA ( ) Ruled out ( x ) Other (please specify) - volume overload issues are due to ESRD Thank you for your assistance, Natalie Mercedes - Wet Process Assistant Head [facility]
== END 2022-11-18 15:00 | disposition short-term general hospital (02) | DRG 871 ==
LOC: ED 22:40 → EDINP 11-09 03:08 → SUATTDRO 11-09 03:08 → EDINP 11-09 04:39 → 2W 11-09 15:48
DX: D63.1 Anemia in chronic kidney disease; I12.0 Hypertensive chronic kidney disease with stage 5 chronic kidney disease or end stage renal disease; Z79.01 Long term (current) use of anticoagulants; I25.10 Atherosclerotic heart disease of native coronary artery without angina pectoris; N12 Tubulo-interstitial nephritis, not specified as acute or chronic; Z79.899 Other long term (current) drug therapy; E11.22 Type 2 diabetes mellitus with diabetic chronic kidney disease; Z68.31 Body mass index [BMI] 31.0-31.9, adult; E11.40 Type 2 diabetes mellitus with diabetic neuropathy, unspecified; I35.0 Nonrheumatic aortic (valve) stenosis; Z79.4 Long term (current) use of insulin; Z88.8 Allergy status to other drugs, medicaments and biological substances; E11.65 Type 2 diabetes mellitus with hyperglycemia; E66.9 Obesity, unspecified; R53.1 Weakness; A41.51 Sepsis due to Escherichia coli [E. coli]; I24.8 Other forms of acute ischemic heart disease; I48.0 Paroxysmal atrial fibrillation; Z86.718 Personal history of other venous thrombosis and embolism; Z99.2 Dependence on renal dialysis; R79.89 Other specified abnormal findings of blood chemistry; M10.9 Gout, unspecified; E87.1 Hypo-osmolality and hyponatremia; I87.2 Venous insufficiency (chronic) (peripheral); Z95.5 Presence of coronary angioplasty implant and graft; N18.6 End stage renal disease; E78.5 Hyperlipidemia, unspecified; M48.061 Spinal stenosis, lumbar region without neurogenic claudication; N17.9 Acute kidney failure, unspecified; Z79.02 Long term (current) use of antithrombotics/antiplatelets; B37.31 Acute candidiasis of vulva and vagina

== ENCOUNTER 2023-03-07 15:09 | Inpatient (IN) ==
--- NOTE | 2023-03-07 15:50 | XRay Report ---
XR chest 1V portable HISTORY: 73 years-old Female weakness COMPARISON: 12/13/2022 TECHNIQUE: AP view of the chest FINDINGS: Cardiac silhouette is enlarged. Trace pleural effusions. Pulmonary vascular congestion suggested. No pneumothorax. Mild left basilar densities. Degenerative changes of the shoulders and spine. IMPRESSION: 1. Cardiomegaly with pulmonary vascular congestion. 2. Trace pleural effusions with mild left basilar opacities, favoring atelectasis. ACT 112: Negative or not required by law. The above report was generated using voice recognition software. It may contain grammatical, syntax o r spelling errors. Electronically signed by: Isac Fernandez M.D. 03/07/2023 3:49 PM
--- NOTE | 2023-03-07 16:00 | Emergency Department Note ---
History of Present Illness General Chief complaint: Vomiting Stated complaint: nausea, vomiting Time Seen by Provider: 03/07/23 15:21 History of Present Illness Provider complaint: Weakness Onset (ago): week(s) 1 73-year-old female end-stage renal disease on peritoneal dialysis presents emergency department for weakness. Patient states she feels very weak over the last week. Patient reports she thinks her potassium was low. Patient states she has been through this before. Patient states that she has been trying to supplement her potassium by eating lots of bananas at home and taking extra doses of her potassium supplementation. She reports she is on Eliquis. She reports a mild headache. No chest pain or difficulty breathing. No abdominal pain. No nausea vomiting or diarrhea. Home Medications Medication Instructions Recorded Confirmed Type dicyclomine 10 mg capsule 10 mg PO TID PRN Abdominal 10/31/21 03/07/23 Rx Discomfort #90 caps calcitriol 0.25 mcg capsule 0.25 mcg PO QAM 11/25/21 03/07/23 History OneTouch Ultra Test (blood sugar #300 ea 06/18/22 02/13/23 Rx diagnostic) diphenoxylate-atropine 2.5 1 tab PO BID PRN diarrhea #30 tabs 07/24/22 03/07/23 Rx mg-0.025 mg tablet (Lomotil) flash glucose scanning reader #1 ea 08/03/22 02/13/23 Rx (FreeStyle Makayla 2 [place]) flash glucose sensor (FreeStyle #2 ea 08/03/22 02/13/23 Rx Makayla 2 Sensor kit) metoprolol tartrate 25 mg tablet 25 mg PO BID 11/08/22 03/07/23 History vit B complx, C-iron 8 mg-folic 1 tab PO DAILY 11/08/22 03/07/23 History acid 800 mcg-D3 1,000 unit-zinc tablet (ProRenal) cyanocobalamin (vitamin B-12) 500 1,000 mcg PO QAM #60 tabs 11/18/22 03/07/23 Rx mcg tablet melatonin 3 mg tablet 3 mg PO HS PRN sleep #30 tabs 11/18/22 03/07/23 Rx isosorbide mononitrate 60 mg 60 mg PO QAM #90 tabs 12/06/22 03/07/23 Rx tablet,extended release 24 hr potassium chloride 20 mEq 20 meq PO BID 12/13/22 03/07/23 History tablet,extended release pen needle, diabetic 32 gauge x #300 ea 12/27/22 02/13/23 Rx 5/32" (BD Ultra-Fine Jesenia Pen Needle) nystatin 100,000 unit/gram topical 1 applic topical DAILY #30 grams 01/02/23 03/07/23 Rx cream allopurinol 100 mg tablet 100 mg PO QAM #90 tabs 01/18/23 03/07/23 Rx (Zyloprim) apixaban 2.5 mg tablet (Eliquis) 2.5 mg PO BID #60 tabs 01/18/23 03/07/23 Rx loratadine 10 mg tablet 10 mg PO DAILY #90 tabs 01/18/23 03/07/23 Rx insulin glargine 100 unit/mL (3 10 unit subcut DAILY 02/13/23 03/07/23 History mL) subcutaneous pen (Lantus Solostar U-100 Insulin) clopidogrel 75 mg tablet (Plavix) 75 mg PO QAM #90 tabs 02/22/23 03/07/23 Rx Allergies Allergy/AdvReac Type Severity Reaction Status Date / Time heparin Allergy Intermediate Hives Verified 03/07/23 16:52 insulin aspart Allergy Intermediate Hives Verified 03/07/23 16:52 [From Novolog U-100 Insulin aspart] Inccldp-ANE-CdY Reductase AdvReac Severe Elevated Verified 03/07/23 16:53 Inhibitor CPK, ?rhabdomyolysis lisinopril AdvReac Intermediate COUGHING Verified 03/07/23 16:52 meperidine AdvReac Intermediate hallucinate Verified 03/07/23 16:52 s Past Med/Surg History Medical History Abdominal pain Ongoing -- following with [facility]. Abnormal LFTs Anemia Anemia due to chronic kidney disease Anticoagulant long-term use Antiplatelet or antithrombotic long-term use Aortic stenosis Atrial fibrillation Occurred during hospital stay in [facility] ~2020. Treated with medication at the time. No problems since. Follows with Dr. Knott CAD (coronary artery disease) S/p stent to LCx 2009 and RCA in 2018 Carotid artery disease Carotid duplex 08/19/2018 = 5059% stenosis on the right internal carotid artery. No significant stenosis in the left internal carotid artery. Chronic back pain Significant x 2 years Has seen pain management - s/p epidural injections- only lasted 6 weeks for pain relief Chronic heart failure with preserved ejection fraction (HFpEF) Deep vein thrombosis (~05/2021) Unknown cause Degenerative disc disease Diabetes mellitus, type 2 IDDM Glucose stable and controlled per patient Edema Elevated CPK ESRD on peritoneal dialysis Gout attack Hemodialysis patient Diaylsis in [place]: Saturday, Saturday, Saturday through History of stent insertion of renal artery 2013 Hyperlipidemia Hypertension Leukocytosis Lower extremity weakness Lymphedema Obesity Osteoarthritis Paroxysmal atrial fibrillation Peritoneal dialysis status Renal artery stenosis S/p renal stent 2013 Septicemia Status post myocardial infarction Subclavian artery stenosis Per 08/19/18 carotid duplex- Normal flow in the innominate and right subclavian arteries. >50% stenosis of the proximal left subclavian artery with retrograde flow in the left vertebral artery and >40 mmHg difference in brachial systolic pressures (right >left). Type 2 diabetes mellitus Surgical History H/O heart artery stent x2, last stent placed ~2016. History of cardiac cath x2, most recent done about 5 years ago in [place]. History of colonoscopy History of esophagogastroduodenoscopy (EGD) S/P arteriovenous (AV) fistula creation right (Dr Hayes) 12/2021 S/P epidural steroid injection Family History Other Hypertension No family history of adverse response to anesthesia Social History Smoking Status: Never smoker Second Hand Exposure: No; Do You Dip or Chew Tobacco: No; Hx Alcohol Use: No Hx Substance Use: No Preferred Language: B[place] Communication Ability: Effective Visual Impairment: No Limitations Machinery Dismantler Required: No Beliefs That Will Affect Care: None marital status: Single Current Living Situation: Family Current Living Situation Comment: lives with grandson How many Children do You have: 2 Feels Safe at Home: Yes Assistive Devices: Walker and Other Physical Exam Vital Signs Vital Signs - 24 hr 03/07/23 15:20 03/07/23 15:29 03/07/23 15:27 Temperature 36.7 C Temperature Source Oral Pulse Rate 77 74 76 Respiratory Rate 18 20 Respiratory Effort / Characteristics Non-Labored Spontaneous Respiratory Depth Normal Respiratory Pattern Regular Blood Pressure 149/48 H Blood Pressure Mean 81 Pulse Oximetry 94 95 Oxygen Delivery Method Room Air Room Air Sepsis Recent Fever Within 48 Hours No Sepsis New/Unexplained Change in Mental Status N/A Sepsis Action Taken by Nursing No Action Required Physical Exam GENERAL: She is oriented to person, place, and time. She appears well-developed and well-nourished. She does not appear distressed. HENT: Exam performed. -Head: Normocephalic and atraumatic. -Right Ear: External ear normal. No mastoid erythema -Left Ear: External ear normal. No mastoid erythema EYES: Conjunctivae and EOM are normal. Pupils are equal, round, and reactive to light. Right eye exhibits no discharge. Left eye exhibits no discharge. No scleral icterus. NECK: Normal range of motion. Neck supple. No JVD present. No tracheal deviation and normal range of motion present. CV: Normal rate, regular rhythm, normal heart sounds and intact distal pulses. There is no peripheral edema. Palpable radial pulses bue. PULM/CHEST: Effort normal and breath sounds normal. No respiratory distress. No stridor. She has no wheezes. She has no rales. ABD: The abdomen is soft. Peritoneal dialysis catheter in place with no janene rounding erythema or discharge.There is no tenderness. There is no rebound, no guarding MUSC/SKEL: Normal range of motion. There is no peripheral edema, tenderness or deformity. LYMPH: No cervical adenopathy. NEURO: Motor and sensation grossly intact. SKIN: Skin is warm and dry. She is not diaphoretic. PSYCH: She has a normal mood and affect. Behavior is normal. Judgment and thought content normal. Course Course 1521: The patient was evaluated in room C11. A complete history and physical exam was performed Cardiac monitoring: An order was placed for continuous cardiac monitoring. The monitor shows a rate of sinus with 70 rhythm interpreted by me 1758: Vital signs stable. Labs show normal potassium however the patient's magnesium is low. Patient has leukocytosis and lactic acid of 3. Patient will be treated with empiric antibiotics. On reassessment no pain on palpation of the abdomen. Afebrile. No concern for peritonitis. CT of the head shows no ICH. Patient treated empirically with cefepime and vancomycin in case there is any infection. Aggressive fluid hydration was not given to the patient given that she is end-stage renal disease on peritoneal dialysis and her chest x-ray already shows some fluid overload as well as the patient's vitals being stable with no hypotension. Magnesium repletion was started in the emergency department. [facility]. Administered Medications Magnesium Sulfate/Dextrose (Magnesium Sulfate / D5w) 1 gm in 100 mls @ 100 mls/hr IV Q1H YVONNE Stop: 03/07/23 18:37 Last Admin: 03/07/23 17:21 Dose: 100 mls/hr Documented By: TRU Discontinued Medications Cefepime HCl (Maxipime) 2,000 mg in 20 mls @ 5 mls/min IV NOW STA; Protocol Stop: 03/07/23 17:14 Last Admin: 03/07/23 17:21 Dose: 5 mls/min Documented By: TRU Vancomycin HCl 2,750 mg/ (Sodium Chloride) 555 mls @ 200 mls/hr IV NOW ONE Stop: 03/07/23 20:03 Last Admin: 03/07/23 17:29 Dose: Not Given Documented By: TRU Medical Decision Making Laboratory Data Attestation: I reviewed the patient's lab results. 03/07/23 15:33 03/07/23 15:33 Lab Results 03/07/23 03/07/23 03/07/23 Range/Units 15:33 15:33 15:33 WBC 23.91 H (4.8-10.8) K/ul RBC 3.32 L (4.20-5.40) M/uL Hgb 10.5 L (12.0-16.0) g/dl Hct 31.0 L (37.0-47.0) % MCV 93.4 (80.0-100.0) fL MCH 31.6 (25.0-34.0) pg MCHC 33.9 (32.0-36.0) g/dL RDW Std Deviation 50.7 H (36.4-46.3) fL RDW Coeff of Ekaterina 15.1 H (11.5-14.5) % Plt Count 349 (130-400) K/uL MPV 11.1 (9.4-12.4) fL Immature Gran % (Auto) 3.2 % Neut % (Auto) 86.7 % Lymph % (Auto) 4.0 % [place] % (Auto) 5.3 % Eos % (Auto) 0.3 % Baso % (Auto) 0.5 % Neut # (Auto) 20.73 H (1.40-6.50) K/uL Lymph # (Auto) 0.95 L (1.2-3.4) K/uL [place] # (Auto) 1.26 H (0.11-0.59) K/uL Eos # (Auto) 0.08 (0-0.50) K/uL Baso # (Auto) 0.12 (0-0.2) K/uL Immature Gran # (Auto) 0.77 H (0.01-0.20) K/uL Absolute Nucleated RBC 0.02 (0-0.12) K/uL Nucleated RBC % (auto) 0.1 % Polychromasia 1+ PT 12.7 H (9.0-12.0) Seconds INR 1.2 H (0.9-1.1) APTT 32.4 H (21.0-31.0) Seconds PTT Ratio 1.1 Sodium 129 L (136-145) mmol/L Potassium 3.5 (3.5-5.1) mmol/L Chloride 90 L (98-107) mmol/L Carbon Dioxide 18 L (21-32) mmol/L Anion Gap 21 H (3-11) BUN 52 H (6-23) mg/dl Creatinine 8.46 H* (0.6-1.2) mg/dl Est Cr Clr Drug Dosing 9.8 ml/min Est GFR ( Amer) 4.9 ml/min Est GFR (Non-Af Amer) 4.2 ml/min BUN/Creatinine Ratio 6.1 L (10-20) Glucose 250 H (70-99(Fasting)) mg/dl Lactate (0.4-2.0) mmol/L Calcium 7.7 L (8.6-10.3) mg/dl Magnesium 1.2 L (1.7-2.4) mg/dl Troponin I High Sens 3977.2 H* (0-14) pg/ml SARS-CoV-2, RNA, NAAT (NEGATIVE) 05/11/23 05/11/23 Range/Units 15:36 16:38 WBC (4.8-10.8) K/ul RBC (4.20-5.40) M/uL Hgb (12.0-16.0) g/dl Hct (37.0-47.0) % MCV (80.0-100.0) fL MCH (25.0-34.0) pg MCHC (32.0-36.0) g/dL RDW Std Deviation (36.4-46.3) fL RDW Coeff of Ekaterina (11.5-14.5) % Plt Count (130-400) K/uL MPV (9.4-12.4) fL Immature Gran % (Auto) % Neut % (Auto) % Lymph % (Auto) % [place] % (Auto) % Eos % (Auto) % Baso % (Auto) % Neut # (Auto) (1.40-6.50) K/uL Lymph # (Auto) (1.2-3.4) K/uL [place] # (Auto) (0.11-0.59) K/uL Eos # (Auto) (0-0.50) K/uL Baso # (Auto) (0-0.2) K/uL Immature Gran # (Auto) (0.01-0.20) K/uL Absolute Nucleated RBC (0-0.12) K/uL Nucleated RBC % (auto) % Polychromasia PT (9.0-12.0) Seconds INR (0.9-1.1) APTT (21.0-31.0) Seconds PTT Ratio Sodium (136-145) mmol/L Potassium (3.5-5.1) mmol/L Chloride (98-107) mmol/L Carbon Dioxide (21-32) mmol/L Anion Gap (3-11) BUN (6-23) mg/dl Creatinine (0.6-1.2) mg/dl Est Cr Clr Drug Dosing ml/min Est GFR ( Amer) ml/min Est GFR (Non-Af Amer) ml/min BUN/Creatinine Ratio (10-20) Glucose (70-99(Fasting)) mg/dl Lactate 3.0 H* (0.4-2.0) mmol/L Calcium (8.6-10.3) mg/dl Magnesium (1.7-2.4) mg/dl Troponin I High Sens (0-14) pg/ml SARS-CoV-2, RNA, NAAT NEGATIVE (NEGATIVE) Imaging Data Attestation: I personally reviewed and interpreted this imaging study as follows: My Impression: CT head: No ICH Radiologist's Impression: Chest X-Ray 03/07/23 15:28 XR chest 1V portable HISTORY: 73 years-old Female weakness COMPARISON: 12/13/2022 TECHNIQUE: AP view of the chest FINDINGS: Cardiac silhouette is enlarged. Trace pleural effusions. Pulmonary vascular congestion suggested. No pneumothorax. Mild left basilar densities. Degenerative changes of the shoulders and spine. IMPRESSION: 1. Cardiomegaly with pulmonary vascular congestion. 2. Trace pleural effusions with mild left basilar opacities, favoring atelectasis. ACT 112: Negative or not required by law. The above report was generated using voice recognition software. It may contain grammatical, syntax or spelling errors. Electronically signed by: Isac Fernandez M.D. 03/07/2023 3:[address] 03/07/23 15:28 CT head/brain wo con CLINICAL HISTORY: 73 years-old Female with delacruz weakness. Acute headache with weakness TECHNIQUE: Multiple axial CT images of the head were obtained without contrast. A dose lowering technique was utilized adhering to the principles of ALARA. CT DOSE: 959.86 mGy.cm COMPARISON: 12/13/2022 FINDINGS: No acute intracranial hemorrhage, midline shift, intracranial mass, hydrocephalus, territorial ischemia or abnormal extra-axial collection. Motion degraded exam. Involutional changes with chronic microvascular ischemic disease. Senescent calcifications of the basal ganglia. The calvarium is intact. The paranasal sinuses, mastoid air cells, and middle ear cavities are clear. IMPRESSION: No acute intracranial abnormality. ACT 112: Negative or not required by law. The above report was generated using voice recognition software. It may contain grammatical, syntax or spelling errors. Electronically signed by: Isac Fernandez M.D. 03/07/2023 4:37 PM ECG Data Attestation: I personally reviewed and interpreted this ECG as follows: Additional Comments: Sinus rhythm with a rate of 90. IL 150 QRS 90 QTc 535. No significant change from the EKG in November 2022 [facility] Narrative 1521: The patient was evaluated in room C11. A complete history and physical exam was performed Cardiac monitoring: An order was placed for continuous cardiac monitoring. The monitor shows a rate of sinus with 70 rhythm interpreted by me 1758: Vital signs stable. Labs show normal potassium however the patient's magnesium is low. Patient has leukocytosis and lactic acid of 3. Patient will be treated with empiric antibiotics. On reassessment no pain on palpation of the abdomen. Afebrile. No concern for peritonitis. CT of the head shows no ICH. Patient treated empirically with cefepime and vancomycin in case there is any infection. Aggressive fluid hydration was not given to the patient given that she is end-stage renal disease on peritoneal dialysis and her chest x-ray already shows some fluid overload as well as the patient's vitals being stable with no hypotension. Magnesium repletion was started in the emergency d epartment. Patient will be admitted to the [facility] hospitalist team Dr. Quezada has been notified. Impression & Plan Hypomagnesemia, ESRD on peritoneal dialysis, Lactic acidemia Discharge Plan Visit Data Chief Complaint: Vomiting Stated Complaint: nausea, vomiting ED Provider: Nishant Paredes Discharge Problem: Hypomagnesemia, ESRD on peritoneal dialysis, Lactic acidemia Patient Disposition: Admitted As Inpatient Forms Stand Alone Forms: My [facility] Prescriptions Prescriptions: No Action dicyclomine 10 mg capsule 10 mg PO TID PRN (Reason: Abdominal Discomfort) Qty: 90 2RF (DME) OneTouch Ultra Test Strip See Rx Instructions .Route Qty: 300 3RF Rx Instructions: Test Blood Sugars Three Times a Day isosorbide mononitrate 60 mg tablet extended release 24 hr 60 mg PO QAM Qty: 90 3RF (DME) pen needle, diabetic [BD Ultra-Fine Jesenia Pen Needle] 32 gauge x 5/32" needle See Rx Instructions .Route Qty: 300 3RF Rx Instructions: Use 3 per day nystatin 100,000 unit/gram cream 1 applic topical DAILY Qty: 30 1RF loratadine 10 mg tablet 10 mg PO DAILY Qty: 90 3RF Eliquis 2.5 mg tablet 2.5 mg PO BID Qty: 60 0RF allopurinol [Zyloprim] 100 mg tablet 100 mg PO QAM Qty: 90 3RF clopidogrel [Plavix] 75 mg tablet 75 mg PO QAM Qty: 90 3RF Rx Instructions: Brand name only (DME) FreeStyle Makayla 2 [place] Misc See Rx Instructions .MEDSUPPLY Qty: 1 0RF Rx Instructions: As directed (DME) FreeStyle Makayla 2 Sensor Kit See Rx Instructions .MEDSUPPLY Qty: 2 11RF Rx Instructions: As directed to check blood sugars diphenoxylate-atropine [Lomotil] 2.5-0.025 mg tablet 1 tab PO BID PRN (Reason: diarrhea) Qty: 30 3RF calcitriol 0.25 mcg capsule 0.25 mcg PO QAM insulin glargine [Lantus Solostar U-100 Insulin] 100 unit/mL (3 mL) insulin pen 10 unit SUBCUT DAILY Rx Instructions: PER PT "HAVEN'T TAKEN FOR 4-5 DAYS, HAVEN'T BEEN FEELING WELL". metoprolol tartrate 25 mg tablet 25 mg PO BID ProRenal 8 mg iron-800 mcg-1,000 unit tablet 1 tab PO DAILY melatonin 3 mg Tablet 3 mg PO HS PRN (Reason: sleep) Qty: 30 0RF cyanocobalamin (vitamin B-12) 500 mcg Tablet 1,000 mcg PO QAM Qty: 60 0RF potassium chloride 20 mEq tablet extended release 20 meq PO BID Referrals Referrals: PCP,NO [Physician] -
[2023-03-07 16:03] LABS: Hemoglobin 10.5 g/dl (12.0-16.0); Mean Corpuscular Hemoglobin 31.6 pg (25.0-34.0); Mean Corpuscular Hgb Conc 33.9 g/dL (32.0-36.0); Mean Corpuscular Volume 93.4 fL (80.0-100.0); Mean Platelet Volume 11.1 fL (9.4-12.4); Nucleated RBC # (auto) 0.02 K/uL (0-0.12); Nucleated RBC % (auto) 0.1 %; Platelet Count 349 K/uL (130-400); RDW Coefficient of Variation 15.1 % (11.5-14.5); RDW Standard Deviation 50.7 fL (36.4-46.3); Red Blood Count 3.32 M/uL (4.20-5.40); White Blood Count 23.91 K/ul (4.8-10.8)
[2023-03-07 16:25] LABS: Basophils # (auto) 0.12 K/uL (0-0.2); Basophils % (auto) 0.5 %; Eosinophils # (auto) 0.08 K/uL (0-0.50); Eosinophils % (auto) 0.3 %; Immature Granulocytes # (auto) 0.77 K/uL (0.01-0.20); Immature Granulocytes % (auto) 3.2 %; Lymphocytes # (auto) 0.95 K/uL (1.2-3.4); Monocytes # (auto) 1.26 K/uL (0.11-0.59); Monocytes % (auto) 5.3 %; Neutrophils # (auto) 20.73 K/uL (1.40-6.50); Neutrophils % (auto) 86.7 %; Polychromasia 1+
[2023-03-07 16:30] LABS: BUN Creatinine Ratio 6.1 (10-20); Calcium 7.7 mg/dl (8.6-10.3); Creatinine Clr Calc Pharmacy 9.8 ml/min; Est GFR (African American) 4.9 ml/min; Est GFR (Non-African American) 4.2 ml/min; INR 1.2 (0.9-1.1); Magnesium 1.2 mg/dl (1.7-2.4); Partial Thromboplastin Ratio 1.1; Partial Thromboplastin Time 32.4 Seconds (21.0-31.0); Potassium 3.5 mmol/L (3.5-5.1); Prothrombin Time 12.7 Seconds (9.0-12.0); Troponin I High Sensitivity 3977.2 pg/ml (0-14)
--- NOTE | 2023-03-07 16:39 | CT Scan Report ---
CT head/brain wo con CLINICAL HISTORY: 73 years-old Female with delacruz weakness. Acute headache with weakness TECHNIQUE: Multiple axial CT images of the head were obtained without contrast. A dose lowering tech nique was utilized adhering to the principles of ALARA. CT DOSE: 959.86 mGy.cm COMPARISON: 12/13/2022 FINDINGS: No acute intracranial hemorrhage, midline shift, intracranial mass, hydrocephalus, territorial ischem ia or abnormal extra-axial collection. Motion degraded exam. Involutional changes with chronic microv ascular ischemic disease. Senescent calcifications of the basal ganglia. The calvarium is intact. The paranasal sinuses, mastoid air cells, and middle ear cavities are clear . IMPRESSION: No acute intracranial abnormality. ACT 112: Negative or not required by law. The above report was generated using voice recognition software. It may contain grammatical, syntax o r spelling errors. Electronically signed by: Isac Fernandez M.D. 03/07/2023 4:37 PM
[2023-03-07] MEDS ORDERED: CEFEPIME 2,000 MG/20 ML VIAL IV STA (17:11)
[2023-03-07] MEDS ORDERED: VANCOMYCIN HCL 2,750 MG in SODIUM CHLORIDE 0.9% 500 ML IV ONE (17:11)
[2023-03-07] MEDS ORDERED: VANCOMYCIN CONSULT ACTIVE PRN (17:11)
[2023-03-07] MEDS: MAGNESIUM SULFATE / D5W 1 GM/100 ML BAG IV SCH ×2 (17:21→18:25)
[2023-03-07] MEDS ORDERED: ONDANSETRON 4 MG OD TAB PO STA (18:00)
--- NOTE | 2023-03-07 18:27 | History & Physical Report ---
Date of Service March 07, 2023 Assessment & Plan (1) Nausea and vomiting: Plan: Acute on chronic/stable - Admit to med/surg - Etiology ?? symptoms related to ESRD v possible viral illness - Appears slightly volume contracted and in setting of acidosis will gently hydrate - IVF with NSS @ 100 ml/hr x 500 cc then stop - Zofran 4mg IV q6 prn n/v - Clear liquid diet for now and advance as tolerated to DMT2 diet (2) Lactic acidemia: Plan: Acute/unstable - No evidence of acute infection, afebrile, not tachycardic or hypotensive - Suspect that this may be related to mild dehydration, IVF as above and repeat level in AM - Obtain UA for completeness with reflex culture if indicated - CBC reviewed, leukocytosis is chronic and w/in baseline. - Recent admission included a peripheral smear also tested for philadelphia chromosome to exclude CML which was negative - Would benefit from f/u with hematology which was recommended at last admission but was not seen by them since that time (3) ESRD on peritoneal dialysis: Plan: Chronic/stable - Undergoes dialysis nightly - Discussed with Dr. Haile, formal consult placed, she will facilitate PD session this evening - Continue Calcitriol and ProRenal tabs - Chemistry panel reviewed, Na 129, K+ normal at 3.5, slightly acidotic -- repeat in AM following PD session and IVF (4) Hypomagnesemia: Plan: Acute/unstable - mod risk - Magnesium level reviewed, low at 1.2 - Mag Sulfate 2g total given in ED, I have ordered additional 1g - Repeat level in AM (5) Uncontrolled diabetes mellitus, with long-term current use of insulin: Plan: Chronic/unstable - Variable BSG control - last a1c was in October and was 7.9% - She has been having issues with hypoglycemia which is why her lispro has been placed on hold - Based on calculation in hospital, will place on Lantus 5 u BID and weight based coverage with meals - Pharmacy has been consulted for glycemic management, appreciate assistance (6) Paroxysmal atrial fibrillation: Plan: Chronic/stable - Currently examines in NSR - Continue Eliquis and Metoprolol Plan Plan as outlined above. DVT ppx provided with resumption of Eliquis. AM labs have been ordered. Pt mentioned to RN in ED that she is having vaginal itching and believes she has a yeast infection. Dose of Fluconazole 150mg PO x1 given in ED. Also noted elevated HS trop which is chronically elevated (although noted to be higher than baseline). No complaints of CP and in the setting of ESRD. Low suspicion for ACS. Plan has been d/w Dr. Quezada, further orders will be implemented as warranted. History of Present Illness Chief Complaint: N/V Primary Care Provider: Elizabeth Schreiber MD Aynaa Mcnulty is a 73 yo F with an array of chronic medical problems including a pmhx of ESRD on PD nightly at home, DMT2, h/o DVT, pafib, chronic leukocytosis, and gastritis who presented to the ER today c/o nausea, vomiting, and weakness. Patient reports that she has been dealing with intermittent n/v since starting dialysis a little over a year ago. Patient was last hospitalized under our service for septicemia d/t e. coli UTI with pyelonephritis. She was discharged to rehab in stable condition. Since that time, it appears that she has been in and out of the ER. Her most recent PCP note from 02/13 indicates that her Humalog was placed on hold and that her Lantus was reduced to 5 units every night with dialysis. Patient has been having symptoms of decreased appetite as well as intermittent nausea and vomiting for the past ~4 days. She denies abdominal pa in, fever, chills, diarrhea, coffee ground or hematemesis. She presented to the ER today where her work up was found to be remarkable for a leukocytosis of 23.9, stable anemia with a hgb of 10.5. Her chemistry panel was significant for a hyponatremia of 129, CO2 of 18, magnesium was low at 1.2, and her lactate was elevated at 3.0. She is due for PD tonight. She was medicated with a dose of Cefepime and an order was placed for Vancomycin as well d/t her leukocytosis and elevated lactate. She did not receive any ivf and her only complaint at the time of my assessment is nausea. She has been referred to the hospitalist service for admission for further eval. Allergies Allergy/AdvReac Type Severity Reaction Status Date / Time heparin Allergy Intermediate Hives Verified 03/07/23 16:52 insulin aspart Allergy Intermediate Hives Verified 03/07/23 16:52 [From Novolog U-100 Insulin aspart] [id number]-[id number]-NeC Reductase AdvReac Severe Elevated Verified 03/07/23 16:53 Inhibitor CPK, ?rhabdomyolysis lisinopril AdvReac Intermediate COUGHING Verified 03/07/23 16:52 meperidine AdvReac Intermediate hallucinate Verified 03/07/23 16:52 s Home Medications Medication Instructions Recorded Confirmed Type dicyclomine 10 mg capsule 10 mg PO TID PRN Abdominal 10/31/21 03/07/23 Rx Discomfort #90 caps calcitriol 0.25 mcg capsule 0.25 mcg PO QAM 11/25/21 03/07/23 History OneTouch Ultra Test (blood sugar #300 ea 06/18/22 02/13/23 Rx diagnostic) diphenoxylate-atropine 2.5 1 tab PO BID PRN diarrhea #30 tabs 07/24/22 03/07/23 Rx mg-0.025 mg tablet (Lomotil) flash glucose scanning reader #1 ea 08/03/22 02/13/23 Rx (FreeStyle Makayla 2 [place]) flash glucose sensor (FreeStyle #2 ea 08/03/22 02/13/23 Rx Makayla 2 Sensor kit) metoprolol tartrate 25 mg tablet 25 mg PO BID 11/08/22 03/07/23 History vit B complx, C-iron 8 mg-folic 1 tab PO DAILY 11/08/22 03/07/23 History acid 800 mcg-D3 1,000 unit-zinc tablet (ProRenal) cyanocobalamin (vitamin B-12) 500 1,000 mcg PO QAM #60 tabs 11/18/22 03/07/23 Rx mcg tablet melatonin 3 mg tablet 3 mg PO HS PRN sleep #30 tabs 11/18/22 03/07/23 Rx isosorbide mononitrate 60 mg 60 mg PO QAM #90 tabs 12/06/22 03/07/23 Rx tablet,extended release 24 hr potassium chloride 20 mEq 20 meq PO BID 12/13/22 03/07/23 History tablet,extended release pen needle, diabetic 32 gauge x #300 ea 12/27/22 02/13/23 Rx 5/32" (BD Ultra-Fine Jesenia Pen Needle) nystatin 100,000 unit/gram topical 1 applic topical DAILY #30 grams 01/02/23 03/07/23 Rx cream allopurinol 100 mg tablet 100 mg PO QAM #90 tabs 01/18/23 03/07/23 Rx (Zyloprim) apixaban 2.5 mg tablet (Eliquis) 2.5 mg PO BID #60 tabs 01/18/23 03/07/23 Rx loratadine 10 mg tablet 10 mg PO DAILY #90 tabs 01/18/23 03/07/23 Rx insulin glargine 100 unit/mL (3 10 unit subcut DAILY 02/13/23 03/07/23 History mL) subcutaneous pen (Lantus Solostar U-100 Insulin) clopidogrel 75 mg tablet (Plavix) 75 mg PO QAM #90 tabs 02/22/23 03/07/23 Rx Past Med/Surg History Medical History Abdominal pain Ongoing -- following with [facility]. Abnormal LFTs Anemia Anemia due to chronic kidney disease Anticoagulant long-term use Antiplatelet or antithrombotic long-term use Aortic stenosis Atrial fibrillation Occurred during hospital stay in [facility] ~2020. Treated with medication at the time. No problems since. Follows with Dr. Knott CAD (coronary artery disease) S/p stent to LCx 2009 and RCA in 2019 Carotid artery disease Carotid duplex 08/19/2018 = 5059% stenosis on the right internal carotid artery. No significant stenosis in the left internal carotid artery. Chronic back pain Significant x 2 years Has seen pain management - s/p epidural injections- only lasted 6 weeks for pain relief Chronic heart failure with preserved ejection fraction (HFpEF) Deep vein thrombosis (~05/2021) Unknown cause Degenerative disc disease Diabetes mellitus, type 2 IDDM Glucose stable and controlled per patient Edema Elevated CPK ESRD on peritoneal dialysis Gout attack Hemodialysis patient Diaylsis in [place]: Saturday, Saturday, Saturday through [facility] History of stent insertion of renal artery 2013 Hyperlipidemia Hypertension Leukocytosis Lower extremity weakness Lymphedema Obesity Osteoarthritis Paroxysmal atrial fibrillation Peritoneal dialysis status Renal artery stenosis S/p renal stent 2013 Septicemia Status post myocardial infarction Subclavian artery stenosis Per 08/19/18 carotid duplex- Normal flow in the innominate and right sub clavian arteries. >50% stenosis of the proximal left subclavian artery with retrograde flow in the left vertebral artery and >40 mmHg difference in brachial systolic pressures (right >left). Type 2 diabetes mellitus Surgical History H/O heart artery stent x2, last stent placed ~2017. History of cardiac cath x2, most recent done about 5 years ago in [place]. History of colonoscopy History of esophagogastroduodenoscopy (EGD) S/P arteriovenous (AV) fistula creation right (Dr Hayes) 12/2021 S/P epidural steroid injection Family History Other Hypertension No family history of adverse response to anesthesia Social History Smoking Status: Former smoker Second Hand Exposure: No; Do You Dip or Chew Tobacco: No; Hx Alcohol Use: No Hx Substance Use: No Preferred Language: Guatemalan Communication Ability: Effective Visual Impairment: No Limitations Coin Teller Required: No Beliefs That Will Affect Care: None marital status: Single Current Living Situation: Family Current Living Situation Comment: grandson How many Children do You have: 2 Other Information That Helps Us Care for You: No Feels Safe at Home: Yes Safety Concerns: Feels Safe At This Time Assistive Devices: Glasses Assistive Devices Comment: reading glasses Physical Exam Physical Exam: GENERAL: 73 yo well-developed, well-nourished chronically ill appearing F. A AOx4. NAD. LUNGS: Clear to auscultation bilaterally. No accessory muscle use. No W/R/R. CARDIOVASCULAR: Regular rate and rhythm. 3/6 [place] RSB. ABDOMEN: Soft, non-tender and non-distended. No palpable masses, rigidity, rebound tenderness, or guarding. BS normoactive x 4 quad. PD catheter site good. EXTREMITIES: RLE edema 1+ (chronically), no calf tenderness, pulses +2/4. LLE w/o edema. Results & Data Results & Data Vital Signs (Past 12 Hours) Vital Signs Temp Pulse Resp BP Pulse Ox O2 Del Method 03/07/23 15:27 76 03/07/23 15:29 74 20 95 Room Air 03/07/23 15:20 36.7 C 77 18 149/48 H 94 Room Air Laboratory Results 03/07/23 15:33 03/07/23 15:33 Diagnostic Findings Chest X-Ray 03/07/23 15:28 XR chest 1V portable HISTORY: 73 years-old Female weakness COMPARISON: 12/13/2022 TECHNIQUE: AP view of the chest FINDINGS: Cardiac silhouette is enlarged. Trace pleural effusions. Pulmonary vascular congestion suggested. No pneumothorax. Mild left basilar densities. Degenerative changes of the shoulders and spine. IMPRESSION: 1. Cardiomegaly with pulmonary vascular congestion. 2. Trace pleural effusions with mild left basilar opacities, favoring atelectasis. ACT 112: Negative or not required by law. The above report was generated using voice recognition software. It may contain grammatical, syntax or spelling errors. Electronically signed by: Isac Fernandez M.D. 03/07/2023 3:[address] 03/07/23 15:28 CT head/brain wo con CLINICAL HISTORY: 73 years-old Female with delacruz weakness. Acute headache with weakness TECHNIQUE: Multiple axial CT images of the head were obtained without contrast. A dose lowering technique was utilized adhering to the principles of ALARA. CT DOSE: 959.86 mGy.cm COMPARISON: 12/13/2022 FINDINGS: No acute intracranial hemorrhage, midline shift, intracranial mass, hydrocephalus, territorial ischemia or abnormal extra-axial collection. Motion degraded exam. Involutional changes with chronic microvascular ischemic disease. Senescent calcifications of the basal ganglia. The calvarium is intact. The paranasal sinuses, mastoid air cells, and middle ear cavities are clear. IMPRESSION: No acute intracranial abnormality. ACT 112: Negative or not required by law. The above report was generated using voice recognition software. It may contain grammatical, syntax or spelling errors. Electronically signed by: Isac Fernandez M.D. 03/07/2023 4:37 PM Supervising Physician Co-Signing Physician Notes I personally saw and examined the patient. I verified all andrews points and agree with Taya Basurto PA-C with the following exceptions and/or additions: 73 year old female with ESRD on peritoneal dialysis presents to the ER with decreased appetite and nausea and vomiting. She reports the nausea and vomiting has been intermittent and ongoing. Her peritoneal dialysis has felt different and more irritable for the last 3 weeks but this is not getting worse and no fever or chills. No upper respiratory, GI or urinary infection symptoms. O/E A&Ox3, HS RRR, quiet heart sounds, no murmurs appreciated, Chest CTAB, Abdo - intermittent left sided tenderness without guarding or rebound, abdomen is soft. 1+ pitting edema b/l lower extremities. A/P Hyponatremia - suspect due to recent Nausea and vomiting. She does not produce urine therefore no concern for SIADH. Volume status difficult to establish but given recent vomiting and dry mucus membranes - will give just 500ml NSS overnight and recheck Na AM. Alternatively her legs are more swollen and left sided pleural effusion appears worse than previous (although similar to Oct CXR when she was ) ?cause or effect of nausea/vomiting. Leg are more swollen than usual but otherwise she appears hypovolemic Nausea and vomiting - ?viral gastroenteritis ?hyponatremia ?uremia. Appears to be a intermittent recurring symptom. Hyomagnesemia - Mg level 1.2 2g IV given in ER, additional 1g IV given now. Leucocytosis - this appears to be an ongoing issue, afebrile, no source for infection at this time. No PNA on CXR. Does not produce urine. Increased risk of SBP with peritoneal dialysis but no overt peritoneal signs on exam. Follow up blood cultures. Prior history of E. coli septicemia. Cefepime given in the ER. Will defer further antibiotics Metabolic acidosis with elevated anion gap - no need for bicarb given appears to be explained by anion gap rather than bicarb loss. Mostly secondary to uremia with persistent anion gap. Increase from 17 -> 21 today appears to be increased lactic acid. Continue to trend this but IV fluid bolus deferred given hemodynamically stable and patient on PD with unclear fluid status. Suspect due to mild dehydration as above. Elevated troponin - no symptoms to suggest ACS. No new ischemic changes on EKG - ongoing ST depressions in lateral leads are not new. ESRD on peritoneal dialysis - consult nephrology Vaginal yeast infection - fluconazole 150mg PO PG Care Time/CCT Total # of Minutes Spent Total Time Spent with Patient: Total time spent is greater than 50% in coordination of care (as documented) at patient's floor/unit and/or counseling patient: Coding Level of Care Code 62965 INT INP/OBS CARE 3/75MIN Diagnoses Nausea and vomiting R11.2 Lactic acidemia E87.20 ESRD on peritoneal dialysis N18.6; Z99.2 Hypomagnesemia E83.42 Uncontrolled diabetes mellitus, with long-term current use of insulin E11.65; Z79.4 Paroxysmal atrial fibrillation I48.0
[2023-03-07] MEDS ORDERED: FLUCONAZOLE 50 MG TAB PO ONE (18:30)
[2023-03-07] MEDS ORDERED: MAGNESIUM SULFATE / D5W 1 GM/100 ML BAG IV ONE (18:37)
[2023-03-07] MEDS ORDERED: GLUCAGON FOR INJ 1 MG VIAL SQ PRN (20:23)
[2023-03-07] MEDS ORDERED: PHARMACY GLYCEMIC MGMT CONSULT PRN (20:23)
[2023-03-07] MEDS ORDERED: MELATONIN 3 MG TAB PO PRN (20:23)
[2023-03-07] MEDS ORDERED: ALUMINUM/MAGNESIUM SUSP 30 ML UDC PO PRN (20:23)
[2023-03-07] MEDS ORDERED: CARBOHYDRATES FOR HYPOGLYCEMIA PO PRN (20:23)
[2023-03-07] MEDS ORDERED: DIPHENOXYLATE/ATROPINE 2.5/0.025MG TAB PO PRN (20:23)
[2023-03-07] MEDS ORDERED: DEXTROSE 50% 50 ML SYRINGE IV PRN (20:23)
[2023-03-07] MEDS ORDERED: POLYETHYLENE (MIRALAX) 17 GM PACK PO PRN (20:23)
[2023-03-07] MEDS ORDERED: ACETAMINOPHEN 325 MG TAB PO PRN (20:23)
[2023-03-07] MEDS ORDERED: MAGNESIUM HYDROXIDE SUSP 30 ML UDC PO PRN (20:23)
[2023-03-07] MEDS ORDERED: GLUCOSE 10 TAB/TUBE PO PRN (20:23)
[2023-03-07] MEDS ORDERED: GLUCOSE 40% GEL 15 GM TUBE PO PRN (20:23)
[2023-03-07] MEDS ORDERED: INSULIN ASPART PER UNIT CHARGE SC SCH (21:00)
[2023-03-07] MEDS ORDERED: METOPROLOL TARTRATE 25 MG TAB PO SCH (21:00)
[2023-03-07] MEDS: APIXABAN 2.5 MG TAB PO SCH (21:36)
[2023-03-07] MEDS: POTASSIUM CHLORIDE CRTAB 20 MEQ TABCR PO SCH (21:37)
[2023-03-07] MEDS ORDERED: SODIUM CHLORIDE 0.9% 500 ML IV SCH (21:45)
[2023-03-07] MEDS: INSULIN HUMAN REGULAR SC SCH (21:54)
[2023-03-07] MEDS: LANTUS PER UNIT CHARGE SQ SCH (21:54)
[2023-03-08] MEDS ORDERED: INSULIN HUMAN REGULAR SC SCH (02:00)
[2023-03-08] MEDS: ONDANSETRON INJ 2 MG/ML 2 ML VIAL IV PRN ×2 (05:45→19:39)
--- NOTE | 2023-03-08 08:30 | Hospitalist Progress Note ---
Date of Service March 08, 2023 Assessment & Plan (1) NSTEMI (non-ST elevated myocardial infarction): Plan: Acute unclear if stable patient had vague symptoms of diaphoresis nausea vomiting no chest pain or pressure Typically has an abnormal troponin however on admission was 3977 escalating to 5504 EKG has some lateral ST depressions and patient has history of known previous stents in 2014 and 2019 and a renal stent somewhere in the interim Typically follows with [facility] cardiology typically takes Eliquis for atrial fibrillation Patient is made n.p.o. for cardiac evaluation Currently on is on Plavix therapy chronically Blood pressures have been low we are holding isosorbide at this time as well as holding her metoprolol (2) Nausea and vomiting: Plan: Acute on chronic/stable Now resolved consider if anginal equivalent (3) Lactic acidemia: Plan: Acute/unstable likely secondary to renal disease and lower blood pressures with decreased perfusion - No evidence of acute infection, afebrile, not tachycardic or hypotensive -Caution with leukocytosis however - Obtain UA for completeness with reflex culture if indicated patient states she usually does not make urine - CBC reviewed, leukocytosis is chronic and w/in baseline. - Recent admission included a peripheral smear also tested for philadelphia chromosome to exclude CML which was negative - Would benefit from f/u with hematology which was recommended at last admission but was not seen by them since that time (4) Uncontrolled diabetes mellitus, with long-term current use of insulin: Plan: Chronic/unstable - Variable BSG control - last a1c was in October and was 7.9% - She has been having issues with hypoglycemia which is why her lispro has been placed on hold - Based on calculation in hospital, will place on Lantus 5 u BID and weight based coverage with meals - Pharmacy has been consulted for glycemic management, appreciate assistance (5) Paroxysmal atrial fibrillation: Plan: Chronic/stable - Currently examines in NSR -Current medications are on hold due to lower blood pressures transfer to telemetry to watch for arrhythmia (6) ESRD on peritoneal dialysis: Plan: Chronic/stable - Undergoes dialysis nightly - Discussed with Dr. Haile, formal consult placed, she will facilitate PD session we will check basilarly fluid for cell count and culture if needed - Continue Calcitriol and ProRenal tabs Remains hyponatremic (7) Hypomagnesemia: Plan: Acute/unstable replete as of 512 Plan Additional time was spent speaking on speaker phone to the patient's son and daughter individually during the day and additional 35 minutes were spent over the initial 55 minutes Admission and Anticipated Discharge Date Admission Date: March 07, 2023 Subjective Patient has resolution of her symptoms. She however has escalation of her high- sensitivity troponin and worsened EKG changes from her normal baseline abnormal EKG Discussions with patient and cardiology we will transfer the patient to telemetry for consideration of NSTEMI and/or cardiac demand ischemia from progression of severe aortic stenosis Patient has chronic kidney disease stage V on peritoneal dialysis and isolated leukocytosis either Edward from cardiac distress or possible secondary infection currentlyas of late was not done last evening and we will check to as late fluid for infection on his next exchange previous admission included a urinary tract infection however the patient states she makes no urine at all. The patient complains of vaginal yeast discomfort Physical Exam Physical Exam: Patient appears in no acute distress although her family states she hides her distress while Her cardiac exam does not reveal as a lot of of murmurs are expected given the description of severe attic stenosis Her lungs have bibasilar rales Abdomen is NABS her peritoneal dialysis site is clean and intact there is no tenderness to abdomen no rebound no guarding Extremities are with trace edema Results & Data Results & Data Vital Signs (Past 12 Hours) Vital Signs Temp Pulse Pulse Resp BP Pulse Ox O2 Del Method 03/08/23 07:59 Room Air 03/08/23 07:27 98.6 F 72 18 94/64 L 95 Room Air 03/07/23 20:40 Room Air 03/07/23 21:30 76 147/62 H Laboratory Results Reviewed CBC Reviewed PRP Reviewed troponin trending Discussed case with Dr. Haile PG Care Time/CCT Total # of Minutes Spent Total Time Spent with Patient: Total time spent is greater than 50% in coordination of care (as documented) at patient's floor/unit and/or counseling patient: Coding Level of Care Code 94944 SUB INP/OBS CARE 3/50MIN (25 - SIGNIFICANT, SEPARATELY IDENTIFIABLE ) Diagnoses NSTEMI (non-ST elevated myocardial infarction) I21.4 Nausea and vomiting R11.2 Lactic acidemia E87.20 Uncontrolled diabetes mellitus, with long-term current use of insulin E11.65; Z79.4 Paroxysmal atrial fibrillation I48.0 ESRD on peritoneal dialysis N18.6; Z99.2 Hypomagnesemia E83.42
[2023-03-08] MEDS ORDERED: ISOSORBIDE MONO EXTENDED REL 60 MG TABCR PO SCH (09:00)
--- NOTE | 2023-03-08 09:26 | Pharmacy Report ---
Pharmacy Glycemic Short Note 2 - Date of Service March 08, 2023 - Glycemic Short BSG Results (Last 24 hours): 03/07/23 03/07/23 03/08/23 15:33 20:33 01:40 Glucose 250 H POC Glucose 277 H 154 H 03/08/23 08:51 Glucose POC Glucose 196 H OUTPATIENT ANTIDIABETIC REGIMEN: * Lantus 5 units SC HS w/ dialysis (PD) * Per endocrine note on 02/13/23 - Lantus can be increased to 8-10 units HS if hyperglycemic and using higher dextrose solution w/ consideration to switch to NPH * Bolus insulin on hold * Patient reports not taking insulin in past 4-5 days Patient's A1c = 7.9% (11/10/22) * However, this result is likely somewhat unreliable in ESRD patients d/t interactions between the A1c analyzing technique and high levels of urea in ESRD, reduced RBC life span, iron deficiency anemia, and EPO administration. HbA1c > 7.5% in ESRD patient may overestimate the extent of hyperglycemia in ESRD patients. ASSESSMENT: * SE is a 73 year old female who presented to ED on 03/07/23 for evaluation of nausea and vomiting * Patient reports not feeling well over past 4-5 days and has not been taking her insulin * Hyperglycemic on admission - BSG of 277 mg/dL * Patient with ESRD maintained with peritoneal dialysis (continuing while inpatient) * Prior inpatient data suggests increased insulin needs from outpatient, but will proceed with caution in initial dosing PLAN FOR INPATIENT GLYCEMIC CONTROL: * Hold outpatient oral diabetes medications * Basal insulin * Lantus 5 units SQ daily * Lantus 0-5 units SC HS * Bolus insulin * NovoLog per scale ACHS or Q6hrs while NPO * Goal Range: Low 120 mg/dL - High 150 mg/dL * Correction Factor: 30 mg/dL/unit * Nutritional / Prandial insulin per carb ratio of 1 unit per 10 grams CHO consumed
[2023-03-08] MEDS: allopurinoL 100 MG TAB PO SCH (09:28)
[2023-03-08] MEDS: CLOPIDOGREL BISULFATE 75 MG TAB PO SCH (09:28)
[2023-03-08] MEDS: APIXABAN 2.5 MG TAB PO SCH (09:28)
[2023-03-08] MEDS: POTASSIUM CHLORIDE CRTAB 20 MEQ TABCR PO SCH ×2 (09:28→21:02)
[2023-03-08] MEDS: CYANOCOBALAMIN (B-12) 500 MCG TABLET PO SCH (09:29)
[2023-03-08] MEDS: CALCITRIOL 0.25 MCG CAPSULE PO SCH (09:29)
[2023-03-08] MEDS: NEPHROCAPS PO SCH (09:29)
[2023-03-08] MEDS: LANTUS PER UNIT CHARGE SQ SCH ×2 (09:34→21:43)
[2023-03-08] MEDS: INSULIN HUMAN REGULAR SC SCH ×4 (09:35→21:43)
--- NOTE | 2023-03-08 09:35 | Nephrology Consultation ---
Date of Consultation March 08, 2023 Assessment & Plan (1) ESRD on peritoneal dialysis: (2) Nausea and vomiting: (3) Fatigue: (4) Hypomagnesemia: Plan 73 yof with ESRD (on peritoneal dialysis), paroxysmal atrial fibrillation, HTN, HLD, CAD (s/p stent), IDDM2, HFpEF, aortic stenosis, anemia admitted with generalized weakness associated with nausea and vomiting. W/U unremarkable except hypomagnesemia, was replaced with IV. BP has been low this morning, asymptomatic. Symptoms improved. Did sarkiso have PD last night as she was admitted to floor late. --am lab and UA still pending --continue current PD Rx with Delflex 2.5 , 5 exchanges she has been having decent UF with the current prescription. If BP remains low or UF too high , may need to change to Delflex 1.5 or alternate with 2.5 --dose meds for eGFR <10 --will change to regular diet with no restriction as per pt request Will follow History of Present Illness Reason for Consultation: ESRD on PD Attending Physician: Juan Carlos Hawkins MD History of Present Illness Ayana Mcnulty is a 73-year-old female with past medical history significant for ESRD on PD, hypertension, diabetes, coronary artery disease, renovascular disease admitted to the hospital with Generalized weakness, N/V. Nephrology consult was requested for management of PD. EMR records were reviewed in detail during patient's visit. Ayana presented to ER yesterday with today c/o nausea, vomiting, and generalized weakness. She has been having intermittent n/v since starting dialysis early 2021. She has been having symptoms of decreased appetite as well as intermittent nausea and vomiting for the past ~4 days. Denies abdominal pain, fever, chills, diarrhea, coffee ground or hematemesis. No dysuria, increased frequency of urination. w/u in ER showed a leukocytosis of 23.9 and she was given a dose of Vanco and Cefepime pending blood culture. She has been having lo w K and recently started on KCL 20 meq bid a week ago. Hb was 10.5. Her K was 3.5, Na 129, CO2 of 18, magnesium was low at 1.2, and her lactate was elevated at 3.0. UA pending. ESRD secondary to renovascular disease, hypertensive and diabetic nephropathy started on HD in Oct 2021 and eventually transitioned to PD. On CCPD 5 exchanges, dwell volume 2300 ml, fill 23 min, drain 8 minutes, dwell time 90 minutes. Has been on Delflex 2.5 % and she reports usual UF about 1200 ml and she thinks she has been getting too dry making her feeling weak and dehydrated and has electrolyte issues. h/o right renal artery stenosis in 2013 s/p stent. Last renal imaging and Doppler in November 18 showed bilateral atrophic kidney no renal artery stenosis. Has moderate degree proteinuria. Historically her blood pressure has always been poorly controlled, but much better now. History of coronary artery disease, status post stent before. This morning she feels her symptom somewhat improved, no further N/V. BP has been low but denies dizziness, lightheadedness. Allergies Allergy/AdvReac Type Severity Reaction Status Date / Time heparin Allergy Intermediate Hives Verified 03/07/23 16:52 insulin aspart Allergy Intermediate Hives Verified 03/07/23 16:52 [From Novolog U-100 Insulin aspart] [id number]-[id number]-[id number] Reductase AdvReac Severe Elevated Verified 03/07/23 16:53 Inhibitor CPK, ?rhabdomyolysis lisinopril AdvReac Intermediate COUGHING Verified 03/07/23 16:52 meperidine AdvReac Intermediate hallucinate Verified 03/07/23 16:52 s Home Medications Medication Instructions Recorded Confirmed Type dicyclomine 10 mg capsule 10 mg PO TID PRN Abdominal 10/31/21 03/07/23 Rx Discomfort #90 caps calcitriol 0.25 mcg capsule 0.25 mcg PO QAM 11/25/21 03/07/23 History OneTouch Ultra Test (blood sugar #300 ea 06/18/22 02/13/23 Rx diagnostic) diphenoxylate-atropine 2.5 1 tab PO BID PRN diarrhea #30 tabs 07/24/22 03/07/23 Rx mg-0.025 mg tablet (Lomotil) flash glucose scanning reader #1 ea 08/03/22 02/13/23 Rx (FreeStyle Makayla 2 [place]) flash glucose sensor (FreeStyle #2 ea 08/03/22 02/13/23 Rx Makayla 2 Sensor kit) metoprolol tartrate 25 mg tablet 25 mg PO BID 11/08/22 03/07/23 History vit B complx, C-iron 8 mg-folic 1 tab PO DAILY 11/08/22 03/07/23 History acid 800 mcg-D3 1,000 unit-zinc tablet (ProRenal) cyanocobalamin (vitamin B-12) 500 1,000 mcg PO QAM #60 tabs 11/18/22 03/07/23 Rx mcg tablet melatonin 3 mg tablet 3 mg PO HS PRN sleep #30 tabs 11/18/22 03/07/23 Rx isosorbide mononitrate 60 mg 60 mg PO QAM #90 tabs 12/06/22 03/07/23 Rx tablet,extended release 24 hr potassium chloride 20 mEq 20 meq PO BID 12/13/22 03/07/23 History tablet,extended release pen needle, diabetic 32 gauge x #300 ea 12/27/22 02/13/23 Rx " (BD Ultra-Fine Jesenia Pen Needle) nystatin 100,000 unit/gram topical 1 applic topical DAILY #30 grams 01/02/23 03/07/23 Rx cream allopurinol 100 mg tablet 100 mg PO QAM #90 tabs 01/18/23 03/07/23 Rx (Zyloprim) apixaban 2.5 mg tablet (Eliquis) 2.5 mg PO BID #60 tabs 01/18/23 03/07/23 Rx loratadine 10 mg tablet 10 mg PO DAILY #90 tabs 01/18/23 03/07/23 Rx insulin glargine 100 unit/mL (3 10 unit subcut DAILY 02/13/23 03/07/23 History mL) subcutaneous pen (Lantus Solostar U-100 Insulin) clopidogrel 75 mg tablet (Plavix) 75 mg PO QAM #90 tabs 02/22/23 03/07/23 Rx Patient History Medical History (Updated 03/08/23 @ 09:47 by Agnieszka Haile MD) Abdominal pain Ongoing -- following with [facility]. Abnormal LFTs Anemia Anemia due to chronic kidney disease Anticoagulant long-term use Antiplatelet or antithrombotic long-term use Aortic stenosis Atrial fibrillation Occurred during hospital stay in [facility] ~2020. Treated with medication at the time. No problems since. Follows with Dr. Knott CAD (coronary artery disease) S/p stent to LCx 2009 and RCA in 2018 Carotid artery disease Carotid duplex 08/19/2018 = 5059% stenosis on the right internal carotid artery. No significant stenosis in the left internal carotid artery. Chronic back pain Significant x 2 years Has seen pain management - s/p epidural injections- only lasted 6 weeks for pain relief Chronic heart failure with preserved ejection fraction (HFpEF) Deep vein thrombosis (~05/2021) Unknown cause Degenerative disc disease Diabetes mellitus, type 2 IDDM Glucose stable and controlled per patient Edema Elevated CPK ESRD on peritoneal dialysis Gout attack Hemodialysis patient Diaylsis in [place]: Saturday, Saturday, Saturday through History of stent insertion of renal artery 2013 Hyperlipidemia Hypertension Leukocytosis Lower extremity weakness Lymphedema Obesity Osteoarthritis Paroxysmal atrial fibrillation Peritoneal dialysis status Renal artery stenosis S/p renal stent 2013 Septicemia Status post myocardial infarction Subclavian artery stenosis Per 08/19/18 carotid duplex- Normal flow in the innominate and right subclavian arteries. >50% stenosis of the proximal left subclavian artery with retrograde flow in the left vertebral artery and >40 mmHg difference in brachial systolic pressures (right >left). Type 2 diabetes mellitus Surgical History H/O heart artery stent x2, last stent placed ~2016. History of cardiac cath x2, most recent done about 5 years ago in [place]. History of colonoscopy History of esophagogastroduodenoscopy (EGD) S/P arteriovenous (AV) fistula creation right (Dr Hayes) 12/2021 S/P epidural steroid injection Family History Other Hypertension No family history of adverse response to anesthesia Social History Smoking Status: Former smoker Second Hand Exposure: No; Do You Dip or Chew Tobacco: No; Hx Alcohol Use: No Hx Substance Use: No Preferred Language: Albanian Communication Ability: Effective Visual Impairment: No Limitations Doctor Of Naturopathic Medicine Required: No Beliefs That Will Affect Care: None marital status: Single Current Living Situation: Family Current Living Situation Comment: grandson How many Children do You have: 2 Other Information That Helps Us Care for You: No Feels Safe at Home: Yes Safety Concerns: Feels Safe At This Time Assistive Devices: Glasses Assistive Devices Comment: reading glasses Review of Systems Review of Systems: DEtail ROS was done and pertinent positives and negatives were mentioned above. Physical Exam Constitutional: WD/WN, vitals as above no acute distress Eyes: + anicteric sclerae Neck: normal visual inspection Thyroid: no thyromegaly Respiratory: no respiratory distress Auscultation: lungs clear to auscultation bilaterally Cardiovascular: Rate/Rhythm: regular rate and regular rhythm Extremities: + edema (trace b/l LE edema.) Gastrointestinal (Abdomen): Inspection/Auscultation: abdomen normal to inspection Percussion/Palpation: abdomen soft; abdomen nontender Musculoskeletal: Extremities: extremities normal to inspection Skin: no rashes, warm and dry Neurologic: no focal motor deficits Psychiatric: Orientation: alert and oriented x 3 Affect: euthymic affect Results & Data Vital Signs (Past 12 Hours) Vital Signs Temp Pulse Resp BP Pulse Ox O2 Del Method 03/08/23 08:30 85/60 L 03/08/23 07:59 Room Air 03/08/23 07:27 37 C 72 18 94/64 L 95 Room Air PG Care Time/CCT Total # of Minutes Spent Total Time Spent with Patient: Total time spent is greater than 50% in coordination of care (as documented) at patient's floor/unit and/or counseling patient: Coding Level of Care Code 35368 INT INP/OBS CARE 3/75MIN Diagnoses ESRD on peritoneal dialysis N18.6; Z99.2 Nausea and vomiting R11.2 Fatigue R53.83 Hypomagnesemia E83.42
[2023-03-08 12:30] LABS: Basophils % (auto) 0.5 %; Eosinophils # (auto) 0.17 K/uL (0-0.50); Eosinophils % (auto) 0.8 %; Hematocrit (blood only) 30.3 % (37.0-47.0); Hemoglobin 10.4 g/dl (12.0-16.0); Immature Granulocytes # (auto) 0.71 K/uL (0.01-0.20); Immature Granulocytes % (auto) 3.3 %; Lymphocytes # (auto) 1.23 K/uL (1.2-3.4); Lymphocytes % (auto) 5.7 %; Mean Corpuscular Hemoglobin 32.1 pg (25.0-34.0); Mean Corpuscular Hgb Conc 34.3 g/dL (32.0-36.0); Mean Corpuscular Volume 93.5 fL (80.0-100.0); Monocytes # (auto) 0.95 K/uL (0.11-0.59); Monocytes % (auto) 4.4 %; Neutrophils # (auto) 18.48 K/uL (1.40-6.50); Neutrophils % (auto) 85.3 %; Nucleated RBC # (auto) 0.03 K/uL (0-0.12); Nucleated RBC % (auto) 0.1 %; Platelet Count 346 K/uL (130-400); RDW Coefficient of Variation 15.6 % (11.5-14.5); RDW Standard Deviation 51.7 fL (36.4-46.3); Red Blood Count 3.24 M/uL (4.20-5.40); White Blood Count 21.64 K/ul (4.8-10.8)
[2023-03-08 12:50] LABS: Albumin Globulin Ratio 0.6 (0.9-2); Albumin Level 2.6 gm/dl (3.4-5.0); BUN Creatinine Ratio 7.2 (10-20); Bilirubin,Total 0.4 mg/dl (0.2-1.0); Creatinine Clr Calc Pharmacy 5.9 ml/min; Est GFR (African American) 4.7 ml/min; Est GFR (Non-African American) 4.1 ml/min; Globulin 4.1 gm/dl (2.5-4.0); Magnesium 2.4 mg/dl (1.7-2.4); Potassium 4.9 mmol/L (3.5-5.1); Total Protein 6.7 gm/dl (6.0-8.3)
[2023-03-08] MEDS ORDERED: NITROGLYCERIN SL 0.4 MG/TAB TAB SL PRN (15:06)
[2023-03-08] MEDS ORDERED: ONDANSETRON INJ 2 MG/ML 2 ML VIAL IV PRN (15:06)
[2023-03-08] MEDS ORDERED: GENTAMICIN SULFATE 0.1% CR 15 GM TUBE EXT PRN (18:15)
[2023-03-08] MEDS ORDERED: NYSTATIN OINT 15 GM TUBE EXT PRN (21:16)
[2023-03-08] MEDS: METOPROLOL TARTRATE 25 MG TAB PO SCH (21:42)
--- NOTE | 2023-03-08 22:25 | Electrocardiogram Report ---
Test Reason : Blood Pressure : / mmHG Vent. Rate : 090 BPM Atrial Rate : 090 BPM P-R Int : 150 ms QRS Dur : 090 ms QT Int : 438 ms P-R-T Axes : 041 -20 156 degrees QTc Int : 535 ms Poor data quality, interpretation may be adversely affected Sinus rhythm with Premature atrial complexes Possible Left atrial enlargement Left ventricular hypertrophy with repolarization abnormality Inferior infarct , age undetermined Anterior infarct (cited on or before 13-DEC-2022) Prolonged QT Abnormal ECG When compared with ECG of 13-DEC-2022 14:13, Inferior infarct is now Present ST more depressed Lateral leads Confirmed by Kayode Del Cid ([id number]) on 03/08/2023 10:25:08 PM Referred By: REFERRED SELF Confirmed By:Kayode Del Cid
--- NOTE | 2023-03-08 23:27 | XCELERA ---
[id number]
--- NOTE | 2023-03-09 06:42 | Electrocardiogram Report ---
Test Reason : Blood Pressure : / mmHG Vent. Rate : 072 BPM Atrial Rate : 072 BPM P-R Int : 166 ms QRS Dur : 092 ms QT Int : 506 ms P-R-T Axes : 035 -19 152 degrees QTc Int : 554 ms Normal sinus rhythm Premature atrial complexes Left ventricular hypertrophy with repolarization abnormality Marked ST abnormality, possible anterior subendocardial injury Inferior infarct (cited on or before 07-MAR-2023) Prolonged QT Abnormal ECG When compared with ECG of 07-MAR-2023 15:17, Criteria for Anterior infarct are no longer Present ST now depressed in Anterior leads T wave inversion now evident in Anterior leads Confirmed by Kayode Del Cid ([id number]) on 03/09/2023 6:41:48 AM Referred By: REFERRED SELF Confirmed By:Kayode Del Cid
[2023-03-09] MEDS: METOPROLOL TARTRATE 25 MG TAB PO SCH ×2 (08:24→20:15)
[2023-03-09] MEDS: DICYCLOMINE HCL 10 MG CAP PO PRN (08:24)
[2023-03-09] MEDS: CYANOCOBALAMIN (B-12) 500 MCG TABLET PO SCH (08:25)
[2023-03-09] MEDS: allopurinoL 100 MG TAB PO SCH (08:25)
[2023-03-09] MEDS: NEPHROCAPS PO SCH (08:25)
[2023-03-09] MEDS: CLOPIDOGREL BISULFATE 75 MG TAB PO SCH (08:25)
[2023-03-09] MEDS: CALCITRIOL 0.25 MCG CAPSULE PO SCH (08:25)
[2023-03-09] MEDS: POTASSIUM CHLORIDE CRTAB 20 MEQ TABCR PO SCH ×2 (08:26→20:32)
[2023-03-09] MEDS: INSULIN HUMAN REGULAR SC SCH ×4 (08:38→20:32)
[2023-03-09] MEDS ORDERED: LANTUS PER UNIT CHARGE SQ SCH (09:00)
[2023-03-09 09:20] LABS: Basophils # (auto) 0.13 K/uL (0-0.2); Basophils % (auto) 0.7 %; Hematocrit (blood only) 28.1 % (37.0-47.0); Hemoglobin 9.5 g/dl (12.0-16.0); Immature Granulocytes # (auto) 0.75 K/uL (0.01-0.20); Immature Granulocytes % (auto) 3.8 %; Lymphocytes # (auto) 1.58 K/uL (1.2-3.4); Mean Corpuscular Hgb Conc 33.8 g/dL (32.0-36.0); Mean Corpuscular Volume 94.6 fL (80.0-100.0); Mean Platelet Volume 10.9 fL (9.4-12.4); Monocytes # (auto) 1.24 K/uL (0.11-0.59); Monocytes % (auto) 6.3 %; Neutrophils # (auto) 15.52 K/uL (1.40-6.50); Neutrophils % (auto) 78.2 %; Nucleated RBC # (auto) 0.04 K/uL (0-0.12); Nucleated RBC % (auto) 0.2 %; Platelet Count 355 K/uL (130-400); RDW Coefficient of Variation 15.7 % (11.5-14.5); RDW Standard Deviation 52.9 fL (36.4-46.3); Red Blood Count 2.97 M/uL (4.20-5.40); White Blood Count 19.82 K/ul (4.8-10.8)
[2023-03-09 09:38] LABS: BUN Creatinine Ratio 6.4 (10-20); Calcium 8.4 mg/dl (8.6-10.3); Est GFR (African American) 4.8 ml/min; Est GFR (Non-African American) 4.1 ml/min; Potassium 3.6 mmol/L (3.5-5.1)
[2023-03-09 09:44] LABS: Troponin I High Sensitivity 4766.5 pg/ml (0-14)
--- NOTE | 2023-03-09 12:30 | Nephrology Progress Note ---
Date of Service March 09, 2023 Assessment & Plan (1) ESRD on peritoneal dialysis: Plan: CCPD nightly. Rx 5 exchanges of 2.3 L. Split 1.5%/2.5% bath. Tolerating PD reasonably well. Volume status difficult to manage in setting of severe and predominately history of right heart CHF. Volume status reasonably controlled. Clearance acceptable. Orders for PD tonight have been entered into the EHR and reviewed with the dialysis Rx. Medications appropriately dosed for PD. (2) Nausea and vomiting: Plan: Symptomatically improved. Lactate elevated on admission. Etiology unclear but suspect potential ischemia associated with underlying cardiovascular disease. Possible that PO KCl was contributing per patient report. (3) Fatigue: Plan: Chronic but progressive. Cardiology revaluation regarding CAD with elevated troponin, EKG changes, and aortic stenosis pending. Ayana reports that chronic back pain and spinal stenosis are also contributing to debility. Close outpatient follow up will be required. (4) Aortic stenosis: Plan: Cardiology consultation pending. Admission and Anticipated Discharge Date Admission Date: March 07, 2023 Subjective No acute events overnight. Ayana reports improvement in GI symptoms. No nausea or vomiting today. She denies chest pain or palpitations. She denies shortness of breath. CCPD performed overnight without complications. Exchanges clear. I spoke with Ayana and her [id number] (Ilene) this morning. Recent history also reviewed with her grandson (Bo) at her request. I also spoke to Dr. Hawkins. Ayana feels like she is ready to be discharged home today. Some increased LE edema noted. Review of Systems Review of Systems: All systems reviewed & are unremarkable except as noted in HPI & below Physical Exam Constitutional: WD/WN, vitals as above no acute distress Eyes: + anicteric sclerae Neck: normal visual inspection Thyroid: no thyromegaly Respiratory: no respiratory distress Auscultation: lungs clear to auscultation bilaterally Cardiovascular: Rate/Rhythm: regular rate and regular rhythm Heart Sounds: + murmur Extremities: + edema (b/l LE edema, R>L) Gastrointestinal (Abdomen): Inspection/Auscultation: abdomen normal to inspection Percussion/Palpation: abdomen soft; abdomen nontender Musculoskeletal: Extremities: extremities normal to inspection Skin: no rashes, warm and dry Neurologic: no focal motor deficits Psychiatric: Orientation: alert and oriented x 3 Affect: euthymic affect Results & Data Vital Signs (Past 12 Hours) Vital Signs Temp Pulse Pulse Pulse Resp BP Pulse Ox 03/09/23 11:48 36.9 C 67 18 107/60 97 03/09/23 07:00 74 03/09/23 07:20 36.3 C L 75 19 03/09/23 07:24 36.3 C L 75 19 114/68 93 03/09/23 03:57 36.6 C 72 16 91/59 L 93 O2 Del Method 03/09/23 11:48 Room Air 03/09/23 07:00 03/09/23 07:20 03/09/23 07:24 Room Air 03/09/23 03:57 Room Air Laboratory Results Laboratory Results - last 24 hr 03/08/23 03/08/23 03/08/23 12:08 12:15 16:32 WBC 21.64 H RBC 3.24 L Hgb 10.4 L Hct 30.3 L MCV 93.5 MCH 32.1 MCHC 34.3 RDW Std Deviation 51.7 H RDW Coeff of Ekaterina 15.6 H Plt Count 346 MPV 11.0 Immature Gran % (Auto) 3.3 Neut % (Auto) 85.3 Lymph % (Auto) 5.7 [place] % (Auto) 4.4 Eos % (Auto) 0.8 Baso % (Auto) 0.5 Neut # (Auto) 18.48 H Lymph # (Auto) 1.23 [place] # (Auto) 0.95 H Eos # (Auto) 0.17 Baso # (Auto) 0.10 Immature Gran # (Auto) 0.71 H Absolute Nucleated RBC 0.03 Nucleated RBC % (auto) 0.1 Sodium 129 L Potassium 4.9 D Chloride 92 L Carbon Dioxide 17 L Anion Gap 20 H BUN 63 H Creatinine 8.76 H* D Est Cr Clr Drug Dosing 5.9 Est GFR ( Amer) 4.7 Est GFR (Non-Af Amer) 4.1 BUN/Creatinine Ratio 7.2 L Glucose 170 H POC Glucose 189 H Calcium 8.0 L Magnesium 2.4 Total Bilirubin 0.4 AST 36 ALT 18 Alkaline Phosphatase 151 H Troponin I High Sens 5504.0 H* D Total Protein 6.7 Albumin 2.6 L Globulin 4.1 H Albumin/Globulin Ratio 0.6 L 0503/09/23 03/09/23 20:47 07:25 08:46 WBC 19.82 H RBC 2.97 L Hgb 9.5 L Hct 28.1 L MCV 94.6 MCH 32.0 MCHC 33.8 RDW Std Deviation 52.9 H RDW Coeff of Ekaterina 15.7 H Plt Count 355 MPV 10.9 Immature Gran % (Auto) 3.8 Neut % (Auto) 78.2 Lymph % (Auto) 8.0 [place] % (Auto) 6.3 Eos % (Auto) 3.0 Baso % (Auto) 0.7 Neut # (Auto) 15.52 H Lymph # (Auto) 1.58 Glasscock # (Auto) 1.24 H Eos # (Auto) 0.60 H Baso # (Auto) 0.13 Immature Gran # (Auto) 0.75 H Absolute Nucleated RBC 0.04 Nucleated RBC % (auto) 0.2 Sodium Potassium Chloride Carbon Dioxide Anion Gap BUN Creatinine Est Cr Clr Drug Dosing Est GFR ( Amer) Est GFR (Non-Af Amer) BUN/Creatinine Ratio Glucose POC Glucose 164 H 143 H Calcium Magnesium Total Bilirubin AST ALT Alkaline Phosphatase Troponin I High Sens Total Protein Albumin Globulin Albumin/Globulin Ratio 03/09/23 03/09/23 08:46 11:09 WBC RBC Hgb Hct MCV MCH MCHC RDW Std Deviation RDW Coeff of Ekaterina Plt Count MPV Immature Gran % (Auto) Neut % (Auto) Lymph % (Auto) Glasscock % (Auto) Eos % (Auto) Baso % (Auto) Neut # (Auto) Lymph # (Auto) Glasscock # (Auto) Eos # (Auto) Baso # (Auto) Immature Gran # (Auto) Absolute Nucleated RBC Nucleated RBC % (auto) Sodium 130 L Potassium 3.6 D Chloride 92 L Carbon Dioxide 21 Anion Gap 17 H BUN 55 H Creatinine 8.63 H* Est Cr Clr Drug Dosing 6.0 Est GFR ( Amer) 4.8 Est GFR (Non-Af Amer) 4.1 BUN/Creatinine Ratio 6.4 L Glucose 130 H POC Glucose 133 H Calcium 8.4 L Magnesium Total Bilirubin AST ALT Alkaline Phosphatase Troponin I High Sens 4766.5 H* Total Protein Albumin Globulin Albumin/Globulin Ratio PG Care Time/CCT Total # of Minutes Spent Total Time Spent with Patient: Total time spent is greater than 50% in coordination of care (as documented) at patient's floor/unit and/or counseling patient: Coding Level of Care Code 91727 SUB INP/OBS CARE 350MIN Diagnoses ESRD on peritoneal dialysis N18.6; Z99.2 Nausea and vomiting R11.2 Fatigue R53.83 Aortic stenosis I35.0
--- NOTE | 2023-03-09 14:06 | Cardiology Consultation ---
Date of Consultation March 09, 2023 Assessment & Plan (1) Weakness: (2) Congestive heart failure: (3) CAD (coronary artery disease): (4) Elevated troponin: (5) Paroxysmal atrial fibrillation: (6) Anticoagulant long-term use: (7) Hypertension: (8) Aortic stenosis: Plan 1. Weakness: Although nonspecific I suspect her weakness is due to mild congestive heart failure as well as left ventricular dysfunction and possibly recent myocardial infarction, possibly progressive aortic stenosis. 2. Congestive heart failure: She does appeared to have mild congestive heart failure based on her chest x-ray and her symptoms, that can be controlled by dialysis and is not severe. 3. Coronary disease: She has known coronary artery disease, based on her echocardiogram she has new wall motion abnormalities and a decreased ejection fraction over the last 4 months. With these findings as well as her symptoms I suspect she has had an interim myocardial infarction. Both the electrocardiogram and the echocardiogram would suggest an inferior myocardial infarction. Even though she did not have typical chest pain this seems the most likely explanation for the findings. I do not believe those occurred on this admission, probably earlier, despite the elevated cardiac enzymes but perhaps she has had extension. We should consider catheterization, especially if we are going to evaluate her aortic valve. 4. Elevated troponin: Her troponin is quite elevated this admission, I do not think she should be taken urgently to the [facility] without an ST segment elevation myocardial infarction however it does suggest progressive coronary disease and we should plan catheterization this admission. 5. Atrial fibrillation: She has a history of paroxysmal atrial fibrillation but we have not identified that on this admission and it probably is not related to her presentation. It should be safe to hold her Eliquis for 48 hours prior to catheterization. 6. Anticoagulation: She is on Eliquis, she should remain on an anticoagulant over the long run but it should be safe to hold for her catheterization. 7. Hypertension: Her blood pressure has been quite labile with both high and low readings. 8. Aortic stenosis: She does have significant and possibly progressive aortic stenosis, now graded as severe. She also has wall motion abnormalities and a reduced left ventricular ejection fraction which could be due to coronary artery disease but I cannot exclude a contribution from her aortic stenosis. At this time it may be prudent to evaluate her aortic valve as well as her coronary arteries for possible valve replacement. I discussed catheterization at length with her and her daughter, I told her that we had planned on having this done Saturday with Dr. Mercer, she does not know Dr. Mercer but knows Dr. Del Cid and after a long conversation about the procedure, indications and possible findings she feels uncomfortable proceeding without talking to Dr. Del Cid. I have sent a message to him but he is not on-call this weekend (which I talked to the family about) and I do not know if he will respond or be able to see her. Nevertheless I will keep her n.p.o. and schedule her for catheterization on Saturday hoping that we can do it. If not we will have to reschedule. One consideration would be to send her home and do this process as an outpatient. History of Present Illness Reason for Consultation: Elevated troponin, aortic stenosis Attending Physician: Juan Carlos Hawkins MD History of Present Illness This is a 73-year-old woman who normally follows with Dr. Knott in our office and has a history of diabetes mellitus, hypertension (with left renal artery stent in 2013), dyslipidemia, end-stage kidney disease on dialysis. She also has a history of paroxysmal atrial fibrillation and known coronary artery disease (RCA stent September 2019, left circumflex stent August 2010) as well as aortic stenosis. She presented July 12, 2022 with atrial fibrillation with a rapid ventricular rate although did not have a lot of palpitations, she did however have substernal chest discomfort and shortness of breath. Her troponin was elevated to around 90 but this was felt consistent with her presentation and demand ischemia. Her beta-blockade was increased and she remained on reduced dose Eliquis and was discharged on July 14, 2022. She presented in mid October 2022 with symptoms of shortness of breath and lower extremity edema. Her blood pressure was significantly elevated in the emergency room and she had an elevated high-sensitivity troponin which was 413 on presentation and increased to 662 2-1/2 hours later. Her chest x-ray did not show pulmonary edema however her BNP was over 3000. Her electrocardiogram showed sinus rhythm with left ventricular hypertrophy and repolarization abnormalities but similar to prior tracings. An echocardiogram done November 09, 2022 showed severe left ventricular hypertrophy with a preserved left ventricular ejection fraction, moderate to borderline severe aortic stenosis and mild to moderate mitral regurgitation. There were no wall motion abnormalities identified. An echocardiogram done March 08, 2023 now shows normal left ventricular size with moderate concentric left ventricular hypertrophy, and ejection fraction which has dropped to 40-45% with inferior and inferoseptal hypokinesis. Severe aortic stenosis is present with a valve area calculated 0.37 cm, as well as moderate mitral regurgitation. Mild to moderate pulmonary hypertension is also present. The wall motion abnormalities are new compared to October of this year, appears worse. She presented to the [facility] emergency room on March 07, 2023 with weakness. This had been present for about a week. She denied chest pain. Her chest x-ray did suggest pulmonary vascular congestion as well as trace pleural effusions and cardiomegaly. Her creatinine is markedly elevated at over 8 (she is on dialysis) and her troponin was elevated on presentation. Her first troponin was 3977, it peaked the next day at 5504 and then subsequently was 4766. An electrocardiogram this admission shows sinus rhythm with left ventricular hypertrophy and an inferior myocardial infarction as well as lateral ST-T abnormalities. A prior tracing from December 13, 2022 did not show the inferior myocardial infarction and the lateral T wave abnormalities are more pronounced now. I spent a long time with her discussing her symptoms and it seems that she does not have chest discomfort either immediately upon presentation or since October of this year. Her symptoms are primarily weakness and fatigue, possibly shortness of breath but that is not a large component. She relates most of her symptoms to electrolyte abnormalities. Her daughter came in during the latter part of the conversation and I discussed things with her as well. During her time in the hospital she has not had cardiovascular symptoms. Allergies Allergy/AdvReac Type Severity Reaction Status Date / Time heparin Allergy Intermediate Hives Verified 03/07/23 16:52 insulin aspart Allergy Intermediate Hives Verified 03/07/23 16:52 [From Novolog U-100 Insulin aspart] [id number] Reductase AdvReac Severe Elevated Verified 03/07/23 16:53 Inhibitor CPK, ?rhabdomyolysis lisinopril AdvReac Intermediate COUGHING Verified 03/07/23 16:52 meperidine AdvReac Intermediate hallucinate Verified 03/07/23 16:52 s Home Medications Medication Instructions Recorded Confirmed Type dicyclomine 10 mg capsule 10 mg PO TID PRN Abdominal 10/31/21 03/07/23 Rx Discomfort #90 caps calcitriol 0.25 mcg capsule 0.25 mcg PO QAM 11/25/21 03/07/23 History OneTouch Ultra Test (blood sugar #300 ea 06/18/22 02/13/23 Rx diagnostic) diphenoxylate-atropine 2.5 1 tab PO BID PRN diarrhea #30 tabs 07/24/22 03/07/23 Rx mg-0.025 mg tablet (Lomotil) flash glucose scanning reader #1 ea 08/03/22 02/13/23 Rx (FreeStyle Makayla 2 [place]) flash glucose sensor (FreeStyle #2 ea 08/03/22 02/13/23 Rx Makayla 2 Sensor kit) metoprolol tartrate 25 mg tablet 25 mg PO BID 11/08/22 03/07/23 History vit B complx, C-iron 8 mg-folic 1 tab PO DAILY 11/08/22 03/07/23 History acid 800 mcg-D3 1,000 unit-zinc tablet (ProRenal) cyanocobalamin (vitamin B-12) 500 1,000 mcg PO QAM #60 tabs 11/18/22 03/07/23 Rx mcg tablet melatonin 3 mg tablet 3 mg PO HS PRN sleep #30 tabs 11/18/22 03/07/23 Rx isosorbide mononitrate 60 mg 60 mg PO QAM #90 tabs 12/06/22 03/07/23 Rx tablet,extended release 24 hr potassium chloride 20 mEq 20 meq PO BID 12/13/22 03/07/23 History tablet,extended release pen needle, diabetic 32 gauge x #300 ea 12/27/22 02/13/23 Rx 5/32" (BD Ultra-Fine Jesenia Pen Needle) nystatin 100,000 unit/gram topical 1 applic topical DAILY #30 grams 01/02/23 03/07/23 Rx cream allopurinol 100 mg tablet 100 mg PO QAM #90 tabs 01/18/23 03/07/23 Rx (Zyloprim) apixaban 2.5 mg tablet (Eliquis) 2.5 mg PO BID #60 tabs 01/18/23 03/07/23 Rx loratadine 10 mg tablet 10 mg PO DAILY #90 tabs 01/18/23 03/07/23 Rx insulin glargine 100 unit/mL (3 10 unit subcut DAILY 02/13/23 03/07/23 History mL) subcutaneous pen (Lantus Solostar U-100 Insulin) clopidogrel 75 mg tablet (Plavix) 75 mg PO QAM #90 tabs 02/22/23 03/07/23 Rx Patient History Medical History (Updated 03/09/23 @ 14:40 by Luis Aparicio MD) Abdominal pain Ongoing -- following with [facility] Abnormal LFTs Anemia Anemia due to chronic kidney disease Anticoagulant long-term use Antiplatelet or antithrombotic long-term use Aortic stenosis Atrial fibrillation Occurred during hospital stay in [facility] ~2020. Treated with medication at the time. No problems since. Follows with Dr. Knott CAD (coronary artery disease) S/p stent to LCx 2009 and RCA in 2019 Carotid artery disease Carotid duplex 08/19/2018 = 5059% stenosis on the right internal carotid artery. No significant stenosis in the left internal carotid artery. Chronic back pain Significant x 2 years Has seen pain management - s/p epidural injections- only lasted 6 weeks for pain relief Chronic heart failure with preserved ejection fraction (HFpEF) Deep vein thrombosis (~05/2021) Unknown cause Degenerative disc disease Diabetes mellitus, type 2 IDDM Glucose stable and controlled per patient Edema Elevated CPK Elevated troponin ESRD on peritoneal dialysis Gout attack Hemodialysis patient Diaylsis in [place]: Saturday, Saturday, Saturday through [facility] History of stent insertion of renal artery 2013 Hyperlipidemia Hypertension Leukocytosis Lower extremity weakness Lymphedema Obesity Osteoarthritis Paroxysmal atrial fibrillation Peritoneal dialysis status Renal artery stenosis S/p renal stent 2013 Septicemia Status post myocardial infarction Subclavian artery stenosis Per 08/19/18 carotid duplex- Normal flow in the innominate and right subclavian arteries. >50% stenosis of the proximal left subclavian artery with retrograde flow in the left vertebral artery and >40 mmHg difference in brachial systolic pressures (right >left). Type 2 diabetes mellitus Surgical History H/O heart artery stent x2, last stent placed ~2016. History of cardiac cath x2, most recent done about 5 years ago in [place]. History of colonoscopy History of esophagogastroduodenoscopy (EGD) S/P arteriovenous (AV) fistula creation right (Dr Hayes) 12/2021 S/P epidural steroid injection Family History Other Hypertension No family history of adverse response to anesthesia Social History Smoking Status: Former smoker Second Hand Exposure: No; Do You Dip or Chew Tobacco: No; Hx Alcohol Use: No Hx Substance Use: No Preferred Language: [place] Communication Ability: Effective Visual Impairment: No Limitations Bicycle Fitter Required: No Beliefs That Will Affect Care: None marital status: Single Current Living Situation: Family Current Living Situation Comment: grandson How many Children do You have: 2 Other Information That Helps Us Care for You: No Feels Safe at Home: Yes Safety Concerns: Feels Safe At This Time Assistive Devices: Walker and Wheelchair Assistive Devices Comment: reading glasses Review of Systems Review of Systems: All systems reviewed & are unremarkable except as noted in HPI & below Physical Exam Physical Exam: Constitutional: Alert, cooperative and in no distress. HEENT: Unremarkable Neck: No jugular venous distention, carotid pulses are normal and equal bilaterally without bruits. She does have a transmitted murmur. Pulmonary: Clear to auscultation bilaterally. Cardiac: Regular rhythm with a grade 3/6 crescendo decrescendo murmur at the base, no gallop or rub. Abdomen: Soft, nontender with normal bowel sounds. Extremities: No edema. Distal pulses intact. Neurologic: No focal findings. Gait was not tested. Skin: No rash, ecchymoses or petechiae. Results & Data Vital Signs (Past 12 Hours) Vital Signs Temp Pulse Pulse Pulse Resp BP Pulse Ox 03/09/23 11:48 36.9 C 67 18 107/60 97 03/09/23 07:00 74 03/09/23 07:20 36.3 C L 75 19 03/09/23 07:24 36.3 C L 75 19 114/68 93 03/09/23 03:57 36.6 C 72 16 91/59 L 93 O2 Del Method 03/09/23 11:48 Room Air 03/09/23 07:00 03/09/23 07:20 03/09/23 07:24 Room Air 03/09/23 03:57 Room Air Laboratory Results Cardiac Enzymes 03/09/23 Range/Units 08:46 Troponin I High Sens 4766.5 H* (0-14) pg/ml CBC 03/09/23 Range/Units 08:46 WBC 19.82 H (4.8-10.8) K/ul RBC 2.97 L (4.20-5.40) M/uL Hgb 9.5 L (12.0-16.0) g/dl Hct 28.1 L (37.0-47.0) % Plt Count 355 (130-400) K/uL Neut # (Auto) 15.52 H (1.40-6.50) K/uL Lymph # (Auto) 1.58 (1.2-3.4) K/uL [place] # (Auto) 1.24 H (0.11-0.59) K/uL Eos # (Auto) 0.60 H (0-0.50) K/uL Baso # (Auto) 0.13 (0-0.2) K/uL Comprehensive Metabolic Panel 03/09/23 Range/Units 08:46 Sodium 130 L (136-145) mmol/L Potassium 3.6 D (3.5-5.1) mmol/L Chloride 92 L (98-107) mmol/L Carbon Dioxide 21 (21-32) mmol/L BUN 55 H (6-23) mg/dl Creatinine 8.63 H* (0.6-1.2) mg/dl Glucose 130 H (70-99(Fasting)) mg/dl Calcium 8.4 L (8.6-10.3) mg/dl Intake and Output 03/08/23 03/09/23 03/09/23 22:59 06:59 14:59 Intake Total 600 / 600 Output Total 0 / 1 0 / 1 218 / 218 Balance 0 / -1 0 / -1 382 / 382 Intake: Oral 600 / 600 Output: Urine 0 / 0 0 / 0 Peritoneal Dialysis 218 / 218 Ultrafiltration Amount Other: Weight 82.5 kg 84.2 kg Weight Measurement Method Standing Scale Patient Weight 03/10/23 06:59 Weight 84.2 kg Diagnostic Findings Telemetry: Sinus rhythm with occasional episodes of brief PAT PG Care Time/CCT Total # of Minutes Spent Total Time Spent with Patient: Total time spent is greater than 50% in coordination of care (as documented) at patient's floor/unit and/or counseling patient: Coding Level of Care Code 33687 INT INP/OBS CARE 3/75MIN Diagnoses Weakness R53.1 Congestive heart failure I50.9 CAD (coronary artery disease) I25.10 Associated angina: without angina Coronary Disease-Associated Artery/Lesion type: [place] artery [place] vs. transplanted heart: [place] heart Elevated troponin R74.8 Paroxysmal atrial fibrillation I48.0 Anticoagulant long-term use Z79.01 Hypertension I10 Hypertension type: essential hypertension Aortic stenosis I35.0 (3) CAD (coronary artery disease) Associated angina: without angina Coronary Disease-Associated Artery/Lesion type: [place] artery [place] vs. transplanted heart: [place] heart Qualified Code(s): I25.10 - Atherosclerotic heart disease of [place] coronary artery without angina pectoris (7) Hypertension Hypertension type: essential hypertension Qualified Code(s): I10 - Essential (primary) hypertension
--- NOTE | 2023-03-09 15:27 | Hospitalist Progress Note ---
Date of Service March 09, 2023 Assessment & Plan (1) NSTEMI (non-ST elevated myocardial infarction): Plan: Acute cardiology feels may be an event slightly preceding her hospitalization Patient with atypical symptoms echocardiogram with depressed ejection fraction and new regional wall motion abnormality seen Likely hold Eliquis for possible of cardiac catheterization early next week Currently on is on Plavix therapy chronically Blood pressures have been low we are holding isosorbide at this time as well as holding her metoprolol she remains bradycardic and hypotensive as of 513 (2) Uncontrolled diabetes mellitus, with long-term current use of insulin: Plan: Chronic/unstable - Variable BSG control - last a1c was in October and was 7.9% - She has been having issues with hypoglycemia which is why her lispro has been placed on hold - Based on calculation in hospital, was placed on Lantus 5 u BID and weight based coverage with meals - Pharmacy has been consulted for glycemic management, appreciate assistance (3) Paroxysmal atrial fibrillation: Plan: Chronic/stable - Currently examines in NSR -Current medications are on hold due to lower blood pressures transfer to telemetry to watch for arrhythmia (4) ESRD on peritoneal dialysis: Plan: Chronic/stable - Undergoes dialysis nightly - Discussed with Dr. Haile, formal consult placed, she will facilitate PD session we will check basilarly fluid for cell count and culture if needed - Continue Calcitriol and ProRenal tabs Remains hyponatremic (5) Hypomagnesemia: Plan: Acute/unstable replete as of 512 (6) Lactic acidemia: Plan: Secondary to her chronic renal failure and likely decreased perfusion (7) Nausea and vomiting: Plan: Acute on chronic/stable Now resolved consider if anginal equivalent Plan Ultimate plan may be for left heart cath early next week and former evaluation for valve replacement Remains in the hospital to facilitate those goals Admission and Anticipated Discharge Date Admission Date: March 07, 2023 Subjective Patient has no further complaints and actually feels okay. Nephrology feels that she is stable on PD with normalized potassium, and stable but high Cr Cardioology if concerned about need for workup and possible LHC especially with regional wall motion changes seen on echocardiogram Physical Exam Physical Exam: Patient is awake alert and appropriate Cardiac exam is distant although with her severe I cannot hear significant murmur there is a slight murmur this may be due to the progression or severity of her aortic stenosis Bibasilar lung exam shows rales Extremities are with trace edema Results & Data Results & Data Vital Signs (Past 12 Hours) Vital Signs Temp Pulse Pulse Pulse Resp BP Pulse Ox 03/09/23 11:48 98.4 F 67 18 107/60 97 03/09/23 07:00 74 03/09/23 07:20 97.3 F L 75 19 03/09/23 07:24 97.3 F L 75 19 114/68 93 03/09/23 03:57 97.9 F 72 16 91/59 L 93 O2 Del Method 03/09/23 11:48 Room Air 03/09/23 07:00 03/09/23 07:20 03/09/23 07:24 Room Air 03/09/23 03:57 Room Air Laboratory Results Reviewed CBC Reviewed PRP Reviewed troponin Discussed case with cardiology and nephrology PG Care Time/CCT Total # of Minutes Spent Total Time Spent with Patient: Total time spent is greater than 50% in coordination of care (as documented) at patient's floor/unit and/or counseling patient: Coding Level of Care Code 56757 SUB INP/OBS CARE 2/35MIN Diagnoses NSTEMI (non-ST elevated myocardial infarction) I21.4 Uncontrolled diabetes mellitus, with long-term current use of insulin E11.65; Z79.4 Paroxysmal atrial fibrillation I48.0 ESRD on peritoneal dialysis N18.6; Z99.2 Hypomagnesemia E83.42 Lactic acidemia E87.20 Nausea and vomiting R11.2
[2023-03-09] MEDS: LANTUS PER UNIT CHARGE SQ SCH (20:31)
[2023-03-10 06:52] LABS: Basophils # (auto) 0.11 K/uL (0-0.2); Basophils % (auto) 0.7 %; Eosinophils % (auto) 3.7 %; Hematocrit (blood only) 27.4 % (37.0-47.0); Hemoglobin 9.1 g/dl (12.0-16.0); Immature Granulocytes # (auto) 0.62 K/uL (0.01-0.20); Immature Granulocytes % (auto) 3.8 %; Lymphocytes # (auto) 1.25 K/uL (1.2-3.4); Lymphocytes % (auto) 7.6 %; Mean Corpuscular Hemoglobin 31.8 pg (25.0-34.0); Mean Corpuscular Hgb Conc 33.2 g/dL (32.0-36.0); Mean Corpuscular Volume 95.8 fL (80.0-100.0); Mean Platelet Volume 11.2 fL (9.4-12.4); Monocytes # (auto) 1.12 K/uL (0.11-0.59); Monocytes % (auto) 6.8 %; Neutrophils # (auto) 12.73 K/uL (1.40-6.50); Neutrophils % (auto) 77.4 %; Nucleated RBC # (auto) 0.08 K/uL (0-0.12); Nucleated RBC % (auto) 0.5 %; Platelet Count 339 K/uL (130-400); RDW Coefficient of Variation 15.7 % (11.5-14.5); RDW Standard Deviation 53.3 fL (36.4-46.3); Red Blood Count 2.86 M/uL (4.20-5.40); White Blood Count 16.43 K/ul (4.8-10.8)
[2023-03-10 07:27] LABS: Albumin Globulin Ratio 0.7 (0.9-2); Albumin Level 2.4 gm/dl (3.4-5.0); BUN Creatinine Ratio 6.1 (10-20); Bilirubin,Total 0.3 mg/dl (0.2-1.0); Calcium 8.3 mg/dl (8.6-10.3); Creatinine Clr Calc Pharmacy 5.8 ml/min; Est GFR (African American) 4.6 ml/min; Globulin 3.5 gm/dl (2.5-4.0); Potassium 3.9 mmol/L (3.5-5.1); Total Protein 5.9 gm/dl (6.0-8.3)
[2023-03-10] MEDS: INSULIN HUMAN REGULAR SC SCH ×4 (08:41→20:48)
[2023-03-10] MEDS: CLOPIDOGREL BISULFATE 75 MG TAB PO SCH (08:42)
[2023-03-10] MEDS: METOPROLOL TARTRATE 25 MG TAB PO SCH ×2 (08:42→20:51)
[2023-03-10] MEDS: allopurinoL 100 MG TAB PO SCH (08:42)
[2023-03-10] MEDS: CYANOCOBALAMIN (B-12) 500 MCG TABLET PO SCH (08:43)
[2023-03-10] MEDS: NEPHROCAPS PO SCH (08:43)
[2023-03-10] MEDS: CALCITRIOL 0.25 MCG CAPSULE PO SCH (08:43)
[2023-03-10] MEDS: POTASSIUM CHLORIDE CRTAB 20 MEQ TABCR PO SCH ×2 (08:44→20:51)
[2023-03-10] MEDS ORDERED: LANTUS PER UNIT CHARGE SQ SCH (09:00)
--- NOTE | 2023-03-10 09:55 | Cardiology Progress Note ---
Date of Service March 10, 2023 Assessment & Plan (1) Weakness: (2) Congestive heart failure: (3) CAD (coronary artery disease): (4) Elevated troponin: (5) Paroxysmal atrial fibrillation: (6) Anticoagulant long-term use: (7) Hypertension: (8) Aortic stenosis: Plan 1. Weakness: Although nonspecific I suspect her weakness is due to mild congestive heart failure as well as left ventricular dysfunction and possibly recent myocardial infarction, possibly progressive aortic stenosis. 2. Congestive heart failure: She does appeared to have mild congestive heart failure based on her chest x-ray and her symptoms, that can be controlled by dialysis and is not severe. 3. Coronary disease: She has known coronary artery disease, based on her echocardiogram she has new wall motion abnormalities and a decreased ejection fraction over the last 4 months. With these findings as well as her symptoms I suspect she has had an interim myocardial infarction. Both the electrocardiogram and the echocardiogram would suggest an inferior myocardial infarction. Even though she did not have typical chest pain this seems the most likely explanation for the findings. I do not believe those occurred on this admission, probably earlier, despite the elevated cardiac enzymes but perhaps she has had extension. We should consider catheterization, especially if we are going to evaluate her aortic valve. 4. Elevated troponin: Her troponin is quite elevated this admission, I do not t hink she should be taken urgently to the [facility] without an ST segment elevation myocardial infarction however it does suggest progressive coronary disease and we should plan catheterization this admission. 5. Atrial fibrillation: She has a history of paroxysmal atrial fibrillation but we have not identified that on this admission and it probably is not related to her presentation. It should be safe to hold her Eliquis for 48 hours prior to catheterization. 6. Anticoagulation: She is on Eliquis, she should remain on an anticoagulant over the long run but it should be safe to hold for her catheterization since she remains in sinus rhythm. 7. Hypertension: Her blood pressure has been quite labile with both high and low readings this admission, for the past 24 hours the blood pressure has been normal to low. 8. Aortic stenosis: She does have significant and possibly progressive aortic stenosis, now graded as severe. She also has wall motion abnormalities and a reduced left ventricular ejection fraction which could be due to coronary artery disease but I cannot exclude a contribution from her aortic stenosis. At this time it may be prudent to evaluate her aortic valve as well as her coronary arteries for possible valve replacement. I discussed catheterization at length with her and her daughter yesterday, I told her that we had planned on having this done Saturday with Dr. Mercer, she does not know Dr. Mercer but knows Dr. Del Cid and after a long conversation about the procedure, indications and possible findings she feels uncomfortable proceeding without talking to Dr. Del Cid. I have sent a message to him but he is not on-call this weekend (which I talked to the family about) and I do not know if he will respond or be able to see her. I had intended to keep her n.p.o. for possible catheterization tomorrow, however she would prefer not to do that and would like to have breakfast and then decide on her approach tomorrow. Admission and Anticipated Discharge Date Admission Date: March 07, 2023 Subjective She has no cardiovascular complaints today. She is sitting at her bedside. Physical Exam Physical Exam: Constitutional: Alert, cooperative and in no distress. HEENT: Unremarkable Neck: No jugular venous distention, carotid pulses are normal and equal bilaterally without bruits. She does have a transmitted murmur. Pulmonary: Clear to auscultation bilaterally. Cardiac: Regular rhythm with a grade 3/6 crescendo decrescendo murmur at the base, no gallop or rub. Abdomen: Soft, nontender with normal bowel sounds. Extremities: No edema. Distal pulses intact. Neurologic: No focal findings. Gait was not tested. Skin: No rash, ecchymoses or petechiae. Results & Data Vital Signs (Past 12 Hours) Vital Signs Temp Pulse Pulse Resp BP Pulse Ox O2 Del Method 03/10/23 07:00 67 03/10/23 08:40 36.7 C 82 19 03/10/23 07:23 36.7 C 82 19 112/71 98 Room Air 03/10/23 03:45 36.8 C 69 15 90/60 L 97 Room Air 03/09/23 23:00 74 03/09/23 23:51 36.6 C 68 16 93/64 L 96 Room Air Laboratory Results Cardiac Enzymes 03/10/23 Range/Units 05:50 AST 14 (13-39) U/L CBC 03/10/23 Range/Units 05:50 WBC 16.43 H (4.8-10.8) K/ul RBC 2.86 L (4.20-5.40) M/uL Hgb 9.1 L (12.0-16.0) g/dl Hct 27.4 L (37.0-47.0) % Plt Count 339 (130-400) K/uL Neut # (Auto) 12.73 H (1.40-6.50) K/uL Lymph # (Auto) 1.25 (1.2-3.4) K/uL [place] # (Auto) 1.12 H (0.11-0.59) K/uL Eos # (Auto) 0.60 H (0-0.50) K/uL Baso # (Auto) 0.11 (0-0.2) K/uL Comprehensive Metabolic Panel 03/10/23 Range/Units 05:50 Sodium 131 L (136-145) mmol/L Potassium 3.9 (3.5-5.1) mmol/L Chloride 95 L (98-107) mmol/L Carbon Dioxide 21 (21-32) mmol/L BUN 54 H (6-23) mg/dl Creatinine 8.92 H* (0.6-1.2) mg/dl Glucose 204 H (70-99(Fasting)) mg/dl Calcium 8.3 L (8.6-10.3) mg/dl AST 14 (13-39) U/L ALT 16 (7-52) U/L Alkaline Phosphatase 130 H (34-104) U/L Total Protein 5.9 L (6.0-8.3) gm/dl Albumin 2.4 L (3.4-5.0) gm/dl Intake and Output 03/09/23 03/10/23 03/10/23 22:59 06:59 14:59 Output Total 0 / 218 823 / 823 Balance 0 / 382 -823 / -823 Output: Urine 0 / 0 Peritoneal Dialysis 823 / 823 Ultrafiltration Amount Other: Other Intake Source Sips Sips Weight 84.2 kg 84.2 kg Weight Measurement Method Standing Scale Patient Weight 03/11/23 06:59 Weight 84.2 kg Diagnostic Findings Telemetry: Sinus rhythm with PACs PG Care Time/CCT Total # of Minutes Spent Total Time Spent with Patient: Total time spent is greater than 50% in coordination of care (as documented) at patient's floor/unit and/or counseling patient: Coding Level of Care Code 90347 SUB INP/OBS CARE MIN Diagnoses Weakness R53.1 Congestive heart failure I50.9 CAD (coronary artery disease) I25.10 Coronary Disease-Associated Artery/Lesion type: [place] artery [place] vs. transplanted heart: [place] heart Associated angina: without angina Elevated troponin R74.8 Paroxysmal atrial fibrillation I48.0 Anticoagulant long-term use Z79.01 Hypertension I10 Hypertension type: essential hypertension Aortic stenosis I35.0 (3) CAD (coronary artery disease) Coronary Disease-Associated Artery/Lesion type: [place] artery [place] vs. transplanted heart: [place] heart Associated angina: without angina Qualified Code(s): I25.10 - Atherosclerotic heart disease of [place] coronary artery without angina pectoris (7) Hypertension Hypertension type: essential hypertension Qualified Code(s): I10 - Essential (primary) hypertension
--- NOTE | 2023-03-10 14:16 | Nephrology Progress Note ---
Date of Service March 10, 2023 Assessment & Plan (1) ESRD on peritoneal dialysis: Plan: CCPD nightly. Rx 5 exchanges of 2.3 L. Remains hypervolemic with split bath. Will use 4.35% dextrose this evening. Tolerating PD well. Clearance acceptable. Orders for PD tonight have been entered into the EHR and reviewed with the dialysis Rx. Medications appropriately dosed for PD. (2) Fatigue: Plan: Chronic but progressive. Cardiac catheterization scheduled for tomorrow. Plan of care reviewed with cardiology, Aayna and her family this AM. (3) Aortic stenosis: Plan: Cardiology consultation pending. Catheterization scheduled for tomorrow. Appreciate cardiology consultation. Admission and Anticipated Discharge Date Admission Date: March 07, 2023 Subjective No acute events overnight. Ayana continues to feel well. LE edema has increased. Appetite is good. Tolerated HD last night without complications. Denies chest pain or palpitations. No shortness of breath. No fevers or chills. Ayana has been in bed or spending most of the day in her bedside chair. She continues to report little strength for walking or activities. Denies constipation. Review of Systems Review of Systems: All systems reviewed & are unremarkable except as noted in HPI & below Physical Exam Constitutional: WD/WN, vitals as above no acute distress Eyes: + anicteric sclerae Neck: normal visual inspection Thyroid: no thyromegaly Respiratory: no respiratory distress Auscultation: lungs clear to auscultation bilaterally Cardiovascular: Rate/Rhythm: regular rate and regular rhythm Heart Sounds: + murmur Extremities: + edema (b/l LE edema, R>L) Gastrointestinal (Abdomen): Inspection/Auscultation: abdomen normal to inspection Percussion/Palpation: abdomen soft; abdomen nontender Musculoskeletal: Extremities: extremities normal to inspection Skin: no rashes, warm and dry Neurologic: no focal motor deficits Psychiatric: Orientation: alert and oriented x 3 Affect: euthymic affect Results & Data Vital Signs (Past 12 Hours) Vital Signs Temp Pulse Pulse Resp BP Pulse Ox O2 Del Method 03/10/23 11:34 36.8 C 61 19 103/70 94 Room Air 03/10/23 07:00 67 03/10/23 08:40 36.7 C 82 19 03/10/23 07:23 36.7 C 82 19 112/71 98 Room Air 03/10/23 03:45 36.8 C 69 15 90/60 L 97 Room Air Laboratory Results Laboratory Results - last 24 hr 03/09/23 03/09/23 03/10/23 16:40 20:18 05:50 WBC 16.43 H RBC 2.86 L Hgb 9.1 L Hct 27.4 L MCV 95.8 MCH 31.8 MCHC 33.2 RDW Std Deviation 53.3 H RDW Coeff of Ekaterina 15.7 H Plt Count 339 MPV 11.2 Immature Gran % (Auto) 3.8 Neut % (Auto) 77.4 Lymph % (Auto) 7.6 [place] % (Auto) 6.8 Eos % (Auto) 3.7 Baso % (Auto) 0.7 Neut # (Auto) 12.73 H Lymph # (Auto) 1.25 [place] # (Auto) 1.12 H Eos # (Auto) 0.60 H Baso # (Auto) 0.11 Immature Gran # (Auto) 0.62 H Absolute Nucleated RBC 0.08 Nucleated RBC % (auto) 0.5 Sodium Potassium Chloride Carbon Dioxide Anion Gap BUN Creatinine Est Cr Clr Drug Dosing Est GFR ( Amer) Est GFR (Non-Af Amer) BUN/Creatinine Ratio Glucose POC Glucose 153 H 214 H Calcium Total Bilirubin AST ALT Alkaline Phosphatase Total Protein Albumin Globulin Albumin/Globulin Ratio 03/10/23 03/10/23 03/10/23 05:50 07:23 11:50 WBC RBC Hgb Hct MCV MCH MCHC RDW Std Deviation RDW Coeff of Ekaterina Plt Count MPV Immature Gran % (Auto) Neut % (Auto) Lymph % (Auto) [place] % (Auto) Eos % (Auto) Baso % (Auto) Neut # (Auto) Lymph # (Auto) [place] # (Auto) Eos # (Auto) Baso # (Auto) Immature Gran # (Auto) Absolute Nucleated RBC Nucleated RBC % (auto) Sodium 131 L Potassium 3.9 Chloride 95 L Carbon Dioxide 21 Anion Gap 15 H BUN 54 H Creatinine 8.92 H* Est Cr Clr Drug Dosing 5.8 Est GFR ( Amer) 4.6 Est GFR (Non-Af Amer) 4.0 BUN/Creatinine Ratio 6.1 L Glucose 204 H POC Glucose 173 H 114 H Calcium 8.3 L Total Bilirubin 0.3 AST 14 ALT 16 Alkaline Phosphatase 130 H Total Protein 5.9 L Albumin 2.4 L Globulin 3.5 Albumin/Globulin Ratio 0.7 L PG Care Time/CCT Total # of Minutes Spent Total Time Spent with Patient: Total time spent is greater than 50% in coordination of care (as documented) at patient's floor/unit and/or counseling patient: Coding Level of Care Code 23378 SUB INP/OBS CARE 3/50MIN Diagnoses ESRD on peritoneal dialysis N18.6; Z99.2 Fatigue R53.83 Aortic stenosis I35.0
--- NOTE | 2023-03-10 16:25 | Hospitalist Progress Note ---
Date of Service March 10, 2023 Assessment & Plan (1) NSTEMI (non-ST elevated myocardial infarction): Plan: Acute cardiology feels may be an event slightly preceding her hospitalization Patient with atypical symptoms echocardiogram with depressed ejection fraction and new regional wall motion abnormality seen Have held Eliquis for possible of cardiac catheterization early next week Currently on is on Plavix therapy chronically Blood pressures have been low we are holding isosorbide at this time as well as holding her metoprolol she remains bradycardic and hypotensive as of 513 (2) Uncontrolled diabetes mellitus, with long-term current use of insulin: Plan: Chronic/unstable - Variable BSG control - last a1c was in October and was 7.9% - She has been having issues with hypoglycemia which is why her lispro has been placed on hold - Based on calculation in hospital, was placed on Lantus 5 u BID and weight based coverage with meals - Pharmacy has been consulted for glycemic management, appreciate assistance (3) Paroxysmal atrial fibrillation: Plan: Chronic/stable - Currently examines in NSR -Current medications are on hold due to lower blood pressures transfer to telemetry to watch for arrhythmia (4) ESRD on peritoneal dialysis: Plan: Chronic/stable - Undergoes dialysis nightly - Discussed with Dr. Haile, formal consult placed, she will facilitate PD session we will check basilarly fluid for cell count and culture if needed - Continue Calcitriol and ProRenal tabs Remains hyponatremic (5) Hypomagnesemia: Plan: Acute/unstable replete as of 512 (6) Lactic acidemia: Plan: Secondary to her chronic renal failure and likely decreased perfusion (7) Nausea and vomiting: Plan: Acute on chronic/stable Now resolved consider if anginal equivalent Plan Ultimate plan may be for left heart cath early next week and former evaluation for valve replacement Remains in the hospital to facilitate those goals Admission and Anticipated Discharge Date Admission Date: March 07, 2023 Subjective this pt has no further symptoms, she did speak to cardiology and will proceed to diagnostic cath on 03/11/23 Physical Exam Physical Exam: Patient is awake alert and appropriate Cardiac exam is distant although with her severe I cannot hear significant murmur there is a slight murmur this may be due to the progression or severity of her aortic stenosis Bibasilar lung exam shows rales Extremities are with trace edema Results & Data Results & Data Vital Signs (Past 12 Hours) Vital Signs Temp Pulse Pulse Resp BP Pulse Ox Pulse Ox 05/14/23 15:36 97.9 F 82 19 121/75 97 03/10/23 15:00 97 03/10/23 11:34 98.2 F 61 19 103/70 94 03/10/23 07:00 67 03/10/23 08:40 98.1 F 82 19 03/10/23 07:23 98.1 F 82 19 112/71 98 O2 Del Method O2 Del Method 03/10/23 15:36 Room Air 03/10/23 15:00 Room Air 03/10/23 11:34 Room Air 03/10/23 07:00 03/10/23 08:40 03/10/23 07:23 Room Air Laboratory Results review cbc review prp PG Care Time/CCT Total # of Minutes Spent Total Time Spent with Patient: Total time spent is greater than 50% in coordination of care (as documented) at patient's floor/unit and/or counseling patient: Coding Level of Care Code 80625 SUB INP/OBS CARE 2/35MIN Diagnoses NSTEMI (non-ST elevated myocardial infarction) I21.4 Uncontrolled diabetes mellitus, with long-term current use of insulin E11.65; Z79.4 Paroxysmal atrial fibrillation I48.0 ESRD on peritoneal dialysis N18.6; Z99.2 Hypomagnesemia E83.42 Lactic acidemia E87.20 Nausea and vomiting R11.2
--- NOTE | 2023-03-10 20:35 | Electrocardiogram Report ---
Test Reason : Blood Pressure : / mmHG Vent. Rate : 075 BPM Atrial Rate : 075 BPM P-R Int : 150 ms QRS Dur : 094 ms QT Int : 472 ms P-R-T Axes : 047 -19 151 degrees QTc Int : 527 ms Sinus rhythm with Premature atrial complexes Left ventricular hypertrophy with repolarization abnormality Cannot rule out Septal infarct , age undetermined Inferior infarct (cited on or before 07-MAR-2023) Prolonged QT Abnormal ECG When compared with ECG of 08-MAR-2023 08:39, (unconfirmed) Premature atrial complexes are now Present Confirmed by Luis Aparicio ([id number]) on 03/10/2023 8:34:55 PM Referred By: REFERRED SELF Confirmed By:Luis Aparicio
[2023-03-10] MEDS: LANTUS PER UNIT CHARGE SQ SCH (20:48)
[2023-03-10] MEDS ORDERED: METOPROLOL TARTRATE 1 MG/ML VIAL IV STA (23:02)
[2023-03-10] MEDS: ACETAMINOPHEN 325 MG TAB PO PRN (23:10)
[2023-03-10] MEDS: DICYCLOMINE HCL 10 MG CAP PO PRN (23:55)
[2023-03-11 00:35] LABS: Albumin Level 2.8 gm/dl (3.4-5.0); BUN Creatinine Ratio 5.9 (10-20); Calcium 8.9 mg/dl (8.6-10.3); Creatinine Clr Calc Pharmacy 5.8 ml/min; Est GFR (African American) 4.6 ml/min; Est GFR (Non-African American) 3.9 ml/min; Magnesium 1.9 mg/dl (1.7-2.4); Phosphorus 6.6 mg/dl (2.5-4.9); Potassium 3.7 mmol/L (3.5-5.1)
[2023-03-11] MEDS ORDERED: SODIUM CHLORIDE 0.9% 1000ML 500 ML IV ONE (04:34)
[2023-03-11] MEDS ORDERED: METOPROLOL TARTRATE 1 MG/ML VIAL IV STA (04:34)
[2023-03-11] MEDS ORDERED: ALBUMIN 25% 100 mL 25 GM/100 ML VIAL IV ONE (04:36)
--- NOTE | 2023-03-11 06:24 | Electrocardiogram Report ---
Test Reason : Blood Pressure : / mmHG Vent. Rate : 072 BPM Atrial Rate : 072 BPM P-R Int : 150 ms QRS Dur : 098 ms QT Int : 424 ms P-R-T Axes : 054 -19 145 degrees QTc Int : 464 ms Sinus rhythm with Premature atrial complexes Left ventricular hypertrophy with repolarization abnormality Cannot rule out Septal infarct (cited on or before 13-DEC-2022) Abnormal ECG When compared with ECG of 09-MAR-2023 05:34, (unconfirmed) ST no longer depressed in Anterior leads Confirmed by Luis Aparicio ([id number] on 03/11/2023 6:24:02 AM Referred By: REFERRED SELF Confirmed By:Luis Aparicio
[2023-03-11 06:47] LABS: Hematocrit (blood only) 26.5 % (37.0-47.0); Hemoglobin 8.9 g/dl (12.0-16.0); Mean Corpuscular Hemoglobin 31.7 pg (25.0-34.0); Mean Corpuscular Hgb Conc 33.6 g/dL (32.0-36.0); Mean Corpuscular Volume 94.3 fL (80.0-100.0); Mean Platelet Volume 11.3 fL (9.4-12.4); Nucleated RBC # (auto) 0.06 K/uL (0-0.12); Nucleated RBC % (auto) 0.3 %; Platelet Count 373 K/uL (130-400); RDW Coefficient of Variation 15.7 % (11.5-14.5); RDW Standard Deviation 52.1 fL (36.4-46.3); Red Blood Count 2.81 M/uL (4.20-5.40); White Blood Count 17.99 K/ul (4.8-10.8)
[2023-03-11 07:07] LABS: BUN Creatinine Ratio 5.7 (10-20); Calcium 8.6 mg/dl (8.6-10.3); Creatinine Clr Calc Pharmacy 6.5 ml/min; Est GFR (African American) 5.2 ml/min; Est GFR (Non-African American) 4.5 ml/min; Phosphorus 5.8 mg/dl (2.5-4.9); Potassium 3.9 mmol/L (3.5-5.1)
[2023-03-11] MEDS ORDERED: LANTUS PER UNIT CHARGE SQ ONE (07:15)
--- NOTE | 2023-03-11 07:40 | Hospitalist Progress Note ---
Date of Service March 11, 2023 Assessment & Plan (1) NSTEMI (non-ST elevated myocardial infarction): Plan: Acute cardiology feels may be an event slightly preceding her hospitalization Patient with atypical symptoms echocardiogram with depressed ejection fraction and new regional wall motion abnormality seen Cardiac catheterization performed 515 shows multivessel disease with recommendation from cardiology for consideration of revascularization and addressing valve at that time Episodes of SVT overnight with hypotension rescued by fluids and albumin Currently on is on Plavix therapy chronically Blood pressures have been low we are holding isosorbide at this time as well as holding her metoprolol she remains bradycardic and hypotensive (2) Uncontrolled diabetes mellitus, with long-term current use of insulin: Plan: Chronic/unstable - Variable BSG control - last a1c was in October and was 7.9% - She has been having issues with hypoglycemia which is why her lispro has been placed on hold - Based on calculation in hospital, was placed on Lantus 5 u BID and weight based coverage with meals - Pharmacy has been consulted for glycemic management, appreciate assistance (3) Paroxysmal atrial fibrillation: Plan: Chronic/stable - Currently examines in NSR -Current medications are on hold due to lower blood pressures (4) ESRD on peritoneal dialysis: Plan: Chronic/stable - Undergoes dialysis nightly - Discussed with Dr. Haile, formal consult placed, she will facilitate PD session we will check basilarly fluid for cell count and culture if needed - Continue Calcitriol and ProRenal tabs Remains hyponatremic (5) Hypomagnesemia: Plan: Acute/unstable replete (6) Lactic acidemia: Plan: Secondary to her chronic renal failure and likely decreased perfusion (7) Nausea and vomiting: Plan: Acute on chronic/stable Now resolved consider if anginal equivalent Plan Patient will need to be referred to tertiary care center for consideration revascularization and to address her aortic stenosis Admission and Anticipated Discharge Date Admission Date: March 07, 2023 Subjective Patient underwent cardiac catheterization 03/11/23 Found to have multivessel disease. recommendation to tertirary care for revascularization, pt considering [facility] SVT with hypotension overnight with dialysis requiring IV fluids, albumin Post procedure reports some fatigue. Denies chest pain. Repeated brief episodes of AT/AF with heart rates up to the 150s on telemetry. lower blood pressure limits b fartun use Physical Exam Physical Exam: Patient is awake alert appropriate she has no chest pain Events overnight noted of SVT with lower blood pressures associated with dialysis Electrolytes are replete today Card exam is regular Results & Data Results & Data Vital Signs (Past 12 Hours) Vital Signs Temp Pulse Pulse Resp BP BP Pulse Ox 03/11/23 07:30 97.7 F 67 16 102/64 94 03/11/23 03:41 98.1 F 71 20 95/62 L 97 03/11/23 00:42 80 03/10/23 23:09 117 H 121/66 03/10/23 22:53 98.6 F 78 20 108/69 98 O2 Del Method 03/11/23 07:30 Room Air 03/11/23 03:41 Room Air 03/11/23 00:42 03/10/23 23:09 03/10/23 22:53 Room Air Laboratory Results Reviewed CBC Reviewed PRP PG Care Time/CCT Total # of Minutes Spent Total Time Spent with Patient: Total time spent is greater than 50% in coordination of care (as documented) at patient's floor/unit and/or counseling patient: Coding Level of Care Code 01424 SUB INP/OBS CARE 3/50MIN Diagnoses NSTEMI (non-ST elevated myocardial infarction) I21.4 Uncontrolled diabetes mellitus, with long-term current use of insulin E11.65; Z79.4 Paroxysmal atrial fibrillation I48.0 ESRD on peritoneal dialysis N18.6; Z99.2 Hypomagnesemia E83.42 Lactic acidemia E87.20 Nausea and vomiting R11.2
[2023-03-11] MEDS ORDERED: niCARdipine HCL INJ 2.5 MG/ML 10 ML AMP ONE (08:01)
[2023-03-11] MEDS ORDERED: HEPARIN (PORCINE) 1000 UNIT/ML 10 ML (CATH LAB USE ONLY) ONE (08:01)
[2023-03-11] MEDS ORDERED: MIDAZOLAM HCL 1 MG/ML 2ML VIAL ONE (08:02)
[2023-03-11] MEDS ORDERED: fentaNYL citrate PF 100 MCG/2 ML VIAL ONE (08:02)
[2023-03-11] MEDS ORDERED: NITROGLYCERIN/D5W 100MCG/ML 20ML SYR ONE (08:02)
--- NOTE | 2023-03-11 08:06 | Pre Anesthesia Assessment ---
Date of Service March 11, 2023 Pre Sedation Assessment Vital Signs Temp Pulse Pulse Pulse Resp BP BP 03/11/23 07:30 71 03/11/23 07:44 72 16 104/68 03/11/23 07:30 97.7 F 67 16 102/64 03/11/23 03:41 98.1 F 71 20 95/62 L 03/11/23 00:42 80 03/10/23 23:09 117 H 121/66 03/10/23 22:53 98.6 F 78 20 108/69 03/10/23 19:05 97.5 F L 76 18 115/74 03/10/23 17:44 97.9 F 82 19 121/75 03/10/23 15:36 97.9 F 82 19 121/75 03/10/23 15:00 03/10/23 11:34 98.2 F 61 19 103/70 03/10/23 08:40 98.1 F 82 19 Pulse Ox Pulse Ox O2 Del Method O2 Del Method 03/11/23 07:30 03/11/23 07:44 98 Room Air 03/11/23 07:30 94 Room Air 03/11/23 03:41 97 Room Air 03/11/23 00:42 03/10/23 23:09 03/10/23 22:53 98 Room Air 03/10/23 19:05 97 Room Air 03/10/23 17:44 03/10/23 15:36 97 Room Air 03/10/23 15:00 97 Room Air 03/10/23 11:34 94 Room Air 03/10/23 08:40 Cardiovascular RRR, no murmur, no edema Respiratory normal respiratory effort, lungs clear to auscultation Pre-Sedation Airway Assessment Smoking Status: Former smoker Hx Sleep Apnea: No Hx Difficult Intubation: No Short, Thick Neck: No Thyromental Distance: > or= 3.5 Finger Breadths Oral Cavity: + WNL Mallampati Class: II ASA: ASA3 NPO Status Date of Last Intake of Fluids: 03/10/23 Time of Last Intake of Fluids: 23:00 Date of Last Intake of Solid Food: 03/10/23 Time of Last Intake of Solid Foods: 23:00 Procedure Planning Contraindications for Sedation: none Current Medications Reviewed: Yes Notes The planned sedation has been discussed with the patient. Informed Consent was obtained. I have identified the patient, determined the appropriateness of sedation and have assessed the patient immediately prior to the procedure. All medicine(s) and interventions are by my order.
--- NOTE | 2023-03-11 08:54 | Electrocardiogram Report ---
Test Reason : Blood Pressure : / mmHG Vent. Rate : 129 BPM Atrial Rate : 197 BPM P-R Int : 000 ms QRS Dur : 094 ms QT Int : 288 ms P-R-T Axes : 000 -24 147 degrees QTc Int : 421 ms Sinus rhythm with premature atrial beats and SVT Voltage criteria for left ventricular hypertrophy with repolarization abnormality Marked ST abnormality, possible lateral subendocardial injury Abnormal ECG When compared with ECG of 10-MAR-2023 06:11, (unconfirmed) Vent. rate has increased BY 57 BPM T wave inversion less evident in Lateral leads Confirmed by Luis Alberto Wilson ([id number] on 03/11/2023 8:53:37 AM Referred By: REFERRED SELF Confirmed By:Zurdo Wilson
[2023-03-11] MEDS ORDERED: LANTUS PER UNIT CHARGE SQ SCH (09:00)
[2023-03-11] MEDS: CYANOCOBALAMIN (B-12) 500 MCG TABLET PO SCH (09:14)
[2023-03-11] MEDS: allopurinoL 100 MG TAB PO SCH (09:14)
[2023-03-11] MEDS: DICYCLOMINE HCL 10 MG CAP PO PRN ×2 (09:14→21:07)
[2023-03-11] MEDS: NEPHROCAPS PO SCH (09:14)
[2023-03-11] MEDS: CLOPIDOGREL BISULFATE 75 MG TAB PO SCH (09:14)
[2023-03-11] MEDS: METOPROLOL TARTRATE 25 MG TAB PO SCH ×2 (09:14→21:09)
[2023-03-11] MEDS: CALCITRIOL 0.25 MCG CAPSULE PO SCH (09:14)
[2023-03-11] MEDS: DICLOFENAC SOD 1% GEL 100 GM TUBE EXT SCH ×4 (09:15→21:09)
[2023-03-11] MEDS: INSULIN HUMAN REGULAR SC SCH ×4 (09:15→21:39)
[2023-03-11] MEDS: POTASSIUM CHLORIDE CRTAB 20 MEQ TABCR PO SCH ×2 (09:16→21:24)
--- NOTE | 2023-03-11 09:17 | Post Anesthesia Assessment ---
Date of Service March 11, 2023 Post Sedation Assessment Vital Signs Temp Pulse Pulse Pulse Resp BP BP 03/11/23 07:30 71 03/11/23 07:44 72 16 104/68 03/11/23 07:30 97.7 F 67 16 102/64 03/11/23 03:41 98.1 F 71 20 95/62 L 03/11/23 00:42 80 03/10/23 23:09 117 H 121/66 03/10/23 22:53 98.6 F 78 20 108/69 03/10/23 19:05 97.5 F L 76 18 115/74 03/10/23 17:44 97.9 F 82 19 121/75 03/10/23 15:36 97.9 F 82 19 121/75 03/10/23 15:00 03/10/23 11:34 98.2 F 61 19 103/70 Pulse Ox Pulse Ox O2 Del Method O2 Del Method 03/11/23 07:30 03/11/23 07:44 98 Room Air 03/11/23 07:30 94 Room Air 03/11/23 03:41 97 Room Air 03/11/23 00:42 03/10/23 23:09 03/10/23 22:53 98 Room Air 03/10/23 19:05 97 Room Air 03/10/23 17:44 03/10/23 15:36 97 Room Air 03/10/23 15:00 97 Room Air 03/10/23 11:34 94 Room Air Recovery Score Activity: Moves 4 extremities Respiration: Deep Breath/Cough Circulation: +/-20% PreAnes Value Consciousness: Fully Awake Oxygen Saturation: O2 needed for >90% Discharge Sedation Level of Care: Fast Track Phase II Post Sedation Plan On clinical assessment, the patient appears to have tolerated the sedation without complications. Patient is recovering as anticipated. Patient will continue to be monitored by nursing and may be discharged when sedation discharge criteria are met per below protocol. Upon Completions of procedure up to 15 minutes continue every 5 minute vital signs and the P.A.R. score; then discharge to a Phase I or Fast Track to Phase II per the following guidelines: * Discharge Patient to appropriate Phase II area if PAR is 8 or greater or return to pre- procedure baseline. The post - procedure orders will be as directed. * If PAR score is less than 8 or not return to pre-procedure baseline then patient will follow Phase I monitoring till PAR is reached for Phase II. The Phase I may be done in procedure room or may call to secure a Phase I area. * If naloxone or flumazenil are used for reversal, hold in Phase I for continued monitoring from when last reversal dose was given for a minimum of 60 minutes or longer pending the nurse and/or physician discretion of patient condition before discharge to Phase II. Please call the Sedation Physician to re-evaluate and complete post-note for discharge to Phase II area. Do NOT discharge from procedure sedation or Phase 1 until post- sedation evaluation note is complete by procedure /sedation MD Sedation Discharge Instructions to be given to the patient at discharge to home.
--- NOTE | 2023-03-11 09:22 | Nephrology Progress Note ---
Date of Service March 11, 2023 Assessment & Plan (1) ESRD on peritoneal dialysis: Plan: CCPD nightly. Rx 5 exchanges of 2.3 L. Improved UF with 2.5% dextrose overnight. Tolerating PD well. Clearance acceptable. Orders for PD tonight have been entered into the EHR and reviewed with the dialysis Rx. Medications appropriately dosed for PD. (2) Fatigue: Plan: Chronic but progressive. Cardiac catheterization today. (3) Aortic stenosis: Plan: Catheterization today. Appreciate cardiology consultation. Volume status improving. Tolerated increased UF. Admission and Anticipated Discharge Date Admission Date: March 07, 2023 Subjective No acute events overnight. Ayana feels well this AM. 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 She tolerated PD overnight without complications. Improved UF. Overall, she feels well and was in good spirits. Review of Systems Review of Systems: All systems reviewed & are unremarkable except as noted in HPI & below Physical Exam Constitutional: WD/WN, vitals as above no acute distress Eyes: + anicteric sclerae Neck: normal visual inspection Thyroid: no thyromegaly Respiratory: no respiratory distress Auscultation: lungs clear to auscultation bilaterally Cardiovascular: Rate/Rhythm: regular rate and regular rhythm Heart Sounds: + murmur Extremities: + edema (b/l LE edema, R>L) Gastrointestinal (Abdomen): Inspection/Auscultation: abdomen normal to inspection Percussion/Palpation: abdomen soft; abdomen nontender Musculoskeletal: Extremities: extremities normal to inspection Skin: no rashes, warm and dry Neurologic: no focal motor deficits Psychiatric: Orientation: alert and oriented x 3 Results & Data Vital Signs (Past 12 Hours) Vital Signs Temp Pulse Pulse Resp BP BP Pulse Ox 03/11/23 07:30 71 03/11/23 07:44 72 16 104/68 98 03/11/23 07:30 36.5 C 67 16 102/64 94 03/11/23 03:41 36.7 C 71 20 95/62 L 97 03/11/23 00:42 80 03/10/23 23:09 117 H 121/66 03/10/23 22:53 37.0 C 78 20 108/69 98 O2 Del Method 03/11/23 07:30 03/11/23 07:44 Room Air 03/11/23 07:30 Room Air 03/11/23 03:41 Room Air 03/11/23 00:42 03/10/23 23:09 03/10/23 22:53 Room Air Laboratory Results Laboratory Results - last 24 hr 03/10/23 03/10/23 03/10/23 11:50 16:22 20:14 WBC RBC Hgb Hct MCV MCH MCHC RDW Std Deviation RDW Coeff of Ekaterina Plt Count MPV Absolute Nucleated RBC Nucleated RBC % (auto) Sodium Potassium Chloride Carbon Dioxide Anion Gap BUN Creatinine Est Cr Clr Drug Dosing Est GFR ( Amer) Est GFR (Non-Af Amer) BUN/Creatinine Ratio Glucose POC Glucose 114 H 198 H 310 H* Calcium Phosphorus Magnesium Iron TIBC Unsaturated IBC Transferrin % Sat Ferritin Albumin 03/10/23 03/11/23 03/11/23 23:49 06:12 06:12 WBC 17.99 H RBC 2.81 L Hgb 8.9 L Hct 26.5 L MCV 94.3 MCH 31.7 MCHC 33.6 RDW Std Deviation 52.1 H RDW Coeff of Ekaterina 15.7 H Plt Count 373 MPV 11.3 Absolute Nucleated RBC 0.06 Nucleated RBC % (auto) 0.3 Sodium 132 L 133 L Potassium 3.7 3.9 Chloride 93 L 96 L Carbon Dioxide 22 21 Anion Gap 17 H 16 H BUN 53 H 46 H Creatinine 8.95 H* 8.01 H* D Est Cr Clr Drug Dosing 5.8 6.5 Est GFR ( Amer) 4.6 5.2 Est GFR (Non-Af Amer) 3.9 4.5 BUN/Creatinine Ratio 5.9 L 5.7 L Glucose 217 H 291 H POC Glucose Calcium 8.9 8.6 Phosphorus 6.6 H 5.8 H Magnesium 1.9 Iron 37 TIBC 150 L Unsaturated IBC 113 L Transferrin % Sat 25 Ferritin 1480.0 H Albumin 2.8 L 3.0 L 03/11/23 07:06 WBC RBC Hgb Hct MCV MCH MCHC RDW Std Deviation RDW Coeff of Ekaterina Plt Count MPV Absolute Nucleated RBC Nucleated RBC % (auto) Sodium Potassium Chloride Carbon Dioxide Anion Gap BUN Creatinine Est Cr Clr Drug Dosing Est GFR ( Amer) Est GFR (Non-Af Amer) BUN/Creatinine Ratio Glucose POC Glucose 241 H Calcium Phosphorus Magnesium Iron TIBC Unsaturated IBC Transferrin % Sat Ferritin Albumin PG Care Time/CCT Total # of Minutes Spent Total Time Spent with Patient: Total time spent is greater than 50% in coordination of care (as documented) at patient's floor/unit and/or counseling patient: Coding Level of Care Code 05691 SUB INP/OBS CARE 3/50MIN Diagnoses ESRD on peritoneal dialysis N18.6; Z99.2 Fatigue R53.83 Aortic stenosis I35.0
[2023-03-11] MEDS: LIDOCAINE 5% 1 PATCH TD SCH (09:47)
--- NOTE | 2023-03-11 10:16 | Pharmacy Report ---
Pharmacy Glycemic Short Note 2 - Date of Service March 11, 2023 - Glycemic Short BSG Results (Last 24 hours): 03/10/23 03/10/23 03/10/23 11:50 16:22 20:14 Glucose POC Glucose 114 H 198 H 310 H* 03/10/23 03/11/23 03/11/23 23:49 06:12 07:06 Glucose 217 H 291 H POC Glucose 241 H OUTPATIENT ANTIDIABETIC REGIMEN: * Lantus 5 units SC HS w/ dialysis (PD) * Per endocrine note on 02/13/23 - Lantus can be increased to 8-10 units HS if hyperglycemic and using higher dextrose solution w/ consideration to switch to NPH * Bolus insulin on hold * Patient reports not taking insulin in past 4-5 days Patient's A1c = 7.9% (11/10/22) * However, this result is likely somewhat unreliable in ESRD patients d/t interactions between the A1c analyzing technique and high levels of urea in ESRD, reduced RBC life span, iron deficiency anemia, and EPO administration. HbA1c > 7.5% in ESRD patient may overestimate the extent of hyperglycemia in ESRD patients. ASSESSMENT: 03/11/23: * BSGs labile yesterday, ranging 114-310 mg/dL * Received 27 units of insulin 12 units of basal and 15 units of prandial/correctional bolus * NPO after midnight for cardiac catheterization today, fasting BSG of 241 mg/dL * Will likely increase basal insulin today and re-tighten Novolog parameters * Diet reordered with lunch 03/08/23: * SE is a 73 year old female who presented to ED on 03/07/23 for evaluation of nausea and vomiting * Patient reports not feeling well over past 4-5 days and has not been taking her insulin * Hyperglycemic on admission - BSG of 277 mg/dL * Patient with ESRD maintained with peritoneal dialysis (continuing while inpatient) * Prior inpatient data suggests increased insulin needs from outpatient, but will proceed with caution in initial dosing PLAN FOR INPATIENT GLYCEMIC CONTROL: * Hold outpatient oral diabetes medications * Basal insulin * Lantus 7 units SC daily * Lantus scale 0-5 units SC HS * Bolus insulin * NovoLog per scale ACHS or Q6hrs while NPO * Goal Range: Low 120 mg/dL - High 150 mg/dL * Correction Factor: 30 mg/dL/unit * Nutritional / Prandial insulin per carb ratio of 1 unit per 10 grams CHO consumed
--- NOTE | 2023-03-11 14:18 | Cardiac Catheterization ---
[facility] Data: Belt Sander Stone Cardiac Status Clinical evaluation leading to the procedure CAD Presenation: Non STEMI Anginal Classification: CCS IV Diagnostic Physicians Name: Luis Alberto Mercer MD Closure Device Recommendations: CABG and Valve Replacement Cardiac Cath Procedure Full Procedure Date March 11, 2023 Pre-Procedure Diagnosis Pre-Procedure Diagnosis: Acute Coronary Syndrome AUC Score AUC Score: 8 Post-Procedure Diagnosis Post-Procedure Diagnosis: Severe CAD Procedure(s) Performed Procedure(s) Performed: Coronary Angiography and Ultrasound Guided Vascular Access Meeting Manager Luis Alberto Mercer MD Policy Advisor(s) Mike Estimated Blood Loss Estimated Blood Loss: 10 Medication(s) Medication(s): Fentanyl, Heparin, Lidocaine 1%, Nicardipine, Nitroglycerin and Versed Summary of Findings Indication: NSTEMI, severe aortic stenosis, new LV dysfunction with inferior wall motion abnormality Access: 6 Fr left radial artery under ultrasound guidance Catheters: JL 3.5, JR4 Findings: LM -calcified, normal caliber, no significant disease LAD -calcified, medium caliber, proximal 40% diffuse disease, 90% mid LAD stenosis at takeoff of D2. LAD stenosis extends into D2 with 50% ostial narrowing. Distal LAD without significant disease and wraps around apex. Circumflex -medium caliber, 70 to 80% mid stenosis just prior to previous stent at takeoff of small OM 2. Stent widely patent. Medium OM1 with 90% proximal stenosis. Small OM2 95% ostial stenosis. RCA -medium caliber dominant, 70% proximal in-stent restenosis, remainder of mid to distal vessel without significant disease. Arterial Closure: TR band Summary: 1. Severe multivessel coronary artery disease -90% mid LAD at bifurcation with D2. D2 50% ostial 75% mid circumflex just proximal to patent stent. Small to medium OM1 90% proximal, small OM2 95% ostial. 70% proximal RCA in-stent restenosis 2. Severe by echo Recommendations: Recommend referral to tertiary center for consideration of SAVR plus CABG versus TAVR plus PCI. Hemodynamics Rest Ao:: 133/60/87 Final Ao: 136/51/83 LV: -- Recommendations Recommendations: CABG and Valve Replacement Specimens Specimens: None Radiation Exposure (mGy) 1201 Contrast (mls) 60 Anesthesia moderate 5914-1326 Procedural Complication(s) None Disposition PCU I attest to the content of the Intraoperative Record and any orders documented therein. Any exceptions are noted below. [facility] Card Cath Procedure Codes Cardiac Catheterization Procedure 1: Cardiovascular Cath Procedures: 72565 Coronaries and LHC (+/-LV) Therapeutic Services & Ancillary Procedure 2: Cardiovascular Tx and Anc Procedures: 20383 Ultrasonic Guidance Vascular Access Moderate Sedation Procedure 1: Sedation/Anesthesia: 42983 Mod Sedation by the same physician;Init15 Min Child Age 5 & Up PG Care Time/CCT Total # of Minutes Spent Total Time Spent with Patient: Total time spent is greater than 50% in coordination of care (as documented) at patient's floor/unit and/or counseling patient:
[2023-03-11] MEDS ORDERED: EPOETIN ALFA 20,000 UNITS/ML VIAL SQ ONE (17:00)
--- NOTE | 2023-03-11 17:11 | Cardiology Progress Note ---
Date of Service March 11, 2023 Assessment & Plan (1) CAD (coronary artery disease): Plan: NSTEMImultivessel CAD (90% mid LAD, 75% mid circumflex, 70% proximal RCA, 90% proximal OM1). 2. Severe aortic stenosis 3. 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 Paroxysmal AF, ATon Eliquis 5. End-stage renal disease on peritoneal dialysis 6. Type 2 diabetes 7. Anemia Patient has complex cardiac disease that will require further evaluation/ management at a tertiary center. With her multivessel CAD, LV dysfunction and diabetes feel CABG should be at least considered. Ultimately may not be a surgical candidate in which case would need TAVR and at least PCI of LAD. With presenting NSTEMI would favor inpatient evaluation. Long discussion with patient and family regarding options. Considering options, may be agreeable with transfer to [facility]. Can resume Eliquis tonight while deciding on options (question heparin allergy) Discontinue clopidogrel, start aspirin Continue current metoprolol 12.5 twice daily, if increased AF with RVR will consider starting amnio We will continue to follow Admission and Anticipated Discharge Date Admission Date: March 07, 2023 Subjective Patient underwent cardiac catheterization earlier this morning. Found to have multivessel disease. SVT with hypotension overnight with dialysis requiring IV fluids, albumin Post procedure reports some fatigue. Denies chest pain. Repeated brief episodes of AT/AF with heart rates up to the 150s on telemetry. Review of Systems Review of Systems: All systems reviewed & are unremarkable except as noted in HPI & below Physical Exam Physical Exam: General: Comfortable, HEENT: Sclerae anicteric Lungs: Clear to auscultation bilaterally, Cardiac: Regular rate and rhythm, 3/6 systolic ejection murmur Vascular: Left radial artery access site with no ecchymosis, hematoma. Distal sensation intact Abdomen: Soft, nontender Extremities: Well perfused, no peripheral edema Neuro: Nonfocal Psych: Alert orient x3, normal affect and mood Results & Data Vital Signs (Past 12 Hours) Vital Signs Temp Pulse Pulse Resp BP BP Pulse Ox 03/11/23 16:07 97.7 F 71 18 90/54 L 99 03/11/23 13:10 67 91/56 L 03/11/23 11:55 97.5 F L 103 H 14 80/58 L 93 03/11/23 07:30 97.7 F 67 16 03/11/23 07:30 71 03/11/23 07:44 72 16 104/68 98 03/11/23 07:30 97.7 F 67 16 102/64 94 O2 Del Method 03/11/23 16:07 Room Air 03/11/23 13:10 03/11/23 11:55 Room Air 03/11/23 07:30 03/11/23 07:30 03/11/23 07:44 Room Air 03/11/23 07:30 Room Air PG Care Time/CCT Total # of Minutes Spent Total Time Spent with Patient: Total time spent is greater than 50% in coordination of care (as documented) at patient's floor/unit and/or counseling patient: Coding Level of Care Code 39758 SUB INP/OBS CARE 3/50MIN Diagnoses CAD (coronary artery disease) I25.10 Coronary Disease-Associated Artery/Lesion type: [place] artery [place] vs. transplanted heart: [place] heart Associated angina: without angina (1) CAD (coronary artery disease) Coronary Disease-Associated Artery/Lesion type: [place] artery [place] vs. transplanted heart: [place] heart Associated angina: without angina Qualified Code(s): I25.10 - Atherosclerotic heart disease of [place] coronary artery without angina pectoris
[2023-03-11] MEDS: ACETAMINOPHEN 325 MG TAB PO PRN (21:06)
[2023-03-11] MEDS: APIXABAN 2.5 MG TAB PO SCH (21:08)
[2023-03-11] MEDS ORDERED: METOPROLOL TARTRATE 1 MG/ML VIAL IV PRN (21:14)
[2023-03-11] MEDS: LANTUS PER UNIT CHARGE SQ SCH (21:40)
[2023-03-12] MEDS: ACETAMINOPHEN 325 MG TAB PO PRN (03:48)
[2023-03-12] MEDS: DICYCLOMINE HCL 10 MG CAP PO PRN (03:49)
[2023-03-12] MEDS: INSULIN HUMAN REGULAR SC SCH ×2 (08:52→12:22)
[2023-03-12] MEDS: APIXABAN 2.5 MG TAB PO SCH (08:53)
[2023-03-12] MEDS: allopurinoL 100 MG TAB PO SCH (08:53)
[2023-03-12] MEDS: CALCITRIOL 0.25 MCG CAPSULE PO SCH (08:53)
[2023-03-12] MEDS: CYANOCOBALAMIN (B-12) 500 MCG TABLET PO SCH (08:53)
[2023-03-12] MEDS: LIDOCAINE 5% 1 PATCH TD SCH ×2 (08:54→09:03)
[2023-03-12] MEDS: NEPHROCAPS PO SCH (08:54)
[2023-03-12] MEDS: DICLOFENAC SOD 1% GEL 100 GM TUBE EXT SCH ×2 (08:54→12:16)
[2023-03-12] MEDS: METOPROLOL TARTRATE 25 MG TAB PO SCH (08:54)
[2023-03-12] MEDS: POTASSIUM CHLORIDE CRTAB 20 MEQ TABCR PO SCH (08:57)
[2023-03-12] MEDS ORDERED: LANTUS PER UNIT CHARGE SQ SCH ×2 (09:00→21:00)
[2023-03-12] MEDS ORDERED: ASPIRIN 81 MG ECTAB PO SCH (09:00)
--- NOTE | 2023-03-12 12:28 | Nephrology Progress Note ---
Date of Service March 12, 2023 Assessment & Plan (1) ESRD on peritoneal dialysis: Plan: CCPD nightly. Rx last evening 5 exchanges of 2.5 L using a combination of 2.5% (2 bags) and 4.5% dextrose. Clearance acceptable. Volume status reasonably controlled. Ultrafiltrating well. UF 1.1 L overnight. Medications appropriately dosed for PD. Unfortunately, if Ayana were to require transition to HD, her R forearm AVF has been unusable for an extended period of time. She had declined vascular surgery follow up for this in the past. She would require TDC placement for HD. (2) Aortic stenosis: Plan: Volume status acceptable. CT surgery evaluation pending. (3) CAD (coronary artery disease): Plan: Severe multivessel disease. CT surgery evaluation at [facility] anticipated. Discussed possible CABG. (4) Anemia: Plan: Tsat 29. Hgb stable. Epogen 32801 units provided yesterday. (5) Chronic kidney disease-mineral and bone disorder: Plan: Calcitriol 0.25 mcg daily. [facility]. Admission and Anticipated Discharge Date Admission Date: March 07, 2023 Subjective No acute events overnight. Ayana expressed understandable anxiety this AM. She tolerated PD last night. No complications with treatment. Some persistent lower extremity edema but overall volume status reasonably controlled. Cardiac catheterization revealed severe multivessel disease. Ayana has severe . She is awaiting transfer for CT surgery evaluation at a tertiary care center ([facility]). She continues to have some brief episodes of AF/AT on telemetry. Review of Systems Review of Systems: All systems reviewed & are unremarkable except as noted in HPI & below Psychiatric: + anxiety Physical Exam Constitutional: WD/WN, vitals as above no acute distress Eyes: + anicteric sclerae Neck: normal visual inspection Thyroid: no thyromegaly Respiratory: no respiratory distress Auscultation: lungs clear to auscultation bilaterally Cardiovascular: Rate/Rhythm: regular rate and regular rhythm Heart Sounds: + murmur Extremities: + edema (b/l LE edema, R>L) and + AV fistula (right forearm without thrill) Gastrointestinal (Abdomen): Inspection/Auscultation: abdomen normal to inspection Percussion/Palpation: abdomen soft; abdomen nontender Musculoskeletal: Extremities: extremities normal to inspection Skin: no rashes, warm and dry Neurologic: no focal motor deficits Psychiatric: Orientation: alert and oriented x 3 Affect: euthymic affect Results & Data Vital Signs (Past 12 Hours) Vital Signs Temp Pulse Pulse Pulse Resp BP Pulse Ox 03/12/23 09:25 37.0 C 74 20 03/12/23 08:21 37.0 C 74 20 127/84 97 03/12/23 07:54 75 03/12/23 04:11 36.8 C 73 18 100 O2 Del Method 03/12/23 09:25 03/12/23 08:21 Room Air 03/12/23 07:54 03/12/23 04:11 Room Air Laboratory Results Laboratory Results - last 24 hr 03/11/23 03/11/23 03/12/23 16:03 20:08 07:16 POC Glucose 157 H 190 H 315 H* 03/12/23 03/12/23 07:17 11:55 POC Glucose 287 H 172 H PG Care Time/CCT Total # of Minutes Spent Total Time Spent with Patient: Total time spent is greater than 50% in coordination of care (as documented) at patient's floor/unit and/or counseling patient: Coding Level of Care Code 54792 SUB INP/OBS CARE 3/50MIN Diagnoses ESRD on peritoneal dialysis N18.6; Z99.2 Aortic stenosis I35.0 CAD (coronary artery disease) I25.10 Coronary Disease-Associated Artery/Lesion type: [place] artery [place] vs. transplanted heart: [place] heart Associated angina: without angina Anemia D64.9 Chronic kidney disease-mineral and bone disorder N18.9; E83.9; M89.9 (3) CAD (coronary artery disease) Coronary Disease-Associated Artery/Lesion type: [place] artery [place] vs. transplanted heart: [place] heart Associated angina: without angina Qualified Code(s): I25.10 - Atherosclerotic heart disease of [place] coronary artery without angina pectoris
--- NOTE | 2023-03-12 17:03 | Discharge Summary ---
Date of Service March 12, 2023 Admission HPI Per Admitting Provider Ayana Mcnulty is a 73 yo F with an array of chronic medical problems including a pmhx of ESRD on PD nightly at home, DMT2, h/o DVT, pafib, chronic leukocytosis, and gastritis who presented to the ER today c/o nausea, vomiting, and weakness. Patient reports that she has been dealing with intermittent n/v since starting dialysis a little over a year ago. Patient was last hospitalized under our service for septicemia d/t e. coli UTI with pyelonephritis. She was discharged to rehab in stable condition. Since that time, it appears that she has been in and out of the ER. Her most recent PCP note from 02/13 indicates that her Humalog was placed on hold and that her Lantus was reduced to 5 units every night with dialysis. Patient has been having symptoms of decreased appetite as well as intermittent nausea and vomiting for the past ~4 days. She denies abdominal pain, fever, chills, diarrhea, coffee ground or hematemesis. She presented to the ER today where her work up was found to be remarkable for a leukocytosis of 23.9, stable anemia with a hgb of 10.5. Her chemistry panel was significant for a hyponatremia of 129, CO2 of 18, magnesium was low at 1.2, and her lactate was elevated at 3.0. She is due for PD tonight. She was medicated with a dose of Cefepime and an order was placed for Vancomycin as well d/t her leukocytosis and elevated lactate. She did not receive any ivf and her only complaint at the time of my assessment is nausea. She has been referred to the hospitalist service for admission for further eval. Principal Diagnosis Non-ST elevated myocardial infarction severe three-vessel coronary artery disease 90% mid LAD at the bifurcation with D2, D2 30% ostial 75% mid circumflex lesion just proximal to the patent stent small to medium OM1 90% proximal small OM 2 95% ostial 70% proximal RCA in-stent restenosis Severe aortic stenosis by echocardiography Systolic heart failure with decreased ejection fraction since last echocardiogram(October 2022) with depressed ejection fraction to 40 to 45% with regional wall motion abnormalities are also new Request for patient to travel to [place] by private vehicle to discuss with honing machine set up operator tool she is previously seen in the past Discharge Exam Patient is awake, she is in no significant distress but she is chronically ill Card exam persist with a systolic ejection murmur Discharge Data Allergies Allergy/AdvReac Type Severity Reaction Status Date / Time heparin Allergy Intermediate Hives Verified 03/07/23 16:52 insulin aspart Allergy Intermediate Hives Verified 03/07/23 16:52 [From Novolog U-100 Insulin aspart] [id number] Reductase AdvReac Severe Elevated Verified 03/07/23 16:53 Inhibitor CPK, ?rhabdomyolysis lisinopril AdvReac Intermediate COUGHING Verified 03/07/23 16:52 meperidine AdvReac Intermediate hallucinate Verified 03/07/23 16:52 s Consultations 03/07/23 16:41 ED Decision to Admit Stat 03/07/23 18:08 Consult Nephrology Routine 03/08/23 15:06 Consult Cardiology Routine Procedures Performed Operation Date: 03/11/23 07:00 Actual Procedures p Cineradiography w/Routine Exam - Samuel Mercer MD p Cath, Coronaries ONLY (no LV) - Samuel Mercer MD s Ultrasound Vascular Access - Samuel Mercer MD Ordered Studies 03/07/23 15:28 CT head/brain wo con Stat 03/11/23 07:07 CL Cath Imgs for PACS use only Routine Hospital Course (1) NSTEMI (non-ST elevated myocardial infarction): Acute cardiology feels may be an event slightly preceding her hospitalization Patient with atypical symptoms echocardiogram with depressed ejection fraction and new regional wall motion abnormality seen Cardiac catheterization performed 03/11 shows multivessel disease with recommendation from cardiology for consideration of revascularization and addressing valve at that time Currently on is on Plavix therapy chronically Patient to be taken directly to [facility] by her family. She is not to utilize any other new medications in hopes that she would arrive there the evening of 03/12/23 (2) Uncontrolled diabetes mellitus, with long-term current use of insulin: Chronic/unstable - Variable BSG control - last a1c was in October and was 7.9% -Continue on sliding scale coverage. (3) Paroxysmal atrial fibrillation: Chronic/stable - Currently examines in NSR - (4) ESRD on peritoneal dialysis: Chronic/stable - Undergoes dialysis nightly - Discussed with Dr. Haile, formal consult placed, she will facilitate PD se ssion we will check basilarly fluid for cell count and culture if needed - Continue Calcitriol and ProRenal tabs Remains hyponatremic (5) Hypomagnesemia: Acute/unstable replete (6) Lactic acidemia: Secondary to her chronic renal failure and likely decreased perfusion (7) Nausea and vomiting: Acute on chronic/stable Now resolved consider if anginal equivalent Plan Patient will need to be referred to tertiary care center for consideration revascularization and to address her aortic stenosis Total Time Total Time Spent Total Time Spent (In Minutes): It required greater than 30 minutes to prepare this patient for discharge Discharge Plan Discharge Items Patient Disposition: Home - Self-Care Reason For Visit: N/V Discharge Diagnosis: Non-ST elevated myocardial infarction severe three-vessel coronary artery disease 90% mid LAD at the bifurcation with D2, D2 30% ostial 75% mid circumflex lesion just proximal to the patent stent small to medium OM1 90% proximal small OM 2 95% ostial 70% proximal RCA in-stent restenosis Severe aortic stenosis by echocardiography Systolic heart failure with decreased ejection fraction since last echocardiogram(October 2022) with depressed ejection fraction to 40 to 45% with regional wall motion abnormalities are also new Request for patient to travel to [place] by private vehicle to discuss with honing machine set up operator tool she is previously seen in the past Activity: Per Instructions section Activity Comment: Limit strenuous activity, Non-emergency contact: Etiologist Call non-emergency contact if: your symptoms worsen Follow-up/Referrals: Elizabeth Schreiber MD [Primary Care Provider] - Diet: Dialysis Renal Addtl Attending Provider Instructions: I understand that you and your family wish for to go to [place] and are going to travel there by private vehicle I understand you are going to [place] as you feel there is some continuity of care with your physicians there however this is a risk to you to travel in private vehicle with the changes that we found within your heart and how you are heart valve has progressively gotten more narrow Please take caution if you develop any symptoms along the way such as chest pain or pressure sweatiness nausea or shortness of breath at these do occur please Deivert to the most local hospital for emergent care Pending Studies at Discharge: No Stand-Alone Forms: [facility] Hers, Smoking Cessation Medications and DC Order Prescriptions: New aspirin 81 mg Tablet,Delayed Release (Dr/Ec) 81 mg PO QAM Qty: 30 0RF Continued (DME) SendtoNewsTouch Ultra Test Strip See Rx Instructions .Route Qty: 300 3RF Rx Instructions: Test Blood Sugars Three Times a Day isosorbide mononitrate 60 mg tablet extended release 24 hr 60 mg PO QAM Qty: 90 3RF (DME) pen needle, diabetic [BD Ultra-Fine Jesenia Pen Needle] 32 gauge x 5/32" needle See Rx Instructions .Route Qty: 300 3RF Rx Instructions: Use 3 per day nystatin 100,000 unit/gram cream 1 applic topical DAILY Qty: 30 1RF allopurinol [Zyloprim] 100 mg tablet 100 mg PO QAM Qty: 90 3RF clopidogrel [Plavix] 75 mg tablet 75 mg PO QAM Qty: 90 3RF Rx Instructions: Brand name only ([facility] [place] FreeStyle Makayla 2 [place] Misc See Rx Instructions .MEDSUPPLY Qty: 1 0RF Rx Instructions: As directed ([facility] [place]) FreeStyle Makayla 2 Sensor Kit See Rx Instructions .MEDSUPPLY Qty: 2 11RF Rx Instructions: As directed to check blood sugars diphenoxylate-atropine [Lomotil] 2.5-0.025 mg tablet 1 tab PO BID PRN (Reason: diarrhea) Qty: 30 3RF calcitriol 0.25 mcg capsule 0.25 mcg PO QAM insulin glargine [Lantus Solostar U-100 Insulin] 100 unit/mL (3 mL) insulin pen 10 unit SUBCUT DAILY Rx Instructions: PER PT "HAVEN'T TAKEN FOR 4-5 DAYS, HAVEN'T BEEN FEELING WELL". ProRenal 8 mg iron-800 mcg-1,000 unit tablet 1 tab PO DAILY melatonin 3 mg Tablet 3 mg PO HS PRN (Reason: sleep) Qty: 30 0RF cyanocobalamin (vitamin B-12) 500 mcg Tablet 1,000 mcg PO QAM Qty: 60 0RF potassium chloride 20 mEq tablet extended release 20 meq PO BID Changed metoprolol tartrate 25 mg tablet 12.5 mg PO BID Qty: 60 0RF Held Eliquis 2.5 mg tablet 2.5 mg PO BID Qty: 60 0RF Hold Instructions: Resume on 03/19/23. Discontinued dicyclomine 10 mg capsule 10 mg PO TID PRN (Reason: Abdominal Discomfort) Qty: 90 2RF loratadine 10 mg tablet 10 mg PO DAILY Qty: 90 3RF Discharge Orders: Discharge Order (Routine); Ordered 03/12/23 Ordered By: Juan Carlos Hawkins Admission Data Admit Date/Time: 03/07/23 18:08 Attending Provider: Juan Carlos Hawkins Admit Provider: Placido Quezada Primary Care Provider: Elizabeth Schreiber Other Providers: Placido Quezada ; Agnieszka Haile ; Samuel Mercer Other Interventions: Discharge Summary Assessment (RN) Last Done: 03/12/23 13:52 Coding Level of Care Code 14983 INP/OBS DISCH >30 MIN Diagnoses NSTEMI (non-ST elevated myocardial infarction) I21.4 Uncontrolled diabetes mellitus, with long-term current use of insulin E11.65; Z79.4 Paroxysmal atrial fibrillation I48.0 ESRD on peritoneal dialysis N18.6; Z99.2 Hypomagnesemia E83.42 Lactic acidemia E87.20 Nausea and vomiting R11.2
--- NOTE | 2023-03-13 00:31 | Cardiology Progress Note ---
Date of Service March 13, 2023 Assessment & Plan (1) CAD (coronary artery disease): Plan: NSTEMImultivessel CAD (90% mid LAD, 75% mid circumflex, 70% proximal RCA, 90% proximal OM1). 2. Severe aortic stenosis 3. 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 Paroxysmal AF, ATon Eliquis 5. End-stage renal disease on peritoneal dialysis 6. Type 2 diabetes 7. Anemia Patient has complex cardiac disease that will require further evaluation/ management at a tertiary center. With her multivessel CAD, LV dysfunction and diabetes feel CABG should be at least considered. Ultimately may not be a surgical candidate in which case would need TAVR and at least PCI of LAD. With presenting NSTEMI would favor inpatient evaluation. After further discussion with patient and family this morning patient agreeable to transfer to [facility] for AVR/revascularization options. Arrangements made for transfer. Later in the afternoon patient stated did not feel comfortable going to [facility] and wished to return to [facility] where he previously had PCI. She would prefer TAVR/PCI To be discharged today and family will take her to [place]. On discharge continue aspirin, Plavix, Eliquis. Follow-up with Dr. Knott on return Admission and Anticipated Discharge Date Admission Date: March 07, 2023 Subjective No acute events overnight. She tolerated PD last night. No chest pain this morning. Continues to have brief episodes of SVT overnight Review of Systems Review of Systems: All systems reviewed & are unremarkable except as noted in HPI & below Physical Exam Physical Exam: General: Comfortable, HEENT: Sclerae anicteric Lungs: Clear to auscultation bilaterally, Cardiac: Regular rate and rhythm, 3/6 systolic ejection murmur Vascular: Left radial artery access site with no ecchymosis, hematoma. Distal sensation intact Abdomen: Soft, nontender Extremities: Well perfused, no peripheral edema Neuro: Nonfocal Psych: Alert orient x3, normal affect and mood Results & Data Vital Signs (Past 12 Hours) Vital Signs Temp Pulse Pulse Resp BP BP BP 03/12/23 13:52 97.9 F 74 72 18 130/83 99/66 L 104/62 Pulse Ox 03/12/23 13:52 97 PG Care Time/CCT Total # of Minutes Spent Total Time Spent with Patient: Total time spent is greater than 50% in coordination of care (as documented) at patient's floor/unit and/or counseling patient: Coding Level of Care Code 46891 SUB INP/OBS CARE MIN Diagnoses CAD (coronary artery disease) I25.10 Coronary Disease-Associated Artery/Lesion type: [place] artery [place] vs. transplanted heart: [place] heart Associated angina: without angina (1) CAD (coronary artery disease) Coronary Disease-Associated Artery/Lesion type: [place] artery [place] vs. transplanted heart: [place] heart Associated angina: without angina Qualified Code(s): I25.10 - Atherosclerotic heart disease of [place] coronary artery without angina pectoris
[2023-03-13] MEDS ORDERED: INSULIN HUMAN REGULAR SC SCH (02:00)
== END 2023-03-12 15:13 | disposition home or self-care (01) | DRG 280 ==
LOC: ED 15:09 → SUATTDRO 18:08 → 3W 18:08 → 2S 03-08 14:55
PROC: CLB.CCO (2023-03-11 07:00)